=== PATIENT | female | born 1965 | race Caucasian/White ===

== ENCOUNTER 2020-03-06 14:29 | Emergency (ER) | payer MEDICAID, SELFPAY ==
[2020-03-06 15:48] VITALS: BP 155/65; PULSE 67; RESP 18; TEMP 37.9; O2SAT 100; BMI 37.7
--- NOTE | 2020-03-06 17:22 | ECG_ITS ---
Test Reason : ABDOMINAL PAIN Blood Pressure : / mmHG Vent. Rate : 068 BPM Atrial Rate : 068 BPM P-R Int : 206 ms QRS Dur : 092 ms QT Int : 418 ms P-R-T Axes : 005 079 045 degrees QTc Int : 444 ms Normal sinus rhythm Normal ECG When compared with ECG of 20-JUN-2019 11:30, No significant change was found Referred By: Syeda Cuenca Electronically Signed By:YOGI SU MD
--- NOTE | 2020-03-06 17:23 | XR_ITS ---
EXAMINATION: XR CHEST CLINICAL INFORMATION: Abdominal pain COMPARISON: CT chest 02/14/2020 TECHNIQUE: Frontal portable view of the chest was obtained. 5:24 PM FINDINGS: No significant abnormality is noted involving the heart, lungs, mediastinum, bony thorax or soft tissues. IMPRESSION: Unremarkable examination.
--- NOTE | 2020-03-06 17:53 | ED_ITS ---
HPI - Nausea/Vomiting/Diarrhea General Chief complaint: Abdominal Pain Stated complaint: ABD PAIN Time Seen by Provider: 03/06/20 17:22 Source: patient Mode of arrival: ambulatory Limitations: no limitations History of Present Illness HPI Narrative: 55-year-old female presents to the emergency department for nausea, vomiting, diarrhea and headache. She does have dialysis Thursday and Thursday and missed her last dialysis appointment because she did not feel well. She does not describe any fevers, chills, Chest pain and pressure, palpitations, abdominal distension, dysuria, hematuria, and edema. MD elicited complaint: nausea, vomiting and diarrhea Onset (ago): day(s) ( 1) Description of vomiting: watery and bilious Description of diarrhea: watery Associated nausea: Yes Associated abdominal pain: No Pain consistency: constant ( headache) Severity: moderate Pain scale (0-10): 8 Relieving factors: none Associated symptoms: denies other symptoms Related Data Previous Rx's Medication Instructions Recorded [id number]-[id number]-[id number] 1 cap PO Q8H PRN #7 cap 03/06/20 [Fioricet] Allergies Allergy/AdvReac Type Severity Reaction Status Date / Time No Known Allergies Allergy Verified 03/06/20 15:56 [No Known Allergies*] Review of Systems Review of Systems: Constitutional: positive headache, No Weight loss, No Fever, No Chills, No Night Sweats, No Fatigue, No Malaise ENT/Mouth: No Hearing loss, No Ear Pain, No Nasal Congestion, No Sinus Pain, No Hoarseness, No sore throat, No Rhinorrhea, No Swallowing Difficulty Eyes: No Eye Pain, No Swelling, No Redness, No Foreign Body, No Discharge, No Vision Changes Cardiovascular: No Chest Pain, No SOB, No Dyspnea on Exertion, No Orthopnea, No Edema, No Palpitations Respiratory: No Cough, No Sputum, No Wheezing, No Smoke Exposure, No Dyspnea Gastrointestinal: Positive Nausea, Positive Vomiting, positive Diarrhea, positive abdominal Pain, No Hematochezia, No Melena Genitourinary: no irregular bleeding, No Dysuria, No Urinary Frequency, No Hematuria, No Urinary Incontinence, No Urgency, No Flank Pain, No Urinary Flow Changes, No Hesitancy Musculoskeletal: No joint pain, No Myalgias, No Joint Swelling Skin: No Skin Lesions, No rash Neuro: No Weakness, No Numbness, No Paresthesias, No Loss of Consciousness, No Dizziness, No Headache Psych: No Anxiety/Panic, No Depression, No SI/HI/AH/VH, No Social Issues, Heme/Lymph: No Bruising, No Bleeding,No Lymphadenopathy Endocrine: No Polyuria, No Polydipsia, No Temperature Intolerance Gastrointestinal: Gastrointestinal: Reports nausea PMFSH Past Medical History Attestation statement: The following information was validated with the patient. Medical History Diabetes Dialysis patient HTN (hypertension) Renal failure (ARF), acute on chronic Social History Social History Alcohol intake: never Smoking Status: Never smoker Use of substances other than those prescribed or required for medical reasons: No Advance Directives: No Advance Directives Information Provided: No Physical Exam Vital Signs: Vital Signs: Vital Signs Temp Pulse Resp BP Pulse Ox 03/06/20 22:04 98.9 F 70 14 152/59 H 95 03/06/20 20:20 98.7 F 67 18 97/41 L 99 03/06/20 15:48 100.3 F 67 18 155/65 H 100 Body Mass Index 37.7 Appearance: Alert. Oriented X3. No acute distress. Eyes: Pupils equal, round and reactive to light. ENT: Pharynx normal. Neck: Normal inspection. Neck supple. CVS: Normal heart rate and rhythm. Pulses normal. Respiratory: No respiratory distress. Breath sounds normal. Abdomen: Soft and nontender. Skin: Skin warm and dry. Normal skin color. Normal skin turgor. Extremities: No lower extremity edema. No lower extremity edema. Neuro: Oriented X 3. No motor deficit. No sensory deficit. Course Course Course Narrative: patient did miss dialysis, is an insulin-dependent diabetic, will order Tylenol, Toradol, and Zofran. Fluids not ordered at this time because she is a dialysis patient. EKG is normal sinus, sodium 131, BUN 56, creatinine 5.5 lab values are similar to prior values. We will call out to nephrology for guidance. Discussion with Dr. Jain, review of lab values and patient presentation, plan is for patient to be discharged home and to follow-up with dialysis tomorrow. We will discharge home with Anjelica. Patient verbalized understanding of and agrees to plan of care discharge home. conference interpreter utilized for all correspondence, [employer] will translate utilized for discharge instructions. Consultations Consultation #1: Nephrology Cristobal Time: 21:27 MDM - Nausea/Vomiting/Diarrhea MDM Narrative Medical decision making narrative: Electrolyte imbalance, viral syndrome, ACS Differential Diagnosis Differential diagnosis: Likely gastroenteritis Medical Records Attestation: I reviewed the patient's medical records. Lab Data Attestation: I reviewed the patient's lab results. Result diagrams: 03/06/20 18:36 03/06/20 18:36 Labs: Lab Results 03/06/20 03/06/20 03/06/20 Range/Units 18:36 18:36 18:36 WBC 10.8 (4.8-10.8) X10*3/uL RBC 3.22 L (4.20-5.50) X10*6/uL Hgb 10.1 L (12.0-16.0) g/dl Hct 28.5 L (37-47) % MCV 88.5 (80-98) fL MCH 31.4 (27.0-33.0) pg MCHC 35.4 H (31.0-35.0) g/dl RDW 13.5 (11.0-16.0) % Plt Count 188 (160-400) X10*3/uL MPV 10.9 (9.4-12.3) fL Immature Gran % (Auto) 0.4 (0.0-0.4) % Neut % (Auto) 73.6 H (45-73) % Lymph % (Auto) 15.5 L (20-40) % Antelope % (Auto) 5.2 (2-11) % Eos % (Auto) 4.9 H (0-4) % Baso % (Auto) 0.4 (0-2) % Lymph # (Auto) 1.7 (1.2-4.9) X10*3/uL Antelope # (Auto) 0.6 (0.1-1.2) X10*3/uL Eos # (Auto) 0.5 H (0.0-0.4) X10*3/uL Baso # (Auto) 0.0 (0.0-0.2) X10*3/uL Abs Immat Gran (auto) 0.04 H (0.00-0.03) X10*3/uL Absolute Neuts (auto) 8.0 (2.0-8.3) X10*3/uL Absolute Nucleated RBC 0.000 (0.0-0.012) X10*3/uL Nucleated RBC % (auto) 0.0 (0.0-0.2) /100WBC PT 11.0 (10.8-13.0) SEC INR 0.9 (0.9-1.1) Sodium 131 L (135-145) mmol/L Potassium 4.3 (3.3-5.1) mmol/l Chloride 97 (96-108) mmol/L Carbon Dioxide 23 (22-29) mmol/L Anion Gap 15 (12-20) BUN 56 H (9-16) mg/dL Creatinine 5.55 H* (0.5-1.4) mg/dL Estim Creat Clear Calc 12.8 Estimated GFR 8 Random Glucose 292 H (60-115) mg/dL Lactic Acid (0.5-2.0) mmol/L Calcium 8.9 (8.4-10.2) mg/dL Total Bilirubin (0.0-1.0) mg/dL Direct Bilirubin (0.0-0.5) mg/dL AST (5-31) U/L ALT (0-31) U/L Alkaline Phosphatase (39-117) U/L Total Protein (6.5-8.0) g/dL Albumin (3.5-5.0) g/dL Lipase (8-78) U/L 03/06/20 03/06/20 Range/Units 18:36 18:36 WBC (4.8-10.8) X10*3/uL RBC (4.20-5.50) X10*6/uL Hgb (12.0-16.0) g/dl Hct (37-47) % MCV (80-98) fL MCH (27.0-33.0) pg MCHC (31.0-35.0) g/dl RDW (11.0-16.0) % Plt Count (160-400) X10*3/uL MPV (9.4-12.3) fL Immature Gran % (Auto) (0.0-0.4) % Neut % (Auto) (45-73) % Lymph % (Auto) (20-40) % Antelope % (Auto) (2-11) % Eos % (Auto) (0-4) % Baso % (Auto) (0-2) % Lymph # (Auto) (1.2-4.9) X10*3/uL Antelope # (Auto) (0.1-1.2) X10*3/uL Eos # (Auto) (0.0-0.4) X10*3/uL Baso # (Auto) (0.0-0.2) X10*3/uL Abs Immat Gran (auto) (0.00-0.03) X10*3/uL Absolute Neuts (auto) (2.0-8.3) X10*3/uL Absolute Nucleated RBC (0.0-0.012) X10*3/uL Nucleated RBC % (auto) (0.0-0.2) /100WBC PT (10.8-13.0) SEC INR (0.9-1.1) Sodium (135-145) mmol/L Potassium (3.3-5.1) mmol/l Chloride (96-108) mmol/L Carbon Dioxide (22-29) mmol/L Anion Gap (12-20) BUN (9-16) mg/dL Creatinine (0.5-1.4) mg/dL Estim Creat Clear Calc Estimated GFR Random Glucose (60-115) mg/dL Lactic Acid 1.0 (0.5-2.0) mmol/L Calcium (8.4-10.2) mg/dL Total Bilirubin 1.3 H (0.0-1.0) mg/dL Direct Bilirubin 0.5 (0.0-0.5) mg/dL AST 10 (5-31) U/L ALT 11 (0-31) U/L Alkaline Phosphatase 149 H (39-117) U/L Total Protein 7.5 (6.5-8.0) g/dL Albumin 4.0 (3.5-5.0) g/dL Lipase 29 (8-78) U/L Imaging Data Chest x-ray: Attestation: I personally reviewed and interpreted this imaging study as follows: Radiologist's impression: TECHNIQUE: Frontal portable view of the chest was obtained. 5:24 PM FINDINGS: No significant abnormality is noted involving the heart, lungs, mediastinum, bony thorax or soft tissues. IMPRESSION: Unremarkable examination. ECG Data Attestation: I personally reviewed and interpreted this ECG as follows: ECG interpretation date: 03/06/20 ECG interpretation time: 17:40 Interpretation: Vent. Rate : 068 BPM Atrial Rate : 068 BPM P-R Int : 206 ms QRS Dur : 092 ms QT Int : 418 ms P-R-T Axes : 005 079 045 degrees QTc Int : 444 ms Normal sinus rhythm Anterior infarct , age undetermined Abnormal ECG When compared with ECG of 20-JUN-2019 11:30, No significant change was found Discharge Plan Discharge Clinical Impression: Headache, End stage renal disease on dialysis Patient Disposition: Home, Self-Care Instructions: Acute Headache (ED), End Stage Kidney Disease (ED) Additional Instructions: please follow-up with dialysis tomorrow. For headache, use Fioricet as needed. If symptoms persist follow-up with primary care provider or return to the emergency department Thank you for choosing this emergency department for evaluation. Please follow-up with primary care physician as needed. Return to the emergency de partment for any new, concerning, or worsening symptoms. Prescriptions: New riggcinrcm-vugjnqsvgpqwh-mhar [Fioricet] 50-300-40 mg capsule 1 cap PO Q8H PRN (Reason: pain) Qty: 7 RF: 0 Interventions: ED Discharge Assessment Last Done: 03/06/20 22:10 Discharge Date/Time: 03/06/20 22:11
--- NOTE | 2020-03-06 18:33 | PC.NURSE ---
two attempts at iv access unsuccessful, has fistula in l arm. provider aware. pct in to draw labs.
[2020-03-06 18:46] LABS: Basophils Percent Auto 0.4 % (0-2); Eosinophils Absolute Auto 0.5 X10*3/uL (0.0-0.4); Eosinophils Percent Auto 4.9 % (0-4); Hematocrit 28.5 % (37-47); Hemoglobin 10.1 g/dl (12.0-16.0); Imm Gran Abs Auto 0.04 X10*3/uL (0.00-0.03); Imm Gran Pct Auto 0.4 % (0.0-0.4); Lymphocytes Absolute Auto 1.7 X10*3/uL (1.2-4.9); Lymphocytes Percent Auto 15.5 % (20-40); MANUAL DIFF FLAG NO; Mean Corpuscular HGB Conc 35.4 g/dl (31.0-35.0); Mean Corpuscular Hemoglobin 31.4 pg (27.0-33.0); Mean Corpuscular Volume 88.5 fL (80-98); Mean Platelet Volume 10.9 fL (9.4-12.3); Monocytes Absolute Auto 0.6 X10*3/uL (0.1-1.2); Monocytes Percent Auto 5.2 % (2-11); Neutrophils Percent Auto 73.6 % (45-73); Platelet Count 188 X10*3/uL (160-400); Red Blood Count 3.22 X10*6/uL (4.20-5.50); Red Cell Distribution Width 13.5 % (11.0-16.0); White Blood Count 10.8 X10*3/uL (4.8-10.8)
[2020-03-06 18:54] LABS: INTERNATIONAL NORM RATIO 0.9 (0.9-1.1)
[2020-03-06 19:11] LABS: Alanine Aminotransferase 11 U/L (0-31); Alkaline Phosphatase 149 U/L (39-117); Aspartate Amino Transferase 10 U/L (5-31); Bilirubin Direct 0.5 mg/dL (0.0-0.5); Bilirubin Total 1.3 mg/dL (0.0-1.0); Lipase 29 U/L (8-78); Total Protein 7.5 g/dL (6.5-8.0)
[2020-03-06 19:56] LABS: Anion Gap 15 (12-20); Blood Urea Nitrogen 56 mg/dL (9-16); Calcium 8.9 mg/dL (8.4-10.2); Carbon Dioxide 23 mmol/L (22-29); Chloride 97 mmol/L (96-108); Creatinine Clr Calc Pharmacy 12.8; Estimated Glomerular Filt Rate 8; Glucose Random 292 mg/dL (60-115); Potassium 4.3 mmol/l (3.3-5.1); Sodium 131 mmol/L (135-145)
[2020-03-06 20:20] VITALS: BP 97/41; PULSE 67; RESP 18; TEMP 37.1; O2SAT 99
[2020-03-06] MEDS: Ketorolac Tromethamine 30 MG/ML VIAL IV (20:24)
[2020-03-06] MEDS: Acetaminophen 325 MG TABLET 650 MG PO (20:24)
[2020-03-06] MEDS: ondansetron HCL 4 MG/2 ML VIAL IVPUSH (20:24)
[2020-03-06 22:04] VITALS: BP 152/59; PULSE 70; RESP 14; TEMP 37.2; O2SAT 95
== END 2020-03-06 22:11 | disposition home or self-care (01) ==
PROVIDERS: Nurse Practitioner Family; Emergency Provider Internal Medicine; PCP Internal Medicine
DX: R51.9 Headache, unspecified (principal); E11.22 Type 2 diabetes mellitus with diabetic chronic kidney disease; I12.0 Hypertensive chronic kidney disease with stage 5 chronic kidney disease or end stage renal disease; N18.6 End stage renal disease; Z99.2 Dependence on renal dialysis
CPT/HCPCS: 36415; 71045; 80048; 80076; 83605; 83690; 85025; 85610; 87040; 93005; 96361; 96374; 96375; 96376; 99284; J1885; J2405

== ENCOUNTER 2020-03-10 18:17 | Emergency (ER) | payer MEDICAID, SELFPAY ==
[2020-03-10 19:11] VITALS: BP 183/67; PULSE 77; RESP 18; TEMP 36.6; O2SAT 100; BMI 37.7
[2020-03-10 20:20] VITALS: BP 117/65; PULSE 81; RESP 18; TEMP 36.8; O2SAT 98
--- NOTE | 2020-03-10 20:31 | ECG_ITS ---
Test Reason : HEDACHE Blood Pressure : / mmHG Vent. Rate : 076 BPM Atrial Rate : 076 BPM P-R Int : 208 ms QRS Dur : 088 ms QT Int : 400 ms P-R-T Axes : 043 081 035 degrees QTc Int : 450 ms Normal sinus rhythm Possible Left atrial enlargement Borderline ECG When compared with ECG of 06-MAR-2020 17:40, No significant change was found Referred By: Tresa Ashraf Electronically Signed By:YOGI SU MD
--- NOTE | 2020-03-10 20:33 | CT_ITS ---
EXAMINATION: CT HEAD WITHOUT CONTRAST CLINICAL INFORMATION: Continued headache after trauma COMPARISON: 02/14/2020 TECHNIQUE: Contiguous axial imaging was performed from the skull base to vertex without intravenous administration of contrast. This CT examination was performed using dose optimization techniques as appropriate, variously including the following: *Automated exposure control *Adjustment of mA and/or kV according to patient size (this includes techniques or standardized protocols for targeted exams where dose is matched to indication/reason for exam; i.e. extremities or head) *Use of iterative reconstruction technique DLP: 879 mGy-cm FINDINGS: There is no evidence of acute intracranial hemorrhage or territorial infarction. No abnormal mass effect or midline shift is seen. [place] to white matter differentiation is well preserved. No extra-axial fluid collections are identified. The ventricles are normal in size. There is no abnormal attenuation within the brain parenchyma. The osseous structures and soft tissues are normal. The mastoid air cells and visualized portions of the paranasal sinuses are well aerated. IMPRESSION: No acute intracranial pathology.
[2020-03-10] MEDS: Acetaminophen 325 MG TABLET 650 MG PO (21:23)
[2020-03-10] MEDS: diphenhydrAMINE HCL 50 MG/ML VIAL 25 MG IVPUSH (21:25)
[2020-03-10] MEDS: 0.9 % Sodium Chloride 1,000 ML 999 ML IVCONT (21:26)
[2020-03-10 21:33] LABS: Basophils Percent Auto 0.4 % (0-2); Eosinophils Absolute Auto 0.6 X10*3/uL (0.0-0.4); Eosinophils Percent Auto 6.4 % (0-4); Hematocrit 27.4 % (37-47); Hemoglobin 9.1 g/dl (12.0-16.0); Imm Gran Abs Auto 0.06 X10*3/uL (0.00-0.03); Imm Gran Pct Auto 0.6 % (0.0-0.4); Lymphocytes Absolute Auto 1.9 X10*3/uL (1.2-4.9); Lymphocytes Percent Auto 20.6 % (20-40); Mean Corpuscular HGB Conc 33.2 g/dl (31.0-35.0); Mean Corpuscular Hemoglobin 31.1 pg (27.0-33.0); Mean Corpuscular Volume 93.5 fL (80-98); Mean Platelet Volume 10.4 fL (9.4-12.3); Monocytes Absolute Auto 0.6 X10*3/uL (0.1-1.2); Monocytes Percent Auto 6.3 % (2-11); Neutrophils Absolute Auto 6.1 X10*3/uL (2.0-8.3); Neutrophils Percent Auto 65.7 % (45-73); Platelet Count 217 X10*3/uL (160-400); Red Blood Count 2.93 X10*6/uL (4.20-5.50); Red Cell Distribution Width 13.7 % (11.0-16.0); White Blood Count 9.3 X10*3/uL (4.8-10.8)
[2020-03-10] MEDS: Metoclopramide HCl 10 MG/2 ML VIAL IVPUSH ×2 (21:33→22:34)
[2020-03-10 21:34] LABS: MANUAL DIFF FLAG NO
[2020-03-10 22:07] LABS: Alanine Aminotransferase 12 U/L (0-31); Albumin Level 3.7 g/dL (3.5-5.0); Alkaline Phosphatase 148 U/L (39-117); Anion Gap 13 (12-20); Aspartate Amino Transferase 17 U/L (5-31); Bilirubin Direct 0.2 mg/dL (0.0-0.5); Bilirubin Total 0.4 mg/dL (0.0-1.0); Blood Urea Nitrogen 37 mg/dL (9-16); Calcium 8.8 mg/dL (8.4-10.2); Carbon Dioxide 29 mmol/L (22-29); Chloride 101 mmol/L (96-108); Creatinine Clr Calc Pharmacy 17.1; Estimated Glomerular Filt Rate 11; Glucose Random 218 mg/dL (60-115); Magnesium 1.9 mg/dL (1.6-2.6); Potassium 4.8 mmol/l (3.3-5.1); Sodium 138 mmol/L (135-145); Total Protein 6.9 g/dL (6.5-8.0)
[2020-03-10 22:12] LABS: Troponin-I High Sensitivity 90.2 ng/L (<3.5-17.0)
[2020-03-10] MEDS: Lidocaine HCl 1 % 20 ML VIAL SUBCUT (22:23)
--- NOTE | 2020-03-10 22:36 | PC.NURSE ---
dr camacho at bedside placed 18g eg r side. pt tolerated well
[2020-03-10 22:47] VITALS: BP 192/68; PULSE 85; RESP 16; O2SAT 95
[2020-03-10 23:11] LABS: Glucose Urine UA 250 MG/DL (NEG); Leukocyte Esterase Urine NEG (NEG); Nitrite Urine NEG (NEG); PH 7.5 (5.0-8.0); Urine Blood TRACE (NEG); Urine Ketones NEG (NEG); Urine Protein 2+ MG/DL (NEG-TRACE)
[2020-03-10 23:14] LABS: Appearance Urine CLEAR; Color Urine YELLOW
[2020-03-10 23:27] LABS: Bacteria Urine 1+ /LPF; Mucus Urine 1+ /LPF; Squamous Epithelial Cell Urine 1+ /LPF
--- NOTE | 2020-03-10 23:33 | ED_ITS ---
HPI - Headache General Chief Complaint: Headache <ADRIAN Wiggins - Last Filed: 03/11/20 01:05> Stated Complaint: HEADACHE <ADRIAN Wiggins - Last Filed: 03/11/20 01:05> Time Seen by Provider: 03/10/20 19:52 <ADRIAN Wiggins - Last Filed: 03/11/20 01:05> Source: patient <ADRIAN Wiggins Last Filed: 03/11/20 01:05> Mode of arrival: ambulatory <ADRIAN Wiggins Last Filed: 03/11/20 01:05> History of Present Illness HPI Narrative: 55 year old female with a PMH diabetes, CKD on HD M/W/F, HTN, presenting to ED complaining of continued/ worsening headache x 1 week S/P fall with head trauma on 02/13. Patient reports she was seen and treated in the ED on 02/13 after mechanical fall, had negative head CT & CT chest, however reports continued pain with generalized fatigue and lightheadedness. Patient was also evaluated in the ED on 03/06 for similar complaints was discharged home with Fioricet which she has been taking without relief. Denies visual changes / loss, nausea /vomiting, CP/SOB, numbness/ tingling, paresthesias <ADRIAN Wiggins - Last Filed: 03/11/20 01:05> MD elicited complaint: headache <ADRIAN Wiggins - Last Filed: 03/11/20 01:05> Pertinent past history: recent trauma <ADRIAN Wiggins Last Filed: 03/11/20 01:05> Related Data Home Medications: Previous Rx's Medication Instructions Recorded [id number]-ymlgvvmvgfsyx-tnpn 1 cap PO Q8H PRN #7 cap 03/06/20 [Fioricet] meclizine 25 mg PO TID PRN #14 tab 03/11/20 <ADRIAN Wiggins - Last Filed: 03/11/20 01:05> Allergies/Adverse Reactions: Allergies Allergy/AdvReac Type Severity Reaction Status Date / Time No Known Allergies Allergy Verified 03/06/20 15:56 [No Known Allergies*] <ADRIAN Wiggins - Last Filed: 03/11/20 01:05> Review of Systems Review of Systems: Constitutional: No Weight loss, No Fever, No Chills, No Night Sweats, No Fatigue, No Malaise ENT/Mouth: No Hearing loss, No Ear Pain, No Nasal Congestion, No Sinus Pain, No sore throat Eyes: No Eye Pain, No Foreign Body, No Discharge, No Vision Changes Cardiovascular: No Chest Pain, No SOB, No Dyspnea on Exertion Respiratory: No Cough, No Sputum, No Wheezing Gastrointestinal: No Nausea, No Vomiting, No Diarrhea, No Abdominal pain Musculoskeletal: No joint pain, No Myalgias, No Joint Swelling Skin: No Skin Lesions, No rash Neuro: No Weakness, No Numbness, No Paresthesias, No Loss of Consciousness,+ lightheadedness, +Headache <ADRIAN Wiggins - Last Filed: 03/11/20 01:05> Yes all other systems are reviewed and are negative <ADRIAN Wiggins - Last Filed: 03/11/20 01:05> Neurologic: Denies Sensory deficit (Neuro) <ADRIAN Wiggins - Last Filed: 03/11/20 01:05> [facility] Past Medical History Attestation statement: The following information was validated with the patient. <ADRIAN Wiggins - Last Filed: 03/11/20 01:05> Source: old records reviewed, obtained from family and nursing notes reviewed <ADRIAN Wiggins - Last Filed: 03/11/20 01:05> Medical History: Medical History Diabetes Dialysis patient HTN (hypertension) Renal failure (ARF), acute on chronic <ADRIAN Wiggins - Last Filed: 03/11/20 01:05> Social History Social History: Social History Alcohol intake: never Smoking Status: Never smoker Use of substances other than those prescribed or required for medical reasons: No Advance Directives: No Advance Directives Information Provided: Yes <ADRIAN Wiggins - Last Filed: 03/11/20 01:05> Physical Exam Vital Signs: Vital Signs: Vital Signs Temp Pulse Resp BP Pulse Ox 03/11/20 00:12 182/77 H 95 03/10/20 22:47 85 16 192/68 H 95 03/10/20 20:20 98.2 F 81 18 117/65 98 03/10/20 19:11 97.8 F 77 18 183/67 H 100 Body Mass Index 37.7 <ADRIAN Wiggins - Last Filed: 03/11/20 01:05> Vital Signs: Vital Signs Temp Pulse Resp BP Pulse Ox 03/11/20 00:12 182/77 H 95 03/10/20 22:47 85 16 192/68 H 95 03/10/20 20:20 98.2 F 81 18 117/65 98 03/10/20 19:11 97.8 F 77 18 183/67 H 100 Body Mass Index 37.7 <Mary Tidwell MD - Last Filed: 03/11/20 03:17> Const: General: cooperative and healthy appearing <ADRIAN Wiggins - Last Filed: 03/11/20 01:05> Orientation/consciousness: patient oriented x3 <ADRIAN Wiggins - Last Filed: 03/11/20 01:05> Limitations: no limitations <ADRIAN Wiggins - Last Filed: 03/11/20 01:05> HENMT: Head: Yes normal to inspection and Yes No palpable skull fracture present <ADRIAN Wiggins - Last Filed: 03/11/20 01:05> Ears: hearing grossly normal bilaterally <ADRIAN Wiggins - Last Filed: 1 01:05> General nose exam: Normal external nose present <ADRIAN Wiggins - Last Filed: 03/11/20 01:05> Face and sinus: Yes normal facial exam <ADRIAN Wiggins - Last Filed: 03/11/20 01:05> Mouth: Normal oral and palatal mucosa present <ADRIAN Wiggins - Last Filed: 03/11/20 01:05> Throat: Yes posterior oropharynx normal <ADRIAN Wiggins - Last Filed: 03/11/20 01:05> Eyes: General: appearance normal, both eyes and all related structures <ADRIAN Wiggins - Last Filed: 03/11/20 01:05> Pupils: Equal, round and reactive pupils present <ADRIAN Wiggins - Last Filed: 03/11/20 01:05> EOM: EOMs intact bilaterally <Tresa Ashraf, [facility] Last Filed: 03/11/20 01:05> Neck: Neck: Yes normal visual inspection, Yes full ROM and Yes no meningeal signs <Tresadagoberto Ashraf [place] - Last Filed: 03/11/20 01:05> Resp: Effort & Inspection: normal respiratory effort <Tresa Pascale [facility] Last Filed: 03/11/20 01:05> Auscultation: clear to auscultation bilaterally, no crackles, no rales and no r honchi <Tresadagoberto Ashraf [place] - Last Filed: 03/11/20 01:05> Cardio: Rate: regular rate <Tresa Ashraf [facility] Last Filed: 03/11/20 01:05> Heart sounds: S1 normal heart sound present and S2 normal heart sound present <Tresadagoberto Ashraf GA - Last Filed: 03/11/20 01:05> GI: Inspection: Yes normal to inspection <Tresa Ashraf GA - Last Filed: 03/11/20 01:05> Palpation (GI): Soft to palpation, nontender, no guarding and not rigid <Tresa Ashraf GA - Last Filed: 03/11/20 01:05> Skin: Rashes: no rashes <Tresa Ashraf [facility] Last Filed: 03/11/20 01:05> Wounds: no wounds <Tresa Pascale GA - Last Filed: 03/11/20 01:05> Neuro: General: patient oriented x3, tone normal, moves all extremities, no meningeal signs, no focal motor deficits and CN's II-XI intact bilaterally <Tresa Ashraf GA - Last Filed: 03/11/20 01:05> Cranial nerves: Yes Equal, round and reactive pupils present <Tresa Ashraf [facility] Last Filed: 03/11/20 01:05> Motor exam (neuro): 5/5 motor strength present throughout <Tresa Ashraf GA - Last Filed: 03/11/20 01:05> Sensory Exam: No Sensory deficit (Neuro) <Tresa Ashraf [facility] Last Filed: 03/11/20 01:05> Extrem: General: Yes normal to inspection <Tresa Ashraf GA - Last Filed: 03/11/20 01:05> Course Course Course Narrative: 2341-- troponin 90.2, likely from ARF > will obtain 3 hour repeat. Labs otherwise the patient's baseline - UA negative. Head CT without acute intracranial pathology -0030-- on re-evaluation patient reports symptomatic improvement in the ED, is sleeping comfortably. Lab/imaging results discussed. -0104-- repeat troponin 79.1 > SD unlikely. Will DC patient home which patient verbalized understanding and feels safe for discharge <ADRIAN Wiggins - Last Filed: 03/11/20 01:05> MDM - Headache MDM Narrative Medical decision making narrative: 55 year old female with a PMH diabetes, CKD on HD M/W/F, HTN, presenting to ED complaining of continued/ worsening headache x 1 week S/P fall with head trauma on 02/13. On exam VSS, NAD/ nontoxic appearing, no focal neuro deficits. Likely post concussive syndrome vs migraine headache vs viral syndrome. Low concern for meningitis /encephalitis, SAH/ intracranial pathology. Rule out metabolic abnormalities. Plan: EKG, labs, symptomatic treatment, reassess. Patient requesting repeat head CT which we will obtain <ADRIAN Wiggins - Last Filed: 03/11/20 01:05> Lab Data Result diagrams: : 03/10/20 21:29 03/10/20 21:29 <ADRIAN Wiggins - Last Filed: 03/11/20 01:05> Labs: Lab Results 03/10/20 03/10/20 03/10/20 Range/Units 21:29 21:29 21:29 WBC 9.3 (4.8-10.8) X10*3/uL RBC 2.93 L (4.20-5.50) X10*6/uL Hgb 9.1 L (12.0-16.0) g/dl Hct 27.4 L (37-47) % MCV 93.5 D (80-98) fL MCH 31.1 (27.0-33.0) pg MCHC 33.2 (31.0-35.0) g/dl RDW 13.7 (11.0-16.0) % Plt Count 217 (160-400) X10*3/uL MPV 10.4 (9.4-12.3) fL Immature Gran % (Auto) 0.6 H (0.0-0.4) % Neut % (Auto) 65.7 (45-73) % Lymph % (Auto) 20.6 (20-40) % Ware % (Auto) 6.3 (2-11) % Eos % (Auto) 6.4 H (0-4) % Baso % (Auto) 0.4 (0-2) % Lymph # (Auto) 1.9 (1.2-4.9) X10*3/uL Ware # (Auto) 0.6 (0.1-1.2) X10*3/uL Eos # (Auto) 0.6 H (0.0-0.4) X10*3/uL Baso # (Auto) 0.0 (0.0-0.2) X10*3/uL Abs Immat Gran (auto) 0.06 H (0.00-0.03) X10*3/uL Absolute Neuts (auto) 6.1 (2.0-8.3) X10*3/uL Absolute Nucleated RBC 0.000 (0.0-0.012) X10*3/uL Nucleated RBC % (auto) 0.0 (0.0-0.2) /100WBC Hold Blue Top SEE NOTE Sodium 138 (135-145) mmol/L Potassium 4.8 (3.3-5.1) mmol/l Chloride 101 (96-108) mmol/L Carbon Dioxide 29 (22-29) mmol/L Anion Gap 13 (12-20) BUN 37 H (9-16) mg/dL Creatinine 4.16 H* (0.5-1.4) mg/dL Estim Creat Clear Calc 17.1 Estimated GFR 11 Random Glucose 218 H (60-115) mg/dL Calcium 8.8 (8.4-10.2) mg/dL Magnesium 1.9 (1.6-2.6) mg/dL Total Bilirubin 0.4 (0.0-1.0) mg/dL Direct Bilirubin 0.2 (0.0-0.5) mg/dL AST 17 D (5-31) U/L ALT 12 (0-31) U/L Alkaline Phosphatase 148 H (39-117) U/L Troponin I High Sens (<3.5-17.0) ng/L Total Protein 6.9 (6.5-8.0) g/dL Albumin 3.7 (3.5-5.0) g/dL Urine Color Urine Appearance Urine pH (5.0-8.0) Ur Specific [place] (1.005-1.025) Urine Protein (NEG-TRACE) MG/DL Urine Glucose (UA) (NEG) MG/DL Urine Ketones (NEG) MG/DL Urine Blood (NEG) Urine Nitrite (NEG) Ur Leukocyte Esterase (NEG) Urine RBC (0) /HPF Urine WBC (0-4) /HPF Ur Squamous Epith Cells /LPF Urine Bacteria /LPF Hyaline Casts /LPF Urine Mucus /LPF Urine Yeast /HPF 03/10/20 03/10/20 03/11/20 Range/Units 21:29 22:47 00:20 WBC (4.8-10.8) X10*3/uL RBC (4.20-5.50) X10*6/uL Hgb (12.0-16.0) g/dl Hct (37-47) % MCV (80-98) fL MCH (27.0-33.0) pg MCHC (31.0-35.0) g/dl RDW (11.0-16.0) % Plt Count (160-400) X10*3/uL MPV (9.4-12.3) fL Immature Gran % (Auto) (0.0-0.4) % Neut % (Auto) (45-73) % Lymph % (Auto) (20-40) % Ware % (Auto) (2-11) % Eos % (Auto) (0-4) % Baso % (Auto) (0-2) % Lymph # (Auto) (1.2-4.9) X10*3/uL Ware # (Auto) (0.1-1.2) X10*3/uL Eos # (Auto) (0.0-0.4) X10*3/uL Baso # (Auto) (0.0-0.2) X10*3/uL Abs Immat Gran (auto) (0.00-0.03) X10*3/uL Absolute Neuts (auto) (2.0-8.3) X10*3/uL Absolute Nucleated RBC (0.0-0.012) X10*3/uL Nucleated RBC % (auto) (0.0-0.2) /100WBC Hold Blue Top Sodium (135-145) mmol/L Potassium (3.3-5.1) mmol/l Chloride (96-108) mmol/L Carbon Dioxide (22-29) mmol/L Anion Gap (12-20) BUN (9-16) mg/dL Creatinine (0.5-1.4) mg/dL Estim Creat Clear Calc Estimated GFR Random Glucose (60-115) mg/dL Calcium (8.4-10.2) mg/dL Magnesium (1.6-2.6) mg/dL Total Bilirubin (0.0-1.0) mg/dL Direct Bilirubin (0.0-0.5) mg/dL AST (5-31) U/L ALT (0-31) U/L Alkaline Phosphatase (39-117) U/L Troponin I High Sens 90.2 H 79.1 H (<3.5-17.0) ng/L Total Protein (6.5-8.0) g/dL Albumin (3.5-5.0) g/dL Urine Color YELLOW Urine Appearance CLEAR Urine pH 7.5 (5.0-8.0) Ur Specific [place] 1.020 (1.005-1.025) Urine Protein 2+ H (NEG-TRACE) MG/DL Urine Glucose (UA) 250 H (NEG) MG/DL Urine Ketones NEG (NEG) MG/DL Urine Blood TRACE (NEG) Urine Nitrite NEG (NEG) Ur Leukocyte Esterase NEG (NEG) Urine RBC 10-14 H (0) /HPF Urine WBC 1-4 (0-4) /HPF Ur Squamous Epith Cells 1+ /LPF Urine Bacteria 1+ /LPF Hyaline Casts 1-4 /LPF Urine Mucus 1+ /LPF Urine Yeast 1+ /HPF <ADRIAN Wiggins - Last Filed: 03/11/20 01:05> Lab Results 03/10/20 03/10/20 03/10/20 Range/Units 21:29 21:29 21:29 WBC 9.3 (4.8-10.8) X10*3/uL RBC 2.93 L (4.20-5.50) X10*6/uL Hgb 9.1 L (12.0-16.0) g/dl Hct 27.4 L (37-47) % MCV 93.5 D (80-98) fL MCH 31.1 (27.0-33.0) pg MCHC 33.2 (31.0-35.0) g/dl RDW 13.7 (11.0-16.0) % Plt Count 217 (160-400) X10*3/uL MPV 10.4 (9.4-12.3) fL Immature Gran % (Auto) 0.6 H (0.0-0.4) % Neut % (Auto) 65.7 (45-73) % Lymph % (Auto) 20.6 (20-40) % Ware % (Auto) 6.3 (2-11) % Eos % (Auto) 6.4 H (0-4) % Baso % (Auto) 0.4 (0-2) % Lymph # (Auto) 1.9 (1.2-4.9) X10*3/uL Ware # (Auto) 0.6 (0.1-1.2) X10*3/uL Eos # (Auto) 0.6 H (0.0-0.4) X10*3/uL Baso # (Auto) 0.0 (0.0-0.2) X10*3/uL Abs Immat Gran (auto) 0.06 H (0.00-0.03) X10*3/uL Absolute Neuts (auto) 6.1 (2.0-8.3) X10*3/uL Absolute Nucleated RBC 0.000 (0.0-0.012) X10*3/uL Nucleated RBC % (auto) 0.0 (0.0-0.2) /100WBC Hold Blue Top SEE NOTE Sodium 138 (135-145) mmol/L Potassium 4.8 (3.3-5.1) mmol/l Chloride 101 (96-108) mmol/L Carbon Dioxide 29 (22-29) mmol/L Anion Gap 13 (12-20) BUN 37 H (9-16) mg/dL Creatinine 4.16 H* (0.5-1.4) mg/dL Estim Creat Clear Calc 17.1 Estimated GFR 11 Random Glucose 218 H (60-115) mg/dL Calcium 8.8 (8.4-10.2) mg/dL Magnesium 1.9 (1.6-2.6) mg/dL Total Bilirubin 0.4 (0.0-1.0) mg/dL Direct Bilirubin 0.2 (0.0-0.5) mg/dL AST 17 D (5-31) U/L ALT 12 (0-31) U/L Alkaline Phosphatase 148 H (39-117) U/L Troponin I High Sens (<3.5-17.0) ng/L Total Protein 6.9 (6.5-8.0) g/dL Albumin 3.7 (3.5-5.0) g/dL Urine Color Urine Appearance Urine pH (5.0-8.0) Ur Specific [place] (1.005-1.025) Urine Protein (NEG-TRACE) MG/DL Urine Glucose (UA) (NEG) MG/DL Urine Ketones (NEG) MG/DL Urine Blood (NEG) Urine Nitrite (NEG) Ur Leukocyte Esterase (NEG) Urine RBC (0) /HPF Urine WBC (0-4) /HPF Ur Squamous Epith Cells /LPF Urine Bacteria /LPF Hyaline Casts /LPF Urine Mucus /LPF Urine Yeast /HPF 03/10/20 03/10/20 03/11/20 Range/Units 21:29 22:47 00:20 WBC (4.8-10.8) X10*3/uL RBC (4.20-5.50) X10*6/uL Hgb (12.0-16.0) g/dl Hct (37-47) % MCV (80-98) fL MCH (27.0-33.0) pg MCHC (31.0-35.0) g/dl RDW (11.0-16.0) % Plt Count (160-400) X10*3/uL MPV (9.4-12.3) fL Immature Gran % (Auto) (0.0-0.4) % Neut % (Auto) (45-73) % Lymph % (Auto) (20-40) % Ware % (Auto) (2-11) % Eos % (Auto) (0-4) % Baso % (Auto) (0-2) % Lymph # (Auto) (1.2-4.9) X10*3/uL [place] # (Auto) (0.1-1.2) X10*3/uL Eos # (Auto) (0.0-0.4) X10*3/uL Baso # (Auto) (0.0-0.2) X10*3/uL Abs Immat Gran (auto) (0.00-0.03) X10*3/uL Absolute Neuts (auto) (2.0-8.3) X10*3/uL Absolute Nucleated RBC (0.0-0.012) X10*3/uL Nucleated RBC % (auto) (0.0-0.2) /100WBC Hold Blue Top Sodium (135-145) mmol/L Potassium (3.3-5.1) mmol/l Chloride (96-108) mmol/L Carbon Dioxide (22-29) mmol/L Anion Gap (12-20) BUN (9-16) mg/dL Creatinine (0.5-1.4) mg/dL Estim Creat Clear Calc Estimated GFR Random Glucose (60-115) mg/dL Calcium (8.4-10.2) mg/dL Magnesium (1.6-2.6) mg/dL Total Bilirubin (0.0-1.0) mg/dL Direct Bilirubin (0.0-0.5) mg/dL AST (5-31) U/L ALT (0-31) U/L Alkaline Phosphatase (39-117) U/L Troponin I High Sens 90.2 H 79.1 H (<3.5-17.0) ng/L Total Protein (6.5-8.0) g/dL Albumin (3.5-5.0) g/dL Urine Color YELLOW Urine Appearance CLEAR Urine pH 7.5 (5.0-8.0) Ur Specific [place] 1.020 (1.005-1.025) Urine Protein 2+ H (NEG-TRACE) MG/DL Urine Glucose (UA) 250 H (NEG) MG/DL Urine Ketones NEG (NEG) MG/DL Urine Blood TRACE (NEG) Urine Nitrite NEG (NEG) Ur Leukocyte Esterase NEG (NEG) Urine RBC 10-14 H (0) /HPF Urine WBC 1-4 (0-4) /HPF Ur Squamous Epith Cells 1+ /LPF Urine Bacteria 1+ /LPF Hyaline Casts 1-4 /LPF Urine Mucus 1+ /LPF Urine Yeast 1+ /HPF <Mary Tidwell MD - Last Filed: 03/11/20 03:17> Discharge Plan Discharge Clinical Impression: Headache, Postconcussion syndrome <ADRIAN Wiggins - Last Filed: 03/11/20 01:05> Patient Disposition: Home, Self-Care <ADRIAN Wiggins Last Filed: 03/11/20 01:05> Instructions: Acute Headache (ED), Post Concussion Syndrome (ED) <ADRIAN Wiggins - Last Filed: 03/11/20 01:05> Additional Instructions: your blood work and head CT were unremarkable today in the ED Continue taking previously prescribed medications Meclizine as an antinausea/dizziness medication, take as needed Follow-up with her doctor and for your scheduled dialysis Make sure your staying hydrated at home You likely have a post concussive syndrome practice brain rest, avoid excessive lights /TV screen/computer screen/phones if her symptoms persist or worsen, you have constant worsening headache, dizziness /lightheadedness, chest pain or shortness of breath return to the ED follow-up with her doctor <ADRIAN Wiggins - Last Filed: 03/11/20 01:05> Prescriptions: New meclizine 25 mg tablet 25 mg PO TID PRN (Reason: dizziness) Qty: 14 RF: 0 No Action [id number]-yxwkyjwritvjd-brhp [Fioricet] 50-300-40 mg capsule 1 cap PO Q8H PRN (Reason: pain) Qty: 7 RF: 0 <ADRIAN Wiggins - Last Filed: 03/11/20 01:05> Referrals: Faith Mason MD [Primary Care Provider] - 2 days <ADRIAN Wiggins Last Filed: 03/11/20 01:05> Interventions: ED Discharge Assessment Last Done: 03/11/20 01:15 <ADRIAN Wiggins - Last Filed: 03/11/20 01:05> Discharge Date/Time: 03/11/20 01:34 <ADRIAN Wiggins Last Filed: 03/11/20 01:05> Print Language: Montenegrin <ADRIAN iWggins Last Filed: 03/11/20 01:05>
[2020-03-11 00:12] VITALS: BP 182/77; O2SAT 95
[2020-03-11 01:02] LABS: Troponin-I High Sensitivity 79.1 ng/L (<3.5-17.0)
== END 2020-03-11 01:34 | disposition home or self-care (01) ==
PROVIDERS: Physician Assistant; Emergency Provider Emergency Medicine; PCP Internal Medicine
DX: R51.9 Headache, unspecified (principal); F07.81 Postconcussional syndrome; E11.22 Type 2 diabetes mellitus with diabetic chronic kidney disease; I12.0 Hypertensive chronic kidney disease with stage 5 chronic kidney disease or end stage renal disease; N18.6 End stage renal disease; Z99.2 Dependence on renal dialysis
CPT/HCPCS: 36415; 70450; 80048; 80076; 81001; 83735; 84484; 85025; 93005; 96361; 96374; 96375; 99284; J1200; J2765

== ENCOUNTER → 2020-04-25 10:44 | Outpatient (BNVA) | payer MEDICAID, SELFPAY | PROVIDERS: PCP Internal Medicine; Referring Provider Internal Medicine; Visit Provider Internal Medicine | DX: Z13.89 Encounter for screening for other disorder (principal) ==

== ENCOUNTER 2020-07-23 07:37 | Outpatient (REF) | payer MEDICAID, SELFPAY ==
[2020-07-23 10:37] LABS: Alanine Aminotransferase 18 U/L (0-31); Alkaline Phosphatase 138 U/L (39-117); Anion Gap 17 (12-20); Aspartate Amino Transferase 14 U/L (5-31); Bilirubin Total 0.6 mg/dL (0.0-1.0); Blood Urea Nitrogen 51 mg/dL (9-16); Carbon Dioxide 27 mmol/L (22-29); Chloride 99 mmol/L (96-108); Cholesterol 92 mg/dL; Estimated Glomerular Filt Rate 7; Glucose Random 130 mg/dL (60-115); HDL Cholesterol 33 mg/dL; LDL Cholesterol Calculated 30 mg/dl; Potassium 4.4 mmol/L (3.3-5.1); Sodium 139 mmol/L (135-145); Total Protein 7.3 g/dL (6.5-8.0); Triglycerides 149 mg/dL
[2020-07-23 11:13] LABS: Creatinine Urine 140.39 mg/dL
[2020-07-23 11:33] LABS: Microalbum/Creatinine Ratio Ur 419.5 ug/mg cr
[2020-07-24 21:12] LABS: LDL Cholesterol Direct 35 mg/dL (<100)
== END 2020-07-23 07:38 | disposition home or self-care (01) ==
LOC: HO.LAB 07:37
PROVIDERS: PCP Internal Medicine; Visit Provider Internal Medicine
DX: E11.65 Type 2 diabetes mellitus with hyperglycemia (principal); I12.0 Hypertensive chronic kidney disease with stage 5 chronic kidney disease or end stage renal disease; E11.22 Type 2 diabetes mellitus with diabetic chronic kidney disease; N18.6 End stage renal disease; E11.40 Type 2 diabetes mellitus with diabetic neuropathy, unspecified; E78.5 Hyperlipidemia, unspecified; Z79.4 Long term (current) use of insulin; Z99.2 Dependence on renal dialysis
CPT/HCPCS: 36415; 80053; 80061; 82043; 82947; 83721; 99212

== ENCOUNTER 2020-07-31 03:05 | Emergency (ER) | payer MEDICAID, SELFPAY ==
--- NOTE | ~2020-07-31 | XR_ITS ---
EXAMINATION: XR CHEST CLINICAL INFORMATION: Weakness COMPARISON: 03/06/2020 TECHNIQUE: Frontal view of the chest was obtained. FINDINGS: Lung volumes are symmetric. Linear left midlung opacity favors atelectasis or scarring. No new consolidation bilaterally. No evidence of pneumothorax, significant pleural effusion, or overt pulmonary edema. Cardiac silhouette remains enlarged. Chronic right clavicular fracture is noted. Left axillary stent is present. XR/XR chest 1V IMPRESSION: No acute consolidation. Enlarged cardiac silhouette.
[2020-07-31 03:38] VITALS: BP 124/46; PULSE 72; RESP 18; TEMP 36.3; O2SAT 98; BMI 38.4
--- NOTE | 2020-07-31 03:39 | ECG_ITS ---
Test Reason : HYPOGLYCIMIA Blood Pressure : / mmHG Vent. Rate : 072 BPM Atrial Rate : 072 BPM P-R Int : 240 ms QRS Dur : 088 ms QT Int : 418 ms P-R-T Axes : 008 051 054 degrees QTc Int : 457 ms Sinus rhythm with 1st degree A-V block Anterior infarct , age undetermined Abnormal ECG When compared with ECG of 10-MAR-2020 20:54, [place] interval has increased Referred By: Alecia Gaxiola Electronically Signed By:Elías Maddox
--- NOTE | 2020-07-31 03:40 | ED.GENADULT ---
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 Mode of arrival: ambulatory Limitations: no limitations History of Present Illness HPI narrative: 55 yo female with IDDM, ESRD on HD MWF, HTN, HLD here with reported low blood sugars tonight she states she has been on a diet her BS this evening read HI she took 18 U of lispro around 6pm then noted her blood sugar started to drop around 10pm/11pm - she felt shaky, dizzy and tingling in her hands - sugar at 49 at her most recent visit to Endocrinology they were concerned about her improving control and ESRD with possible hypoglycemia her most recent regimen: insulin glargine U-300 conc (Toujeo Max U-300 SoloStar) 25 units subcut DAILY 30 insulin lispro (Humalog KwikPen (U-100) Insulin) 20 units subcut TID Sitagliptin 25mg PO daily complaint: low blood sugar Onset (ago): hour(s) (10pm) Radiation: non-radiation Severity: moderate Pain Consistency: constant Relieving factors: eating Exacerbating factors: none Associated symptoms: confusion, malaise and weakness Treatments prior to arrival: other (tried to eat food) Related Data Home Medications Medication Instructions Recorded Confirmed amlodipine 10 mg tablet 10 mg PO DAILY 04/25/20 07/23/20 aspirin 81 mg tablet,delayed 81 mg PO DAILY 04/25/20 07/23/20 release blood-glucose meter #1 ea 04/25/20 07/23/20 carvedilol 12.5 mg tablet 12.5 mg PO BID 04/25/20 07/23/20 hydralazine 50 mg tablet 50 mg PO TID 04/25/20 07/23/20 levothyroxine 25 mcg tablet 25 mcg PO DAILY 04/25/20 07/23/20 omeprazole 20 mg capsule,delayed 20 mg PO DAILY 04/25/20 07/23/20 release pen needle, diabetic 32 gauge x #50 ea 04/25/20 07/23/2005/28 sitagliptin 25 mg tablet 25 mg PO DAILY 04/25/20 07/23/20 atorvastatin 40 mg tablet 40 mg PO BEDTIME 07/23/20 cholecalciferol (vitamin D3) 1,250 1,250 mcg PO QWEEK 07/23/20 07/23/20 mcg (50,000 unit) capsule gabapentin 100 mg capsule 100 mg PO BEDTIME 07/23/20 lisinopril 10 mg tablet 10 mg PO DAILY 07/23/20 sevelamer carbonate 800 mg tablet 800 mg PO TID 07/23/20 Previous Rx's Medication Instructions Recorded tzpwarrlpi-[id number]-wrss 1 cap PO Q8H PRN #7 cap 03/06/20 [Fioricet] meclizine 25 mg PO TID PRN #14 tab 03/11/20 insulin glargine U-300 conc 300 25 unit SUBCUT DAILY 30 Days 04/25/20 unit/mL (3 mL) subcutaneous pen #2.499 ml blood sugar diagnostic #100 ea 06/27/20 blood-glucose meter #1 ea 06/27/20 lancets 28 gauge #100 ea 06/27/20 insulin lispro 100 unit/mL 20 unit SUBCUT TID 30 Days #18 ml 07/25/20 subcutaneous pen Allergies Allergy/AdvReac Type Severity Reaction Status Date / Time No Known Allergies Allergy Verified 07/23/20 07:38 [No Known Allergies*] Review of Systems Review of Systems: Constitutional : No Weight loss, No Fever, No Chills, pos Fatigue, pos Malaise ENT/Mouth : No sore throat, No Rhinorrhea Eyes: No Eye Pain, No Swelling, No Redness Cardiovascular : No Chest Pain, No SOB, No Dyspnea on Exertion, No Orthopnea, No Edema, No Palpitations Respiratory : No Cough, No Sputum, No Wheezing Gastrointestinal : No Nausea, No Vomiting, No Diarrhea, No Constipation, No abdominal Pain, No Hematochezia, No Melena Genitourinary : No Dysuria, No Urinary Frequency, No Hematuria, Musculoskeletal : No joint pain, No Myalgias, No Joint Swelling Skin : No Skin Lesions, No rash Neuro : pos Weakness, No Numbness, No Dizziness, No Headache Psych : No Anxiety/Panic, No Depression Heme/Lymph: No Bruising, No Bleeding,No Lymphadenopathy Endocrine : No Polyuria, No Polydipsia All other systems reviewed and are negative PMFSH Past Medical History Attestation statement: The following information was validated with the patient. Medical History Diabetes Dialysis patient ESRD (end stage renal disease) HLD (hyperlipidemia) HTN (hypertension) Renal failure (ARF), acute on chronic T2DM (type 2 diabetes mellitus) Surgical History History of kidney surgery Hx of bone graft Hx of cholecystectomy Family History Family History Father CVD (cardiovascular disease) Diabetes Mother Diabetes Social History Social History Alcohol intake: never Smoking Status: Never smoker Advance Directives: No Physical Exam Vital Signs: Vital Signs: Last Vital Signs Pulse 72 07/31/20 03:38 Resp 18 07/31/20 03:38 BP 124/46 L 07/31/20 03:38 Pulse Ox 98 07/31/20 03:38 Body Mass Index 38.4 Appearance: Alert. Oriented X3. No acute distress. Anxious Eyes: Pupils equal, round and reactive to light. ENT: Pharynx normal. Neck: Normal inspection. Neck supple. CVS: Normal heart rate and rhythm. Pulses normal. Respiratory: No respiratory distress. Breath sounds normal. Abdomen: Soft and nontender. Skin: Skin warm and dry. Normal skin color. Normal skin turgor. Extremities: No lower extremity edema. No calf ttp Neuro: Oriented X 3. No motor deficit. No sensory deficit. Course Course Course Narrative: given Dextrose as BS only up to 87 with PBJ and apple/OJ after talking to the he believes that one of the glucometers is not working as one stated 150 and one was 49 so they were inconsistent and the is not sure what her blood sugar was prior to her taking the 18 units of insulin signed out pending observation of blood sugar Patient placed in physician observation at 517am. The indication for observation is that the patient needs more time to see if her hypoglycemia improves or if she will need to be admitted. At this time the patient is well developed well nourished, lungs clear, CV RRR, abd nontender, neuro is intact. Medical Decision Making MDM Narrative Medical decision making narrative: 55 yo female with ESRD on HD MWF, IDDM, HLD, HTN comes in with low blood sugars reportedly it was high she took 18 units of insulin then her blood sugar has been dropping, unsure what precipitated events she denies lantus use or accidental ingestion, will obtain EKG, labs, UA, CXR, observe patient Lab Data Result diagrams: 07/31/20 03:58 07/31/20 03:59 Labs: Lab Results 07/31/20 07/31/20 07/31/20 Range/Units 03:29 03:57 03:58 WBC 10.9 H (4.8-10.8) X10*3/uL RBC 3.14 L (4.20-5.50) X10*6/uL Hgb 9.6 L (12.0-16.0) g/dl Hct 28.8 L (37-47) % MCV 91.7 (80-98) fL MCH 30.6 (27.0-33.0) pg MCHC 33.3 (31.0-35.0) g/dl RDW 15.0 (11.0-16.0) % Plt Count 173 (160-400) X10*3/uL MPV 12.1 (9.4-12.3) fL Immature Gran % (Auto) 0.4 (0.0-0.4) % Neut % (Auto) 70.1 (45-73) % Lymph % (Auto) 18.5 L (20-40) % [place] % (Auto) 5.1 (2-11) % Eos % (Auto) 5.3 H (0-4) % Baso % (Auto) 0.6 (0-2) % Lymph # (Auto) 2.0 (1.2-4.9) X10*3/uL [place] # (Auto) 0.6 (0.1-1.2) X10*3/uL Eos # (Auto) 0.6 H (0.0-0.4) X10*3/uL Baso # (Auto) 0.1 (0.0-0.2) X10*3/uL Abs Immat Gran (auto) 0.04 H (0.00-0.03) X10*3/uL Absolute Neuts (auto) 7.7 (2.0-8.3) X10*3/uL Absolute Nucleated RBC 0.000 (0.0-0.012) X10*3/uL Nucleated RBC % (auto) 0.0 (0.0-0.2) /100WBC Hold Blue Top Sodium (135-145) mmol/L Potassium (3.3-5.1) mmol/L Chloride (96-108) mmol/L Carbon Dioxide (22-29) mmol/L Anion Gap (12-20) BUN (9-16) mg/dL Creatinine (0.5-1.4) mg/dL Estim Creat Clear Calc Estimated GFR POC Glucose 58 L* 87 (60-115) mg/dL Random Glucose (60-115) mg/dL Calcium (8.4-10.2) mg/dL Magnesium (1.6-2.6) mg/dL Total Bilirubin (0.0-1.0) mg/dL Direct Bilirubin (0.0-0.5) mg/dL AST (5-31) U/L ALT (0-31) U/L Alkaline Phosphatase (39-117) U/L Total Protein (6.5-8.0) g/dL Albumin (3.5-5.0) g/dL COVID-19 (AYESHA) (Negative) COVID-19 Clin Com 07/31/20 07/31/20 07/31/20 Range/Units 03:59 03:59 03:59 WBC (4.8-10.8) X10*3/uL RBC (4.20-5.50) X10*6/uL Hgb (12.0-16.0) g/dl Hct (37-47) % MCV (80-98) fL MCH (27.0-33.0) pg MCHC (31.0-35.0) g/dl RDW (11.0-16.0) % Plt Count (160-400) X10*3/uL MPV (9.4-12.3) fL Immature Gran % (Auto) (0.0-0.4) % Neut % (Auto) (45-73) % Lymph % (Auto) (20-40) % [place] % (Auto) (2-11) % Eos % (Auto) (0-4) % Baso % (Auto) (0-2) % Lymph # (Auto) (1.2-4.9) X10*3/uL [place] # (Auto) (0.1-1.2) X10*3/uL Eos # (Auto) (0.0-0.4) X10*3/uL Baso # (Auto) (0.0-0.2) X10*3/uL Abs Immat Gran (auto) (0.00-0.03) X10*3/uL Absolute Neuts (auto) (2.0-8.3) X10*3/uL Absolute Nucleated RBC (0.0-0.012) X10*3/uL Nucleated RBC % (auto) (0.0-0.2) /100WBC Hold Blue Top SEE NOTE Sodium 139 (135-145) mmol/L Potassium 4.3 (3.3-5.1) mmol/L Chloride 98 (96-108) mmol/L Carbon Dioxide 28 (22-29) mmol/L Anion Gap 17 (12-20) BUN 62 H (9-16) mg/dL Creatinine 6.77 H* (0.5-1.4) mg/dL Estim Creat Clear Calc 10.5 Estimated GFR 6 POC Glucose (60-115) mg/dL Random Glucose 79 D (60-115) mg/dL Calcium 9.2 (8.4-10.2) mg/dL Magnesium 2.0 (1.6-2.6) mg/dL Total Bilirubin 0.5 (0.0-1.0) mg/dL Direct Bilirubin 0.3 (0.0-0.5) mg/dL AST 12 (5-31) U/L ALT 16 (0-31) U/L Alkaline Phosphatase 131 H (39-117) U/L Total Protein 7.4 (6.5-8.0) g/dL Albumin 4.1 (3.5-5.0) g/dL COVID-19 (AYESHA) Negative (Negative) COVID-19 Clin Com See Note 07/31/20 Range/Units 05:00 WBC (4.8-10.8) X10*3/uL RBC (4.20-5.50) X10*6/uL Hgb (12.0-16.0) g/dl Hct (37-47) % MCV (80-98) fL MCH (27.0-33.0) pg MCHC (31.0-35.0) g/dl RDW (11.0-16.0) % Plt Count (160-400) X10*3/uL MPV (9.4-12.3) fL Immature Gran % (Auto) (0.0-0.4) % Neut % (Auto) (45-73) % Lymph % (Auto) (20-40) % [place] % (Auto) (2-11) % Eos % (Auto) (0-4) % Baso % (Auto) (0-2) % Lymph # (Auto) (1.2-4.9) X10*3/uL [place] # (Auto) (0.1-1.2) X10*3/uL Eos # (Auto) (0.0-0.4) X10*3/uL Baso # (Auto) (0.0-0.2) X10*3/uL Abs Immat Gran (auto) (0.00-0.03) X10*3/uL Absolute Neuts (auto) (2.0-8.3) X10*3/uL Absolute Nucleated RBC (0.0-0.012) X10*3/uL Nucleated RBC % (auto) (0.0-0.2) /100WBC Hold Blue Top Sodium (135-145) mmol/L Potassium (3.3-5.1) mmol/L Chloride (96-108) mmol/L Carbon Dioxide (22-29) mmol/L Anion Gap (12-20) BUN (9-16) mg/dL Creatinine (0.5-1.4) mg/dL Estim Creat Clear Calc Estimated GFR POC Glucose 194 H (60-115) mg/dL Random Glucose (60-115) mg/dL Calcium (8.4-10.2) mg/dL Magnesium (1.6-2.6) mg/dL Total Bilirubin (0.0-1.0) mg/dL Direct Bilirubin (0.0-0.5) mg/dL AST (5-31) U/L ALT (0-31) U/L Alkaline Phosphatase (39-117) U/L Total Protein (6.5-8.0) g/dL Albumin (3.5-5.0) g/dL COVID-19 (AYESHA) (Negative) COVID-19 Clin Com ECG Data Attestation: I personally reviewed and interpreted this ECG as follows: Interpretation: Rate: 72 Rhythm: NSR with 1st degree AVB [place]: normal Normal P waves. Normal DONY. Normal QRS complex. poor R wave progression ST T wave : normal, no YOLANDA qTC: normal prior studies: no acute ischemia The study has been interpreted contemporaneously by me. . Discharge Plan Discharge Clinical Impression: Hypoglycemia Prescriptions: No Action (DME) blood-glucose meter [FreeStyle Lite Meter] Kit See Rx Instructions .ROUTE .MEDSUPPLY Qty: 1 RF: 0 (DME) FreeStyle Lite Strips Strip See Rx Instructions .ROUTE .MEDSUPPLY Qty: 100 RF: 11 (DME) lancets [FreeStyle Lancets] 28 gauge misc See Rx Instructions .ROUTE .MEDSUPPLY Qty: 100 RF: 11 insulin lispro [Humalog KwikPen Insulin] 100 unit/mL insulin pen 20 unit subcut TID 30 Days Qty: 18 RF: 11 meclizine 25 mg tablet 25 mg PO TID PRN (Reason: dizziness) Qty: 14 RF: 0 [id number] [Fioricet] 50-300-40 mg capsule 1 cap PO Q8H PRN (Reason: pain) Qty: 7 RF: 0 aspirin 81 mg tablet,delayed release (DR/EC) 81 mg PO DAILY RF: 0 omeprazole 20 mg capsule,delayed release(DR/EC) 20 mg PO DAILY RF: 0 levothyroxine 25 mcg tablet 25 mcg PO DAILY RF: 0 amlodipine 10 mg tablet 10 mg PO DAILY RF: 0 Januvia 25 mg tablet 25 mg PO DAILY RF: 0 carvedilol 12.5 mg tablet 12.5 mg PO BID RF: 0 hydralazine 50 mg tablet 50 mg PO TID RF: 0 (DME) blood-glucose meter [FreeStyle Lite Meter] Kit See Rx Instructions .ROUTE .MEDSUPPLY Qty: 1 RF: 0 (DME) pen needle, diabetic [BD Ultra-Fine Micro Pen Needle] 32 gauge x 1/4 needle See Rx Instructions .ROUTE .MEDSUPPLY Qty: 50 RF: 0 Toujeo Max U-300 SoloStar 300 unit/mL (3 mL) insulin pen 25 unit subcut DAILY 30 Days Qty: 2.499 RF: 3 cholecalciferol (vitamin D3) 1,250 mcg (50,000 unit) capsule 1,250 mcg PO QWEEK RF: 0 atorvastatin 40 mg tablet 40 mg PO BEDTIME RF: 0 gabapentin 100 mg capsule 100 mg PO BEDTIME RF: 0 lisinopril 10 mg tablet 10 mg PO DAILY RF: 0 sevelamer carbonate 800 mg tablet 800 mg PO TID RF: 0
[2020-07-31 04:03] LABS: Glucose, Whole Blood 87 mg/dL (60-115)
[2020-07-31 04:03] LABS: Glucose, Whole Blood 58 mg/dL (60-115)
[2020-07-31 04:04] LABS: MANUAL DIFF FLAG NO
[2020-07-31 04:06] LABS: Basophils Absolute Auto 0.1 X10*3/uL (0.0-0.2); Basophils Percent Auto 0.6 % (0-2); Eosinophils Absolute Auto 0.6 X10*3/uL (0.0-0.4); Eosinophils Percent Auto 5.3 % (0-4); Hematocrit 28.8 % (37-47); Hemoglobin 9.6 g/dl (12.0-16.0); Imm Gran Abs Auto 0.04 X10*3/uL (0.00-0.03); Imm Gran Pct Auto 0.4 % (0.0-0.4); Lymphocytes Percent Auto 18.5 % (20-40); Mean Corpuscular HGB Conc 33.3 g/dl (31.0-35.0); Mean Corpuscular Hemoglobin 30.6 pg (27.0-33.0); Mean Corpuscular Volume 91.7 fL (80-98); Mean Platelet Volume 12.1 fL (9.4-12.3); Monocytes Absolute Auto 0.6 X10*3/uL (0.1-1.2); Monocytes Percent Auto 5.1 % (2-11); Neutrophils Absolute Auto 7.7 X10*3/uL (2.0-8.3); Neutrophils Percent Auto 70.1 % (45-73); Platelet Count 173 X10*3/uL (160-400); Red Blood Count 3.14 X10*6/uL (4.20-5.50); White Blood Count 10.9 X10*3/uL (4.8-10.8)
[2020-07-31 04:22] LABS: COVID-19 Test Negative (Negative); IDNOW Serial# 9DD0AD1C
[2020-07-31 04:27] LABS: Anion Gap 17 (12-20); Carbon Dioxide 28 mmol/L (22-29); Chloride 98 mmol/L (96-108); Potassium 4.3 mmol/L (3.3-5.1); Sodium 139 mmol/L (135-145)
[2020-07-31 04:31] LABS: Alanine Aminotransferase 16 U/L (0-31); Albumin Level 4.1 g/dL (3.5-5.0); Alkaline Phosphatase 131 U/L (39-117); Aspartate Amino Transferase 12 U/L (5-31); Bilirubin Direct 0.3 mg/dL (0.0-0.5); Bilirubin Total 0.5 mg/dL (0.0-1.0); Blood Urea Nitrogen 62 mg/dL (9-16); Calcium 9.2 mg/dL (8.4-10.2); Glucose Random 79 mg/dL (60-115); Total Protein 7.4 g/dL (6.5-8.0)
[2020-07-31 04:32] LABS: Creatinine Clr Calc Pharmacy 10.5; Estimated Glomerular Filt Rate 6
[2020-07-31 05:04] LABS: Glucose, Whole Blood 194 mg/dL (60-115)
--- NOTE | 2020-07-31 05:09 | PC.NURSE ---
Late Entry: Upon entering the ED, patient was pale, slow but answering questions appropriately and reporting dizziness, and bilateral numbness in hands. Pt reports I take Humalog and another type of insulin, but I don't know the name . Therapy Manager present during all interactions, also present. Transfered to bed from wheelchair successfully. IV access established in Right arm. Will continue to monitor.
[2020-07-31 06:20] LABS: Glucose, Whole Blood 193 mg/dL (60-115)
--- NOTE | 2020-07-31 07:09 | PC.NURSE ---
Late Entry: This RN & spoke with patient's (Prosper) regarding story/general complaints. Prosper reports that she has 2 glucometers at home, and one said that her blood sugar was 150, and the other one said it was 49 . Prosper is unsure how much insulin she took exactly, but confirms that the patient was seen by Endocrinology recently, and prescribed Lantus. Pt states that she is no longer taking Lantus, but notes from endocrinology contradict this statement. Pharmacy reports that pt is still on Lantus and Humalog. Pt reports I take Humalog and another insulin, but I don't remember the name ?Lantus. aware of all this. Pt remains stable at this time, will continue to monitor. Plan to discharge prior to scheduled 11am dialysis appointment, Prosper's contact information in the patient's electronic file, confirmed correct contact information. RN to RN report given to GAGE Lockett.
[2020-07-31 07:21] LABS: Glucose, Whole Blood 200 mg/dL (60-115)
[2020-07-31 07:38] VITALS: BP 138/44; PULSE 75; RESP 18; TEMP 36.4; O2SAT 96
[2020-07-31 08:33] LABS: Glucose, Whole Blood 284 mg/dL (60-115)
== END 2020-07-31 09:45 | disposition home or self-care (01) ==
PROVIDERS: Emergency Medicine; Emergency Provider Emergency Medicine Emergency Medical Services; PCP Internal Medicine
DX: E11.649 Type 2 diabetes mellitus with hypoglycemia without coma (principal); I12.0 Hypertensive chronic kidney disease with stage 5 chronic kidney disease or end stage renal disease; N18.6 End stage renal disease; R53.1 Weakness; Z20.822 Contact with and (suspected) exposure to COVID-19; Z79.4 Long term (current) use of insulin; Z79.899 Other long term (current) drug therapy
CPT/HCPCS: 36415; 71045; 80048; 80076; 82947; 83735; 85025; 87635; 93005; 96374; 99284

== ENCOUNTER → 2020-08-17 10:06 | Outpatient (BNVA) | payer MEDICAID, SELFPAY | PROVIDERS: PCP Internal Medicine; Visit Provider Dietitian, Registered ==

== ENCOUNTER → 2020-09-19 10:05 | Outpatient (BNVA) | payer MEDICAID, SELFPAY | PROVIDERS: PCP Internal Medicine; Visit Provider Physician Assistant | DX: Z12.11 Encounter for screening for malignant neoplasm of colon (principal); K21.9 Gastro-esophageal reflux disease without esophagitis | CPT/HCPCS: 99202 ==

== ENCOUNTER 2020-09-23 19:28 | Emergency (ER) | payer MEDICAID, SELFPAY ==
[2020-09-23 19:57] VITALS: BP 184/56; PULSE 80; RESP 16; TEMP 37.1; O2SAT 98; BMI 37.2
[2020-09-23 20:18] LABS: Glucose, Whole Blood 548 mg/dL (60-115)
--- NOTE | 2020-09-23 21:40 | ED.GENADULT ---
HPI - General Adult General Chief complaint: General Medical Stated complaint: hi blood sugar Time Seen by Provider: 09/23/20 21:26 Source: patient and spanish interpreter/translator Mode of arrival: ambulatory Limitations: no limitations History of Present Illness HPI narrative: 55 yo female with ESRD on HD, HTN, HPL, IDDM here with 2 days of elevated BS - no infections, no change in medications, she has done really well with her diet but after much discussion she is heavily eating grapes and strawberries, compliant with her medications, other than blood sugars being high denies any symptoms complaint: hyperglycemia Onset (ago): day(s) (3) Radiation: non-radiation Severity: moderate Pain Consistency: constant Relieving factors: none Exacerbating factors: eating Associated symptoms: denies other symptoms Treatments prior to arrival: none Related Data Home Medications Medication Instructions Recorded Confirmed amlodipine 10 mg tablet 10 mg PO DAILY 04/25/20 09/19/20 aspirin 81 mg tablet,delayed 81 mg PO DAILY 04/25/20 09/19/20 release blood-glucose meter #1 ea 04/25/20 09/19/20 carvedilol 12.5 mg tablet 12.5 mg PO BID 04/25/20 09/19/20 hydralazine 50 mg tablet 50 mg PO TID 04/25/20 09/19/20 levothyroxine 25 mcg tablet 25 mcg PO DAILY 04/25/20 09/19/20 omeprazole 20 mg capsule,delayed 20 mg PO DAILY 04/25/20 09/19/20 release pen needle, diabetic 32 gauge x #50 ea 04/25/20 09/19/2005/28 sitagliptin 25 mg tablet 25 mg PO DAILY 04/25/20 09/19/20 atorvastatin 40 mg tablet 40 mg PO BEDTIME 07/23/20 09/19/20 cholecalciferol (vitamin D3) 1,250 1,250 mcg PO QWEEK 07/23/20 09/19/20 mcg (50,000 unit) capsule gabapentin 100 mg capsule 100 mg PO BEDTIME 07/23/20 09/19/20 lisinopril 10 mg tablet 10 mg PO DAILY 07/23/20 09/19/20 sevelamer carbonate 800 mg tablet 800 mg PO TID 07/23/20 09/19/20 Previous Rx's Medication Instructions Recorded blqyrwzkvh-jypygucozzegq-blgt 1 cap PO Q8H PRN #7 cap 03/06/20 [Fioricet] meclizine 25 mg PO TID PRN #14 tab 03/11/20 insulin glargine U-300 conc 300 25 unit SUBCUT DAILY 30 Days 04/25/20 unit/mL (3 mL) subcutaneous pen #2.499 ml blood sugar diagnostic #100 ea 06/27/20 blood-glucose meter #1 ea 06/27/20 lancets 28 gauge #100 ea 06/27/20 insulin lispro 100 unit/mL 20 unit SUBCUT TID 30 Days #18 ml 07/25/20 subcutaneous pen bisacodyl 5 mg tablet,delayed 10 mg PO ONCE 1 Days #2 tab 09/19/20 release polyethylene glycol 3350 17 238 g PO ONCE 1 Days #238 g 09/19/20 gram/dose oral powder Allergies Allergy/AdvReac Type Severity Reaction Status Date / Time No Known Allergies Allergy Verified 07/23/20 07:38 [No Known Allergies*] Review of Systems Review of Systems: Constitutional : No Weight loss, No Fever, No Chills, No Fatigue, No Malaise ENT/Mouth : No sore throat, No Rhinorrhea Eyes: No Eye Pain, No Swelling, No Redness Cardiovascular : No Chest Pain, No SOB, No Dyspnea on Exertion, No Orthopnea, No Edema, No Palpitations Respiratory : No Cough, No Sputum, No Wheezing Gastrointestinal : No Nausea, No Vomiting, No Diarrhea, No Constipation, No abdominal Pain, No Hematochezia, No Melena Genitourinary : No Dysuria, No Urinary Frequency, No Hematuria, Musculoskeletal : No joint pain, No Myalgias, No Joint Swelling Skin : No Skin Lesions, No rash Neuro : No Weakness, No Numbness, No Dizziness, No Headache All other systems reviewed and are negative [facility] Past Medical History Attestation statement: The following information was validated with the patient. Medical History Diabetes Dialysis patient ESRD (end stage renal disease) HLD (hyperlipidemia) HTN (hypertension) Renal failure (ARF), acute on chronic T2DM (type 2 diabetes mellitus) Surgical History History of kidney surgery Hx of bone graft Hx of cholecystectomy Family History Family History (Updated 09/19/20 @ 10:37 by Cynthia Gnozalez PA-C) Father CVD (cardiovascular disease) Diabetes Mother Diabetes Sister Stomach cancer Social History Social History Household Members: Spouse Alcohol intake: never Smoking Status: Never smoker Use of substances other than those prescribed or required for medical reasons: No Advance Directives: No Advance Directives Information Provided: No Current occupational status: disabled Physical Exam Vital Signs: Vital Signs: Last Vital Signs Temp 97.9 F 09/23/20 22:13 Pulse 84 09/23/20 22:13 Resp 18 09/23/20 22:13 BP 165/70 H 09/23/20 22:13 Pulse Ox 98 09/23/20 22:13 Body Mass Index 37.2 Appearance: Alert. Oriented X3. No acute distress. Eyes: Pupils equal, round and reactive to light. ENT: Pharynx normal. Neck: Normal inspection. Neck supple. CVS: Normal heart rate and rhythm. Pulses normal. Respiratory: No respiratory distress. Breath sounds normal. Abdomen: Soft and nontender. Skin: Skin warm and dry. Normal skin color. Normal skin turgor. Extremities: No lower extremity edema. No calf ttp Neuro: Oriented X 3. No motor deficit. No sensory deficit. Course Course Course Narrative: BS improving stable for DC, can be DC Medical Decision Making MDM Narrative Medical decision making narrative: 55 yo female with ESRD< HTN, HPL, IDDM here with elevated blood sugars after much discussion given med compliance, overall eating well, denies infectious symptoms suspect her marked increase in eating fruits particularly grapes and strawberries over the past couple of days are contributing to her elevated blood sugar Lab Data Result diagrams: 09/23/20 21:35 09/23/20 21:34 Labs: Lab Results 09/23/20 09/23/20 09/23/20 Range/Units 19:56 21:34 21:34 WBC (4.8-10.8) X10*3/uL RBC (4.20-5.50) X10*6/uL Hgb (12.0-16.0) g/dl Hct (37-47) % MCV (80-98) fL MCH (27.0-33.0) pg MCHC (31.0-35.0) g/dl RDW (11.0-16.0) % Plt Count (160-400) X10*3/uL MPV (9.4-12.3) fL Immature Gran % (Auto) (0.0-0.4) % Neut % (Auto) (45-73) % Lymph % (Auto) (20-40) % Baxter % (Auto) (2-11) % Eos % (Auto) (0-4) % Baso % (Auto) (0-2) % Lymph # (Auto) (1.2-4.9) X10*3/uL Baxter # (Auto) (0.1-1.2) X10*3/uL Eos # (Auto) (0.0-0.4) X10*3/uL Baso # (Auto) (0.0-0.2) X10*3/uL Abs Immat Gran (auto) (0.00-0.03) X10*3/uL Absolute Neuts (auto) (2.0-8.3) X10*3/uL Absolute Nucleated RBC (0.0-0.012) X10*3/uL Nucleated RBC % (auto) (0.0-0.2) /100WBC Hold Purple Top Hold Blue Top SEE NOTE Sodium 132 L (135-145) mmol/L Potassium 4.9 (3.3-5.1) mmol/L Chloride 90 L (96-108) mmol/L Carbon Dioxide 28 (22-29) mmol/L Anion Gap 19 (12-20) BUN 55 H (9-16) mg/dL Creatinine 5.47 H* (0.5-1.4) mg/dL Estim Creat Clear Calc 12.8 Estimated GFR 8 POC Glucose 548 H* (60-115) mg/dL Random Glucose 625 H* (60-115) mg/dL Calcium 9.1 (8.4-10.2) mg/dL Total Bilirubin 0.6 (0.0-1.0) mg/dL AST 9 (5-31) U/L ALT 15 (0-31) U/L Alkaline Phosphatase 165 H D (39-117) U/L Total Protein 7.6 (6.5-8.0) g/dL Albumin 4.0 (3.5-5.0) g/dL Acetone, Qual Negative (Negative) 09/23/20 09/23/20 09/23/20 Range/Units 21:35 21:35 23:32 WBC 9.8 (4.8-10.8) X10*3/uL RBC 3.36 L (4.20-5.50) X10*6/uL Hgb 10.7 L (12.0-16.0) g/dl Hct 30.6 L (37-47) % MCV 91.1 (80-98) fL MCH 31.8 (27.0-33.0) pg MCHC 35.0 (31.0-35.0) g/dl RDW 12.4 (11.0-16.0) % Plt Count 216 (160-400) X10*3/uL MPV 11.4 (9.4-12.3) fL Immature Gran % (Auto) 0.8 H (0.0-0.4) % Neut % (Auto) 65.1 (45-73) % Lymph % (Auto) 21.6 (20-40) % Baxter % (Auto) 5.7 (2-11) % Eos % (Auto) 6.2 H (0-4) % Baso % (Auto) 0.6 (0-2) % Lymph # (Auto) 2.1 (1.2-4.9) X10*3/uL Baxter # (Auto) 0.6 (0.1-1.2) X10*3/uL Eos # (Auto) 0.6 H (0.0-0.4) X10*3/uL Baso # (Auto) 0.1 (0.0-0.2) X10*3/uL Abs Immat Gran (auto) 0.08 H (0.00-0.03) X10*3/uL Absolute Neuts (auto) 6.4 (2.0-8.3) X10*3/uL Absolute Nucleated RBC 0.000 (0.0-0.012) X10*3/uL Nucleated RBC % (auto) 0.0 (0.0-0.2) /100WBC Hold Purple Top SEE NOTE Hold Blue Top Sodium (135-145) mmol/L Potassium (3.3-5.1) mmol/L Chloride (96-108) mmol/L Carbon Dioxide (22-29) mmol/L Anion Gap (12-20) BUN (9-16) mg/dL Creatinine (0.5-1.4) mg/dL Estim Creat Clear Calc Estimated GFR POC Glucose 462 H* (60-115) mg/dL Random Glucose (60-115) mg/dL Calcium (8.4-10.2) mg/dL Total Bilirubin (0.0-1.0) mg/dL AST (5-31) U/L ALT (0-31) U/L Alkaline Phosphatase (39-117) U/L Total Protein (6.5-8.0) g/dL Albumin (3.5-5.0) g/dL Acetone, Qual (Negative) 09/24/20 Range/Units 00:55 WBC (4.8-10.8) X10*3/uL RBC (4.20-5.50) X10*6/uL Hgb (12.0-16.0) g/dl Hct (37-47) % MCV (80-98) fL MCH (27.0-33.0) pg MCHC (31.0-35.0) g/dl RDW (11.0-16.0) % Plt Count (160-400) X10*3/uL MPV (9.4-12.3) fL Immature Gran % (Auto) (0.0-0.4) % Neut % (Auto) (45-73) % Lymph % (Auto) (20-40) % Baxter % (Auto) (2-11) % Eos % (Auto) (0-4) % Baso % (Auto) (0-2) % Lymph # (Auto) (1.2-4.9) X10*3/uL Baxter # (Auto) (0.1-1.2) X10*3/uL Eos # (Auto) (0.0-0.4) X10*3/uL Baso # (Auto) (0.0-0.2) X10*3/uL Abs Immat Gran (auto) (0.00-0.03) X10*3/uL Absolute Neuts (auto) (2.0-8.3) X10*3/uL Absolute Nucleated RBC (0.0-0.012) X10*3/uL Nucleated RBC % (auto) (0.0-0.2) /100WBC Hold Purple Top Hold Blue Top Sodium (135-145) mmol/L Potassium (3.3-5.1) mmol/L Chloride (96-108) mmol/L Carbon Dioxide (22-29) mmol/L Anion Gap (12-20) BUN (9-16) mg/dL Creatinine (0.5-1.4) mg/dL Estim Creat Clear Calc Estimated GFR POC Glucose 394 H* (60-115) mg/dL Random Glucose (60-115) mg/dL Calcium (8.4-10.2) mg/dL Total Bilirubin (0.0-1.0) mg/dL AST (5-31) U/L ALT (0-31) U/L Alkaline Phosphatase (39-117) U/L Total Protein (6.5-8.0) g/dL Albumin (3.5-5.0) g/dL Acetone, Qual (Negative) Discharge Plan Discharge Clinical Impression: Acute hyperglycemia Patient Disposition: Home, Self-Care Instructions: Diabetic Hyperglycemia (ED) Additional Instructions: return to ED for any worsening symptoms or concerns apples pears blueberries strawberries Prescriptions: No Action (DME) blood-glucose meter [FreeStyle Lite Meter] Kit See Rx Instructions .ROUTE .MEDSUPPLY Qty: 1 RF: 0 (DME) FreeStyle Lite Strips Strip See Rx Instructions .ROUTE .MEDSUPPLY Qty: 100 RF: 11 (DME) lancets [FreeStyle Lancets] 28 gauge misc See Rx Instructions .ROUTE .MEDSUPPLY Qty: 100 RF: 11 insulin lispro [Humalog KwikPen Insulin] 100 unit/mL insulin pen 20 unit subcut TID 30 Days Qty: 18 RF: 11 meclizine 25 mg tablet 25 mg PO TID PRN (Reason: dizziness) Qty: 14 RF: 0 naefxwmglx-yjmvllxvcuuvn-zvtt [Fioricet] 50-300-40 mg capsule 1 cap PO Q8H PRN (Reason: pain) Qty: 7 RF: 0 aspirin 81 mg tablet,delayed release (DR/EC) 81 mg PO DAILY RF: 0 omeprazole 20 mg capsule,delayed release(DR/EC) 20 mg PO DAILY RF: 0 levothyroxine 25 mcg tablet 25 mcg PO DAILY RF: 0 amlodipine 10 mg tablet 10 mg PO DAILY RF: 0 Januvia 25 mg tablet 25 mg PO DAILY RF: 0 carvedilol 12.5 mg tablet 12.5 mg PO BID RF: 0 hydralazine 50 mg tablet 50 mg PO TID RF: 0 (DME) blood-glucose meter [FreeStyle Lite Meter] Kit See Rx Instructions .ROUTE .MEDSUPPLY Qty: 1 RF: 0 (DME) pen needle, diabetic [BD Ultra-Fine Micro Pen Needle] 32 gauge x 1/4 needle See Rx Instructions .ROUTE .MEDSUPPLY Qty: 50 RF: 0 Toujeo Max U-300 SoloStar 300 unit/mL (3 mL) insulin pen 25 unit subcut DAILY 30 Days Qty: 2.499 RF: 3 cholecalciferol (vitamin D3) 1,250 mcg (50,000 unit) capsule 1,250 mcg PO QWEEK RF: 0 atorvastatin 40 mg tablet 40 mg PO BEDTIME RF: 0 gabapentin 100 mg capsule 100 mg PO BEDTIME RF: 0 lisinopril 10 mg tablet 10 mg PO DAILY RF: 0 sevelamer carbonate 800 mg tablet 800 mg PO TID RF: 0 bisacodyl [Dulcolax (bisacodyl)] 5 mg tablet,delayed release (DR/EC) 10 mg PO ONCE 1 Days Qty: 2 RF: 0 polyethylene glycol 3350 [Miralax] 17 gram/dose powder 238 g PO ONCE 1 Days Qty: 238 RF: 0 Referrals: Faith Mason MD [Primary Care Provider] - 2 days Print Language: Greek
[2020-09-23 21:41] LABS: Basophils Absolute Auto 0.1 X10*3/uL (0.0-0.2); Basophils Percent Auto 0.6 % (0-2); Eosinophils Absolute Auto 0.6 X10*3/uL (0.0-0.4); Eosinophils Percent Auto 6.2 % (0-4); Hematocrit 30.6 % (37-47); Hemoglobin 10.7 g/dl (12.0-16.0); Imm Gran Abs Auto 0.08 X10*3/uL (0.00-0.03); Imm Gran Pct Auto 0.8 % (0.0-0.4); Lymphocytes Absolute Auto 2.1 X10*3/uL (1.2-4.9); Lymphocytes Percent Auto 21.6 % (20-40); MANUAL DIFF FLAG NO; Mean Corpuscular Hemoglobin 31.8 pg (27.0-33.0); Mean Corpuscular Volume 91.1 fL (80-98); Mean Platelet Volume 11.4 fL (9.4-12.3); Monocytes Absolute Auto 0.6 X10*3/uL (0.1-1.2); Monocytes Percent Auto 5.7 % (2-11); Neutrophils Absolute Auto 6.4 X10*3/uL (2.0-8.3); Neutrophils Percent Auto 65.1 % (45-73); Platelet Count 216 X10*3/uL (160-400); Red Blood Count 3.36 X10*6/uL (4.20-5.50); Red Cell Distribution Width 12.4 % (11.0-16.0); White Blood Count 9.8 X10*3/uL (4.8-10.8)
[2020-09-23 21:56] LABS: Acetone, serum QL Negative (Negative)
[2020-09-23 22:13] VITALS: BP 165/70; PULSE 84; RESP 18; TEMP 36.6; O2SAT 98
[2020-09-23 22:13] LABS: Alanine Aminotransferase 15 U/L (0-31); Alkaline Phosphatase 165 U/L (39-117); Anion Gap 19 (12-20); Aspartate Amino Transferase 9 U/L (5-31); Bilirubin Total 0.6 mg/dL (0.0-1.0); Blood Urea Nitrogen 55 mg/dL (9-16); Calcium 9.1 mg/dL (8.4-10.2); Carbon Dioxide 28 mmol/L (22-29); Chloride 90 mmol/L (96-108); Creatinine Clr Calc Pharmacy 12.8; Estimated Glomerular Filt Rate 8; Glucose Random 625 mg/dL (60-115); Potassium 4.9 mmol/L (3.3-5.1); Sodium 132 mmol/L (135-145); Total Protein 7.6 g/dL (6.5-8.0)
[2020-09-23] MEDS: Insulin Regular, Human 100 UNIT/ML 3 ML VIAL IVPUSH ×2 (22:20→23:48)
[2020-09-24] MEDS: ondansetron HCL 4 MG/2 ML VIAL IVPUSH (00:08)
[2020-09-24 00:16] LABS: Glucose, Whole Blood 462 mg/dL (60-115)
[2020-09-24 01:00] LABS: Glucose, Whole Blood 394 mg/dL (60-115)
== END 2020-09-24 01:45 | disposition home or self-care (01) ==
PROVIDERS: Emergency Provider Emergency Medicine; PCP Internal Medicine
DX: E11.65 Type 2 diabetes mellitus with hyperglycemia (principal); E11.22 Type 2 diabetes mellitus with diabetic chronic kidney disease; I12.0 Hypertensive chronic kidney disease with stage 5 chronic kidney disease or end stage renal disease; N18.6 End stage renal disease; Z99.2 Dependence on renal dialysis; E78.5 Hyperlipidemia, unspecified; Z79.4 Long term (current) use of insulin
CPT/HCPCS: 36415; 80053; 82009; 82947; 85025; 96374; 96375; 96376; 99284; J2405

== ENCOUNTER → 2020-10-03 10:33 | Outpatient (BNVA) | payer MEDICAID, SELFPAY | PROVIDERS: PCP Internal Medicine; Visit Provider Dietitian, Registered | DX: E11.65 Type 2 diabetes mellitus with hyperglycemia (principal); Z79.4 Long term (current) use of insulin | CPT/HCPCS: 97803 ==

== ENCOUNTER 2020-10-29 | Outpatient (REF) | payer MEDICAID, SELFPAY ==
[2020-10-24 10:13] VITALS: BMI 37.2
--- NOTE | 2020-10-24 12:32 | HO.ANESPROP2 ---
HPI - Anesthesia Eval Consult details Narrative: 55yo F for Upper Endoscopy and Colonoscopy *AV fistula LUE - No IV/BP LEFT* Pending Cardiac Clearance [facility] Active Problems Active Problems: All Active Problems (Updated 10/24/20 @ 10:13 by Alexa Castorena) Headache (Acute) End stage renal disease on dialysis (Acute) Encounter for screening colonoscopy (Acute) Acid reflux (Acute) HLD (hyperlipidemia) (Acute) HTN (hypertension) (Acute) ESRD (end stage renal disease) (Acute) T2DM (type 2 diabetes mellitus) (Acute) Past Medical History Medical History (Updated 10/24/20 @ 12:54 by Leslie Meadows) AV fistula CAD (coronary artery disease) Dialysis patient ESRD (end stage renal disease) GERD (gastroesophageal reflux disease) HLD (hyperlipidemia) HTN (hypertension) Renal failure (ARF), acute on chronic T2DM (type 2 diabetes mellitus) Thyroid disease Family History Family History (Updated 09/19/20 @ 10:37 by Cynthia Gonzalez PA-C) Father CVD (cardiovascular disease) Diabetes Mother Diabetes Sister Stomach cancer Surgical History Surgical History History of kidney surgery Hx of bone graft Hx of cholecystectomy Social History Social History Household Members: Spouse Alcohol intake: never Patient Tobacco Use Status: Never used Tobacco Current occupational status: disabled Meds Allergies Allergy/AdvReac Type Severity Reaction Status Date / Time No Known Allergies Allergy Verified 07/23/20 07:38 [No Known Allergies*] Home Medications Medication Instructions Recorded Confirmed Last Taken Type amlodipine 10 mg tablet 10 mg PO DAILY 04/25/20 10/24/20 Unknown History aspirin 81 mg tablet,delayed 81 mg PO DAILY 04/25/20 10/24/20 Unknown History release blood-glucose meter #1 ea 04/25/20 09/19/20 Unknown History carvedilol 12.5 mg tablet 12.5 mg PO BID 04/25/20 10/24/20 Unknown History hydralazine 50 mg tablet 50 mg PO TID 04/25/20 10/24/20 Unknown History levothyroxine 25 mcg tablet 25 mcg PO DAILY 04/25/20 10/24/20 Unknown History omeprazole 20 mg capsule,delayed 20 mg PO DAILY 04/25/20 10/24/20 Unknown History release pen needle, diabetic 32 gauge x #50 ea 04/25/20 09/19/20 Unknown History 1/4 sitagliptin 25 mg tablet 25 mg PO DAILY 04/25/20 10/24/20 Unknown History atorvastatin 40 mg tablet 40 mg PO BEDTIME 07/23/20 10/24/20 Unknown History cholecalciferol (vitamin D3) 1,250 1,250 mcg PO QWEEK 07/23/20 10/24/20 Unknown History mcg (50,000 unit) capsule gabapentin 100 mg capsule 100 mg PO BEDTIME 07/23/20 10/24/20 Unknown History lisinopril 10 mg tablet 10 mg PO DAILY 07/23/20 10/24/20 Unknown History sevelamer carbonate 800 mg tablet 800 mg PO TID 07/23/20 10/24/20 Unknown History Exam Exam Date and Time: October 24, 2020 1232 Height,Weight and Vital Signs: Height 5 ft 3 in Weight 95.254 kg Pertinent Lab Results Pertinent Lab Results: Laboratory Tests 09/23/20 21:35 WBC 9.8 Hgb 10.7 L Hct 30.6 L Plt Count 216 Narrative Narrative: EKG 07/2020 Vent. Rate : 072 BPM Atrial Rate : 072 BPM P-R Int : 240 ms QRS Dur : 088 ms QT Int : 418 ms P-R-T Axes : 008 051 054 degrees QTc Int : 457 ms Sinus rhythm with 1st degree A-V block Anterior infarct , age undetermined Abnormal ECG When compared with ECG of 10-MAR-2020 20:54, GA interval has increased
== END 2020-10-29 00:01 | disposition home or self-care (01) ==
LOC: CF
PROVIDERS: PCP Internal Medicine; Visit Provider Internal Medicine
DX: E11.65 Type 2 diabetes mellitus with hyperglycemia (principal); E11.22 Type 2 diabetes mellitus with diabetic chronic kidney disease; I12.0 Hypertensive chronic kidney disease with stage 5 chronic kidney disease or end stage renal disease; N18.6 End stage renal disease; E78.5 Hyperlipidemia, unspecified; Z79.4 Long term (current) use of insulin; Z99.2 Dependence on renal dialysis
CPT/HCPCS: 82947; 83036; 99212

== ENCOUNTER → 2020-11-05 10:29 | Outpatient (BNVA) | payer MEDICAID, SELFPAY | PROVIDERS: PCP Internal Medicine; Visit Provider Nurse Practitioner Gerontology | DX: E11.65 Type 2 diabetes mellitus with hyperglycemia (principal); E78.5 Hyperlipidemia, unspecified; I12.9 Hypertensive chronic kidney disease with stage 1 through stage 4 chronic kidney disease, or unspecified chronic kidney disease; N18.6 End stage renal disease; E66.01 Morbid (severe) obesity due to excess calories; Z68.37 Body mass index [BMI] 37.0-37.9, adult; Z79.4 Long term (current) use of insulin | CPT/HCPCS: 82947; 99212 ==

== ENCOUNTER 2020-11-06 20:55 | Emergency (ER) | payer MEDICAID, SELFPAY ==
[2020-11-06 21:04] VITALS: BP 150/64; PULSE 88; RESP 18; TEMP 37.2; O2SAT 97; BMI 35.6
== END 2020-11-07 01:20 | disposition left against medical advice (07) ==
PROVIDERS: Emergency Provider Emergency Medicine; PCP Internal Medicine
DX: R51.9 Headache, unspecified (principal)
CPT/HCPCS: 99281; 99282

== ENCOUNTER 2020-11-07 16:03 | Emergency (ER) | payer MEDICAID, SELFPAY ==
--- NOTE | ~2020-11-07 | CT_ITS ---
EXAMINATION: CT HEAD WITHOUT CONTRAST CT CERVICAL SPINE WITHOUT CONTRAST CLINICAL INFORMATION: Right-sided headache. Fall. Right-sided neck pain. COMPARISON: CT head and cervical spine 02/14/2020. CT head 03/10/2020 TECHNIQUE: Imaging was performed from the skull base to vertex without intravenous administration of contrast. In addition, helical noncontrast CT imaging was acquired through the cervical spine and source images were reviewed along with axial reconstructions and sagittal and coronal MPRs. [This CT examination was performed using dose optimization techniques as appropriate, variously including the following: *Automated exposure control *Adjustment of mA and/or kV according to patient size (this includes techniques or standardized protocols for targeted exams where dose is matched to indication/reason for exam; i.e. extremities or head) *Use of iterative reconstruction technique] DLP: 1534 mGy-cm FINDINGS: HEAD: No intracranial mass, hemorrhage, or midline shift is visualized. The ventricles and sulci are proportional. No extra-axial collections are identified. The paranasal sinuses and mastoid air cells are well aerated. CERVICAL SPINE: There is no evidence of acute cervical spine fracture. Vertebral bodies remain normal in height. Cervical vertebrae have normal alignment. There is multilevel degenerative spondylosis of the cervical spine with disc height narrowing and endplate spurs and facet joint arthrosis No pre- or paravertebral soft tissue abnormality is identified. Limited assessment of the lung apices is unremarkable. CT/CT cervical spine wo con IMPRESSION: 1. No acute intracranial pathology. 2. No CT evidence of acute cervical spine fracture or traumatic subluxation
--- NOTE | ~2020-11-07 | CT_ITS ---
EXAMINATION: CT HEAD WITHOUT CONTRAST CT CERVICAL SPINE WITHOUT CONTRAST CLINICAL INFORMATION: Right-sided headache. Fall. Right-sided neck pain. COMPARISON: CT head and cervical spine 02/14/2020. CT head 03/10/2020 TECHNIQUE: Imaging was performed from the skull base to vertex without intravenous administration of contrast. In addition, helical noncontrast CT imaging was acquired through the cervical spine and source images were reviewed along with axial reconstructions and sagittal and coronal MPRs. [This CT examination was performed using dose optimization techniques as appropriate, variously including the following: *Automated exposure control *Adjustment of mA and/or kV according to patient size (this includes techniques or standardized protocols for targeted exams where dose is matched to indication/reason for exam; i.e. extremities or head) *Use of iterative reconstruction technique] DLP: 1534 mGy-cm FINDINGS: HEAD: No intracranial mass, hemorrhage, or midline shift is visualized. The ventricles and sulci are proportional. No extra-axial collections are identified. The paranasal sinuses and mastoid air cells are well aerated. CERVICAL SPINE: There is no evidence of acute cervical spine fracture. Vertebral bodies remain normal in height. Cervical vertebrae have normal alignment. There is multilevel degenerative spondylosis of the cervical spine with disc height narrowing and endplate spurs and facet joint arthrosis No pre- or paravertebral soft tissue abnormality is identified. Limited assessment of the lung apices is unremarkable. CT/CT head/brain wo con IMPRESSION: 1. No acute intracranial pathology. 2. No CT evidence of acute cervical spine fracture or traumatic subluxation
[2020-11-07 16:23] VITALS: BP 146/68; PULSE 79; RESP 20; TEMP 36.6; O2SAT 98; BMI 36.6
[2020-11-07 17:24] VITALS: BP 170/63; PULSE 85; RESP 17; O2SAT 97
--- NOTE | 2020-11-07 17:42 | ED.GENADULT ---
HPI - General Adult General Chief complaint: Headache Stated complaint: headache Time Seen by Provider: 11/07/20 17:29 Source: patient Mode of arrival: ambulatory Limitations: no limitations History of Present Illness HPI narrative: 55-year-old female who presents emergency department for evaluation of right-sided headache and neck pain after a fall 5 days prior. Patient was cleaning a small children's pool when she slipped and fell landing on her left shoulder and head. The patient states that since the fall, she has been having pain on the right side of her head and right neck. The pain is worse with movement. The pain is constant, sharp and stabbing, the pain is greater than 10/10 at its worst. She has had associated nausea with no vomiting. Patient states that she followed up at [facility] 2 days prior and was given a prescription for cyclobenzaprine 10 mg 3 times a day with no relief for symptoms. She states that she has to sleep upright secondary to her pain. The pain persisted today therefore she came to the emergency department for evaluation. Her pain is currently greater than 10/10. Related Data Home Medications Medication Instructions Recorded Confirmed amlodipine 10 mg tablet 10 mg PO DAILY 04/25/20 10/29/20 aspirin 81 mg tablet,delayed 81 mg PO DAILY 04/25/20 10/29/20 release carvedilol 12.5 mg tablet 12.5 mg PO BID 04/25/20 10/29/20 hydralazine 50 mg tablet 50 mg PO TID 04/25/20 10/29/20 levothyroxine 25 mcg tablet 25 mcg PO DAILY 04/25/20 10/29/20 omeprazole 20 mg capsule,delayed 20 mg PO DAILY 04/25/20 10/29/20 release pen needle, diabetic 32 gauge x #50 ea 04/25/20 10/29/20 1/ sitagliptin 25 mg tablet 25 mg PO DAILY 04/25/20 10/29/20 atorvastatin 40 mg tablet 40 mg PO BEDTIME 07/23/20 10/29/20 cholecalciferol (vitamin D3) 1,250 1,250 mcg PO QWEEK 07/23/20 10/29/20 mcg (50,000 unit) capsule gabapentin 100 mg capsule 100 mg PO BEDTIME 07/23/20 10/29/20 lisinopril 10 mg tablet 10 mg PO DAILY 07/23/20 10/29/20 sevelamer carbonate 800 mg tablet 800 mg PO TID 07/23/20 10/29/20 Previous Rx's Medication Instructions Recorded bgcnvqvkiz-cmibnilwtbamz-ftum 1 cap PO Q8H PRN #7 cap 03/06/20 [Fioricet] meclizine 25 mg PO TID PRN #14 tab 03/11/20 blood sugar diagnostic #100 ea 06/27/20 blood-glucose meter #1 ea 06/27/20 lancets 28 gauge #100 ea 06/27/20 insulin lispro 100 unit/mL 20 unit SUBCUT TID 30 Days #18 ml 07/25/20 subcutaneous pen bisacodyl 5 mg tablet,delayed 10 mg PO ONCE 1 Days #2 tab 09/19/20 release polyethylene glycol 3350 17 238 g PO ONCE 1 Days #238 g 09/19/20 gram/dose oral powder insulin glargine U-300 conc 300 32 unit SUBCUT DAILY 30 Days #6 ml 11/05/20 unit/mL (3 mL) subcutaneous pen Allergies Allergy/AdvReac Type Severity Reaction Status Date / Time No Known Allergies Allergy Verified 11/07/20 16:26 [No Known Allergies*] Review of Systems Review of Systems: Yes all other systems are reviewed and are negative [facility] Past Medical History [facility] Narrative: Social history: Patient denies tobacco, alcohol and drug use. Medical History AV fistula CAD (coronary artery disease) Dialysis patient ESRD (end stage renal disease) GERD (gastroesophageal reflux disease) HLD (hyperlipidemia) HTN (hypertension) Obesity due to excess calories Renal failure (ARF), acute on chronic T2DM (type 2 diabetes mellitus) Thyroid disease Surgical History History of kidney surgery Hx of bone graft Hx of cholecystectomy Family History Family History Father CVD (cardiovascular disease) Diabetes Mother Diabetes Sister Stomach cancer Social History Social History Household Members: Spouse Alcohol intake: never Patient Tobacco Use Status: Never used Tobacco Use of substances other than those prescribed or required for medical reasons: No Advance Directives: No Advance Directives Information Provided: Yes Current occupational status: disabled Physical Exam Vital Signs: Vital Signs: Last Vital Signs Temp 98.5 F 11/07/20 19:20 Pulse 80 11/07/20 19:20 Resp 18 11/07/20 19:20 BP 144/62 H 11/07/20 19:20 Pulse Ox 95 11/07/20 19:20 Body Mass Index 36.6 Const: General: cooperative and healthy appearing Orientation/consciousness: oriented to person and oriented to place Limitations: no limitations HENMT: Head: Yes normal to inspection, Yes normocephalic and Yes other (Tender right side of head, no hematomas) Ears: external ears normal General nose exam: Normal external nose present Face and sinus: Yes normal facial exam Mouth: Normal oral and palatal mucosa present Throat: Yes posterior oropharynx normal Eyes: Periorbital: periorbital findings normal Eyelids: Yes eyelids normal Conjunctivae: conjunctivae normal Sclerae: sclerae normal Corneas: corneas normal Pupils: Equal, round and reactive pupils present Direct Ophthalmoscopy: normal light reflex Neck: Neck: Yes no lymphadenopathy, Yes no meningeal signs, Yes trachea midline and Yes tender (C-spine, right trapezius) Chest: Chest palpation & inspection: normal inspection of the chest and normal palpation of entire chest wall Resp: Effort & Inspection: normal respiratory effort and able to speak in complete sentences Auscultation: clear to auscultation bilaterally Cardio: Rate: regular rate Rhythm: regular rhythm Heart sounds: S1 normal heart sound present, S2 normal heart sound present and no murmurs GI: Inspection: Yes normal to inspection Palpation (GI): Soft to palpation, nontender, no guarding, not rigid and No hepatosplenomegaly present : General: Yes no CVA tenderness Back/Spine/Pelvis: Back: no CVA tenderness Cervical Spine: normal cervical lordosis Thoracic/Lumbar Spine: thoracic and lumbar spine normal to inspection Skin: Lesions: no lesions Rashes: no rashes Wounds: no wounds Neuro: General: oriented to person, oriented to place and no meningeal signs Cranial nerves: Yes CN's II-XII intact bilaterally and Yes Equal, round and reactive pupils present Cognition (Neuro): normal cognition Motor exam (neuro): 5/5 motor strength present throughout Extrem: General: Yes normal to inspection and Yes full ROM Psych: Appearance: well kempt Mental Status: mental status grossly normal Speech and movement: Normal speech and movement present Affect: normal affect Attitude: cooperative Thought process: Normal thought process present Thought content: Normal thought content present Course Course Course Narrative: 55-year-old female who presents emergency department for evaluation of right-sided headache and right neck pain after falling 5 days prior. Patient does have tenderness with palpation of right-sided her head and her cervical spine as well as a right trapezius muscle. Her neurologic exam was nonfocal. I did order a CT head and C-spine. Patient's pain was treated with Toradol 30 mg IV, Benadryl 50 mg IV and Reglan 10 mg IV. 2042: Patient is feeling better after seeing the above medications, her symptoms have resolved completely. CT scan of the head and cervical spine revealed no acute fracture or bleed. The patient will be discharged home. The patient will be treated with Reglan and 10 mg, ibuprofen 600 mg and Benadryl 50 mg every 6 hours as needed for headache and pain. The patient was given verbal and printed instructions prior to discharge. The patient was advised to follow-up with their PCP in 2 days and to return to the emergency department if there symptoms get worse or if they develop any new symptoms that are concerning to them Discharge Plan Discharge Prescriptions: No Action (DME) blood-glucose meter [FreeStyle Lite Meter] Kit See Rx Instructions .ROUTE .MEDSUPPLY Qty: 1 RF: 0 (DME) FreeStyle Lite Strips Strip See Rx Instructions .ROUTE .MEDSUPPLY Qty: 100 RF: 11 (DME) lancets [FreeStyle Lancets] 28 gauge misc See Rx Instructions .ROUTE .MEDSUPPLY Qty: 100 RF: 11 insulin lispro [Humalog KwikPen Insulin] 100 unit/mL insulin pen 20 unit subcut TID 30 Days Qty: 18 RF: 11 meclizine 25 mg tablet 25 mg PO TID PRN (Reason: dizziness) Qty: 14 RF: 0 pcexltuylp-pphnznfwswfjr-xrpc [Fioricet] 50-300-40 mg capsule 1 cap PO Q8H PRN (Reason: pain) Qty: 7 RF: 0 aspirin 81 mg tablet,delayed release (DR/EC) 81 mg PO DAILY RF: 0 omeprazole 20 mg capsule,delayed release(DR/EC) 20 mg PO DAILY RF: 0 levothyroxine 25 mcg tablet 25 mcg PO DAILY RF: 0 amlodipine 10 mg tablet 10 mg PO DAILY RF: 0 Januvia 25 mg tablet 25 mg PO DAILY RF: 0 carvedilol 12.5 mg tablet 12.5 mg PO BID RF: 0 hydralazine 50 mg tablet 50 mg PO TID RF: 0 (DME) pen needle, diabetic [BD Ultra-Fine Micro Pen Needle] 32 gauge x 1/4 needle See Rx Instructions .ROUTE .MEDSUPPLY Qty: 50 RF: 0 cholecalciferol (vitamin D3) 1,250 mcg (50,000 unit) capsule 1,250 mcg PO QWEEK RF: 0 atorvastatin 40 mg tablet 40 mg PO BEDTIME RF: 0 gabapentin 100 mg capsule 100 mg PO BEDTIME RF: 0 lisinopril 10 mg tablet 10 mg PO DAILY RF: 0 sevelamer carbonate 800 mg tablet 800 mg PO TID RF: 0 bisacodyl [Dulcolax (bisacodyl)] 5 mg tablet,delayed release (DR/EC) 10 mg PO ONCE 1 Days Qty: 2 RF: 0 polyethylene glycol 3350 [Miralax] 17 gram/dose powder 238 g PO ONCE 1 Days Qty: 238 RF: 0 Toujeo Max U-300 SoloStar 300 unit/mL (3 mL) insulin pen 32 unit subcut DAILY 30 Days Qty: 6 RF: 3
[2020-11-07] MEDS: diphenhydrAMINE HCL 50 MG/ML VIAL IVPUSH (18:22)
[2020-11-07] MEDS: Ketorolac Tromethamine 30 MG/ML VIAL IVPUSH (18:24)
[2020-11-07] MEDS: Metoclopramide HCl 10 MG/2 ML VIAL IVPUSH (18:27)
[2020-11-07 19:20] VITALS: BP 144/62; PULSE 80; RESP 18; TEMP 36.9; O2SAT 95
--- NOTE | 2020-11-07 19:36 | PC.NURSE ---
Report taken from Alondra, this RN resuming care. Pt found resting in bed, reports some relief of pain. Lights dim for comfort. VSS. Continue to monitor.
[2020-11-07 20:59] VITALS: BP 153/79; PULSE 74; RESP 16; O2SAT 98
== END 2020-11-07 21:01 | disposition home or self-care (01) ==
PROVIDERS: Emergency Provider Emergency Medicine Emergency Medical Services; PCP Internal Medicine
DX: S16.1XXA Strain of muscle, fascia and tendon at neck level, initial encounter (principal); R51.9 Headache, unspecified; I12.0 Hypertensive chronic kidney disease with stage 5 chronic kidney disease or end stage renal disease; E11.22 Type 2 diabetes mellitus with diabetic chronic kidney disease; N18.6 End stage renal disease; Z79.4 Long term (current) use of insulin; Z79.899 Other long term (current) drug therapy; Z99.2 Dependence on renal dialysis; W01.0XXA Fall on same level from slipping, tripping and stumbling without subsequent striking against object, initial encounter; Y93.H9 Activity, other involving exterior property and land maintenance, building and construction; Y92.9 Unspecified place or not applicable; Y99.9 Unspecified external cause status
CPT/HCPCS: 70450; 72125; 96374; 96375; 99284; 99285; J1200; J1885; J2765

== ENCOUNTER → 2020-11-19 13:35 | Outpatient (BNVA) | payer MEDICAID, SELFPAY | PROVIDERS: PCP Internal Medicine; Referring Provider Internal Medicine; Visit Provider Internal Medicine Cardiovascular Disease | DX: Z01.810 Encounter for preprocedural cardiovascular examination (principal); E11.22 Type 2 diabetes mellitus with diabetic chronic kidney disease; E11.65 Type 2 diabetes mellitus with hyperglycemia; I12.9 Hypertensive chronic kidney disease with stage 1 through stage 4 chronic kidney disease, or unspecified chronic kidney disease; N18.6 End stage renal disease; I25.10 Atherosclerotic heart disease of native coronary artery without angina pectoris; E66.01 Morbid (severe) obesity due to excess calories; Z99.2 Dependence on renal dialysis; Z79.4 Long term (current) use of insulin; Z79.82 Long term (current) use of aspirin; Z79.899 Other long term (current) drug therapy | CPT/HCPCS: 93005; 99212 ==

== ENCOUNTER → 2020-11-22 14:57 | Outpatient (BNVA) | payer MEDICAID, SELFPAY | PROVIDERS: PCP Internal Medicine; Visit Provider Dietitian, Registered | DX: E11.65 Type 2 diabetes mellitus with hyperglycemia (principal); Z79.4 Long term (current) use of insulin | CPT/HCPCS: 97803 ==

== ENCOUNTER 2020-12-12 21:24 | Emergency (ER) | payer MEDICAID, SELFPAY ==
[2020-12-12 21:28] VITALS: BP 183/55; PULSE 82; RESP 16; TEMP 36.9; O2SAT 98; BMI 36.8
--- NOTE | 2020-12-12 21:58 | ED_ITS ---
HPI - Headache General Chief Complaint: Headache Stated Complaint: fall/ head neck inj Time Seen by Provider: 12/12/20 21:55 Source: patient and family Mode of arrival: ambulatory Limitations: no limitations History of Present Illness HPI Narrative: Patient has chronic pain especially in upper back for years was seen last month after the fall head CT and C-spine CT was negative patient complaining of continued pain for many years taking tramadol without much relief patient fell yesterday when her legs gave out and hit her head against a desk without loss of consciousness. Patient taking tramadol 1 tablet a day as needed for this pain. Related Data Home Medications Medication Instructions Recorded Confirmed amlodipine 10 mg tablet 10 mg PO DAILY 04/25/20 10/29/20 aspirin 81 mg tablet,delayed 81 mg PO DAILY 04/25/20 10/29/20 release carvedilol 12.5 mg tablet 12.5 mg PO BID 04/25/20 10/29/20 hydralazine 50 mg tablet 50 mg PO TID 04/25/20 10/29/20 levothyroxine 25 mcg tablet 25 mcg PO DAILY 04/25/20 10/29/20 omeprazole 20 mg capsule,delayed 20 mg PO DAILY 04/25/20 10/29/20 release pen needle, diabetic 32 gauge x #50 ea 04/25/20 10/29/2005/28 sitagliptin 25 mg tablet 25 mg PO DAILY 04/25/20 10/29/20 atorvastatin 40 mg tablet 40 mg PO BEDTIME 07/23/20 10/29/20 cholecalciferol (vitamin D3) 1,250 1,250 mcg PO QWEEK 07/23/20 10/29/20 mcg (50,000 unit) capsule gabapentin 100 mg capsule 100 mg PO BEDTIME 07/23/20 10/29/20 lisinopril 10 mg tablet 10 mg PO DAILY 07/23/20 10/29/20 sevelamer carbonate 800 mg tablet 800 mg PO TID 07/23/20 10/29/20 Previous Rx's Medication Instructions Recorded mmubejcren-[id number]-[id number] 1 cap PO Q8H PRN #7 cap 03/06/20 [Fioricet] meclizine 25 mg PO TID PRN #14 tab 03/11/20 blood sugar diagnostic #100 ea 06/27/20 blood-glucose meter #1 ea 06/27/20 lancets 28 gauge #100 ea 06/27/20 insulin lispro 100 unit/mL 20 unit SUBCUT TID 30 Days #18 ml 07/25/20 subcutaneous pen bisacodyl 5 mg tablet,delayed 10 mg PO ONCE 1 Days #2 tab 09/19/20 release polyethylene glycol 3350 17 238 g PO ONCE 1 Days #238 g 09/19/20 gram/dose oral powder insulin glargine U-300 conc 300 32 unit SUBCUT DAILY 30 Days #6 ml 11/05/20 unit/mL (3 mL) subcutaneous pen metoclopramide HCl [Reglan] 10 mg PO Q6H PRN #14 tab 11/07/20 cyclobenzaprine 5 mg PO TID PRN #30 tab 12/12/20 oxycodone 5 mg PO Q6H PRN #20 tab 12/12/20 Allergies Allergy/AdvReac Type Severity Reaction Status Date / Time No Known Allergies Allergy Verified 12/12/20 21:38 [No Known Allergies*] Review of Systems Review of Systems: Constitutional : No Weight loss, No Fever, No Chills ENT/Mouth : No sore throat, No Rhinorrhea Eyes: No Eye Pain, No Swelling Cardiovascular : No Chest Pain, no palpitations Respiratory : No Cough, No Sputum, no shortness of breath Gastrointestinal : no Nausea, No Vomiting, No Diarrhea, No abdominal Pain, no black stools Genitourinary : No Dysuria, No Urinary Frequency Musculoskeletal : No joint pain, +Myalgias, No Joint Swelling Skin : No Skin Lesions, No rash Neuro : No Weakness, No Numbness, No Dizziness, No Headache Psych : No Anxiety/Panic, No Depression Heme/Lymph: No Bruising, No Lymphadenopathy Endocrine : No Polyuria, No Polydipsia All other systems reviewed and are negative [facility] Past Medical History Medical History AV fistula CAD (coronary artery disease) Dialysis patient ESRD (end stage renal disease) GERD (gastroesophageal reflux disease) HLD (hyperlipidemia) HTN (hypertension) Obesity due to excess calories Renal failure (ARF), acute on chronic T2DM (type 2 diabetes mellitus) Thyroid disease Surgical History History of kidney surgery Hx of bone graft Hx of cholecystectomy Family History Family History Father CVD (cardiovascular disease) Diabetes Mother Diabetes Sister Stomach cancer Social History Social History Household Members: Spouse Alcohol intake: never Patient Tobacco Use Status: Never used Tobacco Use of substances other than those prescribed or required for medical reasons: No Advance Directives: No Advance Directives Information Provided: No Current occupational status: disabled Physical Exam Vital Signs: Vital Signs: Last Vital Signs Temp 98.5 F 12/12/20 21:28 Pulse 83 12/12/20 22:40 Resp 20 12/12/20 22:40 BP 181/78 H 12/12/20 22:40 Pulse Ox 98 12/12/20 22:40 Body Mass Index 36.8 Const: General: comfortable and acute distress mild Orientation/consciousness: patient oriented x3 HENMT: Head: Yes normocephalic and Yes atraumatic Ears: hearing grossly normal bilaterally Face and sinus: Yes normal facial exam Mouth: Normal oral and palatal mucosa present Eyes: General: appearance normal, both eyes and all related structures Neck: Neck: Yes normal visual inspection, Yes full ROM, No midline deformity and No tender Neck images: 1. Soft tissue tenderness 2. Soft tissue tenderness Chest: Chest palpation & inspection: normal inspection of the chest and normal palpation of entire chest wall Resp: Effort & Inspection: normal respiratory effort Auscultation: clear to auscultation bilaterally Cardio: Palpation: normal PMI Rate: regular rate Rhythm: regular rhythm Heart sounds: S1 normal heart sound present and S2 normal heart sound present Peripheral pulses: Peripheral pulses 2+ throughout GI: Inspection: Yes normal to inspection Palpation (GI): Soft to palpation and nontender Auscultation: normal bowel sounds : General: Yes no CVA tenderness Back/Spine/Pelvis: Back: no CVA tenderness Skin: General skin exam: no rashes or lesions noted Neuro: General: patient oriented x3, gait normal, tone normal, moves all extremities, no focal motor deficits and CN's II-XI intact bilaterally Extrem: General: Yes normal to inspection and Yes full ROM MDM - Headache MDM Narrative Medical decision making narrative: Patient's symptoms are likely from fibromyalgia chronic muscular pain which she has for years advised to take oxycodone and Flexeril as needed advised to follow with PCP patient had previous CT scan of the head and C-spine were negative Lab Data Attestation: I reviewed the patient's lab results. Labs: Lab Results 12/12/20 Range/Units 22:45 POC Glucose 238 H (60-115) mg/dL Discharge Plan Discharge Clinical Impression: Chronic pain disorder, Fibromyalgia Patient Disposition: Home, Self-Care Instructions: Fibromyalgia (ED) Additional Instructions: Take pain medication as prescribed and follow up with PCP Prescriptions: New oxycodone 5 mg tablet 5 mg PO Q6H PRN (Reason: Moderate Pain (Scale Score 5-6)) Qty: 20 RF: 0 cyclobenzaprine 5 mg tablet 5 mg PO TID PRN (Reason: muscle spasm) Qty: 30 RF: 0 No Action (DME) blood-glucose meter [FreeStyle Lite Meter] Kit See Rx Instructions .ROUTE .MEDSUPPLY Qty: 1 RF: 0 (DME) FreeStyle Lite Strips Strip See Rx Instructions .ROUTE .MEDSUPPLY Qty: 100 RF: 11 (DME) lancets [FreeStyle Lancets] 28 gauge misc See Rx Instructions .ROUTE .MEDSUPPLY Qty: 100 RF: 11 insulin lispro [Humalog KwikPen Insulin] 100 unit/mL insulin pen 20 unit subcut TID 30 Days Qty: 18 RF: 11 meclizine 25 mg tablet 25 mg PO TID PRN (Reason: dizziness) Qty: 14 RF: 0 metoclopramide HCl [Reglan] 10 mg tablet 10 mg PO Q6H PRN (Reason: nausea and vomiting) Qty: 14 RF: 0 jnnwnzcwnr-xofoznlfcbrnm-zvcz [Fioricet] 50-300-40 mg capsule 1 cap PO Q8H PRN (Reason: pain) Qty: 7 RF: 0 aspirin 81 mg tablet,delayed release (DR/EC) 81 mg PO DAILY RF: 0 omeprazole 20 mg capsule,delayed release(DR/EC) 20 mg PO DAILY RF: 0 levothyroxine 25 mcg tablet 25 mcg PO DAILY RF: 0 amlodipine 10 mg tablet 10 mg PO DAILY RF: 0 Januvia 25 mg tablet 25 mg PO DAILY RF: 0 carvedilol 12.5 mg tablet 12.5 mg PO BID RF: 0 hydralazine 50 mg tablet 50 mg PO TID RF: 0 (DME) pen needle, diabetic [BD Ultra-Fine Micro Pen Needle] 32 gauge x 1/4 needle See Rx Instructions .ROUTE .MEDSUPPLY Qty: 50 RF: 0 cholecalciferol (vitamin D3) 1,250 mcg (50,000 unit) capsule 1,250 mcg PO QWEEK RF: 0 atorvastatin 40 mg tablet 40 mg PO BEDTIME RF: 0 gabapentin 100 mg capsule 100 mg PO BEDTIME RF: 0 lisinopril 10 mg tablet 10 mg PO DAILY RF: 0 sevelamer carbonate 800 mg tablet 800 mg PO TID RF: 0 bisacodyl [Dulcolax (bisacodyl)] 5 mg tablet,delayed release (DR/EC) 10 mg PO ONCE 1 Days Qty: 2 RF: 0 polyethylene glycol 3350 [Miralax] 17 gram/dose powder 238 g PO ONCE 1 Days Qty: 238 RF: 0 Toujeo Max U-300 SoloStar 300 unit/mL (3 mL) insulin pen 32 unit subcut DAILY 30 Days Qty: 6 RF: 3
[2020-12-12 22:40] VITALS: BP 181/78; PULSE 83; RESP 20; O2SAT 98
[2020-12-12] MEDS: LORazepam 1 MG TABLET PO (22:42)
[2020-12-12] MEDS: Cyclobenzaprine HCl 5 MG TABLET PO (22:42)
[2020-12-12] MEDS: oxyCODONE HCl Immed Release 5 MG TABLET PO (22:42)
[2020-12-12 22:49] LABS: Glucose, Whole Blood 238 mg/dL (60-115)
== END 2020-12-12 23:10 | disposition home or self-care (01) ==
PROVIDERS: Emergency Provider Internal Medicine; PCP Internal Medicine
DX: G89.29 Other chronic pain (principal); M79.7 Fibromyalgia; E11.22 Type 2 diabetes mellitus with diabetic chronic kidney disease; I12.0 Hypertensive chronic kidney disease with stage 5 chronic kidney disease or end stage renal disease; N18.6 End stage renal disease; Z79.4 Long term (current) use of insulin; Z79.82 Long term (current) use of aspirin; Z79.891 Long term (current) use of opiate analgesic; Z79.899 Other long term (current) drug therapy; Z99.2 Dependence on renal dialysis
CPT/HCPCS: 82947; 99283; 99284

== ENCOUNTER → 2020-12-21 08:32 | Outpatient (REF) | payer MEDICAID, SELFPAY ==
--- NOTE | 2020-12-21 08:36 | CA_ITS ---
Transthoracic Echocardiogram Patient (Last, First, Middle): Sarah Dixon, Gender: Female Date of : 1965 Age: 55 Procedure Date: 12/21/2020 Procedure Type: Transthoracic Echocardiogram Location: OP Height: 160.02 cm Weight: 93.9 kg BSA: 1.96 m2 Heart Rate: bpm BP: 128 / 70 mmHg [employer] Operator: Referring MD: Elías Maddox MD Symptoms: I25.10 - Atherosclerotic heart disease of [place] coronary... Study Quality: Fair ECG Rhythm: Sinus Conclusions: - The left ventricular systolic function is normal. The visually estimated ejection fraction is between 60-65%. - Evidence suggests grade II (moderate) diastolic dysfunction. - The basal inferior and basal inferoseptal segments are hypokinetic. - No obvious valvular pathology seen on this study. - There is a small loculated pericardial effusion overlying the left ventricle and right atrium. Findings Left Ventricle Normal left ventricular cavity size. There is mildly increased left ventricular wall thickness. The left ventricular systolic function is normal. The visually estimated ejection fraction is between 60-65%. E/E prime ratio is >15, consistent with elevated filling pressures. Evidence suggests grade II (moderate) diastolic dysfunction. Wall Motion Rest Echo Findings The basal inferior and basal inferoseptal segments are hypokinetic. Right Ventricle Normal right ventricular cavity size and systolic function. Atria The left atrium is mildly dilated. The right atrium is normal in size. Aortic Valve There is a normal trileaflet aortic valve. There is no aortic valve stenosis. There is no aortic valve regurgitation. Mitral Valve The mitral valve appears normal. There is trace mitral valve regurgitation. There is no mitral valve stenosis. Pulmonic Valve The pulmonic valve was not well visualized. Tricuspid Valve Normal tricuspid valve structure. There is trace tricuspid valve regurgitation. The pulmonary artery systolic pressure is normal. Great Vessels The aortic annulus, sinuses of valsalva, and asc aorta are normal in size. Venous The inferior vena cava is normal in size and collapses greater than 50% with inspiration. Pericardium/Pleural There is a small loculated pericardial effusion overlying the left ventricle and right atrium. There are no definitive echocardiographic findings of tamponade physiology. Prior Study Comparison Changes noted compared to prior study dated: 05/28/2019. See comments on wall motion, diastolic function, pericardial effusion. Recommendations, Care & Conclusions No obvious valvular pathology seen on this study. Measurements 2D Linear Measurements IVSd: 1.27 0.6-0.9/0.6-1.0 cm LVIDd: 4.63 3.9-5.3/4.2-5.9 cm LVIDd Index: 2.36 2.4-3.2/2.2-3.1 cm/m2 LVIDs: 3.01 2.0-3.6 cm LVPWd: 1.20 0.7-1.1 cm Ao Root: 2.80 2.1-3.5 cm LA Diam: 4.20 2.7-3.8/3.0-4.0 cm LAIDs Index: 2.14 1.5-2.3 cm/m2 LV Mass: 269.00 67-162/88-224 g LV Mass Index: 137.25 43-95/49-115 g/m2 LVOT Diam: 2.00 3.0+(-)1.3 cm 2D Systolic Function EF 4C: 55.20 >55% EF 2C: 54.60 >55% EF BiP: 55.70 >55% Mitral Valve MV Pk E: 0.98 MV PK A: 0.82 MV Decel Time: 123.00 E/A: 1.20 E'Lateral: 7.51 E'Medial: 3.70 E/E' Med: 26.40 E/E' Lat: 13.00 PHT: 36.00 MVA PHT: 6.11 Decel Wetzel: 7.93 Aortic Valve AoV Pk Ash: 1.35 AoV Mn Ash: 0.96 AoV VTI: 0.32 AoV Pk Grad: 7.00 Aov Mn Grad: 4.00 [facility] Cont.VTI: 2.15 LVOT LVOT Pk Ash: 0.83 LVOT Mn Ash: 0.56 LVOT VTI: 0.22 LVOT Pk Grad: 3.00 LVOT Mn Grad: 1.00 LVOT Diam: 2.00 LVOT Area: 3.14 Diastolic Function MV Pk E: 0.98 MV Pk A: 0.82 E/A: 1.20 E'Medial: 3.70 E/E' Med: 26.40 E' Laterial: 7.51 E/E' Lat: 13.00 Right Ventricle TAPSE (mm): 2.29 Tricuspid Valve TR Pk Ash: 2.20 TR Pk Grad: 19.00 RA Press: 3.00 RVSP: 22.00 Great Vessels Aorta Ao Root-2D: 2.80 2.0-3.7 cm Ao Asc: 3.10 2.1-3.4 cm Pulmonary Valve PV Pk Ash: 1.22 Peak PV Grad: 6.00 Updated in Other Vendor System with Status of Final Ren Eduardo MD electronically signed on 12/22/2020 1:36:47 PM with status of Final
== END ==
LOC: HO.CARD 08:32
PROVIDERS: Visit Provider Internal Medicine Cardiovascular Disease
DX: I25.10 Atherosclerotic heart disease of native coronary artery without angina pectoris (principal)
CPT/HCPCS: 93306

== ENCOUNTER → 2021-02-05 12:40 | Outpatient (BNVA) | payer MEDICAID, SELFPAY | PROVIDERS: PCP Internal Medicine; Visit Provider Nurse Practitioner Gerontology | DX: E11.65 Type 2 diabetes mellitus with hyperglycemia (principal); E78.5 Hyperlipidemia, unspecified; E11.22 Type 2 diabetes mellitus with diabetic chronic kidney disease; I12.9 Hypertensive chronic kidney disease with stage 1 through stage 4 chronic kidney disease, or unspecified chronic kidney disease; N18.6 End stage renal disease; Z79.4 Long term (current) use of insulin | CPT/HCPCS: 82947; 83036; 99212 ==

== ENCOUNTER 2021-02-12 00:27 | Inpatient (IN) | payer MEDICAID, SELFPAY ==
[2021-02-12] VITALS (12 sets, daily range): BP systolic 120–161; BP diastolic 50–89; PULSE 76–91; RESP 14–23; TEMP 36.2–38.1; O2SAT 88–98; BMI 36.6
--- NOTE | 2021-02-12 | ECG_ITS ---
Test Reason : SOB Blood Pressure : / mmHG Vent. Rate : 082 BPM Atrial Rate : 082 BPM P-R Int : 210 ms QRS Dur : 086 ms QT Int : 382 ms P-R-T Axes : 053 116 044 degrees QTc Int : 446 ms Sinus rhythm with 1st degree A-V block Right axis deviation Abnormal ECG When compared with ECG of 12-FEB-2021 00:47, Right axis deviation is now Present Referred By: Juanito Blake Electronically Signed By:SAMY SANTIAGO
--- NOTE | ~2021-02-12 | XR_ITS ---
EXAMINATION: XR CHEST CLINICAL INFORMATION: Cough and fever COMPARISON: 07/31/2020 TECHNIQUE: Frontal view of the chest was obtained. FINDINGS: The lungs are hypoinflated. There is prominence of the central vasculature, and patchy bilateral perihilar opacities are suspected. No evidence of pneumothorax. Trace pleural effusions cannot be excluded. Cardiac silhouette remains enlarged. Redemonstrated chronic right clavicular fracture. XR/XR chest 1V IMPRESSION: Low lung volumes limits evaluation. Prominent central vasculature and suggestion of perihilar airspace opacities bilaterally which could be secondary to developing pneumonia or edema. Short-term radiographic follow-up with improved inspiratory effort would be helpful.
--- NOTE | 2021-02-12 00:31 | ED_ITS ---
HPI - SOB/Dyspnea General Chief Complaint: General Medical <Juan Miguel Dorantes MD - Last Filed: 02/12/21 01:48> Stated Complaint: cough x3days <Juan Miguel Dorantes MD - Last Filed: 02/12/21 01:48> Time Seen by Provider: 02/12/21 00:31 <Juan Miguel Dorantes MD - Last Filed: 02/12/21 01:48> Source: patient <Juan Miguel Dorantes MD - Last Filed: 02/12/21 01:48> Mode of arrival: EMS <Juan Miguel Dorantes MD - Last Filed: 02/12/21 01:48> Limitations: no limitations <Juan Miguel Dorantes MD - Last Filed: 02/12/21 01:48> History of Present Illness HPI Narrative: Patient missed her dialysis today. She goes Thursday, Thursday and Thursday. Saturation 80% when EMS found her. Patient states that she was told to come to the ED from the dialysis. <Juan Miguel Dorantes MD - Last Filed: 02/12/21 01:48> MD elicited complaint: shortness of breath and cough <Juan Miguel Dorantes MD - Last Filed: 02/12/21 01:48> Pertinent past history: other (ESRD) <Juan Miguel Dorantes MD - Last Filed: 02/12/21 01:48> Onset (ago): hour(s) <Juan Miguel Dorantes MD - Last Filed: 02/12/21 01:48> Timing: constant <Juan Miguel Dorantes MD - Last Filed: 02/12/21 01:48> Severity: mild <Juan Miguel Dorantes MD - Last Filed: 02/12/21 01:48> Exacerbating factors: exertion <Juan Miguel Dorantes MD - Last Filed: 02/12/21 01:48> Associated symptoms: cough <Juan Miguel Dorantes MD - Last Filed: 02/12/21 01:48> Related Data Home Medications: Home Medications Medication Instructions Recorded Confirmed amlodipine 10 mg tablet 1 tab PO QAM 02/12/21 02/12/21 aspirin 81 mg tablet,delayed 1 tab PO DAILY 02/12/21 02/12/21 release atorvastatin 40 mg tablet 1 tab PO DAILY 02/12/21 02/12/21 ergocalciferol (vitamin D2) 1,250 1 cap PO QWEEK 02/12/21 02/12/21 mcg (50,000 unit) capsule gabapentin 100 mg capsule 200 mg PO BID 02/12/21 02/12/21 hydralazine 50 mg tablet 1 tab PO TID 02/12/21 02/12/21 insulin lispro 100 unit/mL 20 unit SUBCUT TID 02/12/21 02/12/21 subcutaneous pen (Humalog KwikPen (U-100) Insulin) levothyroxine 25 mcg tablet 1 tab PO QAM 02/12/21 02/12/21 lisinopril 10 mg tablet 1 tab PO BEDTIME 02/12/21 02/12/21 melatonin 5 mg tablet 1 tab PO BEDTIME 02/12/21 02/12/21 omeprazole 40 mg capsule,delayed 1 cap PO DAILY 02/12/21 02/12/21 release sevelamer carbonate 800 mg tablet 1 tab PO QID 02/12/21 02/12/21 sitagliptin 25 mg tablet (Januvia) 1 tab PO QAM 02/12/21 02/12/21 Previous Rx's Medication Instructions Recorded blood sugar diagnostic (FreeStyle #100 ea 06/27/20 Lite Strips) blood-glucose meter (FreeStyle #1 ea 06/27/20 Lite Meter) lancets 28 gauge (FreeStyle #100 ea 06/27/20 Lancets) pen needle, diabetic 32 gauge x #50 ea 01/14/21 1/ (BD Ultra-Fine Micro Pen Needle) <Juan Miguel Dorantes MD - Last Filed: 02/12/21 01:48> Allergies/Adverse Reactions: Allergies Allergy/AdvReac Type Severity Reaction Status Date / Time No Known Allergies Allergy Verified 02/12/21 01:37 [No Known Allergies*] <Juan Miguel Dorantes MD - Last Filed: 02/12/21 01:48> Review of Systems Constitutional: Constitutional: Reports no additional constitutional complaints <Juan Miguel Dorantes MD - Last Filed: 02/12/21 01:48> Eyes: Eyes: Reports no additional eye complaints <Juan Miguel Dorantes MD - Last Filed: 02/12/21 01:48> ENT: Denies dizziness <Juan Miguel Dorantes MD - Last Filed: 02/12/21 01:48> Cardiovascular: Cardiovascular: Reports no additional cardiovascular complaints <Juan Miguel Dorantes MD - Last Filed: 02/12/21 01:48> Respiratory: Respiratory: Reports as per HPI <Juan Miguel Dorantes MD - Last Filed: 02/12/21 01:48> Gastrointestinal: Gastrointestinal: Reports no additional gastrointestinal complaints <Juan Miguel Dorantes MD - Last Filed: 02/12/21 01:48> Genitourinary: Genitourinary: Reports no additional female genitourinary complaints <Juan Miguel Dorantes MD - Last Filed: 02/12/21 01:48> Musculoskeletal: Musculoskeletal: Reports no additional musculoskeletal complaints <Juan Miguel Dorantes MD - Last Filed: 02/12/21 01:48> Integumentary/Breasts: Skin/Breast: Denies rash <Juan Miguel Dorantes MD - Last Filed: 02/12/21 01:48> Neurologic: Reports system reviewed and no additional complaints, except as documented, Denies dizziness and Denies Sensory deficit (Neuro) <Juan Miguel Dorantes MD - Last Filed: 02/12/21 01:48> Psychiatric: Psychiatric: Denies anxiety <Juan Miguel Dorantes MD - Last Filed: 02/12/21 01:48> [facility] Past Medical History Medical History: Medical History AV fistula CAD (coronary artery disease) Dialysis patient ESRD (end stage renal disease) GERD (gastroesophageal reflux disease) HLD (hyperlipidemia) HTN (hypertension) Obesity due to excess calories Renal failure (ARF), acute on chronic T2DM (type 2 diabetes mellitus) Thyroid disease <Juan Miguel Dorantes MD - Last Filed: 02/12/21 01:48> Surgical History: Surgical History History of kidney surgery Hx of bone graft Hx of cholecystectomy <Juan Miguel Dorantes MD - Last Filed: 02/12/21 01:48> Family History Family History: Family History Father CVD (cardiovascular disease) Diabetes Mother Diabetes Sister Stomach cancer <Juan Miguel Dorantes MD - Last Filed: 02/12/21 01:48> Social History Social History: Social History Household Members: Spouse Alcohol intake: never Patient Tobacco Use Status: Never used Tobacco Advance Directives: No Advance Directives Information Provided: No Current occupational status: disabled <Juan Miguel Dorantes MD - Last Filed: 02/12/21 01:48> Physical Exam Vital Signs: Vital Signs: Last Vital Signs Temp 99.7 F 02/12/21 02:51 Pulse 82 02/12/21 04:50 Resp 16 02/12/21 04:50 BP 161/71 H 02/12/21 04:50 Pulse Ox 94 02/12/21 04:50 Oxygen Flow Rate 4 02/12/21 00:36 Body Mass Index 36.6 <Juan Miguel Doarntes MD - Last Filed: 02/12/21 01:48> Vital Signs: Last Vital Signs Temp 99.7 F 02/12/21 02:51 Pulse 82 02/12/21 04:50 Resp 16 02/12/21 04:50 BP 161/71 H 02/12/21 04:50 Pulse Ox 94 02/12/21 04:50 Oxygen Flow Rate 4 02/12/21 00:36 Body Mass Index 36.6 <Trent Gamez MD - Last Filed: 02/12/21 05:44> Const: Other: ill appearing, coughing <Juan Miguel Dorantes MD - Last Filed: 02/12/21 01:48> Nutritional Appearance: obese <Juan Miguel Dorantes MD - Last Filed: 02/12/21 01:48> Orientation/consciousness: oriented to person and patient oriented x3 <Juan Miguel Dorantes MD - Last Filed: 02/12/21 01:48> Limitations: no limitations <Juan Miguel Dorantes MD - Last Filed: 02/12/21 01:48> HENMT: Head: Yes normal to inspection <Juan Miguel Dorantes MD - Last Filed: 02/12/21 01:48> Ears: external ears normal <Juan Miguel Dorantes MD - Last Filed: 02/12/21 01:48> General nose exam: Normal external nose present <Juan Miguel Dorantes MD - Last Filed: 02/12/21 01:48> Mouth: Normal oral and palatal mucosa present and oropharynx normal <Juan Miguel Dorantes MD - Last Filed: 02/12/21 01:48> Throat: Yes posterior oropharynx normal <Juan Miguel Dorantes MD - Last Filed: 02/12/21 01:48> Eyes: General: appearance normal, both eyes and all related structures <Juan Miguel Dorantes MD - Last Filed: 02/12/21 01:48> Neck: Other: supple <Juan Miguel Dorantes MD - Last Filed: 02/12/21 01:48> Neck: Yes normal visual inspection <Juan Miguel Dorantes MD - Last Filed: 02/12/21 01:48> Chest: Chest palpation & inspection: normal inspection of the chest <Juan Miguel Dorantes MD - Last Filed: 02/12/21 01:48> Resp: Other: bilateral rales <Juan Miguel Dorantes MD - Last Filed: 02/12/21 01:48> Cardio: Jugular venous distension: no JVD <Juan Miguel Dorantes MD - Last Filed: 02/12/21 01:48> Rate: regular rate <Juan Miguel Dorantes MD - Last Filed: 02/12/21 01:48> Rhythm: regular rhythm <Juan Miguel Dorantes MD - Last Filed: 02/12/21 01:48> Heart sounds: S1 normal heart sound present and S2 normal heart sound present <Juan Miguel Dorantes MD - Last Filed: 02/12/21 01:48> GI: Inspection: Yes normal to inspection <Juan Miguel Dorantes MD - Last Filed: 02/12/21 01:48> Palpation (GI): Soft to palpation, nontender and No hepatosplenomegaly present <Juan Miguel Dorantes MD - Last Filed: 02/12/21 01:48> Auscultation: normal bowel sounds <Juan Miguel Dorantes MD - Last Filed: 02/12/21 01:48> : General: Yes no CVA tenderness <Juan Miguel Dorantes MD - Last Filed: 02/12/21 01:48> Back/Spine/Pelvis: Back: no CVA tenderness <Juan Migeul Dorantes MD - Last Filed: 02/12/21 01:48> Skin: General skin exam: no rashes or lesions noted <Juan Miguel Dorantes MD - Last Filed: 02/12/21 01:48> Neuro: General: oriented to person and patient oriented x3 <Juan Miguel Dorantes MD - Last Filed: 02/12/21 01:48> Cranial nerves: Yes CN's II-XII intact bilaterally <Juan Miguel Dorantes MD - Last Filed: 02/12/21 01:48> Motor exam (neuro): 5/5 motor strength present throughout <Juan Miguel Dorantes MD - Last Filed: 02/12/21 01:48> Sensory Exam: No Sensory deficit (Neuro) <Juan Miguel Dorantes MD - Last Filed: 02/12/21 01:48> Extrem: General: Yes normal to inspection <Juan Miguel Dorantes MD - Last Filed: 02/12/21 01:48> Psych: Appearance: grossly normal <Juan Miguel Dorantes MD - Last Filed: 02/12/21 01:48> Course Reevaluation(s) Reevaluation #1: Patient with shortness of breath and hypoxia, this can be secondary to fluid overload or infetion. Currently awaiting work up. signed out to Dr. Gamez. <Juan Miguel Dorantes MD - Last Filed: 02/12/21 01:48> Time: 01:48 <Juan Miguel Dorantes MD - Last Filed: 02/12/21 01:48> MDM - SOB/Dyspnea MDM Narrative Medical decision making narrative: 220 am:Patient with end-stage renal disease with fluid overload CHF also noticed to positive for RSV patient is very lethargic obtunded clinically possible sleep apnea will get ABG to see the CO2 level IV Lasix was given IV Rocephin started possible lung infiltrate will admit to medical floor <Trent Gamez MD - Last Filed: 02/12/21 05:44> Lab Data Attestation: I reviewed the patient's lab results. <Trent Gamez MD - Last Filed: 02/12/21 05:44> Result diagrams: : 02/12/21 01:08 02/12/21 01:38 <Juan Miguel Dorantes MD - Last Filed: 02/12/21 01:48> Labs: Lab Results 02/12/21 02/12/21 02/12/21 Range/Units 00:56 00:57 01:08 WBC 7.1 (4.8-10.8) X10*3/uL RBC 2.67 L D (4.20-5.50) X10*6/uL Hgb 8.0 L D (12.0-16.0) g/dl Hct 24.6 L (37-47) % MCV 92.1 (80-98) fL MCH 30.0 (27.0-33.0) pg MCHC 32.5 (31.0-35.0) g/dl RDW 14.6 (11.0-16.0) % Plt Count 187 (160-400) X10*3/uL MPV 12.2 (9.4-12.3) fL Immature Gran % (Auto) 0.7 H (0.0-0.4) % Neut % (Auto) 73.9 H (45-73) % Lymph % (Auto) 16.8 L (20-40) % [place] % (Auto) 6.3 (2-11) % Eos % (Auto) 1.7 (0-4) % Baso % (Auto) 0.6 (0-2) % Lymph # (Auto) 1.2 (1.2-4.9) X10*3/uL [place] # (Auto) 0.5 (0.1-1.2) X10*3/uL Eos # (Auto) 0.1 (0.0-0.4) X10*3/uL Baso # (Auto) 0.0 (0.0-0.2) X10*3/uL Abs Immat Gran (auto) 0.05 H (0.00-0.03) X10*3/uL Absolute Neuts (auto) 5.3 (2.0-8.3) X10*3/uL Absolute Nucleated RBC 0.000 (0.0-0.012) X10*3/uL Nucleated RBC % (auto) 0.0 (0.0-0.2) /100WBC O2 Saturation % ABG pH at Pt Temp (7.35-7.45) ABG pH (Temp Correct) (7.35-7.45) ABG pCO2 at Pt Temp (32-45) mmHg ABG pCO2 (Temp Corrct (32-45) mmHg ABG pO2 at Pt Temp (83-108) mmHg ABG pO2 (Temp Correct (83-108) ABG HCO3 (22-26) mmol/L ABG Base Excess (Actual) mmol/L Sodium (135-145) mmol/L Potassium (3.3-5.1) mmol/L Chloride (96-108) mmol/L Carbon Dioxide (22-29) mmol/L Anion Gap (12-20) BUN (9-16) mg/dL Creatinine (0.5-1.4) mg/dL Estim Creat Clear Calc Estimated GFR Random Glucose (60-115) mg/dL Lactic Acid (0.5-2.0) mmol/L Calcium (8.4-10.2) mg/dL Troponin I High Sens (<3.5-17.0) ng/L B-Natriuretic Peptide (<100) pg/mL Urine Color Urine Appearance Urine pH (5.0-8.0) Ur Specific [place] (1.005-1.025) Urine Protein (NEG-TRACE) MG/DL Urine Glucose (UA) (NEG) MG/DL Urine Ketones (NEG) MG/DL Urine Blood (NEG) Urine Nitrite (NEG) Ur Leukocyte Esterase (NEG) Urine RBC (0) /HPF Urine WBC (0-4) /HPF Ur Squamous Epith Cells /LPF Ur Renal Epithelial Cell /LPF Urine Bacteria /LPF Granular Casts /LPF Urine Mucus /LPF Urine Yeast /HPF Coronavirus (PCR) NEGATIVE Cancelled (Negative) Influenza Type A (PCR) NEGATIVE Cancelled (Negative) Influenza Type B (PCR) NEGATIVE Cancelled (Negative) RSV RNA Qual (PCR) POSITIVE A Cancelled (Negative) 02/12/21 02/12/21 02/12/21 Range/Units 01:08 01:10 01:38 WBC (4.8-10.8) X10*3/uL RBC (4.20-5.50) X10*6/uL Hgb (12.0-16.0) g/dl Hct (37-47) % MCV (80-98) fL MCH (27.0-33.0) pg MCHC (31.0-35.0) g/dl RDW (11.0-16.0) % Plt Count (160-400) X10*3/uL MPV (9.4-12.3) fL Immature Gran % (Auto) (0.0-0.4) % Neut % (Auto) (45-73) % Lymph % (Auto) (20-40) % [place] % (Auto) (2-11) % Eos % (Auto) (0-4) % Baso % (Auto) (0-2) % Lymph # (Auto) (1.2-4.9) X10*3/uL [place] # (Auto) (0.1-1.2) X10*3/uL Eos # (Auto) (0.0-0.4) X10*3/uL Baso # (Auto) (0.0-0.2) X10*3/uL Abs Immat Gran (auto) (0.00-0.03) X10*3/uL Absolute Neuts (auto) (2.0-8.3) X10*3/uL Absolute Nucleated RBC (0.0-0.012) X10*3/uL Nucleated RBC % (auto) (0.0-0.2) /100WBC O2 Saturation % ABG pH at Pt Temp (7.35-7.45) ABG pH (Temp Correct) (7.35-7.45) ABG pCO2 at Pt Temp (32-45) mmHg ABG pCO2 (Temp Corrct (32-45) mmHg ABG pO2 at Pt Temp (83-108) mmHg ABG pO2 (Temp Correct (83-108) ABG HCO3 (22-26) mmol/L ABG Base Excess (Actual) mmol/L Sodium 136 (135-145) mmol/L Potassium 5.4 H (3.3-5.1) mmol/L Chloride 98 (96-108) mmol/L Carbon Dioxide 22 (22-29) mmol/L Anion Gap 21 H (12-20) BUN 89 H* D (9-16) mg/dL Creatinine 8.68 H* (0.5-1.4) mg/dL Estim Creat Clear Calc 8.0 Estimated GFR 5 Random Glucose 301 H D (60-115) mg/dL Lactic Acid 1.8 (0.5-2.0) mmol/L Calcium 8.2 L D (8.4-10.2) mg/dL Troponin I High Sens 369.8 H* (<3.5-17.0) ng/L B-Natriuretic Peptide 1298 H (<100) pg/mL Urine Color Urine Appearance Urine pH (5.0-8.0) Ur Specific [place] (1.005-1.025) Urine Protein (NEG-TRACE) MG/DL Urine Glucose (UA) (NEG) MG/DL Urine Ketones (NEG) MG/DL Urine Blood (NEG) Urine Nitrite (NEG) Ur Leukocyte Esterase (NEG) Urine RBC (0) /HPF Urine WBC (0-4) /HPF Ur Squamous Epith Cells /LPF Ur Renal Epithelial Cell /LPF Urine Bacteria /LPF Granular Casts /LPF Urine Mucus /LPF Urine Yeast /HPF Coronavirus (PCR) (Negative) Influenza Type A (PCR) (Negative) Influenza Type B (PCR) (Negative) RSV RNA Qual (PCR) (Negative) 02/12/21 02/12/21 02/12/21 Range/Units 02:39 02:55 03:45 WBC (4.8-10.8) X10*3/uL RBC (4.20-5.50) X10*6/uL Hgb (12.0-16.0) g/dl Hct (37-47) % MCV (80-98) fL MCH (27.0-33.0) pg MCHC (31.0-35.0) g/dl RDW (11.0-16.0) % Plt Count (160-400) X10*3/uL MPV (9.4-12.3) fL Immature Gran % (Auto) (0.0-0.4) % Neut % (Auto) (45-73) % Lymph % (Auto) (20-40) % [place] % (Auto) (2-11) % Eos % (Auto) (0-4) % Baso % (Auto) (0-2) % Lymph # (Auto) (1.2-4.9) X10*3/uL [place] # (Auto) (0.1-1.2) X10*3/uL Eos # (Auto) (0.0-0.4) X10*3/uL Baso # (Auto) (0.0-0.2) X10*3/uL Abs Immat Gran (auto) (0.00-0.03) X10*3/uL Absolute Neuts (auto) (2.0-8.3) X10*3/uL Absolute Nucleated RBC (0.0-0.012) X10*3/uL Nucleated RBC % (auto) (0.0-0.2) /100WBC O2 Saturation 92.0 % ABG pH at Pt Temp 7.41 (7.35-7.45) ABG pH (Temp Correct) 7.40 (7.35-7.45) ABG pCO2 at Pt Temp 37 (32-45) mmHg ABG pCO2 (Temp Corrct 39 (32-45) mmHg ABG pO2 at Pt Temp 75 L (83-108) mmHg ABG pO2 (Temp Correct 80 L (83-108) ABG HCO3 24 (22-26) mmol/L ABG Base Excess (Actual) 0.3 mmol/L Sodium (135-145) mmol/L Potassium (3.3-5.1) mmol/L Chloride (96-108) mmol/L Carbon Dioxide (22-29) mmol/L Anion Gap (12-20) BUN (9-16) mg/dL Creatinine (0.5-1.4) mg/dL Estim Creat Clear Calc Estimated GFR Random Glucose (60-115) mg/dL Lactic Acid (0.5-2.0) mmol/L Calcium (8.4-10.2) mg/dL Troponin I High Sens 372.7 H* (<3.5-17.0) ng/L B-Natriuretic Peptide (<100) pg/mL Urine Color YELLOW Urine Appearance HAZY Urine pH 5.5 (5.0-8.0) Ur Specific [place] >= 1.030 H (1.005-1.025) Urine Protein 2+ H (NEG-TRACE) MG/DL Urine Glucose (UA) NEG (NEG) MG/DL Urine Ketones NEG (NEG) MG/DL Urine Blood NEG (NEG) Urine Nitrite NEG (NEG) Ur Leukocyte Esterase 1+ H (NEG) Urine RBC 1-4 (0) /HPF Urine WBC 15-29 H (0-4) /HPF Ur Squamous Epith Cells 1+ /LPF Ur Renal Epithelial Cell 1+ /LPF Urine Bacteria 1+ /LPF Granular Casts 1-4 /LPF Urine Mucus 1+ /LPF Urine Yeast 4+ /HPF Coronavirus (PCR) (Negative) Influenza Type A (PCR) (Negative) Influenza Type B (PCR) (Negative) RSV RNA Qual (PCR) (Negative) <Juan Miguel Dorantes MD - Last Filed: 02/12/21 01:48> Lab Results 02/12/21 02/12/21 02/12/21 Range/Units 00:56 00:57 01:08 WBC 7.1 (4.8-10.8) X10*3/uL RBC 2.67 L D (4.20-5.50) X10*6/uL Hgb 8.0 L D (12.0-16.0) g/dl Hct 24.6 L (37-47) % MCV 92.1 (80-98) fL MCH 30.0 (27.0-33.0) pg MCHC 32.5 (31.0-35.0) g/dl RDW 14.6 (11.0-16.0) % Plt Count 187 (160-400) X10*3/uL MPV 12.2 (9.4-12.3) fL Immature Gran % (Auto) 0.7 H (0.0-0.4) % Neut % (Auto) 73.9 H (45-73) % Lymph % (Auto) 16.8 L (20-40) % [place] % (Auto) 6.3 (2-11) % Eos % (Auto) 1.7 (0-4) % Baso % (Auto) 0.6 (0-2) % Lymph # (Auto) 1.2 (1.2-4.9) X10*3/uL [place] # (Auto) 0.5 (0.1-1.2) X10*3/uL Eos # (Auto) 0.1 (0.0-0.4) X10*3/uL Baso # (Auto) 0.0 (0.0-0.2) X10*3/uL Abs Immat Gran (auto) 0.05 H (0.00-0.03) X10*3/uL Absolute Neuts (auto) 5.3 (2.0-8.3) X10*3/uL Absolute Nucleated RBC 0.000 (0.0-0.012) X10*3/uL Nucleated RBC % (auto) 0.0 (0.0-0.2) /100WBC O2 Saturation % ABG pH at Pt Temp (7.35-7.45) ABG pH (Temp Correct) (7.35-7.45) ABG pCO2 at Pt Temp (32-45) mmHg ABG pCO2 (Temp Corrct (32-45) mmHg ABG pO2 at Pt Temp (83-108) mmHg ABG pO2 (Temp Correct (83-108) ABG HCO3 (22-26) mmol/L ABG Base Excess (Actual) mmol/L Sodium (135-145) mmol/L Potassium (3.3-5.1) mmol/L Chloride (96-108) mmol/L Carbon Dioxide (22-29) mmol/L Anion Gap (12-20) BUN (9-16) mg/dL Creatinine (0.5-1.4) mg/dL Estim Creat Clear Calc Estimated GFR Random Glucose (60-115) mg/dL Lactic Acid (0.5-2.0) mmol/L Calcium (8.4-10.2) mg/dL Troponin I High Sens (<3.5-17.0) ng/L B-Natriuretic Peptide (<100) pg/mL Urine Color Urine Appearance Urine pH (5.0-8.0) Ur Specific [place] (1.005-1.025) Urine Protein (NEG-TRACE) MG/DL Urine Glucose (UA) (NEG) MG/DL Urine Ketones (NEG) MG/DL Urine Blood (NEG) Urine Nitrite (NEG) Ur Leukocyte Esterase (NEG) Urine RBC (0) /HPF Urine WBC (0-4) /HPF Ur Squamous Epith Cells /LPF Ur Renal Epithelial Cell /LPF Urine Bacteria /LPF Granular Casts /LPF Urine Mucus /LPF Urine Yeast /HPF Coronavirus (PCR) NEGATIVE Cancelled (Negative) Influenza Type A (PCR) NEGATIVE Cancelled (Negative) Influenza Type B (PCR) NEGATIVE Cancelled (Negative) RSV RNA Qual (PCR) POSITIVE A Cancelled (Negative) 02/12/21 02/12/21 02/12/21 Range/Units 01:08 01:10 01:38 WBC (4.8-10.8) X10*3/uL RBC (4.20-5.50) X10*6/uL Hgb (12.0-16.0) g/dl Hct (37-47) % MCV (80-98) fL MCH (27.0-33.0) pg MCHC (31.0-35.0) g/dl RDW (11.0-16.0) % Plt Count (160-400) X10*3/uL MPV (9.4-12.3) fL Immature Gran % (Auto) (0.0-0.4) % Neut % (Auto) (45-73) % Lymph % (Auto) (20-40) % [place] % (Auto) (2-11) % Eos % (Auto) (0-4) % Baso % (Auto) (0-2) % Lymph # (Auto) (1.2-4.9) X10*3/uL [place] # (Auto) (0.1-1.2) X10*3/uL Eos # (Auto) (0.0-0.4) X10*3/uL Baso # (Auto) (0.0-0.2) X10*3/uL Abs Immat Gran (auto) (0.00-0.03) X10*3/uL Absolute Neuts (auto) (2.0-8.3) X10*3/uL Absolute Nucleated RBC (0.0-0.012) X10*3/uL Nucleated RBC % (auto) (0.0-0.2) /100WBC O2 Saturation % ABG pH at Pt Temp (7.35-7.45) ABG pH (Temp Correct) (7.35-7.45) ABG pCO2 at Pt Temp (32-45) mmHg ABG pCO2 (Temp Corrct (32-45) mmHg ABG pO2 at Pt Temp (83-108) mmHg ABG pO2 (Temp Correct (83-108) ABG HCO3 (22-26) mmol/L ABG Base Excess (Actual) mmol/L Sodium 136 (135-145) mmol/L Potassium 5.4 H (3.3-5.1) mmol/L Chloride 98 (96-108) mmol/L Carbon Dioxide 22 (22-29) mmol/L Anion Gap 21 H (12-20) BUN 89 H* D (9-16) mg/dL Creatinine 8.68 H* (0.5-1.4) mg/dL Estim Creat Clear Calc 8.0 Estimated GFR 5 Random Glucose 301 H D (60-115) mg/dL Lactic Acid 1.8 (0.5-2.0) mmol/L Calcium 8.2 L D (8.4-10.2) mg/dL Troponin I High Sens 369.8 H* (<3.5-17.0) ng/L B-Natriuretic Peptide 1298 H (<100) pg/mL Urine Color Urine Appearance Urine pH (5.0-8.0) Ur Specific [place] (1.005-1.025) Urine Protein (NEG-TRACE) MG/DL Urine Glucose (UA) (NEG) MG/DL Urine Ketones (NEG) MG/DL Urine Blood (NEG) Urine Nitrite (NEG) Ur Leukocyte Esterase (NEG) Urine RBC (0) /HPF Urine WBC (0-4) /HPF Ur Squamous Epith Cells /LPF Ur Renal Epithelial Cell /LPF Urine Bacteria /LPF Granular Casts /LPF Urine Mucus /LPF Urine Yeast /HPF Coronavirus (PCR) (Negative) Influenza Type A (PCR) (Negative) Influenza Type B (PCR) (Negative) RSV RNA Qual (PCR) (Negative) 02/12/21 02/12/21 02/12/21 Range/Units 02:39 02:55 03:45 WBC (4.8-10.8) X10*3/uL RBC (4.20-5.50) X10*6/uL Hgb (12.0-16.0) g/dl Hct (37-47) % MCV (80-98) fL MCH (27.0-33.0) pg MCHC (31.0-35.0) g/dl RDW (11.0-16.0) % Plt Count (160-400) X10*3/uL MPV (9.4-12.3) fL Immature Gran % (Auto) (0.0-0.4) % Neut % (Auto) (45-73) % Lymph % (Auto) (20-40) % [place] % (Auto) (2-11) % Eos % (Auto) (0-4) % Baso % (Auto) (0-2) % Lymph # (Auto) (1.2-4.9) X10*3/uL [place] # (Auto) (0.1-1.2) X10*3/uL Eos # (Auto) (0.0-0.4) X10*3/uL Baso # (Auto) (0.0-0.2) X10*3/uL Abs Immat Gran (auto) (0.00-0.03) X10*3/uL Absolute Neuts (auto) (2.0-8.3) X10*3/uL Absolute Nucleated RBC (0.0-0.012) X10*3/uL Nucleated RBC % (auto) (0.0-0.2) /100WBC O2 Saturation 92.0 % ABG pH at Pt Temp 7.41 (7.35-7.45) ABG pH (Temp Correct) 7.40 (7.35-7.45) ABG pCO2 at Pt Temp 37 (32-45) mmHg ABG pCO2 (Temp Corrct 39 (32-45) mmHg ABG pO2 at Pt Temp 75 L (83-108) mmHg ABG pO2 (Temp Correct 80 L (83-108) ABG HCO3 24 (22-26) mmol/L ABG Base Excess (Actual) 0.3 mmol/L Sodium (135-145) mmol/L Potassium (3.3-5.1) mmol/L Chloride (96-108) mmol/L Carbon Dioxide (22-29) mmol/L Anion Gap (12-20) BUN (9-16) mg/dL Creatinine (0.5-1.4) mg/dL Estim Creat Clear Calc Estimated GFR Random Glucose (60-115) mg/dL Lactic Acid (0.5-2.0) mmol/L Calcium (8.4-10.2) mg/dL Troponin I High Sens 372.7 H* (<3.5-17.0) ng/L B-Natriuretic Peptide (<100) pg/mL Urine Color YELLOW Urine Appearance HAZY Urine pH 5.5 (5.0-8.0) Ur Specific [place] >= 1.030 H (1.005-1.025) Urine Protein 2+ H (NEG-TRACE) MG/DL Urine Glucose (UA) NEG (NEG) MG/DL Urine Ketones NEG (NEG) MG/DL Urine Blood NEG (NEG) Urine Nitrite NEG (NEG) Ur Leukocyte Esterase 1+ H (NEG) Urine RBC 1-4 (0) /HPF Urine WBC 15-29 H (0-4) /HPF Ur Squamous Epith Cells 1+ /LPF Ur Renal Epithelial Cell 1+ /LPF Urine Bacteria 1+ /LPF Granular Casts 1-4 /LPF Urine Mucus 1+ /LPF Urine Yeast 4+ /HPF Coronavirus (PCR) (Negative) Influenza Type A (PCR) (Negative) Influenza Type B (PCR) (Negative) RSV RNA Qual (PCR) (Negative) <Trent Gamez MD - Last Filed: 02/12/21 05:44> ECG Data Attestation: I personally reviewed and interpreted this ECG as follows: <Juan Miguel Dorantes MD - Last Filed: 02/12/21 01:48> Interpretation: normal sinus rate 88, no st or twave changes, no evidence of hyperkalemia <Juan Miguel Dorantes MD - Last Filed: 02/12/21 01:48> Discharge Plan Discharge Clinical Impression: ESRD needing dialysis CHF (congestive heart failure) Qualifiers: Heart failure type: systolic Heart failure chronicity: acute on chronic Qualified Code(s): I50.23 - Acute on chronic systolic (congestive) heart failure <Juan Miguel Dorantes MD - Last Filed: 02/12/21 01:48> Patient Disposition: Admitted As Inpatient <Juan Miguel Dorantes MD - Last Filed: 02/12/21 01:48>
--- NOTE | 2021-02-12 00:33 | ECG_ITS ---
Test Reason : COUGH,WEAKNESS Blood Pressure : / mmHG Vent. Rate : 089 BPM Atrial Rate : 267 BPM P-R Int : 000 ms QRS Dur : 080 ms QT Int : 360 ms P-R-T Axes : 028 090 028 degrees QTc Int : 438 ms Normal sinus rhythm with 1st degree A-V block Rightward axis Anterior infarct (cited on or before 31-JUL-2020) Abnormal ECG When compared with ECG of 31-JUL-2020 04:29, QRS axis Shifted right Referred By: Juan Miguel Dorantes Electronically Signed By:SAMY SANTIAGO
[2021-02-12 01:20] LABS: Basophils Percent Auto 0.6 % (0-2); Eosinophils Absolute Auto 0.1 X10*3/uL (0.0-0.4); Eosinophils Percent Auto 1.7 % (0-4); Hematocrit 24.6 % (37-47); Imm Gran Abs Auto 0.05 X10*3/uL (0.00-0.03); Imm Gran Pct Auto 0.7 % (0.0-0.4); Lymphocytes Absolute Auto 1.2 X10*3/uL (1.2-4.9); Lymphocytes Percent Auto 16.8 % (20-40); MANUAL DIFF FLAG NO; Mean Corpuscular HGB Conc 32.5 g/dl (31.0-35.0); Mean Corpuscular Volume 92.1 fL (80-98); Mean Platelet Volume 12.2 fL (9.4-12.3); Monocytes Absolute Auto 0.5 X10*3/uL (0.1-1.2); Monocytes Percent Auto 6.3 % (2-11); Neutrophils Absolute Auto 5.3 X10*3/uL (2.0-8.3); Neutrophils Percent Auto 73.9 % (45-73); Platelet Count 187 X10*3/uL (160-400); Red Blood Count 2.67 X10*6/uL (4.20-5.50); Red Cell Distribution Width 14.6 % (11.0-16.0); White Blood Count 7.1 X10*3/uL (4.8-10.8)
[2021-02-12] MEDS: Insulin Glargine,Hum.rec.anlog 100 UNIT/ML 10 ML VIAL SUBCUT (01:29)
--- NOTE | 2021-02-12 01:31 | PC.NURSE ---
phleb contacted for redraw of pt's labs
[2021-02-12 01:33] LABS: Lactic Acid 1.8 mmol/L (0.5-2.0)
[2021-02-12 01:54] LABS: B Type Natriuretic Peptide 1298 pg/mL (<100); Troponin-I High Sensitivity 369.8 ng/L (<3.5-17.0)
[2021-02-12 01:59] LABS: Influenza A PCR NEGATIVE (Negative); Influenza B PCR NEGATIVE (Negative); Resp Syncy Virus RNA Qual PCR POSITIVE (Negative); SARS COV2 PCR INHOUSE NEGATIVE (Negative)
[2021-02-12] MEDS: cefTRIAXone sodium 1 GM in 0.9 % Sodium Chloride 50 ML IV (02:22)
[2021-02-12] MEDS: Furosemide 100 MG/10 ML VIAL 60 MG IVPUSH (02:23)
[2021-02-12 02:29] LABS: Anion Gap 21 (12-20); Blood Urea Nitrogen 89 mg/dL (9-16); Calcium 8.2 mg/dL (8.4-10.2); Carbon Dioxide 22 mmol/L (22-29); Chloride 98 mmol/L (96-108); Estimated Glomerular Filt Rate 5; Glucose Random 301 mg/dL (60-115); Potassium 5.4 mmol/L (3.3-5.1); Sodium 136 mmol/L (135-145)
[2021-02-12 02:47] LABS: ABG Base Excess 0.3 mmol/L; ABG HCO3 24 mmol/L (22-26); ABG pCO2 37 mmHg (32-45); ABG pCO2 TC 39 mmHg (32-45); ABG pH 7.41 (7.35-7.45); ABG pO2 75 mmHg (83-108); ABG pO2 TC 80 (83-108)
[2021-02-12 02:47] LABS: ABG Refer to POC result
--- NOTE | 2021-02-12 02:55 | PC.NURSE ---
RT at bedside, titrated pt to 2L NC down from 4L, pt's sat 94% at this time
[2021-02-12 03:27] LABS: Appearance Urine HAZY; Color Urine YELLOW; Glucose Urine UA NEG (NEG); Leukocyte Esterase Urine 1+ (NEG); Nitrite Urine NEG (NEG); PH 5.5 (5.0-8.0); Specific Gravity - Urine >= 1.030 (1.005-1.025); UACC Culture Trigger YES; Urine Blood NEG (NEG); Urine Ketones NEG (NEG); Urine Protein 2+ MG/DL (NEG-TRACE)
[2021-02-12 03:49] LABS: Bacteria Urine 1+ /LPF; Mucus Urine 1+ /LPF; Renal Epithelial Cells Urine 1+ /LPF; Squamous Epithelial Cell Urine 1+ /LPF
[2021-02-12 04:17] LABS: Troponin-I High Sensitivity 372.7 ng/L (<3.5-17.0)
--- NOTE | 2021-02-12 05:29 | P.HPHOSP_ITS ---
History of Present Illness Date of Service: 02/12/21 Chief Complaint: Shortness of breath This is a 55-year-old Afghan-speaking only female with past medical history of ESRD on dialysis, DM, HTN, hypothyroidism, HLD, CAD who presents to the hospital with complaints of shortness of breath and difficulty breathing. Patient reports that her symptoms started 3 days ago, she has a cough, productive, some subjective fevers, some chills, nausea with no vomiting, no abdominal pain, no diarrhea or constipation, no urinary symptoms. No lower extremity edema. Patient reports that because she was feeling so sick she did not go to her dialysis on Thursday. She usually goes to dialysis Thursday and Thursday. Her last dialysis session was Thursday. She denies having any chest pain, no palpitations. No dizziness, no headache, no weakness numbness or tingling. All other review of system negative except as mentioned On arrival to the ED patient found to have a temp of a 100.5?, respiratory rate of 23, heart rate of 91, blood pressure 120/57, setting 88% on room air Labs are significant for WBC count of 7.1, hemoglobin of 8 that dropped from 10.7 in February, pH of 7.41, BUN of 89, creatinine of 8.68, troponin of 369 with repeat of of 372 no delta, BNP of 12 98, UA positive for leukocyte Estrace and WBC, RSV positive, COVID-19 negative. Chest x-ray shows pulmonary congestion Patient will be admitted for further management Review of Systems Review of Systems: Yes all other systems are reviewed and are negative [facility] Medical History AV fistula CAD (coronary artery disease) Dialysis patient ESRD (end stage renal disease) GERD (gastroesophageal reflux disease) HLD (hyperlipidemia) HTN (hypertension) Obesity due to excess calories Renal failure (ARF), acute on chronic T2DM (type 2 diabetes mellitus) Thyroid disease Family History Father CVD (cardiovascular disease) Diabetes Mother Diabetes Sister Stomach cancer Pertinent family history: see above Surgical History History of kidney surgery Hx of bone graft Hx of cholecystectomy Social History Household Members: Spouse Alcohol intake: never Patient Tobacco Use Status: Never used Tobacco Advance Directives: No Advance Directives Information Provided: No Current occupational status: disabled Meds Allergies Allergy/AdvReac Type Severity Reaction Status Date / Time No Known Allergies Allergy Verified 02/12/21 01:37 [No Known Allergies*] Home Medications Medication Instructions Recorded Confirmed Last Taken Type amlodipine 10 mg tablet 1 tab PO QAM 02/12/21 02/12/21 Unknown History aspirin 81 mg tablet,delayed 1 tab PO DAILY 02/12/21 02/12/21 Unknown History release atorvastatin 40 mg tablet 1 tab PO DAILY 02/12/21 02/12/21 Unknown History ergocalciferol (vitamin D2) 1,250 1 cap PO QWEEK 02/12/21 02/12/21 Unknown History mcg (50,000 unit) capsule gabapentin 100 mg capsule 200 mg PO BID 02/12/21 02/12/21 Unknown History hydralazine 50 mg tablet 1 tab PO TID 02/12/21 02/12/21 Unknown History insulin lispro 100 unit/mL 20 unit SUBCUT TID 02/12/21 02/12/21 Unknown History subcutaneous pen (Humalog KwikPen (U-100) Insulin) levothyroxine 25 mcg tablet 1 tab PO QAM 02/12/21 02/12/21 Unknown History lisinopril 10 mg tablet 1 tab PO BEDTIME 02/12/21 02/12/21 Unknown History melatonin 5 mg tablet 1 tab PO BEDTIME 02/12/21 02/12/21 Unknown History omeprazole 40 mg capsule,delayed 1 cap PO DAILY 02/12/21 02/12/21 Unknown History release sevelamer carbonate 800 mg tablet 1 tab PO QID 02/12/21 02/12/21 Unknown History sitagliptin 25 mg tablet (Januvia) 1 tab PO QAM 02/12/21 02/12/21 Unknown History Physical Exam Vital Signs and Narrative: Vital Signs: Last Vital Signs Temp 99.7 F 02/12/21 02:51 Pulse 82 02/12/21 04:50 Resp 16 02/12/21 04:50 BP 161/71 H 02/12/21 04:50 Pulse Ox 94 02/12/21 04:50 Oxygen Flow Rate 4 02/12/21 00:36 Body Mass Index 36.6 Const: Other: Appears ill, coughing throughout the interview General: cooperative and no acute distress Orientation/consciousness: patient oriented x3 Eyes: General: appearance normal, both eyes and all related structures Pupils: Equal, round and reactive pupils present Resp: Effort & Inspection: normal respiratory effort and able to speak in complete sentences Auscultation: clear to auscultation bilaterally Cardio: Rate: regular rate Rhythm: regular rhythm GI: Palpation (GI): Soft to palpation Auscultation: normal bowel sounds Skin: General skin exam: no rashes or lesions noted Neuro: General: patient oriented x3 Cranial nerves: Yes Equal, round and reactive pupils present Cognition (Neuro): normal cognition Extrem: General: Yes normal to inspection and Yes no pedal edema Results Labs CBC and Chem 7: 02/12/21 01:08 02/12/21 01:38 Labs: Laboratory Results - last 24 hr 02/12/21 02/12/21 02/12/21 00:56 00:57 01:08 MCV 92.1 MCH 30.0 MCHC 32.5 RDW 14.6 Plt Count 187 MPV 12.2 Immature Gran % (Auto) 0.7 H Neut % (Auto) 73.9 H Lymph % (Auto) 16.8 L [place] % (Auto) 6.3 Eos % (Auto) 1.7 Baso % (Auto) 0.6 Lymph # (Auto) 1.2 [place] # (Auto) 0.5 Eos # (Auto) 0.1 Baso # (Auto) 0.0 Abs Immat Gran (auto) 0.05 H Absolute Neuts (auto) 5.3 Absolute Nucleated RBC 0.000 Nucleated RBC % (auto) 0.0 O2 Saturation ABG pH at Pt Temp ABG pH (Temp Correct) ABG pCO2 at Pt Temp ABG pCO2 (Temp Corrct ABG pO2 at Pt Temp ABG pO2 (Temp Correct ABG HCO3 ABG Base Excess (Actual) Anion Gap Estim Creat Clear Calc Estimated GFR Random Glucose Lactic Acid Calcium Troponin I High Sens B-Natriuretic Peptide Urine Color Urine Appearance Urine pH Ur Specific [place] Urine Protein Urine Glucose (UA) Urine Ketones Urine Blood Urine Nitrite Ur Leukocyte Esterase Urine RBC Urine WBC Ur Squamous Epith Cells Ur Renal Epithelial Cell Urine Bacteria Granular Casts Urine Mucus Urine Yeast Coronavirus (PCR) NEGATIVE Cancelled Influenza Type A (PCR) NEGATIVE Cancelled Influenza Type B (PCR) NEGATIVE Cancelled RSV RNA Qual (PCR) POSITIVE A Cancelled 02/12/21 02/12/21 02/12/21 01:08 01:10 01:38 MCV MCH MCHC RDW Plt Count MPV Immature Gran % (Auto) Neut % (Auto) Lymph % (Auto) [place] % (Auto) Eos % (Auto) Baso % (Auto) Lymph # (Auto) [place] # (Auto) Eos # (Auto) Baso # (Auto) Abs Immat Gran (auto) Absolute Neuts (auto) Absolute Nucleated RBC Nucleated RBC % (auto) O2 Saturation ABG pH at Pt Temp ABG pH (Temp Correct) ABG pCO2 at Pt Temp ABG pCO2 (Temp Corrct ABG pO2 at Pt Temp ABG pO2 (Temp Correct ABG HCO3 ABG Base Excess (Actual) Anion Gap 21 H Estim Creat Clear Calc 8.0 Estimated GFR 5 Random Glucose 301 H D Lactic Acid 1.8 Calcium 8.2 L D Troponin I High Sens 369.8 H* B-Natriuretic Peptide 1298 H Urine Color Urine Appearance Urine pH Ur Specific [place] Urine Protein Urine Glucose (UA) Urine Ketones Urine Blood Urine Nitrite Ur Leukocyte Esterase Urine RBC Urine WBC Ur Squamous Epith Cells Ur Renal Epithelial Cell Urine Bacteria Granular Casts Urine Mucus Urine Yeast Coronavirus (PCR) Influenza Type A (PCR) Influenza Type B (PCR) RSV RNA Qual (PCR) 02/12/21 02/12/21 02/12/21 02:39 02:55 03:45 MCV MCH MCHC RDW Plt Count MPV Immature Gran % (Auto) Neut % (Auto) Lymph % (Auto) [place] % (Auto) Eos % (Auto) Baso % (Auto) Lymph # (Auto) [place] # (Auto) Eos # (Auto) Baso # (Auto) Abs Immat Gran (auto) Absolute Neuts (auto) Absolute Nucleated RBC Nucleated RBC % (auto) O2 Saturation 92.0 ABG pH at Pt Temp 7.41 ABG pH (Temp Correct) 7.40 ABG pCO2 at Pt Temp 37 ABG pCO2 (Temp Corrct 39 ABG pO2 at Pt Temp 75 L ABG pO2 (Temp Correct 80 L ABG HCO3 24 ABG Base Excess (Actual) 0.3 Anion Gap Estim Creat Clear Calc Estimated GFR Random Glucose Lactic Acid Calcium Troponin I High Sens 372.7 H* B-Natriuretic Peptide Urine Color YELLOW Urine Appearance HAZY Urine pH 5.5 Ur Specific [place] >= 1.030 H Urine Protein 2+ H Urine Glucose (UA) NEG Urine Ketones NEG Urine Blood NEG Urine Nitrite NEG Ur Leukocyte Esterase 1+ H Urine RBC 1-4 Urine WBC 15-29 H Ur Squamous Epith Cells 1+ Ur Renal Epithelial Cell 1+ Urine Bacteria 1+ Granular Casts 1-4 Urine Mucus 1+ Urine Yeast 4+ Coronavirus (PCR) Influenza Type A (PCR) Influenza Type B (PCR) RSV RNA Qual (PCR) ECG Interpretation: A flutter with 3-1 AV conduction Imaging Radiologist's Impressions: Impressions Chest X-Ray 02/12/21 00:44 IMPRESSION: Low lung volumes limits evaluation. Prominent central vasculature and suggestion of perihilar airspace opacities bilaterally which could be secondary to developing pneumonia or edema. Short-term radiographic follow-up with improved inspiratory effort would be helpful. Assessment and Plan (1) Acute respiratory failure with hypoxia: Status: Acute (2) RSV (acute bronchiolitis due to respiratory syncytial virus): Status: Acute (3) Volume overload: Status: Acute (4) Missed dialysis: Status: Acute (5) New onset atrial flutter: Status: Acute (6) ESRD needing dialysis: Status: Acute (7) Elevated troponin: Status: Acute (8) UTI (urinary tract infection): Status: Acute (9) Normocytic anemia: Status: Acute 55-year-old female with past medical history of ESRD on dialysis HTN, diabetes presents to the hospital with complaints of shortness of breath and cough found to have RSV and as well as volume overload due to missed dialysis # acute hypoxic respiratory failure - most likely multifactorial including secondary to volume overload as well as RSV infection - patient high 80s on room air currently on 4 L maintaining an O2 of 92-93% - chest x-ray showing pulmonary congestion - patient missed dialysis due to respiratory RSV infection - at this time will continue O2 supple - supportive measures for the RSV - nephrology consult for dialysis in a.m. to treat the volume overload - I do not believe patient has pneumonia and this is most likely a viral bronchiolitis versus of bacterial in therefore will abstain from using antibiotics to treat her respiratory symptoms # RSV bronchiolitis - patient with cough, RSV positive on nasal swab - supportive measure - O2 as required - cough medication # volume overload - secondary to missed dialysis - patient does not have history of CHF - at this time will consult Nephrology for emergent dialysis session in a.m. - patient received 40 of Lasix in the ED, will continue that - will also obtain echocardiogram cardiology consult # new onset a flutter -as seen on on the EKG - patient has no history of a flutter - at this time patient's rate is controlled - will get echo cardio - consult cardiology - rpt EKG # elevated troponin - most likely secondary ESRD - denies any chest pain - no EKG changes suggestive of ACS - no delta # UTI - patient denies any symptoms - will treat with IV antibiotic - follow cultures # normocytic anemia - no evidence of acute blood loss - dropped from 10 in October 19 today - most likely has a component of chronic disease anemia - will obtain ferritin, B12 and folic acid - occult blood stool will be obtained - monitor CBC # hypothyroidism - continue levothyroxine # diabetes - continue home meds - will add low-dose sliding scale - diabetic diet # hypertension - continue home medication DVT prophylaxis: Heparin subQ Quality Stroke Does the patient have a stroke diagnosis?: No VTE Prior VTE?: No VTE Risk Level:: Medical - moderate - high VTE Device Contraindication: Treatment Not Indicated VTE Drug Contraindication: N/A - Med Ordered
[2021-02-12 06:12] LABS: MANUAL DIFF FLAG NO
[2021-02-12] MEDS: Levothyroxine Sodium 25 MCG TABLET PO (06:16)
[2021-02-12 06:19] LABS: Basophils Percent Auto 0.3 % (0-2); Eosinophils Absolute Auto 0.2 X10*3/uL (0.0-0.4); Eosinophils Percent Auto 2.7 % (0-4); Hematocrit 24.4 % (37-47); Hemoglobin 7.9 g/dl (12.0-16.0); Imm Gran Abs Auto 0.06 X10*3/uL (0.00-0.03); Imm Gran Pct Auto 0.8 % (0.0-0.4); Lymphocytes Absolute Auto 1.5 X10*3/uL (1.2-4.9); Lymphocytes Percent Auto 21.7 % (20-40); Mean Corpuscular HGB Conc 32.4 g/dl (31.0-35.0); Mean Corpuscular Hemoglobin 29.7 pg (27.0-33.0); Mean Corpuscular Volume 91.7 fL (80-98); Mean Platelet Volume 12.5 fL (9.4-12.3); Monocytes Absolute Auto 0.4 X10*3/uL (0.1-1.2); Monocytes Percent Auto 6.2 % (2-11); Neutrophils Absolute Auto 4.8 X10*3/uL (2.0-8.3); Neutrophils Percent Auto 68.3 % (45-73); Platelet Count 174 X10*3/uL (160-400); Red Blood Count 2.66 X10*6/uL (4.20-5.50); Red Cell Distribution Width 14.6 % (11.0-16.0); White Blood Count 7.1 X10*3/uL (4.8-10.8)
[2021-02-12 06:34] LABS: Anion Gap 21 (12-20); Blood Urea Nitrogen 93 mg/dL (9-16); Calcium 8.4 mg/dL (8.4-10.2); Carbon Dioxide 21 mmol/L (22-29); Chloride 100 mmol/L (96-108); Creatinine Clr Calc Pharmacy 7.8; Estimated Glomerular Filt Rate 5; Glucose Random 247 mg/dL (60-115); Potassium 5.3 mmol/L (3.3-5.1); Sodium 137 mmol/L (135-145)
[2021-02-12 07:05] LABS: Folate 9.7 ng/mL (> or = 4.0); Vitamin B12 401 pg/mL (200-900)
[2021-02-12] MEDS: Heparin Sodium,Porcine 5,000 UNIT/ML VIAL 5000 UNIT SUBCUT ×2 (07:07→16:51)
[2021-02-12] MEDS: Sevelamer Carbonate Tablet 800 MG TABLET PO ×2 (07:08→16:52)
--- NOTE | 2021-02-12 08:02 | PC.NURSE ---
sleeping and easily woken, denies pain and sob, report to rn/ 3rd floor, brought up by Dalton
[2021-02-12 08:14] LABS: Ferritin 13307 ng/mL (10-250)
[2021-02-12 08:15] LABS: Glucose, Whole Blood 206 mg/dL (60-115)
[2021-02-12 08:39] LABS: Glucose, Whole Blood 257 mg/dL (60-115)
--- NOTE | 2021-02-12 11:02 | PM.CNCAR ---
History of Present Illness History of Present Illness Date of Service: 02/12/21 Requesting physician: Juanito Blake Consult reason: congestive heart failure Chief complaint: RVS, Volume overload Narrative: I was request to see the patient in cardiology consultation today for volume overload and congestive heart failure with noted elevated BNP on admission. Patient 55-year-old woman with prior history of CAD by cardiac catheterization 2016, no clear myocardial infarction, hypertension, end-stage renal dialysis on hemodialysis Thursday, diabetes mellitus, hyperlipidemia, morbid obesity. Patient present in the hospital with progressive shortness of breath over the last 3 days along with cough and productive phlegm with fever and chills at home. She was supposed to have dialysis last evening but because of her symptoms was advised to have viral workup with COVID testing. However she got very short of breath and came to the emergency room. Her last dialysis session was Thursday. She is noticed to have volume overload and in heart failure and was therefore admitted for congestive heart failure. Her troponin was noted to be elevated in the mid 300 range. She denies any chest discomfort. She still does not feel well. Denies palpitations, recent exertional chest pain. In between her dialysis session she is able to do her work around the house and go grocery shopping. She does not get any diagnosis of sleep apnea. Review of Systems Constitutional: Constitutional: Reports chills, Reports fever(s), Reports lethargy and Reports malaise Eyes: Eyes: Reports no additional eye complaints ENT: Reports system reviewed and no additional complaints, except as documented Cardiovascular: Cardiovascular: Denies chest pain, Denies pedal edema, Denies lightheadedness, Denies Loss of Consciousness and Reports dyspnea Respiratory: Respiratory: Reports cough, Reports excessive phlegm production and Reports dyspnea Gastrointestinal: Gastrointestinal: Reports no additional gastrointestinal complaints Genitourinary: Genitourinary: Reports no additional female genitourinary complaints Musculoskeletal: Musculoskeletal: Reports no additional musculoskeletal complaints Neurologic: Reports system reviewed and no additional complaints, except as documented Psychiatric: Psychiatric: Reports no additional psychiatric complaints Endocrine: Endocrine: Reports no additional endocrine complaints Hematologic/Lymphatic: Hematologic/Lymphatic: Reports no additional hematologic/lymphatic complaints Allergic/Immunologic: Allergic/Immunologic: Reports no additional allergic/immunologic complaints PMFSH Past Medical History Medical History AV fistula CAD (coronary artery disease) Dialysis patient ESRD (end stage renal disease) GERD (gastroesophageal reflux disease) HLD (hyperlipidemia) HTN (hypertension) Obesity due to excess calories Renal failure (ARF), acute on chronic T2DM (type 2 diabetes mellitus) Thyroid disease Family History Family History Father CVD (cardiovascular disease) Diabetes Mother Diabetes Sister Stomach cancer Surgical History Surgical History History of kidney surgery Hx of bone graft Hx of cholecystectomy Social History Social History Household Members: Spouse Alcohol intake: never Patient Tobacco Use Status: Never used Tobacco Current occupational status: [employer] Allergies Allergy/AdvReac Type Severity Reaction Status Date / Time No Known Allergies Allergy Verified 02/12/21 01:37 [No Known Allergies*] Active Medications: Current Medications Acetaminophen (Acetaminophen 325 Mg Tablet) 650 mg PO Q6H PRN PRN Reason: Pain, Mild (Pain Scale 1-3) Amlodipine Besylate (Amlodipine Besylate 10 Mg Tablet) 10 mg PO DAILY YURI; Protocol Last Admin: 02/12/21 09:42 Dose: Not Given Documented by: Aspirin (Aspirin Enteric Coated 81 Mg Tablet.) 81 mg PO DAILY [facility] Last Admin: 02/12/21 09:43 Dose: Not Given Documented by: Atorvastatin Calcium (Atorvastatin Calcium 40 Mg Tablet) 40 mg PO DAILY YURI Last Admin: 02/12/21 09:43 Dose: Not Given Documented by: Dextrose (Dextrose 50 % 25 Gm/50 Ml Vial) 25 gm IVPUSH Q15M PRN; Protocol PRN Reason: per Hypoglycemia Standing Ord. Docusate Sodium (Docusate Sodium 100 Mg Capsule) 100 mg PO DAILY PRN PRN Reason: Constipation Ergocalciferol (Ergocalciferol (Vitamin D2) 1,250 Mcg Capsule) 1,250 mcg PO Q7D Y[facility] Furosemide (Furosemide 40 Mg/4 Ml Vial) 40 mg IVPUSH DAILY YURI; Protocol Last Admin: 02/12/21 09:44 Dose: Not Given Documented by: Gabapentin (Gabapentin 100 Mg Capsule) 200 mg PO BID YURI Last Admin: 02/12/21 09:44 Dose: Not Given Documented by: Glucose (Glucose Gel 15 Gm Gel..Gram.) 15 gm PO Q15M PRN; Protocol PRN Reason: per Hypoglycemia Standing Ord. Heparin Sodium (Porcine) (Heparin Sodium,Porcine 5,000 Unit/Ml Vial) 5,000 unit SUBCUT Q12H [facility] Last Admin: 02/12/21 07:07 Dose: 5,000 unit Documented by: Heparin Sodium (Porcine) (Heparin Sodium,Porcine 1,000 Unit/Ml Vial) 1,000 unit IV Q1H [facility] Stop: 02/12/21 11:16 Last Admin: 02/12/21 09:45 Dose: Not Given Documented by: Hydralazine HCl (Hydralazine Hcl 50 Mg Tablet) 50 mg PO TID [facility]; Protocol Last Admin: 02/12/21 09:44 Dose: Not Given Documented by: Ceftriaxone Sodium 1 gm/ (Sodium Chloride) 50 mls @ 100 mls/hr IV Q24H [facility] Insulin Human Lispro (Insulin Lispro 100 Unit/Ml 3 Ml Vial) 0 unit SUBCUT QIDACHS [facility]; Protocol Last Admin: 02/12/21 09:40 Dose: Not Given Documented by: Insulin Human Lispro (Insulin Lispro 100 Unit/Ml 3 Ml Vial) 20 unit SUBCUT TIDAC [facility] Last Admin: 02/12/21 09:40 Dose: Not Given Documented by: Levothyroxine Sodium (Levothyroxine Sodium 25 Mcg Tablet) 25 mcg PO DAILY@0600 [facility] Last Admin: 02/12/21 06:16 Dose: 25 mcg Documented by: Lisinopril (Lisinopril 10 Mg Tablet) 10 mg PO BEDTIME [facility]; Protocol Melatonin (Melatonin 3 Mg Tablet) 6 mg PO BEDTIME [facility] Omeprazole (Omeprazole 40 Mg Capsule.Dr) 40 mg PO DAILY@0630 [facility] Last Admin: 02/12/21 09:45 Dose: Not Given Documented by: Ondansetron HCl (Ondansetron Hcl 4 Mg/2 Ml Vial) 4 mg IVPUSH Q8H PRN PRN Reason: Nausea and Vomiting Sevelamer Carbonate (Sevelamer Carbonate Tablet 800 Mg Tablet) 800 mg PO TIDAC [facility] Last Admin: 02/12/21 07:08 Dose: 800 mg Documented by: Sodium Chloride (0.9 % Sodium Chloride Flush 3 Ml Syringe) 3 ml IVFLUSH QSHIFT [facility] Last Admin: 02/12/21 09:41 Dose: Not Given Documented by: Home Medications Medication Instructions Recorded Confirmed Last Taken Type amlodipine 10 mg tablet 1 tab PO QAM 02/12/21 02/12/21 Unknown History aspirin 81 mg tablet,delayed 1 tab PO DAILY@1200 02/12/21 02/12/21 Unknown History release atorvastatin 40 mg tablet 1 tab PO DAILY@1200 02/12/21 02/12/21 Unknown History ergocalciferol (vitamin D2) 1,250 1 cap PO MAR 02/12/21 02/12/21 Unknown History mcg (50,000 unit) capsule gabapentin 100 mg capsule 200 mg PO BID 02/12/21 02/12/21 Unknown History hydralazine 50 mg tablet 1 tab PO TID@0900,1200,1800 02/12/21 02/12/21 Unknown History insulin glargine U-300 conc 300 32 unit SUBCUT DAILY 02/12/21 02/12/21 Unknown History unit/mL (3 mL) subcutaneous pen (Toujeo Max U-300 SoloStar) insulin lispro 100 unit/mL 20 unit SUBCUT TIDAC 02/12/21 02/12/21 Unknown History subcutaneous pen (Humalog KwikPen (U-100) Insulin) levothyroxine 25 mcg tablet 1 tab PO QAM 02/12/21 02/12/21 Unknown History lisinopril 10 mg tablet 1 tab PO BEDTIME 02/12/21 02/12/21 Unknown History melatonin 5 mg tablet 1 tab PO BEDTIME 02/12/21 02/12/21 Unknown History omeprazole 40 mg capsule,delayed 1 cap PO DAILY 02/12/21 02/12/21 Unknown History release sevelamer carbonate 800 mg tablet 1 tab PO TIDAC 02/12/21 02/12/21 Unknown History sitagliptin 25 mg tablet (Januvia) 1 tab PO QAM 02/12/21 02/12/21 Unknown History Physical Exam Vital Signs: Vital Signs: Last Vital Signs Temp 97.2 F 02/12/21 08:00 Pulse 82 02/12/21 08:00 Resp 16 02/12/21 08:00 BP 145/89 H 02/12/21 08:00 Pulse Ox 90 L 02/12/21 08:00 Oxygen Flow Rate 4 02/12/21 00:36 Body Mass Index 36.6 Const: General: cooperative, comfortable, alert, awake, lethargic and tired appearing Nutritional Appearance: obese Orientation/consciousness: patient oriented x3 and lethargic HENMT: Head: Yes normocephalic and Yes atraumatic Neck: Neck: Yes trachea midline, Yes supple and Yes other (Difficult to evaluate JVD) Resp: Effort & Inspection: decreased respiratory effort Auscultation: no rales, wheezes and diminished lung sounds Cardio: Rate: regular rate Rhythm: regular rhythm Heart sounds: S1 normal heart sound present, S2 normal heart sound present, no click, no gallops and no murmurs GI: Inspection: Yes obesity Auscultation: normal bowel sounds Skin: General skin exam: no rashes or lesions noted Neuro: General: patient oriented x3 and no focal motor deficits Extrem: General: Yes no clubbing, cyanosis or edema Results Labs and Meds Result diagrams: 02/12/21 06:00 02/12/21 06:00 Lab results: Laboratory Results - last 24 hr 02/12/21 02/12/21 02/12/21 00:56 00:57 01:08 WBC 7.1 RBC 2.67 L D Hgb 8.0 L D Hct 24.6 L MCV 92.1 MCH 30.0 MCHC 32.5 RDW 14.6 Plt Count 187 MPV 12.2 Immature Gran % (Auto) 0.7 H Neut % (Auto) 73.9 H Lymph % (Auto) 16.8 L [place] % (Auto) 6.3 Eos % (Auto) 1.7 Baso % (Auto) 0.6 Lymph # (Auto) 1.2 [place] # (Auto) 0.5 Eos # (Auto) 0.1 Baso # (Auto) 0.0 Abs Immat Gran (auto) 0.05 H Absolute Neuts (auto) 5.3 Absolute Nucleated RBC 0.000 Nucleated RBC % (auto) 0.0 O2 Saturation ABG pH at Pt Temp ABG pH (Temp Correct) ABG pCO2 at Pt Temp ABG pCO2 (Temp Corrct ABG pO2 at Pt Temp ABG pO2 (Temp Correct ABG HCO3 ABG Base Excess (Actual) Sodium Potassium Chloride Carbon Dioxide Anion Gap BUN Creatinine Estim Creat Clear Calc Estimated GFR POC Glucose Random Glucose Lactic Acid Calcium Ferritin Troponin I High Sens B-Natriuretic Peptide Vitamin B12 Folate Urine Color Urine Appearance Urine pH Ur Specific [place] Urine Protein Urine Glucose (UA) Urine Ketones Urine Blood Urine Nitrite Ur Leukocyte Esterase Urine RBC Urine WBC Ur Squamous Epith Cells Ur Renal Epithelial Cell Urine Bacteria Granular Casts Urine Mucus Urine Yeast Coronavirus (PCR) NEGATIVE Cancelled Influenza Type A (PCR) NEGATIVE Cancelled Influenza Type B (PCR) NEGATIVE Cancelled RSV RNA Qual (PCR) POSITIVE A Cancelled 02/12/21 02/12/21 02/12/21 01:08 01:08 01:10 WBC RBC Hgb Hct MCV MCH MCHC RDW Plt Count MPV Immature Gran % (Auto) Neut % (Auto) Lymph % (Auto) [place] % (Auto) Eos % (Auto) Baso % (Auto) Lymph # (Auto) [place] # (Auto) Eos # (Auto) Baso # (Auto) Abs Immat Gran (auto) Absolute Neuts (auto) Absolute Nucleated RBC Nucleated RBC % (auto) O2 Saturation ABG pH at Pt Temp ABG pH (Temp Correct) ABG pCO2 at Pt Temp ABG pCO2 (Temp Corrct ABG pO2 at Pt Temp ABG pO2 (Temp Correct ABG HCO3 ABG Base Excess (Actual) Sodium Potassium Chloride Carbon Dioxide Anion Gap BUN Creatinine Estim Creat Clear Calc Estimated GFR POC Glucose Random Glucose Lactic Acid 1.8 Calcium Ferritin Troponin I High Sens 369.8 H* B-Natriuretic Peptide 1298 H Vitamin B12 401 Folate 9.7 Urine Color Urine Appearance Urine pH Ur Specific [place] Urine Protein Urine Glucose (UA) Urine Ketones Urine Blood Urine Nitrite Ur Leukocyte Esterase Urine RBC Urine WBC Ur Squamous Epith Cells Ur Renal Epithelial Cell Urine Bacteria Granular Casts Urine Mucus Urine Yeast Coronavirus (PCR) Influenza Type A (PCR) Influenza Type B (PCR) RSV RNA Qual (PCR) 02/12/21 02/12/21 02/12/21 01:23 01:38 02:39 WBC RBC Hgb Hct MCV MCH MCHC RDW Plt Count MPV Immature Gran % (Auto) Neut % (Auto) Lymph % (Auto) [place] % (Auto) Eos % (Auto) Baso % (Auto) Lymph # (Auto) [place] # (Auto) Eos # (Auto) Baso # (Auto) Abs Immat Gran (auto) Absolute Neuts (auto) Absolute Nucleated RBC Nucleated RBC % (auto) O2 Saturation 92.0 ABG pH at Pt Temp 7.41 ABG pH (Temp Correct) 7.40 ABG pCO2 at Pt Temp 37 ABG pCO2 (Temp Corrct 39 ABG pO2 at Pt Temp 75 L ABG pO2 (Temp Correct 80 L ABG HCO3 24 ABG Base Excess (Actual) 0.3 Sodium 136 Potassium 5.4 H Chloride 98 Carbon Dioxide 22 Anion Gap 21 H BUN 89 H* D Creatinine 8.68 H* Estim Creat Clear Calc 8.0 Estimated GFR 5 POC Glucose 257 H Random Glucose 301 H D Lactic Acid Calcium 8.2 L D Ferritin 02872 H Troponin I High Sens B-Natriuretic Peptide Vitamin B12 Folate Urine Color Urine Appearance Urine pH Ur Specific [place] Urine Protein Urine Glucose (UA) Urine Ketones Urine Blood Urine Nitrite Ur Leukocyte Esterase Urine RBC Urine WBC Ur Squamous Epith Cells Ur Renal Epithelial Cell Urine Bacteria Granular Casts Urine Mucus Urine Yeast Coronavirus (PCR) Influenza Type A (PCR) Influenza Type B (PCR) RSV RNA Qual (PCR) 02/12/21 02/12/21 02/12/21 02:55 03:45 05:59 WBC RBC Hgb Hct MCV MCH MCHC RDW Plt Count MPV Immature Gran % (Auto) Neut % (Auto) Lymph % (Auto) [place] % (Auto) Eos % (Auto) Baso % (Auto) Lymph # (Auto) [place] # (Auto) Eos # (Auto) Baso # (Auto) Abs Immat Gran (auto) Absolute Neuts (auto) Absolute Nucleated RBC Nucleated RBC % (auto) O2 Saturation ABG pH at Pt Temp ABG pH (Temp Correct) ABG pCO2 at Pt Temp ABG pCO2 (Temp Corrct ABG pO2 at Pt Temp ABG pO2 (Temp Correct ABG HCO3 ABG Base Excess (Actual) Sodium Potassium Chloride Carbon Dioxide Anion Gap BUN Creatinine Estim Creat Clear Calc Estimated GFR POC Glucose Random Glucose Lactic Acid Calcium Ferritin Cancelled Troponin I High Sens 372.7 H* B-Natriuretic Peptide Vitamin B12 Folate Urine Color YELLOW Urine Appearance HAZY Urine pH 5.5 Ur Specific [place] >= 1.030 H Urine Protein 2+ H Urine Glucose (UA) NEG Urine Ketones NEG Urine Blood NEG Urine Nitrite NEG Ur Leukocyte Esterase 1+ H Urine RBC 1-4 Urine WBC 15-29 H Ur Squamous Epith Cells 1+ Ur Renal Epithelial Cell 1+ Urine Bacteria 1+ Granular Casts 1-4 Urine Mucus 1+ Urine Yeast 4+ Coronavirus (PCR) Influenza Type A (PCR) Influenza Type B (PCR) RSV RNA Qual (PCR) 02/12/21 02/12/21 02/12/21 06:00 06:00 08:04 WBC 7.1 RBC 2.66 L Hgb 7.9 L Hct 24.4 L MCV 91.7 MCH 29.7 MCHC 32.4 RDW 14.6 Plt Count 174 MPV 12.5 H Immature Gran % (Auto) 0.8 H Neut % (Auto) 68.3 Lymph % (Auto) 21.7 [place] % (Auto) 6.2 Eos % (Auto) 2.7 Baso % (Auto) 0.3 Lymph # (Auto) 1.5 [place] # (Auto) 0.4 Eos # (Auto) 0.2 Baso # (Auto) 0.0 Abs Immat Gran (auto) 0.06 H Absolute Neuts (auto) 4.8 Absolute Nucleated RBC 0.000 Nucleated RBC % (auto) 0.0 O2 Saturation ABG pH at Pt Temp ABG pH (Temp Correct) ABG pCO2 at Pt Temp ABG pCO2 (Temp Corrct ABG pO2 at Pt Temp ABG pO2 (Temp Correct ABG HCO3 ABG Base Excess (Actual) Sodium 137 Potassium 5.3 H Chloride 100 Carbon Dioxide 21 L Anion Gap 21 H BUN 93 H* Creatinine 8.95 H* Estim Creat Clear Calc 7.8 Estimated GFR 5 POC Glucose 206 H Random Glucose 247 H Lactic Acid Calcium 8.4 Ferritin Troponin I High Sens B-Natriuretic Peptide Vitamin B12 Folate Urine Color Urine Appearance Urine pH Ur Specific [place] Urine Protein Urine Glucose (UA) Urine Ketones Urine Blood Urine Nitrite Ur Leukocyte Esterase Urine RBC Urine WBC Ur Squamous Epith Cells Ur Renal Epithelial Cell Urine Bacteria Granular Casts Urine Mucus Urine Yeast Coronavirus (PCR) Influenza Type A (PCR) Influenza Type B (PCR) RSV RNA Qual (PCR) EKG shows no atrial flutter, both EKG shows sinus rhythm with no acute ST T wave changes Imaging Radiologist's impression: Impressions Chest X-Ray 02/12/21 00:44 IMPRESSION: Low lung volumes limits evaluation. Prominent central vasculature and suggestion of perihilar airspace opacities bilaterally which could be secondary to developing pneumonia or edema. Short-term radiographic follow-up with improved inspiratory effort would be helpful. Assessment and Plan (1) Acute CHF: Status: Acute Acute congestive heart failure in this middle-aged woman with multiple comorbidities including morbid obesity, diabetes, and she renal disease, significant anemia, missing her dialysis session due to viral illness and viral bronchiolitis with RSV. Appears to be fluid overloaded, currently undergoing dialysis. Continue to dialyze. Her blood pressure is borderline optimized. Increase hydralazine to 100 mg b.i.d.. Target goal blood pressure less than 130/84. Her troponin leak is related to heart failure and volume overload and viral illness with underlying known coronary artery disease rather than acute coronary syndrome. No need for anticoagulation. Anemia needs to be worked up and treated, maintain hematocrit above 30. Overall prognosis is guarded. She does have underlying diastolic dysfunction by recent echocardiogram. Also has prior coronary artery disease and require ischemic workup as outpatient. Will also need sleep study. Continue supportive care for her pulmonary condition and consider pulmonary consultation. Will follow with the patient. Procedures Date of Service Date of Service: 02/12/21
[2021-02-12 13:58] LABS: Glucose, Whole Blood 155 mg/dL (60-115)
--- NOTE | 2021-02-12 15:30 | MHC.IC ---
Patient is positive for RSV. Staff caring for patient must dispose of the paper mask that they wear while caring for this patient and put on a new one for source control after caring for the patient. Contact precautions should be followed as well.
--- NOTE | 2021-02-12 15:37 | PC.NURSE ---
Patient with RSV,infection control dept notified ,patient placed on contact and droplet precautions,SUBSTANCE ABUSE RN notified
--- NOTE | 2021-02-12 15:55 | PC.NURSE ---
P oxygen sat 88% on RA I-patient repositioned,oxygen applied,DR. Holt notified E will monitor
[2021-02-12] MEDS: hydrALAZINE HCl 50 MG TABLET PO ×2 (16:05→21:42)
[2021-02-12] MEDS: 0.9 % Sodium Chloride Flush 3 ML SYRINGE IVFLUSH (16:05)
[2021-02-12 16:39] LABS: Glucose, Whole Blood 194 mg/dL (60-115)
[2021-02-12] MEDS: Insulin Lispro 100 UNIT/ML 3 ML VIAL SUBCUT ×2 (16:52→21:41)
[2021-02-12] MEDS: predniSONE 20 MG TABLET 60 MG PO (16:55)
--- NOTE | 2021-02-12 19:38 | P.CONNP_ITS ---
History of Present Illness Reason for Consult Consult date: 02/12/21 Chief Complaint Chief complaint: RVS, Volume overload PMFSH Past Medical History Medical History AV fistula CAD (coronary artery disease) Dialysis patient ESRD (end stage renal disease) GERD (gastroesophageal reflux disease) HLD (hyperlipidemia) HTN (hypertension) Obesity due to excess calories Renal failure (ARF), acute on chronic T2DM (type 2 diabetes mellitus) Thyroid disease Family History Family History Father CVD (cardiovascular disease) Diabetes Mother Diabetes Sister Stomach cancer Surgical History Surgical History History of kidney surgery Hx of bone graft Hx of cholecystectomy Social History Social History Household Members: Spouse Housing: House Do you presently have visiting nurse or other home services: No Alcohol intake: never Patient Tobacco Use Status: Never used Tobacco Current occupational status: [employer] Meds Allergies Allergy/AdvReac Type Severity Reaction Status Date / Time No Known Allergies Allergy Verified 02/12/21 01:37 [No Known Allergies*] Active Medications: Current Medications Acetaminophen (Acetaminophen 325 Mg Tablet) 650 mg PO Q6H PRN PRN Reason: Pain, Mild (Pain Scale 1-3) Albuterol Sulfate (Albuterol Sulfate (0.083%) 2.5 Mg/3 Ml Vial.Neb) 2.5 mg INHALE Q4H PRN PRN Reason: wheezing/sob Amlodipine Besylate (Amlodipine Besylate 10 Mg Tablet) 10 mg PO DAILY [facility]; Protocol Last Admin: 02/12/21 09:42 Dose: Not Given Documented by: Aspirin (Aspirin Enteric Coated 81 Mg Tablet.) 81 mg PO DAILY [facility] Last Admin: 02/12/21 09:43 Dose: Not Given Documented by: Atorvastatin Calcium (Atorvastatin Calcium 40 Mg Tablet) 40 mg PO DAILY [facility] Last Admin: 02/12/21 09:43 Dose: Not Given Documented by: Dextrose (Dextrose 50 % 25 Gm/50 Ml Vial) 25 gm IVPUSH Q15M PRN; Protocol PRN Reason: per Hypoglycemia Standing Ord. Docusate Sodium (Docusate Sodium 100 Mg Capsule) 100 mg PO DAILY PRN PRN Reason: Constipation Ergocalciferol (Ergocalciferol (Vitamin D2) 1,250 Mcg Capsule) 1,250 mcg PO Q7D [facility] Furosemide (Furosemide 40 Mg/4 Ml Vial) 40 mg IVPUSH DAILY [facility]; Protocol Last Admin: 02/12/21 09:44 Dose: Not Given Documented by: Gabapentin (Gabapentin 100 Mg Capsule) 200 mg PO BID [facility] Last Admin: 02/12/21 09:44 Dose: Not Given Documented by: Glucose (Glucose Gel 15 Gm Gel..Gram.) 15 gm PO Q15M PRN; Protocol PRN Reason: per Hypoglycemia Standing Ord. Heparin Sodium (Porcine) (Heparin Sodium,Porcine 5,000 Unit/Ml Vial) 5,000 unit SUBCUT Q12H [facility] Last Admin: 02/12/21 16:51 Dose: 5,000 unit Documented by: Hydralazine HCl (Hydralazine Hcl 50 Mg Tablet) 50 mg PO TID [facility]; Protocol Last Admin: 02/12/21 16:05 Dose: 50 mg Documented by: Ceftriaxone Sodium 1 gm/ (Sodium Chloride) 50 mls @ 100 mls/hr IV Q24H [facility] Insulin Human Lispro (Insulin Lispro 100 Unit/Ml 3 Ml Vial) 0 unit SUBCUT QIDACHS [facility]; Protocol Last Admin: 02/12/21 16:52 Dose: 2 unit Documented by: Insulin Human Lispro (Insulin Lispro 100 Unit/Ml 3 Ml Vial) 20 unit SUBCUT TIDAC [facility] Last Admin: 02/12/21 16:43 Dose: Not Given Documented by: Levothyroxine Sodium (Levothyroxine Sodium 25 Mcg Tablet) 25 mcg PO DAILY@0600 [facility] Last Admin: 02/12/21 06:16 Dose: 25 mcg Documented by: Lisinopril (Lisinopril 10 Mg Tablet) 10 mg PO BEDTIME [facility]; Protocol Melatonin (Melatonin 3 Mg Tablet) 6 mg PO BEDTIME [facility] Omeprazole (Omeprazole 40 Mg Capsule.Dr) 40 mg PO DAILY@0630 [facility] Last Admin: 02/12/21 09:45 Dose: Not Given Documented by: Ondansetron HCl (Ondansetron Hcl 4 Mg/2 Ml Vial) 4 mg IVPUSH Q8H PRN PRN Reason: Nausea and Vomiting Prednisone (Prednisone 20 Mg Tablet) 60 mg PO DAILY [facility] Last Admin: 02/12/21 16:55 Dose: 60 mg Documented by: Sevelamer Carbonate (Sevelamer Carbonate Tablet 800 Mg Tablet) 800 mg PO TIDAC [facility] Last Admin: 02/12/21 16:52 Dose: 800 mg Documented by: Sodium Chloride (0.9 % Sodium Chloride Flush 3 Ml Syringe) 3 ml IVFLUSH [facility] Last Admin: 02/12/21 16:05 Dose: 3 ml Documented by: Home Medications Medication Instructions Recorded Confirmed Last Taken Type amlodipine 10 mg tablet 1 tab PO QAM 02/12/21 02/12/21 Unknown History aspirin 81 mg tablet,delayed 1 tab PO DAILY@1200 02/12/21 02/12/21 Unknown History release atorvastatin 40 mg tablet 1 tab PO DAILY@1200 02/12/21 02/12/21 Unknown History ergocalciferol (vitamin D2) 1,250 1 cap PO MAR 02/12/21 02/12/21 Unknown History mcg (50,000 unit) capsule gabapentin 100 mg capsule 200 mg PO BID 02/12/21 02/12/21 Unknown History hydralazine 50 mg tablet 1 tab PO TID@0900,1200,1800 02/12/21 02/12/21 Unknown History insulin glargine U-300 conc 300 32 unit SUBCUT DAILY 02/12/21 02/12/21 Unknown History unit/mL (3 mL) subcutaneous pen (Toujeo Max U-300 SoloStar) insulin lispro 100 unit/mL 20 unit SUBCUT TIDAC 02/12/21 02/12/21 Unknown History subcutaneous pen (Humalog KwikPen (U-100) Insulin) levothyroxine 25 mcg tablet 1 tab PO QAM 02/12/21 02/12/21 Unknown History lisinopril 10 mg tablet 1 tab PO BEDTIME 02/12/21 02/12/21 Unknown History melatonin 5 mg tablet 1 tab PO BEDTIME 02/12/21 02/12/21 Unknown History omeprazole 40 mg capsule,delayed 1 cap PO DAILY 02/12/21 02/12/21 Unknown History release sevelamer carbonate 800 mg tablet 1 tab PO TIDAC 02/12/21 02/12/21 Unknown History sitagliptin 25 mg tablet (Januvia) 1 tab PO QAM 02/12/21 02/12/21 Unknown History Physical Exam Vital Signs: Last Vital Signs Temp 97.4 F 02/12/21 15:47 Pulse 84 02/12/21 16:05 Resp 16 02/12/21 15:47 BP 158/58 H 02/12/21 16:05 Pulse Ox 95 02/12/21 16:29 Oxygen Flow Rate 4 02/12/21 00:36 Body Mass Index 36.6 Const General: cooperative Orientation/consciousness: oriented to person Neck Neck: Yes supple and Yes no JVD Resp Effort & Inspection: able to speak in complete sentences Auscultation: rhonchi and diminished lung sounds Percussion: hyperresonance Cardio Jugular venous distension: no JVD Rate: regular rate Heart sounds: no gallops and no rubs GI Palpation (GI): Soft to palpation Auscultation: normal bowel sounds Neuro General: oriented to person Motor exam (neuro): no tremors and No Asterixis during motor activity present Vital Signs: Last Vital Signs Temp 97.4 F 02/12/21 15:47 Pulse 84 02/12/21 16:05 Resp 16 02/12/21 15:47 BP 158/58 H 02/12/21 16:05 Pulse Ox 95 02/12/21 16:29 Oxygen Flow Rate 4 02/12/21 00:36 Body Mass Index 36.6 Const General: cooperative Orientation/consciousness: oriented to person Neck Yes supple and Yes no JVD Resp Effort & Inspection: able to speak in complete sentences Auscultation: rhonchi and diminished lung sounds Percussion: hyperresonance Cardio Jugular venous distension: no JVD Rate: regular rate Heart sounds: no gallops and no rubs GI Palpation (GI): Soft to palpation Auscultation: normal bowel sounds Neuro General: oriented to person Motor exam (neuro): no tremors and No Asterixis during motor activity present Results Lab Results Result Diagrams: 02/12/21 06:00 02/12/21 06:00 Lab results: Chemistry 02/12/21 02/12/21 01:38 06:00 Sodium 136 137 Potassium 5.4 H 5.3 H Carbon Dioxide 22 21 L BUN 89 H* D 93 H* Creatinine 8.68 H* 8.95 H* Calcium 8.2 L D 8.4 Hematology 02/12/21 02/12/21 01:08 06:00 WBC 7.1 7.1 Hgb 8.0 L D 7.9 L Plt Count 187 174 Urinalysis 02/12/21 02:55 Urine Color YELLOW Urine Appearance HAZY Urine pH 5.5 Ur Specific [place] >= 1.030 H Urine Protein 2+ H Urine Glucose (UA) NEG Urine Ketones NEG Urine Blood NEG Urine Nitrite NEG Ur Leukocyte Esterase 1+ H Urine RBC 1-4 Urine WBC 15-29 H Ur Squamous Epith Cells 1+ Assessment and Plan (1) ESRD needing dialysis: Status: Acute HD today Will remove fluid as tolerated HD again tomorrow and back on MWF schedule Add Epogen for anemia Procedures Date of Service Date of Service: 02/12/21 CKD 55 yr old woman with ESRD on HD on MWF at [facility] Last HDon Thursday Comes in with dyspnea nad cough Tested positive for RSV COVID 19 negative Cinsult requested for dialysis Stage of renal disease: stage (ESRD)
[2021-02-12 21:02] LABS: Glucose, Whole Blood 339 mg/dL (60-115)
[2021-02-12] MEDS: Melatonin 3 MG TABLET 6 MG PO (21:41)
[2021-02-12] MEDS: Gabapentin 100 MG CAPSULE 200 MG PO (21:42)
[2021-02-12] MEDS: lisinopriL 10 MG TABLET PO (21:42)
[2021-02-13] VITALS (10 sets, daily range): BP systolic 111–136; BP diastolic 48–68; PULSE 63–86; RESP 18–19; TEMP 35.6–37.1; O2SAT 91–99
[2021-02-13] MEDS: 0.9 % Sodium Chloride Flush 3 ML SYRINGE IVFLUSH ×2 (00:23→16:39)
[2021-02-13] MEDS: Albuterol Sulfate (0.083%) 2.5 MG/3 ML VIAL.NEB INHALE (03:36)
[2021-02-13] MEDS: cefTRIAXone sodium 1 GM in 0.9 % Sodium Chloride 50 ML IV (05:11)
[2021-02-13] MEDS: Heparin Sodium,Porcine 5,000 UNIT/ML VIAL 5000 UNIT SUBCUT ×2 (05:14→16:35)
[2021-02-13] MEDS: Omeprazole 40 MG CAPSULE.DR PO (06:13)
[2021-02-13] MEDS: Levothyroxine Sodium 25 MCG TABLET PO (06:13)
--- NOTE | 2021-02-13 07:16 | MHC.PIE ---
Addendum entered by Emma Flood RN 02/13/21 07:21: DR. LOPEZ ADDED AN ADDITIONAL 5 UNITS OF INSULIN Original Note: P FBS 545 I TIGERTEXED , HAS ORDERED 20 UNITS SCHEDULED PLUS SLIDING SCALE WHICH IS 10 UNITS, WILL GET LAB DRAW E AWAITING RESPONSE FROM DR. LOPEZ, MONITOR PATIENT.
[2021-02-13] MEDS: Insulin Lispro 100 UNIT/ML 3 ML VIAL 20 UNIT SUBCUT ×2 (07:26→16:47)
[2021-02-13] MEDS: Insulin Lispro 100 UNIT/ML 3 ML VIAL SUBCUT ×3 (07:26→21:12)
[2021-02-13 07:40] LABS: Glucose, Whole Blood 545 mg/dL (60-115)
[2021-02-13 07:40] LABS: Glucose, Whole Blood 596 mg/dL (60-115)
[2021-02-13] MEDS: Insulin Lispro 100 UNIT/ML 3 ML VIAL 10 UNIT SUBCUT (07:45)
[2021-02-13] MEDS: Sevelamer Carbonate Tablet 800 MG TABLET PO ×2 (07:46→16:35)
--- NOTE | 2021-02-13 07:56 | PC.NURSE ---
DR. LOPEZ NOTIFIED VIA TIGER TEXT OF 1 OUT OF 2 BLOOD CULTURES POSITIVE FOR GRAM POSITIVE COCCI IN CLUSTERS.
--- NOTE | 2021-02-13 10:21 | P.PNIM_ITS ---
Subjective Subjective Date of Service: 02/13/21 Interval History: Patient states notable difference since 1st dose of prednisone. Breathing improved but still with an oxygen requirement. Notes improvement overall with dialysis. Appetite good Review of Systems Denies chest pain Denies shortness of breath Denies nausea vomiting Physical Exam Vital Signs: Vital Signs: Last Vital Signs Temp 98.5 F 02/13/21 07:06 Pulse 77 02/13/21 07:06 Resp 19 02/13/21 07:06 BP 119/48 L 02/13/21 07:06 Pulse Ox 98 02/13/21 07:06 Oxygen Flow Rate 4 02/12/21 00:36 Body Mass Index 36.6 Const: General: no acute distress HENMT: Other: Membranes moist Resp: Other: Good aeration all gee; expiratory wheezes lower gee improvement since yesterday. Coarse rhonchi that clear with cough Cardio: Rate: regular rate Rhythm: regular rhythm Heart sounds: S1 normal heart sound present, S2 normal heart sound present and Murmur heart sound present GI: Other: Soft nontender nondistended with normoactive bowel sounds. There are no peritoneal signs Neuro: Other: Age-appropriate nonfocal Extrem: General: Yes edema Objective Data Active Medications Acetaminophen (Acetaminophen 325 Mg Tablet) 650 mg PO Q6H PRN PRN Reason: Pain, Mild (Pain Scale 1-3) Albuterol Sulfate (Albuterol Sulfate (0.083%) 2.5 Mg/3 Ml Vial.Neb) 2.5 mg INHALE Q4H PRN PRN Reason: wheezing/sob Last Admin: 02/13/21 03:36 Dose: 2.5 mg Documented by: TAHIR Amlodipine Besylate (Amlodipine Besylate 10 Mg Tablet) 10 mg PO DAILY [facility]; Protocol Last Admin: 02/13/21 09:54 Dose: Not Given Documented by: SHEREEN Non-Admin Reason: Off unit: Dialysis Aspirin (Aspirin Enteric Coated 81 Mg Tablet.) 81 mg PO DAILY [facility] Last Admin: 02/13/21 09:54 Dose: Not Given Documented by: SHEREEN Non-Admin Reason: Off unit: Dialysis Atorvastatin Calcium (Atorvastatin Calcium 40 Mg Tablet) 40 mg PO DAILY [facility] Last Admin: 02/13/21 09:54 Dose: Not Given Documented by: SHEREEN Non-Admin Reason: Off unit: Dialysis Dextrose (Dextrose 50 % 25 Gm/50 Ml Vial) 25 gm IVPUSH Q15M PRN; Protocol PRN Reason: per Hypoglycemia Standing Ord. Docusate Sodium (Docusate Sodium 100 Mg Capsule) 100 mg PO DAILY PRN PRN Reason: Constipation Ergocalciferol (Ergocalciferol (Vitamin D2) 1,250 Mcg Capsule) 1,250 mcg PO Q7D [facility] Furosemide (Furosemide 40 Mg/4 Ml Vial) 40 mg IVPUSH DAILY [facility]; Protocol Last Admin: 02/13/21 09:55 Dose: Not Given Documented by: SHEREEN Non-Admin Reason: Off unit: Dialysis Gabapentin (Gabapentin 100 Mg Capsule) 200 mg PO BID [facility] Last Admin: 02/13/21 09:55 Dose: Not Given Documented by: SHEREEN Non-Admin Reason: Off unit: Dialysis Glucose (Glucose Gel 15 Gm Gel..Gram.) 15 gm PO Q15M PRN; Protocol PRN Reason: per Hypoglycemia Standing Ord. Heparin Sodium (Porcine) (Heparin Sodium,Porcine 5,000 Unit/Ml Vial) 5,000 unit SUBCUT Q12H [facility] Last Admin: 02/13/21 05:14 Dose: 5,000 unit Documented by: JAMILA Hydralazine HCl (Hydralazine Hcl 50 Mg Tablet) 50 mg PO TID [facility]; Protocol Last Admin: 02/13/21 09:55 Dose: Not Given Documented by: SHEREEN Non-[place] Reason: Off Unit: Surgery Ceftriaxone Sodium 1 gm/ (Sodium Chloride) 50 mls @ 100 mls/hr IV Q24H [facility] Last Infusion: 02/13/21 06:02 Dose: 0 mls/hr Documented by: JAMILA Insulin Human Lispro (Insulin Lispro 100 Unit/Ml 3 Ml Vial) 0 unit SUBCUT QIDACHS [facility]; Protocol Last Admin: 02/13/21 07:26 Dose: 15 unit Documented by: SHEREEN Insulin Human Lispro (Insulin Lispro 100 Unit/Ml 3 Ml Vial) 20 unit SUBCUT TID AC [facility] Last Admin: 02/13/21 07:26 Dose: 20 unit Documented by: SHEREEN Levothyroxine Sodium (Levothyroxine Sodium 25 Mcg Tablet) 25 mcg PO DAILY@0600 [facility] Last Admin: 02/13/21 06:13 Dose: 25 mcg Documented by: HO.KIRBYKA Lisinopril (Lisinopril 10 Mg Tablet) 10 mg PO BEDTIME [facility]; Protocol Last Admin: 02/12/21 21:42 Dose: 10 mg Documented by: NAHID Melatonin (Melatonin 3 Mg Tablet) 6 mg PO BEDTIME [facility] Last Admin: 02/12/21 21:41 Dose: 6 mg Documented by: NAHID Omeprazole (Omeprazole 40 Mg Capsule.Dr) 40 mg PO DAILY@0630 [facility] Last Admin: 02/13/21 06:13 Dose: 40 mg Documented by: JAMILA Ondansetron HCl (Ondansetron Hcl 4 Mg/2 Ml Vial) 4 mg IVPUSH Q8H PRN PRN Reason: Nausea and Vomiting Prednisone (Prednisone 20 Mg Tablet) 60 mg PO DAILY [facility] Last Admin: 02/13/21 09:55 Dose: Not Given Documented by: SHEREEN Non-Admin Reason: Off unit: Dialysis Sevelamer Carbonate (Sevelamer Carbonate Tablet 800 Mg Tablet) 800 mg PO TIDAC [facility] Last Admin: 02/13/21 07:46 Dose: 800 mg Documented by: SHEREEN Sodium Chloride (0.9 % Sodium Chloride Flush 3 Ml Syringe) 3 ml IVFLUSH QSHIFT [facility] Last Admin: 02/13/21 00:23 Dose: 3 ml Documented by: JAMILA Labs CBC & Chem 7: 02/12/21 06:00 02/12/21 06:00 Labs: Laboratory Results - last 24 hr 02/12/21 02/12/21 02/12/21 13:49 16:25 20:44 POC Glucose 155 H 194 H 339 H 02/13/21 02/13/21 07:07 07:13 POC Glucose 545 H* 596 H* Microbiology Microbiology Results: Microbiology 02/12/21 01:08 Blood Culture - Preliminary Blood - Venous Prelim: GPC Gram Stain only 02/12/21 01:08 Blood Culture - Preliminary Blood - Venous No growth after 24 hours. Assessment and Plan (1) Acute CHF: Status: Acute Assessment and Plan: Essentially resolved after dialysis. Continue telemetry. Dialysis is ordered (2) Normocytic anemia: Status: Acute Assessment and Plan: Stable without active bleeding. Continue to monitor (3) UTI (urinary tract infection): Status: Acute Assessment and Plan: Urine culture pending will continue ceftriaxone empirically adjustment based on forthcoming data (4) RSV (acute bronchiolitis due to respiratory syncytial virus): Status: Acute Assessment and Plan: Prednisone added with excellent results. Will continue current dosing and titrate oxygen as indicated (5) T2DM (type 2 diabetes mellitus): Status: Acute Assessment and Plan: Elevation sugars expected with prednisone. Will adjust sliding scale appropriately and transition S taper completes Assessment and Plan: Further plans based on clinical course and forthcoming data Quality Stroke Does the patient have a stroke diagnosis?: No VTE Prior VTE?: No VTE Risk Level:: Medical - moderate - high VTE Device Contraindication: Treatment Not Indicated VTE Drug Contraindication: N/A - Med Ordered
--- NOTE | 2021-02-13 11:00 | CA_ITS ---
Transthoracic Echocardiogram Patient (Last, First, Middle): Sarah Dixon, Gender: Female Date of : 1965 Age: 55 Procedure Date: 02/13/2021 Procedure Type: Transthoracic Echocardiogram Location: [facility] [place] Height: 160.02 cm Weight: 93.9 kg BSA: 1.96 m2 Heart Rate: bpm BP: 126 / 60 mmHg Dispute Coordinator: Referring MD: Juanito Blake MD Piece Work Checker: Sy Ashford MD Symptoms: ELEVATED TROPONIN, CHF Study Quality: Fair ECG Rhythm: Sinus Conclusions: - 1. Normal LV systolic function with mild LVH with grade 2 diastolic dysfunction 2. Moderate left atrial enlargement 3. Normal cardiac valvular Doppler 4. Normal RV systolic pressure 5. Small pericardial effusion Findings Left Ventricle Normal left ventricular size and systolic function. There is mildly increased left ventricular wall thickness. The visually estimated ejection fraction is between 55-60%. Spectral Doppler is indicative of a pseudonormal filling pattern. E/E prime ratio is >15, consistent with elevated filling pressures. Evidence suggests grade II (moderate) diastolic dysfunction. Wall Motion Rest Echo Findings The basal inferior and basal inferoseptal segments are akinetic. All other scored wall segments showed normal motion. Right Ventricle The right ventricle was not well visualized. Atria The left atrium is moderately dilated. Interatrial shunt cannot be excluded. The right atrium was not well visualized. Aortic Valve The aortic valve structure and function is likely normal. There is no aortic valve stenosis. There is no aortic valve regurgitation. Mitral Valve There is mild anterior and posterior mitral leaflet thickening. There is trace mitral valve regurgitation. There is no mitral valve stenosis. Pulmonic Valve The pulmonic valve was not well visualized. Tricuspid Valve Likely normal tricuspid valve structure and function. There is mild tricuspid valve regurgitation. The right ventricular systolic pressure is normal. The right ventricular systolic pressure is 27 mmHg. Normal right atrial pressure. There is no evidence of pulmonary hypertension. Great Vessels All visible segments of the aorta are normal in size. The pulmonary artery was not well visualized. Venous The inferior vena cava is normal in size and collapses greater than 50% with inspiration. Pericardium/Pleural There is a small circumferential pericardial effusion. Prior Study Comparison No significant change compared to prior study dated: 12/21/2020. Measurements 2D Linear Measurements IVSd: 1.24 0.6-0.9/0.6-1.0 cm LVIDd: 4.76 3.9-5.3/4.2-5.9 cm LVIDd Index: 2.43 2.4-3.2/2.2-3.1 cm/m2 LVIDs: 3.30 2.0-3.6 cm LVPWd: 1.25 0.7-1.1 cm Ao Root: 2.90 2.1-3.5 cm LA Diam: 4.30 2.7-3.8/3.0-4.0 cm LAIDs Index: 2.19 1.5-2.3 cm/m2 LV Mass: 284.16 67-162/88-224 g LV Mass Index: 144.98 43-95/49-115 g/m2 LVOT Diam: 2.00 3.0+(-)1.3 cm 2D Systolic Function EF 4C: 54.30 >55% EF 2C: 53.50 >55% EF BiP: 54.40 >55% Mitral Valve MV Pk E: 1.01 MV PK A: 0.57 MV Decel Time: 149.00 E/A: 1.80 E'Lateral: 7.51 E'Medial: 5.22 E/E' Med: 19.30 E/E' Lat: 13.40 PHT: 44.00 MVA PHT: 5.00 Decel [place]: 6.78 Aortic Valve AoV Pk Ash: 1.81 AoV Mn Ash: 0.92 AoV VTI: 0.33 AoV Pk Grad: 13.00 Aov Mn Grad: 4.00 [facility] Cont.VTI: 1.83 LVOT LVOT Pk Ash: 0.82 LVOT Mn Ash: 0.55 LVOT VTI: 0.19 LVOT Pk Grad: 3.00 LVOT Mn Grad: 1.00 LVOT Diam: 2.00 LVOT Area: 3.14 Diastolic Function MV Pk E: 1.01 MV Pk A: 0.57 E/A: 1.80 E'Medial: 5.22 E/E' Med: 19.30 E' Laterial: 7.51 E/E' Lat: 13.40 Tricuspid Valve TR Pk Ash: 2.44 TR Pk Grad: 24.00 RA Press: 3.00 RVSP: 27.00 Great Vessels Aorta Ao Root-2D: 2.90 2.0-3.7 cm Ao Asc: 3.00 2.1-3.4 cm Pulmonary Valve PV Pk Ash: 0.86 Peak PV Grad: 3.00 Updated in Other Vendor System with Status of Final Sy Ashford MD electronically signed on 02/13/2021 2:51:29 PM with status of Final
--- NOTE | 2021-02-13 11:18 | W.PM.DNNEP ---
Subjective Subjective This patient was seen during dialysis. Interval history: Events noted Feels better Physical Exam Vital Signs: Vital Signs: Last Vital Signs Temp 98.5 F 02/13/21 07:06 Pulse 77 02/13/21 07:06 Resp 19 02/13/21 07:06 BP 119/48 L 02/13/21 07:06 Pulse Ox 98 02/13/21 07:06 Oxygen Flow Rate 4 02/12/21 00:36 Body Mass Index 36.6 Const: General: cooperative Orientation/consciousness: oriented to person Neck: Neck: Yes supple and Yes no JVD Resp: Effort & Inspection: able to speak in complete sentences Auscultation: rhonchi and diminished lung sounds Percussion: hyperresonance Cardio: Jugular venous distension: no JVD Rate: regular rate Heart sounds: no gallops and no rubs GI: Palpation (GI): Soft to palpation Auscultation: normal bowel sounds Neuro: General: oriented to person Motor exam (neuro): no tremors and No Asterixis during motor activity present Assessment & Plan Assessment and plan (1) ESRD needing dialysis: Status: Acute Assessment and Plan: HD today Will remove fluid as tolerated HD -on MWF schedule Epogen for anemia Time Spent With Patient Time: Total time spent is greater than 50% in coordination of care (as documented) at patient's floor/unit and/or counseling patient: Time with patient: 15 - 24 minutes Procedures Date of Service Date of Service: 02/13/21
[2021-02-13] MEDS: Acetaminophen 325 MG TABLET 650 MG PO (11:39)
[2021-02-13 11:41] LABS: Alanine Aminotransferase 69 U/L (0-31); Albumin Level 3.7 g/dL (3.5-5.0); Alkaline Phosphatase 197 U/L (39-117); Anion Gap 18 (12-20); Aspartate Amino Transferase 37 U/L (5-31); Bilirubin Total 0.5 mg/dL (0.0-1.0); Blood Urea Nitrogen 43 mg/dL (9-16); Calcium 8.3 mg/dL (8.4-10.2); Carbon Dioxide 19 mmol/L (22-29); Chloride 100 mmol/L (96-108); Creatinine Clr Calc Pharmacy 15.7; Estimated Glomerular Filt Rate 10; Glucose Fasting 363 mg/dL (60-99); Potassium 4.1 mmol/L (3.3-5.1); Sodium 133 mmol/L (135-145); Total Protein 7.5 g/dL (6.5-8.0)
--- NOTE | 2021-02-13 11:44 | MHC.CLN ---
F/U PATIENT WITH ESRD AND RECEIVES HEMODIALYSIS . ADDED LOW PHOSPHOROUS AND LOW POTASSIUM TO DIET ORDER. DIET=DIABETIC 1800 KCAL, 2 GRAM SODIUM, LOW PHOSPHOROUS, LOW POTASSIUM.
--- NOTE | 2021-02-13 12:41 | P.CDIC_ITS ---
CDI Concurrent Query Documentation Clarification: PHYSICIAN'S DOCUMENTATION REQUEST Date of Query: 02/13/21 1241 Patient Name: Sarah Corado Admit Date: 02/12/21 Dear Doctor, A review of the medical record indicates additional documentation may be needed. Please review below and update the documentation accordingly. Clinical Indicators: Risk Factors/Clinical Indicators/Treatments T 100.5 P 91 WBC 7.1 LA 1.8 H&P: Acute Respiratory Failuire with Hypoxia, Acute Viral Bronchiolitis due to RSV, UTI ESRD on dialysis Please clarify which, if any, of the following is the most likely etiology of the above symptoms and treatment rendered: * Sepsis * Systemic manifestations of infection, with 2 or more SIRS criteria which include: - Fever > 100.4F or hypothermia < 96.8 F - Leukocytosis - WBC > 12,000 or leukopenia, WBC < 4,000 or > 10% bands - Tachycardia > 90 beats/minute - Tachypnea - RR > 20 breaths/minute or PaCO2 < 32mmHg (Source: Merck Manual 2013) * Indicate the known or suspected organism * Indicate the known or suspected underlying infection, such as UTI, pneumonia, or cellulitis * Indicate if a suspected bacterial infection of unknown source * Indicate if associated with an implanted device such as a F/C, PICC line, orthopedic hardware, etc. * Severe Sepsis * Sepsis with associated acute organ dysfunction, such as renal or respiratory failure * Documentation should indicate the association between the sepsis and the organ dysfunction * Other (please specify) * Unable to determine Use of terms such as suspected, likely, concern for, or probable (associated with a specific diagnosis that is being evaluated, monitored, or treated as if it exists) are acceptable and can be coded in the inpatient setting, when docume nted at the time of discharge. Thank you, Tati Valiente RN Extension: [phone] Please use your independent medical judgment in providing your response. THIS QUERY IS PART OF THE PERMANENT MEDICAL RECORD
--- NOTE | 2021-02-13 13:44 | PM.PNCARD ---
Subjective Subjective Date of Service: 02/13/21 Principal diagnosis: CHF Interval history: Patient undergoing dialysis, 2nd session today. Says her breathing is improved. However continues to have cough and congestion with productive phlegm. Started seeing prednisone for the same. Blood pressure is well controlled. Denies any chest pain Review of Systems Constitutional: Reports chills, Reports fever(s), Reports lethargy and Reports malaise Eyes: Reports no additional eye complaints Reports system reviewed and no additional complaints, except as documented Cardiovascular: Denies chest pain, Denies pedal edema, Denies lightheadedness, Denies Loss of Consciousness and Reports dyspnea Respiratory: Reports cough, Reports excessive phlegm production and Reports dyspnea Gastrointestinal: Reports no additional gastrointestinal complaints Genitourinary: Reports no additional female genitourinary complaints Musculoskeletal: Reports no additional musculoskeletal complaints Reports system reviewed and no additional complaints, except as documented Psychiatric: Reports no additional psychiatric complaints Endocrine: Reports no additional endocrine complaints Hematologic/Lymphatic: Reports no additional hematologic/lymphatic complaints Allergic/Immunologic: Reports no additional allergic/immunologic complaints Physical Exam Vital Signs: Last Vital Signs Temp 98.5 F 02/13/21 07:06 Pulse 77 02/13/21 07:06 Resp 19 02/13/21 07:06 BP 119/48 L 02/13/21 07:06 Pulse Ox 98 02/13/21 07:06 Oxygen Flow Rate 4 02/12/21 00:36 Body Mass Index 36.6 Const General: cooperative, comfortable and no acute distress Nutritional Appearance: obese Orientation/consciousness: patient oriented x3 Neck Neck: Yes trachea midline, Yes supple and Yes other (Difficult to evaluate JVD) Resp Effort & Inspection: normal respiratory effort Auscultation: no rales, no wheezes and diminished lung sounds Cardio Rate: regular rate Rhythm: regular rhythm Heart sounds: S1 normal heart sound present, S2 normal heart sound present, no click, no gallops and Murmur heart sound present systolic early Skin General skin exam: no rashes or lesions noted Neuro General: patient oriented x3 Extrem General: Yes no clubbing, cyanosis or edema Results Labs and Meds Result diagrams: 02/12/21 06:00 02/13/21 11:06 Lab results: Laboratory Results - last 24 hr 02/12/21 02/12/21 02/12/21 13:49 16:25 20:44 Sodium Potassium Chloride Carbon Dioxide Anion Gap BUN Creatinine Estim Creat Clear Calc Estimated GFR POC Glucose 155 H 194 H 339 H Fasting Glucose Calcium Total Bilirubin AST ALT Alkaline Phosphatase Total Protein Albumin 02/13/21 02/13/21 02/13/21 07:07 07:13 11:06 Sodium 133 L Potassium 4.1 D Chloride 100 Carbon Dioxide 19 L Anion Gap 18 BUN 43 H D Creatinine 4.45 H* Estim Creat Clear Calc 15.7 Estimated GFR 10 POC Glucose 545 H* 596 H* Fasting Glucose 363 H* Calcium 8.3 L Total Bilirubin 0.5 AST 37 H D ALT 69 H Alkaline Phosphatase 197 H Total Protein 7.5 Albumin 3.7 Progress Note: A&P Assessment and plan (1) Acute CHF: Status: Acute Assessment and Plan: Congestive heart failure is related to volume overload in patient with end-stage renal disease on dialysis. Clinically seems to be improving dialysis. Reset her dialysis dry weight and being followed by Nephrology for the same. Intermittently can use diuretics. CHF education to be provided. Daily weight monitoring and avoidance of salt loading as outpatient. Continue current antihypertensive regimen. Will require ischemic workup as an outpatient. Will also require sleep study as an outpatient. Can be discharged from cardiac perspective once ready. Will sign of the case. Will follow as outpatient. Fall Risk Details Current Medications: Current Medications Acetaminophen (Acetaminophen 325 Mg Tablet) 650 mg PO Q6H PRN PRN Reason: Pain, Mild (Pain Scale 1-3) Last Admin: 02/13/21 11:39 Dose: 650 mg Documented by: Albuterol Sulfate (Albuterol Sulfate (0.083%) 2.5 Mg/3 Ml Vial.Megan) 2.5 mg INHALE Q4H PRN PRN Reason: wheezing/sob Last Admin: 02/13/21 03:36 Dose: 2.5 mg Documented by: Amlodipine Besylate (Amlodipine Besylate 10 Mg Tablet) 10 mg PO DAILY [facility]; Protocol Last Admin: 02/13/21 09:54 Dose: Not Given Documented by: Aspirin (Aspirin Enteric Coated 81 Mg Tablet.) 81 mg PO DAILY [facility] Last Admin: 02/13/21 09:54 Dose: Not Given Documented by: Atorvastatin Calcium (Atorvastatin Calcium 40 Mg Tablet) 40 mg PO DAILY [facility] Last Admin: 02/13/21 09:54 Dose: Not Given Documented by: Dextrose (Dextrose 50 % 25 Gm/50 Ml Vial) 25 gm IVPUSH Q15M PRN; Protocol PRN Reason: per Hypoglycemia Standing Ord. Docusate Sodium (Docusate Sodium 100 Mg Capsule) 100 mg PO DAILY PRN PRN Reason: Constipation Ergocalciferol (Ergocalciferol (Vitamin D2) 1,250 Mcg Capsule) 1,250 mcg PO Q7D [facility] Furosemide (Furosemide 40 Mg/4 Ml Vial) 40 mg IVPUSH DAILY [facility]; Protocol Last Admin: 02/13/21 09:55 Dose: Not Given Documented by: Gabapentin (Gabapentin 100 Mg Capsule) 200 mg PO BID [facility] Last Admin: 02/13/21 09:55 Dose: Not Given Documented by: Glucose (Glucose Gel 15 Gm Gel..Gram.) 15 gm PO Q15M PRN; Protocol PRN Reason: per Hypoglycemia Standing Ord. Heparin Sodium (Porcine) (Heparin Sodium,Porcine 5,000 Unit/Ml Vial) 5,000 unit SUBCUT Q12H [facility] Last Admin: 02/13/21 05:14 Dose: 5,000 unit Documented by: Hydralazine HCl (Hydralazine Hcl 50 Mg Tablet) 50 mg PO TID [facility]; Protocol Last Admin: 02/13/21 09:55 Dose: Not Given Documented by: Ceftriaxone Sodium 1 gm/ (Sodium Chloride) 50 mls @ 100 mls/hr IV Q24H [facility] Last Infusion: 02/13/21 06:02 Dose: Infused Documented by: Insulin Human Lispro (Insulin Lispro 100 Unit/Ml 3 Ml Vial) 0 unit SUBCUT QIDACHS [facility]; Protocol Last Admin: 02/13/21 12:42 Dose: Not Given Documented by: Insulin Human Lispro (Insulin Lispro 100 Unit/Ml 3 Ml Vial) 20 unit SUBCUT TIDAC [facility] Last Admin: 02/13/21 12:42 Dose: Not Given Documented by: Levothyroxine Sodium (Levothyroxine Sodium 25 Mcg Tablet) 25 mcg PO DAILY@0600 [facility] Last Admin: 02/13/21 06:13 Dose: 25 mcg Documented by: Lisinopril (Lisinopril 10 Mg Tablet) 10 mg PO BEDTIME [facility]; Protocol Last Admin: 02/12/21 21:42 Dose: 10 mg Documented by: Melatonin (Melatonin 3 Mg Tablet) 6 mg PO BEDTIME [facility] Last Admin: 02/12/21 21:41 Dose: 6 mg Documented by: Omeprazole (Omeprazole 40 Mg Capsule.) 40 mg PO DAILY@0630 [facility] Last Admin: 02/13/21 06:13 Dose: 40 mg Documented by: Ondansetron HCl (Ondansetron Hcl 4 Mg/2 Ml Vial) 4 mg IVPUSH Q8H PRN PRN Reason: Nausea and Vomiting Prednisone (Prednisone 20 Mg Tablet) 60 mg PO DAILY [facility] Last Admin: 02/13/21 09:55 Dose: Not Given Documented by: Sevelamer Carbonate (Sevelamer Carbonate Tablet 800 Mg Tablet) 800 mg PO TIDAC [facility] Last Admin: 02/13/21 12:43 Dose: Not Given Documented by: Sodium Chloride (0.9 % Sodium Chloride Flush 3 Ml Syringe) 3 ml IVFLUSH QSHIFT [facility] Last Admin: 02/13/21 00:23 Dose: 3 ml Documented by: Time Spent With Patient Time: Total time spent is greater than 50% in coordination of care (as documented) at patient's floor/unit and/or counseling patient: Time with patient: 15 - 24 minutes Progress Note: Quality Stroke Does the patient have a stroke diagnosis?: No Procedures Date of Service Date of Service: 02/13/21
[2021-02-13 16:29] LABS: Glucose, Whole Blood 222 mg/dL (60-115)
[2021-02-13 16:33] LABS: Glucose, Whole Blood 243 mg/dL (60-115)
[2021-02-13] MEDS: diphenhydrAMINE HCL 25 MG TABLET PO (16:35)
[2021-02-13] MEDS: hydrALAZINE HCl 50 MG TABLET PO ×2 (16:35→21:12)
[2021-02-13 21:02] LABS: Glucose, Whole Blood 280 mg/dL (60-115)
[2021-02-13] MEDS: Gabapentin 100 MG CAPSULE 200 MG PO (21:12)
[2021-02-13] MEDS: Melatonin 3 MG TABLET 6 MG PO (21:12)
[2021-02-13] MEDS: lisinopriL 10 MG TABLET PO (21:15)
[2021-02-14] MEDS: 0.9 % Sodium Chloride Flush 3 ML SYRINGE IVFLUSH ×2 (00:17→07:59)
[2021-02-14 04:00] VITALS: BP 102/55; PULSE 63; RESP 16; TEMP 36.4; O2SAT 99
[2021-02-14 06:00] VITALS: BMI 35.9
[2021-02-14] MEDS: Heparin Sodium,Porcine 5,000 UNIT/ML VIAL 5000 UNIT SUBCUT (06:13)
[2021-02-14] MEDS: cefTRIAXone sodium 1 GM in 0.9 % Sodium Chloride 50 ML IV (06:14)
[2021-02-14] MEDS: Levothyroxine Sodium 25 MCG TABLET PO (06:15)
[2021-02-14] MEDS: Omeprazole 40 MG CAPSULE.DR PO (06:16)
[2021-02-14 06:39] LABS: MANUAL DIFF FLAG NO
[2021-02-14 06:51] LABS: Basophils Percent Auto 0.3 % (0-2); Eosinophils Absolute Auto 0.2 X10*3/uL (0.0-0.4); Eosinophils Percent Auto 2.2 % (0-4); Hematocrit 26.8 % (37-47); Hemoglobin 8.8 g/dl (12.0-16.0); Imm Gran Pct Auto 1.1 % (0.0-0.4); Lymphocytes Absolute Auto 2.7 X10*3/uL (1.2-4.9); Lymphocytes Percent Auto 29.1 % (20-40); Mean Corpuscular HGB Conc 32.8 g/dl (31.0-35.0); Mean Corpuscular Hemoglobin 29.9 pg (27.0-33.0); Mean Corpuscular Volume 91.2 fL (80-98); Monocytes Absolute Auto 0.5 X10*3/uL (0.1-1.2); Monocytes Percent Auto 5.7 % (2-11); NRBC Pct Auto 0.2 /100WBC (0.0-0.2); Neutrophils Absolute Auto 5.8 X10*3/uL (2.0-8.3); Neutrophils Percent Auto 61.6 % (45-73); Platelet Count 227 X10*3/uL (160-400); Red Blood Count 2.94 X10*6/uL (4.20-5.50); Red Cell Distribution Width 14.4 % (11.0-16.0); White Blood Count 9.4 X10*3/uL (4.8-10.8)
[2021-02-14 07:36] LABS: Glucose, Whole Blood 358 mg/dL (60-115)
[2021-02-14 07:54] VITALS: BP 120/62; PULSE 78; RESP 16; TEMP 37.1; O2SAT 97
[2021-02-14] MEDS: Insulin Lispro 100 UNIT/ML 3 ML VIAL 20 UNIT SUBCUT ×2 (07:58→11:49)
[2021-02-14] MEDS: Atorvastatin Calcium 40 MG TABLET PO (07:58)
[2021-02-14] MEDS: Insulin Lispro 100 UNIT/ML 3 ML VIAL SUBCUT ×2 (07:58→11:48)
[2021-02-14] MEDS: Gabapentin 100 MG CAPSULE 200 MG PO (07:58)
[2021-02-14 07:59] VITALS: BP 120/62; PULSE 78
[2021-02-14] MEDS: amLODIPine Besylate 10 MG TABLET PO (07:59)
[2021-02-14] MEDS: Sevelamer Carbonate Tablet 800 MG TABLET PO ×2 (07:59→11:48)
[2021-02-14] MEDS: Aspirin Enteric Coated 81 MG TABLET.DR PO (07:59)
[2021-02-14] MEDS: hydrALAZINE HCl 50 MG TABLET PO (07:59)
[2021-02-14] MEDS: Furosemide 40 MG/4 ML VIAL IVPUSH (07:59)
[2021-02-14] MEDS: predniSONE 20 MG TABLET 60 MG PO (07:59)
[2021-02-14 08:40] VITALS: O2SAT 95
[2021-02-14 11:07] LABS: Glucose, Whole Blood 212 mg/dL (60-115)
[2021-02-14 11:40] VITALS: BP 121/60; PULSE 72; RESP 18; TEMP 36.9; O2SAT 95
--- NOTE | 2021-02-14 12:02 | PM.DS ---
DS: Providers Provider Date of Service: 02/14/21 Date of admission: 02/12/21 05:29 Primary care physician: Faith No MD Consults: 02/12/21 05:44 Consult to Cardiology Routine Consulting Provider: Sy Ashford Reason for consultation: elevated trop, volume overload Has provider been notified: No Consult to Nephrology Routine Consulting Provider: [facility] Reason for consultation: dialysis pt. missed dialysis, volume overload Has provider been notified: No Attending physician on discharge: Raul Culver Discharging clinician: Gabby Louie DS: Diagnosis Discharge Diagnosis (1) Acute respiratory failure with hypoxia: Status: Acute (2) Acute CHF: Status: Acute (3) Normocytic anemia: Status: Acute (4) UTI (urinary tract infection): Status: Acute (5) Elevated troponin: Status: Acute (6) RSV (acute bronchiolitis due to respiratory syncytial virus): Status: Acute DS: Summary Hospital Course Hospital Course: From H&P on day of admission This is a 55-year-old Setswana-speaking only female with past medical history of ESRD on dialysis, DM, HTN, hypothyroidism, HLD, CAD who presents to the hospital with complaints of shortness of breath and difficulty breathing.? Patient reports that her symptoms started 3 days ago, she has a cough, productive, some subjective fevers, some chills, nausea with no vomiting, no abdominal pain, no diarrhea or constipation, no urinary symptoms.? No lower extremity edema.? Patient reports that because she was feeling so sick she did not go to her dialysis on Thursday.? She usually goes to dialysis Thursday and Thursday.? Her last dialysis session was Thursday.? She denies having any chest pain, no palpitations.? No dizziness, no headache, no weakness numbness or tingling. All other review of system negative except as mentioned On arrival to the ED patient found to have a temp of a 100.5?, respiratory rate of 23, heart rate of 91, blood pressure 120/57, setting 88% on room air Labs are significant for WBC count of 7.1, hemoglobin of 8 that dropped from 10.7 in February, pH of 7.41, BUN of 89, creatinine of 8.68, troponin of 369 with repeat of of 372 no delta, BNP of 12 98, UA positive for leukocyte Estrace and WBC, RSV positive, COVID-19 negative. Chest x-ray shows pulmonary congestion Acute respiratory failure with hypoxia. This likely secondary to combination of fluid overload as well as RSV. She was able to be weaned off oxygen after dialysis and currently saturating well on room air. UTI. Urine culture returned positive. Will continue renally dosed oral Ceftin on discharge. RSV. Responded well to oral steroids. Will be discharged home a short course of prednisone. Recommend outpatient follow-up with PCP ESRD. Patient admitted for fluid overload. She was evaluated by Nephrology. She underwent dialysis x2 and symptoms improved. Will resume outpatient dialysis. She should call to schedule follow up with Nephrology. CHF. Seen by Cardiology. Had echocardiogram which showed grade 2 diastolic dysfunction and inferior and basal inferoseptal akinesis. Has history of coronary artery disease. Elevated troponins but flat and No chest pain. Cardiology recommended outpatient ischemic workup. She should call to schedule follow-up appointment with the cardiology office. Recommend outpatient sleep study to evaluate for AMARJIT. Time Spent with Patient Time attestation: Total time spent providing and/or coordinating discharge services: Discharge coordination time: Greater than 30 minutes Quality: Stroke Does the patient have a stroke diagnosis?: No Physical Exam Vital Signs: Vital Signs: Last Vital Signs Temp 98.5 F 02/14/21 11:40 Pulse 72 02/14/21 11:40 Resp 18 02/14/21 11:40 BP 121/60 02/14/21 11:40 Pulse Ox 95 02/14/21 11:40 Oxygen Flow Rate 4 02/12/21 00:36 Body Mass Index 35.9 Const: General: healthy appearing and comfortable Nutritional Appearance: overweight Orientation/consciousness: patient oriented x3 HENMT: Head: Yes normocephalic and Yes atraumatic Eyes: Sclerae: sclerae normal Chest: Chest palpation & inspection: normal inspection of the chest Resp: Effort & Inspection: normal respiratory effort and no respiratory distress Cardio: Rate: regular rate Rhythm: regular rhythm GI: Palpation (GI): Soft to palpation and nontender Neuro: General: patient oriented x3 Cranial nerves: Yes CN's II-XII intact bilaterally and Yes Bilaterally intact EOM present DS: Data Data Completed and Pending Labs on day of discharge: Laboratory Results - last 24 hr 02/13/21 02/13/21 02/13/21 15:42 16:29 20:49 WBC RBC Hgb Hct MCV MCH MCHC RDW Plt Count MPV Immature Gran % (Auto) Neut % (Auto) Lymph % (Auto) [place] % (Auto) Eos % (Auto) Baso % (Auto) Lymph # (Auto) [place] # (Auto) Eos # (Auto) Baso # (Auto) Abs Immat Gran (auto) Absolute Neuts (auto) Absolute Nucleated RBC Nucleated RBC % (auto) POC Glucose 222 H 243 H 280 H 02/14/21 02/14/21 02/14/21 06:34 07:32 11:01 WBC 9.4 RBC 2.94 L Hgb 8.8 L Hct 26.8 L MCV 91.2 MCH 29.9 MCHC 32.8 RDW 14.4 Plt Count 227 D MPV 12.0 Immature Gran % (Auto) 1.1 H Neut % (Auto) 61.6 Lymph % (Auto) 29.1 [place] % (Auto) 5.7 Eos % (Auto) 2.2 Baso % (Auto) 0.3 Lymph # (Auto) 2.7 [place] # (Auto) 0.5 Eos # (Auto) 0.2 Baso # (Auto) 0.0 Abs Immat Gran (auto) 0.10 H Absolute Neuts (auto) 5.8 Absolute Nucleated RBC 0.020 H Nucleated RBC % (auto) 0.2 POC Glucose 358 H* 212 H Preliminary micro results at discharge 02/12/21 01:08 Blood Culture - Preliminary Blood - Venous No growth after 48 hours. Discharge Plan Discharge Patient Disposition: Home, Self-Care Discharge Diagnosis: Acute respiratory failure with hypoxia RSV CHF Anemia Referrals: Faith Mason MD [Primary Care Provider] - 1 Week Anton Sparks MD [Physician] - 1 Week Sy Ashford MD [Physician] - 1 Week Discharge Medications: New prednisone 20 mg tablet 40 mg PO DAILY 4 Days Qty: 8 RF: 0 cefuroxime axetil 250 mg tablet 250 mg PO DAILY 4 Days Qty: 4 RF: 0 benzonatate [Tessalon Perles] 100 mg capsule 100 mg PO TID PRN (Reason: cough) Qty: 20 RF: 0 Continued (DME) blood-glucose meter [FreeStyle Lite Meter] Kit See Rx Instructions .ROUTE .MEDSUPPLY Qty: 1 RF: 0 (DME) FreeStyle Lite Strips Strip See Rx Instructions .ROUTE .MEDSUPPLY Qty: 100 RF: 11 (DME) lancets [FreeStyle Lancets] 28 gauge misc See Rx Instructions .ROUTE .MEDSUPPLY Qty: 100 RF: 11 (DME) pen needle, diabetic [BD Ultra-Fine Micro Pen Needle] 32 gauge x 1/4 needle See Rx Instructions .ROUTE .MEDSUPPLY Qty: 50 RF: 3 atorvastatin 40 mg tablet 1 tab PO DAILY@1200 RF: 0 omeprazole 40 mg capsule,delayed release(DR/EC) 1 cap PO DAILY RF: 0 aspirin 81 mg tablet,delayed release (DR/EC) 1 tab PO DAILY@1200 RF: 0 levothyroxine 25 mcg tablet 1 tab PO QAM RF: 0 amlodipine 10 mg tablet 1 tab PO QAM RF: 0 lisinopril 10 mg tablet 1 tab PO BEDTIME RF: 0 hydralazine 50 mg tablet 1 tab PO TID@0900,1200,1800 RF: 0 gabapentin 100 mg capsule 200 mg PO BID RF: 0 ergocalciferol (vitamin D2) 1,250 mcg (50,000 unit) capsule 1 cap PO MAR RF: 0 insulin lispro [Humalog KwikPen Insulin] 100 unit/mL insulin pen 20 unit subcut TIDAC RF: 0 Januvia 25 mg tablet 1 tab PO QAM RF: 0 sevelamer carbonate 800 mg tablet 1 tab PO TIDAC RF: 0 melatonin 5 mg tablet 1 tab PO BEDTIME RF: 0 Toujeo Max U-300 SoloStar 300 unit/mL (3 mL) insulin pen 32 unit subcut DAILY RF: 0 Discharge Orders: Discharge Order (Routine); Ordered 02/14/21 Ordered By: Gabby Louie Diet: diabetic diet and low salt diet Activity on Discharge: As tolerated Stand Alone Forms: Patient Portal Discharge page Care Plan Goals: see below Health Concerns: Acute respiratory failure with hypoxia Fluid overload/CHF ESRD on HD RSV Anemia UTI Plan of Treatment: Complete entire course of prednisone Complete entire course of antibiotics for UTI Call to schedule follow-up appointment with Cardiology Call to schedule follow up appointment with PCP Recommend low-sodium diet, monitor weight daily Recommend sleep study to evaluate for AMARJIT Resume dialysis as outpatient, follow up with setter automatic spinning lathe as needed Assessment: See discharge summary Discharge Date/Time: 02/14/21 14:38
--- NOTE | 2021-02-14 12:38 | MHC.CM.PN ---
with beba met with pt who reports livivng with her and uncle she goes to dialysis mon thu and thu in she has her own transportation home
--- NOTE | 2021-02-14 13:37 | P.PNNP_ITS ---
Subjective Subjective Date of Service: 02/14/21 Principal diagnosis: CHF Interval history: Events noted Feels better Physical Exam Vital Signs: Vital Signs: Last Vital Signs Temp 98.5 F 02/14/21 11:40 Pulse 72 02/14/21 11:40 Resp 18 02/14/21 11:40 BP 121/60 02/14/21 11:40 Pulse Ox 95 02/14/21 11:40 Oxygen Flow Rate 4 02/12/21 00:36 Body Mass Index 35.9 Const: General: cooperative Orientation/consciousness: oriented to person Neck: Neck: Yes supple and Yes no JVD Resp: Effort & Inspection: able to speak in complete sentences Auscultatio n: rhonchi and diminished lung sounds Percussion: hyperresonance Cardio: Jugular venous distension: no JVD Rate: regular rate Heart sounds: no gallops and no rubs GI: Palpation (GI): Soft to palpation Auscultation: normal bowel sounds Neuro: General: oriented to person Motor exam (neuro): no tremors and No Asterixis during motor activity present Objective Data Labs CBC & Chem 7: 02/14/21 06:34 02/13/21 11:06 Labs: Laboratory Results - last 24 hr 02/13/21 02/13/21 02/13/21 15:42 16:29 20:49 WBC RBC Hgb Hct MCV MCH MCHC RDW Plt Count MPV Immature Gran % (Auto) Neut % (Auto) Lymph % (Auto) [place] % (Auto) Eos % (Auto) Baso % (Auto) Lymph # (Auto) [place] # (Auto) Eos # (Auto) Baso # (Auto) Abs Immat Gran (auto) Absolute Neuts (auto) Absolute Nucleated RBC Nucleated RBC % (auto) POC Glucose 222 H 243 H 280 H 02/14/21 02/14/21 02/14/21 06:34 07:32 11:01 WBC 9.4 RBC 2.94 L Hgb 8.8 L Hct 26.8 L MCV 91.2 MCH 29.9 MCHC 32.8 RDW 14.4 Plt Count 227 D MPV 12.0 Immature Gran % (Auto) 1.1 H Neut % (Auto) 61.6 Lymph % (Auto) 29.1 [place] % (Auto) 5.7 Eos % (Auto) 2.2 Baso % (Auto) 0.3 Lymph # (Auto) 2.7 [place] # (Auto) 0.5 Eos # (Auto) 0.2 Baso # (Auto) 0.0 Abs Immat Gran (auto) 0.10 H Absolute Neuts (auto) 5.8 Absolute Nucleated RBC 0.020 H Nucleated RBC % (auto) 0.2 POC Glucose 358 H* 212 H Microbiology Microbiology Results: Microbiology 02/12/21 01:08 Blood - Venous Blood Culture - Final Coag negative Staphylococcus 02/12/21 01:08 Blood - Venous Blood Culture - Preliminary No growth after 48 hours. 02/12/21 Unknown Urine Catheterized - Grady Catheter Urine Culture - Final Procedures Date of Service Date of Service: 02/14/21 Assessment & Plan Assessment and plan (1) ESRD needing dialysis: Status: Acute Assessment and Plan: Will remove fluid as tolerated HD -on MWF schedule Epogen for anemia DC planing Time Spent With Patient Time: Total time spent is greater than 50% in coordination of care (as documented) at patient's floor/unit and/or counseling patient: Time with patient: 15 - 24 minutes Progress Note: Quality Stroke Does the patient have a stroke diagnosis?: No
--- NOTE | 2021-02-14 14:25 | MHC.CM.PN ---
PT CLEARED TO DC HOME TODAY WITH RESUMPTION OF HD. PT TO ARRANGE TRANSPORT
== END 2021-02-14 14:38 | disposition home or self-care (01) | DRG 138 ==
LOC: HO.ED 03:32 → HO.EDOVER 05:34 → HO.S3 06:53 → HO.IMC 02-13 14:51
PROVIDERS: Hospitalist; Internal Medicine; Admitting Provider Internal Medicine; Emergency Provider Emergency Medicine; PCP Internal Medicine; Visit Provider Physician Assistant Medical
DX: J21.0 Acute bronchiolitis due to respiratory syncytial virus (principal); J96.01 Acute respiratory failure with hypoxia; I13.2 Hypertensive heart and chronic kidney disease with heart failure and with stage 5 chronic kidney disease, or end stage renal disease; E11.22 Type 2 diabetes mellitus with diabetic chronic kidney disease; N18.6 End stage renal disease; I48.92 Unspecified atrial flutter; I25.10 Atherosclerotic heart disease of native coronary artery without angina pectoris; E03.9 Hypothyroidism, unspecified; N39.0 Urinary tract infection, site not specified; D63.1 Anemia in chronic kidney disease; I50.23 Acute on chronic systolic (congestive) heart failure; Z99.2 Dependence on renal dialysis; Z91.15 Patient's noncompliance with renal dialysis; Z20.822 Contact with and (suspected) exposure to COVID-19; Z79.82 Long term (current) use of aspirin; Z79.890 Hormone replacement therapy; Z79.899 Other long term (current) drug therapy
CPT/HCPCS: 0241U; 36415; 71045; 80048; 80053; 81001; 82607; 82728; 82746; 82803; 82947; 83605; 83880; 84484; 85025; 87040; 87086; 87147; 87205; 90999; 93005; 93306; 94640; 99285; J0696; J1940; Q0163

== ENCOUNTER 2021-02-20 06:51 | Emergency (ER) | payer MEDICAID, SELFPAY ==
--- NOTE | ~2021-02-20 | XR_ITS ---
EXAMINATION: XR CHEST CLINICAL INFORMATION: Chest pain, shortness of breath. COMPARISON: None TECHNIQUE: 2 views of the chest were obtained. FINDINGS: There is mild cardiomegaly with normal pulmonary vascularity. Both lungs are expanded with platelike atelectasis left midlung. No gross bony abnormality seen. XR/XR chest 2V IMPRESSION: Platelike atelectasis left midlung. Rest of the lungs are clear.
[2021-02-20 06:58] VITALS: BP 148/53; PULSE 73; RESP 16; TEMP 36.8; O2SAT 98; BMI 40.0
--- NOTE | 2021-02-20 08:47 | ECG_ITS ---
Test Reason : COUGH Blood Pressure : / mmHG Vent. Rate : 070 BPM Atrial Rate : 070 BPM P-R Int : 180 ms QRS Dur : 084 ms QT Int : 404 ms P-R-T Axes : 006 048 048 degrees QTc Int : 436 ms Normal sinus rhythm Anterior infarct , age undetermined Abnormal ECG When compared with ECG of 12-FEB-2021 06:05, [place] interval has decreased QRS axis Shifted left Referred By: Jose Albrecht Electronically Signed By:SAMY SANTIAGO
[2021-02-20] MEDS: Ketorolac Tromethamine 15 MG/ML VIAL 30 MG IVPUSH (09:04)
[2021-02-20 09:06] LABS: MANUAL DIFF FLAG NO
[2021-02-20 09:07] LABS: Basophils Percent Auto 0.1 % (0-2); Eosinophils Absolute Auto 0.7 X10*3/uL (0.0-0.4); Eosinophils Percent Auto 4.5 % (0-4); Hematocrit 30.2 % (37-47); Hemoglobin 9.7 g/dl (12.0-16.0); Imm Gran Abs Auto 0.18 X10*3/uL (0.00-0.03); Imm Gran Pct Auto 1.2 % (0.0-0.4); Lymphocytes Absolute Auto 3.3 X10*3/uL (1.2-4.9); Lymphocytes Percent Auto 22.2 % (20-40); Mean Corpuscular HGB Conc 32.1 g/dl (31.0-35.0); Mean Corpuscular Hemoglobin 29.8 pg (27.0-33.0); Mean Corpuscular Volume 92.9 fL (80-98); Monocytes Absolute Auto 1.1 X10*3/uL (0.1-1.2); Monocytes Percent Auto 7.1 % (2-11); Neutrophils Absolute Auto 9.7 X10*3/uL (2.0-8.3); Neutrophils Percent Auto 64.9 % (45-73); Platelet Count 312 X10*3/uL (160-400); Red Blood Count 3.25 X10*6/uL (4.20-5.50); Red Cell Distribution Width 15.6 % (11.0-16.0); White Blood Count 14.9 X10*3/uL (4.8-10.8)
[2021-02-20 09:25] LABS: COVID-19 Test Negative (Negative); IDNOW Serial# 9DD0AD1C
[2021-02-20 09:32] LABS: Alanine Aminotransferase 21 U/L (0-31); Albumin Level 3.4 g/dL (3.5-5.0); Alkaline Phosphatase 109 U/L (39-117); Anion Gap 17 (12-20); Aspartate Amino Transferase 13 U/L (5-31); Bilirubin Total 0.3 mg/dL (0.0-1.0); Blood Urea Nitrogen 92 mg/dL (9-16); Calcium 7.9 mg/dL (8.4-10.2); Carbon Dioxide 27 mmol/L (22-29); Chloride 100 mmol/L (96-108); Creatinine Clr Calc Pharmacy 12.1; Estimated Glomerular Filt Rate 7; Glucose Random 104 mg/dL (60-115); Potassium 4.9 mmol/L (3.3-5.1); Sodium 139 mmol/L (135-145); Total Protein 6.4 g/dL (6.5-8.0)
[2021-02-20 09:36] LABS: Troponin-I High Sensitivity 180.9 ng/L (<3.5-17.0)
[2021-02-20 10:29] VITALS: BP 152/67; PULSE 72; RESP 16; O2SAT 95
--- NOTE | 2021-02-20 11:52 | ED_ITS ---
HPI - General Adult General Chief complaint: General Medical Stated complaint: chest pain and cough Time Seen by Provider: 02/20/21 07:58 Source: patient Mode of arrival: EMS Limitations: language barrier (Slovenian speaking, the patient does speak some [place], labor delivery specialist used) History of Present Illness HPI narrative: 55-year-old female who presents emergency department for evaluation of chest tightness and sensation is if her lungs are filled with fluid. The patient states that yesterday, she developed a cough which is productive of clear sputum . She states that she had a subjective fever but did not take her temperature. She states that her cough became worse. She also states that developed a squeezing sensation in the center of her chest. The sensation is intermittent and worse with breathing. She states that the pain is mild to moderate intensity. The patient is a dialysis patient and she gets dialyzed on Thursday, Thursday and Thursday at 4:00 p.m.. She states that she has been told in the past when she gets the symptoms she is be evaluated for fluid in her lungs. Related Data Home Medications Medication Instructions Recorded Confirmed amlodipine 10 mg tablet 1 tab PO QAM 02/12/21 02/12/21 aspirin 81 mg tablet,delayed 1 tab PO DAILY@1200 02/12/21 02/12/21 release atorvastatin 40 mg tablet 1 tab PO DAILY@1200 02/12/21 02/12/21 ergocalciferol (vitamin D2) 1,250 1 cap PO MAR 02/12/21 02/12/21 mcg (50,000 unit) capsule gabapentin 100 mg capsule 200 mg PO BID 02/12/21 02/12/21 hydralazine 50 mg tablet 1 tab PO TID@0900,1200,1800 02/12/21 02/12/21 insulin glargine U-300 conc 300 32 unit SUBCUT DAILY 02/12/21 02/12/21 unit/mL (3 mL) subcutaneous pen (Toujeo Max U-300 SoloStar) insulin lispro 100 unit/mL 20 unit SUBCUT TIDAC 02/12/21 02/12/21 subcutaneous pen (Humalog KwikPen (U-100) Insulin) levothyroxine 25 mcg tablet 1 tab PO QAM 02/12/21 02/12/21 lisinopril 10 mg tablet 1 tab PO BEDTIME 02/12/21 02/12/21 melatonin 5 mg tablet 1 tab PO BEDTIME 02/12/21 02/12/21 omeprazole 40 mg capsule,delayed 1 cap PO DAILY 02/12/21 02/12/21 release sevelamer carbonate 800 mg tablet 1 tab PO TIDAC 02/12/21 02/12/21 sitagliptin 25 mg tablet (Januvia) 1 tab PO QAM 02/12/21 02/12/21 Previous Rx's Medication Instructions Recorded blood sugar diagnostic (FreeStyle #100 ea 06/27/20 Lite Strips) blood-glucose meter (FreeStyle #1 ea 06/27/20 Lite Meter) lancets 28 gauge (FreeStyle #100 ea 06/27/20 Lancets) pen needle, diabetic 32 gauge x #50 ea 01/14/2105/28 (BD Ultra-Fine Micro Pen Needle) benzonatate 100 mg capsule 100 mg PO TID PRN #20 cap 02/14/21 (Tessalon Latisha) cefuroxime axetil 250 mg tablet 250 mg PO DAILY 4 Days #4 tab 02/14/21 prednisone 20 mg tablet 40 mg PO DAILY 4 Days #8 tab 02/14/21 doxycycline hyclate 100 mg tablet 100 mg PO Q12H 10 Days #20 tab 02/20/21 Allergies Allergy/AdvReac Type Severity Reaction Status Date / Time No Known Allergies Allergy Verified 02/12/21 01:37 [No Known Allergies*] Review of Systems Review of Systems: Yes all other systems are reviewed and are negative [facility] Past Medical History [facility] Narrative: Social history: The patient denies tobacco use, she denies alcohol use, she denies drug use. Medical History AV fistula CAD (coronary artery disease) Dialysis patient ESRD (end stage renal disease) GERD (gastroesophageal reflux disease) HLD (hyperlipidemia) HTN (hypertension) Obesity due to excess calories Renal failure (ARF), acute on chronic T2DM (type 2 diabetes mellitus) Thyroid disease Surgical History History of kidney surgery Hx of bone graft Hx of cholecystectomy Family History Family History Father CVD (cardiovascular disease) Diabetes Mother Diabetes Sister Stomach cancer Social History Social History Household Members: Spouse Housing: House Do you presently have visiting nurse or other home services: No Alcohol intake: never Patient Tobacco Use Status: Never used Tobacco Use of substances other than those prescribed or required for medical reasons: No Advance Directives: No Advance Directives Information Provided: No service: No Current occupational status: disabled Physical Exam Vital Signs: Vital Signs: Last Vital Signs Temp 98.2 F 02/20/21 06:58 Pulse 72 02/20/21 10:29 Resp 16 02/20/21 10:29 BP 152/67 H 02/20/21 10:29 Pulse Ox 95 02/20/21 10:29 Body Mass Index 40.0 Const: General: cooperative and no acute distress Orientation/consciousness: oriented to person and oriented to place Limitations: no limitations HENMT: Head: Yes normal to inspection, Yes normocephalic and Yes atraumatic Ears: external ears normal General nose exam: Normal external nose present Face and sinus: Yes normal facial exam Mouth: Normal oral and palatal mucosa present Throat: Yes posterior oropharynx normal Eyes: General: appearance normal, both eyes and all related structures Pupils: Equal, round and reactive pupils present Neck: Neck: Yes normal visual inspection, Yes no lymphadenopathy, Yes trachea midline and Yes supple Chest: Chest palpation & inspection: normal inspection of the chest and tenderness (Anterior chest) Resp: Effort & Inspection: normal respiratory effort and able to speak in complete sentences Auscultation: clear to auscultation bilaterally Cardio: Rate: regular rate Rhythm: regular rhythm Heart sounds: S1 normal heart sound present, S2 normal heart sound present and no murmurs GI: Inspection: Yes normal to inspection Palpation (GI): Soft to palpation, nontender and no guarding Auscultation: normal bowel sounds : General: Yes no CVA tenderness Back/Spine/Pelvis: Back: no CVA tenderness Skin: General skin exam: no rashes or lesions noted Neuro: General: oriented to person and oriented to place Cranial nerves: Yes CN's II-XII intact bilaterally and Yes Equal, round and reactive pupils present Cognition (Neuro): normal cognition Motor exam (neuro): 5/5 motor strength present throughout Extrem: General: Yes normal to inspection Psych: Appearance: grossly normal Speech and movement: Normal speech and movement present Affect: normal affect Attitude: cooperative Thought process: Normal thought process present Thought content: Normal thought content present Course Course Course Narrative: 55-year-old female who presents emergency department for evaluation of chest pain, cough and shortness of breath. Patient's vital signs revealed an elevated blood pressure of 148/53 otherwise unremarkable The patient's physical examination did reveal chest wall tenderness. Patient's laboratory evaluation is consistent with her end-stage renal disease with a BUN of 92 and creatinine of 6.0. Patient's potassium was normal at 4.9. [place] [id number] with chronic anemia with an H&H of 9.7 and 30.2. Patient's troponin is elevated at 180 however she has had elevated troponins in the past I do not think that this represents myocardial injury. The patient's chest x-ray revealed no evidence of congestive heart failure or pneumonia, there is some atelectasis. This time I suspect the patient has acute bronchitis, she was started on doxycycline 100 mg twice a day for 10 days. She was given her 1st dose here in the emergency department. The patient was discharged home and she was advised to keep her dialysis appointment today at 4:00 p.m.. Medical Decision Making Lab Data Result diagrams: 02/20/21 08:59 02/20/21 08:59 Labs: Lab Results 02/20/21 02/20/21 02/20/21 Range/Units 08:59 08:59 08:59 WBC 14.9 H (4.8-10.8) X10*3/uL RBC 3.25 L (4.20-5.50) X10*6/uL Hgb 9.7 L (12.0-16.0) g/dl Hct 30.2 L (37-47) % MCV 92.9 (80-98) fL MCH 29.8 (27.0-33.0) pg MCHC 32.1 (31.0-35.0) g/dl RDW 15.6 (11.0-16.0) % Plt Count 312 D (160-400) X10*3/uL MPV 11.0 (9.4-12.3) fL Immature Gran % (Auto) 1.2 H (0.0-0.4) % Neut % (Auto) 64.9 (45-73) % Lymph % (Auto) 22.2 (20-40) % [place] % (Auto) 7.1 (2-11) % Eos % (Auto) 4.5 H (0-4) % Baso % (Auto) 0.1 (0-2) % Lymph # (Auto) 3.3 (1.2-4.9) X10*3/uL [place] # (Auto) 1.1 (0.1-1.2) X10*3/uL Eos # (Auto) 0.7 H (0.0-0.4) X10*3/uL Baso # (Auto) 0.0 (0.0-0.2) X10*3/uL Abs Immat Gran (auto) 0.18 H (0.00-0.03) X10*3/uL Absolute Neuts (auto) 9.7 H (2.0-8.3) X10*3/uL Absolute Nucleated RBC 0.000 (0.0-0.012) X10*3/uL Nucleated RBC % (auto) 0.0 (0.0-0.2) /100WBC Sodium 139 (135-145) mmol/L Potassium 4.9 (3.3-5.1) mmol/L Chloride 100 (96-108) mmol/L Carbon Dioxide 27 (22-29) mmol/L Anion Gap 17 (12-20) BUN 92 H* D (9-16) mg/dL Creatinine 6.06 H* (0.5-1.4) mg/dL Estim Creat Clear Calc 12.1 Estimated GFR 7 Random Glucose 104 (60-115) mg/dL Calcium 7.9 L (8.4-10.2) mg/dL Total Bilirubin 0.3 (0.0-1.0) mg/dL AST 13 D (5-31) U/L ALT 21 (0-31) U/L Alkaline Phosphatase 109 D (39-117) U/L Troponin I High Sens 180.9 H* D (<3.5-17.0) ng/L Total Protein 6.4 L (6.5-8.0) g/dL Albumin 3.4 L (3.5-5.0) g/dL COVID-19 (AYESHA) (Negative) COVID-19 Clin Com 02/20/21 Range/Units 08:59 WBC (4.8-10.8) X10*3/uL RBC (4.20-5.50) X10*6/uL Hgb (12.0-16.0) g/dl Hct (37-47) % MCV (80-98) fL MCH (27.0-33.0) pg MCHC (31.0-35.0) g/dl RDW (11.0-16.0) % Plt Count (160-400) X10*3/uL MPV (9.4-12.3) fL Immature Gran % (Auto) (0.0-0.4) % Neut % (Auto) (45-73) % Lymph % (Auto) (20-40) % [place] % (Auto) (2-11) % Eos % (Auto) (0-4) % Baso % (Auto) (0-2) % Lymph # (Auto) (1.2-4.9) X10*3/uL [place] # (Auto) (0.1-1.2) X10*3/uL Eos # (Auto) (0.0-0.4) X10*3/uL Baso # (Auto) (0.0-0.2) X10*3/uL Abs Immat Gran (auto) (0.00-0.03) X10*3/uL Absolute Neuts (auto) (2.0-8.3) X10*3/uL Absolute Nucleated RBC (0.0-0.012) X10*3/uL Nucleated RBC % (auto) (0.0-0.2) /100WBC Sodium (135-145) mmol/L Potassium (3.3-5.1) mmol/L Chloride (96-108) mmol/L Carbon Dioxide (22-29) mmol/L Anion Gap (12-20) BUN (9-16) mg/dL Creatinine (0.5-1.4) mg/dL Estim Creat Clear Calc Estimated GFR Random Glucose (60-115) mg/dL Calcium (8.4-10.2) mg/dL Total Bilirubin (0.0-1.0) mg/dL AST (5-31) U/L ALT (0-31) U/L Alkaline Phosphatase (39-117) U/L Troponin I High Sens (<3.5-17.0) ng/L Total Protein (6.5-8.0) g/dL Albumin (3.5-5.0) g/dL COVID-19 (AYESHA) Negative (Negative) COVID-19 Clin Com See Note ECG Data Interpretation: 0854: Normal sinus rhythm with rate of 70, normal GA interval, QRS duration and QTC interval, no ST segment elevation, no ST segment depression, no significant T-wave abnormalities, no PACs, no PVCs, poor R-wave progression from V1 through V 3 suggesting old anterior wall TN Discharge Plan Discharge Clinical Impression: Bronchitis Chest pain Qualifiers: Chest pain type: unspecified Qualified Code(s): R07.9 - Chest pain, unspecified Patient Disposition: Home, Self-Care Instructions: Acute Bronchitis (ED) Additional Instructions: Your chest x-ray was unremarkable. There is no signs of pneumonia or fluid in your lungs. Your laboratory evaluation is consistent with your chronic kidney injury. At this time, I believe that she of bronchitis and this is causing her symptoms. Your treated with doxycycline 100 mg orally. Take doxycycline 100 mg twice a day for 10 days. Make sure you keep your dialysis appointment today, do not miss this sense is important to get fluid off your body through dialysis. Follow-up with your doctor in 2 days. Please return to the emergency department if your symptoms get worse or if you develop any symptoms that are concerning to you. Prescriptions: New doxycycline hyclate 100 mg tablet 100 mg PO Q12H 10 Days Qty: 20 RF: 0 No Action (DME) blood-glucose meter [FreeStyle Lite Meter] Kit See Rx Instructions .ROUTE .MEDSUPPLY Qty: 1 RF: 0 (DME) FreeStyle Lite Strips Strip See Rx Instructions .ROUTE .MEDSUPPLY Qty: 100 RF: 11 (DME) lancets [FreeStyle Lancets] 28 gauge misc See Rx Instructions .ROUTE .MEDSUPPLY Qty: 100 RF: 11 (DME) pen needle, diabetic [BD Ultra-Fine Micro Pen Needle] 32 gauge x 1/4 needle See Rx Instructions .ROUTE .MEDSUPPLY Qty: 50 RF: 3 atorvastatin 40 mg tablet 1 tab PO DAILY@1200 RF: 0 omeprazole 40 mg capsule,delayed release(DR/EC) 1 cap PO DAILY RF: 0 aspirin 81 mg tablet,delayed release (DR/EC) 1 tab PO DAILY@1200 RF: 0 levothyroxine 25 mcg tablet 1 tab PO QAM RF: 0 amlodipine 10 mg tablet 1 tab PO QAM RF: 0 lisinopril 10 mg tablet 1 tab PO BEDTIME RF: 0 hydralazine 50 mg tablet 1 tab PO TID@0900,1200,1800 RF: 0 gabapentin 100 mg capsule 200 mg PO BID RF: 0 ergocalciferol (vitamin D2) 1,250 mcg (50,000 unit) capsule 1 cap PO MAR RF: 0 insulin lispro [Humalog KwikPen Insulin] 100 unit/mL insulin pen 20 unit subcut TIDAC RF: 0 Januvia 25 mg tablet 1 tab PO QAM RF: 0 sevelamer carbonate 800 mg tablet 1 tab PO TIDAC RF: 0 melatonin 5 mg tablet 1 tab PO BEDTIME RF: 0 Toujeo Max U-300 SoloStar 300 unit/mL (3 mL) insulin pen 32 unit subcut DAILY RF: 0 prednisone 20 mg tablet 40 mg PO DAILY 4 Days Qty: 8 RF: 0 cefuroxime axetil 250 mg tablet 250 mg PO DAILY 4 Days Qty: 4 RF: 0 benzonatate [Tessalon Perles] 100 mg capsule 100 mg PO TID PRN (Reason: cough) Qty: 20 RF: 0 Print Language: Slovenian
== END 2021-02-20 12:45 | disposition home or self-care (01) ==
PROVIDERS: Emergency Provider Emergency Medicine Emergency Medical Services; PCP Internal Medicine
DX: J40 Bronchitis, not specified as acute or chronic (principal); R07.9 Chest pain, unspecified; I25.10 Atherosclerotic heart disease of native coronary artery without angina pectoris; Z20.822 Contact with and (suspected) exposure to COVID-19; Z79.899 Other long term (current) drug therapy
CPT/HCPCS: 36415; 71046; 80053; 84484; 85025; 87635; 93005; 96374; 99284; 99285; J1885

== ENCOUNTER → 2021-02-26 13:30 | Outpatient (BNVA) | payer MEDICAID, SELFPAY | PROVIDERS: PCP Internal Medicine; Referring Provider Internal Medicine; Visit Provider Nurse Practitioner Family | DX: I13.2 Hypertensive heart and chronic kidney disease with heart failure and with stage 5 chronic kidney disease, or end stage renal disease (principal); N18.6 End stage renal disease; I50.9 Heart failure, unspecified; I25.10 Atherosclerotic heart disease of native coronary artery without angina pectoris | CPT/HCPCS: 99212 ==

== ENCOUNTER → 2021-03-14 12:45 | Outpatient (REF) | payer MEDICAID, SELFPAY | LOC: HO.SL 12:45 | PROVIDERS: PCP Internal Medicine; Visit Provider Internal Medicine Cardiovascular Disease | DX: G47.10 Hypersomnia, unspecified (principal); R09.02 Hypoxemia | CPT/HCPCS: 95806 ==

== ENCOUNTER → 2021-04-04 15:25 | Outpatient (BNVA) | payer MEDICAID, SELFPAY | PROVIDERS: PCP Internal Medicine; Visit Provider Internal Medicine Pulmonary Disease | DX: G47.33 Obstructive sleep apnea (adult) (pediatric) (principal) | CPT/HCPCS: 99202 ==

== ENCOUNTER 2021-04-10 14:09 | Emergency (ER) | payer MEDICAID, SELFPAY ==
--- NOTE | ~2021-04-10 | XR_ITS ---
EXAMINATION: XR CHEST CLINICAL INFORMATION: Chest pain COMPARISON: Chest radiographs 02/20/2021, 02/12/2021, 07/31/2020. TECHNIQUE: Portable upright AP view of the chest was obtained. FINDINGS: There is enlarged cardiopericardial silhouette similar to prior studies. The vascularity is normal. Tapering at the right cardiophrenic angle is stable. There is a linear scar periphery left midlung zone similar to prior exams. There is no air bronchograms. No lobar or segmental airspace consolidation or effusion. No pneumothorax or pleural reaction. XR/XR chest 1V IMPRESSION: -Enlarged cardiopericardial silhouette similar to prior studies. -Linear scar left midlung zone. Old tapering right cardiophrenic angle. -No acute intrathoracic disease.
[2021-04-10 14:40] VITALS: BP 171/55; BP 176/70; PULSE 71; PULSE 78; RESP 17; TEMP 36.6; O2SAT 98; BMI 36.5
--- NOTE | 2021-04-10 14:59 | ECG_ITS ---
Test Reason : chest pain Blood Pressure : / mmHG Vent. Rate : 073 BPM Atrial Rate : 073 BPM P-R Int : 202 ms QRS Dur : 086 ms QT Int : 404 ms P-R-T Axes : 011 074 034 degrees QTc Int : 445 ms Normal sinus rhythm Intra-ventricular conduction delay Nonspecific T wave abnormality Inferior leads Abnormal ECG When compared with ECG of 20-FEB-2021 08:54, No significant change was found Referred By: Kwan Bowers Electronically Signed By:YOGI SU MD
--- NOTE | 2021-04-10 15:01 | ED.CHESTPAIN ---
HPI - Chest Pain General Chief Complaint: Chest Pain Stated Complaint: CHEST PAIN X'S 1 WEEK,FROM MD OFFICE Time Seen by Provider: 04/10/21 14:35 Source: patient Limitations: no limitations History of Present Illness HPI narrative: This is a 56-year-old female with history of hypertension and diabetes, who complains of sharp pain underneath her left breast for about a week. Patient states the pain is constant. She denies any shortness of breath. She denies swelling or pain in her legs or feet. She denies nausea. The pain is nonradiating. The pain is not worse with exertion.. Pain is sharp and localized, not worsened with taking a deep breath. The patient notes that she had a fall about a week ago and has had pain in her left upper chest and left upper back as well as in her leg for about a week. Related Data Home Medications Medication Instructions Recorded Confirmed aspirin 81 mg tablet,delayed 1 tab PO DAILY@1200 02/12/21 02/27/21 release ergocalciferol (vitamin D2) 1,250 1 cap PO MAR 02/12/21 02/27/21 mcg (50,000 unit) capsule gabapentin 100 mg capsule 200 mg PO BID 02/12/21 02/27/21 hydralazine 50 mg tablet 1 tab PO TID@0900,1200,1800 02/12/21 02/27/21 insulin lispro 100 unit/mL 20 unit SUBCUT TIDAC 02/12/21 02/27/21 subcutaneous pen (Humalog KwikPen (U-100) Insulin) levothyroxine 25 mcg tablet 1 tab PO QAM 02/12/21 02/27/21 melatonin 5 mg tablet 1 tab PO BEDTIME 02/12/21 02/27/21 sitagliptin 25 mg tablet (Januvia) 1 tab PO QAM 02/12/21 02/27/21 amlodipine 10 mg tablet 10 mg PO QAM 02/26/21 02/27/21 atorvastatin 40 mg tablet 40 mg PO DAILY@1200 02/26/21 02/27/21 cefuroxime axetil 250 mg tablet 250 mg PO DAILY tab 02/26/21 02/27/21 lisinopril 10 mg tablet 10 mg PO BEDTIME 02/26/21 02/27/21 omeprazole 40 mg capsule,delayed 40 mg PO DAILY 02/26/21 02/27/21 release sevelamer carbonate 800 mg tablet 800 mg PO TIDAC tab 02/26/21 02/27/21 Previous Rx's Medication Instructions Recorded blood sugar diagnostic (FreeStyle #100 ea 06/27/20 Lite Strips) blood-glucose meter (FreeStyle #1 ea 06/27/20 Lite Meter) lancets 28 gauge (FreeStyle #100 ea 06/27/20 Lancets) benzonatate 100 mg capsule 100 mg PO TID PRN #20 cap 02/14/21 (Tesyumi Good) peg 3350 240 gram-electrolytes 240 ml PO Q10M #4000 ml 02/21/21 22.72 gram-6.72 g-5.84 g powdr for soln insulin glargine U-300 conc 300 32 unit SUBCUT DAILY 90 Days #12 ml 03/08/21 unit/mL (3 mL) subcutaneous pen (Toujeo Max U-300 SoloStar) pen needle, diabetic 32 gauge x #100 ea 03/12/2105/28 (BD Ultra-Fine Micro Pen Needle) tramadol 50 mg tablet 50 - 100 mg PO BID PRN #14 tab 04/10/21 Allergies Allergy/AdvReac Type Severity Reaction Status Date / Time No Known Allergies Allergy Verified 04/04/21 15:29 [No Known Allergies*] Review of Systems Review of Systems: Yes all other systems are reviewed and are negative Constitutional: Constitutional: Reports as per HPI and Denies fever(s) Eyes: Eyes: Reports as per HPI and Reports no additional eye complaints ENT: Reports system reviewed and no additional complaints, except as documented, Reports as per HPI, Denies nasal congestion, Denies nasal discharge and Denies sore throat Cardiovascular: Cardiovascular: Reports as per HPI, Reports chest pain (Localized under left breast), Denies chest pain with activity, Denies leg edema and Denies dyspnea Respiratory: Respiratory: Reports as per HPI, Denies cough and Denies dyspnea Gastrointestinal: Gastrointestinal: Reports as per HPI, Denies abdominal pain, Denies diarrhea, Denies nausea and Denies vomiting Genitourinary: Genitourinary: Reports as per HPI, Denies hematuria, Denies urinary frequency and Denies dysuria Musculoskeletal: Musculoskeletal: Reports no additional musculoskeletal complaints and Denies numbness Integumentary/Breasts: Skin/Breast: Reports as per HPI and Denies rash Neurologic: Reports as per HPI, Denies focal weakness, Denies numbness and Denies Sensory deficit (Neuro) Psychiatric: Psychiatric: Reports no additional psychiatric complaints and Reports as per HPI Endocrine: Endocrine: Reports no additional endocrine complaints and Reports as per HPI Hematologic/Lymphatic: Hematologic/Lymphatic: Reports no additional hematologic/lymphatic complaints, Reports as per HPI and Reports other (No peripheral edema) [facility] Past Medical History Medical History AV fistula CAD (coronary artery disease) CHF (congestive heart failure) Dialysis patient ESRD (end stage renal disease) ESRD needing dialysis GERD (gastroesophageal reflux disease) HLD (hyperlipidemia) HTN (hypertension) Normocytic anemia Obesity due to excess calories Renal failure (ARF), acute on chronic T2DM (type 2 diabetes mellitus) Thyroid disease Surgical History History of kidney surgery Hx of bone graft Hx of cholecystectomy Family History Family History Father CVD (cardiovascular disease) Diabetes Mother Diabetes Sister Stomach cancer Social History Social History Household Members: Spouse Housing: House Do you presently have visiting nurse or other home services: No Alcohol intake: never Patient Tobacco Use Status: Never used Tobacco Advance Directives: Yes Advance Directives on File: Yes Advance Directives Date on File: 02/15/21 service: No Current occupational status: disabled Physical Exam Vital Signs: Vital Signs: Last Vital Signs Temp 97.8 F 04/10/21 14:40 Pulse 70 04/10/21 16:50 Resp 16 04/10/21 16:50 BP 145/57 H 04/10/21 16:50 Pulse Ox 98 04/10/21 16:50 Body Mass Index 36.5 Const: Other: Moderately obese General: cooperative, no acute distress and alert Orientation/consciousness: patient oriented x3 HENMT: Head: Yes normal to inspection Eyes: General: appearance normal, both eyes and all related structures Eyelids: Yes eyelids normal Conjunctivae: conjunctivae normal Pupils: Equal, round and reactive pupils present Neck: Neck: Yes normal visual inspection and Yes supple Chest: Other: Tender to palpation under left breast area, also left upper quarter Chest palpation & inspection: normal inspection of the chest Resp: Effort & Inspection: normal respiratory effort Auscultation: clear to auscultation bilaterally Cardio: Rate: regular rate Rhythm: regular rhythm Heart sounds: S1 normal heart sound present, S2 normal heart sound present, no gallops, no murmurs and no rubs GI: Palpation (GI): Soft to palpation, nontender and Other GI palpation findings present (Non-distended) Auscultation: normal bowel sounds Skin: General skin exam: no rashes or lesions noted Neuro: General: patient oriented x3, no focal motor deficits and CN's II-XI intact bilaterally Cranial nerves: Yes Equal, round and reactive pupils present Cognition (Neuro): normal cognition Motor exam (neuro): 5/5 motor strength present throughout Sensory Exam: No Sensory deficit (Neuro) Extrem: General: Yes normal to inspection and Yes no pedal edema Psych: Appearance: grossly normal Affect: normal affect MDM - Chest Pain MDM Narrative Medical decision making narrative: Patient with localized pain below her left breast as well as in the left upper back. Patient had a recent fall. Patient was sent in due to poor R-wave progression her EKG however this is not an acute finding. Patient has mildly elevated troponin however this is baseline for her, given her chronic kidney failure, for which she takes dialysis. Last dialysis was Thursday-she missed today due to having to come to the ED. Oxygen saturation is normal, chest x-ray unremarkable, potassium borderline elevated patient is safe for outpatient follow-up Lab Data Attestation: I reviewed the patient's lab results. Result diagrams: 04/10/21 16:56 04/10/21 16:56 Labs: Lab Results 04/10/21 04/10/21 04/10/21 Range/Units 16:56 16:56 16:56 WBC 9.8 (4.8-10.8) X10*3/uL RBC 3.90 L (4.20-5.50) X10*6/uL Hgb 11.5 L (12.0-16.0) g/dl Hct 35.3 L (37.0-47.0) % MCV 90.5 (80.0-98.0) fL MCH 29.5 (27.0-33.0) pg MCHC 32.6 (31.0-35.0) g/dl RDW 14.6 (11.0-16.0) % Plt Count 166 (160-400) X10*3/uL MPV 11.0 (9.4-12.3) fL Immature Gran % (Auto) 0.3 (0.0-0.4) % Neut % (Auto) 56.0 (45-73) % Lymph % (Auto) 19.6 L (20-40) % [place] % (Auto) 5.0 (2-11) % Eos % (Auto) 18.5 H (0-4) % Baso % (Auto) 0.6 (0-2) % Lymph # (Auto) 1.9 (1.2-4.9) X10*3/uL [place] # (Auto) 0.5 (0.1-1.2) X10*3/uL Eos # (Auto) 1.8 H (0.0-0.4) X10*3/uL Baso # (Auto) 0.1 (0.0-0.2) X10*3/uL Abs Immat Gran (auto) 0.03 (0.00-0.03) X10*3/uL Absolute Neuts (auto) 5.5 (2.0-8.3) x10*3/uL Absolute Nucleated RBC 0.000 (0.0-0.012) X10*3/uL Nucleated RBC % (auto) 0.0 (0.0-0.2) /100WBC Sodium 138 (135-145) mmol/L Potassium 5.3 H (3.3-5.1) mmol/L Chloride 104 (96-108) mmol/L Carbon Dioxide 25 (22-29) mmol/L Anion Gap 14 (12-20) BUN 42 H D (9-16) mg/dL Creatinine 5.48 H* (0.5-1.4) mg/dL Estim Creat Clear Calc 12.6 Estimated GFR 8 Random Glucose 179 H (60-115) mg/dL Calcium 9.1 D (8.4-10.2) mg/dL Troponin I High Sens 164.2 H* (<3.5-17.0) ng/L Imaging Data Chest x-ray: Radiologist's impression: IMPRESSION: -Enlarged cardiopericardial silhouette similar to prior studies. -Linear scar left midlung zone. Old tapering right cardiophrenic angle. -No acute intrathoracic disease. ECG Data ECG #1: Attestation: I personally reviewed and interpreted this ECG as follows: ECG interpretation date: 04/10/21 ECG interpretation time: 15:13 Interpretation: Sinus rhythm with a rate of 73. Delayed R-wave progression with Q-waves in leads V1 through V4 consistent with an old anterior infarct. Some baseline artifact in the limb leads, possible T-wave inversion in lead 3. No ST elevation or depression. EKG appears unchanged from 1 dated 02/20/2021 Discharge Plan Discharge Clinical Impression: Acute chest wall pain Patient Disposition: Home, Self-Care Instructions: Chest Wall Pain (ED) Additional Instructions: Use ibuprofen for pain. You can also use tramadol as prescribed. Follow-up with primary care physician and kidney doctor-call tomorrow to see if you can get and dialysis tomorrow, otherwise make sure you go on Thursday. Return for any new or worsened symptoms. Prescriptions: New tramadol 50 mg tablet 50 - 100 mg PO BID PRN (Reason: pain) Qty: 14 RF: 0 No Action (DME) blood-glucose meter [FreeStyle Lite Meter] Kit See Rx Instructions .ROUTE .MEDSUPPLY Qty: 1 RF: 0 (DME) FreeStyle Lite Strips Strip See Rx Instructions .ROUTE .MEDSUPPLY Qty: 100 RF: 11 (DME) lancets [FreeStyle Lancets] 28 gauge misc See Rx Instructions .ROUTE .MEDSUPPLY Qty: 100 RF: 11 peg 3350-electrolytes 240-22.72-6.72 -5.84 gram recon soln 240 ml PO Q10M Qty: 4000 RF: 0 Toujeo Max U-300 SoloStar 300 unit/mL (3 mL) insulin pen 32 unit subcut DAILY 90 Days Qty: 12 RF: 3 (DME) pen needle, diabetic [BD Ultra-Fine Micro Pen Needle] 32 gauge x 1/4 needle See Rx Instructions .ROUTE .MEDSUPPLY Qty: 100 RF: 3 aspirin 81 mg tablet,delayed release (DR/EC) 1 tab PO DAILY@1200 RF: 0 levothyroxine 25 mcg tablet 1 tab PO QAM RF: 0 hydralazine 50 mg tablet 1 tab PO TID@0900,1200,1800 RF: 0 gabapentin 100 mg capsule 200 mg PO BID RF: 0 ergocalciferol (vitamin D2) 1,250 mcg (50,000 unit) capsule 1 cap PO MAR RF: 0 insulin lispro [Humalog KwikPen Insulin] 100 unit/mL insulin pen 20 unit subcut TIDAC RF: 0 Januvia 25 mg tablet 1 tab PO QAM RF: 0 melatonin 5 mg tablet 1 tab PO BEDTIME RF: 0 benzonatate [Tessalon Perles] 100 mg capsule 100 mg PO TID PRN (Reason: cough) Qty: 20 RF: 0 amlodipine 10 mg tablet 10 mg PO QAM RF: 0 atorvastatin 40 mg tablet 40 mg PO DAILY@1200 RF: 0 lisinopril 10 mg tablet 10 mg PO BEDTIME RF: 0 omeprazole 40 mg capsule,delayed release(DR/EC) 40 mg PO DAILY RF: 0 sevelamer carbonate 800 mg tablet 800 mg PO TIDAC RF: 0 cefuroxime axetil 250 mg tablet 250 mg PO DAILY RF: 0
[2021-04-10] MEDS: Aspirin 81 MG TAB.CHEW 324 MG PO (15:30)
[2021-04-10 16:50] VITALS: BP 145/57; PULSE 70; RESP 16; O2SAT 98
[2021-04-10 17:02] LABS: Basophils Absolute Auto 0.1 X10*3/uL (0.0-0.2); Basophils Percent Auto 0.6 % (0-2); Eosinophils Absolute Auto 1.8 X10*3/uL (0.0-0.4); Eosinophils Percent Auto 18.5 % (0-4); Hematocrit 35.3 % (37.0-47.0); Hemoglobin 11.5 g/dl (12.0-16.0); Imm Gran Abs Auto 0.03 X10*3/uL (0.00-0.03); Imm Gran Pct Auto 0.3 % (0.0-0.4); Lymphocytes Absolute Auto 1.9 X10*3/uL (1.2-4.9); Lymphocytes Percent Auto 19.6 % (20-40); Mean Corpuscular HGB Conc 32.6 g/dl (31.0-35.0); Mean Corpuscular Hemoglobin 29.5 pg (27.0-33.0); Mean Corpuscular Volume 90.5 fL (80.0-98.0); Monocytes Absolute Auto 0.5 X10*3/uL (0.1-1.2); Neutrophils Absolute Auto 5.5 x10*3/uL (2.0-8.3); Platelet Count 166 X10*3/uL (160-400); Red Cell Distribution Width 14.6 % (11.0-16.0); White Blood Count 9.8 X10*3/uL (4.8-10.8)
[2021-04-10 17:27] LABS: Anion Gap 14 (12-20); Blood Urea Nitrogen 42 mg/dL (9-16); Calcium 9.1 mg/dL (8.4-10.2); Carbon Dioxide 25 mmol/L (22-29); Chloride 104 mmol/L (96-108); Creatinine Clr Calc Pharmacy 12.6; Estimated Glomerular Filt Rate 8; Glucose Random 179 mg/dL (60-115); Potassium 5.3 mmol/L (3.3-5.1); Sodium 138 mmol/L (135-145)
[2021-04-10 17:28] LABS: Troponin-I High Sensitivity 164.2 ng/L (<3.5-17.0)
[2021-04-10 18:20] LABS: MANUAL DIFF FLAG NO
== END 2021-04-10 18:38 | disposition home or self-care (01) ==
PROVIDERS: Emergency Provider Emergency Medicine; PCP Internal Medicine
DX: R07.89 Other chest pain (principal); I13.2 Hypertensive heart and chronic kidney disease with heart failure and with stage 5 chronic kidney disease, or end stage renal disease; I50.9 Heart failure, unspecified; N18.6 End stage renal disease; E11.22 Type 2 diabetes mellitus with diabetic chronic kidney disease; Z99.2 Dependence on renal dialysis
CPT/HCPCS: 36415; 71045; 80048; 84484; 85025; 93005; 99284

== ENCOUNTER → 2021-04-12 09:03 | Outpatient (REF) | payer MEDICAID, SELFPAY ==
--- NOTE | ~2021-04-12 | NM_ITS ---
Lexiscan Myocardial perfusion study Indication: Congestive heart failure, assess for coronary disease and ischemia Technique: The patient was brought in for a Lexiscan perfusion study on 04/12/2021 and was injected 0.4 mg of Lexiscan intravenously. Within a minute of this injection 30 mCi of sestamibi was given intravenously. Images were obtained using the SPECT gamma camera interlaced with the gating device. Images were obtained in supine position. Resting perfusion study was performed on 04/15/2021. Patient was administered 30 mCi of sestamibi intravenously at rest. Images were then obtained in supine position. Total DLP 202mGy-cm. Images were processed with the software and compared side to side in short axis, horizontal long axis and vertical long axis views. Findings: Raw acquisition was reviewed. Arms by the patient's side. The stress perfusion study showed markedly reduced tracer uptake in the basal to mid inferolateral wall and absent tracer uptake in the distal part of inferolateral wall. There is significant improvement with CT attenuation correction and hence could be all diaphragmatic attenuation artifact. The gated study shows normal LV systolic function with calculated LVEF of 59%. LV cavity is normal in size. The gated study shows diminished thickening and contractility in the distal part of inferolateral wall. Resting study shows diminished tracer uptake in the inferolateral wall in the mid to distal portions. In the CT attenuation corrected images, there is markedly reduced tracer uptake in the mid to distal lateral wall. Gating at rest reveals diminished thickening in the lateral wall with LVEF of 49%. The findings are consistent with fixed defect in the inferolateral wall; there is improvement during CT attenuation correction only in the stress acquisition. NM/NM peyton perf SPECT rest & str Impression: 1. Myocardial perfusion imaging study shows possible infarct versus diaphragmatic attenuation artifact. Study quality somewhat suboptimal. 2. Gated LVEF is 59% during stress and 49% during rest. 3. Transient ischemic dilatation not present. EKG component of the test reported separately.
--- NOTE | 2021-04-12 09:07 | CA_ITS ---
Acquisition Time: 2021-04-12 09:32:07 Total Exercise Time: 00:02:00 Test Indications: Ischemia Evaluation Medications: Protocol: LEXISCAN Max HR: 093 BPM 56% of Pred: 165 BPM Max BP: 130/070 mmHG Max Work Load: 1.0 METS Pharmacological stress test with Lexiscan injection, while sitting and kicking her legs, without anginal symptoms, without arrythmia, with normotensive response to injection, with nondiagnostic EKG for ischemia. Nuclear images pending. Test reviewed with Dr Maddox. Referred By: Sy Ashford Overread By: PADMINI MOSLEY
== END ==
LOC: HO.CARD 09:03
PROVIDERS: Visit Provider Internal Medicine Cardiovascular Disease
DX: I25.10 Atherosclerotic heart disease of native coronary artery without angina pectoris (principal); I50.23 Acute on chronic systolic (congestive) heart failure; I48.92 Unspecified atrial flutter; E87.70 Fluid overload, unspecified; J21.0 Acute bronchiolitis due to respiratory syncytial virus
CPT/HCPCS: 78452; 93017; A9500; J0280; J2785

== ENCOUNTER → 2021-06-13 13:11 | Outpatient (BNVA) | payer MEDICAID, SELFPAY | PROVIDERS: PCP Internal Medicine; Visit Provider Nurse Practitioner Gerontology | DX: E11.65 Type 2 diabetes mellitus with hyperglycemia (principal); E11.22 Type 2 diabetes mellitus with diabetic chronic kidney disease; I12.0 Hypertensive chronic kidney disease with stage 5 chronic kidney disease or end stage renal disease; N18.6 End stage renal disease; E78.5 Hyperlipidemia, unspecified; Z79.4 Long term (current) use of insulin | CPT/HCPCS: 82947; 83036; 99212 ==

== ENCOUNTER 2021-06-27 12:27 | Observation (INO) | payer MEDICAID, SELFPAY ==
--- NOTE | 2021-06-27 | ECG_ITS ---
Test Reason : Palpitations Blood Pressure : / mmHG Vent. Rate : 112 BPM Atrial Rate : 264 BPM P-R Int : 000 ms QRS Dur : 088 ms QT Int : 344 ms P-R-T Axes : 000 078 -03 degrees QTc Int : 469 ms Atrial flutter with variable A-V block Anterior infarct (cited on or before 27-JUN-2021) Abnormal ECG When compared with ECG of 10-APR-2021 15:10, Atrial flutter has replaced Sinus rhythm Vent. rate has increased BY 39 BPM Referred By: Generic ED Physician Electronically Signed By:CHI URIBE
--- NOTE | ~2021-06-27 | XR_ITS ---
EXAMINATION: XR CHEST CLINICAL INFORMATION: Chest pain and palpitations. Rule out pneumonia. COMPARISON: Chest x-ray 04/10/2021 TECHNIQUE: Frontal view of the chest was obtained. FINDINGS: Enlarged cardiac silhouette. Lung are mildly hypoinflated. There is no lobar consolidation present. Similar linear opacity at the left midlung likely product sales representative of scarring. There is no pleural effusion or pneumothorax. XR/XR chest 1V IMPRESSION: Similar cardiomegaly without acute pulmonary pathology.
[2021-06-27 12:39] VITALS: BP 145/82; BP 145/84; PULSE 109; PULSE 110; RESP 20; TEMP 36.9; O2SAT 98; BMI 36.3
[2021-06-27 12:50] LABS: Glucose, Whole Blood 406 mg/dL (60-115)
--- NOTE | 2021-06-27 13:20 | ED_ITS ---
HPI - General Adult General Chief complaint: General Medical Stated complaint: HIGH BLOOD SUGAR 500 PER EMS Time Seen by Provider: 06/27/21 12:54 Source: patient Mode of arrival: EMS Limitations: language barrier (Filipino speaking only, lang interpreter used) History of Present Illness HPI narrative: 56-year-old female who presents emergency department for evaluation of new onset atrial flutter. The patient went to a routine is visit for preop evaluation for eye surgery. The patient was found to be in atrial flutter which is a new diagnosis for her. She was also found to have an elevated glucose of 500. The patient told me that over the past 2 days she has been feeling ?tachycardia?. She states that she would get an occasional sharp pain and she points to the sternal area of her chest. She can not quantify how long this would last but she states that it was mild in intensity pain . She also had some right sided neck pain but no pain radiating to her jaw, back or arms. She states that she always feels short of breath but denied any increased from her baseline, she denied dyspnea on exertion. She denied fever, chills, nausea, vomiting, diarrhea. The patient does have end-stage renal disease and is dialyzed on Thursday, Thursday and Fridays . She states she was dialyzed on Thursday (1 day prior) and had a full dialysis without any difficulties. The patient states that the tachycardia that she was experiencing is been new however she believes that she had tachycardia when she was in [place] but has not experienced any symptoms in a long time. Related Data Home Medications Medication Instructions Recorded Confirmed aspirin 81 mg tablet,delayed 1 tab PO DAILY@1200 02/12/21 06/13/21 release ergocalciferol (vitamin D2) 1 cap PO MAR 02/12/21 02/27/21 1,250 mcg (50,000 unit) capsule gabapentin 100 mg capsule 200 mg PO BID 02/12/21 06/13/21 hydralazine 50 mg tablet 1 tab PO TID@0900,1200,1800 02/12/21 02/27/21 levothyroxine 25 mcg tablet 1 tab PO QAM 02/12/21 06/13/21 melatonin 5 mg tablet 1 tab PO BEDTIME 02/12/21 02/27/21 sitagliptin 25 mg tablet 1 tab PO QAM 02/12/21 06/13/21 (Januvia) amlodipine 10 mg tablet 10 mg PO QAM 02/26/21 06/13/21 atorvastatin 40 mg tablet 40 mg PO DAILY@1200 02/26/21 06/13/21 cefuroxime axetil 250 mg 250 mg PO DAILY tab 02/26/21 02/27/21 tablet lisinopril 10 mg tablet 10 mg PO BEDTIME 02/26/21 06/13/21 omeprazole 40 mg 40 mg PO DAILY 02/26/21 02/27/21 capsule,delayed release sevelamer carbonate 800 mg 800 mg PO TIDAC tab 02/26/21 02/27/21 tablet Previous Rx's Medication Instructions Recorded benzonatate 100 mg capsule 100 mg PO TID PRN #20 cap 02/14/21 (Anup Good) peg 3350 240 gram-electrolytes 240 ml PO Q10M #4000 ml 02/21/21 22.72 gram-6.72 g-5.84 g powdr for soln insulin glargine U-300 conc 300 32 unit (0.1067 mL) SUBCUT DAILY 03/08/21 unit/mL (3 mL) subcutaneous pen 90 Days #12 ml (Toujeo Max U-300 SoloStar) tramadol 50 mg tablet 50 - 100 mg PO BID PRN #14 tab 04/10/21 blood-glucose meter (FreeStyle #1 ea 04/24/21 Lite Meter) blood sugar diagnostic (FreeStyle #100 ea 05/29/21 Lite Strips) lancets 28 gauge (FreeStyle #100 ea 05/29/21 Lancets) insulin lispro 100 unit/mL 4 - 14 unit (0.04 - 0.14 mL) 06/13/21 subcutaneous pen (Humalog KwikPen SUBCUT TIDAC #30 ml (U-100) Insulin) pen needle, diabetic 32 gauge x #150 ea 06/13/2105/28 (BD Ultra-Fine Micro Pen Needle) Allergies Allergy/AdvReac Type Severity Reaction Status Date / Time No Known Allergies Allergy Verified 06/13/21 13:48 [No Known Allergies*] Review of Systems Verdana 4l Review of Systems: Yes all other systems are reviewed and Verdana 4d are negative [facility] Past Medical History [facility] Narrative: Social history: She denies tobacco, alcohol and drug use. Medical History Asthma AV fistula CAD (coronary artery disease) CHF (congestive heart failure) Chronic cough Chronic low back pain without sciatica Depression Dialysis patient Dysphonia Dyspnea on exertion ESRD (end stage renal disease) ESRD needing dialysis GERD (gastroesophageal reflux disease) HLD (hyperlipidemia) HTN (hypertension) Kidney stones Normocytic anemia Obesity due to excess calories Osteoarthritis of both knees Renal failure (ARF), acute on chronic T2DM (type 2 diabetes mellitus) Thyroid disease Unstable gait Urinary frequency Surgical History History of kidney surgery Hx of bone graft Hx of cholecystectomy Family History Family History Father CVD (cardiovascular disease) Diabetes Mother Diabetes Sister Stomach cancer Social History Social History Household Members: Spouse Housing: House Do you presently have visiting nurse or other home services: No Alcohol intake: never Patient Tobacco Use Status: Never used Tobacco Use of substances other than those prescribed or required for medical reasons: No Advance Directives: Yes Advance Directives on File: Yes Advance Directives Date on File: 02/15/21 Patient : No service: No Current occupational status: disabled Physical Exam Verdana 4l Vital Signs: Verdana 4d Verdana 4d Vital Signs: Verdana 4d Verdana 4Bd Last Vital Signs Verdana 4d [employer] Cutter New 4d [employer] Cutter New 4d Temp 98.4 F 06/27/21 14:06 [employer]rics And [employer] Cutter New 4d Pulse 110 H 06/27/21 14:06 [employer]rics And [employer] Cutter New 4d Resp 15 06/27/21 14:06 BP 156/76 H 06/27/21 14:06 Pulse Ox 98 06/27/21 14:06 BMI result Body Mass Index 36.3 Const: General: cooperative and no acute distress Orientation/consciousness: oriented to person and oriented to place Limitations: no limitations HENMT: Head: Yes normal to inspection, Yes normocephalic and Yes atraumatic Ears: external ears normal General nose exam: Normal external nose present Face and sinus: Yes normal facial exam Mouth: Normal oral and palatal mucosa present Throat: Yes posterior oropharynx normal Eyes: General: appearance normal, both eyes and all related structures Pupils: Equal, round and reactive pupils present Neck: Neck: Yes normal visual inspection, Yes no lymphadenopathy, Yes trachea midline and Yes supple Chest: Chest palpation & inspection: normal inspection of the chest and normal palpation of entire chest wall Resp: Effort & Inspection: normal respiratory effort and able to speak in complete sentences Auscultation: clear to auscultation bilaterally Cardio: Rate: tachycardic Rhythm: regular rhythm Heart sounds: S1 normal heart sound present, S2 normal heart sound present and no murmurs GI: Inspection: Yes normal to inspection Palpation (GI): Soft to palpation, nontender and no guarding Auscultation: normal bowel sounds : General: Yes no CVA tenderness Back/Spine/Pelvis: Back: no CVA tenderness Skin: General skin exam: no rashes or lesions noted Neuro: General: oriented to person and oriented to place Cranial nerves: Yes CN's II-XII intact bilaterally and Yes Equal, round and reactive pupils present Cognition (Neuro): normal cognition Motor exam (neuro): 5/5 motor strength present throughout Extrem: General: Yes normal to inspection Psych: Appearance: grossly normal Speech and movement: Normal speech and movement present Affect: normal affect Attitude: cooperative Thought process: Normal thought process present Thought content: Normal thought content present Course Course Course Narrative: 56-year-old female who was sent from her doctor's office for evaluation of new onset atrial flutter and an elevated glucose of 500. The patient has been experiencing some tachycardia over the past 2 days with intermittent sternal chest pain and intermittent right neck pain. Patient does have diabetes and she states that she took her normal dose of NovoLog this morning. Vital signs revealed a blood pressure of 145/82 with a heart rate of 110. O2 saturation was 98% on room air. Physical examination did reveal tachycardia otherwise was unremarkable. Twelve lead EKG then in the emergency department revealed atrial flutter with a rate 112, poor R-wave progression from V1 to V3. The atrial flutter is new and the poor R-wave for patient present on an EKG dated 04/10/2021. I order a laboratory evaluation to include CBC, CMP, troponin, PT/INR, PTT. Chest x-ray will also be obtained. Patient was ordered to get a bolus of normal saline 500 cc IV for her elevated glucose and 5 units of regular insulin IV push. We will repeat a point of care glucose 1 hour after the insulin and fluid bolus. 1527: Laboratory evaluation: CBC revealed anemia with an H&H of 9.8 and 30.1, this is chronic related to her end-stage renal disease. Potassium was normal at 4.3. Troponin was elevated at 213.2. She has had similar elevations in the past this will be repeated at 3:30 p.m.. Patient's TSH was normal. I will discuss admission for new onset atrial fibrillation/flutter with the covering hospitalist. Patient's point of care glucose did improve after a 500 cc bolus of normal saline and 5 units of regular insulin. Her point of care glucose was 291. 1546: I did discuss the patient's presentation with the covering hospitalist, Dr. Rehman and the patient will be admitted for further management Medical Decision Making Lab Data Result diagrams: 06/27/21 13:34 06/27/21 13:34 Labs: Lab Results 06/27/21 06/27/21 06/27/21 Range/Units 12:45 13:34 13:34 WBC 8.5 (4.8-10.8) X10*3/uL RBC 3.28 L (4.20-5.50) X10*6/uL Hgb 9.8 L (12.0-16.0) g/dl Hct 30.1 L (37.0-47.0) % MCV 91.8 (80.0-98.0) fL MCH 29.9 (27.0-33.0) pg MCHC 32.6 (31.0-35.0) g/dl RDW 14.8 (11.0-16.0) % Plt Count 218 D (160-400) X10*3/uL MPV 11.7 (9.4-12.3) fL Immature Gran % (Auto) 0.9 H (0.0-0.4) % Neut % (Auto) 67.6 (45-73) % Lymph % (Auto) 15.2 L (20-40) % [place] % (Auto) 7.8 (2-11) % Eos % (Auto) 7.9 H (0-4) % Baso % (Auto) 0.6 (0-2) % Lymph # (Auto) 1.3 (1.2-4.9) X10*3/uL [place] # (Auto) 0.7 (0.1-1.2) X10*3/uL Eos # (Auto) 0.7 H (0.0-0.4) X10*3/uL Baso # (Auto) 0.1 (0.0-0.2) X10*3/uL Abs Immat Gran (auto) 0.08 H (0.00-0.03) X10*3/uL Absolute Neuts (auto) 5.7 (2.0-8.3) x10*3/uL Absolute Nucleated RBC 0.000 (0.0-0.012) X10*3/uL Nucleated RBC % (auto) 0.0 (0.0-0.2) /100WBC PT 10.7 (9.9-13.0) SEC INR 0.9 (0.9-1.1) APTT 29.8 (24.1-38.0) SEC Sodium (135-145) mmol/L Potassium (3.3-5.1) mmol/L Chloride (96-108) mmol/L Carbon Dioxide (22-29) mmol/L Anion Gap (12-20) BUN (9-16) mg/dL Creatinine (0.5-1.4) mg/dL Estim Creat Clear Calc Estimated GFR POC Glucose 406 H* (60-115) mg/dL Random Glucose (60-115) mg/dL Calcium (8.4-10.2) mg/dL Total Bilirubin (0.0-1.0) mg/dL AST (5-31) U/L ALT (0-31) U/L Alkaline Phosphatase (39-117) U/L Troponin I High Sens (<3.5-17.0) ng/L Total Protein (6.5-8.0) g/dL Albumin (3.5-5.0) g/dL Lipase (8-78) U/L TSH (0.32-4.0) uIU/mL COVID-19 (AYESHA) (Negative) COVID-19 Clin Com 06/27/21 06/27/21 06/27/21 Range/Units 13:34 13:34 13:34 WBC (4.8-10.8) X10*3/uL RBC (4.20-5.50) X10*6/uL Hgb (12.0-16.0) g/dl Hct (37.0-47.0) % MCV (80.0-98.0) fL MCH (27.0-33.0) pg MCHC (31.0-35.0) g/dl RDW (11.0-16.0) % Plt Count (160-400) X10*3/uL MPV (9.4-12.3) fL Immature Gran % (Auto) (0.0-0.4) % Neut % (Auto) (45-73) % Lymph % (Auto) (20-40) % Vermilion % (Auto) (2-11) % Eos % (Auto) (0-4) % Baso % (Auto) (0-2) % Lymph # (Auto) (1.2-4.9) X10*3/uL [place] # (Auto) (0.1-1.2) X10*3/uL Eos # (Auto) (0.0-0.4) X10*3/uL Baso # (Auto) (0.0-0.2) X10*3/uL Abs Immat Gran (auto) (0.00-0.03) X10*3/uL Absolute Neuts (auto) (2.0-8.3) x10*3/uL Absolute Nucleated RBC (0.0-0.012) X10*3/uL Nucleated RBC % (auto) (0.0-0.2) /100WBC PT (9.9-13.0) SEC INR (0.9-1.1) APTT (24.1-38.0) SEC Sodium 138 (135-145) mmol/L Potassium 4.3 (3.3-5.1) mmol/L Chloride 99 (96-108) mmol/L Carbon Dioxide 29 (22-29) mmol/L Anion Gap 14 (12-20) BUN 46 H (9-16) mg/dL Creatinine 5.06 H* (0.5-1.4) mg/dL Estim Creat Clear Calc 13.6 Estimated GFR 9 POC Glucose (60-115) mg/dL Random Glucose 423 H* (60-115) mg/dL Calcium 9.6 (8.4-10.2) mg/dL Total Bilirubin 0.6 (0.0-1.0) mg/dL AST 9 (5-31) U/L ALT 10 (0-31) U/L Alkaline Phosphatase 128 H (39-117) U/L Troponin I High Sens 213.2 H* (<3.5-17.0) ng/L Total Protein 7.2 (6.5-8.0) g/dL Albumin 3.7 (3.5-5.0) g/dL Lipase 34 (8-78) U/L TSH 3.10 (0.32-4.0) uIU/mL COVID-19 (AYESHA) Negative (Negative) COVID-19 Clin Com See Note 06/27/21 Range/Units 15:03 WBC (4.8-10.8) X10*3/uL RBC (4.20-5.50) X10*6/uL Hgb (12.0-16.0) g/dl Hct (37.0-47.0) % MCV (80.0-98.0) fL MCH (27.0-33.0) pg MCHC (31.0-35.0) g/dl RDW (11.0-16.0) % Plt Count (160-400) X10*3/uL MPV (9.4-12.3) fL Immature Gran % (Auto) (0.0-0.4) % Neut % (Auto) (45-73) % Lymph % (Auto) (20-40) % Vermilion % (Auto) (2-11) % Eos % (Auto) (0-4) % Baso % (Auto) (0-2) % Lymph # (Auto) (1.2-4.9) X10*3/uL [place] # (Auto) (0.1-1.2) X10*3/uL Eos # (Auto) (0.0-0.4) X10*3/uL Baso # (Auto) (0.0-0.2) X10*3/uL Abs Immat Gran (auto) (0.00-0.03) X10*3/uL Absolute Neuts (auto) (2.0-8.3) x10*3/uL Absolute Nucleated RBC (0.0-0.012) X10*3/uL Nucleated RBC % (auto) (0.0-0.2) /100WBC PT (9.9-13.0) SEC INR (0.9-1.1) APTT (24.1-38.0) SEC Sodium (135-145) mmol/L Potassium (3.3-5.1) mmol/L Chloride (96-108) mmol/L Carbon Dioxide (22-29) mmol/L Anion Gap (12-20) BUN (9-16) mg/dL Creatinine (0.5-1.4) mg/dL Estim Creat Clear Calc Estimated GFR POC Glucose 291 H (60-115) mg/dL Random Glucose (60-115) mg/dL Calcium (8.4-10.2) mg/dL Total Bilirubin (0.0-1.0) mg/dL AST (5-31) U/L ALT (0-31) U/L Alkaline Phosphatase (39-117) U/L Troponin I High Sens (<3.5-17.0) ng/L Total Protein (6.5-8.0) g/dL Albumin (3.5-5.0) g/dL Lipase (8-78) U/L TSH (0.32-4.0) uIU/mL COVID-19 (AYESHA) (Negative) COVID-19 Clin Com ECG Data Attestation: I personally reviewed and interpreted this ECG as follows: Interpretation: 1253: Atrial flutter with a ventricular rate of 112, normal QRS and QTC duration, poor R-wave progression from V1 to V3, no ST segment elevation, no ST segment depression, no PVCs. Compared to EKG dated 04/10/2021 the atrial flutter is new. The poor R-wave progression is old. Discharge Plan Discharge Patient Disposition: Admitted As Inpatient Prescriptions: No Action peg 3350-electrolytes 240-22.72-6.72 -5.84 gram recon soln 240 ml PO Q10M Qty: 4000 0RF Rx Instructions: until fecal effluent is clear Toujeo Max U-300 SoloStar 300 unit/mL (3 mL) insulin pen 32 unit subcut DAILY 90 Days Qty: 12 3RF (DME) blood-glucose meter [FreeStyle Lite Meter] Kit See Rx Instructions .ROUTE .MEDSUPPLY Qty: 1 0RF Rx Instructions: As directed (DME) FreeStyle Lite Strips Strip See Rx Instructions .ROUTE .MEDSUPPLY Qty: 100 11RF Rx Instructions: As directed four times a day (DME) lancets [FreeStyle Lancets] 28 gauge misc See Rx Instructions .ROUTE .MEDSUPPLY Qty: 100 11RF Rx Instructions: As directed four times a day aspirin 81 mg tablet,delayed release (DR/EC) 1 tab PO DAILY@1200 0RF levothyroxine 25 mcg tablet 1 tab PO QAM 0RF hydralazine 50 mg tablet 1 tab PO TID@0900,1200,1800 0RF gabapentin 100 mg capsule 200 mg PO BID 0RF ergocalciferol (vitamin D2) 1,250 mcg (50,000 unit) capsule 1 cap PO MAR 0RF Januvia 25 mg tablet 1 tab PO QAM 0RF melatonin 5 mg tablet 1 tab PO BEDTIME 0RF benzonatate [Tessalon Perles] 100 mg capsule 100 mg PO TID PRN (Reason: cough) Qty: 20 0RF amlodipine 10 mg tablet 10 mg PO QAM 0RF atorvastatin 40 mg tablet 40 mg PO DAILY@1200 0RF lisinopril 10 mg tablet 10 mg PO BEDTIME 0RF omeprazole 40 mg capsule,delayed release(DR/EC) 40 mg PO DAILY 0RF sevelamer carbonate 800 mg tablet 800 mg PO TIDAC 0RF tramadol 50 mg tablet 50 - 100 mg PO BID PRN (Reason: pain) Qty: 14 0RF insulin lispro [Humalog KwikPen Insulin] 100 unit/mL insulin pen 4 - 14 unit subcut TIDAC Qty: 30 6RF (DME) pen needle, diabetic [BD Ultra-Fine Micro Pen Needle] 32 gauge x 1/4 needle See Rx Instructions .ROUTE .MEDSUPPLY Qty: 150 11RF Rx Instructions: As directed 4 times a day cefuroxime axetil 250 mg tablet 250 mg PO DAILY 0RF
[2021-06-27] MEDS: Insulin Regular, Human 100 UNIT/ML 3 ML VIAL IVPUSH (13:28)
--- NOTE | 2021-06-27 13:31 | PC.NURSE ---
medicated per provider order, IV placed, labs drawn, cardiac catheterization technician applied, will continue to monitor.
[2021-06-27] MEDS: 0.9 % Sodium Chloride 500 ML IV (13:35)
--- NOTE | 2021-06-27 13:38 | PC.NURSE ---
patient a&ox3, ekg performed, iv inserted-us guided, labs drawn, covid swab obtained, real estate investment analyst applied- afib/flutter noted, pt has no c/o pain or discomfort, will continue to monitor.
[2021-06-27 13:46] LABS: MANUAL DIFF FLAG NO
[2021-06-27 13:50] LABS: Basophils Absolute Auto 0.1 X10*3/uL (0.0-0.2); Basophils Percent Auto 0.6 % (0-2); Eosinophils Absolute Auto 0.7 X10*3/uL (0.0-0.4); Eosinophils Percent Auto 7.9 % (0-4); Hematocrit 30.1 % (37.0-47.0); Hemoglobin 9.8 g/dl (12.0-16.0); Imm Gran Abs Auto 0.08 X10*3/uL (0.00-0.03); Imm Gran Pct Auto 0.9 % (0.0-0.4); Lymphocytes Absolute Auto 1.3 X10*3/uL (1.2-4.9); Lymphocytes Percent Auto 15.2 % (20-40); Mean Corpuscular HGB Conc 32.6 g/dl (31.0-35.0); Mean Corpuscular Hemoglobin 29.9 pg (27.0-33.0); Mean Corpuscular Volume 91.8 fL (80.0-98.0); Mean Platelet Volume 11.7 fL (9.4-12.3); Monocytes Absolute Auto 0.7 X10*3/uL (0.1-1.2); Monocytes Percent Auto 7.8 % (2-11); Neutrophils Absolute Auto 5.7 x10*3/uL (2.0-8.3); Neutrophils Percent Auto 67.6 % (45-73); Platelet Count 218 X10*3/uL (160-400); Red Blood Count 3.28 X10*6/uL (4.20-5.50); Red Cell Distribution Width 14.8 % (11.0-16.0); White Blood Count 8.5 X10*3/uL (4.8-10.8)
[2021-06-27 13:56] LABS: INTERNATIONAL NORM RATIO 0.9 (0.9-1.1); Prothrombin Time 10.7 SEC (9.9-13.0)
[2021-06-27 13:59] LABS: Partial Thromboplastin Time 29.8 SEC (24.1-38.0)
[2021-06-27 14:06] VITALS: BP 156/76; PULSE 110; RESP 15; TEMP 36.9; O2SAT 98
[2021-06-27 14:07] LABS: COVID-19 Test Negative (Negative); IDNOW Serial# 9DD0AD1C
[2021-06-27 14:16] LABS: Alanine Aminotransferase 10 U/L (0-31); Albumin Level 3.7 g/dL (3.5-5.0); Alkaline Phosphatase 128 U/L (39-117); Anion Gap 14 (12-20); Aspartate Amino Transferase 9 U/L (5-31); Bilirubin Total 0.6 mg/dL (0.0-1.0); Blood Urea Nitrogen 46 mg/dL (9-16); Calcium 9.6 mg/dL (8.4-10.2); Carbon Dioxide 29 mmol/L (22-29); Chloride 99 mmol/L (96-108); Creatinine Clr Calc Pharmacy 13.6; Estimated Glomerular Filt Rate 9; Glucose Random 423 mg/dL (60-115); Lipase 34 U/L (8-78); Potassium 4.3 mmol/L (3.3-5.1); Sodium 138 mmol/L (135-145); Total Protein 7.2 g/dL (6.5-8.0)
[2021-06-27 14:19] LABS: Troponin-I High Sensitivity 213.2 ng/L (<3.5-17.0)
[2021-06-27 15:06] LABS: Glucose, Whole Blood 291 mg/dL (60-115)
--- NOTE | 2021-06-27 15:44 | PC.NURSE ---
patient a&ox3, family at bedside, pt currently eating a sandwich, urine obtained, pt will have repeat trop drawn shortly, vss will continue to monitor
[2021-06-27 16:04] VITALS: BP 151/69; PULSE 75; RESP 16; TEMP 36.9; O2SAT 99
[2021-06-27 16:07] LABS: Appearance Urine CLOUDY; Color Urine YELLOW; Glucose Urine UA >=1000 MG/DL (NEG); Leukocyte Esterase Urine 2+ (NEG); Nitrite Urine NEG (NEG); UACC Culture Trigger YES; Urine Blood TRACE (NEG); Urine Ketones NEG (NEG); Urine Protein 2+ MG/DL (NEG-TRACE)
--- NOTE | 2021-06-27 16:08 | P.HPHOSP_ITS ---
History of Present Illness Date of Service: 06/27/21 Chief Complaint: new afib 56F was sent in by pcp after EKG during preoperative exam (for eye surgery) showed afib with rvr. patient denies history of afib. she does have history of ESRD on HD, CAD, AMARJIT. initially denied any symptoms of sob or chest pain or palpitations, but eventually mentioned possible some sob and cehst discomfort that comes and goes, 07/04, midsternal, non radiating. Review of Systems Verdana 4l Review of Systems: Verdana 4d Verdana 4d Constitutional: Denies fever, denies Chills Eyes: denies blurry vision ENT: denies sore throat CVS: chest pain Respiratory:dyspnea GI: no abdominal pain : denies dysuria MSK: denies neck pain Skin: denies rash Neuro: denies specific motormotor weakness Psych: denies suicidal ideation Endocrine: denies heat/cold intolerance Hematologic: denies easy bleeding Allergy: denies hives [facility] Medical History Asthma AV fistula CAD (coronary artery disease) CHF (congestive heart failure) Chronic cough Chronic low back pain without sciatica Depression Dialysis patient Dysphonia Dyspnea on exertion ESRD (end stage renal disease) ESRD needing dialysis GERD (gastroesophageal reflux disease) HLD (hyperlipidemia) HTN (hypertension) Kidney stones Normocytic anemia Obesity due to excess calories Osteoarthritis of both knees Renal failure (ARF), acute on chronic T2DM (type 2 diabetes mellitus) Thyroid disease Unstable gait Urinary frequency Family History Father CVD (cardiovascular disease) Diabetes Mother Diabetes Sister Stomach cancer Surgical History History of kidney surgery Hx of bone graft Hx of cholecystectomy Social History Household Members: Spouse Housing: House Do you presently have visiting nurse or other home services: No Alcohol intake: never Patient Tobacco Use Status: Never used Tobacco Use of substances other than those prescribed or required for medical reasons: No Advance Directives: Yes Advance Directives on File: Yes Advance Directives Date on File: 02/15/21 Patient : No service: No Current occupational status: disabled Meds Allergies Allergy/AdvReac Type Severity Reaction Status Date / Time No Known Allergies Allergy Verified 06/13/21 13:48 [No Known Allergies*] Active Medications: Current Medications Apixaban (Apixaban 5 Mg Tablet) 5 mg PO BID [facility] Dextrose (Dextrose 50 % 25 Gm/50 Ml Syringe) 25 gm IVPUSH Q15M PRN; Protocol PRN Reason: per Hypoglycemia Standing Ord. Glucose (Glucose Gel 15 Gm Gel..Gram.) 15 gm PO Q15M PRN; Protocol PRN Reason: per Hypoglycemia Standing Ord. Insulin Human Lispro (Insulin Lispro 100 Unit/Ml 3 Ml Vial) 0 unit SUBCUT QIDACHS [facility]; Protocol Metoprolol Tartrate (Metoprolol Tartrate 25 Mg Tablet) 25 mg PO TID [facility]; Protocol Pharmacy Consult (Consult Rx Perform Med Rec) 1 each MISCELLANE ONCE PRN PRN Reason: Consult order Sodium Chloride (0.9 % Sodium Chloride Flush 3 Ml Syringe) [address] [facility] Home Medications Medication Instructions Recorded Confirmed Last Taken Type aspirin 81 mg 1 tab PO DAILY 02/12/21 06/27/21 06/27/21 History tablet,delayed release ergocalciferol 1 cap PO MAR 02/12/21 06/27/21 06/23/21 History (vitamin D2) 1,250 mcg (50,000 unit) capsule gabapentin 100 mg 200 mg PO BID 02/12/21 06/27/21 06/27/21 History capsule hydralazine 50 mg 1 tab PO 02/12/21 06/27/21 06/27/21 History tablet TID@0900,1200,18 00 levothyroxine 25 1 tab PO QAM 02/12/21 06/27/21 06/27/21 History mcg tablet melatonin 5 mg 1 tab PO BEDTIME 02/12/21 06/27/21 06/26/21 History tablet sitagliptin 25 mg 1 tab PO QAM 02/12/21 06/27/21 06/27/21 History tablet (Januvia) amlodipine 10 mg 10 mg PO QAM 02/26/21 06/27/21 06/27/21 History tablet atorvastatin 40 40 mg PO DAILY 02/26/21 06/27/21 06/27/21 History mg tablet lisinopril 10 mg 10 mg PO BEDTIME 02/26/21 06/27/21 06/26/21 History tablet omeprazole 40 mg 40 mg PO DAILY 02/26/21 06/27/21 06/27/21 History capsule,delayed release sevelamer 800 mg PO TIDAC 02/26/21 06/27/21 06/27/21 History carbonate 800 mg tab tablet insulin glargine 20 unit SUBCUT 06/27/21 06/27/21 Unknown History U-300 conc 300 DAILY unit/mL (3 mL) subcutaneous pen (Toujeo Max U-300 SoloStar) insulin lispro See Rx 06/27/21 06/27/21 Unknown History 100 unit/mL Instructions .ROUTE .COMPLEX subcutaneous pen (Humalog KwikPen (U-100) Insulin) Physical Exam 2 Verdana 4l Vital Signs and Narrative: Verdana 4d Verdana 4d Vital Signs: Verdana 4d Verdana 4Bd Last Vital Signs Verdana 4d Accounts Receivable Specialist New 4d Accounts Receivable Specialist New 4d Temp 98.4 F 06/27/21 14:06 Accounts Receivable Specialist New 4d Pulse 110 H 06/27/21 14:06 Accounts Receivable Specialist New 4d Resp 15 06/27/21 14:06 BP 156/76 H 06/27/21 14:06 Pulse Ox 98 06/27/21 14:06 BMI result Body Mass Index 36.3 General: no acute distress HEENT: atraumatic Neck: normal to visual inspection CVS: S1, S2, irregular Resp: CTA bilateral Chest: non tender GI: soft, non tender, non distended : no CVA tenderness Skin: no rashes Extremities: no edema Neuro: Oriented X3, grossly intact Psych: cooperative Results Labs CBC and Chem 7: 06/27/21 13:34 06/27/21 13:34 Labs: Laboratory Results - last 24 hr 06/27/21 06/27/21 06/27/21 12:45 13:34 13:34 MCV 91.8 MCH 29.9 MCHC 32.6 RDW 14.8 Plt Count 218 D MPV 11.7 Immature Gran % (Auto) 0.9 H Neut % (Auto) 67.6 Lymph % (Auto) 15.2 L [place] % (Auto) 7.8 Eos % (Auto) 7.9 H Baso % (Auto) 0.6 Lymph # (Auto) 1.3 [place] # (Auto) 0.7 Eos # (Auto) 0.7 H Baso # (Auto) 0.1 Abs Immat Gran (auto) 0.08 H Absolute Neuts (auto) 5.7 Absolute Nucleated RBC 0.000 Nucleated RBC % (auto) 0.0 PT 10.7 INR 0.9 APTT 29.8 Anion Gap Estim Creat Clear Calc Estimated GFR POC Glucose 406 H* Random Glucose Calcium Total Bilirubin AST ALT Alkaline Phosphatase Total Protein Albumin Lipase TSH Urine Color Urine Appearance Urine pH Ur Specific [place] Urine Protein Urine Glucose (UA) Urine Ketones Urine Blood Urine Nitrite Ur Leukocyte Esterase COVID-19 (AYESHA) COVID-19 Clin Com 06/27/21 06/27/21 06/27/21 13:34 13:34 15:03 MCV MCH MCHC RDW Plt Count MPV Immature Gran % (Auto) Neut % (Auto) Lymph % (Auto) [place] % (Auto) Eos % (Auto) Baso % (Auto) Lymph # (Auto) [place] # (Auto) Eos # (Auto) Baso # (Auto) Abs Immat Gran (auto) Absolute Neuts (auto) Absolute Nucleated RBC Nucleated RBC % (auto) PT INR APTT Anion Gap 14 Estim Creat Clear Calc 13.6 Estimated GFR 9 POC Glucose 291 H Random Glucose 423 H* Calcium 9.6 Total Bilirubin 0.6 AST 9 ALT 10 Alkaline Phosphatase 128 H Total Protein 7.2 Albumin 3.7 Lipase 34 TSH 3.10 Urine Color Urine Appearance Urine pH Ur Specific [place] Urine Protein Urine Glucose (UA) Urine Ketones Urine Blood Urine Nitrite Ur Leukocyte Esterase COVID-19 (AYESHA) Negative COVID-19 Clin Com See Note 06/27/21 15:42 MCV MCH MCHC RDW Plt Count MPV Immature Gran % (Auto) Neut % (Auto) Lymph % (Auto) [place] % (Auto) Eos % (Auto) Baso % (Auto) Lymph # (Auto) [place] # (Auto) Eos # (Auto) Baso # (Auto) Abs Immat Gran (auto) Absolute Neuts (auto) Absolute Nucleated RBC Nucleated RBC % (auto) PT INR APTT Anion Gap Estim Creat Clear Calc Estimated GFR POC Glucose Random Glucose Calcium Total Bilirubin AST ALT Alkaline Phosphatase Total Protein Albumin Lipase TSH Urine Color YELLOW Urine Appearance CLOUDY Urine pH 7.0 Ur Specific [place] 1.010 Urine Protein 2+ H Urine Glucose (UA) >=1000 H Urine Ketones NEG Urine Blood TRACE Urine Nitrite NEG Ur Leukocyte Esterase 2+ H COVID-19 (AYESHA) COVID-19 Clin Com Imaging Radiologist's Impressions: Impressions Chest X-Ray 06/27/21 14:04 IMPRESSION: Similar cardiomegaly without acute pulmonary pathology. Assessment and Plan (1) End stage renal disease on dialysis: Status: Acute Plan 56F presented with new onset afib with rvr new onset afib with rvr lopressor, tele, cardio eval, eliquis ESRD HD, nephro DM insulin hypothyroid synthroid HTN hydralazine, lisinopril Quality Stroke Does the patient have a stroke diagnosis?: No VTE Prior VTE?: No VTE Risk Level:: Medical - moderate - high VTE Device Contraindication: Treatment Not Indicated VTE Drug Contraindication: N/A - Med Ordered
[2021-06-27 16:14] LABS: Bacteria Urine 3+ /LPF; Squamous Epithelial Cell Urine 3+ /LPF
--- NOTE | 2021-06-27 16:45 | PC.NURSE ---
patient a&ox3, residential monitor afib 70s, pt c/o midsternal c/p- provider notified pt will be medicated with tylenol per new order, vss, poc obtained, repeat trop obtained, call mckinney within reach, will continue to monitor.
[2021-06-27] MEDS: Acetaminophen 325 MG TABLET 650 MG PO (16:50)
[2021-06-27 17:22] LABS: Troponin-I High Sensitivity 221.2 ng/L (<3.5-17.0)
--- NOTE | 2021-06-27 18:06 | PHA.MEDREC ---
Pharmacy Consult ? Medication Reconciliation Pharmacy has completed the medication reconciliation. Patient doesnt know insulin doses as she changes it based on how much she needed
[2021-06-27 19:25] LABS: Glucose, Whole Blood 255 mg/dL (60-115)
[2021-06-27 19:29] LABS: Glucose, Whole Blood 281 mg/dL (60-115)
[2021-06-27] MEDS: Insulin Lispro 100 UNIT/ML 3 ML VIAL SUBCUT ×2 (19:33→22:24)
--- NOTE | 2021-06-27 19:36 | PC.NURSE ---
report called to overflow, pt being transported to bed 3
[2021-06-27 20:00] VITALS: BP 157/62; PULSE 80; RESP 14; TEMP 36.6; O2SAT 98
[2021-06-27] MEDS: lisinopriL 10 MG TABLET PO (20:19)
[2021-06-27] MEDS: Apixaban 5 MG TABLET PO (20:19)
[2021-06-27] MEDS: Gabapentin 100 MG CAPSULE 200 MG PO (20:19)
[2021-06-27] MEDS: Metoprolol Tartrate 25 MG TABLET PO (20:19)
[2021-06-27 22:08] LABS: Glucose, Whole Blood 311 mg/dL (60-115)
[2021-06-27] MEDS: Insulin Glargine,Hum.rec.anlog 100 UNIT/ML 10 ML VIAL 20 UNIT SUBCUT (22:25)
[2021-06-27] MEDS: 0.9 % Sodium Chloride Flush 3 ML SYRINGE IVFLUSH (22:26)
--- NOTE | 2021-06-27 23:10 | PC.NURSE ---
Patient transported from main ed to overflow ed bed 3 at 2000, patient alert and oriented x3, denies any pain or discomfort at this time. Patient is a dialysis patient, reports (M,W,F) reports had dialysis yesterday. Fistula to left lower arm +bruit/thrill. vss, call mckinney within reach.
--- NOTE | 2021-06-27 23:28 | PC.NURSE ---
Report given to nurse on med surge
[2021-06-28 01:09] VITALS: BP 171/67; PULSE 79; RESP 18; TEMP 36.6; O2SAT 96
[2021-06-28] MEDS: Melatonin 3 MG TABLET 6 MG PO (01:25)
[2021-06-28 03:41] VITALS: BP 150/68; PULSE 68; RESP 16; TEMP 36.4; O2SAT 99
[2021-06-28] MEDS: Levothyroxine Sodium 25 MCG TABLET PO (05:35)
[2021-06-28 06:20] LABS: Hemoglobin 9.5 g/dl (12.0-16.0); Mean Corpuscular HGB Conc 32.8 g/dl (31.0-35.0); Mean Corpuscular Hemoglobin 30.5 pg (27.0-33.0); Mean Corpuscular Volume 93.2 fL (80.0-98.0); Mean Platelet Volume 11.8 fL (9.4-12.3); Platelet Count 217 X10*3/uL (160-400); Red Blood Count 3.11 X10*6/uL (4.20-5.50); Red Cell Distribution Width 14.8 % (11.0-16.0); White Blood Count 9.2 X10*3/uL (4.8-10.8)
[2021-06-28 06:50] LABS: Anion Gap 17 (12-20); Blood Urea Nitrogen 61 mg/dL (9-16); Calcium 9.3 mg/dL (8.4-10.2); Carbon Dioxide 26 mmol/L (22-29); Chloride 101 mmol/L (96-108); Creatinine Clr Calc Pharmacy 10.4; Estimated Glomerular Filt Rate 6; Glucose Fasting 267 mg/dL (60-99); Magnesium 2.4 mg/dL (1.6-2.6); Potassium 4.6 mmol/L (3.3-5.1); Sodium 139 mmol/L (135-145)
[2021-06-28] MEDS: 0.9 % Sodium Chloride Flush 3 ML SYRINGE IVFLUSH ×2 (07:56→16:42)
[2021-06-28 08:14] LABS: Glucose, Whole Blood 31 mg/dL (60-115)
[2021-06-28 08:28] VITALS: BP 166/74; PULSE 71; RESP 18; TEMP 36.3; O2SAT 98
[2021-06-28 08:39] LABS: Glucose, Whole Blood 325 mg/dL (60-115)
--- NOTE | 2021-06-28 09:59 | P.DS_ITS ---
DS: Providers Provider Date of Service: 06/28/21 Date of admission: 06/27/21 16:04 Primary care physician: Unknown Physician Consults: 06/27/21 16:00 Consult to Cardiology Routine Consulting Provider: Ren Eduardo Reason for consultation: new afib Consult to Nephrology Routine Consulting Provider: Ismael Tinoco Reason for consultation: esrd DS: Diagnosis Discharge Diagnosis (1) End stage renal disease on dialysis: Status: Acute DS: Summary Hospital Course Hospital Course: patient was observed for new onset afib with rvr. she was given metoprolol and converted to NSR. she will be discharged on metoprolol 25mg bid and eliquis. Time Spent with Patient Time attestation: Total time spent providing and/or coordinating discharge services: Discharge coordination time: Greater than 30 minutes Quality: Stroke Does the patient have a stroke diagnosis?: No Physical Exam Verdana 4l Vital Signs: Verdana 4d Verdana 4d Vital Signs: Verdana 4d Verdana 4Bd Last Vital Signs Verdana 4d Paving Rammer New 4d Paving Rammer New 4d Temp 97.4 F 06/28/21 08:28 Paving Rammer New 4d Pulse 71 06/28/21 08:28 Paving Rammer New 4d Resp 18 06/28/21 08:28 BP 166/74 H 06/28/21 08:28 Pulse Ox 98 06/28/21 08:28 BMI result Body Mass Index 36.3 General: AO X 3, no acute distress Resp: CTA bilateral, no accessory muscles used CVS: S1,S2,RRR GI: soft, non tender, non distended Neuro: motor grossly intact, alert Psych: appropriate affect, appropriate insight DS: Data Data Completed and Pending Completed studies during hospitalization [Text1]: Procedures Performance of Urinary Filtration, Intermittent, Less than 6 Hours Per Day ( 02/12/21) Labs on day of discharge: Laboratory Results - last 24 hr 06/27/21 06/27/21 06/27/21 12:45 13:34 13:34 WBC 8.5 RBC 3.28 L Hgb 9.8 L Hct 30.1 L MCV 91.8 MCH 29.9 MCHC 32.6 RDW 14.8 Plt Count 218 D MPV 11.7 Immature Gran % (Auto) 0.9 H Neut % (Auto) 67.6 Lymph % (Auto) 15.2 L [place] % (Auto) 7.8 Eos % (Auto) 7.9 H Baso % (Auto) 0.6 Lymph # (Auto) 1.3 [place] # (Auto) 0.7 Eos # (Auto) 0.7 H Baso # (Auto) 0.1 Abs Immat Gran (auto) 0.08 H Absolute Neuts (auto) 5.7 Absolute Nucleated RBC 0.000 Nucleated RBC % (auto) 0.0 PT 10.7 INR 0.9 APTT 29.8 Sodium Potassium Chloride Carbon Dioxide Anion Gap BUN Creatinine Estim Creat Clear Calc Estimated GFR POC Glucose 406 H* Random Glucose Fasting Glucose Calcium Magnesium Total Bilirubin AST ALT Alkaline Phosphatase Troponin I High Sens Total Protein Albumin Lipase TSH Urine Color Urine Appearance Urine pH Ur Specific [place] Urine Protein Urine Glucose (UA) Urine Ketones Urine Blood Urine Nitrite Ur Leukocyte Esterase Urine RBC Urine WBC Ur Squamous Epith Cells Urine Bacteria COVID-19 (AYESHA) COVID-[place] Com 06/27/21 06/27/21 06/27/21 13:34 13:34 13:34 WBC RBC Hgb Hct MCV MCH MCHC RDW Plt Count MPV Immature Gran % (Auto) Neut % (Auto) Lymph % (Auto) [place] % (Auto) Eos % (Auto) Baso % (Auto) Lymph # (Auto) [place] # (Auto) Eos # (Auto) Baso # (Auto) Abs Immat Gran (auto) Absolute Neuts (auto) Absolute Nucleated RBC Nucleated RBC % (auto) PT INR APTT Sodium 138 Potassium 4.3 Chloride 99 Carbon Dioxide 29 Anion Gap 14 BUN 46 H Creatinine 5.06 H* Estim Creat Clear Calc 13.6 Estimated GFR 9 POC Glucose Random Glucose 423 H* Fasting Glucose Calcium 9.6 Magnesium Total Bilirubin 0.6 AST 9 ALT 10 Alkaline Phosphatase 128 H Troponin I High Sens 213.2 H* Total Protein 7.2 Albumin 3.7 Lipase 34 TSH 3.10 Urine Color Urine Appearance Urine pH Ur Specific [place] Urine Protein Urine Glucose (UA) Urine Ketones Urine Blood Urine Nitrite Ur Leukocyte Esterase Urine RBC Urine WBC Ur Squamous Epith Cells Urine Bacteria COVID-19 (AYESHA) Negative COVID-19 Clin Com See Note 06/27/21 06/27/21 06/27/21 15:03 15:42 16:40 WBC RBC Hgb Hct MCV MCH MCHC RDW Plt Count MPV Immature Gran % (Auto) Neut % (Auto) Lymph % (Auto) [place] % (Auto) Eos % (Auto) Baso % (Auto) Lymph # (Auto) [place] # (Auto) Eos # (Auto) Baso # (Auto) Abs Immat Gran (auto) Absolute Neuts (auto) Absolute Nucleated RBC Nucleated RBC % (auto) PT INR APTT Sodium Potassium Chloride Carbon Dioxide Anion Gap BUN Creatinine Estim Creat Clear Calc Estimated GFR POC Glucose 291 H Random Glucose Fasting Glucose Calcium Magnesium Total Bilirubin AST ALT Alkaline Phosphatase Troponin I High Sens 221.2 H* Total Protein Albumin Lipase TSH Urine Color YELLOW Urine Appearance CLOUDY Urine pH 7.0 Ur Specific [place] 1.010 Urine Protein 2+ H Urine Glucose (UA) >=1000 H Urine Ketones NEG Urine Blood TRACE Urine Nitrite NEG Ur Leukocyte Esterase 2+ H Urine RBC 1-4 Urine WBC 15-29 H Ur Squamous Epith Cells 3+ Urine Bacteria 3+ COVID-19 (AYESHA) COVID-19 [place] 06/27/21 06/27/21 06/27/21 16:42 19:24 22:01 WBC RBC Hgb Hct MCV MCH MCHC RDW Plt Count MPV Immature Gran % (Auto) Neut % (Auto) Lymph % (Auto) [place] % (Auto) Eos % (Auto) Baso % (Auto) Lymph # (Auto) [place] # (Auto) Eos # (Auto) Baso # (Auto) Abs Immat Gran (auto) Absolute Neuts (auto) Absolute Nucleated RBC Nucleated RBC % (auto) PT INR APTT Sodium Potassium Chloride Carbon Dioxide Anion Gap BUN Creatinine Estim Creat Clear Calc Estimated GFR POC Glucose 255 H 281 H 311 H Random Glucose Fasting Glucose Calcium Magnesium Total Bilirubin AST ALT Alkaline Phosphatase Troponin I High Sens Total Protein Albumin Lipase TSH Urine Color Urine Appearance Urine pH Ur Specific [place] Urine Protein Urine Glucose (UA) Urine Ketones Urine Blood Urine Nitrite Ur Leukocyte Esterase Urine RBC Urine WBC Ur Squamous Epith Cells Urine Bacteria COVID-19 (AYESHA) COVID-19 [place] 06/28/21 06/28/21 06/28/21 06:01 06:01 08:08 WBC 9.2 RBC 3.11 L Hgb 9.5 L Hct 29.0 L MCV 93.2 MCH 30.5 MCHC 32.8 RDW 14.8 Plt Count 217 MPV 11.8 Immature Gran % (Auto) Neut % (Auto) Lymph % (Auto) [place] % (Auto) Eos % (Auto) Baso % (Auto) Lymph # (Auto) [place] # (Auto) Eos # (Auto) Baso # (Auto) Abs Immat Gran (auto) Absolute Neuts (auto) Absolute Nucleated RBC 0.000 Nucleated RBC % (auto) 0.0 PT INR APTT Sodium 139 Potassium 4.6 Chloride 101 Carbon Dioxide 26 Anion Gap 17 BUN 61 H Creatinine 6.63 H* Estim Creat Clear Calc 10.4 Estimated GFR 6 POC Glucose 31 L* Random Glucose Fasting Glucose 267 H Calcium 9.3 Magnesium 2.4 Total Bilirubin AST ALT Alkaline Phosphatase Troponin I High Sens Total Protein Albumin Lipase TSH Urine Color Urine Appearance Urine pH Ur Specific [place] Urine Protein Urine Glucose (UA) Urine Ketones Urine Blood Urine Nitrite Ur Leukocyte Esterase Urine RBC Urine WBC Ur Squamous Epith Cells Urine Bacteria COVID-19 (AYESHA) COVID-19 [place] 06/28/21 08:35 WBC RBC Hgb Hct MCV MCH MCHC RDW Plt Count MPV Immature Gran % (Auto) Neut % (Auto) Lymph % (Auto) [place] % (Auto) Eos % (Auto) Baso % (Auto) Lymph # (Auto) [place] # (Auto) Eos # (Auto) Baso # (Auto) Abs Immat Gran (auto) Absolute Neuts (auto) Absolute Nucleated RBC Nucleated RBC % (auto) PT INR APTT Sodium Potassium Chloride Carbon Dioxide Anion Gap BUN Creatinine Estim Creat Clear Calc Estimated GFR POC Glucose 325 H Random Glucose Fasting Glucose Calcium Magnesium Total Bilirubin AST ALT Alkaline Phosphatase Troponin I High Sens Total Protein Albumin Lipase TSH Urine Color Urine Appearance Urine pH Ur Specific [place] Urine Protein Urine Glucose (UA) Urine Ketones Urine Blood Urine Nitrite Ur Leukocyte Esterase Urine RBC Urine WBC Ur Squamous Epith Cells Urine Bacteria COVID-19 (AYESHA) COVID-19 Clin Com Discharge Plan Discharge Patient Disposition: Home, Self-Care Discharge Diagnosis: afib Referrals: Physician,Unknown J [Primary Care Provider] - 1 Week Discharge Medications: New Eliquis 5 mg Tablet 5 mg PO BID Qty: 60 0RF metoprolol tartrate 50 mg tablet 50 mg PO Q12H Qty: 60 0RF Continued (DME) blood-glucose meter [FreeStyle Lite Meter] Kit See Rx Instructions .ROUTE .MEDSUPPLY Qty: 1 0RF Rx Instructions: As directed (DME) FreeStyle Lite Strips Strip See Rx Instructions .ROUTE .MEDSUPPLY Qty: 100 11RF Rx Instructions: As directed four times a day (DME) lancets [FreeStyle Lancets] 28 gauge misc See Rx Instructions .ROUTE .MEDSUPPLY Qty: 100 11RF Rx Instructions: As directed four times a day levothyroxine 25 mcg tablet 1 tab PO QAM 0RF hydralazine 50 mg tablet 1 tab PO TID@0900,1200,1800 0RF gabapentin 100 mg capsule 200 mg PO BID 0RF ergocalciferol (vitamin D2) 1,250 mcg (50,000 unit) capsule 1 cap PO MAR 0RF Januvia 25 mg tablet 1 tab PO QAM 0RF melatonin 5 mg tablet 1 tab PO BEDTIME 0RF amlodipine 10 mg tablet 10 mg PO QAM 0RF atorvastatin 40 mg tablet 40 mg PO DAILY 0RF lisinopril 10 mg tablet 10 mg PO BEDTIME 0RF omeprazole 40 mg capsule,delayed release(DR/EC) 40 mg PO DAILY 0RF sevelamer carbonate 800 mg tablet 800 mg PO TIDAC 0RF insulin lispro [Humalog KwikPen Insulin] 100 unit/mL insulin pen See Rx Instructions .ROUTE .COMPLEX 0RF Rx Instructions: SLIDING SCALE Toujeo Max U-300 SoloStar 300 unit/mL (3 mL) insulin pen 20 unit subcut DAILY 0RF Rx Instructions: BASED ON GLUCOSE LEVEL (DME) pen needle, diabetic [BD Ultra-Fine Micro Pen Needle] 32 gauge x 1/4 needle See Rx Instructions .ROUTE .MEDSUPPLY Qty: 150 11RF Rx Instructions: As directed 4 times a day Discontinued aspirin 81 mg tablet,delayed release (DR/EC) 1 tab PO DAILY 0RF Discharge Orders: Discharge Order (Routine); Ordered 06/28/21 Ordered By: Myles Rehman Diet: advance to usual diet Activity on Discharge: As tolerated Stand Alone Forms: Patient Portal Discharge page Care Plan Goals: avoid afib, avoid strokes Health Concerns: new afib Plan of Treatment: start lopressor and eliquis, follow up with cardio Assessment: see above
--- NOTE | 2021-06-28 10:12 | P.CONCA_ITS ---
History of Present Illness History of Present Illness Date of Service: 06/28/21 Chief complaint: new afib Narrative: This is a cardiology consultation regarding atrial flutter/fibrillation. Patient was last seen by Yunier ABDI in our office few months back. Per last office note, multiple medical comorbidities listed include hypertension, hyperlipidemia, obesity, ESRD on hemodialysis, CAD, CHF. Current admission is because of atrial fibrillation rapid rate. It seems that she was sent in by PCP after EKG during preoperative eye exam showed atrial fibrillation rapid rate. Patient herself had some nonspecific chest pains at different times and even last night. She did not feel any palpitations. She states that she has fallen in the past but not clear if syncopal episodes or mechanical falls. Review of Systems Verdana 4l Review of Systems: Verdana 4d Yes all other systems are reviewed and are negative Verdana 4l Cardiovascular: Verdana 4d Verdana 4d Cardiovascular: Verdana 4d Reports as per HPI, Reports no additional cardiovascular complaints, Denies acrocyanosis, Denies cool extremities, Denies painful fingertips, Reports chest pain, Reports chest pain at rest, Denies diaphoresis, DeniesDenies syncope, Denies irregular heart rhythm, Denies claudication, Denies leg edema, Denies lightheadedness, Denies palpitations and Denies dyspnea Respiratory: Respiratory: Denies dyspnea Neurologic: Denies syncope Endocrine: Endocrine: Denies palpitations PMFSH Past Medical History Medical History Asthma AV fistula CAD (coronary artery disease) CHF (congestive heart failure) Chronic cough Chronic low back pain without sciatica Depression Dialysis patient Dysphonia Dyspnea on exertion ESRD (end stage renal disease) ESRD needing dialysis GERD (gastroesophageal reflux disease) HLD (hyperlipidemia) HTN (hypertension) Kidney stones Normocytic anemia Obesity due to excess calories Osteoarthritis of both knees Renal failure (ARF), acute on chronic T2DM (type 2 diabetes mellitus) Thyroid disease Unstable gait Urinary frequency Family History Family History Father CVD (cardiovascular disease) Diabetes Mother Diabetes Sister Stomach cancer Surgical History Surgical History History of kidney surgery Hx of bone graft Hx of cholecystectomy Social History Social History Household Members: Spouse Housing: House Do you presently have visiting nurse or other home services: No Alcohol intake: never Patient Tobacco Use Status: Never used Tobacco Advance Directives Date on File: 02/15/21 service: No Current occupational status: disabled Meds Allergies Allergy/AdvReac Type Severity Reaction Status Date / Time No Known Allergies Allergy Verified 06/13/21 13:48 [No Known Allergies*] Active Medications: Current Medications Amlodipine Besylate (Amlodipine Besylate 10 Mg Tablet) 10 mg PO DAILY [facility]; Protocol Apixaban (Apixaban 5 Mg Tablet) 5 mg PO BID [facility] Last Admin: 06/27/21 20:19 Dose: 5 mg Documented by: Atorvastatin Calcium (Atorvastatin Calcium 40 Mg Tablet) 40 mg PO DAILY [facility] Dextrose (Dextrose 50 % 25 Gm/50 Ml Syringe) 25 gm IVPUSH Q15M PRN; Protocol PRN Reason: per Hypoglycemia Standing Ord. Gabapentin (Gabapentin 100 Mg Capsule) 200 mg PO BID [facility] Last Admin: 06/27/21 20:19 Dose: 200 mg Documented by: Glucose (Glucose Gel 15 Gm Gel..Gram.) 15 gm PO Q15M PRN; Protocol PRN Reason: per Hypoglycemia Standing Ord. Hydralazine HCl (Hydralazine Hcl 50 Mg Tablet) 50 mg PO TID@0900,1200,1800 [facility]; Protocol Insulin Glargine (Insulin Glargine,Hum.Rec.Anlog 100 Unit/Ml 10 Ml Vial) 20 unit SUBCUT BEDTIME [facility] Last Admin: 06/27/21 22:25 Dose: 20 unit Documented by: Insulin Human Lispro (Insulin Lispro 100 Unit/Ml 3 Ml Vial) 0 unit SUBCUT QIDACHS [facility]; Protocol Last Admin: 06/28/21 08:37 Dose: Not Given Documented by: Levothyroxine Sodium (Levothyroxine Sodium 25 Mcg Tablet) 25 mcg PO DAILY@0630 [facility] Last Admin: 06/28/21 05:35 Dose: 25 mcg Documented by: Lisinopril (Lisinopril 10 Mg Tablet) 10 mg PO BEDTIME [facility]; Protocol Last Admin: 06/27/21 20:19 Dose: 10 mg Documented by: Metoprolol Tartrate (Metoprolol Tartrate 25 Mg Tablet) 25 mg PO TID [facility]; Protocol Last Admin: 06/27/21 20:19 Dose: 25 mg Documented by: Omeprazole (Omeprazole 40 Mg Yousif.) 40 mg PO DAILY [facility] Pharmacy Consult (Consult Rx Perform Med Rec) 1 each MISCELLANE ONCE PRN PRN Reason: Consult order Sevelamer Carbonate (Sevelamer Carbonate Tablet 800 Mg Tablet) 800 mg PO TIDAC [facility] Sitagliptin Phosphate (Sitagliptin Phosphate 25 Mg Tablet) 25 mg PO DAILY [facility] Sodium Chloride (0.9 % Sodium Chloride Flush 3 Ml Syringe) 3 ml IVFLUSH QSHIFT [facility] Last Admin: 06/28/21 07:56 Dose: 3 ml Documented by: Home Medications Medication Instructions Recorded Confirmed Last Taken Type ergocalciferol 1 cap PO MAR 02/12/21 06/27/21 06/23/21 History (vitamin D2) 1,250 mcg (50,000 unit) capsule gabapentin 100 mg 200 mg PO BID 02/12/21 06/27/21 06/27/21 History capsule hydralazine 50 mg 1 tab PO 02/12/21 06/27/21 06/27/21 History tablet TID@0900,1200,18 00 levothyroxine 25 1 tab PO QAM 02/12/21 06/27/21 06/27/21 History mcg tablet melatonin 5 mg 1 tab PO BEDTIME 02/12/21 06/27/21 06/26/21 History tablet sitagliptin 25 mg 1 tab PO QAM 02/12/21 06/27/21 06/27/21 History tablet (Januvia) amlodipine 10 mg 10 mg PO QAM 02/26/21 06/27/21 06/27/21 History tablet atorvastatin 40 40 mg PO DAILY 02/26/21 06/27/21 06/27/21 History mg tablet lisinopril 10 mg 10 mg PO BEDTIME 02/26/21 06/27/21 06/26/21 History tablet omeprazole 40 mg 40 mg PO DAILY 02/26/21 06/27/21 06/27/21 History capsule,delayed release sevelamer 800 mg PO TIDAC 02/26/21 06/27/21 06/27/21 History carbonate 800 mg tab tablet insulin glargine 20 unit SUBCUT 06/27/21 06/27/21 Unknown History U-300 conc 300 DAILY unit/mL (3 mL) subcutaneous pen (Toujeo Max U-300 SoloStar) insulin lispro See Rx 06/27/21 06/27/21 Unknown History 100 unit/mL Instructions .ROUTE .COMPLEX subcutaneous pen (Humalog KwikPen (U-100) Insulin) Physical Exam Verdana 4l Vital Signs: Verdana 4d Verdana 4d Vital Signs: Verdana 4d Verdana 4Bd Last Vital Signs Verdana 4d Cell Tester New 4d Cell Tester New 4d Temp 97.4 F 06/28/21 08:28 Cell Tester New 4d Pulse 71 06/28/21 08:28 Cell Tester New 4d Resp 18 06/28/21 08:28 BP 166/74 H 06/28/21 08:28 Pulse Ox 98 06/28/21 08:28 BMI result Body Mass Index 36.3 Const: General: no acute distress HENMT: Other: Unremarkable Neck: Neck: Yes normal visual inspection Chest: Chest palpation & inspection: normal inspection of the chest Resp: Auscultation: no crackles and no wheezes Cardio: Palpation: normal PMI Heart sounds: S1 normal heart sound present, S2 normal heart sound present, no gallops, no murmurs and no rubs GI: Palpation (GI): Soft to palpation Back/Spine/Pelvis: Other: unremarkable Skin: Lesions: other Neuro: Cranial nerves: Yes Other cranial nerve findings present Extrem: General: Yes other Psych: Mental Status: other Objective Labs and Meds Result diagrams: 06/28/21 06:01 06/28/21 06:01 Lab results: Laboratory Results - last 24 hr 06/27/21 06/27/21 06/27/21 12:45 13:34 13:34 WBC 8.5 RBC 3.28 L Hgb 9.8 L Hct 30.1 L MCV 91.8 MCH 29.9 MCHC 32.6 RDW 14.8 Plt Count 218 D MPV 11.7 Immature Gran % (Auto) 0.9 H Neut % (Auto) 67.6 Lymph % (Auto) 15.2 L [place] % (Auto) 7.8 Eos % (Auto) 7.9 H Baso % (Auto) 0.6 Lymph # (Auto) 1.3 [place] # (Auto) 0.7 Eos # (Auto) 0.7 H Baso # (Auto) 0.1 Abs Immat Gran (auto) 0.08 H Absolute Neuts (auto) 5.7 Absolute Nucleated RBC 0.000 Nucleated RBC % (auto) 0.0 PT 10.7 INR 0.9 APTT 29.8 Sodium Potassium Chloride Carbon Dioxide Anion Gap BUN Creatinine Estim Creat Clear Calc Estimated GFR POC Glucose 406 H* Random Glucose Fasting Glucose Calcium Magnesium Total Bilirubin AST ALT Alkaline Phosphatase Troponin I High Sens Total Protein Albumin Lipase TSH Urine Color Urine Appearance Urine pH Ur Specific [place] Urine Protein Urine Glucose (UA) Urine Ketones Urine Blood Urine Nitrite Ur Leukocyte Esterase Urine RBC Urine WBC Ur Squamous Epith Cells Urine Bacteria COVID-19 (AYESHA) COVID-19 Clin Com 06/27/21 06/27/21 06/27/21 13:34 13:34 13:34 WBC RBC Hgb Hct MCV MCH MCHC RDW Plt Count MPV Immature Gran % (Auto) Neut % (Auto) Lymph % (Auto) [place] % (Auto) Eos % (Auto) Baso % (Auto) Lymph # (Auto) [place] # (Auto) Eos # (Auto) Baso # (Auto) Abs Immat Gran (auto) Absolute Neuts (auto) Absolute Nucleated RBC Nucleated RBC % (auto) PT INR APTT Sodium 138 Potassium 4.3 Chloride 99 Carbon Dioxide 29 Anion Gap 14 BUN 46 H Creatinine 5.06 H* Estim Creat Clear Calc 13.6 Estimated GFR 9 POC Glucose Random Glucose 423 H* Fasting Glucose Calcium 9.6 Magnesium Total Bilirubin 0.6 AST 9 ALT 10 Alkaline Phosphatase 128 H Troponin I High Sens 213.2 H* Total Protein 7.2 Albumin 3.7 Lipase 34 TSH 3.10 Urine Color Urine Appearance Urine pH Ur Specific [place] Urine Protein Urine Glucose (UA) Urine Ketones Urine Blood Urine Nitrite Ur Leukocyte Esterase Urine RBC Urine WBC Ur Squamous Epith Cells Urine Bacteria COVID-19 (AYESHA) Negative COVID-19 Clin Com See Note 06/27/21 06/27/21 06/27/21 15:03 15:42 16:40 WBC RBC Hgb Hct MCV MCH MCHC RDW Plt Count MPV Immature Gran % (Auto) Neut % (Auto) Lymph % (Auto) [place] % (Auto) Eos % (Auto) Baso % (Auto) Lymph # (Auto) [place] # (Auto) Eos # (Auto) Baso # (Auto) Abs Immat Gran (auto) Absolute Neuts (auto) Absolute Nucleated RBC Nucleated RBC % (auto) PT INR APTT Sodium Potassium Chloride Carbon Dioxide Anion Gap BUN Creatinine Estim Creat Clear Calc Estimated GFR POC Glucose 291 H Random Glucose Fasting Glucose Calcium Magnesium Total Bilirubin AST ALT Alkaline Phosphatase Troponin I High Sens 221.2 H* Total Protein Albumin Lipase TSH Urine Color YELLOW Urine Appearance CLOUDY Urine pH 7.0 Ur Specific [place] 1.010 Urine Protein 2+ H Urine Glucose (UA) >=1000 H Urine Ketones NEG Urine Blood TRACE Urine Nitrite NEG Ur Leukocyte Esterase 2+ H Urine RBC 1-4 Urine WBC 15-29 H Ur Squamous Epith Cells 3+ Urine Bacteria 3+ COVID-19 (AYESHA) COVID-19 Clin Com 06/27/21 06/27/21 06/27/21 16:42 19:24 22:01 WBC RBC Hgb Hct MCV MCH MCHC RDW Plt Count MPV Immature Gran % (Auto) Neut % (Auto) Lymph % (Auto) [place] % (Auto) Eos % (Auto) Baso % (Auto) Lymph # (Auto) [place] # (Auto) Eos # (Auto) Baso # (Auto) Abs Immat Gran (auto) Absolute Neuts (auto) Absolute Nucleated RBC Nucleated RBC % (auto) PT INR APTT Sodium Potassium Chloride Carbon Dioxide Anion Gap BUN Creatinine Estim Creat Clear Calc Estimated GFR POC Glucose 255 H 281 H 311 H Random Glucose Fasting Glucose Calcium Magnesium Total Bilirubin AST ALT Alkaline Phosphatase Troponin I High Sens Total Protein Albumin Lipase TSH Urine Color Urine Appearance Urine pH Ur Specific [place] Urine Protein Urine Glucose (UA) Urine Ketones Urine Blood Urine Nitrite Ur Leukocyte Esterase Urine RBC Urine WBC Ur Squamous Epith Cells Urine Bacteria COVID-19 (AYESHA) COVID-19 Clin Com 06/28/21 06/28/21 06/28/21 06:01 06:01 08:08 WBC 9.2 RBC 3.11 L Hgb 9.5 L Hct 29.0 L MCV 93.2 MCH 30.5 MCHC 32.8 RDW 14.8 Plt Count 217 MPV 11.8 Immature Gran % (Auto) Neut % (Auto) Lymph % (Auto) [place] % (Auto) Eos % (Auto) Baso % (Auto) Lymph # (Auto) [place] # (Auto) Eos # (Auto) Baso # (Auto) Abs Immat Gran (auto) Absolute Neuts (auto) Absolute Nucleated RBC 0.000 Nucleated RBC % (auto) 0.0 PT INR APTT Sodium 139 Potassium 4.6 Chloride 101 Carbon Dioxide 26 Anion Gap 17 BUN 61 H Creatinine 6.63 H* Estim Creat Clear Calc 10.4 Estimated GFR 6 POC Glucose 31 L* Random Glucose Fasting Glucose 267 H Calcium 9.3 Magnesium 2.4 Total Bilirubin AST ALT Alkaline Phosphatase Troponin I High Sens Total Protein Albumin Lipase TSH Urine Color Urine Appearance Urine pH Ur Specific [place] Urine Protein Urine Glucose (UA) Urine Ketones Urine Blood Urine Nitrite Ur Leukocyte Esterase Urine RBC Urine WBC Ur Squamous Epith Cells Urine Bacteria COVID-19 (AYESHA) COVID-19 Clin Com 06/28/21 08:35 WBC RBC Hgb Hct MCV MCH MCHC RDW Plt Count MPV Immature Gran % (Auto) Neut % (Auto) Lymph % (Auto) [place] % (Auto) Eos % (Auto) Baso % (Auto) Lymph # (Auto) [place] # (Auto) Eos # (Auto) Baso # (Auto) Abs Immat Gran (auto) Absolute Neuts (auto) Absolute Nucleated RBC Nucleated RBC % (auto) PT INR APTT Sodium Potassium Chloride Carbon Dioxide Anion Gap BUN Creatinine Estim Creat Clear Calc Estimated GFR POC Glucose 325 H Random Glucose Fasting Glucose Calcium Magnesium Total Bilirubin AST ALT Alkaline Phosphatase Troponin I High Sens Total Protein Albumin Lipase TSH Urine Color Urine Appearance Urine pH Ur Specific [place] Urine Protein Urine Glucose (UA) Urine Ketones Urine Blood Urine Nitrite Ur Leukocyte Esterase Urine RBC Urine WBC Ur Squamous Epith Cells Urine Bacteria COVID-19 (AYESHA) COVID-19 Clin Com ECG Interpretation: Admission EKG with atrial flutter at 01:12/Min. Cannot exclude old anterior infarct. Previous EKG from March 2021 showed sinus rhythm. Imaging Radiologist's impression: Impressions Chest X-Ray 06/27/21 14:04 IMPRESSION: Similar cardiomegaly without acute pulmonary pathology. Assessment and Plan (1) Atrial flutter with rapid ventricular response: Status: Acute (2) End stage renal disease on dialysis: Status: Acute (3) Elevated troponin: Status: Acute Plan Admission EKG showed atrial flutter with rapid rate but currently she is in sinus rhythm. High sensitivity troponins-213, 221. In March, it was 164. At different times, they have been quite high as much as the 300s. Based on medication reconciliation, she is on metoprolol 25 mg b.i.d.. We can make this 50 mg b.i.d.. Otherwise, she has been initiated anticoagulation. She did mention about falling down but not clear if it is truly a recurrent issue or not. Will need to be followed. Otherwise myocardial perfusion imaging study from March showed possible inferolateral infarct versus diaphragmatic attenuation artifact. Last echocardiogram with LVEF 55-60% with grade 2 diastolic dysfunction and basal inferior/inferoseptal akinesis. Hence based on the above she might have right coronary artery disease. Will need to be followed up in the office to decide further workup, possibly diagnostic catheterization. Procedures Date of Service Date of Service: 06/28/21
[2021-06-28 10:57] LABS: Glucose, Whole Blood 474 mg/dL (60-115)
[2021-06-28] MEDS: Insulin Lispro 100 UNIT/ML 3 ML VIAL SUBCUT ×2 (11:07→16:46)
[2021-06-28] MEDS: diphenhydrAMINE HCL 50 MG/ML VIAL 25 MG IM (11:08)
--- NOTE | 2021-06-28 12:50 | P.PNNP_ITS ---
Subjective Subjective Date of Service: 06/28/21 Principal diagnosis: ESRD Interval history: Seen on HD Feels better No CP Physical Exam Verdana 4l Vital Signs: Verdana 4d Verdana 4d Vital Signs: Verdana 4d Verdana 4Bd Last Vital Signs Verdana 4d Planning Aide New 4d Planning Aide New 4d Temp 97.4 F 06/28/21 08:28 Planning Aide New 4d Pulse 71 06/28/21 08:28 Planning Aide New 4d Resp 18 06/28/21 08:28 BP 166/74 H 06/28/21 08:28 Pulse Ox 98 06/28/21 08:28 BMI result Body Mass Index 36.3 Const General:?no acute distress HENMD Other: Unremarkable Neck Neck:?Yes normal visual inspection Chest Chest palpation & inspection:?normal inspection of the chest Resp Auscultation:?no crackles and no wheezes Cardio Palpation:?normal PMI Heart sounds:?S1 normal heart sound present, S2 normal heart sound present, no gallops, no murmurs and no rubs GI Palpation (GI):?Soft to palpation Back/Spine/Pelvis Other: unremarkable Skin Lesions:?other Neuro Cranial nerves:?Yes Other cranial nerve findings present Extrem General:?Yes other Psych Mental Status:?other Objective Data Labs CBC & Chem 7: 06/28/21 06:01 06/28/21 06:01 Labs: Laboratory Results - last 24 hr 06/27/21 06/27/21 06/27/21 12:45 13:34 13:34 WBC 8.5 RBC 3.28 L Hgb 9.8 L Hct 30.1 L MCV 91.8 MCH 29.9 MCHC 32.6 RDW 14.8 Plt Count 218 D MPV 11.7 Immature Gran % (Auto) 0.9 H Neut % (Auto) 67.6 Lymph % (Auto) 15.2 L [place] % (Auto) 7.8 Eos % (Auto) 7.9 H Baso % (Auto) 0.6 Lymph # (Auto) 1.3 [place] # (Auto) 0.7 Eos # (Auto) 0.7 H Baso # (Auto) 0.1 Abs Immat Gran (auto) 0.08 H Absolute Neuts (auto) 5.7 Absolute Nucleated RBC 0.000 Nucleated RBC % (auto) 0.0 PT 10.7 INR 0.9 APTT 29.8 Sodium Potassium Chloride Carbon Dioxide Anion Gap BUN Creatinine Estim Creat Clear Calc Estimated GFR POC Glucose 406 H* Random Glucose Fasting Glucose Calcium Magnesium Total Bilirubin AST ALT Alkaline Phosphatase Troponin I High Sens Total Protein Albumin Lipase TSH Urine Color Urine Appearance Urine pH Ur Specific [place] Urine Protein Urine Glucose (UA) Urine Ketones Urine Blood Urine Nitrite Ur Leukocyte Esterase Urine RBC Urine WBC Ur Squamous Epith Cells Urine Bacteria COVID-19 (AYESHA) COVID-19 Clin Com 06/27/21 06/27/21 06/27/21 13:34 13:34 13:34 WBC RBC Hgb Hct MCV MCH MCHC RDW Plt Count MPV Immature Gran % (Auto) Neut % (Auto) Lymph % (Auto) [place] % (Auto) Eos % (Auto) Baso % (Auto) Lymph # (Auto) [place] # (Auto) Eos # (Auto) Baso # (Auto) Abs Immat Gran (auto) Absolute Neuts (auto) Absolute Nucleated RBC Nucleated RBC % (auto) PT INR APTT Sodium 138 Potassium 4.3 Chloride 99 Carbon Dioxide 29 Anion Gap 14 BUN 46 H Creatinine 5.06 H* Estim Creat Clear Calc 13.6 Estimated GFR 9 POC Glucose Random Glucose 423 H* Fasting Glucose Calcium 9.6 Magnesium Total Bilirubin 0.6 AST 9 ALT 10 Alkaline Phosphatase 128 H Troponin I High Sens 213.2 H* Total Protein 7.2 Albumin 3.7 Lipase 34 TSH 3.10 Urine Color Urine Appearance Urine pH Ur Specific [place] Urine Protein Urine Glucose (UA) Urine Ketones Urine Blood Urine Nitrite Ur Leukocyte Esterase Urine RBC Urine WBC Ur Squamous Epith Cells Urine Bacteria COVID-19 (AYESHA) Negative COVID-19 Clin Com See Note 06/27/21 06/27/21 06/27/21 15:03 15:42 16:40 WBC RBC Hgb Hct MCV MCH MCHC RDW Plt Count MPV Immature Gran % (Auto) Neut % (Auto) Lymph % (Auto) [place] % (Auto) Eos % (Auto) Baso % (Auto) Lymph # (Auto) [place] # (Auto) Eos # (Auto) Baso # (Auto) Abs Immat Gran (auto) Absolute Neuts (auto) Absolute Nucleated RBC Nucleated RBC % (auto) PT INR APTT Sodium Potassium Chloride Carbon Dioxide Anion Gap BUN Creatinine Estim Creat Clear Calc Estimated GFR POC Glucose 291 H Random Glucose Fasting Glucose Calcium Magnesium Total Bilirubin AST ALT Alkaline Phosphatase Troponin I High Sens 221.2 H* Total Protein Albumin Lipase TSH Urine Color YELLOW Urine Appearance CLOUDY Urine pH 7.0 Ur Specific [place] 1.010 Urine Protein 2+ H Urine Glucose (UA) >=1000 H Urine Ketones NEG Urine Blood TRACE Urine Nitrite NEG Ur Leukocyte Esterase 2+ H Urine RBC 1-4 Urine WBC 15-29 H Ur Squamous Epith Cells 3+ Urine Bacteria 3+ COVID-19 (AYESHA) COVID-19 Clin Com 06/27/21 06/27/21 06/27/21 16:42 19:24 22:01 WBC RBC Hgb Hct MCV MCH MCHC RDW Plt Count MPV Immature Gran % (Auto) Neut % (Auto) Lymph % (Auto) [place] % (Auto) Eos % (Auto) Baso % (Auto) Lymph # (Auto) [place] # (Auto) Eos # (Auto) Baso # (Auto) Abs Immat Gran (auto) Absolute Neuts (auto) Absolute Nucleated RBC Nucleated RBC % (auto) PT INR APTT Sodium Potassium Chloride Carbon Dioxide Anion Gap BUN Creatinine Estim Creat Clear Calc Estimated GFR POC Glucose 255 H 281 H 311 H Random Glucose Fasting Glucose Calcium Magnesium Total Bilirubin AST ALT Alkaline Phosphatase Troponin I High Sens Total Protein Albumin Lipase TSH Urine Color Urine Appearance Urine pH Ur Specific [place] Urine Protein Urine Glucose (UA) Urine Ketones Urine Blood Urine Nitrite Ur Leukocyte Esterase Urine RBC Urine WBC Ur Squamous Epith Cells Urine Bacteria COVID-19 (AYESHA) COVID-19 Clin Com 06/28/21 06/28/21 06/28/21 06:01 06:01 08:08 WBC 9.2 RBC 3.11 L Hgb 9.5 L Hct 29.0 L MCV 93.2 MCH 30.5 MCHC 32.8 RDW 14.8 Plt Count 217 MPV 11.8 Immature Gran % (Auto) Neut % (Auto) Lymph % (Auto) [place] % (Auto) Eos % (Auto) Baso % (Auto) Lymph # (Auto) [place] # (Auto) Eos # (Auto) Baso # (Auto) Abs Immat Gran (auto) Absolute Neuts (auto) Absolute Nucleated RBC 0.000 Nucleated RBC % (auto) 0.0 PT INR APTT Sodium 139 Potassium 4.6 Chloride 101 Carbon Dioxide 26 Anion Gap 17 BUN 61 H Creatinine 6.63 H* Estim Creat Clear Calc 10.4 Estimated GFR 6 POC Glucose 31 L* Random Glucose Fasting Glucose 267 H Calcium 9.3 Magnesium 2.4 Total Bilirubin AST ALT Alkaline Phosphatase Troponin I High Sens Total Protein Albumin Lipase TSH Urine Color Urine Appearance Urine pH Ur Specific [place] Urine Protein Urine Glucose (UA) Urine Ketones Urine Blood Urine Nitrite Ur Leukocyte Esterase Urine RBC Urine WBC Ur Squamous Epith Cells Urine Bacteria COVID-19 (AYESHA) COVID-19 Clin Com 06/28/21 06/28/21 08:35 10:51 WBC RBC Hgb Hct MCV MCH MCHC RDW Plt Count MPV Immature Gran % (Auto) Neut % (Auto) Lymph % (Auto) [place] % (Auto) Eos % (Auto) Baso % (Auto) Lymph # (Auto) [place] # (Auto) Eos # (Auto) Baso # (Auto) Abs Immat Gran (auto) Absolute Neuts (auto) Absolute Nucleated RBC Nucleated RBC % (auto) PT INR APTT Sodium Potassium Chloride Carbon Dioxide Anion Gap BUN Creatinine Estim Creat Clear Calc Estimated GFR POC Glucose 325 H 474 H* Random Glucose Fasting Glucose Calcium Magnesium Total Bilirubin AST ALT Alkaline Phosphatase Troponin I High Sens Total Protein Albumin Lipase TSH Urine Color Urine Appearance Urine pH Ur Specific [place] Urine Protein Urine Glucose (UA) Urine Ketones Urine Blood Urine Nitrite Ur Leukocyte Esterase Urine RBC Urine WBC Ur Squamous Epith Cells Urine Bacteria COVID-19 (AYESHA) COVID-19 Clin Com Procedures Date of Service Date of Service: 06/28/21 Assessment & Plan Assessment and plan (1) End stage renal disease on dialysis: Status: Acute (2) Atrial flutter with rapid ventricular response: Status: Acute Plan ESRD on HD New onset AFIB DM HTN Continue HD today Vol removal as tolerated K per protocol F/u blood sugars Eliquis as per medical team Thx Time Spent With Patient Time: Total time spent is greater than 50% in coordination of care (as documented) at patient's floor/unit and/or counseling patient: Progress Note: Quality Stroke Does the patient have a stroke diagnosis?: No
--- NOTE | 2021-06-28 13:00 | MHC.CM.PN ---
Addendum entered by Ana Cantu 06/28/21 13:58: called the [facility] in [place] and spoke with the pharmacist lauryn the cost for the eliquis after the free 30 day trial card in no cost to the patient . 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 PATIENT LIVES WITH HER SPOUSE IN [place], SHE RE[ORTED THAT SHE IS DISABLED AND [facility] SERVICES 13 HRS WEEKLY AND WOPRKING ON GETTING MORE HOURS , SHE HAS NO VNA CURRENTLY AND DOES NOT FEEL THAT SHE NEEDS ANY, SHE IS ACTIVE WITH THE [facility] AND CONFIRMED WITH PATIENT AND THE [facility], SEE BY DR DORAN TODAY WHILE AT [facility]. SHE REQUIRES ASSSITANCE FROM HER WITH DRESSING AND BATHING M SHE USES AN WALKER FOR AMBULATION SHE [facility] . SHE HAS BEEN VACINATED X3 FOR COVID 19 SHE HAS BEEN DIAGNOSED WITH NEW A-FIB AND WILL BE STARTED ON ELIQUIS I REWIEWD THIS WITH [facility] [place] [place] INTERPERTER AND PATIENT AND GIVEN THE ELIQUIS FREE 30 DAY CARD TO TAKE TO THE PHARMACY DISCHARGE PLAN 1. 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 RESUMPTION OF HER HEMODIALYSIS AT THE /[facility] [address] [facility] [place] [address] [facility] M-W-F AT 11 AM , PATIENT REPORTED HER PROVIDES TRANSPORTATION 6 SELF RESUMPTION OF HER MENTAL HEALTH COUNSELING AT THE [facility] 7. PCP DR MARCELLA PRIDE AT THE [facility] , PLEASE CALL FOR POST HOSPITAL DISCHARGE FOLLOW UP 6. INVERTER AND [address] DR ROBERTS FOR AT 3;15 [address] [facility] 1ST FLOOR [facility] [phone] [facility] PHARMACY CLOSED TODAY SECONDARY TO THE WEATHER , REVIEWED WITH PATIENT OPTIONS FOR OTHER PHARMACIES AND SHE CHOSE THE [facility] [address] [facility] [phone] TO COKE CRANE OPERATOR HER TWO NEW MEDICATIONS , ONE BEING ELIQUIS FOR HER NEW AFIB , EXPLAINED THE IMPORTANCE WITH CONTRACT PROGRAMMER FOR HER TO PICK THIS UP , ALSO EXPLAINED ABOUT THE FREE 30 DAY TRIAL CARD THAT SHE NEEDS TO PRESENT TO THE PHARMACIST OBSERVATION NOTICE EXPLAINED OVER THE PHONE AND GIVEN TO THE PATIENT
--- NOTE | 2021-06-28 14:26 | MHC.CLN ---
NUTRITION PATIENT WITH DIABETES AND ESRD. ON HEMODIALYSIS. THERAPEUTIC DIET MODIFIED FOR DIABETES AND ERSD WITH HEMODIALYSIS. DIET=DIABETIC 1800 KCAL, 2 GRAM SODIUM, LOW POTASSIUM, LOW PHOSPHORUS.
[2021-06-28 16:35] VITALS: BP 171/70; PULSE 68; RESP 18
[2021-06-28] MEDS: SITagliptin Phosphate 25 MG TABLET PO (16:39)
[2021-06-28] MEDS: Atorvastatin Calcium 40 MG TABLET PO (16:39)
[2021-06-28] MEDS: Sevelamer Carbonate Tablet 800 MG TABLET PO (16:39)
[2021-06-28] MEDS: Metoprolol Tartrate 25 MG TABLET PO (16:39)
[2021-06-28] MEDS: Omeprazole 40 MG CAPSULE.DR PO (16:40)
[2021-06-28] MEDS: amLODIPine Besylate 10 MG TABLET PO (16:40)
[2021-06-28 16:41] LABS: Glucose, Whole Blood 175 mg/dL (60-115)
--- NOTE | 2021-06-28 17:16 | PC.NURSE ---
Pt returned from Dialysis at 3:30pm, she was given the medications from this morning that were held due to dialysis earlier today. Blood sugar now 175. Discharge instructions given using an translator/interpreter. Pt verbalizes all instructions given.
--- NOTE | 2021-07-01 11:41 | CONS_ITS ---
DATE OF SERVICE: 06/28/2021 REASON FOR CONSULTATION: Consult requested by the medical team to evaluate and help in manage the patient with ESRD, on hemodialysis, admitted with new-onset atrial fibrillation. HISTORY OF PRESENT ILLNESS: The patient is a 56-year-old female who with past medical history of ESRD on hemodialysis, history of coronary artery disease, obstructive sleep apnea, who was seen by the primary care physician after EKG during preop exam for eye surgery. This showed atrial fibrillation with rapid ventricular rate and the patient was sent to the ER. The patient had no history of atrial fibrillation in the past. There was no chest pain or palpitation. There was some shortness of breath. She was admitted to the hospital and renal consult has been requested for help with management of her ESRD/dialysis. She denies any chest pain. REVIEW OF SYSTEMS: As noted above. Other system review negative. PAST MEDICAL HISTORY: Includes asthma; history of AV fistula placement in the past; coronary artery disease; CHF; chronic cough; chronic low back pain; depression; ESRD, on hemodialysis; hypertension; hyperlipidemia; kidney stones; normocytic anemia; obesity; obesity hypoventilation; osteoarthritis; type 2 diabetes mellitus; urinary frequency. PAST SURGICAL HISTORY: As above plus the patient also has history of bone graft and cholecystectomy and questionable kidney surgery. FAMILY HISTORY: Significant for a history of CVA and diabetes in the father. Mother had diabetes and . The sister has stomach cancer. PERSONAL AND SOCIAL HISTORY: Patient lives at home with her spouse. Does not smoke. Does not drink alcohol. Is disabled. Does not use drugs. PHYSICAL EXAMINATION: GENERAL: Patient is resting in the bed. Awake, alert, is obese, in no significant distress. VITAL SIGNS: Blood pressure was 166/74, pulse 71, afebrile. HEENT: Shows pupils equal bilaterally to light. No jugular venous distention is noted. NECK: Supple. No thyromegaly is noted. CARDIOVASCULAR: S1, S2 without rub. RESPIRATORY: Mildly decreased in the bases. ABDOMEN: Soft, obese, nontender. Bowel sounds normal. EXTREMITIES: Showed trace edema. LABORATORY DATA: Done recently, WBCs were 9.2, hemoglobin 9.5, hematocrit 29, platelets were 217. Sodium 139, potassium 4.6, chloride 101, CO2 26, BUN 61, creatinine 6.63, glucose was 474, calcium 9.3, magnesium 2.4. IMPRESSION: 1. A 56-year-old female with end-stage renal disease, on hemodialysis. 2. New-onset atrial fibrillation. 3. Hypertension. 4. Type 2 diabetes mellitus. 5. Obstructive sleep apnea. RECOMMENDATION: At this juncture, I have arranged hemodialysis for the patient at the inpatient dialysis unit. We will try to remove fluid as tolerated. The patient is being presently managed by the medical team for atrial fibrillation and this is being initiated on apixaban. Patient's hemoglobin level is acceptable. There is no immediate need for erythropoietin needs. Medical management for diabetes as per the medical team. Thank you for allowing me to participate in medical management. MD ROLANDO Conklin/LG / [phone]
== END 2021-06-28 17:45 | disposition home or self-care (01) ==
LOC: HO.ED 15:47 → HO.EDOVER 16:09 → HO.S3 22:58
PROVIDERS: Admitting Provider Internal Medicine; Emergency Provider Emergency Medicine Emergency Medical Services; PCP Internal Medicine; Visit Provider Internal Medicine
DX: N18.6 End stage renal disease (principal); N17.9 Acute kidney failure, unspecified; I48.92 Unspecified atrial flutter; I48.91 Unspecified atrial fibrillation; I44.39 Other atrioventricular block; R00.2 Palpitations; R77.8 Other specified abnormalities of plasma proteins; E11.65 Type 2 diabetes mellitus with hyperglycemia; I25.10 Atherosclerotic heart disease of native coronary artery without angina pectoris; I50.9 Heart failure, unspecified; I10 Essential (primary) hypertension; E78.5 Hyperlipidemia, unspecified; E66.9 Obesity, unspecified; G47.33 Obstructive sleep apnea (adult) (pediatric); Z68.36 Body mass index [BMI] 36.0-36.9, adult; Z20.822 Contact with and (suspected) exposure to COVID-19; Z79.4 Long term (current) use of insulin; Z99.2 Dependence on renal dialysis; Z79.899 Other long term (current) drug therapy
CPT/HCPCS: 36415; 71045; 80048; 80053; 81001; 81003; 82947; 83690; 83735; 84443; 84484; 85025; 85027; 85610; 85730; 87086; 87635; 90999; 93005; 96361; 96372; 96374; 96375; 99218; 99285; J1200

== ENCOUNTER → 2021-07-08 14:58 | Outpatient (BNVA) | payer MEDICAID, SELFPAY | PROVIDERS: PCP Internal Medicine; Referring Provider Internal Medicine; Visit Provider Internal Medicine Cardiovascular Disease | DX: I25.10 Atherosclerotic heart disease of native coronary artery without angina pectoris (principal); R07.9 Chest pain, unspecified | CPT/HCPCS: 93005; 99212 ==

== ENCOUNTER 2021-08-31 10:15 | Outpatient (REF) | payer MEDICAID, SELFPAY ==
[2021-08-31 13:11] LABS: Hematocrit 35.9 % (37.0-47.0); Hemoglobin 11.3 g/dl (12.0-16.0); Mean Corpuscular HGB Conc 31.5 g/dl (31.0-35.0); Mean Corpuscular Hemoglobin 29.6 pg (27.0-33.0); Mean Platelet Volume 13.8 fL (9.4-12.3); Platelet Count 123 X10*3/uL (160-400); Red Blood Count 3.82 X10*6/uL (4.20-5.50); Red Cell Distribution Width 14.3 % (11.0-16.0); White Blood Count 8.5 X10*3/uL (4.8-10.8)
[2021-08-31 13:12] LABS: PLT ABN DIST 1
[2021-08-31 13:26] LABS: Anion Gap 19 (12-20); Blood Urea Nitrogen 32 mg/dL (9-16); Calcium 9.5 mg/dL (8.4-10.2); Carbon Dioxide 23 mmol/L (22-29); Chloride 100 mmol/L (96-108); Estimated Glomerular Filt Rate 9; Glucose Random 305 mg/dL (60-115); Potassium 4.9 mmol/L (3.3-5.1); Sodium 137 mmol/L (135-145)
== END 2021-08-31 10:16 | disposition home or self-care (01) ==
LOC: HO.LAB 10:15
PROVIDERS: PCP Internal Medicine; Visit Provider Internal Medicine Cardiovascular Disease
DX: I25.10 Atherosclerotic heart disease of native coronary artery without angina pectoris (principal)
CPT/HCPCS: 36415; 80048; 85027; 85610

== ENCOUNTER 2021-09-08 12:49 | Emergency (ER) | payer MEDICAID, SELFPAY ==
[2021-09-08 13:08] VITALS: BP 152/59; PULSE 63; RESP 18; TEMP 36.2; O2SAT 98; BMI 36.6
[2021-09-08] MEDS: oxyCODONE HCl Immed Release 5 MG TABLET PO (15:11)
[2021-09-08] MEDS: Lidocaine HCl 1 % 20 ML VIAL 10 ML INFILTRATI (15:12)
--- NOTE | 2021-09-08 15:41 | ED_ITS ---
HPI - Skin/Abscess/Foreign Bdy General Chief complaint: Skin/Abscess/Foreign Body Stated complaint: ABSCESS Time Seen by Provider: 09/08/21 14:53 Source: patient Mode of arrival: ambulatory Limitations: no limitations and language barrier History of Present Illness HPI narrative: 56-year-old Greenlandic-speaking female with a past medical history of a flutter with RVR, end-stage renal disease on dialysis, coronary artery disease, heart failure, obstructive sleep apnea, diabetes, obesity, hypertension, hyperlipidemi a, presents for multiple abscesses in her vulvar area. She noticed them 3 days ago. She says it is very painful and hard to sit, the pain is throbbing. No fevers. Related Data Home Medications Medication Instructions Recorded Confirmed ergocalciferol (vitamin D2) 1,250 1 cap PO MAR 02/12/21 06/27/21 mcg (50,000 unit) capsule gabapentin 100 mg capsule 200 mg PO BID 02/12/21 06/27/21 hydralazine 50 mg tablet 1 tab PO TID@0900,1200,1800 02/12/21 06/27/21 levothyroxine 25 mcg tablet 1 tab PO QAM 02/12/21 06/27/21 melatonin 5 mg tablet 1 tab PO BEDTIME 02/12/21 06/27/21 sitagliptin 25 mg tablet (Januvia) 1 tab PO QAM 02/12/21 06/27/21 atorvastatin 40 mg tablet 40 mg PO DAILY 02/26/21 06/27/21 omeprazole 40 mg capsule,delayed 40 mg PO DAILY 02/26/21 06/27/21 release sevelamer carbonate 800 mg tablet 800 mg PO TIDAC tab 02/26/21 06/27/21 insulin glargine U-300 conc 300 20 unit SUBCUT DAILY 06/27/21 06/27/21 unit/mL (3 mL) subcutaneous pen (Toujeo Max U-300 SoloStar) insulin lispro 100 unit/mL See Rx Instructions .ROUTE .COMPLEX 06/27/21 06/27/21 subcutaneous pen (Humalog KwikPen (U-100) Insulin) Previous Rx's Medication Instructions Recorded blood-glucose meter (FreeStyle #1 ea 04/24/21 Lite Meter) blood sugar diagnostic (FreeStyle #100 ea 05/29/21 Lite Strips) lancets 28 gauge (FreeStyle #100 ea 05/29/21 Lancets) pen needle, diabetic 32 gauge x #150 ea 06/13/2105/28 (BD Ultra-Fine Micro Pen Needle) metoprolol tartrate 50 mg tablet 50 mg PO Q12H #60 tab 06/28/21 amlodipine 10 mg tablet 10 mg PO QAM 90 Days #90 tab 08/02/21 apixaban 5 mg tablet (Eliquis) 5 mg PO BID 90 Days #180 tab 08/02/21 lisinopril 10 mg tablet 10 mg PO BEDTIME 90 Days #90 tab 08/02/21 doxycycline hyclate 100 mg tablet 100 mg PO BID 10 Days #20 tab 09/08/21 oxycodone 5 mg capsule 5 mg PO Q8H PRN 3 Days #9 cap 09/08/21 Allergies Allergy/AdvReac Type Severity Reaction Status Date / Time No Known Allergies Allergy Verified 07/08/21 15:13 [No Known Allergies*] Review of Systems Constitutional: Constitutional: Denies body ache(s), Denies chills, Denies fatigue, Denies fever(s), Denies headache(s), Denies malaise and Denies weakness Eyes: Eyes: Denies diplopia ENT: Denies vertigo, Denies dizziness, Denies headache(s) and Denies throat swelling Cardiovascular: Cardiovascular: Denies chest pain, Denies syncope, Denies leg edema, Denies lightheadedness, Denies Loss of Consciousness, Denies palpitations and Denies dyspnea Respiratory: Respiratory: Denies chest congestion, Denies cough and Denies dyspnea Gastrointestinal: Gastrointestinal: Denies abdominal pain, Denies hematochezia, Denies constipation, Denies diarrhea and Denies vomiting Musculoskeletal: Musculoskeletal: Reports no additional musculoskeletal complaints Integumentary/Breasts: Skin/Breast: Reports furuncle, Reports erythema, Reports skin pain and Reports skin swelling Neurologic: Denies confusion, Denies vertigo, Denies dizziness, Denies syncope, Denies headache(s) and Denies weakness Psychiatric: Psychiatric: Denies anxiety, Denies confusion and Denies depression Endocrine: Endocrine: Denies fatigue and Denies palpitations Allergic/Immunologic: Allergic/Immunologic: Denies throat swelling PMFSH Past Medical History Medical History Asthma AV fistula CAD (coronary artery disease) CHF (congestive heart failure) Chronic cough Chronic low back pain without sciatica Depression Dialysis patient Dysphonia Dyspnea on exertion ESRD (end stage renal disease) ESRD needing dialysis GERD (gastroesophageal reflux disease) HLD (hyperlipidemia) HTN (hypertension) Kidney stones Normocytic anemia Obesity due to excess calories Osteoarthritis of both knees Renal failure (ARF), acute on chronic T2DM (type 2 diabetes mellitus) Thyroid disease Unstable gait Urinary frequency Surgical History History of kidney surgery Hx of bone graft Hx of cholecystectomy Family History Family History Father CVD (cardiovascular disease) Diabetes Mother Diabetes Sister Stomach cancer Social History Social History Household Members: Spouse Housing: House Do you presently have visiting nurse or other home services: No Alcohol intake: never Patient Tobacco Use Status: Never used Tobacco Advance Directives: Yes Advance Directives on File: Yes Advance Directives Date on File: 02/15/21 Patient : No service: No Current occupational status: disabled Physical Exam Vital Signs: Vital Signs: Last Vital Signs Temp 97.2 F 09/08/21 13:08 Pulse 63 09/08/21 13:08 Resp 18 09/08/21 13:08 BP 152/59 H 09/08/21 13:08 Pulse Ox 98 09/08/21 13:08 BMI result Body Mass Index 36.6 Const: General: alert and awake; No confusion Nutritional Appearance: obese morbidly obese Orientation/consciousness: patient oriented x3 and No confusion Limitations: language barrier Eyes: Conjunctivae: conjunctivae normal Pupils: Equal, round and reactive pupils present EOM: EOMs intact bilaterally Neck: Neck: Yes full ROM, Yes no lymphadenopathy and Yes supple Resp: Effort & Inspection: normal respiratory effort and able to speak in complete sentences Auscultation: clear to auscultation bilaterally, no crackles, no rales, no rhonchi and no wheezes Cardio: Rate: regular rate Rhythm: regular rhythm Heart sounds: S1 no rmal heart sound present and S2 normal heart sound present GI: Inspection: Yes normal to inspection Palpation (GI): Soft to palpation, nontender, no guarding and not rigid Percussion: Yes normal to percussion Auscultation: normal bowel sounds : Female genitals images: 1. Red indurated area 2. Red indurated swollen area 3. Red indurated swollen area 4. Developing abscess 5. Developing abscess Skin: Other: Multiple indurated red abscesses on patient's vulva Neuro: General: patient oriented x3 and No confusion Cranial nerves: Yes Equal, round and reactive pupils present Extrem: General: Yes normal to inspection and Yes full ROM Psych: Appearance: grossly normal Affect: normal affect Attitude: cooperative Thought process: Normal thought process present Course Course Course Narrative: 56-year-old female with multiple comorbidities presents for multiple abscesses o n vulvar area. I attempted incision and drainage, areas were indurated, no pus was able to be expressed. Place patient on doxycycline, gave pain medication, referred patient to surgeon. Counseled Sitz baths. Gave return precautions of fever, worsening pain, nausea vomiting, any other new or concerning symptoms Procedures Abscess I/D Site: other (Vulvar) Local Anesthetic: lidocaine 1% Amount of anesthesia used (mL): 10 Technique: incised with blade Amount of fluid expressed (mL): 0 Sent for culture/gram staining?: Yes Irrigation: No Packing used?: none Discharge Plan Discharge Clinical Impression: Abscess Patient Disposition: Home, Self-Care Additional Instructions: Please call the surgeon is the following number on Thursday for follow-up wm ointment: [phone] I have referred you to them, they should be calling you also. Please start your antibiotic today and take it as prescribed. Please set in warm clean bath water for 10 or 15 minutes 3 times a day. Take pain medicine as prescribed as needed. If you have fevers, worsening pain, or any other new or concerning symptoms please return to emergency room. Prescriptions: New doxycycline hyclate 100 mg tablet 100 mg PO BID 10 Days Qty: 20 0RF oxycodone 5 mg capsule 5 mg PO Q8H PRN (Reason: pain) 3 Days Qty: 9 0RF No Action (DME) blood-glucose meter [FreeStyle Lite Meter] Kit See Rx Instructions .ROUTE .MEDSUPPLY Qty: 1 0RF Rx Instructions: As directed (DME) FreeStyle Lite Strips Strip See Rx Instructions .ROUTE .MEDSUPPLY Qty: 100 11RF Rx Instructions: As directed four times a day (DME) lancets [FreeStyle Lancets] 28 gauge misc See Rx Instructions .ROUTE .MEDSUPPLY Qty: 100 11RF Rx Instructions: As directed four times a day amlodipine 10 mg tablet 10 mg PO QAM 90 Days Qty: 90 3RF Eliquis 5 mg tablet 5 mg PO BID 90 Days Qty: 180 3RF lisinopril 10 mg tablet 10 mg PO BEDTIME 90 Days Qty: 90 3RF levothyroxine 25 mcg tablet 1 tab PO QAM 0RF hydralazine 50 mg tablet 1 tab PO TID@0900,1200,1800 0RF gabapentin 100 mg capsule 200 mg PO BID 0RF ergocalciferol (vitamin D2) 1,250 mcg (50,000 unit) capsule 1 cap PO MAR 0RF Januvia 25 mg tablet 1 tab PO QAM 0RF melatonin 5 mg tablet 1 tab PO BEDTIME 0RF atorvastatin 40 mg tablet 40 mg PO DAILY 0RF omeprazole 40 mg capsule,delayed release(DR/EC) 40 mg PO DAILY 0RF sevelamer carbonate 800 mg tablet 800 mg PO TIDAC 0RF insulin lispro [Humalog KwikPen Insulin] 100 unit/mL insulin pen See Rx Instructions .ROUTE .COMPLEX 0RF Rx Instructions: SLIDING SCALE Toujeo Max U-300 SoloStar 300 unit/mL (3 mL) insulin pen 20 unit subcut DAILY 0RF Rx Instructions: BASED ON GLUCOSE LEVEL metoprolol tartrate 50 mg tablet 50 mg PO Q12H Qty: 60 0RF (DME) pen needle, diabetic [BD Ultra-Fine Micro Pen Needle] 32 gauge x 1/4 needle See Rx Instructions .ROUTE .MEDSUPPLY Qty: 150 11RF Rx Instructions: As directed 4 times a day Referrals: Fede Mackay MD [Physician] - Interventions: ED Discharge Assessment Last Done: 09/08/21 16:15 Discharge Date/Time: 09/08/21 16:17
--- NOTE | 2021-09-08 16:02 | PC.NURSE ---
Applied abdominal dressing bilateral to groin area after procedure by provider secured with hospital undergarments . patient tolerated well . She communicated feeling sick to her stomach after procedure , provider aware and medicated with ordered zofran.
[2021-09-08] MEDS: Ondansetron ODT 4 MG TAB.RAPDIS TRANSLINGU (16:12)
== END 2021-09-08 16:17 | disposition home or self-care (01) ==
PROVIDERS: Emergency Provider Emergency Medicine; PCP Internal Medicine
DX: N76.4 Abscess of vulva (principal); I13.2 Hypertensive heart and chronic kidney disease with heart failure and with stage 5 chronic kidney disease, or end stage renal disease; E11.22 Type 2 diabetes mellitus with diabetic chronic kidney disease; N18.6 End stage renal disease; I50.9 Heart failure, unspecified; I25.10 Atherosclerotic heart disease of native coronary artery without angina pectoris; Z99.2 Dependence on renal dialysis
CPT/HCPCS: 10061; 99283; 99284

== ENCOUNTER → 2021-09-12 10:09 | Outpatient (BNVA) | payer MEDICAID, SELFPAY | PROVIDERS: PCP Internal Medicine; Referring Provider Internal Medicine; Visit Provider Surgery | DX: E11.65 Type 2 diabetes mellitus with hyperglycemia (principal); E11.22 Type 2 diabetes mellitus with diabetic chronic kidney disease; I12.9 Hypertensive chronic kidney disease with stage 1 through stage 4 chronic kidney disease, or unspecified chronic kidney disease; N18.6 End stage renal disease; E78.5 Hyperlipidemia, unspecified; Z79.84 Long term (current) use of oral hypoglycemic drugs; Z79.4 Long term (current) use of insulin | CPT/HCPCS: 99202; 99212 ==

== ENCOUNTER 2021-10-12 14:47 | Inpatient (IN) | payer MEDICAID, SELFPAY ==
[2021-10-12 15:09] VITALS: BP 120/45; PULSE 63; RESP 16; TEMP 35.9; O2SAT 99; BMI 36.3
--- NOTE | 2021-10-12 15:16 | ED.SKABFB ---
HPI - Skin/Abscess/Foreign Bdy General Chief complaint: Skin/Abscess/Foreign Body Stated complaint: abscess near private area Time Seen by Provider: 10/12/21 15:14 Source: patient, family and staff interpreter Mode of arrival: ambulatory Limitations: no limitations History of Present Illness HPI narrative: 56-year-old female with history of ESRD on HD, CAD, CHF, AFib, diabetes, HTN, HLD who presents to the ER for re-evaluation of painful abscesses to her inguinal area. She was seen in the ER for the same on September 08, incision and drainage was attempted but no purulent material was able to be expressed. She was started on doxycycline and referred to general surgery for further evaluation. She saw Dr. Mackay in the office on September 12, chlorhexidine scrub was added with plan to follow up with him in the office in 1 week however she was never re-evaluated. She reports the antibiotics helped but as soon as she came off of them she noticed the abscesses started to return. She spoke with her doctor today who instructed her to come to the ER for further evaluation. She reports they are increasing lesions, approximately 6 now that her tender and painful. She reports adequate glucose at home, in the 130 range. She had dialysis today and completed the entire session. MD complaint: abscess/boil Onset (ago): month(s) (1) Location: genitals Severity: severe Severity scale (1-10): 10 Quality: stabbing and aching Pain Consistency: constant Relieving factors: immobilization and rest Exacerbating factors: palpation and movement Context: recent antibiotic Treatments prior to arrival: none Related Data Home Medications Medication Instructions Recorded Confirmed ergocalciferol (vitamin D2) 1,250 1 cap PO MAR 02/12/21 09/12/21 mcg (50,000 unit) capsule gabapentin 100 mg capsule 200 mg PO BID 02/12/21 09/12/21 hydralazine 50 mg tablet 1 tab PO TID@0900,1200,1800 02/12/21 09/12/21 levothyroxine 25 mcg tablet 1 tab PO QAM 02/12/21 09/12/21 melatonin 5 mg tablet 1 tab PO BEDTIME 02/12/21 09/12/21 atorvastatin 40 mg tablet 40 mg PO DAILY 02/26/21 09/12/21 omeprazole 40 mg capsule,delayed 40 mg PO DAILY 02/26/21 09/12/21 release sevelamer carbonate 800 mg tablet 800 mg PO TIDAC tab 02/26/21 09/12/21 insulin lispro 100 unit/mL See Rx Instructions .ROUTE .COMPLEX 06/27/21 09/12/21 subcutaneous pen (Humalog KwikPen (U-100) Insulin) clotrimazole 2 % vaginal cream 1 appful VAGINAL BEDTIME 09/12/21 09/12/21 (3-Day Vaginal) metronidazole 500 mg tablet 500 mg PO Q12H 09/12/21 09/12/21 Previous Rx's Medication Instructions Recorded blood-glucose meter (FreeStyle #1 ea 04/24/21 Lite Meter) blood sugar diagnostic (FreeStyle #100 ea 05/29/21 Lite Strips) lancets 28 gauge (FreeStyle #100 ea 05/29/21 Lancets) pen needle, diabetic 32 gauge x #150 ea 06/13/21/ (BD Ultra-Fine Micro Pen Needle) metoprolol tartrate 50 mg tablet 50 mg PO Q12H #60 tab 06/28/21 amlodipine 10 mg tablet 10 mg PO QAM 90 Days #90 tab 08/02/21 apixaban 5 mg tablet (Eliquis) 5 mg PO BID 90 Days #180 tab 08/02/21 lisinopril 10 mg tablet 10 mg PO BEDTIME 90 Days #90 tab 08/02/21 doxycycline hyclate 100 mg tablet 100 mg PO BID 10 Days #20 tab 09/08/21 oxycodone 5 mg capsule 5 mg PO Q8H PRN 3 Days #9 cap 09/08/21 chlorhexidine gluconate 4 % 1 appl TOPICAL .COMPLEX 30 Days 09/12/21 topical liquid (Hibiclens) #473 ml insulin glargine U-300 conc 300 28 unit (0.0933 mL) SUBCUT DAILY 09/12/21 unit/mL (3 mL) subcutaneous pen 30 Days #6 ml (Toujeo Max U-300 SoloStar) sitagliptin 25 mg tablet (Januvia) 25 mg PO QAM #30 tab 09/16/21 cephalexin 500 mg capsule 500 mg PO BID 10 Days #20 cap 10/12/21 doxycycline hyclate 100 mg tablet 100 mg PO BID #28 tab 10/12/21 oxycodone 5 mg tablet 5 mg PO TID PRN #10 tab 10/12/21 Allergies Allergy/AdvReac Type Severity Reaction Status Date / Time No Known Allergies Allergy Verified 09/12/21 14:01 [No Known Allergies*] Review of Systems Review of Systems: Constitutional: No Fever, No Chills ENT/Mouth: No sore throat, No Rhinorrhea, No Swallowing Difficulty Cardiovascular: No Chest Pain, No SOB, No Orthopnea, No Edema Respiratory: No Cough, No Sputum, No Wheezing, No dyspnea Gastrointestinal: No Nausea, No Vomiting, No Diarrhea, No abdominal Pain Musculoskeletal: No joint pain, No Myalgias Skin: + Skin Lesions, No rash Neuro: No Weakness, No Numbness, No Dizziness, No Headache Psych: +Anxiety/Panic, No Depression Heme/Lymph: No Bruising, No Lymphadenopathy PMFSH Past Medical History Medical History Asthma AV fistula CAD (coronary artery disease) CHF (congestive heart failure) Chronic cough Chronic low back pain without sciatica Depression Dialysis patient Dysphonia Dyspnea on exertion ESRD (end stage renal disease) ESRD needing dialysis GERD (gastroesophageal reflux disease) HLD (hyperlipidemia) HTN (hypertension) Kidney stones Normocytic anemia Obesity due to excess calories Osteoarthritis of both knees Renal failure (ARF), acute on chronic T2DM (type 2 diabetes mellitus) Thyroid disease Unstable gait Urinary frequency Surgical History History of kidney surgery Hx of bone graft Hx of cholecystectomy Family History Family History Father CVD (cardiovascular disease) Diabetes Mother Diabetes Sister Stomach cancer Social History Social History Household Members: Spouse Housing: House Do you presently have visiting nurse or other home services: No Alcohol intake: never Patient Tobacco Use Status: Never used Tobacco Advance Directives: Yes Advance Directives on File: Yes Advance Directives Date on File: 02/15/21 service: No Current occupational status: disabled Physical Exam Vital Signs: Vital Signs: Last Vital Signs Temp 96.6 F L 10/12/21 15:09 Pulse 63 10/12/21 15:09 Resp 16 10/12/21 15:09 BP 120/45 L 10/12/21 15:09 Pulse Ox 99 10/12/21 15:09 BMI result Body Mass Index 36.3 Appearance: Alert. Oriented X3. appears to be in pain HEENT: normal external inspection Neck: Normal inspection. CVS: Normal heart rate and rhythm. Pulses normal. Respiratory: No respiratory distress. Breath sounds normal. Abdomen: Obese, Soft and nontender. +BS x4 : external genitalia with several swollen tender, indurated and erythematous areas consistnet with carbuncles, 4 notible areas - 1 in left upper pubic area with yellowish discharge, moderate size, 1 small one on left lateral labia, 1 cluster on right upper labia and cluster on right inguinal area. extremely tender to touch. Skin: Skin warm and dry. Normal skin color. Normal skin turgor. No rashes. Extremities: No lower extremity edema. Neuro: Oriented X 3, grossly normal, nonfocal Course Course Course Narrative: 56-year-old female with history of diabetes, CAD, end-stage renal disease on dialysis, aflutter, CHF, coming in with recurrent abscesses to her inguinal and vulvar areas. She has had the lesion since August and they were starting to resolve with doxycycline for presumed MRSA infection. After she stops antibiotics she had recurrence of the lesions and has increasing pain in the area. She denies fever or chills. There is some central fluctuance on the larger abscess in her left upper pubic area will in temp to incise and drain. Topical LMX applied for comfort. Will start oral antibiotics for broad coverage, send culture and HSV culture as well given cluster like appearance in the right inguinal region. Reevaluation(s) Reevaluation #1: Patient did not tolerate incision and drainage, areas were mostly indurated and unable to express pus except for the lesion in the left upper pubic area. She reports ongoing severe pain. The patient's would like her to be admitted for pain control and IV antibiotics. She is afebrile. We discussed checking basic lab workup to assess if she has leukocytosis or significantly elevated inflammatory markers. Will check her glucose. If she has range labs she may benefit from admission. If her labs are stable she most likely will require oral antibiotic coverage, pain control home and close outpatient follow-up with her doctor and Dr. Mackay for wound monitoring. She is not septic at this time. Reevaluation #2: Patient is an extremely difficult stick. Delay and lab workup. Multiple staff members attempted with a 22 gauge peripheral IV placed in the upper arm but any able to draw blood off of. Phlebotomy paged. MDM - Skin/Abscess/Foreign Bdy Lab Data Labs: Lab Results 10/12/21 10/12/21 Range/Units 15:50 16:50 POC Glucose 371 H* (60-115) mg/dL COVID-19 ([facility]) Negative (Negative) COVID-19 Clin Com See Note Procedures Abscess I/D Site: other (external genitalia) Side (if applicable): left Sedation/analgesia: other Local Anesthetic: other anesthetic (LMX) Technique: incised with blade Amount of fluid expressed (mL): 5 Sent for culture/gram staining?: Yes Irrigation: Yes Packing used?: none Complications: pain Discharge Plan Discharge Clinical Impression: Abscess of multiple sites, Hyperglycemia Patient Disposition: Home, Self-Care Instructions: Abscess (ED) Additional Instructions: Take the prescribed antibiotics as directed. On dialysis days take them after dialysis Follow-up with Dr. Mackay the general surgeon for monitoring and further evaluation of your wounds. Also recommend following up at the [facility], naming number below. It is important that you have tight glucose control at home. Monitor blood sugar 4 times per day Follow-up with your doctor on Thursday Take the prescribed medication as needed for severe pain. Also recommend Tylenol 1000 mg every 6 hours around the clock. Use warm soaks to the area several times per day. Use anti microbial soap. Keep area dry and free of moisture. If you develop new or worsening symptoms call 911 or come back to the ER for further evaluation. Prescriptions: New doxycycline hyclate 100 mg tablet 100 mg PO BID Qty: 28 0RF cephalexin 500 mg capsule 500 mg PO BID 10 Days Qty: 20 0RF oxycodone 5 mg tablet 5 mg PO TID PRN (Reason: severe pain (scale score 7-10)) Qty: 10 0RF No Action (DME) blood-glucose meter [FreeStyle Lite Meter] Kit See Rx Instructions .ROUTE .MEDSUPPLY Qty: 1 0RF Rx Instructions: As directed (DME) FreeStyle Lite Strips Strip See Rx Instructions .ROUTE .MEDSUPPLY Qty: 100 11RF Rx Instructions: As directed four times a day (DME) lancets [FreeStyle Lancets] 28 gauge misc See Rx Instructions .ROUTE .MEDSUPPLY Qty: 100 11RF Rx Instructions: As directed four times a day amlodipine 10 mg tablet 10 mg PO QAM 90 Days Qty: 90 3RF Eliquis 5 mg tablet 5 mg PO BID 90 Days Qty: 180 3RF lisinopril 10 mg tablet 10 mg PO BEDTIME 90 Days Qty: 90 3RF Januvia 25 mg tablet 25 mg PO QAM Qty: 30 6RF levothyroxine 25 mcg tablet 1 tab PO QAM 0RF hydralazine 50 mg tablet 1 tab PO TID@0900,1200,1800 0RF gabapentin 100 mg capsule 200 mg PO BID 0RF ergocalciferol (vitamin D2) 1,250 mcg (50,000 unit) capsule 1 cap PO MAR 0RF melatonin 5 mg tablet 1 tab PO BEDTIME 0RF atorvastatin 40 mg tablet 40 mg PO DAILY 0RF omeprazole 40 mg capsule,delayed release(DR/EC) 40 mg PO DAILY 0RF sevelamer carbonate 800 mg tablet 800 mg PO TIDAC 0RF insulin lispro [Humalog KwikPen Insulin] 100 unit/mL insulin pen See Rx Instructions .ROUTE .COMPLEX 0RF Rx Instructions: SLIDING SCALE metoprolol tartrate 50 mg tablet 50 mg PO Q12H Qty: 60 0RF doxycycline hyclate 100 mg tablet 100 mg PO BID 10 Days Qty: 20 0RF oxycodone 5 mg capsule 5 mg PO Q8H PRN (Reason: pain) 3 Days Qty: 9 0RF (DME) pen needle, diabetic [BD Ultra-Fine Micro Pen Needle] 32 gauge x 1/4 needle See Rx Instructions .ROUTE .MEDSUPPLY Qty: 150 11RF Rx Instructions: As directed 4 times a day 3-Day Vaginal 2 % cream 1 appful vaginal BEDTIME 0RF metronidazole 500 mg tablet 500 mg PO Q12H 0RF Toujeo Max U-300 SoloStar 300 unit/mL (3 mL) insulin pen 28 unit subcut DAILY 30 Days Qty: 6 6RF chlorhexidine gluconate [Hibiclens] 4 % liquid 1 appl topical .COMPLEX 30 Days Qty: 473 2RF Rx Instructions: 1 appl topical qod; lather in shower, leave on one minute before rinsing off. Referrals: [facility] [Provider Group] (Inguinal and external genitalia abscesses) Fede Mackay MD [Physician] - (Multiple inguinal and genital abscesses)
[2021-10-12] MEDS: oxyCODONE HCl Immed Release 5 MG TABLET PO (15:37)
[2021-10-12] MEDS: Lidocaine 4 % Cream KIT 1 APPL TOPICAL (15:38)
[2021-10-12] MEDS: cephALEXin 500 MG CAPSULE PO (15:38)
[2021-10-12 15:55] LABS: Glucose, Whole Blood 371 mg/dL (60-115)
[2021-10-12 17:15] LABS: COVID-19 Test Negative (Negative)
[2021-10-12] MEDS: Insulin Lispro 100 UNIT/ML 3 ML VIAL 12 UNIT SUBCUT (18:18)
[2021-10-12 18:47] LABS: Basophils Percent Auto 0.3 % (0-2); PLT CLUMP 1; Red Blood Count 2.72 X10*6/uL (4.20-5.50); SCAN SMEAR FLAG 1
[2021-10-12 18:49] LABS: Eosinophils Absolute Auto 0.8 X10*3/uL (0.0-0.4); Hematocrit 24.7 % (37.0-47.0); Hemoglobin 8.3 g/dl (12.0-16.0); Imm Gran Abs Auto 0.06 X10*3/uL (0.00-0.03); Imm Gran Pct Auto 0.5 % (0.0-0.4); Lymphocytes Absolute Auto 1.4 X10*3/uL (1.2-4.9); Lymphocytes Percent Auto 11.6 % (20-40); MANUAL DIFF FLAG SCAN; Mean Corpuscular HGB Conc 33.6 g/dl (31.0-35.0); Mean Corpuscular Hemoglobin 30.5 pg (27.0-33.0); Mean Corpuscular Volume 90.8 fL (80.0-98.0); Monocytes Absolute Auto 0.8 X10*3/uL (0.1-1.2); Monocytes Percent Auto 6.7 % (2-11); Neutrophils Absolute Auto 9.3 x10*3/uL (2.0-8.3); Neutrophils Percent Auto 74.9 % (45-73); Red Cell Distribution Width 13.7 % (11.0-16.0)
[2021-10-12 18:58] LABS: Lactic Acid 1.8 mmol/L (0.5-2.0)
[2021-10-12 19:06] LABS: Anion Gap 17 (12-20); Blood Urea Nitrogen 32 mg/dL (9-16); C Reactive Protein 8.89 mg/dL (< or = 0.50); Calcium 8.9 mg/dL (8.4-10.2); Carbon Dioxide 27 mmol/L (22-29); Chloride 96 mmol/L (96-108); Creatinine Clr Calc Pharmacy 14.2; Estimated Glomerular Filt Rate 9; Glucose Random 275 mg/dL (60-115); Potassium 3.7 mmol/L (3.3-5.1); Sodium 136 mmol/L (135-145)
[2021-10-12 19:07] LABS: Platelet Count 135 X10*3/uL (160-400); White Blood Count 12.4 X10*3/uL (4.8-10.8)
[2021-10-12 19:08] LABS: SLIDE REVIEW VERIFIED
[2021-10-12 19:21] LABS: Erythrocyte Sedimentation Rate 115 MM/HR (0-20)
[2021-10-12] MEDS: diphenhydrAMINE HCL 50 MG/ML VIAL 25 MG IVPUSH (19:28)
--- NOTE | 2021-10-12 19:37 | PM.IMHP ---
History of Present Illness Date of Service: 10/12/21 Chief Complaint: wound 56-year-old female with a past medical history of hypertension, hyperlipidemia, diabetes, CAD, CHF, ESRD on hemodialysis, history of kidney stones, obesity, osteoarthritis, thyroid disease, anxiety, depression, asthma, av fistula presented to the hospital with a chief complaint of inguinal wounds. Patient reports that she had his infection in her inguinal wounds about a month ago; finished course of antibiotics; since last RTC noted to have increased pain and tenderness in her wounds in the inguinal and labial area. Complains of subjective fevers. Reports she had discharge when they wounds were pressed in the ER. Denies any numbness tingling or focal weakness. Denies any GI symptoms. Review of all other systems is negative except mentioned above ER course: Per ER team patient noted to have labile and inguinal wounds; given patient failed outpatient therapy concern for worsening infection and wanted to admit the patient for IV antibiotics. [facility] Medical History Asthma AV fistula CAD (coronary artery disease) CHF (congestive heart failure) Chronic cough Chronic low back pain without sciatica Depression Dialysis patient Dysphonia Dyspnea on exertion End stage renal disease on dialysis ESRD (end stage renal disease) ESRD needing dialysis GERD (gastroesophageal reflux disease) HLD (hyperlipidemia) HTN (hypertension) Kidney stones Normocytic anemia Obesity due to excess calories Osteoarthritis of both knees Renal failure (ARF), acute on chronic T2DM (type 2 diabetes mellitus) Thyroid disease Unstable gait Urinary frequency Family History Father CVD (cardiovascular disease) Diabetes Mother Diabetes Sister Stomach cancer Surgical History History of kidney surgery Hx of bone graft Hx of cholecystectomy Social History Household Members: Spouse and Family Housing: House Do you presently have visiting nurse or other home services: No Unable to assess alcohol history related to: Unknown Alcohol intake: never Patient Tobacco Use Status: Never used Tobacco Advance Directives Date on File: 02/15/21 service: No Current occupational status: disabled Meds Allergies Allergy/AdvReac Type Severity Reaction Status Date / Time No Known Allergies Allergy Verified 11/14/21 13:44 [No Known Allergies*] Active Medications: Current Medications Acetaminophen (Acetaminophen 325 Mg Tablet) 650 mg PO Q6H PRN PRN Reason: Pain, Mild (Pain Scale 1-3) Dextrose (Dextrose 50 % 25 Gm/50 Ml Syringe) 25 gm IVPUSH Q15M PRN; Protocol PRN Reason: per Hypoglycemia Standing Ord. Glucose (Glucose Gel 15 Gm Gel..Gram.) 15 gm PO Q15M PRN; Protocol PRN Reason: per Hypoglycemia Standing Ord. Vancomycin HCl 1,000 mg/ (Sodium Chloride) 270 mls @ 270 mls/hr IV Q12H [facility] Piperacillin Sod/Tazobactam (Sod 2.25 gm/ Sodium Chloride) 50 mls @ 100 mls/hr IV Q12H [facility] Insulin Glargine (Insulin Glargine,Hum.Rec.Anlog 100 Unit/Ml 10 Ml Vial) 10 unit SUBCUT BEDTIME [facility] Insulin Human Lispro (Insulin Lispro 100 Unit/Ml 3 Ml Vial) 0 unit SUBCUT QIDACHS [facility]; Protocol Melatonin (Melatonin 3 Mg Tablet) 6 mg PO BEDTIME PRN PRN Reason: Insomnia Pharmacy Consult (Consult Rx Vancomycin Dosing) 1 each MISCELLANE DAILY PRN PRN Reason: Consult order Pharmacy Consult (Consult Rx Perform Med Rec) 1 each MISCELLANE ONCE STA Stop: 10/12/21 19:36 Senna (Sennosides 8.6 Mg Tablet) 17.2 mg PO BEDTIME PRN PRN Reason: Constipation Sodium Chloride (0.9 % Sodium Chloride Flush 3 Ml Syringe) 3 ml IVFLUSH QSHIFT [facility] Home Medications Medication Instructions Recorded Confirmed Last Taken Type gabapentin 100 mg capsule 200 mg PO BID neuropathic pain 02/12/21 10/20/21 06/27/21 History hydralazine 50 mg tablet 1 tab PO TID@0900,1200,1800 blood 02/12/21 10/20/21 06/27/21 History pressure levothyroxine 25 mcg tablet 1 tab PO QAM 02/12/21 11/14/21 06/27/21 History melatonin 5 mg tablet 5 mg PO BEDTIME 02/12/21 10/20/21 06/26/21 History atorvastatin 40 mg tablet 40 mg PO DAILY cholesterol 02/26/21 11/14/21 06/27/21 History omeprazole 40 mg capsule,delayed 40 mg PO DAILY 02/26/21 10/20/21 06/27/21 History release sevelamer carbonate 800 mg tablet 800 mg PO TIDAC 02/26/21 10/20/21 06/27/21 History insulin lispro 100 unit/mL See Rx Instructions .Route .COMPLEX 06/27/21 10/20/21 Unknown History subcutaneous pen (Humalog KwikPen (U-100) Insulin) aspirin 81 mg tablet,delayed 1 tab PO DAILY 10/12/21 11/14/21 Unknown History release cholecalciferol (vitamin D3) 50 1 cap PO QAM 10/12/21 11/14/21 Unknown History mcg (2,000 unit) capsule Physical Exam Vital Signs and Narrative: Vital Signs: Last Vital Signs Temp 96.6 F L 10/12/21 15:09 Pulse 63 10/12/21 15:09 Resp 16 10/12/21 15:09 BP 120/45 L 10/12/21 15:09 Pulse Ox 99 10/12/21 15:09 BMI result Body Mass Index 36.3 Gen: Appears be in no acute distress HEENT: NCAT, Moist mucosa. Pulmonary: Vesicular breath sounds, fair air entry CVS: Normal S1-S2 Abdomen: BS+, Soft, Nontender Extremities: Warm well perfused Neuro: Alert and awake. genitourinary: Examined along with the RN. Patient noted to have 4 wounds, wound on the left when area has surrounding induration and tender. Patient has 1 wound on each labia and 1 on the right inguinal area. Results Labs CBC and Chem 7: 10/15/21 08:42 10/15/21 08:42 Labs: Laboratory Results - last 24 hr 10/12/21 10/12/21 10/12/21 15:50 16:50 18:33 MCV 90.8 MCH 30.5 MCHC 33.6 RDW 13.7 Plt Count 135 L MPV Not Reportable Immature Gran % (Auto) 0.5 H Neut % (Auto) 74.9 H Lymph % (Auto) 11.6 L [place] % (Auto) 6.7 Eos % (Auto) 6.0 H Baso % (Auto) 0.3 Lymph # (Auto) 1.4 [place] # (Auto) 0.8 Eos # (Auto) 0.8 H Baso # (Auto) 0.0 Abs Immat Gran (auto) 0.06 H Absolute Neuts (auto) 9.3 H Absolute Nucleated RBC 0.000 Nucleated RBC % (auto) 0.0 Smear Tech's Comments VERIFIED ESR Anion Gap Estim Creat Clear Calc Estimated GFR POC Glucose 371 H* Random Glucose Lactic Acid Calcium Magnesium C-Reactive Protein COVID-19 ([facility]) Negative COVID-19 Clin Com See Note 10/12/21 10/12/21 10/12/21 18:33 18:33 18:33 MCV MCH MCHC RDW Plt Count MPV Immature Gran % (Auto) Neut % (Auto) Lymph % (Auto) [place] % (Auto) Eos % (Auto) Baso % (Auto) Lymph # (Auto) [place] # (Auto) Eos # (Auto) Baso # (Auto) Abs Immat Gran (auto) Absolute Neuts (auto) Absolute Nucleated RBC Nucleated RBC % (auto) Smear Tech's Comments ESR 115 H Anion Gap 17 Estim Creat Clear Calc 14.2 Estimated GFR 9 POC Glucose Random Glucose 275 H Lactic Acid 1.8 Calcium 8.9 D Magnesium 2.0 C-Reactive Protein 8.89 H COVID-19 ([facility]) COVID-19 Clin Com Assessment and Plan (1) Abscess of multiple sites: Status: Acute (2) End stage renal disease on dialysis: (3) T2DM (type 2 diabetes mellitus): Qualifiers: Diabetes mellitus complication status: with hyperglycemia Diabetes mellitus penitentiary insulin use: with lobsterman use Qualified Code(s): E11.65 - Type 2 diabetes mellitus with hyperglycemia; Z79.4 - lobsterman (current) use of insulin Plan 56-year-old female with a past medical history of hypertension, hyperlipidemia, diabetes, ESRD on hemodialysis, AFib on Eliquis, CAD, CHF, history of inguinal /labial wounds/cellulitis failed outpatient antibiotic therapy; presented with worsening symptoms. Admitted for following Inguinal cellulitis/ labial cellulitis: Patient has open draining tracts; has been worsening since she stopped the antibiotics. Will give the patient on IV vancomycin and Zosyn Will consult General surgery and ID for further recommendations. Ultrasound pending. ESRD: Patient on hemodialysis. Nephrology consult. continue home sevelamer Diabetes: Will keep the patient on Lantus 10 units and insulin sliding scale. Monitor fingerstick glucose and adjust as needed. hold home oral hypoglycemic agents Hypertension/hyperlipidemia: Continue home amlodipine, hydralazine, Lisinopril, metoprololstatin History of AFib: Continue home Eliquis. Rate controlled. Hypothyroidism: Continue home levothyroxine DVT prophylaxis: Subcu heparin Code status: Full code Quality Stroke Does the patient have a stroke diagnosis?: No VTE Prior VTE?: No VTE Risk Level:: Medical - moderate - high VTE Device Contraindication: Treatment Not Indicated VTE Drug Contraindication: N/A - Med Ordered
[2021-10-12] MEDS: vancomycin HCL 1,000 MG in 0.9 % Sodium Chloride 250 ML 270 MG IV (19:56)
--- NOTE | 2021-10-12 20:14 | PHA.MEDREC ---
Pharmacy Consult ? Medication Reconciliation Pharmacy has completed the medication reconciliation.
[2021-10-12 20:54] VITALS: BP 132/78; PULSE 72; RESP 18; O2SAT 98
--- NOTE | 2021-10-12 21:07 | PC.NURSE ---
Addendum entered by Kim Nye LPN 10/12/21 21:08: Adendum:- pt transferred with all belongings, Vancomycin 1Gm infusing via 22G peripheral IV Original Note: pt transferred to overflow, report called to GAGE Hennessy last vitals: 97.6 72bpm 18resp SpO2 98% on RA, B/P 132/78.
[2021-10-12] MEDS: Piperacillin Sodium/Tazobactam 2.25 GM in 0.9 % Sodium Chloride 50 ML IV (21:25)
[2021-10-12 21:44] LABS: Glucose, Whole Blood 132 mg/dL (60-115)
[2021-10-12] MEDS: 0.9 % Sodium Chloride Flush 3 ML SYRINGE IVFLUSH (22:41)
[2021-10-13] VITALS (11 sets, daily range): BP systolic 125–163; BP diastolic 51–65; PULSE 60–73; RESP 16–20; TEMP 36.1–37.8; O2SAT 94–100
[2021-10-13] MEDS: Acetaminophen 325 MG TABLET 650 MG PO (00:13)
--- NOTE | 2021-10-13 02:33 | PC.NURSE ---
Report given to GAGE Saavedra at 0220, pt was transported via w/c to 361 at 0233 by staff.
[2021-10-13 06:46] LABS: MANUAL DIFF FLAG NO
[2021-10-13 07:12] LABS: Basophils Absolute Auto 0.1 X10*3/uL (0.0-0.2); Basophils Percent Auto 0.5 % (0-2); Eosinophils Absolute Auto 0.8 X10*3/uL (0.0-0.4); Eosinophils Percent Auto 7.7 % (0-4); Hematocrit 23.8 % (37.0-47.0); Hemoglobin 8.2 g/dl (12.0-16.0); Imm Gran Abs Auto 0.05 X10*3/uL (0.00-0.03); Imm Gran Pct Auto 0.5 % (0.0-0.4); Lymphocytes Absolute Auto 1.4 X10*3/uL (1.2-4.9); Lymphocytes Percent Auto 12.9 % (20-40); Mean Corpuscular HGB Conc 34.5 g/dl (31.0-35.0); Mean Corpuscular Hemoglobin 31.7 pg (27.0-33.0); Mean Corpuscular Volume 91.9 fL (80.0-98.0); Mean Platelet Volume 12.1 fL (9.4-12.3); Monocytes Absolute Auto 0.7 X10*3/uL (0.1-1.2); Monocytes Percent Auto 6.9 % (2-11); Neutrophils Absolute Auto 7.7 x10*3/uL (2.0-8.3); Neutrophils Percent Auto 71.5 % (45-73); Platelet Count 187 X10*3/uL (160-400); Red Blood Count 2.59 X10*6/uL (4.20-5.50); Red Cell Distribution Width 13.7 % (11.0-16.0); White Blood Count 10.8 X10*3/uL (4.8-10.8)
[2021-10-13 07:16] LABS: Magnesium 1.9 mg/dL (1.6-2.6)
[2021-10-13 07:25] LABS: Anion Gap 14 (12-20); Blood Urea Nitrogen 37 mg/dL (9-16); Calcium 8.7 mg/dL (8.4-10.2); Carbon Dioxide 28 mmol/L (22-29); Chloride 97 mmol/L (96-108); Creatinine Clr Calc Pharmacy 12.7; Estimated Glomerular Filt Rate 8; Glucose Random 243 mg/dL (60-115); Potassium 3.6 mmol/L (3.3-5.1); Sodium 135 mmol/L (135-145)
[2021-10-13 07:52] LABS: Glucose, Whole Blood 216 mg/dL (60-115)
[2021-10-13] MEDS: Gabapentin 100 MG CAPSULE 200 MG PO ×2 (08:09→20:55)
[2021-10-13] MEDS: Apixaban 5 MG TABLET PO (08:09)
[2021-10-13] MEDS: Aspirin Enteric Coated 81 MG TABLET.DR PO (08:09)
[2021-10-13] MEDS: Cholecalciferol (Vitamin D3) 25 MCG TABLET 50 MCG PO (08:09)
[2021-10-13] MEDS: Insulin Lispro 100 UNIT/ML 3 ML VIAL SUBCUT ×4 (08:10→20:55)
[2021-10-13] MEDS: Metoprolol Tartrate 50 MG TABLET PO ×2 (08:10→20:55)
[2021-10-13] MEDS: Levothyroxine Sodium 25 MCG TABLET PO (08:10)
[2021-10-13] MEDS: amLODIPine Besylate 10 MG TABLET PO (08:10)
[2021-10-13] MEDS: hydrALAZINE HCl 50 MG TABLET PO ×2 (08:10→18:00)
[2021-10-13] MEDS: Sevelamer Carbonate Tablet 800 MG TABLET PO ×2 (08:10→18:01)
[2021-10-13] MEDS: 0.9 % Sodium Chloride Flush 3 ML SYRINGE IVFLUSH ×3 (08:11→21:00)
[2021-10-13] MEDS: Piperacillin Sodium/Tazobactam 2.25 GM in 0.9 % Sodium Chloride 50 ML IV (08:11)
--- NOTE | 2021-10-13 09:06 | HE.PHANOTE ---
Patient had dialysis and radha yesterday, unsure when next dialysis may be, messaged nurse to find out
--- NOTE | 2021-10-13 11:03 | HO.PM.IMPN ---
Subjective Subjective Date of Service: 10/13/21 Interval History: seen and examined this morning. history obtained with the assistance of a code official follow up for labial/inguinal abscess/cellulitis reporting significant pain, subjective fever and chills no abdominal pain, nausea or vomiting Review of Systems Review of Systems: Yes all other systems are reviewed and are negative Constitutional Constitutional: Reports chills and Reports fever(s) Cardiovascular Cardiovascular: Denies chest pain, Denies palpitations and Denies dyspnea Respiratory Respiratory: Denies cough and Denies dyspnea Gastrointestinal Gastrointestinal: Denies abdominal pain, Denies nausea and Denies vomiting Endocrine Endocrine: Denies palpitations Physical Exam Vital Signs: Vital Signs: Last Vital Signs Temp 98.1 F 10/13/21 07:19 Pulse 64 10/13/21 07:19 Resp 20 10/13/21 07:19 BP 163/57 H 10/13/21 07:19 Pulse Ox 96 10/13/21 07:19 BMI result Body Mass Index 36.3 Const: General: cooperative, alert and awake Nutritional Appearance: obese Orientation/consciousness: patient oriented x3 Eyes: Pupils: Equal, round and reactive pupils present EOM: EOMs intact bilaterally Resp: Effort & Inspection: normal respiratory effort and able to speak in complete sentences Auscultation: clear to auscultation bilaterally Cardio: Rate: regular rate Heart sounds: S1 normal heart sound present and S2 normal heart sound present GI: Inspection: No distended and Yes obesity Palpation (GI): Soft to palpation and nontender : Other: b/l labial abscess; very tender, unable to express any pus; left side inguinal abscess with large area of induration, also very tender Neuro: General: patient oriented x3 Cranial nerves: Yes Equal, round and reactive pupils present Objective Data Active Medications Acetaminophen (Acetaminophen 325 Mg Tablet) 650 mg PO Q6H PRN PRN Reason: Pain, Mild (Pain Scale 1-3) Last Admin: 10/13/21 00:13 Dose: 650 mg Documented by: RAKESH Amlodipine Besylate (Amlodipine Besylate 10 Mg Tablet) 10 mg PO DAILY [facility]; Protocol Last Admin: 10/13/21 08:10 Dose: 10 mg Documented by: KUSUM Apixaban (Apixaban 5 Mg Tablet) 5 mg PO BID [facility] Last Admin: 10/13/21 08:09 Dose: 5 mg Documented by: KUSUM Aspirin (Aspirin Enteric Coated 81 Mg Tablet.) 81 mg PO DAILY [facility] Last Admin: 10/13/21 08:09 Dose: 81 mg Documented by: KUSUM Dextrose (Dextrose 50 % 25 Gm/50 Ml Syringe) 25 gm IVPUSH Q15M PRN; Protocol PRN Reason: per Hypoglycemia Standing Ord. Gabapentin (Gabapentin 100 Mg Capsule) 200 mg PO BID [facility] Last Admin: 10/13/21 08:09 Dose: 200 mg Documented by: KUSUM Glucose (Glucose Gel 15 Gm Gel..Gram.) 15 gm PO Q15M PRN; Protocol PRN Reason: per Hypoglycemia Standing Ord. Hydralazine HCl (Hydralazine Hcl 50 Mg Tablet) 50 mg PO TID@0900,1200,1800 [facility]; Protocol Last Admin: 10/13/21 08:10 Dose: 50 mg Documented by: KUSUM Piperacillin Sod/Tazobactam (Sod 2.25 gm/ Sodium Chloride) 50 mls @ 100 mls/hr IV Q12H [facility] Last Infusion: 10/13/21 09:15 Dose: 0 mls/hr Documented by: KUSUM Vancomycin HCl 1,000 mg/ (Sodium Chloride) 270 mls @ 270 mls/hr IV TuThSa@1800 [facility] Insulin Glargine (Insulin Glargine,Hum.Rec.Anlog 100 Unit/Ml 10 Ml Vial) 10 unit SUBCUT BEDTIME [facility] Last Admin: 10/12/21 21:56 Dose: Not Given Documented by: RAKESH Non-Admin Reason: Patient Refused Insulin Human Lispro (Insulin Lispro 100 Unit/Ml 3 Ml Vial) 0 unit SUBCUT QIDACHS [facility]; Protocol Last Admin: 10/13/21 08:10 Dose: 1 unit Documented by: KUSUM Levothyroxine Sodium (Levothyroxine Sodium 25 Mcg Tablet) 25 mcg PO DAILY@0600 [facility] Last Admin: 10/13/21 08:10 Dose: 25 mcg Documented by: KUSUM Lisinopril (Lisinopril 10 Mg Tablet) 10 mg PO BEDTIME [facility]; Protocol Melatonin (Melatonin 3 Mg Tablet) 6 mg PO BEDTIME PRN PRN Reason: Insomnia Metoprolol Tartrate (Metoprolol Tartrate 50 Mg Tablet) 50 mg PO BID [facility]; Protocol Last Admin: 10/13/21 08:10 Dose: 50 mg Documented by: KUSUM Pharmacy Consult (Consult Rx Vancomycin Dosing) 1 each MISCELLANE DAILY PRN PRN Reason: Consult order Senna (Sennosides 8.6 Mg Tablet) 17.2 mg PO BEDTIME PRN PRN Reason: Constipation Sevelamer Carbonate (Sevelamer Carbonate Tablet 800 Mg Tablet) 800 mg PO TIDAC [facility] Last Admin: 10/13/21 08:10 Dose: 800 mg Documented by: KUSUM Sodium Chloride (0.9 % Sodium Chloride Flush 3 Ml Syringe) 3 ml IVFLUSH QSHIFT [facility] Last Admin: 10/13/21 08:11 Dose: 3 ml Documented by: KUSUM Vitamin D (Cholecalciferol (Vitamin D3) 25 Mcg Tablet) 50 mcg PO DAILY [facility] Last Admin: 10/13/21 08:09 Dose: 50 mcg Documented by: KUSUM Labs CBC & Chem 7: 10/13/21 06:27 10/13/21 06:27 Labs: Laboratory Results - last 24 hr 10/12/21 10/12/21 10/12/21 15:50 16:50 18:33 MCV 90.8 MCH 30.5 MCHC 33.6 RDW 13.7 Plt Count 135 L MPV Not Reportable Immature Gran % (Auto) 0.5 H Neut % (Auto) 74.9 H Lymph % (Auto) 11.6 L [place] % (Auto) 6.7 Eos % (Auto) 6.0 H Baso % (Auto) 0.3 Lymph # (Auto) 1.4 [place] # (Auto) 0.8 Eos # (Auto) 0.8 H Baso # (Auto) 0.0 Abs Immat Gran (auto) 0.06 H Absolute Neuts (auto) 9.3 H Absolute Nucleated RBC 0.000 Nucleated RBC % (auto) 0.0 Smear Tech's Comments VERIFIED ESR Anion Gap Estim Creat Clear Calc Estimated GFR POC Glucose 371 H* Random Glucose Lactic Acid Calcium Magnesium C-Reactive Protein COVID-19 (AYESHA) Negative COVID-19 Clin Com See Note 10/12/21 10/12/21 10/12/21 18:33 18:33 18:33 MCV MCH MCHC RDW Plt Count MPV Immature Gran % (Auto) Neut % (Auto) Lymph % (Auto) [place] % (Auto) Eos % (Auto) Baso % (Auto) Lymph # (Auto) [place] # (Auto) Eos # (Auto) Baso # (Auto) Abs Immat Gran (auto) Absolute Neuts (auto) Absolute Nucleated RBC Nucleated RBC % (auto) Smear Tech's Comments ESR 115 H Anion Gap 17 Estim Creat Clear Calc 14.2 Estimated GFR 9 POC Glucose Random Glucose 275 H Lactic Acid 1.8 Calcium 8.9 D Magnesium 2.0 C-Reactive Protein 8.89 H COVID-19 (AYESHA) COVID-19 [place] 10/12/21 10/13/21 10/13/21 21:38 06:27 06:27 MCV 91.9 MCH 31.7 MCHC 34.5 RDW 13.7 Plt Count 187 D MPV 12.1 Immature Gran % (Auto) 0.5 H Neut % (Auto) 71.5 Lymph % (Auto) 12.9 L [place] % (Auto) 6.9 Eos % (Auto) 7.7 H Baso % (Auto) 0.5 Lymph # (Auto) 1.4 [place] # (Auto) 0.7 Eos # (Auto) 0.8 H Baso # (Auto) 0.1 Abs Immat Gran (auto) 0.05 H Absolute Neuts (auto) 7.7 Absolute Nucleated RBC 0.000 Nucleated RBC % (auto) 0.0 Smear Tech's Comments ESR Anion Gap 14 Estim Creat Clear Calc 12.7 Estimated GFR 8 POC Glucose 132 H Random Glucose 243 H Lactic Acid Calcium 8.7 Magnesium C-Reactive Protein COVID-19 (AYESHA) COVID-19 [place] 10/13/21 10/13/21 06:27 07:18 MCV MCH MCHC RDW Plt Count MPV Immature Gran % (Auto) Neut % (Auto) Lymph % (Auto) [place] % (Auto) Eos % (Auto) Baso % (Auto) Lymph # (Auto) [place] # (Auto) Eos # (Auto) Baso # (Auto) Abs Immat Gran (auto) Absolute Neuts (auto) Absolute Nucleated RBC Nucleated RBC % (auto) Smear Tech's Comments ESR Anion Gap Estim Creat Clear Calc Estimated GFR POC Glucose 216 H Random Glucose Lactic Acid Calcium Magnesium 1.9 C-Reactive Protein COVID-19 (AYESHA) COVID-19 Typeform Com Microbiology Microbiology Results: Microbiology 10/12/21 16:50 Gram Stain - Final Vaginal Routine Culture - Preliminary Staphylococcus aureus 10/12/21 18:33 Blood Culture - Final Blood - Venous 10/12/21 18:33 Blood Culture - Final Blood - Venous Assessment and Plan (1) Abscess of multiple sites: Status: Acute Plan 56-year-old female with a past medical history of hypertension, hyperlipidemia, diabetes, ESRD on hemodialysis, AFib on Eliquis, CAD, CHF, history of inguinal /labial wounds/cellulitis failed outpatient antibiotic therapy; presented with worsening symptoms. Inguinal/labial cellulitis with abscess r/t diabetes: multiple abscesses (3),unable to tolerate I&D in ED wound culture growing staph aureus, final sensitivities pending Blood cultures pending Continue IV vancomycin, will d/c zosyn General surgery consult pending ?further I&D needed ID consult pending Pain control ESRD on HD Nephrology consult continue home sevelamer Diabetes: hold januvia On Toujeo U-300 28 units at home, will convert to Lantus 22 units SSI, POCs, adjust as needed Hypertension: Continue home amlodipine, hydralazine, Lisinopril,metoprolol HLD statin History of AFib: continue metoprolol Hold Eliquis until surgical eval Hypothyroidism: Continue home levothyroxine gerd continue prilosec DVT prophylaxis: Eliquis Code status: Full code Attending: dr. marcos patient requires ongoing hospitalization for IV antibiotics and surgical consult with need for possible I&D Quality Stroke Does the patient have a stroke diagnosis?: No VTE Prior VTE?: No VTE Risk Level:: Medical - moderate - high VTE Device Contraindication: Treatment Not Indicated VTE Drug Contraindication: N/A - Med Ordered
[2021-10-13 11:38] LABS: Glucose, Whole Blood 297 mg/dL (60-115)
--- NOTE | 2021-10-13 12:26 | PM.EVENT ---
Event Note Date of Service: 10/13/21 Event Note: Pt see and examined D/w the medical team Full consult dictated ESRD on HD- Will arrange HD in AM Thx Dr. Garcia
--- NOTE | 2021-10-13 15:35 | HO.ANESPROP2 ---
[facility] Active Problems Active Problems: All Active Problems (Updated 10/12/21 @ 18:17 by ADRIAN Tovar) Abscess of multiple sites (Acute) Hyperglycemia (Acute) Cellulitis of left leg (Acute) Chest pain (Acute) Atrial flutter with rapid ventricular response (Acute) Headache (Acute) End stage renal disease on dialysis (Acute) Encounter for screening colonoscopy (Acute) Acid reflux (Acute) CAD (coronary artery disease) (Acute) RSV (acute bronchiolitis due to respiratory syncytial virus) (Acute) Elevated troponin (Acute) UTI (urinary tract infection) (Acute) Acute CHF (Acute) AMARJIT (obstructive sleep apnea) (Acute) New onset atrial flutter (Acute) Acute hyperglycemia (Acute) T2DM (type 2 diabetes mellitus) (Acute) Obesity due to excess calories (Acute) HLD (hyperlipidemia) (Acute) HTN (hypertension) (Acute) ESRD (end stage renal disease) (Acute) Past Medical History Medical History Asthma AV fistula CAD (coronary artery disease) CHF (congestive heart failure) Chronic cough Chronic low back pain without sciatica Depression Dialysis patient Dysphonia Dyspnea on exertion ESRD (end stage renal disease) ESRD needing dialysis GERD (gastroesophageal reflux disease) HLD (hyperlipidemia) HTN (hypertension) Kidney stones Normocytic anemia Obesity due to excess calories Osteoarthritis of both knees Renal failure (ARF), acute on chronic T2DM (type 2 diabetes mellitus) Thyroid disease Unstable gait Urinary frequency Family History Family History Father CVD (cardiovascular disease) Diabetes Mother Diabetes Sister Stomach cancer Family history of problems with anesthesia: No Surgical History Surgical History History of kidney surgery Hx of bone graft Hx of cholecystectomy History of Problems with Anesthesia: No Social History Social History Household Members: Spouse and Family Housing: House Do you presently have visiting nurse or other home services: No Unable to assess alcohol history related to: Unknown Alcohol intake: never Patient Tobacco Use Status: Never used Tobacco Use of substances other than those prescribed or required for medical reasons: No Have you been hit, kicked, punched, or otherwise hurt by someone within the past year? If so, by whom?: No Do you feel safe in your current relationship?: Yes Is there a partner from a previous relationship who is making you feel unsafe now?: No Are you made to feel afraid or neglected: No Advance Directives: Yes Advance Directives on File: Yes Advance Directives Date on File: 02/15/21 Do you have thoughts of harming others: None Do you have a plan to hurt others: No Plan Recently lost weight without trying: No Nutrition Risks: No Nutritional Risk Patient : No : No Poor oral hygiene: No service: No Current occupational status: disabled [employer] Allergies Allergy/AdvReac Type Severity Reaction Status Date / Time No Known Allergies Allergy Verified 09/12/21 14:01 [No Known Allergies*] Active Medications: Current Medications Acetaminophen (Acetaminophen 325 Mg Tablet) 650 mg PO Q6H PRN PRN Reason: Pain, Mild (Pain Scale 1-3) Last Admin: 10/13/21 00:13 Dose: 650 mg Documented by: Amlodipine Besylate (Amlodipine Besylate 10 Mg Tablet) 10 mg PO DAILY [facility]; Protocol Last Admin: 10/13/21 08:10 Dose: 10 mg Documented by: Apixaban (Apixaban 5 Mg Tablet) 5 mg PO BID [facility] Last Admin: 10/13/21 08:09 Dose: 5 mg Documented by: Aspirin (Aspirin Enteric Coated 81 Mg Tablet.Dr) 81 mg PO DAILY [facility] Last Admin: 10/13/21 08:09 Dose: 81 mg Documented by: Dextrose (Dextrose 50 % 25 Gm/50 Ml Syringe) 25 gm IVPUSH Q15M PRN; Protocol PRN Reason: per Hypoglycemia Standing Ord. Gabapentin (Gabapentin 100 Mg Capsule) 200 mg PO BID [facility] Last Admin: 10/13/21 08:09 Dose: 200 mg Documented by: Glucose (Glucose Gel 15 Gm Gel..Gram.) 15 gm PO Q15M PRN; Protocol PRN Reason: per Hypoglycemia Standing Ord. Hydralazine HCl (Hydralazine Hcl 50 Mg Tablet) 50 mg PO TID@0900,1200,1800 [facility]; Protocol Last Admin: 10/13/21 12:00 Dose: Not Given Documented by: Vancomycin HCl 1,000 mg/ (Sodium Chloride) 270 mls @ 270 mls/hr IV TuThSa@1800 [facility] Insulin Glargine (Insulin Glargine,Hum.Rec.Anlog 100 Unit/Ml 10 Ml Vial) 22 unit SUBCUT BEDTIME [facility] Insulin Human Lispro (Insulin Lispro 100 Unit/Ml 3 Ml Vial) 0 unit SUBCUT QIDACHS [facility]; Protocol Last Admin: 10/13/21 11:58 Dose: 1 unit Documented by: Levothyroxine Sodium (Levothyroxine Sodium 25 Mcg Tablet) 25 mcg PO DAILY@0600 [facility] Last Admin: 10/13/21 08:10 Dose: 25 mcg Documented by: Lisinopril (Lisinopril 10 Mg Tablet) 10 mg PO BEDTIME [facility]; Protocol Melatonin (Melatonin 3 Mg Tablet) 6 mg PO BEDTIME PRN PRN Reason: Insomnia Metoprolol Tartrate (Metoprolol Tartrate 50 Mg Tablet) 50 mg PO BID [facility]; Protocol Last Admin: 10/13/21 08:10 Dose: 50 mg Documented by: Morphine Sulfate (Morphine Sulfate 2 Mg/Ml Cartridge) 2 mg IVPUSH Q4H PRN; Protocol PRN Reason: Pain, Severe (Pain Scale 7-10) Omeprazole (Omeprazole 40 Mg Capsule.Dr) 40 mg PO DAILY [facility] Oxycodone HCl (Oxycodone Hcl Immed Release 5 Mg Tablet) 5 mg PO Q6H PRN PRN Reason: Pain, Moderate (Pain Scale 4-6 Pharmacy Consult (Consult Rx Vancomycin Dosing) 1 each MISCELLANE DAILY PRN PRN Reason: Consult order Senna (Sennosides 8.6 Mg Tablet) 17.2 mg PO BEDTIME PRN PRN Reason: Constipation Sevelamer Carbonate (Sevelamer Carbonate Tablet 800 Mg Tablet) 800 mg PO TIDAC [facility] Last Admin: 10/13/21 12:00 Dose: Not Given Documented by: Sodium Chloride (0.9 % Sodium Chloride Flush 3 Ml Syringe) 3 ml IVFLUSH QSHIFT [facility] Last Admin: 10/13/21 08:11 Dose: 3 ml Documented by: Vitamin D (Cholecalciferol (Vitamin D3) 25 Mcg Tablet) 50 mcg PO DAILY [facility] Last Admin: 10/13/21 08:09 Dose: 50 mcg Documented by: Home Medications Medication Instructions Recorded Confirmed Last Taken Type gabapentin 100 mg capsule 200 mg PO BID 02/12/21 10/12/21 06/27/21 History hydralazine 50 mg tablet 1 tab PO TID@00,1200,1800 02/12/21 10/12/21 06/27/21 History levothyroxine 25 mcg tablet 1 tab PO QAM 02/12/21 10/12/21 06/27/21 History melatonin 5 mg tablet 5 mg PO BEDTIME 02/12/21 10/12/21 06/26/21 History atorvastatin 40 mg tablet 40 mg PO DAILY 02/26/21 10/12/21 06/27/21 History omeprazole 40 mg capsule,delayed 40 mg PO DAILY 02/26/21 10/12/21 06/27/21 History release sevelamer carbonate 800 mg tablet 800 mg PO TIDAC tab 02/26/21 10/12/21 06/27/21 History insulin lispro 100 unit/mL See Rx Instructions .ROUTE .COMPLEX 06/27/21 10/12/21 Unknown History subcutaneous pen (Humalog KwikPen (U-100) Insulin) aspirin 81 mg tablet,delayed 1 tab PO DAILY 10/12/21 10/12/21 Unknown History release cholecalciferol (vitamin D3) 50 1 cap PO QAM 10/12/21 10/12/21 Unknown History mcg (2,000 unit) capsule Exam Exam Date and Time: October 13, 2021 1535 Height,Weight and Vital Signs: Height 5 ft 3 in Weight 92.986 kg Last Vital Signs Temp 97.8 F 10/13/21 15:15 Pulse 64 10/13/21 15:15 Resp 18 10/13/21 15:15 BP 138/62 10/13/21 15:15 Pulse Ox 94 10/13/21 15:15 Pertinent Lab Results Pertinent Lab Results: Laboratory Tests 10/12/21 10/12/21 10/12/21 15:50 16:50 18:33 WBC 12.4 H RBC 2.72 L D Hgb 8.3 L D Hct 24.7 L D MCV 90.8 MCH 30.5 MCHC 33.6 RDW 13.7 Plt Count 135 L MPV Not Reportable Immature Gran % (Auto) 0.5 H Neut % (Auto) 74.9 H Lymph % (Auto) 11.6 L [place] % (Auto) 6.7 Eos % (Auto) 6.0 H Baso % (Auto) 0.3 Lymph # (Auto) 1.4 [place] # (Auto) 0.8 Eos # (Auto) 0.8 H Baso # (Auto) 0.0 Abs Immat Gran (auto) 0.06 H Absolute Neuts (auto) 9.3 H Absolute Nucleated RBC 0.000 Nucleated RBC % (auto) 0.0 Smear Tech's Comments VERIFIED ESR Sodium Potassium Chloride Carbon Dioxide Anion Gap BUN Creatinine Estim Creat Clear Calc Estimated GFR POC Glucose 371 H* Random Glucose Lactic Acid Calcium Magnesium C-Reactive Protein COVID-19 (AYESHA) Negative COVID-19 Clin Com See Note 10/12/21 10/12/21 10/12/21 18:33 18:33 18:33 WBC RBC Hgb Hct MCV MCH MCHC RDW Plt Count MPV Immature Gran % (Auto) Neut % (Auto) Lymph % (Auto) [place] % (Auto) Eos % (Auto) Baso % (Auto) Lymph # (Auto) [place] # (Auto) Eos # (Auto) Baso # (Auto) Abs Immat Gran (auto) Absolute Neuts (auto) Absolute Nucleated RBC Nucleated RBC % (auto) Smear Tech's Comments ESR 115 H Sodium 136 Potassium 3.7 D Chloride 96 Carbon Dioxide 27 Anion Gap 17 BUN 32 H Creatinine 4.83 H* Estim Creat Clear Calc 14.2 Estimated GFR 9 POC Glucose Random Glucose 275 H Lactic Acid 1.8 Calcium 8.9 D Magnesium 2.0 C-Reactive Protein 8.89 H COVID-19 (AYESHA) COVID-19 Clin Com 10/12/21 10/13/21 10/13/21 21:38 06:27 06:27 WBC 10.8 RBC 2.59 L Hgb 8.2 L Hct 23.8 L MCV 91.9 MCH 31.7 MCHC 34.5 RDW 13.7 Plt Count 187 D MPV 12.1 Immature Gran % (Auto) 0.5 H Neut % (Auto) 71.5 Lymph % (Auto) 12.9 L [place] % (Auto) 6.9 Eos % (Auto) 7.7 H Baso % (Auto) 0.5 Lymph # (Auto) 1.4 [place] # (Auto) 0.7 Eos # (Auto) 0.8 H Baso # (Auto) 0.1 Abs Immat Gran (auto) 0.05 H Absolute Neuts (auto) 7.7 Absolute Nucleated RBC 0.000 Nucleated RBC % (auto) 0.0 Smear Tech's Comments ESR Sodium 135 Potassium 3.6 Chloride 97 Carbon Dioxide 28 Anion Gap 14 BUN 37 H Creatinine 5.43 H* Estim Creat Clear Calc 12.7 Estimated GFR 8 POC Glucose 132 H Random Glucose 243 H Lactic Acid Calcium 8.7 Magnesium C-Reactive Protein COVID-19 (AYESHA) COVID-19 Clin Com 10/13/21 10/13/21 10/13/21 06:27 07:18 11:34 WBC RBC Hgb Hct MCV MCH MCHC RDW Plt Count MPV Immature Gran % (Auto) Neut % (Auto) Lymph % (Auto) [place] % (Auto) Eos % (Auto) Baso % (Auto) Lymph # (Auto) [place] # (Auto) Eos # (Auto) Baso # (Auto) Abs Immat Gran (auto) Absolute Neuts (auto) Absolute Nucleated RBC Nucleated RBC % (auto) Smear Tech's Comments ESR Sodium Potassium Chloride Carbon Dioxide Anion Gap BUN Creatinine Estim Creat Clear Calc Estimated GFR POC Glucose 216 H 297 H Random Glucose Lactic Acid Calcium Magnesium 1.9 C-Reactive Protein COVID-19 (AYESHA) COVID-19 Clin Com Airway Mallampati Class: III TM Dist: >3cm Neck ROM: Full Assessment and Plan Assessment Anesthesia Assessment: Anesthesia Plan Discussed and Chart Reviewed Final Anesthetic Review Family History of Problems with Anesthesia: No History of Problems with Anesthesia: No NPO: Yes ASA Class: IV and Emergency Final Preanesthetic Review: No Changes in Pt Med Stat, Meds/Allgs Chart Reviewed, Consent Obtained/Reviewed and Anes Risks/Benef Reviewed Patient Risk: Intermediate Procedure Risk: Low Anesthetic Plan Anesthetic Plan: GA Disposition: Standard PACU
[2021-10-13 15:42] LABS: Glucose, Whole Blood 250 mg/dL (60-115)
--- NOTE | 2021-10-13 15:59 | MHC.CM.PN ---
PT LIVES WITH HER S/O AND IS INDEPENDENT WITH CARE PT ATTENDS OUTPATIENT HEMODIALYSIS AT [facility] JENIFFER M-W-F PT HAS A HCP ON FILE AND HER PCP IS MARCELLA MOSLEY CURRENT DC PLAN IS HOME WITH NO NEW SERVICES FAMILY TO TRANSPORT
--- NOTE | 2021-10-13 17:04 | P.CONGS_ITS ---
History of Present Illness Consult details Consult date: 10/13/21 Narrative: pt with multiple med issues with vulva abscess - had been treated medically but worsening and draining - tried I&D in ER but not successful so admitted for iv antibx and surgical consult for drainage. Review of Systems Review of Systems: No all other systems are reviewed and are negative [facility] Past Medical History Medical History Asthma AV fistula CAD (coronary artery disease) CHF (congestive heart failure) Chronic cough Chronic low back pain without sciatica Depression Dialysis patient Dysphonia Dyspnea on exertion ESRD (end stage renal disease) ESRD needing dialysis GERD (gastroesophageal reflux disease) HLD (hyperlipidemia) HTN (hypertension) Kidney stones Normocytic anemia Obesity due to excess calories Osteoarthritis of both knees Renal failure (ARF), acute on chronic T2DM (type 2 diabetes mellitus) Thyroid disease Unstable gait Urinary frequency Family History Family History Father CVD (cardiovascular disease) Diabetes Mother Diabetes Sister Stomach cancer Surgical History Surgical History History of kidney surgery Hx of bone graft Hx of cholecystectomy Social History Social History Household Members: Spouse and Family Housing: House Do you presently have visiting nurse or other home services: No Unable to assess alcohol history related to: Unknown Alcohol intake: never Patient Tobacco Use Status: Never used Tobacco Use of substances other than those prescribed or required for medical reasons: No Have you been hit, kicked, punched, or otherwise hurt by someone within the past year? If so, by whom?: No Do you feel safe in your current relationship?: Yes Is there a partner from a previous relationship who is making you feel unsafe now?: No Are you made to feel afraid or neglected: No Advance Directives: Yes Advance Directives on File: Yes Advance Directives Date on File: 02/15/21 Do you have thoughts of harming others: None Do you have a plan to hurt others: No Plan Recently lost weight without trying: No Nutrition Risks: No Nutritional Risk Patient : No : No Poor oral hygiene: No service: No Current occupational status: disabled Travel History Ebola Risk: Travel/Contact With Anyone From Affected Area/s: No Has Patient Experienced Ebola Symptoms: No Meds Allergies Allergy/AdvReac Type Severity Reaction Status Date / Time No Known Allergies Allergy Verified 09/12/21 14:01 [No Known Allergies*] Active Medications: Current Medications Acetaminophen (Acetaminophen 325 Mg Tablet) 650 mg PO Q6H PRN PRN Reason: Pain, Mild (Pain Scale 1-3) Last Admin: 10/13/21 00:13 Dose: 650 mg Documented by: Amlodipine Besylate (Amlodipine Besylate 10 Mg Tablet) 10 mg PO DAILY [facility]; Protocol Last Admin: 10/13/21 08:10 Dose: 10 mg Documented by: Apixaban (Apixaban 5 Mg Tablet) 5 mg PO BID [facility] Last Admin: 10/13/21 08:09 Dose: 5 mg Documented by: Aspirin (Aspirin Enteric Coated 81 Mg Tablet.) 81 mg PO DAILY [facility] Last Admin: 10/13/21 08:09 Dose: 81 mg Documented by: Dextrose (Dextrose 50 % 25 Gm/50 Ml Syringe) 25 gm IVPUSH Q15M PRN; Protocol PRN Reason: per Hypoglycemia Standing Ord. Gabapentin (Gabapentin 100 Mg Capsule) 200 mg PO BID [facility] Last Admin: 10/13/21 08:09 Dose: 200 mg Documented by: Glucose (Glucose Gel 15 Gm Gel..Gram.) 15 gm PO Q15M PRN; Protocol PRN Reason: per Hypoglycemia Standing Ord. Hydralazine HCl (Hydralazine Hcl 50 Mg Tablet) 50 mg PO TID@0900,1200,1800 [facility]; Protocol Last Admin: 10/13/21 12:00 Dose: Not Given Documented by: Vancomycin HCl 1,000 mg/ (Sodium Chloride) 270 mls @ 270 mls/hr IV TuThSa@1800 [facility] Insulin Glargine (Insulin Glargine,Hum.Rec.Anlog 100 Unit/Ml 10 Ml Vial) 22 unit SUBCUT BEDTIME [facility] Insulin Human Lispro (Insulin Lispro 100 Unit/Ml 3 Ml Vial) 0 unit SUBCUT QIDACHS [facility]; Protocol Last Admin: 10/13/21 11:58 Dose: 1 unit Documented by: Levothyroxine Sodium (Levothyroxine Sodium 25 Mcg Tablet) 25 mcg PO DAILY@0600 [facility] Last Admin: 10/13/21 08:10 Dose: 25 mcg Documented by: Lisinopril (Lisinopril 10 Mg Tablet) 10 mg PO BEDTIME [facility]; Protocol Melatonin (Melatonin 3 Mg Tablet) 6 mg PO BEDTIME PRN PRN Reason: Insomnia Metoprolol Tartrate (Metoprolol Tartrate 50 Mg Tablet) 50 mg PO BID [facility]; Protocol Last Admin: 10/13/21 08:10 Dose: 50 mg Documented by: Morphine Sulfate (Morphine Sulfate 2 Mg/Ml Cartridge) 2 mg IVPUSH Q4H PRN; Protocol PRN Reason: Pain, Severe (Pain Scale 7-10) Omeprazole (Omeprazole 40 Mg Capsule.Dr) 40 mg PO DAILY [facility] Oxycodone HCl (Oxycodone Hcl Immed Release 5 Mg Tablet) 5 mg PO Q6H PRN PRN Reason: Pain, Moderate (Pain Scale 4-6 Pharmacy Consult (Consult Rx Vancomycin Dosing) 1 each MISCELLANE DAILY PRN PRN Reason: Consult order Senna (Sennosides 8.6 Mg Tablet) 17.2 mg PO BEDTIME PRN PRN Reason: Constipation Sevelamer Carbonate (Sevelamer Carbonate Tablet 800 Mg Tablet) 800 mg PO TIDAC [facility] Last Admin: 10/13/21 12:00 Dose: Not Given Documented by: Sodium Chloride (0.9 % Sodium Chloride Flush 3 Ml Syringe) [facility] Admin: 10/13/21 08:11 Dose: 3 ml Documented by: Vitamin D (Cholecalciferol (Vitamin D3) 25 Mcg Tablet) 50 mcg PO DAILY [facility] Last Admin: 10/13/21 08:09 Dose: 50 mcg Documented by: Home Medications Medication Instructions Recorded Confirmed Last Taken Type gabapentin 100 mg capsule 200 mg PO BID 02/12/21 10/12/21 06/27/21 History hydralazine 50 mg tablet 1 tab PO TID@0900,1200,1800 02/12/21 10/12/21 06/27/21 History levothyroxine 25 mcg tablet 1 tab PO QAM 02/12/21 10/12/21 06/27/21 History melatonin 5 mg tablet 5 mg PO BEDTIME 02/12/21 10/12/21 06/26/21 History atorvastatin 40 mg tablet 40 mg PO DAILY 02/26/21 10/12/21 06/27/21 History omeprazole 40 mg capsule,delayed 40 mg PO DAILY 02/26/21 10/12/21 06/27/21 History release sevelamer carbonate 800 mg tablet 800 mg PO TIDAC tab 02/26/21 10/12/21 06/27/21 History insulin lispro 100 unit/mL See Rx Instructions .ROUTE .COMPLEX 06/27/21 10/12/21 Unknown History subcutaneous pen (Humalog KwikPen (U-100) Insulin) aspirin 81 mg tablet,delayed 1 tab PO DAILY 10/12/21 10/12/21 Unknown History release cholecalciferol (vitamin D3) 50 1 cap PO QAM 10/12/21 10/12/21 Unknown History mcg (2,000 unit) capsule Physical Exam Vital Signs: Vital Signs: Last Vital Signs Temp 97.8 F 10/13/21 15:15 Pulse 64 10/13/21 15:15 Resp 18 10/13/21 15:15 BP 138/62 10/13/21 15:15 Pulse Ox 94 10/13/21 15:15 BMI result Body Mass Index 36.3 Const: General: cooperative and acute distress moderate Skin: Other: left upper vulva/lower pelvic area with induration and firm mass draining pus also area to the right on the labia unable to see well as pt having pain Results Labs Result diagrams: 10/13/21 06:27 10/13/21 06:27 Labs: Abnormal lab results 10/12/21 10/12/21 10/12/21 Range/Units 18:33 18:33 18:33 WBC 12.4 H (4.8-10.8) X10*3/uL RBC 2.72 L D (4.20-5.50) X10*6/uL Hgb 8.3 L D (12.0-16.0) g/dl Hct 24.7 L D (37.0-47.0) % Plt Count 135 L (160-400) X10*3/uL Immature Gran % (Auto) 0.5 H (0.0-0.4) % Neut % (Auto) 74.9 H (45-73) % Lymph % (Auto) 11.6 L (20-40) % Eos % (Auto) 6.0 H (0-4) % Eos # (Auto) 0.8 H (0.0-0.4) X10*3/uL Abs Immat Gran (auto) 0.06 H (0.00-0.03) X10*3/uL Absolute Neuts (auto) 9.3 H (2.0-8.3) x10*3/uL ESR 115 H (0-20) MM/HR BUN 32 H (9-16) mg/dL Creatinine 4.83 H* (0.5-1.4) mg/dL POC Glucose (60-115) mg/dL Random Glucose 275 H (60-115) mg/dL C-Reactive Protein 8.89 H (< or = 0.50) mg/dL 10/12/21 10/13/21 10/13/21 Range/Units 21:38 06:27 06:27 WBC (4.8-10.8) X10*3/uL RBC 2.59 L (4.20-5.50) X10*6/uL Hgb 8.2 L (12.0-16.0) g/dl Hct 23.8 L (37.0-47.0) % Plt Count (160-400) X10*3/uL Immature Gran % (Auto) 0.5 H (0.0-0.4) % Neut % (Auto) (45-73) % Lymph % (Auto) 12.9 L (20-40) % Eos % (Auto) 7.7 H (0-4) % Eos # (Auto) 0.8 H (0.0-0.4) X10*3/uL Abs Immat Gran (auto) 0.05 H (0.00-0.03) X10*3/uL Absolute Neuts (auto) (2.0-8.3) x10*3/uL ESR (0-20) MM/HR BUN 37 H (9-16) mg/dL Creatinine 5.43 H* (0.5-1.4) mg/dL POC Glucose 132 H (60-115) mg/dL Random Glucose 243 H (60-115) mg/dL C-Reactive Protein (< or = 0.50) mg/dL 10/13/21 10/13/21 10/13/21 Range/Units 07:18 11:34 15:18 WBC (4.8-10.8) X10*3/uL RBC (4.20-5.50) X10*6/uL Hgb (12.0-16.0) g/dl Hct (37.0-47.0) % Plt Count (160-400) X10*3/uL Immature Gran % (Auto) (0.0-0.4) % Neut % (Auto) (45-73) % Lymph % (Auto) (20-40) % Eos % (Auto) (0-4) % Eos # (Auto) (0.0-0.4) X10*3/uL Abs Immat Gran (auto) (0.00-0.03) X10*3/uL Absolute Neuts (auto) (2.0-8.3) x10*3/uL ESR (0-20) MM/HR BUN (9-16) mg/dL Creatinine (0.5-1.4) mg/dL POC Glucose 216 H 297 H 250 H (60-115) mg/dL Random Glucose (60-115) mg/dL C-Reactive Protein (< or = 0.50) mg/dL Short CBC 10/12/21 10/13/21 Range/Units 18:33 06:27 WBC 12.4 H 10.8 (4.8-10.8) X10*3/uL Hgb 8.3 L D 8.2 L (12.0-16.0) g/dl Hct 24.7 L D 23.8 L (37.0-47.0) % Plt Count 135 L 187 D (160-400) X10*3/uL BMP 10/12/21 10/13/21 18:33 06:27 Sodium 136 135 Potassium 3.7 D 3.6 Chloride 96 97 Carbon Dioxide 27 28 BUN 32 H 37 H Creatinine 4.83 H* 5.43 H* Calcium 8.9 D 8.7 All other labs normal. Assessment and Plan (1) Vulvar abscess: Status: Acute Plan the patient is a 56-year-old female with multiple medical problems including coronary artery disease hypertension diabetes end-stage renal disease on dialysis anticoagulated on L look was coming in with elevated white count and multiple abscesses in the vulva area draining. Admitted by medical team and plan to take to the OR to undergo incision and drainage of these abscesses . Patient understands and agrees with above plan Procedures Date of Service Date of Service: 10/13/21
--- NOTE | 2021-10-13 17:16 | W.PM.OPN ---
Operative Note Operative Note Date of Service: 10/13/21 Narrative: patient underwent incision and drainage of multiple vulva abscesses. Left upper of all the area opened up and a significant amount of purulent drainage obtained. This area has a large cavity but was completely drained. Area was irrigated and packed with pen ani drained and secured. Left labia opened up in drained with moderate purulent material obtained. Packed with Iodoform gauze. Right labia opened up more injury to tissue not as much purulent drainage. Pack with Iodoform gauze Right full the area opened up deeper cavity packed with Iodoform gauze small amount of purulent drainage noted
[2021-10-13] MEDS: Morphine Sulfate 2 MG/ML CARTRIDGE IVPUSH (18:01)
[2021-10-13] MEDS: oxyCODONE HCl Immed Release 5 MG TABLET PO (19:43)
[2021-10-13 20:16] LABS: Glucose, Whole Blood 332 mg/dL (60-115)
[2021-10-13] MEDS: lisinopriL 10 MG TABLET PO (20:55)
[2021-10-13] MEDS: Insulin Glargine,Hum.rec.anlog 100 UNIT/ML 10 ML VIAL 22 UNIT SUBCUT (20:56)
[2021-10-14 03:35] VITALS: BP 140/64; PULSE 66; RESP 18; TEMP 36.8; O2SAT 96
[2021-10-14] MEDS: Levothyroxine Sodium 25 MCG TABLET PO (05:36)
[2021-10-14 07:09] LABS: Hematocrit 23.9 % (37.0-47.0); Hemoglobin 7.8 g/dl (12.0-16.0); Mean Corpuscular HGB Conc 32.6 g/dl (31.0-35.0); Mean Corpuscular Hemoglobin 30.5 pg (27.0-33.0); Mean Corpuscular Volume 93.4 fL (80.0-98.0); Mean Platelet Volume 12.1 fL (9.4-12.3); Platelet Count 175 X10*3/uL (160-400); Red Blood Count 2.56 X10*6/uL (4.20-5.50); Red Cell Distribution Width 13.7 % (11.0-16.0); White Blood Count 11.5 X10*3/uL (4.8-10.8)
[2021-10-14 07:16] VITALS: BP 116/52; PULSE 68; RESP 18; TEMP 36.7; O2SAT 96
[2021-10-14 07:36] LABS: Anion Gap 15 (12-20); Blood Urea Nitrogen 50 mg/dL (9-16); Calcium 8.3 mg/dL (8.4-10.2); Carbon Dioxide 26 mmol/L (22-29); Chloride 99 mmol/L (96-108); Creatinine Clr Calc Pharmacy 9.9; Estimated Glomerular Filt Rate 6; Glucose Random 277 mg/dL (60-115); Potassium 4.4 mmol/L (3.3-5.1); Sodium 136 mmol/L (135-145)
[2021-10-14 07:57] LABS: Glucose, Whole Blood 242 mg/dL (60-115)
[2021-10-14] MEDS: Insulin Lispro 100 UNIT/ML 3 ML VIAL SUBCUT ×3 (08:15→20:32)
--- NOTE | 2021-10-14 09:03 | P.PNIM_ITS ---
Subjective Subjective Date of Service: 10/14/21 Review of Systems follow up for labial/inguinal abscess/cellulitis reporting some pain no nausea or vomiting Physical Exam Vital Signs: Vital Signs: Last Vital Signs Temp 98.1 F 10/14/21 07:16 Pulse 68 10/14/21 07:16 Resp 18 10/14/21 07:16 BP 116/52 L 10/14/21 07:16 Pulse Ox 96 10/14/21 07:16 BMI result Body Mass Index 36.3 Appearing in no acute distress lung sounds are clear to auscultation heart regular rate rhythm, clear S1, S2 positive bowel sounds, abdomen is soft, nontender neuro patient is alert x3, no focal deficits Objective Data Active Medications Acetaminophen (Acetaminophen 325 Mg Tablet) 650 mg PO Q6H PRN PRN Reason: Pain, Mild (Pain Scale 1-3) Last Admin: 10/13/21 00:13 Dose: 650 mg Documented by: FILIPPOILGracie Amlodipine Besylate (Amlodipine Besylate 10 Mg Tablet) 10 mg PO DAILY [facility]; Protocol Last Admin: 10/13/21 08:10 Dose: 10 mg Documented by: KUSUM Apixaban (Apixaban 5 Mg Tablet) 5 mg PO BID [facility] Last Admin: 10/13/21 08:09 Dose: 5 mg Documented by: KUSUM Aspirin (Aspirin Enteric Coated 81 Mg Tablet.Dr) 81 mg PO DAILY [facility] Last Admin: 10/13/21 08:09 Dose: 81 mg Documented by: KUSUM Dextrose (Dextrose 50 % 25 Gm/50 Ml Syringe) 25 gm IVPUSH Q15M PRN; Protocol PRN Reason: per Hypoglycemia Standing Ord. Fentanyl (Fentanyl Citrate/Pf 100 Mcg/2 Ml Vial) 50 mcg IVPUSH Q5M PRN; Protoco l PRN Reason: Pain, Severe (Pain Scale 7-10) Gabapentin (Gabapentin 100 Mg Capsule) 200 mg PO BID [facility] Last Admin: 10/13/21 20:55 Dose: 200 mg Documented by: MERVIN Glucose (Glucose Gel 15 Gm Gel..Gram.) 15 gm PO Q15M PRN; Protocol PRN Reason: per Hypoglycemia Standing Ord. Hydralazine HCl (Hydralazine Hcl 50 Mg Tablet) 50 mg PO TID@0900,1200,1800 [facility]; Protocol Last Admin: 10/13/21 18:00 Dose: 50 mg Documented by: KUSUM Vancomycin HCl 1,000 mg/ (Sodium Chloride) 270 mls @ 270 mls/hr IV TuThSa@1800 [facility] Promethazine HCl 12.5 mg/ (Sodium Chloride) 50.5 mls @ 202 mls/hr IV ONCE PRN PRN Reason: Nausea and Vomiting Insulin Glargine (Insulin Glargine,Hum.Rec.Anlog 100 Unit/Ml 10 Ml Vial) 22 unit SUBCUT BEDTIME [facility] Last Admin: 10/13/21 20:56 Dose: 22 unit Documented by: MERVIN Insulin Human Lispro (Insulin Lispro 100 Unit/Ml 3 Ml Vial) 0 unit SUBCUT QIDACHS [facility]; Protocol Last Admin: 10/14/21 08:15 Dose: 4 unit Documented by: HEIDY Levothyroxine Sodium (Levothyroxine Sodium 25 Mcg Tablet) 25 mcg PO DAILY@0600 [facility] Last Admin: 10/14/21 05:36 Dose: 25 mcg Documented by: MERVIN Lisinopril (Lisinopril 10 Mg Tablet) 10 mg PO BEDTIME [facility]; Protocol Last Admin: 10/13/21 20:55 Dose: 10 mg Documented by: MERVIN Melatonin (Melatonin 3 Mg Tablet) 6 mg PO BEDTIME PRN PRN Reason: Insomnia Metoprolol Tartrate (Metoprolol Tartrate 50 Mg Tablet) 50 mg PO BID [facility]; Protocol Last Admin: 10/13/21 20:55 Dose: 50 mg Documented by: MERVIN Morphine Sulfate (Morphine Sulfate 2 Mg/Ml Cartridge) 2 mg IVPUSH Q4H PRN; Pro tocol PRN Reason: Pain, Severe (Pain Scale 7-10) Last Admin: 10/13/21 18:01 Dose: 2 mg Documented by: KUSUM Omeprazole (Omeprazole 40 Mg Capsule.Dr) 40 mg PO DAILY [facility] Oxycodone HCl (Oxycodone Hcl Immed Release 5 Mg Tablet) 5 mg PO Q6H PRN PRN Reason: Pain, Moderate (Pain Scale 4-6 Pharmacy Consult (Consult Rx Vancomycin Dosing) 1 each MISCELLANE DAILY PRN PRN Reason: Consult order Senna (Sennosides 8.6 Mg Tablet) 17.2 mg PO BEDTIME PRN PRN Reason: Constipation Sevelamer Carbonate (Sevelamer Carbonate Tablet 800 Mg Tablet) 800 mg PO TIDAC [facility] Last Admin: 10/14/21 08:58 Dose: Not Given Documented by: HEIDY Non-Admin Reason: dialysis Sodium Chloride (0.9 % Sodium Chloride Flush 3 Ml Syringe) 3 ml IVFLUSH QSHIFT [facility] Last Admin: 10/13/21 21:00 Dose: 3 ml Documented by: MERVIN Vitamin D (Cholecalciferol (Vitamin D3) 25 Mcg Tablet) 50 mcg PO DAILY [facility] Last Admin: 10/13/21 08:09 Dose: 50 mcg Documented by: KUSUM Labs CBC & Chem 7: 10/14/21 06:24 10/14/21 06:25 Labs: Laboratory Results - last 24 hr 10/13/21 10/13/21 10/13/21 11:34 15:18 20:12 MCV MCH MCHC RDW Plt Count MPV Absolute Nucleated RBC Nucleated RBC % (auto) Anion Gap Estim Creat Clear Calc Estimated GFR POC Glucose 297 H 250 H 332 H Random Glucose Calcium 10/14/21 10/14/21 10/14/21 06:24 06:25 07:15 MCV 93.4 MCH 30.5 MCHC 32.6 RDW 13.7 Plt Count 175 MPV 12.1 Absolute Nucleated RBC 0.000 Nucleated RBC % (auto) 0.0 Anion Gap 15 Estim Creat Clear Calc 9.9 Estimated GFR 6 POC Glucose 242 H Random Glucose 277 H Calcium 8.3 L Microbiology Microbiology Results: Microbiology 10/13/21 Unknown Gram Stain - Final Vulva Routine Culture - Preliminary Culture in progress. 10/12/21 16:50 Gram Stain - Final Vaginal Routine Culture - Final Staphylococcus aureus 10/12/21 18:33 Blood Culture - Preliminary Blood - Venous No growth after 24 hours. 10/12/21 18:33 Blood Culture - Preliminary Blood - Venous No growth after 24 hours. 10/12/21 18:33 Blood Culture - Final Blood - Venous 10/12/21 18:33 Blood Culture - Final Blood - Venous Assessment and Plan (1) Abscess of multiple sites: Status: Acute Plan 56-year-old female with a past medical history of hypertension, hyperlipidemia, diabetes, ESRD on hemodialysis, AFib on Eliquis, CAD, CHF, history of inguinal /labial wounds/cellulitis failed outpatient antibiotic therapy; presented with worsening symptoms. Inguinal/labial cellulitis with abscess r/t diabetes wound culture growing staph aureus, final sensitivities pending Continue IV vancomycin s/p I&D 10/13/21 with mod purulent drainage to left labia and some to right labia packed with iodoform ID consult pending ESRD on HD Nephrology consult continue home sevelamer Diabetes On Toujeo U-300 28 units at home, will convert to Lantus 22 units SSI, POCs, adjust as needed Hypertension Continue home amlodipine, hydralazine, Lisinopril,metoprolol HLD statin History of AFib continue metoprolol Ashly Hypothyroidism Continue home levothyroxine gerd continue prilosec DVT prophylaxis Eliquis Code status: Full code Attending Dr. Macedo patient requires ongoing hospitalization for IV antibiotics and surgical follow up s/p I&D Quality Stroke Does the patient have a stroke diagnosis?: No VTE Prior VTE?: No VTE Risk Level:: Medical - moderate - high VTE Device Contraindication: Treatment Not Indicated VTE Drug Contraindication: N/A - Med Ordered
--- NOTE | 2021-10-14 09:18 | MHC.CLN ---
NUTRITION DIET CHANGED TO DIABETIC 1800 [facility] TO INCREASE CALORIES PROVIDED.
[2021-10-14] MEDS: diphenhydrAMINE HCL 50 MG/ML VIAL 25 MG IVPUSH (10:20)
--- NOTE | 2021-10-14 10:34 | HO.POSTANES ---
Post Anesthesia Evaluation Post Anesthesia Evaluation Vital Signs: Vital Signs Temp Pulse Resp BP Pulse Ox 10/14/21 07:16 98.1 F 68 18 116/52 L 96 10/14/21 03:35 98.3 F 66 18 140/64 H 96 10/13/21 23:20 97.6 F 68 18 126/59 L 96 Anesthesia: General Mental Status: Awake Pain Control: Satisfactory Nausea/Vomiting: None Hydration: Adequate Anesthesia-Related Issues: No Anes. Related Issues
[2021-10-14 14:55] VITALS: BP 141/63; PULSE 68; RESP 18; TEMP 36.6; O2SAT 95
--- NOTE | 2021-10-14 15:15 | CONS_ITS ---
DATE OF SERVICE: 10/13/2021 REASON FOR CONSULTATION: Consult requested by the medical team to evaluate and help in management of patient with ESRD, on hemodialysis with complaints of inguinal wounds. HISTORY OF PRESENT ILLNESS: She has had inguinal wounds about for a month and finished a course of antibiotic. She had increased pain and tenderness in the area including the labial area. She has subjective fevers. She was apparently discharged when the wound was pressed in the ER. There is no dysuria, urgency of urination. In the ER, patient was evaluated and admitted for IV antibiotics. Renal consult has been requested to help with management of her ESRD. PAST MEDICAL HISTORY: History of asthma, history of coronary artery disease, CHF, chronic cough, chronic low back pain with sciatica, depression, ESRD, on hemodialysis on Thursday, Thursday, Thursday at [facility], GERD, hypertension, hyperlipidemia, history of renal stone, normocytic anemia, obesity due to excessive calories, osteoarthritis of knees, KATHI in the past, type 2 diabetes mellitus, thyroid disease, unstable gait, and urinary frequency. FAMILY HISTORY: Father had cerebrovascular disease and diabetes. Mother had diabetes, and sister had stomach cancer. PAST SURGICAL HISTORY: Patient has history of kidney surgery, bone graft, and cholecystectomy. PERSONAL AND SOCIAL HISTORY: Patient does not drink alcohol. Does not smoke. Does not use drugs. ALLERGIES: PATIENT HAS NO KNOWN DRUG ALLERGIES. MEDICATIONS: As an outpatient and inpatient reviewed. PHYSICAL EXAMINATION: GENERAL: Patient is resting in the bed. Awake, alert, oriented x3. VITAL SIGNS: Blood pressure is 133/53, pulse 60. Afebrile. HEENT: Shows pupils are equal bilaterally to light. No jugular venous distention is noted. NECK: Supple. No thyromegaly is noted. Mucosa moist. There is no scleral icterus or conjunctival congestion. CARDIOVASCULAR SYSTEM: S1, S2 without rub or murmur. RESPIRATORY SYSTEM: Air entry decreased in the bases. ABDOMEN: Soft, obese. Bowel sounds normal. EXTREMITIES: Showed no significant edema. Upper extremity AV fistula with good bruit and thrill noted. LABORATORY DATA: Done today; sodium 135, potassium 3.6, chloride 97, CO2 of 28, BUN 37, creatinine 5.43, glucose 243. Hemoglobin 8.2, hematocrit 23.8, WBC 10.8, platelets 187. Calcium 8.9, magnesium 2.0, lactic acid 1.8. IMPRESSION: 1. 56-year-old female with end-stage renal disease, on hemodialysis, admitted with inguinal/labial cellulitis/abscess. 2. Type 2 diabetes mellitus. 3. Hypertension. 4. Anemia of chronic disease. 5. Atrial fibrillation, on Eliquis. RECOMMENDATIONS: Patient usually gets dialyzed on Thursday, Thursday, Thursday, and arrange for hemodialysis for the patient at the inpatient dialysis unit in a.m. We will try to remove fluid as tolerated and use potassium per protocol. In regard to the inguinal abscess/cellulitis, the patient was not able tolerate I and D in the ER. Wound culture is growing Staph aureus. The patient has received IV vancomycin and I recommend dosing post dialysis on Thursday as well and adjusting dose based on the vancomycin level. Infectious Disease consultation has been requested and is pending. In regard to diabetes, continue with the present diabetic medication and the patient on multiple antihypertensive medications, which needs to be continued for her hypertension. In regard to secondary hyperparathyroidism, we will continue the present dose of phosphate binder, Renagel 800 mg three times a day with meals. Thank you for allowing me to participate in medical management of the patient. MD ROLANDO Conklin/LG / [phone]
--- NOTE | 2021-10-14 15:26 | PM.PNGS ---
Subjective Subjective Date of Service: 10/14/21 Interval history: she says she feels well denies significant pain no fever Physical Exam Vital Signs: Vital Signs: Last Vital Signs Temp 97.9 F 10/14/21 14:55 Pulse 68 10/14/21 14:55 Resp 18 10/14/21 14:55 BP 141/63 H 10/14/21 14:55 Pulse Ox 95 10/14/21 14:55 BMI result Body Mass Index 36.3 Const: General: comfortable and no acute distress Resp: Effort & Inspection: normal respiratory effort Cardio: Rate: regular rate GI: Other: on vulvar area is note of 3 I&D sites, with packings, iodoform no fluctuance I and D sites dry Objective Data Active Medications Acetaminophen (Acetaminophen 325 Mg Tablet) 650 mg PO Q6H PRN PRN Reason: Pain, Mild (Pain Scale 1-3) Last Admin: 10/13/21 00:13 Dose: 650 mg Documented by: RAKESH Amlodipine Besylate (Amlodipine Besylate 10 Mg Tablet) 10 mg PO DAILY COUNTS INCLUDE 234 BEDS AT THE [facility]; Protocol Last Admin: 10/13/21 08:10 Dose: 10 mg Documented by: KUSUM Apixaban (Apixaban 5 Mg Tablet) 5 mg PO BID COUNTS INCLUDE 234 BEDS AT THE [facility] Last Admin: 10/13/21 08:09 Dose: 5 mg Documented by: KUSUM Aspirin (Aspirin Enteric Coated 81 Mg Tablet.) 81 mg PO DAILY COUNTS INCLUDE 234 BEDS AT THE [facility] Last Admin: 10/13/21 08:09 Dose: 81 mg Documented by: KUSUM Dextrose (Dextrose 50 % 25 Gm/50 Ml Syringe) 25 gm IVPUSH Q15M PRN; Protocol PRN Reason: per Hypoglycemia Standing Ord. Fentanyl (Fentanyl Citrate/Pf 100 Mcg/2 Ml Vial) 50 mcg IVPUSH Q5M PRN; Protocol PRN Reason: Pain, Severe (Pain Scale 7-10) Gabapentin (Gabapentin 100 Mg Capsule) 200 mg PO BID COUNTS INCLUDE 234 BEDS AT THE [facility] Last Admin: 10/13/21 20:55 Dose: 200 mg Documented by: MERVIN Glucose (Glucose Gel 15 Gm Gel..Gram.) 15 gm PO Q15M PRN; Protocol PRN Reason: per Hypoglycemia Standing Ord. Hydralazine HCl (Hydralazine Hcl 50 Mg Tablet) 50 mg PO TID@0900,1200,1800 COUNTS INCLUDE 234 BEDS AT THE [facility]; Protocol Last Admin: 10/14/21 13:47 Dose: Not Given Documented by: HEIDY Non-Admin Reason: Off unit: Dialysis Vancomycin HCl 1,000 mg/ (Sodium Chloride) 270 mls @ 270 mls/hr IV TuThSa@1800 COUNTS INCLUDE 234 BEDS AT THE [facility] Promethazine HCl 12.5 mg/ (Sodium Chloride) 50.5 mls @ 202 mls/hr IV ONCE PRN PRN Reason: Nausea and Vomiting Insulin Glargine (Insulin Glargine,Hum.Rec.Anlog 100 Unit/Ml 10 Ml Vial) 22 unit SUBCUT BEDTIME COUNTS INCLUDE 234 BEDS AT THE [facility] Last Admin: 10/13/21 20:56 Dose: 22 unit Documented by: MERVIN Insulin Human Lispro (Insulin Lispro 100 Unit/Ml 3 Ml Vial) 0 unit SUBCUT QIDACHS COUNTS INCLUDE 234 BEDS AT THE [facility]; Protocol Last Admin: 10/14/21 08:15 Dose: 4 unit Documented by: HEIDY Levothyroxine Sodium (Levothyroxine Sodium 25 Mcg Tablet) 25 mcg PO DAILY@0600 COUNTS INCLUDE 234 BEDS AT THE [facility] Last Admin: 10/14/21 05:36 Dose: 25 mcg Documented by: MERVIN Lisinopril (Lisinopril 10 Mg Tablet) 10 mg PO BEDTIME COUNTS INCLUDE 234 BEDS AT THE [facility]; Protocol Last Admin: 10/13/21 20:55 Dose: 10 mg Documented by: MERVIN Melatonin (Melatonin 3 Mg Tablet) 6 mg PO BEDTIME PRN PRN Reason: Insomnia Metoprolol Tartrate (Metoprolol Tartrate 50 Mg Tablet) 50 mg PO BID COUNTS INCLUDE 234 BEDS AT THE [facility]; Protocol Last Admin: 10/13/21 20:55 Dose: 50 mg Documented by: MERVIN Morphine Sulfate (Morphine Sulfate 2 Mg/Ml Cartridge) 2 mg IVPUSH Q4H PRN; Protocol PRN Reason: Pain, Severe (Pain Scale 7-10) Last Admin: 10/13/21 18:01 Dose: 2 mg Documented by: KUSUM Omeprazole (Omeprazole 40 Mg Capsule.Dr) 40 mg PO DAILY COUNTS INCLUDE 234 BEDS AT THE [facility] Oxycodone HCl (Oxycodone Hcl Immed Release 5 Mg Tablet) 5 mg PO Q6H PRN PRN Reason: Pain, Moderate (Pain Scale 4-6 Pharmacy Consult (Consult Rx Vancomycin Dosing) 1 each MISCELLANE DAILY PRN PRN Reason: Consult order Senna (Sennosides 8.6 Mg Tablet) 17.2 mg PO BEDTIME PRN PRN Reason: Constipation Sevelamer Carbonate (Sevelamer Carbonate Tablet 800 Mg Tablet) 800 mg PO TIDAC COUNTS INCLUDE 234 BEDS AT THE [facility] Last Admin: 10/14/21 08:58 Dose: Not Given Documented by: HEIDY Non-Admin Reason: dialysis Sodium Chloride (0.9 % Sodium Chloride Flush 3 Ml Syringe) 3 ml IVFLUSH QSHIFT COUNTS INCLUDE 234 BEDS AT THE [facility] Last Admin: 10/14/21 13:46 Dose: Not Given Documented by: HEIDY Non-Admin Reason: Off unit: Dialysis Vitamin D (Cholecalciferol (Vitamin D3) 25 Mcg Tablet) 50 mcg PO DAILY COUNTS INCLUDE 234 BEDS AT THE [facility] Last Admin: 10/13/21 08:09 Dose: 50 mcg Documented by: KUSUM Labs CBC & Chem 7: 10/14/21 06:24 10/14/21 06:25 Labs: Laboratory Results - last 24 hr 10/13/21 10/13/21 10/14/21 15:18 20:12 06:24 MCV 93.4 MCH 30.5 MCHC 32.6 RDW 13.7 Plt Count 175 MPV 12.1 Absolute Nucleated RBC 0.000 Nucleated RBC % (auto) 0.0 Anion Gap Estim Creat Clear Calc Estimated GFR POC Glucose 250 H 332 H Random Glucose Calcium 10/14/21 10/14/21 06:25 07:15 MCV MCH MCHC RDW Plt Count MPV Absolute Nucleated RBC Nucleated RBC % (auto) Anion Gap 15 Estim Creat Clear Calc 9.9 Estimated GFR 6 POC Glucose 242 H Random Glucose 277 H Calcium 8.3 L Microbiology Microbiology Results: Microbiology 10/13/21 Unknown Gram Stain - Final Vulva Routine Culture - Preliminary Culture in progress. 10/12/21 16:50 Gram Stain - Final Vaginal Routine Culture - Final Staphylococcus aureus 10/12/21 18:33 Blood Culture - Preliminary Blood - Venous No growth after 24 hours. 10/12/21 18:33 Blood Culture - Preliminary Blood - Venous No growth after 24 hours. Procedures Date of Service Date of Service: 10/14/21 Progress Note: A&P Assessment and plan (1) Vulvar abscess: Status: Acute Assessment and Plan: status post I and D I pulled the packings a little bit plan to pull out all the packings tomorrow continue IV antibiotics seems to be doing well otherwise has ESRD - on hemodialysis Time Spent With Patient Time: Total time spent is greater than 50% in coordination of care (as documented) at patient's floor/unit and/or counseling patient: Quality Stroke Does the patient have a stroke diagnosis?: No VTE Prior VTE?: No VTE Risk Level:: Medical - moderate - high VTE Device Contraindication: Treatment Not Indicated VTE Drug Contraindication: N/A - Med Ordered
[2021-10-14 15:42] VITALS: BP 138/64; PULSE 70; RESP 18; TEMP 36.9; O2SAT 96
--- NOTE | 2021-10-14 15:54 | P.CNID_ITS ---
History of Present Illness Data of Consult Service Date: 10/14/21 Requesting physician: Gloria Jang Primary Care Provider: Faith No MD [facility] Reason for consult: inguinal abscesses She presents to hospital with redness and drainage in inguinal areas bilaterally. She has no fever or chills. She has had discomfort in groin area over last two months. She has seen Dr Chavez on 09/12 and was started on Doxycycline for two weeks. As soon as Doxycycline finished she has more pain and redness bilateral inguinal areas. Review of Systems Review of Systems: Yes all other systems are reviewed and are negative [facility] Past Medical History Medical History Asthma AV fistula CAD (coronary artery disease) CHF (congestive heart failure) Chronic cough Chronic low back pain without sciatica Depression Dialysis patient Dysphonia Dyspnea on exertion ESRD (end stage renal disease) ESRD needing dialysis GERD (gastroesophageal reflux disease) HLD (hyperlipidemia) HTN (hypertension) Kidney stones Normocytic anemia Obesity due to excess calories Osteoarthritis of both knees Renal failure (ARF), acute on chronic T2DM (type 2 diabetes mellitus) Thyroid disease Unstable gait Urinary frequency Family History Family History Father CVD (cardiovascular disease) Diabetes Mother Diabetes Sister Stomach cancer Family history: reviewed and not pertinent Surgical History Surgical History History of kidney surgery Hx of bone graft Hx of cholecystectomy Social History Social History Household Members: Spouse and Family Housing: House Do you presently have visiting nurse or other home services: No Unable to assess alcohol history related to: Unknown Alcohol intake: never Patient Tobacco Use Status: Never used Tobacco Use of substances other than those prescribed or required for medical reasons: No Currently Displaying Signs/Symptoms of Drug Intoxication Withdrawal: No Have you been hit, kicked, punched, or otherwise hurt by someone within the past year? If so, by whom?: No Do you feel safe in your current relationship?: Yes Is there a partner from a previous relationship who is making you feel unsafe now?: No Are you made to feel afraid or neglected: No Advance Directives: Yes Advance Directives on File: Yes Advance Directives Date on File: 02/15/21 Do you have thoughts of harming others: None Do you have a plan to hurt others: No Plan Recently lost weight without trying: No Nutrition Risks: No Nutritional Risk Patient : No : No Poor oral hygiene: No service: No Current occupational status: disabled Travel History Ebola Risk: Travel/Contact With Anyone From Affected Area/s: No Has Patient Experienced Ebola Symptoms: No Meds Allergies Allergy/AdvReac Type Severity Reaction Status Date / Time No Known Allergies Allergy Verified 09/12/21 14:01 [No Known Allergies*] Active Medications: Current Medications Acetaminophen (Acetaminophen 325 Mg Tablet) 650 mg PO Q6H PRN PRN Reason: Pain, Mild (Pain Scale 1-3) Last Admin: 10/13/21 00:13 Dose: 650 mg Documented by: Amlodipine Besylate (Amlodipine Besylate 10 Mg Tablet) 10 mg PO DAILY [facility]; Protocol Last Admin: 10/14/21 15:39 Dose: Not Given Documented by: Apixaban (Apixaban 5 Mg Tablet) 5 mg PO BID [facility] Last Admin: 10/14/21 15:32 Dose: Not Given Documented by: Aspirin (Aspirin Enteric Coated 81 Mg Tablet.Dr) 81 mg PO DAILY [facility] Last Admin: 10/14/21 15:39 Dose: Not Given Documented by: Dextrose (Dextrose 50 % 25 Gm/50 Ml Syringe) 25 gm IVPUSH Q15M PRN; Protocol PRN Reason: per Hypoglycemia Standing Ord. Fentanyl (Fentanyl Citrate/Pf 100 Mcg/2 Ml Vial) 50 mcg IVPUSH Q5M PRN; Protocol PRN Reason: Pain, Severe (Pain Scale 7-10) Gabapentin (Gabapentin 100 Mg Capsule) 200 mg PO BID [facility] Last Admin: 10/14/21 15:32 Dose: Not Given Documented by: Glucose (Glucose Gel 15 Gm Gel..Gram.) 15 gm PO Q15M PRN; Protocol PRN Reason: per Hypoglycemia Standing Ord. Hydralazine HCl (Hydralazine Hcl 50 Mg Tablet) 50 mg PO TID@0900,1200,1800 [facility]; Protocol Last Admin: 10/14/21 15:33 Dose: Not Given Documented by: Vancomycin HCl 1,000 mg/ (Sodium Chloride) 270 mls @ 270 mls/hr IV TuThSa@1800 [facility] Promethazine HCl 12.5 mg/ (Sodium Chloride) 50.5 mls @ 202 mls/hr IV ONCE PRN PRN Reason: Nausea and Vomiting Insulin Glargine (Insulin Glargine,Hum.Rec.Anlog 100 Unit/Ml 10 Ml Vial) 22 unit SUBCUT BEDTIME [facility] Last Admin: 10/13/21 20:56 Dose: 22 unit Documented by: Insulin Human Lispro (Insulin Lispro 100 Unit/Ml 3 Ml Vial) 0 unit SUBCUT QIDACHS [facility]; Protocol Last Admin: 10/14/21 15:33 Dose: Not Given Documented by: Levothyroxine Sodium (Levothyroxine Sodium 25 Mcg Tablet) 25 mcg PO DAILY@0600 [facility] Last Admin: 10/14/21 05:36 Dose: 25 mcg Documented by: Lisinopril (Lisinopril 10 Mg Tablet) 10 mg PO BEDTIME [facility]; Protocol Last Admin: 10/13/21 20:55 Dose: 10 mg Documented by: Melatonin (Melatonin 3 Mg Tablet) 6 mg PO BEDTIME PRN PRN Reason: Insomnia Metoprolol Tartrate (Metoprolol Tartrate 50 Mg Tablet) 50 mg PO BID [facility]; Protocol Last Admin: 10/14/21 15:32 Dose: Not Given Documented by: Morphine Sulfate (Morphine Sulfate 2 Mg/Ml Cartridge) 2 mg IVPUSH Q4H PRN; Protocol PRN Reason: Pain, Severe (Pain Scale 7-10) Last Admin: 10/13/21 18:01 Dose: 2 mg Documented by: Omeprazole (Omeprazole 40 Mg Capsule.Dr) 40 mg PO DAILY [facility] Last Admin: 10/14/21 15:41 Dose: Not Given Documented by: Oxycodone HCl (Oxycodone Hcl Immed Release 5 Mg Tablet) 5 mg PO Q6H PRN PRN Reason: Pain, Moderate (Pain Scale 4-6 Pharmacy Consult (Consult Rx Vancomycin Dosing) 1 each MISCELLANE DAILY PRN PRN Reason: Consult order Senna (Sennosides 8.6 Mg Tablet) 17.2 mg PO BEDTIME PRN PRN Reason: Constipation Sevelamer Carbonate (Sevelamer Carbonate Tablet 800 Mg Tablet) 800 mg PO TIDAC [facility] Last Admin: 10/14/21 15:33 Dose: Not Given Documented by: Sodium Chloride (0.9 % Sodium Chloride Flush 3 Ml Syringe) 3 ml IVFLUSH QSHIFT [facility] Last Admin: 10/14/21 13:46 Dose: Not Given Documented by: Vitamin D (Cholecalciferol (Vitamin D3) 25 Mcg Tablet) 50 mcg PO DAILY [facility] Last Admin: 10/14/21 15:41 Dose: Not Given Documented by: Home Medications Medication Instructions Recorded Confirmed Last Taken Type gabapentin 100 mg capsule 200 mg PO BID 02/12/21 10/12/21 06/27/21 History hydralazine 50 mg tablet 1 tab PO TID@0900,1200,1800 02/12/21 10/12/21 06/27/21 History levothyroxine 25 mcg tablet 1 tab PO QAM 02/12/21 10/12/21 06/27/21 History melatonin 5 mg tablet 5 mg PO BEDTIME 02/12/21 10/12/21 06/26/21 History atorvastatin 40 mg tablet 40 mg PO DAILY 02/26/21 10/12/21 06/27/21 History omeprazole 40 mg capsule,delayed 40 mg PO DAILY 02/26/21 10/12/21 06/27/21 History release sevelamer carbonate 800 mg tablet 800 mg PO TIDAC tab 02/26/21 10/12/21 06/27/21 History insulin lispro 100 unit/mL See Rx Instructions .ROUTE .COMPLEX 06/27/21 10/12/21 Unknown History subcutaneous pen (Humalog KwikPen (U-100) Insulin) aspirin 81 mg tablet,delayed 1 tab PO DAILY 10/12/21 10/12/21 Unknown History release cholecalciferol (vitamin D3) 50 1 cap PO QAM 10/12/21 10/12/21 Unknown History mcg (2,000 unit) capsule Physical Exam Vital Signs: Vital Signs: Last Vital Signs Temp 98.4 F 10/14/21 15:42 Pulse 70 10/14/21 15:42 Resp 18 10/14/21 15:42 BP 138/64 10/14/21 15:42 Pulse Ox 96 10/14/21 15:42 BMI result Body Mass Index 36.3 Const: General: cooperative HEENT: Head: Yes normal to inspection Mouth: Normal oral and palatal mucosa present Resp: Effort & Inspection: normal respiratory effort Cardio: Rate: regular rate Rhythm: regular rhythm GI: Palpation (GI): Soft to palpation and nontender : Other: inguinal area packing left side redness left more than right Results Labs CBC & Chem 7: 10/14/21 06:24 10/14/21 06:25 Labs: Short CBC 10/14/21 Range/Units 06:24 WBC 11.5 H (4.8-10.8) X10*3/uL Hgb 7.8 L (12.0-16.0) g/dl Hct 23.9 L (37.0-47.0) % Plt Count 175 (160-400) X10*3/uL BMP 10/14/21 06:25 Sodium 136 Potassium 4.4 D Chloride 99 Carbon Dioxide 26 BUN 50 H Creatinine 6.95 H* Calcium 8.3 L Microbiology Microbiology Results: Microbiology 10/13/21 Unknown Vulva Gram Stain - Final 10/13/21 Unknown Vulva Routine Culture - Preliminary Culture in progress. 10/12/21 16:50 Vaginal Gram Stain - Final 10/12/21 16:50 Vaginal Routine Culture - Final Staphylococcus aureus 10/12/21 18:33 Blood - Venous Blood Culture - Preliminary No growth after 24 hours. 10/12/21 18:33 Blood - Venous Blood Culture - Preliminary No growth after 24 hours. 10/12/21 18:33 Blood - Venous Blood Culture - Final 10/12/21 18:33 Blood - Venous Blood Culture - Final Assessment and Plan (1) Vulvar abscess: Status: Acute (2) Abscess of multiple sites: Status: Acute She has probable staph or MRSA. She is immunocompromised with renal failure on HD (seen in dialysis today). MRSA is consideration. Patient wishes to go home. Plan Continue Vancomycin for now especially as areas still have packing in them and cultures are still pending so should stay in house until cultures back and need no more surgical intervention. After this likely may need Vancomycin post HD for 1-2 weeks Po Doxycycline suppression may be used after this possible 100 mg po bid indefinitely. I can followup outpatient.
[2021-10-14 16:12] LABS: Glucose, Whole Blood 217 mg/dL (60-115)
--- NOTE | 2021-10-14 16:43 | PM.PNNEP ---
Subjective Subjective Date of Service: 10/14/21 Interval history: Chart Reviewed. Events noted. Physical Exam Vital Signs: Vital Signs: Last Vital Signs Temp 98.4 F 10/14/21 15:42 Pulse 70 10/14/21 15:42 Resp 18 10/14/21 15:42 BP 138/64 10/14/21 15:42 Pulse Ox 96 10/14/21 15:42 BMI result Body Mass Index 36.3 Const: General: no acute distress Orientation/consciousness: patient oriented x3 HEENT: Head: Yes normocephalic Neck: Neck: Yes no JVD Resp: Auscultation: clear to auscultation bilaterally Cardio: Jugular venous distension: no JVD Rate: regular rate Rhythm: regular rhythm Heart sounds: S1 normal heart sound present and S2 normal heart sound present GI: Auscultation: normal bowel sounds Neuro: General: patient oriented x3 and no focal motor deficits Extrem: General: Yes no clubbing, cyanosis or edema Objective Data Labs CBC & Chem 7: 10/14/21 06:24 10/14/21 06:25 Labs: Laboratory Results - last 24 hr 10/13/21 10/14/21 10/14/21 20:12 06:24 06:25 WBC 11.5 H RBC 2.56 L Hgb 7.8 L Hct 23.9 L MCV 93.4 MCH 30.5 MCHC 32.6 RDW 13.7 Plt Count 175 MPV 12.1 Absolute Nucleated RBC 0.000 Nucleated RBC % (auto) 0.0 Sodium 136 Potassium 4.4 D Chloride 99 Carbon Dioxide 26 Anion Gap 15 BUN 50 H Creatinine 6.95 H* Estim Creat Clear Calc 9.9 Estimated GFR 6 POC Glucose 332 H Random Glucose 277 H Calcium 8.3 L Random Vancomycin 10/14/21 10/14/21 10/14/21 07:15 15:47 16:08 WBC RBC Hgb Hct MCV MCH MCHC RDW Plt Count MPV Absolute Nucleated RBC Nucleated RBC % (auto) Sodium Potassium Chloride Carbon Dioxide Anion Gap BUN Creatinine Estim Creat Clear Calc Estimated GFR POC Glucose 242 H 217 H Random Glucose Calcium Random Vancomycin 8.0 L Microbiology Microbiology Results: Microbiology 10/13/21 Unknown Vulva Gram Stain - Final 10/13/21 Unknown Vulva Routine Culture - Preliminary Culture in progress. 10/12/21 16:50 Vaginal Gram Stain - Final 10/12/21 16:50 Vaginal Routine Culture - Final Staphylococcus aureus 10/12/21 18:33 Blood - Venous Blood Culture - Preliminary No growth after 24 hours. 10/12/21 18:33 Blood - Venous Blood Culture - Preliminary No growth after 24 hours. 10/12/21 18:33 Blood - Venous Blood Culture - Final 10/12/21 18:33 Blood - Venous Blood Culture - Final Procedures Date of Service Date of Service: 10/14/21 Assessment & Plan Assessment and plan (1) End stage renal disease on dialysis: Status: Acute (2) Cellulitis of left leg: Status: Acute Plan Plan ESRD on HD New onset AFIB DM HTN Continue HD today per MWF scehdule. Typically dialyzes 2nd shift at [facility] via left AVF. Vol removal as tolerated K per protocol F/u blood sugars Eliquis as per medical team Time Spent With Patient Time: Total time spent is greater than 50% in coordination of care (as documented) at patient's floor/unit and/or counseling patient: Progress Note: Quality Stroke Does the patient have a stroke diagnosis?: No
--- NOTE | 2021-10-14 16:44 | HE.PHANOTE ---
Post dialysis level is 8, give 500 mg now, changed order to 500 mg mowefr@1800 and next level 10/16@1600
[2021-10-14] MEDS: vancomycin HCL 500 MG in 0.9 % Sodium Chloride 100 ML 110 MG IV (17:12)
[2021-10-14] MEDS: Sevelamer Carbonate Tablet 800 MG TABLET PO (17:12)
[2021-10-14] MEDS: 0.9 % Sodium Chloride Flush 3 ML SYRINGE IVFLUSH ×2 (17:15→20:32)
[2021-10-14] MEDS: hydrALAZINE HCl 50 MG TABLET PO (18:14)
[2021-10-14 19:07] VITALS: BP 125/58; PULSE 67; RESP 18; TEMP 36.6; O2SAT 96
[2021-10-14 19:50] LABS: Glucose, Whole Blood 326 mg/dL (60-115)
[2021-10-14] MEDS: Gabapentin 100 MG CAPSULE 200 MG PO (20:31)
[2021-10-14] MEDS: Apixaban 5 MG TABLET PO (20:31)
[2021-10-14] MEDS: Metoprolol Tartrate 50 MG TABLET PO (20:31)
[2021-10-14] MEDS: Insulin Glargine,Hum.rec.anlog 100 UNIT/ML 10 ML VIAL 22 UNIT SUBCUT (20:32)
[2021-10-14] MEDS: lisinopriL 10 MG TABLET PO (20:32)
[2021-10-14 23:15] VITALS: BP 126/58; PULSE 70; RESP 16; TEMP 36.7; O2SAT 96
[2021-10-15 03:37] VITALS: BP 134/52; PULSE 74; RESP 16; TEMP 36.8; O2SAT 95
[2021-10-15] MEDS: Levothyroxine Sodium 25 MCG TABLET PO (05:38)
[2021-10-15 07:42] VITALS: BP 136/47; PULSE 66; RESP 18; TEMP 36.1; O2SAT 99
[2021-10-15 07:50] LABS: Glucose, Whole Blood 336 mg/dL (60-115)
[2021-10-15] MEDS: Omeprazole 40 MG CAPSULE.DR PO (07:55)
[2021-10-15] MEDS: Cholecalciferol (Vitamin D3) 25 MCG TABLET 50 MCG PO (07:55)
[2021-10-15] MEDS: Gabapentin 100 MG CAPSULE 200 MG PO (07:55)
[2021-10-15] MEDS: amLODIPine Besylate 10 MG TABLET PO (07:55)
[2021-10-15] MEDS: Apixaban 5 MG TABLET PO (07:55)
[2021-10-15] MEDS: Metoprolol Tartrate 50 MG TABLET PO (07:56)
[2021-10-15] MEDS: Insulin Lispro 100 UNIT/ML 3 ML VIAL SUBCUT ×2 (07:56→12:19)
[2021-10-15] MEDS: Aspirin Enteric Coated 81 MG TABLET.DR PO (07:56)
[2021-10-15] MEDS: 0.9 % Sodium Chloride Flush 3 ML SYRINGE IVFLUSH (07:56)
[2021-10-15] MEDS: hydrALAZINE HCl 50 MG TABLET PO ×2 (07:56→12:19)
[2021-10-15] MEDS: Sevelamer Carbonate Tablet 800 MG TABLET PO ×2 (07:56→12:19)
[2021-10-15] MEDS: oxyCODONE HCl Immed Release 5 MG TABLET PO (07:59)
--- NOTE | 2021-10-15 08:40 | HO.PM.IMPN ---
Subjective Subjective Date of Service: 10/15/21 Review of Systems follow up for labial/inguinal abscess/cellulitis reporting some pain no nausea or vomiting Physical Exam Vital Signs: Vital Signs: Last Vital Signs Temp 96.9 F 10/15/21 07:42 Pulse 66 10/15/21 07:42 Resp 18 10/15/21 07:42 BP 136/47 L 10/15/21 07:42 Pulse Ox 99 10/15/21 07:42 BMI result Body Mass Index 36.3 Appearing in no acute distress lung sounds are clear to auscultation heart regular rate rhythm, clear S1, S2 positive bowel sounds, abdomen is soft, nontender neuro patient is alert x3, no focal deficits Objective Data Active Medications Acetaminophen (Acetaminophen 325 Mg Tablet) 650 mg PO Q6H PRN PRN Reason: Pain, Mild (Pain Scale 1-3) Last Admin: 10/13/21 00:13 Dose: 650 mg Documented by: RAKESH Amlodipine Besylate (Amlodipine Besylate 10 Mg Tablet) 10 mg PO DAILY [facility]; Protocol Last Admin: 10/15/21 07:55 Dose: 10 mg Documented by: FARIBA Apixaban (Apixaban 5 Mg Tablet) 5 mg PO BID [facility] Last Admin: 10/15/21 07:55 Dose: 5 mg Documented by: FARIBA Aspirin (Aspirin Enteric Coated 81 Mg Tablet.Dr) 81 mg PO DAILY [facility] Last Admin: 10/15/21 07:56 Dose: 81 mg Documented by: FARIBA Dextrose (Dextrose 50 % 25 Gm/50 Ml Syringe) 25 gm IVPUSH Q15M PRN; Protocol PRN Reason: per Hypoglycemia Standing Ord. Fentanyl (Fentanyl Citrate/Pf 100 Mcg/2 Ml Vial) 50 mcg IVPUSH Q5M PRN; Protocol PRN Reason: Pain, Severe (Pain Scale 7-10) Gabapentin (Gabapentin 100 Mg Capsule) 200 mg PO BID [facility] Last Admin: 10/15/21 07:55 Dose: 200 mg Documented by: FARIBA Glucose (Glucose Gel 15 Gm Gel..Gram.) 15 gm PO Q15M PRN; Protocol PRN Reason: per Hypoglycemia Standing Ord. Hydralazine HCl (Hydralazine Hcl 50 Mg Tablet) 50 mg PO TID@0900,1200,1800 [facility]; Protocol Last Admin: 10/15/21 07:56 Dose: 50 mg Documented by: FARIBA Promethazine HCl 12.5 mg/ (Sodium Chloride) 50.5 mls @ 202 mls/hr IV ONCE PRN PRN Reason: Nausea and Vomiting Vancomycin HCl 500 mg/ Sodium (Chloride) 110 mls @ 110 mls/hr IV MOWEFR@1800 [facility] Last Infusion: 10/14/21 18:21 Dose: 0 mls/hr Documented by: HEIDY Insulin Glargine (Insulin Glargine,Hum.Rec.Anlog 100 Unit/Ml 10 Ml Vial) 22 unit SUBCUT BEDTIME [facility] Last Admin: 10/14/21 20:32 Dose: 22 unit Documented by: MERVIN Insulin Human Lispro (Insulin Lispro 100 Unit/Ml 3 Ml Vial) 0 unit SUBCUT QIDACHS [facility]; Protocol Last Admin: 10/15/21 07:56 Dose: 1 unit Documented by: FARIBA Levothyroxine Sodium (Levothyroxine Sodium 25 Mcg Tablet) 25 mcg PO DAILY@0600 [facility] Last Admin: 10/15/21 05:38 Dose: 25 mcg Documented by: MERVIN Lisinopril (Lisinopril 10 Mg Tablet) 10 mg PO BEDTIME [facility]; Protocol Last Admin: 10/14/21 20:32 Dose: 10 mg Documented by: MERVIN Melatonin (Melatonin 3 Mg Tablet) 6 mg PO BEDTIME PRN PRN Reason: Insomnia Metoprolol Tartrate (Metoprolol Tartrate 50 Mg Tablet) 50 mg PO BID [facility]; Protocol Last Admin: 10/15/21 07:56 Dose: 50 mg Documented by: FARIBA Morphine Sulfate (Morphine Sulfate 2 Mg/Ml Cartridge) 2 mg IVPUSH Q4H PRN; Protocol PRN Reason: Pain, Severe (Pain Scale 7-10) Last Admin: 10/13/21 18:01 Dose: 2 mg Documented by: KUSUM Omeprazole (Omeprazole 40 Mg Capsule.) 40 mg PO DAILY [facility] Last Admin: 10/15/21 07:55 Dose: 40 mg Documented by: FARIBA Oxycodone HCl (Oxycodone Hcl Immed Release 5 Mg Tablet) 5 mg PO Q6H PRN PRN Reason: Pain, Moderate (Pain Scale 4-6 Last Admin: 10/15/21 07:59 Dose: 5 mg Documented by: FARIBA Pharmacy Consult (Consult Rx Vancomycin Dosing) 1 each MISCELLANE DAILY PRN PRN Reason: Consult order Senna (Sennosides 8.6 Mg Tablet) 17.2 mg PO BEDTIME PRN PRN Reason: Constipation Sevelamer Carbonate (Sevelamer Carbonate Tablet 800 Mg Tablet) 800 mg PO TIDAC [facility] Last Admin: 10/15/21 07:56 Dose: 800 mg Documented by: FARIBA Sodium Chloride (0.9 % Sodium Chloride Flush 3 Ml Syringe) 3 ml IVFLUSH QSHIFT [facility] Last Admin: 10/15/21 07:56 Dose: 3 ml Documented by: FARIBA Vitamin D (Cholecalciferol (Vitamin D3) 25 Mcg Tablet) 50 mcg PO DAILY [facility] Last Admin: 10/15/21 07:55 Dose: 50 mcg Documented by: FARIBA Labs CBC & Chem 7: 10/15/21 08:42 10/15/21 08:42 Labs: Laboratory Results - last 24 hr 10/14/21 10/14/21 10/14/21 15:47 16:08 19:09 POC Glucose 217 H 326 H Random Vancomycin 8.0 L 10/15/21 07:41 POC Glucose 336 H Random Vancomycin Microbiology Microbiology Results: Microbiology 10/13/21 Unknown Gram Stain - Final Vulva Routine Culture - Preliminary Staphylococcus aureus 10/12/21 18:33 Blood Culture - Preliminary Blood - Venous No growth after 48 hours. 10/12/21 18:33 Blood Culture - Preliminary Blood - Venous No growth after 48 hours. 10/12/21 16:50 Gram Stain - Final Vaginal Routine Culture - Final Staphylococcus aureus Assessment and Plan (1) Abscess of multiple sites: Status: Acute Plan 56-year-old female with a past medical history of hypertension, hyperlipidemia, diabetes, ESRD on hemodialysis, AFib on Eliquis, CAD, CHF, history of inguinal /labial wounds/cellulitis failed outpatient antibiotic therapy; presented with worsening symptoms. Inguinal/labial cellulitis with abscess r/t diabetes wound culture growing staph aureus, final sensitivities pending Continue IV vancomycin for now s/p I&D 10/13/21 with mod purulent drainage to left labia and some to right labia packed with iodoform ID following ESRD on HD Nephrology consult continue home sevelamer Diabetes On Toujeo U-300 28 units at home, will convert to Lantus 22 units SSI, POCs, adjust as needed Hypertension Continue home amlodipine, hydralazine, Lisinopril,metoprolol HLD statin History of AFib continue metoprolol Ashly Hypothyroidism Continue home levothyroxine gerd continue prilosec DVT prophylaxis Eliquis Code status: Full code Attending Dr. Macedo patient requires ongoing hospitalization for IV antibiotics and surgical follow up s/p I&D Quality Stroke Does the patient have a stroke diagnosis?: No VTE Prior VTE?: No VTE Risk Level:: Medical - moderate - high VTE Device Contraindication: Treatment Not Indicated VTE Drug Contraindication: N/A - Med Ordered
[2021-10-15 08:53] LABS: Hematocrit 24.4 % (37.0-47.0); Mean Corpuscular HGB Conc 32.8 g/dl (31.0-35.0); Mean Corpuscular Hemoglobin 30.7 pg (27.0-33.0); Mean Corpuscular Volume 93.5 fL (80.0-98.0); Mean Platelet Volume 11.9 fL (9.4-12.3); Platelet Count 200 X10*3/uL (160-400); Red Blood Count 2.61 X10*6/uL (4.20-5.50); Red Cell Distribution Width 13.6 % (11.0-16.0); White Blood Count 10.7 X10*3/uL (4.8-10.8)
--- NOTE | 2021-10-15 09:10 | PM.PNGS ---
Subjective Subjective Date of Service: 10/15/21 <ADRIAN Vo - Last Filed: 10/15/21 09:19> 10/15/21 <Ron Morillo MD - Last Filed: 10/15/21 13:24> Interval history: Patient reports pain at the sites of incisions. Tolerating diet without difficulty. <ADRIAN Vo - Last Filed: 10/15/21 09:19> Physical Exam Vital Signs: Vital Signs: Last Vital Signs Temp 96.9 F 10/15/21 07:42 Pulse 66 10/15/21 07:42 Resp 18 10/15/21 07:42 BP 136/47 L 10/15/21 07:42 Pulse Ox 99 10/15/21 07:42 BMI result Body Mass Index 36.3 <ADRIAN Vo - Last Filed: 10/15/21 09:19> GI: Palpation (GI): Soft to palpation and nontender <ADRIAN Vo - Last Filed: 10/15/21 09:19> Skin: Other: three incisions of vulva with Iodoform packing, one incision (left lateral) with drain sutured in place. Serosanguinous drainage, no foul odor, no purulence noted. <ADRIAN Vo - Last Filed: 10/15/21 09:19> Objective Data Active Medications Acetaminophen (Acetaminophen 325 Mg Tablet) 650 mg PO Q6H PRN PRN Reason: Pain, Mild (Pain Scale 1-3) Last Admin: 10/13/21 00:13 Dose: 650 mg Documented by: RAKESH Amlodipine Besylate (Amlodipine Besylate 10 Mg Tablet) 10 mg PO DAILY [facility]; Protocol Last Admin: 10/15/21 07:55 Dose: 10 mg Documented by: FARIBA Apixaban (Apixaban 5 Mg Tablet) 5 mg PO BID [facility] Last Admin: 10/15/21 07:55 Dose: 5 mg Documented by: FARIBA Aspirin (Aspirin Enteric Coated 81 Mg Tablet.) 81 mg PO DAILY [facility] Last Admin: 10/15/21 07:56 Dose: 81 mg Documented by: FARIBA Dextrose (Dextrose 50 % 25 Gm/50 Ml Syringe) 25 gm IVPUSH Q15M PRN; Protocol PRN Reason: per Hypoglycemia Standing Ord. Fentanyl (Fentanyl Citrate/Pf 100 Mcg/2 Ml Vial) 50 mcg IVPUSH Q5M PRN; Protocol PRN Reason: Pain, Severe (Pain Scale 7-10) Gabapentin (Gabapentin 100 Mg Capsule) 200 mg PO BID [facility] Last Admin: 10/15/21 07:55 Dose: 200 mg Documented by: FARIBA Glucose (Glucose Gel 15 Gm Gel..Gram.) 15 gm PO Q15M PRN; Protocol PRN Reason: per Hypoglycemia Standing Ord. Hydralazine HCl (Hydralazine Hcl 50 Mg Tablet) 50 mg PO TID@0900,1200,1800 [facility]; Protocol Last Admin: 10/15/21 07:56 Dose: 50 mg Documented by: FARIBA Promethazine HCl 12.5 mg/ (Sodium Chloride) 50.5 mls @ 202 mls/hr IV ONCE PRN PRN Reason: Nausea and Vomiting Vancomycin HCl 500 mg/ Sodium (Chloride) 110 mls @ 110 mls/hr IV MOWEFR@1800 [facility] Last Infusion: 10/14/21 18:21 Dose: 0 mls/hr Documented by: HEIDY Insulin Glargine (Insulin Glargine,Hum.Rec.Anlog 100 Unit/Ml 10 Ml Vial) 22 unit SUBCUT BEDTIME [facility] Last Admin: 10/14/21 20:32 Dose: 22 unit Documented by: MERVIN Insulin Human Lispro (Insulin Lispro 100 Unit/Ml 3 Ml Vial) 0 unit SUBCUT QIDACHS [facility]; Protocol Last Admin: 10/15/21 07:56 Dose: 1 unit Documented by: FARIBA Levothyroxine Sodium (Levothyroxine Sodium 25 Mcg Tablet) 25 mcg PO DAILY@0600 [facility] Last Admin: 10/15/21 05:38 Dose: 25 mcg Documented by: MERVIN Lisinopril (Lisinopril 10 Mg Tablet) 10 mg PO BEDTIME [facility]; Protocol Last Admin: 10/14/21 20:32 Dose: 10 mg Documented by: MERVIN Melatonin (Melatonin 3 Mg Tablet) 6 mg PO BEDTIME PRN PRN Reason: Insomnia Metoprolol Tartrate (Metoprolol Tartrate 50 Mg Tablet) 50 mg PO BID [facility]; Protocol Last Admin: 10/15/21 07:56 Dose: 50 mg Documented by: FARIBA Morphine Sulfate (Morphine Sulfate 2 Mg/Ml Cartridge) 2 mg IVPUSH Q4H PRN; Protocol PRN Reason: Pain, Severe (Pain Scale 7-10) Last Admin: 10/13/21 18:01 Dose: 2 mg Documented by: KUSUM Omeprazole (Omeprazole 40 Mg Capsule.Dr) 40 mg PO DAILY [facility] Last Admin: 10/15/21 07:55 Dose: 40 mg Documented by: FARIBA Oxycodone HCl (Oxycodone Hcl Immed Release 5 Mg Tablet) 5 mg PO Q6H PRN PRN Reason: Pain, Moderate (Pain Scale 4-6 Last Admin: 10/15/21 07:59 Dose: 5 mg Documented by: FARIBA Pharmacy Consult (Consult Rx Vancomycin Dosing) 1 each MISCELLANE DAILY PRN PRN Reason: Consult order Senna (Sennosides 8.6 Mg Tablet) 17.2 mg PO BEDTIME PRN PRN Reason: Constipation Sevelamer Carbonate (Sevelamer Carbonate Tablet 800 Mg Tablet) 800 mg PO TIDAC [facility] Last Admin: 10/15/21 07:56 Dose: 800 mg Documented by: FARIBA Sodium Chloride (0.9 % Sodium Chloride Flush 3 Ml Syringe) 3 ml IVFLUSH QSHIFT [facility] Last Admin: 10/15/21 07:56 Dose: 3 ml Documented by: FARIBA Vitamin D (Cholecalciferol (Vitamin D3) 25 Mcg Tablet) 50 mcg PO DAILY [facility] Last Admin: 10/15/21 07:55 Dose: 50 mcg Documented by: FARIBA <ADRIAN Vo - Last Filed: 10/15/21 09:19> Labs CBC & Chem 7: : 10/15/21 08:42 10/15/21 08:42 <ADRIAN Vo - Last Filed: 10/15/21 09:19> Labs: Laboratory Results - last 24 hr 10/14/21 10/14/21 10/14/21 15:47 16:08 19:09 MCV MCH MCHC RDW Plt Count MPV Absolute Nucleated RBC Nucleated RBC % (auto) POC Glucose 217 H 326 H Random Vancomycin 8.0 L 10/15/21 10/15/21 07:41 08:42 MCV 93.5 MCH 30.7 MCHC 32.8 RDW 13.6 Plt Count 200 MPV 11.9 Absolute Nucleated RBC 0.000 Nucleated RBC % (auto) 0.0 POC Glucose 336 H Random Vancomycin <ADRIAN Vo - Last Filed: 10/15/21 09:19> Microbiology Microbiology Results: Microbiology 10/13/21 Unknown Gram Stain - Final Vulva Routine Culture - Preliminary Staphylococcus aureus 10/12/21 18:33 Blood Culture - Preliminary Blood - Venous No growth after 48 hours. 10/12/21 18:33 Blood Culture - Preliminary Blood - Venous No growth after 48 hours. 10/12/21 16:50 Gram Stain - Final Vaginal Routine Culture - Final Staphylococcus aureus <ADRIAN Vo - Last Filed: 10/15/21 09:19> Procedures Date of Service Date of Service: 10/15/21 <ADRIAN Vo - Last Filed: 10/15/21 09:19> Progress Note: A&P Assessment and plan (1) Vulvar abscess: Status: Acute <ADRIAN Vo - Last Filed: 10/15/21 09:19> Assessment and Plan: looks well and comfortable all packings and drain removed all I&D site seems to be healing no residual fluctuance or induration appropriate antibiotic coverage okay to DC home if with no other issues likely wound care with dry dressings, keep the areas clean she can follow-up in the office in 2 weeks seen and examined independently - agree with ADRIAN Plaza <Ron Morillo MD - Last Filed: 10/15/21 13:24> Plan 56 year old female with multiple vulvar abscesses s/p incision and drainage, POD2. PLAN: All packings and drain removed Incisions covered with DSD, ABD pad; change daily Continue antibiotics Cleared for discharge from surgical standpoint Discussed with Dr. Morillo <ADRIAN Vo - Last Filed: 10/15/21 09:19> Time Spent With Patient Time: Total time spent is greater than 50% in coordination of care (as documented) at patient's floor/unit and/or counseling patient: <ADRIAN Vo - Last Filed: 10/15/21 09:19> Quality Stroke Does the patient have a stroke diagnosis?: No <ADRIAN Vo - Last Filed: 10/15/21 09:19> VTE Prior VTE?: No <ADRIAN Vo - Last Filed: 10/15/21 09:19> VTE Risk Level:: Medical - moderate - high <ADRIAN Vo - Last Filed: 10/15/21 09:19> VTE Device Contraindication: Treatment Not Indicated <ADRIAN Vo - Last Filed: 10/15/21 09:19> VTE Drug Contraindication: N/A - Med Ordered <ADRIAN Vo - Last Filed: 10/15/21 09:19>
[2021-10-15 09:15] LABS: Creatinine Clr Calc Pharmacy 12.6; Estimated Glomerular Filt Rate 8
[2021-10-15 09:20] LABS: Anion Gap 15 (12-20); Blood Urea Nitrogen 38 mg/dL (9-16); Calcium 8.9 mg/dL (8.4-10.2); Carbon Dioxide 22 mmol/L (22-29); Chloride 101 mmol/L (96-108); Creatinine Clr Calc Pharmacy 12.6; Estimated Glomerular Filt Rate 8; Glucose Random 359 mg/dL (60-115); Potassium 4.2 mmol/L (3.3-5.1); Sodium 134 mmol/L (135-145)
[2021-10-15 11:42] VITALS: BP 138/54; PULSE 63; RESP 18; TEMP 36; O2SAT 100
[2021-10-15 11:48] LABS: Glucose, Whole Blood 307 mg/dL (60-115)
--- NOTE | 2021-10-15 14:07 | PM.IDPN ---
Subjective Subjective Date of Service: 10/15/21 Critical Care Time (minutes): 15 Comment: she feels better and less reddened area left groin Objective Data Labs CBC & Chem 7: 10/15/21 08:42 10/15/21 08:42 Labs: Laboratory Results - last 24 hr 10/14/21 10/14/21 10/14/21 15:47 16:08 19:09 WBC RBC Hgb Hct MCV MCH MCHC RDW Plt Count MPV Absolute Nucleated RBC Nucleated RBC % (auto) Sodium Potassium Chloride Carbon Dioxide Anion Gap BUN Creatinine Estim Creat Clear Calc Estimated GFR POC Glucose 217 H 326 H Random Glucose Calcium Random Vancomycin 8.0 L 10/15/21 10/15/21 10/15/21 07:41 08:42 08:42 WBC 10.7 RBC 2.61 L Hgb 8.0 L Hct 24.4 L MCV 93.5 MCH 30.7 MCHC 32.8 RDW 13.6 Plt Count 200 MPV 11.9 Absolute Nucleated RBC 0.000 Nucleated RBC % (auto) 0.0 Sodium Potassium Chloride Carbon Dioxide Anion Gap BUN Creatinine 5.47 H* Estim Creat Clear Calc 12.6 Estimated GFR 8 POC Glucose 336 H Random Glucose Calcium Random Vancomycin 10/15/21 10/15/21 08:42 11:39 WBC RBC Hgb Hct MCV MCH MCHC RDW Plt Count MPV Absolute Nucleated RBC Nucleated RBC % (auto) Sodium 134 L Potassium 4.2 Chloride 101 Carbon Dioxide 22 Anion Gap 15 BUN 38 H Creatinine 5.47 H* Estim Creat Clear Calc 12.6 Estimated GFR 8 POC Glucose 307 H Random Glucose 359 H* Calcium 8.9 D Random Vancomycin Microbiology Microbiology Results: Microbiology 10/13/21 Unknown Vulva Gram Stain - Final 10/13/21 Unknown Vulva Routine Culture - Preliminary Staphylococcus aureus 10/12/21 18:33 Blood - Venous Blood Culture - Preliminary No growth after 48 hours. 10/12/21 18:33 Blood - Venous Blood Culture - Preliminary No growth after 48 hours. 10/12/21 16:50 Vaginal Gram Stain - Final 10/12/21 16:50 Vaginal Routine Culture - Final Staphylococcus aureus 10/12/21 18:33 Blood - Venous Blood Culture - Final 10/12/21 18:33 Blood - Venous Blood Culture - Final Physical Exam Vital Signs: Vital Signs: Last Vital Signs Temp 96.8 F 10/15/21 11:42 Pulse 63 10/15/21 11:42 Resp 18 10/15/21 11:42 BP 138/54 L 10/15/21 11:42 Pulse Ox 100 10/15/21 11:42 BMI result Body Mass Index 36.3 Const: General: cooperative Resp: Effort & Inspection: normal respiratory effort Cardio: Rate: regular rate Rhythm: regular rhythm GI: Palpation (GI): Soft to palpation and nontender Extrem: Other: improved left inguinal area Assessment and Plan Assessment and plan (1) Vulvar abscess: Problem details: She has improving groin cellulitis. She has staph aureus,plus 4 culture pending Status: Acute (2) Abscess of multiple sites: Status: Acute Plan Continue Vancomycin for now Await cultures ?po Doxycycline outpatient. Time Spent With Patient Time: Total time spent is greater than 50% in coordination of care (as documented) at patient's floor/unit and/or counseling patient:
--- NOTE | 2021-10-15 14:31 | PM.DS ---
DS: Providers Provider Date of Service: 10/15/21 Date of admission: 10/12/21 19:31 Primary care physician: Faith No MD Consults: 10/12/21 19:31 Consult to General Surgery Routine Consulting Provider: Marixa Green Reason for consultation: inguinal cellulitis; Consult to Infectious Diseases Routine Consulting Provider: Isela Sunshine Reason for consultation: Inguinal cellulitis 10/12/21 19:35 Consult to Nephrology Routine Consulting Provider: Ismael Tinoco Reason for consultation: esrd DS: Diagnosis Discharge Diagnosis (1) Abscess of multiple sites: Status: Acute DS: Summary Hospital Course Hospital Course: HP as per admitting provider 56-year-old female with a past medical history of hypertension, hyperlipidemia, diabetes, CAD, CHF, ESRD on hemodialysis, history of kidney stones, obesity, osteoarthritis, thyroid disease, anxiety, depression, asthma, av fistula presented to the hospital with a chief complaint of inguinal wounds.?Patient reports that she had his infection in her inguinal wounds about a month ago; finished course of antibiotics; since last RTC noted to have increased pain and tenderness in her wounds in the inguinal and labial area.? Complains of subjective fevers.? Reports she had discharge when they wounds were pressed in the ER.?Denies any numbness tingling or focal weakness.? Denies any GI symptoms .? Inguinal/labial cellulitis with abscess r/t diabetes wound culture growing staph aureus treated with IV vancomycin initially s/p I&D 10/13/21 with mod purulent drainage to left labia and some to right labia packed with iodoform ID rec 2 weeks of doxycycline dry dressing f/u with general surgery in 1-2 weeks ESRD on HD? continue home sevelamer Diabetes continue home medications Hypertension Continue home amlodipine, hydralazine, Lisinopril,metoprolol HLD statin History of AFib continue metoprolol Hypothyroidism Continue home levothyroxine gerd continue prilosec Time Spent with Patient Time attestation: Total time spent providing and/or coordinating discharge services: Discharge coordination time: Greater than 30 minutes Quality: Safe Use of Opioids Does Pt have an Active Cancer Diagnosis on the Problem List?: No Quality: Stroke Does the patient have a stroke diagnosis?: No Physical Exam Vital Signs: Vital Signs: Last Vital Signs Temp 96.8 F 10/15/21 11:42 Pulse 63 10/15/21 11:42 Resp 18 10/15/21 11:42 BP 138/54 L 10/15/21 11:42 Pulse Ox 100 10/15/21 11:42 BMI result Body Mass Index 36.3 Appearing in no acute distress head is normocephalic atraumatic eyes pupils are PERRLA sclera is anicteric mouth throat mucous membranes are intact and moist neck is supple no lymphadenopathy, no JVD noted lung sounds are clear to auscultation heart regular rate rhythm, clear S1, S2 positive bowel sounds, abdomen is soft, nontender neuro patient is alert x3, no focal deficits DS: Data Data Completed and Pending Completed studies during hospitalization [Text1]: Procedures Performance of Urinary Filtration, Intermittent, Less than 6 Hours Per Day (02/12/21) Labs on day of discharge: Laboratory Results - last 24 hr 10/12/21 10/14/21 10/14/21 16:50 15:47 16:08 WBC RBC Hgb Hct MCV MCH MCHC RDW Plt Count MPV Absolute Nucleated RBC Nucleated RBC % (auto) Sodium Potassium Chloride Carbon Dioxide Anion Gap BUN Creatinine Estim Creat Clear Calc Estimated GFR POC Glucose 217 H Random Glucose Calcium Random Vancomycin 8.0 L Herpes Simplex Culture SEE NOTE 10/14/21 10/15/21 10/15/21 19:09 07:41 08:42 WBC RBC Hgb Hct MCV MCH MCHC RDW Plt Count MPV Absolute Nucleated RBC Nucleated RBC % (auto) Sodium Potassium Chloride Carbon Dioxide Anion Gap BUN Creatinine 5.47 H* Estim Creat Clear Calc 12.6 Estimated GFR 8 POC Glucose 326 H 336 H Random Glucose Calcium Random Vancomycin Herpes Simplex Culture 10/15/21 10/15/21 10/15/21 08:42 08:42 11:39 WBC 10.7 RBC 2.61 L Hgb 8.0 L Hct 24.4 L MCV 93.5 MCH 30.7 MCHC 32.8 RDW 13.6 Plt Count 200 MPV 11.9 Absolute Nucleated RBC 0.000 Nucleated RBC % (auto) 0.0 Sodium 134 L Potassium 4.2 Chloride 101 Carbon Dioxide 22 Anion Gap 15 BUN 38 H Creatinine 5.47 H* Estim Creat Clear Calc 12.6 Estimated GFR 8 POC Glucose 307 H Random Glucose 359 H* Calcium 8.9 D Random Vancomycin Herpes Simplex Culture Preliminary micro results at discharge 10/13/21 Unknown Routine Culture - Preliminary Vulva Staphylococcus aureus 10/12/21 18:33 Blood Culture - Preliminary Blood - Venous No growth after 48 hours. 10/12/21 18:33 Blood Culture - Preliminary Blood - Venous No growth after 48 hours. Discharge Plan Discharge Anticipated Discharge Date/Time: 10/15/21 14:21 Patient Disposition: Home, Self-Care Discharge Diagnosis: Inguinal/labial cellulitis with abscess Referrals: [facility] [Provider Group] (Inguinal and external genitalia abscesses) Faith Mason MD [Primary Care Provider] - 1 Week Fede Mackay MD [Physician] - (Multiple inguinal and genital abscesses) Discharge Medications: New oxycodone 5 mg tablet 5 mg PO TID PRN (Reason: severe pain (scale score 7-10)) Qty: 10 0RF doxycycline hyclate 100 mg tablet 100 mg PO BID Qty: 28 0RF Continued (DME) blood-glucose meter [FreeStyle Lite Meter] Kit See Rx Instructions .ROUTE .MEDSUPPLY Qty: 1 0RF Rx Instructions: As directed (DME) FreeStyle Lite Strips Strip See Rx Instructions .ROUTE .MEDSUPPLY Qty: 100 11RF Rx Instructions: As directed four times a day (DME) lancets [FreeStyle Lancets] 28 gauge misc See Rx Instructions .ROUTE .MEDSUPPLY Qty: 100 11RF Rx Instructions: As directed four times a day amlodipine 10 mg tablet 10 mg PO QAM 90 Days Qty: 90 3RF Eliquis 5 mg tablet 5 mg PO BID 90 Days Qty: 180 3RF lisinopril 10 mg tablet 10 mg PO BEDTIME 90 Days Qty: 90 3RF Januvia 25 mg tablet 25 mg PO QAM Qty: 30 6RF levothyroxine 25 mcg tablet 1 tab PO QAM 0RF hydralazine 50 mg tablet 1 tab PO TID@0900,1200,1800 0RF gabapentin 100 mg capsule 200 mg PO BID 0RF melatonin 5 mg tablet 5 mg PO BEDTIME 0RF atorvastatin 40 mg tablet 40 mg PO DAILY 0RF omeprazole 40 mg capsule,delayed release(DR/EC) 40 mg PO DAILY 0RF sevelamer carbonate 800 mg tablet 800 mg PO TIDAC 0RF aspirin 81 mg tablet,delayed release (DR/EC) 1 tab PO DAILY 0RF cholecalciferol (vitamin D3) 50 mcg (2,000 unit) capsule 1 cap PO QAM 0RF insulin lispro [Humalog KwikPen Insulin] 100 unit/mL insulin pen See Rx Instructions .ROUTE .COMPLEX 0RF Rx Instructions: SLIDING SCALE metoprolol tartrate 50 mg tablet 50 mg PO Q12H Qty: 60 0RF (DME) pen needle, diabetic [BD Ultra-Fine Micro Pen Needle] 32 gauge x 1/4 needle See Rx Instructions .ROUTE .MEDSUPPLY Qty: 150 11RF Rx Instructions: As directed 4 times a day Toujeo Max U-300 SoloStar 300 unit/mL (3 mL) insulin pen 28 unit subcut DAILY 30 Days Qty: 6 6RF Discharge Orders: Discharge Order (Routine); Ordered 10/15/21 Ordered By: Gloria Jang Diet: advance to usual diet Activity on Discharge: As tolerated Stand Alone Forms: Patient Portal Discharge page Activity Restrictions/Additional Instructions: Take the prescribed antibiotics as directed. On dialysis days take them after dialysis Follow-up with Dr. Mackay the general surgeon for monitoring and further evaluation of your wounds. Also recommend [facility] up at [facility], naming number below. It is important that you have tight glucose control at home. Monitor blood sugar 4 times per day Follow-up with your doctor on Thursday Take the prescribed medication as needed for severe pain. Also recommend Tylenol 1000 mg every 6 hours around the clock. Use warm soaks to the area several times per day. Use anti microbial soap. Keep area dry and free of moisture. If you develop new or worsening symptoms call 911 or come back to the ER for further evaluation. Care Plan Goals: Complete resolution of symptoms Health Concerns: Inguinal/labial cellulitis with abscess? Plan of Treatment: Follow up with your primary care provider as needed Follow up with the general surgeon as needed Take Doxycycline for 14 days Assessment: See discharge summary Patient Instructions: Abscess (ED)
--- NOTE | 2021-10-15 15:23 | MHC.CM.PN ---
NURSE HAND PAINTER NOTE ELECTRONIC MEDICAL RECORD [id number] ALOANG WITH CASE DISUCSSED WITH STAFF [facility] AND THE [facility] PER SURGICAL DOCUMENTATION THE WOUND PACKINGS AND DRAIN WERE REMOVED TODAY AND PATIENT JUST NEEDS DSD AND ABD COVERING. NO VNA SERVICES NEEDED SPOKE [facility] PATIENT WITH CLIENT LEADER - SHE IS AWARE THAT SHE WILLBE DISCHARGED HOME TODAY AND NOT NEED VNA SERVICES, SHE CAN PLACE A DS GAUZE AND ABD DRESSING ON HERSELF STAFF NURSES TO EXPLAINED THIS TO HER MORE . TRANSPORTATION FAMILY RESUMPTIONO F HER [facility]IALYSIS IN [facility] SHIFTY AT 11;15 AM SHE IS AWARE TO GO [facility]. FAXED [facility] CHARGE NURSE THE D/C PACKET. D/C SUMMARY AND LATEST HEMO DIALYSIS SHEET THEY WILL CALL RENAL PHUYSICIAN FOR ORDERS PATIENT WILL BE SENT HOME WITH SCRIPT FOR ORAL ABX .
--- NOTE | 2021-10-23 06:31 | OP_ITS ---
SURGEON: Marixa Green INDICATIONS: Patient is a 56-year-old diabetic female who has had drainage of these abscesses ongoing, now is here in the hospital with pelvic cellulitis with abscesses and surgical consultation is being had for drainage. PREOPERATIVE DIAGNOSIS: Vulvar abscesses. POSTOPERATIVE DIAGNOSIS: Vulvar abscesses. PROCEDURE PERFORMED: Incision and drainage of external vulvar abscesses. ESTIMATED BLOOD LOSS: COMPLICATIONS: ANESTHESIA: General. ASSISTANTS: SPECIMENS: DESCRIPTION OF PROCEDURE: Patient was brought into the operating room and placed in stirrups. She was intubated, please see anesthesia records for details. The vulva and pubic area were prepped and draped in standard surgical fashion. Attention was taken to the upper left pelvic area where there was breaking of the skin with purulent drainage occurring. The area here was probed with the snap and easily on the surface and tracked into deeper tunnel and cavity. This area was irrigated until the dissection opened it all up from complex abscess. The area again distally was opened up and the area was irrigated. Such that we can drain out the whole cavity. There were 2 other areas, 1 on the left labia and 1 on the right labia and right lateral aspect of the vulva, which also had drainage and was opened up in a similar fashion using some local numbing up the area and using the skin area that was already broken down and draining to probe and opened up with the snap. Hemostasis was achieved with packing with iodoform gauze dressings. The largest cavity was at the left suprapubic area than the left vulva area than the right vulva area. Culture was taken. At the end, sponges and mesh panties were in place. The patient was extubated, returned stable to the recovery room. Plan to follow up the culture results. Marixa Green SR/LG / [id number]
== END 2021-10-15 16:20 | disposition home or self-care (01) | DRG 531 ==
LOC: HO.ED 19:41 → HO.EDOVER 19:54 → HO.S3 10-13 02:08
PROVIDERS: Physician Assistant; Physician Assistant Medical; Surgery; Admitting Provider Hospitalist; Emergency Provider Emergency Medicine Emergency Medical Services; PCP Internal Medicine; Visit Provider Nurse Practitioner Acute Care
PROC: 0H9AXZZ Drainage of Inguinal Skin, External Approach (ICD-10-PCS; principal; 2021-10-13 15:30)
DX: N76.4 Abscess of vulva (principal); I13.2 Hypertensive heart and chronic kidney disease with heart failure and with stage 5 chronic kidney disease, or end stage renal disease; N18.6 End stage renal disease; E11.22 Type 2 diabetes mellitus with diabetic chronic kidney disease; L03.314 Cellulitis of groin; D63.1 Anemia in chronic kidney disease; E11.628 Type 2 diabetes mellitus with other skin complications; N76.2 Acute vulvitis; I25.10 Atherosclerotic heart disease of native coronary artery without angina pectoris; I48.91 Unspecified atrial fibrillation; E78.5 Hyperlipidemia, unspecified; E11.65 Type 2 diabetes mellitus with hyperglycemia; K21.9 Gastro-esophageal reflux disease without esophagitis; E03.9 Hypothyroidism, unspecified; J45.909 Unspecified asthma, uncomplicated; Z20.822 Contact with and (suspected) exposure to COVID-19; Z99.2 Dependence on renal dialysis; Z79.01 Long term (current) use of anticoagulants; Z79.2 Long term (current) use of antibiotics; Z79.4 Long term (current) use of insulin; Z79.890 Hormone replacement therapy; Z79.899 Other long term (current) drug therapy
CPT/HCPCS: 36415; 80048; 80202; 82565; 82947; 83605; 83735; 85025; 85027; 85652; 86140; 87040; 87071; 87077; 87186; 87205; 87255; 87635; 90999; 96365; 96375; 99232; 99284; 99285; J1100; J1200; J2250; J2270; J2405; J2543; J3010; J3370

== ENCOUNTER → 2021-10-17 14:20 | Outpatient (BNVA) | payer MEDICAID, SELFPAY | PROVIDERS: PCP Internal Medicine; Referring Provider Internal Medicine; Visit Provider Nurse Practitioner Family | DX: I25.10 Atherosclerotic heart disease of native coronary artery without angina pectoris (principal); I12.9 Hypertensive chronic kidney disease with stage 1 through stage 4 chronic kidney disease, or unspecified chronic kidney disease; N18.6 End stage renal disease; I48.92 Unspecified atrial flutter; R07.9 Chest pain, unspecified; Z98.890 Other specified postprocedural states | CPT/HCPCS: 99212 ==

== ENCOUNTER → 2021-11-14 13:33 | Outpatient (BNVA) | payer MEDICAID, SELFPAY | PROVIDERS: PCP Internal Medicine; Visit Provider Nurse Practitioner Gerontology | DX: E11.65 Type 2 diabetes mellitus with hyperglycemia (principal); E11.22 Type 2 diabetes mellitus with diabetic chronic kidney disease; I12.9 Hypertensive chronic kidney disease with stage 1 through stage 4 chronic kidney disease, or unspecified chronic kidney disease; N18.6 End stage renal disease; E78.5 Hyperlipidemia, unspecified; Z99.2 Dependence on renal dialysis | CPT/HCPCS: 82947; 83036; 96372; 99211; 99212; J1815 ==

== ENCOUNTER 2021-11-16 15:09 | Emergency (ER) | payer MEDICAID, SELFPAY ==
[2021-11-16 15:17] VITALS: BP 140/82; PULSE 68; O2SAT 99
--- NOTE | 2021-11-16 15:20 | ECG_ITS ---
Test Reason : NEAR-SYNCOPE Blood Pressure : / mmHG Vent. Rate : 067 BPM Atrial Rate : 067 BPM P-R Int : 236 ms QRS Dur : 084 ms QT Int : 412 ms P-R-T Axes : -10 014 078 degrees QTc Int : 435 ms Sinus rhythm with 1st degree A-V block Anterolateral infarct (cited on or before 27-JUN-2021) Abnormal ECG When compared with ECG of 27-JUN-2021 12:53, Sinus rhythm has replaced Atrial flutter Vent. rate has decreased BY 45 BPM Questionable change in QRS axis Nonspecific T wave abnormality no longer evident in Inferior leads T wave inversion more evident in Lateral leads Referred By: Generic ED Physician Electronically Signed By:GIANFRANCO OSORIO MD
[2021-11-16 15:22] VITALS: BP 125/52; PULSE 70; RESP 18; TEMP 37; O2SAT 100; BMI 36.3
== END 2021-11-16 18:49 | disposition left against medical advice (07) ==
PROVIDERS: Emergency Provider Emergency Medicine
DX: R55 Syncope and collapse (principal); R53.1 Weakness
CPT/HCPCS: 93005; 99282; 99283

== ENCOUNTER 2021-11-22 01:12 | Emergency (ER) | payer MEDICAID, SELFPAY ==
--- NOTE | 2021-11-22 | ECG_ITS ---
Test Reason : cp Blood Pressure : / mmHG Vent. Rate : 067 BPM Atrial Rate : 067 BPM P-R Int : 234 ms QRS Dur : 084 ms QT Int : 424 ms P-R-T Axes : -09 018 058 degrees QTc Int : 448 ms Sinus rhythm with 1st degree A-V block Anterior infarct (cited on or before 27-JUN-2021) Abnormal ECG When compared with ECG of 16-NOV-2021 15:35, No significant change was found Referred By: Generic ED Physician Electronically Signed By:CHI URIBE
[2021-11-22 01:31] VITALS: BP 156/56; PULSE 68; RESP 18; TEMP 37.1; O2SAT 100; BMI 37.8
[2021-11-22 01:34] LABS: Hematocrit 27.5 % (37.0-47.0); Hemoglobin 9.1 g/dl (12.0-16.0); Mean Corpuscular HGB Conc 33.1 g/dl (31.0-35.0); Mean Corpuscular Hemoglobin 31.5 pg (27.0-33.0); Mean Corpuscular Volume 95.2 fL (80.0-98.0); Mean Platelet Volume 11.2 fL (9.4-12.3); Platelet Count 230 X10*3/uL (160-400); Red Blood Count 2.89 X10*6/uL (4.20-5.50); Red Cell Distribution Width 14.1 % (11.0-16.0); White Blood Count 9.4 X10*3/uL (4.8-10.8)
[2021-11-22 01:48] LABS: COVID-19 Test Negative (Negative)
[2021-11-22 02:10] LABS: Alanine Aminotransferase 9 U/L (0-31); Albumin Level 3.7 g/dL (3.5-5.0); Alkaline Phosphatase 88 U/L (39-117); Anion Gap 16 (12-20); Aspartate Amino Transferase 9 U/L (5-31); Bilirubin Total 0.2 mg/dL (0.0-1.0); Blood Urea Nitrogen 52 mg/dL (9-16); Calcium 8.9 mg/dL (8.4-10.2); Carbon Dioxide 27 mmol/L (22-29); Chloride 98 mmol/L (96-108); Creatinine Clr Calc Pharmacy 12.5; Estimated Glomerular Filt Rate 8; Glucose Random 372 mg/dL (60-115); Potassium 4.7 mmol/L (3.3-5.1); Sodium 136 mmol/L (135-145); Total Protein 6.8 g/dL (6.5-8.0)
[2021-11-22 02:18] LABS: Troponin-I High Sensitivity 123.8 ng/L (<3.5-17.0)
--- NOTE | 2021-11-22 02:18 | ED_ITS ---
HPI - Chest Pain General Chief Complaint: Chest Pain Stated Complaint: high blood sugar, cp Time Seen by Provider: 11/22/21 02:18 Source: patient Mode of arrival: ambulatory Limitations: no limitations History of Present Illness HPI narrative: Patient 56 years old with history of hypertension hyperlipidemia and diabetes ESRD on dialysis paroxysmal atrial fibrillation on Eliquis had cardiac catheterization on 09/03/2021 with multivessel disease less than 30% blockage comes here as blood sugar was elevated today more than 300 . Patient took her Lantus insulin and and Humalog at 20:00 blood sugar on arrival was 325 patient also complaining of mid chest pain similar to that in the past no shortness of breath patient had dialysis today Related Data Home Medications Medication Instructions Recorded Confirmed gabapentin 100 mg capsule 200 mg PO BID neuropathic pain 02/12/21 10/20/21 hydralazine 50 mg tablet 1 tab PO TID@0900,1200,1800 blood 02/12/21 10/20/21 pressure levothyroxine 25 mcg tablet 1 tab PO QAM 02/12/21 11/14/21 melatonin 5 mg tablet 5 mg PO BEDTIME 02/12/21 10/20/21 atorvastatin 40 mg tablet 40 mg PO DAILY cholesterol 02/26/21 11/14/21 omeprazole 40 mg capsule,delayed 40 mg PO DAILY 02/26/21 10/20/21 release sevelamer carbonate 800 mg tablet 800 mg PO TIDAC 02/26/21 10/20/21 insulin lispro 100 unit/mL See Rx Instructions .Route .COMPLEX 06/27/21 10/20/21 subcutaneous pen (Humalog KwikPen (U-100) Insulin) aspirin 81 mg tablet,delayed 1 tab PO DAILY 10/12/21 11/14/21 release cholecalciferol (vitamin D3) 50 1 cap PO QAM 10/12/21 11/14/21 mcg (2,000 unit) capsule Previous Rx's Medication Instructions Recorded blood-glucose meter (FreeStyle #1 ea 04/24/21 Lite Meter) blood sugar diagnostic (FreeStyle #100 ea 05/29/21 Lite Strips) lancets 28 gauge (FreeStyle #100 ea 05/29/21 Lancets) pen needle, diabetic 32 gauge x #150 ea 06/13/2105/28 (BD Ultra-Fine Micro Pen Needle) metoprolol tartrate 50 mg tablet 50 mg PO Q12H #60 tabs 06/28/21 amlodipine 10 mg tablet 10 mg PO QAM blood pressure 90 08/02/21 days #90 tabs apixaban 5 mg tablet (Eliquis) 5 mg PO BID 90 days #180 tabs 08/02/21 lisinopril 10 mg tablet 10 mg PO BEDTIME blood pressure 90 08/02/21 days #90 tabs insulin glargine U-300 conc 300 28 unit (0.0933 mL) subcut DAILY 09/12/21 unit/mL (3 mL) subcutaneous pen 30 days #6 mL (Toujeo Max U-300 SoloStar) sitagliptin 25 mg tablet (Januvia) 25 mg PO QAM #30 tabs 09/16/21 doxycycline hyclate 100 mg tablet 100 mg PO BID #28 tabs 10/15/21 oxycodone 5 mg tablet 5 mg PO Q8H PRN pain #9 tabs 10/15/21 Allergies Allergy/AdvReac Type Severity Reaction Status Date / Time No Known Allergies Allergy Verified 11/14/21 13:44 [No Known Allergies*] Review of Systems Review of Systems: Yes all other systems are reviewed and are negative PMF Past Medical History Medical History Asthma AV fistula CAD (coronary artery disease) CHF (congestive heart failure) Chronic cough Chronic low back pain without sciatica Depression Dialysis patient Dysphonia Dyspnea on exertion End stage renal disease on dialysis ESRD (end stage renal disease) ESRD needing dialysis GERD (gastroesophageal reflux disease) HLD (hyperlipidemia) HTN (hypertension) Kidney stones Normocytic anemia Obesity due to excess calories Osteoarthritis of both knees Renal failure (ARF), acute on chronic T2DM (type 2 diabetes mellitus) Thyroid disease Unstable gait Urinary frequency Surgical History History of kidney surgery Hx of bone graft Hx of cholecystectomy Family History Family History Father CVD (cardiovascular disease) Diabetes Mother Diabetes Sister Stomach cancer Social History Social History Household Members: Spouse and Family Housing: House Do you presently have visiting nurse or other home services: No Unable to assess alcohol history related to: Unknown Alcohol intake: never Patient Tobacco Use Status: Never used Tobacco Advance Directives: Yes Advance Directives on File: Yes Advance Directives Date on File: 02/15/21 service: No Current occupational status: disabled Physical Exam Vital Signs: Vital Signs: Last Vital Signs Temp 98.8 F 11/22/21 01:31 Pulse 66 11/22/21 04:14 Resp 12 11/22/21 04:14 BP 150/50 H 11/22/21 04:14 Pulse Ox 99 11/22/21 04:14 O2 Del Method 11/22/21 04:14 BMI result Body Mass Index 37.8 Appearance: Alert. Oriented X3. No acute distress. Obese patient Eyes: PERRLA, No Nystagmus ENT: Pharynx normal. Oral Mucosa moist Neck: Normal inspection. Neck supple. CVS: Normal heart rate and rhythm. Pulses normal. Respiratory: No respiratory distress. Equal air entry bilateral, no wheezing/rales/rhonchi Abdomen: Soft and nontender. Bowel sounds are present, no mass palpable, no CVA tenderness Skin: Skin warm and dry. Normal skin color. Normal skin turgor. Extremities: No lower extremity edema. No calf tenderness AV fistula left arm Neuro: Oriented X 3. No motor deficit. No sensory deficit. MDM - Chest Pain MDM Narrative Medical decision making narrative: Patient is hyperglycemic post dialysis likely from fluid contraction and noncompliance initial improved after insulin will discharge patient home advised to have some extra fluid today Medical Records Data Attestation: I reviewed the patient's medical records. Lab Data Attestation: I reviewed the patient's lab results. Result diagrams: 11/22/21 01:18 11/22/21 01:18 Labs: Lab Results 11/22/21 11/22/21 11/22/21 Range/Units 01:18 01:18 01:18 WBC 9.4 (4.8-10.8) X10*3/uL RBC 2.89 L (4.20-5.50) X10*6/uL Hgb 9.1 L (12.0-16.0) g/dl Hct 27.5 L (37.0-47.0) % MCV 95.2 (80.0-98.0) fL MCH 31.5 (27.0-33.0) pg MCHC 33.1 (31.0-35.0) g/dl RDW 14.1 (11.0-16.0) % Plt Count 230 (160-400) X10*3/uL MPV 11.2 (9.4-12.3) fL Absolute Nucleated RBC 0.000 (0.0-0.012) X10*3/uL Nucleated RBC % (auto) 0.0 (0.0-0.2) /100WBC Sodium 136 (135-145) mmol/L Potassium 4.7 (3.3-5.1) mmol/L Chloride 98 (96-108) mmol/L Carbon Dioxide 27 (22-29) mmol/L Anion Gap 16 (12-20) BUN 52 H (9-16) mg/dL Creatinine 5.62 H* (0.5-1.4) mg/dL Estim Creat Clear Calc 12.5 Estimated GFR 8 POC Glucose (60-115) mg/dL Random Glucose 372 H* (60-115) mg/dL Calcium 8.9 (8.4-10.2) mg/dL Total Bilirubin 0.2 (0.0-1.0) mg/dL AST 9 (5-31) U/L ALT 9 (0-31) U/L Alkaline Phosphatase 88 D (39-117) U/L Troponin I High Sens 123.8 H* (<3.5-17.0) ng/L Total Protein 6.8 (6.5-8.0) g/dL Albumin 3.7 (3.5-5.0) g/dL Urine Color Urine Appearance Urine pH (5.0-8.0) Ur Specific [place] (1.005-1.025) Urine Protein (NEG-TRACE) MG/DL Urine Glucose (UA) (NEG) MG/DL Urine Ketones (NEG) MG/DL Urine Blood (NEG) Urine Nitrite (NEG) Ur Leukocyte Esterase (NEG) Urine RBC (0) /HPF Urine WBC (0-4) /HPF Urine WBC Clumps Ur Squamous Epith Cells /LPF Urine Bacteria /LPF COVID-19 ([facility]HA) (Negative) COVID-19 Clin Com 11/22/21 11/22/21 11/22/21 Range/Units 01:18 02:27 03:28 WBC (4.8-10.8) X10*3/uL RBC (4.20-5.50) X10*6/uL Hgb (12.0-16.0) g/dl Hct (37.0-47.0) % MCV (80.0-98.0) fL MCH (27.0-33.0) pg MCHC (31.0-35.0) g/dl RDW (11.0-16.0) % Plt Count (160-400) X10*3/uL MPV (9.4-12.3) fL Absolute Nucleated RBC (0.0-0.012) X10*3/uL Nucleated RBC % (auto) (0.0-0.2) /100WBC Sodium (135-145) mmol/L Potassium (3.3-5.1) mmol/L Chloride (96-108) mmol/L Carbon Dioxide (22-29) mmol/L Anion Gap (12-20) BUN (9-16) mg/dL Creatinine (0.5-1.4) mg/dL Estim Creat Clear Calc Estimated GFR POC Glucose 325 H 330 H (60-115) mg/dL Random Glucose (60-115) mg/dL Calcium (8.4-10.2) mg/dL Total Bilirubin (0.0-1.0) mg/dL AST (5-31) U/L ALT (0-31) U/L Alkaline Phosphatase (39-117) U/L Troponin I High Sens (<3.5-17.0) ng/L Total Protein (6.5-8.0) g/dL Albumin (3.5-5.0) g/dL Urine Color Urine Appearance Urine pH (5.0-8.0) Ur Specific [place] (1.005-1.025) Urine Protein (NEG-TRACE) MG/DL Urine Glucose (UA) (NEG) MG/DL Urine Ketones (NEG) MG/DL Urine Blood (NEG) Urine Nitrite (NEG) Ur Leukocyte Esterase (NEG) Urine RBC (0) /HPF Urine WBC (0-4) /HPF Urine WBC Clumps Ur Squamous Epith Cells /LPF Urine Bacteria /LPF COVID-19 (AYESHA) Negative (Negative) COVID-19 Clin Com See Note 11/22/21 Range/Units 03:39 WBC (4.8-10.8) X10*3/uL RBC (4.20-5.50) X10*6/uL Hgb (12.0-16.0) g/dl Hct (37.0-47.0) % MCV (80.0-98.0) fL MCH (27.0-33.0) pg MCHC (31.0-35.0) g/dl RDW (11.0-16.0) % Plt Count (160-400) X10*3/uL MPV (9.4-12.3) fL Absolute Nucleated RBC (0.0-0.012) X10*3/uL Nucleated RBC % (auto) (0.0-0.2) /100WBC Sodium (135-145) mmol/L Potassium (3.3-5.1) mmol/L Chloride (96-108) mmol/L Carbon Dioxide (22-29) mmol/L Anion Gap (12-20) BUN (9-16) mg/dL Creatinine (0.5-1.4) mg/dL Estim Creat Clear Calc Estimated GFR POC Glucose (60-115) mg/dL Random Glucose (60-115) mg/dL Calcium (8.4-10.2) mg/dL Total Bilirubin (0.0-1.0) mg/dL AST (5-31) U/L ALT (0-31) U/L Alkaline Phosphatase (39-117) U/L Troponin I High Sens (<3.5-17.0) ng/L Total Protein (6.5-8.0) g/dL Albumin (3.5-5.0) g/dL Urine Color YELLOW Urine Appearance HAZY Urine pH 8.0 (5.0-8.0) Ur Specific [place] 1.010 (1.005-1.025) Urine Protein 2+ H (NEG-TRACE) MG/DL Urine Glucose (UA) >=1000 H (NEG) MG/DL Urine Ketones NEG (NEG) MG/DL Urine Blood TRACE (NEG) Urine Nitrite NEG (NEG) Ur Leukocyte Esterase TRACE H (NEG) Urine RBC 0-2 (0) /HPF Urine WBC 10-14 H (0-4) /HPF Urine WBC Clumps NOTED Ur Squamous Epith Cells 3+ /LPF Urine Bacteria 1+ /LPF COVID-19 ([facility]) (Negative) COVID-19 Clin Com Discharge Plan Discharge Clinical Impression: Diabetes mellitus with hyperglycemia Patient Disposition: Home, Self-Care Instructions: Diabetic Hyperglycemia (ED) Additional Instructions: Continue take your insulin Drinking about 1 L of fluid daily Follow with PCP Prescriptions: No Action (DME) blood-glucose meter [FreeStyle Lite Meter] Kit See Rx Instructions .ROUTE .MEDSUPPLY Qty: 1 0RF Rx Instructions: As directed (DME) FreeStyle Lite Strips Strip See Rx Instructions .ROUTE .MEDSUPPLY Qty: 100 11RF Rx Instructions: As directed four times a day (DME) lancets [FreeStyle Lancets] 28 gauge misc See Rx Instructions .ROUTE .MEDSUPPLY Qty: 100 11RF Rx Instructions: As directed four times a day amlodipine 10 mg tablet 10 mg PO QAM 90 Days Qty: 90 3RF Eliquis 5 mg tablet 5 mg PO BID 90 Days Qty: 180 3RF lisinopril 10 mg tablet 10 mg PO BEDTIME 90 Days Qty: 90 3RF Januvia 25 mg tablet 25 mg PO QAM Qty: 30 6RF levothyroxine 25 mcg tablet 1 tab PO QAM hydralazine 50 mg tablet 1 tab PO TID@0900,1200,1800 gabapentin 100 mg capsule 200 mg PO BID melatonin 5 mg tablet 5 mg PO BEDTIME atorvastatin 40 mg tablet 40 mg PO DAILY omeprazole 40 mg capsule,delayed release(DR/EC) 40 mg PO DAILY sevelamer carbonate 800 mg tablet 800 mg PO TIDAC aspirin 81 mg tablet,delayed release (DR/EC) 1 tab PO DAILY cholecalciferol (vitamin D3) 50 mcg (2,000 unit) capsule 1 cap PO QAM doxycycline hyclate 100 mg tablet 100 mg PO BID Qty: 28 0RF oxycodone 5 mg tablet 5 mg PO Q8H PRN (Reason: pain) Qty: 9 0RF insulin lispro [Humalog KwikPen Insulin] 100 unit/mL insulin pen See Rx Instructions .ROUTE .COMPLEX Rx Instructions: SLIDING SCALE metoprolol tartrate 50 mg tablet 50 mg PO Q12H Qty: 60 0RF (DME) pen needle, diabetic [BD Ultra-Fine Micro Pen Needle] 32 gauge x 1/4 needle See Rx Instructions .ROUTE .MEDSUPPLY Qty: 150 11RF Rx Instructions: As directed 4 times a day Toujeo Max U-300 SoloStar 300 unit/mL (3 mL) insulin pen 28 unit subcut DAILY 30 Days Qty: 6 6RF
[2021-11-22 02:21] VITALS: BP 172/53; PULSE 65; RESP 18; O2SAT 97
[2021-11-22 02:31] LABS: Glucose, Whole Blood 325 mg/dL (60-115)
[2021-11-22 02:43] VITALS: BP 137/62; PULSE 67; RESP 12; O2SAT 100
[2021-11-22] MEDS: Insulin Lispro 100 UNIT/ML 3 ML VIAL 8 UNIT SUBCUT (02:44)
--- NOTE | 2021-11-22 03:31 | PC.NURSE ---
POC 330 at this time.
[2021-11-22 03:34] LABS: Glucose, Whole Blood 330 mg/dL (60-115)
[2021-11-22] MEDS: Insulin Lispro 100 UNIT/ML 3 ML VIAL 10 UNIT SUBCUT (03:40)
[2021-11-22 03:44] LABS: Appearance Urine HAZY; Color Urine YELLOW; Glucose Urine UA >=1000 MG/DL (NEG); Leukocyte Esterase Urine TRACE (NEG); Nitrite Urine NEG (NEG); UACC Culture Trigger NO; Urine Blood TRACE (NEG); Urine Ketones NEG (NEG); Urine Protein 2+ MG/DL (NEG-TRACE)
[2021-11-22 03:55] LABS: Bacteria Urine 1+ /LPF; RBC Urine 0-2 /HPF (0); Squamous Epithelial Cell Urine 3+ /LPF; UACC CULT YES; WBC Clumps Urine NOTED
[2021-11-22 04:14] VITALS: BP 150/50; PULSE 66; RESP 12; O2SAT 99
[2021-11-22 05:20] LABS: Glucose, Whole Blood 256 mg/dL (60-115)
[2021-11-22 05:24] VITALS: BP 137/45; PULSE 62; RESP 14; O2SAT 99
== END 2021-11-22 05:30 | disposition home or self-care (01) ==
PROVIDERS: Emergency Provider Internal Medicine; PCP Internal Medicine
DX: E11.65 Type 2 diabetes mellitus with hyperglycemia (principal); I48.91 Unspecified atrial fibrillation; R07.89 Other chest pain; I10 Essential (primary) hypertension; E78.5 Hyperlipidemia, unspecified; Z79.01 Long term (current) use of anticoagulants; Z79.899 Other long term (current) drug therapy; Z79.4 Long term (current) use of insulin
CPT/HCPCS: 36415; 80053; 81001; 82947; 84484; 85027; 87086; 87635; 93005; 99283; 99285

== ENCOUNTER → 2022-02-13 14:14 | Outpatient (BNVA) | payer MEDICAID, SELFPAY | PROVIDERS: PCP Internal Medicine; Visit Provider Internal Medicine Endocrinology, Diabetes & Metabolism | DX: E11.22 Type 2 diabetes mellitus with diabetic chronic kidney disease (principal); N18.6 End stage renal disease; E11.65 Type 2 diabetes mellitus with hyperglycemia | CPT/HCPCS: 82947; 83036; 99212 ==

== ENCOUNTER → 2022-03-25 13:22 | Outpatient (BNVA) | payer MEDICAID, SELFPAY | PROVIDERS: PCP Internal Medicine; Visit Provider Internal Medicine Pulmonary Disease | DX: G47.33 Obstructive sleep apnea (adult) (pediatric) (principal) | CPT/HCPCS: 99212 ==

== ENCOUNTER 2022-05-01 15:09 | Inpatient (IN) | payer MEDICAID, SELFPAY ==
--- NOTE | ~2022-05-01 | CT_ITS ---
EXAMINATION: CT CHEST WITHOUT CONTRAST CLINICAL INFORMATION: Question of aspiration to bilateral bases on abdominal CT scan COMPARISON: Multiple priors with the last chest x-ray of 06/27/[address] of 02/14/2020 TECHNIQUE: Multidetector volumetric CT imaging of the chest was done. Axial MIP volume rendering provided. Sagittal and coronal reformatted images were obtained. This CT examination was performed using dose optimization techniques as appropriate, variously including the following: *Automated exposure control *Adjustment of mA and/or kV according to patient size (this includes techniques or standardized protocols for targeted exams where dose is matched to indication/reason for exam; i.e. extremities or head) *Use of iterative reconstruction technique DLP: 366 mGy-cm FINDINGS: LUNGS: Mosaic appearance of the lung parenchyma is noted which can be seen in the setting of small airway disease are small vessel disease. Small focal area of ill-defined airspace opacity is noted in the right lower lobe posteriorly. Remainder of the lungs are otherwise unremarkable without evidence of focal airspace opacities, nodules or masses. MEDIASTINUM: Cardiomegaly. No significant pericardial effusion. No evidence of mediastinal or hilar adenopathy. CORONARY ARTERY CALCIFICATION: Moderate to extensive coronary calcifications. PLEURA: There is no pleural effusion. No pleural mass or thickening. AXILLA: No lymphadenopathy. UPPER ABDOMEN: Postsurgical changes of cholecystectomy are seen. Vascular calcifications. OSSEOUS STRUCTURES: Multilevel mild degenerative changes in the spine. No acute or suspicious osseous lesions. CT/CT chest wo IV con IMPRESSION: Small airspace opacity in the right lower lobe is nonspecific and new compared to previous CT, most likely infectious or inflammatory in etiology. Recommend follow-up chest CT in 1-2 months. Mosaic appearance of the lung parenchyma can be seen in the setting of small airway or small vessel disease. Coronary calcifications. Fleischner guidelines were followed.
--- NOTE | ~2022-05-01 | CT_ITS ---
EXAMINATION: CT ABDOMEN AND PELVIS WITHOUT CONTRAST CLINICAL INFORMATION: Diffuse abdominal pain. COMPARISON: 05/27/2019 TECHNIQUE: Multidetector volumetric imaging was performed from the superior aspect of the liver through the pubic symphysis. Sagittal and coronal reformatted images were obtained on the technologist's workstation. This CT examination was performed using dose optimization techniques as appropriate, variously including the following: *Automated exposure control *Adjustment of mA and/or kV according to patient size (this includes techniques or standardized protocols for targeted exams where dose is matched to indication/reason for exam; i.e. extremities or head) *Use of iterative reconstruction technique DLP: 876 mGy-cm FINDINGS: LUNG BASES: Right lung base centrilobular nodules may reflect aspiration, atelectasis, or infection. LIVER, GALLBLADDER, AND BILIARY TREE: The liver is normal in size, shape, and attenuation. No focal hepatic lesion or biliary ductal dilatation is present. Status post cholecystectomy. PANCREAS: Unremarkable. SPLEEN: Unremarkable. ADRENAL GLANDS: Unremarkable. KIDNEYS AND URETERS: The kidneys are normal in size, shape, and attenuation. No hydronephrosis, hydroureter, or calculi seen. No perinephric stranding. BLADDER: Unremarkable. GASTROINTESTINAL TRACT: Small and large bowel are unremarkable. Appendix is not visualized. No inflammatory changes are seen in the right lower quadrant. ABDOMINAL WALL: No significant hernia is appreciated. LYMPH NODES: Normal. VASCULAR: Advanced aortic and mesenteric vasculature atherosclerotic disease, greater than expected for patient age. PELVIC VISCERA: Unremarkable. OSSEOUS STRUCTURES: Unremarkable. CT/CT abdomen pelvis wo IV con IMPRESSION: 1. No acute intra-abdominal abnormality. 2. Right lung base centrilobular nodules may reflect aspiration, atelectasis, or infection. 3. Advanced aortic and mesenteric vasculature atherosclerotic disease, greater than expected for patient age. Fleischner guidelines were followed.
[2022-05-01 15:33] VITALS: BP 135/48; PULSE 71; RESP 20; TEMP 36.7; O2SAT 98; BMI 37.2
--- NOTE | 2022-05-01 15:33 | ED_ITS ---
HPI - Female Genitourinary General Chief complaint: Skin/Abscess/Foreign Body <Kailey Joe NP - Last Filed: 05/01/22 15:41> Stated complaint: Vaginal Pain/ Cyst <Kailey Joe NP - Last Filed: 05/01/22 15:41> Time Seen by Provider: 05/01/22 18:52 <Kailey Joe NP - Last Filed: 05/01/22 15:41> Source: patient <Syeda Murillo NP - Last Filed: 05/02/22 00:33> Mode of arrival: ambulatory <CORY Nguyen Last Filed: 05/02/22 00:33> Limitations: language barrier <Syeda Murillo NP - Last Filed: 05/02/22 00:33> History of Present Illness HPI Narrative: 57-year-old female presents for evaluation for assist to her left labia. Patient states that she has presented to this facility 4 times for this in the past and has had surgical resection of labial cysts. She said the pain has increased over the past 4 days, reports a fever from this morning. She does have a productive cough with yellow sputum. She did present to dialysis yesterday, is due for dialysis tomorrow. <Syeda Murillo NP - Last Filed: 05/02/22 00:33> MD elicited complaint: other (Labial cyst) <Syeda Murillo NP - Last Filed: 05/02/22 00:33> Onset (ago): day(s) (4) <Syeda Murillo NP - Last Filed: 05/02/22 00:33> Location of symptoms: external genitalia <Syeda Murillo NP - Last Filed: 05/02/22 00:33> Severity: moderate <Syeda Murillo NP - Last Filed: 05/02/22 00:33> Severity scale (1-10): 7 <Syeda Murillo NP - Last Filed: 05/02/22 00:33> Quality of pain: aching <Syeda Murillo NP - Last Filed: 05/02/22 00:33> Consistency: constant <Syeda Murillo NP - Last Filed: 05/02/22 00:33> Vaginal discharge: none <Syeda Murillo NP - Last Filed: 05/02/22 00:33> Vaginal bleeding: none <Syeda Murillo NP - Last Filed: 05/02/22 00:33> Exacerbating factors: movement and palpation <Syeda Murillo NP - Last Filed: 05/02/22 00:33> Associated symptoms: abdominal pain and fever <Syeda Murillo NP - Last Filed: 05/02/22 00:33> Patient : No <Syeda Murillo NP - Last Filed: 05/02/22 00:33> Related Data Home medications: Home Medications Medication Instructions Recorded Confirmed gabapentin 100 mg capsule 200 mg PO BID neuropathic pain 02/12/21 10/20/21 hydralazine 50 mg tablet 1 tab PO TID@0900,1200,1800 blood 02/12/21 10/20/21 pressure levothyroxine 25 mcg tablet 1 tab PO QAM 02/12/21 11/14/21 melatonin 5 mg tablet 5 mg PO BEDTIME 02/12/21 10/20/21 atorvastatin 40 mg tablet 40 mg PO DAILY cholesterol 02/26/21 11/14/21 omeprazole 40 mg capsule,delayed 40 mg PO DAILY 02/26/21 10/20/21 release sevelamer carbonate 800 mg tablet 800 mg PO TIDAC 02/26/21 10/20/21 insulin lispro 100 unit/mL See Rx Instructions .Route .COMPLEX 06/27/21 10/20/21 subcutaneous pen (Humalog KwikPen (U-100) Insulin) aspirin 81 mg tablet,delayed 1 tab PO DAILY 10/12/21 11/14/21 release cholecalciferol (vitamin D3) 50 1 cap PO QAM 10/12/21 11/14/21 mcg (2,000 unit) capsule blood-glucose meter,continuous 02/13/22 (Dexcom G6 Clerical Coordinator misc) blood-glucose sensor (Dexcom G6 02/13/22 Sensor device) blood-glucose transmitter (Dexcom 02/13/22 G6 Transmitter device) Previous Rx's Medication Instructions Recorded blood-glucose meter (FreeStyle #1 ea 04/24/21 Lite Meter kit) blood sugar diagnostic (FreeStyle #100 ea 05/29/21 Lite Strips) lancets 28 gauge (FreeStyle #100 ea 05/29/21 Lancets) pen needle, diabetic 32 gauge x #150 ea 06/13/2105/28 (BD Ultra-Fine Micro Pen Needle) metoprolol tartrate 50 mg tablet 50 mg PO Q12H #60 tabs 06/28/21 amlodipine 10 mg tablet 10 mg PO QAM blood pressure 90 08/02/21 days #90 tabs apixaban 5 mg tablet (Eliquis) 5 mg PO BID 90 days #180 tabs 08/02/21 lisinopril 10 mg tablet 10 mg PO BEDTIME blood pressure 90 08/02/21 days #90 tabs insulin glargine U-300 conc 300 28 unit (0.0933 mL) subcut DAILY 09/12/21 unit/mL (3 mL) subcutaneous pen 30 days #6 mL (Toujeo Max U-300 SoloStar) sitagliptin phosphate 25 mg tablet 25 mg PO QAM #30 tabs 09/16/21 (Januvia) doxycycline hyclate 100 mg tablet 100 mg PO BID #28 tabs 10/15/21 oxycodone 5 mg tablet 5 mg PO Q8H PRN pain #9 tabs 10/15/21 <Kailey Joe NP - Last Filed: 05/01/22 15:41> Allergies/Adverse reactions: Allergies Allergy/AdvReac Type Severity Reaction Status Date / Time No Known Allergies Allergy Verified 03/25/22 13:24 [No Known Allergies*] <Kailey Joe NP - Last Filed: 05/01/22 15:41> Review of Systems Review of Systems: Constitutional: No Fever, No Chills ENT/Mouth: No Ear Pain, No Hoarseness, No sore throat Eyes: No Eye Pain, No Swelling, No Redness, No Foreign Body Cardiovascular: No Chest Pain, No SOB Respiratory: Positive Cough, No Dyspnea Gastrointestinal: No Nausea, No Vomiting, No Diarrhea, positive abdominal Pain Genitourinary: Positive labia abscess, No Dysuria, No Hematuria Musculoskeletal: No joint pain, No Myalgias, No Joint Swelling Skin: No Skin lacerations, No rash Neuro: No Weakness, No Numbness, No Paresthesias, No Loss of Consciousness, No Dizziness, No Headache Psych: No Anxiety/Panic, No Depression Heme/Lymph: no easy bruising, no Lymphadenopathy Endocrine: No Polyuria, No Polydipsia <Syeda Murillo NP - Last Filed: 05/02/22 00:33> Yes all other systems are reviewed and are negative <Syeda Murillo NP - Last Filed: 05/02/22 00:33> [facility] Past Medical History Attestation statement: The following information was validated with the patient. <Syeda Murillo NP - Last Filed: 05/02/22 00:33> Source: old records reviewed <Syeda Murillo NP - Last Filed: 05/02/22 00:33> Medical History: Medical History Asthma AV fistula CAD (coronary artery disease) CHF (congestive heart failure) Chronic cough Chronic low back pain without sciatica Depression Dialysis patient Dysphonia Dyspnea on exertion End stage renal disease on dialysis ESRD (end stage renal disease) ESRD needing dialysis GERD (gastroesophageal reflux disease) HLD (hyperlipidemia) HTN (hypertension) Kidney stones Normocytic anemia Obesity due to excess calories Osteoarthritis of both knees Renal failure (ARF), acute on chronic T2DM (type 2 diabetes mellitus) Thyroid disease Unstable gait Urinary frequency <Kailey Joe NP - Last Filed: 05/01/22 15:41> Surgical History: Surgical History History of kidney surgery Hx of bone graft Hx of cholecystectomy <Kailey Joe NP - Last Filed: 05/01/22 15:41> Family History Family History: Family History Father CVD (cardiovascular disease) Diabetes Mother Diabetes Sister Stomach cancer <Kailey Joe NP - Last Filed: 05/01/22 15:41> Social History Social History: Social History Household Members: Spouse and Family Housing: House Do you presently have visiting nurse or other home services: No Unable to assess alcohol history related to: Unknown Alcohol intake: never Patient Tobacco Use Status: Never used Tobacco Advance Directives: Yes Advance Directives on File: Yes Advance Directives Date on File: 02/15/21 service: No Current occupational status: disabled <Kailey Joe NP - Last Filed: 05/01/22 15:41> Physical Exam Vital Signs: Vital Signs: Last Vital Signs Temp 98.0 F 05/01/22 15:33 Pulse 71 05/01/22 15:33 Resp 20 05/01/22 15:33 BP 135/48 L 05/01/22 15:33 Pulse Ox 98 05/01/22 15:33 O2 Del Method 05/01/22 15:33 BMI result Body Mass Index 37.2 <Kailey Joe NP - Last Filed: 05/01/22 15:41> Vital Signs: Last Vital Signs Temp 98.0 F 05/01/22 15:33 Pulse 71 05/01/22 15:33 Resp 20 05/01/22 15:33 BP 135/48 L 05/01/22 15:33 Pulse Ox 98 05/01/22 15:33 O2 Del Method 05/01/22 15:33 BMI result Body Mass Index 37.2 <Syeda Murillo NP - Last Filed: 05/02/22 00:33> Appearance: Alert. Oriented X3. Moderate distress. Eyes: Pupils equal, round and reactive to light. EOMI. ENT: Pharynx normal. Neck: Normal inspection. Neck supple. CVS: Normal heart rate and rhythm. Pulses normal. Respiratory: No respiratory distress. Breath sounds normal. Abdomen: Soft and obese, diffusely tender. Genitourinary: Multiple indurated areas with cellulitis without fluctuance the left labia. Skin: Skin warm and dry. Normal skin color. Normal skin turgor. Extremities: No lower extremity edema. Gait well-balanced well coordinated. Neuro: No motor deficit. No sensory deficit. Cranial nerves 2-12 intact. <Syeda Murillo NP - Last Filed: 05/02/22 00:33> Course Course Course Narrative: This is a rapid medical exam. Deferred additional HPI, review systems, PE primary provider. 57-year-old female with a history of end-stage renal disease on dialysis (last yesterday), diabetes, high blood pressure, high cholesterol, AFib on Eliquis, recurrent vaginal/labial abscess here with complaints of 1 week of labial swelling and pain with concern for abscess. Unable to visualize in triage. Will give Tylenol <Kailey Joe NP - Last Filed: 05/01/22 15:41> This is a rapid medical exam. Deferred additional HPI, review systems, PE primary provider. 57-year-old female with a history of end-stage renal disease on dialysis (last yesterday), diabetes, high blood pressure, high cholesterol, AFib on Eliquis, recurrent vaginal/labial abscess here with complaints of 1 week of labial swelling and pain with concern for abscess. Unable to visualize in triage. Will give Tylenol 57-year-old female with past medical history of insulin-dependent diabetes, end- stage renal disease on dialysis last dialysis was yesterday, AFib on Eliquis, multiple vulva lower and labial abscesses that required surgical resection, AMARJIT, hyperlipidemia, hypertension presents for recurrent abscesses to the left labia. Patient also reports fever this morning, with a productive cough. Labia has 3 indurated areas with cellulitis without areas of fluctuance. I did discuss privacy with the patient and the patient's . Patient's was upset with my questioning, stated that he does not abuse . I stated that this is a standard practice to ask the patient if they want family members in during a sensitive procedure. agreed to have the at bedside. Attempt to I&D left labia, no drainage obtained from the I&D site. Packed with iodoform. CT scan of abdomen pelvis is pending. Will hold off on fluids at this time as patient is a dialysis patient. 21:00 labs elevated consistent with patient being on dialysis. BUN 44, creatinine 6.0 which is consistent with her prior values. Glucose is 447. White count is 11.4, H&H 9.2/27.0 which is better than prior values. CT scan of abdomen and pelvis indicates normal abdomen and pelvis with suggestion of possible pneumonia or infiltrates to the lower lobes of the lung. Order for CT scan of the chest at this time. I do not feel that this patient meets sepsis criteria as her values are consistent with prior. 23:10 CT scan indicates small airspace opacity in the right lower lobe nonspecific new from prior CTs, most likely infectious or inflammatory. Plan of care is to admit this patient, will discuss with hospitalist, patient does have multiple cor morbidities including insulin-dependent diabetes, and is a dialysis patient. 23:27 discussion with hospitalist, plan of care is to admit for labial abscess, and pneumonia. Treatment with vancomycin Zosyn. Lactic and cultures are pending. Again, I do not feel that this patient is septic. <Syeda Murillo NP - Last Filed: 05/02/22 00:33> Medications Administered Discontinued Medications Generic Name Dose Route Start Last Admin Trade Name Freq PRN Reason Stop Dose Admin Acetaminophen 650 mg 05/01/22 15:38 05/01/22 15:42 Acetaminophen 325 Mg Tablet PO 05/01/22 15:39 650 mg ONCE ONE Administration Lidocaine HCl 4 ml 05/01/22 18:55 05/01/22 19:04 Lidocaine Hcl 2% 2 Ml Vial INFILTRATI 05/01/22 18:56 4 ml ONCE ONE Administration <Kailey Joe NP - Last Filed: 05/01/22 15:41> Medications Administered Discontinued Medications Generic Name Dose Route Start Last Admin Trade Name Freq PRN Reason Stop Dose Admin Acetaminophen 650 mg 05/01/22 15:38 05/01/22 15:42 Acetaminophen 325 Mg Tablet PO 05/01/22 15:39 650 mg ONCE ONE Administration Lidocaine HCl 4 ml 05/01/22 18:55 05/01/22 19:04 Lidocaine Hcl 2% 2 Ml Vial INFILTRATI 05/01/22 18:56 4 ml ONCE ONE Administration <Syeda Murillo NP - Last Filed: 05/02/22 00:33> Medical Decision Making Medical Decision Making Differential Diagnoses: Differential diagnosis Differential Diagnosis: Labial abscess, cellulitis, appendicitis, diverticulitis, pneumonia, COVID, influenza <Syeda Murillo NP - Last Filed: 05/02/22 00:33> Consideration of admission/observation: Consideration of Admission/Observation (Probable admission) <Syeda Murillo NP - Last Filed: 05/02/22 00:33> Discussion of management with other physician/healthcare provider/other source (e.g., hospitalist, incident response consultant, behavioral health): Discussion w/other physician/healthcare provider (ED attending) Management of the patient was discussed with: Hospitalist <Syeda Murillo NP - Last Filed: 05/02/22 00:33> Lab Attestation: I reviewed the patient's lab results. <Syeda Murillo NP - Last Filed: 05/02/22 00:33> Discussion of test interpretation with radiology: Discussion of test interpretation with radiology (CT abdomen pelvis) EXAMINATION: CT ABDOMEN AND PELVIS WITHOUT CONTRAST? CLINICAL INFORMATION: Diffuse abdominal pain. ? COMPARISON: 05/27/2019? TECHNIQUE: Multidetector volumetric imaging was performed from the superior aspect of the liver through the pubic symphysis. Sagittal and coronal reformatted images were obtained on the technologist's workstation.? This CT examination was performed using dose optimization techniques as appropriate, variously including the following: *Automated exposure control *Adjustment of mA and/or kV according to patient size (this includes techniques or standardized protocols for targeted exams where dose is matched to indication/reason for exam; i.e. extremities or head) *Use of iterative reconstruction technique DLP: 876 mGy-cm FINDINGS: LUNG BASES: Right lung base centrilobular nodules may reflect aspiration, atelectasis, or infection.? LIVER, GALLBLADDER, AND BILIARY TREE: The liver is normal in size, shape, and attenuation. No focal hepatic lesion or biliary ductal dilatation is present. Status post cholecystectomy.? PANCREAS: Unremarkable.? SPLEEN: Unremarkable.? ADRENAL GLANDS: Unremarkable.? KIDNEYS AND URETERS: The kidneys are normal in size, shape, and attenuation. No hydronephrosis, hydroureter, or calculi seen. No perinephric stranding. ? BLADDER: Unremarkable.? GASTROINTESTINAL TRACT: Small and large bowel are unremarkable. Appendix is not visualized. No inflammatory changes are seen in the right lower quadrant. ABDOMINAL WALL: No significant hernia is appreciated.? LYMPH NODES: Normal. VASCULAR: Advanced aortic and mesenteric vasculature atherosclerotic disease, greater than expected for patient age. PELVIC VISCERA: Unremarkable.? OSSEOUS STRUCTURES: Unremarkable.? CT/CT abdomen pelvis wo IV con IMPRESSION: 1.? No acute intra-abdominal abnormality. 2.? Right lung base centrilobular nodules may reflect aspiration, atelectasis, or infection. 3.? Advanced aortic and mesenteric vasculature atherosclerotic disease, greater than expected for patient age. ? Fleischner guidelines were followed. <Syeda Murillo NP - Last Filed: 05/02/22 00:33> Chronic conditions affecting care (e.g., diabetes, HTN): Chronic conditions affecting care (e.g., diabetes, HTN) (End-stage renal disease, dialysis, obesity) Patient?s care impacted by: Diabetes and Hyperten jen <Syeda Murillo NP - Last Filed: 05/02/22 00:33> Discharge Plan Discharge Clinical Impression: Pneumonia, Cellulitis <Kailey Joe NP - Last Filed: 05/01/22 15:41> Patient Disposition: Admitted As Inpatient <Kailey Joe NP - Last Filed: 05/01/22 15:41>
[2022-05-01] MEDS: Acetaminophen 325 MG TABLET 650 MG PO (15:42)
[2022-05-01 20:47] LABS: MANUAL DIFF FLAG NO
[2022-05-01 20:49] LABS: Basophils Absolute Auto 0.1 X10*3/uL (0.0-0.2); Basophils Percent Auto 0.5 % (0-2); Eosinophils Absolute Auto 0.9 X10*3/uL (0.0-0.4); Eosinophils Percent Auto 7.8 % (0-4); Hemoglobin 9.2 g/dl (12.0-16.0); Imm Gran Abs Auto 0.13 X10*3/uL (0.00-0.03); Imm Gran Pct Auto 1.1 % (0.0-0.4); Lymphocytes Absolute Auto 1.9 X10*3/uL (1.2-4.9); Lymphocytes Percent Auto 16.6 % (20-40); Mean Corpuscular HGB Conc 34.1 g/dl (31.0-35.0); Mean Corpuscular Hemoglobin 31.1 pg (27.0-33.0); Mean Corpuscular Volume 91.2 fL (80.0-98.0); Mean Platelet Volume 11.5 fL (9.4-12.3); Monocytes Absolute Auto 0.8 X10*3/uL (0.1-1.2); Monocytes Percent Auto 7.3 % (2-11); Neutrophils Absolute Auto 7.6 x10*3/uL (2.0-8.3); Neutrophils Percent Auto 66.7 % (45-73); Platelet Count 219 X10*3/uL (160-400); Red Blood Count 2.96 X10*6/uL (4.20-5.50); Red Cell Distribution Width 13.5 % (11.0-16.0); White Blood Count 11.4 X10*3/uL (4.8-10.8)
[2022-05-01 21:22] LABS: Anion Gap 18 (12-20); Blood Urea Nitrogen 44 mg/dL (9-16); Calcium 9.4 mg/dL (8.4-10.2); Carbon Dioxide 26 mmol/L (22-29); Chloride 96 mmol/L (96-108); Creatinine Clr Calc Pharmacy 11.5; Estimated Glomerular Filt Rate 7; Glucose Random 447 mg/dL (60-115); Potassium 4.2 mmol/L (3.3-5.1); Sodium 136 mmol/L (135-145)
--- NOTE | 2022-05-02 00:53 | PC.NURSE ---
Pt. in room resting in bed. Multiple IV attempts have been made. Attempting an ultrasound IV. Pt. reported excess bleeding upon using the toilet. Moderage amount of bleeding noted in toilet.
--- NOTE | 2022-05-02 01:01 | PC.NURSE ---
This RN attempted to obtain IV access with US guidance, but was unsuccessful with two attempts. Primary RN and weigh and charge worker have already made multiple attempts with no success. Provider made aware. Provider will now attempt to gain IV access.
--- NOTE | 2022-05-02 01:09 | PM.IMHP ---
History of Present Illness Date of Service: 05/02/22 Chief Complaint: Labial swelling This is a 57-year-old female with pertinent history of atrial fibrillation on Eliquis, insulin-dependent diabetes mellitus, gastroesophageal reflux disease, essential hypertension, hypothyroidism, mixed hyperlipidemia presents to the emergency department for evaluation of labial swelling. Patient states she noticed swelling 3 days prior to presentation. It has been progressive and associated with pain. No purulent discharge. Patient has had about 5 I&D of labial cysts/abscesses in the past. Patient denies fever, chills, nausea, vomiting, chest discomfort, palpitations, shortness of breath, abdominal pain, changes in urinary bowel habits. Patient states she was diagnosed with pneumonia about 4-6 weeks ago and completed antibiotic course. Her symptoms of pneumonia have now resolved. Patient undergoes dialysis Thursday/Thursday/Thursday and her last dialysis session was 04/30. Review of Systems Constitutional: Constitutional: Reports no additional constitutional complaints Cardiovascular: Cardiovascular: Reports no additional cardiovascular complaints Respiratory: Respiratory: Reports no additional respiratory complaints Gastrointestinal: Gastrointestinal: Reports no additional gastrointestinal complaints Genitourinary: Genitourinary: Reports no additional female genitourinary complaints [facility] Medical History Asthma AV fistula CAD (coronary artery disease) CHF (congestive heart failure) Chronic cough Chronic low back pain without sciatica Depression Dialysis patient Dysphonia Dyspnea on exertion End stage renal disease on dialysis ESRD (end stage renal disease) ESRD needing dialysis GERD (gastroesophageal reflux disease) HLD (hyperlipidemia) HTN (hypertension) Kidney stones Normocytic anemia Obesity due to excess calories Osteoarthritis of both knees Renal failure (ARF), acute on chronic T2DM (type 2 diabetes mellitus) Thyroid disease Unstable gait Urinary frequency Family History Father CVD (cardiovascular disease) Diabetes Mother Diabetes Sister Stomach cancer Surgical History History of kidney surgery Hx of bone graft Hx of cholecystectomy Social History Household Members: Spouse and Family Housing: House Do you presently have visiting nurse or other home services: No Unable to assess alcohol history related to: Unknown Alcohol intake: never Patient Tobacco Use Status: Never used Tobacco Advance Directives: Yes Advance Directives on File: Yes Advance Directives Date on File: 02/15/21 Patient : No service: No Current occupational status: disabled Meds Allergies Allergy/AdvReac Type Severity Reaction Status Date / Time No Known Allergies Allergy Verified 03/25/22 13:24 [No Known Allergies*] Active Medications: Current Medications Acetaminophen (Acetaminophen 325 Mg Tablet) 650 mg PO Q6H PRN PRN Reason: Pain, Mild (Pain Scale 1-3) Vancomycin HCl (Vancomycin/Ns) 2,000 mg in 520 mls @ 260 mls/hr IV ONCE ONE Stop: 05/02/22 01:44 Piperacillin Sod/Tazobactam (Sod 4.5 gm/ Sodium Chloride) 100 mls @ 200 mls/hr IV Q12H [facility] Insulin Human Regular (Insulin Regular, Human 100 Unit/Ml 3 Ml Vial) 5 unit IVPUSH ONCE ONE Stop: 05/02/22 01:06 Melatonin (Melatonin 3 Mg Tablet) 6 mg PO BEDTIME PRN PRN Reason: Insomnia Ondansetron HCl (Ondansetron Hcl 4 Mg/2 Ml Vial) 4 mg IVPUSH Q8H PRN PRN Reason: Nausea and Vomiting Pharmacy Consult (Consult Rx Vancomycin Dosing) 1 each MISCELLANE DAILY PRN PRN Reason: Consult order Pharmacy Consult (Consult Rx Perform Med Rec) 1 each MISCELLANE ONCE STA Stop: 05/01/22 23:26 Pharmacy Consult (Consult Rx Perform Med Rec) 1 each MISCELLANE ONCE PRN PRN Reason: Consult order Pharmacy Consult (Consult Rx Vancomycin Dosing) 1 each MISCELLANE DAILY PRN PRN Reason: Consult order Sodium Chloride (0.9 % Sodium Chloride Flush 3 Ml Syringe) 3 ml IVFLUSH QSHIFT [facility] Home Medications Medication Instructions Recorded Confirmed Last Taken Type gabapentin 100 mg capsule 200 mg PO BID neuropathic pain 02/12/21 10/20/21 06/27/21 History hydralazine 50 mg tablet 1 tab PO TID@0900,1200,1800 blood 02/12/21 10/20/21 06/27/21 History pressure levothyroxine 25 mcg tablet 1 tab PO QAM 02/12/21 11/14/21 06/27/21 History melatonin 5 mg tablet 5 mg PO BEDTIME 02/12/21 10/20/21 06/26/21 History atorvastatin 40 mg tablet 40 mg PO DAILY cholesterol 02/26/21 11/14/21 06/27/21 History omeprazole 40 mg capsule,delayed 40 mg PO DAILY 02/26/21 10/20/21 06/27/21 History release sevelamer carbonate 800 mg tablet 800 mg PO TIDAC 02/26/21 10/20/21 06/27/21 History insulin lispro 100 unit/mL See Rx Instructions .Route .COMPLEX 06/27/21 10/20/21 Unknown History subcutaneous pen (Humalog KwikPen (U-100) Insulin) aspirin 81 mg tablet,delayed 1 tab PO DAILY 10/12/21 11/14/21 Unknown History release cholecalciferol (vitamin D3) 50 1 cap PO QAM 10/12/21 11/14/21 Unknown History mcg (2,000 unit) capsule blood-glucose meter,continuous 02/13/22 Unknown History (Dexcom G6 Cloth Pattern Maker misc) blood-glucose sensor (Dexcom G6 02/13/22 Unknown History Sensor device) blood-glucose transmitter (Dexcom 02/13/22 Unknown History G6 Transmitter device) Physical Exam Vital Signs and Narrative: Vital Signs: Last Vital Signs Temp 98.0 F 05/01/22 15:33 Pulse 71 05/01/22 15:33 Resp 20 05/01/22 15:33 BP 135/48 L 05/01/22 15:33 Pulse Ox 98 05/01/22 15:33 O2 Del Method 05/01/22 15:33 BMI result Body Mass Index 37.2 Middle-aged female lying in bed in no distress Neck supple, no JVD Regular rate and rhythm, S1-S2 heard Regular breath sounds bilaterally, no wheezing or crackles appreciated Abdomen soft nontender, no guarding, no rigidity Patient is awake, alert and oriented to self, place, time and person ; no focal motor deficit 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 Questionable fluctuance Psych: Normal mood No pedal edema Results Labs CBC and Chem 7: 05/01/22 20:42 05/01/22 20:42 Labs: Laboratory Results - last 24 hr 05/01/22 05/01/22 20:42 20:42 MCV 91.2 MCH 31.1 MCHC 34.1 RDW 13.5 Plt Count 219 MPV 11.5 Immature Gran % (Auto) 1.1 H Neut % (Auto) 66.7 Lymph % (Auto) 16.6 L Hardy % (Auto) 7.3 Eos % (Auto) 7.8 H Baso % (Auto) 0.5 Lymph # (Auto) 1.9 Hardy # (Auto) 0.8 Eos # (Auto) 0.9 H Baso # (Auto) 0.1 Abs Immat Gran (auto) 0.13 H Absolute Neuts (auto) 7.6 Absolute Nucleated RBC 0.000 Nucleated RBC % (auto) 0.0 Anion Gap 18 Estim Creat Clear Calc 11.5 Estimated GFR 7 Random Glucose 447 H* Calcium 9.4 Imaging Radiologist's Impressions: Impressions Abdomen/Pelvis CT 05/01/22 19:42 IMPRESSION: 1. No acute intra-abdominal abnormality. 2. Right lung base centrilobular nodules may reflect aspiration, atelectasis, or infection. 3. Advanced aortic and mesenteric vasculature atherosclerotic disease, greater than expected for patient age. Fleischner guidelines were followed. Chest CT 05/01/22 21:39 IMPRESSION: Small airspace opacity in the right lower lobe is nonspecific and new compared to previous CT, most likely infectious or inflammatory in etiology. Recommend follow-up chest CT in 1-2 months. Mosaic appearance of the lung parenchyma can be seen in the setting of small airway or small vessel disease. Coronary calcifications. Fleischner guidelines were followed. Assessment and Plan (1) Cellulitis: Status: Acute (2) Type 2 diabetes mellitus with hyperglycemia: Status: Acute (3) Paroxysmal atrial flutter: Status: Acute (4) ESRD (end stage renal disease): Status: Acute (5) HTN (hypertension): Qualifiers: Hypertension type: unspecified Qualified Code(s): I10 - Essential (primary) hypertension Status: Acute (6) HLD (hyperlipidemia): Qualifiers: Hyperlipidemia type: unspecified Qualified Code(s): E78.5 - Hyperlipidemia, unspecified Status: Acute Plan This is a 57-year-old female with pertinent history of atrial fibrillation on Eliquis, insulin-dependent diabetes mellitus, gastroesophageal reflux disease, essential hypertension, hypothyroidism, mixed hyperlipidemia presents to the emergency department for evaluation of labial swelling. #. Vulvar cellulitis with concern for abscess: Will admit patient and initiate empiric broad-spectrum IV antibiotics. Consulting general surgery for possible I and D. Blood cultures obtained in the ER #. Insulin-dependent diabetes mellitus with hyperglycemia: Initiate Accu-Cheks with sliding scale insulin. Administered basal insulin. #. ESRD on dialysis: Is due for dialysis on 05/02, consulted Nephrology #. Paroxysmal atrial fibrillation on Eliquis: Rate controlled in the ER, hold Eliquis until surgical evaluation #. Essential hypertension/mixed hyperlipidemia: Continue p.o. medications #. Gastroesophageal reflux disease: On Protonix #. Hypothyroidism: On Synthroid #. Chronic normocytic anemia: Hemoglobin above transfusion threshold Med rec pending DVT prophylaxis: Hold Eliquis until surgical evaluation Diabetic diet Full code Admit as inpatient and will require two night minimum hospital stay for IV antibiotics. Surgical evaluation pending Quality Stroke Does the patient have a stroke diagnosis?: No VTE Prior VTE?: No VTE Risk Level:: Medical - low VTE Device Contraindication: Treatment Not Indicated VTE Drug Contraindication: Treatment Not Indicated
[2022-05-02 01:17] LABS: Lactic Acid 1.1 mmol/L (0.5-2.0)
[2022-05-02] MEDS: Piperacillin Sodium/Tazobactam 3.375 GM in 0.9 % Sodium Chloride 50 ML IV (01:45)
[2022-05-02] MEDS: Morphine Sulfate 2 MG/ML CARTRIDGE IVPUSH (01:46)
[2022-05-02] MEDS: Insulin Glargine,Hum.rec.anlog 100 UNIT/ML 10 ML VIAL 20 UNIT SUBCUT (02:06)
[2022-05-02 02:13] LABS: Glucose, Whole Blood 399 mg/dL (60-115)
[2022-05-02] MEDS: Insulin Regular, Human 100 UNIT/ML 3 ML VIAL IVPUSH (02:16)
[2022-05-02 04:00] LABS: Glucose, Whole Blood 347 mg/dL (60-115)
[2022-05-02 04:08] VITALS: BP 169/71; PULSE 71; RESP 18; TEMP 36.7; O2SAT 98
[2022-05-02 06:35] LABS: Appearance Urine Cloudy; Color Urine Yellow; Glucose Urine UA >=1000 mg/dL (Negative); Leukocyte Esterase Urine Trace (Negative); Nitrite Urine Negative (Negative); PH 8.5 (5.0-9.0); Specific Gravity - Urine 1.015 (1.005-1.025); UMIC TRIGGER UACC YES; Urine Blood Trace (Negative); Urine Ketones Negative (Negative); Urine Protein 300 (3+) mg/dL (Neg-Trace)
[2022-05-02 06:48] LABS: Bacteria Urine 2+ (None Seen); Hyaline Casts Urine 0-2 /LPF (0-2); UACC Culture Trigger YES
[2022-05-02 06:59] LABS: MANUAL DIFF FLAG NO
[2022-05-02 07:03] LABS: Basophils Absolute Auto 0.1 X10*3/uL (0.0-0.2); Basophils Percent Auto 0.5 % (0-2); Eosinophils Absolute Auto 0.8 X10*3/uL (0.0-0.4); Eosinophils Percent Auto 7.7 % (0-4); Hematocrit 25.9 % (37.0-47.0); Hemoglobin 8.6 g/dl (12.0-16.0); Imm Gran Abs Auto 0.11 X10*3/uL (0.00-0.03); Imm Gran Pct Auto 1.1 % (0.0-0.4); Lymphocytes Absolute Auto 1.8 X10*3/uL (1.2-4.9); Lymphocytes Percent Auto 17.4 % (20-40); Mean Corpuscular HGB Conc 33.2 g/dl (31.0-35.0); Mean Corpuscular Hemoglobin 30.7 pg (27.0-33.0); Mean Corpuscular Volume 92.5 fL (80.0-98.0); Mean Platelet Volume 11.8 fL (9.4-12.3); Monocytes Absolute Auto 0.6 X10*3/uL (0.1-1.2); Neutrophils Absolute Auto 6.8 x10*3/uL (2.0-8.3); Neutrophils Percent Auto 67.3 % (45-73); Platelet Count 209 X10*3/uL (160-400); Red Cell Distribution Width 13.4 % (11.0-16.0)
[2022-05-02 07:25] LABS: Glucose, Whole Blood 299 mg/dL (60-115)
--- NOTE | 2022-05-02 07:42 | PHA.PROG ---
Admission Date/Time: May 02, 2022 00:39 Indication: SKIN AND SKIN STRUCTURE Weight in k.254 kg Adjusted body weight in Kg: [place] body weight in Kg: Obesity Dosing Indication % IBW: Serum Creatinine - Last 168 Hours 05/01/22 20:42 Creatinine 6.00 H* Estimated CrCl and GFR - Last 168 Hours 05/01/22 20:42 Estim Creat Clear Calc 11.5 Estimated GFR 7 Vancomycin Loading Dose: 2000 MG Current Vancomycin Dosing Regimen: DOSING BASED ON LEVEL Vancomycin Monitoring using AUC goal of 400 - 600 range with trough as surrogate marker: Date and Time for next Vancomycin Level to be drawn: PRIOR TO NEXT DIALYSIS DAY Pharmacist Comments on Vancomycin Plan: DIALYSIS IS MWF BUT PER GAGE JOAQUIN, NOT ON SCHEDULE TODAY Vancomycin dosing will take advantage of [employer] as a clinical decision support tool that uses Bayesian modeling to calculate individual patient's pharmacokinetic parameters and forecast the patient's drug concentration time course with the target goal AUC 24 range of 400 - 600 mg/L/hr.
[2022-05-02] MEDS: Insulin Lispro 100 UNIT/ML 3 ML VIAL SUBCUT ×2 (07:43→19:53)
--- NOTE | 2022-05-02 08:32 | P.CONGS_ITS ---
History of Present Illness Consult details Consult date: 05/02/22 <YAJAIRA Luna Last Filed: 05/02/22 08:56> Reason for consult: other (?labial abscess) <YAJAIRA Luna Last Filed: 05/02/22 08:56> Narrative: Ms. Chano Corado is a 57-year-old female with extensive PMH including atrial fibrillation on Eliquis, IDDM, hypertension, hypothyroidism, ESRD on dialysis who presents to the emergency department with complaints of labial swel ling and pain. Patient states she began to notice the swelling almost a week ago and pain began after. It has been progressive and due to worsening she sought evaluation. She reports she has had around 5 I&Ds of labial abcesses and groin in the past. Last was in September 2021 and multiple areas of the labia were drained in the operating room at that time. Patient denies fever, chills, discharge from the area. CT scan abd/pelvis was obtained which did not demonstrate any acute pathology or any labial fluid collection. An I&D was performed of the area in the ED without any drainage, packing was placed. She was admitted to the medical service for further treatment of the cellulitis, possible PNA. She was started on IV vanco and zosyn. Surgery was consulted for further management of the labial cellulitis. She feels a little better since admission but continues with pain. She reports occasional stabbing pains at the labial area at home in between these episodes but denies feeling mass or lump. <YAJAIRA Luna Last Filed: 05/02/22 08:56> Review of Systems Constitutional: Constitutional: Denies chills and Denies fever(s) <YAJAIRA Luna Last Filed: 05/02/22 08:56> ENT: Denies dizziness <YAJAIRA Luna Last Filed: 05/02/22 08:56> Cardiovascular: Cardiovascular: Denies chest pain and Denies dyspnea <YAJAIRA Luna Last Filed: 05/02/22 08:56> Respiratory: Respiratory: Denies dyspnea <YAJAIRA Luna Last Filed: 05/02/22 08:56> Gastrointestinal: Gastrointestinal: Denies abdominal pain, Denies nausea and Denies vomiting <Laurel Palomo PA-C Last Filed: 05/02/22 08:56> Genitourinary: Genitourinary: Reports as per HPI <Laurel Palomo PA-C Last Filed: 05/02/22 08:56> Integumentary/Breasts: Skin/Breast: Denies rash <Laurel Palomo PA-C Last Filed: 05/02/22 08:56> Neurologic: Denies dizziness <Laurel Palomo PA-C Last Filed: 05/02/22 08:56> [facility] Past Medical History Medical History: Medical History Asthma AV fistula CAD (coronary artery disease) CHF (congestive heart failure) Chronic cough Chronic low back pain without sciatica Depression Dialysis patient Dysphonia Dyspnea on exertion End stage renal disease on dialysis ESRD (end stage renal disease) ESRD needing dialysis GERD (gastroesophageal reflux disease) HLD (hyperlipidemia) HTN (hypertension) Kidney stones Normocytic anemia Obesity due to excess calories Osteoarthritis of both knees Renal failure (ARF), acute on chronic T2DM (type 2 diabetes mellitus) Thyroid disease Unstable gait Urinary frequency <Laurel Palomo PA-C Last Filed: 05/02/22 08:56> Family History Family History: Family History Father CVD (cardiovascular disease) Diabetes Mother Diabetes Sister Stomach cancer <Laurel Palomo PA-C Last Filed: 05/02/22 08:56> Surgical History Surgical History: Surgical History History of kidney surgery Hx of bone graft Hx of cholecystectomy <YAJAIRA Luna Last Filed: 05/02/22 08:56> Social History Social History: Social History Household Members: Spouse and Family Housing: House Do you presently have visiting nurse or other home services: No Unable to assess alcohol history related to: Unknown Alcohol intake: never Patient Tobacco Use Status: Never used Tobacco Advance Directives: Yes Advance Directives on File: Yes Advance Directives Date on File: 02/15/21 Patient : No service: No Current occupational status: disabled <Laurel Palomo PA-C - Last Filed: 05/02/22 08:56> Meds Allergies/Adverse reactions: Allergies Allergy/AdvReac Type Severity Reaction Status Date / Time No Known Allergies Allergy Verified 03/25/22 13:24 [No Known Allergies*] <Laurel Palomo PA-C - Last Filed: 05/02/22 08:56> Active Medications: Current Medications Acetaminophen (Acetaminophen 325 Mg Tablet) 650 mg PO Q6H PRN PRN Reason: Pain, Mild (Pain Scale 1-3) Dextrose (Dextrose 50 % 25 Gm/50 Ml Syringe) 25 gm IVPUSH Q15M PRN; Protocol PRN Reason: per Hypoglycemia Standing Ord. Glucose (Glucose Gel 15 Gm Gel..Gram.) 15 gm PO Q15M PRN; Protocol PRN Reason: per Hypoglycemia Standing Ord. Piperacillin Sod/Tazobactam (Sod 4.5 gm/ Sodium Chloride) 100 mls @ 200 mls/hr IV Q12H [facility] Vancomycin HCl 750 mg/ Sodium (Chloride) 265 mls @ 265 mls/hr IV MoWeFr@2000 [facility] Insulin Human Lispro (Insulin Lispro 100 Unit/Ml 3 Ml Vial) 0 unit [facility]BC[facility]I [facility]; Protocol Last Admin: 05/02/22 07:43 Dose: 6 unit Melatonin (Melatonin 3 Mg Tablet) 6 mg PO BEDTIME PRN PRN Reason: Insomnia Ondansetron HCl (Ondansetron Hcl 4 Mg/2 Ml Vial) 4 mg IVPUSH Q8H PRN PRN Reason: Nausea and Vomiting Pharmacy Consult (Consult Rx Vancomycin Dosing) 1 each MISCELLANE DAILY PRN PRN Reason: Consult order Pharmacy Consult (Consult Rx Perform Med Rec) 1 each MISCELLANE ONCE PRN PRN Reason: Consult order Pharmacy Consult (Consult Rx Perform Med Rec) 1 each MISCELLANE STAT STA Stop: 05/02/22 08:17 Sodium Chloride (0.9 % Sodium Chloride Flush 3 Ml Syringe) 3 ml IVFLUSH [facility] Last Admin: 05/02/22 07:52 Dose: Not Given <Laurel Palomo PA-C - Last Filed: 05/02/22 08:56> Home medications: Home Medications Medication Instructions Recorded Confirmed Last Taken Type gabapentin 100 mg capsule 200 mg PO BID neuropathic pain 02/12/21 05/02/22 06/27/21 History hydralazine 50 mg tablet 1 tab PO TID@0900,1200,1800 blood 02/12/21 05/02/22 06/27/21 History pressure levothyroxine 25 mcg tablet 1 tab PO QAM 02/12/21 05/02/22 06/27/21 History melatonin 5 mg tablet 5 mg PO BEDTIME 02/12/21 05/02/22 06/26/21 History atorvastatin 40 mg tablet 40 mg PO DAILY cholesterol 02/26/21 05/02/22 06/27/21 History sevelamer carbonate 800 mg tablet 800 mg PO TIDAC 02/26/21 05/02/22 06/27/21 History insulin lispro 100 unit/mL See Rx Instructions .Route .COMPLEX 06/27/21 05/02/22 Unknown History subcutaneous pen (Humalog KwikPen (U-100) Insulin) aspirin 81 mg tablet,delayed 1 tab PO DAILY 10/12/21 05/02/22 Unknown History release cholecalciferol (vitamin D3) 50 1 cap PO QAM 10/12/21 05/02/22 Unknown History mcg (2,000 unit) capsule blood-glucose meter,continuous 02/13/22 Unknown History (Dexcom G6 Bridge Repair Crew Person misc) blood-glucose sensor (Dexcom G6 02/13/22 Unknown History Sensor device) blood-glucose transmitter (Dexcom 02/13/22 Unknown History G6 Transmitter device) <Laurel Palomo PA-C - Last Filed: 05/02/22 08:56> Physical Exam Vital Signs: Vital Signs: Last Vital Signs Temp 98.1 F 05/02/22 04:08 Pulse 71 05/02/22 04:08 Resp 18 05/02/22 04:08 BP 169/71 H 05/02/22 04:08 Pulse Ox 98 05/02/22 04:08 O2 Del Method 05/02/22 04:08 BMI result Body Mass Index 37.2 <YAJAIRA Luna Last Filed: 05/02/22 08:56> Const: General: comfortable, no acute distress and alert <YAJAIRA Luna Last Filed: 05/02/22 08:56> Orientation/consciousness: patient oriented x3 <YAJAIRA Luna Last Filed: 05/02/22 08:56> Resp: Effort & Inspection: normal respiratory effort <YAJAIRA Luna Last Filed: 05/02/22 08:56> : Other: left labia majora with significant induration extending superiorly and inferiorly beyond site of I&D with packing in place, no palpable fluid collection or erythema noted, area very tender <YAJAIRA Luna Last Filed: 05/02/22 08:56> Neuro: General: patient oriented x3 <YAJAIRA Luna Last Filed: 05/02/22 08:56> Extrem: Other: AV fistula left upper arm <YAJAIRA Luna Last Filed: 05/02/22 08:56> Results Labs Result diagrams: : 05/02/22 06:11 05/02/22 06:11 <YAJAIRA Luna Last Filed: 05/02/22 08:56> Labs: Abnormal lab results 05/01/22 05/01/22 05/02/22 Range/Units 20:42 20:42 01:59 WBC 11.4 H (4.8-10.8) X10*3/uL RBC 2.96 L (4.20-5.50) X10*6/uL Hgb 9.2 L (12.0-16.0) g/dl Hct 27.0 L (37.0-47.0) % Immature Gran % (Auto) 1.1 H (0.0-0.4) % Lymph % (Auto) 16.6 L (20-40) % Eos % (Auto) 7.8 H (0-4) % Eos # (Auto) 0.9 H (0.0-0.4) X10*3/uL Abs Immat Gran (auto) 0.13 H (0.00-0.03) X10*3/uL BUN 44 H (9-16) mg/dL Creatinine 6.00 H* (0.5-1.4) mg/dL POC Glucose 399 H* (60-115) mg/dL Random Glucose 447 H* (60-115) mg/dL Urine Protein (Neg-Trace) mg/dL Urine Glucose (UA) (Negative) mg/dL Urine Blood (Negative) Ur Leukocyte Esterase (Negative) Urine RBC (0-2) /HPF Urine WBC (0-5) /HPF 05/02/22 05/02/22 05/02/22 Range/Units 03:55 06:11 06:24 WBC (4.8-10.8) X10*3/uL RBC 2.80 L (4.20-5.50) X10*6/uL Hgb 8.6 L (12.0-16.0) g/dl Hct 25.9 L (37.0-47.0) % Immature Gran % (Auto) 1.1 H (0.0-0.4) % Lymph % (Auto) 17.4 L (20-40) % Eos % (Auto) 7.7 H (0-4) % Eos # (Auto) 0.8 H (0.0-0.4) X10*3/uL Abs Immat Gran (auto) 0.11 H (0.00-0.03) X10*3/uL BUN (9-16) mg/dL Creatinine (0.5-1.4) mg/dL POC Glucose 347 H (60-115) mg/dL Random Glucose (60-115) mg/dL Urine Protein 300 (3+) H (Neg-Trace) mg/dL Urine Glucose (UA) >=1000 H (Negative) mg/dL Urine Blood Trace H (Negative) Ur Leukocyte Esterase Trace H (Negative) Urine RBC 6-10 H (0-2) /HPF Urine WBC 11-20 H (0-5) /HPF 05/02/22 Range/Units 07:22 WBC (4.8-10.8) X10*3/uL RBC (4.20-5.50) X10*6/uL Hgb (12.0-16.0) g/dl Hct (37.0-47.0) % Immature Gran % (Auto) (0.0-0.4) % Lymph % (Auto) (20-40) % Eos % (Auto) (0-4) % Eos # (Auto) (0.0-0.4) X10*3/uL Abs Immat Gran (auto) (0.00-0.03) X10*3/uL BUN (9-16) mg/dL Creatinine (0.5-1.4) mg/dL POC Glucose 299 H (60-115) mg/dL Random Glucose (60-115) mg/dL Urine Protein (Neg-Trace) mg/dL Urine Glucose (UA) (Negative) mg/dL Urine Blood (Negative) Ur Leukocyte Esterase (Negative) Urine RBC (0-2) /HPF Urine WBC (0-5) /HPF Short CBC 05/01/22 05/02/22 Range/Units 20:42 06:11 WBC 11.4 H 10.0 (4.8-10.8) X10*3/uL Hgb 9.2 L 8.6 L (12.0-16.0) g/dl Hct 27.0 L 25.9 L (37.0-47.0) % Plt Count 219 209 (160-400) X10*3/uL BMP 05/01/22 20:42 Sodium 136 Potassium 4.2 Chloride 96 Carbon Dioxide 26 BUN 44 H Creatinine 6.00 H* Calcium 9.4 Urine 05/02/22 Range/Units 06:24 Urine Color Yellow Urine Appearance Cloudy Urine pH 8.5 (5.0-9.0) Ur Specific [place] 1.015 (1.005-1.025) Urine Protein 300 (3+) H (Neg-Trace) mg/dL Urine Glucose (UA) >=1000 H (Negative) mg/dL All other labs normal. <Laurel Palomo PA-C - Last Filed: 05/02/22 08:56> Imaging Abdomen CT scan report/results: report reviewed and image reviewed <Laurel Palomo PA-C - Last Filed: 05/02/22 08:56> Assessment and Plan (1) Cellulitis: Status: Acute <YAJAIRA Luna Last Filed: 05/02/22 08:56> Ms. Chano Corado is a 57-year-old female with extensive PMH including atrial fibrillation on Eliquis, IDDM, hypertension, hypothyroidism, ESRD on dialysis who presented to the emergency department with complaints of labial swelling and pain. She underwent I&D of the left labial area in the ED without drainage of any fluid. She does have significant induration without a palpable fluid collection of the left labia which is more consistent with phlegmon. Recommend continuing abx for treatment of the cellulitis. No current indication for further drainage, will continue to follow. Will likely remove packing tomorrow. Can apply warm compresses to area to help with induration. <Laurel Palomo PA-C - Last Filed: 05/02/22 08:56> Ms. Chano Corado is a 57-year-old female with extensive PMH including atrial fibrillation on Eliquis, IDDM, hypertension, hypothyroidism, ESRD on dialysis who presented to the emergency department with complaints of labial swelling and pain. She underwent I&D of the left labial area in the ED without drainage of any fluid. She does have significant induration without a palpable fluid collection of the left labia which is more consistent with phlegmon. Recommend continuing abx for treatment of the cellulitis. No current indication for further drainage, will continue to follow. Will likely remove packing abdullahi rrow. Can apply warm compresses to area to help with induration. Patient independently evaluated and wounds examined. Area of marked inflammation noted in the labia especially on the left side but no definite fluctuance at this time. Incision and drainage site is open and draining bloody fluid with packing intact. No further surgical intervention is required at this time. Agree with the above assessment and plan including continue antibiotics. Once the inflammation subsides she may require an excision if they persistent cyst is palpable. Patient expressed understanding and agrees with the plan. <Fede Mackay MD - Last Filed: 05/02/22 14:04> Procedures Date of Service Date of Service: 05/02/22 <Laurel Palomo PA-C - Last Filed: 05/02/22 08:56>
--- NOTE | 2022-05-02 08:52 | PHA.MEDREC ---
Pharmacy Consult ? Medication Reconciliation Pharmacy has completed the medication reconciliation. Patient is med box patient at [facility]
[2022-05-02 09:02] LABS: Anion Gap 17 (12-20); Blood Urea Nitrogen 48 mg/dL (9-16); Calcium 9.1 mg/dL (8.4-10.2); Carbon Dioxide 26 mmol/L (22-29); Chloride 98 mmol/L (96-108); Creatinine Clr Calc Pharmacy 10.9; Estimated Glomerular Filt Rate 7; Glucose Random 341 mg/dL (60-115); Potassium 4.1 mmol/L (3.3-5.1); Sodium 137 mmol/L (135-145)
[2022-05-02 09:11] VITALS: BP 139/58; PULSE 69; RESP 18; TEMP 36.6; O2SAT 97
--- NOTE | 2022-05-02 10:25 | MHC.CM.PN ---
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
--- NOTE | 2022-05-02 15:41 | HO.PM.IMPN ---
Subjective Subjective Date of Service: 05/02/22 Interval History: swelling L labia, no drainage no fever/chills Review of Systems Review of Systems: Yes all other systems are reviewed and are negative Physical Exam Vital Signs: Vital Signs: Last Vital Signs Temp 97.9 F 05/02/22 09:11 Pulse 69 05/02/22 09:11 Resp 18 05/02/22 09:11 BP 139/58 L 05/02/22 09:11 Pulse Ox 97 05/02/22 09:11 O2 Del Method 05/02/22 09:11 BMI result Body Mass Index 37.2 Gen: in no acute distress HEENT: sclera anicteric, moist mucus membranes Neck: supple Lungs: clear to auscultation bilaterally Heart: regular rate and rhythm, no murmurs Abd: soft, non-tender, non-distended Ext: no edema Skin: warm/well-perfused; per surgery, left labia majora with induration around site of I+D with packing in place, no fluid collection or erythema Neuro: alert and oriented x3, no focal findings Psych: appropriate affect Objective Data Active Medications Acetaminophen (Acetaminophen 325 Mg Tablet) 650 mg PO Q6H PRN PRN Reason: Pain, Mild (Pain Scale 1-3) Amlodipine Besylate (Amlodipine Besylate 10 Mg Tablet) 10 mg PO QAM [facility]; Protocol Atorvastatin Calcium (Atorvastatin Calcium 40 Mg Tablet) 40 mg PO DAILY [facility] Dextrose (Dextrose 50 % 25 Gm/50 Ml Syringe) 25 gm IVPUSH Q15M PRN; Protocol PRN Reason: per Hypoglycemia Standing Ord. Gabapentin (Gabapentin 100 Mg Capsule) 200 mg PO BID [facility] Glucose (Glucose Gel 15 Gm Gel..Gram.) 15 gm PO Q15M PRN; Protocol PRN Reason: per Hypoglycemia Standing Ord. Hydralazine HCl (Hydralazine Hcl 50 Mg Tablet) 50 mg PO TID@0900,1200,1800 [facility]; Protocol Piperacillin Sod/Tazobactam (Sod 4.5 gm/ Sodium Chloride) 100 mls @ 200 mls/hr IV Q12H [facility] Last Admin: 05/02/22 13:21 Dose: Not Given Documented By: SHANA Non-Admin Reason: Off unit: Dialysis Vancomycin HCl 750 mg/ Sodium (Chloride) 265 mls @ 265 mls/hr IV [id number] [facility] Insulin Human Lispro (Insulin Lispro 100 Unit/Ml 3 Ml Vial) 0 unit SUBCUT QIDACHS [facility]; Protocol Last Admin: 05/02/22 13:22 Dose: Not Given Documented By: SHANA Non-Admin Reason: Off unit: Dialysis Levothyroxine Sodium (Levothyroxine Sodium 25 Mcg Tablet) 25 mcg PO QAM [facility] Lisinopril (Lisinopril 10 Mg Tablet) 10 mg PO BEDTIME [facility]; Protocol Melatonin (Melatonin 3 Mg Tablet) 6 mg PO BEDTIME PRN PRN Reason: Insomnia Metoprolol Tartrate (Metoprolol Tartrate 50 Mg Tablet) 50 mg PO Q12H [facility]; Protocol Non-Formulary Medication (Insulin Glargine U-300 Conc [Toujeo Max U-300 Solostar]) 28 unit SUBCUT DAILY [facility] Non-Formulary Medication (Melatonin) 5 mg PO BEDTIME [facility] Ondansetron HCl (Ondansetron Hcl 4 Mg/2 Ml Vial) 4 mg IVPUSH Q8H PRN PRN Reason: Nausea and Vomiting Pharmacy Consult (Consult Rx Vancomycin Dosing) 1 each MISCELLANE DAILY PRN PRN Reason: Consult order Pharmacy Consult (Consult Rx Perform Med Rec) 1 each MISCELLANE ONCE PRN PRN Reason: Consult order Sevelamer Carbonate (Sevelamer Carbonate Tablet 800 Mg Tablet) 800 mg PO TIDAC [facility] Sodium Chloride (0.9 % Sodium Chloride Flush 3 Ml Syringe) 3 ml IVFLUSH QSHIFT [facility] Last Admin: 05/02/22 07:52 Dose: Not Given Documented By: SHANA Non-Admin Reason: No Access Vitamin D (Cholecalciferol (Vitamin D3) 25 Mcg Tablet) 50 mcg PO QAM [facility] Labs CBC & Chem 7: 05/02/22 06:11 05/02/22 06:11 Labs: Laboratory Results - last 24 hr 05/01/22 05/01/22 05/02/22 20:42 20:42 00:58 MCV 91.2 MCH 31.1 MCHC 34.1 RDW 13.5 Plt Count 219 MPV 11.5 Immature Gran % (Auto) 1.1 H Neut % (Auto) 66.7 Lymph % (Auto) 16.6 L Walker % (Auto) 7.3 Eos % (Auto) 7.8 H Baso % (Auto) 0.5 Lymph # (Auto) 1.9 Walker # (Auto) 0.8 Eos # (Auto) 0.9 H Baso # (Auto) 0.1 Abs Immat Gran (auto) 0.13 H Absolute Neuts (auto) 7.6 Absolute Nucleated RBC 0.000 Nucleated RBC % (auto) 0.0 Anion Gap 18 Estim Creat Clear Calc 11.5 Estimated GFR 7 POC Glucose Random Glucose 447 H* Lactic Acid 1.1 Calcium 9.4 Urine Color Urine Appearance Urine pH Ur Specific [place] Urine Protein Urine Glucose (UA) Urine Ketones Urine Blood Urine Nitrite Ur Leukocyte Esterase Urine RBC Urine WBC Ur Squamous Epith Cells Urine Bacteria Hyaline Casts Urine Yeast 05/02/22 05/02/22 05/02/22 01:59 03:55 06:11 MCV 92.5 MCH 30.7 MCHC 33.2 RDW 13.4 Plt Count 209 MPV 11.8 Immature Gran % (Auto) 1.1 H Neut % (Auto) 67.3 Lymph % (Auto) 17.4 L Walker % (Auto) 6.0 Eos % (Auto) 7.7 H Baso % (Auto) 0.5 Lymph # (Auto) 1.8 Walker # (Auto) 0.6 Eos # (Auto) 0.8 H Baso # (Auto) 0.1 Abs Immat Gran (auto) 0.11 H Absolute Neuts (auto) 6.8 Absolute Nucleated RBC 0.000 Nucleated RBC % (auto) 0.0 Anion Gap Estim Creat Clear Calc Estimated GFR POC Glucose 399 H* 347 H Random Glucose Lactic Acid Calcium Urine Color Urine Appearance Urine pH Ur Specific [place] Urine Protein Urine Glucose (UA) Urine Ketones Urine Blood Urine Nitrite Ur Leukocyte Esterase Urine RBC Urine WBC Ur Squamous Epith Cells Urine Bacteria Hyaline Casts Urine Yeast 05/02/22 05/02/22 05/02/22 06:11 06:24 07:22 MCV MCH MCHC RDW Plt Count MPV Immature Gran % (Auto) Neut % (Auto) Lymph % (Auto) Walker % (Auto) Eos % (Auto) Baso % (Auto) Lymph # (Auto) Walker # (Auto) Eos # (Auto) Baso # (Auto) Abs Immat Gran (auto) Absolute Neuts (auto) Absolute Nucleated RBC Nucleated RBC % (auto) Anion Gap 17 Estim Creat Clear Calc 10.9 Estimated GFR 7 POC Glucose 299 H Random Glucose 341 H Lactic Acid Calcium 9.1 Urine Color Yellow Urine Appearance Cloudy Urine pH 8.5 Ur Specific [place] 1.015 Urine Protein 300 (3+) H Urine Glucose (UA) >=1000 H Urine Ketones Negative Urine Blood Trace H Urine Nitrite Negative Ur Leukocyte Esterase Trace H Urine RBC 6-10 H Urine WBC 11-20 H Ur Squamous Epith Cells 11-20 Urine Bacteria 2+ Hyaline Casts 0-2 Urine Yeast Present Assessment and Plan (1) Cellulitis: Status: Acute Plan d#2 57yo with AF on apixaban, DM2, GERD, HTN, hypothyroidism, HLD, ERSD on HD, recent PNA admitted for 3d of labial swelling; has hx of recurrent labial cysts/abscess underwent I+D in ER with no drainage; wound packed # vulvar cellulitis with phlegmon [no abscess] - Surgery consulted. continue vanc + pip/abigail d#2 # DM2 with hyperglycemia - basal/bolus insulin # ESRD on HD - Nephrology consult for HD MWF - sevelamer # CAD - resume aspirin - metoprolol # paroxysmal AF - resume apixaban - continue metoprolol # HTN - amlodipine, lisinopril, metoprolol, hydralazine # GERD - PPI # hypothyroidism - LT4 # VTE ppx: apixaban In my clinical judgment, the patient requires continued inpatient hospitalization for the following reasons: IV ABX Time Spent With Patient Time: Total time managing care of this patient today ____ minutes. Quality Stroke Does the patient have a stroke diagnosis?: No VTE Prior VTE?: No VTE Risk Level:: Medical - low VTE Device Contraindication: Treatment Not Indicated VTE Drug Contraindication: Treatment Not Indicated
--- NOTE | 2022-05-02 17:26 | PM.CNNEP ---
History of Present Illness Reason for Consult Consult date: 05/02/22 Reason for consult: Management of ESRD, dialysis care Chief Complaint Chief complaint: Labial swelling History of Present Illness Narrative: Sarah is well known to out practice. She has obesity and type II DM and ESRD maintained on HD at [facility]. She presented with vulvar pain and swelling, labial swelling and may have cellulitis in the area. She is being treated with antibiotics and hopefully, INSURANCE ASSISTANT will be able to further evaluate her. I am seeing her on dialysis now. She is lying flat comfortably but does have pain in the vulvar region. She denies fever or chills Review of Systems Review of Systems Constitutional: No Fever, No Chills ENT/Mouth: No Ear Pain, No Hoarseness, No sore throat Eyes: No Eye Pain, No Swelling, No Redness, No Foreign Body Cardiovascular: No Chest Pain, No SOB Respiratory: Positive Cough, No Dyspnea Gastrointestinal: No Nausea, No Vomiting, No Diarrhea, positive abdominal Pain Genitourinary: Positive labia abscess, No Dysuria, No Hematuria Musculoskeletal: No joint pain, No Myalgias, No Joint Swelling Skin: No Skin lacerations, No rash Neuro: No Weakness, No Numbness, No Paresthesias, No Loss of Consciousness, No Dizziness, No Headache Psych: No Anxiety/Panic, No Depression Heme/Lymph: no easy bruising, no Lymphadenopathy Endocrine: No Polyuria, No Polydipsia Yes all other systems are reviewed and are negative Constitutional: Reports no additional constitutional complaints, Denies chills and Denies fever(s) Denies dizziness Cardiovascular: Reports no additional cardiovascular complaints, Denies chest pain and Denies dyspnea Respiratory: Reports no additional respiratory complaints and Denies dyspnea Gastrointestinal: Reports no additional gastrointestinal complaints, Denies abdominal pain, Denies nausea and Denies vomiting Skin/Breast: Denies rash Denies dizziness [facility] Past Medical History Medical History Asthma AV fistula CAD (coronary artery disease) CHF (congestive heart failure) Chronic cough Chronic low back pain without sciatica Depression Dialysis patient Dysphonia Dyspnea on exertion End stage renal disease on dialysis ESRD (end stage renal disease) ESRD needing dialysis GERD (gastroesophageal reflux disease) HLD (hyperlipidemia) HTN (hypertension) Kidney stones Normocytic anemia Obesity due to excess calories Osteoarthritis of both knees Renal failure (ARF), acute on chronic T2DM (type 2 diabetes mellitus) Thyroid disease Unstable gait Urinary frequency Family History Family History Father CVD (cardiovascular disease) Diabetes Mother Diabetes Sister Stomach cancer Surgical History Surgical History History of kidney surgery Hx of bone graft Hx of cholecystectomy Social History Social History Household Members: Spouse and Family Housing: House Do you presently have visiting nurse or other home services: No Unable to assess alcohol history related to: Unknown Alcohol intake: never Patient Tobacco Use Status: Never used Tobacco Advance Directives: Yes Advance Directives on File: Yes Advance Directives Date on File: 02/15/21 Patient : No service: No Current occupational status: disabled Meds Allergies Allergy/AdvReac Type Severity Reaction Status Date / Time No Known Allergies Allergy Verified 03/25/22 13:24 [No Known Allergies*] Active Medications: Current Medications Acetaminophen (Acetaminophen 325 Mg Tablet) 650 mg PO Q6H PRN PRN Reason: Pain, Mild (Pain Scale 1-3) Amlodipine Besylate (Amlodipine Besylate 10 Mg Tablet) 10 mg PO DAILY [facility]; Protocol Apixaban (Apixaban 5 Mg Tablet) 5 mg PO BID [facility] Aspirin (Aspirin Enteric Coated 81 Mg Tablet.Dr) 81 mg PO DAILY [facility] Atorvastatin Calcium (Atorvastatin Calcium 40 Mg Tablet) 40 mg PO DAILY [facility] Dextrose (Dextrose 50 % 25 Gm/50 Ml Syringe) 25 gm IVPUSH Q15M PRN; Protocol PRN Reason: per Hypoglycemia Standing Ord. Gabapentin (Gabapentin 100 Mg Capsule) 200 mg PO BID [facility] Glucose (Glucose Gel 15 Gm Gel..Gram.) 15 gm PO Q15M PRN; Protocol PRN Reason: per Hypoglycemia Standing Ord. Hydralazine HCl (Hydralazine Hcl 50 Mg Tablet) 50 mg PO TID@0900,1200,1800 [facility]; Protocol Piperacillin Sod/Tazobactam (Sod 4.5 gm/ Sodium Chloride) 100 mls @ 200 mls/hr IV Q12H [facility] Last Admin: 05/02/22 13:21 Dose: Not Given Vancomycin HCl 750 mg/ Sodium (Chloride) 265 mls @ 265 mls/hr IV [id number]@2000 [facility] Insulin Glargine (Insulin Glargine,Hum.Rec.Anlog 100 Unit/Ml 10 Ml Vial) 23 unit SUBCUT DAILY [facility] Insulin Human Lispro (Insulin Lispro 100 Unit/Ml 3 Ml Vial) 0 unit SUBCUT QIDACHS [facility]; Protocol Last Admin: 05/02/22 13:22 Dose: Not Given Levothyroxine Sodium (Levothyroxine Sodium 25 Mcg Tablet) 25 mcg PO DAILY@0600 [facility] Lisinopril (Lisinopril 10 Mg Tablet) 10 mg PO BEDTIME [facility]; Protocol Melatonin (Melatonin 3 Mg Tablet) 6 mg PO BEDTIME PRN PRN Reason: Insomnia Metoprolol Tartrate (Metoprolol Tartrate 50 Mg Tablet) 50 mg PO BID [facility]; Protocol Ondansetron HCl (Ondansetron Hcl 4 Mg/2 Ml Vial) 4 mg IVPUSH Q8H PRN PRN Reason: Nausea and Vomiting Pharmacy Consult (Consult Rx Vancomycin Dosing) 1 each MISCELLANE DAILY PRN PRN Reason: Consult order Pharmacy Consult (Consult Rx Perform Med Rec) 1 each MISCELLANE ONCE PRN PRN Reason: Consult order Sevelamer Carbonate (Sevelamer Carbonate Tablet 800 Mg Tablet) 800 mg PO TIDAC [facility] Sodium Chloride (0.9 % Sodium Chloride Flush 3 Ml Syringe) 3 ml IVFLUSH QSHIFT [facility] Last Admin: 05/02/22 07:52 Dose: Not Given Vitamin D (Cholecalciferol (Vitamin D3) 25 Mcg Tablet) 50 mcg PO DAILY [facility] Home Medications Medication Instructions Recorded Confirmed Last Taken Type gabapentin 100 mg capsule 200 mg PO BID neuropathic pain 02/12/21 05/02/22 06/27/21 History hydralazine 50 mg tablet 1 tab PO TID@0900,1200,1800 blood 02/12/21 05/02/22 06/27/21 History pressure levothyroxine 25 mcg tablet 1 tab PO QAM 02/12/21 05/02/22 06/27/21 History melatonin 5 mg tablet 5 mg PO BEDTIME 02/12/21 05/02/22 06/26/21 History atorvastatin 40 mg tablet 40 mg PO DAILY cholesterol 02/26/21 05/02/22 06/27/21 History sevelamer carbonate 800 mg tablet 800 mg PO TIDAC 10/05/21 12/09/22 02/03/22 History insulin lispro 100 unit/mL See Rx Instructions .Route .COMPLEX 06/27/21 05/02/22 Unknown History subcutaneous pen (Humalog KwikPen (U-100) Insulin) aspirin 81 mg tablet,delayed 1 tab PO DAILY 10/12/21 05/02/22 Unknown History release cholecalciferol (vitamin D3) 50 1 cap PO QAM 10/12/21 05/02/22 Unknown History mcg (2,000 unit) capsule blood-glucose meter,continuous 02/13/22 Unknown History (Dexcom G6 Board Member misc) blood-glucose sensor (Dexcom G6 02/13/22 Unknown History Sensor device) blood-glucose transmitter (Dexcom 02/13/22 Unknown History G6 Transmitter device) Physical Exam Vital Signs: Last Vital Signs Temp 97.9 F 05/02/22 09:11 Pulse 69 05/02/22 09:11 Resp 18 05/02/22 09:11 BP 139/58 L 05/02/22 09:11 Pulse Ox 97 05/02/22 09:11 O2 Del Method 05/02/22 09:11 BMI result Body Mass Index 37.2 Const General: comfortable, no acute distress and alert Orientation/consciousness: patient oriented x3 Resp Effort & Inspection: normal respiratory effort Other: left labia majora with significant induration extending superiorly and inferiorly beyond site of I&D with packing in place, no palpable fluid collection or erythema noted, area very tender Neuro General: patient oriented x3 Extrem Other: AV fistula left upper arm Results Lab Results Result Diagrams: 05/02/22 06:11 05/02/22 06:11 Lab results: Chemistry 05/01/22 05/02/22 20:42 06:11 Sodium 136 137 Potassium 4.2 4.1 Carbon Dioxide 26 26 BUN 44 H 48 H Creatinine 6.00 H* 6.29 H* Calcium 9.4 9.1 Hematology 05/01/22 05/02/22 20:42 06:11 WBC 11.4 H 10.0 Hgb 9.2 L 8.6 L Plt Count 219 209 Urinalysis 05/02/22 06:24 Urine Color Yellow Urine Appearance Cloudy Urine pH 8.5 Ur Specific [place] 1.015 Urine Protein 300 (3+) H Urine Glucose (UA) >=1000 H Urine Ketones Negative Urine Blood Trace H Urine Nitrite Negative Ur Leukocyte Esterase Trace H Urine RBC 6-10 H Urine WBC 11-20 H Ur Squamous Epith Cells 11-20 Hyaline Casts 0-2 Assessment and Plan (1) 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: Status: Acute (2) AMARJIT (obstructive sleep apnea): Status: Acute (3) ESRD (end stage renal disease): Status: Acute (4) Vulvar abscess: Status: Acute Plan Pt has ESRD and is undertaking HD today Will keep her on her MWF schedule as long as she is admitted On vancomycin BP is controlled INSURANCE ASSISTANT eval as this may be difficult to get done in a timely manner as an outpt Time Spent With Patient Time: Total time managing care of this patient today ____ minutes. Procedures Date of Service Date of Service: 05/02/22
--- NOTE | 2022-05-02 17:28 | PC.NURSE ---
pt returned from dialysis, reported to have had 2.8L removed and be stable
[2022-05-02 17:45] VITALS: BP 122/56; PULSE 70; TEMP 36.7; O2SAT 95
[2022-05-02 17:45] LABS: Glucose, Whole Blood 223 mg/dL (60-115)
[2022-05-02 19:41] LABS: COVID-19 Test Negative (Negative); IDNOW Serial# BCCEAD1C
[2022-05-02 19:49] VITALS: BP 139/64; PULSE 78; RESP 19; TEMP 37.5; O2SAT 95
[2022-05-02 19:49] LABS: Vancomycin Random 18.2 mcg/mL (15-20)
[2022-05-02] MEDS: Acetaminophen 325 MG TABLET 650 MG PO (19:53)
--- NOTE | 2022-05-02 19:53 | HE.PHANOTE ---
VANCO DOSING ADJSUTMENT BASED OF TROUGH POST DIALYSIS OF 18.2. DOSE HELD UNTIL NEXT DIALYSIS SESSION. WILL FOLLOW UP IN AM OF 12 TO CHECK IF RECEIVING DIALYSIS OVER WEEKEND
[2022-05-02] MEDS: Apixaban 5 MG TABLET PO (19:54)
[2022-05-02] MEDS: Gabapentin 100 MG CAPSULE 200 MG PO (19:54)
[2022-05-02] MEDS: Melatonin 3 MG TABLET 6 MG PO (19:54)
[2022-05-02] MEDS: Metoprolol Tartrate 50 MG TABLET PO (19:54)
[2022-05-02] MEDS: Sevelamer Carbonate Tablet 800 MG TABLET PO (19:55)
[2022-05-02] MEDS: hydrALAZINE HCl 50 MG TABLET PO (19:55)
[2022-05-02] MEDS: lisinopriL 10 MG TABLET PO (19:55)
[2022-05-02] MEDS: 0.9 % Sodium Chloride Flush 3 ML SYRINGE IVFLUSH ×2 (19:58→23:32)
--- NOTE | 2022-05-02 20:21 | PC.NURSE ---
Care of patient assumed at 1900. She is alert, oriented x3, and overall well-appearing. She endorses 8/10 labial pain and is provided with prn tylenol- she also requests to have her evening meds at 7:55PM. She takes all PO medications without difficulty. Vitals obtained and stable. She is provided also with prn melatonin per request. Fistula to LUE is well-appearing. 22G PIV to right shoulder flushed and patent. Patient assisted with repositioning and is no resting comfortably in stretcher. Call mckinney is within reach.
[2022-05-02 21:31] VITALS: RESP 18
[2022-05-02] MEDS: Piperacillin Sodium/Tazobactam 4.5 GM in 0.9 % Sodium Chloride 100 ML IV (21:31)
[2022-05-03] MEDS: Levothyroxine Sodium 25 MCG TABLET PO (06:00)
[2022-05-03 07:11] LABS: Glucose, Whole Blood 378 mg/dL (60-115)
[2022-05-03 07:14] VITALS: BP 138/66; PULSE 81; RESP 16; O2SAT 95
--- NOTE | 2022-05-03 07:26 | HE.PHANOTE ---
Vancomycin Dosing Dialysis patient - MoWeFr. Dose based off post diaylsis. Random level scheduled for Saturday 05/05 post dialysis. No vancomycin today. Vanco still pending due to high level of 18 on 05/02. Amanda Guajardo, PharmD
[2022-05-03 07:58] LABS: Anion Gap 16 (12-20); Blood Urea Nitrogen 35 mg/dL (9-16); Calcium 8.9 mg/dL (8.4-10.2); Carbon Dioxide 25 mmol/L (22-29); Chloride 96 mmol/L (96-108); Creatinine Clr Calc Pharmacy 14.1; Estimated Glomerular Filt Rate 9; Glucose Random 431 mg/dL (60-115); Potassium 4.3 mmol/L (3.3-5.1); Sodium 133 mmol/L (135-145)
[2022-05-03 09:03] LABS: C Reactive Protein 3.17 mg/dL (< or = 0.50)
[2022-05-03] MEDS: Insulin Glargine,Hum.rec.anlog 100 UNIT/ML 10 ML VIAL 28 UNIT SUBCUT (09:09)
[2022-05-03] MEDS: Insulin Lispro 100 UNIT/ML 3 ML VIAL SUBCUT ×4 (09:10→21:53)
[2022-05-03] MEDS: hydrALAZINE HCl 50 MG TABLET PO ×3 (09:11→18:24)
[2022-05-03] MEDS: Atorvastatin Calcium 40 MG TABLET PO (09:11)
[2022-05-03] MEDS: Gabapentin 100 MG CAPSULE 200 MG PO ×2 (09:11→20:45)
[2022-05-03] MEDS: Metoprolol Tartrate 50 MG TABLET PO ×2 (09:11→20:45)
[2022-05-03] MEDS: Cholecalciferol (Vitamin D3) 25 MCG TABLET 50 MCG PO (09:11)
[2022-05-03] MEDS: Apixaban 5 MG TABLET PO ×2 (09:11→20:45)
[2022-05-03] MEDS: Sevelamer Carbonate Tablet 800 MG TABLET PO ×3 (09:11→18:25)
[2022-05-03] MEDS: Aspirin Enteric Coated 81 MG TABLET.DR PO (09:11)
[2022-05-03] MEDS: 0.9 % Sodium Chloride Flush 3 ML SYRINGE IVFLUSH ×2 (09:12→18:25)
[2022-05-03] MEDS: amLODIPine Besylate 10 MG TABLET PO (09:12)
--- NOTE | 2022-05-03 09:13 | PM.PNGS ---
Subjective Subjective Date of Service: 05/03/22 Interval history: Still sore but somewhat improved today Physical Exam Vital Signs: Vital Signs: Last Vital Signs Temp 99.5 F 05/02/22 19:49 Pulse 81 05/03/22 07:14 Resp 16 05/03/22 07:14 BP 138/66 05/03/22 07:14 Pulse Ox 95 05/03/22 07:14 O2 Del Method 05/03/22 07:14 BMI result Body Mass Index 37.2 Const: General: comfortable and no acute distress Resp: Effort & Inspection: normal respiratory effort Skin: Other: Warm and dry, labial swelling remains. Extrem: Other: No edema Objective Data Active Medications Acetaminophen (Acetaminophen 325 Mg Tablet) 650 mg PO Q6H PRN PRN Reason: Pain, Mild (Pain Scale 1-3) Last Admin: 05/02/22 19:53 Dose: 650 mg Documented By: CHER Amlodipine Besylate (Amlodipine Besylate 10 Mg Tablet) 10 mg PO DAILY [facility]; Protocol Last Admin: 05/03/22 09:12 Dose: 10 mg Documented By: SHANA Apixaban (Apixaban 5 Mg Tablet) 5 mg PO BID [facility] Last Admin: 05/03/22 09:11 Dose: 5 mg Documented By: SHANA Aspirin (Aspirin Enteric Coated 81 Mg Tablet.) 81 mg PO DAILY [facility] Last Admin: 05/03/22 09:11 Dose: 81 mg Documented By: SHANA Atorvastatin Calcium (Atorvastatin Calcium 40 Mg Tablet) 40 mg PO DAILY [facility] Last Admin: 05/03/22 09:11 Dose: 40 mg Documented By: SHANA Dextrose (Dextrose 50 % 25 Gm/50 Ml Syringe) 25 gm IVPUSH Q15M PRN; Protocol PRN Reason: per Hypoglycemia Standing Ord. Gabapentin (Gabapentin 100 Mg Capsule) 200 mg PO BID [facility] Last Admin: 05/03/22 09:11 Dose: 200 mg Documented By: SHANA Glucose (Glucose Gel 15 Gm Gel..Gram.) 15 gm PO Q15M PRN; Protocol PRN Reason: per Hypoglycemia Standing Ord. Hydralazine HCl (Hydralazine Hcl 50 Mg Tablet) 50 mg PO TID@0900,1200,1800 [facility]; Protocol Last Admin: 05/03/22 09:11 Dose: 50 mg Documented By: SHANA Piperacillin Sod/Tazobactam (Sod 4.5 gm/ Sodium Chloride) 100 mls @ 200 mls/hr IV Q12H [facility] Last Infusion: 05/02/22 22:02 Dose: 0 mls/hr Documented By: CHER Vancomycin HCl 750 mg/ Sodium (Chloride) 265 mls @ 265 mls/hr IV [id number]@2000 [facility] Insulin Glargine (Insulin Glargine,Hum.Rec.Anlog 100 Unit/Ml 10 Ml Vial) 28 unit SUBCUT DAILY [facility] Last Admin: 05/03/22 09:09 Dose: 28 unit Documented By: SHANA Insulin Human Lispro (Insulin Lispro 100 Unit/Ml 3 Ml Vial) 0 unit SUBCUT QIDACHS [facility]; Protocol Last Admin: 05/03/22 09:10 Dose: 20 unit Documented By: SHANA Levothyroxine Sodium (Levothyroxine Sodium 25 Mcg Tablet) 25 mcg PO DAILY@0600 [facility] Last Admin: 05/03/22 06:00 Dose: 25 mcg Documented By: CHER Lisinopril (Lisinopril 10 Mg Tablet) 10 mg PO BEDTIME [facility]; Protocol Last Admin: 05/02/22 19:55 Dose: 10 mg Documented By: CHER Melatonin (Melatonin 3 Mg Tablet) 6 mg PO BEDTIME PRN PRN Reason: Insomnia Last Admin: 05/02/22 19:54 Dose: 6 mg Documented By: CHER Metoprolol Tartrate (Metoprolol Tartrate 50 Mg Tablet) 50 mg PO BID [facility]; Protocol Last Admin: 05/03/22 09:11 Dose: 50 mg Documented By: SHANA Ondansetron HCl (Ondansetron Hcl 4 Mg/2 Ml Vial) 4 mg IVPUSH Q8H PRN PRN Reason: Nausea and Vomiting Pharmacy Consult (Consult Rx Vancomycin Dosing) 1 each MISCELLANE DAILY PRN PRN Reason: Consult order Pharmacy Consult (Consult Rx Perform Med Rec) 1 each MISCELLANE ONCE PRN PRN Reason: Consult order Sevelamer Carbonate (Sevelamer Carbonate Tablet 800 Mg Tablet) 800 mg PO TIDAC [facility] Last Admin: 05/03/22 09:11 Dose: 800 mg Documented By: SHANA Sodium Chloride (0.9 % Sodium Chloride Flush 3 Ml Syringe) 3 ml IVFLUSH QSHIFT [facility] Last Admin: 05/03/22 09:12 Dose: 3 ml Documented By: SHANA Vitamin D (Cholecalciferol (Vitamin D3) 25 Mcg Tablet) 50 mcg PO DAILY [facility] Last Admin: 05/03/22 09:11 Dose: 50 mcg Documented By: SHANA Labs CBC & Chem 7: 05/02/22 06:11 05/03/22 06:19 Labs: Laboratory Results - last 24 hr 05/02/22 05/02/22 05/02/22 17:36 19:03 19:13 Anion Gap Estim Creat Clear Calc Estimated GFR POC Glucose 223 H Random Glucose Calcium C-Reactive Protein Random Vancomycin 18.2 COVID-19 (AYESHA) Negative COVID-19 Clin Com See Note 05/03/22 05/03/22 06:19 07:07 Anion Gap 16 Estim Creat Clear Calc 14.1 Estimated GFR 9 POC Glucose 378 H* Random Glucose 431 H* Calcium 8.9 C-Reactive Protein 3.17 H Random Vancomycin COVID-19 (AYESHA) COVID-19 Clin Com Microbiology Microbiology Results: Microbiology 05/02/22 01:15 Blood Culture - Preliminary Blood - Venous No growth after 24 hours. 05/02/22 01:15 Blood Culture - Preliminary Blood - Venous No growth after 24 hours. Procedures Date of Service Date of Service: 05/03/22 Progress Note: A&P Assessment and plan (1) Vulvar abscess: Status: Acute Plan S/p incision and drainage labial abscess. Continue local wound care and antibiotics. Time Spent With Patient Time: Total time managing care of this patient today ____ minutes. Quality Stroke Does the patient have a stroke diagnosis?: No VTE Prior VTE?: No VTE Risk Level:: Medical - low VTE Device Contraindication: Treatment Not Indicated VTE Drug Contraindication: Treatment Not Indicated
[2022-05-03] MEDS: Acetaminophen 325 MG TABLET 650 MG PO ×2 (09:22→20:45)
[2022-05-03] MEDS: Piperacillin Sodium/Tazobactam 4.5 GM in 0.9 % Sodium Chloride 100 ML IV ×2 (09:25→21:53)
[2022-05-03 12:47] LABS: Glucose, Whole Blood 339 mg/dL (60-115)
--- NOTE | 2022-05-03 13:00 | HO.PM.IMPN ---
Subjective Subjective Date of Service: 05/03/22 Interval History: c/o labial pain, no drainage no fever Review of Systems Review of Systems: Yes all other systems are reviewed and are negative Physical Exam Vital Signs: Vital Signs: Last Vital Signs Temp 99.5 F 05/02/22 19:49 Pulse 81 05/03/22 07:14 Resp 16 05/03/22 07:14 BP 138/66 05/03/22 07:14 Pulse Ox 95 05/03/22 07:14 O2 Del Method 05/03/22 07:14 BMI result Body Mass Index 37.2 Gen: in no acute distress HEENT: sclera anicteric, moist mucus membranes Neck: supple Lungs: clear to auscultation bilaterally Heart: regular rate and rhythm, no murmurs Abd: soft, non-tender, non-distended Ext: no edema Skin: warm/well-perfused; per surgery, left labia majora with induration around site of I+D with packing in place, no fluid collection or erythema Neuro: alert and oriented x3, no focal findings Psych: appropriate affect Objective Data Active Medications Acetaminophen (Acetaminophen 325 Mg Tablet) 650 mg PO Q6H PRN PRN Reason: Pain, Mild (Pain Scale 1-3) Last Admin: 05/03/22 09:22 Dose: 650 mg Documented By: SHANA Amlodipine Besylate (Amlodipine Besylate 10 Mg Tablet) 10 mg PO DAILY [facility]; Protocol Last Admin: 05/03/22 09:12 Dose: 10 mg Documented By: SHANA Apixaban (Apixaban 5 Mg Tablet) 5 mg PO BID [facility] Last Admin: 05/03/22 09:11 Dose: 5 mg Documented By: SHANA Aspirin (Aspirin Enteric Coated 81 Mg Tablet.) 81 mg PO DAILY [facility] Last Admin: 05/03/22 09:11 Dose: 81 mg Documented By: SHANA Atorvastatin Calcium (Atorvastatin Calcium 40 Mg Tablet) 40 mg PO DAILY [facility] Last Admin: 05/03/22 09:11 Dose: 40 mg Documented By: SHANA Dextrose (Dextrose 50 % 25 Gm/50 Ml Syringe) 25 gm IVPUSH Q15M PRN; Protocol PRN Reason: per Hypoglycemia Standing Ord. Gabapentin (Gabapentin 100 Mg Capsule) 200 mg PO BID [facility] Last Admin: 05/03/22 09:11 Dose: 200 mg Documented By: SHANA Glucose (Glucose Gel 15 Gm Gel..Gram.) 15 gm PO Q15M PRN; Protocol PRN Reason: per Hypoglycemia Standing Ord. Hydralazine HCl (Hydralazine Hcl 50 Mg Tablet) 50 mg PO TID@0900,1200,1800 [facility]; Protocol Last Admin: 05/03/22 09:11 Dose: 50 mg Documented By: SHANA Piperacillin Sod/Tazobactam (Sod 4.5 gm/ Sodium Chloride) 100 mls @ 200 mls/hr IV Q12H [facility] Last Infusion: 05/03/22 10:31 Dose: 0 mls/hr Documented By: SHANA Vancomycin HCl 750 mg/ Sodium (Chloride) 265 mls @ 265 mls/hr IV MoWeFr@2000 [facility] Insulin Glargine (Insulin Glargine,Hum.Rec.Anlog 100 Unit/Ml 10 Ml Vial) 28 unit SUBCUT DAILY [facility] Last Admin: 05/03/22 09:09 Dose: 28 unit Documented By: SHANA Insulin Human Lispro (Insulin Lispro 100 Unit/Ml 3 Ml Vial) 0 unit SUBCUT QIDACHS [facility]; Protocol Last Admin: 05/03/22 09:10 Dose: 20 unit Documented By: SHANA Levothyroxine Sodium (Levothyroxine Sodium 25 Mcg Tablet) 25 mcg PO DAILY@0600 [facility] Last Admin: 05/03/22 06:00 Dose: 25 mcg Documented By: CHER Lisinopril (Lisinopril 10 Mg Tablet) 10 mg PO BEDTIME [facility]; Protocol Last Admin: 05/02/22 19:55 Dose: 10 mg Documented By: CHER Melatonin (Melatonin 3 Mg Tablet) 6 mg PO BEDTIME PRN PRN Reason: Insomnia Last Admin: 05/02/22 19:54 Dose: 6 mg Documented By: CHER Metoprolol Tartrate (Metoprolol Tartrate 50 Mg Tablet) 50 mg PO BID [facility]; Protocol Last Admin: 05/03/22 09:11 Dose: 50 mg Documented By: SHANA Ondansetron HCl (Ondansetron Hcl 4 Mg/2 Ml Vial) 4 mg IVPUSH Q8H PRN PRN Reason: Nausea and Vomiting Pharmacy Consult (Consult Rx Vancomycin Dosing) 1 each MISCELLANE DAILY PRN PRN Reason: Consult order Pharmacy Consult (Consult Rx Perform Med Rec) 1 each MISCELLANE ONCE PRN PRN Reason: Consult order Sevelamer Carbonate (Sevelamer Carbonate Tablet 800 Mg Tablet) 800 mg PO TIDAC [facility] Last Admin: 05/03/22 09:11 Dose: 800 mg Documented By: SHANA Sodium Chloride (0.9 % Sodium Chloride Flush 3 Ml Syringe) 3 ml IVFLUSH QSHIFT [facility] Last Admin: 05/03/22 09:12 Dose: 3 ml Documented By: SHANA Vitamin D (Cholecalciferol (Vitamin D3) 25 Mcg Tablet) 50 mcg PO DAILY [facility] Last Admin: 05/03/22 09:11 Dose: 50 mcg Documented By: SHANA Labs CBC & Chem 7: 05/02/22 06:11 05/03/22 06:19 Labs: Laboratory Results - last 24 hr 05/02/22 05/02/22 05/02/22 17:36 19:03 19:13 Anion Gap Estim Creat Clear Calc Estimated GFR POC Glucose 223 H Random Glucose Calcium C-Reactive Protein Random Vancomycin 18.2 COVID-19 (AYESHA) Negative COVID-19 Clin Com See Note 05/03/22 05/03/22 05/03/22 06:19 07:07 12:43 Anion Gap 16 Estim Creat Clear Calc 14.1 Estimated GFR 9 POC Glucose 378 H* 339 H Random Glucose 431 H* Calcium 8.9 C-Reactive Protein 3.17 H Random Vancomycin COVID-19 (AYESHA) COVID-19 Clin Com Microbiology Microbiology Results: Microbiology 05/02/22 Unknown Urine Culture - Preliminary Urine clean catch - Urine mcnair top Culture in progress. 05/02/22 01:15 Blood Culture - Preliminary Blood - Venous No growth after 24 hours. 05/02/22 01:15 Blood Culture - Preliminary Blood - Venous No growth after 24 hours. Assessment and Plan (1) Cellulitis: Status: Acute Plan d#3 57yo with AF on apixaban, DM2, GERD, HTN, hypothyroidism, HLD, ERSD on HD, recent PNA admitted for 3d of labial swelling; has hx of recurrent labial cysts/abscess underwent I+D in ER with no drainage; wound packed # vulvar cellulitis with phlegmon [no abscess] - Surgery consulted. continue vanc + pip/abigail d#3; consult ID # [id number] with hyperglycemia - basal/bolus insulin- increase doses # ESRD on HD - Nephrology consult for HD MWF - sevelamer # CAD - aspirin - metoprolol # paroxysmal AF - apixaban - continue metoprolol # HTN - amlodipine, lisinopril, metoprolol, hydralazine # GERD - PPI # hypothyroidism - LT4 # VTE ppx: apixaban In my clinical judgment, the patient requires continued inpatient hospitalization for the following reasons: IV ABX Time Spent With Patient Time: Total time managing care of this patient today ____ minutes. Quality Stroke Does the patient have a stroke diagnosis?: No VTE Prior VTE?: No VTE Risk Level:: Medical - low VTE Device Contraindication: Treatment Not Indicated VTE Drug Contraindication: Treatment Not Indicated
[2022-05-03 15:48] VITALS: BP 142/58; PULSE 65; RESP 16; TEMP 36.5; O2SAT 96
[2022-05-03 18:13] LABS: Glucose, Whole Blood 347 mg/dL (60-115)
[2022-05-03] MEDS: lisinopriL 10 MG TABLET PO (20:45)
[2022-05-03] MEDS: Melatonin 3 MG TABLET 6 MG PO (20:45)
[2022-05-03 21:06] LABS: Glucose, Whole Blood 343 mg/dL (60-115)
[2022-05-04 00:27] VITALS: BP 131/60; PULSE 62; RESP 18; TEMP 36.6; O2SAT 97
--- NOTE | 2022-05-04 03:22 | PC.NURSE ---
Pt sleeping at this time, respirations regular.
[2022-05-04 05:49] VITALS: BP 143/57; PULSE 58; RESP 18; TEMP 36.4; O2SAT 99
[2022-05-04] MEDS: Levothyroxine Sodium 25 MCG TABLET PO (05:54)
--- NOTE | 2022-05-04 06:05 | PC.NURSE ---
Pt assisted to restroom.
[2022-05-04 07:30] LABS: Blood Urea Nitrogen 62 mg/dL (9-16); Creatinine Clr Calc Pharmacy 9.9; Estimated Glomerular Filt Rate 6; Glucose Random 316 mg/dL (60-115)
[2022-05-04 07:40] LABS: Glucose, Whole Blood 291 mg/dL (60-115)
[2022-05-04 07:44] LABS: Anion Gap 21 (12-20); Carbon Dioxide 22 mmol/L (22-29); Chloride 96 mmol/L (96-108); Potassium 4.7 mmol/L (3.3-5.1); Sodium 134 mmol/L (135-145)
[2022-05-04] MEDS: Insulin Glargine,Hum.rec.anlog 100 UNIT/ML 10 ML VIAL 28 UNIT SUBCUT (09:22)
[2022-05-04] MEDS: Insulin Lispro 100 UNIT/ML 3 ML VIAL SUBCUT ×3 (09:22→20:02)
[2022-05-04] MEDS: Cholecalciferol (Vitamin D3) 25 MCG TABLET 50 MCG PO (09:23)
[2022-05-04] MEDS: Aspirin Enteric Coated 81 MG TABLET.DR PO (09:23)
[2022-05-04] MEDS: Metoprolol Tartrate 50 MG TABLET PO ×2 (09:23→20:02)
[2022-05-04] MEDS: Gabapentin 100 MG CAPSULE 200 MG PO ×2 (09:23→20:02)
[2022-05-04] MEDS: Atorvastatin Calcium 40 MG TABLET PO (09:24)
[2022-05-04] MEDS: Apixaban 5 MG TABLET PO ×2 (09:24→20:03)
[2022-05-04] MEDS: Sevelamer Carbonate Tablet 800 MG TABLET PO ×3 (09:24→18:12)
[2022-05-04] MEDS: amLODIPine Besylate 10 MG TABLET PO (09:24)
[2022-05-04] MEDS: hydrALAZINE HCl 50 MG TABLET PO ×3 (09:24→18:12)
--- NOTE | 2022-05-04 10:25 | P.PNIM_ITS ---
Subjective Subjective Date of Service: 05/04/22 Interval History: Complaining of labial pain back better, denies fever chills, tolerating diet no nausea, no vomiting, no abdominal pain, no other acute issues overnight receiving IV antibiotics. Review of Systems Review of Systems: Yes all other systems are reviewed and are negative Physical Exam Vital Signs: Vital Signs: Last Vital Signs Temp 97.6 F 05/04/22 05:49 Pulse 58 05/04/22 05:49 Resp 18 05/04/22 05:49 BP 143/57 H 05/04/22 05:49 Pulse Ox 99 05/04/22 05:49 O2 Del Method 05/04/22 05:49 BMI result Body Mass Index 37.2 Const: Other: Gen: Awake alert x3, in no acute distress HEENT: sclera anicteric, moist mucus membranes Neck: supple Lungs: clear to auscultation bilaterally Heart: regular rate and rhythm, no murmurs Abd: soft, non-tender, non-distended Ext: no edema Skin: warm/well-perfused; left labia majora with induration around site of I+D no drainage,no fluid collection Neuro: alert and oriented x3, no focal findings Psych: appropriate affect Objective Data Active Medications Acetaminophen (Acetaminophen 325 Mg Tablet) 650 mg PO Q6H PRN PRN Reason: Pain, Mild (Pain Scale 1-3) Last Admin: 05/03/22 20:45 Dose: 650 mg Documented By: SYEDA Amlodipine Besylate (Amlodipine Besylate 10 Mg Tablet) 10 mg PO DAILY [facility]; Protocol Last Admin: 05/04/22 09:24 Dose: 10 mg Documented By: WILBER Apixaban (Apixaban 5 Mg Tablet) 5 mg PO BID [facility] Last Admin: 05/04/22 09:24 Dose: 5 mg Documented By: WILBER Aspirin (Aspirin Enteric Coated 81 Mg Tablet.) 81 mg PO DAILY [facility] Last Admin: 05/04/22 09:23 Dose: 81 mg Documented By: WILBER Atorvastatin Calcium (Atorvastatin Calcium 40 Mg Tablet) 40 mg PO DAILY [facility] Last Admin: 05/04/22 09:24 Dose: 40 mg Documented By: WILBER Dextrose (Dextrose 50 % 25 Gm/50 Ml Syringe) 25 gm IVPUSH Q15M PRN; Protocol PRN Reason: per Hypoglycemia Standing Ord. Gabapentin (Gabapentin 100 Mg Capsule) 200 mg PO BID [facility] Last Admin: 05/04/22 09:23 Dose: 200 mg Documented By: WILBER Glucose (Glucose Gel 15 Gm Gel..Gram.) 15 gm PO Q15M PRN; Protocol PRN Reason: per Hypoglycemia Standing Ord. Hydralazine HCl (Hydralazine Hcl 50 Mg Tablet) 50 mg PO TID@0900,1200,1800 [facility]; Protocol Last Admin: 05/04/22 09:24 Dose: 50 mg Documented By: WILBER Piperacillin Sod/Tazobactam (Sod 4.5 gm/ Sodium Chloride) 100 mls @ 200 mls/hr IV Q12H [facility] Last Infusion: 05/03/22 23:08 Dose: 0 mls/hr Documented By: SYEDA Vancomycin HCl 750 mg/ Sodium (Chloride) 265 mls @ 265 mls/hr IV MoWeFr@2000 [facility] Insulin Glargine (Insulin Glargine,Hum.Rec.Anlog 100 Unit/Ml 10 Ml Vial) 28 unit SUBCUT DAILY [facility] Last Admin: 05/04/22 09:22 Dose: 28 unit Documented By: WILBER Insulin Human Lispro (Insulin Lispro 100 Unit/Ml 3 Ml Vial) 0 unit SUBCUT QIDACHS [facility]; Protocol Last Admin: 05/04/22 09:22 Dose: 12 unit Documented By: WILBER Levothyroxine Sodium (Levothyroxine Sodium 25 Mcg Tablet) 25 mcg PO DAILY@0600 [facility] Last Admin: 05/04/22 05:54 Dose: 25 mcg Documented By: ARISTEO-LITDESIRE Lisinopril (Lisinopril 10 Mg Tablet) 10 mg PO BEDTIME [facility]; Protocol Last Admin: 05/03/22 20:45 Dose: 10 mg Documented By: SYEDA Melatonin (Melatonin 3 Mg Tablet) 6 mg PO BEDTIME PRN PRN Reason: Insomnia Last Admin: 05/03/22 20:45 Dose: 6 mg Documented By: SYEDA Metoprolol Tartrate (Metoprolol Tartrate 50 Mg Tablet) 50 mg PO BID [facility]; Protocol Last Admin: 05/04/22 09:23 Dose: 50 mg Documented By: WILBER Ondansetron HCl (Ondansetron Hcl 4 Mg/2 Ml Vial) 4 mg IVPUSH Q8H PRN PRN Reason: Nausea and Vomiting Pharmacy Consult (Consult Rx Vancomycin Dosing) 1 each MISCELLANE DAILY PRN PRN Reason: Consult order Pharmacy Consult (Consult Rx Perform Med Rec) 1 each MISCELLANE ONCE PRN PRN Reason: Consult order Sevelamer Carbonate (Sevelamer Carbonate Tablet 800 Mg Tablet) 800 mg PO TIDAC [facility] Last Admin: 05/04/22 09:24 Dose: 800 mg Documented By: WILBER Sodium Chloride (0.9 % Sodium Chloride Flush 3 Ml Syringe) 3 ml IVFLUSH QSHIFT [facility] Last Admin: 05/04/22 07:00 Dose: Not Given Documented By: WILBER Non-Admin Reason: Med Not Available Vitamin D (Cholecalciferol (Vitamin D3) 25 Mcg Tablet) 50 mcg PO DAILY [facility] Last Admin: 05/04/22 09:23 Dose: 50 mcg Documented By: WILBER Labs CBC & Chem 7: 05/02/22 06:11 05/04/22 06:56 Labs: Laboratory Results - last 24 hr 05/03/22 05/03/22 05/03/22 12:43 18:09 20:59 Anion Gap Estim Creat Clear Calc Estimated GFR POC Glucose 339 H 347 H 343 H Random Glucose Calcium 05/04/22 05/04/22 06:56 07:18 Anion Gap 21 H Estim Creat Clear Calc 9.9 Estimated GFR 6 POC Glucose 291 H Random Glucose 316 H Calcium 9.0 Microbiology Microbiology Results: Microbiology 05/02/22 01:15 Blood Culture - Preliminary Blood - Venous No growth after 48 hours. 05/02/22 01:15 Blood Culture - Preliminary Blood - Venous No growth after 48 hours. 05/02/22 Unknown Urine Culture - Preliminary Urine clean catch - Urine mcnair top Culture in progress. Assessment and Plan (1) Cellulitis: Status: Acute (2) Type 2 diabetes mellitus with hyperglycemia: Status: Acute Plan 57yo? with AF on apixaban, DM2, GERD, HTN, hypothyroidism, HLD, ERSD on HD, recent PNA admitted for 3d of labial swelling; has hx of recurrent labial cysts/abscess underwent I+D in ER with no drainage; wound packed # vulvar cellulitis with phlegmon [no abscess] - continue vanc + pip/abigail d#4; blood cultures x2 negative patient afebrile, normal WBC Question transition to by mouth antibiotic, further treatment plan as per General surgery # DM2 with hyperglycemia blood sugars greater than 200 will resume home dose of Januvia, strongly recommended to follow diabetic diet - continue basal/bolus insulin # ESRD on HD - Nephrology consult for HD MWF - sevelamer # CAD - aspirin - metoprolol and statins, no complain of chest pain # paroxysmal AF - apixaban - continue metoprolol # HTN - stable blood pressure continue amlodipine, lisinopril, metoprolol, hydralazine # GERD - PPI # hypothyroidism - LT4 # VTE ppx: apixaban Time Spent With Patient Time: Total time managing care of this patient today ____ minutes. Quality Stroke Does the patient have a stroke diagnosis?: No VTE Prior VTE?: No VTE Risk Level:: Medical - low VTE Device Contraindication: Treatment Not Indicated VTE Drug Contraindication: Treatment Not Indicated
[2022-05-04] MEDS: Piperacillin Sodium/Tazobactam 4.5 GM in 0.9 % Sodium Chloride 100 ML IV ×2 (10:55→22:07)
[2022-05-04] MEDS: SITagliptin Phosphate 25 MG TABLET PO (10:55)
[2022-05-04 13:37] LABS: Glucose, Whole Blood 397 mg/dL (60-115)
[2022-05-04 17:21] VITALS: BP 119/58; PULSE 61; RESP 14; TEMP 36.6; O2SAT 98
[2022-05-04 18:25] LABS: Glucose, Whole Blood 346 mg/dL (60-115)
[2022-05-04 19:36] VITALS: BP 183/75; PULSE 72; RESP 14; TEMP 36.6; O2SAT 98
[2022-05-04] MEDS: lisinopriL 10 MG TABLET PO (20:03)
[2022-05-04] MEDS: Acetaminophen 325 MG TABLET 650 MG PO (20:12)
[2022-05-04] MEDS: Melatonin 3 MG TABLET 6 MG PO (20:12)
--- NOTE | 2022-05-04 20:13 | PC.NURSE ---
Addendum entered by Kassidy Levin RN 05/05/22 06:53: report given to GAGE Cantrelle Addendum entered by Kassidy Levin RN 05/05/22 06:10: pt at dialysis Addendum entered by Kassidy Levin RN 05/04/22 20:28: Dr. Oviedo made aware pt BS [id number] Addendum entered by Kassidy Levin RN 05/04/22 20:23: DR. Oviedo amde aware that pt did not received her 1430 insulin, BS was at 346, this RN administered 16 units to cover her afternoon meal at [address]. per Dr. Oviedo to hold her 2100 insulin since she received her afternoon insulin late. Original Note: pt is alert and oriented resting in bed no signs of acute distress notice breathing equally unlabored
[2022-05-04 20:34] LABS: Glucose, Whole Blood 388 mg/dL (60-115)
[2022-05-04] MEDS: Insulin Regular, Human 100 UNIT/ML 3 ML VIAL IVPUSH (22:40)
[2022-05-05 08:40] LABS: Blood Urea Nitrogen 21 mg/dL (9-16); Calcium 8.6 mg/dL (8.4-10.2); Creatinine Clr Calc Pharmacy 28.5; Estimated Glomerular Filt Rate 21; Glucose Random 193 mg/dL (60-115)
[2022-05-05 09:04] LABS: Anion Gap 15 (12-20); Carbon Dioxide 25 mmol/L (22-29); Chloride 95 mmol/L (96-108); Potassium 2.9 mmol/L (3.3-5.1); Sodium 132 mmol/L (135-145)
[2022-05-05 09:46] VITALS: BP 131/59; PULSE 60; RESP 16; TEMP 36.6; O2SAT 99
[2022-05-05 09:53] LABS: Glucose, Whole Blood 224 mg/dL (60-115)
--- NOTE | 2022-05-05 10:49 | P.PNNP_ITS ---
Subjective Subjective Date of Service: 05/05/22 Interval history: Seen and examined, events noted Physical Exam Vital Signs: Vital Signs: Last Vital Signs Temp 97.3 F 05/06/22 07:10 Pulse 73 05/06/22 07:10 Resp 18 05/06/22 07:10 BP 152/66 H 05/06/22 07:10 Pulse Ox 95 05/06/22 07:10 O2 Del Method 05/06/22 07:10 BMI result Body Mass Index 37.2 Const: General: comfortable, no acute distress and alert Orientation/co nsciousness: patient oriented x3 Resp: Effort & Inspection: normal respiratory effort : Other: left labia majora with significant induration extending superiorly and inferiorly beyond site of I&D with packing in place, no palpable fluid collection or erythema noted, area very tender Neuro: General: patient oriented x3 Extrem: Other: AV fistula left upper arm Objective Data Labs CBC & Chem 7: 05/02/22 06:11 05/06/22 05:37 Labs: Laboratory Results - last 24 hr 05/05/22 05/05/22 05/05/22 10:14 11:07 16:02 Sodium Potassium Chloride Carbon Dioxide Anion Gap BUN Creatinine Estim Creat Clear Calc Estimated GFR POC Glucose 275 H 350 H* Random Glucose Calcium Random Vancomycin 13.3 L 05/05/22 05/06/22 05/06/22 19:42 05:37 07:13 Sodium 132 L Potassium 6.2 H* D Chloride 99 Carbon Dioxide 19 L Anion Gap 20 BUN 62 H Creatinine 6.24 H* Estim Creat Clear Calc 11.1 Estimated GFR 7 POC Glucose 332 H 380 H* Random Glucose 385 H* Calcium 8.8 Random Vancomycin Microbiology Microbiology Results: Microbiology 05/02/22 Unknown Urine clean catch - Urine mcnair top Urine Culture - Final 05/02/22 01:15 Blood - Venous Blood Culture - Preliminary No growth after 48 hours. 05/02/22 01:15 Blood - Venous Blood Culture - Preliminary No growth after 48 hours. Procedures Date of Service Date of Service: 05/05/22 Assessment & Plan Assessment and plan (1) 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: Status: Acute (2) AMARJIT (obstructive sleep apnea): Status: Acute (3) ESRD (end stage renal disease): Status: Acute (4) Vulvar abscess: Status: Acute Plan Pt has ESRD and is undertaking HD today Will keep her on her MWF schedule as long as she is admitted On vancomycin BP is controlled Rec REHABILITATION PSYCHOLOGIST eval as this may be difficult to get done in a timely manner as an outpt and this infection has been a recurrent problem Time Spent With Patient Time: Total time managing care of this patient today ____ minutes. Progress Note: Quality Stroke Does the patient have a stroke diagnosis?: No
[2022-05-05] MEDS: Piperacillin Sodium/Tazobactam 4.5 GM in 0.9 % Sodium Chloride 100 ML IV (11:05)
[2022-05-05] MEDS: hydrALAZINE HCl 50 MG TABLET PO ×2 (11:05→16:43)
[2022-05-05] MEDS: Sevelamer Carbonate Tablet 800 MG TABLET PO ×2 (11:05→16:43)
[2022-05-05 11:07] LABS: Vancomycin Random 13.3 mcg/mL (15-20)
[2022-05-05 11:11] LABS: Glucose, Whole Blood 275 mg/dL (60-115)
[2022-05-05] MEDS: Insulin Lispro 100 UNIT/ML 3 ML VIAL SUBCUT ×3 (11:15→21:15)
--- NOTE | 2022-05-05 15:00 | HO.PM.IMPN ---
Subjective Subjective Date of Service: 05/05/22 Interval History: Patient feels lightheaded this morning after coming from hemodialysis still complaining of labial pain, denies fever chills, complain of generalized weakness. Review of Systems Review of Systems: Yes all other systems are reviewed and are negative Physical Exam Vital Signs: Vital Signs: Last Vital Signs Temp 98 F 05/05/22 09:46 Pulse 60 05/05/22 09:46 Resp 16 05/05/22 09:46 BP 131/59 L 05/05/22 09:46 Pulse Ox 99 05/05/22 09:46 O2 Del Method 05/05/22 09:46 BMI result Body Mass Index 37.2 Const: Other: Gen:? Awake alert x3, in no acute distress HEENT: sclera anicteric, moist mucus membranes Neck: supple Lungs: clear to auscultation bilaterally Heart: regular rate and rhythm, no murmurs Abd: soft, non-tender, non-distended Ext: no edema Skin: warm/well-perfused; left labia majora with induration around site of I+D no drainage, tenderness to palpation, with no fluid collection Neuro: alert and oriented x3, no focal findings Psych: appropriate affect Objective Data Active Medications Acetaminophen (Acetaminophen 325 Mg Tablet) 650 mg PO Q6H PRN PRN Reason: Pain, Mild (Pain Scale 1-3) Last Admin: 05/04/22 20:12 Dose: 650 mg Documented By: JESSICA Amlodipine Besylate (Amlodipine Besylate 10 Mg Tablet) 10 mg PO DAILY [facility]; Protocol Last Admin: 05/05/22 09:46 Dose: Not Given Documented By: IDA Non-Admin Reason: Off unit: Dialysis Apixaban (Apixaban 5 Mg Tablet) 5 mg PO BID [facility] Last Admin: 05/05/22 09:45 Dose: Not Given Documented By: IDA Non-Admin Reason: Off unit: Dialysis Aspirin (Aspirin Enteric Coated 81 Mg Tablet.) 81 mg PO DAILY [facility] Last Admin: 05/05/22 09:46 Dose: Not Given Documented By: IDA Non-Admin Reason: Off unit: Dialysis Atorvastatin Calcium (Atorvastatin Calcium 40 Mg Tablet) 40 mg PO DAILY [facility] Last Admin: 05/05/22 09:46 Dose: Not Given Documented By: IDA Non-Admin Reason: Off unit: Dialysis Dextrose (Dextrose 50 % 25 Gm/50 Ml Syringe) 25 gm IVPUSH Q15M PRN; Protocol PRN Reason: per Hypoglycemia Standing Ord. Gabapentin (Gabapentin 100 Mg Capsule) 200 mg PO BID [facility] Last Admin: 05/05/22 09:45 Dose: Not Given Documented By: IDA Non-Admin Reason: Off unit: Dialysis Glucose (Glucose Gel 15 Gm Gel..Gram.) 15 gm PO Q15M PRN; Protocol PRN Reason: per Hypoglycemia Standing Ord. Hydralazine HCl (Hydralazine Hcl 50 Mg Tablet) 50 mg PO TID@0900,1200,1800 [facility]; Protocol Last Admin: 05/05/22 11:05 Dose: 50 mg Documented By: HECTOR Piperacillin Sod/Tazobactam (Sod 4.5 gm/ Sodium Chloride) 100 mls @ 200 mls/hr IV Q12H [facility] Last Infusion: 05/05/22 11:47 Dose: 0 mls/hr Documented By: HECTOR Vancomycin HCl 750 mg/ Sodium (Chloride) 265 mls @ 265 mls/hr IV MoWeFr@2000 [facility] Vancomycin HCl 500 mg/ Sodium (Chloride) 110 mls @ 110 mls/hr IV ONCE ONE Stop: 05/05/22 20:59 Insulin Glargine (Insulin Glargine,Hum.Rec.Anlog 100 Unit/Ml 10 Ml Vial) 28 unit SUBCUT DAILY [facility] Last Admin: 05/05/22 09:46 Dose: Not Given Documented By: IDA Non-Admin Reason: Off unit: Dialysis Insulin Human Lispro (Insulin Lispro 100 Unit/Ml 3 Ml Vial) 0 unit SUBCUT QIDACHS [facility]; Protocol Last Admin: 05/05/22 11:15 Dose: 12 unit Documented By: HECTOR Levothyroxine Sodium (Levothyroxine Sodium 25 Mcg Tablet) 25 mcg PO DAILY@0600 [facility] Last Admin: 05/05/22 09:46 Dose: Not Given Documented By: IDA Non-Admin Reason: Off unit: Dialysis Lisinopril (Lisinopril 10 Mg Tablet) 10 mg PO BEDTIME [facility]; Protocol Last Admin: 05/04/22 20:03 Dose: 10 mg Documented By: ARISTEO-ABRANICL Melatonin (Melatonin 3 Mg Tablet) 6 mg PO BEDTIME PRN PRN Reason: Insomnia Last Admin: 05/04/22 20:12 Dose: 6 mg Documented By: N-ANICL Metoprolol Tartrate (Metoprolol Tartrate 50 Mg Tablet) 50 mg PO BID [facility]; Protocol Last Admin: 05/05/22 09:46 Dose: Not Given Documented By: IDA Non-Admin Reason: Off unit: Dialysis Ondansetron HCl (Ondansetron Hcl 4 Mg/2 Ml Vial) 4 mg IVPUSH Q8H PRN PRN Reason: Nausea and Vomiting Pharmacy Consult (Consult Rx Vancomycin Dosing) 1 each MISCELLANE DAILY PRN PRN Reason: Consult order Pharmacy Consult (Consult Rx Perform Med Rec) 1 each MISCELLANE ONCE PRN PRN Reason: Consult order Sevelamer Carbonate (Sevelamer Carbonate Tablet 800 Mg Tablet) 800 mg PO TIDAC [facility] Last Admin: 05/05/22 11:05 Dose: 800 mg Documented By: HECTOR Sitagliptin Phosphate (Sitagliptin Phosphate 25 Mg Tablet) 25 mg PO DAILY [facility] Last Admin: 05/05/22 09:47 Dose: Not Given Documented By: IDA Non-Admin Reason: Off unit: Dialysis Sodium Chloride (0.9 % Sodium Chloride Flush 3 Ml Syringe) 3 ml IVFLUSH QSHIFT [facility] Last Admin: 05/05/22 09:44 Dose: Not Given Documented By: IDA Non-Admin Reason: Off unit: Dialysis Vitamin D (Cholecalciferol (Vitamin D3) 25 Mcg Tablet) 50 mcg PO DAILY [facility] Last Admin: 05/05/22 09:46 Dose: Not Given Documented By: IDA Non-Admin Reason: Off unit: Dialysis Labs CBC & Chem 7: 05/02/22 06:11 05/05/22 08:14 Labs: Laboratory Results - last 24 hr 05/04/22 05/04/22 05/05/22 18:17 20:26 08:14 Anion Gap 15 Estim Creat Clear Calc 28.5 Estimated GFR 21 POC Glucose 346 H 388 H* Random Glucose 193 H Calcium 8.6 Random Vancomycin 05/05/22 05/05/22 05/05/22 09:44 10:14 11:07 Anion Gap Estim Creat Clear Calc Estimated GFR POC Glucose 224 H 275 H Random Glucose Calcium Random Vancomycin 13.3 L Microbiology Microbiology Results: Microbiology 05/02/22 Unknown Urine Culture - Final Urine clean catch - Urine mcnair top Assessment and Plan (1) Cellulitis: Status: Acute (2) Type 2 diabetes mellitus with hyperglycemia: Status: Acute Plan 57yo? with AF on apixaban, DM2, GERD, HTN, hypothyroidism, HLD, ERSD on HD, recent PNA admitted for 3d of labial swelling; has hx of recurrent labial cysts/abscess underwent I+D in ER with no drainage; wound packed # vulvar cellulitis with phlegmon [no abscess] - on iv vanc + pip/abigail d#5; blood cultures x2 negative patient afebrile, normal WBC will transition to by mouth antibiotic, outpatient follow-up with General surgery in 2 weeks Generalized weakness likely due to hemodialysis will monitor # hypokalemia will replete and follow # DM2 with hyperglycemia blood sugars greater than 200 will resume home dose of Januvia, strongly recommended to follow diabetic diet - continue basal/bolus insulin # ESRD on HD - underwent hemodialysis early this morning feel lightheaded postprocedure continue HD MWF - continue sevelamer # chronic normocytic anemia related to kidney disease # CAD - aspirin - metoprolol and statins, no complain of chest pain # paroxysmal AF - apixaban - continue metoprolol # HTN - stable blood pressure continue amlodipine, lisinopril, metoprolol, hydralazine # GERD - PPI # hypothyroidism - LT4 # VTE ppx: apixaban Time Spent With Patient Time: Total time managing care of this patient today ____ minutes. Quality Stroke Does the patient have a stroke diagnosis?: No VTE Prior VTE?: No VTE Risk Level:: Medical - low VTE Device Contraindication: Treatment Not Indicated VTE Drug Contraindication: Treatment Not Indicated
--- NOTE | 2022-05-05 15:39 | P.CNID_ITS ---
History of Present Illness Data of Consult Service Date: 05/05/22 Requesting physician: Ramu Morales Primary Care Provider: Faith No MD [facility] Reason for consult: left labia discomfort She has left labia pain and redness for a week. SHe has been to ER and done soaks She has swelling in area. Review of Systems Review of Systems: Yes all other systems are reviewed and are negative [facility] Past Medical History Medical History Asthma AV fistula CAD (coronary artery disease) CHF (congestive heart failure) Chronic cough Chronic low back pain without sciatica Depression Dialysis patient Dysphonia Dyspnea on exertion End stage renal disease on dialysis ESRD (end stage renal disease) ESRD needing dialysis GERD (gastroesophageal reflux disease) HLD (hyperlipidemia) HTN (hypertension) Kidney stones Normocytic anemia Obesity due to excess calories Osteoarthritis of both knees Renal failure (ARF), acute on chronic T2DM (type 2 diabetes mellitus) Thyroid disease Unstable gait Urinary frequency Family History Family History Father CVD (cardiovascular disease) Diabetes Mother Diabetes Sister Stomach cancer Family history: reviewed and not pertinent Surgical History Surgical History History of kidney surgery Hx of bone graft Hx of cholecystectomy Social History Social History Household Members: Family Housing: House Do you presently have visiting nurse or other home services: No Unable to assess alcohol history related to: Unknown Alcohol intake: never Patient Tobacco Use Status: Never used Tobacco Advance Directives Date on File: 02/15/21 service: No Current occupational status: disabled Meds Allergies Allergy/AdvReac Type Severity Reaction Status Date / Time No Known Allergies Allergy Verified 03/25/22 13:24 [No Known Allergies*] Active Medications: Current Medications Acetaminophen (Acetaminophen 325 Mg Tablet) 650 mg PO Q6H PRN PRN Reason: Pain, Mild (Pain Scale 1-3) Last Admin: 05/04/22 20:12 Dose: 650 mg Amlodipine Besylate (Amlodipine Besylate 10 Mg Tablet) 10 mg PO DAILY YURI; Protocol Last Admin: 05/05/22 09:46 Dose: Not Given Amoxicillin/Clavulanate Potassium (Amoxicillin/Potassium Clav 500 Mg Tablet) 500 mg PO BID [facility] Apixaban (Apixaban 5 Mg Tablet) 5 mg PO BID [facility] Last Admin: 05/05/22 09:45 Dose: Not Given Aspirin (Aspirin Enteric Coated 81 Mg Tablet.Dr) 81 mg PO DAILY [facility] Last Admin: 05/05/22 09:46 Dose: Not Given Atorvastatin Calcium (Atorvastatin Calcium 40 Mg Tablet) 40 mg PO DAILY [facility] Last Admin: 05/05/22 09:46 Dose: Not Given Dextrose (Dextrose 50 % 25 Gm/50 Ml Syringe) 25 gm IVPUSH Q15M PRN; Protocol PRN Reason: per Hypoglycemia Standing Ord. Gabapentin (Gabapentin 100 Mg Capsule) 200 mg PO BID [facility] Last Admin: 05/05/22 09:45 Dose: Not Given Glucose (Glucose Gel 15 Gm Gel..Gram.) 15 gm PO Q15M PRN; Protocol PRN Reason: per Hypoglycemia Standing Ord. Hydralazine HCl (Hydralazine Hcl 50 Mg Tablet) 50 mg PO TID@0900,1200,1800 [facility]; Protocol Last Admin: 05/05/22 11:05 Dose: 50 mg Insulin Glargine (Insulin Glargine,Hum.Rec.Anlog 100 Unit/Ml 10 Ml Vial) 28 unit SUBCUT DAILY [facility] Last Admin: 05/05/22 09:46 Dose: Not Given Insulin Human Lispro (Insulin Lispro 100 Unit/Ml 3 Ml Vial) 0 unit SUBCUT QIDACHS [facility]; Protocol Last Admin: 05/05/22 11:15 Dose: 12 unit Levothyroxine Sodium (Levothyroxine Sodium 25 Mcg Tablet) 25 mcg PO DAILY@0600 [facility] Last Admin: 05/05/22 09:46 Dose: Not Given Lisinopril (Lisinopril 10 Mg Tablet) 10 mg PO BEDTIME [facility]; Protocol Last Admin: 05/04/22 20:03 Dose: 10 mg Melatonin (Melatonin 3 Mg Tablet) 6 mg PO BEDTIME PRN PRN Reason: Insomnia Last Admin: 05/04/22 20:12 Dose: 6 mg Metoprolol Tartrate (Metoprolol Tartrate 50 Mg Tablet) 50 mg PO BID [facility]; Protocol Last Admin: 05/05/22 09:46 Dose: Not Given Ondansetron HCl (Ondansetron Hcl 4 Mg/2 Ml Vial) 4 mg IVPUSH Q8H PRN PRN Reason: Nausea and Vomiting Pharmacy Consult (Consult Rx Perform Med Rec) 1 each MISCELLANE ONCE PRN PRN Reason: Consult order Sevelamer Carbonate (Sevelamer Carbonate Tablet 800 Mg Tablet) 800 mg PO TIDAC [facility] Last Admin: 05/05/22 11:05 Dose: 800 mg Sitagliptin Phosphate (Sitagliptin Phosphate 25 Mg Tablet) 25 mg PO DAILY [facility] Last Admin: 05/05/22 09:47 Dose: Not Given Sodium Chloride (0.9 % Sodium Chloride Flush 3 Ml Syringe) 3 ml IVFLUSH QSHIFT [facility] Last Admin: 05/05/22 09:44 Dose: Not Given Vitamin D (Cholecalciferol (Vitamin D3) 25 Mcg Tablet) 50 mcg PO DAILY [facility] Last Admin: 05/05/22 09:46 Dose: Not Given Home Medications Medication Instructions Recorded Confirmed Last Taken Type gabapentin 100 mg capsule 200 mg PO BID neuropathic pain 02/12/21 05/02/22 06/27/21 History hydralazine 50 mg tablet 1 tab PO TID@0900,1200,1800 blood 02/12/21 05/02/22 06/27/21 History pressure levothyroxine 25 mcg tablet 1 tab PO QAM 02/12/21 05/02/22 06/27/21 History melatonin 5 mg tablet 5 mg PO BEDTIME 02/12/21 05/02/22 06/26/21 History atorvastatin 40 mg tablet 40 mg PO DAILY cholesterol 02/26/21 05/02/22 06/27/21 History sevelamer carbonate 800 mg tablet 800 mg PO TIDAC 02/26/21 05/02/22 06/27/21 History insulin lispro 100 unit/mL See Rx Instructions .Route .COMPLEX 06/27/21 05/02/22 Unknown History subcutaneous pen (Humalog KwikPen (U-100) Insulin) aspirin 81 mg tablet,delayed 1 tab PO DAILY 10/12/21 05/02/22 Unknown History release cholecalciferol (vitamin D3) 50 1 cap PO QAM 10/12/21 05/02/22 Unknown History mcg (2,000 unit) capsule blood-glucose meter,continuous 02/13/22 Unknown History (Dexcom G6 Call Center Dispatcher misc) blood-glucose sensor (Dexcom G6 02/13/22 Unknown History Sensor device) blood-glucose transmitter (Dexcom 02/13/22 Unknown History G6 Transmitter device) Physical Exam Vital Signs: Vital Signs: Last Vital Signs Temp 98 F 05/05/22 09:46 Pulse 60 05/05/22 09:46 Resp 16 05/05/22 09:46 BP 131/59 L 05/05/22 09:46 Pulse Ox 99 05/05/22 09:46 O2 Del Method 05/05/22 09:46 BMI result Body Mass Index 37.2 Const: General: cooperative HEENT: Head: Yes normal to inspection Face and sinus: Yes normal facial exam Mouth: Normal oral and palatal mucosa present Teeth and gingiva: dentition normal Eyes: General: appearance normal, both eyes and all related structures Pupils: Equal, round and reactive pupils present Resp: Effort & Inspection: normal respiratory effort Cardio: Rate: regular rate Rhythm: regular rhythm GI: Palpation (GI): Soft to palpation and nontender : Other: left labial swelling mild fungal intertriginous areas General: Yes no CVA tenderness Back/Spine/Pelvis: Back: no CVA tenderness Skin: General skin exam: no rashes or lesions noted Neuro: General: moves all extremities Cranial nerves: Yes Equal, round and reactive pupils present Extrem: General: Yes normal to inspection Psych: Appearance: grossly normal Results Labs CBC & Chem 7: 05/02/22 06:11 05/05/22 08:14 Labs: BMP 05/05/22 08:14 Sodium 132 L Potassium 2.9 L D Chloride 95 L Carbon Dioxide 25 BUN 21 H Creatinine 2.42 H Calcium 8.6 Microbiology Microbiology Results: Microbiology 05/02/22 Unknown Urine clean catch - Urine mcnair top Urine Culture - Final 05/02/22 01:15 Blood - Venous Blood Culture - Preliminary No growth after 48 hours. 05/02/22 01:15 Blood - Venous Blood Culture - Preliminary No growth after 48 hours. Assessment and Plan (1) Vulvar abscess: Status: Acute She has induration now resolving. There is some fungal irritation groin. I cannot appreciate pneumonia clinically. Plan Would continue po Augmentin for a week. Topical antifungals. Time Spent With Patient Time: Total time managing care of this patient today ____ minutes.
[2022-05-05 15:50] VITALS: BP 129/68; PULSE 64; RESP 19; TEMP 36.6; O2SAT 98
[2022-05-05 16:31] LABS: Glucose, Whole Blood 350 mg/dL (60-115)
[2022-05-05] MEDS: Potassium Chloride ER 20 MEQ TAB.ER.PRT 40 MEQ PO (16:43)
[2022-05-05] MEDS: 0.9 % Sodium Chloride Flush 3 ML SYRINGE IVFLUSH ×2 (16:44→21:16)
[2022-05-05] MEDS: Amoxicillin/Potassium Clav 500 MG TABLET PO ×2 (16:44→21:16)
[2022-05-05 19:49] LABS: Glucose, Whole Blood 332 mg/dL (60-115)
[2022-05-05 19:55] VITALS: BP 163/70; PULSE 70; RESP 19; TEMP 36.7; O2SAT 95
[2022-05-05] MEDS: lisinopriL 10 MG TABLET PO (21:15)
[2022-05-05] MEDS: Apixaban 5 MG TABLET PO (21:15)
[2022-05-05] MEDS: Metoprolol Tartrate 50 MG TABLET PO (21:16)
[2022-05-05] MEDS: Acetaminophen 325 MG TABLET 650 MG PO (21:23)
[2022-05-06 04:00] VITALS: BP 132/59; PULSE 74; RESP 17; TEMP 36.4; O2SAT 96
[2022-05-06] MEDS: Levothyroxine Sodium 25 MCG TABLET PO (05:50)
[2022-05-06 06:38] LABS: Anion Gap 20 (12-20); Blood Urea Nitrogen 62 mg/dL (9-16); Calcium 8.8 mg/dL (8.4-10.2); Carbon Dioxide 19 mmol/L (22-29); Chloride 99 mmol/L (96-108); Creatinine Clr Calc Pharmacy 11.1; Estimated Glomerular Filt Rate 7; Glucose Random 385 mg/dL (60-115); Potassium 6.2 mmol/L (3.3-5.1); Sodium 132 mmol/L (135-145)
[2022-05-06 07:10] VITALS: BP 152/66; PULSE 73; RESP 18; TEMP 36.3; O2SAT 95
[2022-05-06 07:20] LABS: Glucose, Whole Blood 380 mg/dL (60-115)
[2022-05-06] MEDS: Metoprolol Tartrate 50 MG TABLET PO (08:19)
[2022-05-06] MEDS: Sevelamer Carbonate Tablet 800 MG TABLET PO ×3 (08:19→16:42)
[2022-05-06] MEDS: Acetaminophen 325 MG TABLET 650 MG PO (08:19)
[2022-05-06] MEDS: amLODIPine Besylate 10 MG TABLET PO (08:19)
[2022-05-06] MEDS: hydrALAZINE HCl 50 MG TABLET PO ×3 (08:19→16:42)
[2022-05-06] MEDS: Atorvastatin Calcium 40 MG TABLET PO (08:19)
[2022-05-06] MEDS: 0.9 % Sodium Chloride Flush 3 ML SYRINGE IVFLUSH (08:20)
[2022-05-06] MEDS: Cholecalciferol (Vitamin D3) 25 MCG TABLET 50 MCG PO (08:20)
[2022-05-06] MEDS: Aspirin Enteric Coated 81 MG TABLET.DR PO (08:20)
[2022-05-06] MEDS: Amoxicillin/Potassium Clav 500 MG TABLET PO (08:20)
[2022-05-06] MEDS: Insulin Lispro 100 UNIT/ML 3 ML VIAL SUBCUT ×3 (08:20→16:42)
[2022-05-06] MEDS: SITagliptin Phosphate 25 MG TABLET PO (08:20)
[2022-05-06] MEDS: Apixaban 5 MG TABLET PO (08:20)
[2022-05-06] MEDS: Insulin Glargine,Hum.rec.anlog 100 UNIT/ML 10 ML VIAL 28 UNIT SUBCUT (08:20)
[2022-05-06] MEDS: Sodium Zirconium Cyclosilicate 10 GM POWD.PACK PO (09:01)
--- NOTE | 2022-05-06 10:51 | PM.PNNEP ---
Subjective Subjective Date of Service: 05/06/22 Interval history: Seen and examined, events noted Physical Exam Vital Signs: Vital Signs: Last Vital Signs Temp 97.3 F 05/06/22 07:10 Pulse 73 05/06/22 07:10 Resp 18 05/06/22 07:10 BP 152/66 H 05/06/22 07:10 Pulse Ox 95 05/06/22 07:10 O2 Del Method 05/06/22 07:10 BMI result Body Mass Index 37.2 Const: General: comfortable, no acute distress and alert Orientation/consciousness: patient oriented x3 Resp: Effort & Inspection: normal respiratory effort : Other: left labia majora with significant induration extending superiorly and inferiorly beyond site of I&D with packing in place, no palpable fluid collection or erythema noted, area very tender Neuro: General: patient oriented x3 Extrem: Other: AV fistula left upper arm Objective Data Labs CBC & Chem 7: 05/02/22 06:11 05/06/22 05:37 Labs: Laboratory Results - last 24 hr 05/05/22 05/05/22 05/05/22 10:14 11:07 16:02 Sodium Potassium Chloride Carbon Dioxide Anion Gap BUN Creatinine Estim Creat Clear Calc Estimated GFR POC Glucose 275 H 350 H* Random Glucose Calcium Random Vancomycin 13.3 L 05/05/22 05/06/22 05/06/22 19:42 05:37 07:13 Sodium 132 L Potassium 6.2 H* D Chloride 99 Carbon Dioxide 19 L Anion Gap 20 BUN 62 H Creatinine 6.24 H* Estim Creat Clear Calc 11.1 Estimated GFR 7 POC Glucose 332 H 380 H* Random Glucose 385 H* Calcium 8.8 Random Vancomycin Microbiology Microbiology Results: Microbiology 05/02/22 Unknown Urine clean catch - Urine mcnair top Urine Culture - Final 05/02/22 01:15 Blood - Venous Blood Culture - Preliminary No growth after 48 hours. 05/02/22 01:15 Blood - Venous Blood Culture - Preliminary No growth after 48 hours. 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 Progress Note: Quality Stroke Does the patient have a stroke diagnosis?: No
[2022-05-06 11:11] LABS: Glucose, Whole Blood 385 mg/dL (60-115)
[2022-05-06 11:34] LABS: Anion Gap 21 (12-20); Carbon Dioxide 19 mmol/L (22-29); Chloride 98 mmol/L (96-108); Potassium 5.4 mmol/L (3.3-5.1); Sodium 133 mmol/L (135-145)
--- NOTE | 2022-05-06 12:52 | PC.NURSE ---
Patient reported vaginal itching and this RN noted a fungal rash to the groin. Dr. Morales made aware. Onetime diflucan ordered and nystatin powder ordered. awaiting pharmacy to bring up medications.
[2022-05-06 13:51] LABS: Anion Gap 21 (12-20); Blood Urea Nitrogen 68 mg/dL (9-16); Carbon Dioxide 19 mmol/L (22-29); Chloride 98 mmol/L (96-108); Creatinine Clr Calc Pharmacy 10.5; Estimated Glomerular Filt Rate 7; Glucose Random 287 mg/dL (60-115); Potassium 5.4 mmol/L (3.3-5.1); Sodium 133 mmol/L (135-145)
[2022-05-06] MEDS: Nystatin Powder 15 GM BOTTLE 1 APPL TOPICAL (14:16)
[2022-05-06] MEDS: Fluconazole 150 MG TABLET PO (14:17)
[2022-05-06 15:06] VITALS: BP 144/62; PULSE 78; RESP 18; TEMP 37.1; O2SAT 98
--- NOTE | 2022-05-06 15:27 | PM.DS ---
DS: Providers Provider Date of Service: 05/06/22 Date of admission: 05/02/22 00:39 Primary care physician: Faith No MD Consults: 05/02/22 01:06 Consult to General Surgery Routine Consulting Provider: Fede Mackay Reason for consultation: labial abscess Consult to Nephrology Routine Consulting Provider: Carlos Garcia Reason for consultation: ESRD on dialysis 05/03/22 08:36 Consult to Infectious Diseases Routine Consulting Provider: Isela Sunshine Reason for consultation: vulvar cellultiis DS: Diagnosis Discharge Diagnosis (1) 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: Status: Acute (2) AMARJIT (obstructive sleep apnea): Status: Acute (3) ESRD (end stage renal disease): Status: Acute (4) Vulvar abscess: Status: Acute DS: Summary Hospital Course Hospital Course: History of presenting illness Date of Service: 05/02/22 Chief Complaint: Labial swelling This is a 57-year-old female with pertinent history of atrial fibrillation on Eliquis, insulin-dependent diabetes mellitus, gastroesophageal reflux disease, essential hypertension, hypothyroidism, mixed hyperlipidemia presents to the emergency department for evaluation of labial swelling.? Patient states she noticed swelling 3 days prior to presentation.? It has been progressive and associated with pain.? No purulent discharge.? Patient has had about 5 I&D of labial cysts/abscesses in the past.? Patient denies fever, chills, nausea, vomiting, chest discomfort, palpitations, shortness of breath, abdominal pain, changes in urinary bowel habits.? Patient states she was diagnosed with pneumonia about 4-6 weeks ago and completed antibiotic course.? Her symptoms of pneumonia have now resolved.? Patient undergoes dialysis Thursday/Thursday/Thursday and her last dialysis session was 04/30. Hospital course 57yo? with AF on apixaban, DM2, GERD, HTN, hypothyroidism, HLD, ERSD on HD, recent PNA, admitted for 3d of labial swelling; has hx of recurrent labial cysts/abscess, underwent I+D in ER with no drainage; wound packed # vulvar cellulitis with phlegmon [no abscess] admitted to medical floor, treated with IV vancomycin in's Zosyn blood cultures came back negative patient remained afebrile with normal WBC count patient was followed closely by General surgery they recommend outpatient follow-up in 2 weeks time patient is now being discharged home on by mouth doxycycline for total 5 days # DM2 with hyperglycemia recommend to continue home medication and diabetic diet # ESRD on HD with hyperkalemia patient has been recommended to follow hemodialysis Thursday and Thursday and follow low-potassium diet continue sevelamer # chronic normocytic anemia related to kidney disease # CAD continue- aspirin, metoprolol and statins, no complain of chest pain # paroxysmal AF continue apixaban and metoprolol # HTN stable blood pressure continue amlodipine, lisinopril, metoprolol, hydralazine # hypothyroidism continue Synthroid Time Spent with Patient Time attestation: Total time managing care of this patient today ____ minutes. Discharge coordination time: Greater than 30 minutes Quality: Safe Use of Opioids Does Pt have an Active Cancer Diagnosis on the Problem List?: No Quality: Stroke Does the patient have a stroke diagnosis?: No Physical Exam Vital Signs: Vital Signs: Last Vital Signs Temp 98.7 F 05/06/22 15:06 Pulse 78 05/06/22 15:06 Resp 18 05/06/22 15:06 BP 144/62 H 05/06/22 15:06 Pulse Ox 98 05/06/22 15:06 O2 Del Method 05/06/22 15:06 BMI result Body Mass Index 37.2 Const: Other: Gen:? Awake alert x3, in no acute distress HEENT: sclera anicteric, moist mucus membranes Neck: supple Lungs: clear to auscultation bilaterally Heart: regular rate and rhythm, no murmurs Abd: soft, non-tender, non-distended Ext: no edema Skin: warm/well-perfused; left labia majora with induration around site of I+D no drainage,no tenderness to palpation, no fluid collection Neuro: alert and oriented x3, no focal findings Psych: appropriate affect DS: Data Data Completed and Pending Completed studies during hospitalization [Text1]: Procedures Drainage of Inguinal Skin, External Approach (10/12/21) Performance of Urinary Filtration, Intermittent, Less than 6 Hours Per Day (10/12/21) Labs on day of discharge: Laboratory Results - last 24 hr 05/05/22 05/05/22 05/06/22 16:02 19:42 05:37 Sodium 132 L Potassium 6.2 H* D Chloride 99 Carbon Dioxide 19 L Anion Gap 20 BUN 62 H Creatinine 6.24 H* Estim Creat Clear Calc 11.1 Estimated GFR 7 POC Glucose 350 H* 332 H Random Glucose 385 H* Calcium 8.8 05/06/22 05/06/22 05/06/22 07:13 11:06 11:09 Sodium 133 L Potassium 5.4 H Chloride 98 Carbon Dioxide 19 L Anion Gap 21 H BUN Creatinine Estim Creat Clear Calc Estimated GFR POC Glucose 380 H* 385 H* Random Glucose Calcium 05/06/22 12:55 Sodium 133 L Potassium 5.4 H Chloride 98 Carbon Dioxide 19 L Anion Gap 21 H BUN 68 H Creatinine 6.54 H* Estim Creat Clear Calc 10.5 Estimated GFR 7 POC Glucose Random Glucose 287 H Calcium 9.0 Preliminary micro results at discharge 05/02/22 01:15 Blood Culture - Preliminary Blood - Venous No growth after 48 hours. 05/02/22 01:15 Blood Culture - Preliminary Blood - Venous No growth after 48 hours. Discharge Plan Discharge Anticipated Discharge Date/Time: 05/06/22 15:12 Patient Disposition: Home, Self-Care Discharge Diagnosis: Vulvar cellulitis with phlegmon hyperkalemia Referrals: Faith Mason MD [Primary Care Provider] - 1 Week Discharge Medications: New doxycycline hyclate 100 mg capsule 100 mg PO BID Qty: 10 0RF Continued (DME) blood-glucose meter [FreeStyle Lite Meter] Kit See Rx Instructions .ROUTE .MEDSUPPLY Qty: 1 0RF Rx Instructions: As directed (DME) FreeStyle Lite Strips Strip See Rx Instructions .ROUTE .MEDSUPPLY Qty: 100 11RF Rx Instructions: As directed four times a day (DME) lancets [FreeStyle Lancets] 28 gauge misc See Rx Instructions .ROUTE .MEDSUPPLY Qty: 100 11RF Rx Instructions: As directed four times a day amlodipine 10 mg tablet 10 mg PO QAM 90 Days Qty: 90 3RF Eliquis 5 mg tablet 5 mg PO BID 90 Days Qty: 180 3RF lisinopril 10 mg tablet 10 mg PO BEDTIME 90 Days Qty: 90 3RF Januvia 25 mg tablet 25 mg PO QAM Qty: 30 6RF levothyroxine 25 mcg tablet 1 tab PO QAM hydralazine 50 mg tablet 1 tab PO TID@0900,1200,1800 gabapentin 100 mg capsule 200 mg PO BID melatonin 5 mg tablet 5 mg PO BEDTIME atorvastatin 40 mg tablet 40 mg PO DAILY sevelamer carbonate 800 mg tablet 800 mg PO TIDAC aspirin 81 mg tablet,delayed release (DR/EC) 1 tab PO DAILY cholecalciferol (vitamin D3) 50 mcg (2,000 unit) capsule 1 cap PO QAM insulin lispro [Humalog KwikPen Insulin] 100 unit/mL insulin pen See Rx Instructions .ROUTE .COMPLEX Rx Instructions: SLIDING SCALE metoprolol tartrate 50 mg tablet 50 mg PO Q12H Qty: 60 0RF (DME) pen needle, diabetic [BD Ultra-Fine Micro Pen Needle] 32 gauge x 1/4 needle See Rx Instructions .ROUTE .MEDSUPPLY Qty: 150 11RF Rx Instructions: As directed 4 times a day (DME) Dexcom G6 Yard Brakeman Misc See Rx Instructions .ROUTE Rx Instructions: As directed (DME) Dexcom G6 Sensor Device See Rx Instructions .ROUTE Rx Instructions: As directed (DME) Dexcom G6 Transmitter Device See Rx Instructions .ROUTE Rx Instructions: As directed Toujeo Max U-300 SoloStar 300 unit/mL (3 mL) insulin pen 28 unit subcut DAILY 30 Days Qty: 6 6RF Discharge Orders: Discharge Order (Routine); Ordered 05/06/22 Ordered By: Ramu Morales Diet: low potassium diet Activity on Discharge: As tolerated Stand Alone Forms: Patient Portal Discharge page Care Plan Goals: Continue hemodialysis Thursday follow a low-potassium diet Take doxycycline 100 mg 1 tablet twice daily for total 5 days Take all home medications as before Health Concerns: Take all home medications Plan of Treatment: Outpatient follow-up with Dr. Mackay call for an appointment in 2 weeks Follow-up with primary care physician Assessment: As above Discharge Date/Time: 05/06/22 17:51
[2022-05-06 15:35] LABS: Glucose, Whole Blood 214 mg/dL (60-115)
--- NOTE | 2022-05-06 16:06 | MHC.CM.PN ---
HOME - SELF CARE
[2022-05-06] MEDS: Sodium Zirconium Cyclosilicate 5 GM POWD.PACK PO (16:42)
== END 2022-05-06 17:51 | disposition home or self-care (01) | DRG 518 ==
LOC: HO.ED 05-02 01:09 → HO.EDOVER 05-02 01:15 → HO.S3 05-05 09:13
PROVIDERS: Family Medicine; Internal Medicine Nephrology; Nurse Practitioner Family; Admitting Provider Student in an Organized Health Care Education/Training Program; Emergency Provider Internal Medicine; PCP Internal Medicine; Visit Provider Hospitalist
DX: N76.2 Acute vulvitis (principal); I12.0 Hypertensive chronic kidney disease with stage 5 chronic kidney disease or end stage renal disease; E11.22 Type 2 diabetes mellitus with diabetic chronic kidney disease; D64.9 Anemia, unspecified; E03.9 Hypothyroidism, unspecified; E11.65 Type 2 diabetes mellitus with hyperglycemia; N18.6 End stage renal disease; Z99.2 Dependence on renal dialysis; I25.10 Atherosclerotic heart disease of native coronary artery without angina pectoris; G89.29 Other chronic pain; G47.33 Obstructive sleep apnea (adult) (pediatric); E78.2 Mixed hyperlipidemia; M54.50 Low back pain, unspecified; I48.0 Paroxysmal atrial fibrillation; K21.9 Gastro-esophageal reflux disease without esophagitis; E66.9 Obesity, unspecified; Z68.37 Body mass index [BMI] 37.0-37.9, adult; Z20.822 Contact with and (suspected) exposure to COVID-19; Z79.4 Long term (current) use of insulin; Z79.01 Long term (current) use of anticoagulants; Z79.82 Long term (current) use of aspirin; Z79.890 Hormone replacement therapy; Z79.899 Other long term (current) drug therapy
CPT/HCPCS: 36415; 71250; 74176; 80048; 80051; 80202; 81001; 82947; 83605; 85025; 86140; 87040; 87086; 87635; 90935; 90999; 99285; J2270; J2543; J3370

== ENCOUNTER → 2022-07-08 14:40 | Outpatient (BNVA) | payer MEDICAID, SELFPAY | PROVIDERS: PCP Internal Medicine; Visit Provider Surgery | DX: L73.9 Follicular disorder, unspecified (principal) | CPT/HCPCS: 99202 ==

== ENCOUNTER 2022-07-29 13:54 | Emergency (ER) | payer MEDICAID, SELFPAY ==
--- NOTE | ~2022-07-29 | XR_ITS ---
EXAMINATION: CR X-RAY SHOULDER AND HUMERUS LEFT CLINICAL INFORMATION: Left shoulder pain status post fall. COMPARISON: None TECHNIQUE: 4 views of the left shoulder and 2 views of the left humerus were obtained. FINDINGS: The joint spaces are unremarkable. There is no acute fracture or dislocation. The patient is status post humeral ORIF showing good anatomic alignment and no evidence for hardware malfunction. A vascular stent overlies the mid upper arm without abnormality. Surgical clips overlie the anterior soft tissues. XR/XR humerus LT IMPRESSION: 1. No acute left shoulder or left humerus abnormality. 2. No hardware abnormality.
--- NOTE | ~2022-07-29 | XR_ITS ---
EXAMINATION: CR X-RAY SHOULDER AND HUMERUS LEFT CLINICAL INFORMATION: Left shoulder pain status post fall. COMPARISON: None TECHNIQUE: 4 views of the left shoulder and 2 views of the left humerus were obtained. FINDINGS: The joint spaces are unremarkable. There is no acute fracture or dislocation. The patient is status post humeral ORIF showing good anatomic alignment and no evidence for hardware malfunction. A vascular stent overlies the mid upper arm without abnormality. Surgical clips overlie the anterior soft tissues. XR/XR shoulder LT min 2V IMPRESSION: 1. No acute left shoulder or left humerus abnormality. 2. No hardware abnormality.
--- NOTE | 2022-07-29 14:01 | ED.SKABFB ---
HPI - Skin/Abscess/Foreign Bdy General Chief complaint: General Medical <Erica Miller CNP - Last Filed: 07/29/22 14:09> Stated complaint: Abscess on breast <Erica Miller CNP - Last Filed: 07/29/22 14:09> Time Seen by Provider: 07/29/22 18:01 <Erica Miller CNP - Last Filed: 07/29/22 14:09> Source: patient <Elsy Ghosh MD - Last Filed: 07/29/22 23:43> Mode of arrival: ambulatory <Elsy Ghosh MD - Last Filed: 07/29/22 23:43> Limitations: no limitations <Elsy Ghosh MD - Last Filed: 07/29/22 23:43> History of Present Illness HPI narrative: Patient comes emergency room complaining of an abscess on the lateral aspect of the left breast. Also complaining of left shoulder pain. Patient states that she recently returned from [place], patient had a fall a few days ago, patient complaining of shoulder pain. Also, patient complaining of an abscess on the left breast. Patient states this is the 7th time that she has an abscess. In triage, it was noticed that the patient's glucose is elevated. Patient is known to be diabetic, states she is compliant with her diabetic medications. Patient denies fever chills, no chest pain or shortness of breath <Elsy Ghosh MD - Last Filed: 07/29/22 23:43> Related Data Home medications: Home Medications Medication Instructions Recorded Confirmed gabapentin 100 mg capsule 200 mg PO BID neuropathic pain 02/12/21 05/02/22 hydralazine 50 mg tablet 1 tab PO TID@0900,1200,1800 blood 02/12/21 05/02/22 pressure levothyroxine 25 mcg tablet 1 tab PO QAM 02/12/21 05/02/22 melatonin 5 mg tablet 5 mg PO BEDTIME 02/12/21 05/02/22 atorvastatin 40 mg tablet 40 mg PO DAILY cholesterol 02/26/21 05/02/22 sevelamer carbonate 800 mg tablet 800 mg PO TIDAC 02/26/21 05/02/22 aspirin 81 mg tablet,delayed 1 tab PO DAILY 10/12/21 05/02/22 release cholecalciferol (vitamin D3) 50 1 cap PO QAM 10/12/21 05/02/22 mcg (2,000 unit) capsule blood-glucose meter,continuous 02/13/22 (Dexcom G6 Creative 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) blood-glucose sensor (Dexcom G6 02/13/22 Sensor device) blood-glucose transmitter (Dexcom 02/13/22 G6 Transmitter device) Previous Rx's Medication Instructions Recorded blood-glucose meter (FreeStyle #1 ea 04/24/21 Lite Meter kit) metoprolol tartrate 50 mg tablet 50 mg PO Q12H #60 tabs 06/28/21 amlodipine 10 mg tablet 10 mg PO QAM blood pressure 90 08/02/21 days #90 tabs apixaban 5 mg tablet (Eliquis) 5 mg PO BID 90 days #180 tabs 08/02/21 lisinopril 10 mg tablet 10 mg PO BEDTIME blood pressure 90 08/02/21 days #90 tabs insulin glargine U-300 conc 300 28 unit (0.0933 mL) subcut DAILY 09/12/21 unit/mL (3 mL) subcutaneous pen 30 days #6 mL (Toujeo Max U-300 SoloStar) doxycycline hyclate 100 mg capsule 100 mg PO BID #10 caps 05/06/22 sitagliptin phosphate 25 mg tablet 25 mg PO QAM #30 tabs 05/29/22 (Januvia) blood sugar diagnostic (FreeStyle #100 ea 06/04/22 Lite Strips) lancets 33 gauge (TRUEplus Lancets) ##100 06/05/22 insulin lispro 100 unit/mL See Rx Instructions .Route TID #15 07/02/22 subcutaneous pen (Humalog KwikPen mL (U-100) Insulin) pen needle, diabetic 32 gauge x #150 ea 07/02/2205/28 (BD Ultra-Fine Micro Pen Needle) chlorhexidine gluconate 4 % 1 appl topical .COMPLEX 2 doses 07/08/22 topical liquid (Hibiclens) #473 mL cephalexin 500 mg capsule 500 mg PO BID #20 caps 07/29/22 doxycycline hyclate 100 mg capsule 100 mg PO BID #20 caps 07/29/22 tramadol 50 mg tablet 50 mg PO BID PRN pain #7 tabs 07/29/22 <Erica Miller, DIRECTOR OF CRITICAL CARE - Last Filed: 07/29/22 14:09> Allergies/Adverse reactions: Allergies Allergy/AdvReac Type Severity Reaction Status Date / Time No Known Allergies Allergy Verified 07/08/22 14:57 [No Known Allergies*] <Erica Miller CNP - Last Filed: 07/29/22 14:09> Review of Systems Review of Systems: Constitutional : No Weight loss, No Fever, No Chills, No Night Sweats, No Fatigue, No Malaise ENT/Mouth : No Hearing loss, No Ear Pain, No Nasal Congestion, No Sinus Pain, No Hoarseness, No sore throat, No Rhinorrhea, No Swallowing Difficulty Eyes: No Eye Pain, No Swelling, No Redness, No Foreign Body, No Discharge, No Vision Changes Cardiovascular : No Chest Pain, No SOB, No Dyspnea on Exertion, No Orthopnea, No Edema, No Palpitations Respiratory : No Cough, No Sputum, No Wheezing, No Smoke Exposure, No Dyspnea Gastrointestinal : No Nausea, No Vomiting, No Diarrhea, No Constipation, No abdominal Pain, No Hematochezia, No Melena Genitourinary : no irregular bleeding, No Dysuria, No Urinary Frequency, No Hematuria, No Urinary Incontinence, No Urgency, No Flank Pain, No Urinary Flow Changes, No Hesitancy Musculoskeletal : Complaining of left shoulder pain No Myalgias, No Joint Swelling Skin : Complaining of an abscess on the left breast Neuro : No Weakness, No Numbness, No Paresthesias, No Loss of Consciousness, No Dizziness, No Headache Psych : No Anxiety/Panic, No Depression, No SI/HI/AH/VH, No Social Issues, Heme/Lymph: No Bruising, No Bleeding,No Lymphadenopathy Endocrine : No Polyuria, No Polydipsia, No Temperature Intolerance <Elsy Ghosh MD - Last Filed: 07/29/22 23:43> [facility] Past Medical History Medical History: Medical History Asthma AV fistula CAD (coronary artery disease) CHF (congestive heart failure) Chronic cough Chronic low back pain without sciatica Depression Dialysis patient Dysphonia Dyspnea on exertion End stage renal disease on dialysis ESRD (end stage renal disease) ESRD needing dialysis GERD (gastroesophageal reflux disease) HLD (hyperlipidemia) HTN (hypertension) Kidney stones Normocytic anemia Obesity due to excess calories AMARJIT (obstructive sleep apnea) Osteoarthritis of both knees Paroxysmal atrial flutter Pneumonia Renal failure (ARF), acute on chronic T2DM (type 2 diabetes mellitus) Thyroid disease 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 Type 2 diabetes mellitus with hyperglycemia Unstable gait Urinary frequency <Erica Miller CNP - Last Filed: 07/29/22 14:09> Surgical History: Surgical History History of kidney surgery Hx of bone graft Hx of cholecystectomy <Erica Miller CNP - Last Filed: 07/29/22 14:09> Family History Family History: Family History Father CVD (cardiovascular disease) Diabetes Mother Diabetes Sister Stomach cancer <Erica Miller CNP - Last Filed: 07/29/22 14:09> Social History Social History: Social History Household Members: Family Housing: House Do you presently have visiting nurse or other home services: No Unable to assess alcohol history related to: Unknown Alcohol intake: never Patient Tobacco Use Status: Never used Tobacco Advance Directives: Yes Advance Directives on File: Yes Advance Directives Date on File: 02/15/21 service: No Current occupational status: disabled <Erica Miller CNP - Last Filed: 07/29/22 14:09> Physical Exam Vital Signs: Vital Signs: Last Vital Signs Temp 97.9 F 07/29/22 21:48 Pulse 61 07/29/22 21:48 Resp 16 07/29/22 21:48 BP 164/63 H 07/29/22 21:48 Pulse Ox 98 07/29/22 21:48 O2 Del Method 07/29/22 21:48 BMI result Body Mass Index 37.2 <Erica Miller CNP - Last Filed: 07/29/22 14:09> Vital Signs: Last Vital Signs Temp 97.9 F 07/29/22 21:48 Pulse 61 07/29/22 21:48 Resp 16 07/29/22 21:48 BP 164/63 H 07/29/22 21:48 Pulse Ox 98 07/29/22 21:48 O2 Del Method 07/29/22 21:48 BMI result Body Mass Index 37.2 <Elsy Ghosh MD - Last Filed: 07/29/22 23:43> Const: Other: Appearance: Alert. Oriented X3. No acute distress. Eyes: Pupils equal, round and reactive to light. ENT: Pharynx normal. Neck: Normal inspection. Neck supple. No lymph nodes noted. No crepitus CVS: Normal heart rate and rhythm. Pulses normal. Normal S1 and S2 Respiratory: No respiratory distress. Breath sounds normal. No Wheezing. No rales Abdomen: Soft and nontender. No rigidity. No distention. Skin: Skin warm and dry. There is a 3 cm x 3 cm erythematous bulging abscess from the lateral aspect of the left breast. Extremities: No lower extremity edema. No Lacerations. No Rash. Patient has full range of motion in the shoulders. Neuro: Oriented X 3. No motor deficit. No sensory deficit. Moving all extremities. No slurred speech. CN 2 through 12 grossly intact Psych: calm, cooperative, normal affect <Elsy Ghosh MD - Last Filed: 07/29/22 23:43> Course Course Course Narrative: This is an RME: Additional HPI, ROS, PE not included below will be deferred to primary provider. Patient is a 57-year-old female who presents emergency department for evaluation of a breast abscess. Reports a fall this past week landing on the left side/ shoulder. Reports pain radiating down to the left hand. She has also developed a cyst to the left lateral breast. Reports tactile fevers, chills. She has been here in the past for abscesses similar, usually requiring I&D. Also family member reports that patient's blood glucose readings have been high on monitor since yesterday, patient reports compliance with insulin. Plan: XR shoulder/ humerus, labs <Erica Miller CNP - Last Filed: 07/29/22 14:09> This is an RME: Additional HPI, ROS, PE not included below will be deferred to primary provider. Patient is a 57-year-old female who presents emergency department for evaluation of a breast abscess. Reports a fall this past week landing on the left side/ shoulder. Reports pain radiating down to the left hand. She has also developed a cyst to the left lateral breast. Reports tactile fevers, chills. She has been here in the past for abscesses similar, usually requiring I&D. Also family member reports that patient's blood glucose readings have been high on monitor since yesterday, patient reports compliance with insulin. Plan: XR shoulder/ humerus, labs <Elsy Ghosh MD - Last Filed: 07/29/22 23:43> Medications Administered Discontinued Medications Generic Name Dose Route Start Last Admin Trade Name Freq PRN Reason Stop Dose Admin Acetaminophen 975 mg 07/29/22 16:42 07/29/22 16:47 Acetaminophen 325 Mg Tablet PO 07/29/22 16:43 975 mg ONCE ONE Administration Cephalexin HCl 500 mg 07/29/22 19:49 07/29/22 20:02 Cephalexin 500 Mg Capsule PO 07/29/22 19:50 500 mg ONCE ONE Administration Doxycycline Monohydrate 100 mg 07/29/22 19:49 07/29/22 20:02 Doxycycline Monohydrate 100 Mg Capsule PO 07/29/22 19:50 100 mg ONCE ONE Administration Insulin Human Lispro 10 unit 07/29/22 20:40 07/29/22 21:06 Insulin Lispro 100 Unit/Ml 3 Ml Vial SUBCUT 07/29/22 20:41 10 unit ONCE ONE Administration Insulin Human Lispro 10 unit 07/29/22 22:29 07/29/22 22:49 Insulin Lispro 100 Unit/Ml 3 Ml Vial SUBCUT 07/29/22 22:30 10 unit ONCE ONE Administration Insulin Human Regular 10 unit 07/29/22 18:55 07/29/22 22:52 Insulin Regular, Human 100 Unit/Ml 3 Ml Vial IVPUSH 07/29/22 18:56 Not Given ONCE ONE Oxycodone HCl 5 mg 07/29/22 22:29 07/29/22 22:43 Oxycodone Hcl Immed Release 5 Mg Tablet PO 07/29/22 22:30 5 mg ONCE ONE Administration Tramadol HCl 50 mg 07/29/22 19:49 07/29/22 20:02 Tramadol Hcl 50 Mg Tablet PO 07/29/22 19:50 50 mg ONCE ONE Administration <Erica Miller CNP - Last Filed: 07/29/22 14:09> Medications Administered Discontinued Medications Generic Name Dose Route Start Last Admin Trade Name Freq PRN Reason Stop Dose Admin Acetaminophen 975 mg 07/29/22 16:42 07/29/22 16:47 Acetaminophen 325 Mg Tablet PO 07/29/22 16:43 975 mg ONCE ONE Administration Cephalexin HCl 500 mg 07/29/22 19:49 07/29/22 20:02 Cephalexin 500 Mg Capsule PO 07/29/22 19:50 500 mg ONCE ONE Administration Doxycycline Monohydrate 100 mg 07/29/22 19:49 07/29/22 20:02 Doxycycline Monohydrate 100 Mg Capsule PO 07/29/22 19:50 100 mg ONCE ONE Administration Insulin Human Lispro 10 unit 07/29/22 20:40 07/29/22 21:06 Insulin Lispro 100 Unit/Ml 3 Ml Vial SUBCUT 07/29/22 20:41 10 unit ONCE ONE Administration Insulin Human Lispro 10 unit 07/29/22 22:29 07/29/22 22:49 Insulin Lispro 100 Unit/Ml 3 Ml Vial SUBCUT 07/29/22 22:30 10 unit ONCE ONE Administration Insulin Human Regular 10 unit 07/29/22 18:55 07/29/22 22:52 Insulin Regular, Human 100 Unit/Ml 3 Ml Vial IVPUSH 07/29/22 18:56 Not Given ONCE ONE Oxycodone HCl 5 mg 07/29/22 22:29 07/29/22 22:43 Oxycodone Hcl Immed Release 5 Mg Tablet PO 07/29/22 22:30 5 mg ONCE ONE Administration Tramadol HCl 50 mg 07/29/22 19:49 07/29/22 20:02 Tramadol Hcl 50 Mg Tablet PO 07/29/22 19:50 50 mg ONCE ONE Administration <Elsy Ghosh MD - Last Filed: 07/29/22 23:43> Medical Decision Making Medical Decision Making MDM Narrative: -patient's left shoulder x-ray and humerus x-ray are negative, no fracture. Patient likely has a contusion -abscess was drained successfully. Packing in place. Patient instructed to follow-up in 24-48 hours either in the emergency room or primary care physician for packing and wound check. -patient received 10 units of subcutaneous insulin. -patient's creatinine at baseline. Patient has dialysis tomorrow. -patient refused IV fluids, patient states she is a hard stick but accepted to get subcutaneous insulin. Patient had a total of 30 units of subQ insulin. By discharge, patient's glucose was 277. <Elsy Ghosh MD - Last Filed: 07/29/22 23:43> Lab Data MDM Lab Attestation statement: I reviewed the patient's lab results. <Elsy Ghosh MD - Last Filed: 07/29/22 23:43> Result Diagrams: 07/29/22 15:03 07/29/22 15:03 <Erica Miller CNP - Last Filed: 07/29/22 14:09> Labs: Lab Results 07/29/22 07/29/22 07/29/22 Range/Units 14:29 15:03 15:03 WBC (4.8-10.8) X10*3/uL RBC (4.20-5.50) X10*6/uL Hgb (12.0-16.0) g/dl Hct (37.0-47.0) % MCV (80.0-98.0) fL MCH (27.0-33.0) pg MCHC (31.0-35.0) g/dl RDW (11.0-16.0) % Plt Count (160-400) X10*3/uL MPV (9.4-12.3) fL Immature Gran % (Auto) (0.0-0.4) % Neut % (Auto) (45-73) % Lymph % (Auto) (20-40) % Sterling % (Auto) (2-11) % Eos % (Auto) (0-4) % Baso % (Auto) (0-2) % Lymph # (Auto) (1.2-4.9) X10*3/uL Sterling # (Auto) (0.1-1.2) X10*3/uL Eos # (Auto) (0.0-0.4) X10*3/uL Baso # (Auto) (0.0-0.2) X10*3/uL Abs Immat Gran (auto) (0.00-0.03) X10*3/uL Absolute Neuts (auto) (2.0-8.3) x10*3/uL Absolute Nucleated RBC (0.0-0.012) X10*3/uL Nucleated RBC % (auto) (0.0-0.2) /100WBC Sodium 135 (135-145) mmol/L Potassium 4.7 (3.3-5.1) mmol/L Chloride 96 (96-108) mmol/L Carbon Dioxide 26 (22-29) mmol/L Anion Gap 18 (12-20) BUN 49 H (9-16) mg/dL Creatinine 6.29 H* (0.5-1.4) mg/dL Estim Creat Clear Calc 10.9 Estimated GFR 7 POC Glucose 369 H* (60-115) mg/dL Random Glucose 389 H* (60-115) mg/dL Lactic Acid 1.4 (0.5-2.0) mmol/L Calcium 8.9 (8.4-10.2) mg/dL Total Bilirubin 0.7 (0.0-1.0) mg/dL AST 16 (5-31) U/L ALT 31 (0-31) U/L Alkaline Phosphatase 158 H (39-117) U/L Total Protein 7.2 (6.5-8.0) g/dL Albumin 3.8 (3.5-5.0) g/dL Lipase 7 L (8-78) U/L Acetone, Qual Negative (Negative) 07/29/22 07/29/22 07/29/22 Range/Units 15:03 20:16 21:45 WBC 7.3 (4.8-10.8) X10*3/uL RBC 3.53 L D (4.20-5.50) X10*6/uL Hgb 10.7 L D (12.0-16.0) g/dl Hct 32.8 L D (37.0-47.0) % MCV 92.9 (80.0-98.0) fL MCH 30.3 (27.0-33.0) pg MCHC 32.6 (31.0-35.0) g/dl RDW 14.8 (11.0-16.0) % Plt Count 236 (160-400) X10*3/uL MPV 11.6 (9.4-12.3) fL Immature Gran % (Auto) 1.0 H (0.0-0.4) % Neut % (Auto) 68.5 (45-73) % Lymph % (Auto) 17.1 L (20-40) % Sterling % (Auto) 7.0 (2-11) % Eos % (Auto) 5.9 H (0-4) % Baso % (Auto) 0.5 (0-2) % Lymph # (Auto) 1.3 (1.2-4.9) X10*3/uL Sterling # (Auto) 0.5 (0.1-1.2) X10*3/uL Eos # (Auto) 0.4 (0.0-0.4) X10*3/uL Baso # (Auto) 0.0 (0.0-0.2) X10*3/uL Abs Immat Gran (auto) 0.07 H (0.00-0.03) X10*3/uL Absolute Neuts (auto) 5.0 (2.0-8.3) x10*3/uL Absolute Nucleated RBC 0.000 (0.0-0.012) X10*3/uL Nucleated RBC % (auto) 0.0 (0.0-0.2) /100WBC Sodium (135-145) mmol/L Potassium (3.3-5.1) mmol/L Chloride (96-108) mmol/L Carbon Dioxide (22-29) mmol/L Anion Gap (12-20) BUN (9-16) mg/dL Creatinine (0.5-1.4) mg/dL Estim Creat Clear Calc Estimated GFR POC Glucose 429 H* 358 H* (60-115) mg/dL Random Glucose (60-115) mg/dL Lactic Acid (0.5-2.0) mmol/L Calcium (8.4-10.2) mg/dL Total Bilirubin (0.0-1.0) mg/dL AST (5-31) U/L ALT (0-31) U/L Alkaline Phosphatase (39-117) U/L Total Protein (6.5-8.0) g/dL Albumin (3.5-5.0) g/dL Lipase (8-78) U/L Acetone, Qual (Negative) 07/29/22 Range/Units 23:17 WBC (4.8-10.8) X10*3/uL RBC (4.20-5.50) X10*6/uL Hgb (12.0-16.0) g/dl Hct (37.0-47.0) % MCV (80.0-98.0) fL MCH (27.0-33.0) pg MCHC (31.0-35.0) g/dl RDW (11.0-16.0) % Plt Count (160-400) X10*3/uL MPV (9.4-12.3) fL Immature Gran % (Auto) (0.0-0.4) % Neut % (Auto) (45-73) % Lymph % (Auto) (20-40) % Sterling % (Auto) (2-11) % Eos % (Auto) (0-4) % Baso % (Auto) (0-2) % Lymph # (Auto) (1.2-4.9) X10*3/uL Sterling # (Auto) (0.1-1.2) X10*3/uL Eos # (Auto) (0.0-0.4) X10*3/uL Baso # (Auto) (0.0-0.2) X10*3/uL Abs Immat Gran (auto) (0.00-0.03) X10*3/uL Absolute Neuts (auto) (2.0-8.3) x10*3/uL Absolute Nucleated RBC (0.0-0.012) X10*3/uL Nucleated RBC % (auto) (0.0-0.2) /100WBC Sodium (135-145) mmol/L Potassium (3.3-5.1) mmol/L Chloride (96-108) mmol/L Carbon Dioxide (22-29) mmol/L Anion Gap (12-20) BUN (9-16) mg/dL Creatinine (0.5-1.4) mg/dL Estim Creat Clear Calc Estimated GFR POC Glucose 277 H (60-115) mg/dL Random Glucose (60-115) mg/dL Lactic Acid (0.5-2.0) mmol/L Calcium (8.4-10.2) mg/dL Total Bilirubin (0.0-1.0) mg/dL AST (5-31) U/L ALT (0-31) U/L Alkaline Phosphatase (39-117) U/L Total Protein (6.5-8.0) g/dL Albumin (3.5-5.0) g/dL Lipase (8-78) U/L Acetone, Qual (Negative) <Erica Soler Angela, DIRECTOR OF CRITICAL CARE - Last Filed: 07/29/22 14:09> Lab Results 07/29/22 07/29/22 07/29/22 Range/Units 14:29 15:03 15:03 WBC (4.8-10.8) X10*3/uL RBC (4.20-5.50) X10*6/uL Hgb (12.0-16.0) g/dl Hct (37.0-47.0) % MCV (80.0-98.0) fL MCH (27.0-33.0) pg MCHC (31.0-35.0) g/dl RDW (11.0-16.0) % Plt Count (160-400) X10*3/uL MPV (9.4-12.3) fL Immature Gran % (Auto) (0.0-0.4) % Neut % (Auto) (45-73) % Lymph % (Auto) (20-40) % Sterling % (Auto) (2-11) % Eos % (Auto) (0-4) % Baso % (Auto) (0-2) % Lymph # (Auto) (1.2-4.9) X10*3/uL Sterling # (Auto) (0.1-1.2) X10*3/uL Eos # (Auto) (0.0-0.4) X10*3/uL Baso # (Auto) (0.0-0.2) X10*3/uL Abs Immat Gran (auto) (0.00-0.03) X10*3/uL Absolute Neuts (auto) (2.0-8.3) x10*3/uL Absolute Nucleated RBC (0.0-0.012) X10*3/uL Nucleated RBC % (auto) (0.0-0.2) /100WBC Sodium 135 (135-145) mmol/L Potassium 4.7 (3.3-5.1) mmol/L Chloride 96 (96-108) mmol/L Carbon Dioxide 26 (22-29) mmol/L Anion Gap 18 (12-20) BUN 49 H (9-16) mg/dL Creatinine 6.29 H* (0.5-1.4) mg/dL Estim Creat Clear Calc 10.9 Estimated GFR 7 POC Glucose 369 H* (60-115) mg/dL Random Glucose 389 H* (60-115) mg/dL Lactic Acid 1.4 (0.5-2.0) mmol/L Calcium 8.9 (8.4-10.2) mg/dL Total Bilirubin 0.7 (0.0-1.0) mg/dL AST 16 (5-31) U/L ALT 31 (0-31) U/L Alkaline Phosphatase 158 H (39-117) U/L Total Protein 7.2 (6.5-8.0) g/dL Albumin 3.8 (3.5-5.0) g/dL Lipase 7 L (8-78) U/L Acetone, Qual Negative (Negative) 07/29/22 07/29/22 07/29/22 Range/Units 15:03 20:16 21:45 WBC 7.3 (4.8-10.8) X10*3/uL RBC 3.53 L D (4.20-5.50) X10*6/uL Hgb 10.7 L D (12.0-16.0) g/dl Hct 32.8 L D (37.0-47.0) % MCV 92.9 (80.0-98.0) fL MCH 30.3 (27.0-33.0) pg MCHC 32.6 (31.0-35.0) g/dl RDW 14.8 (11.0-16.0) % Plt Count 236 (160-400) X10*3/uL MPV 11.6 (9.4-12.3) fL Immature Gran % (Auto) 1.0 H (0.0-0.4) % Neut % (Auto) 68.5 (45-73) % Lymph % (Auto) 17.1 L (20-40) % Sterling % (Auto) 7.0 (2-11) % Eos % (Auto) 5.9 H (0-4) % Baso % (Auto) 0.5 (0-2) % Lymph # (Auto) 1.3 (1.2-4.9) X10*3/uL Sterling # (Auto) 0.5 (0.1-1.2) X10*3/uL Eos # (Auto) 0.4 (0.0-0.4) X10*3/uL Baso # (Auto) 0.0 (0.0-0.2) X10*3/uL Abs Immat Gran (auto) 0.07 H (0.00-0.03) X10*3/uL Absolute Neuts (auto) 5.0 (2.0-8.3) x10*3/uL Absolute Nucleated RBC 0.000 (0.0-0.012) X10*3/uL Nucleated RBC % (auto) 0.0 (0.0-0.2) /100WBC Sodium (135-145) mmol/L Potassium (3.3-5.1) mmol/L Chloride (96-108) mmol/L Carbon Dioxide (22-29) mmol/L Anion Gap (12-20) BUN (9-16) mg/dL Creatinine (0.5-1.4) mg/dL Estim Creat Clear Calc Estimated GFR POC Glucose 429 H* 358 H* (60-115) mg/dL Random Glucose (60-115) mg/dL Lactic Acid (0.5-2.0) mmol/L Calcium (8.4-10.2) mg/dL Total Bilirubin (0.0-1.0) mg/dL AST (5-31) U/L ALT (0-31) U/L Alkaline Phosphatase (39-117) U/L Total Protein (6.5-8.0) g/dL Albumin (3.5-5.0) g/dL Lipase (8-78) U/L Acetone, Qual (Negative) 07/29/22 Range/Units 23:17 WBC (4.8-10.8) X10*3/uL RBC (4.20-5.50) X10*6/uL Hgb (12.0-16.0) g/dl Hct (37.0-47.0) % MCV (80.0-98.0) fL MCH (27.0-33.0) pg MCHC (31.0-35.0) g/dl RDW (11.0-16.0) % Plt Count (160-400) X10*3/uL MPV (9.4-12.3) fL Immature Gran % (Auto) (0.0-0.4) % Neut % (Auto) (45-73) % Lymph % (Auto) (20-40) % Sterling % (Auto) (2-11) % Eos % (Auto) (0-4) % Baso % (Auto) (0-2) % Lymph # (Auto) (1.2-4.9) X10*3/uL Sterling # (Auto) (0.1-1.2) X10*3/uL Eos # (Auto) (0.0-0.4) X10*3/uL Baso # (Auto) (0.0-0.2) X10*3/uL Abs Immat Gran (auto) (0.00-0.03) X10*3/uL Absolute Neuts (auto) (2.0-8.3) x10*3/uL Absolute Nucleated RBC (0.0-0.012) X10*3/uL Nucleated RBC % (auto) (0.0-0.2) /100WBC Sodium (135-145) mmol/L Potassium (3.3-5.1) mmol/L Chloride (96-108) mmol/L Carbon Dioxide (22-29) mmol/L Anion Gap (12-20) BUN (9-16) mg/dL Creatinine (0.5-1.4) mg/dL Estim Creat Clear Calc Estimated GFR POC Glucose 277 H (60-115) mg/dL Random Glucose (60-115) mg/dL Lactic Acid (0.5-2.0) mmol/L Calcium (8.4-10.2) mg/dL Total Bilirubin (0.0-1.0) mg/dL AST (5-31) U/L ALT (0-31) U/L Alkaline Phosphatase (39-117) U/L Total Protein (6.5-8.0) g/dL Albumin (3.5-5.0) g/dL Lipase (8-78) U/L Acetone, Qual (Negative) <Elsy Ghosh MD - Last Filed: 07/29/22 23:43> Procedures Abscess I/D Site: other (Left breast) <Elsy Ghosh MD - Last Filed: 07/29/22 23:43> Side (if applicable): left <Elsy Ghosh MD - Last Filed: 07/29/22 23:43> Sedation/analgesia: none <Elsy Ghosh MD - Last Filed: 07/29/22 23:43> Local Anesthetic: lidocaine 2% and with epi <Elsy Ghosh MD - Last Filed: 07/29/22 23:43> Amount of anesthesia used (mL): 10 <Elsy Ghosh MD - Last Filed: 07/29/22 23:43> Technique: incised with blade <Elsy Ghosh MD - Last Filed: 07/29/22 23:43> Amount of fluid expressed (mL): 20 <Elsy Ghosh MD - Last Filed: 07/29/22 23:43> Packing used?: iodoform <Elsy Ghosh MD - Last Filed: 07/29/22 23:43> Discharge Plan Discharge Clinical Impression: Abscess of breast, Acute hyperglycemia, Contusion of left shoulder <Erica Miller CNP - Last Filed: 07/29/22 14:09> Patient Disposition: Home, Self-Care <Erica Miller CNP - Last Filed: 07/29/22 14:09> Instructions: Abscess Incision and Drainage (DC) <Erica Miller CNP - Last Filed: 07/29/22 14:09> Additional Instructions: Your packing needs to be removed in 24-48 hours. Please follow-up with your primary care physician tomorrow. If you have any worsening or new symptoms, please return to the emergency room or call 911 <Erica Miller CNP - Last Filed: 07/29/22 14:09> Prescriptions: New cephalexin 500 mg capsule 500 mg PO BID Qty: 20 0RF doxycycline hyclate 100 mg capsule 100 mg PO BID Qty: 20 0RF tramadol 50 mg tablet 50 mg PO BID PRN (Reason: pain) Qty: 7 0RF No Action (DME) blood-glucose meter [FreeStyle Lite Meter] Kit See Rx Instructions .ROUTE .MEDSUPPLY Qty: 1 0RF Rx Instructions: As directed amlodipine 10 mg tablet 10 mg PO QAM 90 Days Qty: 90 3RF Eliquis 5 mg tablet 5 mg PO BID 90 Days Qty: 180 3RF lisinopril 10 mg tablet 10 mg PO BEDTIME 90 Days Qty: 90 3RF Januvia 25 mg tablet 25 mg PO QAM Qty: 30 6RF (DME) FreeStyle Lite Strips Strip See Rx Instructions .ROUTE .MEDSUPPLY Qty: 100 11RF Rx Instructions: As directed four times a day (DME) lancets [TRUEplus Lancets] 33 gauge misc See Rx Instructions .ROUTE .COMPLEX Qty: 100 11RF Dose Instruction: TEST BLOOD SUGAR FOUR TIMES DAILY Rx Instructions: TEST BLOOD SUGAR FOUR TIMES DAILY (DME) pen needle, diabetic [BD Ultra-Fine Micro Pen Needle] 32 gauge x 1/4 needle See Rx Instructions .ROUTE .MEDSUPPLY Qty: 150 11RF Rx Instructions: As directed 4 times a day insulin lispro [Humalog KwikPen Insulin] 100 unit/mL insulin pen See Rx Instructions .ROUTE TID Qty: 15 5RF Rx Instructions: SLIDING SCALE 3 times a day; 8-14 units before, breakfast, lunch and dinner levothyroxine 25 mcg tablet 1 tab PO QAM hydralazine 50 mg tablet 1 tab PO TID@0900,1200,1800 gabapentin 100 mg capsule 200 mg PO BID melatonin 5 mg tablet 5 mg PO BEDTIME atorvastatin 40 mg tablet 40 mg PO DAILY sevelamer carbonate 800 mg tablet 800 mg PO TIDAC aspirin 81 mg tablet,delayed release (DR/EC) 1 tab PO DAILY cholecalciferol (vitamin D3) 50 mcg (2,000 unit) capsule 1 cap PO QAM doxycycline hyclate 100 mg capsule 100 mg PO BID Qty: 10 0RF metoprolol tartrate 50 mg tablet 50 mg PO Q12H Qty: 60 0RF (DME) Dexcom G6 Creative 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 Misc See Rx Instructions .ROUTE Rx Instructions: As directed (DME) Dexcom G6 Sensor Device See Rx Instructions .ROUTE Rx Instructions: As directed (DME) Dexcom G6 Transmitter Device See Rx Instructions .ROUTE Rx Instructions: As directed Toujeo Max U-300 SoloStar 300 unit/mL (3 mL) insulin pen 28 unit subcut DAILY 30 Days Qty: 6 6RF chlorhexidine gluconate [Hibiclens] 4 % liquid 1 appl topical .COMPLEX Qty: 473 3RF Rx Instructions: 1 appl topically lather in shower every 3-4 days, leave on skin for 1 monute before rinsing; <Erica Miller CNP - Last Filed: 07/29/22 14:09> Interventions: ED Discharge Assessment Last Done: 07/29/22 23:20 <Erica Miller CNP - Last Filed: 07/29/22 14:09>
[2022-07-29 14:03] VITALS: BP 138/62; PULSE 84; RESP 18; TEMP 36.6; O2SAT 98; BMI 37.2
[2022-07-29 14:34] LABS: Glucose, Whole Blood 369 mg/dL (60-115)
[2022-07-29 15:08] LABS: MANUAL DIFF FLAG NO
[2022-07-29 15:20] LABS: Basophils Percent Auto 0.5 % (0-2); Eosinophils Absolute Auto 0.4 X10*3/uL (0.0-0.4); Eosinophils Percent Auto 5.9 % (0-4); Hematocrit 32.8 % (37.0-47.0); Hemoglobin 10.7 g/dl (12.0-16.0); Imm Gran Abs Auto 0.07 X10*3/uL (0.00-0.03); Lymphocytes Absolute Auto 1.3 X10*3/uL (1.2-4.9); Lymphocytes Percent Auto 17.1 % (20-40); Mean Corpuscular HGB Conc 32.6 g/dl (31.0-35.0); Mean Corpuscular Hemoglobin 30.3 pg (27.0-33.0); Mean Corpuscular Volume 92.9 fL (80.0-98.0); Mean Platelet Volume 11.6 fL (9.4-12.3); Monocytes Absolute Auto 0.5 X10*3/uL (0.1-1.2); Neutrophils Percent Auto 68.5 % (45-73); Platelet Count 236 X10*3/uL (160-400); Red Blood Count 3.53 X10*6/uL (4.20-5.50); Red Cell Distribution Width 14.8 % (11.0-16.0); White Blood Count 7.3 X10*3/uL (4.8-10.8)
[2022-07-29 15:24] LABS: Lactic Acid 1.4 mmol/L (0.5-2.0)
[2022-07-29] MEDS: Acetaminophen 325 MG TABLET 975 MG PO (16:47)
[2022-07-29 18:00] VITALS: BP 154/69; PULSE 61; RESP 16; TEMP 36.7; O2SAT 98
[2022-07-29 18:05] LABS: Acetone, serum QL Negative (Negative)
[2022-07-29 18:16] LABS: Alanine Aminotransferase 31 U/L (0-31); Albumin Level 3.8 g/dL (3.5-5.0); Alkaline Phosphatase 158 U/L (39-117); Anion Gap 18 (12-20); Aspartate Amino Transferase 16 U/L (5-31); Bilirubin Total 0.7 mg/dL (0.0-1.0); Blood Urea Nitrogen 49 mg/dL (9-16); Calcium 8.9 mg/dL (8.4-10.2); Carbon Dioxide 26 mmol/L (22-29); Chloride 96 mmol/L (96-108); Creatinine Clr Calc Pharmacy 10.9; Estimated Glomerular Filt Rate 7; Glucose Random 389 mg/dL (60-115); Lipase 7 U/L (8-78); Potassium 4.7 mmol/L (3.3-5.1); Sodium 135 mmol/L (135-145); Total Protein 7.2 g/dL (6.5-8.0)
--- NOTE | 2022-07-29 18:19 | MHC.EDTECH ---
pt 1800 rounding done ,vitals sign taken pt eating , at bedside .
--- NOTE | 2022-07-29 19:35 | PC.NURSE ---
assumed care of pt aox4 resting quietly, while at bedside
--- NOTE | 2022-07-29 19:36 | PC.NURSE ---
this nurse present and assisted with handing supplies to Dr Ghosh in order to drain and pack abscess on L breast of pt
--- NOTE | 2022-07-29 19:42 | PC.NURSE ---
order for humulin 10 units changed from IV push to subQ per Dr Ghosh waiting for change to be made to MAR
[2022-07-29 19:53] VITALS: BP 141/49; PULSE 61; RESP 16; TEMP 36.6; O2SAT 98
--- NOTE | 2022-07-29 19:54 | MHC.EDTECH ---
2000 rounding done ,vitals sign taken pt waiting for discharged paper work .
[2022-07-29] MEDS: Doxycycline Monohydrate 100 MG CAPSULE PO (20:02)
[2022-07-29] MEDS: traMADoL HCL 50 MG TABLET PO (20:02)
[2022-07-29] MEDS: cephALEXin 500 MG CAPSULE PO (20:02)
[2022-07-29 20:31] LABS: Glucose, Whole Blood 429 mg/dL (60-115)
[2022-07-29] MEDS: Insulin Lispro 100 UNIT/ML 3 ML VIAL 10 UNIT SUBCUT ×2 (21:06→22:49)
[2022-07-29 21:48] VITALS: BP 164/63; PULSE 61; RESP 16; TEMP 36.6; O2SAT 98
--- NOTE | 2022-07-29 21:54 | MHC.EDTECH ---
PT 2200 ROUNDING DONE ,VITALS SIGN TAKEN ,BLOOD SUGAR RE CHECK PT AT BED SIDE .
[2022-07-29 21:55] LABS: Glucose, Whole Blood 358 mg/dL (60-115)
[2022-07-29] MEDS: oxyCODONE HCl Immed Release 5 MG TABLET PO (22:43)
--- NOTE | 2022-07-29 23:19 | PC.NURSE ---
discharge instructions given/explained, ambulates safely/independently, no apparent distress, all of pt's questions answered
[2022-07-29 23:21] LABS: Glucose, Whole Blood 277 mg/dL (60-115)
== END 2022-07-30 00:28 | disposition home or self-care (01) ==
PROVIDERS: Nurse Practitioner Family; Emergency Provider Emergency Medicine; PCP Internal Medicine
DX: S40.012A Contusion of left shoulder, initial encounter (principal); N61.1 Abscess of the breast and nipple; E11.65 Type 2 diabetes mellitus with hyperglycemia; W01.0XXA Fall on same level from slipping, tripping and stumbling without subsequent striking against object, initial encounter; Y93.9 Activity, unspecified; Y92.9 Unspecified place or not applicable; Y99.9 Unspecified external cause status; Z79.4 Long term (current) use of insulin; Z79.899 Other long term (current) drug therapy
CPT/HCPCS: 10060; 36415; 73030; 73060; 80053; 82009; 82947; 83605; 83690; 85025; 99284

== ENCOUNTER → 2022-08-26 13:28 | Outpatient (BNVA) | payer MEDICAID, SELFPAY | PROVIDERS: PCP Internal Medicine; Visit Provider Internal Medicine | DX: L73.2 Hidradenitis suppurativa (principal) | CPT/HCPCS: 99202 ==

== ENCOUNTER 2022-09-09 12:25 | Outpatient (REF) | payer MEDICAID, SELFPAY ==
[2022-09-09 14:28] LABS: Cholesterol 101 mg/dL; HDL Cholesterol 37 mg/dL; LDL Cholesterol Calculated 41 mg/dl; Triglycerides 118 mg/dL
== END 2022-09-09 12:26 | disposition home or self-care (01) ==
LOC: HO.LAB 12:25
PROVIDERS: Visit Provider Internal Medicine Endocrinology, Diabetes & Metabolism
DX: E11.22 Type 2 diabetes mellitus with diabetic chronic kidney disease (principal); N18.6 End stage renal disease
CPT/HCPCS: 36415; 80061

== ENCOUNTER → 2022-09-11 13:39 | Outpatient (BNVA) | payer MEDICAID, SELFPAY | PROVIDERS: PCP Internal Medicine; Visit Provider Internal Medicine Endocrinology, Diabetes & Metabolism | DX: E11.65 Type 2 diabetes mellitus with hyperglycemia (principal); E11.22 Type 2 diabetes mellitus with diabetic chronic kidney disease; N18.6 End stage renal disease; Z79.4 Long term (current) use of insulin | CPT/HCPCS: 82947; 83036; 99212 ==

== ENCOUNTER 2022-12-02 13:21 | Outpatient (REF) | payer MEDICAID, SELFPAY ==
--- NOTE | ~2022-12-02 | XR_ITS ---
EXAMINATION: XR HIP, RIGHT CLINICAL INFORMATION: Pain x2 weeks, no injury. COMPARISON: None available. TECHNIQUE: AP view of the pelvis and 2 views of the right hip FINDINGS: No displaced pelvic fracture, pubic symphysis and sacroiliac joints are intact. There is mild joint space narrowing in the right hip with some spurring in the superior acetabulum. Vascular calcifications. XR/XR hip RT w PEL1V IMPRESSION: Mild degenerative change in the right hip. No displaced fracture.
--- NOTE | ~2022-12-02 | XR_ITS ---
EXAMINATION: XR LUMBOSACRAL SPINE CLINICAL INFORMATION: Pain x2 weeks, no injury. COMPARISON: CT abdomen 05/01/2022 TECHNIQUE: Three views of the lumbosacral spine. FINDINGS: Vertebral body heights and intervertebral disc spaces are fairly well-preserved. Normal alignment. Mild facet arthropathy in the lower lumbar spine. Extensive vascular calcifications. Sacroiliac joints are intact. Surgical clips in the right upper quadrant. XR/XR lumbar spine 2-3V IMPRESSION: Mild degenerative change in the lumbar spine. No acute process.
== END 2022-12-02 13:22 | disposition home or self-care (01) ==
LOC: HO.HHCX 13:21
PROVIDERS: Visit Provider Internal Medicine
DX: M25.551 Pain in right hip (principal); M54.50 Low back pain, unspecified
CPT/HCPCS: 72100; 73502

== ENCOUNTER 2022-12-10 15:47 | Outpatient (AMB) | payer MEDICAID, SELFPAY ==
--- NOTE | 2022-12-10 15:48 | A.OFFVIS_ITS ---
Intake Vital Signs 12/10/22 15:53 BP 138/78 Pulse 60 Pulse Oximetry (%) 99 Intake Visit Reasons: 3 mth f/u,hydradenitis Allergies No Known Allergies [No Known Allergies*] Allergy (Verified 12/11/22 14:37) HPI 3 mth f/u,hydradenitis HPI Details She took Doxycycline and hidradenitis went away she says. She has no complaints. [facility] Medical History Asthma AV fistula CAD (coronary artery disease) CHF (congestive heart failure) Chronic cough Chronic low back pain without sciatica Depression Dialysis patient Dysphonia Dyspnea on exertion End stage renal disease on dialysis ESRD (end stage renal disease) ESRD needing dialysis GERD (gastroesophageal reflux disease) Hidradenitis suppurativa HLD (hyperlipidemia) HTN (hypertension) Kidney stones Normocytic anemia Obesity due to excess calories AMARJIT (obstructive sleep apnea) Osteoarthritis of both knees Paroxysmal atrial flutter Pneumonia Renal failure (ARF), acute on chronic T2DM (type 2 diabetes mellitus) Thyroid disease 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 Type 2 diabetes mellitus with hyperglycemia Uncontrolled type 2 diabetes mellitus with hyperglycemia, with long-term current use of insulin Unstable gait Urinary frequency Surgical History History of kidney surgery Hx of bone graft Hx of cholecystectomy Family History Father CVD (cardiovascular disease) Diabetes Mother Diabetes Sister Stomach cancer Social History Household Members: Family Housing: House Do you presently have visiting nurse or other home services: No Unable to assess alcohol history related to: Unknown Alcohol intake: never Patient Tobacco Use Status: Never used Tobacco Advance Directives Date on File: 02/15/21 service: No Current occupational status: disabled Current occupation: right hand dominant Review of Systems Const All systems reviewed & are unremarkable except as noted in HPI and below Physical Exam Vital Signs: Last Vital Signs Pulse 60 12/10/22 15:53 BP 138/78 12/10/22 15:53 Pulse Ox 99 12/10/22 15:53 Const General: cooperative HEENT Head: Yes normal to inspection Face and sinus: Yes normal facial exam Mouth: Normal oral and palatal mucosa present Teeth and gingiva: dentition normal Eyes General: appearance normal, both eyes and all related structures Pupils: Equal, round and reactive pupils present Resp Effort & Inspection: normal respiratory effort Cardio Rate: regular rate Rhythm: regular rhythm GI Palpation (GI): Soft to palpation and nontender General: Yes no CVA tenderness Back/Spine/Pelvis Back: no CVA tenderness Skin General skin exam: no rashes or lesions noted Neuro General: moves all extremities Cranial nerves: Yes Equal, round and reactive pupils present Extrem General: Yes normal to inspection Psych Appearance: grossly normal Assessment & Plan Assessment & Plan (1) Hidradenitis suppurativa: Comment: She has no complaints and hidradenitis resolved. Code(s): L73.2 - Hidradenitis suppurativa Plan: No further antibiotics at this time. Coding Level of Care Code Est Pt Level 3 (02263) Diagnoses Hidradenitis suppurativa L73.2
[2022-12-10 15:53] VITALS: BP 138/78; PULSE 60; O2SAT 99
== END 2022-12-10 16:05 | disposition home or self-care (01) ==
LOC: HO.HID 15:48
PROVIDERS: PCP Internal Medicine; Visit Provider Internal Medicine
DX: L73.2 Hidradenitis suppurativa (principal)
CPT/HCPCS: 99213

== ENCOUNTER → 2022-12-10 15:47 | Outpatient (BNVA) | payer MEDICAID, SELFPAY | PROVIDERS: PCP Internal Medicine; Visit Provider Internal Medicine | DX: L73.2 Hidradenitis suppurativa (principal) | CPT/HCPCS: 99212 ==

== ENCOUNTER 2022-12-11 14:08 | Outpatient (AMB) | payer MEDICAID, SELFPAY ==
--- NOTE | 2022-12-11 14:35 | A.OFFVIS_ITS ---
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 Patient reports pain in all fingers but mostly her middle finger. Her pain radiates down her fingers to elbow and will have numbness/tingling with holding items. Difficulty with closing fist, gripping objects and will frequently drops items. No previous tx. 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 She states she has pain in all her fingers which is worse in the middle finger. Her pain radiates from her finger up to the elbow and she also c/o numbness and tingling with holding items. She finds difficulty with closing a fist, gripping objects and frequently drops items. She takes Tylenol for her pain which did not provide her any relief. She has tried bracing her hand without benefits. She has a history of diabetes. She is unsure of her sugar levels today. Her HbA1c is 9.2. She has a history of neuropathy and hip arthritis. [facility] Medical History Asthma AV fistula CAD (coronary artery disease) CHF (congestive heart failure) Chronic cough Chronic low back pain without sciatica Depression Dialysis patient Dysphonia Dyspnea on exertion End stage renal disease on dialysis ESRD (end stage renal disease) ESRD needing dialysis GERD (gastroesophageal reflux disease) Hidradenitis suppurativa HLD (hyperlipidemia) HTN (hypertension) Kidney stones Normocytic anemia Obesity due to excess calories AMARJIT (obstructive sleep apnea) Osteoarthritis of both knees Paroxysmal atrial flutter Pneumonia Renal failure (ARF), acute on chronic T2DM (type 2 diabetes mellitus) Thyroid disease 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 Type 2 diabetes mellitus with hyperglycemia Uncontrolled type 2 diabetes mellitus with hyperglycemia, with long-term current use of insulin Unstable gait Urinary frequency Surgical History History of kidney surgery Hx of bone graft Hx of cholecystectomy Family History Father CVD (cardiovascular disease) Diabetes Mother Diabetes Sister Stomach cancer Social History (Updated 12/11/22 @ 14:39 by Raiba Lovett [facility]) Household Members: Family Housing: House Do you presently have visiting nurse or other home services: No Unable to assess alcohol history related to: Unknown Alcohol intake: never Patient Tobacco Use Status: Never used Tobacco Advance Directives Date on File: 02/15/21 service: No Current occupational status: disabled Current occupation: right hand dominant Review of Systems Const All systems reviewed & are unremarkable except as noted in HPI and below Physical Exam Vital Signs: BMI result Body Mass Index 37.4 Const General: cooperative, healthy appearing, comfortable, no acute distress, well developed and alert Orientation/consciousness: patient oriented x3 HEENT Head: Yes normal to inspection, Yes normocephalic and Yes atraumatic Eyes General: appearance normal, both eyes and all related structures Resp Effort & Inspection: normal respiratory effort and able to speak in complete sentences Cardio Rate: regular rate Peripheral pulses: Peripheral pulses 2+ throughout GI Palpation (GI): Soft to palpation Skin Lesions: no lesions Rashes: no rashes Neuro General: patient oriented x3 Extrem Other: Bilateral wrist: Normal to inspection. Tenderness over the carpal canal. Numbness and tingling over the median nerve distribution of the right hand. Able to make a full fist and fully extend all fingers. Positive Tinel's. Assessment & Plan Assessment & Plan (1) Carpal tunnel syndrome on both sides: Code(s): G56.03 - Carpal tunnel syndrome, bilateral upper limbs Plan An EMG of bilateral upper extremity was ordered in the office today. She was al so sent to occupational therapy and she was given an off the shelf comfort wrist splint to wear at night. She will see us back when the study is complete. Orders: Orders NE electromyogram (EMG) 12/11/22 R20.0 - Anesthesia of skin, R20.2 - Paresthesia of skin NE nerve conduction velocity 12/11/22 R20.0 - Anesthesia of skin, R20.2 - Paresthesia of skin OT Evaluation and Treatment 12/11/22 G56.03 - Carpal tunnel syndrome, bilateral upper limbs Patient Instructions: Scribed for Ta-ADRIAN Ward-C, by Socrates Mascorro, medical office technologist, on 12/11/2022 at 2:15 PM EST. I, Niraj Mcmahan PA-C, have personally reviewed and agree with the information entered by the scribe. Coding Level of Care Code New Pt Level 3 (75895) Diagnoses Carpal tunnel syndrome on both sides G56.03
[2022-12-11 15:03] VITALS: BMI 37.4
== END 2022-12-11 15:32 | disposition home or self-care (01) ==
PROVIDERS: PCP Internal Medicine; Visit Provider Physician Assistant
DX: G56.03 Carpal tunnel syndrome, bilateral upper limbs (principal)
CPT/HCPCS: 99203

== ENCOUNTER → 2022-12-11 14:08 | Outpatient (BNVA) | payer MEDICAID, SELFPAY | PROVIDERS: PCP Internal Medicine; Visit Provider Physician Assistant | DX: G56.03 Carpal tunnel syndrome, bilateral upper limbs (principal) | CPT/HCPCS: 99203 ==

== ENCOUNTER 2023-03-05 13:13 | Outpatient (REF) | payer MEDICAID, SELFPAY ==
--- NOTE | 2023-03-05 13:16 | EMG_ITS ---
Chief complaint: Bilateral hand numbness. History of ESRD on dialysis. History of diabetic neuropathy. Reason for referral: Evaluate for Carpal Tunnel Syndrome Referred by: Niraj CAMPBELL Procedure done: Bilateral upper extremities NCS, right upper extremity EMG Precautions and/or limitations: AV fistula on left arm, and needle EMG deferred on left. There is no contraindication to doing NCS despite AV fistula on left. Patient wanted us to do the NCS part on the left. On Eliquis. The limb temperature was monitored continuously and remained between 32-36 degrees C during the performance of the NCS. Nerve Conduction Studies Anti Sensory Summary Table ?Stim Site NR Onset (ms) Norm Onset (ms) Peak (ms) Norm Peak (ms) O-P Amp (?V) Norm O-P Amp Site1 Site2 Delta-0 (ms) Dist (cm) Ash (m/s) Norm Ash (m/s) Left Median Anti Sensory (2nd Digit) Wrist NR <3.6 >10 Wrist 2nd Digit 14.0 Right Median Anti Sensory (2nd Digit) Wrist NR <3.6 >10 Wrist 2nd Digit 14.0 Right Radial Anti Sensory (Thumb) Forearm NR <3.1 Forearm Thumb 0.0 Left Ulnar Anti Sensory (5th Digit) Wrist NR <3.7 >15.0 Wrist 5th Digit 14.0 Right Ulnar Anti Sensory (5th Digit) Wrist NR <3.7 >15.0 Wrist 5th Digit 14.0 Motor Summary Table ?Stim Site NR Onset (ms) Norm Onset (ms) O-P Amp (mV) Norm O-P Amp iAmp (mV) Amp (1st) (%) Site1 Site2 Delta-0 (ms) Dist (cm) Ash (m/s) Norm Ash (m/s) Left Median Motor (Abd Poll Brev) Wrist ? 7.9 <3.9 5.5 >4.5 6.6 100.0 Elbow Wrist 5.1 20.0 39 >45 Elbow ? 13.0 2.6 3.1 47.3 Right Median Motor (Abd Poll Brev) Wrist ? 15.1 <3.9 1.3 >4.5 1.4 100.0 Elbow Wrist 5.5 21.0 38 >45 Elbow ? 20.6 1.0 1.2 76.9 Left Ulnar Motor (Abd Dig Minimi) Wrist ? 3.6 <3.0 2.2 >5 2.5 100.0 B Elbow Wrist 3.8 17.0 45 >45 B Elbow ? 7.4 2.0 2.3 90.9 A Elbow B Elbow 2.1 10.0 48 >45 A Elbow ? 9.5 1.4 1.7 63.6 Right Ulnar Motor (Abd Dig Minimi) Wrist ? 3.8 <3.0 1.6 >5 1.8 100.0 B Elbow Wrist 3.9 17.0 44 >45 B Elbow ? 7.7 1.6 1.8 100.0 A Elbow B Elbow 10.0 >45 A Elbow NR EMG ?Side Muscle Nerve Root Ins Act Fibs Psw Amp Dur Poly Recrt Int Pat Comment Right 1stDorInt Ulnar C8-T1 Incr 1+ 1+ Nml Nml 0 Nml Complete Right FlexCarRad Median C6-7 Nml Nml Nml Nml Nml 0 Nml Complete Right Biceps Musculocut C5-6 Nml Nml Nml Nml Nml 0 Nml Complete Right Triceps Radial C6-7-8 Nml Nml Nml Nml Nml 0 Nml Complete Right Deltoid Axillary C5-6 Nml Nml Nml Nml Nml 0 Nml Complete FINDINGS: Right median motor nerve showed prolonged distal latency, small amplitude and slow conduction velocity. Right ulnar motor nerve showed prolonged distal latency, small amplitude and absent response above elbow and slow conduction velocity. Left median motor nerve showed prolonged distal latency, normal amplitude and slow conduction velocity. Left ulnar motor nerve showed prolonged distal latency, small amplitude and normal conduction velocity. Bilateral median sensory, bilateral ulnar sensory, right radial sensory all showed no responses. Concentric needle EMG was performed in selected muscles of the right upper extremity. Study revealed Signs of electric abnormalities as shown in the table below. Right FDI showed increased insertional activity, PSWs and fibrillations. IMPRESSION: 1. This is an abnormal study. 2. There is electrodiagnostic evidence for bilateral median neuropathy at the wrists, bilateral ulnar neuropathy at the elbow, in the setting of peripheral neuropathy.. 3. There is no electrodiagnostic for cervical radiculopathy. Thank you for your kind referral. Iraida Aguirre MD, SENTHIL Board Certified, [place] Board of Physical Medicine and Rehabilitation (ABPMR) Board Certified, [place] Board of Electrodiagnostic Medicine (ABEM) [place] [id number] [facility]
== END 2023-03-05 13:14 | disposition home or self-care (01) ==
LOC: HO.NEURO 13:13
PROVIDERS: PCP Internal Medicine; Visit Provider Physician Assistant
DX: R20.0 Anesthesia of skin (principal); R20.2 Paresthesia of skin
CPT/HCPCS: 95886; 95911

== ENCOUNTER → 2023-03-05 13:16 | Outpatient (BNV) | payer MEDICAID, SELFPAY | PROVIDERS: PCP Internal Medicine; Visit Provider Physical Medicine & Rehabilitation | DX: G56.13 Other lesions of median nerve, bilateral upper limbs (principal); G56.23 Lesion of ulnar nerve, bilateral upper limbs | CPT/HCPCS: 95886; 95911 ==

== ENCOUNTER 2023-03-06 15:49 | Emergency (ER) | payer MEDICAID, SELFPAY ==
--- NOTE | ~2023-03-06 | XR_ITS ---
EXAMINATION: XR HIP, LEFT CLINICAL INFORMATION: Chronic hip pain COMPARISON: 12/02/2022 TECHNIQUE: Two views of the left hip. Frontal view of the pelvis. FINDINGS: No fracture or dislocation. The hips are well aligned. Mild degenerative changes present of both hips with subchondral sclerosis and small osteophytes. The pelvic rim is intact. Normal bowel gas pattern. XR/XR hip LT w PEL1V IMPRESSION: Mild degenerative changes of both hips.
--- NOTE | 2023-03-06 16:01 | ED_ITS ---
HPI - General Adult General Chief complaint: General Medical Stated complaint: unable to ambulate, sharp pain in hip and hand. Time Seen by Provider: 03/06/23 16:00 Source: patient, EMS, RN notes reviewed and old records reviewed Mode of arrival: EMS History of Present Illness HPI narrative: 58-year-old female past medical history of asthma, CHF, CAD, depression, ESRD on HD (M/W/F), HTN, HLD, AMARJIT, diabetes, presenting to the ED via EMS complaining of acute on chronic bilateral wrist/hand pain and tingling > RUE. Admits was evaluated yesterday at [facility] and diagnosed with diabetic neuropathy/carpal tunnel syndrome, presenting today due to continued pain. Also reports acute on chronic left hip pain with difficulty ambulating x months. Admits to intermittent room spinning dizziness, nausea, emesis x1. Denies headache, vision loss, CP/SOB, abdominal pain, focal weakness, trauma/fall Onset (ago): month(s) Related Data Home Medications Medication Instructions Recorded Confirmed gabapentin 100 mg capsule 200 mg PO BID neuropathic pain 02/12/21 09/11/22 hydralazine 50 mg tablet 1 tab PO TID@0900,1200,1800 blood 02/12/21 09/11/22 pressure levothyroxine 25 mcg tablet 1 tab PO QAM 02/12/21 09/11/22 melatonin 5 mg tablet 5 mg PO BEDTIME 02/12/21 09/11/22 atorvastatin 40 mg tablet 40 mg PO DAILY cholesterol 02/26/21 09/11/22 sevelamer carbonate 800 mg tablet 800 mg PO TIDAC 02/26/21 09/11/22 aspirin 81 mg tablet,delayed 1 tab PO DAILY 10/12/21 09/11/22 release cholecalciferol (vitamin D3) 50 1 cap PO QAM 10/12/21 09/11/22 mcg (2,000 unit) capsule Previous Rx's Medication Instructions Recorded blood-glucose meter (FreeStyle #1 ea 04/24/21 Lite Meter kit) metoprolol tartrate 50 mg tablet 50 mg PO Q12H #60 tabs 06/28/21 amlodipine 10 mg tablet 10 mg PO QAM blood pressure 90 08/02/21 days #90 tabs apixaban 5 mg tablet (Eliquis) 5 mg PO BID 90 days #180 tabs 08/02/21 lisinopril 10 mg tablet 10 mg PO BEDTIME blood pressure 90 08/02/21 days #90 tabs blood sugar diagnostic (FreeStyle #100 ea 06/04/22 Lite Strips) lancets 33 gauge (TRUEplus Lancets) ##100 06/05/22 pen needle, diabetic 32 gauge x #150 ea 07/02/2205/28 (BD Ultra-Fine Micro Pen Needle) chlorhexidine gluconate 4 % 1 appl topical .COMPLEX 2 doses 07/08/22 topical liquid (Hibiclens) #473 mL cephalexin 500 mg capsule 500 mg PO BID #20 caps 07/29/22 tramadol 50 mg tablet 50 mg PO BID PRN pain #7 tabs 07/29/22 doxycycline hyclate 100 mg tablet 100 mg PO BID 30 days #60 tabs 08/26/22 blood-glucose meter,continuous #1 ea 09/11/22 (Dexcom G6 Manager Of Purchasing) blood-glucose sensor (Dexcom G6 #3 ea 09/11/22 Sensor device) blood-glucose transmitter (Dexcom #1 ea 09/11/22 G6 Transmitter device) insulin glargine U-300 conc 300 28 unit (0.0933 mL) subcut DAILY 09/30/22 unit/mL (3 mL) subcutaneous pen 30 days #6 mL (Toujeo Max U-300 SoloStar) sitagliptin phosphate 25 mg tablet 25 mg PO QAM #30 tabs 12/31/22 (Januvia) insulin lispro 100 unit/mL See Rx Instructions subcut 01/02/23 subcutaneous pen .COMPLEX #15 mL tramadol 50 mg tablet 50 mg PO Q8H PRN pain, severe #5 03/06/23 tabs Allergies Allergy/AdvReac Type Severity Reaction Status Date / Time No Known Allergies Allergy Verified 03/06/23 16:02 [No Known Allergies*] Review of Systems 2 Review of Systems: Constitutional: No Fever, No Chills, No Fatigue, No Malaise ENT/Mouth: No Ear Pain, No Nasal Congestion, No sore throat, No Rhinorrhea, No Swallowing Difficulty Eyes: No Eye Pain, No Swelling, No Redness, No Vision Changes Cardiovascular: No Chest Pain, No SOB, No Edema, No Palpitations Respiratory: No Cough, No Sputum, , No Dyspnea Gastrointestinal: +Nausea, + Vomiting, No Diarrhea, No Constipation, No Abdominal pain Genitourinary: No irregular bleeding, No Dysuria, No Urinary Frequency, No Hematuria, No Urinary Incontinence/retention Musculoskeletal: +joint pain, + Myalgias, No Joint Swelling Skin: No Skin Lesions, No rash Neuro: No Weakness, No Numbness, + Paresthesias, No Loss of Consciousness, +Dizziness, No Headache Yes all other systems are reviewed and are negative Constitutional: Constitutional: Reports as per HPI Neurologic: Denies Abnormal speech present [facility] Past Medical History Attestation statement: The following information was validated with the patient. Source: old records reviewed Medical History Uncontrolled type 2 diabetes mellitus with hyperglycemia, with long-term current use of insulin Hidradenitis suppurativa Pneumonia Type 2 diabetes mellitus with hyperglycemia 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 Paroxysmal atrial flutter Dysphonia Chronic cough Urinary frequency Dyspnea on exertion Unstable gait Asthma Chronic low back pain without sciatica Osteoarthritis of both knees Kidney stones Depression AMARJIT (obstructive sleep apnea) Normocytic anemia ESRD needing dialysis CHF (congestive heart failure) Obesity due to excess calories CAD (coronary artery disease) GERD (gastroesophageal reflux disease) Thyroid disease AV fistula HLD (hyperlipidemia) ESRD (end stage renal disease) T2DM (type 2 diabetes mellitus) End stage renal disease on dialysis Dialysis patient Renal failure (ARF), acute on chronic HTN (hypertension) Surgical History History of kidney surgery Hx of cholecystectomy Hx of bone graft Family History Family History Father CVD (cardiovascular disease) Diabetes Mother Diabetes Sister Stomach cancer Social History Social History Household Members: Family Housing: House Do you presently have visiting nurse or other home services: No Unable to assess alcohol history related to: Unknown Alcohol intake: never Patient Tobacco Use Status: Never used Tobacco Smoked in Last 30 Days: No Use of substances other than those prescribed or required for medical reasons: No Advance Directives: Yes Advance Directives on File: Yes Advance Directives Date on File: 02/15/21 service: No Current occupational status: disabled Current occupation: right hand dominant Physical Exam ED Vital Signs: Vital Signs - 24 hr 03/06/23 17:04 03/06/23 17:41 Pulse Rate 58 57 Respiratory Rate 15 12 Blood Pressure 117/46 L 133/55 L Pulse Oximetry 98 98 Oxygen Delivery Method Room Air Room Air BMI result Body Mass Index 37.2 Const General: cooperative, healthy appearing and no acute distress Orientation/consciousness: patient oriented x3 Limitations: no limitations HENMT Head: Yes normal to inspection, Yes atraumatic, No Lora's sign and No raccoon eyes Ears: hearing grossly normal bilaterally General nose exam: Normal external nose present Face and sinus: Yes normal facial exam Throat: Yes posterior oropharynx normal and Yes uvula midline Eyes General: appearance normal, both eyes and all related structures Pupils: Equal, round and reactive pupils present EOM: EOMs intact bilaterally Neck Neck: Yes normal visual inspection and Yes no meningeal signs Resp Effort & Inspection: normal respiratory effort and no respiratory distress Auscultation: clear to auscultation bilaterally Cardio Rate: regular rate Heart sounds: S1 normal heart sound present and S2 normal heart sound present GI Inspection: Yes normal to inspection Palpation (GI): Soft to palpation, nontender, no guarding and not rigid Skin Rashes: no rashes Wounds: no wounds Neuro General: patient oriented x3, tone normal, moves all extremities, no meningeal signs, no focal motor deficits and CN's II-XI intact bilaterally Cranial nerves: Yes CN's II-XII intact bilaterally and Yes Equal, round and reactive pupils present Cognition (Neuro): normal cognition Speech: No Abnormal speech present Motor exam (neuro): 5/5 motor strength present throughout and no tremor noted Extrem Other: Left hip without noted deformity. Mildly tender to palpation. Active and passive ROM intact with discomfort. Left knee nontender. No deformity. Neurovascularly intact distally Bilateral wrists with positive Tinel's and Phalen sign > right. Neurovascularly intact. General: Yes normal to inspection Course Course Course Narrative: -183--no leukocytosis. H&H at patient's baseline. Chronic CKD, better than baseline as patient was dialyzed today. -troponin 41.7, elevated in the past, likely from CKD > discussed with patient PT/case management however she is not agreeable XR hip LT w PEL1V IMPRESSION: Mild degenerative changes of both hips. >> volar Velcro splints applied bilaterally for suspected carpal tunnel syndrome. Recommended close orthopedic and PCP follow-up. On re-evaluation patient reports symptomatic improvement, was sleeping comfortably, would like to be discharged home Results discussed with patient including worrisome signs and symptoms and strict return precautions, and when to return to the emergency department. They verbalized understanding and feel safe for discharge at this time. Medications Administered Discontinued Medications Generic Name Dose Route Start Last Admin Trade Name Freq PRN Reason Stop Dose Admin Meclizine HCl 25 mg 03/06/23 16:53 03/06/23 17:36 Meclizine Hcl 25 Mg Tablet PO 03/06/23 16:54 25 mg ONCE ONE Administration Ondansetron HCl 4 mg 03/06/23 16:17 03/06/23 16:42 Ondansetron Odt 4 Mg Tab.Rapdis TRANSLINGU 03/06/23 16:18 4 mg ONCE ONE Administration Oxycodone HCl 5 mg 03/06/23 16:17 03/06/23 16:42 Oxycodone Hcl Immed Release 5 Mg Tablet PO 03/06/23 16:18 5 mg ONCE ONE Administration Medical Decision Making Medical Decision Making MDM Narrative: 58-year-old female past medical history of asthma, CHF, CAD, depression, ESRD on HD (M/W/F), HTN, HLD, AMARJIT, diabetes, presenting to the ED via EMS complaining of acute on chronic bilateral wrist/hand pain and tingling > RUE. Also reports acute on chronic left hip pain with difficulty ambulating x months, intermittent room spinning dizziness, nausea, emesis x1. On exam vital signs stable woman NAD, nontoxic appearing, no focal neuro deficits, lungs CTA, abdomen soft/nontender, physical exam as above, left hip with mild tenderness and pain with ROM. No deformity. Bilateral positive Tinel's and Phalen sign. Concern for diabetic neuropathy and carpal tunnel syndrome vs arthritis your low suspicion for fracture, septic joint/arthritis. Dizziness suspected to be secondary to post dialysis. Rule out atypical ACS. Lower suspicion for CVA/TIA, or ICH. Plan: EKG, labs, UA, hip x-ray, meclizine, p.o. oxycodone, Zofran, re-evaluate Please refer to course for remaining clinical decision making, interpretation of labs/imaging results, and discussions with consultants and/or family members. Differential Diagnosis Differential Diagnoses: The differential diagnosis associated with the presentation includes As above Admission/Observation Consideration of admission/observation: Escalation of care including admission/observation considered Lab Data MDM Lab Attestation statement: I reviewed the patient's lab results. 03/06/23 17:20 03/06/23 17:20 Labs: Lab Results 03/06/23 Range/Units 17:20 WBC 6.3 (4.8-10.8) X10*3/uL RBC 3.71 L (4.20-5.50) X10*6/uL Hgb 11.6 L (12.0-16.0) g/dl Hct 35.1 L (37.0-47.0) % MCV 94.6 (80.0-98.0) fL MCH 31.3 (27.0-33.0) pg MCHC 33.0 (31.0-35.0) g/dl RDW 14.8 (11.0-16.0) % Plt Count 187 (160-400) X10*3/uL MPV 12.1 (9.4-12.3) fL Immature Gran % (Auto) 0.5 H (0.0-0.4) % Neut % (Auto) 67.5 (45-73) % Lymph % (Auto) 18.7 L (20-40) % Carroll % (Auto) 5.4 (2-11) % Eos % (Auto) 7.1 H (0-4) % Baso % (Auto) 0.8 (0-2) % Lymph # (Auto) 1.2 (1.2-4.9) X10*3/uL Carroll # (Auto) 0.3 (0.1-1.2) X10*3/uL Eos # (Auto) 0.5 H (0.0-0.4) X10*3/uL Baso # (Auto) 0.1 (0.0-0.2) X10*3/uL Abs Immat Gran (auto) 0.03 (0.00-0.03) X10*3/uL Absolute Neuts (auto) 4.3 (2.0-8.3) x10*3/uL Absolute Nucleated RBC 0.000 (0.0-0.012) X10*3/uL Nucleated RBC % (auto) 0.0 (0.0-0.2) /100WBC Smear Tech's Comments VERIFIED Sodium 139 (135-145) mmol/L Potassium 3.8 (3.3-5.1) mmol/L Chloride 95 L (96-108) mmol/L Carbon Dioxide 29 (22-29) mmol/L Anion Gap 19 (12-20) BUN 26 H (9-16) mg/dL Creatinine 3.93 H (0.5-1.4) mg/dL Estim Creat Clear Calc 17.3 Estimated GFR 12 Random Glucose 235 H (60-115) mg/dL Calcium 9.6 D (8.4-10.2) mg/dL Magnesium 2.2 (1.6-2.6) mg/dL Total Bilirubin 0.5 (0.0-1.0) mg/dL Direct Bilirubin 0.2 (0.0-0.5) mg/dL AST 19 (5-31) U/L ALT 17 (0-31) U/L Alkaline Phosphatase 130 H (39-117) U/L Troponin I High Sens 41.7 H (<3.5-17.0) ng/L Total Protein 8.1 H (6.5-8.0) g/dL Albumin 3.9 (3.5-5.0) g/dL Lipase 13 (8-78) U/L Independent Interpretation I performed an independent interpretation of an: EKG and Plain X-Ray Radiology Impression Discussion of test interpretation with radiology: I have reviewed the radiologist's reading. Independent Historian Clinical information obtained from an independent historian. History obtained from or confirmed by: EMS External Record Review External record reviewed: Inpatient record, Office record, Outpatient record, Prior outpatient labs, Prior outpatient radiology, Primary care record and Outside ED record Tests considered The following testing was considered but not selected: As above Prescription Management I considered prescription management with: Pain Medication Chronic Conditions Patient?s care impacted by: Diabetes Discharge Plan Discharge Clinical Impression: Carpal tunnel syndrome, Chronic left hip pain Patient Disposition: Home, Self-Care Instructions: Arthralgia (ED), Carpal Tunnel Surgery (DC) Additional Instructions: Your blood work was reassuring. Your hip x-ray shows arthritic changes You need to wear wrist splints for carpal tunnel syndrome, especially at night Please follow-up with orthopedics and your primary care doctor If symptoms persist or worsen return to the ED Tramadol as an opiate pain medication, take only when pain is severe for the next 3 days Prescriptions: New tramadol 50 mg tablet 50 mg PO Q8H PRN (Reason: pain, severe) Qty: 5 0RF No Action (DME) blood-glucose meter [FreeStyle Lite Meter] Kit See Rx Instructions .ROUTE .MEDSUPPLY Qty: 1 0RF Rx Instructions: As directed amlodipine 10 mg tablet 10 mg PO QAM 90 Days Qty: 90 3RF Eliquis 5 mg tablet 5 mg PO BID 90 Days Qty: 180 3RF lisinopril 10 mg tablet 10 mg PO BEDTIME 90 Days Qty: 90 3RF (DME) FreeStyle Lite Strips Strip See Rx Instructions .ROUTE .MEDSUPPLY Qty: 100 11RF Rx Instructions: As directed four times a day (DME) lancets [TRUEplus Lancets] 33 gauge misc See Rx Instructions .ROUTE .COMPLEX Qty: 100 11RF Dose Instruction: TEST BLOOD SUGAR FOUR TIMES DAILY Rx Instructions: TEST BLOOD SUGAR FOUR TIMES DAILY (DME) pen needle, diabetic [BD Ultra-Fine Micro Pen Needle] 32 gauge x 1/4 needle See Rx Instructions .ROUTE .MEDSUPPLY Qty: 150 11RF Rx Instructions: As directed 4 times a day Toujeo Max U-300 SoloStar 300 unit/mL (3 mL) insulin pen 28 unit subcut DAILY 30 Days Qty: 6 6RF Januvia 25 mg tablet 25 mg PO QAM Qty: 30 6RF insulin lispro 100 unit/mL insulin pen See Rx Instructions subcut .COMPLEX Qty: 15 5RF Rx Instructions: Inject 8-14 units prior to meals subcutaneously; levothyroxine 25 mcg tablet 1 tab PO QAM hydralazine 50 mg tablet 1 tab PO TID@0900,1200,1800 gabapentin 100 mg capsule 200 mg PO BID melatonin 5 mg tablet 5 mg PO BEDTIME atorvastatin 40 mg tablet 40 mg PO DAILY sevelamer carbonate 800 mg tablet 800 mg PO TIDAC aspirin 81 mg tablet,delayed release (DR/EC) 1 tab PO DAILY cholecalciferol (vitamin D3) 50 mcg (2,000 unit) capsule 1 cap PO QAM metoprolol tartrate 50 mg tablet 50 mg PO Q12H Qty: 60 0RF cephalexin 500 mg capsule 500 mg PO BID Qty: 20 0RF tramadol 50 mg tablet 50 mg PO BID PRN (Reason: pain) Qty: 7 0RF (DME) Dexcom G6 Manager Of Purchasing Misc See Rx Instructions .Route Qty: 1 0RF Rx Instructions: As directed (DME) Dexcom G6 Sensor Device See Rx Instructions .Route Qty: 3 5RF Rx Instructions: As directed change every 10 days (DME) Dexcom G6 Transmitter Device See Rx Instructions .Route Qty: 1 0RF Rx Instructions: As directed chlorhexidine gluconate [Hibiclens] 4 % liquid 1 appl topical .COMPLEX Qty: 473 3RF Rx Instructions: 1 appl topically lather in shower every 3-4 days, leave on skin for 1 monute before rinsing; doxycycline hyclate 100 mg tablet 100 mg PO BID 30 Days Qty: 60 3RF Referrals: [facility] [place] [facility] [Provider Group] - 5 days [facility] [Primary Care Provider] - Interventions: ED Discharge Assessment Last Done: 03/06/23 19:42 Discharge Date/Time: 03/06/23 19:42
[2023-03-06 16:02] VITALS: BP 120/84; PULSE 59; O2SAT 97; BMI 37.2
--- NOTE | 2023-03-06 16:17 | ECG_ITS ---
Test Reason : weakness Blood Pressure : / mmHG Vent. Rate : 058 BPM Atrial Rate : 058 BPM P-R Int : 246 ms QRS Dur : 090 ms QT Int : 476 ms P-R-T Axes : 029 006 076 degrees QTc Int : 467 ms Sinus bradycardia with 1st degree A-V block Anterolateral infarct (cited on or before 27-JUN-2021) Nonspecific ST abnormality Lateral leads Abnormal ECG When compared with ECG of 22-NOV-2021 01:21, ST more depressed Lateral leads Referred By: Tresa Morse Electronically Signed By:YOGI SU MD
[2023-03-06] MEDS: Ondansetron ODT 4 MG TAB.RAPDIS TRANSLINGU (16:42)
[2023-03-06] MEDS: oxyCODONE HCl Immed Release 5 MG TABLET PO (16:42)
[2023-03-06 17:04] VITALS: BP 117/46; PULSE 58; RESP 15; O2SAT 98
[2023-03-06 17:34] LABS: Basophils Absolute Auto 0.1 X10*3/uL (0.0-0.2); Basophils Percent Auto 0.8 % (0-2); Eosinophils Absolute Auto 0.5 X10*3/uL (0.0-0.4); Eosinophils Percent Auto 7.1 % (0-4); Hematocrit 35.1 % (37.0-47.0); Hemoglobin 11.6 g/dl (12.0-16.0); Imm Gran Abs Auto 0.03 X10*3/uL (0.00-0.03); Imm Gran Pct Auto 0.5 % (0.0-0.4); Lymphocytes Absolute Auto 1.2 X10*3/uL (1.2-4.9); Lymphocytes Percent Auto 18.7 % (20-40); MANUAL DIFF FLAG SCAN; Mean Corpuscular Hemoglobin 31.3 pg (27.0-33.0); Mean Corpuscular Volume 94.6 fL (80.0-98.0); Mean Platelet Volume 12.1 fL (9.4-12.3); Monocytes Absolute Auto 0.3 X10*3/uL (0.1-1.2); Monocytes Percent Auto 5.4 % (2-11); Neutrophils Absolute Auto 4.3 x10*3/uL (2.0-8.3); Neutrophils Percent Auto 67.5 % (45-73); PLT CLUMP 1; Red Blood Count 3.71 X10*6/uL (4.20-5.50); Red Cell Distribution Width 14.8 % (11.0-16.0); SCAN SMEAR FLAG 1
[2023-03-06 17:36] LABS: White Blood Count 6.3 X10*3/uL (4.8-10.8)
[2023-03-06] MEDS: Meclizine HCl 25 MG TABLET PO (17:36)
--- NOTE | 2023-03-06 17:37 | PC.NURSE ---
pt aox3, reporting bilat wrist pain and tingling d/t carple tunnel and neuropathy. medicated for pain for mar, and with meclazine for dizziness. pt rated pain 1t / before pain med and now 12/01. pt was a dialysis today - fistula on left upper arm.
[2023-03-06 17:41] VITALS: BP 133/55; PULSE 57; RESP 12; O2SAT 98
[2023-03-06 17:51] LABS: Alanine Aminotransferase 17 U/L (0-31); Albumin Level 3.9 g/dL (3.5-5.0); Alkaline Phosphatase 130 U/L (39-117); Anion Gap 19 (12-20); Aspartate Amino Transferase 19 U/L (5-31); Bilirubin Direct 0.2 mg/dL (0.0-0.5); Bilirubin Total 0.5 mg/dL (0.0-1.0); Blood Urea Nitrogen 26 mg/dL (9-16); Calcium 9.6 mg/dL (8.4-10.2); Carbon Dioxide 29 mmol/L (22-29); Chloride 95 mmol/L (96-108); Creatinine Clr Calc Pharmacy 17.3; Estimated Glomerular Filt Rate 12; Glucose Random 235 mg/dL (60-115); Lipase 13 U/L (8-78); Magnesium 2.2 mg/dL (1.6-2.6); Platelet Count 187 X10*3/uL (160-400); Potassium 3.8 mmol/L (3.3-5.1); Sodium 139 mmol/L (135-145); Total Protein 8.1 g/dL (6.5-8.0)
[2023-03-06 17:52] LABS: SLIDE REVIEW VERIFIED
[2023-03-06 17:57] LABS: Troponin-I High Sensitivity 41.7 ng/L (<3.5-17.0)
== END 2023-03-06 19:42 | disposition home or self-care (01) ==
PROVIDERS: Physician Assistant; Emergency Provider Emergency Medicine
DX: G56.03 Carpal tunnel syndrome, bilateral upper limbs (principal); G89.29 Other chronic pain; M25.552 Pain in left hip; E11.22 Type 2 diabetes mellitus with diabetic chronic kidney disease; I13.2 Hypertensive heart and chronic kidney disease with heart failure and with stage 5 chronic kidney disease, or end stage renal disease; I50.9 Heart failure, unspecified; N18.6 End stage renal disease; Z99.2 Dependence on renal dialysis; I48.92 Unspecified atrial flutter; E78.5 Hyperlipidemia, unspecified; Z79.4 Long term (current) use of insulin; Z79.82 Long term (current) use of aspirin; Z79.899 Other long term (current) drug therapy
CPT/HCPCS: 36415; 73502; 80048; 80076; 83690; 83735; 84484; 85025; 93005; 99284; 99285

== ENCOUNTER 2023-03-17 15:14 | Outpatient (AMB) | payer MEDICAID, SELFPAY ==
[2023-03-17 15:16] VITALS: BP 142/66; PULSE 70; O2SAT 97; BMI 38.7
--- NOTE | 2023-03-17 15:16 | A.OFFVIS_ITS ---
Intake Vital Signs 03/17/23 15:16 Height 5 ft 3 in Weight 218 lb 7.396 oz BMI 38.7 BP 142/66 H Blood Pressure Location Rt brachial Position Sitting Pulse 70 Pulse Source Doppler Pulse Oximetry (%) 97 Oxygen Delivery Method Room Air Intake Visit Reasons: recert.[employer] Allergies No Known Allergies [No Known Allergies*] Allergy (Verified 03/17/23 15:21) HPI recert.[employer] HPI Details 58-year-old lady with underlying severe obstructive sleep apnea with respiratory event index of 55. Now with significantly improved symptoms while on CPAP therapy. She denies any sleep related concerns or complaints. 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 Paroxysmal atrial flutter Dysphonia Chronic cough Urinary frequency Dyspnea on exertion Unstable gait Asthma Chronic low back pain without sciatica Osteoarthritis of both knees Kidney stones Depression AMARJIT (obstructive sleep apnea) Normocytic anemia ESRD needing dialysis CHF (congestive heart failure) Obesity due to excess calories CAD (coronary artery disease) GERD (gastroesophageal reflux disease) Thyroid disease AV fistula HLD (hyperlipidemia) ESRD (end stage renal disease) T2DM (type 2 diabetes mellitus) End stage renal disease on dialysis Dialysis patient Renal failure (ARF), acute on chronic HTN (hypertension) Surgical History History of kidney surgery Hx of cholecystectomy Hx of bone graft Family History Father CVD (cardiovascular disease) Diabetes Mother Diabetes Sister Stomach cancer Social History Household Members: Family Housing: House Do you presently have visiting nurse or other home services: No Unable to assess alcohol history related to: Unknown Alcohol intake: never Patient Tobacco Use Status: Never used Tobacco Advance Directives Date on File: 02/15/21 service: No Current occupational status: disabled Current occupation: right hand dominant Review of Systems Const Denies daytime sleepiness, Denies excessive sweating, Denies fatigue, Denies fever(s), Denies lethargy, Denies malaise, Denies night sweats, Denies snoring and Denies weight loss Eyes Denies blurry vision and Denies itchy eyes ENT Denies nasal congestion, Denies post nasal drip, Denies sinus pain, Denies sinus pressure and Denies other ( Thrush) Card Denies chest pain, Denies pedal edema, Denies dyspnea, Denies orthopnea and Denies paroxysmal nocturnal dyspnea Resp Denies cough, Denies hemoptysis, Denies excessive phlegm production, Denies dyspnea, Denies snoring and Denies wheezing GI Denies abdominal pain and Denies heartburn Musc Denies myalgias, Denies arthralgias and Denies joint swelling Skin/Breast Denies rash Neuro Denies memory loss and Denies seizure-like activity Psych Denies abnormal sleep pattern, Denies anxiety and Denies memory loss Endo Denies excessive sweating, Denies fatigue and Denies heat intolerance Billy/Lymph Denies easy bruising Aller/Immun Denies itchy eyes, Denies seasonal rhinorrhea and Denies wheezing Physical Exam Vital Signs: Last Vital Signs Pulse 70 03/17/23 15:16 BP 142/66 H 03/17/23 15:16 Pulse Ox 97 03/17/23 15:16 Oxygen Delivery Method Room Air 03/17/23 15:16 BMI result Body Mass Index 38.7 Const General: no acute distress and alert Nutritional Appearance: obese Orientation/consciousness: Other orientation findings ( oriented) HEENT Head: Yes atraumatic Eyes General: appearance normal, both eyes and all related structures Sclerae: sclerae normal EOM: EOMs intact bilaterally Neck Neck: Yes supple Lymphatic: no lymphadenopathy noted Resp Effort & Inspection: normal respiratory effort and no use of accessory muscles Auscultation: clear to auscultation bilaterally Cardio Rate: regular rate Rhythm: regular rhythm Heart sounds: no gallops, no murmurs and no rubs Skin General skin exam: other ( warm) Extrem General: No clubbing, No cyanosis and No edema Assessment & Plan Assessment & Plan (1) AMARJIT on CPAP: Code(s): G47.33 - Obstructive sleep apnea (adult) (pediatric) Plan: Therapy and compliance report reviewed - patient is benefitting from, though is suboptimally compliant with her current CPAP therapy. Patient has been encouraged to be more compliant with her CPAP therapy. Coding Level of Care Code Est Pt Level 3 (11615) Diagnoses AMARJIT on CPAP G47.33
== END 2023-03-17 15:34 | disposition home or self-care (01) ==
PROVIDERS: PCP Internal Medicine; Visit Provider Internal Medicine Pulmonary Disease
DX: G47.33 Obstructive sleep apnea (adult) (pediatric) (principal)
CPT/HCPCS: 99213

== ENCOUNTER → 2023-03-17 15:14 | Outpatient (BNVA) | payer MEDICAID, SELFPAY | PROVIDERS: PCP Internal Medicine; Visit Provider Internal Medicine Pulmonary Disease | DX: G47.33 Obstructive sleep apnea (adult) (pediatric) (principal) | CPT/HCPCS: 99212 ==

== ENCOUNTER 2023-04-02 09:13 | Outpatient (REF) | payer MEDICAID, SELFPAY ==
--- NOTE | ~2023-04-02 | XR_ITS ---
EXAMINATION: XR FOOT, LEFT CLINICAL INFORMATION: Pain in left foot COMPARISON: None available. TECHNIQUE: AP, lateral, and oblique views of the left foot. FINDINGS: The bones are intact. No fracture. Alignment is anatomic. Joint spaces are maintained. There is flattening of the heads of the first, second and third metatarsals. There is a small bony spur extending off the lateral base of the proximal phalanx of the great toe. Arterial calcifications are seen. There is small posterior plantar calcaneal spurs and a large Achilles enthesophyte. XR/XR foot LT 2V IMPRESSION: 1. No acute bony abnormality. 2. Flattening of the heads of the first, second and third metatarsals. 3. Calcaneal spurs.
--- NOTE | ~2023-04-02 | XR_ITS ---
EXAMINATION: XR FOOT, RIGHT CLINICAL INFORMATION: Pain in right foot COMPARISON: None available. TECHNIQUE: AP, lateral, and oblique views of the right foot. FINDINGS: The bones are intact. Small accessory ossicle is seen adjacent to the tip of the lateral malleolus. No fracture. Alignment is anatomic. Joint spaces are maintained. Arterial calcifications are seen. There are small posterior plantar calcaneal spurs and a large Achilles enthesophyte. XR/XR foot RT 2V IMPRESSION: 1. No acute bony abnormality. 2. Calcaneal spurs.
== END 2023-04-02 09:14 | disposition home or self-care (01) ==
LOC: HO.HOSX 09:13
PROVIDERS: Visit Provider Physical Medicine & Rehabilitation
DX: M16.0 Bilateral primary osteoarthritis of hip (principal); M54.59 Other low back pain; M79.671 Pain in right foot; M79.672 Pain in left foot
CPT/HCPCS: 73620; 99212

== ENCOUNTER 2023-04-02 09:13 | Outpatient (AMB) | payer MEDICAID, SELFPAY ==
[2023-04-02 09:23] VITALS: BMI 38.6
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
== END 2023-04-02 10:05 | disposition home or self-care (01) ==
PROVIDERS: Visit Provider Physical Medicine & Rehabilitation
DX: M16.0 Bilateral primary osteoarthritis of hip (principal); M54.59 Other low back pain
CPT/HCPCS: 99214

== ENCOUNTER 2023-04-07 18:56 | Outpatient (REF) | payer MEDICAID, SELFPAY | END 2023-04-07 18:57 | disposition home or self-care (01) | LOC: HO.HHCLNP 18:56 | PROVIDERS: Visit Provider Internal Medicine | DX: N89.8 Other specified noninflammatory disorders of vagina (principal) | CPT/HCPCS: 36415; 81513 ==

== ENCOUNTER 2023-05-03 14:54 | Emergency (ER) | payer MEDICAID, SELFPAY ==
--- NOTE | ~2023-05-03 | XR_ITS ---
Examination: Cervical spine and chest. CLINICAL INDICATION: Neck pain. COMPARISON: CT chest 05/01/2022. TECHNIQUE: Chest 2 views and cervical spine 5 views. FINDINGS: CHEST: The lungs are well-expanded and clear acute pneumonic process. The heart size is enlarged. Pulmonary vascularity is normal. No gross bony abnormality seen. CERVICAL SPINE: There is mild straightening of cervical lordosis. The vertebral heights and alignment is normal. There is mild loss of C4-C5, C5-C6, C6-C7 and C7-T1 disc levels with moderate ventral bridging osteophytes from C2-C3 through C6 vertebra. No aggressive lytic or sclerotic process seen. XR/XR cervical spine 2V IMPRESSION: 1. Mild cardiomegaly. 2. No acute cardiopulmonary process seen. 3. Degenerative disc changes with moderate ventral bridging osteophytes from C2-C3 through and C5-C6 disc level.
--- NOTE | ~2023-05-03 | XR_ITS ---
Examination: Cervical spine and chest. CLINICAL INDICATION: Neck pain. COMPARISON: CT chest 05/01/2022. TECHNIQUE: Chest 2 views and cervical spine 5 views. FINDINGS: CHEST: The lungs are well-expanded and clear acute pneumonic process. The heart size is enlarged. Pulmonary vascularity is normal. No gross bony abnormality seen. CERVICAL SPINE: There is mild straightening of cervical lordosis. The vertebral heights and alignment is normal. There is mild loss of C4-C5, C5-C6, C6-C7 and C7-T1 disc levels with moderate ventral bridging osteophytes from C2-C3 through C6 vertebra. No aggressive lytic or sclerotic process seen. XR/XR chest 2V IMPRESSION: 1. Mild cardiomegaly. 2. No acute cardiopulmonary process seen. 3. Degenerative disc changes with moderate ventral bridging osteophytes from C2-C3 through and C5-C6 disc level.
[2023-05-03 15:00] VITALS: BP 160/76; PULSE 70; O2SAT 97
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
[2023-05-03 15:43] VITALS: BP 175/56; PULSE 67; RESP 16; TEMP 36.3; O2SAT 96; BMI 37.2
--- NOTE | 2023-05-03 15:44 | ECG_ITS ---
Test Reason : NECK PAIN Blood Pressure : / mmHG Vent. Rate : 068 BPM Atrial Rate : 068 BPM P-R Int : 242 ms QRS Dur : 088 ms QT Int : 418 ms P-R-T Axes : 019 019 046 degrees QTc Int : 444 ms Sinus rhythm with 1st degree A-V block Anterolateral infarct (cited on or before 27-JUN-2021) Abnormal ECG When compared with ECG of 06-MAR-2023 16:56, No significant change was found Referred By: Kailey Celeste Electronically Signed By:Elías Maddox
[2023-05-03 16:36] LABS: MANUAL DIFF FLAG NO
[2023-05-03 16:37] LABS: Basophils Percent Auto 0.5 % (0-2); Eosinophils Absolute Auto 0.4 X10*3/uL (0.0-0.4); Eosinophils Percent Auto 5.4 % (0-4); Hemoglobin 9.7 g/dl (12.0-16.0); Imm Gran Abs Auto 0.04 X10*3/uL (0.00-0.03); Imm Gran Pct Auto 0.5 % (0.0-0.4); Lymphocytes Absolute Auto 1.5 X10*3/uL (1.2-4.9); Mean Corpuscular HGB Conc 33.4 g/dl (31.0-35.0); Mean Corpuscular Hemoglobin 31.8 pg (27.0-33.0); Mean Corpuscular Volume 95.1 fL (80.0-98.0); Mean Platelet Volume 12.2 fL (9.4-12.3); Monocytes Absolute Auto 0.4 X10*3/uL (0.1-1.2); Monocytes Percent Auto 5.1 % (2-11); Neutrophils Absolute Auto 5.1 x10*3/uL (2.0-8.3); Neutrophils Percent Auto 68.5 % (45-73); Platelet Count 169 X10*3/uL (160-400); Red Blood Count 3.05 X10*6/uL (4.20-5.50); Red Cell Distribution Width 14.9 % (11.0-16.0); White Blood Count 7.4 X10*3/uL (4.8-10.8)
[2023-05-03 17:23] LABS: Alanine Aminotransferase 10 U/L (0-31); Albumin Level 3.9 g/dL (3.5-5.0); Alkaline Phosphatase 128 U/L (39-117); Anion Gap 18 (12-20); Aspartate Amino Transferase 10 U/L (5-31); Bilirubin Direct 0.3 mg/dL (0.0-0.5); Bilirubin Total 0.7 mg/dL (0.0-1.0); Blood Urea Nitrogen 50 mg/dL (9-16); Carbon Dioxide 27 mmol/L (22-29); Chloride 94 mmol/L (96-108); Estimated Glomerular Filt Rate 6; Glucose Random 489 mg/dL (60-115); Potassium 4.6 mmol/L (3.3-5.1); Sodium 134 mmol/L (135-145); Total Protein 7.9 g/dL (6.5-8.0)
[2023-05-03 17:24] LABS: Troponin-I High Sensitivity 61.9 ng/L (<3.5-17.0)
[2023-05-03 19:57] VITALS: BP 175/58; PULSE 70; RESP 16; TEMP 36.9; O2SAT 98
[2023-05-03] MEDS: oxyCODONE HCl Immed Release 5 MG TABLET PO (19:58)
[2023-05-03] MEDS: Insulin Lispro 100 UNIT/ML 3 ML VIAL SUBCUT (19:58)
[2023-05-03 20:09] LABS: Glucose, Whole Blood 364 mg/dL (60-115)
[2023-05-03 20:12] LABS: Appearance Urine Cloudy; Color Urine Yellow; Glucose Urine UA >=1000 mg/dL (Negative); Leukocyte Esterase Urine Moderate (2+) (Negative); Nitrite Urine Negative (Negative); PH 8.5 (5.0-9.0); Specific Gravity - Urine 1.015 (1.005-1.025); UMIC TRIGGER UACC YES; Urine Blood Negative (Negative); Urine Ketones Negative (Negative); Urine Protein 100 (2+) mg/dL (Neg-Trace)
[2023-05-03 20:20] LABS: Bacteria Urine 4+ (None Seen); Hyaline Casts Urine 0-2 /LPF (0-2); UACC Culture Trigger YES; WBC Urine >50 /HPF (0-5)
[2023-05-03 20:31] LABS: Troponin-I High Sensitivity 67.2 ng/L (<3.5-17.0)
[2023-05-03] MEDS: cefuroxime axetiL 250 MG TABLET PO (20:49)
== END 2023-05-03 21:14 | disposition home or self-care (01) ==
PROVIDERS: Nurse Practitioner Family; Emergency Provider Emergency Medicine; PCP Internal Medicine
DX: M54.2 Cervicalgia (principal); N39.0 Urinary tract infection, site not specified; B96.20 Unspecified Escherichia coli [E. coli] as the cause of diseases classified elsewhere; R60.0 Localized edema; E11.22 Type 2 diabetes mellitus with diabetic chronic kidney disease; I13.2 Hypertensive heart and chronic kidney disease with heart failure and with stage 5 chronic kidney disease, or end stage renal disease; I50.9 Heart failure, unspecified; N18.6 End stage renal disease; Z99.2 Dependence on renal dialysis; I48.0 Paroxysmal atrial fibrillation; Z79.01 Long term (current) use of anticoagulants; Z79.899 Other long term (current) drug therapy; Z79.4 Long term (current) use of insulin
CPT/HCPCS: 36415; 71046; 72040; 80048; 80076; 81001; 82947; 84484; 85025; 87086; 87088; 87186; 93005; 99283; 99285

== ENCOUNTER → 2023-05-03 15:44 | Outpatient (BNV) | payer MEDICAID, SELFPAY | PROVIDERS: Emergency Provider Emergency Medicine; PCP Internal Medicine; Visit Provider Internal Medicine Cardiovascular Disease | DX: I44.0 Atrioventricular block, first degree (principal); R94.31 Abnormal electrocardiogram [ECG] [EKG] | CPT/HCPCS: 93010 ==

== ENCOUNTER 2023-05-14 14:55 | Outpatient (RCR) | payer MEDICAID, SELFPAY ==
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
--- NOTE | 2023-05-29 10:39 | MHC.PT.DC ---
[facility] [place] Office [place] Office [place] Office [address] Lydia Baltazar [address] [facility] [phone] F: [phone] F: [phone] F: [phone] F: [phone] Physical Therapy Discharge Report Diagnosis: LBP, OA of HIP, Pain in R foot Date of Surgery: Date of Evaluation: 05/14/23 Date of Discharge: 05/29/23 Treatments to Date: 1 Cancellations to Date: 1 No Shows to Date: 2 Discharge Status: Visit Non-compliance Discharge Summary: D/c d/t noncompliance with scheduling policy Electronically signed by: Janie Malcolm PT Please sign and return to therapist. Thank you for your referral.
== END 2023-05-29 10:39 | disposition home or self-care (01) ==
LOC: HO.PT 14:55
PROVIDERS: PCP Internal Medicine; Visit Provider Physical Medicine & Rehabilitation
DX: M54.59 Other low back pain (principal); M16.0 Bilateral primary osteoarthritis of hip; M79.671 Pain in right foot
CPT/HCPCS: 97162

== ENCOUNTER 2023-06-02 12:22 | Outpatient (AMB) | payer MEDICAID, SELFPAY ==
[2023-06-02 12:27] VITALS: BMI 37.2
--- NOTE | 2023-06-02 12:27 | MHC.OFFVIS ---
Intake Vital Signs 06/02/23 12:27 Height 5 ft 3 in Weight 210 lb BMI 37.2 Intake Visit Reasons: OV- Discuss surgery CTS Intake Note: Sarah 58 yr old female presents today for her follow up visit to discuss carpal tunnel release surgery. Reports her pain radiates down her fingers to elbow and will have numbness/tingling with holding items. Difficulty with closing fist, gripping objects and will frequently drops items. No previous tx EMG done with Dr. Sosa. Allergies No Known Allergies [No Known Allergies*] Allergy (Verified 06/02/23 12:27) HPI OV- Discuss surgery CTS HPI Details Sarah is a 58 year old Kyrgyz speaking woman who presents for an NCS review of her bilateral hand numbness. She complains of numbness in her thumb, index, and middle fingers bilaterally, R>L. She says she has constant numbness in her right index finger, and her symptoms are worse at night. She says she has difficulty grasping and holding objects, she says this worsens her numbness and she often drops what she is holding. She also complains of pain in her right middle finger, and says this locks occasionally. She is on Eliquis and Oxycodone. She is a Diabetic and does not have a recent HgA1c. 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 Paroxysmal atrial flutter Dysphonia Chronic cough Urinary frequency Dyspnea on exertion Unstable gait Asthma Chronic low back pain without sciatica Osteoarthritis of both knees Kidney stones Depression AMARJIT (obstructive sleep apnea) Normocytic anemia ESRD needing dialysis CHF (congestive heart failure) Obesity due to excess calories CAD (coronary artery disease) GERD (gastroesophageal reflux disease) Thyroid disease AV fistula HLD (hyperlipidemia) ESRD (end stage renal disease) T2DM (type 2 diabetes mellitus) End stage renal disease on dialysis Dialysis patient Renal failure (ARF), acute on chronic HTN (hypertension) Surgical History History of kidney surgery Hx of cholecystectomy Hx of bone graft Family History Father CVD (cardiovascular disease) Diabetes Mother Diabetes Sister Stomach cancer Social History Household Members: Family Housing: House Do you presently have visiting nurse or other home services: No Unable to assess alcohol history related to: Unknown Alcohol intake: never Patient Tobacco Use Status: Never used Tobacco Advance Directives Date on File: 02/15/21 service: No Current occupational status: disabled Current occupation: right hand dominant Review of Systems Const All systems reviewed & are unremarkable except as noted in HPI and below Physical Exam Vital Signs: BMI result Body Mass Index 37.2 Const General: cooperative, healthy appearing and no acute distress Orientation/consciousness: patient oriented x3 HEENT Head: Yes normocephalic and Yes atraumatic Eyes EOM: EOMs intact bilaterally Resp Effort & Inspection: normal respiratory effort and able to speak in complete sentences Cardio Jugular venous distension: no JVD Skin General skin exam: turgor normal Rashes: no rashes Neuro General: patient oriented x3 Extrem Other: Evaluation of Bilateral Upper Extremity: The patient is alert, oriented, and in no acute distress Neuro: Dense numbness in the right index finger, normal sensation to the other digits. Decreased subjective sensation in the median nerve distribution of the left hand. Normal sensation in the ulnar nerve distribution bilaterally No thenar or intrinsic wasting Week APB muscle belly firing and good finger cross Vascular: Cap refill brisk ROM: Initially she could bring her right fingers ~4-5cm from her palm After working on exercises, before leaving clinic, she could bring her fingers almost to her palm and flat on the table She is tender over the right middle finger a1 ronny Better ROM of her left hand Skin: No lacerations or abrasions. General: No Ecchymosis. No Erythema or evidence of infection. Nerve Conduction Study: IMPRESSION: 1. This is an abnormal study. 2. There is electrodiagnostic evidence for bilateral median neuropathy at the wrists, bilateral ulnar neuropathy at the elbow, in the setting of peripheral neuropathy.. 3. There is no electrodiagnostic for cervical radiculopathy. 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 Right Carpal tunnel syndrome A positive on nerve conduction study Symptoms intermittent but daily, worse at night Dense numbness in the index finger I educated her about this condition I discussed operative and non-operative treatment options I think she would benefit from a carpal tunnel release, but her Diabetes is not well-controlled at this time Her most recent HgA1c was 9.2% on 09/11/22. We will need an updated HGA1c <8.0% in order to proceed with surgery She is on Eliquis for CAD and takes Oxycodone & Tramadol. She is on Dialysis due to renal failure She can wear her velcro wrist splint at night She can follow up to discuss treatment options when her Diabetes is better controlled 2. Right Cubital tunnel syndrome Seen on NCS Patient reports asymptomatic She will be vigilant for any numbness in her small finger 3. Right middle finger trigger finger May have led to related right hand stiffness Tender over A1 ronny 4. Uncontrolled Diabetes Her most recent HgA1c was 9.2% on 09/11/22. 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 Left Carpal tunnel syndrome Symptoms intermittent and occasional Some decreased sensation in the median nerve distribution today in clinic. 6. Left Cubital tunnel syndrome Seen on NCS Patient reports asymptomatic She will be vigilant for any numbness in her small finger Please note that greater than 40 minutes was spent with this patient going over the history, evaluating the patient and radiographs, formulating possible treatment options, discussing them with the patient, and documenting the visit. Scribed for Jeni Santillan MD by Moises Card, expert medical writer, on 06/02/23 at 1:40 PM, EST. 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
== END 2023-06-02 13:50 | disposition home or self-care (01) ==
PROVIDERS: PCP Internal Medicine; Referring Provider Internal Medicine; Visit Provider Orthopaedic Surgery
DX: G56.03 Carpal tunnel syndrome, bilateral upper limbs (principal); M65.331 Trigger finger, right middle finger; G56.23 Lesion of ulnar nerve, bilateral upper limbs; M25.641 Stiffness of right hand, not elsewhere classified; E11.22 Type 2 diabetes mellitus with diabetic chronic kidney disease
CPT/HCPCS: 99204

== ENCOUNTER → 2023-06-02 12:22 | Outpatient (BNVA) | payer MEDICAID, SELFPAY | PROVIDERS: Visit Provider Orthopaedic Surgery | DX: G56.03 Carpal tunnel syndrome, bilateral upper limbs (principal); G56.23 Lesion of ulnar nerve, bilateral upper limbs; E11.22 Type 2 diabetes mellitus with diabetic chronic kidney disease; N18.6 End stage renal disease; I25.10 Atherosclerotic heart disease of native coronary artery without angina pectoris; M25.641 Stiffness of right hand, not elsewhere classified; M65.331 Trigger finger, right middle finger | CPT/HCPCS: 99202 ==

== ENCOUNTER 2023-07-16 10:50 | Outpatient (REF) | payer MEDICAID, SELFPAY | END 2023-07-16 10:51 | disposition home or self-care (01) | LOC: HO.MAMMO 10:50 | PROVIDERS: PCP Internal Medicine; Visit Provider Internal Medicine | DX: Z12.31 Encounter for screening mammogram for malignant neoplasm of breast (principal) | CPT/HCPCS: 77063; 77067 ==

== ENCOUNTER → 2023-07-16 11:00 | Outpatient (BNV) | payer MEDICAID, SELFPAY | PROVIDERS: PCP Internal Medicine; Visit Provider Radiology Diagnostic Radiology | DX: Z12.31 Encounter for screening mammogram for malignant neoplasm of breast (principal) | CPT/HCPCS: 77063; 77067 ==

== ENCOUNTER 2023-08-02 18:12 | Emergency (ER) | payer MEDICAID, SELFPAY ==
--- NOTE | ~2023-08-02 | CT_ITS ---
EXAMINATION: CT HEAD WITHOUT CONTRAST CT CERVICAL SPINE WITHOUT CONTRAST CLINICAL INFORMATION: Fall. Patient on Eliquis. Pain. COMPARISON: CT head and cervical spine from 11/07/2020. TECHNIQUE: Contiguous axial imaging was performed from the skull base to vertex without intravenous administration of contrast. Contiguous axial imaging was performed from the upper chest through the skull base without intravenous administration of contrast. Coronal and sagittal reformats were obtained at the acquisition workstation. This CT examination was performed using dose optimization techniques as appropriate, variously including the following: *Automated exposure control. *Adjustment of mA and/or kV according to patient size (this includes techniques or standardized protocols for targeted exams where dose is matched to indication/reason for exam; i.e. extremities or head). *Use of iterative reconstruction technique. DLP: 1395 mGy-cm FINDINGS: Head: There is no evidence of acute intracranial hemorrhage or edematous territorial infarction. Perea-white matter differentiation is preserved. A few foci of hypoattenuation in the periventricular and deep white matter are consistent with mild microangiopathy. Proportional prominence of the ventricles and sulcal spaces without evidence of obstructive hydrocephalus. No abnormal mass effect or midline shift. No extra-axial fluid collections. No acute soft tissue or osseous abnormalities. Mild mucosal thickening of the paranasal sinuses. The mastoid air cells and middle ear cavities are clear. Cervical Spine: The atlantooccipital and atlantoaxial articulations remain well aligned. Straightening of the normal cervical lordosis. Otherwise, there is anatomic alignment of the vertebral bodies and posterior elements. No evidence of acute fracture or subluxation. The vertebral body heights are maintained. Advanced degenerative disc disease at T1-T2. Moderate degenerative disc disease from C3-C7 with prominent disc-osteophyte complex formation. There appear to be moderate disc herniations at C3-C4 and C4-C5 leading to at least moderate spinal canal stenoses at these levels. Facet and uncovertebral joint arthropathy leads to osseous encroachment on the neural foramina from C4-C6. Moderately prominent bridging anterior osteophytosis from C3-C6. Partially mineralized material inferior to the atlantodental articulation as may be seen with calcific tendinosis. There is no prevertebral soft tissue swelling. There is a 1.5 cm hypoattenuating nodule in the left thyroid lobe. The remaining cervical soft tissues are within normal limits. The lung apices demonstrate no abnormalities. CT/CT cervical spine wo IV con IMPRESSION: 1. No evidence of acute intracranial hemorrhage or edematous territorial infarction. Mild underlying microangiopathy and generalized cerebral volume loss. 2. No evidence of acute fracture or traumatic subluxation of the cervical spine. 3. Moderate multilevel degenerative spondyloarthropathy of the cervical spine. Most notably on this limited exam without intrathecal contrast, there appear to be moderate spinal canal stenoses at C3-C4 and C4-C5. 4. There is a 1.5 cm nodule in the left thyroid lobe. Recommend further characterization with thyroid ultrasound.
--- NOTE | ~2023-08-02 | XR_ITS ---
EXAMINATION: XR HIP, RIGHT CLINICAL INFORMATION: Fall. Pain. COMPARISON: Right hip December 02, 2022 TECHNIQUE: Frontal view of pelvis Two views of the right hip. FINDINGS: No fracture. Alignment is anatomic. Mild degenerative joint disease of the hips bilateral.. Vascular calcifications in the pelvis and upper thigh. XR/XR hip RT min 2V IMPRESSION: No acute fracture or malalignment.
[2023-08-02 18:23] VITALS: BP 130/45; PULSE 63
[2023-08-02 18:31] VITALS: BP 130/45; PULSE 61; RESP 18; TEMP 36.6; O2SAT 97; BMI 37.2
--- NOTE | 2023-08-02 18:44 | PC.NURSE ---
pt arrives c-collared from home s/p fall from chair. pt sts she did hit her head, and is on eliquis. pt endorsing left sided CARTWRIGHT, MD Ghosh notified, CT of head ordered
--- NOTE | 2023-08-02 19:37 | ED_ITS ---
HPI - General Adult General Chief complaint: Fall Stated complaint: fall w head strike, no loc, + thinners, pain Time Seen by Provider: 08/02/23 18:34 Source: patient and EMS Mode of arrival: EMS Limitations: no limitations History of Present Illness HPI narrative: Patient comes to the emergency room complaining of a mechanical fall. Patient states that she was trying to sit down on a chair, the chair moved backwards and the patient on the floor, hit the back of her head. Patient denies loss of consciousness. Patient complaining of mild right-sided hip pain. Patient known to take Eliquis. Patient denies headache or neck pain. Patient denies chest pain or shortness of breath. Related Data Home Medications Medication Instructions Recorded Confirmed gabapentin 100 mg capsule 200 mg PO BID neuropathic pain 02/12/21 04/02/23 hydralazine 50 mg tablet 1 tab PO TID@0900,1200,1800 blood 02/12/21 04/02/23 pressure levothyroxine 25 mcg tablet 1 tab PO QAM 02/12/21 04/02/23 melatonin 5 mg tablet 5 mg PO BEDTIME 02/12/21 04/02/23 atorvastatin 40 mg tablet 40 mg PO DAILY cholesterol 02/26/21 04/02/23 sevelamer carbonate 800 mg tablet 800 mg PO TIDAC 02/26/21 04/02/23 aspirin 81 mg tablet,delayed 1 tab PO DAILY 10/12/21 04/02/23 release cholecalciferol (vitamin D3) 50 1 cap PO QAM 10/12/21 04/02/23 mcg (2,000 unit) capsule Previous Rx's Medication Instructions Recorded blood-glucose meter (FreeStyle #1 ea 04/24/21 Lite Meter kit) metoprolol tartrate 50 mg tablet 50 mg PO Q12H #60 tabs 06/28/21 amlodipine 10 mg tablet 10 mg PO QAM blood pressure 90 08/02/21 days #90 tabs apixaban 5 mg tablet (Eliquis) 5 mg PO BID 90 days #180 tabs 08/02/21 lisinopril 10 mg tablet 10 mg PO BEDTIME blood pressure 90 08/02/21 days #90 tabs lancets 33 gauge (TRUEplus Lancets) ##100 06/05/22 pen needle, diabetic 32 gauge x #150 ea 07/02/2205/28 (BD Ultra-Fine Micro Pen Needle) chlorhexidine gluconate 4 % 1 appl topical .COMPLEX 2 doses 07/08/22 topical liquid (Hibiclens) #473 mL cephalexin 500 mg capsule 500 mg PO BID #20 caps 07/29/22 tramadol 50 mg tablet 50 mg PO BID PRN pain #7 tabs 07/29/22 doxycycline hyclate 100 mg tablet 100 mg PO BID 30 days #60 tabs 08/26/22 blood-glucose meter,continuous #1 ea 09/11/22 (Dexcom G6 [employer] Worker) blood-glucose sensor (Dexcom G6 #3 ea 09/11/22 Sensor device) blood-glucose transmitter (Dexcom #1 ea 09/11/22 G6 Transmitter device) insulin glargine U-300 conc 300 28 unit (0.0933 mL) subcut DAILY 09/30/22 unit/mL (3 mL) subcutaneous pen 30 days #6 mL (Toujeo Max U-300 SoloStar) insulin lispro 100 unit/mL See Rx Instructions subcut 01/02/23 subcutaneous pen .COMPLEX #15 mL tramadol 50 mg tablet 50 mg PO Q8H PRN pain, severe #5 03/06/23 tabs cefuroxime axetil 250 mg tablet 250 mg PO DAILY 6 days #6 tabs 05/03/23 lidocaine 5 % topical patch 1 patch topical DAILY #30 ea 05/03/23 oxycodone 5 mg tablet 5 mg PO BID PRN pain #10 tabs 05/03/23 blood sugar diagnostic (FreeStyle #100 strips 05/18/23 Lite Strips) sitagliptin phosphate 25 mg tablet 25 mg PO QAM #30 tabs 07/24/23 (Januvia) Allergies Allergy/AdvReac Type Severity Reaction Status Date / Time No Known Allergies Allergy Verified 08/02/23 19:43 [No Known Allergies*] Review of Systems Review of Systems: Constitutional : No Weight loss, No Fever, No Chills, No Night Sweats, No Fatigue, No Malaise ENT/Mouth : No Hearing loss, No Ear Pain, No Nasal Congestion, No Sinus Pain, No Hoarseness, No sore throat, No Rhinorrhea, No Swallowing Difficulty Eyes: No Eye Pain, No Swelling, No Redness, No Foreign Body, No Discharge, No Vision Changes Cardiovascular : No Chest Pain, No SOB, No Dyspnea on Exertion, No Orthopnea, No Edema, No Palpitations Respiratory : No Cough, No Sputum, No Wheezing, No Smoke Exposure, No Dyspnea Gastrointestinal : No Nausea, No Vomiting, No Diarrhea, No Constipation, No abdominal Pain, No Hematochezia, No Melena Genitourinary : no irregular bleeding, No Dysuria, No Urinary Frequency, No Hematuria, No Urinary Incontinence, No Urgency, No Flank Pain, No Urinary Flow Changes, No Hesitancy Musculoskeletal : Complaining of right-sided hip pain, No Myalgias, No Joint Swelling Skin : No Skin Lesions, No rash Neuro : No Weakness, No Numbness, No Paresthesias, No Loss of Consciousness, No Dizziness, No Headache Psych : No Anxiety/Panic, No Depression, No SI/HI/AH/VH, No Social Issues, Heme/Lymph: No Bruising, No Bleeding,No Lymphadenopathy Endocrine : No Polyuria, No Polydipsia, No Temperature Intolerance PMFSH Past Medical History 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 Uncontrolled type 2 diabetes mellitus with hyperglycemia, with long-term current use of insulin Hidradenitis suppurativa Pneumonia Type 2 diabetes mellitus with hyperglycemia Paroxysmal atrial flutter Dysphonia Chronic cough Urinary frequency Dyspnea on exertion Unstable gait Asthma Chronic low back pain without sciatica Osteoarthritis of both knees Kidney stones Depression AMARJIT (obstructive sleep apnea) Normocytic anemia ESRD needing dialysis CHF (congestive heart failure) Obesity due to excess calories CAD (coronary artery disease) GERD (gastroesophageal reflux disease) Thyroid disease AV fistula HLD (hyperlipidemia) ESRD (end stage renal disease) T2DM (type 2 diabetes mellitus) End stage renal disease on dialysis Dialysis patient Renal failure (ARF), acute on chronic HTN (hypertension) Surgical History History of kidney surgery Hx of cholecystectomy Hx of bone graft Family History Family History Father CVD (cardiovascular disease) Diabetes Mother Diabetes Sister Stomach cancer Social History Social History Household Members: Family Housing: House Do you presently have visiting nurse or other home services: No Unable to assess alcohol history related to: Unknown Alcohol intake: never Patient Tobacco Use Status: Never used Tobacco Smoked in Last 30 Days: No Use of substances other than those prescribed or required for medical reasons: No Advance Directives: Yes Advance Directives on File: Yes Advance Directives Date on File: 02/15/21 Patient : No service: No Current occupational status: disabled Current occupation: right hand dominant Physical Exam ED Vital Signs: Vital Signs - 24 hr 08/02/23 18:31 08/02/23 21:56 Temperature 97.9 F 97.7 F Pulse Rate 61 88 Respiratory Rate 18 16 Blood Pressure 130/45 L 125/39 L Pulse Oximetry 97 95 Oxygen Delivery Method Room Air Room Air BMI result Body Mass Index 37.2 Const Other: Appearance: Alert. Oriented X3. No acute distress. Eyes: Pupils equal, round and reactive to light. ENT: Pharynx normal. Neck: Normal inspection. On C-spine precautions, no cervical spine tenderness, mild pain to palpation bilateral aspect of the neck. CVS: Normal heart rate and rhythm. Pulses normal. Normal S1 and S2 Respiratory: No respiratory distress. Breath sounds normal. No Wheezing. No rales Abdomen: Soft and nontender. No rigidity. No distention. Skin: Skin warm and dry. Normal skin color. Normal skin turgor. Extremities: No lower extremity edema. No Lacerations. No Rash Neuro: Oriented X 3. No motor deficit. No sensory deficit. Moving all extremities. No slurred speech. CN 2 through 12 grossly intact Psych: calm, cooperative, normal affect Course Course Course Narrative: Head CT of the head and cervical spine pending, x-ray of the right hip pending. Medical Decision Making Medical Decision Making MDM Narrative: -my interpretation of head CT and neck CT, no intracranial bleed, no obvious subluxation or cervical spine fracture. -I discussed the report with the patient and her family. There is an incidental finding, thyroid nodule. Patient is to follow-up with her primary care physician, will likely need further workup -my interpretation of x-ray of the hip, mild osteoarthritis. No fracture, normal alignment. Differential Diagnosis Differential Diagnoses: The differential diagnosis associated with the presentation includes (Contusion, intracranial bleed, cervical spine injury, hip dislocation, contusion versus fracture) Admission/Observation Consideration of admission/observation: Escalation of care including admission/observation considered (Given patient's initial complaints and presentation, admission was considered) Independent Interpretation I performed an independent interpretation of an: Plain X-Ray and CT Scan Radiology Impression Discussion of test interpretation with radiology: I have reviewed the radiologist's reading. Radiologist Impression: No fracture. Alignment is anatomic. Mild degenerative joint disease of the hips bilateral.. Vascular calcifications in the pelvis and upper thigh. XR/XR hip RT min 2V IMPRESSION: No acute fracture or malalignment. Head: There is no evidence of acute intracranial hemorrhage or edematous territorial infarction. [place]-white matter differentiation is preserved. A few foci of hypoattenuation in the periventricular and deep white matter are consistent with mild microangiopathy. Proportional prominence of the ventricles and sulcal spaces without evidence of obstructive hydrocephalus. No abnormal mass effect or midline shift. No extra-axial fluid collections. No acute soft tissue or osseous abnormalities. Mild mucosal thickening of the paranasal sinuses. The mastoid air cells and middle ear cavities are clear. Cervical Spine: The atlantooccipital and atlantoaxial articulations remain well aligned. Straightening of the normal cervical lordosis. Otherwise, there is anatomic alignment of the vertebral bodies and posterior elements. No evidence of acute fracture or subluxation. The vertebral body heights are maintained. Advanced degenerative disc disease at T1-T2. Moderate degenerative disc disease from C3-C7 with prominent disc-osteophyte complex formation. There appear to be moderate disc herniations at C3-C4 and C4-C5 leading to at least moderate spinal canal stenoses at these levels. Facet and uncovertebral joint arthropathy leads to osseous encroachment on the neural foramina from C4-C6. Moderately prominent bridging anterior osteophytosis from C3-C6. Partially mineralized material inferior to the atlantodental articulation as may be seen with calcific tendinosis. There is no prevertebral soft tissue swelling. There is a 1.5 cm hypoattenuating nodule in the left thyroid lobe. The remaining cervical soft tissues are within normal limits. The lung apices demonstrate no abnormalities. CT/CT head/brain wo IV con IMPRESSION: 1. No evidence of acute intracranial hemorrhage or edematous territorial infarction. Mild underlying microangiopathy and generalized cerebral volume loss. 2. No evidence of acute fracture or traumatic subluxation of the cervical spine. 3. Moderate multilevel degenerative spondyloarthropathy of the cervical spine. Most notably on this limited exam without intrathecal contrast, there appear to be moderate spinal canal stenoses at C3-C4 and C4-C5. 4. There is a 1.5 cm nodule in the left thyroid lobe. Recommend further characterization with thyroid ultrasound. Critical Care Time Critical Care Time Critical Care Time: Yes Total Critical Care Time: 30 Attestation: I have personally provided critical care time. Time includes review of lab data, radiology results, discussion with consultants, and monitoring for potential decompensation. Intervention performed as documented. Discharge Plan Discharge Clinical Impression: Fall, Contusion Patient Disposition: Home, Self-Care Instructions: Contusion in Adults (ED) Additional Instructions: Your head CT and neck CT do not show any obvious abnormality. However, the CT scan of the neck shows a nodule in the neck which needs further workup through your primary care physician. Prescriptions: No Action (DME) blood-glucose meter [FreeStyle Lite Meter] Kit See Rx Instructions .ROUTE .MEDSUPPLY Qty: 1 0RF Rx Instructions: As directed amlodipine 10 mg tablet 10 mg PO QAM 90 Days Qty: 90 3RF Eliquis 5 mg tablet 5 mg PO BID 90 Days Qty: 180 3RF lisinopril 10 mg tablet 10 mg PO BEDTIME 90 Days Qty: 90 3RF (DME) lancets [TRUEplus Lancets] 33 gauge misc See Rx Instructions .ROUTE .COMPLEX Qty: 100 11RF Dose Instruction: TEST BLOOD SUGAR FOUR TIMES DAILY Rx Instructions: TEST BLOOD SUGAR FOUR TIMES DAILY (DME) pen needle, diabetic [BD Ultra-Fine Micro Pen Needle] 32 gauge x 1/4 needle See Rx Instructions .ROUTE .MEDSUPPLY Qty: 150 11RF Rx Instructions: As directed 4 times a day Toujeo Max U-300 SoloStar 300 unit/mL (3 mL) insulin pen 28 unit subcut DAILY 30 Days Qty: 6 6RF insulin lispro 100 unit/mL insulin pen See Rx Instructions subcut .COMPLEX Qty: 15 5RF Rx Instructions: Inject 8-14 units prior to meals subcutaneously; (DME) FreeStyle Lite Strips Strip See Rx Instructions .ROUTE .COMPLEX Qty: 100 11RF Dose Instruction: TEST BLOOD SUGAR FOUR TIMES DAILY Rx Instructions: TEST BLOOD SUGAR FOUR TIMES DAILY Januvia 25 mg tablet 25 mg PO QAM Qty: 30 6RF levothyroxine 25 mcg tablet 1 tab PO QAM hydralazine 50 mg tablet 1 tab PO TID@0900,1200,1800 gabapentin 100 mg capsule 200 mg PO BID melatonin 5 mg tablet 5 mg PO BEDTIME atorvastatin 40 mg tablet 40 mg PO DAILY sevelamer carbonate 800 mg tablet 800 mg PO TIDAC aspirin 81 mg tablet,delayed release (DR/EC) 1 tab PO DAILY cholecalciferol (vitamin D3) 50 mcg (2,000 unit) capsule 1 cap PO QAM metoprolol tartrate 50 mg tablet 50 mg PO Q12H Qty: 60 0RF cephalexin 500 mg capsule 500 mg PO BID Qty: 20 0RF tramadol 50 mg tablet 50 mg PO BID PRN (Reason: pain) Qty: 7 0RF tramadol 50 mg tablet 50 mg PO Q8H PRN (Reason: pain, severe) Qty: 5 0RF cefuroxime axetil 250 mg tablet 250 mg PO DAILY 6 Days Qty: 6 0RF oxycodone 5 mg tablet 5 mg PO BID PRN (Reason: pain) Qty: 10 0RF Rx Instructions: Partial Fill upon patient request. lidocaine 5 % adhesive patch,medicated 1 patch topical DAILY Qty: 30 0RF Rx Instructions: leave on most painful area for up to 12 hrs (DME) Dexcom G6 [employer] Work[employer] Misc See Rx Instructions .Route Qty: 1 0RF Rx Instructions: As directed (DME) Dexcom G6 Sensor Device See Rx Instructions .Route Qty: 3 5RF Rx Instructions: As directed change every 10 days (DME) Dexcom G6 Transmitter Device See Rx Instructions .Route Qty: 1 0RF Rx Instructions: As directed chlorhexidine gluconate [Hibiclens] 4 % liquid 1 appl topical .COMPLEX Qty: 473 3RF Rx Instructions: 1 appl topically lather in shower every 3-4 days, leave on skin for 1 monute before rinsing; doxycycline hyclate 100 mg tablet 100 mg PO BID 30 Days Qty: 60 3RF
--- NOTE | 2023-08-02 20:06 | PC.NURSE ---
PT returned from CT scan, laying in bed, in no apparent distress. Awaiting CT and XRAY results at this time. C Collar in place. Call mckinney placed with in reach.
[2023-08-02 21:56] VITALS: BP 125/39; PULSE 88; RESP 16; TEMP 36.5; O2SAT 95
[2023-08-02 23:01] VITALS: BP 124/42; PULSE 61; RESP 16; TEMP 36.1; O2SAT 99
[2023-08-02] MEDS: traMADoL HCL 50 MG TABLET PO (23:02)
== END 2023-08-02 23:09 | disposition home or self-care (01) ==
PROVIDERS: Emergency Provider Emergency Medicine; PCP Internal Medicine
DX: S00.03XA Contusion of scalp, initial encounter (principal); S00.93XA Contusion of unspecified part of head, initial encounter; M25.551 Pain in right hip; R51.9 Headache, unspecified; M54.2 Cervicalgia; W07.XXXA Fall from chair, initial encounter; Y92.9 Unspecified place or not applicable; Y99.8 Other external cause status; Z79.01 Long term (current) use of anticoagulants; Z79.899 Other long term (current) drug therapy
CPT/HCPCS: 70450; 72125; 73502; 99284

== ENCOUNTER 2023-08-07 16:09 | Emergency (ER) | payer MEDICAID, SELFPAY ==
--- NOTE | ~2023-08-07 | XR_ITS ---
EXAMINATION: XR ANKLE, RIGHT CLINICAL INFORMATION: Pain, fall. COMPARISON: None available. TECHNIQUE: AP, lateral, and mortise views of the right ankle. FINDINGS: No fracture or subluxation. Moderate multifocal degenerative arthroses. Calcaneal spurs. Diffuse soft tissue swelling. Severe vascular calcifications. XR/XR ankle RT min 3V IMPRESSION: 1. No fracture or malalignment. 2. Moderate multifocal degenerative arthroses. 3. Severe vascular calcifications.
--- NOTE | ~2023-08-07 | XR_ITS ---
EXAMINATION: XR KNEE, RIGHT CLINICAL INFORMATION: Fall COMPARISON: None available. TECHNIQUE: Four views of the right knee. FINDINGS: Bone alignment is normal. No fracture or dislocation. Degenerative meniscal joint spaces are otherwise normal. Moderate joint effusion. Small 5 quadriceps tendon insertion and patellar tendon origin. Atherosclerotic disease. XR/XR knee RT 4V IMPRESSION: Mild degenerative changes. Moderate joint effusion. No fracture or dislocation.
[2023-08-07 16:17] VITALS: BP 119/59; PULSE 64; O2SAT 97
--- NOTE | 2023-08-07 16:17 | ED.GENADULT ---
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 Patient reports she was riding around on a scooter in [employer] when she stood up and lost her balance hitting her right knee on the ground. She did not hit her head or lose consciousness. She is on Eliquis. She reports pain with weight-bearing since the fall. She denies any associated weakness, numbness or tingling of the extremity Related Data Home Medications Medication Instructions Recorded Confirmed gabapentin 100 mg capsule 200 mg PO BID neuropathic pain 02/12/21 04/02/23 hydralazine 50 mg tablet 1 tab PO TID@0900,1200,1800 blood 02/12/21 04/02/23 pressure levothyroxine 25 mcg tablet 1 tab PO QAM 02/12/21 04/02/23 melatonin 5 mg tablet 5 mg PO BEDTIME 02/12/21 04/02/23 atorvastatin 40 mg tablet 40 mg PO DAILY cholesterol 02/26/21 04/02/23 sevelamer carbonate 800 mg tablet 800 mg PO TIDAC 02/26/21 04/02/23 aspirin 81 mg tablet,delayed 1 tab PO DAILY 10/12/21 04/02/23 release cholecalciferol (vitamin D3) 50 1 cap PO QAM 10/12/21 04/02/23 mcg (2,000 unit) capsule Previous Rx's Medication Instructions Recorded blood-glucose meter (FreeStyle #1 ea 04/24/21 Lite Meter kit) metoprolol tartrate 50 mg tablet 50 mg PO Q12H #60 tabs 06/28/21 amlodipine 10 mg tablet 10 mg PO QAM blood pressure 90 08/02/21 days #90 tabs apixaban 5 mg tablet (Eliquis) 5 mg PO BID 90 days #180 tabs 08/02/21 lisinopril 10 mg tablet 10 mg PO BEDTIME blood pressure 90 08/02/21 days #90 tabs lancets 33 gauge (TRUEplus Lancets) ##100 06/05/22 pen needle, diabetic 32 gauge x #150 ea 07/02/2205/28 (BD Ultra-Fine Micro Pen Needle) chlorhexidine gluconate 4 % 1 appl topical .COMPLEX 2 doses 07/08/22 topical liquid (Hibiclens) #473 mL cephalexin 500 mg capsule 500 mg PO BID #20 caps 07/29/22 tramadol 50 mg tablet 50 mg PO BID PRN pain #7 tabs 07/29/22 doxycycline hyclate 100 mg tablet 100 mg PO BID 30 days #60 tabs 08/26/22 blood-glucose meter,continuous #1 ea 09/11/22 (Dexcom G6 Roadability Machine Operator) blood-glucose sensor (Dexcom G6 #3 ea 09/11/22 Sensor device) blood-glucose transmitter (Dexcom #1 ea 09/11/22 G6 Transmitter device) insulin glargine U-300 conc 300 28 unit (0.0933 mL) subcut DAILY 09/30/22 unit/mL (3 mL) subcutaneous pen 30 days #6 mL (Toujeo Max U-300 SoloStar) insulin lispro 100 unit/mL See Rx Instructions subcut 01/02/23 subcutaneous pen .COMPLEX #15 mL tramadol 50 mg tablet 50 mg PO Q8H PRN pain, severe #5 03/06/23 tabs cefuroxime axetil 250 mg tablet 250 mg PO DAILY 6 days #6 tabs 05/03/23 lidocaine 5 % topical patch 1 patch topical DAILY #30 ea 05/03/23 oxycodone 5 mg tablet 5 mg PO BID PRN pain #10 tabs 05/03/23 blood sugar diagnostic (FreeStyle #100 strips 05/18/23 Lite Strips) sitagliptin phosphate 25 mg tablet 25 mg PO QAM #30 tabs 07/24/23 (Januvia) Allergies Allergy/AdvReac Type Severity Reaction Status Date / Time No Known Allergies Allergy Verified 08/07/23 16:25 [No Known Allergies*] Review of Systems Review of Systems: Yes all other systems are reviewed and are negative Constitutional: Constitutional: Reports no additional constitutional complaints, Denies body ache(s), Denies chills, Denies fever(s), Denies headache(s) and Denies weakness Eyes: Eyes: Reports no additional eye complaints and Denies change in vision ENT: Reports system reviewed and no additional complaints, except as documented, Denies dizziness, Denies headache(s), Denies nasal congestion, Denies nasal discharge and Denies neck pain Cardiovascular: Cardiovascular: Reports no additional cardiovascular complaints, Denies chest pain, Denies leg edema and Denies dyspnea Respiratory: Respiratory: Reports no additional respiratory complaints, Denies cough and Denies dyspnea Gastrointestinal: Gastrointestinal: Reports no additional gastrointestinal complaints, Denies abdominal pain, Denies diarrhea, Denies nausea and Denies vomiting Genitourinary: Genitourinary: Reports no additional female genitourinary complaints and Denies urinary incontinence Musculoskeletal: Musculoskeletal: Reports no additional musculoskeletal complaints, Denies back pain, Reports arthralgias, Reports joint swelling, Reports limited range of motion, Denies neck pain, Denies numbness and Denies tingling Integumentary/Breasts: Skin/Breast: Reports system reviewed and no additional complaints, except as docu and Denies rash Neurologic: Reports system reviewed and no additional complaints, except as documented, Denies Abnormal speech present, Denies dizziness, Denies headache(s), Denies numbness, Denies tingling and Denies weakness [facility] Past Medical History Attestation statement: The following information was validated with the patient. 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 Uncontrolled type 2 diabetes mellitus with hyperglycemia, with long-term current use of insulin Hidradenitis suppurativa Pneumonia Type 2 diabetes mellitus with hyperglycemia Paroxysmal atrial flutter Dysphonia Chronic cough Urinary frequency Dyspnea on exertion Unstable gait Asthma Chronic low back pain without sciatica Osteoarthritis of both knees Kidney stones Depression AMARJIT (obstructive sleep apnea) Normocytic anemia ESRD needing dialysis CHF (congestive heart failure) Obesity due to excess calories CAD (coronary artery disease) GERD (gastroesophageal reflux disease) Thyroid disease AV fistula HLD (hyperlipidemia) ESRD (end stage renal disease) T2DM (type 2 diabetes mellitus) End stage renal disease on dialysis Dialysis patient Renal failure (ARF), acute on chronic HTN (hypertension) Surgical History History of kidney surgery Hx of cholecystectomy Hx of bone graft Family History Family History Father CVD (cardiovascular disease) Diabetes Mother Diabetes Sister Stomach cancer Social History Social History Household Members: Family Housing: House Do you presently have visiting nurse or other home services: No Unable to assess alcohol history related to: Unknown Alcohol intake: never Patient Tobacco Use Status: Never used Tobacco Advance Directives: Yes Advance Directives on File: Yes Advance Directives Date on File: 02/15/21 service: No Current occupational status: disabled Current occupation: right hand dominant Physical Exam ED Vital Signs: Vital Signs - 24 hr 08/07/23 16:19 Temperature 96.6 F L Pulse Rate 60 Respiratory Rate 20 Blood Pressure 131/43 L Pulse Oximetry 97 Oxygen Delivery Method Room Air BMI result Body Mass Index 39.3 Const General: cooperative, healthy appearing, comfortable and no acute distress Orientation/consciousness: patient oriented x3 Limitations: no limitations HENMT Head: Yes normal to inspection Ears: hearing grossly normal bilaterally General nose exam: Normal external nose present Face and sinus: Yes normal facial exam Mouth: Normal oral and palatal mucosa present Throat: Yes posterior oropharynx normal Eyes General: appearance normal, both eyes and all related structures Pupils: Equal, round and reactive pupils present Neck Neck: Yes normal visual inspection Chest Chest palpation & inspection: normal inspection of the chest Resp Effort & Inspection: normal respiratory effort Auscultation: clear to auscultation bilaterally Cardio Rate: regular rate Rhythm: regular rhythm Peripheral pulses: Peripheral pulses 2+ throughout GI Inspection: Yes normal to inspection Palpation (GI): Soft to palpation and nontender Auscultation: normal bowel sounds Back/Spine/Pelvis Thoracic/Lumbar Spine: thoracic and lumbar spine normal to inspection Skin General skin exam: no rashes or lesions noted Neuro General: patient oriented x3, no focal motor deficits and normal sensation to monofilament Cranial nerves: Yes Equal, round and reactive pupils present Cognition (Neuro): normal cognition Speech: No Abnormal speech present Gait exam (Neuro): Normal gait present Motor exam (neuro): 5/5 motor strength present throughout Extrem Other: Patient has tenderness the right anterior knee with swelling. She has partial flexion but has pain with flexion. She is able to extend the knee with no difficulty. She is 2+ DP and PT pulses. Normal sensation distally. No calf pain or tenderness on exam General: Yes normal to inspection Course Course Course Narrative: This is an RME: Additional HPI, ROS, PE not included below will be deferred to primary provider. Patient is a 58-year-old female who presents to emergency department via EMS. She is coming from dialysis today, completed her treatment, four falls over the past few days while at home, she is anticoagulated on Eliquis. last fall was 3 days ago while at [facility], she went to stand up after sitting down and could not feel her legs and subsequently fell. Reporting pain to the right knee and right foot progressing, worse while ambulating. Denies any head strike or loss of consciousness with this fall. States the high school social studies tutor at dialysis advised her to come in today. Plan: XR Reevaluation(s) Reevaluation #1: X-ray shows no acute fracture. Likely contusion. Patient placed in yash wrap. Patient and her met with CM. Plan for outpatient physical therapy. They declined wanting STR. Reviewed worrisome signs and symptoms of when to return to the emergency room. Comfortable plan for discharge home. Medical Decision Making Medical Decision Making [facility] Narrative: 58 yo with female with history of ESRD on HD, diabetes, diabetic neuropathy presents to the ER with complaints of right knee pain after a fall on Thursday. Patient reports she was riding around on a scooter in [facility] when she stood up and lost her balance hitting her right knee on the ground. She did not hit her head or lose consciousness. She is on Eliquis. She reports pain with weight-bearing since the fall. She denies any associated weakness, numbness or tingling of the extremity Patient has tenderness the right anterior knee with swelling. She has partial flexion but has pain with flexion. She is able to extend the knee with no difficulty. She is 2+ DP and PT pulses. Normal sensation distally. No calf pain or tenderness on exam Additionally patient has had some difficulty with weight-bearing since the fall. She is here with her . I did offer them physical therapy evaluation and case management services with possible placement of short-term rehab facility but they declined this. They would be interested in home physical therapy and so I placed a case management consultation Will check x-rays Differential Diagnosis Differential Diagnoses: The differential diagnosis associated with the presentation includes Contusion, fracture, sprain, strain, Low concern for dislocation or vascular injury Admission/Observation Consideration of admission/observation: Escalation of care including admission/observation considered Low concern for vascular injury, dislocation or complex fracture requiring advanced imaging or urgent orthopedic consultation Independent Interpretation I performed an independent interpretation of an: Plain X-Ray Interpretation: I independently viewed the x-ray and agree with the radiology report Radiology Impression Discussion of test interpretation with radiology: I have reviewed the radiologist's reading. Radiologist Impression: [place] [id number] XRay Report Signed Patient: Sarah Dixon MR#: [id number] : 1965 Acct:[id number] Age/Sex: 58 / F ADM Date: 08/07/23 Loc: .ED Attending Dr: Ordering Physician: Erica Miller CNP Date of Service: 08/07/23 Procedure(s): XR knee RT 4V Accession Number(s): [id number] cc: Erica Miller CNP; Physician,Unknown ~ EXAMINATION: XR KNEE, RIGHT CLINICAL INFORMATION: Fall COMPARISON: None available. TECHNIQUE: Four views of the right knee. FINDINGS: Bone alignment is normal. No fracture or dislocation. Degenerative meniscal joint spaces are otherwise normal. Moderate joint effusion. Small 5 quadriceps tendon insertion and patellar tendon origin. Atherosclerotic disease. XR/XR knee RT 4V IMPRESSION: Mild degenerative changes. Moderate joint effusion. No fracture or dislocation. [address] [address] XRay Report Signed Patient: Sarah Dixon MR#: [id number] : 1965 Acct:[id number] Age/Sex: 58 / F ADM Date: 08/07/23 Loc: .ED Attending Dr: Ordering Physician: Erica Miller CNP Date of Service: 08/07/23 Procedure(s): XR ankle RT min 3V Accession Number(s): [id number] cc: Erica Miller CNP; Physician,Unknown ~ EXAMINATION: XR ANKLE, RIGHT CLINICAL INFORMATION: Pain, fall. COMPARISON: None available. TECHNIQUE: AP, lateral, and mortise views of the right ankle. FINDINGS: No fracture or subluxation. Moderate multifocal degenerative arthroses. Calcaneal spurs. Diffuse soft tissue swelling. Severe vascular calcifications. XR/XR ankle RT min 3V IMPRESSION: 1. No fracture or malalignment. 2. Moderate multifocal degenerative arthroses. 3. Severe vascular calcifications. Independent Historian Clinical information obtained from an independent historian. History obtained from or confirmed by: Spouse and EMS Tests considered The following testing was considered but not selected: Low concern for vascular injury, complex fracture or dislocation requiring advanced imaging Prescription Management I considered prescription management with: Pain Medication Chronic Conditions Patient?s care impacted by: Diabetes Discharge Plan Discharge Clinical Impression: Contusion of knee, right Patient Disposition: Home, Self-Care Instructions: Contusion in Adults (ED) Prescriptions: No Action (DME) blood-glucose meter [FreeStyle Lite Meter] Kit See Rx Instructions .ROUTE .MEDSUPPLY Qty: 1 0RF Rx Instructions: As directed amlodipine 10 mg tablet 10 mg PO QAM 90 Days Qty: 90 3RF Eliquis 5 mg tablet 5 mg PO BID 90 Days Qty: 180 3RF lisinopril 10 mg tablet 10 mg PO BEDTIME 90 Days Qty: 90 3RF (DME) lancets [TRUEplus Lancets] 33 gauge misc See Rx Instructions .ROUTE .COMPLEX Qty: 100 11RF Dose Instruction: TEST BLOOD SUGAR FOUR TIMES DAILY Rx Instructions: TEST BLOOD SUGAR FOUR TIMES DAILY (DME) pen needle, diabetic [BD Ultra-Fine Micro Pen Needle] 32 gauge x 1/4 needle See Rx Instructions .ROUTE .MEDSUPPLY Qty: 150 11RF Rx Instructions: As directed 4 times a day Toujeo Max U-300 SoloStar 300 unit/mL (3 mL) insulin pen 28 unit subcut DAILY 30 Days Qty: 6 6RF insulin lispro 100 unit/mL insulin pen See Rx Instructions subcut .COMPLEX Qty: 15 5RF Rx Instructions: Inject 8-14 units prior to meals subcutaneously; (DME) FreeStyle Lite Strips Strip See Rx Instructions .ROUTE .COMPLEX Qty: 100 11RF Dose Instruction: TEST BLOOD SUGAR FOUR TIMES DAILY Rx Instructions: TEST BLOOD SUGAR FOUR TIMES DAILY Januvia 25 mg tablet 25 mg PO QAM Qty: 30 6RF levothyroxine 25 mcg tablet 1 tab PO QAM hydralazine 50 mg tablet 1 tab PO TID@0900,1200,1800 gabapentin 100 mg capsule 200 mg PO BID melatonin 5 mg tablet 5 mg PO BEDTIME atorvastatin 40 mg tablet 40 mg PO DAILY sevelamer carbonate 800 mg tablet 800 mg PO TIDAC aspirin 81 mg tablet,delayed release (DR/EC) 1 tab PO DAILY cholecalciferol (vitamin D3) 50 mcg (2,000 unit) capsule 1 cap PO QAM metoprolol tartrate 50 mg tablet 50 mg PO Q12H Qty: 60 0RF cephalexin 500 mg capsule 500 mg PO BID Qty: 20 0RF tramadol 50 mg tablet 50 mg PO BID PRN (Reason: pain) Qty: 7 0RF tramadol 50 mg tablet 50 mg PO Q8H PRN (Reason: pain, severe) Qty: 5 0RF cefuroxime axetil 250 mg tablet 250 mg PO DAILY 6 Days Qty: 6 0RF oxycodone 5 mg tablet 5 mg PO BID PRN (Reason: pain) Qty: 10 0RF Rx Instructions: Partial Fill upon patient request. lidocaine 5 % adhesive patch,medicated 1 patch topical DAILY Qty: 30 0RF Rx Instructions: leave on most painful area for up to 12 hrs (DME) Dexcom G6 Roadability Machine Operator Misc See Rx Instructions .Route Qty: 1 0RF Rx Instructions: As directed (DME) Dexcom G6 Sensor Device See Rx Instructions .Route Qty: 3 5RF Rx Instructions: As directed change every 10 days (DME) Dexcom G6 Transmitter Device See Rx Instructions .Route Qty: 1 0RF Rx Instructions: As directed chlorhexidine gluconate [Hibiclens] 4 % liquid 1 appl topical .COMPLEX Qty: 473 3RF Rx Instructions: 1 appl topically lather in shower every 3-4 days, leave on skin for 1 monute before rinsing; doxycycline hyclate 100 mg tablet 100 mg PO BID 30 Days Qty: 60 3RF Referrals: Physician,Unknown J [Primary Care Provider] - 1 week Print Language: Bahraini
[2023-08-07 16:19] VITALS: BP 131/43; PULSE 60; RESP 20; TEMP 35.9; O2SAT 97; BMI 39.3
--- NOTE | 2023-08-07 21:23 | MHC.CM.ED ---
CM met with patient with medical superintendent, as she is Maori speaking, at the request of Kailey CAMPBELL. Pt lives with her and a uncle. Her cousin is her SHAMPOO TECHNICIAN. She has 15 hours/wk via [employer]. She uses a walker and a cane. Pt receives dialysis at [facility]. She has been receiving dialysis for about 5 years She has had several falls over the past few days and is requesting home PT. She has had home PT in the past, but cannot remember what company. She has no requests for agencies. Pt desires discharge home and does not want to board overnight for a PT assessment in the morning and declines STR. Pt states her HCP is her , Prosper Quinn ([phone]). PCP is Faith Rosales in [place]. Referrals will be made locally. Pt is aware that CM will call in the morning with agency. Provider is aware. Will discharge patient home.
--- NOTE | 2023-08-08 09:53 | MHC.CM.ED ---
[facility] patient.
== END 2023-08-07 23:04 | disposition home or self-care (01) ==
PROVIDERS: Emergency Provider Internal Medicine
DX: S80.01XA Contusion of right knee, initial encounter (principal); E11.22 Type 2 diabetes mellitus with diabetic chronic kidney disease; N18.6 End stage renal disease; E11.40 Type 2 diabetes mellitus with diabetic neuropathy, unspecified; I48.92 Unspecified atrial flutter; Z99.2 Dependence on renal dialysis; Z79.01 Long term (current) use of anticoagulants; Z91.81 History of falling; W18.30XA Fall on same level, unspecified, initial encounter; Y93.9 Activity, unspecified; Y92.513 Shop (commercial) as the place of occurrence of the external cause; Y99.9 Unspecified external cause status
CPT/HCPCS: 73564; 73610; 99281; 99283

== ENCOUNTER 2023-08-11 19:16 | Emergency (ER) | payer MEDICAID, SELFPAY ==
--- NOTE | 2023-08-11 | ECG_ITS ---
Test Reason : CHEST PAIN Blood Pressure : / mmHG Vent. Rate : 059 BPM Atrial Rate : 059 BPM P-R Int : 252 ms QRS Dur : 090 ms QT Int : 450 ms P-R-T Axes : 036 070 067 degrees QTc Int : 445 ms Sinus bradycardia with 1st degree A-V block Anterolateral infarct (cited on or before 27-JUN-2021) Abnormal ECG When compared with ECG of 03-MAY-2023 16:21, No significant change was found Referred By: Earnest Roberto Electronically Signed By:CHI URIBE
[2023-08-11 19:31] VITALS: BP 102/60; BP 172/41; PULSE 60; RESP 18; TEMP 36.5; O2SAT 100; BMI 39.6
[2023-08-11 19:35] LABS: Glucose, Whole Blood 459 mg/dL (60-115)
--- NOTE | 2023-08-11 20:13 | ED.GENADULT ---
HPI - General Adult General Chief complaint: Recheck/Abnormal Lab/Rx Stated complaint: hyperglycemia, hx of dialysis, BGL 502 Time Seen by Provider: 08/11/23 19:21 Source: patient, RN notes reviewed and old records reviewed Mode of arrival: EMS Limitations: no limitations History of Present Illness HPI narrative: 58-year-old female with past medical history significant for end-stage renal disease on dialysis, diabetes, coronary artery disease, a flutter on Eliquis presents for evaluation of weakness. Patient had a visiting nurse that checked her blood sugar and was found to be ?high. ? Patient reports that she had an issue feeling her insulin at the pharmacy and therefore she took metformin 500 mg that is prescribed to her Patient does denies any shortness of breath or chest pain currently She went to her dialysis yesterday and completed her treatment Denies any fevers, chills, cough, leg swelling No other complaints or concerns at this time Related Data Home Medications Medication Instructions Recorded Confirmed gabapentin 100 mg capsule 200 mg PO BID neuropathic pain 02/12/21 04/02/23 hydralazine 50 mg tablet 1 tab PO TID@0900,1200,1800 blood 02/12/21 04/02/23 pressure levothyroxine 25 mcg tablet 1 tab PO QAM 02/12/21 04/02/23 melatonin 5 mg tablet 5 mg PO BEDTIME 02/12/21 04/02/23 atorvastatin 40 mg tablet 40 mg PO DAILY cholesterol 02/26/21 04/02/23 sevelamer carbonate 800 mg tablet 800 mg PO TIDAC 02/26/21 04/02/23 aspirin 81 mg tablet,delayed 1 tab PO DAILY 10/12/21 04/02/23 release cholecalciferol (vitamin D3) 50 1 cap PO QAM 10/12/21 04/02/23 mcg (2,000 unit) capsule Previous Rx's Medication Instructions Recorded blood-glucose meter (FreeStyle #1 ea 04/24/21 Lite Meter kit) metoprolol tartrate 50 mg tablet 50 mg PO Q12H #60 tabs 06/28/21 amlodipine 10 mg tablet 10 mg PO QAM blood pressure 90 08/02/21 days #90 tabs apixaban 5 mg tablet (Eliquis) 5 mg PO BID 90 days #180 tabs 08/02/21 lisinopril 10 mg tablet 10 mg PO BEDTIME blood pressure 90 08/02/21 days #90 tabs lancets 33 gauge (TRUEplus Lancets) ##100 06/05/22 pen needle, diabetic 32 gauge x #150 ea 07/02/2205/28 (BD Ultra-Fine Micro Pen Needle) chlorhexidine gluconate 4 % 1 appl topical .COMPLEX 2 doses 07/08/22 topical liquid (Hibiclens) #473 mL cephalexin 500 mg capsule 500 mg PO BID #20 caps 07/29/22 tramadol 50 mg tablet 50 mg PO BID PRN pain #7 tabs 07/29/22 doxycycline hyclate 100 mg tablet 100 mg PO BID 30 days #60 tabs 08/26/22 blood-glucose meter,continuous #1 ea 09/11/22 (Dexcom G6 Paint Striping Machine Operator) blood-glucose sensor (Dexcom G6 #3 ea 09/11/22 Sensor device) blood-glucose transmitter (Dexcom #1 ea 09/11/22 G6 Transmitter device) insulin glargine U-300 conc 300 28 unit (0.0933 mL) subcut DAILY 09/30/22 unit/mL (3 mL) subcutaneous pen 30 days #6 mL (Toujeo Max U-300 SoloStar) tramadol 50 mg tablet 50 mg PO Q8H PRN pain, severe #5 03/06/23 tabs cefuroxime axetil 250 mg tablet 250 mg PO DAILY 6 days #6 tabs 05/03/23 lidocaine 5 % topical patch 1 patch topical DAILY #30 ea 05/03/23 oxycodone 5 mg tablet 5 mg PO BID PRN pain #10 tabs 05/03/23 blood sugar diagnostic (FreeStyle #100 strips 05/18/23 Lite Strips) sitagliptin phosphate 25 mg tablet 25 mg PO QAM #30 tabs 07/24/23 (Januvia) cefuroxime axetil 250 mg tablet 250 mg PO DAILY #5 tabs 08/11/23 insulin lispro 100 unit/mL 8 - 14 unit (0.08 - 0.14 mL) 08/11/23 subcutaneous pen subcut USEASDIRECTD #15 mL insulin lispro 100 unit/mL 8 unit (0.08 mL) subcut TID #15 mL 08/11/23 subcutaneous pen Allergies Allergy/AdvReac Type Severity Reaction Status Date / Time No Known Allergies Allergy Verified 03/19/24 19:27 [No Known Allergies*] Review of Systems Constitutional: Constitutional: Denies anorexia, Denies body ache(s), Denies fever(s), Reports malaise and Reports weakness Eyes: Eyes: Denies blurry vision ENT: Denies sore throat Cardiovascular: Cardiovascular: Denies chest pain and Denies dyspnea Respiratory: Respiratory: Denies cough and Denies dyspnea Gastrointestinal: Gastrointestinal: Denies abdominal pain, Denies nausea and Denies vomiting Musculoskeletal: Musculoskeletal: Denies back pain Integumentary/Breasts: Skin/Breast: Denies rash Neurologic: Reports weakness PMFSH Past Medical History 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 Uncontrolled type 2 diabetes mellitus with hyperglycemia, with long-term current use of insulin Hidradenitis suppurativa Pneumonia Type 2 diabetes mellitus with hyperglycemia Paroxysmal atrial flutter Dysphonia Chronic cough Urinary frequency Dyspnea on exertion Unstable gait Asthma Chronic low back pain without sciatica Osteoarthritis of both knees Kidney stones Depression AMARJIT (obstructive sleep apnea) Normocytic anemia ESRD needing dialysis CHF (congestive heart failure) Obesity due to excess calories CAD (coronary artery disease) GERD (gastroesophageal reflux disease) Thyroid disease AV fistula HLD (hyperlipidemia) ESRD (end stage renal disease) T2DM (type 2 diabetes mellitus) End stage renal disease on dialysis Dialysis patient Renal failure (ARF), acute on chronic HTN (hypertension) Surgical History History of kidney surgery Hx of cholecystectomy Hx of bone graft Family History Family History Father CVD (cardiovascular disease) Diabetes Mother Diabetes Sister Stomach cancer Social History Social History Household Members: Family Housing: House Do you presently have visiting nurse or other home services: No Unable to assess alcohol history related to: Unknown Alcohol intake: never Patient Tobacco Use Status: Never used Tobacco Advance Directives: No Advance Directives Information Provided: No Advance Directives Date on File: 02/15/21 service: No Current occupational status: disabled Current occupation: right hand dominant Physical Exam ED Vital Signs: Vital Signs - 24 hr 08/11/23 19:31 08/11/23 22:09 Temperature 97.7 F Pulse Rate 60 60 Respiratory Rate 18 10 L Blood Pressure 172/41 H 160/62 H Pulse Oximetry 100 98 Oxygen Delivery Method Room Air Room Air BMI result Body Mass Index 39.6 Const General: healthy appearing, comfortable, no acute distress, alert and awake Nutritional Appearance: well nourished Orientation/consciousness: patient oriented x3 HENMT Head: Yes normocephalic and Yes atraumatic Eyes Eyelids: Yes eyelids normal Conjunctivae: conjunctivae normal Sclerae: sclerae normal Corneas: corneas normal Pupils: Equal, round and reactive pupils present EOM: EOMs intact bilaterally Neck Neck: Yes full ROM Resp Effort & Inspection: normal respiratory effort, able to speak in complete sentences, no audible wheezes and not labored Auscultation: clear to auscultation bilaterally Cardio Rate: regular rate Rhythm: regular rhythm GI Inspection: No distended Palpation (GI): Soft to palpation, not firm, nontender, no guarding and not rigid Skin Other: Left upper arm fistula General skin exam: elasticity normal Neuro General: patient oriented x3 Cranial nerves: Yes Equal, round and reactive pupils present and Yes Bilaterally intact EOM present Cognition (Neuro): normal cognition Extrem Other: Moving all extremities well without any obvious deformities Course Reevaluation(s) Reevaluation #1: Patient's glucose decreased to 91 after IV insulin. She reports that she has her Toujeo insulin prescribed to her however her sliding scale Humalog was discontinued by her pharmacy. Plan to treat UTI with Ceftin and will prescribe her sliding scale insulin. The patient is stable for discharge and has dialysis tomorrow morning. Patient's initial troponin was elevated to 126 which is consistent with previous labs. A repeat was ordered which was slightly elevated to 39.6. Patient's EKG remains unchanged from April of last year continues to deny chest pain. She ruled out for ACS. The troponemia is likely related to her end-stage renal disease Time: 23:31 Medications Administered Discontinued Medications Generic Name Dose Route Start Last Admin Trade Name Freq PRN Reason Stop Dose Admin Insulin Human Regular 10 unit 08/11/23 20:19 08/11/23 21:55 Insulin Regular, Human 100 Unit/Ml 3 Ml Vial IVPUSH 08/11/23 20:20 10 unit ONCE ONE Administration Medical Decision Making Medical Decision Making [facility] Narrative: 58-year-old female presents for evaluation of high blood sugar. She complains of general weakness, denies any specific symptoms. Denies any respiratory symptoms of cough, shortness of breath, leg swelling. Denies any chest pain, abdominal pain, nausea vomiting. Will check basic labs and beta hydroxybutyrate to evaluate for DKA. It appears the patient picked up a 60 day prescription of her insulin on July 23, less than 2 weeks ago. Given her history of renal disease on dialysis we will hold on aggressive IV fluid resuscitation. Differential Diagnosis Differential Diagnoses: The differential diagnosis associated with the presentation includes Hyperglycemia DKA Chest pain ACS Hypovolemia UTI Admission/Observation Consideration of admission/observation: Escalation of care including admission/observation considered Consider admission similar hyperglycemia hyperkalemia Lab Data [facility] Lab Attestation statement: I reviewed the patient's lab results. No leukocytosis. The patient has a mild anemia consistent with her baseline. Patient's labs are significant for a sodium of 132. This is a pseudo hyponatremia, once corrected for the glucose of just under 500 the sodium is within normal limits. Patient's potassium is slightly elevated to 5.2, however she is due for dialysis in a few hours. Her anion gap is 20, within normal limits. BUN and creatinine are significantly elevated but consistent with her known history of end-stage renal disease. Patient's initial troponin was 126.1., therefore a repeat was ordered 2 hours later which is 139.6. The patient continues to deny chest pain. Patient's beta hydroxybutyrate is within normal limits of 0.16. 08/11/23 20:32 08/11/23 20:32 Labs: Lab Results 08/11/23 08/11/23 08/11/23 Range/Units 19:29 20:32 22:25 WBC 7.1 (4.8-10.8) X10*3/uL RBC 3.36 L (4.20-5.50) X10*6/uL Hgb 10.7 L (12.0-16.0) g/dl Hct 30.1 L (37.0-47.0) % MCV 89.6 (80.0-98.0) fL MCH 31.8 (27.0-33.0) pg MCHC 35.5 H (31.0-35.0) g/dl RDW 13.4 (11.0-16.0) % Plt Count 151 L (160-400) X10*3/uL MPV 12.6 H (9.4-12.3) fL Absolute Nucleated RBC 0.000 (0.0-0.012) X10*3/uL Nucleated RBC % (auto) 0.0 (0.0-0.2) /100WBC Sodium 132 L (135-145) mmol/L Potassium 5.2 H (3.3-5.1) mmol/L Chloride 89 L (96-108) mmol/L Carbon Dioxide 28 (22-29) mmol/L Anion Gap 20 (12-20) BUN 51 H (9-16) mg/dL Creatinine 7.44 H* (0.5-1.4) mg/dL Estim Creat Clear Calc 9.4 Estimated GFR 6 POC Glucose 459 H* (60-115) mg/dL Random Glucose 497 H* (60-115) mg/dL Calcium 9.7 (8.4-10.2) mg/dL Troponin I High Sens 126.1 H* D (<3.5-17.0) ng/L Beta-Hydroxybutyrate 0.16 (0.02-0.27) mmol/L Urine Color Yellow Urine Appearance Clear Urine pH >= 9.0 (5.0-9.0) Ur Specific [place] 1.015 (1.005-1.025) Urine Protein 100 (2+) H (Neg-Trace) mg/dL Urine Glucose (UA) >=1000 H (Negative) mg/dL Urine Ketones Negative (Negative) mg/dL Urine Blood Negative (Negative) Urine Nitrite Negative (Negative) Ur Leukocyte Esterase Trace H (Negative) Urine RBC 0-2 (0-2) /HPF Urine WBC 11-20 (0-5) /HPF Ur Squamous Epith Cells 6-10 (0-2) /HPF Urine Bacteria 1+ (None Seen) Hyaline Casts 0-2 (0-2) /LPF Urine Yeast Present 08/11/23 08/11/23 Range/Units 22:43 22:53 WBC (4.8-10.8) X10*3/uL RBC (4.20-5.50) X10*6/uL Hgb (12.0-16.0) g/dl Hct (37.0-47.0) % MCV (80.0-98.0) fL MCH (27.0-33.0) pg MCHC (31.0-35.0) g/dl RDW (11.0-16.0) % Plt Count (160-400) X10*3/uL MPV (9.4-12.3) fL Absolute Nucleated RBC (0.0-0.012) X10*3/uL Nucleated RBC % (auto) (0.0-0.2) /100WBC Sodium (135-145) mmol/L Potassium (3.3-5.1) mmol/L Chloride (96-108) mmol/L Carbon Dioxide (22-29) mmol/L Anion Gap (12-20) BUN (9-16) mg/dL Creatinine (0.5-1.4) mg/dL Estim Creat Clear Calc Estimated GFR POC Glucose 291 H (60-115) mg/dL Random Glucose (60-115) mg/dL Calcium (8.4-10.2) mg/dL Troponin I High Sens 139.6 H* (<3.5-17.0) ng/L Beta-Hydroxybutyrate (0.02-0.27) mmol/L Urine Color Urine Appearance Urine pH (5.0-9.0) Ur Specific [place] (1.005-1.025) Urine Protein (Neg-Trace) mg/dL Urine Glucose (UA) (Negative) mg/dL Urine Ketones (Negative) mg/dL Urine Blood (Negative) Urine Nitrite (Negative) Ur Leukocyte Esterase (Negative) Urine RBC (0-2) /HPF Urine WBC (0-5) /HPF Ur Squamous Epith Cells (0-2) /HPF Urine Bacteria (None Seen) Hyaline Casts (0-2) /LPF Urine Yeast Independent Interpretation I performed an independent interpretation of an: EKG (Sinus bradycardia with first-degree AV block. No significant change when compared to April 2023) Discharge Plan Discharge Clinical Impression: Acute hyperglycemia, UTI (urinary tract infection) Patient Disposition: Home, Self-Care Instructions: Urinary Tract Infection in Women (ED), Diabetic Hyperglycemia (ED) Additional Instructions: Your workup was significant for UTI as well as an elevated blood sugar. Take your insulin as prescribed and follow-up with your primary doctor Take Ceftin daily for the next 5 days Take the medication after dialysis on days that you have dialysis Continue your dialysis as planned Prescriptions: New cefuroxime axetil 250 mg tablet 250 mg PO DAILY Qty: 5 0RF insulin lispro 100 unit/mL insulin pen 8 unit subcut TID Qty: 15 0RF Rx Instructions: Administer 8-14 units as directed with meals No Action (DME) blood-glucose meter [FreeStyle Lite Meter] Kit See Rx Instructions .ROUTE .MEDSUPPLY Qty: 1 0RF Rx Instructions: As directed amlodipine 10 mg tablet 10 mg PO QAM 90 Days Qty: 90 3RF Eliquis 5 mg tablet 5 mg PO BID 90 Days Qty: 180 3RF lisinopril 10 mg tablet 10 mg PO BEDTIME 90 Days Qty: 90 3RF (DME) lancets [TRUEplus Lancets] 33 gauge misc See Rx Instructions .ROUTE .COMPLEX Qty: 100 11RF Dose Instruction: TEST BLOOD SUGAR FOUR TIMES DAILY Rx Instructions: TEST BLOOD SUGAR FOUR TIMES DAILY (DME) pen needle, diabetic [BD Ultra-Fine Micro Pen Needle] 32 gauge x 1/4 needle See Rx Instructions .ROUTE .MEDSUPPLY Qty: 150 11RF Rx Instructions: As directed 4 times a day Toujeo Max U-300 SoloStar 300 unit/mL (3 mL) insulin pen 28 unit subcut DAILY 30 Days Qty: 6 6RF (DME) FreeStyle Lite Strips Strip See Rx Instructions .ROUTE .COMPLEX Qty: 100 11RF Dose Instruction: TEST BLOOD SUGAR FOUR TIMES DAILY Rx Instructions: TEST BLOOD SUGAR FOUR TIMES DAILY Januvia 25 mg tablet 25 mg PO QAM Qty: 30 6RF insulin lispro 100 unit/mL insulin pen 8 - 14 unit subcut USEASDIRECTD Qty: 15 5RF levothyroxine 25 mcg tablet 1 tab PO QAM hydralazine 50 mg tablet 1 tab PO TID@0900,1200,1800 gabapentin 100 mg capsule 200 mg PO BID melatonin 5 mg tablet 5 mg PO BEDTIME atorvastatin 40 mg tablet 40 mg PO DAILY sevelamer carbonate 800 mg tablet 800 mg PO TIDAC aspirin 81 mg tablet,delayed release (DR/EC) 1 tab PO DAILY cholecalciferol (vitamin D3) 50 mcg (2,000 unit) capsule 1 cap PO QAM metoprolol tartrate 50 mg tablet 50 mg PO Q12H Qty: 60 0RF cephalexin 500 mg capsule 500 mg PO BID Qty: 20 0RF tramadol 50 mg tablet 50 mg PO BID PRN (Reason: pain) Qty: 7 0RF tramadol 50 mg tablet 50 mg PO Q8H PRN (Reason: pain, severe) Qty: 5 0RF cefuroxime axetil 250 mg tablet 250 mg PO DAILY 6 Days Qty: 6 0RF oxycodone 5 mg tablet 5 mg PO BID PRN (Reason: pain) Qty: 10 0RF Rx Instructions: Partial Fill upon patient request. lidocaine 5 % adhesive patch,medicated 1 patch topical DAILY Qty: 30 0RF Rx Instructions: leave on most painful area for up to 12 hrs (DME) Dexcom G6 Paint Striping Machine Operator Misc See Rx Instructions .Route Qty: 1 0RF Rx Instructions: As directed (DME) Dexcom G6 Sensor Device See Rx Instructions .Route Qty: 3 5RF Rx Instructions: As directed change every 10 days (DME) Dexcom G6 Transmitter Device See Rx Instructions .Route Qty: 1 0RF Rx Instructions: As directed chlorhexidine gluconate [Hibiclens] 4 % liquid 1 appl topical .COMPLEX Qty: 473 3RF Rx Instructions: 1 appl topically lather in shower every 3-4 days, leave on skin for 1 monute before rinsing; doxycycline hyclate 100 mg tablet 100 mg PO BID 30 Days Qty: 60 3RF
[2023-08-11 20:41] LABS: Hematocrit 30.1 % (37.0-47.0); Hemoglobin 10.7 g/dl (12.0-16.0); Mean Corpuscular HGB Conc 35.5 g/dl (31.0-35.0); Mean Corpuscular Hemoglobin 31.8 pg (27.0-33.0); Mean Corpuscular Volume 89.6 fL (80.0-98.0); Mean Platelet Volume 12.6 fL (9.4-12.3); Platelet Count 151 X10*3/uL (160-400); Red Blood Count 3.36 X10*6/uL (4.20-5.50); Red Cell Distribution Width 13.4 % (11.0-16.0); White Blood Count 7.1 X10*3/uL (4.8-10.8)
[2023-08-11 20:54] LABS: Beta-Hydroxybutyrate 0.16 mmol/L (0.02-0.27)
[2023-08-11 20:56] LABS: Anion Gap 20 (12-20); Blood Urea Nitrogen 51 mg/dL (9-16); Calcium 9.7 mg/dL (8.4-10.2); Carbon Dioxide 28 mmol/L (22-29); Chloride 89 mmol/L (96-108); Creatinine Clr Calc Pharmacy 9.4; Estimated Glomerular Filt Rate 6; Glucose Random 497 mg/dL (60-115); Potassium 5.2 mmol/L (3.3-5.1); Sodium 132 mmol/L (135-145)
--- NOTE | 2023-08-11 21:06 | PC.NURSE ---
rec critical trop via phone from lab 126.1 ADRIAN baker notified via [employer]
[2023-08-11] MEDS: Insulin Regular, Human 100 UNIT/ML 3 ML VIAL 10 UNIT IVPUSH (21:55)
--- NOTE | 2023-08-11 21:58 | PC.NURSE ---
IV insulin administered late due to safety concern with stoney pal
[2023-08-11 22:09] VITALS: BP 160/62; PULSE 60; RESP 10; O2SAT 98
[2023-08-11 22:34] LABS: Appearance Urine Clear; Color Urine Yellow; Glucose Urine UA >=1000 mg/dL (Negative); Leukocyte Esterase Urine Trace (Negative); Nitrite Urine Negative (Negative); PH >= 9.0 (5.0-9.0); Specific Gravity - Urine 1.015 (1.005-1.025); UMIC TRIGGER UACC YES; Urine Blood Negative (Negative); Urine Ketones Negative (Negative); Urine Protein 100 (2+) mg/dL (Neg-Trace)
[2023-08-11 22:48] LABS: Bacteria Urine 1+ (None Seen); Hyaline Casts Urine 0-2 /LPF (0-2); RBC Urine 0-2 /HPF (0-2); UACC Culture Trigger YES
[2023-08-11 22:59] LABS: Glucose, Whole Blood 291 mg/dL (60-115)
[2023-08-11 23:10] LABS: Troponin-I High Sensitivity 139.6 ng/L (<3.5-17.0)
[2023-08-11] MEDS: cefuroxime axetiL 250 MG TABLET PO (23:59)
[2023-08-12 00:14] VITALS: BP 114/50; PULSE 60; RESP 12; TEMP 36.7; O2SAT 100
[2023-08-12 00:15] VITALS: BP 114/50; PULSE 60; RESP 12; TEMP 36.7; O2SAT 100
[2023-08-17 07:17] LABS: Troponin-I High Sensitivity 126.1 ng/L (<3.5-17.0)
== END 2023-08-12 00:17 | disposition home or self-care (01) ==
PROVIDERS: Physician Assistant; Emergency Provider Internal Medicine
DX: E11.65 Type 2 diabetes mellitus with hyperglycemia (principal); N39.0 Urinary tract infection, site not specified; R53.1 Weakness; R00.1 Bradycardia, unspecified; I48.92 Unspecified atrial flutter; R07.89 Other chest pain; Z79.899 Other long term (current) drug therapy; Z79.01 Long term (current) use of anticoagulants; Z79.4 Long term (current) use of insulin
CPT/HCPCS: 36415; 80048; 81001; 82010; 82947; 84484; 85027; 87086; 93005; 96374; 99284

== ENCOUNTER → 2023-08-11 20:02 | Outpatient (BNV) | payer MEDICAID, SELFPAY | PROVIDERS: Emergency Provider Internal Medicine; Visit Provider Internal Medicine | DX: R00.1 Bradycardia, unspecified (principal); I44.0 Atrioventricular block, first degree | CPT/HCPCS: 93010 ==

== ENCOUNTER 2023-08-14 16:26 | Emergency (ER) | payer MEDICAID, SELFPAY ==
--- NOTE | 2023-08-14 16:45 | ED.GENADULT ---
HPI - General Adult General Chief complaint: Weakness Stated complaint: WEAKNESS SINCE THIS AM, COMING FROM DIALYSIS Time Seen by Provider: 08/14/23 16:44 Source: patient Mode of arrival: EMS Limitations: no limitations History of Present Illness HPI narrative: Patient is 58 years old with history which fibrillation on Eliquis, diabetes, GERD, hypertension hypothyroidism end-stage renal disease on dialysis been feeling weak and confused since a.m. today came from dialysis no fever had chills no cough /shortness of breath no nausea no vomiting no diarrhea no other family member sick Related Data Home Medications Medication Instructions Recorded Confirmed gabapentin 100 mg capsule 200 mg PO BID neuropathic pain 02/12/21 04/02/23 hydralazine 50 mg tablet 1 tab PO TID@0900,1200,1800 blood 02/12/21 04/02/23 pressure levothyroxine 25 mcg tablet 1 tab PO QAM 02/12/21 04/02/23 melatonin 5 mg tablet 5 mg PO BEDTIME 02/12/21 04/02/23 atorvastatin 40 mg tablet 40 mg PO DAILY cholesterol 02/26/21 04/02/23 sevelamer carbonate 800 mg tablet 800 mg PO TIDAC 02/26/21 04/02/23 aspirin 81 mg tablet,delayed 1 tab PO DAILY 10/12/21 04/02/23 release cholecalciferol (vitamin D3) 50 1 cap PO QAM 10/12/21 04/02/23 mcg (2,000 unit) capsule Previous Rx's Medication Instructions Recorded blood-glucose meter (FreeStyle #1 ea 04/24/21 Lite Meter kit) metoprolol tartrate 50 mg tablet 50 mg PO Q12H #60 tabs 06/28/21 amlodipine 10 mg tablet 10 mg PO QAM blood pressure 90 08/02/21 days #90 tabs apixaban 5 mg tablet (Eliquis) 5 mg PO BID 90 days #180 tabs 08/02/21 lisinopril 10 mg tablet 10 mg PO BEDTIME blood pressure 90 08/02/21 days #90 tabs lancets 33 gauge (TRUEplus Lancets) ##100 06/05/22 pen needle, diabetic 32 gauge x #150 ea 07/02/2205/28 (BD Ultra-Fine Micro Pen Needle) chlorhexidine gluconate 4 % 1 appl topical .COMPLEX 2 doses 02/14/23 topical liquid (Hibiclens) #473 mL cephalexin 500 mg capsule 500 mg PO BID #20 caps 07/29/22 tramadol 50 mg tablet 50 mg PO BID PRN pain #7 tabs 07/29/22 doxycycline hyclate 100 mg tablet 100 mg PO BID 30 days #60 tabs 08/26/22 blood-glucose meter,continuous #1 ea 09/11/22 (Dexcom G6 Roll Coating Machine Operator) blood-glucose sensor (Dexcom G6 #3 ea 09/11/22 Sensor device) blood-glucose transmitter (Dexcom #1 ea 09/11/22 G6 Transmitter device) insulin glargine U-300 conc 300 28 unit (0.0933 mL) subcut DAILY 09/30/22 unit/mL (3 mL) subcutaneous pen 30 days #6 mL (Toujeo Max U-300 SoloStar) tramadol 50 mg tablet 50 mg PO Q8H PRN pain, severe #5 03/06/23 tabs cefuroxime axetil 250 mg tablet 250 mg PO DAILY 6 days #6 tabs 05/03/23 lidocaine 5 % topical patch 1 patch topical DAILY #30 ea 05/03/23 oxycodone 5 mg tablet 5 mg PO BID PRN pain #10 tabs 05/03/23 blood sugar diagnostic (FreeStyle #100 strips 05/18/23 Lite Strips) sitagliptin phosphate 25 mg tablet 25 mg PO QAM #30 tabs 07/24/23 (Januvia) cefuroxime axetil 250 mg tablet 250 mg PO DAILY #5 tabs 08/11/23 insulin lispro 100 unit/mL 8 - 14 unit (0.08 - 0.14 mL) 08/11/23 subcutaneous pen subcut USEASDIRECTD #15 mL insulin lispro 100 unit/mL 8 unit (0.08 mL) subcut TID #15 mL 08/11/23 subcutaneous pen Allergies Allergy/AdvReac Type Severity Reaction Status Date / Time No Known Allergies Allergy Verified 08/11/23 19:27 [No Known Allergies*] Review of Systems Review of Systems: Yes all other systems are reviewed and are negative PMFSH Past Medical History 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 Uncontrolled type 2 diabetes mellitus with hyperglycemia, with long-term current use of insulin Hidradenitis suppurativa Pneumonia Type 2 diabetes mellitus with hyperglycemia Paroxysmal atrial flutter Dysphonia Chronic cough Urinary frequency Dyspnea on exertion Unstable gait Asthma Chronic low back pain without sciatica Osteoarthritis of both knees Kidney stones Depression AMARJIT (obstructive sleep apnea) Normocytic anemia ESRD needing dialysis CHF (congestive heart failure) Obesity due to excess calories CAD (coronary artery disease) GERD (gastroesophageal reflux disease) Thyroid disease AV fistula HLD (hyperlipidemia) ESRD (end stage renal disease) T2DM (type 2 diabetes mellitus) End stage renal disease on dialysis Dialysis patient Renal failure (ARF), acute on chronic HTN (hypertension) Surgical History History of kidney surgery Hx of cholecystectomy Hx of bone graft Family History Family History Father CVD (cardiovascular disease) Diabetes Mother Diabetes Sister Stomach cancer Social History Social History Household Members: Family Housing: House Do you presently have visiting nurse or other home services: No Unable to assess alcohol history related to: Unknown Alcohol intake: never Patient Tobacco Use Status: Never used Tobacco Advance Directives: Yes Advance Directives on File: Yes Advance Directives Date on File: 02/15/21 service: No Current occupational status: disabled Current occupation: right hand dominant Physical Exam ED Vital Signs: Vital Signs - 24 hr 08/14/23 17:23 08/14/23 21:19 Temperature 98.3 F 98.0 F Pulse Rate 65 69 Respiratory Rate 20 17 Blood Pressure 126/44 L 143/40 H Pulse Oximetry 97 94 Oxygen Delivery Method Room Air Room Air BMI result Body Mass Index 86.3 Appearance: Alert. Oriented X3. No acute distress. Eyes: Pallor ENT: Pharynx normal. Oral Mucosa moist Neck: Normal inspection. Neck supple. CVS: Normal heart rate and rhythm. Pulses normal. Respiratory: No respiratory distress. Equal air entry bilateral, no wheezing/rales/rhonchi Abdomen: Soft and nontender. Bowel sounds are present, no mass palpable, no CVA tenderness Skin: Skin warm and dry. Normal skin color. Normal skin turgor. Extremities: No lower extremity edema. No calf tenderness AV fistula left arm with bruit+ Neuro: Oriented X 3. No motor deficit. Medical Decision Making Medical Decision Making MDM Narrative: Patient obese with history of sleep apnea not using CPAP on dialysis has physical therapy at home and PC coming to her home 3 times a week to help her out in ambulation and ADLs patient feels very weak unable to ambulate without assistance refusing go to rehab will get case management involved for increasing help at home patient's workup is essentially negative no signs of infection patient was seen here on 08/10 Differential Diagnosis Differential Diagnoses: The differential diagnosis associated with the presentation includes Metabolic encephalopathy/UTI/morbid obesity Admission/Observation Consideration of admission/observation: Escalation of care including admission/observation considered Lab Data MDM Lab Attestation statement: I reviewed the patient's lab results. 08/14/23 18:15 08/14/23 18:16 Labs: Lab Results 08/14/23 08/14/23 08/14/23 Range/Units 18:15 18:16 18:20 WBC 9.1 (4.8-10.8) X10*3/uL RBC 3.07 L (4.20-5.50) X10*6/uL Hgb 9.7 L (12.0-16.0) g/dl Hct 28.3 L (37.0-47.0) % MCV 92.2 (80.0-98.0) fL MCH 31.6 (27.0-33.0) pg MCHC 34.3 (31.0-35.0) g/dl RDW 13.8 (11.0-16.0) % Plt Count 182 (160-400) X10*3/uL MPV 11.9 (9.4-12.3) fL Immature Gran % (Auto) 0.9 H (0.0-0.4) % Neut % (Auto) 76.0 H (45-73) % Lymph % (Auto) 11.8 L (20-40) % [place] % (Auto) 8.8 (2-11) % Eos % (Auto) 2.2 (0-4) % Baso % (Auto) 0.3 (0-2) % Lymph # (Auto) 1.1 L (1.2-4.9) X10*3/uL [place] # (Auto) 0.8 (0.1-1.2) X10*3/uL Eos # (Auto) 0.2 (0.0-0.4) X10*3/uL Baso # (Auto) 0.0 (0.0-0.2) X10*3/uL Abs Immat Gran (auto) 0.08 H (0.00-0.03) X10*3/uL Absolute Neuts (auto) 6.9 (2.0-8.3) x10*3/uL Absolute Nucleated RBC 0.000 (0.0-0.012) X10*3/uL Nucleated RBC % (auto) 0.0 (0.0-0.2) /100WBC VBG pH 7.58 H (7.32-7.43) VBG pCO2 41 mmHg VBG pO2 54 mmHg VBG HCO3 39 H (22-26) mmol/L VBG O2 Saturation 88.0 % VBG Base Excess 16.1 mmol/L Sodium 133 L (135-145) mmol/L Potassium 4.1 D (3.3-5.1) mmol/L Chloride 90 L (96-108) mmol/L Carbon Dioxide 30 H (22-29) mmol/L Anion Gap 17 (12-20) BUN 36 H (9-16) mg/dL Creatinine 5.41 H* (0.5-1.4) mg/dL Estim Creat Clear Calc 21.7 Estimated GFR 8 Random Glucose 192 H (60-115) mg/dL Lactic Acid 1.2 (0.5-2.0) mmol/L Calcium 9.5 (8.4-10.2) mg/dL Total Bilirubin 0.8 (0.0-1.0) mg/dL AST 9 (5-31) U/L ALT 9 (0-31) U/L Alkaline Phosphatase 104 (39-117) U/L Total Protein 7.9 (6.5-8.0) g/dL Albumin 3.6 (3.5-5.0) g/dL Urine Color Urine Appearance Urine pH (5.0-9.0) Ur Specific [place] (1.005-1.025) Urine Protein (Neg-Trace) mg/dL Urine Glucose (UA) (Negative) mg/dL Urine Ketones (Negative) mg/dL Urine Blood (Negative) Urine Nitrite (Negative) Ur Leukocyte Esterase (Negative) Urine RBC (0-2) /HPF Urine WBC (0-5) /HPF Ur Squamous Epith Cells (0-2) /HPF Urine Bacteria (None Seen) Hyaline Casts (0-2) /LPF Influenza Type A (PCR) NEGATIVE (Negative) Influenza Type B (PCR) NEGATIVE (Negative) RSV RNA Qual (PCR) NEGATIVE (Negative) SARS-CoV-2 RNA (RT-PCR) NEGATIVE (Negative) 08/14/23 Range/Units 19:37 WBC (4.8-10.8) X10*3/uL RBC (4.20-5.50) X10*6/uL Hgb (12.0-16.0) g/dl Hct (37.0-47.0) % MCV (80.0-98.0) fL MCH (27.0-33.0) pg MCHC (31.0-35.0) g/dl RDW (11.0-16.0) % Plt Count (160-400) X10*3/uL MPV (9.4-12.3) fL Immature Gran % (Auto) (0.0-0.4) % Neut % (Auto) (45-73) % Lymph % (Auto) (20-40) % [place] % (Auto) (2-11) % Eos % (Auto) (0-4) % Baso % (Auto) (0-2) % Lymph # (Auto) (1.2-4.9) X10*3/uL [place] # (Auto) (0.1-1.2) X10*3/uL Eos # (Auto) (0.0-0.4) X10*3/uL Baso # (Auto) (0.0-0.2) X10*3/uL Abs Immat Gran (auto) (0.00-0.03) X10*3/uL Absolute Neuts (auto) (2.0-8.3) x10*3/uL Absolute Nucleated RBC (0.0-0.012) X10*3/uL Nucleated RBC % (auto) (0.0-0.2) /100WBC VBG pH (7.32-7.43) VBG pCO2 mmHg VBG pO2 mmHg VBG HCO3 (22-26) mmol/L VBG O2 Saturation % VBG Base Excess mmol/L Sodium (135-145) mmol/L Potassium (3.3-5.1) mmol/L Chloride (96-108) mmol/L Carbon Dioxide (22-29) mmol/L Anion Gap (12-20) BUN (9-16) mg/dL Creatinine (0.5-1.4) mg/dL Estim Creat Clear Calc Estimated GFR Random Glucose (60-115) mg/dL Lactic Acid (0.5-2.0) mmol/L Calcium (8.4-10.2) mg/dL Total Bilirubin (0.0-1.0) mg/dL AST (5-31) U/L ALT (0-31) U/L Alkaline Phosphatase (39-117) U/L Total Protein (6.5-8.0) g/dL Albumin (3.5-5.0) g/dL Urine Color Yellow Urine Appearance Clear Urine pH >= 9.0 (5.0-9.0) Ur Specific [place] 1.015 (1.005-1.025) Urine Protein 100 (2+) H (Neg-Trace) mg/dL Urine Glucose (UA) 500 H (Negative) mg/dL Urine Ketones Negative (Negative) mg/dL Urine Blood Negative (Negative) Urine Nitrite Negative (Negative) Ur Leukocyte Esterase Negative (Negative) Urine RBC 0-2 (0-2) /HPF Urine WBC 0-5 (0-5) /HPF Ur Squamous Epith Cells 0-2 (0-2) /HPF Urine Bacteria None Seen (None Seen) Hyaline Casts 0-2 (0-2) /LPF Influenza Type A (PCR) (Negative) Influenza Type B (PCR) (Negative) RSV RNA Qual (PCR) (Negative) SARS-CoV-2 RNA (RT-PCR) (Negative) Discharge Plan Discharge Clinical Impression: Weakness Patient Disposition: Home, Self-Care Instructions: Weakness (ED) Additional Instructions: Continue take your medications as prescribed and follow-up with your PCP Continue your physical therapy Prescriptions: No Action (DME) blood-glucose meter [FreeStyle Lite Meter] Kit See Rx Instructions .ROUTE .MEDSUPPLY Qty: 1 0RF Rx Instructions: As directed amlodipine 10 mg tablet 10 mg PO QAM 90 Days Qty: 90 3RF Eliquis 5 mg tablet 5 mg PO BID 90 Days Qty: 180 3RF lisinopril 10 mg tablet 10 mg PO BEDTIME 90 Days Qty: 90 3RF (DME) lancets [TRUEplus Lancets] 33 gauge misc See Rx Instructions .ROUTE .COMPLEX Qty: 100 11RF Dose Instruction: TEST BLOOD SUGAR FOUR TIMES DAILY Rx Instructions: TEST BLOOD SUGAR FOUR TIMES DAILY (DME) pen needle, diabetic [BD Ultra-Fine Micro Pen Needle] 32 gauge x 1/4 needle See Rx Instructions .ROUTE .MEDSUPPLY Qty: 150 11RF Rx Instructions: As directed 4 times a day Toujeo Max U-300 SoloStar 300 unit/mL (3 mL) insulin pen 28 unit subcut DAILY 30 Days Qty: 6 6RF (DME) FreeStyle Lite Strips Strip See Rx Instructions .ROUTE .COMPLEX Qty: 100 11RF Dose Instruction: TEST BLOOD SUGAR FOUR TIMES DAILY Rx Instructions: TEST BLOOD SUGAR FOUR TIMES DAILY Januvia 25 mg tablet 25 mg PO QAM Qty: 30 6RF insulin lispro 100 unit/mL insulin pen 8 - 14 unit subcut USEASDIRECTD Qty: 15 5RF levothyroxine 25 mcg tablet 1 tab PO QAM hydralazine 50 mg tablet 1 tab PO TID@0900,1200,1800 gabapentin 100 mg capsule 200 mg PO BID melatonin 5 mg tablet 5 mg PO BEDTIME atorvastatin 40 mg tablet 40 mg PO DAILY sevelamer carbonate 800 mg tablet 800 mg PO TIDAC aspirin 81 mg tablet,delayed release (DR/EC) 1 tab PO DAILY cholecalciferol (vitamin D3) 50 mcg (2,000 unit) capsule 1 cap PO QAM metoprolol tartrate 50 mg tablet 50 mg PO Q12H Qty: 60 0RF cephalexin 500 mg capsule 500 mg PO BID Qty: 20 0RF tramadol 50 mg tablet 50 mg PO BID PRN (Reason: pain) Qty: 7 0RF cefuroxime axetil 250 mg tablet 250 mg PO DAILY Qty: 5 0RF insulin lispro 100 unit/mL insulin pen 8 unit subcut TID Qty: 15 0RF Rx Instructions: Administer 8-14 units as directed with meals tramadol 50 mg tablet 50 mg PO Q8H PRN (Reason: pain, severe) Qty: 5 0RF cefuroxime axetil 250 mg tablet 250 mg PO DAILY 6 Days Qty: 6 0RF oxycodone 5 mg tablet 5 mg PO BID PRN (Reason: pain) Qty: 10 0RF Rx Instructions: Partial Fill upon patient request. lidocaine 5 % adhesive patch,medicated 1 patch topical DAILY Qty: 30 0RF Rx Instructions: leave on most painful area for up to 12 hrs (DME) Dexcom G6 Roll Coating Machine Operator Misc See Rx Instructions .Route Qty: 1 0RF Rx Instructions: As directed (DME) Dexcom G6 Sensor Device See Rx Instructions .Route Qty: 3 5RF Rx Instructions: As directed change every 10 days (DME) Dexcom G6 Transmitter Device See Rx Instructions .Route Qty: 1 0RF Rx Instructions: As directed chlorhexidine gluconate [Hibiclens] 4 % liquid 1 appl topical .COMPLEX Qty: 473 3RF Rx Instructions: 1 appl topically lather in shower every 3-4 days, leave on skin for 1 monute before rinsing; doxycycline hyclate 100 mg tablet 100 mg PO BID 30 Days Qty: 60 3RF
[2023-08-14 17:23] VITALS: BP 126/44; PULSE 65; RESP 20; TEMP 36.8; O2SAT 97; BMI 86.3
[2023-08-14 18:24] LABS: MANUAL DIFF FLAG NO
[2023-08-14 18:25] LABS: Basophils Percent Auto 0.3 % (0-2); Eosinophils Absolute Auto 0.2 X10*3/uL (0.0-0.4); Eosinophils Percent Auto 2.2 % (0-4); Hematocrit 28.3 % (37.0-47.0); Hemoglobin 9.7 g/dl (12.0-16.0); Imm Gran Abs Auto 0.08 X10*3/uL (0.00-0.03); Imm Gran Pct Auto 0.9 % (0.0-0.4); Lymphocytes Absolute Auto 1.1 X10*3/uL (1.2-4.9); Lymphocytes Percent Auto 11.8 % (20-40); Mean Corpuscular HGB Conc 34.3 g/dl (31.0-35.0); Mean Corpuscular Hemoglobin 31.6 pg (27.0-33.0); Mean Corpuscular Volume 92.2 fL (80.0-98.0); Mean Platelet Volume 11.9 fL (9.4-12.3); Monocytes Absolute Auto 0.8 X10*3/uL (0.1-1.2); Monocytes Percent Auto 8.8 % (2-11); Neutrophils Absolute Auto 6.9 x10*3/uL (2.0-8.3); Platelet Count 182 X10*3/uL (160-400); Red Blood Count 3.07 X10*6/uL (4.20-5.50); Red Cell Distribution Width 13.8 % (11.0-16.0); White Blood Count 9.1 X10*3/uL (4.8-10.8)
[2023-08-14 18:28] LABS: VBG Base Excess 16.1 mmol/L; VBG HCO3 39 mmol/L (22-26); VBG pCO2 41 mmHg; VBG pH 7.58 (7.32-7.43); VBG pO2 54 mmHg
[2023-08-14 18:30] LABS: Venous Blood Gas Refer to POC result
[2023-08-14 18:35] LABS: Lactic Acid 1.2 mmol/L (0.5-2.0)
[2023-08-14 18:55] LABS: Alanine Aminotransferase 9 U/L (0-31); Albumin Level 3.6 g/dL (3.5-5.0); Alkaline Phosphatase 104 U/L (39-117); Anion Gap 17 (12-20); Aspartate Amino Transferase 9 U/L (5-31); Bilirubin Total 0.8 mg/dL (0.0-1.0); Blood Urea Nitrogen 36 mg/dL (9-16); Calcium 9.5 mg/dL (8.4-10.2); Carbon Dioxide 30 mmol/L (22-29); Chloride 90 mmol/L (96-108); Creatinine Clr Calc Pharmacy 21.7; Estimated Glomerular Filt Rate 8; Glucose Random 192 mg/dL (60-115); Potassium 4.1 mmol/L (3.3-5.1); Sodium 133 mmol/L (135-145); Total Protein 7.9 g/dL (6.5-8.0)
[2023-08-14 19:01] LABS: Influenza A PCR NEGATIVE (Negative); Influenza B PCR NEGATIVE (Negative); Resp Syncy Virus RNA Qual PCR NEGATIVE (Negative); SARS COV2 PCR INHOUSE NEGATIVE (Negative)
[2023-08-14 19:48] LABS: Appearance Urine Clear; Color Urine Yellow; Glucose Urine UA 500 mg/dL (Negative); Leukocyte Esterase Urine Negative (Negative); Nitrite Urine Negative (Negative); PH >= 9.0 (5.0-9.0); Specific Gravity - Urine 1.015 (1.005-1.025); UMIC TRIGGER UACC YES; Urine Blood Negative (Negative); Urine Ketones Negative (Negative); Urine Protein 100 (2+) mg/dL (Neg-Trace)
[2023-08-14 19:53] LABS: Bacteria Urine None Seen (None Seen); Hyaline Casts Urine 0-2 /LPF (0-2); RBC Urine 0-2 /HPF (0-2); Squamous Epithelial Cell Urine 0-2 /HPF (0-2); WBC Urine 0-5 /HPF (0-5)
--- NOTE | 2023-08-14 21:16 | MHC.CM.ED ---
Dr. Gamez requested CM speak with patient and her regarding home services. Pt has been seen in [facility] ED 08/06- and 08/10-08/11. [facility] has been arranged and they had their first visit yesterday. She will have SN and PT services. They will begin next week. Pt has ESRD on dialysis and receives dialysis on at [facility] in [place]. Pt has had dialysis for 5 years. Pt has a AMERICAN INDIAN STUDIES PROFESSOR, a cousin, who is paid by [employer]. She only works 10 hours/wk. Pt has been approved for 20 hours/wk. They have a friend who is willing to help her fill in additional hours. CM explained that they need to speak with their personal care service provider, or with [employer] so the friend can get paid. Also explained that if they need more hours, they have to speak with their personal care service provider also. Pt has been discharged. Provider aware. alumni secretary will book BLS transport home. Patient and have no further questions.
[2023-08-14 21:19] VITALS: BP 143/40; PULSE 69; RESP 17; TEMP 36.7; O2SAT 94
--- NOTE | 2023-08-14 21:24 | PC.NURSE ---
this rn assumed care of pt @ 1900 straight cath placed to obtain urine sample. pt tolerated well. 150ml immediate urine output, clear pale yellow urine
[2023-08-14 22:03] LABS: Thyroid Stimulating Hormone 3.36 uIU/mL (0.32-4.0)
[2023-08-14 22:22] VITALS: BP 143/40; PULSE 69; RESP 17; TEMP 36.7; O2SAT 94
== END 2023-08-14 22:29 | disposition home or self-care (01) ==
PROVIDERS: Emergency Provider Internal Medicine
DX: R53.1 Weakness (principal); I12.0 Hypertensive chronic kidney disease with stage 5 chronic kidney disease or end stage renal disease; E11.22 Type 2 diabetes mellitus with diabetic chronic kidney disease; N18.6 End stage renal disease; G47.30 Sleep apnea, unspecified; E66.9 Obesity, unspecified; Z99.2 Dependence on renal dialysis; Z11.52 Encounter for screening for COVID-19; Z20.828 Contact with and (suspected) exposure to other viral communicable diseases
CPT/HCPCS: 0241U; 36415; 51701; 80053; 81001; 82803; 83605; 84443; 85025; 87040; 99283; 99284

== ENCOUNTER 2023-10-13 16:37 | Outpatient (REF) | payer MEDICAID, SELFPAY ==
[2023-10-14 09:14] LABS: Bacterial Vaginosis PCR NEGATIVE (Negative); Candida Group PCR DETECTED (Not Detect); Candida glab krusei PCR DETECTED (Not Detect); Trichomonas vaginalis PCR NOT DETECTED (Not Detect)
[2023-10-21 22:47] LABS: HPV mRNA E6/E7 rflx Not Detected (Not Detected)
== END 2023-10-13 16:38 | disposition home or self-care (01) ==
LOC: HO.HHCLNP 16:37
PROVIDERS: Visit Provider Advanced Practice Midwife
DX: Z01.419 Encounter for gynecological examination (general) (routine) without abnormal findings (principal); N89.8 Other specified noninflammatory disorders of vagina
CPT/HCPCS: 0352U; 87624; 88142

== ENCOUNTER 2023-11-12 13:20 | Outpatient (REF) | payer MEDICAID, SELFPAY ==
--- NOTE | ~2023-11-12 | US_ITS ---
EXAMINATION: US PELVIS CLINICAL INFORMATION: Pelvic pain. COMPARISON: CT abdomen and pelvis 05/01/2022. TECHNIQUE: Ultrasound of the pelvis is performed using both transabdominal and transvaginal transducers along with Doppler. Transvaginal imaging is performed due to inadequate visualization transabdominally. FINDINGS: Uterus: The uterus is anteverted and measures 7.9 x 4.0 x 4.1 cm. The double wall endometrial thickness is 3 mm. The uterus is smooth in contour and has normal myometrial echogenicity with the exception of a left-sided subserosal fibroid measuring 6.0 x 5.2 x 6.4 cm. At the time of the prior CT scan, this is difficult to see but probably measured about the same size at 5.6 x 6.2 cm in the transverse plane. Nabothian cysts are present in the cervix. Adnexa: Neither ovary could be seen. No free fluid in the cul-de-sac. US/US pelvic and transvaginal IMPRESSION: Large left-sided subserosal fibroid. Neither ovary could be seen.
== END 2023-11-12 13:21 | disposition home or self-care (01) ==
LOC: HO.US 13:20
PROVIDERS: PCP Internal Medicine; Visit Provider Advanced Practice Midwife
DX: R10.2 Pelvic and perineal pain (principal)
CPT/HCPCS: 76830; 76856

== ENCOUNTER 2023-12-01 12:56 | Outpatient (REF) | payer MEDICAID, SELFPAY ==
[2023-12-01 13:13] LABS: MANUAL DIFF FLAG NO
[2023-12-01 13:59] LABS: Basophils Percent Auto 0.6 % (0-2); Eosinophils Absolute Auto 0.4 X10*3/uL (0.0-0.4); Eosinophils Percent Auto 5.5 % (0-4); Hematocrit 34.4 % (37.0-47.0); Hemoglobin 11.2 g/dl (12.0-16.0); Imm Gran Abs Auto 0.03 X10*3/uL (0.00-0.03); Imm Gran Pct Auto 0.5 % (0.0-0.4); Lymphocytes Absolute Auto 1.4 X10*3/uL (1.2-4.9); Lymphocytes Percent Auto 20.5 % (20-40); Mean Corpuscular HGB Conc 32.6 g/dl (31.0-35.0); Mean Corpuscular Hemoglobin 30.4 pg (27.0-33.0); Mean Corpuscular Volume 93.5 fL (80.0-98.0); Mean Platelet Volume 12.4 fL (9.4-12.3); Monocytes Absolute Auto 0.3 X10*3/uL (0.1-1.2); Monocytes Percent Auto 4.7 % (2-11); Neutrophils Absolute Auto 4.5 x10*3/uL (2.0-8.3); Neutrophils Percent Auto 68.2 % (45-73); Platelet Count 173 X10*3/uL (160-400); Red Blood Count 3.68 X10*6/uL (4.20-5.50); Red Cell Distribution Width 14.7 % (11.0-16.0); White Blood Count 6.6 X10*3/uL (4.8-10.8)
[2023-12-01 14:26] LABS: Cholesterol 77 mg/dL (<200); HDL Cholesterol 31 mg/dL (>40); LDL Cholesterol Calculated 30 mg/dL (<100); Triglycerides 81 mg/dL (<150)
[2023-12-01 16:11] LABS: Reflex LDLD? No
== END 2023-12-01 12:57 | disposition home or self-care (01) ==
LOC: HO.LAB 12:56
PROVIDERS: PCP Internal Medicine; Visit Provider Internal Medicine
DX: I10 Essential (primary) hypertension (principal); R39.9 Unspecified symptoms and signs involving the genitourinary system
CPT/HCPCS: 36415; 80061; 85025

== ENCOUNTER 2023-12-03 14:24 | Outpatient (AMB) | payer MEDICAID, SELFPAY ==
--- NOTE | 2023-12-03 14:26 | A.OFFVIS_ITS ---
Vital Signs 12/03/23 14:29 Height 5 ft 3 in Weight 221 lb 12.56 oz BMI 39.3 BP 126/90 H Blood Pressure Location Rt brachial Position Sitting Pulse 61 Pulse Source Pulse Oximeter Intake Visit Reasons: DM2/LVM Intake Note: New Patient presents today to established treatment for Diabetes Type 2: Most recent Eye Exam: 12/02/23 Most recent Podiatry Exam: Does not see a Digital Marketing Officer Most recent: 9.1% HbA1c Random Glucose: 386 mg/dL Government Property Inspector Required: Yes Government Property Inspector Language: Nurse Paralegal Services: Government Property Inspector Offered & Declined Accompanied by: SHAREPOINT CONSULTANT Allergies No Known Allergies [No Known Allergies*] Allergy (Verified 12/03/23 14:33) HPI Comments Details: Patient is a? 58-year-old female with DM type 2 diagnose who presents for continued management of her diabetes. Patient was last seen on 09/[address] Miller. Past medical history includes :? diabetes type 2, end-stage renal disease,dialysis MWF Micro and macrovascular complications: end-stage renal disease, retinopathy with current anti VEGF therapy Diabetes medications: ? Januvia 25 mg PO daily Toujeo? 28 units Humalog sliding scale to? 80-100: 8 units; 101-200: 10 units; 201-300: 12 units; >301 14 units.? Hyperglycemia: + polyuria Hypoglycemia rare 3 nights ago had a low in the 60's she treated with orange juice 1/2 glass Exercise: limited Loading Machine Operator - CDE education: sees legal document assistant at dialysis Digital Marketing Officer: denies Ophthalmology evaluation: last eye appointment 12/02/23 Has had retinal injections. 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 Uncontrolled type 2 diabetes mellitus with hyperglycemia, with long-term current use of insulin Hidradenitis suppurativa Pneumonia Type 2 diabetes mellitus with hyperglycemia Paroxysmal atrial flutter Dysphonia Chronic cough Urinary frequency Dyspnea on exertion Unstable gait Asthma Chronic low back pain without sciatica Osteoarthritis of both knees Kidney stones Depression AMARJIT (obstructive sleep apnea) Normocytic anemia ESRD needing dialysis CHF (congestive heart failure) Obesity due to excess calories CAD (coronary artery disease) GERD (gastroesophageal reflux disease) Thyroid disease AV fistula HLD (hyperlipidemia) ESRD (end stage renal disease) T2DM (type 2 diabetes mellitus) End stage renal disease on dialysis Dialysis patient Renal failure (ARF), acute on chronic HTN (hypertension) Surgical History History of kidney surgery Hx of cholecystectomy Hx of bone graft Family History Father CVD (cardiovascular disease) Diabetes Mother Diabetes Sister Stomach cancer Social History Household Members: Family Housing: House Do you presently have visiting nurse or other home services: No Unable to assess alcohol history related to: Unknown Alcohol intake: never Patient Tobacco Use Status: Never used Tobacco Advance Directives Date on File: 02/15/21 service: No Current occupational status: disabled Current occupation: right hand dominant Physical Exam Vital Signs: Last Vital Signs Pulse 61 12/03/23 14:29 BP 126/90 H 12/03/23 14:29 BMI result Body Mass Index 39.3 Neck Neck: Yes normal visual inspection Thyroid: Thyroid normal Lymphatic: no lymphadenopathy noted Resp Effort & Inspection: normal respiratory effort Cardio Jugular venous distension: no JVD Extrem Other: Visual exam of foot performed. No ulcerations or open lesions. No onchomycosis, no callouses. Sensation intact to monofilament exam. with exception of left great toe. Vibratory sensation is normal with 128 Hz tuning fork. Results AMB Hemoglobin A1c AMB Hemoglobin A1c 9.1 % Last Edit by JOY Archer on 12/03/23 14:45 Results Reviewed Results Reviewed: Laboratory Last Values Glucose (Clinic) 386 mg/dL (60-115) H* 12/03/23 14:35 Laboratory Tests 08/14/23 12/01/23 18:16 13:06 Hgb 11.2 L Hct 34.4 L D Potassium 4.1 D Creatinine 5.41 H* Lactic Acid 1.2 Calcium 9.5 AST 9 ALT 9 Alkaline Phosphatase 104 Triglycerides 81 Cholesterol 77 LDL Cholesterol, Calc 30 HDL Cholesterol 31 L TSH 3.36 Assessment & Plan Assessment & Plan (1) 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: Code(s): E11.22 - Type 2 diabetes mellitus with diabetic chronic kidney disease; N18.6 - End stage renal disease Category: Medical Plan: poor glycemic control in a patient with end-stage renal disease and retinopathy. We will stop Toujeo and changed to degludec as this will provide a more consistent basal coverage. She was see the Ashlyn Rojas CDE today for training on freestyle 3 and I will see her back in 2 weeks to review results .Diabetes medications: ? Januvia 25 mg PO daily Degludec u200 32 units Humalog sliding scale to? 80-100: 8 units; 101-200: 12 units; 201-300: 14units; >301 16 units.? Refer to podiatry Teaching: The patient was counseled to always carry a source of sugar and on the rule of 15's: Take 3 glucose tablets and repeat again in 15 minutes if blood sugar is not in normal range. Continue to repeat every 15 minutes until blood sugar is normal. The patient was counseled to achieve a target A1C of 7% (154 avg) the fasting blood sugars should be 90-130 in the morning and less than 180 two hours after meals. Risks of uncontrolled diabetes discussed with the patient. Orders: Orders AMB Hemoglobin A1c Today E11.22 - Type 2 diabetes mellitus with diabetic chronic kidney disease, N18.6 - End stage renal disease, Z13.9 - Encounter for screening, unspecified Referrals Podiatry Referral E11.22 - Type 2 diabetes mellitus with diabetic chronic kidney disease, N18.6 - End stage renal disease Medications: New insulin degludec 32 units (0.16 mL) subcut DAILY 30 days 4.8 mL 11RF E11.22 - Type 2 diabetes mellitus with diabetic chronic kidney disease, N18.6 - End stage renal disease Discontinued 2 insulin glargine U-300 conc (Toujeo Max U-300 SoloStar) Discontinued Reason: Doctor's Order 28 units (0.0933 mL) subcut DAILY 30 days 6 mL 6RF Coding Level of Care Code Est Pt Level 4 (66893) Complex EM visit Add On G2211 Diagnoses 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
[2023-12-03 14:29] VITALS: BP 126/90; PULSE 61; BMI 39.3
[2023-12-03 14:41] LABS: Glucose, Whole Blood 386 mg/dL (60-115)
== END 2023-12-03 15:18 | disposition home or self-care (01) ==
PROVIDERS: PCP Internal Medicine; Visit Provider Nurse Practitioner Adult Health
DX: Z13.9 Encounter for screening, unspecified (principal); E11.22 Type 2 diabetes mellitus with diabetic chronic kidney disease; N18.6 End stage renal disease
CPT/HCPCS: 99214

== ENCOUNTER → 2023-12-03 14:24 | Outpatient (BNVA) | payer MEDICAID, SELFPAY | PROVIDERS: PCP Internal Medicine; Visit Provider Nurse Practitioner Adult Health | DX: E11.22 Type 2 diabetes mellitus with diabetic chronic kidney disease (principal); N18.6 End stage renal disease | CPT/HCPCS: 82947; 83036; 99211; 99212 ==

== ENCOUNTER 2023-12-03 15:05 | Outpatient (AMB) | payer MEDICAID, SELFPAY ==
--- NOTE | 2023-12-03 15:16 | A.OFFVIS_ITS ---
Intake Intake Visit Reasons: DM Allergies No Known Allergies [No Known Allergies*] Allergy (Verified 12/03/23 14:33) [facility] Comprehensive Diabetes Asmnt Most Recent Diabetes Results: Cholesterol 77 mg/dL (<200) 12/01/23 HDL Cholesterol 31 mg/dL (>40) L 12/01/23 Triglycerides 81 mg/dL (<150) 12/01/23 Creatinine 5.41 mg/dL (0.5-1.4) H* 08/14/23 Blood Urea Nitrogen 36 mg/dL (9-16) H 08/14/23 Sodium 133 mmol/L (135-145) L 08/14/23 Potassium 4.1 mmol/L (3.3-5.1) 08/14/23 Chloride 90 mmol/L (96-108) L 08/14/23 Carbon Dioxide 30 mmol/L (22-29) H 08/14/23 Calcium 9.5 mg/dL (8.4-10.2) 08/14/23 AST 9 U/L (5-31) 08/14/23 ALT 9 U/L (0-31) 08/14/23 Total Protein 7.9 g/dL (6.5-8.0) 08/14/23 Albumin 3.6 g/dL (3.5-5.0) 08/14/23 [facility] 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 Uncontrolled type 2 diabetes mellitus with hyperglycemia, with long-term current use of insulin Hidradenitis suppurativa Pneumonia Type 2 diabetes mellitus with hyperglycemia Paroxysmal atrial flutter Dysphonia Chronic cough Urinary frequency Dyspnea on exertion Unstable gait Asthma Chronic low back pain without sciatica Osteoarthritis of both knees Kidney stones Depression AMARJIT (obstructive sleep apnea) Normocytic anemia ESRD needing dialysis CHF (congestive heart failure) Obesity due to excess calories CAD (coronary artery disease) GERD (gastroesophageal reflux disease) Thyroid disease AV fistula HLD (hyperlipidemia) ESRD (end stage renal disease) T2DM (type 2 diabetes mellitus) End stage renal disease on dialysis Dialysis patient Renal failure (ARF), acute on chronic HTN (hypertension) Surgical History History of kidney surgery Hx of cholecystectomy Hx of bone graft Family History Father CVD (cardiovascular disease) Diabetes Mother Diabetes Sister Stomach cancer Social History Household Members: Family Housing: House Do you presently have visiting nurse or other home services: No Unable to assess alcohol history related to: Unknown Alcohol intake: never Patient Tobacco Use Status: Never used Tobacco Advance Directives Date on File: 02/15/21 service: No Current occupational status: disabled Current occupation: right hand dominant Assessment & Plan Assessment & Plan (1) 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: Code(s): E11.22 - Type 2 diabetes mellitus with diabetic chronic kidney disease; N18.6 - End stage renal disease Plan: CGM Info Instructed Pt on what CGM can and can't do CGM Can: Give Pt minute by minute reading of glucose levels Displays glucose trend arrows that represents the direction glucose levels are fluctuating Give insight on decisions about how to dose insulin CGM cannot: Improve glucose control on its own Completely eliminate the need for all finger sticks Make dosing decision for you CGM is the reading of glucose in the interstitial fluid not actual blood glucose, finger sticks are still necessary when Pt's symptom?s do not match sensor reading and if sensors prompts Pt to do a fingerstick Patient? is interested in the Tika 3, patient's cellphone is not compatible with Tika 3 wm. message sent to STUDY MANAGER to send prescription for Tika reader Once patient picks up freeChipSensorsyle Tika reader 3 we will set up CGM Reviewed delay of CGM from fingersticks Reminded pt that if symptoms do not match sensor still needs to check fingersticks. Portions of this note were created using voice recognition software, please excuse any words or phrases that may have been misinterpreted. 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
== END 2023-12-03 15:18 | disposition home or self-care (01) ==
PROVIDERS: PCP Internal Medicine; Visit Provider Registered Nurse Diabetes Educator
DX: E11.22 Type 2 diabetes mellitus with diabetic chronic kidney disease (principal); N18.6 End stage renal disease

== ENCOUNTER 2023-12-03 15:17 | Outpatient (REF) | payer MEDICAID, SELFPAY ==
[2023-12-03 15:50] LABS: Appearance Urine Clear; Color Urine Yellow; Glucose Urine UA >=1000 mg/dL (Negative); Leukocyte Esterase Urine Trace (Negative); Nitrite Urine Negative (Negative); PH >= 9.0 (5.0-9.0); Specific Gravity - Urine 1.015 (1.005-1.025); UMIC TRIGGER UACC YES; Urine Blood Trace (Negative); Urine Ketones Negative (Negative); Urine Protein 100 (2+) mg/dL (Neg-Trace)
[2023-12-03 16:09] LABS: Bacteria Urine Trace (None Seen); Hyaline Casts Urine 0-2 /LPF (0-2); RBC Urine 0-2 /HPF (0-2); UACC Culture Trigger YES
== END 2023-12-03 15:18 | disposition home or self-care (01) ==
LOC: HO.HHCLNP 15:17
PROVIDERS: Visit Provider Internal Medicine
DX: R39.9 Unspecified symptoms and signs involving the genitourinary system (principal)
CPT/HCPCS: 81001; 87086

== ENCOUNTER 2023-12-15 17:32 | Outpatient (REF) | payer MEDICAID, SELFPAY | END 2023-12-15 17:33 | disposition home or self-care (01) | LOC: HO.HHCLNP 17:32 | PROVIDERS: Visit Provider Nurse Practitioner Family | DX: R39.9 Unspecified symptoms and signs involving the genitourinary system (principal) | CPT/HCPCS: 87086 ==

== ENCOUNTER 2023-12-24 13:35 | Outpatient (AMB) | payer MEDICAID, SELFPAY ==
--- NOTE | 2023-12-24 13:41 | A.OFFVIS_ITS ---
Vital Signs 12/24/23 13:57 Height 5 ft 3 in BMI Reason not done Patient refused/unable BP 108/62 Blood Pressure Location Rt brachial Position Sitting Pulse 60 Pulse Source Pulse Oximeter Intake Visit Reasons: DM2/LVM Intake Note: Patient presents today for a follow-up on Type 2 Diabetes Mellitus: Last Diabetic Eye exam: 12/02/23 Last Podiatry Exam: Does not see a Medical Office Rep Most recent HbA1c: 9.1%, 12/03/2023 Random Glucose- 247 mg/dL, Today Enterprise Application Administrator Required: Yes Enterprise Application Administrator Language: Filipino Accompanied by: Other Relationship Allergies tresiba Adverse Reaction (Mild, Uncoded 12/24/23 14:26) Diarrhea HPI Comments Details: Patient is a? 58-year-old female with DM type 2 diagnose who presents for continued management of her diabetes. Patient was last seen several weeks ago at which time her insulin was changed from Toujeo to degludec. She started on the Degludec a week ago and has diarrhea immediately after taking it Past medical history includes :? diabetes type 2, end-stage renal disease,dialysis MWF Micro and macrovascular complications: end-stage renal disease, retinopathy with current anti VEGF therapy Diabetes medications: ? Januvia 25 mg PO daily Degludec 16 units Humalog sliding scale to? 80-100: 8 units; 101-200: 10 units; 201-300: 12 units; >301 14 units.? 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 Uncontrolled type 2 diabetes mellitus with hyperglycemia, with long-term current use of insulin Hidradenitis suppurativa Pneumonia Type 2 diabetes mellitus with hyperglycemia Paroxysmal atrial flutter Dysphonia Chronic cough Urinary frequency Dyspnea on exertion Unstable gait Asthma Chronic low back pain without sciatica Osteoarthritis of both knees Kidney stones Depression AMARJIT (obstructive sleep apnea) Normocytic anemia ESRD needing dialysis CHF (congestive heart failure) Obesity due to excess calories CAD (coronary artery disease) GERD (gastroesophageal reflux disease) Thyroid disease AV fistula HLD (hyperlipidemia) ESRD (end stage renal disease) T2DM (type 2 diabetes mellitus) End stage renal disease on dialysis Dialysis patient Renal failure (ARF), acute on chronic HTN (hypertension) Surgical History History of kidney surgery Hx of cholecystectomy Hx of bone graft Family History Father CVD (cardiovascular disease) Diabetes Mother Diabetes Sister Stomach cancer Social History Household Members: Family Housing: House Do you presently have visiting nurse or other home services: No Unable to assess alcohol history related to: Unknown Alcohol intake: never Patient Tobacco Use Status: Never used Tobacco Advance Directives Date on File: 02/15/21 service: No Current occupational status: disabled Current occupation: right hand dominant Physical Exam Vital Signs: Last Vital Signs Pulse 60 12/24/23 13:57 BP 108/62 12/24/23 13:57 Const General: cooperative, healthy appearing and no acute distress Nutritional Appearance: overweight Orientation/consciousness: oriented to person Limitations: wheelchair Neck Neck: Yes normal visual inspection Resp Effort & Inspection: normal respiratory effort Neuro General: oriented to person Extrem Other: no edema Results Reviewed Results Reviewed: Laboratory Last Values Glucose (Clinic) 247 mg/dL (60-115) H 12/24/23 14:00 Assessment & Plan Assessment & Plan (1) 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 She unfortunately developed diarrhea to Tresiba. Will change her back to Toujeo 28 units which is what she was taking in the past and continue current Humalog sliding scale. She has been approved for a freestyle 3 sensor using a reader and she will return for training and follow-up with me in about 4-6 weeks. 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
[2023-12-24 13:57] VITALS: BP 108/62; PULSE 60
[2023-12-24 14:06] LABS: Glucose, Whole Blood 247 mg/dL (60-115)
== END 2023-12-24 14:30 | disposition home or self-care (01) ==
PROVIDERS: PCP Internal Medicine; Visit Provider Nurse Practitioner Adult Health
DX: E11.22 Type 2 diabetes mellitus with diabetic chronic kidney disease (principal); N18.6 End stage renal disease; Z99.2 Dependence on renal dialysis
CPT/HCPCS: 99214

== ENCOUNTER → 2023-12-24 13:35 | Outpatient (BNVA) | payer MEDICAID, SELFPAY | PROVIDERS: PCP Internal Medicine; Visit Provider Nurse Practitioner Adult Health | DX: E11.22 Type 2 diabetes mellitus with diabetic chronic kidney disease (principal); N18.6 End stage renal disease; Z79.4 Long term (current) use of insulin | CPT/HCPCS: 82947; 99212 ==

== ENCOUNTER 2024-01-26 13:52 | Outpatient (REF) | payer MEDICAID, SELFPAY ==
[2024-01-26 16:13] LABS: MANUAL DIFF FLAG NO
[2024-01-26 16:19] LABS: Basophils Absolute Auto 0.1 X10*3/uL (0.0-0.2); Basophils Percent Auto 0.9 % (0-2); Eosinophils Absolute Auto 0.5 X10*3/uL (0.0-0.4); Eosinophils Percent Auto 7.4 % (0-4); Hematocrit 31.8 % (37.0-47.0); Hemoglobin 10.5 g/dl (12.0-16.0); Imm Gran Abs Auto 0.03 X10*3/uL (0.00-0.03); Imm Gran Pct Auto 0.4 % (0.0-0.4); Lymphocytes Absolute Auto 1.7 X10*3/uL (1.2-4.9); Lymphocytes Percent Auto 24.2 % (20-40); Mean Corpuscular Hemoglobin 31.4 pg (27.0-33.0); Mean Corpuscular Volume 95.2 fL (80.0-98.0); Monocytes Absolute Auto 0.5 X10*3/uL (0.1-1.2); Monocytes Percent Auto 7.1 % (2-11); Neutrophils Absolute Auto 4.2 x10*3/uL (2.0-8.3); Platelet Count 187 X10*3/uL (160-400); Red Blood Count 3.34 X10*6/uL (4.20-5.50); Red Cell Distribution Width 16.5 % (11.0-16.0); White Blood Count 6.9 X10*3/uL (4.8-10.8)
[2024-01-26 16:53] LABS: Alanine Aminotransferase 11 U/L (0-31); Albumin Level 3.9 g/dL (3.5-5.0); Alkaline Phosphatase 92 U/L (39-117); Anion Gap 17 (12-20); Aspartate Amino Transferase 13 U/L (5-31); Bilirubin Total 0.6 mg/dL (0.0-1.0); Blood Urea Nitrogen 48 mg/dL (9-16); Carbon Dioxide 28 mmol/L (22-29); Chloride 99 mmol/L (96-108); Glucose Random 186 mg/dL (60-115); Potassium 4.6 mmol/L (3.3-5.1); Sodium 139 mmol/L (135-145); Total Protein 7.6 g/dL (6.5-8.0)
[2024-01-26 16:58] LABS: Estimated Glomerular Filt Rate 6
[2024-01-26 17:10] LABS: Free T4 (Free Thyroxine) 1.01 ng/dL (0.71-1.85); Thyroid Stimulating Hormone 2.25 uIU/mL (0.32-4.0)
[2024-01-27 09:53] LABS: Thyroglobulin 18.3 ng/mL; Thyroid Peroxidase Antibodies 1 IU/mL (<9)
[2024-01-28 15:09] LABS: RPR Rapid Plasma Reagin NON-REACTIVE
[2024-01-28 15:11] LABS: ~Hepatitis C Antibody NON-REACTIVE (Nonreactive)
[2024-01-28 15:12] LABS: Hepatitis B Core Antibody NON-REACTIVE (Nonreactive)
[2024-01-28 15:13] LABS: Hepatitis B Surface Antigen NON-REACTIVE (Negative)
[2024-02-01 08:20] LABS: HIV AB/AG NON-REACTIVE (Nonreactive)
[2024-02-08 12:34] LABS: Immunoglobulin E 32
== END 2024-01-26 13:53 | disposition home or self-care (01) ==
LOC: HO.HHCL 13:52
PROVIDERS: Referring Provider Internal Medicine; Visit Provider Physician Assistant
DX: Z11.3 Encounter for screening for infections with a predominantly sexual mode of transmission (principal); Z13.89 Encounter for screening for other disorder
CPT/HCPCS: 36415; 80053; 82306; 82785; 84432; 84439; 84443; 85025; 86003; 86376; 86592; 86704; 86706; 86709; 86803; 87340; 87389

== ENCOUNTER 2024-01-26 14:39 | Emergency (ER) | payer MEDICAID, SELFPAY ==
--- NOTE | ~2024-01-26 | CT_ITS ---
EXAMINATION: CT HEAD WITHOUT CONTRAST CLINICAL INFORMATION: Left-sided headache COMPARISON: CT head August 02, 2023 TECHNIQUE: Contiguous axial imaging was performed from the skull base to vertex without intravenous administration of contrast. Coronal and sagittal reformatted images are performed at the CT scanner. This CT examination was performed using dose optimization techniques as appropriate, variously including the following: *Automated exposure control *Adjustment of mA and/or kV according to patient size (this includes techniques or standardized protocols for targeted exams where dose is matched to indication/reason for exam; i.e. extremities or head) *Use of iterative reconstruction technique DLP: 805 mGy-cm. FINDINGS: There is no evidence of acute intracranial hemorrhage or territorial infarction. No abnormal mass-effect or midline shift is seen. [place] to white matter differentiation is well preserved. No extra-axial fluid collections are identified. There is generalized global volume loss. There is mild prominence of the ventricles and the sulci . There is mild hypodensity of the periventricular white matter due to chronic small vessel ischemic disease. There are vascular calcifications of the internal carotid arteries bilaterally. There is no osseous abnormality. Lobular mucosal thickening in the inferior right maxillary sinus. Mastoid air cells and middle ear cavities are normally aerated. CT/CT head/brain wo IV con IMPRESSION: No acute intracranial pathology. Electronically signed by: Alejo Ordonez MD 01/26/2024 03:33 PM EDT
--- NOTE | 2024-01-26 14:42 | ED_ITS ---
HPI - General Adult General Chief complaint: Headache Stated complaint: Headache 9 days Time Seen by Provider: 01/26/24 16:20 Source: patient Limitations: language barrier History of Present Illness ED Provider: Alexa Valentine PA-C HPI narrative: 58-year-old female past medical history significant for diabetes, coronary artery disease, atrial fibrillation, end-stage renal disease on dialysis Thursday, Thursday, Thursday presents with headache for years . Patient states she has been having ongoing headaches for years, they are intermittent. Over the past 9 days, she has had a constant headache. Pain is left-sided, retro-orbital, extends over the parietal region. Unable to describe the nature of her pain. Associated photophobia, nausea at times. Denies phonophobia, active vomiting or dizziness. No focal eye pain, eye redness or visual changes. Related Data Home Medications ?Medication ?Instructions ?Recorded ?Confirmed gabapentin 100 mg capsule 200 mg PO BID neuropathic pain 02/12/21 04/02/23 hydralazine 50 mg tablet 1 tab PO TID@0900,1200,1800 blood 02/12/21 04/02/23 pressure levothyroxine 25 mcg tablet 1 tab PO QAM 02/12/21 04/02/23 melatonin 5 mg tablet 5 mg PO BEDTIME 02/12/21 04/02/23 atorvastatin 40 mg tablet 40 mg PO DAILY cholesterol 02/26/21 04/02/23 sevelamer carbonate 800 mg tablet 800 mg PO TIDAC 02/26/21 04/02/23 aspirin 81 mg tablet,delayed 1 tab PO DAILY 10/12/21 04/02/23 release cholecalciferol (vitamin D3) 50 1 cap PO QAM 10/12/21 04/02/23 mcg (2,000 unit) capsule amoxicillin 250 mg-potassium 1 tab PO BID 12/24/23 clavulanate 125 mg tablet Previous Rx's ?Medication ?Instructions ?Recorded blood-glucose meter (FreeStyle #1 ea 04/24/21 Lite Meter kit) metoprolol tartrate 50 mg tablet 50 mg PO Q12H #60 tabs 06/28/21 amlodipine 10 mg tablet 10 mg PO QAM blood pressure 90 08/02/21 days #90 tabs apixaban 5 mg tablet (Eliquis) 5 mg PO BID 90 days #180 tabs 08/02/21 lisinopril 10 mg tablet 10 mg PO BEDTIME blood pressure 90 08/02/21 days #90 tabs lancets 33 gauge (TRUEplus Lancets) ##100 06/05/22 pen needle, diabetic 32 gauge x #150 ea 07/02/2205/28 (BD Ultra-Fine Micro Pen Needle) chlorhexidine gluconate 4 % 1 appl topical .COMPLEX 2 doses 07/08/22 topical liquid (Hibiclens) #473 mL tramadol 50 mg tablet 50 mg PO BID PRN pain #7 tabs 07/29/22 doxycycline hyclate 100 mg tablet 100 mg PO BID 30 days #60 tabs 08/26/22 tramadol 50 mg tablet 50 mg PO Q8H PRN pain, severe #5 03/06/23 tabs lidocaine 5 % topical patch 1 patch topical DAILY #30 ea 05/03/23 oxycodone 5 mg tablet 5 mg PO BID PRN pain #10 tabs 05/03/23 blood sugar diagnostic (FreeStyle #100 strips 05/18/23 Lite Strips) sitagliptin phosphate 25 mg tablet 25 mg PO QAM #30 tabs 07/24/23 (Januvia) insulin lispro 100 unit/mL 8 - 14 unit (0.08 - 0.14 mL) 08/11/23 subcutaneous pen subcut USEASDIRECTD #15 mL blood-glucose meter,continuous #1 ea 12/03/23 (FreeStyle Tika 3 [place]) blood-glucose sensor (FreeStyle #2 ea 12/03/23 Tika 3 Sensor device) blood-glucose meter,continuous #1 ea 12/24/23 (FreeStyle Tika 3 [place]) blood-glucose sensor (FreeStyle #2 ea 12/24/23 Tika 3 Sensor device) insulin glargine U-300 conc 300 28 unit (0.0933 mL) subcut BEDTIME 12/24/23 unit/mL (1.5 mL) subcutaneous pen 30 days #4.5 mL (Toujeo SoloStar U-300 Insulin) Allergies Allergy/AdvReac Type Severity Reaction Status Date / Time tresiba AdvReac Mild Diarrhea Uncoded 01/26/24 14:44 Review of Systems 2 Review of Systems: Yes all other systems are reviewed and are negative Constitutional: Constitutional: Denies fever(s) and Reports headache(s) Eyes: Eyes: Denies change in vision, Denies irritation and Denies eye pain ENT: Reports headache(s) Cardiovascular: Cardiovascular: Denies chest pain and Denies dyspnea Respiratory: Respiratory: Denies dyspnea Gastrointestinal: Gastrointestinal: Denies abdominal pain, Reports nausea and Denies vomiting Neurologic: Reports headache(s) [facility] Past Medical History Attestation statement: The following information was validated with the patient. 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 Uncontrolled type 2 diabetes mellitus with hyperglycemia, with long-term current use of insulin Hidradenitis suppurativa Pneumonia Type 2 diabetes mellitus with hyperglycemia Paroxysmal atrial flutter Dysphonia Chronic cough Urinary frequency Dyspnea on exertion Unstable gait Asthma Chronic low back pain without sciatica Osteoarthritis of both knees Kidney stones Depression AMARJIT (obstructive sleep apnea) Normocytic anemia ESRD needing dialysis CHF (congestive heart failure) Obesity due to excess calories CAD (coronary artery disease) GERD (gastroesophageal reflux disease) Thyroid disease AV fistula HLD (hyperlipidemia) ESRD (end stage renal disease) T2DM (type 2 diabetes mellitus) End stage renal disease on dialysis Dialysis patient Renal failure (ARF), acute on chronic HTN (hypertension) Surgical History History of kidney surgery Hx of cholecystectomy Hx of bone graft Family History Family History Father CVD (cardiovascular disease) Diabetes Mother Diabetes Sister Stomach cancer Social History Social History Household Members: Family Housing: House Do you presently have visiting nurse or other home services: No Unable to assess alcohol history related to: Unknown Alcohol intake: never Patient Tobacco Use Status: Never used Tobacco Advance Directives: Yes Advance Directives on File: Yes Advance Directives Date on File: 02/15/21 Do you have a plan to hurt others: No Plan service: No Current occupational status: disabled Current occupation: right hand dominant Physical Exam ED Vital Signs: Vital Signs - 24 hr 01/26/24 14:43 01/26/24 16:14 01/26/24 18:09 Temperature 98 F 98.1 F 97.6 F Pulse Rate 63 61 60 Respiratory Rate 19 20 20 Blood Pressure 141/53 H 150/62 H 151/52 H Pulse Oximetry 99 97 98 Oxygen Delivery Method Room Air Room Air Room Air 01/26/24 21:24 01/26/24 22:31 Temperature 98.4 F 98.4 F Pulse Rate 63 63 Respiratory Rate 20 20 Blood Pressure 159/55 H 159/55 H Pulse Oximetry 98 98 Oxygen Delivery Method Room Air Room Air BMI result Body Mass Index 37.0 Const Other: Alert, appears older than stated age, she is sitting up in bed talking on her phone Orientation/consciousness: patient oriented x3 HENMT Other: No Eyes Other: The sclera is not injected Pupils: Equal, round and reactive pupils present EOM: EOMs intact bilaterally Resp Other: Nonlabored respiration Cardio Other: Normal peripheral perfusion Skin Other: Warm dry no rash Neuro Other: Ambulates with normal steady gait General: patient oriented x3, no focal motor deficits and CN's II-XI intact bilaterally Cranial nerves: Yes Equal, round and reactive pupils present Extrem Other: Strength 5/5 bilateral upper and lower extremities Psych Other: Cooperative Course Course Course Narrative: RME, this is a rapid medical exam performed by Kody Roberto please refer to primary provider for complete H&P- 58-year-old female past medical history significant for diabetes, coronary artery disease, atrial fibrillation, end- stage renal disease on dialysis Thursday, Thursday, Thursday presents for evaluation of a left-sided headache for the last 9 days. She is neurologically intact, denies trauma plan for labs including ESR, CT brain Reevaluation(s) Reevaluation #1: Patient states there has been little change with a migraine cocktail she received, we will try Fioricet Reevaluation #2: 1 back into the room after the patient had Fioricet, she is sitting up eating, she states there is no change in her pain Medications Administered Discontinued Medications Generic Name Dose Route Start Last Admin Trade Name Lea PRN Reason Stop Dose Admin Acetaminophen 975 mg 01/26/24 16:55 01/26/24 17:35 Acetaminophen 325 Mg Tablet PO 01/26/24 16:56 975 mg ONCE ONE Administration Acetaminophen/Butalbital/Caffeine 1 tab 01/26/24 19:25 01/26/24 19:52 Butalb/Acetamin/Caff 50/325/40 Tablet PO 01/26/24 19:26 1 tab ONCE ONE Administration Diphenhydramine HCl 25 mg 01/26/24 16:55 01/26/24 17:35 Diphenhydramine Hcl 25 Mg Capsule PO 01/26/24 16:56 25 mg ONCE ONE Administration Prochlorperazine Maleate 10 mg 01/26/24 16:55 01/26/24 17:35 Prochlorperazine Maleate 5 Mg Tablet PO 01/26/24 16:56 10 mg ONCE ONE Administration Medical Decision Making Medical Decision Making [facility] Narrative: 58-year-old female past medical history significant for diabetes, coronary artery disease, atrial fibrillation, end-stage renal disease on dialysis Thursday, Thursday, Thursday presents with headache for years . Patient states she has been having ongoing headaches for years, they are intermittent. Over the past 9 days, she has had a constant headache. Pain is left-sided, retro-orbital, extends over the parietal region. Unable to describe the nature of her pain. Associated photophobia, nausea at times. Denies phonophobia, active vomiting or dizziness. No focal eye pain, eye redness or visual changes. Problem: Diabetes, age, end-stage renal disease History: Per patient I have considered the following differential diagnoses: Intracranial hemorrhage, acute angle closure glaucoma, temporal arteritis, migraine Plan: The patient is assessment began out in [facility].. Screening labs including a CT of the brain were obtained. Patient is here with a headache that she is literally had for years. She has some features that are consistent with a migraine. We will give a migraine cocktail. Thought about intracranial hemorrhage, however again her symptoms are chronic, she has not had recent trauma, she is neurologically intact. Thought about temporal arteritis, however there are no visual changes, the eye itself is not painful, again she has had symptoms for years, she also does not have associated symptoms of PMR. Thought about glaucoma, however the eye is not red, the pain is not focal to the eye, again no visual changes. I have independently reviewed the following tests: Labs: No leukocytosis, stable anemia, no electrolyte abnormality, urine not infected CT brain:CT head August 02, 2023 TECHNIQUE: Contiguous axial imaging was performed from the skull base to vertex without intravenous administration of contrast. Coronal and sagittal reformatted images are performed at the CT scanner. This CT examination was performed using dose optimization techniques as appropriate, variously including the following: *Automated exposure control *Adjustment of mA and/or kV according to patient size (this includes techniques or standardized protocols for targeted exams where dose is matched to indication/reason for exam; i.e. extremities or head) *Use of iterative reconstruction technique DLP: 805 mGy-cm. FINDINGS: There is no evidence of acute intracranial hemorrhage or territorial infarction. No abnormal mass-effect or midline shift is seen. [place] to white matter differentiation is well preserved. No extra-axial fluid collections are identified. There is generalized global volume loss. There is mild prominence of the ventricles and the sulci . There is mild hypodensity of the periventricular white matter due to chronic small vessel ischemic disease. There are vascular calcifications of the internal carotid arteries bilaterally. There is no osseous abnormality. Lobular mucosal thickening in the inferior right maxillary sinus. Mastoid air cells and middle ear cavities are normally aerated. CT/CT head/brain wo IV con IMPRESSION: No acute intracranial pathology. Lab Data 01/26/24 14:53 01/26/24 14:53 Labs: Lab Results 01/26/24 01/26/24 Range/Units 14:53 18:09 WBC 7.7 (4.8-10.8) X10*3/uL RBC 3.47 L (4.20-5.50) X10*6/uL Hgb 10.9 L (12.0-16.0) g/dl Hct 32.9 L (37.0-47.0) % MCV 94.8 (80.0-98.0) fL MCH 31.4 (27.0-33.0) pg MCHC 33.1 (31.0-35.0) g/dl RDW 16.5 H (11.0-16.0) % Plt Count 202 (160-400) X10*3/uL MPV 12.2 (9.4-12.3) fL Immature Gran % (Auto) 0.5 H (0.0-0.4) % Neut % (Auto) 58.4 (45-73) % Lymph % (Auto) 25.3 (20-40) % [place] % (Auto) 7.0 (2-11) % Eos % (Auto) 7.8 H (0-4) % Baso % (Auto) 1.0 (0-2) % Lymph # (Auto) 2.0 (1.2-4.9) X10*3/uL [place] # (Auto) 0.5 (0.1-1.2) X10*3/uL Eos # (Auto) 0.6 H (0.0-0.4) X10*3/uL Baso # (Auto) 0.1 (0.0-0.2) X10*3/uL Abs Immat Gran (auto) 0.04 H (0.00-0.03) X10*3/uL Absolute Neuts (auto) 4.5 (2.0-8.3) x10*3/uL Absolute Nucleated RBC 0.000 (0.0-0.012) X10*3/uL Nucleated RBC % (auto) 0.0 (0.0-0.2) /100WBC ESR 44 H (0-20) MM/HR PT 16.6 H (11.1-13.3) SEC INR 1.4 H (0.9-1.1) Sodium 139 (135-145) mmol/L Potassium 5.0 (3.3-5.1) mmol/L Chloride 99 (96-108) mmol/L Carbon Dioxide 27 (22-29) mmol/L Anion Gap 18 (12-20) BUN 49 H (9-16) mg/dL Creatinine 7.25 H* (0.5-1.4) mg/dL Estim Creat Clear Calc 9.4 Estimated GFR 6 Random Glucose 177 H (60-115) mg/dL Calcium 10.3 H (8.4-10.2) mg/dL Total Bilirubin 0.7 (0.0-1.0) mg/dL AST 16 (5-31) U/L ALT 13 (0-31) U/L Alkaline Phosphatase 97 (39-117) U/L Total Protein 8.2 H (6.5-8.0) g/dL Albumin 4.1 (3.5-5.0) g/dL Lipase 9 (8-78) U/L Urine Color Yellow Urine Appearance Cloudy Urine pH 8.5 (5.0-9.0) Ur Specific Telephone 1.015 (1.005-1.025) Urine Protein 100 (2+) H (Neg-Trace) mg/dL Urine Glucose (UA) 250 H (Negative) mg/dL Urine Ketones Negative (Negative) mg/dL Urine Blood Negative (Negative) Urine Nitrite Negative (Negative) Ur Leukocyte Esterase Small (1+) H (Negative) Urine RBC 0-2 (0-2) /HPF Urine WBC 11-20 H (0-5) /HPF Ur Squamous Epith Cells 6-10 (0-2) /HPF Urine Bacteria 3+ (None Seen) Hyaline Casts 3-5 (0-2) /LPF Urine Yeast Present Influenza Type A (PCR) NEGATIVE (Negative) Influenza Type B (PCR) NEGATIVE (Negative) RSV RNA Qual (PCR) NEGATIVE (Negative) SARS-CoV-2 RNA (RT-PCR) NEGATIVE (Negative) Discharge Plan Discharge Clinical Impression: Headache Patient Disposition: Home, Self-Care Instructions: Chronic Post Traumatic Headache (ED) Additional Instructions: All of her screening labs were normal, the CT scan of your brain was normal as well. You need to follow up with your primary care provider, the next step would be to have a neurology consult for your chronic ongoing headache. Call tomorrow to make an appointment. Prescriptions: No Action (DME) blood-glucose meter [FreeStyle Lite Meter] Kit See Rx Instructions .ROUTE .MEDSUPPLY Qty: 1 0RF Rx Instructions: As directed amlodipine 10 mg tablet 10 mg PO QAM 90 Days Qty: 90 3RF Eliquis 5 mg tablet 5 mg PO BID 90 Days Qty: 180 3RF lisinopril 10 mg tablet 10 mg PO BEDTIME 90 Days Qty: 90 3RF (DME) lancets [TRUEplus Lancets] 33 gauge misc See Rx Instructions .ROUTE .COMPLEX Qty: 100 11RF Dose Instruction: TEST BLOOD SUGAR FOUR TIMES DAILY Rx Instructions: TEST BLOOD SUGAR FOUR TIMES DAILY (DME) pen needle, diabetic [BD Ultra-Fine Micro Pen Needle] 32 gauge x 1/4 needle See Rx Instructions .ROUTE .MEDSUPPLY Qty: 150 11RF Rx Instructions: As directed 4 times a day (DME) FreeStyle Lite Strips Strip See Rx Instructions .ROUTE .COMPLEX Qty: 100 11RF Dose Instruction: TEST BLOOD SUGAR FOUR TIMES DAILY Rx Instructions: TEST BLOOD SUGAR FOUR TIMES DAILY Januvia 25 mg tablet 25 mg PO QAM Qty: 30 6RF insulin lispro 100 unit/mL insulin pen 8 - 14 unit subcut USEASDIRECTD Qty: 15 5RF levothyroxine 25 mcg tablet 1 tab PO QAM hydralazine 50 mg tablet 1 tab PO TID@0900,1200,1800 gabapentin 100 mg capsule 200 mg PO BID melatonin 5 mg tablet 5 mg PO BEDTIME atorvastatin 40 mg tablet 40 mg PO DAILY sevelamer carbonate 800 mg tablet 800 mg PO TIDAC aspirin 81 mg tablet,delayed release (DR/EC) 1 tab PO DAILY cholecalciferol (vitamin D3) 50 mcg (2,000 unit) capsule 1 cap PO QAM metoprolol tartrate 50 mg tablet 50 mg PO Q12H Qty: 60 0RF tramadol 50 mg tablet 50 mg PO BID PRN (Reason: pain) Qty: 7 0RF tramadol 50 mg tablet 50 mg PO Q8H PRN (Reason: pain, severe) Qty: 5 0RF oxycodone 5 mg tablet 5 mg PO BID PRN (Reason: pain) Qty: 10 0RF Rx Instructions: Partial Fill upon patient request. lidocaine 5 % adhesive patch,medicated 1 patch topical DAILY Qty: 30 0RF Rx Instructions: leave on most painful area for up to 12 hrs chlorhexidine gluconate [Hibiclens] 4 % liquid 1 appl topical .COMPLEX Qty: 473 3RF Rx Instructions: 1 appl topically lather in shower every 3-4 days, leave on skin for 1 monute before rinsing; doxycycline hyclate 100 mg tablet 100 mg PO BID 30 Days Qty: 60 3RF (DME) FreeStyle Tika 3 [place] Misc See Rx Instructions .Route Qty: 1 0RF Rx Instructions: As directed (DME) FreeStyle Tika 3 Sensor Device See Rx Instructions .Route Qty: 2 11RF Rx Instructions: As directed amoxicillin-pot clavulanate 250-125 mg tablet 1 tab PO BID (DME) FreeStyle Tika 3 [place] Misc See Rx Instructions .ROUTE .MEDSUPPLY Qty: 1 0RF Rx Instructions: As directed (DME) FreeStyle Tika 3 Sensor Device See Rx Instructions .ROUTE .MEDSUPPLY Qty: 2 11RF Rx Instructions: As directed insulin glargine U-300 conc [Toujeo SoloStar U-300 Insulin] 300 unit/mL (1.5 mL) insulin pen 28 unit subcut BEDTIME 30 Days Qty: 4.5 3RF Interventions: ED Discharge Assessment Last Done: 01/26/24 22:31 Discharge Date/Time: 01/26/24 22:32 Print Language: Yoruba
[2024-01-26 14:43] VITALS: BP 141/53; PULSE 63; RESP 19; TEMP 36.6; O2SAT 99; BMI 37.0
[2024-01-26 14:57] LABS: MANUAL DIFF FLAG NO
[2024-01-26 14:59] LABS: Basophils Absolute Auto 0.1 X10*3/uL (0.0-0.2); Eosinophils Absolute Auto 0.6 X10*3/uL (0.0-0.4); Eosinophils Percent Auto 7.8 % (0-4); Hematocrit 32.9 % (37.0-47.0); Hemoglobin 10.9 g/dl (12.0-16.0); Imm Gran Abs Auto 0.04 X10*3/uL (0.00-0.03); Imm Gran Pct Auto 0.5 % (0.0-0.4); Lymphocytes Percent Auto 25.3 % (20-40); Mean Corpuscular HGB Conc 33.1 g/dl (31.0-35.0); Mean Corpuscular Hemoglobin 31.4 pg (27.0-33.0); Mean Corpuscular Volume 94.8 fL (80.0-98.0); Mean Platelet Volume 12.2 fL (9.4-12.3); Monocytes Absolute Auto 0.5 X10*3/uL (0.1-1.2); Neutrophils Absolute Auto 4.5 x10*3/uL (2.0-8.3); Neutrophils Percent Auto 58.4 % (45-73); Platelet Count 202 X10*3/uL (160-400); Red Blood Count 3.47 X10*6/uL (4.20-5.50); Red Cell Distribution Width 16.5 % (11.0-16.0); White Blood Count 7.7 X10*3/uL (4.8-10.8)
[2024-01-26 15:04] LABS: INTERNATIONAL NORM RATIO 1.4 (0.9-1.1); Prothrombin Time 16.6 SEC (11.1-13.3)
[2024-01-26 15:16] LABS: Alanine Aminotransferase 13 U/L (0-31); Albumin Level 4.1 g/dL (3.5-5.0); Alkaline Phosphatase 97 U/L (39-117); Anion Gap 18 (12-20); Aspartate Amino Transferase 16 U/L (5-31); Bilirubin Total 0.7 mg/dL (0.0-1.0); Blood Urea Nitrogen 49 mg/dL (9-16); Calcium 10.3 mg/dL (8.4-10.2); Carbon Dioxide 27 mmol/L (22-29); Chloride 99 mmol/L (96-108); Creatinine Clr Calc Pharmacy 9.4; Estimated Glomerular Filt Rate 6; Glucose Random 177 mg/dL (60-115); Lipase 9 U/L (8-78); Sodium 139 mmol/L (135-145); Total Protein 8.2 g/dL (6.5-8.0)
[2024-01-26 15:37] LABS: Influenza A PCR NEGATIVE (Negative); Influenza B PCR NEGATIVE (Negative); Resp Syncy Virus RNA Qual PCR NEGATIVE (Negative); SARS COV2 PCR INHOUSE NEGATIVE (Negative)
[2024-01-26 15:38] LABS: Erythrocyte Sedimentation Rate 44 MM/HR (0-20)
--- OUTSIDE RECORDS SUMMARY | 2024-01-26 16:02 | XMS_ITS | Continuity of Care Document ---
Author Organization [facility] Address [address] [place] [address]- Care Team Providers Care Metal Technician Name Role Phone Cheyenne No MD, Marcella Schroeder Primary Care Physici [phone] Date(s): 09/01/23 - 10/01/23 [facility] [address] [place] [address]- [place] Allergies, Adverse Reactions, Alerts No Known Allergies Medications Amlodipine = 10 mg, By Mouth, Daily, 0 Refills, Maintenance, 03/01/19 6:43:08 EDT Start Date: 03/01/19 Status: Ordered apixaban 5 mg oral tablet 1 tablet = 5 mg, By Mouth, 2 times a day, # 60 tablet, 0 Refills, Maintenance, 09/03/21 7:06:00 EDT, Tablet, Partial fill upon patient request if the prescription is for a schedule II opioid drug. Start Date: 09/03/21 Status: Ordered aspirin 81 mg oral delayed release tablet 81 mg, 1, tablet, By Mouth, Daily, # 30 tablet, Refills 0, Maintenance, 03/01/19 6:43:55 EDT Start Date: 03/01/19 Status: Ordered atorvastatin 40 mg oral tablet 1 tablet = 40 mg, By Mouth, Daily, # 30 tablet, 0 Refills, Maintenance, 03/01/19 6:44:09 EDT, Tablet Start Date: 03/01/19 Status: Ordered FLUoxetine 10 mg oral capsule 10 mg, 1, capsule, By Mouth, Daily, # 60 capsule, Refills 0, Maintenance, 03/01/19 6:45:41 EDT Start Date: 03/01/19 Status: Ordered gabapentin 100 mg oral capsule 200 mg, 2, capsule, By Mouth, 2 times a day, # 240 capsule, Refills 0, Maintenance, 03/01/19 6:46:23 EDT Start Date: 03/01/19 Status: Ordered Humalog 100 u/ml subcutaneous injection Subcutaneous Infusion, 0 Refills, Maintenance, 02/04/19 15:44:51 EDT Start Date: 02/04/19 Status: Ordered hydrALAZINE 50 mg oral tablet 1 tablet = 50 mg, By Mouth, 3 times a day, # 90 tablet, 0 Refills, Maintenance, 03/01/19 6:47:00 EDT, Tablet Start Date: 03/01/19 Status: Ordered Januvia 25 mg oral tablet 1 tablet = 25 mg, By Mouth, Daily, # 30 tablet, 0 Refills, Maintenance, 03/01/19 6:47:16 EDT, Tablet Start Date: 03/01/19 Status: Ordered Lantus 100 u/ml subcutaneous solution See Instructions, Subcutaneous Injection, Use as directed for Diabetes mellitus type 1. (Max Dose =15 units/day), 10 mL vials, # 2 vials, 5 Refills, Maintenance, 03/01/19 6:47:38 EDT Start Date: 03/01/19 Stop Date: 03/31/19 Status: Ordered levothyroxine 0.025 mg oral tablet 1 tablet = 25 mcg, By Mouth, Daily, 0 Refills, Maintenance, 02/04/19 15:44:43 EDT Start Date: 02/04/19 Status: Ordered lisinopril 10 mg oral tablet 10 mg, 1, tablet, By Mouth, Daily at bedtime, # 90 tablet, Refills 0, Maintenance, 09/03/21 7:06:00EDT, Partial fill upon patient request if the prescription is for a schedule II opioid drug. Start Date: 09/03/21 Status: Ordered Metoprolol Tartrate 50 mg oral tablet 1 tablet = 50 mg, By Mouth, 2 times a day, # 180 tablet, 0 Refills, Maintenance, 09/03/21 7:03:00 EDT, Tablet, Partial fill upon patient request if the prescription is for a schedule II opioid drug. Start Date: 09/03/21 Status: Ordered sevelamer carbonate 800 mg oral tablet 1 tablet = 800 mg, By Mouth, 3 times a day, # 90 tablet, 0 Refills, Maintenance, 11/14/19 10:56:00 EDT, Tablet Start Date: 11/14/19 Status: Ordered Toujeo SoloStar 300 units/mL subcutaneous solution Subcutaneous Infusion, 2 times a day with meals, 0 Refills, Maintenance, 09/03/21 6:57:00 EDT, Partial fill upon patient request if the prescription is for a schedule II opioid drug. Start Date: 09/03/21 Status: Ordered Vitamin D 37405 iu oral capsule 50,000 International_Units, 1, capsule, By Mouth, Every week, # 4 capsule, Refills 0, Maintenance, 05/10/19 15:25:22 EST Start Date: 05/10/19 Status: Ordered Problem List Condition Confirmation Course Effective Dates Status H ealth Status Informant Anemia of chronic kidney failure Confirmed Active Angina pectoris Confirmed Active AF (atrial fibrillation) Confirmed Active Severe Atrial enlargement, bilateral Confirmed 06/04/17 Active Single chamber [employer] [place] Pacemaker Confirmed 04/11/16 Active Chronic diastolic CHF (congestive heart failure) Confirmed Active Coronary artery disease Confirmed Active Diabetes Type I, insulin Confirmed Active Dialysis patient Confirmed Active End stage renal disease, dialysis M-W- 1 Confirmed Active Alcohol use, 2 glasses of wine daily Confirmed Active GERD (gastroesophageal reflux disease) Confirmed Active HLD (hyperlipidemia) Confirmed Active Mild Hyponatremia Confirmed Active Hypothyroidism Confirmed Active Kidney stones Confirmed Active Moderate Mitral regurgitation Confirmed 06/04/17 Active Osteoarthritis of bilateral knees Confirmed Active Palpitations Confirmed Active PVD (peripheral vascular disease) w/claudication Confirmed Active Unstable angina Confirmed Active Pulmonary HTN Confirmed Active Severe obesity (BMI 35.0-39.9) with comorbidity Confirmed Active [facility] Social History Social History Type Response Smoking Status Never (less than 100 in lifetime) entered on: 02/04/19 Sex Patient Care team information Care Team Personnel Name: Marcella Mason MD Position: [facility] Outreach Member Role: PCP Address: Address: [address] [place] [address]- Name: Nicky Santamaria Position: [facility] Outreach Member Role: Lifetime Consulting Physician Name: Surya Jain MD Position: [facility] Renal MD Member Role: Lifetime Consulting Physician Address: Address: [address] [place] [address] [address] [facility] [place], [place] [address]- Name: Windy Elizalde RN Position: S Outreach Member Role: Lifetime Consulting Physician Name: Jeffy Tineo MD Position: [facility] Renal MD Member Role: Lifetime Consulting Physician Address: Address: [address] [place] [address] [facility] [place] [place] [address]- Care Team Related Persons Name: MARCELLA WALKER Name: JUSTYNA SIMON Address: home [address] [place] [id number]
--- OUTSIDE RECORDS SUMMARY | 2024-01-26 16:02 | XMS_ITS | Continuity of Care Document ---
Author Organization [facility] Address [address], [address] [address]- Care Team Providers Care Styrene Dehydration Reactor Operator Name Role Phone Cheyenne No MD, Marcella Schrodeer Primary Care Physici an Encounter [facility] [place] Date(s): 12/08/23 - 01/07/24 [facility] [address] [place], [place] [address] Allergies, Adverse Reactions, Alerts No Known Allergies [...] Start Date: 09/03/21 Status: Ordered Vitamin D 95591 iu oral capsule 50,000 International_Units, 1, capsule, By Mouth, Every week, # 4 capsule, Refills 0, Maintenance, 05/10/19 15:25:22 EST Start Date: 05/10/19 Status: Ordered Problem List Condition Confirmation Course Effective Dates Status H ealth Status Informant Anemia of chronic kidney failure Confirmed Active Angina pectoris Confirmed Active AF (atrial fibrillation) Confirmed Active Severe Atrial enlargement, bilateral Confirmed 06/04/17 Active Single chamber [place] scientific Pacemaker Confirmed 04/11/16 Active Chronic diastolic [...] with comorbidity Confirmed Active [facility] Social History Social History Type Response Smoking Status Never (less than 100 in lifetime) entered on: 02/04/19 Sex Patient Care team information Care Team Personnel Name: Cheyenne No MD, Marcella Schroeder Position: [facility] Outreach Member Role: PCP Address: Address: [address] [place] [address]- Name: Nicky Santamaria Position: [facility] Outreach Member Role: Lifetime Consulting Physician Name: Surya Jain MD Position: [facility] Renal MD Member Role: Lifetime Consulting Physician Address: Address: [address] [place] [address] [address] [facility] [place] [address]- Name: Windy Elizalde RN Position: [facility] Outreach Member Role: Lifetime Consulting Physician Name: Jeffy Tineo MD Position: [facility] Renal MD Member Role: Lifetime Consulting Physician Address: Address: [address] [place] [address] [facility] [place] [address]- Care Team Related Persons Name: MARCELLA WALKER Name: JUSTYNA SIMON Address: home [address] [place] [id number]
--- OUTSIDE RECORDS SUMMARY | 2024-01-26 16:02 | XMS_ITS | Continuity of Care Document ---
Author Organization [facility] Address [address] [facility] [address] [place] [address]- Care Team Providers Care Consolidation Accountant Name Role Phone Cheyenne No MD, Marcella Schroeder Primary Care Physici an Encounter [facility] [place] Date(s): 10/13/23 - 11/12/23 [facility] [address] [facility] [address] [place] [address]- [place] Allergies, Adverse Reactions, Alerts No Known [...] Start Date: 09/03/21 Status: Ordered Vitamin D 60899 iu oral capsule 50,000 International_Units, 1, capsule, By Mouth, Every week, # 4 capsule, Refills 0, Maintenance, 05/10/19 15:25:22 EST Start Date: 05/10/19 Status: Ordered Problem List Condition Confirmation Course Effective Dates Status H ealth Status Informant Anemia of chronic kidney failure Confirmed Active Angina pectoris Confirmed Active AF (atrial fibrillation) Confirmed Active Severe Atrial enlargement, bilateral Confirmed 06/04/17 Active Single chamber [place] scientific Pacemaker Confirmed 04/11/16 Active Chronic diastolic CHF (congestive heart failure) Confirmed Active Coronary artery disease Confirmed Active Diabetes Type I, insulin Confirmed Active Dialysis patient Confirmed Active End stage renal disease, dialysis M-W-F 1 Confirmed Active Alcohol use, 2 glasses [...] with comorbidity Confirmed Active [facility] Social History Social History Type Response Smoking Status Never (less than 100 in lifetime) entered on: 02/04/19 Sex Patient Care team information Care Team Personnel Name: Marcella Mason MD Position: [facility] Outreach Member Role: PCP Address: Address: [address] [place] [address]- Name: Nicky Santamaria Position: [facility] Outreach Member Role: Lifetime Consulting Physician Name: Surya Jain MD Position: [facility] Renal MD Member Role: Lifetime Consulting Physician Address: Address: [address] [place] [address] [address] [facility], [place] [address]- Name: Windy Elizalde RN Position: S Outreach Member Role: Lifetime Consulting Physician Name: Jeffy Tineo MD Position: [facility] Renal MD Member Role: Lifetime Consulting Physician Address: Address: [address] [facility] [place] [address]- Care Team Related Persons Name: MARCELLA WALKER Name: JUSTYNA SIMON Address: home [address] [place] [address]
--- OUTSIDE RECORDS SUMMARY | 2024-01-26 16:02 | XMS_ITS | Continuity of Care Document ---
Author Organization [facility] Address [address] [place] [address]- Care Team Providers Care Software Engineering Specialist Name Role Phone Cheyenne No MD, Marcella Schroeder Primary Care Physici an [facility] Date(s): 12/01/23 - 12/31/23 [facility] [address] [place] [address] Allergies, Adverse Reactions, Alerts No Known Allergies [...] Start Date: 09/03/21 Status: Ordered Vitamin D 86662 iu oral capsule 50,000 International_Units, 1, capsule, By Mouth, Every week, # 4 capsule, Refills 0, Maintenance, 05/10/19 15:25:22 EST Start Date: 05/10/19 Status: Ordered Problem List Condition Confirmation Course Effective Dates Status H ealth Status Informant Anemia of chronic kidney failure Confirmed Active Angina pectoris Confirmed Active AF (atrial fibrillation) Confirmed Active Severe Atrial enlargement, bilateral Confirmed 06/04/17 Active Single chamber [place] scientific Pacemaker Confirmed 04/11/16 Active Chronic diastolic [...] with comorbidity Confirmed Active [facility] Social History Social History Type Response Smoking Status Never (less than 100 in lifetime) entered on: 02/04/19 Sex Patient Care team information Care Team Personnel Name: Marcella Mason MD Position: [facility] Outreach Member Role: PCP Address: Address: [address] [facility] [address] [facility] [address] [place] [address]- Name: Nicky Santamaria Position: [facility] Outreach Member Role: Lifetime Consulting Physician Name: Surya Jain MD Position: [facility] Renal MD Member Role: Lifetime Consulting Physician Address: Address: [address] [place] [address] [address] [facility], [place] [address]- Name: Windy Elizalde RN Position: [facility] Outreach Member Role: Lifetime Consulting Physician Name: Jeffy Tineo MD Position: [facility] Renal MD Member Role: Lifetime Consulting Physician Address: Address: [address] [place] [address] [facility] [place] [address]- Care Team Related Persons Name: MARCELLA WALKER Name: JUSTYNA SIMON Address: home [address] [place] [id number]
[2024-01-26 16:14] VITALS: BP 150/62; PULSE 61; RESP 20; TEMP 36.7; O2SAT 97
[2024-01-26] MEDS: Prochlorperazine Maleate 5 MG TABLET 10 MG PO (17:35)
[2024-01-26] MEDS: Acetaminophen 325 MG TABLET 975 MG PO (17:35)
[2024-01-26] MEDS: diphenhydrAMINE HCL 25 MG CAPSULE PO (17:35)
[2024-01-26 18:09] VITALS: BP 151/52; PULSE 60; RESP 20; TEMP 36.4; O2SAT 98
[2024-01-26 18:18] LABS: Appearance Urine Cloudy; Color Urine Yellow; Glucose Urine UA 250 mg/dL (Negative); Leukocyte Esterase Urine Small (1+) (Negative); Nitrite Urine Negative (Negative); PH 8.5 (5.0-9.0); Specific Gravity - Urine 1.015 (1.005-1.025); UMIC TRIGGER UACC YES; Urine Blood Negative (Negative); Urine Ketones Negative (Negative); Urine Protein 100 (2+) mg/dL (Neg-Trace)
[2024-01-26 18:33] LABS: Bacteria Urine 3+ (None Seen); RBC Urine 0-2 /HPF (0-2); UACC Culture Trigger YES
--- NOTE | 2024-01-26 18:50 | PC.NURSE ---
patient stated she had lump on head, patient head assessed. patient has no bump noted.
[2024-01-26] MEDS: Butalb/Acetamin/Caff 50/325/40 TABLET 1 TAB PO (19:52)
--- NOTE | 2024-01-26 20:38 | PC.NURSE ---
Report taken from Elizabet ALMONTE, assumed care of pt at 1900. Pt A&Ox3 skin pwd respirations even unlabored. Endorsing continued headache despite previously administered meds. Fiorcet PO admin per JUL, awaiting improvement in symptoms and MD reeval. Aware of plan of care. Additional warm blankets, socks, and gingerale provided to pt. Will continue to monitor for effectiveness of medication.
[2024-01-26 21:24] VITALS: BP 159/55; PULSE 63; RESP 20; TEMP 36.9; O2SAT 98
[2024-01-26 22:31] VITALS: BP 159/55; PULSE 63; RESP 20; TEMP 36.9; O2SAT 98
== END 2024-01-26 22:32 | disposition home or self-care (01) ==
PROVIDERS: Physician Assistant; Emergency Provider Emergency Medicine; PCP Internal Medicine
DX: R51.9 Headache, unspecified (principal); I25.10 Atherosclerotic heart disease of native coronary artery without angina pectoris; Z79.899 Other long term (current) drug therapy; Z03.818 Encounter for observation for suspected exposure to other biological agents ruled out
CPT/HCPCS: 0241U; 36415; 70450; 80053; 81001; 83690; 85025; 85610; 85652; 87086; 99284

== ENCOUNTER 2024-01-28 12:35 | Outpatient (AMB) | payer MEDICAID, SELFPAY ==
--- NOTE | 2024-01-28 12:37 | A.OFFVIS_ITS ---
Vital Signs 01/28/24 12:43 Height 5 ft 3 in Weight 211 lb 10.3 oz BMI 37.5 BP 150/50 H Blood Pressure Location Rt brachial Position Sitting Pulse 74 Pulse Source Pulse Oximeter Intake Visit Reasons: DM2/CONFIRMED Intake Note: Patient presents today for a follow-up on Type 2 Diabetes Mellitus: Last Diabetic Eye exam: 12/02/23 Last Podiatry Exam: Does not see a Industrial Controls Technician Most recent HbA1c: 9.1%, 12/03/2023 Random Glucose- 288 mg/dL, Today Director Digital Required: Yes Director Digital Language: Ip/Mosaic Technician Services: Director Digital Present Director Digital Name: JOY Camargo/CARLEEN Corral Accompanied by: Cousin Allergies tresiba Adverse Reaction (Mild, Uncoded 01/28/24 12:51) Diarrhea HPI Comments Details: 0 Patient is a? 58-year-old female with DM type 2 diagnose who presents for continued management of her diabetes. Patient was last seen 12/24/23. I attempted to change her insulin from Toujeo to degludec which triggered diarrhea. Past medical history includes :? diabetes type 2, end-stage renal disease,dialysis MWF Micro and macrovascular complications: end-stage renal disease, retinopathy with current anti VEGF therapy Diabetes medications: ? Toujeo 28 Januvia 25 mg PO daily Humalog sliding scale to? 80-100: 8 units; 101-200: 10 units; 201-300: 12 units; >301 14 units.? Hyperglycemia: + polyuria Last LDL 12/15 Hypoglycemia rare Exercise: limited Ship Scraper - CDE education: sees pea viner mechanic at dialysis Industrial Controls Technician: self care Denies numbness, tingling, cramping Ophthalmology evaluation: last eye appointment 12/02/23 Has had retinal injections. 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 Uncontrolled type 2 diabetes mellitus with hyperglycemia, with long-term current use of insulin Hidradenitis suppurativa Pneumonia Type 2 diabetes mellitus with hyperglycemia Paroxysmal atrial flutter Dysphonia Chronic cough Urinary frequency Dyspnea on exertion Unstable gait Asthma Chronic low back pain without sciatica Osteoarthritis of both knees Kidney stones Depression AMARJIT (obstructive sleep apnea) Normocytic anemia ESRD needing dialysis CHF (congestive heart failure) Obesity due to excess calories CAD (coronary artery disease) GERD (gastroesophageal reflux disease) Thyroid disease AV fistula HLD (hyperlipidemia) ESRD (end stage renal disease) T2DM (type 2 diabetes mellitus) End stage renal disease on dialysis Dialysis patient Renal failure (ARF), acute on chronic HTN (hypertension) Surgical History History of kidney surgery Hx of cholecystectomy Hx of bone graft Family History Father CVD (cardiovascular disease) Diabetes Mother Diabetes Sister Stomach cancer Social History Household Members: Family Housing: House Do you presently have visiting nurse or other home services: No Unable to assess alcohol history related to: Unknown Alcohol intake: never Patient Tobacco Use Status: Never used Tobacco Advance Directives Date on File: 02/15/21 service: No Current occupational status: disabled Current occupation: right hand dominant Physical Exam Vital Signs: Last Vital Signs Pulse 74 01/28/24 12:43 BP 150/50 H 01/28/24 12:43 BMI result Body Mass Index 37.5 Const Other: Absence of Cushingoid features. Absence of acromegalic features. Neck exam reveals nl size thyroid about 15 gms. No thyroid nodules palpable. Heart S1 S2, Reg R/R. No M/R G. Skin exam reveals absence of vitiligo or acanthosis nigricans. Extrem Other: Visual exam of foot performed. No ulcerations or open lesions. No onchomycosis, no callouses. No interdigit fissuring or maceration. Sensation intact to monofilament exam. Vibratory sensation is normal with 128 Hz tuning fork. Results Reviewed Results Reviewed: Laboratory Last Values Glucose (Clinic) 288 mg/dL (60-115) H 01/28/24 12:48 Assessment & Plan Assessment & Plan (1) 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: Code(s): E11.22 - Type 2 diabetes mellitus with diabetic chronic kidney disease; N18.6 - End stage renal disease Category: Medical Plan: Type 2 diabetic with end-stage renal disease on HD. 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
[2024-01-28 12:43] VITALS: BP 150/50; PULSE 74; BMI 37.5
[2024-01-28 12:57] LABS: Glucose, Whole Blood 288 mg/dL (60-115)
== END 2024-01-28 13:11 | disposition home or self-care (01) ==
PROVIDERS: PCP Internal Medicine; Visit Provider Nurse Practitioner Adult Health
DX: E11.22 Type 2 diabetes mellitus with diabetic chronic kidney disease (principal); N18.6 End stage renal disease
CPT/HCPCS: 99214

== ENCOUNTER → 2024-01-28 12:35 | Outpatient (BNVA) | payer MEDICAID, SELFPAY | PROVIDERS: PCP Internal Medicine; Visit Provider Nurse Practitioner Adult Health | DX: E11.22 Type 2 diabetes mellitus with diabetic chronic kidney disease (principal); E11.319 Type 2 diabetes mellitus with unspecified diabetic retinopathy without macular edema; N18.6 End stage renal disease; Z99.2 Dependence on renal dialysis | CPT/HCPCS: 82947; 99212 ==

== ENCOUNTER 2024-02-02 14:43 | Outpatient (REF) | payer MEDICAID, SELFPAY ==
[2024-02-02 16:59] LABS: Alanine Aminotransferase 13 U/L (0-31); Alkaline Phosphatase 103 U/L (39-117); Aspartate Amino Transferase 11 U/L (5-31); Bilirubin Direct 0.2 mg/dL (0.0-0.5); Bilirubin Total 0.6 mg/dL (0.0-1.0); Total Protein 7.6 g/dL (6.5-8.0)
[2024-02-03 04:43] LABS: Hepatitis A Antibody IgM 0.14 Index (0-0.79); ~Hepatitis A Antibody IgM Nonreactive (Nonreactive)
== END 2024-02-02 14:44 | disposition home or self-care (01) ==
LOC: HO.HHCL 14:43
PROVIDERS: Visit Provider Internal Medicine
DX: B15.9 Hepatitis A without hepatic coma (principal)
CPT/HCPCS: 36415; 80076; 86709

== ENCOUNTER 2024-02-11 13:08 | Outpatient (AMB) | payer MEDICAID, SELFPAY ==
--- NOTE | 2024-02-11 13:25 | A.OFFVIS_ITS ---
Intake Intake Visit Reasons: DM Belt Sander Stone Required: Yes Belt Sander Stone Language: Limb Driver Name: Pt's PROFESSOR OF SPORT MANAGEMENT Accompanied by: Other Relationship Allergies tresiba Adverse Reaction (Mild, Uncoded 01/28/24 12:51) Diarrhea HPI Comprehensive Diabetes Asmnt Most Recent Diabetes Results: Creatinine 7.25 mg/dL (0.5-1.4) H* 01/26/24 Blood Urea Nitrogen 49 mg/dL (9-16) H 01/26/24 Sodium 139 mmol/L (135-145) 01/26/24 Potassium 5.0 mmol/L (3.3-5.1) 01/26/24 Chloride 99 mmol/L (96-108) 01/26/24 Carbon Dioxide 27 mmol/L (22-29) 01/26/24 Calcium 10.3 mg/dL (8.4-10.2) H 01/26/24 AST 11 U/L (5-31) 02/02/24 ALT 13 U/L (0-31) 02/02/24 Total Protein 7.6 g/dL (6.5-8.0) 02/02/24 Albumin 4.0 g/dL (3.5-5.0) 02/02/24 [facility] 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 Uncontrolled type 2 diabetes mellitus with hyperglycemia, with long-term current use of insulin Hidradenitis suppurativa Pneumonia Type 2 diabetes mellitus with hyperglycemia Paroxysmal atrial flutter Dysphonia Chronic cough Urinary frequency Dyspnea on exertion Unstable gait Asthma Chronic low back pain without sciatica Osteoarthritis of both knees Kidney stones Depression AMARJIT (obstructive sleep apnea) Normocytic anemia ESRD needing dialysis CHF (congestive heart failure) Obesity due to excess calories CAD (coronary artery disease) GERD (gastroesophageal reflux disease) Thyroid disease AV fistula HLD (hyperlipidemia) ESRD (end stage renal disease) T2DM (type 2 diabetes mellitus) End stage renal disease on dialysis Dialysis patient Renal failure (ARF), acute on chronic HTN (hypertension) Surgical History History of kidney surgery Hx of cholecystectomy Hx of bone graft Family History Father CVD (cardiovascular disease) Diabetes Mother Diabetes Sister Stomach cancer Social History Household Members: Family Housing: House Do you presently have visiting nurse or other home services: No Unable to assess alcohol history related to: Unknown Alcohol intake: never Patient Tobacco Use Status: Never used Tobacco Advance Directives Date on File: 02/15/21 service: No Current occupational status: disabled Current occupation: right hand dominant Assessment & Plan Assessment & Plan (1) 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: Code(s): E11.22 - Type 2 diabetes mellitus with diabetic chronic kidney disease; N18.6 - End stage renal disease Plan: Patient at visit to set up an insert Tika 3 Instructed patient sensors water proof you can shower, or swim do not submerge sensor in water for over 30 minutes Is sensor falls off cannot put back in you need to replace sensor, customer service number given to patient for sensor replacement Sensor placed on the back of Right Arm Patient left visit with sensor in warmup Reviewed how to interpret trend arrows Reminded patient that to check finger sticks if symptoms do not match sensor reading. Discussed lag time between finger stick and sensor data.? Instructed patient she should always keep blood glucometer for backup testing if needed Reviewed delay of CGM from fingersticks Reminded pt that if symptoms do not match sensor still needs to check fingersticks. Portions of this note were created using voice recognition software, please excuse any words or phrases that may have been misinterpreted. Patient Instructions: Patient instruction: CGM provides information on blood glucose control throughout the day, including hyperglycemia and hypoglycemia. ? Continue to monitor blood glucose as instructed. Follow nutrition guidelines provided. Report any discomfort promptly to health care provider. ?Stay well-hydrated. You can bathe ,shower, swim and exercise while wearing the glucose sensor. Do not submerge glucose sensor in water for more than 30 minutes. Instrucciones para el paciente: CGM proporciona informaci?n sobre el control de la glucosa en rick a lo chioma del d?a, incluidas la hiperglucemia y la hipogl ucemia. Contin?e controlando la glucosa en rick seg?n las instrucciones. Siga las pautas de nutrici?n proporcionadas. Informe cualquier molestia de inmediato al proveedor de atenci?n m?dica. Mantente anatoliy hidratado. Puede ba?arse, ducharse, nadar y hacer ejercicio mientras usa el sensor de glucosa. No sumerja el sensor de glucosa en agua shailesh m?s de 30 minutos. Retire el sensor para sal resonancia magn?robert o sal tomograf?a computarizada. 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
== END 2024-02-11 13:30 | disposition home or self-care (01) ==
PROVIDERS: PCP Internal Medicine; Visit Provider Registered Nurse Diabetes Educator
DX: E11.22 Type 2 diabetes mellitus with diabetic chronic kidney disease (principal); N18.6 End stage renal disease

== ENCOUNTER → 2024-02-11 13:08 | Outpatient (BNVA) | payer MEDICAID, SELFPAY | PROVIDERS: PCP Internal Medicine; Visit Provider Registered Nurse Diabetes Educator | DX: E11.22 Type 2 diabetes mellitus with diabetic chronic kidney disease (principal); N18.6 End stage renal disease | CPT/HCPCS: 99211 ==

== ENCOUNTER 2024-02-25 12:24 | Outpatient (AMB) | payer MEDICAID, SELFPAY ==
--- NOTE | 2024-02-25 08:51 | A.OFFVIS_ITS ---
Vital Signs 02/25/24 12:32 Height 5 ft 3 in Weight 213 lb 13.574 oz BMI 37.9 BP 148/60 H Blood Pressure Location Rt brachial Position Sitting Pulse 96 Pulse Source Pulse Oximeter Intake Visit Reasons: DM/CONFIRMED Intake Note: Patient presents today for a follow-up on Type 2 Diabetes Mellitus: Last Diabetic Eye exam: 12/02/23 Last Podiatry Exam: Does not see a Iron Guardrail Installer Most recent HbA1c: 9.1%, 12/03/2023 Random Glucose- 269mg/dL, Today First Assist Required: Yes First Assist Language: Tank Riveter Services: First Assist Offered & Declined Accompanied by: Self / Same As Patient Allergies tresiba Adverse Reaction (Mild, Uncoded 02/25/24 12:31) Diarrhea HPI Comments Details: Patient is a?58-year-old female with DM type 2 who presents for continued management of her diabetes. She was recently seen by Ashlyn COTA for sensor initiation and last seen by myself 1 month ago. I attempted to change her insulin from Toujeo to degludec several months ago which triggered diarrhea. She is now on a freestyle Tika 2 and has been doing much better on this. She had 1 low in dialysis of 28 but when it was rechecked by fingerstick it was in normal range. Past medical history includes :? diabetes type 2, end-stage renal disease,dialysis MWF Micro and macrovascular complications: end-stage renal disease, retinopathy with current anti VEGF therapy Diabetes medications: ? Toujeo 14 units (missed last 3 days due to fear of low) Januvia 25 mg PO daily Humalog sliding scale to? 80-100: 8 units; 101-200: 10 units; 201-300: 12 units; >301 14 units.? Freestyle tika sensor 3 average glucose: 164 14 day continuous glucose sensor report reviewed Glucose Management indicator 7.2 % Time CGM active 97 % TIme in ranges: 2 % very high (above 250) 35 % high (181-250) 63 % in range (70-180] 0 % low (69-55) 0 % very low (below 54) 25 Glucose variability [ ] (target <36%) Interpretation of CGMS [ the patient has not taken Toujeo over the last 3 days because she had a low in dialysis since that time her glucose numbers have increased] Hyperglycemia: + polyuria Last LDL 30 12/15 Exercise: limited Brush Hand - CDE education: sees restaurant host at dialysis Iron Guardrail Installer: self care Denies numbness, tingling, cramping Ophthalmology evaluation: last eye appointment 12/02/23 Has had retinal injections. I confirmed her dosing of levothyroxine 25 mcg with the pharmacist 02/25/24.. Most recent TSH 02/15 2.25 . PFSH 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 Uncontrolled type 2 diabetes mellitus with hyperglycemia, with long-term current use of insulin Hidradenitis suppurativa Pneumonia Type 2 diabetes mellitus with hyperglycemia Paroxysmal atrial flutter Dysphonia Chronic cough Urinary frequency Dyspnea on exertion Unstable gait Asthma Chronic low back pain without sciatica Osteoarthritis of both knees Kidney stones Depression AMARJIT (obstructive sleep apnea) Normocytic anemia ESRD needing dialysis CHF (congestive heart failure) Obesity due to excess calories CAD (coronary artery disease) GERD (gastroesophageal reflux disease) Thyroid disease AV fistula HLD (hyperlipidemia) ESRD (end stage renal disease) T2DM (type 2 diabetes mellitus) End stage renal disease on dialysis Dialysis patient Renal failure (ARF), acute on chronic HTN (hypertension) Surgical History History of kidney surgery Hx of cholecystectomy Hx of bone graft Family History Father CVD (cardiovascular disease) Diabetes Mother Diabetes Sister Stomach cancer Social History Household Members: Family Housing: House Do you presently have visiting nurse or other home services: No Unable to assess alcohol history related to: Unknown Alcohol intake: never Patient Tobacco Use Status: Never used Tobacco Advance Directives Date on File: 02/15/21 service: No Current occupational status: disabled Current occupation: right hand dominant Physical Exam Vital Signs: Last Vital Signs Pulse 96 02/25/24 12:32 BP 148/60 H 02/25/24 12:32 BMI result Body Mass Index 37.9 Const Other: Absence of Cushingoid features. Absence of acromegalic features. Neck exam reveals slight goiter. No thyroid nodules palpable. Heart S1 S2, Reg R/R. No M/R G. Skin exam reveals absence of vitiligo or acanthosis nigricans. No edema Visual exam of foot performed. No ulcerations or open lesions. No inter digit maceration or fissuring. No onychomycosis, no callouses. Sensation intact to monofilament exam. Vibratory sensation is normal with 128 Hz tuning fork. Results Reviewed Results Reviewed: Laboratory Last Values Glucose (Clinic) 269 mg/dL (60-115) H 02/25/24 12:37 Laboratory Tests 08/11/23 08/14/23 12/01/23 22:53 18:16 13:06 Plt Count 173 Potassium 4.1 D Creatinine 5.41 H* Estim Creat Clear Calc 21.7 Estimated GFR 8 Glucose (Clinic) POC Glucose 291 H Random Glucose Hgb A1c (Clinic) Calcium 9.5 AST 9 ALT 9 Triglycerides 81 Cholesterol 77 LDL Cholesterol, Calc 30 HDL Cholesterol 31 L 25-OH Vitamin D Total TSH 3.36 Thyroglobulin Urine Protein 12/03/23 12/03/23 01/26/24 14:35 14:39 14:16 Plt Count Potassium Creatinine Estim Creat Clear Calc Estimated GFR Glucose (Clinic) 386 H* POC Glucose Random Glucose Hgb A1c (Clinic) 9.1 H Calcium 10.0 AST ALT Triglycerides Cholesterol LDL Cholesterol, Calc HDL Cholesterol 25-OH Vitamin D Total 43.0 TSH 2.25 Thyroglobulin 18.3 Urine Protein 01/26/24 01/26/24 14:53 18:09 Plt Count 202 Potassium 5.0 Creatinine 7.25 H* Estim Creat Clear Calc Estimated GFR Glucose (Clinic) POC Glucose Random Glucose 177 H Hgb A1c (Clinic) Calcium 10.3 H AST ALT Triglycerides Cholesterol LDL Cholesterol, Calc HDL Cholesterol 25-OH Vitamin D Total TSH Thyroglobulin Urine Protein 100 (2+) H Assessment & Plan Assessment & Plan (1) 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: Code(s): E11.22 - Type 2 diabetes mellitus with diabetic chronic kidney disease; N18.6 - End stage renal disease Category: Medical Plan: 58-year-old type 2 diabetic with end-stage renal disease on HD, neuropathy and retinopathy requiring injections with an A1c of 9.1% on 12/03/23 with improving glycemic control now on a glucose sensor. She had a low in dialysis but by fingerstick was running higher. She was fearful of taking the Toujeo so stopped for 3 days and her numbers have started to rise. New dosing: Toujeo 14 units (if SAMPLER FIRST notices averages are running over 160 with no lows can increase to 18) Humalog before meals 80-150 8 units 151-200 10 units 201 to 300 12 units Over 300 14 units A prescription for backup glucometer, test strips, lancets and glucose tablets was sent to the pharmacy Medications: New levothyroxine 25 mcg PO DAILY 90 days 90 tabs 3RF glucose (Dex4 Glucose) every 15 minutes until symptoms of low blood sugar are controlled 16 grams (4 x 4 gram) PO Q15M 30 days PRN 30 tabs 3RF hypoglycemia MDD 16 tablets Changed From blood sugar diagnostic (FreeStyle Lite Strips) TEST BLOOD SUGAR FOUR TIMES DAILY 100 strips 11RF To FreeStyle Lite Strips (blood sugar diagnostic) TEST BLOOD SUGAR FOUR TIMES DAILY prn sensor failure or to confirm sensor readings 50 ea 11RF NS From lancets (TRUEplus Lancets) TEST BLOOD SUGAR FOUR TIMES DAILY #100 11RF To lancets (TRUEplus Lancets) TEST BLOOD SUGAR FOUR TIMES DAILY prn to confirm sensor reading or sensor failure 50 ea 11RF Refilled blood-glucose meter (FreeStyle Lite Meter kit) As directed 1 ea 0RF Patient Instructions: The patient was counseled to achieve a target A1C of 7% (154 avg). Fasting blood sugars should be 90-130 in the morning and less than 180 two hours after meals. Reviewed the relationship between poor diabetic control and the development of complications. The patient was counseled to wear closed toe shoes, never walk barefooted and to inspect the feet daily. For any signs of infection or open wound patient should notify PCP or go to urgent care. Coding Level of Care Code Est Pt Level 4 (20448) Complex EM visit Add On G2211 Diagnoses 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 E11.22; N18.6 Time Spent (min) 30 Comment Time spent reviewing labs/provider notes, face to face, chart doc
[2024-02-25 12:32] VITALS: BP 148/60; PULSE 96; BMI 37.9
[2024-02-25 12:41] LABS: Glucose, Whole Blood 269 mg/dL (60-115)
== END 2024-02-25 13:15 | disposition home or self-care (01) ==
PROVIDERS: PCP Internal Medicine; Visit Provider Nurse Practitioner Adult Health
DX: E11.22 Type 2 diabetes mellitus with diabetic chronic kidney disease (principal); N18.6 End stage renal disease
CPT/HCPCS: 99214

== ENCOUNTER → 2024-02-25 12:24 | Outpatient (BNVA) | payer MEDICAID, SELFPAY | PROVIDERS: PCP Internal Medicine; Visit Provider Nurse Practitioner Adult Health | DX: E11.22 Type 2 diabetes mellitus with diabetic chronic kidney disease (principal); N18.6 End stage renal disease | CPT/HCPCS: 82947; 99212 ==

== ENCOUNTER 2024-03-08 15:39 | Outpatient (REF) | payer MEDICAID, SELFPAY | END 2024-03-08 15:40 | disposition home or self-care (01) | LOC: HO.US 15:39 | PROVIDERS: PCP Internal Medicine; Visit Provider Internal Medicine | DX: E04.1 Nontoxic single thyroid nodule (principal) | CPT/HCPCS: 76536 ==

== ENCOUNTER 2024-03-10 13:08 | Outpatient (AMB) | payer MEDICAID, SELFPAY ==
[2024-03-10 13:12] VITALS: BP 134/62; PULSE 54; BMI 37.6
--- NOTE | 2024-03-10 13:12 | A.OFFVIS_ITS ---
Vital Signs 03/10/24 13:12 Height 5 ft 3 in Weight 212 lb 1.355 oz BMI 37.6 BP 134/62 Blood Pressure Location Rt brachial Position Sitting Pulse 54 Pulse Source Monitor Intake Visit Reasons: kidney transplant-km pt Coat Operator Insulator Required: No Sap Basis Architect: Sap Basis Architect Present Allergies tresiba Adverse Reaction (Mild, Uncoded 03/10/24 13:15) Diarrhea Medication List - Last Reconciled 03/10/24 by CELESTINA Romero amlodipine 10 mg PO QAM 90 days apixaban (Eliquis) 5 mg PO BID 90 days atorvastatin 40 mg PO DAILY blood-glucose meter (FreeStyle Lite Meter kit) As directed blood-glucose meter,continuous (FreeStyle Tika 3 Tyler) As directed blood-glucose meter,continuous (FreeStyle Tika 3 Tyler) As directed blood-glucose sensor (FreeStyle Tika 3 Sensor device) As directed blood-glucose sensor (FreeStyle Tika 3 Sensor device) As directed cefuroxime axetil 250 mg PO BID 7 days chlorhexidine gluconate 4% (Hibiclens) 1 appl topically lather in shower every 3-4 days, leave on skin for 1 monute before rinsing; 2 doses cholecalciferol (vitamin D3) 1 cap PO QAM doxycycline hyclate 100 mg PO BID 30 days FreeStyle Lite Strips (blood sugar diagnostic) TEST BLOOD SUGAR FOUR TIMES DAILY prn sensor failure or to confirm sensor readings NS gabapentin 200 mg PO BID glucose (Dex4 Glucose) 16 grams (4 x 4 gram) PO Q15M PRN 30 days MDD 16 tablets hydralazine 1 tab PO TID@0900,1200,1800 insulin glargine U-300 conc (Toujeo SoloStar U-300 Insulin) 28 units (0.0933 mL) subcut BEDTIME 30 days insulin lispro 8 - 14 units (0.08 - 0.14 mL) subcut DIRECTED lancets (TRUEplus Lancets) TEST BLOOD SUGAR FOUR TIMES DAILY prn to confirm sensor reading or sensor failure levothyroxine 25 mcg PO DAILY 90 days lidocaine 5% 1 patch topical DAILY lisinopril 10 mg PO BEDTIME 90 days melatonin 5 mg PO BEDTIME metoprolol tartrate 50 mg PO Q12H oxycodone 5 mg PO BID PRN pen needle, diabetic (BD Ultra-Fine Micro Pen Needle) As directed 4 times a day sevelamer carbonate 800 mg PO TIDAC sitagliptin phosphate (Januvia) 25 mg PO QAM tramadol 50 mg PO BID PRN tramadol 50 mg PO Q8H PRN HPI HPI kidney transplant- pt: Details: Sarah is a 59 yo female with PMH of HTN, HLD, DM, ESRD on dialysis, obstructive sleep apnea with CPAP use, nonobstructive CAD, PAF, on Eliquis who presents for follow up and preop cardiovascular clearance for renal transplant. Today she reports that she has been feeling well since her last visit here 10/17/2021. She denies any recent heart problems. She has no chest discomfort at rest or with activity. She denies shortness of breath, PND, orthopnea or edema. No lightheadedness, presyncope, syncope, falls. She has been ambulating more than she used to. She no longer needs a walker. She is able to do light activities around her home such as cooking and light housework. She can walk around [facility] with a carriage and tolerates it well. Has been attending dialysis sessions without missed appointments. Daughter is present and assisting with Haitian translation at their request. 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 Uncontrolled type 2 diabetes mellitus with hyperglycemia, with long-term current use of insulin Hidradenitis suppurativa Pneumonia Type 2 diabetes mellitus with hyperglycemia Paroxysmal atrial flutter Dysphonia Chronic cough Urinary frequency Dyspnea on exertion Unstable gait Asthma Chronic low back pain without sciatica Osteoarthritis of both knees Kidney stones Depression AMARJIT (obstructive sleep apnea) Normocytic anemia ESRD needing dialysis CHF (congestive heart failure) Obesity due to excess calories CAD (coronary artery disease) GERD (gastroesophageal reflux disease) Thyroid disease AV fistula HLD (hyperlipidemia) ESRD (end stage renal disease) T2DM (type 2 diabetes mellitus) End stage renal disease on dialysis Dialysis patient Renal failure (ARF), acute on chronic HTN (hypertension) Surgical History History of kidney surgery Hx of cholecystectomy Hx of bone graft Family History Father CVD (cardiovascular disease) Diabetes Mother Diabetes Sister Stomach cancer Social History Household Members: Family Housing: House Do you presently have visiting nurse or other home services: No Unable to assess alcohol history related to: Unknown Alcohol intake: never Patient Tobacco Use Status: Never used Tobacco Advance Directives Date on File: 02/15/21 service: No Current occupational status: disabled Current occupation: right hand dominant Review of Systems Const All systems reviewed & are unremarkable except as noted in HPI and below ENT Denies dizziness Card Denies chest pain, Denies chest pain at rest, Denies chest pain with activity, Denies rapid heart rate, Denies pedal edema, Denies edema, Denies leg edema, Denies lightheadedness, Denies palpitations, Denies dyspnea, Denies dyspnea on exertion and Denies orthopnea Resp Denies cough, Denies dyspnea and Denies dyspnea on exertion GI Denies hematochezia and Denies change in stool character Musc Denies abnormal gait, Denies limited range of motion, Denies muscle cramps, Denies muscle weakness, Denies numbness, Denies radiating pain into limb, Denies stiffness and Denies tingling Neuro Denies abnormal gait, Denies dizziness, Denies numbness and Denies tingling Endo Denies palpitations Physical Exam Vital Signs: BMI result Body Mass Index 37.6 Const General: cooperative, no acute distress, alert and awake Orientation/consciousness: patient oriented x3 Neck Neck: Yes normal visual inspection Resp Effort & Inspection: normal respiratory effort, able to speak in complete sentences and not labored Auscultation: clear to auscultation bilaterally, no crackles, no rales, no rhonchi and no wheezes Cardio Rate: regular rate Rhythm: regular rhythm Heart sounds: S1 normal heart sound present and S2 normal heart sound present Peripheral pulses: Peripheral pulses 2+ throughout GI Inspection: Yes normal to inspection Neuro General: patient oriented x3 Extrem General: Yes normal to inspection and No edema Office Procedures EKG Details: Today, read by me, sinus bradycardia with first-degree AV block, rate 54, QTC 432 milliseconds, can not exclude prior anterior infarct, no significant change from prior EKG. [id number], Complete Assessment & Plan Assessment & Plan (1) CAD (coronary artery disease): Code(s): I25.10 - Atherosclerotic heart disease of [place] coronary artery without angina pectoris Category: Medical Plan: History of nonobstructive CAD. Last echocardiogram done on 02/13/2021 shows EF 55-60%, grade 2 diastolic dysfunction, mild LVH, moderate left atrial enlargement, small pericardial effusion.? There is basal inferior and basal inferior septal akinesis which is new from echo 05/2019.?A Nuclear stress test was done 04/12/21 showing possible infarct vs diaphragm attenuation artifact. Cardiac catheterization was delayed due to other medical issues. She did undergo cardiac catheterization on 09/03/21 showing mild LAD and LCx stenosis and 30-40% distal RCA stenosis. This does not explain her episodes of chest discomfort or WMA on echo. On follow-up she had no anginal sounding symptoms and was continued on med management. Today she reports that she has been doing well since her last visit 10/17/2021. She denies any chest discomfort at rest or with activity. She has been increasing her walking and says she tolerates it well. She does not climb stairs and only does light activities in her home. EKG done today showing sinus bradycardia with first-degree AV block, can not exclude prior anterior infarct, unchanged from prior EKG, rate 54. She needs ongoing risk factor modification including good blood pressure, blood sugar and cholesterol control. She is not on aspirin as she is on Eliquis. She is on atorvastatin with ideal LDL goal less than 70. Labs done 12/01/2023 showed LDL 30. She is on lisinopril, amlodipine, metoprolol and hydralazine for good blood pressure control. Blood pressure today 134/62. No med changes made at this time. She is preop for renal transplant. Will order echocardiogram. s/s angina reviewed with her. All the above discussed with her. Cardiology follow up in 6 mo, sooner if needed (2) S/P cardiac cath: Comment: 09/03/21 LM normal, LAD mild luminal irregularities < 30% stenosis, LCx mild luminal irregularities < 30%, Distal RCA 30-40% stenosis Code(s): Z98.890 - Other specified postprocedural states Category: Surgical (3) Paroxysmal atrial flutter: Code(s): I48.92 - Unspecified atrial flutter Category: Medical Plan: History of paroxysmal atrial flutter. No recent palpitations. EKG done today showing sinus bradycardia, first-degree AV block. On metoprolol for rate control.- no recent change to her EKGs. Will continue current dose. On eliquis for anticoagulation. Labs done 01/26/2024 showed hematocrit 32.9, creatinine 7.25, she is on dialysis. No bleeding issues reported. Continue current tx. (4) HTN (hypertension): Code(s): I10 - Essential (primary) hypertension Category: Medical Qualifiers: Hypertension type: unspecified Qualified Code(s): I10 - Essential (primary) hypertension Plan: Controlled at present time. No med changes made. (5) ESRD (end stage renal disease): Code(s): N18.6 - End stage renal disease Category: Medical Plan: Attends dialysis 3 times weekly. Follows closely with nephrology (6) Preop cardiovascular exam: Code(s): Z01.810 - Encounter for preprocedural cardiovascular examination Category: Medical Plan: Preop for renal transplant. Cardiac catheterization as above. No reports of anginal sounding symptoms. Will be checking echocardiogram. If abnormal findings then may need nuclear stress test for further evaluation. Plan to update this note once test results are known. Plan Time spent on chart review, documentation, interview and assessment Orders: Orders CA echo transthoracic complete Today G47.33 - Obstructive sleep apnea (adult) (pediatric), I25.10 - Atherosclerotic heart disease of [place] coronary artery without angina pectoris Coding Level of Care Code Est Pt Level 4 (75702) Complex EM visit Add On G2211 Diagnoses CAD (coronary artery disease) I25.10 S/P cardiac cath Z98.890 Paroxysmal atrial flutter I48.92 Hypertension, unspecified type I10 Hypertension type: unspecified ESRD (end stage renal disease) N18.6 Preop cardiovascular exam Z01.810 CPT Codes EKG - CPT: [id number], Complete ([id number]) Time Spent (min) 36
== END 2024-03-10 13:40 | disposition home or self-care (01) ==
PROVIDERS: PCP Internal Medicine; Visit Provider Nurse Practitioner Family
DX: I25.10 Atherosclerotic heart disease of native coronary artery without angina pectoris (principal); Z98.890 Other specified postprocedural states; I48.92 Unspecified atrial flutter; I12.0 Hypertensive chronic kidney disease with stage 5 chronic kidney disease or end stage renal disease; N18.6 End stage renal disease; Z01.810 Encounter for preprocedural cardiovascular examination
CPT/HCPCS: 93010; 99214; G2211

== ENCOUNTER → 2024-03-10 13:08 | Outpatient (BNVA) | payer MEDICAID, SELFPAY | PROVIDERS: PCP Internal Medicine; Visit Provider Nurse Practitioner Family | DX: Z01.810 Encounter for preprocedural cardiovascular examination (principal); I25.10 Atherosclerotic heart disease of native coronary artery without angina pectoris; I48.92 Unspecified atrial flutter; I12.0 Hypertensive chronic kidney disease with stage 5 chronic kidney disease or end stage renal disease; N18.6 End stage renal disease; Z79.01 Long term (current) use of anticoagulants; Z79.899 Other long term (current) drug therapy | CPT/HCPCS: 93005 ==

== ENCOUNTER 2024-03-24 12:44 | Outpatient (AMB) | payer MEDICAID, SELFPAY ==
--- NOTE | 2024-03-24 13:19 | MHC.AMDMED ---
Intake Intake Visit Reasons: 60 Min-no vm Large Sheetfed Press Operator Required: Yes Large Sheetfed Press Operator Language: Lab Analyst Name: Pt's Amie Information Interpreted: non-clinical & clinical Accompanied by: Other Relationship Allergies tresiba Adverse Reaction (Mild, Uncoded 03/10/24 13:15) Diarrhea HPI Comprehensive Diabetes Asmnt Most Recent Diabetes Results: Hemoglobin A1c 9.3 % 03/26/18 Microalb/Creat Ratio 419.5 ug/mg cr 07/23/20 Cholesterol 77 mg/dL (<200) 12/01/23 HDL Cholesterol 31 mg/dL (>40) L 12/01/23 Triglycerides 81 mg/dL (<150) 12/01/23 Creatinine 7.25 mg/dL (0.5-1.4) H* 01/26/24 Blood Urea Nitrogen 49 mg/dL (9-16) H 01/26/24 Sodium 139 mmol/L (135-145) 01/26/24 Potassium 5.0 mmol/L (3.3-5.1) 01/26/24 Chloride 99 mmol/L (96-108) 01/26/24 Carbon Dioxide 27 mmol/L (22-29) 01/26/24 Calcium 10.3 mg/dL (8.4-10.2) H 01/26/24 AST 11 U/L (5-31) 02/02/24 ALT 13 U/L (0-31) 02/02/24 Total Protein 7.6 g/dL (6.5-8.0) 02/02/24 Albumin 4.0 g/dL (3.5-5.0) 02/02/24 [facility] 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 Uncontrolled type 2 diabetes mellitus with hyperglycemia, with long-term current use of insulin Hidradenitis suppurativa Pneumonia Type 2 diabetes mellitus with hyperglycemia Paroxysmal atrial flutter Dysphonia Chronic cough Urinary frequency Dyspnea on exertion Unstable gait Asthma Chronic low back pain without sciatica Osteoarthritis of both knees Kidney stones Depression AMARJTI (obstructive sleep apnea) Normocytic anemia ESRD needing dialysis CHF (congestive heart failure) Obesity due to excess calories CAD (coronary artery disease) GERD (gastroesophageal reflux disease) Thyroid disease AV fistula HLD (hyperlipidemia) ESRD (end stage renal disease) T2DM (type 2 diabetes mellitus) End stage renal disease on dialysis Dialysis patient Renal failure (ARF), acute on chronic HTN (hypertension) Surgical History History of kidney surgery Hx of cholecystectomy Hx of bone graft Family History Father CVD (cardiovascular disease) Diabetes Mother Diabetes Sister Stomach cancer Social History Household Members: Family Housing: House Do you presently have visiting nurse or other home services: No Unable to assess alcohol history related to: Unknown Alcohol intake: never Patient Tobacco Use Status: Never used Tobacco Advance Directives Date on File: 02/15/21 service: No Current occupational status: disabled Current occupation: right hand dominant Assessment & Plan Assessment & Plan (1) 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: Code(s): E11.22 - Type 2 diabetes mellitus with diabetic chronic kidney disease; N18.6 - End stage renal disease Plan: Personal Continuous Glucose Monitor: Patients CGM information reviewed, Pt uses FreeStyle tika 3 Sensor data: Hypoglycemia: 0%? Hyperglycemia:?71% Time in Range:? 29% Average glucose for the last 2 weeks? 216 mg/dL Reports she was recently seen by her PCP and was told her A1c was 7.8% Patient is currently on dialysis, explained to patient the due to kidney disease the A1c may not be accurate. Recommended to patient she monitor average on her freestyle Tika 3, with the goal of having her average glucose proximally 150 mg/dL Patient did not increase Toujeo to 18 units as instructed by BOTTLE PACKING MACHINE CLEANER at last visit if fasting glucose ranges over 160 mg/dL Instructed patient to try Toujeo 18 units, if she has an increase pattern of hypoglycemia she can reduce back to Toujeo 14 units Reviewed with patient how to treat hypoglycemia with rule of 15s, Divehi handout given Reviewed with patient foods that contain carbohydrates, patient given list of common [facility] foods that contain carbohydrates Called [facility] pharmacy, patient reports she has not received freestyle Lite glucose meter, pharmacy reports it will be ready for black pickler on 03/25/2024 Patient has follow-up visit with provider on 04/28/2024 Patient able to insert sensor independently at home without issue.? Portions of this note were created using voice recognition software, please excuse any words or phrases that may have been misinterpreted. Patient Instructions: Toujeo 18 units daily Humalog before meals 80-150 8 units 151-200 10 units 201 to 300 12 units Over 300 14 units Contact certified adapted physical educator with questions or concerns Follow-up with certified adapted physical educator in 3 months Coding Level of Care Code Est Pt Level 1 (52165) Diagnoses 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 E11.22; N18.6
== END 2024-03-24 13:30 | disposition home or self-care (01) ==
LOC: HO.ENCR 12:45
PROVIDERS: PCP Internal Medicine; Visit Provider Registered Nurse Diabetes Educator
DX: E11.22 Type 2 diabetes mellitus with diabetic chronic kidney disease (principal); N18.6 End stage renal disease

== ENCOUNTER → 2024-03-24 12:44 | Outpatient (BNVA) | payer MEDICAID, SELFPAY | PROVIDERS: PCP Internal Medicine; Visit Provider Registered Nurse Diabetes Educator | DX: E11.22 Type 2 diabetes mellitus with diabetic chronic kidney disease (principal); E11.65 Type 2 diabetes mellitus with hyperglycemia; N18.6 End stage renal disease | CPT/HCPCS: 99211 ==

== ENCOUNTER 2024-04-25 10:23 | Inpatient (IN) | payer MEDICAID, SELFPAY ==
--- NOTE | ~2024-04-25 | CT_ITS ---
EXAMINATION: CT PELVIS WITHOUT CONTRAST CLINICAL INFORMATION: Injury. COMPARISON: CT dated May 01, 2022. TECHNIQUE: Helical scanning was performed with submillimeter collimation through the pelvis. Sagittal and coronal multiplanar 2-D reconstructions were obtained. This CT examination was performed using dose optimization techniques as appropriate, variously including the following: *Automated exposure control *Adjustment of mA and/or kV according to patient size (this includes techniques or standardized protocols for targeted exams where dose is matched to indication/reason for exam; i.e. extremities or head) *Use of iterative reconstruction technique DLP: 395 mGy-cm FINDINGS: Limited evaluation of the solid organs and vascular structures due to lack of IV contrast. Sacrococcygeus is intact. Bony pelvis is intact. Coxofemoral joints are intact. Normal alignment. Subchondral cyst formation and asymmetric joint space narrowing, coxofemoral joints. Sclerosis in the symphysis pubis. Sclerosis and vacuum phenomenon at the sacroiliac joints. Facet joint hypertrophy L4-5 and L5-S1. Vascular complications. Abundant stool, large intestine. No hemoperitoneum, lower pelvic peritoneal cavity. No retroperitoneal hematoma, lower pelvis. Edema pattern in the deep fat planes of the abdominal wall and gluteal regions. Heterogeneous enlarged uterus. CT/CT pelvis wo IV con IMPRESSION: No acute fracture, bony pelvis. Atherosclerosis disease. Spondylosis, L4-5 and L5-S1. Electronically signed by: Mariano Delgado MD 04/25/2024 02:44 PM EST
--- NOTE | ~2024-04-25 | CT_ITS ---
EXAMINATION: CT ANGIOGRAM CHEST CLINICAL INFORMATION: Hypoxemia. Near syncope. COMPARISON: CT chest dated May 01, 2022. TECHNIQUE: Multiple axial images were obtained through the chest after the administration of 65 mL of Omnipaque 350 intravenous contrast. Extensive vascular post-processing including two-dimensional and three-dimensional reformatted images were created and reviewed on an independent workstation. This CT examination was performed using dose optimization techniques as appropriate, variously including the following: *Automated exposure control *Adjustment of mA and/or kV according to patient size (this includes techniques or standardized protocols for targeted exams where dose is matched to indication/reason for exam; i.e. extremities or head) *Use of iterative reconstruction technique DLP: 588 mGy-cm FINDINGS: Limited by patient's motion artifact. No intraluminal filling defects within the main pulmonary artery or its main branches. No aneurysm or dissection, thoracic aorta. Calcified plaques in the thoracic aortic arch the origin of the main branches and the coronary arteries. Bilateral pulmonary mosaic pattern. Multifocal patchy pulmonary groundglass in the periphery of the lower lung lobes, right middle lobe and lingula. Bilateral small volume pleural effusions. No pneumothorax. Prominent lymph nodes in the mediastinum and perihilar likely reactive. No gross pericardial effusion. The heart is enlarged, all 4 chambers. Status post cholecystectomy likely laparoscopic. Calcified plaques throughout the mesenteric arteries and the splenic artery. Small appearance of the left kidney without gross hydronephrosis. Multilevel cervical thoracic and upper lumbar spondylosis without acute fracture or listhesis. No lytic or blastic lesions. CT/CT angio chest PE protocol IMPRESSION: No acute pulmonary artery emboli. No aneurysm or dissection, thoracic aorta. Consider pulmonary edema versus multifocal pneumonia. Bilateral small volume pleural effusions. Cardiomegaly. Fleischner guidelines were followed. Electronically signed by: Mariano Delgado MD 04/28/2024 09:12 AM EST
--- NOTE | ~2024-04-25 | XR_ITS ---
EXAMINATION: XR CHEST CLINICAL INFORMATION: cough COMPARISON: CXR on 04/25/24 TECHNIQUE: Frontal view of the chest was obtained. FINDINGS: The cardiac silhouette is normal. There is mild diffuse bronchial wall thickening. There are no areas of consolidation. There are no pleural effusions or pneumothoraces. The bones and soft tissues are unremarkable for the patient's age. XR/XR chest 1V IMPRESSION: Bronchial wall thickening may be infectious and/or inflammatory in etiology. Electronically signed by: Gloria Robbins MD 04/25/2024 04:42 PM [facility]
--- NOTE | ~2024-04-25 | CT_ITS ---
EXAMINATION: CT HEAD WITHOUT CONTRAST CT CERVICAL SPINE WITHOUT CONTRAST CLINICAL INFORMATION: Trauma. COMPARISON: CT head from 01/26/2024. TECHNIQUE: Contiguous axial imaging was performed from the skull base to vertex without intravenous administration of contrast. Contiguous axial imaging was performed from the upper chest through the skull base without intravenous administration of contrast. Coronal and sagittal reformats were obtained at the acquisition workstation. This CT examination was performed using dose optimization techniques as appropriate, variously including the following: *Automated exposure control. *Adjustment of mA and/or kV according to patient size (this includes techniques or standardized protocols for targeted exams where dose is matched to indication/reason for exam; i.e. extremities or head). *Use of iterative reconstruction technique. DLP: 1801 mGy-cm FINDINGS: Head: There is no evidence of acute intracranial hemorrhage or edematous territorial infarction. Perea-white matter differentiation is preserved. Scattered and partially confluent hypoattenuation in the periventricular and deep white matter are consistent with moderate microangiopathy. Proportional prominence of the ventricles and sulcal spaces without evidence of obstructive hydrocephalus. No abnormal mass effect or midline shift. No extra-axial fluid collections. No acute soft tissue or osseous abnormalities. Mild mucosal thickening of the paranasal sinuses. The mastoid air cells and middle ear cavities are clear. Cervical Spine: The atlantooccipital and atlantoaxial articulations remain well aligned. Straightening of the normal cervical lordosis. Otherwise, there is anatomic alignment of the vertebral bodies and posterior elements. No evidence of acute fracture or subluxation. The vertebral body heights are maintained. Advanced degenerative disc disease at T1-T2. Moderate degenerative disc disease from C3-C7 with disc-osteophyte complex formation. There appears to be at least mild spinal canal stenoses from C3-C6. Facet and uncovertebral joint arthropathy leads to osseous encroachment on the neural foramina from C3-T2. There is no prevertebral soft tissue swelling. The thyroid gland and remaining cervical soft tissues are within normal limits. The lung apices demonstrate no abnormalities. CT/CT cervical spine wo IV con IMPRESSION: 1. No evidence of acute intracranial hemorrhage or edematous territorial infarction. 2. No evidence of acute fracture or traumatic subluxation of the cervical spine. 3. Moderate underlying microangiopathy and generalized cerebral volume loss. 4. Moderate multilevel degenerative spondyloarthropathy of the cervical spine. Most notably on this limited exam without intrathecal contrast, there appears to be at least mild spinal canal stenoses from C3-C6. Electronically signed by: Tomi Lerma DO 04/25/2024 02:00 PM [facility]NEL[facility] FRANCO
[2024-04-25 10:32] VITALS: BP 158/111; PULSE 106; O2SAT 96
--- NOTE | 2024-04-25 10:40 | PC.NURSE ---
Staff cook vacuum kettle to bedside to complete triage assessment Per pt.- nothing to her left arm because she has a fistula to the LUE. Appropriate sign hung in pt.'s room
[2024-04-25 10:57] VITALS: BP 150/46; PULSE 64; RESP 18; TEMP 36.8; O2SAT 95; BMI 37.1
[2024-04-25 11:02] VITALS: BP 150/46; PULSE 64; RESP 18; TEMP 36.8; O2SAT 95
--- NOTE | 2024-04-25 11:05 | ECG_ITS ---
Test Reason : FALL Blood Pressure : / mmHG Vent. Rate : 064 BPM Atrial Rate : 064 BPM P-R Int : 240 ms QRS Dur : 088 ms QT Int : 422 ms P-R-T Axes : 017 035 073 degrees QTc Int : 435 ms Sinus rhythm with 1st degree A-V block Otherwise normal ECG When compared with ECG of 11-AUG-2023 20:02, No significant change was found Referred By: Tarun Johnson Electronically Signed By:Elías Maddox
--- NOTE | 2024-04-25 11:06 | ED.FALL ---
HPI - Fall General Chief Complaint: Fall Stated Complaint: DIZZY W/FALL,HIT HEAD,NAUSEA,+ELIQUIS PER EMS Time Seen by Provider: 04/25/24 10:55 Source: patient and EMS Mode of arrival: EMS History of Present Illness HPI Narrative: This is 59 years old patient with chronic renal failure on hemodialysis Thursday presented to the emergency department after a fall home she stated that she was brushing of the teeth fell backward. She does take Eliquis. complaint: fall Onset (ago): day(s) (1) Fall from: standing Fall witnessed: yes, by family Place fall occurred: home Loss of consciousness: none Related Data Home Medications ?Medication ?Instructions ?Recorded ?Confirmed gabapentin 100 mg capsule 200 mg PO BID neuropathic pain 02/12/21 03/10/24 hydralazine 50 mg tablet 1 tab PO TID@0900,1200,1800 blood 02/12/21 03/10/24 pressure melatonin 5 mg tablet 5 mg PO BEDTIME 02/12/21 03/10/24 atorvastatin 40 mg tablet 40 mg PO DAILY cholesterol 02/26/21 03/10/24 sevelamer carbonate 800 mg tablet 800 mg PO TIDAC 02/26/21 03/10/24 cholecalciferol (vitamin D3) 50 1 cap PO QAM 10/12/21 03/10/24 mcg (2,000 unit) capsule Previous Rx's ?Medication ?Instructions ?Recorded metoprolol tartrate 50 mg tablet 50 mg PO Q12H #60 tabs 06/28/21 amlodipine 10 mg tablet 10 mg PO QAM blood pressure 90 08/02/21 days #90 tabs apixaban 5 mg tablet (Eliquis) 5 mg PO BID 90 days #180 tabs 08/02/21 lisinopril 10 mg tablet 10 mg PO BEDTIME blood pressure 90 08/02/21 days #90 tabs pen needle, diabetic 32 gauge x #150 ea 07/02/2205/28 (BD Ultra-Fine Micro Pen Needle) chlorhexidine gluconate 4 % 1 appl topical .COMPLEX 2 doses 07/08/22 topical liquid (Hibiclens) #473 mL tramadol 50 mg tablet 50 mg PO BID PRN pain #7 tabs 07/29/22 doxycycline hyclate 100 mg tablet 100 mg PO BID 30 days #60 tabs 08/26/22 tramadol 50 mg tablet 50 mg PO Q8H PRN pain, severe #5 03/06/23 tabs lidocaine 5 % topical patch 1 patch topical DAILY #30 ea 05/03/23 oxycodone 5 mg tablet 5 mg PO BID PRN pain #10 tabs 05/03/23 sitagliptin phosphate 25 mg tablet 25 mg PO QAM #30 tabs 07/24/23 (Januvia) blood-glucose meter,continuous #1 ea 12/03/23 (FreeStyle Tika 3 [place]) blood-glucose sensor (FreeStyle #2 ea 12/03/23 Tika 3 Sensor device) blood-glucose meter,continuous #1 ea 12/24/23 (FreeStyle Tika 3 [place]) blood-glucose sensor (FreeStyle #2 ea 12/24/23 Tika 3 Sensor device) insulin glargine U-300 conc 300 28 unit (0.0933 mL) subcut BEDTIME 12/24/23 unit/mL (1.5 mL) subcutaneous pen 30 days #4.5 mL (Toujeo SoloStar U-300 Insulin) cefuroxime axetil 250 mg tablet 250 mg PO BID 7 days #14 tabs 02/02/24 FreeStyle Lite Strips (blood sugar #50 ea 02/25/24 diagnostic) blood-glucose meter (FreeStyle #1 ea 02/25/24 Lite Meter kit) glucose 4 gram chewable tablet 16 g (4 x 4 gram) PO Q15M PRN 02/25/24 (Dex4 Glucose) hypoglycemia 30 days #30 tabs lancets 33 gauge (TRUEplus Lancets) #50 ea 02/25/24 levothyroxine 25 mcg tablet 25 mcg PO DAILY 90 days #90 tabs 02/25/24 insulin lispro 100 unit/mL 8 - 14 unit (0.08 - 0.14 mL) 03/04/24 subcutaneous pen subcut DIRECTED #15 mL Allergies Allergy/AdvReac Type Severity Reaction Status Date / Time No Known Allergies Allergy Verified 04/25/24 10:59 Review of Systems Constitutional: Constitutional: Reports no additional constitutional complaints Eyes: Eyes: Reports no additional eye complaints Respiratory: Respiratory: Reports no additional respiratory complaints PMFSH Past Medical History Attestation statement: The following information was validated with the patient. 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 Uncontrolled type 2 diabetes mellitus with hyperglycemia, with long-term current use of insulin Hidradenitis suppurativa Pneumonia Type 2 diabetes mellitus with hyperglycemia Paroxysmal atrial flutter Dysphonia Chronic cough Urinary frequency Dyspnea on exertion Unstable gait Asthma Chronic low back pain without sciatica Osteoarthritis of both knees Kidney stones Depression AMARJIT (obstructive sleep apnea) Normocytic anemia ESRD needing dialysis CHF (congestive heart failure) Obesity due to excess calories CAD (coronary artery disease) GERD (gastroesophageal reflux disease) Thyroid disease AV fistula HLD (hyperlipidemia) ESRD (end stage renal disease) T2DM (type 2 diabetes mellitus) End stage renal disease on dialysis Dialysis patient Renal failure (ARF), acute on chronic HTN (hypertension) Surgical History History of kidney surgery Hx of cholecystectomy Hx of bone graft Family History Family History Father CVD (cardiovascular disease) Diabetes Mother Diabetes Sister Stomach cancer Social History Social History Household Members: Family Housing: House Do you presently have visiting nurse or other home services: No Unable to assess alcohol history related to: Unknown Alcohol intake: never Patient Tobacco Use Status: Never used Tobacco Smoked in Last 30 Days: No Use of substances other than those prescribed or required for medical reasons: No Advance Directives: Yes Advance Directives on File: Yes Advance Directives Date on File: 02/15/21 Do you have a plan to hurt others: No Plan service: No Current occupational status: disabled Current occupation: right hand dominant Physical Exam Vital Signs: Vital Signs: Last Vital Signs Temp 98.3 F 04/25/24 11:02 Pulse 66 04/25/24 12:31 Resp 19 04/25/24 12:31 BP 150/46 H 04/25/24 11:02 Pulse Ox 95 04/25/24 11:02 O2 Del Method Room Air 04/25/24 11:02 BMI result Body Mass Index 37.1 Patient is not toxic-appearing Const: General: cooperative Nutritional Appearance: well nourished Orientation/consciousness: patient oriented x3 HEENT: Head: Yes normal to inspection Throat: Yes posterior oropharynx normal Neck: Neck: Yes normal visual inspection, Yes full ROM, Yes no lymphadenopathy and Yes no meningeal signs Chest: Chest palpation & inspection: normal inspection of the chest Resp: Effort & Inspection: normal respiratory effort Auscultation: clear to auscultation bilaterally Cardio: Jugular venous distension: no JVD Rate: regular rate Rhythm: regular rhythm GI: Inspection: Yes normal to inspection Skin: General skin exam: no rashes or lesions noted and elasticity normal Lesions: no lesions Rashes: no rashes Wounds: no wounds Neuro: General: patient oriented x3 and no meningeal signs Medications Administered Discontinued Medications Generic Name Dose Route Start Last Admin Trade Name Freq PRN Reason Stop Dose Admin Albuterol Sulfate 7.5 mg/ 10 mg 04/25/24 12:20 04/25/24 12:31 Albuterol Sulfate 2.5 mg INHALE 04/25/24 12:21 10 mg ONCE ONE Administration Procedures EJ/Peripheral Line Arm R: Time Out Performed: Yes Skin Cleansed in Sterile Fashion: Yes Size (gauge): 20 IV Secured and Dressing Applied: Yes Patient Tolerated Procedure: well Additional Comments: Very difficult IV access multiple RN unable to get access, under ultrasound-guided cannulated the right brachial vein with a 20 gauge X 1/3/4 Inch Introcan safety catheter good blood return good flash Medical Decision Making Medical Decision Making [facility] Narrative: Patient presented to the emergency department after a fall she is on the Eliquis we will get a CT labs EKG Differential Diagnosis Differential Diagnoses: The differential diagnosis associated with the presentation includes Vasovagal episode/syncope/mechanical fall Admission/Observation Consideration of admission/observation: Escalation of care including admission/observation considered Consult Healthcare Provider Management of the patient was discussed with: Hospitalist and Director Surgical Lab Data [facility] Lab Attestation statement: I reviewed the patient's lab results. 04/25/24 11:35 04/25/24 11:35 Labs: Lab Results 04/25/24 Range/Units 11:35 WBC 9.5 (4.8-10.8) X10*3/uL RBC 2.83 L (4.20-5.50) X10*6/uL Hgb 9.4 L (12.0-16.0) g/dl Hct 27.5 L (37.0-47.0) % MCV 97.2 (80.0-98.0) fL MCH 33.2 H (27.0-33.0) pg MCHC 34.2 (31.0-35.0) g/dl RDW 15.2 (11.0-16.0) % Plt Count 143 L D (160-400) X10*3/uL MPV 12.7 H (9.4-12.3) fL Immature Gran % (Auto) 0.9 H (0.0-0.4) % Neut % (Auto) 81.2 H (45-73) % Lymph % (Auto) 8.4 L (20-40) % [place] % (Auto) 5.2 (2-11) % Eos % (Auto) 3.9 (0-4) % Baso % (Auto) 0.4 (0-2) % Lymph # (Auto) 0.8 L (1.2-4.9) X10*3/uL [place] # (Auto) 0.5 (0.1-1.2) X10*3/uL Eos # (Auto) 0.4 (0.0-0.4) X10*3/uL Baso # (Auto) 0.0 (0.0-0.2) X10*3/uL Abs Immat Gran (auto) 0.09 H (0.00-0.03) X10*3/uL Absolute Neuts (auto) 7.7 (2.0-8.3) x10*3/uL Absolute Nucleated RBC 0.000 (0.0-0.012) X10*3/uL Nucleated RBC % (auto) 0.0 (0.0-0.2) /100WBC Sodium 135 (135-145) mmol/L Potassium 6.6 H* D (3.3-5.1) mmol/L Chloride 101 (96-108) mmol/L Carbon Dioxide 21 L (22-29) mmol/L Anion Gap 20 (12-20) BUN 81 H (9-16) mg/dL Creatinine 10.31 H* (0.5-1.4) mg/dL Estim Creat Clear Calc 6.5 Estimated GFR 4 Random Glucose 202 H (60-115) mg/dL Calcium 10.0 (8.4-10.2) mg/dL Total Bilirubin 1.0 (0.0-1.0) mg/dL AST 30 (5-31) U/L ALT 25 (0-31) U/L Alkaline Phosphatase 99 (39-117) U/L Troponin I High Sens 163.0 H* (<3.5-17.0) ng/L Total Protein 7.2 (6.5-8.0) g/dL Albumin 3.8 (3.5-5.0) g/dL Independent Interpretation I performed an independent interpretation of an: EKG (EKG reviewed interpreted by me as sinus rhythm 64 essentially unchanged from prior no acute ischemia) Radiology Impression Discussion of test interpretation with radiology: I have reviewed the radiologist's reading. Independent Historian Clinical information obtained from an independent historian. History obtained from or confirmed by: Spouse and EMS External Record Review External record reviewed: Inpatient record Chronic Conditions Patient?s care impacted by: Diabetes CRF on dyalisis Critical Care Time Critical Care Time Critical Care Time: Yes Total Critical Care Time: 60 Attestation: Hyperkalemia,IV calcium,Albuterol talking to renal/hospitalist family EMS Discharge Plan Discharge Clinical Impression: Acute hyperkalemia, Chronic kidney disease with end stage renal failure on dialysis Syncope Qualifiers: Syncope type: unspecified Qualified Code(s): R55 - Syncope and collapse Patient Disposition: Admitted As Inpatient Print Language: Georgian
--- OUTSIDE RECORDS SUMMARY | 2024-04-25 11:11 | XMS_ITS | Continuity of Care Document ---
Author Organization [facility] ter Address [address] [place] [id number]- Care Team Providers Care Tire Adjuster Name Role Phone Cheyenne No MD, Marcella Schroeder Primary Care Physici an Encounter [facility] Date(s): 02/09/24 - 02/10/[address] [address]- Discharge Disposition: A-D/C Home Attending Physician: Malia Chawla DO Admitting Physician: Malia Chawla DO Referring Physician: Not on Staff, Referring MD Allergies, Adverse Reactions, Alerts No Known Allergies [...] EDT, Tablet Start Date: 03/01/19 Status: Ordered gabapentin 100 [...] EDT, Tablet Start Date: 03/01/19 Status: Ordered levothyroxine 0.025 mg oral tablet 1 tablet = 25 mcg, By Mouth, Daily, 0 Refills, Maintenance, 02/04/19 15:44:43 EDT Start Date: 02/04/19 Status: Ordered lisinopril 10 mg oral tablet 30 mg, 3, tablet, By Mouth, Daily at bedtime, # [...] Ordered Toujeo SoloStar 300 units/mL subcutaneous solution = 28 units, Subcutaneous Infusion, Daily at bedtime, 0 Refills, Maintenance, 09/03/21 6:57:00 EDT, Partial fill upon patient request if the prescription is for a schedule II opioid drug. Start Date: 09/03/21 Status: Ordered Vitamin D2 2000 intl units oral capsule 1 capsule = 50 mcg, By Mouth, Daily, with food, # 60 capsule, 0 Refills, Maintenance, 01/14/24 14:57:00 EDT, Capsule, Partial fill upon patient request if the prescription is for a schedule II opioiddrug. Start Date: 01/14/24 Status: Ordered Problem List Condition Confirmation Course Effective Dates Status H ealth Status Informant Anemia of chronic kidney failure Confirmed Active Angina pectoris Confirmed Active AF (atrial fibrillation) Confirmed Active Severe Atrial enlargement, bilateral Confirmed 06/04/17 Active Single chamber [place] scientific Pacemaker Confirmed 04/11/16 Active Chronic diastolic [...] with comorbidity Confirmed Active [facility] Results Radiology Reports * Exam Date Time Procedure Performing Provider Status 02/09/24 10:[address] Angio Neck Stupak , Mike; Auth (Ve rified) Notes: (CT Angio Neck) Reason For Exam: Aneurysm, neck vessel(s);Other: RESULT: CT Angio Neck CT Angio Head, CT Angio Neck Hx of Present Illness: sent from [employer], here for the worst CARTWRIGHT of her life with some visual changes, has been going on for the last 22 days, had dialysis yesterday; Reason: Headache(s); Clinical Question(s): Other:; Hematoma Aneurysm; Order Comment: / Other: TECHNIQUE: CT angiogram of the head and neck was performed after bolus administration of intravenous contrast. 100 mL of Omnipaque 300 was administered intravenously. Coronal and sagittal MIP reformatted images were obtained. Additional 3-D images were created on a separate workstation under concurrent supervision by the attending radiologist. All stenoses are measured using NASCET criteria. Weight-based protocol using automatic tube modulation was used to optimize exposure parameters. RADIATION DOSE PARAMETERS: CTDIvol Body: 11.78 mGy, DLP Body: 801 mGy*cm. CTDIvol Head: 47.70 mGy, DLP Head: 773 mGy*cm. COMPARISON: Noncontrast CT head performed concurrently. FINDINGS: There is a 3 vessel arch which contains scattered mural calcifications. The supraaortic proximal great neck vessels appear normal in caliber and appearance. No hemodynamically significant stenosis. The right common carotid artery is normal in caliber. The right carotid bulb is patent. Mild mural calcifications are seen at the right proximal internal carotid artery. The right proximal ICA shows 0% stenosis by NASCET criteria. The left common carotid artery multiple mural calcifications without stenosis. The left carotid bulb has mild mural calcified and noncalcified atherosclerotic extending to the left proximal internal carotid artery. The left proximal ICA shows 0% stenosis by NASCET criteria. Right vertebral artery: Patent without stenosis. Left vertebral artery: Mural calcifications are seen origin causing a moderate stenosis. The rest is patent without stenosis. Cervical spine: Multilevel spondylosis. Prominent anterior osteophytes, more significant at C5-C6 level. Soft tissues and lung apices: The visualized upper lungs show multiple ill- defined groundglass densities, more on the left. The findings may represent acute infiltrate. Please correlate x-ray. Enlarged left thyroid lobe contains a 1.8 cm lobulated low-attenuation with heterogeneous enhancement. There is no definite abnormality throughout the soft tissue neck. [place]: Concurrent CT of head showed no acute pathology. Generalized volume loss and bilateral periventricular hypodensities are noted. Mucosal thickening in the right maxillary sinus. Bilateral internal carotid arteries at the skull base have multiple mural calcifications. No definite stenosis is seen. Bilateral posterior communicating arteries are visualized. No posterior communicating artery aneurysm is seen. Bilateral ACAs, MCAs and their branches are patent. No stenosis or vessel cut off is seen. No definite aneurysm is noted. Bilateral intracranial vertebral arteries show no definite stenosis. The vertebrobasilar junction is normal. The basilar artery is slightly tortuous. No stenosis or dissection is seen. There is no basilar tip aneurysm. Bilateral room service bellhop and their branches are patent. The superior sagittal sinuses, the straight sinus, bilateral transverse and sigmoid sinuses: Patentwithout dural sinus thrombosis. IMPRESSION: No cutoff or high-grade stenosis of the major branches of the intracranial arteries. No aneurysm, stenosis, or vascular malformations present. The right proximal internal carotid artery show no significant stenosis by NASCET criteria. The left proximal internal carotid artery show no significant stenosis by NASCET criteria. The right cervical vertebral artery shows no significant stenosis. The left vertebral artery has a focal moderate stenosis. The rest shows no significant stenosis. The visualized upper lungs show multiple ill-defined groundglass densities, more on the left. The findings may represent acute infiltrate. Please correlate x-ray. Enlarged left thyroid lobe contains a 1.8 cm lobulated low-attenuation with heterogeneous enhancement. Please correlate with thyroid ultrasound. REFERENCE: NASCET Criteria: The degree of internal carotid stenosis is based on NASCET Criteria: Normal: No stenosis Mild: Less than 50% stenosis Moderate: 50-69% stenosis Severe: 70-99% stenosis Total occlusion: No detectable patent lumen. The preliminary reports were given by the [facility]. WSN: [id number] Ordering Physician: Mary Randall Dictated By: Maverick Whittington MD Dictated Date/Time: 02/10/24 2:20 pm Reviewed By: Maverick Whittington MD Signed By: Maverick Whittington MD Signed Date/Time: 02/10/24 2:20 pm Transcribed By: LENKA Transcribed Date/Time: 02/10/24 11:07 am * Exam Date Time Procedure Performing Provider Status 02/09/24 10:[address] Angio Head Stupak , Mike; Auth (Ve rified) Notes: (CT Angio Head) Reason For Exam: Headache(s) RESULT: CT Angio Head CT Angio Head, CT Angio Neck Hx of Present Illness: sent from [employer], here for the worst CARTWRIGHT of her life with some visual changes, has been going on for the last 22 days, had dialysis yesterday; Reason: Headache(s); Clinical Question(s): Other:; Hematoma Aneurysm; Order Comment: / Other: TECHNIQUE: CT angiogram of the head and neck was performed after bolus administration of intravenous contrast. 100 mL of Omnipaque 300 was administered intravenously. Coronal and sagittal MIP reformatted images were obtained. Additional 3-D images were created on a separate workstation under concurrent supervision by the attending radiologist. All stenoses are measured using NASCET criteria. Weight-based protocol using automatic tube modulation was used to optimize exposure parameters. RADIATION DOSE PARAMETERS: CTDIvol Body: 11.78 mGy, DLP Body: 801 mGy*cm. CTDIvol Head: 47.70 mGy, DLP Head: 773 mGy*cm. COMPARISON: Noncontrast CT head performed concurrently. FINDINGS: There is a 3 vessel arch which contains scattered mural calcifications. The supraaortic proximal great neck vessels appear normal in caliber and appearance. No hemodynamically significant stenosis. The right common carotid artery is normal in caliber. The right carotid bulb is patent. Mild mural calcifications are seen at the right proximal internal carotid artery. The right proximal ICA shows 0% stenosis by NASCET criteria. The left common carotid artery multiple mural calcifications without stenosis. The left carotid bulb has mild mural calcified and noncalcified atherosclerotic extending to the left proximal internal carotid artery. The left proximal ICA shows 0% stenosis by NASCET criteria. Right vertebral artery: Patent without stenosis. Left vertebral artery: Mural calcifications are seen origin causing a moderate stenosis. The rest is patent without stenosis. Cervical spine: Multilevel spondylosis. Prominent anterior osteophytes, more significant at C5-C6 level. Soft tissues and lung apices: The visualized upper lungs show multiple ill- defined groundglass densities, more on the left. The findings may represent acute infiltrate. Please correlate x-ray. Enlarged left thyroid lobe contains a 1.8 cm lobulated low-attenuation with heterogeneous enhancement. There is no definite abnormality throughout the soft tissue neck. [place]: Concurrent CT of head showed no acute pathology. Generalized volume loss and bilateral periventricular hypodensities are noted. Mucosal thickening in the right maxillary sinus. Bilateral internal carotid arteries at the skull base have multiple mural calcifications. No definite stenosis is seen. Bilateral posterior communicating arteries are visualized. No posterior communicating artery aneurysm is seen. Bilateral ACAs, MCAs and their branches are patent. No stenosis or vessel cut off is seen. No definite aneurysm is noted. Bilateral intracranial vertebral arteries show no definite stenosis. The vertebrobasilar junction is normal. The basilar artery is slightly tortuous. No stenosis or dissection is seen. There is no basilar tip aneurysm. Bilateral room service bellhop and their branches are patent. The superior sagittal sinuses, the straight sinus, bilateral transverse and sigmoid sinuses: Patentwithout dural sinus thrombosis. IMPRESSION: No cutoff or high-grade stenosis of the major branches of the intracranial arteries. No aneurysm, stenosis, or vascular malformations present. The right proximal internal carotid artery show no significant stenosis by NASCET criteria. The left proximal internal carotid artery show no significant stenosis by NASCET criteria. The right cervical vertebral artery shows no significant stenosis. The left vertebral artery has a focal moderate stenosis. The rest shows no significant stenosis. The visualized upper lungs show multiple ill-defined groundglass densities, more on the left. The findings may represent acute infiltrate. Please correlate x-ray. Enlarged left thyroid lobe contains a 1.8 cm lobulated low-attenuation with heterogeneous enhancement. Please correlate with thyroid ultrasound. REFERENCE: NASCET Criteria: The degree of internal carotid stenosis is based on NASCET Criteria: Normal: No stenosis Mild: Less than 50% stenosis Moderate: 50-69% stenosis Severe: 70-99% stenosis Total occlusion: No detectable patent lumen. The preliminary reports were given by the [facility]. WSN: [id number] Ordering Physician: Mary Randall Dictated By: Maverick Whittington MD Dictated Date/Time: 02/10/24 2:20 pm Reviewed By: Maverick Whittington MD Signed By: Maverick Whittington MD Signed Date/Time: 02/10/24 2:20 pm Transcribed By: LENKA Transcribed Date/Time: 02/10/24 11:07 am * Exam Date Time Procedure Performing Provider Status 02/09/24 10:[address] Head/Brain W/O Contrast Stupak , O leg; Auth (Verified) Notes: (CT Head/Brain W/O Contrast) Reason For Exam: Neuro deficit, acute, stroke suspected;Other: RESULT: CT Head/Brain W/O Contrast CT Head/Brain W/O Contrast INDICATION: Hx of Present Illness: sent from [employer], here for the worst CARTWRIGHT of her life with some visual changes, has been going on for the last 22 days, had dialysis yesterday; Reason: Other:; Neuro deficit, acute, stroke suspected; Clinical Question(s): Other:; Hematoma Infarction TECHNIQUE: Noncontrast head CT using axial technique and reconstructed in axial and coronal planes.Iterative reconstruction techniques are used to optimize dose and image quality. COMPARISON: None. FINDINGS: Janitorial Tech view findings, lines and tubes: None. BRAIN AND EXTRA-AXIAL SPACES: No parenchymal hemorrhage, midline shift, or mass effect. [place]-white matter differentiation is wellpreserved. No acute infarct. Negative insular ribbon and hyperdense vessel signs. Ventricles, sulci, and basilar cisterns are normal. Mild low-density white matter changes. No subarachnoid hemorrhage. No subdural or epidural collection. CALVARIUM, SKULL BASE, AND SOFT TISSUES: No fractures or suspicious bony lesions. The paranasal sinuses and mastoid air cells are clear. Visualized orbits and globes are intact. The extracranial soft tissues are unremarkable. IMPRESSION: No acute intracranial pathology. WSN: [id number] Ordering Physician: Mary Randall Dictated By: Levon Lyon MD Dictated Date/Time: 02/09/24 10:54 p Reviewed By: Levon Lyon MD Signed By: Levon Lyon MD Signed Date/Time: 02/09/24 10:54 pm Transcribed By: LENKA Transcribed Date/Time: 02/09/24 10:52 pm Vital Signs Most recent to oldest [Reference Range]: 1 2 3 Height 160 cm (02/09/24 4:50 PM) 160 cm (02/09/24 4:46 PM) Weight 97.7 kg (02/09/24 4:50 PM) 97.7 kg (02/09/24 4:46 PM) Oxygen Saturation [94-100 %] 97 % (02/10/24 1:07 AM) 98 % (02/09/24 4:46 PM) 99 % (02/09/24 4:41 PM) Pulse Rate [55-90 bpm] 61 bpm (02/10/24 1:07 AM) 54 bpm *L* (02/09/24 4:46 PM) 57 bpm (02/09/24 4:41 PM) Body Mass Index [18.5-24.99 kg/m2] 38.16 kg/m2 *>HHI* (02/09/24 4:46 PM) Blood Pressure [90-138/55-84 mm Hg] 156/51mm Hg *H* (02/10/24 1:07 AM) 156/42mm Hg *H* (02/09/24 4:46 PM) Respiratory Rate [16-30 br/min] 20 br/min (02/10/24 1:07 AM) 18 br/min (02/09/24 4:46 PM) 18 br/min (02/09/24 4:41 PM) Temperature [96.8-100.4 DegF] 97.4 DegF (02/10/24 1:07 AM) 98.3 DegF (02/09/24 4:46 PM) Mode of Delivery (Oxygen) Room air (02/10/24 1:07 AM) Room air (02/09/24 4:46 PM) Room air (02/09/24 4:41 PM) Blood pressure sites Arm, right (02/09/24 4:46 PM) Temperature Route Oral (02/10/24 1:07 AM) Oral (02/09/24 4:46 PM) Dry Weight 97.7 kg (02/09/24 4:50 PM) 97.7 kg (02/09/24 4:46 PM) Weight Obtained Via Patient/family state d (02/09/24 4:46 PM) Dry Weight Obtained Via Patient/family s tated (02/09/24 4:46 PM) Social History Social History Type Response Smoking Status Never (less than 100 in lifetime) entered on: 02/04/19 Sex Patient Care team information Care Team Personnel Name: Cheyenne No MD, Marcella Schroeder Position: [facility] Outreach Member Role: PCP Address: Address: [address] [place] [address] [address] [place] [id number]- Name: Nicky Santamaria Position: [facility] Outreach Member Role: Lifetime Consulting Physician Name: Surya Jain MD Position: [facility] Renal MD Member Role: Lifetime Consulting Physician Address: Address: [address] [place] [address] [address] [facility] [place] [address]- Name: Windy Elizalde RN Position: [facility] Outreach Member Role: Lifetime Consulting Physician Name: Jeffy Tineo MD Position: [facility] Renal MD Member Role: Lifetime Consulting Physician Address: Address: [address] [place] [address] [facility] [place] [address]- Care Team Related Persons Name: MARCELLA WALKER Name: JUSTYNA SIMON Address: home [address] [place] [id number]
--- OUTSIDE RECORDS SUMMARY | 2024-04-25 11:12 | XMS_ITS | Continuity of Care Document ---
Author Organization [facility] Address [address] [place] [id number]- Care Team Providers Care Human Resource Officer Name Role Phone Cheyenne No MD, Marcella Schroeder Primary Care Physici an [id number] Date(s): 02/23/24 - 04/02/[address] [address]- Attending Physician: Gavino Gibbons Admitting Physician: Gavino Gibbons Referring Physician: Gavino Gibbons Allergies, Adverse Reactions, Alerts No Known Allergies [...] enlargement, bilateral Confirmed 06/04/17 Active Single chamber [place] scientific Pacemaker Confirmed 04/11/16 Active Chronic diastolic [...] with comorbidity Confirmed Active [facility] Social History Social History Type Response Smoking Status Never (less than 100 in lifetime) entered on: 02/04/19 Sex Patient Care team information Care Team Personnel Name: Marcella Mason MD Position: [facility] Outreach Member Role: PCP Address: Address: [address] [place] [address] [address] [place] [id number] Name: Hina Nicky Position: [facility] Outreach Member Role: Lifetime Consulting Physician Name: Surya Jain MD Position: [facility] Renal MD Member Role: Lifetime Consulting Physician Address: Address: [address] [place] [address] [address] [facility] [place] [address]- Name: Windy Elizalde RN Position: [facility] Outreach Member Role: Lifetime Consulting Physician Name: Jeffy Tineo MD Position: [facility] Renal Member Role: Lifetime Consulting Physician Address: Address: [address] [place] [address] [address] [facility] [place], [place] [address] Care Team Related Persons Name: RAIZA CHAUDHRY Address: home [address] [place] [id number] Name: MARCELLA WALKER Name: JUSTYNA SIMON Address: home [address] [place] [id number]
--- NOTE | 2024-04-25 11:36 | PC.NURSE ---
Labs drawn and sent as ordered.
[2024-04-25 11:42] LABS: MANUAL DIFF FLAG NO
[2024-04-25 11:50] LABS: Basophils Percent Auto 0.4 % (0-2); Eosinophils Absolute Auto 0.4 X10*3/uL (0.0-0.4); Eosinophils Percent Auto 3.9 % (0-4); Hematocrit 27.5 % (37.0-47.0); Hemoglobin 9.4 g/dl (12.0-16.0); Imm Gran Abs Auto 0.09 X10*3/uL (0.00-0.03); Imm Gran Pct Auto 0.9 % (0.0-0.4); Lymphocytes Absolute Auto 0.8 X10*3/uL (1.2-4.9); Lymphocytes Percent Auto 8.4 % (20-40); Mean Corpuscular HGB Conc 34.2 g/dl (31.0-35.0); Mean Corpuscular Hemoglobin 33.2 pg (27.0-33.0); Mean Corpuscular Volume 97.2 fL (80.0-98.0); Mean Platelet Volume 12.7 fL (9.4-12.3); Monocytes Absolute Auto 0.5 X10*3/uL (0.1-1.2); Monocytes Percent Auto 5.2 % (2-11); Neutrophils Absolute Auto 7.7 x10*3/uL (2.0-8.3); Neutrophils Percent Auto 81.2 % (45-73); Platelet Count 143 X10*3/uL (160-400); Red Blood Count 2.83 X10*6/uL (4.20-5.50); Red Cell Distribution Width 15.2 % (11.0-16.0); White Blood Count 9.5 X10*3/uL (4.8-10.8)
[2024-04-25 12:02] LABS: Alanine Aminotransferase 25 U/L (0-31); Albumin Level 3.8 g/dL (3.5-5.0); Alkaline Phosphatase 99 U/L (39-117); Aspartate Amino Transferase 30 U/L (5-31); Blood Urea Nitrogen 81 mg/dL (9-16); Glucose Random 202 mg/dL (60-115); Total Protein 7.2 g/dL (6.5-8.0)
[2024-04-25 12:10] LABS: Anion Gap 20 (12-20)
[2024-04-25 12:18] LABS: Carbon Dioxide 21 mmol/L (22-29); Chloride 101 mmol/L (96-108); Creatinine Clr Calc Pharmacy 6.5; Estimated Glomerular Filt Rate 4; Potassium 6.6 mmol/L (3.3-5.1); Sodium 135 mmol/L (135-145)
[2024-04-25 12:31] VITALS: PULSE 66; RESP 19
[2024-04-25] MEDS: Albuterol Sulfate 7.5 MG, Albuterol Sulfate (0.083%) 2.5 MG 10 MG INHALE (12:31)
--- NOTE | 2024-04-25 12:50 | PC.NURSE ---
Pt.'s to bedside. He arrives in an N95 mask and is reporting to staff that he is currently flu positive. Dipika Johnson MD notified and MD verbally states that he will be ordering COVID/flu/RSV swab to test the pt.
[2024-04-25] MEDS: Calcium Gluconate/NaCl,Iso-Osm 1 GM/50 ML PLAST..BAG IV (12:54)
--- NOTE | 2024-04-25 13:00 | PC.NURSE ---
COVID/flu/RSV swab completed as ordered
--- NOTE | 2024-04-25 13:15 | PC.NURSE ---
Pt. reporting to that she has pain to LUE and fingers of left hand. Pt.'s is requesting an x-ray at this time. Dipika Johnson MD aware. states that he will order x-rays of the LUE and L hand.
[2024-04-25 13:40] LABS: Influenza A PCR NEGATIVE (Negative); Influenza B PCR NEGATIVE (Negative); Resp Syncy Virus RNA Qual PCR NEGATIVE (Negative); SARS COV2 PCR INHOUSE POSITIVE (Negative)
--- NOTE | 2024-04-25 13:50 | PC.NURSE ---
Addendum entered by Arabella Villeda 04/25/24 14:10: Addendum - note entered at wrong time. Note for 12:50 Original Note: Dipika Johnson MD to bedside to place an ultrasound-guided 20G peripheral IV to the pt.'s right forearm.
--- NOTE | 2024-04-25 14:00 | PC.NURSE ---
Pt. called for dialysis treatment. Pt. transport sent to [facility] for telemetry pack for continuous cardiac monitoring while pt. is receiving dialysis treatment.
[2024-04-25] MEDS: ondansetron HCL 4 MG/2 ML VIAL IVPUSH (14:18)
--- NOTE | 2024-04-25 16:35 | PHA.MEDREC ---
Addendum entered by Yokasta Poe RPh 04/25/24 16:46: Reviewed by [facility] Original Note: Pharmacy Consult ? Medication Reconciliation Pharmacy has completed the medication reconciliation. Spoke to patents HCP Prosper to confirm med list. Prosper was able to name off patients home meds and he states she get a bed box from [facility] pharmacy. HCP was able to confirm Toujeo SoloStar U-300 28 units and Insulin Lispro 100 units/ml 8-14 units TID. Utilized med box list to confirm med list. HCP stated patient last took her medications 04/24/24.
[2024-04-25 17:08] VITALS: BP 139/79; PULSE 71; RESP 17; TEMP 37.7; O2SAT 95
--- NOTE | 2024-04-25 17:38 | PC.NURSE ---
Spoke with pt.'s . States to this RN that he is upset that he went up to the nurses' station to ask for a cup of ice chips for his , and that three staff members were doing nothing . Apologized to and gave ice
--- NOTE | 2024-04-25 17:49 | PC.NURSE ---
Hospitalist Myesha Gomez MD to bedside at this time.
--- NOTE | 2024-04-25 18:01 | P.HPHOSP_ITS ---
History of Present Illness Date of Service: 04/25/24 Chief Complaint: Hyperkalemia, need of dialysis , fall A 59 years old lady with PMH of ESRD on HD DM2, AMARJIT on CPAP, A.flutter on eliquis, CAD, CHF among others who presents to the hospital after having a fall at home and found to have hyperkalemia. The patient fell while brushing her teeth at home, no syncope or loss of consciousness. denies any headache or neck pain. No chest pain, palpitations, SOB, nausea, vomiting, diarrhea or urinary symptoms. She has been feeling weak for the last few days as both her and her were diagnosed with Covid. In ED found to have hyperkalemia. will be admitted for urgeny dialysis. 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 Uncontrolled type 2 diabetes mellitus with hyperglycemia, with long-term current use of insulin Hidradenitis suppurativa Pneumonia Type 2 diabetes mellitus with hyperglycemia Paroxysmal atrial flutter Dysphonia Chronic cough Urinary frequency Dyspnea on exertion Unstable gait Asthma Chronic low back pain without sciatica Osteoarthritis of both knees Kidney stones Depression AMARJIT (obstructive sleep apnea) Normocytic anemia ESRD needing dialysis CHF (congestive heart failure) Obesity due to excess calories CAD (coronary artery disease) GERD (gastroesophageal reflux disease) Thyroid disease AV fistula HLD (hyperlipidemia) ESRD (end stage renal disease) T2DM (type 2 diabetes mellitus) End stage renal disease on dialysis Dialysis patient Renal failure (ARF), acute on chronic HTN (hypertension) Family History Father CVD (cardiovascular disease) Diabetes Mother Diabetes Sister Stomach cancer Surgical History History of kidney surgery Hx of cholecystectomy Hx of bone graft Social History Household Members: Family Housing: House Do you presently have visiting nurse or other home services: No Unable to assess alcohol history related to: Unknown Alcohol intake: never Patient Tobacco Use Status: Never used Tobacco Smoked in Last 30 Days: No Use of substances other than those prescribed or required for medical reasons: No Advance Directives: Yes Advance Directives on File: Yes Advance Directives Date on File: 02/15/21 Do you have a plan to hurt others: No Plan service: No Current occupational status: disabled Current occupation: right hand dominant Meds Allergies Allergy/AdvReac Type Severity Reaction Status Date / Time No Known Allergies Allergy Verified 04/25/24 10:59 Home Medications ?Medication ?Instructions ?Recorded ?Confirmed ?Last Taken ?Type gabapentin 100 mg capsule 100 mg PO BID neuropathic pain 02/12/21 04/25/24 04/24/24 History hydralazine 50 mg tablet 1 tab PO TID@0900,1200,1800 blood 02/12/21 04/25/24 04/24/24 History pressure melatonin 5 mg tablet 5 mg PO BEDTIME PRN Sleep 02/12/21 04/25/24 06/26/21 History atorvastatin 40 mg tablet 40 mg PO DAILY@1200 cholesterol 02/26/21 04/25/24 04/24/24 History sevelamer carbonate 800 mg tablet 800 mg PO TIDAC 02/26/21 04/25/24 04/24/24 History amlodipine 10 mg tablet 10 mg PO DAILY blood pressure 04/25/24 04/25/24 04/24/24 History aspirin 81 mg tablet,delayed 81 mg PO DAILY 04/25/24 04/25/24 04/24/24 History release brimonidine 0.2 % eye drops 1 drp ophthalmic-Left TID 04/25/24 04/25/24 04/24/24 History calcium polycarbophil 625 mg 625 mg PO DAILY 04/25/24 04/25/24 04/24/24 History tablet (Fiber-Lax) cholecalciferol (vitamin D3) 50 50 mcg PO DAILY 04/25/24 04/25/24 04/24/24 History mcg (2,000 unit) capsule (Vitamin D3) insulin glargine U-300 conc 300 28 unit subcut BEDTIME 04/25/24 04/25/24 04/24/24 History unit/mL (1.5 mL) subcutaneous pen ([employer] SoloStar U-300 Insulin) ketorolac 0.5 % eye drops 1 drp ophthalmic (eye) TID 04/25/24 04/25/24 04/24/24 History levocetirizine 5 mg tablet 5 mg PO BEDTIME 04/25/24 04/25/24 04/24/24 History levothyroxine 25 mcg tablet 25 mcg PO DAILY@0600 04/25/24 04/25/24 04/24/24 History lisinopril 30 mg tablet 30 mg PO SUTUTHSA@2100 04/25/24 04/25/24 04/24/24 History loratadine 10 mg tablet 10 mg PO DAILY 04/25/24 04/25/24 04/24/24 History metoprolol tartrate 50 mg tablet 50 mg PO BID 04/25/24 04/25/24 04/24/24 History omeprazole 20 mg capsule,delayed 20 mg PO DAILY@0630 04/25/24 04/25/24 04/24/24 History release Physical Exam 2 Vital Signs and Narrative: Vital Signs: Last Vital Signs Temp 99.9 F 04/25/24 17:08 Pulse 71 04/25/24 17:08 Resp 17 04/25/24 17:08 BP 139/79 04/25/24 17:08 Pulse Ox 95 04/25/24 17:08 O2 Del Method Room Air 04/25/24 17:08 BMI result Body Mass Index 37.1 Const: Other: Constitutional : Awake, interactive, not in distress Neck : Normal inspection, Supple Cardiovascular : RRR, no JVP, no lower extremity edema Respiratory : good bilateral air entry, no crackles, wheezes or rhonchi Gastrointestinal: soft, lax, Normal bowel sounds, Non tender Skin : Warm, Dry Neurological : Alert & oriented x3, No focal deficit Results Labs 04/25/24 11:35 04/25/24 11:35 Labs: Laboratory Results - last 24 hr 04/25/24 04/25/24 11:35 13:00 MCV 97.2 MCH 33.2 H MCHC 34.2 RDW 15.2 Plt Count 143 L D MPV 12.7 H Immature Gran % (Auto) 0.9 H Neut % (Auto) 81.2 H Lymph % (Auto) 8.4 L Cotton % (Auto) 5.2 Eos % (Auto) 3.9 Baso % (Auto) 0.4 Lymph # (Auto) 0.8 L Cotton # (Auto) 0.5 Eos # (Auto) 0.4 Baso # (Auto) 0.0 Abs Immat Gran (auto) 0.09 H Absolute Neuts (auto) 7.7 Absolute Nucleated RBC 0.000 Nucleated RBC % (auto) 0.0 Anion Gap 20 Estim Creat Clear Calc 6.5 Estimated GFR 4 Random Glucose 202 H Calcium 10.0 Total Bilirubin 1.0 AST 30 ALT 25 Alkaline Phosphatase 99 Troponin I High Sens 163.0 H* Total Protein 7.2 Albumin 3.8 Influenza Type A (PCR) NEGATIVE Influenza Type B (PCR) NEGATIVE RSV RNA Qual (PCR) NEGATIVE SARS-CoV-2 RNA (RT-PCR) POSITIVE A Imaging Radiologist's Impressions: Impressions Cervical Spine CT 04/25/24 11:04 IMPRESSION: 1. No evidence of acute intracranial hemorrhage or edematous territorial infarction. 2. No evidence of acute fracture or traumatic subluxation of the cervical spine. 3. Moderate underlying microangiopathy and generalized cerebral volume loss. 4. Moderate multilevel degenerative spondyloarthropathy of the cervical spine. Most notably on this limited exam without intrathecal contrast, there appears to be at least mild spinal canal stenoses from C3-C6. Electronically signed by: Tomi Lerma DO 04/25/2024 02:00 PM EST RP Head CT 04/25/24 11:56 IMPRESSION: 1. No evidence of acute intracranial hemorrhage or edematous territorial infarction. 2. No evidence of acute fracture or traumatic subluxation of the cervical spine. 3. Moderate underlying microangiopathy and generalized cerebral volume loss. 4. Moderate multilevel degenerative spondyloarthropathy of the cervical spine. Most notably on this limited exam without intrathecal contrast, there appears to be at least mild spinal canal stenoses from C3-C6. Electronically signed by: Tomi Lerma DO 04/25/2024 02:00 PM EST RP Pelvis CT 04/25/24 11:56 IMPRESSION: No acute fracture, bony pelvis. Atherosclerosis disease. Spondylosis, L4-5 and L5-S1. Electronically signed by: Mariano Delgado MD 04/25/2024 02:44 PM EST RP Chest X-Ray 04/25/24 15:20 IMPRESSION: Bronchial wall thickening may be infectious and/or inflammatory in etiology. Electronically signed by: Gloria Robbins MD 04/25/2024 04:42 PM [facility] Assessment and Plan (1) COVID-19: Status: Acute (2) Chronic kidney disease with end stage renal failure on dialysis: Status: Acute (3) Acute hyperkalemia: Status: Acute Plan A 59 years old lady with PMH of ESRD on HD DM2, AMARJIT on CPAP, A.flutter on eliquis, CAD, CHF among others who presents to the hospital after having a fall at home and found to have hyperkalemia. Acute hyperkalemia in ESRD on HD K of 6.6 recieved calcium gluconate and albuterol in ED [place] and low potassium diet Nephrology consult Urgent dialysis ordered to follow BMP Covid19 infection No hypoxia, supportive management Elevated Trop I no chest pain, no EKG changes to suggest ACS , chronically elevated follow EKG and Trop Keep on Tele Fall CT hip, neck and head negative for acute findings PT evaluation DMII, Lantus, SSI, diabetic diet A.Flutter, Eliquis and Metoprolol CAD, ASA, Statin HTN, Hydralazine, Amlodipine for now GERD, PPI DVT PPx Eliquis The patient will likely need 2 overnight hospital stay for urgent dialysis and close monitoring of potassium pending PT evaluaiton. Quality Stroke Does the patient have a stroke diagnosis?: No VTE Prior VTE?: No VTE Risk Level:: Medical - moderate - high VTE Device Contraindication: Treatment Not Indicated VTE Drug Contraindication: N/A - Med Ordered
[2024-04-25] MEDS: hydrALAZINE HCl 50 MG TABLET PO (18:51)
[2024-04-25] MEDS: Sodium Zirconium Cyclosilicate 10 GM POWD.PACK PO (18:52)
--- NOTE | 2024-04-25 21:16 | PM.CNNEP ---
History of Present Illness Reason for Consult Consult date: 04/25/24 Chief Complaint Chief complaint: need dialysis, hyperkalemia, fall History of Present Illness Narrative: ESRD mwf adm after falling epsiode and noted HyperK Gen eay fatigue. This epsoidioe of falling occured whil brushing teeth. 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 Uncontrolled type 2 diabetes mellitus with hyperglycemia, with long-term current use of insulin Hidradenitis suppurativa Pneumonia Type 2 diabetes mellitus with hyperglycemia Paroxysmal atrial flutter Dysphonia Chronic cough Urinary frequency Dyspnea on exertion Unstable gait Asthma Chronic low back pain without sciatica Osteoarthritis of both knees Kidney stones Depression AMARJIT (obstructive sleep apnea) Normocytic anemia ESRD needing dialysis CHF (congestive heart failure) Obesity due to excess calories CAD (coronary artery disease) GERD (gastroesophageal reflux disease) Thyroid disease AV fistula HLD (hyperlipidemia) ESRD (end stage renal disease) T2DM (type 2 diabetes mellitus) End stage renal disease on dialysis Dialysis patient Renal failure (ARF), acute on chronic HTN (hypertension) Family History Family History Father CVD (cardiovascular disease) Diabetes Mother Diabetes Sister Stomach cancer Surgical History Surgical History History of kidney surgery Hx of cholecystectomy Hx of bone graft Social History Social History Household Members: Family Housing: House Do you presently have visiting nurse or other home services: No Unable to assess alcohol history related to: Unknown Alcohol intake: never Patient Tobacco Use Status: Never used Tobacco Smoked in Last 30 Days: No Use of substances other than those prescribed or required for medical reasons: No Advance Directives: Yes Advance Directives on File: Yes Advance Directives Date on File: 02/15/21 Do you have a plan to hurt others: No Plan service: No Current occupational status: disabled Current occupation: right hand dominant Meds Allergies Allergy/AdvReac Type Severity Reaction Status Date / Time No Known Allergies Allergy Verified 04/25/24 10:59 Active Medications: Current Medications Acetaminophen (Acetaminophen 325 Mg Tablet) 650 mg PO Q6H PRN PRN Reason: Pain, Mild (Pain Scale 1-3), fever or headache Amlodipine Besylate (Amlodipine Besylate 10 Mg Tablet) 10 mg PO DAILY [facility]; Protocol Apixaban (Apixaban 5 Mg Tablet) 5 mg PO BID [facility] Aspirin (Aspirin Enteric Coated 81 Mg Tablet.) 81 mg PO DAILY [facility] Atorvastatin Calcium (Atorvastatin Calcium 40 Mg Tablet) 40 mg PO DAILY@1200 [facility] Brimonidine Tartrate (Brimonidine Tartrate 0.2% Oph 5 Ml Bottle) 1 drop EYE-LEFT TID [facility] Calcium Carbonate (Calcium Carbonate 750 Mg Tab.Chew) 750 mg PO Q4H PRN PRN Reason: Heartburn Gabapentin (Gabapentin 100 Mg Capsule) 100 mg PO BID [facility] Hydralazine HCl (Hydralazine Hcl 50 Mg Tablet) 50 mg PO TID@0900,1200,1800 [facility]; Protocol Last Admin: 04/25/24 18:51 Dose: 50 mg Insulin Glargine (Insulin Glargine,Hum.Rec.Anlog 100 Unit/Ml 10 Ml Vial) 20 unit SUBCUT BEDTIME [facility] Insulin Human Lispro (Insulin Lispro 100 Unit/Ml 3 Ml Vial) 0 unit SUBCUT QIDACHS [facility]; Protocol Ketorolac Tromethamine (Ketorolac Tromethamine 0.5% Op 5 Ml Drops) 1 drop EYE-BOTH TID [facility] Levothyroxine Sodium (Levothyroxine Sodium 25 Mcg Tablet) 25 mcg PO DAILY@0600 [facility] Magnesium Hydroxide (Milk Of Magnesia 30 Ml Oral.Susp) 30 ml PO DAILY PRN PRN Reason: Constipation Melatonin (Melatonin 3 Mg Tablet) 6 mg PO BEDTIME PRN PRN Reason: Insomnia Metoprolol Tartrate (Metoprolol Tartrate 50 Mg Tablet) 50 mg PO BID [facility]; Protocol Omeprazole (Omeprazole 20 Mg Capsule.) 20 mg PO DAILY@0630 [facility] Ondansetron HCl (Ondansetron Hcl 4 Mg/2 Ml Vial) 4 mg IVPUSH Q8H PRN PRN Reason: Nausea and Vomiting Sevelamer Carbonate (Sevelamer Carbonate Tablet 800 Mg Tablet) 800 mg PO TIDAC [facility] Sodium Chloride (0.9 % Sodium Chloride Flush 3 Ml Syringe) 3 ml IVFLUSH QSHIFT [facility] Vitamin D (Cholecalciferol (Vitamin D3) 25 Mcg Tablet) 50 mcg PO DAILY [facility] Home Medications ?Medication ?Instructions ?Recorded ?Confirmed ?Last Taken ?Type gabapentin 100 mg capsule 100 mg PO BID neuropathic pain 02/12/21 04/25/24 04/24/24 History hydralazine 50 mg tablet 1 tab PO TID@0900,1200,1800 blood 02/12/21 04/25/24 04/24/24 History pressure melatonin 5 mg tablet 5 mg PO BEDTIME PRN Sleep 02/12/21 04/25/24 06/26/21 History atorvastatin 40 mg tablet 40 mg PO DAILY@1200 cholesterol 02/26/21 04/25/24 04/24/24 History sevelamer carbonate 800 mg tablet 800 mg PO TIDAC 02/26/21 04/25/24 04/24/24 History amlodipine 10 mg tablet 10 mg PO DAILY blood pressure 04/25/24 04/25/24 04/24/24 History aspirin 81 mg tablet,delayed 81 mg PO DAILY 04/25/24 04/25/24 04/24/24 History release brimonidine 0.2 % eye drops 1 drp ophthalmic-Left TID 04/25/24 04/25/24 04/24/24 History calcium polycarbophil 625 mg 625 mg PO DAILY 04/25/24 04/25/24 04/24/24 History tablet (Fiber-Lax) cholecalciferol (vitamin D3) 50 50 mcg PO DAILY 04/25/24 04/25/24 04/24/24 History mcg (2,000 unit) capsule (Vitamin D3) insulin glargine U-300 conc 300 28 unit subcut BEDTIME 04/25/24 04/25/24 04/24/24 History unit/mL (1.5 mL) subcutaneous pen ([employer] SoloStar U-300 Insulin) ketorolac 0.5 % eye drops 1 drp ophthalmic (eye) TID 04/25/24 04/25/24 04/24/24 History levocetirizine 5 mg tablet 5 mg PO BEDTIME 04/25/24 04/25/24 04/24/24 History levothyroxine 25 mcg tablet 25 mcg PO DAILY@0600 04/25/24 04/25/24 04/24/24 History lisinopril 30 mg tablet 30 mg PO SUTUTHSA@2100 04/25/24 04/25/24 04/24/24 History loratadine 10 mg tablet 10 mg PO DAILY 04/25/24 04/25/24 04/24/24 History metoprolol tartrate 50 mg tablet 50 mg PO BID 04/25/24 04/25/24 04/24/24 History omeprazole 20 mg capsule,delayed 20 mg PO DAILY@0630 04/25/24 04/25/24 04/24/24 History release Physical Exam Vital Signs: Last Vital Signs Temp 99.9 F 04/25/24 17:08 Pulse 71 04/25/24 17:08 Resp 17 04/25/24 17:08 BP 139/79 04/25/24 17:08 Pulse Ox 95 04/25/24 17:08 O2 Del Method Room Air 04/25/24 17:08 BMI result Body Mass Index 37.1 Const Other: Constitutional : Awake, interactive, not in distress Neck : Normal inspection, Supple Cardiovascular : RRR, no JVP, no lower extremity edema Respiratory : good bilateral air entry, no crackles, wheezes or rhonchi Gastrointestinal: soft, lax, Normal bowel sounds, Non tender Skin : Warm, Dry Neurological : Alert & oriented x3, No focal deficit General: cooperative Nutritional Appearance: well nourished Orientation/consciousness: patient oriented x3 HEENT Head: Yes normal to inspection Throat: Yes posterior oropharynx normal Neck Neck: Yes normal visual inspection, Yes full ROM, Yes no lymphadenopathy and Yes no meningeal signs Chest Chest palpation & inspection: normal inspection of the chest Resp Effort & Inspection: normal respiratory effort Auscultation: clear to auscultation bilaterally Cardio Jugular venous distension: no JVD Rate: regular rate Rhythm: regular rhythm GI Inspection: Yes normal to inspection Skin General skin exam: no rashes or lesions noted and elasticity normal Lesions: no lesions Rashes: no rashes Wounds: no wounds Neuro General: patient oriented x3 and no meningeal signs Results Lab Results 04/25/24 11:35 04/25/24 11:35 Lab results: Chemistry 04/25/24 11:35 Sodium 135 Potassium 6.6 H* D Carbon Dioxide 21 L BUN 81 H Creatinine 10.31 H* Calcium 10.0 Hematology 04/25/24 11:35 WBC 9.5 Hgb 9.4 L Plt Count 143 L D Assessment and Plan (1) COVID-19: Status: Acute (2) Chronic kidney disease with end stage renal failure on dialysis: Status: Acute (3) Acute hyperkalemia: Status: Acute Plan A 59 years old lady with PMH of ESRD on HD DM2, AMARJIT on CPAP, A.flutter on eliquis, CAD, CHF among others who presents to the hospital after having a fall at home and found to have hyperkalemia. 1. ESRD: usu sHD mwf 2. HyoerK: HD on 1 k bath and watch for rebound hyperK 3. Falling epsidoe: w/u in prpgress I REC: HD this pM on 1 K bath and post HD K level and watch for rebound; lowK diet Procedures Date of Service Date of Service: 04/25/24
--- NOTE | 2024-04-25 22:29 | PC.NURSE ---
pt still in dialysis at this time.
[2024-04-25 23:40] LABS: Glucose, Whole Blood 160 mg/dL (60-115)
[2024-04-25 23:48] VITALS: BP 148/47; PULSE 72; RESP 15; TEMP 37.2; O2SAT 86
[2024-04-26] VITALS (16 sets, daily range): BP systolic 124–168; BP diastolic 42–68; PULSE 58–98; RESP 16–20; TEMP 36.2–38.1; O2SAT 80–100
--- NOTE | 2024-04-26 | ECG_ITS ---
Test Reason : HIGH TROP Blood Pressure : / mmHG Vent. Rate : 073 BPM Atrial Rate : 073 BPM P-R Int : 228 ms QRS Dur : 088 ms QT Int : 394 ms P-R-T Axes : 053 064 085 degrees QTc Int : 434 ms Sinus rhythm with 1st degree A-V block Nonspecific ST abnormality Abnormal ECG When compared with ECG of 25-APR-2024 11:10, No significant change was found Referred By: Maged Meek Electronically Signed By:Elías Maddox
[2024-04-26] MEDS: Insulin Glargine,Hum.rec.anlog 100 UNIT/ML 10 ML VIAL 20 UNIT SUBCUT ×2 (00:01→21:35)
[2024-04-26 01:57] LABS: Anion Gap 17 (12-20); Carbon Dioxide 27 mmol/L (22-29); Chloride 98 mmol/L (96-108); Potassium 4.2 mmol/L (3.3-5.1); Sodium 138 mmol/L (135-145)
[2024-04-26 02:24] LABS: Troponin-I High Sensitivity 696.1 ng/L (<3.5-17.0)
[2024-04-26 05:29] LABS: Anion Gap 16 (12-20); Blood Urea Nitrogen 35 mg/dL (9-16); Calcium 9.4 mg/dL (8.4-10.2); Carbon Dioxide 27 mmol/L (22-29); Chloride 99 mmol/L (96-108); Creatinine Clr Calc Pharmacy 11.4; Estimated Glomerular Filt Rate 7; Glucose Random 176 mg/dL (60-115); Potassium 4.5 mmol/L (3.3-5.1); Sodium 137 mmol/L (135-145)
[2024-04-26 07:32] LABS: Glucose, Whole Blood 159 mg/dL (60-115)
--- NOTE | 2024-04-26 07:33 | PC.NURSE ---
Pt was sleeping at RN arrival. Did wake and could answer questions in [place]. Was slow to respond. Able to take sips of water. Warm to touch. unlabored resp. LS CTA. a fib on monitor.
[2024-04-26] MEDS: Insulin Lispro 100 UNIT/ML 3 ML VIAL SUBCUT ×5 (07:44→21:35)
[2024-04-26] MEDS: Levothyroxine Sodium 25 MCG TABLET PO (07:44)
[2024-04-26] MEDS: Sevelamer Carbonate Tablet 800 MG TABLET PO ×3 (07:44→17:34)
[2024-04-26] MEDS: Omeprazole 20 MG CAPSULE.DR PO (07:44)
--- NOTE | 2024-04-26 07:47 | PC.NURSE ---
sitting up eating. needs physical reminder to not take too much in a bite. no diff with meds.
[2024-04-26] MEDS: Acetaminophen 325 MG TABLET 650 MG PO ×2 (08:47→21:34)
[2024-04-26] MEDS: Metoprolol Tartrate 50 MG TABLET PO ×2 (08:48→21:33)
[2024-04-26] MEDS: Gabapentin 100 MG CAPSULE PO ×2 (08:48→21:33)
[2024-04-26] MEDS: Cholecalciferol (Vitamin D3) 25 MCG TABLET 50 MCG PO (08:49)
[2024-04-26] MEDS: Apixaban 5 MG TABLET PO ×2 (08:50→21:33)
[2024-04-26] MEDS: hydrALAZINE HCl 50 MG TABLET PO ×3 (08:50→17:34)
[2024-04-26] MEDS: amLODIPine Besylate 10 MG TABLET PO (08:50)
[2024-04-26] MEDS: Aspirin Enteric Coated 81 MG TABLET.DR PO (08:51)
[2024-04-26] MEDS: Ketorolac Tromethamine 0.5% Op 5 ML DROPS 1 DROP EYE-BOTH ×3 (09:26→21:35)
[2024-04-26] MEDS: Brimonidine Tartrate 0.2% Oph 5 ML BOTTLE 1 DROP EYE-LEFT ×3 (09:26→21:35)
--- NOTE | 2024-04-26 10:29 | PC.NURSE ---
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 pt currently denying pain/discomfort, call mckinney within reach, will continue plan of care
[2024-04-26] MEDS: Atorvastatin Calcium 40 MG TABLET PO (11:55)
--- NOTE | 2024-04-26 11:58 | PC.NURSE ---
pt medicated per order, poc obtained will medicated with insulin when lunch trays arrive.
[2024-04-26 12:00] LABS: Glucose, Whole Blood 185 mg/dL (60-115)
--- NOTE | 2024-04-26 15:51 | HO.PM.IMPN ---
Subjective Subjective Date of Service: 04/26/24 Interval History: seen and evaluated denies chest pain or SOB sleepy, goes back to sleep upon talking but woke up for breakfast completely refusing CPAP no other events Review of Systems No fever, chills but has generalized weakness No chest pain, palpitation No shortness of breath or coughing No abdominal pain, nausea or vomiting No urinary symptoms No any rash or wounds Physical Exam Vital Signs: Vital Signs: Last Vital Signs Temp 99.0 F 04/26/24 11:53 Pulse 58 04/26/24 11:53 Resp 18 04/26/24 11:53 BP 124/46 L 04/26/24 11:55 Pulse Ox 100 04/26/24 11:53 O2 Del Method Nasal Cannula 04/26/24 11:53 O2 Flow Rate 2 04/26/24 09:23 BMI result Body Mass Index 37.1 Const: Other: Constitutional : Awake, interactive, not in distress Neck : Normal inspection, Supple Cardiovascular : RRR, no JVP, no lower extremity edema Respiratory : good bilateral air entry, no crackles, wheezes or rhonchi Gastrointestinal: soft, lax, Normal bowel sounds, Non tender Skin : Warm, Dry Neurological : Alert & oriented x3, No focal deficit Objective Data Active Medications Acetaminophen (Acetaminophen 325 Mg Tablet) 650 mg PO Q6H PRN PRN Reason: Pain, Mild (Pain Scale 1-3), fever or headache Last Admin: 04/26/24 08:47 Dose: 650 mg Documented By: JOE Amlodipine Besylate (Amlodipine Besylate 10 Mg Tablet) 10 mg PO DAILY [facility]; Protocol Last Admin: 04/26/24 08:50 Dose: 10 mg Documented By: JOE Apixaban (Apixaban 5 Mg Tablet) 5 mg PO BID [facility] Last Admin: 04/26/24 08:50 Dose: 5 mg Documented By: JOE Aspirin (Aspirin Enteric Coated 81 Mg Tablet.) 81 mg PO DAILY [facility] Last Admin: 04/26/24 08:51 Dose: 81 mg Documented By: JOE Atorvastatin Calcium (Atorvastatin Calcium 40 Mg Tablet) 40 mg PO DAILY@1200 [facility] Last Admin: 04/26/24 11:55 Dose: 40 mg Documented By: PEÑA Brimonidine Tartrate (Brimonidine Tartrate 0.2% Oph 5 Ml Bottle) 1 drop EYE-LEFT TID [facility] Last Admin: 04/26/24 09:26 Dose: 1 drop Documented By: JOE Calcium Carbonate (Calcium Carbonate 750 Mg Tab.Chew) 750 mg PO Q4H PRN PRN Reason: Heartburn Gabapentin (Gabapentin 100 Mg Capsule) 100 mg PO BID [facility] Last Admin: 04/26/24 08:48 Dose: 100 mg Documented By: JOE Hydralazine HCl (Hydralazine Hcl 50 Mg Tablet) 50 mg PO TID@0900,1200,1800 [facility]; Protocol Last Admin: 04/26/24 11:55 Dose: 50 mg Documented By: PEÑA Insulin Glargine (Insulin Glargine,Hum.Rec.Anlog 100 Unit/Ml 10 Ml Vial) 20 unit SUBCUT BEDTIME [facility] Last Admin: 04/26/24 00:01 Dose: 20 unit Documented By: NEELAM Insulin Human Lispro (Insulin Lispro 100 Unit/Ml 3 Ml Vial) 0 unit SUBCUT QIDACHS [facility]; Protocol Last Admin: 04/26/24 13:39 Dose: 2 unit Documented By: PEÑA Ketorolac Tromethamine (Ketorolac Tromethamine 0.5% Op 5 Ml Drops) 1 drop EYE-BOTH TID [facility] Last Admin: 04/26/24 09:26 Dose: 1 drop Documented By: JOE Levothyroxine Sodium (Levothyroxine Sodium 25 Mcg Tablet) 25 mcg PO DAILY@0600 [facility] Last Admin: 04/26/24 07:44 Dose: 25 mcg Documented By: JOE Magnesium Hydroxide (Milk Of Magnesia 30 Ml Oral.Susp) 30 ml PO DAILY PRN PRN Reason: Constipation Melatonin (Melatonin 3 Mg Tablet) 6 mg PO BEDTIME PRN PRN Reason: Insomnia Metoprolol Tartrate (Metoprolol Tartrate 50 Mg Tablet) 50 mg PO BID [facility]; Protocol Last Admin: 04/26/24 08:48 Dose: 50 mg Documented By: JOE Omeprazole (Omeprazole 20 Mg Capsule.Dr) 20 mg PO DAILY@0630 [facility] Last Admin: 04/26/24 07:44 Dose: 20 mg Documented By: JOE Ondansetron HCl (Ondansetron Hcl 4 Mg/2 Ml Vial) 4 mg IVPUSH Q8H PRN PRN Reason: Nausea and Vomiting Sevelamer Carbonate (Sevelamer Carbonate Tablet 800 Mg Tablet) 800 mg PO TIDAC [facility] Last Admin: 04/26/24 11:54 Dose: 800 mg Documented By: PEÑA Sodium Chloride (0.9 % Sodium Chloride Flush 3 Ml Syringe) 3 ml IVFLUSH QSHIFT [facility] Last Admin: 04/26/24 08:52 Dose: Not Given Documented By: JOE Non-Admin Reason: Patient Condition Contraindication Vitamin D (Cholecalciferol (Vitamin D3) 25 Mcg Tablet) 50 mcg PO DAILY [facility] Last Admin: 04/26/24 08:49 Dose: 50 mcg Documented By: JOE Labs 04/25/24 11:35 04/26/24 04:54 Labs: Laboratory Results - last 24 hr 04/25/24 04/26/24 04/26/24 23:33 01:37 04:54 Anion Gap 17 16 Estim Creat Clear Calc 11.4 Estimated GFR 7 POC Glucose 160 H Random Glucose 176 H Calcium 9.4 Troponin I High Sens 696.1 H* D 04/26/24 04/26/24 07:26 11:51 Anion Gap Estim Creat Clear Calc Estimated GFR POC Glucose 159 H 185 H Random Glucose Calcium Troponin I High Sens Assessment and Plan (1) COVID-19: Status: Acute (2) Chronic kidney disease with end stage renal failure on dialysis: Status: Acute (3) Acute hyperkalemia: Status: Acute Plan A 59 years old lady with PMH of ESRD on HD DM2, AMARJIT on CPAP, A.flutter on eliquis, CAD, CHF among others who presents to the hospital after having a fall at home and found to have hyperkalemia. Acute hyperkalemia in ESRD on HD K improved Lokelma and low potassium diet Nephrology consult, to do dialysis session to follow BMP Covid19 infection No hypoxia, supportive management Elevated Trop I no chest pain, no EKG changes to suggest ACS , chronically elevated Trop increased on late follow up to 600s, likely from the fall not due to NSTEMI Keep on Tele and repeat EKG as needed Fall CT hip, neck and head negative for acute findings PT evaluation rec SNF placement DMII, Lantus, SSI, diabetic diet A.Flutter, Eliquis and Metoprolol CAD, ASA, Statin HTN, Hydralazine, Amlodipine for now GERD, PPI DVT PPx Eliquis The patient will likely need 2 overnight hospital stay for urgent dialysis and close monitoring of potassium pending PT evaluaiton. Quality Stroke Does the patient have a stroke diagnosis?: No VTE Prior VTE?: No VTE Risk Level:: Medical - moderate - high VTE Device Contraindication: Treatment Not Indicated VTE Drug Contraindication: N/A - Med Ordered
[2024-04-26] MEDS: 0.9 % Sodium Chloride Flush 3 ML SYRINGE IVFLUSH ×2 (16:14→21:36)
--- NOTE | 2024-04-26 16:16 | PC.NURSE ---
pt a&ox3, properties supervisor intact, pt denies pain at this time, pt medicated per order, awaiting transport to floor
[2024-04-26 17:29] LABS: Glucose, Whole Blood 181 mg/dL (60-115)
[2024-04-26 20:42] LABS: Glucose, Whole Blood 197 mg/dL (60-115)
--- NOTE | 2024-04-26 21:54 | P.PNNP_ITS ---
Subjective Subjective Date of Service: 04/26/24 Interval history: Seen and examined, evnets noted Physical Exam 2 Vital Signs: Vital Signs: Last Vital Signs Temp 97.1 F 04/26/24 19:49 Pulse 98 04/26/24 21:33 Resp 19 04/26/24 19:49 BP 124/53 L 04/26/24 19:49 Pulse Ox 96 04/26/24 19:49 O2 Del Method Nasal Cannula 04/26/24 19:49 O2 Flow Rate 2 04/26/24 19:49 BMI result Body Mass Index 37.1 Const: Other: Constitutional : Awake, interactive, not in distress Neck : Normal inspection, Supple Cardiovascular : RRR, no JVP, no lower extremity edema Respiratory : good bilateral air entry, no crackles, wheezes or rhonchi Gastrointestinal: soft, lax, Normal bowel sounds, Non tender Skin : Warm, Dry Neurological : Alert & oriented x3, No focal deficit General: cooperative Nutritional Appearance: well nourished O rientation/consciousness: patient oriented x3 HEENT: Head: Yes normal to inspection Throat: Yes posterior oropharynx normal Neck: Neck: Yes normal visual inspection, Yes full ROM, Yes no lymphadenopathy and Yes no meningeal signs Chest: Chest palpation & inspection: normal inspection of the chest Resp: Effort & Inspection: normal respiratory effort Auscultation: clear to auscultation bilaterally Cardio: Jugular venous distension: no JVD Rate: regular rate Rhythm: r egular rhythm GI: Inspection: Yes normal to inspection Skin: General skin exam: no rashes or lesions noted and elasticity normal L esions: no lesions Rashes: no rashes Wounds: no wounds Neuro: General: patient oriented x3 and no meningeal signs Objective Data Labs 04/25/24 11:35 04/26/24 04:54 Labs: Laboratory Results - last 24 hr 04/25/24 04/26/24 04/26/24 23:33 01:37 04:54 Sodium 138 137 Potassium 4.2 D 4.5 Chloride 98 99 Carbon Dioxide 27 27 Anion Gap 17 16 BUN 35 H Creatinine 5.88 H* Estim Creat Clear Calc 11.4 Estimated GFR 7 POC Glucose 160 H Random Glucose 176 H Calcium 9.4 Troponin I High Sens 696.1 H* D 04/26/24 04/26/24 04/26/24 07:26 11:51 17:24 Sodium Potassium Chloride Carbon Dioxide Anion Gap BUN Creatinine Estim Creat Clear Calc Estimated GFR POC Glucose 159 H 185 H 181 H Random Glucose Calcium Troponin I High Sens 04/26/24 20:32 Sodium Potassium Chloride Carbon Dioxide Anion Gap BUN Creatinine Estim Creat Clear Calc Estimated GFR POC Glucose 197 H Random Glucose Calcium Troponin I High Sens Procedures Date of Service Date of Service: 04/26/24 Assessment & Plan Assessment and plan (1) COVID-19: Status: Acute (2) Chronic kidney disease with end stage renal failure on dialysis: Status: Acute (3) Acute hyperkalemia: Status: Acute Plan A 59 years old lady with PMH of ESRD on HD DM2, AMARJIT on CPAP, A.flutter on eliquis, CAD, CHF among others who presents to the hospital after having a fall at home and found to have hyperkalemia. 1. ESRD: usu sHD mwf 2. HyperK: responded otr HD 1 K bath 3. Falling epsidoe: w/u in prpgress REC: cont HD mwf; low K diet; d/c planning Time Spent With Patient Time: Total time managing care of this patient today ____ minutes. Progress Note: Quality Stroke Does the patient have a stroke diagnosis?: No
[2024-04-27] VITALS (12 sets, daily range): BP systolic 119–150; BP diastolic 47–67; PULSE 55–77; RESP 16–20; TEMP 36.4–37.1; O2SAT 94–100; BMI 38.7
[2024-04-27] MEDS: Omeprazole 20 MG CAPSULE.DR PO (06:23)
[2024-04-27] MEDS: Levothyroxine Sodium 25 MCG TABLET PO (06:23)
[2024-04-27 08:09] LABS: Glucose, Whole Blood 120 mg/dL (60-115)
[2024-04-27] MEDS: hydrALAZINE HCl 50 MG TABLET PO ×3 (09:40→16:57)
[2024-04-27] MEDS: Gabapentin 100 MG CAPSULE PO (09:40)
[2024-04-27] MEDS: 0.9 % Sodium Chloride Flush 3 ML SYRINGE IVFLUSH ×3 (09:40→21:02)
[2024-04-27] MEDS: Metoprolol Tartrate 50 MG TABLET PO ×2 (09:40→21:01)
[2024-04-27] MEDS: Cholecalciferol (Vitamin D3) 25 MCG TABLET 50 MCG PO (09:40)
[2024-04-27] MEDS: Apixaban 5 MG TABLET PO (09:40)
[2024-04-27] MEDS: amLODIPine Besylate 10 MG TABLET PO (09:40)
[2024-04-27] MEDS: Aspirin Enteric Coated 81 MG TABLET.DR PO (09:40)
[2024-04-27] MEDS: Sevelamer Carbonate Tablet 800 MG TABLET PO ×3 (09:41→16:57)
[2024-04-27] MEDS: Ketorolac Tromethamine 0.5% Op 5 ML DROPS 1 DROP EYE-BOTH ×3 (09:51→21:02)
[2024-04-27] MEDS: Brimonidine Tartrate 0.2% Oph 5 ML BOTTLE 1 DROP EYE-LEFT ×3 (09:51→21:02)
--- NOTE | 2024-04-27 11:25 | MHC.CM.PN ---
CM met with pt along with central office frame wirer. Pt. had difficulty staying awake. She said she lives with her , has SECURITY MONITOR services. She was able to confirm that her PCP is: Faith No, and that her Prosper is her HCP, this is on file. Pt. goes to [facility]. PT is rec STR, referrals out. CM to follow and assist with DC plan.
[2024-04-27 11:42] LABS: Glucose, Whole Blood 136 mg/dL (60-115)
[2024-04-27 12:02] LABS: Hematocrit 24.7 % (37.0-47.0); Hemoglobin 8.1 g/dl (12.0-16.0); Mean Corpuscular HGB Conc 32.8 g/dl (31.0-35.0); Mean Corpuscular Hemoglobin 32.5 pg (27.0-33.0); Mean Corpuscular Volume 99.2 fL (80.0-98.0); Mean Platelet Volume 12.8 fL (9.4-12.3); Platelet Count 115 X10*3/uL (160-400); Red Blood Count 2.49 X10*6/uL (4.20-5.50); Red Cell Distribution Width 14.9 % (11.0-16.0); White Blood Count 5.9 X10*3/uL (4.8-10.8)
--- NOTE | 2024-04-27 12:07 | P.PNIM_ITS ---
Subjective Subjective Date of Service: 04/27/24 Interval History: seen and evaluated denies chest pain or SOB sleepy, goes back to sleep upon talking Used CPAP overnight no other events Review of Systems Review of Systems: Yes all other systems are reviewed and are negative Physical Exam 2 Vital Signs: Vital Signs: Last Vital Signs Temp 98.7 F 04/27/24 11:52 Pulse 62 04/27/24 11:52 Resp 18 04/27/24 11:52 BP 141/60 H 04/27/24 11:52 Pulse Ox 94 04/27/24 11:52 O2 Del Method Nasal Cannula 04/27/24 11:52 O2 Flow Rate 1 04/27/24 11:52 BMI result Body Mass Index 37.1 Const: Other: Constitutional : Awake, interactive, not in distress Neck : Normal inspection, Supple Cardiovascular : RRR, no JVP, no lower extremity edema Respiratory : good bilateral air entry, no crackles, wheezes or rhonchi Gastrointestinal: soft, lax, Normal bowel sounds, Non tender Skin : Warm, Dry Neurological : Alert & oriented to self and place, No focal deficit Objective Data Active Medications Acetaminophen (Acetaminophen 325 Mg Tablet) 650 mg PO Q6H PRN PRN Reason: Pain, Mild (Pain Scale 1-3), fever or headache Last Admin: 04/26/24 21:34 Dose: 650 mg Documented By: SB Amlodipine Besylate (Amlodipine Besylate 10 Mg Tablet) 10 mg PO DAILY [facility]; Protocol Last Admin: 04/27/24 09:40 Dose: 10 mg Documented By: GILMA Apixaban (Apixaban 5 Mg Tablet) 5 mg PO BID [facility] Last Admin: 04/27/24 09:40 Dose: 5 mg Documented By: GILMA Aspirin (Aspirin Enteric Coated 81 Mg Tablet.) 81 mg PO DAILY [facility] Last Admin: 04/27/24 09:40 Dose: 81 mg Documented By: GILMA Atorvastatin Calcium (Atorvastatin Calcium 40 Mg Tablet) 40 mg PO DAILY@1200 [facility] Last Admin: 04/26/24 11:55 Dose: 40 mg Documented By: PEÑA Brimonidine Tartrate (Brimonidine Tartrate 0.2% Oph 5 Ml Bottle) 1 drop EYE- LEFT TID [facility] Last Admin: 04/27/24 09:51 Dose: 1 drop Documented By: GILMA Calcium Carbonate (Calcium Carbonate 750 Mg Tab.Chew) 750 mg PO Q4H PRN PRN Reason: Heartburn Gabapentin (Gabapentin 100 Mg Capsule) 100 mg PO BID [facility] Last Admin: 04/27/24 09:40 Dose: 100 mg Documented By: GILMA Hydralazine HCl (Hydralazine Hcl 50 Mg Tablet) 50 mg PO TID@0900,1200,1800 [facility]; Protocol Last Admin: 04/27/24 09:40 Dose: 50 mg Documented By: GILMA Insulin Glargine (Insulin Glargine,Hum.Rec.Anlog 100 Unit/Ml 10 Ml Vial) 20 unit SUBCUT BEDTIME [facility] Last Admin: 04/26/24 21:35 Dose: 20 unit Documented By: SB Insulin Human Lispro (Insulin Lispro 100 Unit/Ml 3 Ml Vial) 0 unit SUBCUT QIDACHS [facility]; Protocol Last Admin: 04/27/24 11:47 Dose: Not Given Documented By: GILMA Non-Admin Reason: No Insulin Coverage Ketorolac Tromethamine (Ketorolac Tromethamine 0.5% Op 5 Ml Drops) 1 drop EYE- BOTH TID [facility] Last Admin: 04/27/24 09:51 Dose: 1 drop Documented By: GILMA Levothyroxine Sodium (Levothyroxine Sodium 25 Mcg Tablet) 25 mcg PO DAILY@0600 [facility] Last Admin: 04/27/24 06:23 Dose: 25 mcg Documented By: SB Magnesium Hydroxide (Milk Of Magnesia 30 Ml Oral.Susp) 30 ml PO DAILY PRN PRN Reason: Constipation Melatonin (Melatonin 3 Mg Tablet) 6 mg PO BEDTIME PRN PRN Reason: Insomnia Metoprolol Tartrate (Metoprolol Tartrate 50 Mg Tablet) 50 mg PO BID [facility]; Protocol Last Admin: 04/27/24 09:40 Dose: 50 mg Documented By: GILMA Omeprazole (Omeprazole 20 Mg Capsule.) 20 mg PO DAILY@0630 [facility] Last Admin: 04/27/24 06:23 Dose: 20 mg Documented By: SB Ondansetron HCl (Ondansetron Hcl 4 Mg/2 Ml Vial) 4 mg IVPUSH Q8H PRN PRN Reason: Nausea and Vomiting Sevelamer Carbonate (Sevelamer Carbonate Tablet 800 Mg Tablet) 800 mg PO TIDAC [facility] Last Admin: 04/27/24 09:41 Dose: 800 mg Documented By: GILMA Sodium Chloride (0.9 % Sodium Chloride Flush 3 Ml Syringe) 3 ml IVFLUSH QSHIFT [facility] Last Admin: 04/27/24 09:40 Dose: 3 ml Documented By: GILMA Vitamin D (Cholecalciferol (Vitamin D3) 25 Mcg Tablet) 50 mcg PO DAILY [facility] Last Admin: 04/27/24 09:40 Dose: 50 mcg Documented By: GILMA Labs 04/27/24 11:46 04/26/24 04:54 Labs: Laboratory Results - last 24 hr 04/26/24 04/26/24 04/27/24 17:24 20:32 07:11 MCV MCH MCHC RDW Plt Count MPV Absolute Nucleated RBC Nucleated RBC % (auto) POC Glucose 181 H 197 H 120 H 04/27/24 04/27/24 11:20 11:46 MCV 99.2 H MCH 32.5 MCHC 32.8 RDW 14.9 Plt Count 115 L MPV 12.8 H Absolute Nucleated RBC 0.000 Nucleated RBC % (auto) 0.0 POC Glucose 136 H Assessment and Plan (1) Chronic kidney disease with end stage renal failure on dialysis: Status: Acute (2) Acute hyperkalemia: Status: Acute (3) Toxic metabolic encephalopathy: Status: Acute Plan A 59 years old lady with PMH of ESRD on HD DM2, AMARJIT on CPAP, A.flutter on eliquis, CAD, CHF among others who presents to the hospital after having a fall at home and found to have hyperkalemia. Acute hyperkalemia in ESRD on HD K improved after HD session Lokelma and low potassium diet Nephrology following, to do dialysis today to follow BMP Toxic metabolic encephalopathy, acute CT Head showing Moderate underlying microangiopathy and generalized cerebral volume loss. She wakes up upon vocal and physical stimuli but get back to sleep and difficult to arouse. check ABG Hold Gabapentin recurrent reorientation and increase physical activity as tolerated Covid19 infection No hypoxia, supportive management Elevated Trop I no chest pain, no EKG changes to suggest ACS , chronically elevated Trop increased on late follow up to 600s, likely from the fall not due to NSTEMI Keep on Tele and repeat EKG as needed Fall CT hip, neck and head negative for acute findings PT evaluation rec SNF placement DMII, Lantus, SSI, diabetic diet A.Flutter, Eliquis and Metoprolol CAD, ASA, Statin HTN, Hydralazine, Amlodipine for now GERD, PPI DVT PPx Eliquis The patient will likely need 2 overnight hospital stay for urgent dialysis and close monitoring of potassium pending PT evaluaiton. Quality Stroke Does the patient have a stroke diagnosis?: No VTE Prior VTE?: No VTE Risk Level:: Medical - moderate - high VTE Device Contraindication: Treatment Not Indicated VTE Drug Contraindication: N/A - Med Ordered
[2024-04-27 12:21] LABS: Anion Gap 19 (12-20); Blood Urea Nitrogen 72 mg/dL (9-16); Calcium 9.4 mg/dL (8.4-10.2); Carbon Dioxide 25 mmol/L (22-29); Chloride 100 mmol/L (96-108); Creatinine Clr Calc Pharmacy 7.8; Estimated Glomerular Filt Rate 5; Glucose Random 145 mg/dL (60-115); Potassium 5.5 mmol/L (3.3-5.1); Sodium 138 mmol/L (135-145)
[2024-04-27 12:28] LABS: ABG HCO3 29 mmol/L (22-26); ABG pCO2 43 mmHg (32-45); ABG pH 7.44 (7.35-7.45); ABG pO2 73 mmHg (83-108)
[2024-04-27 13:02] LABS: Troponin-I High Sensitivity 8935.2 ng/L (<3.5-17.0)
[2024-04-27] MEDS: Atorvastatin Calcium 40 MG TABLET PO (13:18)
--- NOTE | 2024-04-27 15:00 | CA_ITS ---
Transthoracic Echocardiogram Patient (Last, First, Middle): Sarah Dixon, Gender: Female Date of : 1965 Age: 59 Procedure Date: 04/27/2024 Procedure Type: Transthoracic Echocardiogram Location: [facility] [place] Height: 160.02 cm Weight: 94.8 kg BSA: 1.97 m2 Heart Rate: bpm BP: 141 / 60 mmHg Summer Clerk: SUMMER Referring MD: Delvis Gomez MD Symptoms: Elevated Trop I Study Quality: Technically Difficult, contrast ECG Rhythm: Sinus Conclusions: - Normal left ventricular size and systolic function. There is mildly increased left ventricular wall thickness. The visually estimated ejection fraction is between 55-60%. - E/E prime ratio is >15, consistent with elevated filling pressures. - Normal right ventricular cavity size. There is low normal right ventricular systolic function. Findings Procedure Information Contrast agent, definity, is being given per protocol without apparent complications. Left Ventricle Normal left ventricular size and systolic function. There is mildly increased left ventricular wall thickness. The visually estimated ejection fraction is between 55-60%. There is no evidence of regional wall motion abnormalities. Abnormal diastolic function is noted. Spectral Doppler is indicative of a pseudonormal filling pattern. E/E prime ratio is >15, consistent with elevated filling pressures. Right Ventricle Normal right ventricular cavity size. There is low normal right ventricular systolic function. Atria The left atrium is moderately dilated. The right atrium is likely dilated. Aortic Valve There is a normal trileaflet aortic valve. There is mild calcification of the aortic valve. There is no aortic valve stenosis. There is no aortic valve regurgitation. Mitral Valve The mitral valve appears normal. There is no mitral valve regurgitation. There is no mitral valve stenosis. Pulmonic Valve The pulmonic valve is likely normal. Tricuspid Valve Normal tricuspid valve structure. There is no tricuspid valve regurgitation. The right ventricular systolic pressure is 33 mmHg. Moderately elevated right atrial pressure. There is no evidence of pulmonary hypertension. Great Vessels All visible segments of the aorta are normal in size. Venous The inferior vena cava is dilated and collapses less than 50% with inspiration. Pericardium/Pleural There is no evidence of pericardial effusion. Prior Study Comparison Changes noted compared to prior study dated: 02/13/2021. Low normal RV function. No pericardial effusion. Measurements 2D Linear Measurements IVSd: 1.19 0.6-0.9/0.6-1.0 cm LVIDd: 4.64 3.9-5.3/4.2-5.9 cm LVIDd Index: 2.36 2.4-3.2/2.2-3.1 cm/m2 LVIDs: 3.18 2.0-3.6 cm LVPWd: 1.18 0.7-1.1 cm LA Diam: 4.30 2.7-3.8/3.0-4.0 cm LAIDs Index: 2.18 1.5-2.3 cm/m2 LV Mass: 254.36 67-162/88-224 g LV Mass Index: 129.12 43-95/49-115 g/m2 LVOT Diam: 2.00 3.0+(-)1.3 cm Mitral Valve MV Pk E: 1.03 MV PK A: 0.34 MV Decel Time: 151.00 E/A: 3.00 E'Lateral: 7.51 E'Medial: 4.90 E/E' Med: 21.00 E/E' Lat: 13.70 PHT: 44.00 MVA PHT: 5.00 Decel Douglas: 6.85 Aortic Valve AoV Pk Ash: 1.32 AoV Mn Ash: 1.00 AoV VTI: 0.34 AoV Pk Grad: 7.00 Aov Mn Grad: 4.00 [facility] Cont.VTI: 2.10 LVOT LVOT Pk Ash: 0.94 LVOT Mn Ash: 0.69 LVOT VTI: 0.23 LVOT Pk Grad: 4.00 LVOT Mn Grad: 2.00 LVOT Diam: 2.00 LVOT Area: 3.14 Diastolic Function MV Pk E: 1.03 MV Pk A: 0.34 E/A: 3.00 E'Medial: 4.90 E/E' Med: 21.00 E' Laterial: 7.51 E/E' Lat: 13.70 Right Ventricle TAPSE (mm): 23.30 TVS' Ash: 10.90 Tricuspid Valve TR Pk Ash: 2.11 TR Pk Grad: 18.00 RA Press: 15.00 RVSP: 33.00 Great Vessels Aorta Sinus of Valsalva: 2.70 2.0-3.[address] [place]: 1.97 1.7-3.4 cm Ao Asc: 3.00 2.1-3.4 cm Updated in Other Vendor System with Status of Final Elías Maddox MD electronically signed on 04/27/2024 7:04:39 PM with status of Final
[2024-04-27 16:47] LABS: Glucose, Whole Blood 198 mg/dL (60-115)
[2024-04-27] MEDS: Insulin Lispro 100 UNIT/ML 3 ML VIAL SUBCUT ×2 (16:56→21:01)
[2024-04-27 17:42] LABS: Troponin-I High Sensitivity 8393.2 ng/L (<3.5-17.0)
[2024-04-27 17:54] LABS: PTT Heparin Drip 32.3 SEC (53-77.9)
--- NOTE | 2024-04-27 17:56 | P.PNNP_ITS ---
Subjective Subjective Date of Service: 04/27/24 Interval history: seen and examined, evnts noted Physical Exam 2 Vital Signs: Vital Signs: Last Vital Signs Temp 98.2 F 04/27/24 16:00 Pulse 58 04/27/24 16:00 Resp 18 04/27/24 16:00 BP 130/60 04/27/24 16:57 Pulse Ox 100 04/27/24 16:13 O2 Del Method Nasal Cannula 04/27/24 16:13 O2 Flow Rate 1 04/27/24 16:13 BMI result Body Mass Index 38.7 Const: Other: Constitutional : Awake, interactive, not in distress Neck : Normal inspection, Supple Cardiovascular : RRR, no JVP, no lower extremity edema Respiratory : good bilateral air entry, no crackles, wheezes or rhonchi Gastrointestinal: soft, lax, Normal bowel sounds, Non tender Skin : Warm, Dry Neurological : Alert & oriented x3, No focal deficit General: cooperative Nutritional Appearance: well nourished O rientation/consciousness: patient oriented x3 HEENT: Head: Yes normal to inspection Throat: Yes posterior oropharynx normal Neck: Neck: Yes normal visual inspection, Yes full ROM, Yes no lymphadenopathy and Yes no meningeal signs Chest: Chest palpation & inspection: normal inspection of the chest Resp: Effort & Inspection: normal respiratory effort Auscultation: clear to auscultation bilaterally Cardio: Jugular venous distension: no JVD Rate: regular rate Rhythm: r egular rhythm GI: Inspection: Yes normal to inspection Skin: General skin exam: no rashes or lesions noted and elasticity normal L esions: no lesions Rashes: no rashes Wounds: no wounds Neuro: General: patient oriented x3 and no meningeal signs Objective Data Labs 04/27/24 11:46 04/27/24 11:46 Labs: Laboratory Results - last 24 hr 04/26/24 04/27/24 04/27/24 20:32 07:11 11:20 WBC RBC Hgb Hct MCV MCH MCHC RDW Plt Count MPV Absolute Nucleated RBC Nucleated RBC % (auto) Hold Purple Top aPTT Heparin Protocol O2 Saturation ABG pH at Pt Temp ABG pCO2 at Pt Temp ABG pO2 at Pt Temp ABG HCO3 ABG Base Excess (Actual) Sodium Potassium Chloride Carbon Dioxide Anion Gap BUN Creatinine Estim Creat Clear Calc Estimated GFR POC Glucose 197 H 120 H 136 H Random Glucose Calcium Troponin I High Sens Hold Red Top Hold Yellow Top 04/27/24 04/27/24 04/27/24 11:46 12:17 15:37 WBC 5.9 RBC 2.49 L Hgb 8.1 L Hct 24.7 L MCV 99.2 H MCH 32.5 MCHC 32.8 RDW 14.9 Plt Count 115 L MPV 12.8 H Absolute Nucleated RBC 0.000 Nucleated RBC % (auto) 0.0 Hold Purple Top SEE NOTE aPTT Heparin Protocol O2 Saturation 94.0 ABG pH at Pt Temp 7.44 ABG pCO2 at Pt Temp 43 ABG pO2 at Pt Temp 73 L ABG HCO3 29 H ABG Base Excess (Actual) 5.0 Sodium 138 Potassium 5.5 H D Chloride 100 Carbon Dioxide 25 Anion Gap 19 BUN 72 H Creatinine 8.55 H* Estim Creat Clear Calc 7.8 Estimated GFR 5 POC Glucose Random Glucose 145 H Calcium 9.4 Troponin I High Sens 8935.2 H* D 8393.2 H* Hold Red Top See Note Hold Yellow Top See Note 04/27/24 04/27/24 16:42 17:26 WBC RBC Hgb Hct MCV MCH MCHC RDW Plt Count MPV Absolute Nucleated RBC Nucleated RBC % (auto) Hold Purple Top aPTT Heparin Protocol 32.3 L O2 Saturation ABG pH at Pt Temp ABG pCO2 at Pt Temp ABG pO2 at Pt Temp ABG HCO3 ABG Base Excess (Actual) Sodium Potassium Chloride Carbon Dioxide Anion Gap BUN Creatinine Estim Creat Clear Calc Estimated GFR POC Glucose 198 H Random Glucose Calcium Troponin I High Sens Hold Red Top Hold Yellow Top Procedures Date of Service Date of Service: 04/27/24 Assessment & Plan Assessment and plan (1) COVID-19: Status: Acute (2) Chronic kidney disease with end stage renal failure on dialysis: Status: Acute (3) Acute hyperkalemia: Status: Acute Plan A 59 years old lady with PMH of ESRD on HD DM2, AMARJIT on CPAP, A.flutter on eliquis, CAD, CHF among others who presents to the hospital after having a fall at home and found to have hyperkalemia. 1. ESRD: usu HD mwf; scheduled for later today 2. HyperK: responded to HD; K 5.5 and HD today will control this 3. Falling epsidoe: w/u in progress 4. AMS with lethargy: med team eval for CO2 retention REC: cont HD mwf; low K diet; johana of lethargy by med team Time Spent With Patient Time: Total time managing care of this patient today ____ minutes. Progress Note: Quality Stroke Does the patient have a stroke diagnosis?: No
[2024-04-27] MEDS: Sodium Zirconium Cyclosilicate 10 GM POWD.PACK PO (18:15)
[2024-04-27 18:27] LABS: Troponin-I High Sensitivity 9157.6 ng/L (<3.5-17.0)
[2024-04-27 20:13] LABS: INTERNATIONAL NORM RATIO 1.5 (0.9-1.1); Prothrombin Time 17.1 SEC (10.9-12.4)
[2024-04-27] MEDS: Insulin Glargine,Hum.rec.anlog 100 UNIT/ML 10 ML VIAL 20 UNIT SUBCUT (21:02)
[2024-04-27 21:13] LABS: Glucose, Whole Blood 179 mg/dL (60-115)
[2024-04-28] VITALS (11 sets, daily range): BP systolic 116–143; BP diastolic 51–63; PULSE 53–79; RESP 15–20; TEMP 36–36.4; O2SAT 9–100; BMI 39.6
[2024-04-28] MEDS: iohexoL 350 MG/ML 100 ML INFUS..BTL 75 ML IV (00:43)
[2024-04-28 01:02] LABS: ABG Refer to POC result
[2024-04-28] MEDS: Heparin Sodium,Porcine/1/2NS 25,000 UNIT/250 ML IV.SOLN 14.2 UNIT IVCONT (01:06)
[2024-04-28] MEDS: Omeprazole 20 MG CAPSULE.DR PO (05:22)
[2024-04-28] MEDS: Levothyroxine Sodium 25 MCG TABLET PO (05:22)
[2024-04-28 07:40] LABS: MANUAL DIFF FLAG NO
[2024-04-28 07:56] LABS: INTERNATIONAL NORM RATIO 1.3 (0.9-1.1)
[2024-04-28 08:14] LABS: Basophils Percent Auto 0.6 % (0-2); Eosinophils Absolute Auto 0.4 X10*3/uL (0.0-0.4); Eosinophils Percent Auto 5.8 % (0-4); Hematocrit 24.2 % (37.0-47.0); Hemoglobin 7.8 g/dl (12.0-16.0); Imm Gran Abs Auto 0.05 X10*3/uL (0.00-0.03); Imm Gran Pct Auto 0.7 % (0.0-0.4); Lymphocytes Absolute Auto 1.5 X10*3/uL (1.2-4.9); Lymphocytes Percent Auto 22.2 % (20-40); Mean Corpuscular HGB Conc 32.2 g/dl (31.0-35.0); Mean Corpuscular Hemoglobin 32.5 pg (27.0-33.0); Mean Corpuscular Volume 100.8 fL (80.0-98.0); Monocytes Absolute Auto 0.5 X10*3/uL (0.1-1.2); Monocytes Percent Auto 7.6 % (2-11); Neutrophils Absolute Auto 4.2 x10*3/uL (2.0-8.3); Neutrophils Percent Auto 63.1 % (45-73); Platelet Count 129 X10*3/uL (160-400); White Blood Count 6.7 X10*3/uL (4.8-10.8)
[2024-04-28 08:19] LABS: Anion Gap 22 (12-20); Blood Urea Nitrogen 89 mg/dL (9-16); Calcium 9.1 mg/dL (8.4-10.2); Carbon Dioxide 23 mmol/L (22-29); Chloride 96 mmol/L (96-108); Creatinine Clr Calc Pharmacy 6.6; Estimated Glomerular Filt Rate 4; Glucose Random 157 mg/dL (60-115); Potassium 5.8 mmol/L (3.3-5.1); Sodium 135 mmol/L (135-145)
[2024-04-28 08:35] LABS: Glucose, Whole Blood 165 mg/dL (60-115)
[2024-04-28] MEDS: Sevelamer Carbonate Tablet 800 MG TABLET PO ×2 (09:26→12:53)
[2024-04-28] MEDS: Insulin Lispro 100 UNIT/ML 3 ML VIAL SUBCUT ×3 (09:26→22:29)
[2024-04-28] MEDS: Heparin Sodium,Porcine 5,000 UNIT/ML VIAL 4000 UNIT IVPUSH (09:27)
[2024-04-28] MEDS: Ketorolac Tromethamine 0.5% Op 5 ML DROPS 1 DROP EYE-BOTH ×2 (09:36→20:34)
[2024-04-28] MEDS: Cholecalciferol (Vitamin D3) 25 MCG TABLET 50 MCG PO (09:36)
[2024-04-28] MEDS: hydrALAZINE HCl 50 MG TABLET PO ×3 (09:36→20:33)
[2024-04-28] MEDS: Brimonidine Tartrate 0.2% Oph 5 ML BOTTLE 1 DROP EYE-LEFT ×2 (09:36→20:34)
[2024-04-28] MEDS: Aspirin Enteric Coated 81 MG TABLET.DR PO (09:37)
[2024-04-28] MEDS: Metoprolol Tartrate 50 MG TABLET PO (09:37)
[2024-04-28] MEDS: 0.9 % Sodium Chloride Flush 3 ML SYRINGE IVFLUSH ×2 (09:40→20:33)
[2024-04-28] MEDS: amLODIPine Besylate 10 MG TABLET PO (09:40)
--- NOTE | 2024-04-28 10:31 | P.CONCA_ITS ---
History of Present Illness History of Present Illness Date of Service: 04/28/24 Requesting physician: Delvis Gomez Chief complaint: Fall, NSTEMI Narrative: 59-year-old female with known history of end-stage renal disease on hemodialysis, type 2 diabetes, atrial flutter in the past on chronic anticoagulation and history of congestive heart failure presenting with fall. She said she was brushing her teeth yesterday and passed out. No prodrome or any symptoms before and she woke up later in the ambulance. Denying chest pain or shortness of breath. No preceding chest discomfort shortness of breath. She was found to have COVID-19 infection. She said her was sick and all the family caught it from him. Her initial troponin was 163 but repeat troponin was 696, 8935, 8393 and 9157. She has no symptoms. She was also hyperkalemic on admission and received hemodialysis. She had ECHO performed yesterday which showed normal LVEF of 55-60% visually out any wall motion abnormalities. Normal right ventricular cavity size with low normal right ventricular systolic function. She had CTA which did not show any pulmonary embolism. [facility] Past Medical History 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 Uncontrolled type 2 diabetes mellitus with hyperglycemia, with long-term current use of insulin Hidradenitis suppurativa Pneumonia Type 2 diabetes mellitus with hyperglycemia Paroxysmal atrial flutter Dysphonia Chronic cough Urinary frequency Dyspnea on exertion Unstable gait Asthma Chronic low back pain without sciatica Osteoarthritis of both knees Kidney stones Depression AMARJIT (obstructive sleep apnea) Normocytic anemia ESRD needing dialysis CHF (congestive heart failure) Obesity due to excess calories CAD (coronary artery disease) GERD (gastroesophageal reflux disease) Thyroid disease AV fistula HLD (hyperlipidemia) ESRD (end stage renal disease) T2DM (type 2 diabetes mellitus) End stage renal disease on dialysis Dialysis patient Renal failure (ARF), acute on chronic HTN (hypertension) Family History Family History Father CVD (cardiovascular disease) Diabetes Mother Diabetes Sister Stomach cancer Surgical History Surgical History History of kidney surgery Hx of cholecystectomy Hx of bone graft Social History Social History Household Members: Spouse Household Members Other:: , brother, uncles Housing: House Do you presently have visiting nurse or other home services: Yes Unable to assess alcohol history related to: Unknown Alcohol intake: never Patient Tobacco Use Status: Never used Tobacco Advance Directives Date on File: 02/15/21 service: No Current occupational status: disabled Current occupation: right hand dominant Meds Allergies Allergy/AdvReac Type Severity Reaction Status Date / Time No Known Allergies Allergy Verified 04/25/24 10:59 Active Medications: Current Medications Acetaminophen (Acetaminophen 325 Mg Tablet) 650 mg PO Q6H PRN PRN Reason: Pain, Mild (Pain Scale 1-3), fever or headache Last Admin: 04/26/24 21:34 Dose: 650 mg Amlodipine Besylate (Amlodipine Besylate 10 Mg Tablet) 10 mg PO DAILY [facility]; Protocol Last Admin: 04/28/24 09:40 Dose: 10 mg Aspirin (Aspirin Enteric Coated 81 Mg Tablet.) 81 mg PO DAILY [facility] Last Admin: 04/28/24 09:37 Dose: 81 mg Atorvastatin Calcium (Atorvastatin Calcium 40 Mg Tablet) 40 mg PO DAILY@1200 [facility] Last Admin: 04/27/24 13:18 Dose: 40 mg Brimonidine Tartrate (Brimonidine Tartrate 0.2% Oph 5 Ml Bottle) 1 drop EYE- LEFT TID [facility] Last Admin: 04/28/24 09:36 Dose: 1 drop Calcium Carbonate (Calcium Carbonate 750 Mg Tab.Chew) 750 mg PO Q4H PRN PRN Reason: Heartburn Gabapentin (Gabapentin 100 Mg Capsule) 100 mg PO BID [facility] Last Admin: 04/27/24 09:40 Dose: 100 mg Heparin Sodium (Porcine) (Heparin Sodium,Porcine 5,000 Unit/Ml Vial) 4,000 unit 40 unit/kg (4000 unit) IVPUSH PROTOCOL BOLUS PRN; Protocol PRN Reason: 40 unit/kg - Heparin Protocol Last Admin: 04/28/24 09:27 Dose: 4,000 unit Heparin Sodium (Porcine) (Heparin Sodium,Porcine 5,000 Unit/Ml Vial) 7,900 unit 80 unit/kg (7900 unit) IVPUSH PROTOCOL BOLUS PRN; Protocol PRN Reason: 80 unit/kg - Heparin Protocol Hydralazine HCl (Hydralazine Hcl 50 Mg Tablet) 50 mg PO TID@0900,1200,1800 [facility]; Protocol Last Admin: 04/28/24 09:36 Dose: 50 mg Heparin Sodium/Sodium Chloride (Heparin Sodium,Porcine/1/2ns) 25,000 unit in 250 mls @ 0 mls/hr IVCONT .Q0M [facility]; Protocol Last Titration: 04/28/24 09:31 Dose: 16 units/kg/hr, 16.22 mls/hr Insulin Glargine (Insulin Glargine,Hum.Rec.Anlog 100 Unit/Ml 10 Ml Vial) 20 unit SUBCUT BEDTIME [facility] Last Admin: 04/27/24 21:02 Dose: 20 unit Insulin Human Lispro (Insulin Lispro 100 Unit/Ml 3 Ml Vial) 0 unit SUBCUT QIDACHS [facility]; Protocol Last Admin: 04/28/24 09:26 Dose: 2 unit Ketorolac Tromethamine (Ketorolac Tromethamine 0.5% Op 5 Ml Drops) 1 drop EYE- BOTH TID [facility] Last Admin: 04/28/24 09:36 Dose: 1 drop Levothyroxine Sodium (Levothyroxine Sodium 25 Mcg Tablet) 25 mcg PO DAILY@0600 [facility] Last Admin: 04/28/24 05:22 Dose: 25 mcg Magnesium Hydroxide (Milk Of Magnesia 30 Ml Oral.Susp) 30 ml PO DAILY PRN PRN Reason: Constipation Melatonin (Melatonin 3 Mg Tablet) 6 mg PO BEDTIME PRN PRN Reason: Insomnia Metoprolol Tartrate (Metoprolol Tartrate 50 Mg Tablet) 50 mg PO BID [facility]; Protocol Last Admin: 04/28/24 09:37 Dose: 50 mg Omeprazole (Omeprazole 20 Mg Capsule.Dr) 20 mg PO DAILY@0630 [facility] Last Admin: 04/28/24 05:22 Dose: 20 mg Ondansetron HCl (Ondansetron Hcl 4 Mg/2 Ml Vial) 4 mg IVPUSH Q8H PRN PRN Reason: Nausea and Vomiting Sevelamer Carbonate (Sevelamer Carbonate Tablet 800 Mg Tablet) 800 mg PO TIDAC [facility] Last Admin: 04/28/24 09:26 Dose: 800 mg Sodium Chloride (0.9 % Sodium Chloride Flush 3 Ml Syringe) [facility] Last Admin: 04/28/24 09:40 Dose: 3 ml Vitamin D (Cholecalciferol (Vitamin D3) 25 Mcg Tablet) 50 mcg PO DAILY [facility] Last Admin: 04/28/24 09:36 Dose: 50 mcg Home Medications ?Medication ?Instructions ?Recorded ?Confirmed ?Last Taken ?Type gabapentin 100 mg capsule 100 mg PO BID neuropathic pain 02/12/21 04/25/24 04/24/24 History hydralazine 50 mg tablet 1 tab PO TID@0900,1200,1800 blood 02/12/21 04/25/24 04/24/24 History pressure melatonin 5 mg tablet 5 mg PO BEDTIME PRN Sleep 02/12/21 04/25/24 06/26/21 History atorvastatin 40 mg tablet 40 mg PO DAILY@1200 cholesterol 02/26/21 04/25/24 04/24/24 History sevelamer carbonate 800 mg tablet 800 mg PO TIDAC 02/26/21 04/25/24 04/24/24 History amlodipine 10 mg tablet 10 mg PO DAILY blood pressure 04/25/24 04/25/24 04/24/24 History aspirin 81 mg tablet,delayed 81 mg PO DAILY 04/25/24 04/25/24 04/24/24 History release brimonidine 0.2 % eye drops 1 drp ophthalmic-Left TID 04/25/24 04/25/24 04/24/24 History calcium polycarbophil 625 mg 625 mg PO DAILY 04/25/24 04/25/24 04/24/24 History tablet (Fiber-Lax) cholecalciferol (vitamin D3) 50 50 mcg PO DAILY 04/25/24 04/25/24 04/24/24 History mcg (2,000 unit) capsule (Vitamin D3) insulin glargine U-300 conc 300 28 unit subcut BEDTIME 04/25/24 04/25/24 04/24/24 History unit/mL (1.5 mL) subcutaneous pen (Toujeo SoloStar U-300 Insulin) ketorolac 0.5 % eye drops 1 drp ophthalmic (eye) TID 04/25/24 04/25/24 04/24/24 History levocetirizine 5 mg tablet 5 mg PO BEDTIME 04/25/24 04/25/24 04/24/24 History levothyroxine 25 mcg tablet 25 mcg PO DAILY@0600 12/07/1804/25/24 04/24/24 History lisinopril 30 mg tablet 30 mg PO SUTUTHSA@2100 04/25/24 04/25/24 04/24/24 History loratadine 10 mg tablet 10 mg PO DAILY 04/25/24 04/25/24 04/24/24 History metoprolol tartrate 50 mg tablet 50 mg PO BID 04/25/24 04/25/24 04/24/24 History omeprazole 20 mg capsule,delayed 20 mg PO DAILY@0630 04/25/24 04/25/24 04/24/24 History release Physical Exam 2 Vital Signs: Vital Signs: Last Vital Signs Temp 97.5 F 04/28/24 08:00 Pulse 70 04/28/24 09:37 Resp 17 04/28/24 08:00 BP 132/60 04/28/24 09:37 Pulse Ox 94 04/28/24 08:00 O2 Del Method CPAP 04/28/24 08:00 O2 Flow Rate 2 04/28/24 08:00 BMI result Body Mass Index 39.6 GENERAL APPEARANCE: in no acute distress, pleasant. NECK: no carotid bruit, no jugular venous distention. SKIN: no suspicious lesions, warm and dry. HEART: no murmurs, regular rate and rhythm. LUNGS: clear to auscultation bilaterally. ABDOMEN: soft, nontender. EXTREMITIES: no edema. PERIPHERAL PULSES: equal. NEUROLOGIC: No gross deficits, AAO X 3 Objective Labs and Meds 04/28/24 07:26 04/28/24 07:26 Lab results: Laboratory Results - last 24 hr 04/27/24 04/27/24 04/27/24 11:20 11:46 12:17 WBC 5.9 RBC 2.49 L Hgb 8.1 L Hct 24.7 L MCV 99.2 H MCH 32.5 MCHC 32.8 RDW 14.9 Plt Count 115 L MPV 12.8 H Immature Gran % (Auto) Neut % (Auto) Lymph % (Auto) [place] % (Auto) Eos % (Auto) Baso % (Auto) Lymph # (Auto) [place] # (Auto) Eos # (Auto) Baso # (Auto) Abs Immat Gran (auto) Absolute Neuts (auto) Absolute Nucleated RBC 0.000 Nucleated RBC % (auto) 0.0 Hold Purple Top PT INR aPTT Heparin Protocol O2 Saturation 94.0 ABG pH at Pt Temp 7.44 ABG pCO2 at Pt Temp 43 ABG pO2 at Pt Temp 73 L ABG HCO3 29 H ABG Base Excess (Actual) 5.0 Sodium 138 Potassium 5.5 H D Chloride 100 Carbon Dioxide 25 Anion Gap 19 BUN 72 H Creatinine 8.55 H* Estim Creat Clear Calc 7.8 Estimated GFR 5 POC Glucose 136 H Random Glucose 145 H Calcium 9.4 Troponin I High Sens 8935.2 H* D Hold Red Top Hold Yellow Top 04/27/24 04/27/24 04/27/24 15:37 16:42 17:26 WBC RBC Hgb Hct MCV MCH MCHC RDW Plt Count MPV Immature Gran % (Auto) Neut % (Auto) Lymph % (Auto) [place] % (Auto) Eos % (Auto) Baso % (Auto) Lymph # (Auto) [place] # (Auto) Eos # (Auto) Baso # (Auto) Abs Immat Gran (auto) Absolute Neuts (auto) Absolute Nucleated RBC Nucleated RBC % (auto) Hold Purple Top SEE NOTE PT INR aPTT Heparin Protocol 32.3 L O2 Saturation ABG pH at Pt Temp ABG pCO2 at Pt Temp ABG pO2 at Pt Temp ABG HCO3 ABG Base Excess (Actual) Sodium Potassium Chloride Carbon Dioxide Anion Gap BUN Creatinine Estim Creat Clear Calc Estimated GFR POC Glucose 198 H Random Glucose Calcium Troponin I High Sens 8393.2 H* 9157.6 H* Hold Red Top See Note Hold Yellow Top See Note 04/27/24 04/27/24 04/28/24 20:00 20:58 07:26 WBC 6.7 RBC 2.40 L Hgb 7.8 L Hct 24.2 L MCV 100.8 H MCH 32.5 MCHC 32.2 RDW 15.0 Plt Count 129 L MPV 13.0 H Immature Gran % (Auto) 0.7 H Neut % (Auto) 63.1 Lymph % (Auto) 22.2 [place] % (Auto) 7.6 Eos % (Auto) 5.8 H Baso % (Auto) 0.6 Lymph # (Auto) 1.5 [place] # (Auto) 0.5 Eos # (Auto) 0.4 Baso # (Auto) 0.0 Abs Immat Gran (auto) 0.05 H Absolute Neuts (auto) 4.2 Absolute Nucleated RBC 0.000 Nucleated RBC % (auto) 0.0 Hold Purple Top PT 17.1 H Cancelled INR 1.5 H aPTT Heparin Protocol O2 Saturation ABG pH at Pt Temp ABG pCO2 at Pt Temp ABG pO2 at Pt Temp ABG HCO3 ABG Base Excess (Actual) Sodium Potassium Chloride Carbon Dioxide Anion Gap BUN Creatinine Estim Creat Clear Calc Estimated GFR POC Glucose 179 H Random Glucose Calcium Troponin I High Sens Hold Red Top Hold Yellow Top 04/28/24 04/28/24 04/28/24 07:26 07:26 08:26 WBC RBC Hgb Hct MCV MCH MCHC RDW Plt Count MPV Immature Gran % (Auto) Neut % (Auto) Lymph % (Auto) [place] % (Auto) Eos % (Auto) Baso % (Auto) Lymph # (Auto) [place] # (Auto) Eos # (Auto) Baso # (Auto) Abs Immat Gran (auto) Absolute Neuts (auto) Absolute Nucleated RBC Nucleated RBC % (auto) Hold Purple Top PT 15.0 H INR Cancelled 1.3 H aPTT Heparin Protocol 52.0 L D O2 Saturation ABG pH at Pt Temp ABG pCO2 at Pt Temp ABG pO2 at Pt Temp ABG HCO3 ABG Base Excess (Actual) Sodium 135 Potassium 5.8 H Chloride 96 Carbon Dioxide 23 Anion Gap 22 H BUN 89 H Creatinine 10.44 H* Estim Creat Clear Calc 6.6 Estimated GFR 4 POC Glucose 165 H Random Glucose 157 H Calcium 9.1 Troponin I High Sens Hold Red Top Hold Yellow Top Imaging Radiologist's impression: Impressions Chest CTA 04/28/24 00:32 IMPRESSION: No acute pulmonary artery emboli. No aneurysm or dissection, thoracic aorta. Consider pulmonary edema versus multifocal pneumonia. Bilateral small volume pleural effusions. Cardiomegaly. Fleischner guidelines were followed. Electronically signed by: Mariano Delgado MD 04/28/2024 09:12 AM [facility] [place], [place] Assessment and Plan (1) NSTEMI (non-ST elevated myocardial infarction): Status: Acute (2) COVID-19: Status: Acute (3) Syncope: Qualifiers: Syncope type: unspecified Qualified Code(s): R55 - Syncope and collapse Status: Acute Plan 59-year-old female presenting with syncope and elevated troponin levels. No pulmonary embolism is noted on the CT scan but there is question about multifocal pneumonia versus pulmonary edema. Clinically she is not acting like heart failure currently and is COVID-19 positive and is coughing. It is possible that she has multifocal infiltrates due to COVID-19. In the same setting her troponin levels are elevated. ECG does not have any dynamic changes. She does not have any wall motion abnormalities on echocardiogram. Blood pressure heart rates are also stable currently. Etiology of her syncope is unclear but could be related COVID-19 and infection. Obviously arrhythmia can not be ruled out and we will monitor on telemetry and potentially we will arrange a cardiac event monitor for her as outpatient 2. Plan will be to treat her conservatively for 48 hours with heparin and then transition back to Eliquis. She is anemic and may need to monitor her hemoglobin closely. Blood pressure is currently well controlled. We will plan a diagnostic angiogram for her as outpatient as she recovers from COVID-19. Thank you for allowing me to participate in the care of your patient. Please feel free to contact me if you have any questions. Procedures Date of Service Date of Service: 04/28/24
[2024-04-28 11:44] LABS: Glucose, Whole Blood 222 mg/dL (60-115)
--- NOTE | 2024-04-28 11:46 | P.PNIM_ITS ---
Subjective Subjective Date of Service: 04/28/24 Interval History: seen and evaluated More alert and interactive today Episode of Hypoxia while off CPAP no other events Review of Systems Review of Systems: Yes all other systems are reviewed and are negative Physical Exam 2 Vital Signs: Vital Signs: Last Vital Signs Temp 97.5 F 04/28/24 08:00 Pulse 70 04/28/24 09:37 Resp 17 04/28/24 08:00 BP 132/60 04/28/24 09:37 Pulse Ox 94 04/28/24 08:00 O2 Del Method CPAP 04/28/24 08:00 O2 Flow Rate 2 04/28/24 08:00 BMI result Body Mass Index 39.6 Const: Other: Constitutional : Awake, interactive, not in distress Neck : Normal inspection, Supple Cardiovascular : RRR, no JVP, no lower extremity edema Respiratory : good bilateral air entry, no crackles, wheezes or rhonchi Gastrointestinal: soft, lax, Normal bowel sounds, Non tender Skin : Warm, Dry Neurological : Alert & oriented to self and place, No focal deficit Objective Data Active Medications Acetaminophen (Acetaminophen 325 Mg Tablet) 650 mg PO Q6H PRN PRN Reason: Pain, Mild (Pain Scale 1-3), fever or headache Last Admin: 04/26/24 21:34 Dose: 650 mg Documented By: SB Amlodipine Besylate (Amlodipine Besylate 10 Mg Tablet) 10 mg PO DAILY [facility]; Protocol Last Admin: 04/28/24 09:40 Dose: 10 mg Documented By: MARYAM Aspirin (Aspirin Enteric Coated 81 Mg Tablet.) 81 mg PO DAILY [facility] Last Admin: 04/28/24 09:37 Dose: 81 mg Documented By: MARYAM Atorvastatin Calcium (Atorvastatin Calcium 40 Mg Tablet) 40 mg PO DAILY@1200 [facility] Last Admin: 04/27/24 13:18 Dose: 40 mg Documented By: GILMA Brimonidine Tartrate (Brimonidine Tartrate 0.2% Oph 5 Ml Bottle) 1 drop EYE- LEFT TID [facility] Last Admin: 04/28/24 09:36 Dose: 1 drop Documented By: MARYAM Calcium Carbonate (Calcium Carbonate 750 Mg Tab.Chew) 750 mg PO Q4H PRN PRN Reason: Heartburn Gabapentin (Gabapentin 100 Mg Capsule) 100 mg PO BID [facility] Last Admin: 04/27/24 09:40 Dose: 100 mg Documented By: GILMA Heparin Sodium (Porcine) (Heparin Sodium,Porcine 5,000 Unit/Ml Vial) 4,000 unit 40 unit/kg (4000 unit) IVPUSH PROTOCOL BOLUS PRN; Protocol PRN Reason: 40 unit/kg - Heparin Protocol Last Admin: 04/28/24 09:27 Dose: 4,000 unit Documented By: MARYAM Heparin Sodium (Porcine) (Heparin Sodium,Porcine 5,000 Unit/Ml Vial) 7,900 unit 80 unit/kg (7900 unit) IVPUSH PROTOCOL BOLUS PRN; Protocol PRN Reason: 80 unit/kg - Heparin Protocol Hydralazine HCl (Hydralazine Hcl 50 Mg Tablet) 50 mg PO TID@0900,1200,1800 [facility]; Protocol Last Admin: 04/28/24 09:36 Dose: 50 mg Documented By: MARYAM Heparin Sodium/Sodium Chloride (Heparin Sodium,Porcine/1/2ns) 25,000 unit in 250 mls @ 0 mls/hr IVCONT .Q0M [facility]; Protocol Last Titration: 04/28/24 09:31 Dose: 16 units/kg/hr, 16.22 mls/hr Documented By: MARYAM Co-signed By: GALO Insulin Glargine (Insulin Glargine,Hum.Rec.Anlog 100 Unit/Ml 10 Ml Vial) 20 unit SUBCUT BEDTIME [facility] Last Admin: 04/27/24 21:02 Dose: 20 unit Documented By: BREANN Insulin Human Lispro (Insulin Lispro 100 Unit/Ml 3 Ml Vial) 0 unit SUBCUT QIDACHS [facility]; Protocol Last Admin: 04/28/24 09:26 Dose: 2 unit Documented By: MARYAM Ketorolac Tromethamine (Ketorolac Tromethamine 0.5% Op 5 Ml Drops) 1 drop EYE- BOTH TID [facility] Last Admin: 04/28/24 09:36 Dose: 1 drop Documented By: MARYAM Levothyroxine Sodium (Levothyroxine Sodium 25 Mcg Tablet) 25 mcg PO DAILY@0600 [facility] Last Admin: 04/28/24 05:22 Dose: 25 mcg Documented By: BREANN Magnesium Hydroxide (Milk Of Magnesia 30 Ml Oral.Susp) 30 ml PO DAILY PRN PRN Reason: Constipation Melatonin (Melatonin 3 Mg Tablet) 6 mg PO BEDTIME PRN PRN Reason: Insomnia Metoprolol Tartrate (Metoprolol Tartrate 50 Mg Tablet) 50 mg PO BID [facility]; Protocol Last Admin: 04/28/24 09:37 Dose: 50 mg Documented By: MARYAM Omeprazole (Omeprazole 20 Mg Capsule.Dr) 20 mg PO DAILY@0630 [facility] Last Admin: 04/28/24 05:22 Dose: 20 mg Documented By: BREANN Ondansetron HCl (Ondansetron Hcl 4 Mg/2 Ml Vial) 4 mg IVPUSH Q8H PRN PRN Reason: Nausea and Vomiting Sevelamer Carbonate (Sevelamer Carbonate Tablet 800 Mg Tablet) 800 mg PO TIDAC [facility] Last Admin: 04/28/24 09:26 Dose: 800 mg Documented By: MARYAM Sodium Chloride (0.9 % Sodium Chloride Flush 3 Ml Syringe) 3 ml IVFLUSH QSHIFT [facility] Last Admin: 04/28/24 09:40 Dose: 3 ml Documented By: MARYAM Vitamin D (Cholecalciferol (Vitamin D3) 25 Mcg Tablet) 50 mcg PO DAILY [facility] Last Admin: 04/28/24 09:36 Dose: 50 mcg Documented By: MARYAM Labs 04/28/24 07:26 04/28/24 07:26 Labs: Laboratory Results - last 24 hr 04/27/24 04/27/24 04/27/24 11:46 12:17 15:37 MCV 99.2 H MCH 32.5 MCHC 32.8 RDW 14.9 Plt Count 115 L MPV 12.8 H Immature Gran % (Auto) Neut % (Auto) Lymph % (Auto) [place] % (Auto) Eos % (Auto) Baso % (Auto) Lymph # (Auto) [place] # (Auto) Eos # (Auto) Baso # (Auto) Abs Immat Gran (auto) Absolute Neuts (auto) Absolute Nucleated RBC 0.000 Nucleated RBC % (auto) 0.0 Hold Purple Top SEE NOTE PT INR aPTT Heparin Protocol O2 Saturation 94.0 ABG pH at Pt Temp 7.44 ABG pCO2 at Pt Temp 43 ABG pO2 at Pt Temp 73 L ABG HCO3 29 H ABG Base Excess (Actual) 5.0 Anion Gap 19 Estim Creat Clear Calc 7.8 Estimated GFR 5 POC Glucose Random Glucose 145 H Calcium 9.4 Troponin I High Sens 8935.2 H* D 8393.2 H* Hold Red Top See Note Hold Yellow Top See Note 04/27/24 04/27/24 04/27/24 16:42 17:26 20:00 MCV MCH MCHC RDW Plt Count MPV Immature Gran % (Auto) Neut % (Auto) Lymph % (Auto) [place] % (Auto) Eos % (Auto) Baso % (Auto) Lymph # (Auto) [place] # (Auto) Eos # (Auto) Baso # (Auto) Abs Immat Gran (auto) Absolute Neuts (auto) Absolute Nucleated RBC Nucleated RBC % (auto) Hold Purple Top PT 17.1 H INR 1.5 H aPTT Heparin Protocol 32.3 L O2 Saturation ABG pH at Pt Temp ABG pCO2 at Pt Temp ABG pO2 at Pt Temp ABG HCO3 ABG Base Excess (Actual) Anion Gap Estim Creat Clear Calc Estimated GFR POC Glucose 198 H Random Glucose Calcium Troponin I High Sens 9157.6 H* Hold Red Top Hold Yellow Top 04/27/24 04/28/24 04/28/24 20:58 07:26 07:26 MCV 100.8 H MCH 32.5 MCHC 32.2 RDW 15.0 Plt Count 129 L MPV 13.0 H Immature Gran % (Auto) 0.7 H Neut % (Auto) 63.1 Lymph % (Auto) 22.2 [place] % (Auto) 7.6 Eos % (Auto) 5.8 H Baso % (Auto) 0.6 Lymph # (Auto) 1.5 [place] # (Auto) 0.5 Eos # (Auto) 0.4 Baso # (Auto) 0.0 Abs Immat Gran (auto) 0.05 H Absolute Neuts (auto) 4.2 Absolute Nucleated RBC 0.000 Nucleated RBC % (auto) 0.0 Hold Purple Top PT Cancelled 15.0 H INR Cancelled aPTT Heparin Protocol O2 Saturation ABG pH at Pt Temp ABG pCO2 at Pt Temp ABG pO2 at Pt Temp ABG HCO3 ABG Base Excess (Actual) Anion Gap Estim Creat Clear Calc Estimated GFR POC Glucose 179 H Random Glucose Calcium Troponin I High Sens Hold Red Top Hold Yellow Top 04/28/24 04/28/24 04/28/24 07:26 08:26 10:56 MCV MCH MCHC RDW Plt Count MPV Immature Gran % (Auto) Neut % (Auto) Lymph % (Auto) [place] % (Auto) Eos % (Auto) Baso % (Auto) Lymph # (Auto) [place] # (Auto) Eos # (Auto) Baso # (Auto) Abs Immat Gran (auto) Absolute Neuts (auto) Absolute Nucleated RBC Nucleated RBC % (auto) Hold Purple Top PT INR 1.3 H aPTT Heparin Protocol 52.0 L D O2 Saturation ABG pH at Pt Temp ABG pCO2 at Pt Temp ABG pO2 at Pt Temp ABG HCO3 ABG Base Excess (Actual) Anion Gap 22 H Estim Creat Clear Calc 6.6 Estimated GFR 4 POC Glucose 165 H 222 H Random Glucose 157 H Calcium 9.1 Troponin I High Sens Hold Red Top Hold Yellow Top Assessment and Plan (1) NSTEMI (non-ST elevated myocardial infarction): Status: Acute (2) Toxic metabolic encephalopathy: Status: Acute (3) COVID-19: Status: Acute (4) Chronic kidney disease with end stage renal failure on dialysis: Status: Acute (5) Acute hyperkalemia: Status: Acute (6) Syncope: Status: Acute Plan A 59 years old lady with PMH of ESRD on HD DM2, AMARJIT on CPAP, A.flutter on eliquis, CAD, CHF among others who presents to the hospital after having a fall at home and found to have hyperkalemia. NSTEMI CTA negative for PE no chest pain, no EKG changes to suggest ACS , chronically elevated ECHO with no WMA , normal EF Trop of 9000 but stable in that range Cardiologyi nput appreciated, finish 48 hours of IV heparin then medical management, Outpatient angiogram unless acute change while inpatient Continue ASA , Statin Acute hyperkalemia in ESRD on HD K improved after HD session Lokelma and low potassium diet Nephrology following to follow BMP Toxic metabolic encephalopathy, acute More alert this morning CT Head showing Moderate underlying microangiopathy and generalized cerebral volume loss. no CO2 retention on ABG Hold Gabapentin recurrent reorientation and increase physical activity as tolerated Covid19 infection No hypoxia, supportive management Hypoxia multifactroial; poor compliance, fluid overload CTa showing changes likely representing fluid overload, no clear bacterial infection Hold on Abx as no clear signs of infection wean O2 down as tolerated Fall CT hip, neck and head negative for acute findings PT evaluation rec SNF placement DMII, Lantus, SSI, diabetic diet A.Flutter, Eliquis and Metoprolol CAD, ASA, Statin HTN, Hydralazine, Amlodipine for now GERD, PPI DVT PPx Heparin drip The patient will likely need overnight hospital stay for urgent dialysis and Heparin drip for NSTEMI with close monitoring of telemetry, fluid status and electrolytes Quality Stroke Does the patient have a stroke diagnosis?: No VTE Prior VTE?: No VTE Risk Level:: Medical - moderate - high VTE Device Contraindication: Treatment Not Indicated VTE Drug Contraindication: N/A - Med Ordered
[2024-04-28] MEDS: Atorvastatin Calcium 40 MG TABLET PO (12:53)
[2024-04-28] MEDS: Heparin Sodium,Porcine/1/2NS 25,000 UNIT/250 ML IV.SOLN 16.22 UNIT IVCONT (15:33)
[2024-04-28 16:19] LABS: PTT Heparin Drip 106.5 SEC (53-77.9)
[2024-04-28 21:44] LABS: Glucose, Whole Blood 222 mg/dL (60-115)
[2024-04-28] MEDS: Insulin Glargine,Hum.rec.anlog 100 UNIT/ML 10 ML VIAL 20 UNIT SUBCUT (22:29)
[2024-04-29] VITALS (7 sets, daily range): BP systolic 98–145; BP diastolic 44–59; PULSE 51–60; RESP 16–20; TEMP 36.1–36.9; O2SAT 100
--- NOTE | 2024-04-29 | ECG_ITS ---
Test Reason : routine nstemi Blood Pressure : / mmHG Vent. Rate : 059 BPM Atrial Rate : 059 BPM P-R Int : 254 ms QRS Dur : 098 ms QT Int : 460 ms P-R-T Axes : 008 055 069 degrees QTc Int : 455 ms Sinus bradycardia with 1st degree A-V block Subtle ST depressions I and aVL Poor R wave progression Abnormal ECG When compared with ECG of 26-APR-2024 02:29, No significant change was found Referred By: Elías Maddox Electronically Signed By:Elías Maddox
[2024-04-29 01:10] LABS: PTT Heparin Drip 50.9 SEC (53-77.9)
[2024-04-29] MEDS: Heparin Sodium,Porcine 5,000 UNIT/ML VIAL 4100 UNIT IVPUSH ×2 (01:47→23:04)
[2024-04-29] MEDS: Heparin Sodium,Porcine/1/2NS 25,000 UNIT/250 ML IV.SOLN 15.21 UNIT IVCONT (01:56)
[2024-04-29] MEDS: Omeprazole 20 MG CAPSULE.DR PO (05:19)
[2024-04-29] MEDS: Levothyroxine Sodium 25 MCG TABLET PO (05:19)
[2024-04-29 07:53] LABS: Glucose, Whole Blood 159 mg/dL (60-115)
[2024-04-29 08:00] LABS: MANUAL DIFF FLAG NO
[2024-04-29 08:04] LABS: Basophils Percent Auto 0.6 % (0-2); Eosinophils Absolute Auto 0.4 X10*3/uL (0.0-0.4); Eosinophils Percent Auto 7.8 % (0-4); Hematocrit 22.8 % (37.0-47.0); Imm Gran Abs Auto 0.03 X10*3/uL (0.00-0.03); Imm Gran Pct Auto 0.6 % (0.0-0.4); Lymphocytes Absolute Auto 1.2 X10*3/uL (1.2-4.9); Lymphocytes Percent Auto 23.9 % (20-40); Mean Corpuscular HGB Conc 35.1 g/dl (31.0-35.0); Mean Corpuscular Hemoglobin 33.2 pg (27.0-33.0); Mean Corpuscular Volume 94.6 fL (80.0-98.0); Mean Platelet Volume 12.9 fL (9.4-12.3); Monocytes Absolute Auto 0.2 X10*3/uL (0.1-1.2); Monocytes Percent Auto 4.5 % (2-11); Neutrophils Absolute Auto 3.1 x10*3/uL (2.0-8.3); Neutrophils Percent Auto 62.6 % (45-73); Platelet Count 118 X10*3/uL (160-400); Red Blood Count 2.41 X10*6/uL (4.20-5.50); Red Cell Distribution Width 14.5 % (11.0-16.0); White Blood Count 4.9 X10*3/uL (4.8-10.8)
[2024-04-29 08:08] LABS: PTT Heparin Drip 81.6 SEC (53-77.9)
[2024-04-29 08:14] LABS: Blood Urea Nitrogen 39 mg/dL (9-16); Calcium 8.8 mg/dL (8.4-10.2); Creatinine Clr Calc Pharmacy 13.1; Estimated Glomerular Filt Rate 8; Glucose Random 146 mg/dL (60-115)
[2024-04-29] MEDS: Insulin Lispro 100 UNIT/ML 3 ML VIAL SUBCUT ×4 (08:23→21:16)
[2024-04-29 08:30] LABS: Anion Gap 16 (12-20); Carbon Dioxide 22 mmol/L (22-29); Chloride 98 mmol/L (96-108); Potassium 3.7 mmol/L (3.3-5.1); Sodium 132 mmol/L (135-145)
[2024-04-29] MEDS: Heparin Sodium,Porcine/1/2NS 25,000 UNIT/250 ML IV.SOLN 13.18 UNIT IVCONT (09:02)
[2024-04-29 09:23] LABS: C Reactive Protein 6.44 mg/dL (< or = 0.50)
[2024-04-29 09:43] LABS: Procalcitonin 0.61 ng/mL
[2024-04-29] MEDS: Aspirin Enteric Coated 81 MG TABLET.DR PO (12:25)
[2024-04-29] MEDS: hydrALAZINE HCl 50 MG TABLET PO (12:25)
[2024-04-29] MEDS: Atorvastatin Calcium 40 MG TABLET PO (12:25)
[2024-04-29] MEDS: amLODIPine Besylate 10 MG TABLET PO (12:25)
[2024-04-29] MEDS: Cholecalciferol (Vitamin D3) 25 MCG TABLET 50 MCG PO (12:25)
[2024-04-29] MEDS: Sevelamer Carbonate Tablet 800 MG TABLET PO ×2 (12:25→17:35)
[2024-04-29] MEDS: Metoprolol Tartrate 50 MG TABLET PO (12:25)
[2024-04-29] MEDS: Brimonidine Tartrate 0.2% Oph 5 ML BOTTLE 1 DROP EYE-LEFT ×3 (12:29→23:13)
[2024-04-29] MEDS: Ketorolac Tromethamine 0.5% Op 5 ML DROPS 1 DROP EYE-BOTH ×3 (12:29→23:13)
--- NOTE | 2024-04-29 12:39 | MHC.CM.PN ---
CM met with pt. to ask her preferences for [facility], she said she will not go to STR, and that she goes not outpt. rehab at [facility]. CM to follow for DC needs.
[2024-04-29 12:53] LABS: Glucose, Whole Blood 173 mg/dL (60-115)
--- NOTE | 2024-04-29 14:22 | P.PNIM_ITS ---
Subjective Subjective Date of Service: 04/29/24 Interval History: This history was taken in [place] from the patient. Seen in HD. Denies chest pain Coughing but dyspnea improved Review of Systems Review of Systems: Yes all other systems are reviewed and are negative Physical Exam 2 Vital Signs: Vital Signs: Last Vital Signs Temp 98.5 F 04/29/24 12:00 Pulse 60 04/29/24 12:00 Resp 18 04/29/24 12:00 BP 112/44 L 04/29/24 12:00 Pulse Ox 100 04/29/24 12:00 O2 Del Method Nasal Cannula 04/29/24 12:00 O2 Flow Rate 1 04/29/24 12:00 BMI result Body Mass Index 39.6 Gen: in no acute distress HEENT: sclera anicteric, moist mucus membranes Neck: supple Lungs: diminished throughout Heart: regular rate and rhythm, no murmurs Abd: soft, non-tender, non-distended Ext: no edema Skin: warm/well-perfused Neuro: alert and oriented x3, no focal findings Psych: appropriate affect Objective Data Active Medications Acetaminophen (Acetaminophen 325 Mg Tablet) 650 mg PO Q6H PRN PRN Reason: Pain, Mild (Pain Scale 1-3), fever or headache Last Admin: 04/26/24 21:34 Dose: 650 mg Documented By: SB Amlodipine Besylate (Amlodipine Besylate 10 Mg Tablet) 10 mg PO DAILY [facility]; Protocol Last Admin: 04/29/24 12:25 Dose: 10 mg Documented By: GRETCHEN Aspirin (Aspirin Enteric Coated 81 Mg Tablet.Dr) 81 mg PO DAILY [facility] Last Admin: 04/29/24 12:25 Dose: 81 mg Documented By: GRETCHEN Atorvastatin Calcium (Atorvastatin Calcium 40 Mg Tablet) 40 mg PO DAILY@1200 [facility] Last Admin: 04/29/24 12:25 Dose: 40 mg Documented By: GRETCHEN Brimonidine Tartrate (Brimonidine Tartrate 0.2% Oph 5 Ml Bottle) 1 drop EYE- LEFT TID [facility] Last Admin: 04/29/24 12:29 Dose: 1 drop Documented By: GRETCHEN Calcium Carbonate (Calcium Carbonate 750 Mg Tab.Chew) 750 mg PO Q4H PRN PRN Reason: Heartburn Gabapentin (Gabapentin 100 Mg Capsule) 100 mg PO BID [facility] Last Admin: 04/27/24 09:40 Dose: 100 mg Documented By: GILMA Heparin Sodium (Porcine) (Heparin Sodium,Porcine 5,000 Unit/Ml Vial) 4,100 unit 40 unit/kg (4100 unit) IVPUSH PROTOCOL BOLUS PRN; Protocol PRN Reason: 40 unit/kg - Heparin Protocol Last Admin: 04/29/24 01:47 Dose: 4,100 unit Documented By: BREANN Heparin Sodium (Porcine) (Heparin Sodium,Porcine 5,000 Unit/Ml Vial) 8,100 unit 80 unit/kg (8100 unit) IVPUSH PROTOCOL BOLUS PRN; Protocol PRN Reason: 80 unit/kg - Heparin Protocol Hydralazine HCl (Hydralazine Hcl 50 Mg Tablet) 50 mg PO TID@0900,1200,1800 [facility]; Protocol Last Admin: 04/29/24 12:38 Dose: Not Given Documented By: GRETCHEN Non-Admin Reason: Previously Administered Heparin Sodium/Sodium Chloride (Heparin Sodium,Porcine/1/2ns) 25,000 unit in 250 mls @ 0 mls/hr IVCONT .Q0M [facility]; Protocol Last Admin: 04/29/24 09:02 Dose: 13 units/kg/hr, 13.18 mls/hr Documented By: GRETCHEN Co-signed By: ARCELIA Insulin Glargine (Insulin Glargine,Hum.Rec.Anlog 100 Unit/Ml 10 Ml Vial) 20 unit SUBCUT BEDTIME [facility] Last Admin: 04/28/24 22:29 Dose: 20 unit Documented By: BREANN Insulin Human Lispro (Insulin Lispro 100 Unit/Ml 3 Ml Vial) 0 unit SUBCUT QIDACHS [facility]; Protocol Last Admin: 04/29/24 13:03 Dose: 2 unit Documented By: GRETCHEN Ketorolac Tromethamine (Ketorolac Tromethamine 0.5% Op 5 Ml Drops) 1 drop EYE- BOTH TID [facility] Last Admin: 04/29/24 12:29 Dose: 1 drop Documented By: GRETCHEN Levothyroxine Sodium (Levothyroxine Sodium 25 Mcg Tablet) 25 mcg PO DAILY@0600 [facility] Last Admin: 04/29/24 05:19 Dose: 25 mcg Documented By: BREANN Magnesium Hydroxide (Milk Of Magnesia 30 Ml Oral.Susp) 30 ml PO DAILY PRN PRN Reason: Constipation Melatonin (Melatonin 3 Mg Tablet) 6 mg PO BEDTIME PRN PRN Reason: Insomnia Metoprolol Tartrate (Metoprolol Tartrate 50 Mg Tablet) 50 mg PO BID [facility]; Protocol Last Admin: 04/29/24 12:25 Dose: 50 mg Documented By: GRETCHEN Omeprazole (Omeprazole 20 Mg Capsule.Dr) 20 mg PO DAILY@0630 [facility] Last Admin: 04/29/24 05:19 Dose: 20 mg Documented By: BREANN Ondansetron HCl (Ondansetron Hcl 4 Mg/2 Ml Vial) 4 mg IVPUSH Q8H PRN PRN Reason: Nausea and Vomiting Sevelamer Carbonate (Sevelamer Carbonate Tablet 800 Mg Tablet) 800 mg PO TIDAC [facility] Last Admin: 04/29/24 12:25 Dose: 800 mg Documented By: GRETCHEN Sodium Chloride (0.9 % Sodium Chloride Flush 3 Ml Syringe) 3 ml IVFLUSH QSHIFT [facility] Last Admin: 04/29/24 12:31 Dose: Not Given Documented By: GRETCHEN Non-Admin Reason: IV Running Vitamin D (Cholecalciferol (Vitamin D3) 25 Mcg Tablet) 50 mcg PO DAILY [facility] Last Admin: 04/29/24 12:25 Dose: 50 mcg Documented By: GRETCHEN Labs 04/29/24 07:52 04/29/24 07:52 Labs: Laboratory Results - last 24 hr 04/28/24 04/28/24 04/29/24 15:52 21:34 00:54 MCV MCH MCHC RDW Plt Count MPV Immature Gran % (Auto) Neut % (Auto) Lymph % (Auto) [place] % (Auto) Eos % (Auto) Baso % (Auto) Lymph # (Auto) [place] # (Auto) Eos # (Auto) Baso # (Auto) Abs Immat Gran (auto) Absolute Neuts (auto) Absolute Nucleated RBC Nucleated RBC % (auto) aPTT Heparin Protocol 106.5 H D 50.9 L D Anion Gap Estim Creat Clear Calc Estimated GFR POC Glucose 222 H Random Glucose Calcium C-Reactive Protein Procalcitonin 04/29/24 04/29/24 04/29/24 07:15 07:52 12:34 MCV 94.6 D MCH 33.2 H MCHC 35.1 H RDW 14.5 Plt Count 118 L MPV 12.9 H Immature Gran % (Auto) 0.6 H Neut % (Auto) 62.6 Lymph % (Auto) 23.9 [place] % (Auto) 4.5 Eos % (Auto) 7.8 H Baso % (Auto) 0.6 Lymph # (Auto) 1.2 [place] # (Auto) 0.2 Eos # (Auto) 0.4 Baso # (Auto) 0.0 Abs Immat Gran (auto) 0.03 Absolute Neuts (auto) 3.1 Absolute Nucleated RBC 0.000 Nucleated RBC % (auto) 0.0 aPTT Heparin Protocol 81.6 H D Anion Gap 16 Estim Creat Clear Calc 13.1 Estimated GFR 8 POC Glucose 159 H 173 H Random Glucose 146 H Calcium 8.8 C-Reactive Protein 6.44 H Procalcitonin 0.61 Assessment and Plan (1) NSTEMI (non-ST elevated myocardial infarction): Status: Acute (2) Toxic metabolic encephalopathy: Status: Acute (3) COVID-19: Status: Acute (4) Chronic kidney disease with end stage renal failure on dialysis: Status: Acute (5) Acute hyperkalemia: Status: Acute (6) Syncope: Status: Acute Plan d5 59yo F with ESRD on HD, DM2, AMARJIT on CPAP, atrial flutter on apixaban, CAD, CHF presenting after syncope and fall; found to have hyperK developed NSTEMI though without any symptoms acute hyperK - resolved after Lokelma + HD NSTEMI - no EKG change;s TTE with normal EF and no WMAs; Cardiology consulted, continue 48h of IV heparin, outpatient Cardiology f/u and cardiac cath; continue ASA + atorvastatin syncope - possibly due to Covid-19; outpt [facility] acute toxic metabolic encephalopathy - resolved; held gabapentin Covid-19 infection - not initially hypoxic; continue supportive care acute hypoxic respiratory failure - attributed to fluid overload rather than Covid-19 but if unable to wean O2, consider dexamethasone treatment ESRD - continue HD MWF, sevelamer atrial flutter - conitnue apixaban, metoprolol tartrate CAD - continue ASA, atorvastatin HTN - continue hydralazine, amlodipine GERD - continue PPI DM2 - basal-bolus insulin hypothyroidism - continue LT4 dispo - recommend STR In my clinical judgment, the patient requires continued inpatient hospitalization for the following reasons: heparin drip Total time managing care of this patient today: 45 minutes. Quality Stroke Does the patient have a stroke diagnosis?: No VTE Prior VTE?: No VTE Risk Level:: Medical - moderate - high VTE Device Contraindication: Treatment Not Indicated VTE Drug Contraindication: N/A - Med Ordered
[2024-04-29 15:16] LABS: PTT Heparin Drip 61.4 SEC (53-77.9)
[2024-04-29 16:27] LABS: Glucose, Whole Blood 187 mg/dL (60-115)
[2024-04-29 19:53] LABS: Glucose, Whole Blood 233 mg/dL (60-115)
[2024-04-29] MEDS: Insulin Glargine,Hum.rec.anlog 100 UNIT/ML 10 ML VIAL 20 UNIT SUBCUT (21:17)
[2024-04-29 22:17] LABS: PTT Heparin Drip 44.1 SEC (53-77.9)
--- NOTE | 2024-04-29 22:30 | PC.NURSE ---
MD notified of pt's loss of IV access prior to lab draw and inability to restart IV for short period of time. Pt off heparin drip approximately 30-45 mins resulting in lower PTT, rate and bolus adjusted accordingly. US guided IV placed to R AC.
[2024-04-29] MEDS: Acetaminophen 325 MG TABLET 650 MG PO (23:07)
[2024-04-29] MEDS: Melatonin 3 MG TABLET 6 MG PO (23:08)
[2024-04-30] VITALS (8 sets, daily range): BP systolic 105–135; BP diastolic 38–95; PULSE 51–62; RESP 12–20; TEMP 36.2–36.8; O2SAT 97–100
[2024-04-30] MEDS: Heparin Sodium,Porcine/1/2NS 25,000 UNIT/250 ML IV.SOLN 15.21 UNIT IVCONT (04:09)
[2024-04-30] MEDS: Omeprazole 20 MG CAPSULE.DR PO (05:23)
[2024-04-30] MEDS: Levothyroxine Sodium 25 MCG TABLET PO (05:23)
[2024-04-30] MEDS: Acetaminophen 325 MG TABLET 650 MG PO ×2 (05:23→22:17)
[2024-04-30 06:48] LABS: PTT Heparin Drip 57.6 SEC (53-77.9)
[2024-04-30 07:41] LABS: Glucose, Whole Blood 254 mg/dL (60-115)
[2024-04-30] MEDS: Insulin Lispro 100 UNIT/ML 3 ML VIAL SUBCUT ×4 (08:31→22:19)
[2024-04-30] MEDS: 0.9 % Sodium Chloride Flush 3 ML SYRINGE IVFLUSH ×3 (08:32→22:19)
[2024-04-30] MEDS: Sevelamer Carbonate Tablet 800 MG TABLET PO ×3 (08:32→17:00)
[2024-04-30] MEDS: Aspirin Enteric Coated 81 MG TABLET.DR PO (08:36)
[2024-04-30] MEDS: amLODIPine Besylate 10 MG TABLET PO (08:36)
[2024-04-30] MEDS: hydrALAZINE HCl 50 MG TABLET PO ×3 (08:37→17:00)
[2024-04-30] MEDS: Cholecalciferol (Vitamin D3) 25 MCG TABLET 50 MCG PO (08:37)
[2024-04-30] MEDS: Ketorolac Tromethamine 0.5% Op 5 ML DROPS 1 DROP EYE-BOTH ×3 (08:40→22:21)
[2024-04-30] MEDS: Brimonidine Tartrate 0.2% Oph 5 ML BOTTLE 1 DROP EYE-LEFT ×3 (08:40→22:21)
--- NOTE | 2024-04-30 09:11 | MHC.CM.PN ---
PER HOSPITALIST, PT WILL LIKELY BE READY TO DC TO [facility] TOMORROW HOWEVER THERE ARE NO BED OFFERS AT THIS TIME REFERRAL UPDATED
--- NOTE | 2024-04-30 10:00 | PM.PNCARD ---
Subjective Subjective Date of Service: 04/30/24 Interval history: Seen and examined at bedside. She has no symptoms. Physical Exam Vital Signs: Last Vital Signs Temp 97.7 F 04/30/24 08:00 Pulse 51 04/30/24 08:19 Resp 12 04/30/24 08:00 BP 134/63 04/30/24 08:00 Pulse Ox 98 04/30/24 08:00 O2 Del Method Nasal Cannula 04/30/24 08:00 O2 Flow Rate 2 04/30/24 08:00 BMI result Body Mass Index 39.6 GENERAL APPEARANCE: in no acute distress, pleasant. NECK: no carotid bruit, no jugular venous distention. SKIN: no suspicious lesions, warm and dry. HEART: no murmurs, regular rate and rhythm. LUNGS: clear to auscultation bilaterally. ABDOMEN: soft, nontender. EXTREMITIES: no edema. PERIPHERAL PULSES: equal. NEUROLOGIC: No gross deficits, AAO X 3 Objective Labs and Meds 04/29/24 07:52 04/29/24 07:52 Lab results: Laboratory Results - last 24 hr 04/29/24 04/29/24 04/29/24 12:34 14:42 16:20 aPTT Heparin Protocol 61.4 D POC Glucose 173 H 187 H 04/29/24 04/29/24 04/30/24 19:45 22:06 06:33 aPTT Heparin Protocol 44.1 L D 57.6 D POC Glucose 233 H 04/30/24 07:28 aPTT Heparin Protocol POC Glucose 254 H Progress Note: A&P Assessment and plan (1) NSTEMI (non-ST elevated myocardial infarction): Status: Acute (2) COVID-19: Status: Acute (3) Syncope: Status: Acute Plan Pleasant 59-year-old female who presented with syncope and NSTEMI. She has no symptoms and is denying chest discomfort and shortness of breath. She is COVID positive and has bilateral infiltrates on the CT scan. No pulmonary embolism was noted. Echocardiography has shown normal LV function without any wall motion abnormalities. ECG has some subtle lateral depressions in 1 aVL but these have been persistent and there is no dynamic changes. She has been treated for 48 hours with heparin. She can be transitioned to Eliquis. Continue baby aspirin as before. She is anemic due to underlying anemia of chronic disease due to ESRD. Plan is to arrange a diagnostic catheterization for as outpatient as she recovers from COVID-19. Thank you for allowing me to participate in the care of your patient. Please feel free to contact me if you have any questions. Time Spent With Patient Time: Total time managing care of this patient today ____ minutes. Progress Note: Quality Stroke Does the patient have a stroke diagnosis?: No Procedures Date of Service Date of Service: 04/30/24
[2024-04-30 12:10] LABS: Glucose, Whole Blood 161 mg/dL (60-115)
--- NOTE | 2024-04-30 12:32 | P.PNIM_ITS ---
Subjective Subjective Date of Service: 04/30/24 Interval History: This history was taken in [place] from the patient. No chest pain Off O2 now, dyspnea improved. Review of Systems Review of Systems: Yes all other systems are reviewed and are negative Physical Exam 2 Vital Signs: Vital Signs: Last Vital Signs Temp 97.7 F 04/30/24 08:00 Pulse 51 04/30/24 08:19 Resp 12 04/30/24 08:00 BP 134/63 04/30/24 08:00 Pulse Ox 98 04/30/24 08:00 O2 Del Method Nasal Cannula 04/30/24 08:00 O2 Flow Rate 2 04/30/24 08:00 BMI result Body Mass Index 39.6 Gen: in no acute distress HEENT: sclera anicteric, moist mucus membranes Neck: supple Lungs: diminished throughout Heart: regular rate and rhythm, no murmurs Abd: soft, non-tender, non-distended Ext: no edema Skin: warm/well-perfused Neuro: alert and oriented x3, no focal findings Psych: appropriate affect Objective Data Active Medications Acetaminophen (Acetaminophen 325 Mg Tablet) 650 mg PO Q6H PRN PRN Reason: Pain, Mild (Pain Scale 1-3), fever or headache Last Admin: 04/30/24 05:23 Dose: 650 mg Documented By: FOZIA Amlodipine Besylate (Amlodipine Besylate 10 Mg Tablet) 10 mg PO DAILY [facility]; Protocol Last Admin: 04/30/24 08:36 Dose: 10 mg Documented By: SARBJITMORP Aspirin (Aspirin Enteric Coated 81 Mg Tablet.) 81 mg PO DAILY [facility] Last Admin: 04/30/24 08:36 Dose: 81 mg Documented By: SARBJITMORP Atorvastatin Calcium (Atorvastatin Calcium 40 Mg Tablet) 40 mg PO DAILY@1200 [facility] Last Admin: 04/29/24 12:25 Dose: 40 mg Documented By: PHANLYAEL Brimonidine Tartrate (Brimonidine Tartrate 0.2% Oph 5 Ml Bottle) 1 drop EYE- LEFT TID [facility] Last Admin: 04/30/24 08:40 Dose: 1 drop Documented By: SARBJITMORP Calcium Carbonate (Calcium Carbonate 750 Mg Tab.Chew) 750 mg PO Q4H PRN PRN Reason: Heartburn Gabapentin (Gabapentin 100 Mg Capsule) 100 mg PO BID [facility] Last Admin: 04/27/24 09:40 Dose: 100 mg Documented By: GILMA Hydralazine HCl (Hydralazine Hcl 50 Mg Tablet) 50 mg PO TID@0900,1200,1800 [facility]; Protocol Last Admin: 04/30/24 08:37 Dose: 50 mg Documented By: KELLY Insulin Glargine (Insulin Glargine,Hum.Rec.Anlog 100 Unit/Ml 10 Ml Vial) 20 unit SUBCUT BEDTIME [facility] Last Admin: 04/29/24 21:17 Dose: 20 unit Documented By: FOZIA Insulin Human Lispro (Insulin Lispro 100 Unit/Ml 3 Ml Vial) 0 unit SUBCUT QIDACHS [facility]; Protocol Last Admin: 04/30/24 12:26 Dose: 2 unit Documented By: JAKE Ketorolac Tromethamine (Ketorolac Tromethamine 0.5% Op 5 Ml Drops) 1 drop EYE- BOTH TID [facility] Last Admin: 04/30/24 08:40 Dose: 1 drop Documented By: KELLY Levothyroxine Sodium (Levothyroxine Sodium 25 Mcg Tablet) 25 mcg PO DAILY@0600 [facility] Last Admin: 04/30/24 05:23 Dose: 25 mcg Documented By: FOZIA Magnesium Hydroxide (Milk Of Magnesia 30 Ml Oral.Susp) 30 ml PO DAILY PRN PRN Reason: Constipation Melatonin (Melatonin 3 Mg Tablet) 6 mg PO BEDTIME PRN PRN Reason: Insomnia Last Admin: 04/29/24 23:08 Dose: 6 mg Documented By: FOZIA Metoprolol Tartrate (Metoprolol Tartrate 50 Mg Tablet) 50 mg PO BID [facility]; Protocol Last Admin: 04/30/24 08:19 Dose: Not Given Documented By: KELLY Non-Admin Reason: Decreased Heart Rate Omeprazole (Omeprazole 20 Mg Capsule.Dr) 20 mg PO DAILY@0630 [facility] Last Admin: 04/30/24 05:23 Dose: 20 mg Documented By: FOZIA Ondansetron HCl (Ondansetron Hcl 4 Mg/2 Ml Vial) 4 mg IVPUSH Q8H PRN PRN Reason: Nausea and Vomiting Sevelamer Carbonate (Sevelamer Carbonate Tablet 800 Mg Tablet) 800 mg PO TIDAC [facility] Last Admin: 04/30/24 08:32 Dose: 800 mg Documented By: HO.PODMORP Sodium Chloride (0.9 % Sodium Chloride Flush 3 Ml Syringe) 3 ml IVFLUSH QSHIFT [facility] Last Admin: 04/30/24 08:32 Dose: 3 ml Documented By: PODMORP Vitamin D (Cholecalciferol (Vitamin D3) 25 Mcg Tablet) 50 mcg PO DAILY [facility] Last Admin: 04/30/24 08:37 Dose: 50 mcg Documented By: PODMORP Labs 04/29/24 07:52 04/29/24 07:52 Labs: Laboratory Results - last 24 hr 04/29/24 04/29/24 04/29/24 12:34 14:42 16:20 aPTT Heparin Protocol 61.4 D POC Glucose 173 H 187 H 04/29/24 04/29/24 04/30/24 19:45 22:06 06:33 aPTT Heparin Protocol 44.1 L D 57.6 D POC Glucose 233 H 04/30/24 04/30/24 07:28 11:21 aPTT Heparin Protocol POC Glucose 254 H 161 H Assessment and Plan (1) NSTEMI (non-ST elevated myocardial infarction): Status: Acute (2) Toxic metabolic encephalopathy: Status: Acute (3) COVID-19: Status: Acute (4) Chronic kidney disease with end stage renal failure on dialysis: Status: Acute (5) Acute hyperkalemia: Status: Acute (6) Syncope: Status: Acute Plan d6 59yo F with ESRD on HD, DM2, AMARJIT on CPAP, atrial flutter on apixaban, CAD, CHF presenting after syncope and fall; found to have hyperK developed NSTEMI though without any symptoms acute hyperK - resolved after Lokelma + HD; low-K diet NSTEMI - no EKG change;s TTE with normal EF and no WMAs; Cardiology consulted, to complete 48h of IV heparin later today, outpatient Cardiology f/u and cardiac cath; continue ASA + atorvastatin syncope - possibly due to Covid-19; outpt LEON acute toxic metabolic encephalopathy - resolved; held gabapentin Covid-19 infection - not initially hypoxic; continue supportive care acute hypoxic respiratory failure - attributed to fluid overload rather than Covid-19; now weaned off O2 ESRD - continue HD MWF, sevelamer atrial flutter - conitnue apixaban, metoprolol tartrate CAD - continue ASA, atorvastatin HTN - continue hydralazine, amlodipine GERD - continue PPI DM2 - basal-bolus insulin hypothyroidism - continue LT4 dispo - recommend STR In my clinical judgment, the patient requires continued inpatient hospitalization for the following reasons: heparin drip Total time managing care of this patient today: 45 minutes. Quality Stroke Does the patient have a stroke diagnosis?: No VTE Prior VTE?: No VTE Risk Level:: Medical - moderate - high VTE Device Contraindication: Treatment Not Indicated VTE Drug Contraindication: N/A - Med Ordered
[2024-04-30] MEDS: Atorvastatin Calcium 40 MG TABLET PO (12:49)
[2024-04-30] MEDS: Apixaban 5 MG TABLET PO ×2 (13:45→22:17)
[2024-04-30 17:12] LABS: Glucose, Whole Blood 217 mg/dL (60-115)
[2024-04-30 22:04] LABS: Glucose, Whole Blood 269 mg/dL (60-115)
[2024-04-30] MEDS: Melatonin 3 MG TABLET 6 MG PO (22:17)
[2024-04-30] MEDS: Insulin Glargine,Hum.rec.anlog 100 UNIT/ML 10 ML VIAL 20 UNIT SUBCUT (22:18)
[2024-04-30] MEDS: Metoprolol Tartrate 50 MG TABLET PO (22:19)
[2024-05-01 04:00] VITALS: BP 140/63; PULSE 62; RESP 20; TEMP 36.9; O2SAT 100
[2024-05-01 07:13] LABS: Hematocrit 24.3 % (37.0-47.0); Hemoglobin 8.3 g/dl (12.0-16.0); Mean Corpuscular HGB Conc 34.2 g/dl (31.0-35.0); Mean Corpuscular Hemoglobin 32.2 pg (27.0-33.0); Mean Corpuscular Volume 94.2 fL (80.0-98.0); Mean Platelet Volume 12.7 fL (9.4-12.3); Platelet Count 137 X10*3/uL (160-400); Red Blood Count 2.58 X10*6/uL (4.20-5.50); Red Cell Distribution Width 14.6 % (11.0-16.0); White Blood Count 7.1 X10*3/uL (4.8-10.8)
[2024-05-01 07:24] LABS: Anion Gap 20 (12-20); Blood Urea Nitrogen 63 mg/dL (9-16); Calcium 9.1 mg/dL (8.4-10.2); Carbon Dioxide 19 mmol/L (22-29); Chloride 98 mmol/L (96-108); Creatinine Clr Calc Pharmacy 9.2; Estimated Glomerular Filt Rate 6; Glucose Random 204 mg/dL (60-115); Potassium 4.6 mmol/L (3.3-5.1); Sodium 132 mmol/L (135-145)
[2024-05-01 07:30] LABS: Procalcitonin 0.45 ng/mL
[2024-05-01] MEDS: Levothyroxine Sodium 25 MCG TABLET PO (07:38)
[2024-05-01] MEDS: Sennosides/Docusate Sodium TABLET 2 TAB PO (07:38)
[2024-05-01] MEDS: Omeprazole 20 MG CAPSULE.DR PO (07:38)
[2024-05-01 07:48] LABS: Glucose, Whole Blood 226 mg/dL (60-115)
[2024-05-01] MEDS: hydrALAZINE HCl 50 MG TABLET PO ×2 (07:54→12:11)
[2024-05-01] MEDS: Apixaban 5 MG TABLET PO (07:54)
[2024-05-01] MEDS: Cholecalciferol (Vitamin D3) 25 MCG TABLET 50 MCG PO (07:55)
[2024-05-01] MEDS: Sevelamer Carbonate Tablet 800 MG TABLET PO ×2 (07:55→12:11)
[2024-05-01] MEDS: Aspirin Enteric Coated 81 MG TABLET.DR PO (07:55)
[2024-05-01] MEDS: amLODIPine Besylate 10 MG TABLET PO (07:55)
[2024-05-01 08:00] VITALS: BP 137/63; PULSE 55; RESP 16; TEMP 36; O2SAT 100
[2024-05-01] MEDS: Insulin Lispro 100 UNIT/ML 3 ML VIAL SUBCUT ×2 (08:05→12:10)
[2024-05-01] MEDS: 0.9 % Sodium Chloride Flush 3 ML SYRINGE IVFLUSH (08:05)
[2024-05-01 08:06] VITALS: PULSE 54
[2024-05-01] MEDS: Brimonidine Tartrate 0.2% Oph 5 ML BOTTLE 1 DROP EYE-LEFT (09:25)
[2024-05-01] MEDS: Ketorolac Tromethamine 0.5% Op 5 ML DROPS 1 DROP EYE-BOTH (09:25)
[2024-05-01 10:31] VITALS: PULSE 67; PULSE 71; O2SAT 95; O2SAT 97
--- NOTE | 2024-05-01 11:16 | MHC.CM.PN ---
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
[2024-05-01 11:45] LABS: Glucose, Whole Blood 255 mg/dL (60-115)
[2024-05-01] MEDS: Atorvastatin Calcium 40 MG TABLET PO (12:11)
--- NOTE | 2024-05-01 12:13 | PM.DS ---
DS: Providers Provider Date of Service: 05/01/24 Date of admission: 04/25/24 17:56 Date of discharge: 05/01/24 Primary care physician: Faith No MD Consults: 04/25/24 12:43 Consult to Nephrology Stat Consulting Provider: Jeffy Tineo Reason for consultation: HyperK on dyalisis Has provider been notified: Yes 04/25/24 17:56 Consult to Nephrology Routine Consulting Provider: [facility] Reason for consultation: need of dialysis 04/27/24 12:52 Consult to Cardiology Routine Consulting Provider: [facility] Reason for consultation: Elevated Trop I, near syncope DS: Diagnosis Discharge Diagnosis (1) NSTEMI (non-ST elevated myocardial infarction): Status: Acute (2) Toxic metabolic encephalopathy: Status: Acute (3) COVID-19: Status: Acute (4) Chronic kidney disease with end stage renal failure on dialysis: Status: Acute (5) Acute hyperkalemia: Status: Acute (6) Syncope: Status: Acute DS: Summary Hospital Course Hospital Course: From the history and physical by the admitting hospitalist, Delvis Gomez MD, 04/25/24: A 59 years old lady with PMH of ESRD on HD DM2, AMARJIT on CPAP, A.flutter on eliquis, CAD, CHF among others who presents to the hospital after having a fall at home and found to have hyperkalemia. The patient fell while brushing her teeth at home, no syncope or loss of consciousness. denies any headache or neck pain. No chest pain, palpitations, SOB, nausea, vomiting, diarrhea or urinary symptoms. She has been feeling weak for the last few days as both her and her were diagnosed with Covid. In ED found to have hyperkalemia. will be admitted for urgeny dialysis. 59yo F with ESRD on HD, DM2, AMARJIT on CPAP, atrial flutter on apixaban, CAD, CHF presenting after syncope and fall; found to have hyperK. Hospital course by problem: acute hyperK - Resolved after Lokelma + urgent HD. Low-potassium diet counseled. Lisinopril discontinued. NSTEMI - Diagnosed by troponin leak. No dynamic EKG changes. No anginal symptoms. TTE with normal EF and no WMAs; Cardiology consulted. Completed 48h of IV heparin. To have outpatient Cardiology follow-up for cardiac catheterization. In the meanwhile, to continue ASA + atorvastatin. syncope - Possibly due to Covid-19, but cardiology will arrange outpatient cardiac event monitor. acute toxic metabolic encephalopathy - Resolved; was probably due to excess gabapentin, which was discontinued. Covid-19 infection - Not initially hypoxic; no dexamethasone indicated. Mild symptoms. Brief subsequent hypoxia was due to fluid overload, not Covid-19. ESRD - continue HD MWF, sevelamer She was seen by PT. STR at a SNF was recommended. The patient declined. She was sent home with VNA services and home PT. Time Attestation Discharge Coordination Time (in mins): 40 Quality: Safe Use of Opioids Does Pt have an Active Cancer Diagnosis on the Problem List?: No Quality: Stroke Does the patient have a stroke diagnosis?: No Physical Exam Vital Signs: Vital Signs: Last Vital Signs Temp 96.8 F 05/01/24 08:00 Pulse 54 05/01/24 08:06 Resp 16 05/01/24 08:00 BP 137/63 05/01/24 08:00 Pulse Ox 100 05/01/24 08:00 O2 Del Method Humidified O2 05/01/24 08:00 O2 Flow Rate 2 05/01/24 08:00 BMI result Body Mass Index 39.6 Gen: in no acute distress HEENT: sclera anicteric, moist mucus membranes Neck: supple Lungs: diminished throughout Heart: regular rate and rhythm, no murmurs Abd: soft, non-tender, non-distended Ext: no edema Skin: warm/well-perfused Neuro: alert and oriented x3, no focal findings Psych: appropriate affect DS: Data Data Completed and Pending Completed studies during hospitalization [Text1]: Laboratory Results WBC 7.1 X10*3/uL (4.8-10.8) 05/01/24 06:34 RBC 2.58 X10*6/uL (4.20-5.50) L 05/01/24 06:34 Hgb 8.3 g/dl (12.0-16.0) L 05/01/24 06:34 Hct 24.3 % (37.0-47.0) L 05/01/24 06:34 MCV 94.2 fL (80.0-98.0) 05/01/24 06:34 MCH 32.2 pg (27.0-33.0) 05/01/24 06:34 MCHC 34.2 g/dl (31.0-35.0) 05/01/24 06:34 RDW 14.6 % (11.0-16.0) 05/01/24 06:34 Plt Count 137 X10*3/uL (160-400) L 05/01/24 06:34 MPV 12.7 fL (9.4-12.3) H 05/01/24 06:34 Immature Gran % (Auto) 0.6 % (0.0-0.4) H 04/29/24 07:52 Neut % (Auto) 62.6 % (45-73) 04/29/24 07:52 Lymph % (Auto) 23.9 % (20-40) 04/29/24 07:52 [place] % (Auto) 4.5 % (2-11) 04/29/24 07:52 Eos % (Auto) 7.8 % (0-4) H 04/29/24 07:52 Baso % (Auto) 0.6 % (0-2) 04/29/24 07:52 Lymph # (Auto) 1.2 X10*3/uL (1.2-4.9) 04/29/24 07:52 [place] # (Auto) 0.2 X10*3/uL (0.1-1.2) 04/29/24 07:52 Eos # (Auto) 0.4 X10*3/uL (0.0-0.4) 04/29/24 07:52 Baso # (Auto) 0.0 X10*3/uL (0.0-0.2) 04/29/24 07:52 Abs Immat Gran (auto) 0.03 X10*3/uL (0.00-0.03) 04/29/24 07:52 Absolute Neuts (auto) 3.1 x10*3/uL (2.0-8.3) 04/29/24 07:52 Absolute Nucleated RBC 0.000 X10*3/uL (0.0-0.012) 05/01/24 06:34 Nucleated RBC % (auto) 0.0 /100WBC (0.0-0.2) 05/01/24 06:34 Hold Purple Top SEE NOTE 04/27/24 15:37 PT 15.0 SEC (10.9-12.4) H 04/28/24 07:26 PT Cancelled 04/28/24 07:26 INR 1.3 (0.9-1.1) H 04/28/24 07:26 INR Cancelled 04/28/24 07:26 aPTT Heparin Protocol 57.6 SEC (53-77.9) D 04/30/24 06:33 O2 Saturation 94.0 % 04/27/24 12:17 ABG pH at Pt Temp 7.44 (7.35-7.45) 04/27/24 12:17 ABG pCO2 at Pt Temp 43 mmHg (32-45) 04/27/24 12:17 ABG pO2 at Pt Temp 73 mmHg (83-108) L 04/27/24 12:17 ABG HCO3 29 mmol/L (22-26) H 04/27/24 12:17 ABG Base Excess (Actual) 5.0 mmol/L 04/27/24 12:17 Sodium 132 mmol/L (135-145) L 05/01/24 06:34 Potassium 4.6 mmol/L (3.3-5.1) D 05/01/24 06:34 Chloride 98 mmol/L (96-108) 05/01/24 06:34 Carbon Dioxide 19 mmol/L (22-29) L 05/01/24 06:34 Anion Gap 20 (12-20) 05/01/24 06:34 BUN 63 mg/dL (9-16) H 05/01/24 06:34 Creatinine 7.53 mg/dL (0.5-1.4) H* 05/01/24 06:34 Estim Creat Clear Calc 9.2 05/01/24 06:34 Estimated GFR 6 05/01/24 06:34 POC Glucose 255 mg/dL (60-115) H 05/01/24 11:38 Random Glucose 204 mg/dL (60-115) H 05/01/24 06:34 Calcium 9.1 mg/dL (8.4-10.2) 05/01/24 06:34 Total Bilirubin 1.0 mg/dL (0.0-1.0) 04/25/24 11:35 AST 30 U/L (5-31) 04/25/24 11:35 ALT 25 U/L (0-31) 04/25/24 11:35 Alkaline Phosphatase 99 U/L (39-117) 04/25/24 11:35 Troponin I High Sens 9157.6 ng/L (<3.5-17.0) H* 04/27/24 17:26 C-Reactive Protein 2.70 mg/dL (< or = 0.50) H 05/01/24 06:34 Total Protein 7.2 g/dL (6.5-8.0) 04/25/24 11:35 Albumin 3.8 g/dL (3.5-5.0) 04/25/24 11:35 Procalcitonin 0.45 ng/mL 05/01/24 06:34 Hold Red Top See Note 04/27/24 15:37 Hold Yellow Top See Note 04/27/24 15:37 Influenza Type A (PCR) NEGATIVE (Negative) 04/25/24 13:00 Influenza Type B (PCR) NEGATIVE (Negative) 04/25/24 13:00 RSV RNA Qual (PCR) NEGATIVE (Negative) 04/25/24 13:00 SARS-CoV-2 RNA (RT-PCR) POSITIVE (Negative) A 04/25/24 13:[address] 04/25/24 11:04 IMPRESSION: 1. No evidence of acute intracranial hemorrhage or edematous territorial infarction. 2. No evidence of acute fracture or traumatic subluxation of the cervical spine. 3. Moderate underlying microangiopathy and generalized cerebral volume loss. 4. Moderate multilevel degenerative spondyloarthropathy of the cervical spine. Most notably on this limited exam without intrathecal contrast, there appears to be at least mild spinal canal stenoses from C3-C6. Electronically signed by: Tomi Lerma DO 04/25/2024 02:00 PM [facility] Head CT 04/25/24 11:56 IMPRESSION: 1. No evidence of acute intracranial hemorrhage or edematous territorial infarction. 2. No evidence of acute fracture or traumatic subluxation of the cervical spine. 3. Moderate underlying microangiopathy and generalized cerebral volume loss. 4. Moderate multilevel degenerative spondyloarthropathy of the cervical spine. Most notably on this limited exam without intrathecal contrast, there appears to be at least mild spinal canal stenoses from C3-C6. Electronically signed by: Tomi Lerma DO 04/25/2024 02:00 PM EST RP Pelvis CT 04/25/24 11:56 IMPRESSION: No acute fracture, bony pelvis. Atherosclerosis disease. Spondylosis, L4-5 and L5-S1. Electronically signed by: Mariano Delgado MD 04/25/2024 02:44 PM EST RP Chest X-Ray 04/25/24 15:20 IMPRESSION: Bronchial wall thickening may be infectious and/or inflammatory in etiology. Electronically signed by: Gloria Robbins MD 04/25/2024 04:42 PM EST RP Chest CTA 04/28/24 00:32 IMPRESSION: No acute pulmonary artery emboli. No aneurysm or dissection, thoracic aorta. Consider pulmonary edema versus multifocal pneumonia. Bilateral small volume pleural effusions. Cardiomegaly. Fleischner guidelines were followed. Electronically signed by: Mariano Delgado MD 04/28/2024 09:12 AM EST RP TTE 04/27/24 - Normal left ventricular size and systolic function. There is mildly increased left ventricular wall thickness. The visually estimated ejection fraction is between 55-60%. - E/E prime ratio is >15, consistent with elevated filling pressures. - Normal right ventricular cavity size. There is low normal right ventricular systolic function. Discharge Plan Discharge Anticipated Discharge Date/Time: 05/01/24 12:02 Patient Disposition: Home Health Service Discharge Diagnosis: syncope NSTEMI Covid-19 infection hyperkalemia encephalopathy Referrals: Faith Mason MD [Primary Care Provider] - 1 Week Elías Maddox MD [Physician] - 2 Weeks Discharge Medications: Continued Eliquis 5 mg tablet 5 mg PO BID 90 Days Qty: 180 3RF (DME) pen needle, diabetic [BD Ultra-Fine Micro Pen Needle] 32 gauge x 1/4 needle See Rx Instructions .ROUTE .MEDSUPPLY Qty: 150 11RF Rx Instructions: As directed 4 times a day insulin lispro 100 unit/mL insulin pen 8 - 14 unit subcut DIRECTED Qty: 15 5RF hydralazine 50 mg tablet 1 tab PO TID@0900,1200,1800 melatonin 5 mg tablet 5 mg PO BEDTIME PRN (Reason: Sleep) atorvastatin 40 mg tablet 40 mg PO DAILY@1200 sevelamer carbonate 800 mg tablet 800 mg PO TIDAC aspirin 81 mg tablet,delayed release (DR/EC) 81 mg PO DAILY brimonidine 0.2 % drops 1 drp ophthalmic-Left TID calcium polycarbophil [Fiber-Lax] 625 mg tablet 625 mg PO DAILY omeprazole 20 mg capsule,delayed release(DR/EC) 20 mg PO DAILY@0630 loratadine 10 mg tablet 10 mg PO DAILY levocetirizine 5 mg tablet 5 mg PO BEDTIME cholecalciferol (vitamin D3) [Vitamin D3] 50 mcg (2,000 unit) capsule 50 mcg PO DAILY insulin glargine U-300 conc [Toujeo SoloStar U-300 Insulin] 300 unit/mL (1.5 mL) insulin pen 28 unit subcut BEDTIME metoprolol tartrate 50 mg tablet 50 mg PO BID ketorolac 0.5 % drops 1 drp ophthalmic (eye) TID amlodipine 10 mg tablet 10 mg PO DAILY levothyroxine 25 mcg tablet 25 mcg PO DAILY@0600 (DME) FreeStyle Tika 3 [place] Misc See Rx Instructions .Route Qty: 1 0RF Rx Instructions: As directed (DME) FreeStyle Tika 3 Sensor Device See Rx Instructions .Route Qty: 2 11RF Rx Instructions: As directed (DME) FreeStyle Tika 3 [place] Misc See Rx Instructions .ROUTE .MEDSUPPLY Qty: 1 0RF Rx Instructions: As directed (DME) FreeStyle Tika 3 Sensor Device See Rx Instructions .ROUTE .MEDSUPPLY Qty: 2 11RF Rx Instructions: As directed (DME) blood-glucose meter [FreeStyle Lite Meter] Kit See Rx Instructions .ROUTE .MEDSUPPLY Qty: 1 0RF Rx Instructions: As directed (DME) FreeStyle Lite Strips Strip See Rx Instructions .ROUTE .COMPLEX Qty: 50 11RF Dose Instruction: TEST BLOOD SUGAR FOUR TIMES DAILY Rx Instructions: TEST BLOOD SUGAR FOUR TIMES DAILY prn sensor failure or to confirm sensor readings (DME) lancets [TRUEplus Lancets] 33 gauge misc See Rx Instructions .ROUTE .COMPLEX Qty: 50 11RF Dose Instruction: TEST BLOOD SUGAR FOUR TIMES DAILY Rx Instructions: TEST BLOOD SUGAR FOUR TIMES DAILY prn to confirm sensor reading or sensor failure glucose [Dex4 Glucose] 4 gram tablet,chewable 16 g PO Q15M MDD 16 tablets PRN (Reason: hypoglycemia) 30 Days Qty: 30 3RF Rx Instructions: every 15 minutes until symptoms of low blood sugar are controlled Discontinued gabapentin 100 mg capsule 100 mg PO BID lisinopril 30 mg tablet 30 mg PO SUTUTHSA@2100 Discharge Orders: Discharge Order (Routine); Ordered 05/01/24 Ordered By: Mely Saeed Diet: low-potassium Activity on Discharge: As tolerated Stand Alone Forms: Patient Portal Discharge page Print Language: Uzbek Care Plan Goals: recovery from Covid-19 cardiac health normal potassium normal mental status Health Concerns: syncope NSTEMI Covid-19 infection hyperkalemia encephalopathy Plan of Treatment: follow up with [facility] Cardiology in 2 weeks for cardiac event monitor and cardiac catheterization hypoxia resolved STOP lisinopril due to hyperkalemia [high potassium] continue dialysis MWF STOP gabapentin due to encephalopathy [altered mental status] Please follow up with your primary care doctor within 1 week. Return to the hospital if you experience recurrent or worsening symptoms. Assessment: See Discharge Summary.
--- NOTE | 2024-05-01 13:20 | P.F2F_ITS ---
Service Date Service Date: 05/01/24 Encounter Date of encounter: 05/01/24 Reasons for Services Signs and symptoms assessed: BP control unsteadiness/gait imbalance Reason for group home: medication management, medication treatment and teach disease management Reason for physical therapy: home safety and mobility, therapeutic exercises, gait/transfer training, assess need for DME, ADL training and energy conservation MD Overseeing Care: Faith No Homebound: Leaving the home is medically contraindicated at this time without the asist of a device and/or another person due th the listed conditions above and below. Reason homebound: unsteady gait / fall risk and weakness related to hospital stay Certification: Based on the above findings, I certify that this patient is confined to the home and needs intermittent group home care, physical therapy and/or speech therapy, or continues to need occupational therapy. The patient is under my care, and I have initiated the establishment of the plan of care. The patient will be followed by a physician who will periodically review the plan of care. Time Spent With Patient Time: Total time managing care of this patient today ____ minutes.
== END 2024-05-01 14:04 | disposition home health service (06) | DRG 425 ==
LOC: HO.ED 12:42 → HO.EDOVER 18:44 → HO.IMC 04-26 15:32
PROVIDERS: Internal Medicine; Internal Medicine Nephrology; Admitting Provider Student in an Organized Health Care Education/Training Program; Emergency Provider Emergency Medicine; PCP Internal Medicine; Visit Provider Family Medicine
DX: E87.5 Hyperkalemia (principal); J96.01 Acute respiratory failure with hypoxia; I21.4 Non-ST elevation (NSTEMI) myocardial infarction; U07.1 COVID-19; G92.8 Other toxic encephalopathy; I31.1 Chronic constrictive pericarditis; N18.6 End stage renal disease; I48.92 Unspecified atrial flutter; K21.9 Gastro-esophageal reflux disease without esophagitis; E11.22 Type 2 diabetes mellitus with diabetic chronic kidney disease; E03.9 Hypothyroidism, unspecified; G47.33 Obstructive sleep apnea (adult) (pediatric); D63.1 Anemia in chronic kidney disease; I25.10 Atherosclerotic heart disease of native coronary artery without angina pectoris; Z99.2 Dependence on renal dialysis; Z79.4 Long term (current) use of insulin; Z79.01 Long term (current) use of anticoagulants; Z79.82 Long term (current) use of aspirin; Z79.890 Hormone replacement therapy; Z79.899 Other long term (current) drug therapy
CPT/HCPCS: 0241U; 36415; 36600; 70450; 71045; 71275; 72125; 72192; 80048; 80051; 80053; 82803; 82947; 84145; 84484; 85025; 85027; 85610; 85730; 86140; 90999; 93005; 93306; 94640; 94660; 97162; 99285; J0613; J1644; J2405; Q9957; Q9967

== ENCOUNTER → 2024-04-25 11:02 | Outpatient (BNV) | payer MEDICAID, SELFPAY | PROVIDERS: Emergency Provider Emergency Medicine; PCP Internal Medicine; Visit Provider Student in an Organized Health Care Education/Training Program | DX: I21.4 Non-ST elevation (NSTEMI) myocardial infarction (principal); G92.8 Other toxic encephalopathy; U07.1 COVID-19; N18.6 End stage renal disease; Z99.2 Dependence on renal dialysis; E87.5 Hyperkalemia; R55 Syncope and collapse | CPT/HCPCS: 99223; 99232; 99233; 99239; G0180 ==

== ENCOUNTER → 2024-04-25 11:04 | Outpatient (BNV) | payer MEDICAID, SELFPAY | PROVIDERS: Emergency Provider Emergency Medicine; PCP Internal Medicine; Visit Provider Radiology Diagnostic Radiology | DX: M47.897 Other spondylosis, lumbosacral region (principal) | CPT/HCPCS: 72192 ==

== ENCOUNTER → 2024-04-25 11:05 | Outpatient (BNV) | payer MEDICAID, SELFPAY | PROVIDERS: Admitting Provider Student in an Organized Health Care Education/Training Program; Emergency Provider Emergency Medicine; PCP Internal Medicine; Visit Provider Internal Medicine Cardiovascular Disease | DX: I44.0 Atrioventricular block, first degree (principal) | CPT/HCPCS: 93010 ==

== ENCOUNTER 2024-04-25 17:56 | Outpatient (BNV) | payer MEDICAID, SELFPAY | END 2024-04-27 15:00 | PROVIDERS: Admitting Provider Student in an Organized Health Care Education/Training Program; Emergency Provider Emergency Medicine; PCP Internal Medicine; Visit Provider Internal Medicine Cardiovascular Disease | DX: I35.8 Other nonrheumatic aortic valve disorders (principal); I51.89 Other ill-defined heart diseases | CPT/HCPCS: 93306 ==

== ENCOUNTER 2024-04-25 17:56 | Outpatient (BNV) | payer MEDICAID, SELFPAY | END 2024-04-28 00:01 | PROVIDERS: Admitting Provider Student in an Organized Health Care Education/Training Program; Emergency Provider Emergency Medicine; PCP Internal Medicine; Visit Provider Radiology Diagnostic Radiology | DX: J96.01 Acute respiratory failure with hypoxia (principal); U07.1 COVID-19 | CPT/HCPCS: 71275 ==

== ENCOUNTER 2024-04-25 17:56 | Outpatient (BNV) | payer MEDICAID, SELFPAY | END 2024-04-29 10:19 | PROVIDERS: Admitting Provider Student in an Organized Health Care Education/Training Program; Emergency Provider Emergency Medicine; PCP Internal Medicine; Visit Provider Internal Medicine Cardiovascular Disease | DX: R94.31 Abnormal electrocardiogram [ECG] [EKG] (principal) | CPT/HCPCS: 93010 ==

== ENCOUNTER 2024-04-25 17:56 | Outpatient (BNV) | payer MEDICAID, SELFPAY | END 2024-04-26 02:29 | PROVIDERS: Admitting Provider Student in an Organized Health Care Education/Training Program; Emergency Provider Emergency Medicine; PCP Internal Medicine; Visit Provider Internal Medicine Cardiovascular Disease | DX: R94.31 Abnormal electrocardiogram [ECG] [EKG] (principal) | CPT/HCPCS: 93010 ==

== ENCOUNTER → 2024-04-25 17:56 | Outpatient (BNV) | payer MEDICAID, SELFPAY | PROVIDERS: Admitting Provider Student in an Organized Health Care Education/Training Program; Emergency Provider Emergency Medicine; PCP Internal Medicine; Visit Provider Internal Medicine Cardiovascular Disease | DX: I21.4 Non-ST elevation (NSTEMI) myocardial infarction (principal); U07.1 COVID-19; R55 Syncope and collapse | CPT/HCPCS: 99223 ==

== ENCOUNTER → 2024-06-14 23:59 | Outpatient (BNV) | payer MEDICAID, SELFPAY | PROVIDERS: PCP Internal Medicine; Visit Provider Internal Medicine Cardiovascular Disease | DX: I21.4 Non-ST elevation (NSTEMI) myocardial infarction (principal) | CPT/HCPCS: 92928; 93458; 99152 ==

== ENCOUNTER 2024-06-16 12:42 | Outpatient (AMB) | payer MEDICAID, SELFPAY ==
--- NOTE | 2024-06-16 12:56 | A.OFFVIS_ITS ---
Vital Signs 06/16/24 12:59 Height 5 ft 3 in Weight 219 lb 5.759 oz BMI 38.9 BP 130/72 Blood Pressure Location Rt brachial Position Sitting Pulse 68 Pulse Source Pulse Oximeter Intake Visit Reasons: Thyroid nodule Intake Note: New patient present today for Thyroid nodule office visit. Termite Exterminator Required: Yes Termite Exterminator Language: Documentation Consultant Services: Termite Exterminator Present Information Interpreted: non-clinical & clinical Accompanied by: Self / Same As Patient Allergies No Known Allergies Allergy (Verified 06/16/24 13:02) Medication List - Last Reconciled 06/16/24 by Therese Bateman MD amlodipine 10 mg PO DAILY apixaban (Eliquis) 5 mg PO BID 90 days atorvastatin 40 mg PO DAILY@1200 blood-glucose meter (FreeStyle Lite Meter kit) As directed blood-glucose meter,continuous (FreeStyle Tika 3 [place]) As directed blood-glucose meter,continuous (FreeStyle Tika 3 [place]) As directed blood-glucose sensor (FreeStyle Tika 3 Sensor device) As directed blood-glucose sensor (FreeStyle Tika 3 Sensor device) As directed brimonidine 0.2% 1 drp ophthalmic-Left TID calcium polycarbophil (Fiber-Lax) 625 mg PO DAILY cholecalciferol (vitamin D3) (Vitamin D3) 50 mcg PO DAILY clopidogrel (Plavix) 75 mg PO DAILY FreeStyle Lite Strips (blood sugar diagnostic) TEST BLOOD SUGAR FOUR TIMES DAILY prn sensor failure or to confirm sensor readings NS glucose (Dex4 Glucose) 16 grams (4 x 4 gram) PO Q15M PRN 30 days MDD 16 tablets hydralazine 1 tab PO TID@0900,1200,1800 insulin glargine U-300 conc (Toujeo SoloStar U-300 Insulin) 16 units (0.0533 mL) subcut BEDTIME insulin lispro 8 - 14 units (0.08 - 0.14 mL) subcut DIRECTED ketorolac 0.5% 1 drp ophthalmic (eye) TID lancets (TRUEplus Lancets) TEST BLOOD SUGAR FOUR TIMES DAILY prn to confirm sensor reading or sensor failure levocetirizine 5 mg PO BEDTIME levothyroxine 25 mcg PO DAILY@0600 loratadine 10 mg PO DAILY melatonin 5 mg PO BEDTIME PRN metoprolol tartrate 12.5 mg (1/2 x 25 mg) PO BID omeprazole 20 mg PO DAILY@0630 pen needle, diabetic (BD Ultra-Fine Micro Pen Needle) As directed 4 times a day sevelamer carbonate 800 mg PO TIDAC HPI Comments Details: 59-year-old female coming in today for initial evaluation of nontoxic multinodular goiter. She also has past medical history significant for type 2 diabetes mellitus, hypertension, hyperlipidemia, hypothyroidism, ESRD. She follows with Jenn Smith APRN in our department for type 2 DM , last visit February 2024. This was not addressed today. Patient had a CT cervical spine 08/02/2023 which identified a 1.5 cm nodule in the left thyroid lobe. Subsequently thyroid ultrasound done 03/08/2024 showed a left midpole nodule 2.1 cm in the maximum dimension solid, hypoechoic TR 4 category. I reviewed the images myself. Another subcentimeter left upper pole cyst noted. Patient has a history of hypothyroidism on levothyroxine 25 mcg daily, last TSH from January 2024 was normal. Patient currently denies heat or cold intolerance, diarrhea or constipation, hair loss, palpitation, anxiety, weight changes, mood changes, , changes in appearance of eyes or vision changes, tremors, increased diaphoresis or dry skin. ? Complains of intermittent dysphagia. Patient denies pain on swallowing or difficulty breathing. Reports some voice hoarsness. Patient denies any history of childhood neck radiation. Denies having ever used lithium, amiodarone or biotin supplements. Patient denies any family history of thyroid cancer or thyroid disease. Never smoker Physical exam General: sitting comfortably in no acute distress HEENT: normocephalic/atraumatic, moist oral mucosa Neck: supple, symmetrical, no thyromegaly Cardiac: normal heart sounds Pulm: normal breath sounds B/L, no added breath sounds Abd: not distended, no tenderness Extremities: no edema, no signs of myxedema Neuro: AAO x3, Speech: normal, no facial droop, moving all 4 extremities Laboratory Tests 01/26/24 14:16 TSH 2.25 US THYROID 03/08/24 CLINICAL INFORMATION: Nodules on CT. COMPARISON: CT cervical spine 08/02/2023. TECHNIQUE: Linear transducer grayscale and color Doppler examination with attention to the region of the thyroid. FINDINGS: SIZE: Measurements of the thyroid lobes and nodules are given in sagittal, anteroposterior and transverse dimensions respectively. Right Thyroid Lobe: 5.6 x 1.6 x 1.6 cm, volume 7.6 mL. Parenchyma: The gland echotexture is homogeneous. Thyroid vascularity is normal. Left Thyroid Lobe: 4.6 x 1.7 x 2.2 cm, volume 8.7 mL. Parenchyma: The gland echotexture is homogeneous. Thyroid vascularity is normal. Isthmus: 0.2 cm in maximum AP dimension. Estimated total number of nodules greater than or equal to 1 cm: 1. Data Entry Operator nodules are described as follows: 1. Location: Left mid pole. Size: 2.1 x 1.3 x 1.4 cm, volume 1.91 mL. Nodule characteristics: Composition: Solid (2). Echogenicity: Hypoechoic (2). Shape: Not taller than wide (0). Margins: Smooth (0). Echogenic Foci: None (0). ACR TI-RADS total points: 4 ACR TI-RADS category: 4 2. Location: Left upper pole. Size: 0.3 x 0.3 x 0.4 cm, volume 0.02 mL. Nodule characteristics: Composition: Cystic(0). ACR TI-RADS total points: 0 ACR TI-RADS category: 1 NODES: No lymphadenopathy is seen in the tissue surrounding the thyroid gland. US/US thyroid IMPRESSION: 2.1 cm left mid pole nodule meets criteria for biopsy. CT HEAD WITHOUT CONTRAST 08/02/23 CT CERVICAL SPINE WITHOUT CONTRAST CLINICAL INFORMATION: Fall. Patient on Eliquis. Pain. COMPARISON: CT head and cervical spine from 11/07/2020. TECHNIQUE: Contiguous axial imaging was performed from the skull base to vertex without intravenous administration of contrast. Contiguous axial imaging was performed from the upper chest through the skull base without intravenous administration of contrast. Coronal and sagittal reformats were obtained at the acquisition workstation. This CT examination was performed using dose optimization techniques as appropriate, variously including the following: *Automated exposure control. *Adjustment of mA and/or kV according to patient size (this includes techniques or standardized protocols for targeted exams where dose is matched to indication/reason for exam; i.e. extremities or head). *Use of iterative reconstruction technique. DLP: 1395 mGy-cm FINDINGS: Head: There is no evidence of acute intracranial hemorrhage or edematous territorial infarction. [place]-white matter differentiation is preserved. A few foci of hypoattenuation in the periventricular and deep white matter are consistent with mild microangiopathy. Proportional prominence of the ventricles and sulcal spaces without evidence of obstructive hydrocephalus. No abnormal mass effect or midline shift. No extra-axial fluid collections. No acute soft tissue or osseous abnormalities. Mild mucosal thickening of the paranasal sinuses. The mastoid air cells and middle ear cavities are clear. Cervical Spine: The atlantooccipital and atlantoaxial articulations remain well aligned. Straightening of the normal cervical lordosis. Otherwise, there is anatomic alignment of the vertebral bodies and posterior elements. No evidence of acute fracture or subluxation. The vertebral body heights are maintained. Advanced degenerative disc disease at T1-T2. Moderate degenerative disc disease from C3-C7 with prominent disc-osteophyte complex formation. There appear to be moderate disc herniations at C3-C4 and C4-C5 leading to at least moderate spinal canal stenoses at these levels. Facet and uncovertebral joint arthropathy leads to osseous encroachment on the neural foramina from C4-C6. Moderately prominent bridging anterior osteophytosis from C3-C6. Partially mineralized material inferior to the atlantodental articulation as may be seen with calcific tendinosis. There is no prevertebral soft tissue swelling. There is a 1.5 cm hypoattenuating nodule in the left thyroid lobe. The remaining cervical soft tissues are within normal limits. The lung apices demonstrate no abnormalities. CT/CT head/brain wo IV con IMPRESSION: 1. No evidence of acute intracranial hemorrhage or edematous territorial infarction. Mild underlying microangiopathy and generalized cerebral volume loss. 2. No evidence of acute fracture or traumatic subluxation of the cervical spine. 3. Moderate multilevel degenerative spondyloarthropathy of the cervical spine. Most notably on this limited exam without intrathecal contrast, there appear to be moderate spinal canal stenoses at C3-C4 and C4-C5. 4. There is a 1.5 cm nodule in the left thyroid lobe. Recommend further characterization with thyroid ultrasound. [facility] 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 Uncontrolled type 2 diabetes mellitus with hyperglycemia, with long-term current use of insulin Hidradenitis suppurativa Pneumonia Type 2 diabetes mellitus with hyperglycemia Paroxysmal atrial flutter Dysphonia Chronic cough Urinary frequency Dyspnea on exertion Unstable gait Asthma Chronic low back pain without sciatica Osteoarthritis of both knees Kidney stones Depression AMARJIT (obstructive sleep apnea) Normocytic anemia ESRD needing dialysis CHF (congestive heart failure) Obesity due to excess calories CAD (coronary artery disease) GERD (gastroesophageal reflux disease) Thyroid disease AV fistula HLD (hyperlipidemia) ESRD (end stage renal disease) T2DM (type 2 diabetes mellitus) End stage renal disease on dialysis Dialysis patient Renal failure (ARF), acute on chronic HTN (hypertension) Surgical History History of kidney surgery Hx of cholecystectomy Hx of bone graft Family History Father CVD (cardiovascular disease) Diabetes Mother Diabetes Sister Stomach cancer Social History Household Members: Spouse Household Members Other:: , brother, uncles Housing: House Do you presently have visiting nurse or other home services: Yes Unable to assess alcohol history related to: Unknown Alcohol intake: never Patient Tobacco Use Status: Never used Tobacco Advance Directives Date on File: 02/15/21 service: No Current occupational status: disabled Current occupation: right hand dominant Assessment & Plan Assessment & Plan (1) Non-toxic multinodular goiter: Code(s): E04.2 - Nontoxic multinodular goiter Category: Medical Plan: 59-year-old female with no family history of thyroid cancer with no personal history of head or neck radiation who is coming in today to establish care with me for nontoxic multinodular goiter. She has also seen for type 2 diabetes mellitus in our department, this was not addressed today. Patient had a CT cervical spine 08/02/2023 which identified a 1.5 cm nodule in the left thyroid lobe. Subsequently thyroid ultrasound done 03/08/2024 showed a left midpole nodule 2.1 cm in the maximum dimension solid, hypoechoic TR 4 category. I reviewed the images myself in this nodule meets criteria for FNA.. Another subcentimeter left upper pole cyst noted. I explained that it is common to have thyroid nodules. About 95% of the time these nodules are benign. However if the nodule is > 1 cm in size or suspicious on ultrasound then a fine need aspiration biopsy is recommended. We discussed that a FNAB involves 4-5 passes with a small gauge needle and material obtained is sent off for cytology.If the cytopathology is benign then the nodule will be followed annually with repeat ultrasounds. However if it is suspicious or malignant, we will need to discuss further management. Indeterminate cytology can be further investigated with repeat FNA, genetic testing or empiric lobectomy. Malignant cytology is managed with either lobectomy or total thyroidectomy. We discussed briefly that thyroid cancer is, in most patients, an indolent disease that does not affect mortality. We will arrange for FNA of the left midpole 2.1 cm nodule at next available opening and patient will follow up with me in clinic thereafter for results and further decision making. Plan: -scheduled for FNA of the left midpole 2.1 cm nodule and follow up 2 weeks after discuss results Plan I spent 45 minutes in reviewing the record, seeing the patient and documenting in the medical record. Orders: Orders US biopsy thyroid Today E04.2 - Nontoxic multinodular goiter, R77.8 - Other specified abnormalities of plasma proteins Coding Level of Care Code Est Pt Level 4 (86493) Diagnoses Non-toxic multinodular goiter E04.2 Time Spent (min) 45
[2024-06-16 12:59] VITALS: BP 130/72; PULSE 68; BMI 38.9
== END 2024-06-16 13:36 | disposition home or self-care (01) ==
PROVIDERS: PCP Internal Medicine; Visit Provider Student in an Organized Health Care Education/Training Program
DX: E04.2 Nontoxic multinodular goiter (principal)
CPT/HCPCS: 99214

== ENCOUNTER → 2024-06-16 12:42 | Outpatient (BNVA) | payer MEDICAID, SELFPAY | PROVIDERS: PCP Internal Medicine; Visit Provider Student in an Organized Health Care Education/Training Program | DX: E04.2 Nontoxic multinodular goiter (principal) | CPT/HCPCS: 99212 ==

== ENCOUNTER 2024-06-23 12:57 | Outpatient (AMB) | payer MEDICAID, SELFPAY ==
--- NOTE | 2024-06-23 13:15 | MHC.AMDMED ---
Intake Intake Visit Reasons: 30 min Gang Knife Fish Chopper Required: Yes Gang Knife Fish Chopper Language: Last Greaser Name: Pt's NETWORK DESKTOP SUPPORT SPECIALIST Accompanied by: Other Relationship Allergies No Known Allergies Allergy (Verified 06/16/24 13:02) HPI Comprehensive Diabetes Asmnt Most Recent Diabetes Results: Hemoglobin A1c 9.3 % 03/26/18 Microalb/Creat Ratio 419.5 ug/mg cr 07/23/20 Cholesterol 77 mg/dL (<200) 12/01/23 HDL Cholesterol 31 mg/dL (>40) L 12/01/23 Triglycerides 81 mg/dL (<150) 12/01/23 Creatinine 7.53 mg/dL (0.5-1.4) H* 05/01/24 Blood Urea Nitrogen 63 mg/dL (9-16) H 05/01/24 Sodium 132 mmol/L (135-145) L 05/01/24 Potassium 4.6 mmol/L (3.3-5.1) 05/01/24 Chloride 98 mmol/L (96-108) 05/01/24 Carbon Dioxide 19 mmol/L (22-29) L 05/01/24 Calcium 9.1 mg/dL (8.4-10.2) 05/01/24 AST 30 U/L (5-31) 04/25/24 ALT 25 U/L (0-31) 04/25/24 Total Protein 7.2 g/dL (6.5-8.0) 04/25/24 Albumin 3.8 g/dL (3.5-5.0) 04/25/24 [facility] Medical History (Updated 06/16/24 @ 13:32 by Therese Bateman MD) Non-toxic multinodular goiter Chronic kidney disease with end stage renal failure on dialysis 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 Uncontrolled type 2 diabetes mellitus with hyperglycemia, with long-term current use of insulin Hidradenitis suppurativa Pneumonia Type 2 diabetes mellitus with hyperglycemia Paroxysmal atrial flutter Dysphonia Chronic cough Urinary frequency Dyspnea on exertion Unstable gait Asthma Chronic low back pain without sciatica Osteoarthritis of both knees Kidney stones Depression AMARJIT (obstructive sleep apnea) Normocytic anemia ESRD needing dialysis CHF (congestive heart failure) Obesity due to excess calories CAD (coronary artery disease) GERD (gastroesophageal reflux disease) Thyroid disease AV fistula HLD (hyperlipidemia) ESRD (end stage renal disease) T2DM (type 2 diabetes mellitus) End stage renal disease on dialysis Dialysis patient Renal failure (ARF), acute on chronic HTN (hypertension) Surgical History History of kidney surgery Hx of cholecystectomy Hx of bone graft Family History Father CVD (cardiovascular disease) Diabetes Mother Diabetes Sister Stomach cancer Social History Household Members: Spouse Household Members Other:: , brother, uncles Housing: House Do you presently have visiting nurse or other home services: Yes Unable to assess alcohol history related to: Unknown Alcohol intake: never Patient Tobacco Use Status: Never used Tobacco Advance Directives Date on File: 02/15/21 service: No Current occupational status: disabled Current occupation: right hand dominant Assessment & Plan Assessment & Plan (1) 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: Code(s): E11.22 - Type 2 diabetes mellitus with diabetic chronic kidney disease; N18.6 - End stage renal disease Plan: Patient at visit for follow-up blood glucose check, and diabetes education Pt reports she has not received sensors in 2-3 months Called Pt's pharmacy, was unable to speak with anyone, left a msg with contact info. Patient reports blood sugars below: Date Breakfast/Fasting Pre-Lunch Pre-Supper Bedtime Notes 06/23 315 06/22 305 333 06/21 360 06/20 207 06/19 232 225 06/18 281 429 258 06/17 185 242 Patient is overdue for A1c instructed to instructed to make follow-up with [facility]URCH SECRETARY. Patient stated that her insulin are on a sliding scale. Clarified with patient how to take Toujeo once a day script is written for 16 units And Humalog prior to meals based on sliding scale Reviewed with patient action of Toujeo and Humalog Plan/Goal: Patient will take insulin as directed, follow-up with certified coder 1 month after visit with [facility] SECRETARY If she needs assistance setting up CGM set up appointment sooner Portions of this note were created using voice recognition software, please excuse any words or phrases that may have been misinterpreted. Patient Instructions: Toujeo 16 unidades diarias Humalog antes de las comidas 80-150 8 unidades 151-200 10 unidades 201 a 300 12 unidades M?s de 300 14 unidades Por favor rehana sal virgen con Jenn para el seguimiento de la diabetes. Coding Level of Care Code Est Pt Level 1 (41089) Diagnoses 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 E11.22; N18.6
--- OUTSIDE RECORDS SUMMARY | 2024-06-23 16:44 | XMS_ITS | Encounter Summary ---
Author Organization [employer] Address [address] [place] [address] Care Team Providers Care Color Maker Formulator Name Role Phone Faith Mason MD Primary Care Provide r Encounter Details Date Type Department Care Team (Late st Contact Info) Description 06/17/2024 Refill [facility] [address], [place] [phone] Faith Mason MD [address] [place] [address] Social History Tobacco Use Types Packs/Day Years Used Date Smoking Tobacco: Never Passive Smoke Exposure: Never Smokeless Tobacco: Never Alcohol Use Standard Drinks/Week Comments Never 0 (1 standard drink = 0.6 oz pur e alcohol) Alcohol Answer Date Recorded Frequency of Alcohol Consumption Not on file 12/24/2023 Average Number of Drinks Not on file 024 Frequency of Binge Drinking Not on file 05/2023 Score 0 12/24/2023 Depression Answer Date Recorded Patient Health Questionnaire-9 Score 6 11/24/2023 Patient Health Questionnaire-9 Score 6 11/24/2023 Last PHQ-9: Questionnaire Data Not on file 0 11/24/2023 Housing Stability Answer Date Recorded What is your housing situation today? I have alli marquez 12/24/[address] you li ve. Do you have problems with any of the following? None of the above 12/24/2023 Food Insecurity Answer Date Recorded Within the past 12 months, y ou worried that your food would run out before you got money to buy more: Never True 12/24/2023 Within the past 12 months,th e food you bought just didn't last and you didn't have enough money to get more: Never True 05/2023 Transportation Answer Date Recorded In the past 12 months, has l ack of transportation kept you from medical appts, meetings, work or from getting things needed for daily living? No 12/24/2023 Utilities Answer Date Recorded In the past 12 months, has t he electric, gas, oil or water company threatened to shut off services in your home? No 12/24/2023 Depression Answer Date Recorded Patient Health Questionnaire-2 Score 3 11/24/2023 Internet Access Answer Date Recorded Internet Access Q1 No 01/25/2024 Internet Access Q2 I do not want or need it 06/2023 Comments No Sex and Gender Information Value Date Recorded Sex Assigned at Female 03/24/2022 10:18 AM EDT Legal Sex Female 10:18 AM EDT Gender Identity Female 03/24/2022 10:18 AM EDT Sexual Orientation Choose not to disclose 2021 10:18 AM EDT documented as of this encounter Plan of Treatment Upcoming Encounters Date Type Department Care Team (Late st Contact Info) Description 07/29/2024 2:15 PM EST Office Visit [facility] [address] [place] [phone] Kay Mackay MD [address] [place] [phone] 09/20/2024 3:00 PM EDT Office Visit [facility] [address] [place] [phone] Jacob Shannonaris [address] [place] [address] documented as of this encounter Visit Diagnoses Not on filedocumented in this encounter Additional Health Concerns Assessment Noted Time PHQ-9 Depression Total Score: 6 11/24/19 24 2:35 PM EDT documented as of this encounter Care Teams Color Maker Formulator Relationship Specialty Start Date End Date Faith Mason MD [address] [place] [id number] PCP - General Family Medicine 04/12/19 Linda Peralta Tailor FitterElectrical Power Engineer 06/08/24 documented as of this encounter
--- OUTSIDE RECORDS SUMMARY | 2024-06-23 16:44 | XMS_ITS | Clinical Summary ---
Author Organization [employer] Address [address] [place] [address] [address] [place] [address] Care Team Providers Care Digital Account Coordinator Name Role Phone Faith Mason MD Primary Care Provide r Allergies No known active allergies Medications * This document contains information received from the source organization and may not represent a complete record from that organization. FREESTYLE LITE test strip TEST BLOOD SUGAR FOUR TIMES DAILY DIRECTED Active Novofine Pen Needle 32G X 6 MM misc USE FOUR TIMES DAILY DIRECTED Active nitroglycerin (Nitrostat) 0.[address] 1 tablet by sublingual route at the first sign of an attack; no more than 3 tabs are recommended within a 15 minute period. Active sevelamer carbonate (Renvela) 800 MG tablet TAKE 1 TABLET BY MOUTH THREE TIMES DAILY IN THE MORNING, AT NOON, AND IN THE EVENING WITH FOOD (PARA FOSFATO ALTO) Active Blood Pressure Monitoring (Blood Pressure Cuff) misc Use to take Blood Pressure daily Active nystatin (Mycostatin) creamIndications :Vulvar abscess Apply twice daily as needed between skin folds for fungal infection 30 g 1 Active HumaLOG KWIKPEN 100 UNIT/ML injection INJECT 8-14 UNITS SUBCUTANEOUSLY THREE TIMES DAILY BEFORE MEALS PER SLIDING SCALE (BS 80-100: 8 units; 101-200: 10 units; 201-300: 12 units; >301 14 units) 15 mL 11 Active polycarbophil (FiberCon) 625 MG tabletIndication s:Constipation, unspecified constipation type Take 1 tablet (625 mg) by mouth in the morning. 30 tablet 2 024 2024 Active Blood Glucose Monitoring Suppl (FreeStyle [place] Lite) w/Device kitIndications:T ype 2 diabetes mellitus with hyperglycemia, with long-term current use of insulin ([facility]) Use to test blood sugar 3 times daily 1 kit 024 Active TRUEplus Lancets 33G miscIndications: Type 2 diabetes mellitus with hyperglycemia, with long-term current use of insulin ([facility]) TEST BLOOD SUGAR THREE TIMES DAILY 100 each 11 024 Active levothyroxine (Synthroid, Levoxyl) 25 MCG tablet TAKE 1 TABLET BY MOUTH EVERY MORNING 90 tablet 3 024 Active omeprazole (PriLOSEC) [address] capsuleIndicatio ns:Gastroesophag eal reflux disease, unspecified whether esophagitis present Take 1 capsule (20 mg) by mouth before breakfast. Do not crush or chew. 30 capsule 024 2024 Active Alcohol Swabs (Alcohol Prep) 70 % padsIndications: Type 2 diabetes mellitus with hyperglycemia, with long-term current use of insulin ([facility]) USE DIRECTED THREE TIMES DAILY 100 each 11 024 Active insulin glargine (Toujeo Max SoloStar) 300 UNIT/ML injectionIndicat ions:Type 2 diabetes mellitus with hyperglycemia, with long-term current use of insulin ([facility]) INJECT 28 UNITS SUBCUTANEOUSLY EVERY DAY 6 mL 1 024 Active D3 Super Strength 50 MCG (1999 UT) capsule TAKE 1 CAPSULE BY MOUTH EVERY MORNING 90 capsule 1 Active atorvastatin (Lipitor) 40 MG tablet TAKE 1 TABLET BY MOUTH EVERYDAY AT NOON 90 tablet 1 024 Active sodium chloride (Maxatawny) 0.65 % nasal spray Administer 1 spray into each nostril if needed for congestion. 30 mL 024 2024 Active melatonin 5 MG tabletIndication s:Primary insomnia TAKE 1 TABLET BY MOUTH AT BEDTIME for SLEEP 90 tablet 1 024 Active amLODIPine (Norvasc) 10 MG tabletIndication s:Essential hypertension Take 1 tablet (10 mg) by mouth Once per day. 90 tablet 1 Active Aspirin Low Dose 81 MG EC tabletIndication s:Coronary artery disease involving [place] coronary artery of [place] heart with unstable angina pectoris (CMS/HCC) TAKE 1 TABLET BY MOUTH EVERYDAY AT NOON 90 tablet 3 Active guaiFENesin 200 MG/10ML liquidIndication s:Acute cough Take 10 mL by mouth every 6 (six) hours if needed (take for cough if needed). 236 mL Active brimonidine (AlphaGAN) 0.2 % ophthalmic solution Administer 1 drop into the left eye 3 times daily. Active Continuous Glucose Disease Case Manager Rn (FreeStyle Tika 3 Gilbert) device Use as directed Active Continuous Glucose Sensor (FreeStyle Tika 3 Sensor) misc USE DIRECTED TO TEST BLOOD SUGAR CHANGE EVERY 14 DAYS Active ketorolac (Acular) 0.5 % ophthalmic solution INSTILL 1 DROP AFFECTED EYE(S) THREE TIMES DAILY STARTING 2 DAYS BEFORE SURGERY Active levocetirizine (Xyzal) 5 MG tablet Take 1 tablet by mouth at bedtime. Active loratadine (Claritin) 10 MG tablet Take 1 tablet by mouth in the morning. Active prednisoLONE acetate (Pred-Forte) 1 % ophthalmic suspension Administer 1 drop into the left eye 3 times daily. Active docusate sodium (Colace) 100 MG capsuleIndicatio ns:Other constipation Take 1 capsule (100 mg) by mouth 2 times daily. 60 capsule 1 025 2024 Active gabapentin (Neurontin) 100 MG capsuleIndicatio ns:Diabetic polyneuropathy associated with type 2 diabetes mellitus (CMS/HCC) TAKE 1 CAPSULE BY MOUTH TWICE DAILY IN THE MORNING AND IN THE EVENING 60 capsule 025 Active Acetaminophen Extra Strength 500 MG tabletIndication s:Polyarthralgia TAKE 2 TABLETS BY MOUTH EVERY 8 HOURS NEEDED FOR MILD PAIN 30 tablet 2 025 Active hydrALAZINE (Apresoline) 50 MG tablet Take 1 tablet (50 mg) by mouth 3 times daily. 270 tablet 1 025 Active metoprolol tartrate (Lopressor) 25 MG tablet Take 0.5 tablets (12.5 mg) by mouth 2 times daily. 30 tablet 3 025 Active apixaban (Eliquis) 5 MG tabletIndication s:Atrial flutter, unspecified type (CMS/HCC) TAKE 1 TABLET BY MOUTH TWICE DAILY IN THE MORNING AND IN THE EVENING 60 tablet Active hydrALAZINE (Apresoline) 50 MG tablet TAKE 1 TABLET BY MOUTH THREE TIMES DAILY IN THE MORNING, AT NOON, AND IN THE EVENING (for high blood pressure) 022 2024 Discontinued(R eorder (will not trigger notification to Pharmacy)) acetaminophen (Tylenol Extra Strength) 500 MG tabletIndication s:Polyarthralgia Take 2 tablets (1,000 mg) by mouth every 8 (eight) hours if needed for mild pain for up to 15 days. 30 tablet 2 024 2024 Discontinued apixaban (Eliquis) 5 MG tabletIndication s:Atrial flutter, unspecified type (CMS/HCC) TAKE 1 TABLET BY MOUTH TWICE DAILY IN THE MORNING AND IN THE EVENING 60 tablet 024 2024 Discontinued metoprolol tartrate (Lopressor) 25 MG tablet Take 0.5 tablets by mouth 2 times daily. 024 2024 Discontinued(R eorder (will not trigger notification to Pharmacy)) apixaban (Eliquis) 5 MG tabletIndication s:Atrial flutter, unspecified type (CMS/HCC) TAKE 1 TABLET BY MOUTH TWICE DAILY IN THE MORNING AND IN THE EVENING 60 tablet 025 2024 Discontinued(R eorder (will not trigger notification to Pharmacy)) Active Problems Patient Care Coordination No te Formatting of this note migh t be different from the original. C3/CM Blossom Martino RN, Chart Review Problem Noted Date Diagnosed Date Chronic nonintractable headache 05/26/2024 Assessment & Plan (05/26/2024 10:29 AM EST): Patient will be follow by neurology , she lost her appointment because she was hospitalized, she will reschedule her appointment, information was given to patient Acute maxillary sinusitis 05/11/2024 Cough 05/11/2024 Preop examination 03/17/2024 Assessment & Plan (03/17/2024 4:39 PM EDT): RCRI score is 3 which means 15% risk Surgery should proceed as schedule It was advise NPO after midnight before the procedure It was advise half of the dose of long acting insulin and skip short acting insulin the day of the procedure Blood pressure medications should be taken with small sip of water Apixaban can be hold 48hrs before the procedure and reinitiate after procedure Chronic frontal sinusitis 03/17/2024 Depression with anxiety 03/17/2024 Acute intractable headache 02/09/2024 Assessment & Plan (02/09/2024 4:24 PM EDT): Pt reports ani headache of her life day 22. Has seen Er, been treated for sinusitis with antibiotics 7 days ago now with reprot of worsening left sided headache with left eye vision changes. Pt appears comfortable on exam. Vitals stable. Non focal neruo exam. Given reported severity and intractable, pt advised to go to the ER for further evaluation. She agrees with the plan. Acute bacterial sinusitis 02/02/2024 Assessment & Plan (02/02/2024 3:23 PM EDT): Likely sinusitis. No neurological concerns. Head CT last week in ED normal. WBC normal. -Supportive care advised. -Prescribed Amoxicillin empirically. -ER precautions discussed. -Seek medical attention for worsening symptoms. Screening examination for STI 12/24/2023 Other constipation 12/24/2023 Assessment & Plan (05/26/2024 10:30 AM EST): I advise more fiber on her diet and try to walk more I prescribed colace Left hip pain 12/24/2023 Chronic bilateral low back pain 12/24/2023 Assessment & Plan (12/24/2023 12:27 PM EDT): Acetaminophen PRN PT referral done Polyarthralgia 11/24/2023 GERD (gastroesophageal reflux disease) Assessment & Plan (11/25/2023 5:17 PM EDT): I advise patient to avoid NSAIDs, spicy and acid food, I advise to eat at the same time every day, I advise to elevate the head of the bed and take medications as prescribe Thyroid nodule 11/24/2023 Fibroma 11/24/2023 Dermatitis of face 11/24/2023 Diabetic polyneuropathy asso ciated with type 2 diabetes mellitus 08/24/2023 Assessment & Plan (08/24/2023 3:03 PM EDT): I will decrease gabapentin to 100mg BID Encephalopathy 08/24/2023 Assessment & Plan (05/26/2024 10:30 AM EST): Resolved Assessment & Plan (08/24/2023 3:09 PM EDT): Uremic encephalopathy? Hypo/hyperglicemia? Metabolic encephalopathy? Medication related? I will decrease gabapentin dose and monitor I extensibly discuss with patient about the necessity to be follow by endocrinology Patient will continue with VNA services Weakness 08/24/2023 Assessment & Plan (08/24/2023 3:08 PM EDT): Continue with home PT twice a week UTI symptoms 04/07/2023 Assessment & Plan (11/25/2023 5:18 PM EDT): UA and culture ordered Patient will be treated empirically with bactrim Assessment & Plan (04/07/2023 2:22 PM EST): Do not hold urine unfortunately patient could not produce enough urine for culture I will treat empirically with macrobid UA consistent with UTI If symptoms persist or worse contact me back Vaginal discharge 04/07/2023 Encounter for screening mamm ogram for malignant neoplasm of breast 04/07/2023 Colon cancer screening 04/07/2023 Dental caries 02/20/2023 Right hip pain 11/28/2022 Assessment & Plan (11/28/2022 4:39 PM EDT): Apply heat on affected area XRAY ordered after results decision for referral to PT or orthopedics Allergies 10/07/2022 Chronic pain of left ankle 10/07/2022 Left foot pain 10/07/2022 Type 2 diabetes mellitus wit h hyperglycemia, with long-term current use of insulin 05/21/2022 Assessment & Plan (05/26/2024 10:32 AM EST): Diabetes is: not controlled but improved, A1c could not be follow appropriately patient has ESRD, patient reports this AM glucose 178 - Lab Results Component Value Date HGBA1C 7.8 (A) 03/17/2024 HGBA1C 8.9 (A) 11/24/2023 HGBA1C 10.6 (A) 08/04/2023 - Lab Results Component Value Date CREATININE 5.41 (HH) 08/14/2023 -Changes: none - Diabetic eye exam:up to date - Diabetic foot exam:pending - Continue lifestyle modifications - Continue current medications - Follow up: with endocrinology as scheduled Assessment & Plan (12/24/2023 12:26 PM EDT): Its advise - Aerobic exercise to reduce BP. Initial goal of 30 min walk 3-5x/week. Increase as tolerated. - low-sodium diet (goal: <2g/day) and heart healthy diet such as DASH to reduce BP and prevent ASCVD. - Home BP monitoring 1-2 x day with goal of <140/90. - Seek immediate medical attention for chest pain, palpitations, SOB, syncope, or sudden changes in mental status. - Do not change or discontinue current prescriptions without first consulting health care provider Assessment & Plan (11/25/2023 5:21 PM EDT): Continue to follow with endocrinology Assessment & Plan (08/24/2023 3:06 PM EDT): Diabetes is: not controlled - Lab Results Component Value Date HGBA1C 10.6 (A) 08/04/2023 HGBA1C 9.8 (A) 10/07/2022 HGBA1C 10.5 (A) 05/20/2022 - Lab Results Component Value Date CREATININE 5.41 (HH) 08/14/2023 -Changes: I prescribed her supplies today and advise about diet and f/u with endocrinology - Diabetic eye exam:pending - Diabetic foot exam:pending - Continue lifestyle modifications - Continue current medications - Follow up: with endocrinology as scheduled Assessment & Plan (04/07/2023 2:05 PM EST): Continue to follow with endocrinology Assessment & Plan (11/28/2022 4:36 PM EDT): Continue to follow with endocrinology Assessment & Plan (10/07/2022 4:13 PM EDT): Continue to follow with endocrinology Assessment & Plan (05/21/2022 9:19 AM EST): -Currently followed by [facility] - last available consult note Jan 2022 w/ Dr. Miller -Continues with current med regimen: -Januvia 25mg PO daily -Tuojeo insulin 28 units subcutaneous daily -Lispro AC per SS -Dexcom ordered and managed through [facility] -Strongly encourage pt to schedule follow up appt with specialists. ED precautions reviewed. -Follow up in 1 month, sooner as needed. Abnormal gait 05/15/2022 End stage renal failure on dialysis 05/15/2022 Assessment & Plan (11/25/2023 5:22 PM EDT): Patient tells me it is plan for her to go for renal transplant she does not know the date yet Assessment & Plan (05/21/2022 9:12 AM EST): -Continues with HD on M/W/F -Low potassium diet, continues sevelamer with meals Asthma 05/15/2022 Atrial flutter 05/15/2022 Bronchitis 05/15/2022 Chronic cough 05/15/2022 Chronic low back pain 05/15/2022 Dysphonia 05/15/2022 Dyspnea on exertion 05/15/2022 Essential hypertension 05/15/2022 Assessment & Plan (05/26/2024 10:32 AM EST): I advised low Na diet and take medications as prescribed Assessment & Plan (11/25/2023 5:17 PM EDT): C/w current medications It was advise low Na diet Assessment & Plan (08/24/2023 3:07 PM EDT): I advise: - low-sodium diet (goal: <2g/day) and heart healthy diet such as DASH to reduce BP and prevent ASCVD. - Home BP monitoring 1-2 x day with goal of <140/90. - Seek immediate medical attention for chest pain, palpitations, SOB, syncope, or sudden changes in mental status. - Do not change or discontinue current prescriptions without first consulting health care provider Assessment & Plan (04/07/2023 2:00 PM EST): -Today BP elevated, patient's BP fluctuated and is low the days of HD and higher the other days - Aerobic exercise to reduce BP. Initial goal of 30 min walk 3-5x/week. Increase as tolerated. - low-sodium diet (goal: <2g/day) and heart healthy diet such as DASH to reduce BP and prevent ASCVD. - Home BP monitoring 1-2 x day with goal of <140/90. - Seek immediate medical attention for chest pain, palpitations, SOB, syncope, or sudden changes in mental status. - Do not change or discontinue current prescriptions without first consulting health care provider Assessment & Plan (10/07/2022 4:12 PM EDT): I will order today isinopril 30mg to be taken only the days she does not have dyalisis Increased frequency of urination 05/15/2022 Postmenopausal bleeding 05/15/2022 Urinary tract infectious disease 05/15/2022 Chronic diastolic heart failure 09/02/2018 Primary osteoarthritis of both knees 09/02/2018 Rash 09/02/2018 Recurrent major depression in partial remission 09/02/2018 Coronary artery disease invo lving [place] coronary artery of [place] heart with unstable angina pectoris 06/03/2018 Calculus of kidney 06/03/2018 Atypical chest pain 06/03/2018 Chronic endometritis 11/04/2016 Resolved Problems Problem Noted Date Diagnosed Date Resolved Date Type 2 diabetes mellitus without complication 09/03/19 19 05/21/2022 Encounters Date Type Department Care Team Description 06/17/[address] [facility] [address] [facility] [place] [address] Faith Mason MD 06/17/[address] [facility] [address] [place], [place] [address] Faith Mason MD Atrial flutter, unspecified type (CMS/HCC) 06/16/[address] [facility] [address] [place], [place] [address] Faith Mason MD 06/08/[address] [facility] [address] [facility] [place] [address] Faith Mason MD Care Coordination (ICP Care Plan) 06/07/2024 10:00 AM EST Office Visit [facility] [address] [place], [place] [address] Jacob Shannonaris 06/03/2024 Orders Only [facility] [address] [facility] [place] [place] [address] Faith Mason MD Post-menopausal bleeding (Primary Dx) 05/31/[address] [facility] [address] [place], [place] [address] Faith Mason MD Atrial flutter, unspecified type (CMS/HCC); Diabetic polyneuropathy associated with type 2 diabetes mellitus (CMS/HCC); Polyarthralgia 05/26/2024 9:30 AM EST Office Visit [facility] [address] [place], [place] [address] Faith Mason MD Other constipation (Primary Dx); Essential hypertension; Type 2 diabetes mellitus with hyperglycemia, with long-term current use of insulin (CMS/HCC); Metabolic encephalopathy; Chronic nonintractable headache, unspecified headache type 05/26/2024 Travel 05/19/[address] [facility] [address] [place], [place] [address] Bernice Fitzpatrick, RN Results 05/19/2024 Orders Only [facility] [address] [place], [place] [address] Faith Mason MD Thyroid nodule (Primary Dx) 05/11/2024 3:15 PM EST Office Visit [facility] [address] [place] [address] Faith Mason MD Acute maxillary sinusitis, recurrence not specified (Primary Dx); Type 2 diabetes mellitus with hyperglycemia, with long-term current use of insulin (CMS/HCC); Acute cough 05/11/2024 Travel 05/10/[address] [facility] [address] [place] [address] Faith Mason MD Hospital Follow-up 05/03/[address] [facility] [address] [place] [address] Faith Mason MD Atrial flutter, unspecified type (CMS/HCC); Diabetic polyneuropathy associated with type 2 diabetes mellitus (CMS/HCC); Coronary artery disease involving [place] coronary artery of [place] heart with unstable angina pectoris (CMS/HCC) 05/02/2024 [facility] [address] [place] [address] Faith Mason MD Transition Of Care (Tcm) (HDF unscheduled, SDOH unable to reach LVM) 04/26/2024 [facility] [address] [place], [place] [phone] Faith Mason MD Error (VOID this visit) 04/25/2024 Orders Only GENERIC EXTERNAL DATA DEPARTMENT Provider, Generic External Data 04/05/[address] [facility] [address] [place] [address] Faith Mason MD Atrial flutter, unspecified type (CMS/HCC); Diabetic polyneuropathy associated with type 2 diabetes mellitus (CMS/HCC); Essential hypertension 04/05/2024 [facility] [address] [place], [place] [phone] Faith Mason MD Atrial flutter, unspecified type (CMS/HCC); Diabetic polyneuropathy associated with type 2 diabetes mellitus (CMS/HCC) 04/04/2024 [facility]ill [facility] [address] [place] [address] Faith Mason MD Essential hypertension from Last 3 Months Immunizations Name Administration Dates Next Due Hep B, adult 11/12/2018 Influenza injectable quadriv alent IIV4 with preservative 02/27/2023 Influenza injectable quadrivalent preservative f ree 06/03/2018,03/26/2018 Influenza, IIV3, injectable 03/14/2024 Influenza, Unspecified 02/11/2019 Pneumococcal Polysaccharide PPSV23 04/05/2019 Varicella 03/17/2024 Social History Tobacco Use Types Packs/Day Years Used Date Smoking Tobacco: Never Passive Smoke Exposure: Never Smokeless Tobacco: Never Tobacco Cessation:Counseling Given: Not Answered Alcohol Use Standard Drinks/Week Comments Never 0 [...] not to disclose 2021 10:18 AM EDT Last Filed Vital Signs Vital Sign Reading Time Taken Comments Blood Pressure 159/68 05/26/2024 9:41 AM EST Pulse 69 05/26/2024 9:41 AM EST Temperature 36.6 ??C (97.8 ??F) 05/26/2024 9:41 AM ES T Respiratory Rate 17 05/26/2024 9:41 AM EST Oxygen Saturation 96% 05/26/2024 9:41 AM EST Inhaled Oxygen Concentration - - Weight 101 kg (223 lb) 05/26/2024 9:41 AM EST Height 160 cm (5' 3 ) 05/26/2024 9:41 AM EST Body Mass Index 39.5 05/26/2024 9:41 AM EST Plan of Treatment Upcoming Encounters Date Type Department Care Team (Late st Contact Info) Description 07/29/2024 2:15 PM EST Office Visit [facility] [address] [place] [phone] Kay Mackay MD [address] [place] [address] 09/20/2024 3:00 PM EDT Office Visit [facility] [address] [place] [address] Shiva, Karen [address] [place] [address] Health Maintenance Due Date Last Done Comments CT Colonography 1966 Colonoscopy 1966 Dental Prophylaxis 1966 Dental X-Ray: Full Mouth 1966 FIT 1966 FOBT 1966 Sigmoidoscopy 1966 Diabetes: Foot Exam 1976 Eye Exam 1976 DTaP/Tdap/Td Vaccines (1 - Tdap) 1985 Dental Oral Exam 12/28/2008 06/29/2008 Hepatitis B Vaccines (2 of 3 - 19+ 3-dose series) 12/10/2018 11/12/2018 Pneumococcal Vaccine: 50+ Years (2 of 2 - PCV) 04/05/2020 04/05/2019 Diabetes: Urine Protein Screening 07/23/2021 07/23/2020, 07/23/2020 COVID-19 Vaccine (4 - 2023- season) 2024 05/13/2023, 05/07/2021, 07/05/2020 Dental X-Ray: Bitewings 01/24/2024 01/23/20 23, 06/24/2019, 06/29/2008 Zoster Vaccines (1 of 2) 05/12/2024 Diabetes: Hemoglobin A1C 06/17/2024 024, 11/24/2023, 08/04/2023, Additional history exists Mammogram 07/16/2024 07/16/2023, 02/01/2020 Cervical Cancer Screening 10/12/2024 Pap Smear 10/12/2024 10/13/2023, 07/25/2020 Depression Screening 11/23/2024 11/24/2023, 11/24/19 24 Lipid Panel 11/30/2024 12/01/2023, 09/09/2022 Alcohol/Substance Use Screening 12/23/2024 12/24/2023 SDOH Screening 12/23/2024 12/24/2023 Tobacco Screening 05/26/2025 05/26/2024 Colorectal Cancer Screening 09/16/2026 FIT DNA/Cologuard 09/16/2026 09/17/2023 HPV/Cotest 10/12/2028 10/13/2023, 07/25/2020 RSV Patients and Patients Aged 60 years or older (1 - 1-dose 75+ series) 2041 HIV Screening Completed 01/26/2024 Hepatitis C Screening Completed 01/26/2024 Influenza Vaccine Completed 03/14/2024, , 02/11/2019, Additional history exists HIB Vaccines Aged Out No longer eligi ble based on patient's age to complete this topic HPV Vaccines Aged Out No longer eligi ble based on patient's age to complete this topic Hepatitis A Vaccines Aged Out No long er eligible based on patient's age to complete this topic IPV Vaccines Aged Out No longer eligi ble based on patient's age to complete this topic Meningococcal Vaccine Aged Out No jordan [place] eligible based on patient's age to complete this topic RSV under 20 months Aged Out No longe r eligible based on patient's age to complete this topic Rotavirus Vaccines Aged Out No longer eligible based on patient's age to complete this topic Procedures Procedure Name Priority Date/Time Associated Diagnosis Comments NO CHARGE VISIT Routine 06/07/2024 10:00 AM EST POCT GLUCOSE Routine 05/11/2024 3:36 PM EST Type 2 diabetes mellitus with hyperglycemia, with long-term current use of insulin (CMS/HCC) CTA CHEST PE PROTOCAL Routine 04/28/2024 12:32 AM EST XR CHEST 1 VIEW Routine 04/25/2024 3:20 PM EST SARS COV2/INFLUENZA A/B AND RSV RNA QL NAAT Routine 04/25/2024 1:[address] PELVIS WO CONTRAST Routine 04/25/2024 11:[address] HEAD WO CONTRAST Routine 04/25/2024 1 1:[address] CERVICAL SPINE WO CONTRAST Routine 04/25/2024 11:04 AM EST POCT GLYCATED HEMOGLOBIN, TOTAL Routine 03/17/2024 3:42 PM EDT Type 2 diabetes mellitus with hyperglycemia, with long-term current use of insulin (CMS/HCC) HEPATITIS PANEL, GENERAL Routine 01/26/2024 2:16 PM EDT Screening examination for STI HIV 1/2 ANTIGEN/ANTIBODY, FOURTH GENERATION W/RFL Routine 01/26/2024 2:16 PM EDT Screening examination for STI LIPID PANEL WITH REFLEX TO DIRECT LDL Routine 12/01/2023 1:06 PM EDT Essential hypertension HPV MRNA E6/E7 REFLEX TO HPV 16, 18/45 Routine 10/13/2023 10:05 AM EDT PAP SMEAR Routine 10/13/2023 10:05 AM EDT Cervical cancer screening LAB COLOGUARD?? COLON CANCER SCREEN Routine 09/17/2023 12:00 PM EDT Colon cancer screening BI MAMMOGRAM SCREENING TOMOSYNTHESIS BILATERAL Routine 07/16/2023 11:25 AM EST BITEWING - SINGLE RADIOGRAPHIC IMAGE Routine 01/22/2023 1:00 PM EDT Dental caries ZZZ HISTORICAL MICROALBUMIN, RANDOM Routine 07/23/2020 9:00 AM EST PERIODIC ORAL EVALUATION - ESTABLISHED PATIENT Routine 06/29/2008 12:00 AM EST from Last 3 Months or Most Recently Relevant to Health Maintenance Results * (ABNORMAL) POCT Glucose (05/11/2024 3:36 PM EST) Glucose Blood, POC 279(A) 60 - 200 mg/dL QC Media Lot # [id number] Lot# Expiration Date Blood Capillary blood specimen / Unknown 05/11/2024 3:36 PM EST Faith No MD POINT OF CARE TEST EN TER/EDIT ORDERABLES Final Result * CTA Chest PE Protocal (04/28/2024 12:32 AM EST) Anatomical Region Laterality Modality Body, Chest Computed Tomogra phy 04/28/2024 12:3 2 AM EST Narrative 04/28/2024 9:15 AM EST ? [facility] ?[address] ?[place] [address] ? CT Scan Report ? Signed ? Patient: Madden Colon,Sarah ?MR#: [id number] ?? [id number] ? : 1965 ?Acct:[id number] ? Age/Sex: 59 / F ?ADM Date: 12/02/24 ? Loc: HO.[facility] ?474-1 ? Attending Dr: Delvis Gomez MD ? Ordering Physician: Delvis Gomez MD ?? Date of Service: 04/28/24 ?? Procedure(s): CT angio chest PE protocol ?? Accession Number(s): [id number] ? cc: Delvis Gomez MD; Faith Mason MD ? EXAMINATION: ?? CT ANGIOGRAM CHEST ? CLINICAL INFORMATION: ?? Hypoxemia. Near syncope. ? COMPARISON: ?? CT chest dated May 01, 2022. ? TECHNIQUE: ?? Multiple axial images were obtained through the chest after the ?? administration of 65 mL of Omnipaque 350 intravenous contrast. ?? Extensive vascular post-processing including two-dimensional and ?? three-dimensional reformatted images were created and reviewed on an ?? independent workstation. ? This CT examination was performed using dose optimization techniques as ?? appropriate, variously including the following: ?? *Automated exposure control ?? *Adjustment of mA and/or kV according to patient size (this includes ?? techniques or standardized protocols for targeted exams where dose is ?? matched to indication/reason for exam; i.e. extremities or head) ?? *Use of iterative reconstruction technique ? DLP: ?? 588 mGy-cm ? FINDINGS: ?? Limited by patient's motion artifact. ? No intraluminal filling defects within the main pulmonary artery or its ?? main branches. ?? No aneurysm or dissection, thoracic aorta. ?? Calcified plaques in the thoracic aortic arch the origin of the main ?? branches and the coronary arteries. ?? Bilateral pulmonary mosaic pattern. ?? Multifocal patchy pulmonary groundglass in the periphery of the lower ?? lung lobes, right middle lobe and lingula. ?? Bilateral small volume pleural effusions. ?? No pneumothorax. ?? Prominent lymph nodes in the mediastinum and perihilar likely reactive. ?? No gross pericardial effusion. ?? The heart is enlarged, all 4 chambers. ?? Status post cholecystectomy likely laparoscopic. ?? Calcified plaques throughout the mesenteric arteries and the splenic ?? artery. ?? Small appearance of the left kidney without gross hydronephrosis. ?? Multilevel cervical thoracic and upper lumbar spondylosis without acute ?? fracture or listhesis. No lytic or blastic lesions. ? CT/CT angio chest PE protocol ?? IMPRESSION: ?? No acute pulmonary artery emboli. ?? No aneurysm or dissection, thoracic aorta. ?? Consider pulmonary edema versus multifocal pneumonia. ?? Bilateral small volume pleural effusions. ?? Cardiomegaly. ? Fleischner guidelines were followed. ? Electronically signed by: ??Mariano Delgado MD ??04/28/2024 09:12 AM ?? EST RP ? Dictated By: ?Mariano Stinson MD ? Signed By: ?<Electronically signed by Mariano Lockett MD in OV> ? 04/28/24 0912 ? DD/ 0032 ? TD/TT: 04/28/24 0054 ? Agricultural Equipment Operator: ? Procedure Note Donotuseinterpreter, Image - 04/28/[address] [place] [address] [address] Scan Report Signed Patient: Vidal Dixon#: [id number] : 1965Acct:[id number] Age/Sex: 59 / FADM Date: 04/25/24 Loc: [facility] 474-[address]: Delvis Goemz MD Ordering Physician: Delvis Gomez MD Date of Service: 04/28/24 Procedure(s): CT angio chest PE protocol Accession Number(s): [id number] cc: Delvis Gomez MD; Faith Mason MD EXAMINATION: CT ANGIOGRAM CHEST CLINICAL INFORMATION: Hypoxemia. Near syncope. COMPARISON: CT chest dated May 01, 2022. TECHNIQUE: Multiple axial images were obtained through the chest after the administration of 65 mL of Omnipaque 350 intravenous contrast. Extensive vascular post-processing including two-dimensional and three-dimensional reformatted images were created and reviewed on an independent workstation. This CT examination was performed using dose optimization techniques as appropriate, variously including the following: *Automated exposure control *Adjustment of mA and/or kV according to patient size (this includes techniques or standardized protocols for targeted exams where dose is matched to indication/reason for exam; i.e. extremities or head) *Use of iterative reconstruction technique DLP: 588 mGy-cm FINDINGS: Limited by patient's motion artifact. No intraluminal filling defects within the main pulmonary artery or its main branches. No aneurysm or dissection, thoracic aorta. Calcified plaques in the thoracic aortic arch the origin of the main branches and the coronary arteries. Bilateral pulmonary mosaic pattern. Multifocal patchy pulmonary groundglass in the periphery of the lower lung lobes, right middle lobe and lingula. Bilateral small volume pleural effusions. No pneumothorax. Prominent lymph nodes in the mediastinum and perihilar likely reactive. No gross pericardial effusion. The heart is enlarged, all 4 chambers. Status post cholecystectomy likely laparoscopic. Calcified plaques throughout the mesenteric arteries and the splenic artery. Small appearance of the left kidney without gross hydronephrosis. Multilevel cervical thoracic and upper lumbar spondylosis without acute fracture or listhesis. No lytic or blastic lesions. CT/CT angio chest PE protocol IMPRESSION: No acute pulmonary artery emboli. No aneurysm or dissection, thoracic aorta. Consider pulmonary edema versus multifocal pneumonia. Bilateral small volume pleural effusions. Cardiomegaly. Fleischner guidelines were followed. Electronically signed by: Mariano Delgado MD 04/28/2024 09:12 AM EST RP Dictated By: Mariano Stinson MD Signed By: <Electronically signed by Mariano Lockett MDin OV> 04/28/24 0912 DD/ 0032 TD/TT: 04/28/24 0054 Agricultural Equipment Operator: [facility] External Provider IMG CT PROCEDURES Edited Result - Final * XR Chest 1 View (04/25/2024 3:20 PM EST) Anatomical Region Laterality Modality Chest Radiographic Samira ging 04/25/2024 3:20 PM EST Narrative 04/25/2024 4:45 PM EST ? [facility] ?[address] ?[place] [address] ?XRay Report ? Signed ? Patient: Madden Colon,Sarah ?MR#: [id number] ?? [id number] ? : 1965 ?Acct:[id number] ? Age/Sex: 59 / F ?ADM Date: 12/02/24 ? Loc: HO.ED ? Attending Dr: ? Ordering Physician: Tarun Johnson MD ?? Date of Service: 04/25/24 ?? Procedure(s): XR chest 1V ?? Accession Number(s): [id number] ? cc: Faith Mason MD; Tarun Johnson MD ? EXAMINATION: ?? XR CHEST ? CLINICAL INFORMATION: ?? cough ? COMPARISON: ?? CXR on 04/25/24 ? TECHNIQUE: ?? Frontal view of the chest was obtained. ? FINDINGS: ?? The cardiac silhouette is normal. There is mild diffuse bronchial wall ?? thickening. There are no areas of consolidation. There are no pleural ?? effusions or pneumothoraces. The bones and soft tissues are ?? unremarkable for the patient's age. ? XR/XR chest 1V ?? IMPRESSION: ?? Bronchial wall thickening may be infectious and/or inflammatory in ?? etiology. ? Electronically signed by: ??Gloria Robbins MD ??04/25/2024 04:42 PM EST ? Dictated By: ?Gloria Robbins MD ? Signed By: ?<Electronically signed by Gloria Robbins MD in OV> ? 04/25/24 1642 ? DD/ 1520 ? TD/TT: 04/25/24 1530 ? Agricultural Equipment Operator: PN ? Procedure Note Donleniinterpreter, Image - 04/25/[address] [address] XRay Report Signed Patient: Sarah Dixon#: [id number] : 1965Acct:[id number] Age/Sex: 59 / FADM Date: 04/25/24 Loc: HO.ED Attending Dr: Ordering Physician: Tarun Johnson MD Date of Service: 04/25/24 Procedure(s): XR chest 1V Accession Number(s): [id number] cc: Faith Mason MD; Tarun Johnson MD EXAMINATION: XR CHEST CLINICAL INFORMATION: cough COMPARISON: CXR on 04/25/24 TECHNIQUE: Frontal view of the chest was obtained. FINDINGS: The cardiac silhouette is normal. There is mild diffuse bronchial wall thickening. There are no areas of consolidation. There are no pleural effusions or pneumothoraces. The bones and soft tissues are unremarkable for the patient's age. XR/XR chest 1V IMPRESSION: Bronchial wall thickening may be infectious and/or inflammatory in etiology. Electronically signed by: Gloria Robbins MD 04/25/2024 04:42 PM EST Dictated By: Golria Robbins MD Signed By: <Electronically signed by Gloria Robbins MD in OV> 04/25/24 1642 DD/ 1520 TD/TT: 04/25/24 1530 Agricultural Equipment Operator: KRISTINA [facility] External Provider IMG XR PROCEDURES Final Result * (ABNORMAL) SARS-CoV-2 RNA, Influenza A/B, and RSV RNA, Ql NAAT (04/25/2024 1:00 PM EST) Influenza A PCR NEGATIVE Negative [facility] Influenza B PCR NEGATIVE Negative [facility] Resp Syncy Virus RNA Qual PCR NEGATIVE Negative [facility] SARS COV2 PCR POSITIVE(A) Negative [facility] Comment:All test results mus t be correlated with clinical findings.Negative results do not preclude SARS-CoV2, influenza Avirus, influenza B virus and/or RSV infectionand should not be used as the sole basis for treatment orother patient management decisions. Negative results must becombined with clinical observations, patient history, andepidemiological information.This test has not been evaluated for monitoring treatment ofinfection.This test has been authorized by the FDA under an EmergencyUse Authorization (EUA) for use by authorized laboratories.Testing performed on the [employer] GeneXpert utilizingreal-time RT-PCR.All SARS CoV2 and positive influenza A/B results arereported to [facility]. 04/25/2024 1:00 PM EST 04/25/2024 1:02 PM EST Generic External Data Provider LAB MICROBIOLOGY - GENERAL ORDERABLES Final Result [facility] [address] [place] [address] [phone] * CT Pelvis w/o Contrast (04/25/2024 11:56 AM EST) Anatomical Region Laterality Modality Body, Pelvis Computed Tomogra phy 04/25/2024 11:5 6 AM EST Narrative 04/25/2024 2:49 PM EST ? [facility] ?[address] ?[place] [address] ? CT Scan Report ? Signed ? Patient: Madden Colon,Sarah ?MR#: [id number] ?? [id number] ? : 1965 ?Acct:[id number] ? Age/Sex: 59 / F ?ADM Date: 04/25/24 ? Loc: HO.ED ? Attending Dr: ? Ordering Physician: Tarun Johnson MD ?? Date of Service: 04/25/24 ?? Procedure(s): CT pelvis wo IV con ?? Accession Number(s): [id number] ? cc: Faith Mason MD; Tarun Johnson MD ? EXAMINATION: ?? CT PELVIS WITHOUT CONTRAST ? CLINICAL INFORMATION: ?? Injury. ? COMPARISON: ?? CT dated May 01, 2022. ? TECHNIQUE: ?? Helical scanning was performed with submillimeter collimation through ?? the pelvis. Sagittal and coronal multiplanar 2-D reconstructions were ?? obtained. ? This CT examination was performed using dose optimization techniques as ?? appropriate, variously including the following: ?? *Automated exposure control ?? *Adjustment of mA and/or kV according to patient size (this includes ?? techniques or standardized protocols for targeted exams where dose is ?? matched to indication/reason for exam; i.e. extremities or head) ?? *Use of iterative reconstruction technique ? DLP: ?? 395 mGy-cm ? FINDINGS: ? Limited evaluation of the solid organs and vascular structures due to ?? lack of IV contrast. ? Sacrococcygeus is intact. ?? Bony pelvis is intact. ?? Coxofemoral joints are intact. Normal alignment. ?? Subchondral cyst formation and asymmetric joint space narrowing, ?? coxofemoral joints. ?? Sclerosis in the symphysis pubis. ?? Sclerosis and vacuum phenomenon at the sacroiliac joints. ?? Facet joint hypertrophy L4-5 and L5-S1. ? Vascular complications. ?? Abundant stool, large intestine. ?? No hemoperitoneum, lower pelvic peritoneal cavity. ?? No retroperitoneal hematoma, lower pelvis. ?? Edema pattern in the deep fat planes of the abdominal wall and gluteal ?? regions. ?? Heterogeneous enlarged uterus. ? CT/CT pelvis wo IV con ?? IMPRESSION: ?? No acute fracture, bony pelvis. ?? Atherosclerosis disease. ?? Spondylosis, L4-5 and L5-S1. ? Electronically signed by: ??Mariano Delgado MD ??04/25/2024 02:44 PM ?? EST ? Dictated By: ?Mariano Stinson MD ? Signed By: ?<Electronically signed by Mariano Lockett MD in OV> ? 04/25/24 1444 ? DD/ 1156 ? TD/TT: 04/25/24 1156 ? Agricultural Equipment Operator: ? Procedure Note Donkathi, Image - 04/25/[address] [place] [address] [address] Scan Report Signed Patient: Vidal Dixon#: [id number] : 1965Acct:[id number] Age/Sex: 59 / FADM Date: 04/25/24 Loc: HO.ED Attending Dr: Ordering Physician: Tarun Johnson MD Date of Service: 04/25/24 Procedure(s): CT pelvis wo IV con Accession Number(s): [id number] cc: Faith Mason MD; Tarun Johnson MD EXAMINATION: CT PELVIS WITHOUT CONTRAST CLINICAL INFORMATION: Injury. COMPARISON: CT dated May 01, 2022. TECHNIQUE: Helical scanning was performed with submillimeter collimation through the pelvis. Sagittal and coronal multiplanar 2-D reconstructions were obtained. This CT examination was performed using dose optimization techniques as appropriate, variously including the following: *Automated exposure control *Adjustment of mA and/or kV according to patient size (this includes techniques or standardized protocols for targeted exams where dose is matched to indication/reason for exam; i.e. extremities or head) *Use of iterative reconstruction technique DLP: 395 mGy-cm FINDINGS: Limited evaluation of the solid organs and vascular structures due to lack of IV contrast. Sacrococcygeus is intact. Bony pelvis is intact. Coxofemoral joints are intact. Normal alignment. Subchondral cyst formation and asymmetric joint space narrowing, coxofemoral joints. Sclerosis in the symphysis pubis. Sclerosis and vacuum phenomenon at the sacroiliac joints. Facet joint hypertrophy L4-5 and L5-S1. Vascular complications. Abundant stool, large intestine. No hemoperitoneum, lower pelvic peritoneal cavity. No retroperitoneal hematoma, lower pelvis. Edema pattern in the deep fat planes of the abdominal wall and gluteal regions. Heterogeneous enlarged uterus. CT/CT pelvis wo IV con IMPRESSION: No acute fracture, bony pelvis. Atherosclerosis disease. Spondylosis, L4-5 and L5-S1. Electronically signed by: Mariano Delgado MD 04/25/2024 02:44 PM EST Dictated By: aMriano Stinson MD Signed By: <Electronically signed by Mariano Lockett MDin OV> 04/25/24 1444 DD/ 1156 TD/TT: 04/25/24 1156 Agricultural Equipment Operator: [facility] External Provider IMG CT PROCEDURES Final Result * CT Head w/o Contrast (04/25/2024 11:56 AM EST) Anatomical Region Laterality Modality Head, Neck Computed Tomogra phy 04/25/2024 11:5 6 AM EST Narrative 04/25/2024 2:03 PM EST ? [facility] ?[address] ?[place] [address] ? CT Scan Report ? Signed ? Patient: Madden Colon,Sarah ?MR#: [id number] ?? [id number] ? : 1965 ?Acct:[id number] ? Age/Sex: 59 / F ?ADM Date: 12/02/24 ? Loc: HO.ED ? Attending Dr: ? Ordering Physician: Tarun Johnson MD ?? Date of Service: 04/25/24 ?? Procedure(s): CT head/brain wo IV con ?? Accession Number(s): [id number] ? cc: Faith Mason MD; Tarun Johnson MD ? EXAMINATION: ?? CT HEAD WITHOUT CONTRAST ?? CT CERVICAL SPINE WITHOUT CONTRAST ? CLINICAL INFORMATION: ?? Trauma. ? COMPARISON: ?? CT head from 01/26/2024. ? TECHNIQUE: ?? Contiguous axial imaging was performed from the skull base to vertex ?? without intravenous administration of contrast. Contiguous axial ?? imaging was performed from the upper chest through the skull base ?? without intravenous administration of contrast. Coronal and sagittal ?? reformats were obtained at the acquisition workstation. ? This CT examination was performed using dose optimization techniques as ?? appropriate, variously including the following: ?? *Automated exposure control. ?? *Adjustment of mA and/or kV according to patient size (this includes ?? techniques or standardized protocols for targeted exams where dose is ?? matched to indication/reason for exam; i.e. extremities or head). ?? *Use of iterative reconstruction technique. ? DLP: ?? 1801 mGy-cm ? FINDINGS: ?? Head: ?? There is no evidence of acute intracranial hemorrhage or edematous ?? territorial infarction. [place]-white matter differentiation is preserved. ?? Scattered and partially confluent hypoattenuation in the ?? periventricular and deep white matter are consistent with moderate ?? microangiopathy. Proportional prominence of the ventricles and sulcal ?? spaces without evidence of obstructive hydrocephalus. No abnormal mass ?? effect or midline shift. No extra-axial fluid collections. ? No acute soft tissue or osseous abnormalities. Mild mucosal thickening ?? of the paranasal sinuses. The mastoid air cells and middle ear cavities ?? are clear. ? Cervical Spine: ?? The atlantooccipital and atlantoaxial articulations remain well ?? aligned. Straightening of the normal cervical lordosis. Otherwise, ?? there is anatomic alignment of the vertebral bodies and posterior ?? elements. No evidence of acute fracture or subluxation. The vertebral ?? body heights are maintained. Advanced degenerative disc disease at ?? T1-T2. Moderate degenerative disc disease from C3-C7 with ?? disc-osteophyte complex formation. There appears to be at least mild ?? spinal canal stenoses from C3-C6. Facet and uncovertebral joint ?? arthropathy leads to osseous encroachment on the neural foramina from ?? C3-T2. There is no prevertebral soft tissue swelling. ? The thyroid gland and remaining cervical soft tissues are within normal ?? limits. The lung apices demonstrate no abnormalities. ? CT/CT head/brain wo IV con ?? IMPRESSION: ?? 1. ??No evidence of acute intracranial hemorrhage or edematous ?? territorial infarction. ?? 2. ??No evidence of acute fracture or traumatic subluxation of the ?? cervical spine. ?? 3. ??Moderate underlying microangiopathy and generalized cerebral volume ?? loss. ?? 4. ??Moderate multilevel degenerative spondyloarthropathy of the ?? cervical spine. Most notably on this limited exam without intrathecal ?? contrast, there appears to be at least mild spinal canal stenoses from ?? C3-C6. ? Electronically signed by: ??Tomi Lerma DO ??04/25/2024 02:00 PM EST RP ? Dictated By: ?Tomás Lerma DO ? Signed By: ?<Electronically signed by Tomás Lerma, DO in OV> ? 04/25/24 1400 ? DD/ 1156 ? TD/TT: 04/25/24 1156 ? Agricultural Equipment Operator: JL ? Procedure Note Roseanna, Image - 04/25/[address] [place] [address] [address] Scan Report Signed Patient: Vidal Dixon#: [id number] : 1965Acct:[id number] Age/Sex: 59 / FADM Date: 04/25/24 Loc: HO.ED Attending Dr: Ordering Physician: Tarun Johnson MD Date of Service: 04/25/24 Procedure(s): CT head/brain wo IV con Accession Number(s): [id number] cc: Faith Mason MD; Tarun Johnson MD EXAMINATION: CT HEAD WITHOUT CONTRAST CT CERVICAL SPINE WITHOUT CONTRAST CLINICAL INFORMATION: Trauma. COMPARISON: CT head from 01/26/2024. TECHNIQUE: Contiguous axial imaging was performed from the skull base to vertex without intravenous administration of contrast. Contiguous axial imaging was performed from the upper chest through the skull base without intravenous administration of contrast. Coronal and sagittal reformats were obtained at the acquisition workstation. This CT examination was performed using dose optimization techniques as appropriate, variously including the following: *Automated exposure control. *Adjustment of mA and/or kV according to patient size (this includes techniques or standardized protocols for targeted exams where dose is matched to indication/reason for exam; i.e. extremities or head). *Use of iterative reconstruction technique. DLP: 1801 mGy-cm FINDINGS: Head: There is no evidence of acute intracranial hemorrhage or edematous territorial infarction. [place]-white matter differentiation is preserved. Scattered and partially confluent hypoattenuation in the periventricular and deep white matter are consistent with moderate microangiopathy. Proportional prominence of the ventricles and sulcal spaces without evidence of obstructive hydrocephalus. No abnormal mass effect or midline shift. No extra-axial fluid collections. No acute soft tissue or osseous abnormalities. Mild mucosal thickening of the paranasal sinuses. The mastoid air cells and middle ear cavities are clear. Cervical Spine: The atlantooccipital and atlantoaxial articulations remain well aligned. Straightening of the normal cervical lordosis. Otherwise, there is anatomic alignment of the vertebral bodies and posterior elements. No evidence of acute fracture or subluxation. The vertebral body heights are maintained. Advanced degenerative disc disease at T1-T2. Moderate degenerative disc disease from C3-C7 with disc-osteophyte complex formation. There appears to be at least mild spinal canal stenoses from C3-C6. Facet and uncovertebral joint arthropathy leads to osseous encroachment on the neural foramina from C3-T2. There is no prevertebral soft tissue swelling. The thyroid gland and remaining cervical soft tissues are within normal limits. The lung apices demonstrate no abnormalities. CT/CT head/brain wo IV con IMPRESSION: 1. No evidence of acute intracranial hemorrhage or edematous territorial infarction. 2. No evidence of acute fracture or traumatic subluxation of the cervical spine. 3. Moderate underlying microangiopathy and generalized cerebral volume loss. 4. Moderate multilevel degenerative spondyloarthropathy of the cervical spine. Most notably on this limited exam without intrathecal contrast, there appears to be at least mild spinal canal stenoses from C3-C6. Electronically signed by: Tomi Lerma DO 04/25/2024 02:00 PM EST Dictated By: Tomás Lerma DO Signed By: <Electronically signed by Tomás Lerma DO in OV> 04/25/24 1400 DD/ 1156 TD/TT: 04/25/24 1156 Agricultural Equipment Operator: ALEX [facility] External Provider IMG CT PROCEDURES Final Result * CT Cervical Spine w/o Contrast (04/25/2024 11:04 AM EST) Anatomical Region Laterality Modality Spine, C-spine Computed Tomogra phy 04/25/2024 11:0 4 AM EST Narrative 04/25/2024 2:03 PM EST ? [facility] ?[address] ?[place] [address] ? CT Scan Report ? Signed ? Patient: Chano Colon,Sarah ?MR#: [id number] ?? [id number] ? : 1965 ?Acct:[id number] ? Age/Sex: 59 / F ?ADM Date: 04/25/24 ? Loc: HO.ED ? Attending Dr: ? Ordering Physician: Tarun Johnson MD ?? Date of Service: 04/25/24 ?? Procedure(s): CT cervical spine wo IV con ?? Accession Number(s): [id number] ? cc: Faith Mason MD; Tarun Johnson MD ? EXAMINATION: ?? CT HEAD WITHOUT CONTRAST ?? CT CERVICAL SPINE WITHOUT CONTRAST ? CLINICAL INFORMATION: ?? Trauma. ? COMPARISON: ?? CT head from 01/26/2024. ? TECHNIQUE: ?? Contiguous axial imaging was performed from the skull base to vertex ?? without intravenous administration of contrast. Contiguous axial ?? imaging was performed from the upper chest through the skull base ?? without intravenous administration of contrast. Coronal and sagittal ?? reformats were obtained at the acquisition workstation. ? This CT examination was performed using dose optimization techniques as ?? appropriate, variously including the following: ?? *Automated exposure control. ?? *Adjustment of mA and/or kV according to patient size (this includes ?? techniques or standardized protocols for targeted exams where dose is ?? matched to indication/reason for exam; i.e. extremities or head). ?? *Use of iterative reconstruction technique. ? DLP: ?? 1801 mGy-cm ? FINDINGS: ?? Head: ?? There is no evidence of acute intracranial hemorrhage or edematous ?? territorial infarction. Perea-white matter differentiation is preserved. ?? Scattered and partially confluent hypoattenuation in the ?? periventricular and deep white matter are consistent with moderate ?? microangiopathy. Proportional prominence of the ventricles and sulcal ?? spaces without evidence of obstructive hydrocephalus. No abnormal mass ?? effect or midline shift. No extra-axial fluid collections. ? No acute soft tissue or osseous abnormalities. Mild mucosal thickening ?? of the paranasal sinuses. The mastoid air cells and middle ear cavities ?? are clear. ? Cervical Spine: ?? The atlantooccipital and atlantoaxial articulations remain well ?? aligned. Straightening of the normal cervical lordosis. Otherwise, ?? there is anatomic alignment of the vertebral bodies and posterior ?? elements. No evidence of acute fracture or subluxation. The vertebral ?? body heights are maintained. Advanced degenerative disc disease at ?? T1-T2. Moderate degenerative disc disease from C3-C7 with ?? disc-osteophyte complex formation. There appears to be at least mild ?? spinal canal stenoses from C3-C6. Facet and uncovertebral joint ?? arthropathy leads to osseous encroachment on the neural foramina from ?? C3-T2. There is no prevertebral soft tissue swelling. ? The thyroid gland and remaining cervical soft tissues are within normal ?? limits. The lung apices demonstrate no abnormalities. ? CT/CT cervical spine wo IV con ?? IMPRESSION: ?? 1. ??No evidence of acute intracranial hemorrhage or edematous ?? territorial infarction. ?? 2. ??No evidence of acute fracture or traumatic subluxation of the ?? cervical spine. ?? 3. ??Moderate underlying microangiopathy and generalized cerebral volume ?? loss. ?? 4. ??Moderate multilevel degenerative spondyloarthropathy of the ?? cervical spine. Most notably on this limited exam without intrathecal ?? contrast, there appears to be at least mild spinal canal stenoses from ?? C3-C6. ? Electronically signed by: ??Tomi Lerma DO ??04/25/2024 02:00 PM EST RP ? Dictated By: ?Tomás Lerma DO ? Signed By: ?<Electronically signed by Tomás Lerma DO in OV> ? 04/25/24 1400 ? DD/ 1104 ? TD/TT: 04/25/24 1156 ? Agricultural Equipment Operator: ALEX ? Procedure Note Donotuseinterpreter, Image - 04/25/[address] [address] [address] Scan Report Signed Patient: Vidal Dixon#: [id number] : 1965Acct:[id number] Age/Sex: 59 / FADM Date: 04/25/24 Loc: HO.ED Attending Dr: Ordering Physician: Tarun Johnson MD Date of Service: 04/25/24 Procedure(s): CT cervical spine wo IV con Accession Number(s): [id number] cc: Faith Mason MD; Tarun Johnson MD EXAMINATION: CT HEAD WITHOUT CONTRAST CT CERVICAL SPINE WITHOUT CONTRAST CLINICAL INFORMATION: Trauma. COMPARISON: CT head from 01/26/2024. TECHNIQUE: Contiguous axial imaging was performed from the skull base to vertex without intravenous administration of contrast. Contiguous axial imaging was performed from the upper chest through the skull base without intravenous administration of contrast. Coronal and sagittal reformats were obtained at the acquisition workstation. This CT examination was performed using dose optimization techniques as appropriate, variously including the following: *Automated exposure control. *Adjustment of mA and/or kV according to patient size (this includes techniques or standardized protocols for targeted exams where dose is matched to indication/reason for exam; i.e. extremities or head). *Use of iterative reconstruction technique. DLP: 1801 mGy-cm FINDINGS: Head: There is no evidence of acute intracranial hemorrhage or edematous territorial infarction. Perea-white matter differentiation is preserved. Scattered and partially confluent hypoattenuation in the periventricular and deep white matter are consistent with moderate microangiopathy. Proportional prominence of the ventricles and sulcal spaces without evidence of obstructive hydrocephalus. No abnormal mass effect or midline shift. No extra-axial fluid collections. No acute soft tissue or osseous abnormalities. Mild mucosal thickening of the paranasal sinuses. The mastoid air cells and middle ear cavities are clear. Cervical Spine: The atlantooccipital and atlantoaxial articulations remain well aligned. Straightening of the normal cervical lordosis. Otherwise, there is anatomic alignment of the vertebral bodies and posterior elements. No evidence of acute fracture or subluxation. The vertebral body heights are maintained. Advanced degenerative disc disease at T1-T2. Moderate degenerative disc disease from C3-C7 with disc-osteophyte complex formation. There appears to be at least mild spinal canal stenoses from C3-C6. Facet and uncovertebral joint arthropathy leads to osseous encroachment on the neural foramina from C3-T2. There is no prevertebral soft tissue swelling. The thyroid gland and remaining cervical soft tissues are within normal limits. The lung apices demonstrate no abnormalities. CT/CT cervical spine wo IV con IMPRESSION: 1. No evidence of acute intracranial hemorrhage or edematous territorial infarction. 2. No evidence of acute fracture or traumatic subluxation of the cervical spine. 3. Moderate underlying microangiopathy and generalized cerebral volume loss. 4. Moderate multilevel degenerative spondyloarthropathy of the cervical spine. Most notably on this limited exam without intrathecal contrast, there appears to be at least mild spinal canal stenoses from C3-C6. Electronically signed by: Tomi Lerma DO 04/25/2024 02:00 PM [facility] Dictated By: Tomás Lerma DO Signed By: <Electronically signed by Tomás Lerma DO in OV> 04/25/24 1400 DD/ 1104 TD/TT: 04/25/24 1156 Agricultural Equipment Operator: ALEX [facility] External Provider IMG CT PROCEDURES Final Result * (ABNORMAL) POCT HGB A1C (03/17/2024 3:42 PM EDT) Hemoglobin A1C 7.8(A) 4.0 - 6.0 % QC Media Lot # [id number] Lot# Expiration Date Blood 03/17/2024 3:42 PM EDT Mariam Cheyenne No MD POINT OF CARE TEST EN TER/EDIT ORDERABLES Final Result * Hepatitis Panel, General (01/26/2024 2:16 PM EDT) Hepatitis A IgM REACTIVE (Abnormal) Nonreactive [facility] Comment:For additional infor page, please refer tohttp://CampuScene.SquareTrade/faq/CDC687(This link is being provided for informational/educational purposes only.)THIS TEST PERFORMED AT:[facility] [address] [phone] DIRECTOR: EVITA ALICEA MD ~Hepatitis B Surface Antibody REACTIVE (Abnormal) Nonreactive [facility] Comment:THIS TEST PERFORMED AT:[facility] [address] [phone] DIRECTOR: EVITA ALICEA MD Hepatitis B Core Antibody NON-REACTI VE Nonreactive [facility] Comment:For additional infor page, please refer tohttp://CampuScene.SquareTrade/faq/HCY037(This link is being provided for informational/educational purposes only.)THIS TEST PERFORMED AT:[facility] [address] [phone] DIRECTOR: EVITA ALICEA MD Hepatitis C Antibody NON-REACTI VE Nonreactive [facility] Comment:HCV antibody was non -reactive. There is no laboratoryevidence of HCV infection.In most cases, no further action is required. However,if recent HCV exposure is suspected, a test for HCV RNA(test code 01652) is suggested.For additional information please refer tohttp://CampuScene.SquareTrade/faq/FAO02r3(This link is being provided for informational/educational purposes only.)THIS TEST PERFORMED AT:[facility] [address] [phone] DIRECTOR: EVITA ALICEA MD Hepatitis B Surface Ag NON-REACTI VE Negative [facility] Comment:For additional infor mation, please refer tohttp://CampuScene.SquareTrade/faq/BAT477(This link is being provided for informational/educational purposes only.)THIS TEST PERFORMED AT:[facility] [address] [phone] DIRECTOR: EVITA ALICEA MD Blood 01/26/2024 2:16 PM EDT 01/26/2024 4:08 PM EDT Faith No MD LAB BLOOD ORDERABLES Final Result [facility] [address] [place] [phone] * HIV-1/2 Antigen and Antibodies, Fourth Generation, with Reflexes (01/26/2024 2:16 PM EDT) HIV AB/AG NON-REAC TIVE Nonreactive [facility] Comment:HIV-1 antigen and HI V-1/HIV-2 antibodies were notdetected. There is no laboratory evidence of HIVinfection.PLEASE NOTE: This information has been disclosed toyou from records whose confidentiality may beprotected by state law. If your state requires suchprotection, then the state law prohibits you frommaking any further disclosure of the informationwithout the specific written consent of the personto whom it pertains, or as otherwise permitted by law.A general authorization for the release of medical orother information is NOT sufficient for this purpose.For additional information please refer tohttp://CampuScene.SquareTrade/faq/VJD472(This link is being provided for informational/educational purposes only.)The performance of this assay has not been clinicallyvalidated in patients less than 2 years old.THIS TEST PERFORMED AT:[facility] [address] [phone] DIRECTOR: EVITA ALICEA MD Blood Venous blood specimen / Unknown 01/26/2024 2:16 PM EDT 01/26/2024 4:08 PM EDT us Faith No MD LAB BLOOD ORDERABLES Final Result Performing Organization Address [facility] Co de Phone Number [facility] [address] [place] [phone] * (ABNORMAL) Lipid Panel with Reflex to Direct LDL (12/01/2023 1:06 PM EDT) Triglycerides 81 <150 mg/dL [facility] Comment:Desirable Triglyceri de: less than 150 mg/dLBorderline High Triglyceride 150-199 mg/dLHigh Triglyceride: 200-499 mg/dLVery High Triglyceride: greater than or equal to 5OO mg/dL Cholesterol 77 <200 mg/dL [facility] Comment:Desirable Cholestero l: less than 200 mg/dLBorderline High Cholesterol: 200-239 mg/dLHigh Cholesterol: greater than 239 mg/dL LDL Cholesterol Calculated 30 <100 mg/dL [facility] Comment:Desirable LDL: less than 100 mg/dLNear Optimal/Above Optimal LDL: 110- 129 mg/dLBorderline High LDL: 130-159 mg/dLHigh LDL: 160-189 mg/dLVery High LDL: greater than or equal to 190 mg/dL HDL Cholesterol 31(L) >40 mg/dL [facility] Comment:Desirable HDL: great er than 40 mg/dL Note: This HDL assay may give artificially low results in patients with liver disease. Blood 12/01/2023 1:06 PM EDT 12/01/2023 1:11 PM EDT us Faith No MD LAB BLOOD ORDERABLES Final Result Performing Organization Address [facility]/ZIP Co de Phone Number [facility] [address] [place] [phone] * HPV mRNA E6/E7 w/Reflex to HPV Genotypes 16, 18/45 (10/13/2023 10:05 AM EDT) HPV nRNA E6/E7 Not Detected Not Detected [facility] Comment:Methodology: Transcr iption-Mediated AmplificationThis assay detects E6/E7 viral messenger RNA (mRNA) from 14high-risk HPV types (16,18,31,33,35,39,45,51,52,56,58,59,66,68).Cervical sources are required for HPV testing.If a vaginal source from a patient who has had atotal hysterectomy with removal of cervix wassubmitted, please contact the testing laboratoryfor alternative testing options.For additional information, please refer tohttp://education.SquareTrade/faq/FJT440f2(This link if provided for information/educational purposes only.)THIS TEST WAS PERFORMED AT:[facility] [place] [phone] ALICEA MD HPV mRNA E6/E7 [facility] HPV 16 RNA [facility] HPV 18/45 RNA [facility] 10/13/2023 10:0 5 AM EDT 10/14/2023 11:40 AM EDT us Ofelia Haskins [facility] CYTOLOGY ORDERABLES F inal Result [facility] [address] [place] [phone] * Pap Smear (10/13/2023 10:05 AM EDT) Swab Cervix uteri structure / Unknown 10/13/2023 10:05 AM EDT 10/14/2023 11:40 AM EDT Narrative [facility] - 11/02/2023 10:48 AM EDT ----- ------- Name: Sarah Dixon ? Age/Sex: 58/F ? : 1965 Unit#: [id number] ?? Attend Dr: OFELIA HASKINS CNM ?Re10/13/23 ?Status: DEP REF ? [facility] ? Disch: ? ----- ------- SPEC : [id number] ? RECD: 10/14/23 ? STATUS: ??SOUT ? REQ NUM: [id number] ? NADJA: 10/13/23-5 ? SUBM DR: OFELIA HASKINS CNM ? ENTERED: ??10/14/23-6841 ?SP TYPE: Pap Smr ?OTHR : ? ORDERED: ??Pap Smear ? Interpretation ?? Satisfactory for evaluation. ?? No endocervical cells seen. ?? Negative for intraepithelial lesion or malignancy. ? HPV mRNA E6/E7: ?NOT DETECTED ? This assay detects E6/E7 viral messenger RNA (mRNA) from 14 high-risk HPV types (16, 18, ?? 31, 33, 35, 39, 45, 51, 52, 56, 58, 59, 66, 68) ? HPV testing performed by [employer], [place], [place]. ??See reference laboratory ?? portion of the EMR for entire report. ?Clinical Information LMP:Post menopausal Previous PAP test:Unk ? Material Received ?? ThinPrep-Cervical ----- ------- Signed (signature on file) Debo Schroeder Robbie 11/02/23 1048 ? ----- ------- ? END OF REPORT ? Ofelia Haskins [facility] CYTOLOGY ORDERABLES F inal Result [facility] [address] [place] [phone] * Cologuard?? colon cancer screening (09/17/2023 12:00 PM EDT) Cologuard Result Negative Negative 09/25/19 10:09 AM EDT [facility] (CLIA #:[id number]) Comment: NEGATIVE TEST RESULT. A negative Cologuard result indicates a low likelihood that a colorectal cancer (CRC) or advanced adenoma (adenomatous polyps with more advanced pre-malignant features) ??is present. The chance that a person with a negative Cologuard test has a colorectal cancer is less than 1 in 1500 (negative predictive value >99.9%) or has an ??advanced adenoma is less than ??5.3% (negative predictive value 94.7%). These data are based on a prospective cross-sectional study of 10,000 individuals at average risk for colorectal cancer who were screened with both Cologuard and colonoscopy. (Kacey T. et al, N Engl J Med 2014;370(14):1286- 1297) The normal value (reference range) for this assay is negative. COLOGUARD RE-SCREENING RECOMMENDATION: Periodic colorectal cancer screening is an important part of preventive healthcare for asymptomatic individuals at average risk for colorectal cancer. ??Following a negative Cologuard result, the [place] Cancer Society and U.S. Multi-Society Task Force screening guidelines recommend a Cologuard re-screening interval of 3 years. References: [place] Cancer Society Guideline for Colorectal Cancer Screening: https://www.cancer.org/cancer/cfzuo-xyhenj-ypiiad/gcwlrgfwe-crkfitnqw-pexaosa/ac s-rec ommendations.html.; Maxi MACIAS, Robinson REESE, Barry TateK, Colorectal Cancer Screening: Recommendations for Physicians and Patients from the U.S. Multi-Society Task Force on Colorectal Cancer Screening , Am J Gastroenterology 2017; 112:0595-4474. TEST DESCRIPTION: Composite algorithmic analysis of stool DNA-biomarkers with hemoglobin immunoassay. ?? Quantitative values of individual biomarkers are not reportable and are not associated with individual biomarker result reference ranges. Cologuard is intended for colorectal cancer screening of adults of either sex, 45 years or older, who are at average-risk for colorectal cancer (CRC). Cologuard has been approved for use by the U.S. FDA. The performance of Cologuard was established in a cross sectional study of average-risk adults aged 50-84. Cologuard performance in patients ages 45 to 49 years was estimated by sub-group analysis of near-age groups. Colonoscopies performed for a positive result may find as the most clinically significant lesion: colorectal cancer [4.0%], advanced adenoma (including sessile serrated polyps greater than or equal to 1cm diameter) [20%] or non- advanced adenoma [31%]; or no colorectal neoplasia [45%]. These estimates are derived from a prospective cross-sectional screening study of 10,000 individuals at average risk for colorectal cancer who were screened with both Cologuard and colonoscopy. (Kacey Horne. et al, N Engl J Med 2014;370(14):8619-4711.) Cologuard may produce a false negative or false positive result (no colorectal cancer or precancerous polyp present at colonoscopy follow up). A negative Cologuard test result does not guarantee the absence of CRC or advanced adenoma (pre-cancer). The current Cologuard screening interval is every 3 years. ([place] Cancer Society and U.S. Multi-Society Task Force). Cologuard performance data in a 10,000 patient pivotal study using colonoscopy as the reference method can be accessed at the following location: www.Fishidy.CoContest/results. Additional description of the Cologuard test process, warnings and precautions can be found at www.[employer] Connect[employer] Grouprd.com. Stool specimen (specimen) 09/17/2023 12:00 PM EDT 09/18/2023 10:51 AM EDT Faith No MD LAB MOLECULAR DIAGNOS TICS ORDERABLES Final Result [facility] (CLIA #:[id number]) [place] [address], * BI Mammogram Screening Tomosynthesis Bilateral (07/16/2023 11:25 AM EST) Anatomical Region Laterality Modality Breast Bilateral Mammography 07/16/2023 11:2 5 AM EST Narrative 08/08/2023 10:45 PM EDT ? [facility] ? [address] ?[place] [address] ? Mammography Report ? Signed ? Patient: Madden Colon,Sarah ?MR#: [id number] ?? [id number] ? : 1965 ?Acct:[id number] ? Age/Sex: 58 / F ?ADM Date: 07/16/23 ? Loc: HO.MAMMO ? Attending Dr: Faith No MD ? Ordering Physician: Faith Mason MD ?Results: ?? 1Negative ? Date of Service: 07/16/23 ?Follow Up: 1 Year From Orig ?? inal Mammogram ? Procedure(s): MM tomosynthesis screening BI ?? Accession Number(s): [id number] ? cc: Faith Mason MD ? EXAMINATION: ?? MM SCREENING DIGITAL BREAST TOMOSYNTHESIS, BILATERAL ? CLINICAL INFORMATION: ? Screening. Asymptomatic. ? COMPARISON: ?? Mammography: This study is compared with prior exams dating back to ?? 2019. ? TECHNIQUE: ?? Digital breast tomosynthesis is performed in both the craniocaudal and ?? mediolateral oblique views along with computer-aided detection (CAD). ?? Synthesized 2D images are generated from the tomosynthesis. ? FINDINGS: ?? There are scattered areas of fibroglandular density (ACR BI-RADS breast ?? composition Category b). ? There are no significant masses, abnormal calcifications, or other ?? abnormalities. ? MM/MM tomosynthesis screening BI ?? IMPRESSION: ?? No mammographic evidence of malignancy. ? ASSESSMENT: ? BI-RADS BI-RADS 1 - Negative ? RECOMMENDATION: ?? Routine annual mammography screening. ? 1 year F/U ? This examination should not preclude the clinical evaluation of a ?? suspicious palpable abnormality. ? This patient's information was entered into a reminder system with a ?? target due date for their next mammogram. ? Dictated By: ?Marry Oquendo MD ? Signed By: ?<Electronically signed by Marry Oquendo MD in OV> ? 08/08/232241 ? DD/ 1125 ? TD/TT: ? Agricultural Equipment Operator: ? Procedure Note Roseanna, Image - 08/08/2023 [facility] [address] [place] [address] Mammography Report Signed Patient: Sarah Dixon#: [id number] : 1965Acct:[id number] Age/Sex: 58 / FADM Date: 07/16/23 Loc: HO.MAMMO Attending Dr: Faith No MD Ordering Physician: Faith Mason MDResults: 1Negative Date of Service: 07/16/23Follow Up: 1 Year From Orig inal Mammogram Procedure(s): MM tomosynthesis screening BI Accession Number(s): [id number] cc: Faith Mason MD EXAMINATION: MM SCREENING DIGITAL BREAST TOMOSYNTHESIS, BILATERAL CLINICAL INFORMATION: Screening. Asymptomatic. COMPARISON: Mammography: This study is compared with prior exams dating back to 2019. TECHNIQUE: Digital breast tomosynthesis is performed in both the craniocaudal and mediolateral oblique views along with computer-aided detection (CAD). Synthesized 2D images are generated from the tomosynthesis. FINDINGS: There are scattered areas of fibroglandular density (ACR BI-RADS breast composition Category b). There are no significant masses, abnormal calcifications, or other abnormalities. MM/MM tomosynthesis screening BI IMPRESSION: No mammographic evidence of malignancy. ASSESSMENT: BI-RADS BI-RADS 1 - Negative RECOMMENDATION: Routine annual mammography screening. 1 year F/U This examination should not preclude the clinical evaluation of a suspicious palpable abnormality. This patient's information was entered into a reminder system with a target due date for their next mammogram. Dictated By: Marry Oquendo MD Signed By: <Electronically signed by Marry Oquendo MD in OV> 08/08/23 2242 DD/ 1125 TD/TT: Agricultural Equipment Operator: Faith No MD IMG BI PROCEDURES Fin al Result * MICROALBUMIN, RANDOM (07/23/2020 9:00 AM EST) Creatinine Urine 140.39 mg/dL [facility] Microalbum/Creati nine Ratio Ur 419.5 ug/mg cr [facility] Comment: ?Albumin/Creatinine Ratio Reference Ranges: ? Normal: < 30 ug/mg creatinine ? Microalbuminuria: ??30 - 300 ug/mg creatinine Clinical Albuminuria: ??> 300 ug/mg creatinine Microalbumin Urine 589.0 mg/L [facility] 07/23/2020 9:00 AM EST Historical Provider HISTORICAL/NON ORDERABLE LABS Final Result [facility] [address] [place] [address], from Last 3 Months or Most Recently Relevant to Health Maintenance Insurance [place] [facility] STAND ADULT Care Teams Digital Account Coordinator Relationship Specialty Start Date End Date Faith Mason MD [address] [place] [phone] PCP - General Family Medicine 04/12/19 Linda Peralta Bookstore ClerkLive Truck Technician 06/08/24
--- OUTSIDE RECORDS SUMMARY | 2024-06-23 16:44 | XMS_ITS | Encounter Summary ---
Author Organization [employer] Address [address] [facility] [address] [place] [address] Care Team Providers Care Communications Tower Climber Name Role Phone Faith Mason MD Primary Care Provide r Encounter Details Date Type Department Care Team ([facility] st Contact Info) Description 07/17/2023 Telephone [facility] [address], [place] [phone] Faith Mason MD [address] [place], [place] [phone] Social History Tobacco Use Types Packs/Day Years Used Date Smoking Tobacco: Never Smokeless Tobacco: Never Alcohol Use Standard Drinks/Week Comments Never 0 (1 standard drink = 0.6 oz pur e alcohol) Depression Answer Date Recorded Patient Health Questionnaire-9 Score 14 10/07/2022 Housing Stability Answer Date Recorded What is your housing situation today? I have housing today, but I am worried about losing housing in the future 03/09/[address] you li ve. Do you have problems with any of the following? I am not sure 03/09/2023 Food Insecurity Answer Date Recorded Within the past 12 months, y ou worried that your food would run out before you got money to buy more: Often true 03/09/2023 Within the past 12 months,th e food you bought just didn't last and you didn't have enough money to get more: Often true Transportation Answer Date Recorded In the past 12 months, has l ack of transportation kept you from medical appts, meetings, work or from getting things needed for daily living? No 03/09/2023 Utilities Answer Date Recorded In the past 12 months, has t he electric, gas, oil or water company threatened to shut off services in your home? Already shut Off 03/01/2023 Depression Answer Date Recorded Patient Health Questionnaire-2 Score 6 10/07/2022 Comments Unknown Sex and Gender Information Value Date Recorded [...] Description 07/29/2024 2:15 PM EST Office Visit [facility] [address] [place] [address] Kay Mackay MD [address] [place] [address] 09/20/2024 3:00 PM EDT Office Visit [facility] ADULT DENTAL [address] [place] [address] Shiva, Karen [address] [place] [address] documented as of this encounter Visit Diagnoses Not on filedocumented in this encounter Additional Health Concerns Assessment Noted Time PHQ-9 Depression Total Score: 14 023 2:21 PM EDT documented as of this encounter Care Teams Communications Tower Climber Relationship Specialty Start Date End Date Faith Mason MD [address] [place] [id number] PCP - General Family Medicine 04/12/19 Linda Peralta HypnotherapistMatzo Forming Machine Operator 06/08/24 documented as of this encounter
--- OUTSIDE RECORDS SUMMARY | 2024-06-23 16:44 | XMS_ITS | Data Portability ---
Author Organization [place] - [facility], [facility] Address [address] [place] [address] [id number] [place] [address] Assessment No assessment recorded. Plan of Treatment Reminders Order Date Submit Date Provider Last Modified By Organization Details Last Modified Time Details Appointments None recorded. Lab pap, IG + HPV 2016 017 [facility], [address] [place], [address] 7 07:56:44 Referral None recorded. Procedures None recorded. Surgeries None recorded. Imaging MAMMO, diagnostic, digital, unilateral 2016 017 [email or web address] Not available 7 08:23:09 Medication Orders None recorded. Patient TargetsNo targets recorded. Patient Instructions Encounter Date Encounter Id Patient Instructions Last Modified By Organization Details Last Modified Time 11/04/2016 [id number] Discussed new pap smear guidelines, pt agreeable to screening every 3 years. Encouraged monthly self breast exam, regular exercise, and healthy diet. Check pelvic U/S 2/2 pelvic pain. RTO prn or for annual. Diagnostic mammogram of left breast ordered and screening Mammogram ordered,? ? ?referral sent for? ? ?colonoscopy. [email or web address] Not available 11/04/2016 17:22:45 Reason for Referral None Reported. Results Created Date Observation Date Name Description Value Unit Range Abnormal Flag Note LastModifiedBy Organization Detail LastModifiedTime 11/05/19 17 11/05/2016 pap, IG + HPV HPV result Negati ve negati ve APTIM A HPV assay detec ts 14 high risk HPV types (HPV 16,18 ,31,3 3,35, 39,45 , 51,52 ,56,5 8,59, 66,68 ). The assay is FDA appro guevara for testi ng ThinP rep liqui d Pap vials but not FDA appro guevara for detec ting HPV in SureP ath liqui d Pap speci mens. In-ho use valid ation has shown the assay can detec t all HPV types from this sourc e. Not Available [facility] [address], [place], 11/06/2016 07:56:44 11/05/19 17 11/06/2016 pap, IG + HPV report GYNEC OLOGI BIJU CYTOL OGY REPOR T A. THINP REP PAP (IMAG ER) WITH HPV SCREE N AND REFLE X TO HPV 16,18 /45: SPECI MEN ADEQU ACY: SATIS FACTO RY FOR EVALU ATION . INTER PRETA TION: NEGAT CONSUELO FOR INTRA EPITH ELIAL RJ Tolentino OR CHAZ BISHOP . Elect toshia allcarter Kristine d Out By: DARIO Lock CT( CP) CLINI BIJU INFOR MATIO N: LMP: NI Z01.4 11 Numbe r of vials /slid es submi tted: 1 Speci men sourc e: CERVI X/END OCERV IX Abnor mal Pap Date: NI Autom ated presc reeni ng of all liqui d based speci mens is perfo rmed by the ThinP rep Imagi ng nila Alexis other [place] d. The Pap test is a scree key test with an inher ent false negat consuelo rate. [facility] , [address] [place], [place] CLIA [id number] CL-PO [id number]. Not Available [facility] [address] [place], [place], 11/06/2016 07:56:44 Result Notes None recorded. Problems Name Problem SNOMED Code Status Onset Date Resolution Date Notes Provider Name and Address Organization Details Recorded Time Diabetes mellitus 47880110 Active 2016 Juliana arizmendi, [place] - [facility] 7 15:55:41 Chronic endometritis 16912592 Active 2016 Juliana arizmendi, [place] - [facility] 15:55:49 Problem Notes None recorded. Procedures Surgical History Date Name Laterality Status Provider Name and Address Organization Details Recorded Time 11/04/2016 [id number] completed PAVAN BERNABE, [address] [facility], [address] [facility], [place], [address], [facility] 11/04/2016 17:17:09 11/04/2016 [id number] completed PAVAN KIDD DO [address] [facility], [address] [facility], [place], [address], [facility] 11/04/2016 17:17:05 05/25/1996 Other completed Juliana Gonzales [facility] 11/04/2016 16:01:20 05/25/1996 Other completed Juliana Gonzales [facility] 11/04/2016 16:03:12 Imaging Results None recorded. Procedure Notes None recorded. Medical Equipment None Reported. Allergies No known drug allergies Medications Name Sig Start Date Stop Date Status Note LastModified by Organization Details LastModified Time Lantus Solostar U-100 Insulin active Not Available Not Available Not Available Humalog KwikPen Insulin active Not Available Not Available Not Available Vitals Date Recorded Body height Provider Name an d Address Organization Details Last Updated DateTime 11/04/2016 160.02 cm Juliana Gonzales [facility] 11/04/2016 15:50:44 Date Recorded Body mass index (BMI) Body weight Provider Name and Address Organization Details Last Updated DateTime 11/04/2016 40.4 kg/m2 303667.06 g Juliana Gonzales [facility] 11/04/2016 15:51:33 Date Recorded Systolic blood pressure Diastolic blood pressure Provider Name and Address Organization Details Last Updated DateTime 11/04/2016 132 mm[Hg] 60 mm[Hg] Juliana Gonzales [facility] 11/04/2016 15:53:30 Social History Question Answer Notes LastModified by Organizat ion Details LastModified Time Tobacco Smoking Status [facility]2016 15:58:24 What Is Your Level Of Alcohol Consumption? None Information not available 11/04/2016 Is Blood Transfusion Acceptable In An Emergency? Yes Information not available 11/04/2016 Have You Recently (within The Last 12 Weeks, Or During A Current ) Traveled To Or Lived In A Zika-affected Area? No Information not available 11/04/2016 Sex: Unknown Functional Status None recorded. Mental Status None recorded. Family History Relationship Description Onset Age of this Age Resolved Age Notes LastModified by Organization Details LastModified Time Mother Malignant tumor of breast 72 Not available 2016 15:57:24 Medical History Condition Response Blood clots N Depression Y Defects or Inherited Disease N Anxiety Disorder Y HSV N Endometriosis Y Autoimmune disorder N Thyroid Problems N Kidney or Bladder Problems Y Anemia N Blood Transfusions N Hyperlipidemia N Asthma N Hypertension N Gynecological History Statement/Question Response Current Control Method None Date of LMP 07/12/2016 Obstetrics History GPAL:G 3 P 0 0 3 0 Type Value Spontaneous 3 Living 0 Total 3 Past Encounters Encounter ID Performer Location Encounter Start Date Encounter Closed Date Diagnosis/Indication Diagnosis SNOMED-CT Code Diagnosis ICD10 Code Diagnosis Note [id number] PAVAN KIDD, SHO1 4 [facility] [address] [place] [address] 11/04/2016 15:42:27 11/04/2016 17:00:22 Gynecologic examination 97022909 Z01.411 51 yo annual exam Mass of left breast 1224 111550 9159853 N63 Health Concerns Section Related Observation LastModified by Organization Detai ls LastModified Time None Recorded Concern Status LastModified by Organization Details LastModified Time None Recorded Advance Directives Directive None Recorded Payers Encounter Date Sequence Insurance Name Policy Number Policy [place] Covered Member ID [place] Member ID Guarantor Name 11/04/2016 1 [place] Sarah Madden [id number] Sarah Madden Notes Date Note Type Note Provider Name and Address Organization Details Recorded Time 11/04/2016 text/html [facility] Annual GYNReported bypatient.Menstrua l cycle:Perimenopaus al(LMP 06/2015) Vagina:Normal vaginal discharge Breast:No nipple discharge;Breast Pain Bilateral;Breast lump(left inner breast-getting larger) Current Contraception:Williams gamous relationship Sexual complaints:No pain during intercourse Preventive measures:Encourage self breast examination; Encourage regular exerciseNotes:51 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 Pt is Indonesian speaking only-wants to interpret, declined professional inclusion intern. last Public Health Training Assistant exam was about 5 yrs ago in [place]. c/o B/L breast tenderness for past 5 yrs with more recent? ? ? increase in left breast balls. PAVAN KIDD, DO [address] [facility], [place], [address], [place] [facility] 11/04/2016 17:24:08 OBGyn Episode No OBEpisode recorded.
--- OUTSIDE RECORDS SUMMARY | 2024-06-23 16:44 | XMS_ITS | Encounter Summary ---
Author Organization [employer] Address [address] [facility] [address] [place] [address] Care Team Providers Care Teleservices Representative Name Role Phone Faith Mason MD Primary Care Provide r Reason for Visit * Reason Comments Med Refill Encounter Details Date Type Department Care Team (Late st Contact Info) Description 04/05/2024 Refill [facility] [address] [place], [place] [phone] Faith Mason MD [address] [place] [address] Atrial flutter, unspecified type (CMS/HCC); Diabetic polyneuropathy associated with type 2 diabetes mellitus (CMS/HCC) Social History Tobacco Use Types Packs/Day Years [...] 2:15 PM EST Office Visit [facility] [address] [place] [address] Kay Mackay MD [address] [place] [address] 09/20/2024 3:00 PM EDT Office Visit [facility] ADULT DENTAL [address] [place] [address] Karen Shannon [address] [place] [address] documented as of this encounter Visit Diagnoses Diagnosis Atrial flutter, unspecified type (CMS/HCC) Diabetic polyneuropathy associated with type 2 diabetes mellitus (CMS/HCC) documented in this encounter Additional Health Concerns Assessment Noted Time PHQ-9 Depression Total Score: 6 11/24/19 24 2:35 PM EDT documented as of this encounter Care Teams Teleservices Representative Relationship Specialty Start Date End Date Faith Mason MD [address] [place] [address] PCP - General Family Medicine 04/12/19 Linda Peralta Finishing TechnicianGlass Washer 06/08/24 documented as of this encounter
--- OUTSIDE RECORDS SUMMARY | 2024-06-23 16:44 | XMS_ITS | Encounter Summary ---
Author Organization [employer] Address [address] [place] [address] 7[address] [place] [address] Care Team Providers Care Arresting Gear Operator Name Role Phone Faith Mason MD Primary Care Provide r Reason for Visit * Reason Comments Hospital Follow-up Encounter Details Date Type Department Care Team (Latest Contact Info) Description 05/26/2024 9:30 AM EST Office Visit [facility] [address] [place], [place] [phone] Faith Mason MD [address] [place] [address] Other constipation (Primary Dx); Essential hypertension; Type 2 diabetes mellitus with hyperglycemia, with long-term current use of insulin ([facility]); Metabolic encephalopathy; Chronic nonintractable headache, unspecified headache type Social History Tobacco Use Types Packs/Day Years [...] AM EDT documented as of this encounter Last Filed Vital Signs Vital Sign Reading [...] Mass Index 39.5 05/26/2024 9:41 AM EST documented in this encounter Progress Notes * Faith No MD - 05/26/2024 9:30 AM EST SUBJECTIVE: Sarah Corado is a 59 y.o. year old female who presents for HDF . [facility] [place] Patient presented with complaints of throbbing left-sided ocular/temporal headache, onset [address] showed no acute intracranial pathology. Symptoms resolved after receiving metoclopramide. Instructed to follow with neurologist, and PCP for incidental finding of a thyroid nodule. Discharged home. No medication changes [facility] [place] Patient with ESRD on HD presented after a fall at home, with no syncope or loss of consciousness. Reported feeling weak for several days since a recent COVID diagnosis. Incidental findings of hyperkalemia, admitted for urgent dialysis. Received Lokelma; lisinopril discontinued with resolution. Troponin leak (9157.6 ng/L) diagnosed with NSTEMI. Cardiology consulted, and patient received 48 hours of IV heparin. Gabapentin was discontinued due to encephalopathy. Instructed to follow with cardiology outpatient for cardiac catheterization. Physical therapy recommended STR and SNF, however the patient declined. Discharged home with VNA services and home PT. Medication changes that occurred during hospitalization include: Added: none Changed Metoprolol tartrate 50 mg twice daily decreased to 12.5 mg twice daily Discontinued: gabapentin, lisinopril Acute Concerns: FS in AM 178, patient is being follow closely by endocrinology Patient report constipation states colace does help her a lot Patient has not being follow yet by neurology for headaches, she reports she has an appointment with endocrinology for thyroid nodules and reports she has not being call yet from ENT or dermatology (all referral information will be print for patient) Patient reports she feels back to her baseline, she also tells me she has upcoming appointment for cardiac cath Social History Social History Narrative Not on file Patient Active Problem List Diagnosis Abnormal gait End stage renal failure on dialysis (CMS/HCC) Coronary artery disease involving [place] coronary artery of [place] heart with unstable angina pectoris (CMS/HCC) Asthma Atrial flutter (CMS/HCC) Bronchitis Calculus of kidney Chronic cough Chronic diastolic heart failure (CMS/HCC) Chronic low back pain Dysphonia Dyspnea on exertion Essential hypertension Increased frequency of urination Postmenopausal bleeding Primary osteoarthritis of both knees Rash Recurrent major depression in partial remission (CMS/HCC) Atypical chest pain Urinary tract infectious disease Type 2 diabetes mellitus with hyperglycemia, with long-term current use of insulin (CMS/HCC) Allergies Chronic pain of left ankle Left foot pain Right hip pain Dental caries UTI symptoms Vaginal discharge Encounter for screening mammogram for malignant neoplasm of breast Colon cancer screening Chronic endometritis Diabetic polyneuropathy associated with type 2 diabetes mellitus (CMS/HCC) Encephalopathy Weakness Polyarthralgia GERD (gastroesophageal reflux disease) Thyroid nodule Fibroma Dermatitis of face Screening examination for STI Other constipation Left hip pain Chronic bilateral low back pain Acute bacterial sinusitis Acute intractable headache Preop examination Chronic frontal sinusitis Depression with anxiety Acute maxillary sinusitis Cough Chronic nonintractable headache No family history on file. Review of Systems Constitutional: Negative. HENT: Negative. Respiratory: Negative. Cardiovascular: Negative. Gastrointestinal: Positive for constipation. Negative for abdominal distention, abdominal pain, anal bleeding, blood in stool, diarrhea, nausea, rectal pain and vomiting. OBJECTIVE: Vitals: 05/26/24 0941 BP: (!) 159/68 BP Location: Right arm Patient Position: Sitting BP Cuff Size: Adult Pulse: 69 Resp: 17 Temp: 97.8 ??F (36.6 ??C) TempSrc: Temporal SpO2: 96% Weight: 223 lb (101 kg) Height: 5' 3 (1.6 m) Physical Exam Constitutional: Appearance: Normal appearance. Cardiovascular: Rate and Rhythm: Normal rate and regular rhythm. Pulmonary: Effort: Pulmonary effort is normal. Breath sounds: Normal breath sounds. Abdominal: General: Abdomen is flat. Palpations: Abdomen is soft. Musculoskeletal: Right lower leg: No edema. Left lower leg: No edema. Neurological: General: No focal deficit present. Mental Status: She is alert. Mental status is at baseline. Follow Up: No follow-ups on file. Current Outpatient Medications on File Prior to Visit Medication Sig Dispense Refill [] acetaminophen (Tylenol 8 Hour) 650 MG ER tablet Take 2 tablets (1,300 mg) by mouth every 8 (eight) hours if needed for mild pain for up to 10 days. Do not crush, chew, or split. 30 tablet 0 Alcohol Swabs (Alcohol Prep) 70 % pads USE DIRECTED THREE TIMES DAILY 100 each 11 amLODIPine (Norvasc) 10 MG tablet Take 1 tablet (10 mg) by mouth Once per day. 90 tablet 1 apixaban (Eliquis) 5 MG tablet TAKE 1 TABLET BY MOUTH TWICE DAILY IN THE MORNING AND IN THE JHVEYOF18 tablet 0 Aspirin Low Dose 81 MG EC tablet TAKE 1 TABLET BY MOUTH EVERYDAY AT NOON 90 tablet 3 atorvastatin (Lipitor) 40 MG tablet TAKE 1 TABLET BY MOUTH EVERYDAY AT NOON 90 tablet 1 Blood Glucose Monitoring Suppl (ArcarisStyle Bath Lite) w/Device kit Use to test blood sugar 3 times daily 1 kit 0 Blood Pressure Monitoring (Blood Pressure Cuff) misc Use to take Blood Pressure daily brimonidine (AlphaGAN) 0.2 % ophthalmic solution Administer 1 drop into the left eye 3 times daily. Continuous Glucose Saddle Stitch Operator (ArcarisStyle Tika 3 Blair) device Use as directed Continuous Glucose Sensor (FreeStyle Tika 3 Sensor) misc USE DIRECTED TO TEST BLOOD SUGAR CHANGE EVERY 14 DAYS D3 Super Strength 50 MCG (2000 UT) capsule TAKE 1 CAPSULE BY MOUTH EVERY MORNING 90 capsule 1 FREESTYLE LITE test strip TEST BLOOD SUGAR FOUR TIMES DAILY DIRECTED guaiFENesin 200 MG/10ML liquid Take 10 mL by mouth every 6 (six) hours if needed (take for cough ifneeded). 236 mL 0 HumaLOG KWIKPEN 100 UNIT/ML injection INJECT 8-14 UNITS SUBCUTANEOUSLY THREE TIMES DAILY BEFORE MEALS PER SLIDING SCALE (BS 80-100: 8 units; 101-200: 10 units; 201-300: 12 units; >301 14 units) 15mL 11 hydrALAZINE (Apresoline) 50 MG tablet TAKE 1 TABLET BY MOUTH THREE TIMES DAILY IN THE MORNING, AT NOON, AND IN THE EVENING (for high blood pressure) insulin glargine (Toujeo Max SoloStar) 300 UNIT/ML injection INJECT 28 UNITS SUBCUTANEOUSLY EVERY DAY 6 mL 1 ketorolac (Acular) 0.5 % ophthalmic solution INSTILL 1 DROP AFFECTED EYE(S) THREE TIMES DAILY STARTING 2 DAYS BEFORE SURGERY levocetirizine (Xyzal) 5 MG tablet Take 1 tablet by mouth at bedtime. levothyroxine (Synthroid, Levoxyl) 25 MCG tablet TAKE 1 TABLET BY MOUTH EVERY MORNING 90 tablet 3 loratadine (Claritin) 10 MG tablet Take 1 tablet by mouth in the morning. melatonin 5 MG tablet TAKE 1 TABLET BY MOUTH AT BEDTIME for SLEEP 90 tablet 1 metoprolol tartrate (Lopressor) 25 MG tablet Take 0.5 tablets by mouth 2 times daily. nitroglycerin (Nitrostat) 0.[address] 1 tablet by sublingual route at the first sign of an attack; no more than 3 tabs are recommended within a 15 minute period. Novofine Pen Needle 32G X 6 MM misc USE FOUR TIMES DAILY DIRECTED nystatin (Mycostatin) cream Apply twice daily as needed between skin folds for fungal infection 30 g 1 omeprazole (PriLOSEC) [address] capsule Take 1 capsule (20 mg) by mouth before breakfast. Do not crush or chew. 30 capsule 11 polycarbophil (FiberCon) 625 MG tablet Take 1 tablet (625 mg) by mouth in the morning. 30 tablet 11 prednisoLONE acetate (Pred-Forte) 1 % ophthalmic suspension Administer 1 drop into the left eye 3 times daily. sevelamer carbonate (Renvela) 800 MG tablet TAKE 1 TABLET BY MOUTH THREE TIMES DAILY IN THE MORNING, AT NOON, AND IN THE EVENING WITH FOOD (PARA FOSFATO ALTO) sodium chloride (Gray) 0.65 % nasal spray Administer 1 spray into each nostril if needed for congestion. 30 mL 12 TRUEplus Lancets 33G misc TEST BLOOD SUGAR THREE TIMES DAILY 100 each 11 [DISCONTINUED] amoxicillin (Amoxil) 500 MG capsule Take 1 tab po bid for 10 days 20 capsule 0 [DISCONTINUED] amoxicillin-clavulanate (Augmentin) 500-125 MG tablet Take 1 tablet (500 mg) by mouth 3 times daily for 7 days. 21 tablet 0 [DISCONTINUED] Blood Glucose Monitoring Suppl (FreeStyle Lite) device Inject 1 each under the skin 3 times daily. 1 each 0 [DISCONTINUED] Blood Glucose Monitoring Suppl (FreeStyle Lite) device Inject under the skin 3 timesdaily. Use to test blood sugar three times daily 1 each 0 [DISCONTINUED] FREESTYLE LITE test strip Use to test blood sugar 4 times daily 100 each 12 [DISCONTINUED] gabapentin (Neurontin) 100 MG capsule TAKE 1 CAPSULE BY MOUTH TWICE DAILY IN THE MORNING AND IN THE EVENING 60 capsule 0 [DISCONTINUED] Januvia 25 MG tablet TAKE 1 TABLET BY MOUTH EVERY MORNING [DISCONTINUED] lisinopril 30 MG tablet TAKE 1 TABLET BY MOUTH AT BEDTIME ON THURSDAY, THURSDAY, THURSDAY, AND THURSDAY 68 tablet 3 [DISCONTINUED] metoprolol tartrate (Lopressor) 50 MG tablet Take 1 tablet by mouth twice daily in the morning and in the evening 180 tablet 1 [DISCONTINUED] miconazole (Micatin) 2 % cream Apply topically 2 times daily. Use for 14 days. 42.5 g 1 [DISCONTINUED] sulfamethoxazole-trimethoprim (Bactrim) 400-80 MG tablet Take 1 tablet by mouth every 12 (twelve) hours. 6 tablet 0 [DISCONTINUED] TRUEplus Lancets 33G misc TEST BLOOD SUGAR FOUR TIMES DAILY No current facility-administered medications on file prior to visit. Problem List Items Addressed This Visit Other constipation - Primary I advise more fiber on her diet and try to walk more I prescribed colace Relevant Medications docusate sodium (Colace) 100 MG capsule Essential hypertension I advised low Na diet and take medications as prescribed Type 2 diabetes mellitus with hyperglycemia, with long-term current use of insulin ([facility]) Diabetes is: not controlled but improved, A1c [...] - Follow up: with endocrinology as scheduled Encephalopathy Resolved Chronic nonintractable headache Patient will be follow by neurology , she lost her appointment because she was hospitalized, she will reschedule her appointment, information was given to patient documented in this encounter Miscellaneous Notes * Assessment & Plan Note - Faith No MD - 05/26/2024 10:32 AM EST Associated Problem(s): Essential hypertension I advised low Na diet and take medications as prescribed * Assessment & Plan Note - Faith No MD - 05/26/2024 10:32 AM EST Associated Problem(s): Type 2 diabetes mellitus with hyperglycemia, with long- term current use of insulin ([facility]) Diabetes is: not controlled but improved, A1c [...] - Follow up: with endocrinology as scheduled * Assessment & Plan Note - Faith No MD - 05/26/2024 10:30 AM EST Associated Problem(s): Other constipation I advise more fiber on her diet and try to walk more I prescribed colace * Assessment & Plan Note - Faith No MD - 05/26/2024 10:30 AM EST Associated Problem(s): Encephalopathy Resolved * Assessment & Plan Note - Faith No MD - 05/26/2024 10:29 AM EST Associated Problem(s): Chronic nonintractable headache Patient will be follow by neurology , she lost her appointment because she was hospitalized, she will reschedule her appointment, information was given to patient documented in this encounter Plan of Treatment Upcoming Encounters Date Type Department Care Team ([facility] st Contact Info) Description 07/29/2024 2:15 PM EST Office Visit [facility] [address] [place] [address] Kay Mackay MD [address] [place], [place] [phone] 09/20/2024 3:00 PM EDT Office Visit [facility] ADULT DENTAL [address] [place], [place] [phone] Jacob Shannonaris [address] [place], [place] [phone] documented as of this encounter Visit Diagnoses Diagnosis Other constipation- Primary Essential hypertension Unspecified essential hypertension Type 2 diabetes mellitus with hyperglycemia, with long-term current use of insulin ([facility]) Metabolic encephalopathy Chronic nonintractable headache, unspecified headache type documented in this encounter Additional Health Concerns Assessment Noted Time PHQ-9 Depression Total Score: 6 11/24/19 24 2:35 PM EDT documented as of this encounter Care Teams Arresting Gear Operator Relationship Specialty Start Date End Date Faith Mason MD [address] [place], [place] [phone] PCP - General Family Medicine 04/12/19 documented as of this encounter
--- OUTSIDE RECORDS SUMMARY | 2024-06-23 16:44 | XMS_ITS | Encounter Summary ---
Author Organization [employer] Address [address] [facility] 7[address] [place] [address] Care Team Providers Care Information Security Specialist Name Role Phone Faith Mason MD Primary Care Provide r Reason for Visit * Reason Comments Med Refill Encounter Details Date Type Department Care Team (Late st Contact Info) Description 08/11/2023 Refill [facility] MEDICINE [address] [place], [place] [phone] Faith Mason MD [address] [place], [place] [phone] Social History Tobacco Use Types Packs/Day Years [...] Description 07/29/2024 2:15 PM EST Office Visit [facility] MEDICINE [address] [place] [address] Kay Mackay MD [address] [place] [address] 09/20/2024 3:00 PM EDT Office Visit [facility] ADULT DENTAL [address] [place] [address] Shiva, Karen [address] [place] [address] documented as of this encounter Visit Diagnoses Not on filedocumented in this encounter Additional Health Concerns Assessment Noted Time PHQ-9 Depression Total Score: 14 023 2:21 PM EDT documented as of this encounter Care Teams Information Security Specialist Relationship Specialty Start Date End Date Faith Mason MD [address] [place] [address] PCP - General Family Medicine 04/12/19 Linda Peralta In Processing InstructorHelp Desk Representative 06/08/24 documented as of this encounter
--- OUTSIDE RECORDS SUMMARY | 2024-06-23 16:44 | XMS_ITS | Encounter Summary ---
Author Organization [employer] Address [address] [place] [address] 7t [place] [address] Care Team Providers Care Seasonal Clerk Name Role Phone Faith Mason MD Primary Care Provide r Reason for Visit * Reason Comments Med Change Request Encounter Details Date Type Department Care Team (Late Contact Info) Description 11/28/2022 Refill [facility] MEDICINE [address] [place], [place] [phone] Faith Mason MD [address] [place] [address] Type 2 diabetes mellitus with hyperglycemia, with long-term current use of insulin ([facility]) Social History Tobacco Use Types Packs/Day Years Used Date Smoking Tobacco: Never Smokeless Tobacco: Never Alcohol Use Standard Drinks/Week Comments Never 0 (1 standard drink = 0.6 oz pur e alcohol) Depression Answer Date Recorded Patient Health Questionnaire-9 Score 14 10/07/2022 Depression Answer Date Recorded Patient Health Questionnaire-2 Score 6 10/07/2022 Comments Unknown Sex and Gender Information Value Date Recorded Sex Assigned at Female 03/24/2022 10:18 AM EDT Legal Sex Female 10:18 AM EDT Gender Identity Female 03/24/2022 10:18 AM EDT Sexual Orientation Choose not to disclose 2021 10:18 AM EDT COVID-19 Exposure Response Date Recorded In the last 10 days, have yo u been in contact with someone who was confirmed or suspected to have Coronavirus/COVID-19? No / Unsure 11/28/2022 3:23 PM EDT documented as of this encounter Plan of Treatment Upcoming Encounters Date Type Department Care Team (Late Contact Info) Description 07/29/2024 2:15 PM EST Office Visit [facility] MEDICINE [address] [place] [address] Kay Mackay MD [address] [place] [address] 09/20/2024 3:00 PM EDT Office Visit [facility] ADULT DENTAL [address] [place] [address] Shiva, Karen [address] [place] [address] documented as of this encounter Visit Diagnoses Diagnosis Type 2 diabetes mellitus with hyperglycemia, with long-term current use of insulin ([facility]) documented in this encounter Additional Health Concerns Assessment Noted Time PHQ-9 Depression Total Score: 14 023 2:21 PM EDT documented as of this encounter Care Teams Seasonal Clerk Relationship Specialty Start Date End Date Faith Mason MD [address] [place] [phone] PCP - General Family Medicine 04/12/19 Linda Peralta Gyroscopic Engineering TechnicianHigh School Assistant Football Coach 06/08/24 documented as of this encounter
--- OUTSIDE RECORDS SUMMARY | 2024-06-23 16:44 | XMS_ITS | Encounter Summary ---
Author Organization [facility] Address [address] [place] [phone] Phone Care Team Providers Care Gleason Operator Name Role Phone Ines Zamora MD Primary Care Provider Encounter Details Date Type Department Care Team (Late st Contact Info) Description 05/27/2024 Treatment [facility] [address] [phone] [facility] [phone] Social History Tobacco Use Types Packs/Day Years Used Date Smoking Tobacco: Never Alcohol Use Standard Drinks/Week Comments No 0 (1 standard drink = 0.6 oz pur e alcohol) Comments Unknown Sex and Gender Information Value Date Recorded Sex Assigned at Not on file Legal Sex Female 4:53 PM EST Gender Identity Not on file Sexual Orientation Not on file documented as of this encounter Miscellaneous Notes * Dialysis Note - Sweetie Pandey MD - 05/27/2024 12:00 AM EST Patient: Sarah Corado : 1965 Note Type: Dialysis Rounds-Comp Service Date: 05/27/2024 This patient was personally seen for a complete visit as part of routine monthly dialysis care for end stage renal disease. Attending Architectural Inspector: SWEETIE PANDEY MD Dialysis Location: [facility] Schedule: Shift: 2 OVERVIEW Patient is stable. ADEQUACY ASSESSMENT Kt/V, Natural Log 1.49 (05/04/24) 1.28 (03/30/24) UREA REDUCTION RATIO (%) 74 (05/04/24) 67 (03/30/24) BUN 110 (05/04/24) 49 (03/30/24) BUN Post Dialysis 29 (05/04/24) 16 (03/30/24) Creatinine 11.12 (05/04/24) 6.78 (03/30/24) Bicarbonate (CO2) 15 (05/04/24) 27 (04/26/24) 26 (03/30/24) Sodium 134 (05/04/24) 138 (04/26/24) 135 (03/30/24) ANEMIA ASSESSMENT Hgb 9.5 (05/22/24) 8.6 (05/11/24) 8.4 (05/04/24) Iron Saturation (TSat) 95 (05/04/24) 33 (03/30/24) Ferritin 1,593 (03/30/24) Iron 215 (05/04/24) 79 (03/30/24) TIBC 225 (05/04/24) 238 (03/30/24) MCV 98.4 (05/04/24) 98.7 (03/30/24) Platelets 188 (05/04/24) 195 (03/30/24) BMM ASSESSMENT Calcium, Adjusted Total 9.5 05/04/24 9.9 03/30/24 Calcium 9.5 05/04/24 9.9 03/30/24 Phosphorus, Serum 5.8 05/13/24 7.3 05/04/24 4.3 04/11/24 Ca*PO4 69.4 05/04/24 33.7 03/30/24 Magnesium 2.6 05/04/24 2.2 03/30/24 Alkaline Phosphatase 112 05/04/24 100 03/30/24 NUTRITION ASSESSMENT Albumin 4.0 05/04/24 4.0 03/30/24 Potassium 4.6 05/13/24 6.3 05/04/24 4.2 04/26/24 ADDITIONAL LABS White Blood Cells 10.2 (05/04/24) 6.6 (03/30/24) Hep B Surface Antibody 25 (05/04/24) ADDITIONAL COMMENT COMMENTS: 05/24/24 stable 05/27/24 doing ok 01/27/24 stable 02/01/24 c/o eye pain after catract surg and has appt 02/0202/08/24 doing better 02/15/24 has appt w optho re L eye 02/29/24 cont eye pain, f/u with optho 03/16/24 eye pain resolved 03/28/24 stable 04/04/24. Has optho surg next week 04/11/24 stable 04/19/24 doing ok Signed by: SWEETIE PANDEY MD on 05/28/2024 at 03:20:58 AM Transcribed by: SWEETIE PANDEY MD on 05/28/2024 at 03:20:58 AM documented in this encounter Plan of Treatment Not on file documented as of this encounter Visit Diagnoses Not on filedocumented in this encounter Care Teams Gleason Operator Relationship Specialty Start Date End Date Ines Zamora MD [address] [place] [id number] PCP - General 06/04/20 documented as of this encounter
--- OUTSIDE RECORDS SUMMARY | 2024-06-23 16:44 | XMS_ITS | Encounter Summary ---
Author Organization [employer] Address [address] [facility] 7t [place] [address] Care Team Providers Care Business Continuity Planner Name Role Phone Faith Mason MD Primary Care Provide r Reason for Visit * Reason Onset Date Comments FYI 08/13/2023 Encounter Details Date Type Department Care Team ([facility] st Contact Info) Description 08/13/2023 Telephone [facility] [address] [place], [place] [phone] Faith Mason MD [address] [place] [address] FYI Social History Tobacco Use Types Packs/Day Years [...] AM EDT documented as of this encounter Miscellaneous Notes * Telephone Encounter - Brenna Mehta - 08/13/2023 3:23 PM EDT Tc from [facility] with [facility] calling to inform PCP pt was admitted today 08/12 for PT and is going to be seen twice a week as of today. Any questions contact Tameka at [phone] documented in this encounter Plan of Treatment Upcoming Encounters Date Type Department Care Team (Late st Contact Info) Description 07/29/2024 2:15 PM EST Office Visit [facility] MEDICINE [address] [place] [phone] Kay Mackay MD [address] [place] [address] 09/20/2024 3:00 PM EDT Office Visit [facility] ADULT DENTAL [address] [place] [address] Karen Shannon [address] [place] [address] documented as of this encounter Visit Diagnoses Not on filedocumented in this encounter Additional Health Concerns Assessment Noted Time PHQ-9 Depression Total Score: 14 023 2:21 PM EDT documented as of this encounter Care Teams Business Continuity Planner Relationship Specialty Start Date End Date Faith Mason MD [address] [place] [phone] PCP - General Family Medicine 04/12/19 Linda Peralta Supervisor Coke HandlingAuto Locator 06/08/24 documented as of this encounter
--- OUTSIDE RECORDS SUMMARY | 2024-06-23 16:44 | XMS_ITS | Encounter Summary ---
Author Organization [employer] Address [address] [place] [address] 7t [place] [address] Care Team Providers Care Pump Servicer Supervisor Name Role Phone Faith Mason MD Primary Care Provide r Reason for Visit * Reason Comments Med Refill Encounter Details Date Type Department Care Team (Late st Contact Info) Description 05/31/2024 Refill [facility] MEDICINE [address] [place], [place] [phone] Faith Mason MD [address] [place] [address] Atrial flutter, unspecified type (CMS/HCC); Diabetic polyneuropathy associated with type 2 diabetes mellitus (CMS/HCC); Polyarthralgia Social History Tobacco Use Types Packs/Day Years [...] 2:15 PM EST Office Visit [facility] MEDICINE [address] [place] [address] Kay Mackay MD [address] [place] [address] 09/20/2024 3:00 PM EDT Office Visit [facility] ADULT DENTAL [address] [place] [address] Karen Shannon [address] [place] [address] documented as of this encounter Visit Diagnoses Diagnosis Atrial flutter, unspecified type (CMS/HCC) Diabetic polyneuropathy associated with type 2 diabetes mellitus (CMS/HCC) Polyarthralgia Pain in joint, multiple sites documented in this encounter Additional Health Concerns Assessment Noted Time PHQ-9 Depression Total Score: 6 11/24/19 24 2:35 PM EDT documented as of this encounter Care Teams Pump Servicer Supervisor Relationship Specialty Start Date End Date Faith Mason MD [address] [place] [phone] PCP - General Family Medicine 04/12/19 documented as of this encounter
--- OUTSIDE RECORDS SUMMARY | 2024-06-23 16:44 | XMS_ITS | Encounter Summary ---
Author Organization [employer] Address [address] [place] [address] 7t [place] [address] Care Team Providers Care Hydroelectric Station Chief Name Role Phone Faith Mason MD Primary Care Provide r Reason for Referral * Consultation (Urgent) - Authorized Specialty Diagnoses / Procedures Referred By Contanup t Referred To Contact Obstetrics and Gynecology Diagnoses Post-menopausal bleeding Faith Mason MD [address] [place] [address] Phone: tel: fax: [facility] Women? s Services [address] 5[address] Floor [address] (Main Hospital Entrance) [place], [place] Phone: tel: fax: Referral ID Status Reason Start Date Expiration Date Visits Requested Visits Authorized [id number] Authorized Specialty Services Required 06/03/2024 06/03/2025 9 9 Encounter Details Date Type Department Care Team (Late st Contact Info) Description 06/03/2024 Orders Only [facility] MEDICINE [address] [place] [phone] Faith Mason MD [address] [place] [address] Post-menopausal bleeding (Primary Dx) Social History Tobacco Use Types Packs/Day Years [...] Description 07/29/2024 2:15 PM EST Office Visit [facility] MEDICINE [address] [place] [address] Kay Mackay MD [address] [place] [address] 09/20/2024 3:00 PM EDT Office Visit [facility] ADULT DENTAL [address] [place], [place] [phone] Karen Shannon [address] [place] [address] Scheduled Referrals Name Type Priority Associated Diagnoses Order Schedule Referral to Obstetrics / Gynecology Outpatient Referral Urgent Post-menopausal bleeding Expected: 06/03/2024 (Approximate), Expires: 06/03/2025 documented as of this encounter Visit Diagnoses Diagnosis Post-menopausal bleeding- Primary Postmenopausal bleeding documented in this encounter Additional Health Concerns Assessment Noted Time PHQ-9 Depression Total Score: 6 11/24/19 24 2:35 PM EDT documented as of this encounter Care Teams Hydroelectric Station Chief Relationship Specialty Start Date End Date Faith Mason MD [address] [place], [place] [phone] PCP - General Family Medicine 04/12/19 documented as of this encounter
--- OUTSIDE RECORDS SUMMARY | 2024-06-23 16:44 | XMS_ITS | Encounter Summary ---
Author Organization [employer] Address [address] [facility] 7t [place] [address] Care Team Providers Care Rehab Director Occupational Therapist Name Role Phone Faith Mason MD Primary Care Provide r Reason for Visit * Reason Comments Med Refill Encounter Details Date Type Department Care Team (Late st Contact Info) Description 04/04/2024 Refill [facility] MED & PEDS [address] [place], [place] [phone] Faith Mason MD [address] [place] [address] Essential hypertension Social History Tobacco Use Types Packs/Day Years [...] Description 07/29/2024 2:15 PM EST Office Visit [facility] MEDICINE [address] [place] [address] Kay Mackay MD [address] [place] [address] 09/20/2024 3:00 PM EDT Office Visit [facility] ADULT DENTAL [address] [place] [address] Karen Shannon [address] [place] [address] documented as of this encounter Visit Diagnoses Diagnosis Essential hypertension Unspecified essential hypertension documented in this encounter Additional Health Concerns Assessment Noted Time PHQ-9 Depression Total Score: 6 11/24/19 24 2:35 PM EDT documented as of this encounter Care Teams Rehab Director Occupational Therapist Relationship Specialty Start Date End Date Faith Mason MD [address] [place] [address] PCP - General Family Medicine 04/12/19 Linda Peralta Precision Optics TechnicianField Artillery Targeting Technician 06/08/24 documented as of this encounter
--- OUTSIDE RECORDS SUMMARY | 2024-06-23 16:44 | XMS_ITS | Encounter Summary ---
Author Organization [facility] Address [address] [place] [phone] Phone Care Team Providers Care Prevention Coordinator Name Role Phone Ines Zamora MD Primary Care Provider Encounter Details Date Type Department Care Team (Late st Contact Info) Description 05/24/2024 Treatment [facility] [address] [phone] Sweetie Pandey MD [facility] [phone] Social History Tobacco Use Types [...] Dialysis Note - Sweetie Pandey MD - 05/24/2024 12:00 AM EST Patient: Sarah Corado : 1965 Note Type: Dialysis Rounds-Basic Telehealth Service Date: 05/24/2024 Telehealth encounter using audiovisual technology, performed according to state requirements. Appropriate patient consent obtained. This patient was personally seen for a basic visit as part of routine monthly dialysis care for end stage renal disease. Attending Supercharger Mechanic: SWEETIE PANDEY MD Dialysis Location: [facility] DIALYS[facility] Schedule: Shift: 2 ADEQUACY ASSESSMENT Kt/V, Natural Log 1.49 (05/04/24) 1.28 (03/30/24) UREA REDUCTION RATIO (%) 74 (05/04/24) 67 (03/30/24) BUN 110 (05/04/24) 49 (03/30/24) BUN Post Dialysis 29 (05/04/24) 16 (03/30/24) Creatinine 11.12 (05/04/24) 6.78 (03/30/24) Bicarbonate (CO2) 15 (05/04/24) 27 (04/26/24) 26 (03/30/24) Sodium 134 (05/04/24) 138 (04/26/24) 135 (03/30/24) ANEMIA ASSESSMENT Hgb 8.6 (05/11/24) 8.4 (05/04/24) 9.9 (04/17/24) Iron Saturation (TSat) 95 (05/04/24) 33 (03/30/24) [...] 25 (05/04/24) ADDITIONAL COMMENT COMMENTS: 05/24/24 stable 01/27/24 stable 02/01/24 c/o eye pain after catract surg and has appt 02/0202/08/24 doing better 02/15/24 has appt w optho re L eye 02/29/24 cont eye pain, f/u with optho 03/16/24 eye pain resolved 03/28/24 stable 04/04/24. Has optho surg next week 04/11/24 stable 04/19/24 doing ok Signed by: SWEETIE PANDEY MD on 05/24/2024 at 02:00:31 PM Transcribed by: SWEETIE PANDEY MD on 05/24/2024 at 02:00:31 PM documented in this encounter Plan of Treatment Not on file documented as of this encounter Visit Diagnoses Not on filedocumented in this encounter Care Teams Prevention Coordinator Relationship Specialty Start Date End Date Ines Zamora MD [address] [place] [phone] PCP - General 06/04/20 documented as of this encounter
--- OUTSIDE RECORDS SUMMARY | 2024-06-23 16:44 | XMS_ITS | Encounter Summary ---
Author Organization [employer] Address [address] [facility] 7t [place] [address] Care Team Providers Care Superintendent Mechanical Name Role Phone Faith Mason MD Primary Care Provide r Encounter Details Date Type Department Care Team ([facility] st Contact Info) Description 03/08/2024 Orders Only [facility] MEDICINE [address] [place], [place] [phone] Faith Mason MD [address] [place] [address] Social History Tobacco Use Types Packs/Day Years [...] Description 07/29/2024 2:15 PM EST Office Visit [facility] MEDICINE [address] [place] [phone] Kay Mackay MD [address] [place] [address] 09/20/2024 3:00 PM EDT Office Visit [facility] ADULT DENTAL [address] [place] [phone] Jacob Shannonaris [address] [place] [address] documented as of this encounter Visit Diagnoses Not on filedocumented in this encounter Additional Health Concerns Assessment Noted Time PHQ-9 Depression Total Score: 6 11/24/19 24 2:35 PM EDT documented as of this encounter Care Teams Superintendent Mechanical Relationship Specialty Start Date End Date Faith Mason MD [address] [place] [address] PCP - General Family Medicine 04/12/19 Linda Peralta Metal Tank ErectorNetwork Project Manager 06/08/24 documented as of this encounter
--- OUTSIDE RECORDS SUMMARY | 2024-06-23 16:44 | XMS_ITS | Encounter Summary ---
Author Organization [employer] Address [address] [facility] 7t [place] [address] Care Team Providers Care Furrier Designer Name Role Phone Faith Mason MD Primary Care Provide r Encounter Details Date Type Department Care Team (Late st Contact Info) Description 06/07/2024 10:00 AM EST Office Visit [facility] ADULT DENTAL [address] [place], [place] [phone] Shiva Karen [address] [place] [address] Social History Tobacco Use Types Packs/Day Years [...] AM EDT documented as of this encounter Progress Notes * Karen Shannon - 06/07/2024 10:00 AM EST Patient came to the appoint to let me know that she feels nauseous and has stomach pain. She will like to R/S this appoint . NIMISHA Oviedo documented in this encounter Plan of Treatment Upcoming Encounters Date Type Department Care Team (Late st Contact Info) Description 07/29/2024 2:15 PM EST Office Visit [facility] MEDICINE [address] [place] [phone] Kay Mackay MD [address] [place] [address] 09/20/2024 3:00 PM EDT Office Visit [facility] ADULT DENTAL [address] [place], [place] [phone] Karen Shannon [address] [place] [address] Scheduled Orders Name Type Priority Associated Diagnoses Orde r Schedule PROPHYLAXIS - ADULT Dental Routine 1 Occ urrences starting 06/07/2024 INTRAORAL - COMPLETE SERIES OF RADIOGRAPHIC IMAGES Dental Routine [address] arting 06/07/2024 ORAL HYGIENE INSTRUCTIONS Dental Routine 1 Occurrences starting 06/07/2024 documented as of this encounter Procedures Procedure Name Priority Date/Time Associated Diagnosis Comments NO CHARGE VISIT Routine 06/07/2024 10:00 AM EST documented in this encounter Visit Diagnoses Not on filedocumented in this encounter Additional Health Concerns Assessment Noted Time PHQ-9 Depression Total Score: 6 11/24/19 24 2:35 PM EDT documented as of this encounter Care Teams Furrier Designer Relationship Specialty Start Date End Date Faith Mason MD [address] [place] [address] PCP - General Family Medicine 04/12/19 documented as of this encounter
--- OUTSIDE RECORDS SUMMARY | 2024-06-23 16:44 | XMS_ITS | Clinical Summary ---
Author Organization [facility] Address [address] [phone] Phone Care Team Providers Care Etymology Professor Name Role Phone Ines Zamora MD Primary Care Provider [phone] Medications lisinopril 10 MG tabletIndicatio ns:Stage 3 chronic kidney disease, not otherwise specified (HCC),Type 2 diabetes mellitus with diabetic chronic kidney disease (HCC),Iron deficiency anemia, not otherwise specified,Hyper tension TAKE 1 TABLET BY MOUTH AT BEDTIME (for high blood pressure) 30 tablet 11 12/11/2021 Active gabapentin (NEURONTIN) 100 MG capsule TAKE 2 CAPSULES BY MOUTH TWICE DAILY IN THE MORNING AND AT BEDTIME (for nerve pain) 120 capsule 11 02/02/2023 Active hydrALAZINE 50 MG tablet TAKE 1 TABLET BY MOUTH THREE TIMES DAILY IN THE MORNING, AT NOON, AND IN THE EVENING (for high blood pressure) 90 tablet 11 05/05/2023 Active sevelamer carbonate (RENVELA) 800 MG tablet TAKE 1 TABLET BY MOUTH THREE TIMES DAILY IN THE MORNING, AT NOON, AND IN THE EVENING WITH FOOD 270 tablet 01/13/2024 Active Encounters Date Type Department Care Team Description 05/27/2024 Treatment [facility] [address] [id number] Jeffy Tineo MD 05/24/2024 Treatment [facility] [address] [phone] Jeffy Tineo MD 05/09/2024 Treatment [facility] [address] [phone] Jeffy Tineo MD 04/19/2024 Treatment [facility] [address] [phone] Jeffy Tineo MD 04/13/2024 Orders Only [facility] [address] [phone] Jeffy Tineo MD 04/11/2024 Treatment [facility] [address] [phone] Jeffy Tineo MD 04/09/2024 Treatment [facility] [address] [phone] Alber Rothman MD 04/04/2024 Treatment [facility] [address] [phone] Jeffy Tineo MD 03/28/2024 Treatment [facility] [address] [phone] Jeffy Tineo MD from Last 3 Months Family History Medical History Relation Comments Diabetes Father Cancer Mother Diabetes Mother Heart disease Mother Hypertension Mother Kidney disease Mother GF Relation Status Comments Father Unknown Mother Unknown Social History Tobacco Use Types Packs/Day Years Used Date Smoking Tobacco: Never Alcohol Use Standard Drinks/Week Comments No 0 (1 standard drink = 0.6 oz pur e alcohol) Comments Unknown Sex and Gender Information Value Date Recorded Sex Assigned at Not on file Legal Sex Female 4:53 PM EST Gender Identity Not on file Sexual Orientation Not on file Last Filed Vital Signs Vital Sign Reading Time Taken Comments Blood Pressure 156/62 10/25/2018 12:00 PM EDT Pulse 75 10/25/2018 12:00 PM EDT Temperature - - Respiratory Rate - - Oxygen Saturation 99% 10/25/2018 12:00 PM EDT Inhaled Oxygen Concentration - - Weight 106 kg (234 lb) 10/25/2018 12:00 PM EDT Height 160 cm (5' 3 ) 10/25/2018 12:00 PM EDT Body Mass Index 41.45 10/25/2018 12:00 PM EDT Plan of Treatment Health Maintenance Due Date Last Done Comments Breast Cancer Screening 1966 Pneumococcal Vaccine: Pediat rics (0 to 5 Years) and At-Risk Patients (6 to 64 Years) (1 of 2 - PCV) 1972 Hepatitis B Vaccine (1 of 5 - Risk Dialysis 4-dose series) 1986 Colorectal Cancer Screening: Annual FOBT 2015 Colorectal Cancer Screening: Colonoscopy 2015 Colorectal Cancer Screening: Sigmoidoscopy 2015 Diabetes: Ophthalmology Exam 11/14/2020 Diabetes: Pedal Pulse Checked 11/14/2020 Diabetes: Sensory Foot Exam 11/14/2020 Diabetes: Visual Foot Exam 11/14/2020 Influenza Vaccine (#1) 2024 Diabetes: Hemoglobin A1C 08/30/2024 025, 07/05/2020, 01/04/2020, Additional history exists Procedures Procedure Name Priority Date/Time Associated Diagnosis Comments HEMOGLOBIN AND HEMATOCRIT, BLOOD Routine 06/22/2024 3:00 AM EST LIH (HC) Routine 06/17/2024 3:00 AM EST CALCIUM, ADJUSTED W ALBUMIN Routine 06/17/2024 3:00 AM EST HEMOGLOBIN AND HEMATOCRIT, BLOOD Routine 06/17/2024 3:00 AM EST HEMOGLOBIN AND HEMATOCRIT, BLOOD Routine 06/08/2024 3:00 AM EST ALUMINUM LEVEL Routine 06/01/2024 3:00 AM EST CONFIRMATION TEST HCV Routine 06/01/2024 3:00 AM EST HEPATITIS C ABS W/REFLEX RNA DETECTR Routine 06/01/2024 3:00 AM EST URIC ACID Routine 06/01/2024 3:00 AM EST TRANSFERRIN SATURATION Routine 3:00 AM EST PROTEIN, TOTAL, SERUM Routine 06/01/2024 3:00 AM EST MAGNESIUM Routine 06/01/2024 3:00 AM EST ELECTROLYTE PANEL Routine 06/01/2024 3:0 0 AM EST LIPID PANEL Routine 06/01/2024 3:00 AM EST LIH (HC) Routine 06/01/2024 3:00 AM EST LACTATE DEHYDROGENASE Routine 06/01/2024 3:00 AM EST CREATININE, SERUM Routine 06/01/2024 3:0 0 AM EST GLUCOSE, RANDOM Routine 06/01/2024 3:00 AM EST BILIRUBIN, TOTAL Routine 06/01/2024 3:00 AM EST AST Routine 06/01/2024 3:00 AM EST ALT Routine 06/01/2024 3:00 AM EST CALCIUM PHOSPHORUS PRODUCT, ADJUSTED (HC) Routine 06/01/2024 3:00 AM EST ALKALINE PHOSPHATASE Routine 06/01/2024 3:00 AM EST VITAMIN D 25 HYDROXY Routine 06/01/2024 3:00 AM EST PTH, INTACT Routine 06/01/2024 3:00 AM EST FERRITIN Routine 06/01/2024 3:00 AM EST HEPATITIS B SURFACE ANTIBODY QUANT Routine 06/01/2024 3:00 AM EST HEMOGLOBIN A1C Routine 06/01/2024 3:00 AM EST CBC AND DIFFERENTIAL Routine 06/01/2024 3:00 AM EST KT/V NATURAL LOG, URR () Routine 06/01/2024 3:00 AM EST HEMOGLOBIN AND HEMATOCRIT, BLOOD Routine 05/22/2024 3:00 AM EST PHOSPHATE ( PHOSPHORUS) Routine 05/13/2024 3:00 AM EST LIH () Routine 05/13/2024 3:00 AM EST POTASSIUM Routine 05/13/2024 3:00 AM EST HEMOGLOBIN AND HEMATOCRIT, BLOOD Routine 05/11/2024 3:00 AM EST TRANSFERRIN SATURATION Routine 3:00 AM EST PROTEIN, TOTAL, SERUM Routine 05/04/2024 3:00 AM EST MAGNESIUM Routine 05/04/2024 3:00 AM EST ELECTROLYTE PANEL Routine 05/04/2024 3:0 0 AM EST LACTATE DEHYDROGENASE Routine 05/04/2024 3:00 AM EST LIH () Routine 05/04/2024 3:00 AM EST CREATININE, SERUM Routine 05/04/2024 3:0 0 AM EST GLUCOSE, RANDOM Routine 05/04/2024 3:00 AM EST AST Routine 05/04/2024 3:00 AM EST BILIRUBIN, TOTAL Routine 05/04/2024 3:00 AM EST ALT Routine 05/04/2024 3:00 AM EST CALCIUM PHOSPHORUS PRODUCT, ADJUSTED (HC) Routine 05/04/2024 3:00 AM EST ALKALINE PHOSPHATASE Routine 05/04/2024 3:00 AM EST HEPATITIS B SURFACE ANTIBODY QUANT Routine 05/04/2024 3:00 AM EST KT/V NATURAL LOG, URR (HC) Routine 05/04/2024 3:00 AM EST CBC AND DIFFERENTIAL Routine 05/04/2024 3:00 AM EST ELECTROLYTE PANEL Routine 04/26/2024 1:4 0 AM EST HEMOGLOBIN AND HEMATOCRIT, BLOOD Routine 04/17/2024 3:00 AM EST HEMOGLOBIN AND HEMATOCRIT, BLOOD Routine 04/13/2024 3:00 AM EST PHOSPHATE ( PHOSPHORUS) Routine 04/11/2024 3:00 AM EST LIH (HC) Routine 04/11/2024 3:00 AM EST HEMOGLOBIN AND HEMATOCRIT, BLOOD Routine 04/06/2024 3:00 AM EST PHOSPHATE ( PHOSPHORUS) Routine 04/04/2024 3:00 AM EST LIH (HC) Routine 04/04/2024 3:00 AM EST TRANSFERRIN SATURATION Routine 3:00 AM EST PROTEIN, TOTAL, SERUM Routine 03/30/2024 3:00 AM EST MAGNESIUM Routine 03/30/2024 3:00 AM EST ELECTROLYTE PANEL Routine 03/30/2024 3:0 0 AM EST LIH (HC) Routine 03/30/2024 3:00 AM EST LACTATE DEHYDROGENASE Routine 03/30/2024 3:00 AM EST GLUCOSE, RANDOM Routine 03/30/2024 3:00 AM EST CREATININE, SERUM Routine 03/30/2024 3: 00 AM EST BILIRUBIN, TOTAL Routine 03/30/2024 3:00 AM EST AST Routine 03/30/2024 3:00 AM EST ALT Routine 03/30/2024 3:00 AM EST ALKALINE PHOSPHATASE Routine 03/30/2024 3:00 AM EST CALCIUM PHOSPHORUS PRODUCT, ADJUSTED (HC) Routine 03/30/2024 3:00 AM EST FERRITIN Routine 03/30/2024 3:00 AM EST CBC AND DIFFERENTIAL Routine 03/30/2024 3:00 AM EST KT/V NATURAL LOG, URR (HC) Routine 03/30/2024 3:00 AM EST HEMOGLOBIN AND HEMATOCRIT, BLOOD Routine 03/23/2024 3:00 AM EDT from Last 3 Months Results * (ABNORMAL) Hemoglobin and hematocrit (06/22/2024 3:00 AM EST) Only the most recent of9 resultswithin the time period is included. Hgb 9.8(L) 11.2 - 15.7 g/dL [facility] Hematocrit 30.3(L) 34.1 - 44.9 % [facility] Hemoglobin x 3 29.4(L) 33.6 - 47.1 g/dL [facility] 06/22/2024 3:00 AM EST 06/23/2024 12:39 PM EST Jeffy Tineo MD LAB BLOOD ORDERABLES Final Re sult Performing Organization Address [facility] de Phone Number [facility] [address] [place] [address] * LIH (06/17/2024 3:00 AM EST) Only the most recent of7 resultswithin the time period is included. Lipemia Normal Normal [facility] Icterus Normal Normal [facility] Hemolysis Normal Normal [facility] 06/17/2024 3:00 AM EST 06/18/2024 2:10 PM EST Jeffy Tineo MD LAB [id number] SOLICITED RESULTS Final Result Performing Organization Address [facility] de Phone Number [facility] [address] [place] [address] * Calcium, Adjusted w Albumin (06/17/2024 3:00 AM EST) Calcium 10.0 8.6 - 10.3 mg/dL [facility] Albumin 4.2 3.6 - 5.4 g/dL [facility] Calcium, Adjusted Total 10.0 8.6 - 10.3 mg/dL [facility] 06/17/2024 3:00 AM EST 06/18/2024 2:10 PM EST Jeffy Tineo MD LAB BLOOD ORDERABLES Final Re sult Performing Organization Address [facility] de Phone Number [facility] [address] [place] [address] * Confirmation Test HCV (06/01/2024 3:00 AM EST) Hep C Ab Confirmation Not needed [facility] 06/01/2024 3:00 AM EST 06/02/2024 1:33 PM EST Jeffy Tineo MD LAB BLOOD ORDERABLES Final Re sult Performing Organization Address [facility] de Phone Number [facility] [address] [place] [address] * (ABNORMAL) Kt/V Natural Log, URR (06/01/2024 3:00 AM EST) Only the most recent of3 resultswithin the time period is included. Treatment Time 220 min [facility] Pre-Weight, lb 101.0 kg [facility] Post-Weight, lb 96.9 kg [facility] Ultrafiltration Rate 12 <=13 mL/kg/hr [facility] Comment: Recommend achieving Ultrafiltration Rate (UFR) <=10 mL/kg/hr References: Charley TODD et al. Kidney Int. 2010; 79(2):250-257 BUN Post Dialysis 19 7 - 25 mg/dL [facility] BUN 66(H) 7 - 25 mg/dL [facility] UREA REDUCTION RATIO (%) 71 >=65 % [facility] Kt/V Natural Log 1.48 >=1.2 [facility] 06/01/2024 3:00 AM EST 06/02/2024 1:10 PM EST us Jeffy Tineo MD LAB [id number] SOLICITED RESULTS Final Result [facility] [address] [place] [address] * (ABNORMAL) Calcium Phosphorus Product, Adjusted (06/01/2024 3:00 AM EST) Only the most recent of3 resultswithin the time period is included. Albumin 4.2 3.6 - 5.4 g/dL [facility] Calcium 9.8 8.6 - 10.3 mg/dL [facility] Phosphorus, Serum 5.3(H) 2.5 - 5.0 mg/dL [facility] Ca*PO4 51.9 <55.0 mg2/dL2 [facility] Calcium, Adjusted Total 9.8 8.6 - 10.3 mg/dL [facility] CA*PO4 CORRCTD 51.9 <55.0 mg2/dL2 [facility] 06/01/2024 3:00 AM EST 06/02/2024 2:21 PM EST us Jeffy Tineo MD LAB [id number] SOLICITED RESULTS Final Result Performing Organization Address [facility] de Phone Number [facility] [address] [place] [address] * HEPATITIS C ABS W/REFLEX RNA DETECTR (06/01/2024 3:00 AM EST) Hep C Virus Ab Non-Reacti ve Non-Reacti ve [facility] 06/01/2024 3:00 AM EST 06/02/2024 2:21 PM EST Jeffy Tineo MD LAB [id number] SOLICITED RESULTS Final Result Performing Organization Address [facility] de Phone Number [facility] [address] [place] [address] * (ABNORMAL) TSAT (06/01/2024 3:00 AM EST) Only the most recent of3 resultswithin the time period is included. Iron 108 50 - 170 ug/dL [facility] Transferrin 184(L) 250 - 380 mg/dL [facility] TIBC 258 211 - 406 ug/dL [facility] Iron Saturation (TSat) 42 22 - 52 % [facility] 06/01/2024 3:00 AM EST 06/02/2024 2:21 PM EST Jeffy Tineo MD LAB BLOOD ORDERABLES Final Re sult Performing Organization Address [facility] de Phone Number [facility] [address] [place] [address] * Aluminum level (06/01/2024 3:00 AM EST) Aluminum 4 1 - 20 ug/L [facility] 06/01/2024 3:00 AM EST 06/02/2024 2:46 PM EST Jeffy Tineo MD LAB BLOOD ORDERABLES Final Re sult Performing Organization Address [facility] de Phone Number [facility] [address] [place] [address] * Vitamin D 25 Hydroxy (06/01/2024 3:00 AM EST) [facility] Vitamin D, 25-Hydroxy 48 30 - 100 ng/mL [facility] Comment: Status ? Adult ?? Pediatric Deficient: ? <20 ? <15 Insufficient: ??20-29 ?? 15-19 Sufficient: ?30-100 ??20-100 06/01/2024 3:00 AM EST 06/02/2024 2:21 PM EST Jeffy Tineo MD LAB BLOOD ORDERABLES Final Re sult Performing Organization Address [facility] de Phone Number [facility] [address] [place] [address] * Hepatitis B Surface Antibody (06/01/2024 3:00 AM EST) Only the most recent of2 resultswithin the time period is included. [facility] Hep B Surface Antibody 19 mIU/mL [facility] Comment: Interpretation: <10: No Immunity >=10: Probable Immunity 06/01/2024 3:00 AM EST 06/02/2024 2:21 PM EST Jeffy Tineo MD LAB BLOOD ORDERABLES Final Re sult Performing Organization Address [facility] de Phone Number [facility] [address] [place] [address] * (ABNORMAL) CBC and Differential (06/01/2024 3:00 AM EST) Only the most recent of3 resultswithin the time period is included. [facility] DIFFERENTIAL MANUAL, 2 Not Indicated [facility] White Blood Cells 6.6 4.0 - 10.0 K/uL [facility] RBC 2.86(L) 3.93 - 5.22 M/uL [facility] Hgb 9.4(L) 11.2 - 15.7 g/dL [facility] Hemoglobin x 3 28.2(L) 33.6 - 47.1 g/dL [facility] Hematocrit 28.2(L) 34.1 - 44.9 % [facility] MCV 98.6(H) 79.4 - 94.8 fL [facility] MCH 32.9(H) 25.6 - 32.2 pg [facility] MCHC 33.3 32.2 - 35.5 g/dL [facility] Platelets 179(L) 182 - 369 K/uL [facility] RDW 14.1 11.7 - 14.4 % [facility] Neutrophils Relative 68.4 34.0 - 71.1 % [facility] Lymphocytes Relative 19.5 19.3 - 51.7 % [facility] Monocytes 4.9 4.7 - 12.5 % [facility] Eosinophils Relative 5.6 0.7 - 5.8 % [facility] Basophils Relative 0.8 0.1 - 1.2 % [facility] Immature Granulocytes 0.8 0.0 - 1.0 % [facility] 06/01/2024 3:00 AM EST 06/02/2024 1:33 PM EST Jeffy Tineo MD LAB BLOOD ORDERABLES Final Re sult Performing Organization Address [facility] Co de Phone Number [facility] [address] [place] [address] * Uric Acid (06/01/2024 3:00 AM EST) Uric Acid 6.0 2.3 - 6.6 mg/dL [facility] 06/01/2024 3:00 AM EST 06/02/2024 2:21 PM EST Jeffy Tineo MD LAB BLOOD ORDERABLES Final Re sult Performing Organization Address [facility] Co de Phone Number [facility] [address] [place] [address] * ALT (06/01/2024 3:00 AM EST) Only the most recent of3 resultswithin the time period is included. ALT (SGPT) 19 10 - 49 U/L [facility] 06/01/2024 3:00 AM EST 06/02/2024 2:21 PM EST Jeffy Tineo MD LAB BLOOD ORDERABLES Final Re sult Performing Organization Address [facility] de Phone Number [facility] [address] [place] [address] * AST (06/01/2024 3:00 AM EST) Only the most recent of3 resultswithin the time period is included. AST (SGOT) 17 <34 U/L [facility] 06/01/2024 3:00 AM EST 06/02/2024 2:21 PM EST Jeffy Tineo MD LAB BLOOD ORDERABLES Final Re sult Performing Organization Address [facility] de Phone Number [facility] [address] [place] [address] * Protein, total (06/01/2024 3:00 AM EST) Only the most recent of3 resultswithin the time period is included. Total Protein 7.2 6.4 - 8.9 g/dL [facility] 06/01/2024 3:00 AM EST 06/02/2024 2:21 PM EST Jeffy Tineo MD LAB BLOOD ORDERABLES Final Re sult Performing Organization Address [facility] de Phone Number [facility] [address] [place] [address] * (ABNORMAL) Alkaline phosphatase (06/01/2024 3:00 AM EST) Only the most recent of3 resultswithin the time period is included. Alkaline Phosphatase 118(H) 46 - 116 U/L [facility] 06/01/2024 3:00 AM EST 06/02/2024 2:21 PM EST Jeffy Tineo MD LAB BLOOD ORDERABLES Final Re sult Performing Organization Address [facility] de Phone Number [facility] [address] [place] [address] * PTH, Intact (06/01/2024 3:00 AM EST) PTH, Intact 622 160 - 721 pg/mL [facility] Comment: Suggested (KDIGO) ESRD maintenance range is two to nine times the upper normal limit (80.1 pg/mL) for the laboratory. 06/01/2024 3:00 AM EST 06/02/2024 2:21 PM EST Jeffy Tineo MD LAB BLOOD ORDERABLES Final Re sult Performing Organization Address [facility] Co de Phone Number [facility] [address] [place] [address] * Magnesium (06/01/2024 3:00 AM EST) Only the most recent of3 resultswithin the time period is included. Magnesium 2.2 1.9 - 2.7 mg/dL [facility] 06/01/2024 3:00 AM EST 06/02/2024 2:21 PM EST Jeffy Tineo MD LAB BLOOD ORDERABLES Final Re sult Performing Organization Address [facility] de Phone Number [facility] [address] [place] [address] * (ABNORMAL) Lactate dehydrogenase (06/01/2024 3:00 AM EST) Only the most recent of3 resultswithin the time period is included. LDH 286(H) 120 - 246 U/L [facility] 06/01/2024 3:00 AM EST 06/02/2024 2:21 PM EST Jeffy Tineo MD LAB BLOOD ORDERABLES Final Re sult Performing Organization Address [facility] de Phone Number [facility] [address] [place] [address] * (ABNORMAL) Hemoglobin A1c (06/01/2024 3:00 AM EST) Hemoglobin A1C 7.8(H) <5.7 % [facility] Comment: Methodology: Enzymatic HbA1c (NGSP %) ?Suggested Diagnosis >6.4% ? Diabetic 5.7-6.4% ?Pre-Diabetic <5.7% ? Non-Diabetic Diabetic Glucose Control Evaluation: Therapeutic action suggested at >8.0% ADA recommends a glycemic goal of <7.0% 06/01/2024 3:00 AM EST 06/02/2024 1:33 PM EST Jeffy Tineo MD LAB BLOOD ORDERABLES Final Re sult Performing Organization Address [facility] de Phone Number [facility] [address] [place] [address] * (ABNORMAL) Glucose, random (06/01/2024 3:00 AM EST) Only the most recent of3 resultswithin the time period is included. Glucose 414(H) 74 - 109 mg/dL [facility] 06/01/2024 3:00 AM EST 06/02/2024 2:21 PM EST Result [facility] Jeffy Tineo MD LAB BLOOD ORDERABLES Final Re sult Performing Organization Address [facility] de Phone Number [facility] [address] [place] [address] * (ABNORMAL) Ferritin (06/01/2024 3:00 AM EST) Only the most recent of2 resultswithin the time period is included. Ferritin 1,036(H) 10 - 291 ng/mL [facility] 06/01/2024 3:00 AM EST 06/02/2024 2:21 PM EST Jeffy Tineo MD LAB BLOOD ORDERABLES Final Re sult Performing Organization Address [facility] de Phone Number [facility] [address] [place] [address] * (ABNORMAL) Creatinine, serum (06/01/2024 3:00 AM EST) Only the most recent of3 resultswithin the time period is included. Creatinine 7.09(H) 0.55 - 1.02 mg/dL [facility] 06/01/2024 3:00 AM EST 06/02/2024 2:21 PM EST Jeffy Tineo MD LAB BLOOD ORDERABLES Final Re sult Performing Organization Address [facility] de Phone Number [facility] [address] [place] [address] * Bilirubin, total (06/01/2024 3:00 AM EST) Only the most recent of3 resultswithin the time period is included. Total Bilirubin 0.7 0.3 - 1.2 mg/dL [facility] 06/01/2024 3:00 AM EST 06/02/2024 2:21 PM EST Jeffy Tineo MD LAB BLOOD ORDERABLES Final Re sult Performing Organization Address [facility] de Phone Number [facility] [address] [place] [address] * (ABNORMAL) Lipid panel (06/01/2024 3:00 AM EST) Cholesterol 83 <200 mg/dL [facility] Comment: Optimal: ?<200 Borderline: ? 200-239 Higher Risk: ?>239 Triglycerides 119 <150 mg/dL [facility] Comment: Optimal: ?<150 Borderline High: ??150-199 High: ? 200-499 Very High: ?>499 HDL 31(A) >59 mg/dL [facility] Comment: Desirable: ?>59 Higher Risk: ?<40 LDL-Calc 28 <100 mg/dL [facility] Comment: Optimal: ?<100 Above Optimal: ?100-129 Borderline High: ??130-159 High: ? 160-189 Very High: ?>189 VLDL Cholesterol Isma 24 <30 mg/dL [facility] Comment: Optimal: ?<30 Borderline High: ??30-39 High: ? 40-99 Very High: ?>99 Chol/HDL Ratio 2.7 <3.3 [facility] Comment: Optimal: ?<3.3 Higher Risk: ?>6.2 06/01/2024 3:00 AM EST 06/02/2024 2:21 PM EST Jeffy Tineo MD LAB BLOOD ORDERABLES Final Re sult Performing Organization Address [facility] [address] [place] [address] * (ABNORMAL) Electrolyte panel (06/01/2024 3:00 AM EST) Only the most recent of4 resultswithin the time period is included. Sodium 134(L) 136 - 145 mEq/L [facility] Potassium 5.2(H) 3.4 - 5.0 mEq/L [facility] Chloride 96(L) 98 - 107 mEq/L [facility] Bicarbonate (CO2) 27 21 - 31 mEq/L [facility] Anion Gap 11 3 - 14 mEq/L [facility] 06/01/2024 3:00 AM EST 06/02/2024 2:21 PM EST Jeffy Tineo MD LAB BLOOD ORDERABLES Final Re sult Performing Organization Address [facility] de Phone Number [facility] [address] [place] [address] * Potassium (05/13/2024 3:00 AM EST) Potassium 4.6 3.4 - 5.0 mEq/L [facility] 05/13/2024 3:00 AM EST 05/14/2024 2:41 PM EST Jeffy Tineo MD LAB BLOOD ORDERABLES Final Re sult Performing Organization Address City/[facility]/ZIP Co de Phone Number [facility] [address] [place] [address] * (ABNORMAL) Phosphorus (05/13/2024 3:00 AM EST) Only the most recent of3 resultswithin the time period is included. Phosphorus, Serum 5.8(H) 2.5 - 5.0 mg/dL [facility] 05/13/2024 3:00 AM EST 05/14/2024 2:41 PM EST us Jeffy Tineo MD LAB BLOOD ORDERABLES Final Re sult Performing Organization Address [facility] de Phone Number [facility] [address] [place] [address] from Last 3 Months Insurance [place]ICAID [place] Care Teams Etymology Professor Relationship Specialty Start Date End Date Ines Zamora MD [address] [place] [address] [id number] PCP - General 06/04/20
--- OUTSIDE RECORDS SUMMARY | 2024-06-23 16:44 | XMS_ITS | Encounter Summary ---
Author Organization [employer] Address [address] [place] [address] 7 [place] [address] Care Team Providers Care Deck Specialist Name Role Phone Faith Mason MD Primary Care Provide r Reason for Visit * Reason Onset Date Comments Care Coordination 06/08/2024 ICP Care Plan Encounter Details Date Type Department Care Team ([facility] st Contact Info) Description 06/08/2024 Telephone [facility] [address] [place], [place] [phone] Faith Mason MD [address] [place] [address] Care Coordination (ICP Care Plan) Social History Tobacco Use Types Packs/Day Years [...] encounter Miscellaneous Notes * Telephone Encounter - Blayne Leos - 06/08/2024 11:52 AM EST PCP Designee has received and reviewed Care Plan from [facility]: Price Changer: Linda Peralta Contact Information: [phone] Care Plan scanned into patient's EHR and notification sent to PCP. documented in this encounter Plan of Treatment Upcoming Encounters Date Type Department Care Team (Late st Contact Info) Description 07/29/2024 2:15 PM EST Office Visit [facility] [address] [place] [address] Kay Mackay MD [address] [place] [address] 09/20/2024 3:00 PM EDT Office Visit [facility] AD[facility] DENTAL [address] [place] [address] Karen Shannon [address] [place] [address] documented as of this encounter Visit Diagnoses Not on filedocumented in this encounter Additional Health Concerns Assessment Noted Time PHQ-9 Depression Total Score: 6 11/24/19 24 2:35 PM EDT documented as of this encounter Care Teams Deck Specialist Relationship Specialty Start Date End Date Faith Mason MD [address] [place] [address] PCP - General Family Medicine 04/12/19 Linda Peralta Dog Daycare ProviderDirector Of Culture 06/08/24 documented as of this encounter
--- OUTSIDE RECORDS SUMMARY | 2024-06-23 16:44 | XMS_ITS | Encounter Summary ---
Author Organization [employer] Address [address] [place] [address] 7t [place] [address] Care Team Providers Care Circuit Rider Name Role Phone Faith Mason MD Primary Care Provide r Reason for Visit * Reason Comments Med Refill Encounter Details Date Type Department Care Team (Late st Contact Info) Description 06/24/2023 Refill [facility] [address] [place], [place] [phone] Faith Mason MD [address] [place], [place] [phone] Social History Tobacco Use Types Packs/Day Years [...] 2:15 PM EST Office Visit [facility] [address] [place] [address] Kay Mackay MD [address] [place] [address] 09/20/2024 3:00 PM EDT Office Visit [facility] AD[facility] [address] [place] [address] Shiva, Karen [address] [place] [address] documented as of this encounter Visit Diagnoses Not on filedocumented in this encounter Additional Health Concerns Assessment Noted Time PHQ-9 Depression Total Score: 14 023 2:21 PM EDT documented as of this encounter Care Teams Circuit Rider Relationship Specialty Start Date End Date Faith Mason MD [address] [place] [address] PCP - General Family Medicine 04/12/19 Linda Peralta WirerPromotions Specialist 06/08/24 documented as of this encounter
--- OUTSIDE RECORDS SUMMARY | 2024-06-23 16:44 | XMS_ITS | Encounter Summary ---
Author Organization [facility] Address [address] [place] [phone] Phone Care Team Providers Care Guest Advisor Name Role Phone Ines Zamora MD Primary Care Provider Encounter Details Date Type Department Care Team (Late st Contact Info) Description 05/09/2024 Treatment [facility] [address] [phone] Sweetie Pandey MD [facility] [address] [phone] Social History Tobacco Use Types [...] Dialysis Note - Sweetie Pandey MD - 05/09/2024 12:00 AM EST Patient: Sarah Corado : 1965 Note Type: Dialysis Rounds-Comp Service Date: 05/09/2024 This patient was personally seen for a complete visit as part of routine monthly dialysis care for end stage renal disease. Attending Molder Machine Tender: SWEETIE PANDEY MD Dialysis Location: DIALYSIS Schedule: Shift: 2 ADEQUACY ASSESSMENT Kt/V, [...] Surface Antibody 25 (05/04/24) ADDITIONAL COMMENT COMMENTS: 05/09/24 overall doing better 05/24/24 stable 05/27/24 doing ok 01/27/24 stable 02/01/24 c/o eye pain after catract surg and has appt 02/0202/08/24 doing better 02/15/24 has appt w optho re L eye 02/29/24 cont eye pain, f/u with optho 03/16/24 eye pain resolved 03/28/24 stable 04/04/24. Has optho surg next week 04/11/24 stable 04/19/24 doing ok Signed by: SWEETIE PANDEY MD on 05/31/2024 at 09:40:44 PM Transcribed by: SWEETIE PANDEY MD on 05/31/2024 at 09:40:44 PM documented in this encounter Plan of Treatment Not on file documented as of this encounter Visit Diagnoses Not on filedocumented in this encounter Care Teams Guest Advisor Relationship Specialty Start Date End Date Ines Zamora MD [address] [place] [address] PCP - General 06/04/20 documented as of this encounter
--- OUTSIDE RECORDS SUMMARY | 2024-06-23 16:44 | XMS_ITS | Encounter Summary ---
Author Organization [employer] Address [address] [place] [address] 7t [place] [address] Care Team Providers Care Instructor Bus Trolley And Taxi Name Role Phone Faith Mason MD Primary Care Provide r Encounter Details Date Type Department Care Team (Latest Contact Info) Description 05/26/2024 Travel Social History Tobacco Use Types Packs/Day Years [...] Office Visit [facility] [address] [place] [address] Kay Mackay MD [address] [place] [address] 09/20/2024 3:00 PM EDT Office Visit [facility] [address] [place] [address] Shiva, Karen [address] [place] [address] documented as of this encounter Visit Diagnoses Not on filedocumented in this encounter Additional Health Concerns Assessment Noted Time PHQ-9 Depression Total Score: 6 11/24/19 24 2:35 PM EDT documented as of this encounter Care Teams Instructor Bus Trolley And Taxi Relationship Specialty Start Date End Date Faith Mason MD [address] [place] [id number] PCP - General Family Medicine 04/12/19 documented as of this encounter
--- OUTSIDE RECORDS SUMMARY | 2024-06-23 16:44 | XMS_ITS | Encounter Summary ---
Author Organization [employer] Address [address] [facility] 7t [place] [address] Care Team Providers Care Bottom Painter Name Role Phone Faith Mason MD Primary Care Provide r Encounter Details Date Type Department Care Team ([facility] st Contact Info) Description 06/16/2024 Telephone [facility] [address] [place], [place] [phone] Faith Mason MD [address] [place], [place] [phone] Social History Tobacco Use Types Packs/Day Years [...] encounter Miscellaneous Notes * Telephone Encounter - Marie Nevarez RN - 06/16/2024 10:19 AM EST Noted. * Telephone Encounter - Romeo Nuñez - 06/16/2024 10:07 AM EST Tc from t calling to notify PCP she had catheterization procedure 3 days ago and will be bringing updated med list to medical records. Any question please contact pt [phone] documented in this encounter Plan of Treatment Upcoming Encounters Date Type Department Care Team (Late st Contact Info) Description 07/29/2024 2:15 PM EST Office Visit [facility] [address] [place] [address] Kay Mackay MD [address] [place] [address] 09/20/2024 3:00 PM EDT Office Visit [facility] ADULT DENTAL [address] [place] [address] Karen Shannon [address] [place], [place] [phone] documented as of this encounter Visit Diagnoses Not on filedocumented in this encounter Additional Health Concerns Assessment Noted Time PHQ-9 Depression Total Score: 6 11/24/19 24 2:35 PM EDT documented as of this encounter Care Teams Bottom Painter Relationship Specialty Start Date End Date Faith Mason MD [address] [place] [address] PCP - General Family Medicine 04/12/19 Linda Peralta Furnace PuncherSmall Battery Plate Assembler 06/08/24 documented as of this encounter
--- OUTSIDE RECORDS SUMMARY | 2024-06-23 16:44 | XMS_ITS | Encounter Summary ---
Author Organization [employer] Address [address] [place] [address] 7t [place] [address] Care Team Providers Care Manager Power Name Role Phone Faith Mason MD Primary Care Provide r Encounter Details Date Type Department Care Team ([facility] st Contact Info) Description 06/17/2024 Refill [facility] [address] [place], [place] [phone] Faith Mason MD [address] [place], [place] [phone] Atrial flutter, unspecified type (CMS/HCC) Social History Tobacco Use Types Packs/Day [...] EST Office Visit [facility] [address] [place] [address] Kay Mackay MD [address] [place] [address] 09/20/2024 3:00 PM EDT Office Visit [facility] [address] [place] [address] Karen Shannon [address] [place] [address] documented as of this encounter Visit Diagnoses Diagnosis Atrial flutter, unspecified type (CMS/HCC) documented in this encounter Additional Health Concerns Assessment Noted Time PHQ-9 Depression Total Score: 6 11/24/19 24 2:35 PM EDT documented as of this encounter Care Teams Manager Power Relationship Specialty Start Date End Date Faith Mason MD [address] [place] [address] PCP - General Family Medicine 04/12/19 Linda Peralta Mother HelperHeadlight Adjuster 06/08/24 documented as of this encounter
--- OUTSIDE RECORDS SUMMARY | 2024-06-23 16:45 | XMS_ITS | Encounter Summary ---
Author Organization [employer] Address [address] [facility] 7t [place] [address] Care Team Providers Care Flour Blender Name Role Phone Faith Mason MD Primary Care Provide r Reason for Visit * Reason Onset Date Comments Durable Medical Equipment 11/05/2023 Encounter Details Date Type Department Care Team ([facility] st Contact Info) Description 11/05/2023 Telephone [facility] [address] [place], [place] [phone] Faith Mason MD [address] [place] [address] Durable Medical Equipment Social History Tobacco Use Types Packs/Day Years [...] Patient Health Questionnaire-2 Score 6 10/07/2022 Comments No Sex and Gender Information Value Date Recorded Sex Assigned at Female 03/24/2022 10:18 AM EDT Legal Sex Female 10:18 AM EDT Gender Identity Female 03/24/2022 10:18 AM EDT Sexual Orientation Choose not to disclose 2021 10:18 AM EDT documented as of this encounter Miscellaneous Notes * Telephone Encounter - Collin Chris - 11/05/2023 12:47 PM EDT Silver Mckeon at [facility] calling to request the following DME. Shower Chair Shower grab bars Wheel chair Rolator walker with seat documented in this encounter Plan of Treatment Upcoming Encounters Date Type Department Care Team (Late st Contact Info) Description 07/29/2024 2:15 PM EST Office Visit [facility] MEDICINE [address] [place] [address] Kay Mackay MD [address] [place] [address] 09/20/2024 3:00 PM EDT Office Visit [facility] ADULT DENTAL [address] [place] [address] Jacob Shannonaris [address] [place] [address] documented as of this encounter Visit Diagnoses Not on filedocumented in this encounter Additional Health Concerns Assessment Noted Time PHQ-9 Depression Total Score: 14 023 2:21 PM EDT documented as of this encounter Care Teams Flour Blender Relationship Specialty Start Date End Date Faith Mason MD [address] [place] [address] PCP - General Family Medicine 04/12/19 Linda Peralta Cost Control SupervisorProduction Clerks Supervisor 06/08/24 documented as of this encounter
--- OUTSIDE RECORDS SUMMARY | 2024-06-23 16:45 | XMS_ITS | Encounter Summary ---
Author Organization [employer] Address [address] [place] [address] 7t [place] [address] Care Team Providers Care Clipper Automatic Name Role Phone Faith Mason MD Primary Care Provide r Reason for Visit * Reason Onset Date Comments Durable Medical Equipment 10/30/2022 Encounter Details Date Type Department Care Team (Late st Contact Info) Description 10/30/[address] [facility] [address] [place], [place] [phone] Fiath Mason MD [address] [place] [address] Durable Medical Equipment Social History Tobacco Use [...] not want or need it 06/2023 Comments Unknown Sex and Gender Information Value [...] PM EDT documented as of this encounter Miscellaneous Notes * Telephone Encounter - Ellen Corado - 10/31/2022 10:07 AM EDT Script for DM shoes generated for signature * Telephone Encounter - Blayne Leos - 10/30/2022 12:52 PM EDT Tc from caregiver requesting a script for diabetic shoes ( size 8 ) , would like script sent to [facility]. Please contact at [phone] documented in this encounter Plan of Treatment Upcoming Encounters Date Type Department Care Team ([facility] st Contact Info) Description 07/29/2024 2:15 PM EST Office Visit [facility] [address] [place] [address] Kay Mackay MD [address] [place], [place] [phone] 09/20/2024 3:00 PM EDT Office Visit [facility] ADULT DENTAL [address] [place], [place] [phone] Jacob Shannonaris [address] [place], [place] [phone] documented as of this encounter Visit Diagnoses Not on filedocumented in this encounter Additional Health Concerns Assessment Noted Time PHQ-9 Depression Total Score: 14 023 2:21 PM EDT documented as of this encounter Care Teams Clipper Automatic Relationship Specialty Start Date End Date Faith Mason MD [address] [place], [place] [phone] PCP - General Family Medicine 04/12/19 Linda Peralta Forge Utility WorkerGlue Mounter Operator 06/08/24 documented as of this encounter
== END 2024-06-23 13:25 | disposition home or self-care (01) ==
PROVIDERS: PCP Internal Medicine; Visit Provider Registered Nurse Diabetes Educator
DX: E11.22 Type 2 diabetes mellitus with diabetic chronic kidney disease (principal); N18.6 End stage renal disease

== ENCOUNTER → 2024-06-23 12:57 | Outpatient (BNVA) | payer MEDICAID, SELFPAY | PROVIDERS: PCP Internal Medicine; Visit Provider Registered Nurse Diabetes Educator | DX: E11.22 Type 2 diabetes mellitus with diabetic chronic kidney disease (principal); N18.6 End stage renal disease; Z79.4 Long term (current) use of insulin | CPT/HCPCS: 99211 ==

== ENCOUNTER 2024-06-28 10:07 | Outpatient (AMB) | payer MEDICAID, SELFPAY ==
[2024-06-28 10:10] VITALS: BP 128/62; PULSE 61; BMI 38.3
--- NOTE | 2024-06-28 10:10 | A.OFFVIS_ITS ---
Vital Signs 06/28/24 10:10 Height 5 ft 3 in Weight 216 lb 0.848 oz BMI 38.3 BP 128/62 Blood Pressure Location Rt brachial Position Sitting Pulse 61 Pulse Source Pulse Oximeter Intake Visit Reasons: 2 wk s/p cath Entry Level Electrician Required: No Pathology Secretary/Transcriptionist: Pathology Secretary/Transcriptionist Present Allergies No Known Allergies Allergy (Verified 06/28/24 10:12) Medication List - Last Reconciled 06/28/24 by CELESTINA Romero amlodipine 10 mg PO DAILY apixaban (Eliquis) 5 mg PO BID 90 days atorvastatin 40 mg PO DAILY@1200 blood-glucose meter (FreeStyle Lite Meter kit) As directed blood-glucose meter,continuous (FreeStyle Tika 3 [place]) As directed blood-glucose meter,continuous (FreeStyle Tika 3 [place]) As directed blood-glucose sensor (FreeStyle Tika 3 Sensor device) As directed blood-glucose sensor (FreeStyle Tika 3 Sensor device) As directed brimonidine 0.2% 1 drp ophthalmic-Left TID calcium polycarbophil (Fiber-Lax) 625 mg PO DAILY cholecalciferol (vitamin D3) (Vitamin D3) 50 mcg PO DAILY clopidogrel (Plavix) 75 mg PO DAILY FreeStyle Lite Strips (blood sugar diagnostic) TEST BLOOD SUGAR FOUR TIMES DAILY prn sensor failure or to confirm sensor readings NS glucose (Dex4 Glucose) 16 grams (4 x 4 gram) PO Q15M PRN 30 days MDD 16 tablets hydralazine 1 tab PO TID@0900,1200,1800 insulin glargine U-300 conc (Toujeo SoloStar U-300 Insulin) 16 units (0.0533 mL) subcut BEDTIME insulin lispro 8 - 14 units (0.08 - 0.14 mL) subcut DIRECTED ketorolac 0.5% 1 drp ophthalmic (eye) TID lancets (TRUEplus Lancets) TEST BLOOD SUGAR FOUR TIMES DAILY prn to confirm sensor reading or sensor failure levocetirizine 5 mg PO BEDTIME levothyroxine 25 mcg PO DAILY@0600 loratadine 10 mg PO DAILY melatonin 5 mg PO BEDTIME PRN metoprolol tartrate 12.5 mg (1/2 x 25 mg) PO BID omeprazole 20 mg PO DAILY@0630 pen needle, diabetic (BD Ultra-Fine Micro Pen Needle) As directed 4 times a day sevelamer carbonate 800 mg PO TIDAC HPI HPI 2 wk s/p cath: Details: Sarah is a 59 yo female with PMH of HTN, HLD, DM, ESRD on dialysis, obstructive sleep apnea with CPAP use, nonobstructive CAD, PAF, on Eliquis, recent NSTEMI who underwent outpatient cardiac catheterization and now presents for follow-up. Today she reports that she has been feeling well since her recent catheterization procedure. She has not been having any chest discomfort at rest or with activity. She denies shortness of breath, PND, orthopnea or edema. No lightheadedness, presyncope, syncope, falls. She has been ambulating and doing light activities around her home such as cooking and light housework. Has been attending dialysis sessions without missed appointments. WINDOW FRAMER is present and assisting with Polish translation at their request. 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 Uncontrolled type 2 diabetes mellitus with hyperglycemia, with long-term current use of insulin Hidradenitis suppurativa Pneumonia Type 2 diabetes mellitus with hyperglycemia Paroxysmal atrial flutter Dysphonia Chronic cough Urinary frequency Dyspnea on exertion Unstable gait Asthma Chronic low back pain without sciatica Osteoarthritis of both knees Kidney stones Depression AMARJIT (obstructive sleep apnea) Normocytic anemia ESRD needing dialysis CHF (congestive heart failure) Obesity due to excess calories CAD (coronary artery disease) GERD (gastroesophageal reflux disease) Thyroid disease AV fistula HLD (hyperlipidemia) ESRD (end stage renal disease) T2DM (type 2 diabetes mellitus) End stage renal disease on dialysis Dialysis patient Renal failure (ARF), acute on chronic HTN (hypertension) Surgical History (Updated 06/28/24 @ 12:20 by Isaura Brown, TRAY SERVICE WORKER-C) History of cardiac cath History of kidney surgery Hx of cholecystectomy Hx of bone graft Family History Father CVD (cardiovascular disease) Diabetes Mother Diabetes Sister Stomach cancer Social History Household Members: Spouse Household Members Other:: , brother, uncles Housing: House Do you presently have visiting nurse or other home services: Yes Unable to assess alcohol history related to: Unknown Alcohol intake: never Patient Tobacco Use Status: Never used Tobacco Advance Directives Date on File: 02/15/21 service: No Current occupational status: disabled Current occupation: right hand dominant Review of Systems Const All systems reviewed & are unremarkable except as noted in HPI and below Reports fatigue Card Denies chest pain, Denies chest pain at rest, Denies chest pain with activity, Denies rapid heart rate, Denies irregular heart rhythm, Denies lightheadedness, Denies dyspnea on exertion and Denies orthopnea Resp Denies dyspnea on exertion GI Denies no additional complaints Details: attends dialysis 3 times weekly Musc Details: right radial cath site feeling well Neuro Denies no additional complaints Endo Reports fatigue Physical Exam Vital Signs: Last Vital Signs Pulse 61 06/28/24 10:10 BP 128/62 06/28/24 10:10 BMI result Body Mass Index 38.3 Const General: cooperative, healthy appearing, comfortable and no acute distress Orientation/consciousness: patient oriented x3 Neck Neck: Yes normal visual inspection Resp Effort & Inspection: normal respiratory effort Auscultation: clear to auscultation bilaterally, no crackles, no rales, no rhonchi and no wheezes Cardio Jugular venous distension: no JVD Rate: regular rate Rhythm: regular rhythm Heart sounds: S1 normal heart sound present, S2 normal heart sound present, no murmurs and no rubs Neuro General: patient oriented x3 Extrem Other: right radial cath site with easily palpable radial pulse, right hand assessment normal General: Yes normal to inspection, No no pedal edema and No calf tenderness Psych Appearance: grossly normal Mental Status: mental status grossly normal Speech and movement: Normal speech and movement present Assessment & Plan Assessment & Plan (1) CAD (coronary artery disease): Code(s): I25.10 - Atherosclerotic heart disease of [place] coronary artery without angina pectoris Category: Medical Plan: History of nonobstructive CAD. She did undergo cardiac catheterization on 09/03/21 showing mild LAD and LCx stenosis and 30-40% distal RCA stenosis. She has been on appropriate medical management. She recently admitted to [facility] after fall at home. She was found to have an NSTEMI that was initially managed medically. She was set up for outpatient catheterization and no showed for her 1st appointment. Her catheterization was rescheduled and done on 06/14/2024 and showed significant 1st OM and proximal circumflex stenosis. She had PCI to OM1. Today she reports feeling well with no chest discomfort or shortness of breath. She does only light activities. She has been compliant with her dialysis 3 times weekly. She is taking all meds as directed. Will continue her on Plavix as well as Eliquis. Continue atorvastatin with ideal LDL goal less than 70. Continue amlodipine and metoprolol. She has an upcoming appointment at [facility] for cardiac rehab. Spent time reviewing cardiac catheterization results, coronary stent placement and risk factor modification with her and WINDOW FRAMER. Cardiology follow-up 3 months, sooner if needed. (2) S/P cardiac cath: Comment: 09/03/21 LM normal, LAD mild luminal irregularities < 30% stenosis, LCx mild luminal irregularities < 30%, Distal RCA 30-40% stenosis 06/14/2024, left main normal, lad normal, left circumflex 1st OM 99% stenosis, proximal circumflex 95% stenosis, distal RCA 40% stenosis, PCI to OM1 Code(s): Z98.890 - Other specified postprocedural states Category: Surgical Plan: Right radial catheterization site well healed (3) Paroxysmal atrial flutter: Code(s): I48.92 - Unspecified atrial flutter Category: Medical Plan: History of paroxysmal atrial flutter. No recent palpitations. Pulse is regular on examination, clinically in sinus rhythm. On metoprolol for rate control. On eliquis for anticoagulation. Labs done 05/01/2024 showed hematocrit 24.3, creatinine 7.53, she is on dialysis. No bleeding issues reported. Continue cur rent tx. (4) HTN (hypertension): Code(s): I10 - Essential (primary) hypertension Category: Medical Qualifiers: Hypertension type: unspecified Qualified Code(s): I10 - Essential (primary) hypertension Plan: Controlled at present time. No med changes made. (5) ESRD (end stage renal disease): Code(s): N18.6 - End stage renal disease Category: Medical Plan: Attends dialysis 3 times weekly. Follows closely with nephrology (6) Preop cardiovascular exam: Code(s): Z01.810 - Encounter for preprocedural cardiovascular examination Category: Medical Plan: Preop for renal transplant. Most recent Cardiac catheterization as above. She has a new coronary stent. She will need to be on Plavix uninterrupted for at least 1 year post stent placement. She can not be cleared for renal transplant at this time. (7) NSTEMI (non-ST elevated myocardial infarction): Code(s): I21.4 - Non-ST elevation (NSTEMI) myocardial infarction Category: Medical Plan: As above Plan Time spent on chart review, documentation, interview and assessment Coding Level of Care Code Est Pt Level 4 (02454) Complex EM visit Add On G2211 Diagnoses CAD (coronary artery disease) I25.10 S/P cardiac cath Z98.890 Paroxysmal atrial flutter I48.92 Hypertension, unspecified type I10 Hypertension type: unspecified ESRD (end stage renal disease) N18.6 Preop cardiovascular exam Z01.810 NSTEMI (non-ST elevated myocardial infarction) I21.4 Time Spent (min) 36
--- OUTSIDE RECORDS SUMMARY | 2024-06-28 10:51 | XMS_ITS | Encounter Summary ---
Author Organization [facility] Address [address] [place] [phone] Phone Care Team Providers Care International Accountant Name Role Phone Ines Zamora MD Primary Care Provider Encounter Details Date Type Department Care Team (Late st Contact Info) Description 06/24/2024 Treatment [facility] [address] [address] Sweetie Pandey MD [facility] [address] Social History Tobacco Use Types [...] Dialysis Note - Sweetie Pandey MD - 06/24/2024 12:00 AM EST Patient: Sarah Corado : 1965 Note Type: Dialysis Rounds-Basic Telehealth Service Date: 06/24/2024 Telehealth encounter using audiovisual technology, performed according to state requirements. Appropriate patient consent obtained. This patient was personally seen for a basic visit as part of routine monthly dialysis care for end stage renal disease. Attending Foreign Exchange Clerk: SWEETIE PANDEY Dialysis Location: [facility] Schedule: Shift: 2 ADEQUACY ASSESSMENT Kt/V, Natural Log 1.48 (06/01/24) 1.49 (05/04/24) 1.28 (03/30/24) UREA REDUCTION RATIO (%) 71 (06/01/24) 74 (05/04/24) 67 (03/30/24) BUN 66 (06/01/24) 110 (05/04/24) 49 (03/30/24) BUN Post Dialysis 19 (06/01/24) 29 (05/04/24) 16 (03/30/24) Creatinine 7.09 (06/01/24) 11.12 (05/04/24) 6.78 (03/30/24) Bicarbonate (CO2) 27 (06/01/24) 15 (05/04/24) 27 (04/26/24) Sodium 134 (06/01/24) 134 (05/04/24) 138 (04/26/24) ANEMIA ASSESSMENT Hgb 9.8 (06/22/24) 9.0 (06/17/24) 9.1 (06/08/24) Iron Saturation (TSat) 42 (06/01/24) 95 (05/04/24) 33 (03/30/24) Ferritin 1,036 (06/01/24) 1,593 (03/30/24) Iron 108 (06/01/24) 215 (05/04/24) 79 (03/30/24) TIBC 258 (06/01/24) 225 (05/04/24) 238 (03/30/24) MCV 98.6 (06/01/24) 98.4 (05/04/24) 98.7 (03/30/24) Platelets 179 (06/01/24) 188 (05/04/24) 195 (03/30/24) BMM ASSESSMENT Calcium, Adjusted Total 10.0 06/17/24 9.8 06/01/24 9.5 05/04/24 Calcium 10.0 06/17/24 9.8 06/01/24 9.5 05/04/24 Phosphorus, Serum 5.3 06/01/24 5.8 05/13/24 7.3 05/04/24 Ca*PO4 51.9 06/01/24 69.4 05/04/24 33.7 03/30/24 PTH, Intact 622 06/01/24 Vitamin D, 25-Hydroxy 48 06/01/24 Magnesium 2.2 06/01/24 2.6 05/04/24 2.2 03/30/24 Alkaline Phosphatase 118 06/01/24 112 05/04/24 100 03/30/24 Aluminum 4 06/01/24 NUTRITION ASSESSMENT Albumin 4.2 06/17/24 4.2 06/01/24 4.0 05/04/24 Potassium 5.2 06/01/24 4.6 05/13/24 6.3 05/04/24 Hemoglobin A1C 7.8 06/01/24 ADDITIONAL LABS White Blood Cells 6.6 (06/01/24) 10.2 (05/04/24) 6.6 (03/30/24) Cholesterol 83 (06/01/24) HDL 31 (06/01/24) LDL-Calc 28 (06/01/24) Triglycerides 119 (06/01/24) Hep B Surface Antibody 19 (06/01/24) 25 (05/04/24) Uric Acid 6.0 (06/01/24) ADDITIONAL COMMENT COMMENTS: 05/24/24 stable 05/27/24 doing ok 06/24/24 stBLE 01/27/24 stable 02/01/24 c/o eye pain after catract surg and has appt 02/0202/08/24 doing better 02/15/24 has appt w optho re L eye 02/29/24 cont eye pain, f/u with optho 03/16/24 eye pain resolved 03/28/24 stable 04/04/24. Has optho surg next week 04/11/24 stable 04/19/24 doing ok Signed by: SWEETIE PANDEY MD on 06/24/2024 at 08:04:00 PM Transcribed by: SWEETIE PANDEY MD on 06/24/2024 at 08:04:00 PM documented in this encounter Plan of Treatment Not on file documented as of this encounter Visit Diagnoses Not on filedocumented in this encounter Care Teams International Accountant Relationship Specialty Start Date End Date Ines Zamora MD [address] [place] [address] PCP - General 06/04/20 documented as of this encounter
--- OUTSIDE RECORDS SUMMARY | 2024-06-28 10:51 | XMS_ITS | Encounter Summary ---
Author Organization [facility] Address [address] [place] [phone] Phone Care Team Providers Care Novelty Printing Machine Operator Name Role Phone Ines Zamora MD Primary Care Provider [phone] Encounter Details Date Type Department Care Team (Late st Contact Info) Description 06/22/2024 Treatment [facility] [address] [address] Sweetie Pandey MD [facility] [address] Social History Tobacco Use Types [...] Dialysis Note - Sweetie Pandey MD - 06/22/2024 12:00 AM EST Patient: Sarah Corado : 1965 Note Type: Dialysis Rounds-Basic Telehealth Service Date: 06/22/2024 Telehealth encounter using audiovisual technology, performed according to state requirements. Appropriate patient consent obtained. This patient was personally seen for a basic visit as part of routine monthly dialysis care for end stage renal disease. Attending Ambulatory Care: SWEETIE PANDEY Dialysis Location: DIALYSIS Schedule: Shift: 2 ADEQUACY [...] COMMENT COMMENTS: 05/24/24 stable 05/27/24 doing ok 06/22/24 SATBLE 06/24/24 stBLE 01/27/24 stable 02/01/24 c/o eye pain after catract surg and has appt 02/0202/08/24 doing better 02/15/24 has appt w optho re L eye 02/29/24 cont eye pain, f/u with optho 03/16/24 eye pain resolved 03/28/24 stable 04/04/24. Has optho surg next week 04/11/24 stable 04/19/24 doing ok Signed by: SWEETIE PANDEY MD on 06/24/2024 at 08:05:19 PM Transcribed by: SWEETIE PANDEY MD on 06/24/2024 at 08:05:19 PM documented in this encounter Plan of Treatment Not on file documented as of this encounter Visit Diagnoses Not on filedocumented in this encounter Care Teams Novelty Printing Machine Operator Relationship Specialty Start Date End Date Ines Zamora MD [address] [place] [address] PCP - General 06/04/20 documented as of this encounter
--- OUTSIDE RECORDS SUMMARY | 2024-06-28 10:51 | XMS_ITS | Data Portability ---
Author Organization [place] [facility] Address [address] [place] [address] [id number] [place] [address] Assessment No assessment recorded. Plan of Treatment Reminders Order Date Submit Date Provider Last Modified By Organization Details Last Modified Time Details Appointments None recorded. Lab pap, IG + HPV 2016 017 Formerly [facility], [address] [place], [address] 7 07:56:44 Referral None recorded. Procedures None recorded. Surgeries None recorded. Imaging MAMMO, diagnostic, digital, unilateral 2016 017 hbender Not available 7 08:23:09 Medication Orders None recorded. Patient TargetsNo targets recorded. Patient Instructions Encounter Date Encounter Id Patient Instructions Last Modified By Organization Details Last Modified Time 11/04/2016 [id number] Discussed new pap smear guidelines, pt agreeable [...] types from this sourc e. Not Available [facility] [address], [place], 11/06/2016 07:56:44 11/05/19 17 11/06/2016 pap, [...] ThinP rep Imagi ng nila Alexis other [facility]. The Pap test is a scree key test with an inher ent false negat consuelo rate. [facility] , [address] [place], [place] CLIA [id number] CL-PO [id number] 7. Not Available [facility] [address], [place], 11/06/2016 07:56:44 Result Notes None recorded. Problems Name Problem SNOMED Code Status Onset Date Resolution Date Notes Provider Name and Address Organization Details Recorded Time Diabetes mellitus 32641292 Active 2016 Juliana arizmendi, [place] - [facility] 7 15:55:41 Chronic endometritis 81564402 Active 2016 Juliana [place]riz[place] - [facility] 15:55:49 Problem Notes None recorded. Procedures Surgical History Date Name Laterality Status Provider Name and Address Organization Details Recorded Time 11/04/2016 [id number] completed PAVAN BERNABE, [address] [facility], [address] [facility], [place], [address], [facility] 11/04/2016 17:17:09 11/04/2016 [id number] completed PAVAN KIDD DO [address] [facility], [address] [facility], [place], [address], [facility] 11/04/2016 17:17:05 05/25/1996 Other completed Juliana Gonzales [facility] 11/04/2016 16:01:20 05/25/1996 Other completed Juliana Gonzales [facility] 11/04/2016 16:03:12 Imaging Results None recorded. Procedure Notes None recorded. Medical Equipment None Reported. Allergies No known drug allergies Medications Name Sig Start Date Stop Date Status Note LastModified by Organization Details LastModified Time Lantus Solostar U-100 Insulin active Not Available Not Available Not Available Humalog KwikPen Insulin active Not Available Not Available Not Available Vitals Date Recorded Body height Body mass index (BMI) Body weight Systolic blood pressure Diastolic blood pressure Provider Name and Address Organization Details Last Updated DateTime 11/04/2016 160.02 cm 40.4 kg/m2 025259.0 6 g 132 mm[Hg] 60 mm[Hg] Juliana Gonzales [facility] 7 15:53:30 Social History Question Answer Notes LastModified by Organizat ion Details LastModified Time Tobacco Smoking Status Never Smoker Julianamaribel Gonzales null, [facility] 11/04/2016 15:58:24 What Is Your Level Of [...] available 2016 15:57:24 Medical History Condition Response Anxiety Disorder Y Blood Transfusions N HSV N Blood clots N Hyperlipidemia N Autoimmune disorder N Kidney or Bladder Problems Y Thyroid Problems N Depression Y Asthma N Defects or Inherited Disease N Endometriosis Y Anemia N Hypertension N Gynecological History Statement/Question Response Current Control Method None Date of LMP 07/12/2016 Obstetrics History GPAL:G 3 P 0 0 3 0 Type Value Spontaneous 3 Living 0 Total 3 Past Encounters Encounter ID Performer Location Encounter Start Date Encounter Closed Date Diagnosis/Indication Diagnosis SNOMED-CT Code Diagnosis ICD10 Code Diagnosis Note [id number] PAVAN KIDD DO SHO1 4 [facility] [address] [place] [address] 11/04/2016 15:42:27 11/04/2016 17:00:22 Gynecologic examination 63994011 Z01.411 51 yo annual exam Mass of left breast 1224 395388 7844778 N63 Health Concerns Section Related Observation LastModified by Organization Detai ls LastModified Time None Recorded Concern Status LastModified by Organization Details LastModified Time None Recorded Advance Directives Directive None Recorded Payers Encounter Date Sequence Insurance Name Policy Number Policy Dup[place] Covered Member ID Dup[place] Member ID Guarantor Name 11/04/2016 1 [place] Sarah Madden [id number] Sarah Madden Notes Date Note Type Note Provider Name and Address Organization Details Recorded Time 11/04/2016 text/html [facility] Annual GYNReported bypatient.Menstrua l cycle:Perimenopaus al(LMP 06/2015) Vagina:Normal vaginal discharge Breast:No nipple discharge;Breast Pain Bilateral;Breast lump(left inner breast-getting larger) Current Contraception:[place] gamous relationship Sexual complaints:No pain during intercourse Preventive measures:Encourage self breast examination; Encourage regular exerciseNotes:51 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 Pt is Lithuanian speaking only-wants to interpret, declined professional aerial photograph interpreter. last Fishing Vessel Deckhand exam was about 5 yrs ago in [place]. c/o B/L breast tenderness for past 5 yrs with more recent? ? ? increase in left breast balls. PAVAN KIDD DO [address] Floor, [place], [address], [place] - [facility] 11/04/2016 17:24:08 OBGyn Episode No OBEpisode recorded.
--- OUTSIDE RECORDS SUMMARY | 2024-06-28 10:51 | XMS_ITS | Encounter Summary ---
Author Organization [facility] Address [address] [place] [phone] Phone Care Team Providers Care Impregnation Operator Name Role Phone Ines Zamora MD Primary Care Provider Encounter Details Date Type Department Care Team (Late st Contact Info) Description 06/17/2024 Treatment [facility] [address] [phone] Sweetie Pandey MD [facility] [address] Social History Tobacco Use Types [...] Dialysis Note - Sweetie Pandey MD - 06/17/2024 12:00 AM EST Patient: Sarah Corado : 1965 Note Type: Dialysis Rounds-Basic Telehealth Service Date: 06/17/2024 Telehealth encounter using audiovisual technology, performed according to state requirements. Appropriate patient consent obtained. This patient was personally seen for a basic visit as part of routine monthly dialysis care for end stage renal disease. Attending Fiscal Assistant: SWEETIE PANDEY Dialysis Location: [facility] Schedule: Shift: 2 ADEQUACY ASSESSMENT Kt/V, [...] COMMENT COMMENTS: 05/24/24 stable 05/27/24 doing ok 06/17/24 stable 06/22/24 Stable 06/24/24 stBLE 01/27/24 stable 02/01/24 c/o eye pain after catract surg and has appt 02/0202/08/24 doing better 02/15/24 has appt w optho re L eye 02/29/24 cont eye pain, f/u with optho 03/16/24 eye pain resolved 03/28/24 stable 04/04/24. Has optho surg next week 04/11/24 stable 04/19/24 doing ok Signed by: SWEETIE PANDEY MD on 06/24/2024 at 08:06:06 PM Transcribed by: SWEETIE PANDEY MD on 06/24/2024 at 08:06:06 PM documented in this encounter Plan of Treatment Not on file documented as of this encounter Visit Diagnoses Not on filedocumented in this encounter Care Teams Impregnation Operator Relationship Specialty Start Date End Date Ines Zamora MD [address] [place] [address] PCP - General 06/04/20 documented as of this encounter
--- OUTSIDE RECORDS SUMMARY | 2024-06-28 10:51 | XMS_ITS | Encounter Summary ---
Author Organization [employer] Address [address] [facility] 7t [place] [address] Care Team Providers Care Customer Experience Leader Name Role Phone Faith Maosn MD Primary Care Provide r Encounter Details Date Type Department Care Team ([facility] st Contact Info) Description 03/08/2024 Orders Only [facility] [address] [place], [place] [phone] Faith Mason MD [address] [place] [address] Social History Tobacco Use Types Packs/Day Years [...] Description 07/29/2024 2:15 PM EST Office Visit [facility] [address] [place] [address] Kay Mackay MD [address] [place] [address] 09/20/2024 3:00 PM EDT Office Visit [facility] ADULT DENTAL [address] [place] [address] Jacob Shannonaris [address] [place] [address] documented as of this encounter Visit Diagnoses Not on filedocumented in this encounter Additional Health Concerns Assessment Noted Time PHQ-9 Depression Total Score: 6 11/24/19 24 2:35 PM EDT documented as of this encounter Care Teams Customer Experience Leader Relationship Specialty Start Date End Date Faith Mason MD [address] [place] [address] PCP - General Family Medicine 04/12/19 Linda Peralta Filter AssemblerClerk Manager 06/08/24 documented as of this encounter
--- OUTSIDE RECORDS SUMMARY | 2024-06-28 10:52 | XMS_ITS | Encounter Summary ---
Author Organization [facility] Address [address] [place] [phone] Phone Care Team Providers Care Baby Sitter Name Role Phone Ines Zamora MD Primary Care Provider [phone] Encounter Details Date Type Department Care Team (Late st Contact Info) Description 05/09/2024 Treatment [facility] [address] [address] Sweetie Pandey MD [facility] [address] Social History Tobacco Use Types [...] care for end stage renal disease. Attending Short Order Fry Cook: SWEETIE PANDEY MD [facility] [...] on filedocumented in this encounter Care Teams Baby Sitter Relationship Specialty Start Date End Date Ines Zamora MD [address] [place] [address] PCP - General 06/04/20 documented as of this encounter
--- OUTSIDE RECORDS SUMMARY | 2024-06-28 10:52 | XMS_ITS | Encounter Summary ---
Author Organization [employer] Address [address] [place] [address] 7t [place] [address] Care Team Providers Care Real Estate Representative Name Role Phone Faith Mason MD Primary Care Provide r Reason for Referral * Consultation (Urgent) - Authorized Specialty Diagnoses / Procedures Referred By Contanup t Referred To Contact Obstetrics and Gynecology Diagnoses Post-menopausal bleeding Faith Mason MD [address] [place] [address] Phone: tel: fax: [facility] Women? s Services [address] 5[address] (Main Hospital Entrance) [place], [place] Phone: tel: fax: Referral ID Status Reason Start Date Expiration Date Visits Requested Visits Authorized [id number] Authorized Specialty Services Required 06/03/2024 06/03/2025 9 9 Encounter Details Date Type Department Care Team (Late st Contact Info) Description 06/03/2024 Orders Only [facility] [address] [place] [address] Faith Mason MD [address] [place] [address] Post-menopausal bleeding (Primary Dx) Social [...] Description 07/29/2024 2:15 PM EST Office Visit [facility] [address] [place] [address] Kay Mackay MD [address] [place] [address] 09/20/2024 3:00 PM EDT Office Visit [facility] ADULT DENTAL [address] [place], [place] [phone] Karen Shannon [address] [place] [address] Scheduled Referrals Name Type Priority Associated Diagnoses [...] documented as of this encounter Care Teams Real Estate Representative Relationship Specialty Start Date End Date Faith Mason MD [address] [place], [place] [phone] PCP - General Family Medicine 04/12/19 documented as of this encounter
--- OUTSIDE RECORDS SUMMARY | 2024-06-28 10:52 | XMS_ITS | Encounter Summary ---
Author Organization [employer] Address [address] [facility] 7t [place] [address] Care Team Providers Care Porcelain Technician Name Role Phone Faith Mason MD Primary Care Provide r Encounter Details Date Type Department Care Team (Late st Contact Info) Description 06/07/2024 10:00 AM EST Office Visit [facility] ADULT DENTAL [address] [place], [place] [phone] Shiva Karen [address] [place] [address] Social History Tobacco Use Types Packs/Day Years [...] [facility] [address] [place] [address] Kay Mackay MD [address] [place] [address] 09/20/2024 3:00 PM EDT Office Visit [facility] ADULT DENTAL [address] [place], [place] [phone] Karen Shannon [address] [place] [address] Scheduled Orders Name Type Priority Associated Diagnoses [...] documented as of this encounter Care Teams Porcelain Technician Relationship Specialty Start Date End Date Faith Mason MD [address] [place] [address] PCP - General Family Medicine 04/12/19 documented as of this encounter
--- OUTSIDE RECORDS SUMMARY | 2024-06-28 10:52 | XMS_ITS | Encounter Summary ---
Author Organization [facility] Address [address] [place] [phone] Phone Care Team Providers Care Fur Remodeler Name Role Phone Ines Zamora MD Primary Care Provider Encounter Details Date Type Department Care Team (Late st Contact Info) Description 05/27/2024 Treatment [facility] [address] [phone] Sweetie Pandey MD [facility] [address] Social History Tobacco Use Types [...] care for end stage renal disease. Attending Machine Greaser: SWEETIE PANDEY MD Dialysis Location: [facility] Schedule: Shift: 2 OVERVIEW Patient [...] on filedocumented in this encounter Care Teams Fur Remodeler Relationship Specialty Start Date End Date Ines Zamora MD [address] [place] [address] PCP - General 06/04/20 documented as of this encounter
--- OUTSIDE RECORDS SUMMARY | 2024-06-28 10:52 | XMS_ITS | Encounter Summary ---
Author Organization [employer] Address [address] [facility] 7t [place] [address] Care Team Providers Care Parachute Cushion Installer Name Role Phone Faith Mason MD Primary Care Provide r Encounter Details Date Type Department Care Team ([facility] st Contact Info) Description 07/17/2023 Telephone [facility] [address] [place], [place] [phone] Faith Mason MD [address] [place] [address] Social History Tobacco Use Types Packs/Day Years [...] Description 07/29/2024 2:15 PM EST Office Visit [facility] [address] [place] [address] Kay Mackay MD [address] [place] [address] 09/20/2024 3:00 PM EDT Office Visit [facility] ADULT DENTAL [address] [place] [address] Shiva, Karen [address] [place] [address] documented as of this encounter Visit Diagnoses Not on filedocumented in this encounter Additional Health Concerns Assessment Noted Time PHQ-9 Depression Total Score: 14 023 2:21 PM EDT documented as of this encounter Care Teams Parachute Cushion Installer Relationship Specialty Start Date End Date Faith Mason MD [address] [place] [address] PCP - General Family Medicine 04/12/19 Linda Peralta Lens SilvererCriminal Justice Instructor 06/08/24 documented as of this encounter
--- OUTSIDE RECORDS SUMMARY | 2024-06-28 10:52 | XMS_ITS | Encounter Summary ---
Author Organization [employer] Address [address] [facility] 7t [place] [address] Care Team Providers Care Call Center Supervisor Name Role Phone Faith Mason MD Primary Care Provide r Reason for Visit * Reason Onset Date Comments Durable Medical Equipment 11/05/2023 Encounter Details Date Type Department Care Team ([facility] st Contact Info) Description 11/05/2023 Telephone [facility] [address] [place], [place] [phone] Faith Mason MD [address] [place] [address] Durable Medical Equipment Social History Tobacco Use [...] 11/05/2023 12:47 PM EDT Silver Mckeon at [facility] calling to request the following DME. Shower Chair Shower grab bars Wheel chair Rolator walker with seat documented in this encounter Plan of Treatment Upcoming Encounters Date Type Department Care Team (Late st Contact Info) Description 07/29/2024 2:15 PM EST Office Visit [facility] MED[facility]INE [address] [place] [address] Kay Mackay MD [address] [place] [address] 09/20/2024 3:00 PM EDT Office Visit [facility] ADULT DENTAL [address] [place] [address] Jacob Shannonaris [address] [place] [address] documented as of this encounter Visit Diagnoses Not on filedocumented in this encounter Additional Health Concerns Assessment Noted Time PHQ-9 Depression Total Score: 14 023 2:21 PM EDT documented as of this encounter Care Teams Call Center Supervisor Relationship Specialty Start Date End Date Faith Mason MD [address] [place] [address] PCP - General Family Medicine 04/12/19 Linda Peralta Lining SewerLine Dancer 06/08/24 documented as of this encounter
--- OUTSIDE RECORDS SUMMARY | 2024-06-28 10:52 | XMS_ITS | Encounter Summary ---
Author Organization [employer] Address [address] [place] [address] 7t [place] [address] Care Team Providers Care Branch Maker Name Role Phone Faith Mason MD Primary Care Provide r Reason for Visit * Reason Comments Med Change Request Encounter Details Date Type Department Care Team (Late Contact Info) Description 11/28/2022 Refill [facility] MEDICINE [address] [place], [place] [phone] Faith Mason MD [address] [place] [address] Type 2 diabetes mellitus with hyperglycemia, with long-term current use of insulin ([facility]) Social History Tobacco Use Types [...] Description 07/29/2024 2:15 PM EST Office Visit [facility] MEDICINE [address] [place] [address] Kay Mackay MD [address] [place] [address] 09/20/2024 3:00 PM EDT Office Visit [facility] ADULT DENTAL [address] [place] [address] Shiva, Karen [address] [place] [address] documented as of this encounter Visit Diagnoses Diagnosis Type 2 diabetes mellitus with hyperglycemia, with long-term current use of insulin ([facility]) documented in this encounter Additional Health Concerns Assessment Noted Time PHQ-9 Depression Total Score: 14 023 2:21 PM EDT documented as of this encounter Care Teams Branch Maker Relationship Specialty Start Date End Date Faith Mason MD [address] [place] [phone] PCP - General Family Medicine 04/12/19 Linda Peralta Bowstring MakerMonitor Worker 06/08/24 documented as of this encounter
--- OUTSIDE RECORDS SUMMARY | 2024-06-28 10:52 | XMS_ITS | Encounter Summary ---
Author Organization [employer] Address [address] [facility] 7t [place] [address] Care Team Providers Care Air Traffic Control Specialist Center Name Role Phone Faith Mason MD Primary Care Provide r Reason for Visit * Reason Comments Med Refill Encounter Details Date Type Department Care Team (Late st Contact Info) Description 04/05/2024 Refill [facility] MED & PEDS [address] [place], [place] [phone] Faith Mason MD [address] [place] [address] Atrial flutter, unspecified type (CMS/HCC); Diabetic polyneuropathy [...] Description 07/29/2024 2:15 PM EST Office Visit [facility] MEDICINE [address] [place] [address] Kay Mackay MD [address] [place] [address] 09/20/2024 3:00 PM EDT Office Visit [facility] ADULT DENTAL [address] [place] [address] Karen Shannon [address] [place] [address] documented as of this encounter Visit Diagnoses Diagnosis Atrial flutter, unspecified type (CMS/HCC) Diabetic polyneuropathy associated with type 2 diabetes mellitus (CMS/HCC) documented in this encounter Additional Health Concerns Assessment Noted Time PHQ-9 Depression Total Score: 6 11/24/19 24 2:35 PM EDT documented as of this encounter Care Teams Air Traffic Control Specialist Center Relationship Specialty Start Date End Date Faith Mason MD [address] [place] [address] PCP - General Family Medicine 04/12/19 Linda Peralta Wallpaper HangerGlass Mechanic 06/08/24 documented as of this encounter
--- OUTSIDE RECORDS SUMMARY | 2024-06-28 10:52 | XMS_ITS | Encounter Summary ---
Author Organization [employer] Address [address] [facility] 7t [place] [address] Care Team Providers Care Nutrition Manager Name Role Phone Faith Mason MD Primary Care Provide r Encounter Details Date Type Department Care Team (Late st Contact Info) Description 06/17/2024 Refill [facility] MEDICINE [address] [place], [place] [phone] Faith Mason MD [address] [place] [address] Social History Tobacco Use Types Packs/Day Years [...] Description 07/29/2024 2:15 PM EST Office Visit [facility] MEDICINE [address] [place] [phone] Kay Mackay MD [address] [place] [address] 09/20/2024 3:00 PM EDT Office Visit [facility] ADULT DENTAL [address] [place] [phone] Jacob Shannonaris [address] [place] [address] documented as of this encounter Visit Diagnoses Not on filedocumented in this encounter Additional Health Concerns Assessment Noted Time PHQ-9 Depression Total Score: 6 11/24/19 24 2:35 PM EDT documented as of this encounter Care Teams Nutrition Manager Relationship Specialty Start Date End Date Faith Mason MD [address] [place] [phone] PCP - General Family Medicine 04/12/19 Linda Peralta Environmental Field Team MemberField Crop Farmer 06/08/24 documented as of this encounter
--- OUTSIDE RECORDS SUMMARY | 2024-06-28 10:52 | XMS_ITS | Encounter Summary ---
Author Organization [employer] Address [address] [place] [address] 7t [place] [address] Care Team Providers Care Mds Manager Name Role Phone Faith Mason MD Primary Care Provide r Encounter Details Date Type Department Care Team ([facility] st Contact Info) Description 06/17/2024 Refill [facility] MEDICINE [address] [place], [place] [phone] Faith Mason MD [address] [place], [place] [phone] Atrial flutter, unspecified type (CMS/HCC) Social History [...] EST Office Visit [facility] MEDICINE [address] [place] [address] Kay Mackay MD [address] [place] [address] 09/20/2024 3:00 PM EDT Office Visit [facility] ADULT DENTAL [address] [place] [address] Karen Shannon [address] [place] [address] documented as of this encounter Visit Diagnoses Diagnosis Atrial flutter, unspecified type (CMS/HCC) documented in this encounter Additional Health Concerns Assessment Noted Time PHQ-9 Depression Total Score: 6 11/24/19 24 2:35 PM EDT documented as of this encounter Care Teams Mds Manager Relationship Specialty Start Date End Date Faith Mason MD [address] [place] [phone] PCP - General Family Medicine 04/12/19 Lidna Peralta Regional Sales TrainerDirector Of First Impressions 06/08/24 documented as of this encounter
--- OUTSIDE RECORDS SUMMARY | 2024-06-28 10:52 | XMS_ITS | Encounter Summary ---
Author Organization [employer] Address [address] [place] [address] 7t [place] [address] Care Team Providers Care Lens Cementer Name Role Phone Faith Mason MD Primary Care Provide r Reason for Visit * Reason Comments Med Refill Encounter Details Date Type Department Care Team (Late st Contact Info) Description 06/24/2023 Refill [facility] MEDICINE [address] [place], [place] [phone] Faith Mason MD [address] [place], [place] [phone] Social History Tobacco Use Types Packs/Day Years [...] Description 07/29/2024 2:15 PM EST Office Visit [facility] MEDICINE [address] [place] [address] Kay Mackay MD [address] [place] [address] 09/20/2024 3:00 PM EDT Office Visit [facility] ADULT DENTAL [address] [place] [address] Shiva, Karen [address] [place] [address] documented as of this encounter Visit Diagnoses Not on filedocumented in this encounter Additional Health Concerns Assessment Noted Time PHQ-9 Depression Total Score: 14 023 2:21 PM EDT documented as of this encounter Care Teams Lens Cementer Relationship Specialty Start Date End Date Faith Mason MD [address] [place] [address] PCP - General Family Medicine 04/12/19 Linda Peralta Impregnator OperatorSummer Associate 06/08/24 documented as of this encounter
--- OUTSIDE RECORDS SUMMARY | 2024-06-28 10:52 | XMS_ITS | Encounter Summary ---
Author Organization [employer] Address [address] [place] [address] [address] [place] [address] Care Team Providers Care Automotive Assembler Name Role Phone Faith Mason MD Primary Care Provide r Reason for Visit * Reason Onset Date Comments Care Coordination 06/08/2024 ICP Care Plan Encounter Details Date Type Department Care Team ([facility] st Contact Info) Description 06/08/2024 Telephone [facility] MEDICINE [address] [place], [place] [phone] Faith Mason MD [address] [place] [address] Care Coordination (ICP Care Plan) Social History [...] has received and reviewed Care Plan from [facility]: Funeral Driver: Linda Peralta Contact Information: [phone] Care Plan scanned into patient's EHR and notification sent to PCP. documented in this encounter Plan of Treatment Upcoming Encounters Date Type Department Care Team (Late st Contact Info) Description 07/29/2024 2:15 PM EST Office Visit [facility] MEDICINE [address] [place] [address] Kay Mackay MD [address] [place] [address] 09/20/2024 3:00 PM EDT Office Visit [facility] ADULT DENTAL [address] [place] [address] Karen Shannon [address] [place] [address] documented as of this encounter Visit Diagnoses Not on filedocumented in this encounter Additional Health Concerns Assessment Noted Time PHQ-9 Depression Total Score: 6 11/24/19 24 2:35 PM EDT documented as of this encounter Care Teams Automotive Assembler Relationship Specialty Start Date End Date Faith Mason MD [address] [place] [address] PCP - General Family Medicine 04/12/19 Linda Peralta Electronics Mechanic ApprenticeExit Booth Agent 06/08/24 documented as of this encounter
--- OUTSIDE RECORDS SUMMARY | 2024-06-28 10:52 | XMS_ITS | Encounter Summary ---
Author Organization [employer] Address [address] [facility] 7t [place] [address] Care Team Providers Care Associate Product Integrity Engineer Name Role Phone Faith Mason MD Primary Care Provide r Reason for Visit * Reason Comments Med Refill Encounter Details Date Type Department Care Team (Late st Contact Info) Description 08/11/2023 Refill [facility] MEDICINE [address] [place], [place] [phone] Faith Mason MD [address] [place], [place] [phone] Social History Tobacco Use Types Packs/Day Years [...] 2:15 PM EST Office Visit [facility] MEDICINE [address] [place] [address] Kay Mackay MD [address] [place] [address] 09/20/2024 3:00 PM EDT Office Visit [facility] ADULT DENTAL [address] [place] [address] Shiva, Karen [address] [place] [address] documented as of this encounter Visit Diagnoses Not on filedocumented in this encounter Additional Health Concerns Assessment Noted Time PHQ-9 Depression Total Score: 14 023 2:21 PM EDT documented as of this encounter Care Teams Associate Product Integrity Engineer Relationship Specialty Start Date End Date Faith Mason MD [address] [place] [address] PCP - General Family Medicine 04/12/19 Linda Peralta Lightning Protection InstallerMaintenance Shop Manager 06/08/24 documented as of this encounter
--- OUTSIDE RECORDS SUMMARY | 2024-06-28 10:52 | XMS_ITS | Clinical Summary ---
Author Organization [employer] Address [address] [place] [address] 7[address] [place] [address] Care Team Providers Care Director Of Plant Operations Name Role Phone Faith Mason MD Primary [...] 2024 Active Blood Glucose Monitoring Suppl (FreeStyle Mccloud Lite) w/Device kitIndications:T ype 2 diabetes mellitus with hyperglycemia, with long-term current use of insulin ([facility]) Use to test blood sugar 3 times daily 1 kit 024 Active TRUEplus Lancets 33G miscIndications: Type 2 diabetes mellitus with hyperglycemia, with long-term current use of insulin ([facility]) TEST BLOOD SUGAR THREE TIMES DAILY 100 [...] hyperglycemia, with long-term current use of insulin ([facility]) USE DIRECTED THREE TIMES DAILY 100 each 11 024 Active insulin glargine (Toujeo Max SoloStar) 300 UNIT/ML injectionIndicat ions:Type 2 diabetes mellitus with hyperglycemia, with long-term current use of insulin ([facility]) INJECT 28 UNITS SUBCUTANEOUSLY EVERY DAY 6 mL 1 024 Active D3 Super Strength 50 MCG (1999 UT) capsule TAKE 1 CAPSULE BY MOUTH EVERY MORNING 90 capsule 1 Active atorvastatin (Lipitor) 40 MG tablet TAKE 1 TABLET BY MOUTH EVERYDAY AT NOON 90 tablet 1 024 Active sodium chloride ([place]) 0.65 % nasal spray Administer 1 spray [...] MG EC tabletIndication s:Coronary artery disease involving yavapai-apache coronary 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 236 mL Active brimonidine (AlphaGAN) 0.2 % ophthalmic solution Administer 1 drop into the left eye 3 times daily. Active Continuous Glucose Clinical Office Technician (FreeStyle Tika 3 [place]) device Use as directed Active Continuous Glucose [...] (05/21/2022 9:19 AM EST): -Currently followed by [facility] - last available consult note Jan 2022 w/ Dr. Miller -Continues with current med regimen: -Januvia 25mg PO daily -Tuojeo insulin 28 units subcutaneous daily -Lispro AC per SS -Dexcom ordered and managed through [facility] -Strongly encourage pt to schedule follow [...] remission 09/02/2018 Coronary artery disease invo lving yavapai-apache coronary 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 06/03/2018 Calculus of kidney 06/03/2018 Atypical chest pain 06/03/2018 Chronic endometritis 11/04/2016 Resolved Problems Problem Noted Date Diagnosed Date Resolved Date Type 2 diabetes mellitus without complication 09/03/19 19 05/21/2022 Encounters Date Type Department Care Team Description 06/17/2024 Refill [facility] [address] [facility] [place] [address] Faith Mason MD 06/17/2024 Refill [facility] [address] [place], [place] [address] Faith Mason MD Atrial flutter, unspecified type (CMS/HCC) 06/16/2024 Telephone [facility] [address] [place], [place] [address] Faith Mason MD 06/08/2024 Telephone [facility] [address] [facility] [place] [address] Faith Mason MD Care Coordination (ICP Care Plan) 06/07/2024 10:00 AM EST Office Visit [facility] [address] [place], [place] [address] Jacob Shannonaris 06/03/2024 Orders Only [facility] [address] [facility] [place] [address] Faith Mason MD Post-menopausal bleeding (Primary Dx) 05/31/2024 Refill [facility] [address] [place], [place] [address] Faith Mason MD Atrial flutter, unspecified type (CMS/HCC); Diabetic polyneuropathy associated with type 2 diabetes mellitus (CMS/HCC); Polyarthralgia 05/26/2024 9:30 AM EST Office Visit [facility] [address] [place], [place] [address] Faith Mason MD Other constipation (Primary Dx); Essential hypertension; Type 2 diabetes mellitus with hyperglycemia, with long-term current use of insulin (CMS/HCC); Metabolic encephalopathy; Chronic nonintractable headache, unspecified headache type 05/26/2024 Travel 05/19/2024 Telephone [facility] [address] [place], [place] [address] Bernice Fitzpatrick, RN Results 05/19/2024 Orders Only [facility] [address] [place], [place] [address] Faith Mason MD Thyroid nodule (Primary Dx) 05/11/2024 3:15 PM EST Office Visit [facility] [address] [place] [address] Faith Mason MD Acute maxillary sinusitis, recurrence not specified (Primary Dx); Type 2 diabetes mellitus with hyperglycemia, with long-term current use of insulin (CMS/HCC); Acute cough 05/11/2024 Travel 05/10/2024 Telephone [facility] [address] [place] [address] Fiath Mason MD Hospital Follow-up 05/03/2024 Refill [facility] [address] [place] [address] Faith Mason MD Atrial flutter, unspecified type (CMS/HCC); Diabetic polyneuropathy associated with type 2 diabetes mellitus (CMS/HCC); Coronary artery disease involving yavapai-apache coronary 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 (CMS/HCC) 05/02/2024 Patient Outreach [facility] [address] [place] [address] Faith Mason MD Transition Of Care (Tcm) (HDF unscheduled, SDOH unable to reach LVM) 04/26/2024 Patient Outreach [facility] [address] [place], [place] [phone] Faith Mason MD Error (VOID this visit) 04/25/2024 Orders Only GENERIC EXTERNAL DATA DEPARTMENT Provider, Generic External Data 04/05/2024 Refill [facility] [address] [place] [address] Faith Mason MD Atrial flutter, unspecified type (CMS/HCC); Diabetic polyneuropathy associated with type 2 diabetes mellitus (CMS/HCC); Essential hypertension 04/05/2024 Refill [facility] [address] [place], [place] [phone] Faith Mason MD Atrial flutter, unspecified type (CMS/HCC); Diabetic polyneuropathy associated with type 2 diabetes mellitus (CMS/HCC) 04/04/2024 Refill [facility] [address] [place] [address] Faith Mason MD Essential hypertension from Last [...] Description 07/29/2024 2:15 PM EST Office Visit [facility] [address] [place] [phone] Kay Mackay MD [address] [place] [address] 09/20/2024 3:00 PM EDT Office Visit [facility] [address] [place] [address] Shiva, Karen [address] [place] [address] Health Maintenance Due Date Last Done Comments [...] EST Narrative 04/28/2024 9:15 AM EST ? [facility] ?[address] ?[place] [address] ? CT Scan Report ? Signed ? Patient: Madden Colon,Sarah ?MR#: [id number] ?? [id number] ? : 1965 ?Acct:[id number] ? Age/Sex: 59 / F ?ADM Date: 12/02/24 ? Loc: HO.IMC ?474-1 ? Attending Dr: Delvis Gomez MD ? Ordering Physician: Delvis Gomez MD ?? Date of Service: 04/28/24 ?? Procedure(s): CT angio chest PE protocol ?? Accession Number(s): [id number] ? cc: Delvis Gomez MD; Faith Mason [...] DD/ 0032 ? TD/TT: 04/28/24 0054 ? Taxation Inspector: ? Procedure Note Donotuseinterpreter, Image - 04/28/[address] [place] [address] [address] Scan Report Signed Patient: Vidal Dixon#: [id number] : 1965Acct:[id number] Age/Sex: 59 / FADM Date: 04/25/24 Loc: [facility] 474-[address]: Delvis Gomez MD Ordering Physician: Delvis Gomez MD Date of Service: 04/28/24 Procedure(s): CT angio chest PE protocol Accession Number(s): [id number] cc: Delvis Gomez MD; Faith Mason MD [...] 04/28/24 0912 DD/ 0032 TD/TT: 04/28/24 0054 Taxation Inspector: [facility] External Provider IMG CT PROCEDURES Edited Result - Final * XR Chest 1 View (04/25/2024 3:20 PM EST) Anatomical Region Laterality Modality Chest Radiographic Samira ging 04/25/2024 3:20 PM EST Narrative 04/25/2024 4:45 PM EST ? [facility] ?[address] ?[place] [address] ?XRay Report ? Signed ? Patient: Madden Colon,Sarah ?MR#: [id number] ?? [id number] ? : 1965 ?Acct:[id number] ? Age/Sex: 59 / F ?ADM Date: 12/02/24 ? Loc: HO.ED ? Attending Dr: ? Ordering Physician: Tarun Johnson MD ?? Date of Service: 04/25/24 ?? Procedure(s): XR chest 1V ?? Accession Number(s): [id number] ? cc: Faith Mason MD; Tarun Johnson [...] DD/ 1520 ? TD/TT: 04/25/24 1530 ? Taxation Inspector: PN ? Procedure Note Donleniinterpreter, Image - 04/25/[address] [address] XRay Report Signed Patient: Sarah Dixon#: [id number] : 1965Acct:[id number] Age/Sex: 59 / FADM Date: 04/25/24 Loc: HO.ED Attending Dr: Ordering Physician: Tarun Johnson MD Date of Service: 04/25/24 Procedure(s): XR chest 1V Accession Number(s): [id number] cc: Faith Mason MD; Tarun Johnson MD [...] MD 04/25/2024 04:42 PM EST Dictated By: Gloria Robbins MD Signed By: <Electronically signed by Gloria Robbins MD in OV> 04/25/24 1642 DD/ 1520 TD/TT: 04/25/24 1530 Taxation Inspector: KRISTINA [facility] External Provider IMG XR PROCEDURES Final Result * (ABNORMAL) SARS-CoV-2 RNA, Influenza A/B, and RSV RNA, Ql NAAT (04/25/2024 1:00 PM EST) Influenza A PCR NEGATIVE Negative [facility] Influenza B PCR NEGATIVE Negative [facility] Resp Syncy Virus RNA Qual PCR NEGATIVE Negative [facility] SARS COV2 PCR POSITIVE(A) Negative [facility] Comment:All test results mus t be [...] use by authorized laboratories.Testing performed on the [employer] GeneXpert utilizingreal-time RT-PCR.All SARS CoV2 and positive influenza A/B results arereported to [facility]. 04/25/2024 1:00 PM EST 04/25/2024 1:02 PM EST Generic External Data Provider LAB MICROBIOLOGY - GENERAL ORDERABLES Final Result [facility] [address] [place] [address] [phone] * CT Pelvis w/o Contrast (04/25/2024 11:56 AM EST) Anatomical Region Laterality Modality Body, Pelvis Computed Tomogra phy 04/25/2024 11:5 6 AM EST Narrative 04/25/2024 2:49 PM EST ? [facility] ?[address] ?[place] [address] ? CT Scan Report ? Signed ? Patient: Madden Colon,Sarah ?MR#: [id number] ?? [id number] ? : 1965 ?Acct:[id number] ? Age/Sex: 59 / F ?ADM Date: 04/25/24 ? Loc: HO.ED ? Attending Dr: ? Ordering Physician: Tarun Johnson MD ?? Date of Service: 04/25/24 ?? Procedure(s): CT pelvis wo IV con ?? Accession Number(s): [id number] ? cc: Faith Mason MD; Tarun Johnson [...] 02:44 PM ?? EST ? Dictated By: ?Mairano Stinson MD ? Signed By: ?<Electronically signed by Mariano Lockett MD in OV> ? 04/25/24 1444 ? DD/ 1156 ? TD/TT: 04/25/24 1156 ? Taxation Inspector: ? Procedure Note Donkathi, Image - 04/25/[address] [place] [address] [address] Scan Report Signed Patient: Vidal Dixon#: [id number] : 1965Acct:[id number] Age/Sex: 59 / FADM Date: 04/25/24 Loc: HO.ED Attending Dr: Ordering Physician: Tarun Johnson MD Date of Service: 04/25/24 Procedure(s): CT pelvis wo IV con Accession Number(s): [id number] cc: Faith Mason MD; Tarun Johnson MD [...] MD 04/25/2024 02:44 PM EST Dictated By: Mariano Stinson MD Signed By: <Electronically signed by Mariano Lockett MDin OV> 04/25/24 1444 DD/ 1156 TD/TT: 04/25/24 1156 Taxation Inspector: [facility] External Provider IMG CT PROCEDURES Final Result * CT Head w/o Contrast (04/25/2024 11:56 AM EST) Anatomical Region Laterality Modality Head, Neck Computed Tomogra phy 04/25/2024 11:5 6 AM EST Narrative 04/25/2024 2:03 PM EST ? [facility] ?[address] ?[place] [address] ? CT Scan Report ? Signed ? Patient: Madden Colon,Sarah ?MR#: [id number] ?? [id number] ? : 1965 ?Acct:[id number] ? Age/Sex: 59 / F ?ADM Date: 12/02/24 ? Loc: HO.ED ? Attending Dr: ? Ordering Physician: Tarun Johnson MD ?? Date of Service: 04/25/24 ?? Procedure(s): CT head/brain wo IV con ?? Accession Number(s): [id number] ? cc: Faith Mason MD; Tarun Johnson [...] DD/ 1156 ? TD/TT: 04/25/24 1156 ? Taxation Inspector: JL ? Procedure Note Roseanna, Image - 04/25/[address] [place] [address] [address] Scan Report Signed Patient: Vidal Dixon#: [id number] : 1965Acct:[id number] Age/Sex: 59 / FADM Date: 04/25/24 Loc: HO.ED Attending Dr: Ordering Physician: Tarun Johnson MD Date of Service: 04/25/24 Procedure(s): CT head/brain wo IV con Accession Number(s): [id number] cc: Faith Mason MD; Tarun Johnson MD [...] 04/25/24 1400 DD/ 1156 TD/TT: 04/25/24 1156 Taxation Inspector: ALEX [facility] External Provider IMG CT PROCEDURES Final Result * CT Cervical Spine w/o Contrast (04/25/2024 11:04 AM EST) Anatomical Region Laterality Modality Spine, C-spine Computed Tomogra phy 04/25/2024 11:0 4 AM EST Narrative 04/25/2024 2:03 PM EST ? [facility] ?[address] ?[place] [address] ? CT Scan Report ? Signed ? Patient: Chano Colon,Sarah ?MR#: [id number] ?? [id number] ? : 1965 ?Acct:[id number] ? Age/Sex: 59 / F ?ADM Date: 04/25/24 ? Loc: HO.ED ? Attending Dr: ? Ordering Physician: Tarun Johnson MD ?? Date of Service: 04/25/24 ?? Procedure(s): CT cervical spine wo IV con ?? Accession Number(s): [id number] ? cc: Faith Mason MD; Tarun Johnson [...] DD/ 1104 ? TD/TT: 04/25/24 1156 ? Taxation Inspector: LAEX ? Procedure Note Donotuseinterpreter, Image - 04/25/[address] [address] CT Scan Report Signed Patient: Vidal Dixon#: [id number] : 1965Acct:[id number] Age/Sex: 59 / FADM Date: 04/25/24 Loc: HO.ED Attending Dr: Ordering Physician: Tarun Johnson MD Date of Service: 04/25/24 Procedure(s): CT cervical spine wo IV con Accession Number(s): [id number] cc: Faith Mason MD; Tarun Johnson MD [...] by: Tomi Lerma DO 04/25/2024 02:00 PM [facility] Dictated By: Tomás Lerma DO Signed By: <Electronically signed by Tomás Lerma DO in OV> 04/25/24 1400 DD/ 1104 TD/TT: 04/25/24 1156 Taxation Inspector: ALEX [facility] External Provider IMG CT PROCEDURES Final [...] EDT) Hepatitis A IgM REACTIVE (Abnormal) Nonreactive [facility] Comment:For additional infor page, please refer tohttp://Recycling Angel.Actacell/faq/YBM728(This link is being provided for informational/educational purposes only.)THIS TEST PERFORMED AT:[facility] [address] [phone] DIRECTOR: EVITA ALICEA MD ~Hepatitis B Surface Antibody REACTIVE (Abnormal) Nonreactive [facility] Comment:THIS TEST PERFORMED AT:[facility] [address] [phone] DIRECTOR: EVITA ALICEA MD Hepatitis B Core Antibody NON-REACTI VE Nonreactive [facility] Comment:For additional infor page, please refer tohttp://[employer].Actacell/faq/RYC765(This link is being provided for informational/educational purposes only.)THIS TEST PERFORMED AT:[facility] [address] [phone] DIRECTOR: EVITA ALICEA MD Hepatitis C Antibody NON-REACTI VE Nonreactive [facility] Comment:HCV antibody was non -reactive. There is no laboratoryevidence of HCV infection.In most cases, no further action is required. However,if recent HCV exposure is suspected, a test for HCV RNA(test code 88615) is suggested.For additional information please refer tohttp://[employer].Actacell/faq/SUM26u3(This link is being provided for informational/educational purposes only.)THIS TEST PERFORMED AT:[facility] [address] [phone] DIRECTOR: EVITA ALICEA MD Hepatitis B Surface Ag NON-REACTI VE Negative [facility] Comment:For additional infor mation, please refer tohttp://[employer].Actacell/faq/XER512(This link is being provided for informational/educational purposes only.)THIS TEST PERFORMED AT:[facility] [address] [phone] DIRECTOR: EVITA ALICEA MD Blood 01/26/2024 2:16 PM EDT 01/26/2024 4:08 PM EDT Faith No MD LAB BLOOD ORDERABLES Final Result [facility] [address] [place] [phone] * HIV-1/2 Antigen and Antibodies, Fourth Generation, with Reflexes (01/26/2024 2:16 PM EDT) HIV AB/AG NON-REAC TIVE Nonreactive [facility] Comment:HIV-1 antigen and HI V-1/HIV-2 [...] for this purpose.For additional information please refer tohttp://[employer].Actacell/faq/HQZ787(This link is being provided for informational/educational purposes only.)The performance of this assay has not been clinicallyvalidated in patients less than 2 years old.THIS TEST PERFORMED AT:[facility] [address] [phone] DIRECTOR: EVITA ALICEA MD Blood Venous blood specimen / Unknown 01/26/2024 2:16 PM EDT 01/26/2024 4:08 PM EDT us Faith No MD LAB BLOOD ORDERABLES Final Result Performing Organization Address [facility] Co de Phone Number [facility] [address] [place] [phone] * (ABNORMAL) Lipid Panel with Reflex to Direct LDL (12/01/2023 1:06 PM EDT) Triglycerides 81 <150 mg/dL [facility] Comment:Desirable Triglyceri de: less than 150 mg/dLBorderline High Triglyceride 150-199 mg/dLHigh Triglyceride: 200-499 mg/dLVery High Triglyceride: greater than or equal to 5OO mg/dL Cholesterol 77 <200 mg/dL [facility] Comment:Desirable Cholestero l: less than 200 mg/dLBorderline High Cholesterol: 200-239 mg/dLHigh Cholesterol: greater than 239 mg/dL LDL Cholesterol Calculated 30 <100 mg/dL [facility] Comment:Desirable LDL: less than 100 mg/dLNear Optimal/Above Optimal LDL: 110- 129 mg/dLBorderline High LDL: 130-159 mg/dLHigh LDL: 160-189 mg/dLVery High LDL: greater than or equal to 190 mg/dL HDL Cholesterol 31(L) >40 mg/dL [facility] Comment:Desirable HDL: great er than 40 mg/dL Note: This HDL assay may give artificially low results in patients with liver disease. Blood 12/01/2023 1:06 PM EDT 12/01/2023 1:11 PM EDT us Faith No MD LAB BLOOD ORDERABLES Final Result Performing Organization Address [facility]/ZIP Co de Phone Number [facility] [address] [place] [phone] * HPV mRNA E6/E7 w/Reflex to HPV Genotypes 16, 18/45 (10/13/2023 10:05 AM EDT) HPV nRNA E6/E7 Not Detected Not Detected [facility] Comment:Methodology: Transcr iption-Mediated AmplificationThis assay detects E6/E7 viral messenger RNA (mRNA) from 14high-risk HPV types (16,18,31,33,35,39,45,51,52,56,58,59,66,68).Cervical sources are required for HPV testing.If a vaginal source from a patient who has had atotal hysterectomy with removal of cervix wassubmitted, please contact the testing laboratoryfor alternative testing options.For additional information, please refer tohttp://education.Actacell/faq/XZN857e2(This link if provided for information/educational purposes only.)THIS TEST WAS PERFORMED AT:[facility] [place] [phone] ALICEA MD HPV mRNA E6/E7 [facility] HPV 16 RNA [facility] HPV 18/45 RNA [facility] 10/13/2023 10:0 5 AM EDT 10/14/2023 11:40 AM EDT us Ofelia Haskins [facility] CYTOLOGY ORDERABLES F inal Result [facility] [address] [place] [phone] [phone] * Pap Smear (10/13/2023 10:05 AM EDT) Swab Cervix uteri structure / Unknown 10/13/2023 10:05 AM EDT 10/14/2023 11:40 AM EDT Narrative [facility] - 11/02/2023 10:48 AM EDT ----- ------- Name: Sarah Dixon ? Age/Sex: 58/F ? : 1965 Unit#: [id number] ?? Attend Dr: OFELIA HASKINS CNM ?Re10/13/23 ?Status: DEP REF ? [facility] ? Disch: ? ----- ------- SPEC : [id number] ? RECD: 10/14/23 ? STATUS: ??SOUT ? REQ NUM: [id number] ? NADJA: 10/13/23-5 ? SUBM DR: OFELIA HASKINS CNM ? ENTERED: ??10/14/23-9498 ?SP TYPE: Pap Smr ?OTHR : ? [...] 66, 68) ? HPV testing performed by [employer], [place], [place]. ??See reference laboratory ?? portion of the EMR for entire report. ?Clinical Information LMP:Post menopausal Previous PAP test:Unk ? Material Received ?? ThinPrep-Cervical ----- ------- Signed (signature on file) Debo Schroeder Robbie 11/02/23 1048 ? ----- ------- ? END OF REPORT ? Ofelia Haskins [facility] CYTOLOGY ORDERABLES F inal Result [facility] [address] [place] [phone] [phone] * Cologuard?? colon cancer screening (09/17/2023 12:00 PM EDT) Cologuard Result Negative Negative 09/25/19 10:09 AM EDT [facility] (CLIA #:[id number]) Comment: NEGATIVE TEST RESULT. A negative Cologuard [...] cancer. ??Following a negative Cologuard result, the English Cancer Society and U.S. Multi-Society Task Force screening guidelines recommend a Cologuard re-screening interval of 3 years. References: English Cancer Society Guideline for Colorectal Cancer Screening: https://www.cancer.org/cancer/wcich-namtzl-fyvzlb/qakctaykq-gftjlejqj-zjmbzep/ac s-rec ommendations.html.; Maxi MACIAS, Robinson REESE, Barry TateK, Colorectal Cancer Screening: Recommendations for Physicians and Patients from the U.S. Multi-Society Task Force on Colorectal Cancer Screening , Am J Gastroenterology 2017; 112:8646-3687. TEST DESCRIPTION: Composite algorithmic analysis of stool [...] Horne. et al, N Engl J Med 2014;370(14):6096-6609.) Cologuard may produce a false negative or false positive result (no colorectal cancer or precancerous polyp present at colonoscopy follow up). A negative Cologuard test result does not guarantee the absence of CRC or advanced adenoma (pre-cancer). The current Cologuard screening interval is every 3 years. (English Cancer Society and U.S. Multi-Society Task Force). Cologuard performance data in a 10,000 patient pivotal study using colonoscopy as the reference method can be accessed at the following location: www.ContentWatch.Trig Medical/results. Additional description of the Cologuard test process, warnings and precautions can be found at www.Sheer Driverd.com. Stool specimen (specimen) 09/17/2023 12:00 PM EDT 09/18/2023 10:51 AM EDT Faith No MD LAB MOLECULAR DIAGNOS TICS ORDERABLES Final Result [facility] (CLIA #:[id number]) [place] [address], * BI Mammogram Screening Tomosynthesis Bilateral (07/16/2023 11:25 AM EST) Anatomical Region Laterality Modality Breast Bilateral Mammography 07/16/2023 11:2 5 AM EST Narrative 08/08/2023 10:45 PM EDT ? [facility] ? [address] ?[place] [address] ? Mammography Report ? Signed ? Patient: Madden Colon,Sarah ?MR#: [id number] ?? [id number] ? : 1965 ?Acct:[id number] ? Age/Sex: 58 / F ?ADM Date: 07/16/23 ? Loc: HO.MAMMO ? Attending Dr: Faith No MD ? Ordering Physician: Faith Mason MD ?Results: ?? 1Negative ? Date of Service: 07/16/23 ?Follow Up: 1 Year From Orig ?? inal Mammogram ? Procedure(s): MM tomosynthesis screening BI ?? Accession Number(s): [id number] ? cc: Faith Mason MD ? EXAMINATION: [...] 08/08/232241 ? DD/ 1125 ? TD/TT: ? Taxation Inspector: ? Procedure Note Roseanna, Image - 08/08/2023 [facility] [address] [place] [address] Mammography Report Signed Patient: Sarah Dixon#: [id number] : 1965Acct:[id number] Age/Sex: 58 / FADM Date: 07/16/23 Loc: HO.MAMMO Attending Dr: Faith No MD Ordering Physician: Faith Mason MDResults: 1Negative Date of Service: 07/16/23Follow Up: 1 Year From Orig inal Mammogram Procedure(s): MM tomosynthesis screening BI Accession Number(s): [id number] cc: Faith Mason MD EXAMINATION: MM SCREENING [...] in OV> 08/08/23 2242 DD/ 1125 TD/TT: Taxation Inspector: Faith No MD IMG BI PROCEDURES Fin al Result * MICROALBUMIN, RANDOM (07/23/2020 9:00 AM EST) Creatinine Urine 140.39 mg/dL [facility] Microalbum/Creati nine Ratio Ur 419.5 ug/mg cr [facility] Comment: ?Albumin/Creatinine Ratio Reference Ranges: ? Normal: < 30 ug/mg creatinine ? Microalbuminuria: ??30 - 300 ug/mg creatinine Clinical Albuminuria: ??> 300 ug/mg creatinine Microalbumin Urine 589.0 mg/L [facility] 07/23/2020 9:00 AM EST Historical Provider HISTORICAL/NON ORDERABLE LABS Final Result [facility] [address] [place] [address], from Last 3 Months or Most Recently Relevant to Health Maintenance Insurance [place] [facility] [place] STAND ADULT Care Teams Director Of Plant Operations Relationship Specialty Start Date End Date Faith Mason MD [address] [place] [phone] PCP - General Family Medicine 04/12/19 Linda Peralta Soap MixerRooming House Inspector 06/08/24
--- OUTSIDE RECORDS SUMMARY | 2024-06-28 10:52 | XMS_ITS | Encounter Summary ---
Author Organization [employer] Address [address] [facility] 7t [place] [address] Care Team Providers Care Training Project Manager Name Role Phone Faith Mason MD Primary Care Provide r Reason for Visit * Reason Onset Date Comments FYI 08/13/2023 Encounter Details Date Type Department Care Team ([facility] st Contact Info) Description 08/13/2023 Telephone [facility] MEDICINE [address] [place], [place] [phone] Faith Mason MD [address] [place] [address] FYI Social History Tobacco Use Types Packs/Day [...] of today. Any questions contact Tameka at [phone] documented in this encounter Plan of Treatment Upcoming Encounters Date Type Department Care Team (Late st Contact Info) Description 07/29/2024 2:15 PM EST Office Visit [facility] MEDICINE [address] [place] [phone] Kay Mackay MD [address] [place] [address] 09/20/2024 3:00 PM EDT Office Visit [facility] ADULT DENTAL [address] [place] [address] Karen Shannon [address] [place] [address] documented as of this encounter Visit Diagnoses Not on filedocumented in this encounter Additional Health Concerns Assessment Noted Time PHQ-9 Depression Total Score: 14 023 2:21 PM EDT documented as of this encounter Care Teams Training Project Manager Relationship Specialty Start Date End Date Faith Mason MD [address] [place] [address] PCP - General Family Medicine 04/12/19 Linda Peralta Manager Human ResourcesRemnants Cutter 06/08/24 documented as of this encounter
--- OUTSIDE RECORDS SUMMARY | 2024-06-28 10:52 | XMS_ITS | Encounter Summary ---
Author Organization [employer] Address [address] [place] [address] 7t [place] [address] Care Team Providers Care Php Website Developer Name Role Phone Faith Mason MD Primary Care Provide r Reason for Visit * Reason Comments Med Refill Encounter Details Date Type Department Care Team (Late st Contact Info) Description 05/31/2024 Refill [facility] MEDICINE [address] [place], [place] [phone] Faith Mason MD [address] [place] [address] Atrial flutter, unspecified type (CMS/HCC); Diabetic polyneuropathy [...] Description 07/29/2024 2:15 PM EST Office Visit [facility] MEDICINE [address] [place] [address] Kay Mackay MD [address] [place] [address] 09/20/2024 3:00 PM EDT Office Visit [facility] ADULT DENTAL [address] [place] [address] Karen Shannon [address] [place] [address] documented as of this encounter Visit Diagnoses Diagnosis Atrial flutter, unspecified type (CMS/HCC) Diabetic polyneuropathy associated with type 2 diabetes mellitus (CMS/HCC) Polyarthralgia Pain in joint, multiple sites documented in this encounter Additional Health Concerns Assessment Noted Time PHQ-9 Depression Total Score: 6 11/24/19 24 2:35 PM EDT documented as of this encounter Care Teams Php Website Developer Relationship Specialty Start Date End Date Faith Mason MD [address] [place] [phone] PCP - General Family Medicine 04/12/19 documented as of this encounter
--- OUTSIDE RECORDS SUMMARY | 2024-06-28 10:52 | XMS_ITS | Encounter Summary ---
Author Organization [employer] Address [address] [facility] 7t [place] [address] Care Team Providers Care Machine Setter And Repairer Name Role Phone Faith Mason MD Primary Care Provide r Encounter Details Date Type Department Care Team ([facility] st Contact Info) Description 06/16/2024 Telephone [facility] MEDICINE [address] [place], [place] [phone] Faith Mason MD [address] [place], [place] [phone] Social History Tobacco Use Types Packs/Day Years [...] medical records. Any question please contact pt [phone] documented in this encounter Plan of Treatment Upcoming Encounters Date Type Department Care Team (Late st Contact Info) Description 07/29/2024 2:15 PM EST Office Visit [facility] MEDICINE [address] [place] [address] Kay Mackay MD [address] [place] [address] 09/20/2024 3:00 PM EDT Office Visit [facility] ADULT DENTAL [address] [place] [address] Karen Shannon [address] [place], [place] [phone] documented as of this encounter Visit Diagnoses Not on filedocumented in this encounter Additional Health Concerns Assessment Noted Time PHQ-9 Depression Total Score: 6 11/24/19 24 2:35 PM EDT documented as of this encounter Care Teams Machine Setter And Repairer Relationship Specialty Start Date End Date Faith Mason MD [address] [place] [address] PCP - General Family Medicine 04/12/19 Linda Peralta Silver DesignerBond Clerk 06/08/24 documented as of this encounter
--- OUTSIDE RECORDS SUMMARY | 2024-06-28 10:52 | XMS_ITS | Clinical Summary ---
Author Organization [facility] Address [address] [address] Phone Care Team Providers Care Spinner Hand Name Role Phone Ines Zamora MD Primary Care Provider [phone] Medications lisinopril 10 MG tabletIndicatio ns:Stage 3 [...] Encounters Date Type Department Care Team Description 06/24/2024 Treatment [facility] [address] [address] Jeffy Tineo MD 06/22/2024 Treatment [facility] [address] [address] Jeffy Tineo MD 06/17/2024 Treatment [facility] [address] [address] Jeffy Tineo MD 05/27/2024 Treatment [facility] [address] [address] Jeffy Tineo MD 05/24/2024 Treatment [facility] [address] [address] Jeffy Tineo MD 05/09/2024 Treatment [facility] [address] [address] Jeffy Tineo MD 04/19/2024 Treatment [facility] [address] [address] Jeffy Tineo MD 04/13/2024 Orders Only [facility] [address] [address] Jeffy Tineo MD 04/11/2024 Treatment [facility] [address] [address] Jeffy Tineo MD 04/09/2024 Treatment [facility] [address] [address] Alber Rothman MD 04/04/2024 Treatment [facility] [address] [address] Jeffy Tineo MD 03/28/2024 Treatment [facility] [address] [address] Jeffy Tineo MD from Last 3 Months [...] Name Priority Date/Time Associated Diagnosis Comments HEMOGLOBIN Routine 06/24/2024 3:00 AM EST COLLECTION DATE (HC) Routine 06/24/2024 3:00 AM EST HEMOGLOBIN AND HEMATOCRIT, BLOOD Routine 06/22/2024 3:00 [...] EST KT/V NATURAL LOG, URR (HC) Routine 06/01/2024 3:00 AM EST HEMOGLOBIN AND HEMATOCRIT, BLOOD Routine 05/22/2024 3:00 AM EST PHOSPHATE ( PHOSPHORUS) Routine 05/13/2024 3:00 AM EST LIH (HC) Routine 05/13/2024 3:00 AM EST POTASSIUM Routine 05/13/2024 3:00 AM EST HEMOGLOBIN AND HEMATOCRIT, BLOOD Routine 05/11/2024 3:00 AM EST TRANSFERRIN SATURATION Routine 3:00 AM EST PROTEIN, TOTAL, SERUM Routine 05/04/2024 3:00 AM EST MAGNESIUM Routine 05/04/2024 3:00 AM EST ELECTROLYTE PANEL Routine 05/04/2024 3:0 0 AM EST LACTATE DEHYDROGENASE Routine 05/04/2024 3:00 AM EST LIH (HC) Routine 05/04/2024 3:00 AM EST CREATININE, SERUM [...] 3:00 AM EST CREATININE, SERUM Routine 03/30/2024 3:0 0 AM EST BILIRUBIN, TOTAL Routine 03/30/2024 3:00 AM EST AST Routine 03/30/2024 3:00 AM EST ALT Routine 03/30/2024 3:00 AM EST ALKALINE PHOSPHATASE Routine 03/30/2024 3:00 AM EST CALCIUM PHOSPHORUS PRODUCT, ADJUSTED (HC) Routine 03/30/2024 3:00 AM EST FERRITIN Routine 03/30/2024 3:00 AM EST CBC AND DIFFERENTIAL Routine 03/30/2024 3:00 AM EST KT/V NATURAL LOG, URR (HC) Routine 03/30/2024 3:00 AM EST from Last 3 Months Results * Collection Date (06/24/2024 3:00 AM EST) Collection Date See Comment [facility] Comment: Patient sample received may exceed specimen stability, based on the collection date electronically provided. ??When reviewing patient results, verify collection information and consider specimen stability before acting on any critical or panic results. 06/24/2024 3:00 AM EST us Jeffy Tineo MD LAB [id number] SOLICITED RESULTS Final Result Performing Organization Address City/[facility]/ZIP Co de Phone Number [facility] [address] [place] [address] * (ABNORMAL) Hemoglobin (06/24/2024 3:00 AM EST) Hgb 9.9(L) 11.2 - 15.7 g/dL [facility] Hemoglobin x 3 29.7(L) 33.6 - 47.1 g/dL [facility] 06/24/2024 3:00 AM EST 06/27/2024 1:01 PM EST us Jeffy Tineo MD LAB BLOOD ORDERABLES Final Re sult Performing Organization Address [facility] Co de Phone Number [facility] [address] [place] [address] * (ABNORMAL) Hemoglobin and hematocrit (06/22/2024 3:00 AM EST) Only the most recent of8 resultswithin the time period is included. Hgb 9.8(L) 11.2 - 15.7 g/dL [facility] Hematocrit 30.3(L) 34.1 - 44.9 % [facility] Hemoglobin x 3 29.4(L) 33.6 - 47.1 g/dL [facility] 06/22/2024 3:00 AM EST 06/23/2024 12:39 PM EST us Jeffy Tineo MD LAB BLOOD ORDERABLES Final Re sult Performing Organization Address [facility] de Phone Number [facility] [address] [place] [address] * LIH (06/17/2024 3:00 AM EST) Only the most recent of7 resultswithin the time period is included. Lipemia Normal Normal [facility] Icterus Normal Normal [facility] Hemolysis Normal Normal [facility] 06/17/2024 3:00 AM EST 06/18/2024 2:10 PM EST Jeffy Tineo MD LAB [id number] SOLICITED RESULTS Final Result Performing Organization Address [facility] de Phone Number [facility] [address] [place] [address] * Calcium, Adjusted w Albumin (06/17/2024 3:00 AM EST) Calcium 10.0 8.6 - 10.3 mg/dL [facility] Albumin 4.2 3.6 - 5.4 g/dL [facility] Calcium, Adjusted Total 10.0 8.6 - 10.3 mg/dL [facility] 06/17/2024 3:00 AM EST 06/18/2024 2:10 PM EST Jeffy Tineo MD LAB BLOOD ORDERABLES Final Re sult Performing Organization Address [facility] de Phone Number [facility] [address] [place] [address] * Confirmation Test HCV (06/01/2024 3:00 AM EST) Hep C Ab Confirmation Not needed [facility] 06/01/2024 3:00 AM EST 06/02/2024 1:33 PM EST Jeffy Tineo MD LAB BLOOD ORDERABLES Final Re sult Performing Organization Address [facility] de Phone Number [facility] [address] [place] [address] * (ABNORMAL) Kt/V Natural Log, URR (06/01/2024 [...] PM EST us Jeffy Tineo MD LAB [id number] SOLICITED RESULTS Final Result [facility] [address] [place] [address] * (ABNORMAL) Calcium Phosphorus Product, Adjusted (06/01/2024 [...] PM EST us Jeffy Tineo MD LAB [id number] SOLICITED RESULTS Final Result Performing Organization Address City/[facility] Co de Phone Number [facility] [address] [place] [address] * HEPATITIS C ABS W/REFLEX RNA DETECTR (06/01/2024 3:00 AM EST) Hep C Virus Ab Non-Reacti ve Non-Reacti ve [facility] 06/01/2024 3:00 AM EST 06/02/2024 2:21 PM EST Jeffy Tineo MD LAB [id number] SOLICITED RESULTS Final Result Performing Organization Address [facility] de Phone Number [facility] [address] [place] [address] * (ABNORMAL) TSAT (06/01/2024 3:00 AM EST) [...] ORDERABLES Final Re sult Performing Organization Address [facility] de Phone Number [facility] [address] [place] [address] * Aluminum level (06/01/2024 3:00 AM EST) Aluminum 4 1 - 20 ug/L [facility] 06/01/2024 3:00 AM EST 06/02/2024 2:46 PM EST Jeffy Tineo MD LAB BLOOD ORDERABLES Final Re sult Performing Organization Address [facility] de Phone Number [facility] [address] [place] [address] * Vitamin D 25 Hydroxy (06/01/2024 3:00 AM EST) [facility] Vitamin D, 25-Hydroxy 48 30 - 100 ng/mL [facility] Comment: Status ? Adult ?? Pediatric Deficient: ? <20 ? <15 Insufficient: ??20-29 ?? 15-19 Sufficient: ?30-100 ??20-100 06/01/2024 3:00 AM EST 06/02/2024 2:21 PM EST Jeffy Tineo MD LAB BLOOD ORDERABLES Final Re sult Performing Organization Address [facility] de Phone Number [facility] [address] [place] [address] * Hepatitis B Surface Antibody (06/01/2024 3:00 AM EST) Only the most recent of2 resultswithin the time period is included. [facility] Hep B Surface Antibody 19 mIU/mL [facility] Comment: Interpretation: <10: No Immunity >=10: Probable Immunity 06/01/2024 3:00 AM EST 06/02/2024 2:21 PM EST Jeffy Tineo MD LAB BLOOD ORDERABLES Final Re sult Performing Organization Address [facility] de Phone Number [facility] [address] [place] [address] * (ABNORMAL) CBC and Differential (06/01/2024 3:00 AM EST) Only the most recent of3 resultswithin the time period is included. [facility] DIFFERENTIAL MANUAL, 2 Not Indicated [facility] White [...] ORDERABLES Final Re sult Performing Organization Address [facility] de Phone Number [facility] [address] [place] [address] * Uric Acid (06/01/2024 3:00 AM EST) Uric Acid 6.0 2.3 - 6.6 mg/dL [facility] 06/01/2024 3:00 AM EST 06/02/2024 2:21 PM EST Jeffy Tineo MD LAB BLOOD ORDERABLES Final Re sult Performing Organization Address [facility] de Phone Number [facility] [address] [place] [address] * ALT (06/01/2024 3:00 AM EST) Only the most recent of3 resultswithin the time period is included. ALT (SGPT) 19 10 - 49 U/L [facility] 06/01/2024 3:00 AM EST 06/02/2024 2:21 PM EST us Jeffy Tineo MD LAB BLOOD ORDERABLES Final Re sult Performing Organization Address [facility] de Phone Number [facility] [address] [place] [address] * AST (06/01/2024 3:00 AM EST) Only the most recent of3 resultswithin the time period is included. AST (SGOT) 17 <34 U/L [facility] 06/01/2024 3:00 AM EST 06/02/2024 2:21 PM EST Jeffy Tineo MD LAB BLOOD ORDERABLES Final Re sult Performing Organization Address [facility] de Phone Number [facility] [address] [place] [address] * Protein, total (06/01/2024 3:00 AM EST) Only the most recent of3 resultswithin the time period is included. Total Protein 7.2 6.4 - 8.9 g/dL [facility] 06/01/2024 3:00 AM EST 06/02/2024 2:21 PM EST Jeffy Tineo MD LAB BLOOD ORDERABLES Final Re sult Performing Organization Address [facility] de Phone Number [facility] [address] [place] [address] * (ABNORMAL) Alkaline phosphatase (06/01/2024 3:00 AM EST) Only the most recent of3 resultswithin the time period is included. Alkaline Phosphatase 118(H) 46 - 116 U/L [facility] 06/01/2024 3:00 AM EST 06/02/2024 2:21 PM EST us Jeffy Tineo MD LAB BLOOD ORDERABLES Final Re sult Performing Organization Address [facility] de Phone Number [facility] [address] [place] [address] * PTH, Intact (06/01/2024 3:00 AM EST) PTH, Intact 622 160 - 721 pg/mL [facility] Comment: Suggested (KDIGO) ESRD maintenance range is two to nine times the upper normal limit (80.1 pg/mL) for the laboratory. 06/01/2024 3:00 AM EST 06/02/2024 2:21 PM EST Jeffy Tineo MD LAB BLOOD ORDERABLES Final Re sult Performing Organization Address [facility] de Phone Number [facility] [address] [place] [address] * Magnesium (06/01/2024 3:00 AM EST) Only the most recent of3 resultswithin the time period is included. Pathologist [facility] Magnesium 2.2 1.9 - 2.7 mg/dL [facility] 06/01/2024 3:00 AM EST 06/02/2024 2:21 PM EST Jeffy Tineo MD LAB BLOOD ORDERABLES Final Re sult Performing Organization Address [facility] de Phone Number [facility] [address] [place] [address] * (ABNORMAL) Lactate dehydrogenase (06/01/2024 3:00 AM EST) Only the most recent of3 resultswithin the time period is included. Pathologist [facility] LDH 286(H) 120 - 246 U/L [facility] 06/01/2024 3:00 AM EST 06/02/2024 2:21 PM EST Jeffy Tineo MD LAB BLOOD ORDERABLES Final Re sult Performing Organization Address [facility] de Phone Number [facility] [address] [place] [address] * (ABNORMAL) Hemoglobin A1c (06/01/2024 3:00 AM [...] ORDERABLES Final Re sult Performing Organization Address [facility] de Phone Number [facility] [address] [place] [address] * (ABNORMAL) Glucose, random (06/01/2024 3:00 AM EST) Only the most recent of3 resultswithin the time period is included. Glucose 414(H) 74 - 109 mg/dL [facility] 06/01/2024 3:00 AM EST 06/02/2024 2:21 PM EST Jeffy Tineo MD LAB BLOOD ORDERABLES Final Re sult Performing Organization Address [facility] de Phone Number [facility] [address] [place] [address] * (ABNORMAL) Ferritin (06/01/2024 3:00 AM EST) Only the most recent of2 resultswithin the time period is included. Ferritin 1,036(H) 10 - 291 ng/mL [facility] 06/01/2024 3:00 AM EST 06/02/2024 2:21 PM EST Jeffy Tineo MD LAB BLOOD ORDERABLES Final Re sult Performing Organization Address [facility] de Phone Number [facility] [address] [place] [address] * (ABNORMAL) Creatinine, serum (06/01/2024 3:00 AM EST) Only the most recent of3 resultswithin the time period is included. Creatinine 7.09(H) 0.55 - 1.02 mg/dL [facility] 06/01/2024 3:00 AM EST 06/02/2024 2:21 PM EST Jeffy Tineo MD LAB BLOOD ORDERABLES Final Re sult Performing Organization Address [facility] de Phone Number [facility] [address] [place] [address] * Bilirubin, total (06/01/2024 3:00 AM EST) Only the most recent of3 resultswithin the time period is included. Total Bilirubin 0.7 0.3 - 1.2 mg/dL [facility] 06/01/2024 3:00 AM EST 06/02/2024 2:21 PM EST Jeffy Tineo MD LAB BLOOD ORDERABLES Final Re sult Performing Organization Address [facility] de Phone Number [facility] [address] [place] [address] * (ABNORMAL) Lipid panel (06/01/2024 3:00 AM [...] ORDERABLES Final Re sult Performing Organization Address [facility] de Phone Number [facility] [address] [place] [address] * (ABNORMAL) Electrolyte panel (06/01/2024 3:00 AM [...] ORDERABLES Final Re sult Performing Organization Address [facility] de Phone Number [facility] [address] [place] [address] * Potassium (05/13/2024 3:00 AM EST) Potassium 4.6 3.4 - 5.0 mEq/L [facility] 05/13/2024 3:00 AM EST 05/14/2024 2:41 PM EST Jeffy Tineo MD LAB BLOOD ORDERABLES Final Re sult Performing Organization Address City/[facility] Co de Phone Number [facility] [address] [place] [address] * (ABNORMAL) Phosphorus (05/13/2024 3:00 AM EST) Only the most recent of3 resultswithin the time period is included. Phosphorus, Serum 5.8(H) 2.5 - 5.0 mg/dL [facility] 05/13/2024 3:00 AM EST 05/14/2024 2:41 PM EST Jeffy Tineo MD LAB BLOOD ORDERABLES Final Re sult Performing Organization Address [facility] de Phone Number [facility] [address] [place] [address] from Last 3 Months Insurance [place]ID [place] Care Teams Spinner Hand Relationship Specialty Start Date End Date Ines Zamora MD [address] [place] [phone] PCP - General 06/04/20
--- OUTSIDE RECORDS SUMMARY | 2024-06-28 10:52 | XMS_ITS | Encounter Summary ---
Author Organization [employer] Address [address] [facility] 7t [place] [address] Care Team Providers Care Training And Development Project Leader Name Role Phone Faith Mason MD Primary Care Provide r Reason for Visit * Reason Comments Med Refill Encounter Details Date Type Department Care Team (Late st Contact Info) Description 04/04/2024 Refill [facility] PEDS [address] [place], [place] [phone] Faith Mason MD [address] [place] [address] Essential hypertension Social History Tobacco Use Types [...] Office Visit [facility] MEDICINE [address] [place] [address] Kay Mackay MD [address] [place] [address] 09/20/2024 3:00 PM EDT Office Visit [facility] ADULT DENTAL [address] [place] [address] Karen Shannon [address] [place] [address] documented as of this encounter Visit Diagnoses Diagnosis Essential hypertension Unspecified essential hypertension documented in this encounter Additional Health Concerns Assessment Noted Time PHQ-9 Depression Total Score: 6 11/24/19 24 2:35 PM EDT documented as of this encounter Care Teams Training And Development Project Leader Relationship Specialty Start Date End Date Faith Mason MD [address] [place] [address] PCP - General Family Medicine 04/12/19 Linda Peralta Design Verification EngineerVeneer Patcher 06/08/24 documented as of this encounter
--- OUTSIDE RECORDS SUMMARY | 2024-06-28 10:52 | XMS_ITS | Encounter Summary ---
Author Organization [employer] Address [address] [place] [address] 7t [place] [address] Care Team Providers Care Patient Transportation Driver Name Role Phone Faith Mason MD Primary Care Provide r Reason for Visit * Reason Onset Date Comments Durable Medical Equipment 10/30/2022 Encounter Details Date Type Department Care Team (Late st Contact Info) Description 10/30/2022 Telephone [facility] MEDICINE [address] [place], [place] [phone] Faith Mason MD [address] [place] [address] Durable Medical Equipment Social History Tobacco Use [...] encounter Miscellaneous Notes * Telephone Encounter - lElen Corado - 10/31/2022 10:07 AM EDT Script for DM shoes generated for signature * Telephone Encounter - Blayne Leos - 10/30/2022 12:52 PM EDT Tc from caregiver requesting a script for diabetic shoes ( size 8 ) , would like script sent to [facility]. Please contact at [phone] documented in this encounter Plan of Treatment Upcoming Encounters Date Type Department Care Team ([facility] st Contact Info) Description 07/29/2024 2:15 PM EST Office Visit [facility] MED[facility] [address] [place] [address] Kay Mackay MD [address] [place], [place] [phone] 09/20/2024 3:00 PM EDT Office Visit [facility] ADULT DENTAL [address] [place], [place] [phone] Jacob Shannonaris [address] [place], [place] [phone] documented as of this encounter Visit Diagnoses Not on filedocumented in this encounter Additional Health Concerns Assessment Noted Time PHQ-9 Depression Total Score: 14 023 2:21 PM EDT documented as of this encounter Care Teams Patient Transportation Driver Relationship Specialty Start Date End Date Faith Mason MD [address] [place], [place] [phone] PCP - General Family Medicine 04/12/19 Linda Peralta Rail Car MechanicDirector Of Operations Support 06/08/24 documented as of this encounter
== END 2024-06-28 10:57 | disposition home or self-care (01) ==
PROVIDERS: PCP Internal Medicine; Visit Provider Nurse Practitioner Family
DX: I25.10 Atherosclerotic heart disease of native coronary artery without angina pectoris (principal); Z98.890 Other specified postprocedural states; I48.92 Unspecified atrial flutter; I12.0 Hypertensive chronic kidney disease with stage 5 chronic kidney disease or end stage renal disease; N18.6 End stage renal disease; Z01.810 Encounter for preprocedural cardiovascular examination; I21.4 Non-ST elevation (NSTEMI) myocardial infarction
CPT/HCPCS: 99214

== ENCOUNTER → 2024-06-28 10:07 | Outpatient (BNVA) | payer MEDICAID, SELFPAY | PROVIDERS: PCP Internal Medicine; Visit Provider Nurse Practitioner Family | DX: Z01.810 Encounter for preprocedural cardiovascular examination (principal); I25.10 Atherosclerotic heart disease of native coronary artery without angina pectoris; I48.92 Unspecified atrial flutter; I12.9 Hypertensive chronic kidney disease with stage 1 through stage 4 chronic kidney disease, or unspecified chronic kidney disease; N18.6 End stage renal disease; I21.4 Non-ST elevation (NSTEMI) myocardial infarction; Z98.890 Other specified postprocedural states | CPT/HCPCS: 99212 ==

== ENCOUNTER 2024-07-05 14:28 | Outpatient (AMB) | payer MEDICAID, SELFPAY ==
--- NOTE | 2024-07-05 13:31 | MHC.OFFVIS ---
Vital Signs 07/05/24 14:35 Height 5 ft 3 in Weight 218 lb 4.122 oz BMI 38.7 BP 122/76 Blood Pressure Location Rt brachial Position Sitting Pulse 67 Pulse Source Pulse Oximeter Intake Visit Reasons: DM Intake Note: Patient presents today for a follow-up on Type 2 Diabetes Mellitus: Last Diabetic Eye exam: 12/02/23 Last Podiatry Exam: Does not see a Cardiology Consultant Most recent HbA1c: 8.0%, 07/05/2024 Random Glucose- 361 mg/dL, Today Deportation Officer Required: Yes Deportation Officer Language: Parts Room Assistant Services: Deportation Officer Offered & Declined Accompanied by: Self / Same As Patient Allergies No Known Allergies Allergy (Verified 06/28/24 10:12) HPI Comments Details: Patient is a?59-year-old female with DM type 2 who presents for continued management of her diabetes. She was last seen in February. , hemoglobin A1c 07/05/2024 % 12/03/23 9.1%. Past medical history includes :? diabetes type 2, end-stage renal disease,dialysis MWF Micro and macrovascular complications: end-stage renal disease, retinopathy with current anti VEGF therapy Previous medication: Degludec diarrhea Diabetes medications: ? Toujeo 14 units Humalog before meals 80-150 8 units 151-200 10 units 201 to 300 12 units Over 300 14 units Januvia 25 mg PO daily Meter readings: tests twice daily avg 292 am running high 200's pm running up to 440 Hyperglycemia: + polyuria Last LDL 30 12/15 Exercise: limited Risk Management Specialist - CDE education: sees de[facility] women at dialysis Cardiology Consultant: self care Denies numbness, tingling, cramping Ophthalmology evaluation: last eye appointment 12/02/23 Has had retinal injections. I confirmed her dosing of levothyroxine 25 mcg with the pharmacist 02/25/24.. Most recent TSH 02/15 2.25 . 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 Uncontrolled type 2 diabetes mellitus with hyperglycemia, with long-term current use of insulin Hidradenitis suppurativa Pneumonia Type 2 diabetes mellitus with hyperglycemia Paroxysmal atrial flutter Dysphonia Chronic cough Urinary frequency Dyspnea on exertion Unstable gait Asthma Chronic low back pain without sciatica Osteoarthritis of both knees Kidney stones Depression AMARJIT (obstructive sleep apnea) Normocytic anemia ESRD needing dialysis CHF (congestive heart failure) Obesity due to excess calories CAD (coronary artery disease) GERD (gastroesophageal reflux disease) Thyroid disease AV fistula HLD (hyperlipidemia) ESRD (end stage renal disease) T2DM (type 2 diabetes mellitus) End stage renal disease on dialysis Dialysis patient Renal failure (ARF), acute on chronic HTN (hypertension) Surgical History History of cardiac cath History of kidney surgery Hx of cholecystectomy Hx of bone graft Family History Father CVD (cardiovascular disease) Diabetes Mother Diabetes Sister Stomach cancer Social History Household Members: Spouse Household Members Other:: , brother, uncles Housing: House Do you presently have visiting nurse or other home services: Yes Unable to assess alcohol history related to: Unknown Alcohol intake: never Patient Tobacco Use Status: Never used Tobacco Advance Directives Date on File: 02/15/21 service: No Current occupational status: disabled Current occupation: right hand dominant Physical Exam Vital Signs: Last Vital Signs Pulse 67 07/05/24 14:35 BP 122/76 07/05/24 14:35 BMI result Body Mass Index 38.7 Results AMB Hemoglobin A1c AMB Hemoglobin A1c 8.0 % Last Edit by JOY Camargo on 07/05/24 14:55 Results Reviewed Results Reviewed: Laboratory Last Values Glucose (Clinic) 361 mg/dL (60-115) H* 07/05/24 14:43 Assessment & Plan Assessment & Plan (1) 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 The patient expressed understanding and agreement with the above treatment plan. The patient is aware they should contact our office by phone for worsening glucose readings or for any low blood sugars which may warrant a change in diabetes medication. Compliance is encouraged with medications and any followup testing/consults which may have been ordered. Orders: Orders AMB Hemoglobin A1c Today E11.22 - Type 2 diabetes mellitus with diabetic chronic kidney disease, N18.6 - End stage renal disease Medications: New blood-glucose meter,continuous (FreeStyle Tika 3 [place]) for use with sensor 1 ea 0RF blood-glucose sensor (FreeStyle Tika 3 Plus Sensor device) As directed every 15 days 2 ea 11RF blood-glucose sensor (FreeStyle Tika 3 Plus Sensor device) As directed every 15 days 2 ea 11RF E11.22 - Type 2 diabetes mellitus with diabetic chronic kidney disease, N18.6 - End stage renal disease blood-glucose meter,continuous (FreeStyle Tika 3 [place]) for use with freestyle tika sensors 1 ea 0RF Changed From insulin glargine U-300 conc (Toujeo SoloStar U-300 Insulin) 16 units (0.0533 mL) subcut BEDTIME 4.5 mL 5RF To insulin glargine U-300 conc (Toujeo SoloStar U-300 Insulin) 18 units (0.06 mL) subcut BEDTIME 30 days 3 mL 5RF From insulin lispro 8 - 14 units (0.08 - 0.14 mL) subcut DIRECTED 15 mL 5RF To insulin lispro 10 - 16 units (0.1 - 0.16 mL) subcut DIRECTED 30 days 15 mL 5RF Discontinued blood-glucose sensor (FreeStyle Tika 3 Sensor device) Discontinued Reason: Doctor's Order As directed 2 ea 11RF blood-glucose meter,continuous (FreeStyle Tika 3 [place]) Discontinued Reason: Doctor's Order As directed 1 ea 0RF E11.22 - Type 2 diabetes mellitus with diabetic chronic kidney disease, N18.6 - End stage renal disease blood-glucose sensor (FreeStyle Itka 3 Sensor device) Discontinued Reason: Doctor's Order As directed 2 ea 11RF E11.22 - Type 2 diabetes mellitus with diabetic chronic kidney disease, N18.6 - End stage renal disease blood-glucose meter,continuous (FreeStyle Tika 3 [place]) Discontinued Reason: Doctor's Order As directed 1 ea 0RF E11.65 - Type 2 diabetes mellitus with hyperglycemia, Z79.4 - retirement (current) use of insulin Patient Instructions: Take 15 carb carbohydrate grams to treat a low sugar (3-4 glucose tablets, half a glass of juice or 15 carbohydrate grams of soft candy such as gummie snacks). Recheck your sugar in 15 minutes and re-treat again with 15 carbohydrate grams if low or still with symptoms. Do not drive a car or operate machinery if you do not know what your blood sugar is, if it is low or in excess of 300. The patient was counseled to achieve a target A1C of 7% (154 avg). Fasting blood sugars should be 90-130 in the morning and less than 180 two hours after meals. Reviewed the relationship between poor diabetic control and the development of complications. Check your feet daily looking for any signs of infection, drainage, redness, ulceration and seek medical attention if this occurs. Break in shoes gradually and do not wear open-toed shoes or walk stocking footed or barefooted. 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
[2024-07-05 14:35] VITALS: BP 122/76; PULSE 67; BMI 38.7
[2024-07-05 14:49] LABS: Glucose, Whole Blood 361 mg/dL (60-115)
== END 2024-07-05 15:00 | disposition home or self-care (01) ==
PROVIDERS: PCP Internal Medicine; Visit Provider Nurse Practitioner Adult Health
DX: E11.22 Type 2 diabetes mellitus with diabetic chronic kidney disease (principal); N18.6 End stage renal disease
CPT/HCPCS: 99214

== ENCOUNTER → 2024-07-05 14:28 | Outpatient (BNVA) | payer MEDICAID, SELFPAY | PROVIDERS: PCP Internal Medicine; Visit Provider Nurse Practitioner Adult Health | DX: E11.22 Type 2 diabetes mellitus with diabetic chronic kidney disease (principal); N18.6 End stage renal disease | CPT/HCPCS: 82947; 83036; 99212 ==

== ENCOUNTER 2024-07-18 11:02 | Outpatient (REF) | payer MEDICAID, SELFPAY ==
--- OUTSIDE RECORDS SUMMARY | 2024-07-18 12:41 | XMS_ITS | Data Portability ---
Author Organization [place] - [facility] Address [address] [place] [address] [id number] [place] [address] Assessment No assessment recorded. Plan of Treatment Reminders Order Date Submit Date Provider Last Modified By Organization Details Last Modified Time Details Appointments None recorded. Lab pap, IG + HPV 2016 017 [facility], [address] [place], [address] 7 07:56:44 Referral None recorded. Procedures None recorded. Surgeries None recorded. Imaging MAMMO, diagnostic, digital, unilateral 2016 017 [email or web address] Not available 7 08:23:09 Medication Orders None recorded. Patient TargetsNo targets recorded. Patient Instructions Encounter Date Encounter Id Patient Instructions Last Modified By Organization Details Last Modified Time 11/04/2016 [id number] Discussed new pap smear guidelines, pt agreeable [...] types from this sourc e. Not Available [facility] [address] [place], [place], 11/06/2016 07:56:44 11/05/19 17 11/06/2016 pap, [...] ThinP rep Imagi ng nila Alexis other [facility]. The Pap test is a scree key test with an inher ent false negat consuelo rate. [facility] , [address] [place], [place] CLIA [id number] CL-PO [id number] [facility] [address] [place], [place], 11/06/2016 07:56:44 Result Notes None recorded. Problems Name Problem SNOMED Code Status Onset Date Resolution Date Notes Provider Name and Address Organization Details Recorded Time Diabetes mellitus 87634230 Active 2016 Juliana arizmendi, [place] - [facility] 7 15:55:41 Chronic endometritis 71429383 Active 2016 Juliana arizmendi, [place] - [facility] 15:55:49 Problem Notes None recorded. Procedures Surgical History Date Name Laterality Status Provider Name and Address Organization Details Recorded Time 11/04/2016 [id number] completed PAVAN BERNABE, [address] [facility], [address] [facility], [place], [address], [facility] 11/04/2016 17:17:09 11/04/2016 [id number] completed PAVAN KIDD DO [address] [facility], [address] [facility], [place], [address], [facility] 11/04/2016 17:17:05 05/25/1996 Other completed Juliana Gonzales [facility] 11/04/2016 16:01:20 05/25/1996 Other completed Juliana Gonzales [facility] 11/04/2016 16:03:12 Imaging Results None recorded. Procedure [...] Updated DateTime 11/04/2016 160.02 cm 40.4 kg/m2 298013.0 6 g 132 mm[Hg] 60 mm[Hg] Juliana Gonzales [facility] 7 15:53:30 Social History Question Answer Notes LastModified by Organizat ion Details LastModified Time Tobacco Smoking Status Never Smoker Julianamaribel Gonzales null, [facility] 11/04/2016 15:58:24 What Is Your Level Of [...] SNOMED-CT Code Diagnosis ICD10 Code Diagnosis Note [id number] PAVAN KIDD DO SHO1 [address]OR[address],[facility] [address] [place] [address] 11/04/2016 15:42:27 11/04/2016 17:00:22 Gynecologic examination 55245640 Z01.411 51 yo annual exam Mass of left breast 1224 098162 3475203 N63 Health Concerns Section Related Observation LastModified by Organization Detai ls LastModified Time None Recorded Concern Status LastModified by Organization Details LastModified Time None Recorded Advance Directives Directive None Recorded Payers Encounter Date Sequence Insurance Name Policy Number Policy [place] Covered Member ID [place] Member ID Guarantor Name 11/04/2016 1 [place] Sarah Madden [id number] Sarah Madden Notes Date Note Type Note Provider Name and Address Organization Details Recorded Time 11/04/2016 text/html [facility] Annual GYNReported bypatient.Menstrua l cycle:Perimenopaus al(LMP 06/2015) Vagina:Normal vaginal discharge Breast:No nipple discharge;Breast Pain Bilateral;Breast lump(left inner breast-getting larger) Current Contraception:[place] gamous relationship Sexual complaints:No pain during intercourse Preventive measures:Encourage self breast examination; Encourage regular exerciseNotes:51 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 Pt is Maltese speaking only-wants to interpret, declined professional staining machine operator. last Commercial Or Institutional Cleaner exam was about 5 yrs ago in [place]. c/o B/L breast tenderness for past 5 yrs with more recent? ? ? increase in left breast balls. PAVAN KIDD DO [address], [place], [address], [place] - [facility] 11/04/2016 17:24:08 OBGyn Episode No OBEpisode recorded.
--- OUTSIDE RECORDS SUMMARY | 2024-07-18 12:41 | XMS_ITS | Encounter Summary ---
Author Organization [facility] Address [address] [place] [phone] Phone Care Team Providers Care Aeronautical Project Engineer Name Role Phone Ines Zamora MD Primary Care Provider Encounter Details Date Type Department Care Team (Late st Contact Info) Description 07/06/2024 Treatment [facility] [address] [address] Sweetie Pandey MD [facility] [address] Social History Tobacco Use Types [...] Dialysis Note - Sweetie Pandey MD - 07/06/2024 12:00 AM EST Patient: Sarah Corado : 1965 Note Type: Dialysis Rounds-Comp Service Date: 07/06/2024 This patient was personally seen for a complete visit as part of routine monthly dialysis care for end stage renal disease. Attending Civil Transportation Engineer: SWEETIE PANDEY MD Dialysis Location: [facility] Schedule: Shift: 2 ADEQUACY ASSESSMENT Kt/V, Natural Log 1.41 (06/29/24) 1.48 (06/01/24) 1.49 (05/04/24) UREA REDUCTION RATIO (%) 71 (06/29/24) 71 (06/01/24) 74 (05/04/24) BUN 55 (06/29/24) 66 (06/01/24) 110 (05/04/24) BUN Post Dialysis 16 (06/29/24) 19 (06/01/24) 29 (05/04/24) Creatinine 7.22 (06/29/24) 7.09 (06/01/24) 11.12 (05/04/24) Bicarbonate (CO2) 27 (06/29/24) 27 (06/01/24) 15 (05/04/24) Sodium 136 (06/29/24) 134 (06/01/24) 134 (05/04/24) ANEMIA ASSESSMENT Hgb 9.8 (06/29/24) 9.9 (06/24/24) 9.8 (06/22/24) Iron Saturation (TSat) 27 (06/29/24) 42 (06/01/24) 95 (05/04/24) Ferritin 1,647 (06/29/24) 1,036 (06/01/24) 1,593 (03/30/24) Iron 70 (06/29/24) 108 (06/01/24) 215 (05/04/24) TIBC 258 (06/29/24) 258 (06/01/24) 225 (05/04/24) MCV 97.7 (06/29/24) 98.6 (06/01/24) 98.4 (05/04/24) Platelets 176 (06/29/24) 179 (06/01/24) 188 (05/04/24) BMM ASSESSMENT Calcium, Adjusted Total 9.8 06/29/24 10.0 06/17/24 9.8 06/01/24 Calcium 9.8 06/29/24 10.0 06/17/24 9.8 06/01/24 Phosphorus, Serum 5.2 06/29/24 5.3 06/01/24 5.8 05/13/24 Ca*PO4 51.0 06/29/24 51.9 06/01/24 69.4 05/04/24 PTH, Intact 495 06/29/24 622 06/01/24 Vitamin D, 25-Hydroxy 48 06/01/24 Magnesium 2.2 06/29/24 2.2 06/01/24 2.6 05/04/24 Alkaline Phosphatase 98 06/29/24 118 06/01/24 112 05/04/24 Aluminum 4 06/01/24 NUTRITION ASSESSMENT Albumin 4.1 06/29/24 4.2 06/17/24 4.2 06/01/24 Potassium 4.7 06/29/24 5.2 06/01/24 4.6 05/13/24 Hemoglobin A1C 7.8 06/01/24 ADDITIONAL LABS White Blood Cells 7.7 (06/29/24) 6.6 (06/01/24) 10.2 (05/04/24) Cholesterol 83 (06/01/24) HDL 31 (06/01/24) LDL-Calc 28 (06/01/24) Triglycerides 119 (06/01/24) Hep B Surface Antibody 19 (06/01/24) 25 (05/04/24) Uric Acid 6.0 (06/01/24) ADDITIONAL COMMENT COMMENTS: 07/04/24 stable 07/06/24 no new issues 05/24/24 stable 05/27/24 doing ok 06/24/24 stBLE 01/27/24 stable 02/01/24 c/o eye pain after catract surg and has appt 02/0202/08/24 doing better 02/15/24 has appt w optho re L eye 02/29/24 cont eye pain, f/u with optho 03/16/24 eye pain resolved 03/28/24 stable 04/04/24. Has optho surg next week 04/11/24 stable 04/19/24 doing ok Signed by: SWEETIE PANDEY MD on 07/07/2024 at 06:15:12 AM documented in this encounter Plan of Treatment Not on file documented as of this encounter Visit Diagnoses Not on filedocumented in this encounter Care Teams Aeronautical Project Engineer Relationship Specialty Start Date End Date Ines Zamora MD [address] [place] [id number] PCP - General 06/04/20 documented as of this encounter
--- OUTSIDE RECORDS SUMMARY | 2024-07-18 12:41 | XMS_ITS | Encounter Summary ---
Author Organization [facility] Address [address] [place] [phone] Phone Care Team Providers Care Senior Process Engineer Name Role Phone Ines Zamora MD Primary Care Provider [phone] Encounter Details Date Type Department Care Team (Late st Contact Info) Description 06/22/2024 Treatment [facility] [address] [phone] Sweetie Pandey MD [facility] [phone] Social History Tobacco Use Types [...] care for end stage renal disease. Attending Harvest Field Ticketer: SWEETIE PANDEY Dialysis Location: [facility] Schedule: Shift: 2 ADEQUACY [...] on filedocumented in this encounter Care Teams Senior Process Engineer Relationship Specialty Start Date End Date Ines Zamora MD [address] [place] [phone] PCP - General 06/04/20 documented as of this encounter
--- OUTSIDE RECORDS SUMMARY | 2024-07-18 12:41 | XMS_ITS | Encounter Summary ---
Author Organization [facility] Address [address] [place] [phone] Phone Care Team Providers Care Laundry Route Driver Name Role Phone Ines Zamora MD Primary Care Provider [phone] Encounter Details Date Type Department Care Team (Late st Contact Info) Description 06/17/2024 Treatment [facility] [address] [phone] Sweetie Pandey MD [facility] [address] Social History Tobacco Use Types [...] care for end stage renal disease. Attending Collet Maker: SWEETIE PANDEY Dialysis Location: [facility] Schedule: Shift: 2 ADEQUACY ASSESSMENT Kt/V, [...] on filedocumented in this encounter Care Teams Laundry Route Driver Relationship Specialty Start Date End Date Ines Zamora MD [address] [place] [address] PCP - General 06/04/20 documented as of this encounter
--- OUTSIDE RECORDS SUMMARY | 2024-07-18 12:41 | XMS_ITS | Encounter Summary ---
Author Organization [facility] Address [address] [phone] Phone Care Team Providers Care Oven Equipment Repairer Name Role Phone Ines Zamora MD Primary Care Provider [phone] Encounter Details Date Type Department Care Team (Late st Contact Info) Description 07/13/2024 Orders Only [facility]. [address] [phone] Jeffy Tineo MD [address] [address] Social History Tobacco Use Types [...] on file documented as of this encounter Plan of Treatment Not on file documented as of this encounter Procedures Procedure Name Priority Date/Time Associated Diagnosis Comments HEMOGLOBIN AND HEMATOCRIT, BLOOD Routine 07/13/2024 3:00 AM EST documented in this encounter Results * (ABNORMAL) Hemoglobin and hematocrit (07/13/2024 3:00 AM EST) Hgb 9.6(L) 11.2 - 15.7 g/dL [facility] Hematocrit 29.8(L) 34.1 - 44.9 % [facility] Hemoglobin x 3 28.8(L) 33.6 - 47.1 g/dL [facility] 07/13/2024 3:00 AM EST 07/15/2024 12:51 PM EST us Jeffy Tineo MD LAB BLOOD ORDERABLES Final Re sult [facility] [address] [place] [address] documented in this encounter Visit Diagnoses Not on filedocumented in this encounter Care Teams Oven Equipment Repairer Relationship Specialty Start Date End Date Ines Zamora MD [address] [place] [address] PCP - General 06/04/20 documented as of this encounter
--- OUTSIDE RECORDS SUMMARY | 2024-07-18 12:41 | XMS_ITS | Encounter Summary ---
Author Organization [employer] Address [address] [facility] [address] [place] [address] Care Team Providers Care Substance Abuse Specialist Name Role Phone Faith Mason MD Primary Care Provide r Encounter Details Date Type Department Care Team ([facility] st Contact Info) Description 03/08/2024 Orders Only [facility] [address] [place], [place] [phone] Faith Mason MD [address] [place] [address] Social History Tobacco Use Types Packs/Day Years [...] 07/29/2024 2:15 PM EST Office Visit [facility] [address] [place] [phone] Kay Mackay MD [address] [place] [phone] 08/23/2024 2:00 PM EDT Office Visit [facility] [address] [place] [phone] Faith Mason MD [address] [place] [phone] 09/20/2024 3:00 PM EDT Office Visit [facility] ADULT DENTAL [address] [place] [address] [phone] Karen Shannon [address] [place] [address] documented as of this encounter Visit Diagnoses Not on filedocumented in this encounter Additional Health Concerns Assessment Noted Time PHQ-9 Depression Total Score: 6 11/24/19 24 2:35 PM EDT documented as of this encounter Care Teams Substance Abuse Specialist Relationship Specialty Start Date End Date Faith Mason MD [address] [place] [address] PCP - General Family Medicine 04/12/19 Linda Peralta Travel AdministratorBlade Balancer 06/08/24 documented as of this encounter
--- OUTSIDE RECORDS SUMMARY | 2024-07-18 12:41 | XMS_ITS | Encounter Summary ---
Author Organization [facility] Address [address] [place] [phone] Phone Care Team Providers Care Special Investigation Unit Investigator Name Role Phone Ines Zamora MD Primary Care Provider [phone] Encounter Details Date Type Department Care Team (Late st Contact Info) Description 07/04/2024 Treatment [facility] [address] [address] Sweetie Pandey MD [facility] [address] [address] Social History Tobacco Use Types [...] Dialysis Note - Sweetie Pandey MD - 07/04/2024 12:00 AM EST Patient: Sarah Corado : 1965 Note Type: Dialysis Rounds-Basic Service Date: 07/04/2024 This patient was personally seen for a basic visit as part of routine monthly dialysis care for end stage renal disease. Attending Drywall Sander: SWEETIE PANDEY MD Dialysis Location: [facility] Schedule: Shift: 2 ADEQUACY ASSESSMENT Kt/V, [...] by: SWEETIE PANDEY MD on 07/07/2024 at 06:15:36 AM documented in this encounter Plan of Treatment Not on file documented as of this encounter Visit Diagnoses Not on filedocumented in this encounter Care Teams Special Investigation Unit Investigator Relationship Specialty Start Date End Date Ines Zamora MD [address] [place] [phone] PCP - General 06/04/20 documented as of this encounter
--- OUTSIDE RECORDS SUMMARY | 2024-07-18 12:41 | XMS_ITS | Encounter Summary ---
Author Organization [employer] Address [address] [place] [address] 7t [place] [address] Care Team Providers Care Fare Register Repairer Name Role Phone Faith Mason MD Primary Care Provide r Reason for Visit * Reason Comments Med Refill Encounter Details Date Type Department Care Team (Late st Contact Info) Description 07/18/2024 Refill [facility] [address] [place], [place] [phone] Faith Mason MD [address] [place], [place] [phone] Other constipation Social History Tobacco Use Types Packs/Day Years [...] 07/29/2024 2:15 PM EST Office Visit [facility] [address] [place] [phone] Kay Mackay MD [address] [place] [phone] 08/23/2024 2:00 PM EDT Office Visit [facility] [address] [place] [phone] Faith Mason MD [address] [place] [address] 09/20/2024 3:00 PM EDT Office Visit [facility] [address] [place] [phone] Karen Shannon [address] [place] [address] documented as of this encounter Visit Diagnoses Diagnosis Other constipation documented in this encounter Additional Health Concerns Assessment Noted Time PHQ-9 Depression Total Score: 6 11/24/19 24 2:35 PM EDT documented as of this encounter Care Teams Fare Register Repairer Relationship Specialty Start Date End Date Faith Mason MD [address] [place] [address] PCP - General Family Medicine 04/12/19 Linda Peralta Credit And Collections AnalystLeaf Fat Scraper 06/08/24 documented as of this encounter
--- OUTSIDE RECORDS SUMMARY | 2024-07-18 12:41 | XMS_ITS | Encounter Summary ---
Author Organization [facility] Address [address] [place] [phone] Phone Care Team Providers Care Stacker Name Role Phone Ines Zamora MD Primary Care Provider Encounter Details Date Type Department Care Team (Late st Contact Info) Description 06/24/2024 Treatment [facility] [address] [phone] Sweetie Pandey MD [facility] [address] [phone] Social History Tobacco Use Types [...] care for end stage renal disease. Attending Copy Chief: SWEETIE PANDEY Dialysis Location: [facility] [...] on filedocumented in this encounter Care Teams Stacker Relationship Specialty Start Date End Date Ines Zamora MD [address] [place] [phone] PCP - General 06/04/20 documented as of this encounter
--- OUTSIDE RECORDS SUMMARY | 2024-07-18 12:42 | XMS_ITS | Encounter Summary ---
Author Organization [employer] Address [address] [place] [address] 7t [place] [address] Care Team Providers Care Supervisor Litharge Name Role Phone Faith Mason MD Primary Care Provide r Encounter Details Date Type Department Care Team (Late st Contact Info) Description 07/05/2024 Orders Only GENERIC EXTERNAL DATA DEPARTMENT Provider, Generic External Data Social History Tobacco Use Types Packs/Day Years [...] EST Office Visit [facility] [address] [place] [address] Kay Mackay MD [address] [place] [address] 08/23/2024 2:00 PM EDT Office Visit [facility] [address] [place] [address] Faith Mason MD [address] [place] [address] 09/20/2024 3:00 PM EDT Office Visit [facility] [address] [place] [address] Karen Shannon [address] [place] [address] documented as of this encounter Procedures Procedure Name Priority Date/Time Associated Diagnosis Comments GLUCOSE, WHOLE BLOOD Routine 07/05/2024 2:43 PM EST documented in this encounter Results * (ABNORMAL) Glucose, Whole Blood (07/05/2024 2:43 PM EST) Glucose, Whole Blood 361(HH) 60 - 115 mg/dL [facility] Comment:METER #: [id number] Testing performed in the Endocrinology Department [address] , [address], [place]. 07/05/2024 2:43 PM EST 07/05/2024 2:49 PM EST us Generic External Data Provider LAB BLOOD ORDERAB LES Final Result Performing Organization Address City/State/[facility] Co de Phone Number [facility] [address] [place] [address] [phone] documented in this encounter Visit Diagnoses Not on filedocumented in this encounter Additional Health Concerns Assessment Noted Time PHQ-9 Depression Total Score: 6 11/24/19 24 2:35 PM EDT documented as of this encounter Care Teams Supervisor Litharge Relationship Specialty Start Date End Date Faith Mason MD [address] [place] [address] PCP - General Family Medicine 04/12/19 Linda Peralta Resource Room TeacherSeismograph Shooter 06/08/24 documented as of this encounter
--- OUTSIDE RECORDS SUMMARY | 2024-07-18 12:42 | XMS_ITS | Encounter Summary ---
Author Organization [employer] Address [address] [place] [address] 7t [place] [address] Care Team Providers Care Forming Roll Operator Heavy Duty Name Role Phone Faith Mason MD Primary Care Provide r Reason for Visit * Reason Comments Med Change Request Encounter Details Date Type Department Care Team (Late Contact Info) Description 11/28/2022 Refill [facility] [address] [place], [place] [phone] Faith Mason MD [address] [place] [address] Type 2 diabetes mellitus with hyperglycemia, with long-term current use of insulin ([facility]) Social History Tobacco Use Types Packs/Day Years [...] Description 07/29/2024 2:15 PM EST Office Visit [facility] [address] [place] [address] Kay Mackay MD [address] [place] [address] 08/23/2024 2:00 PM EDT Office Visit [facility] [address] [place] [address] Faith Mason MD [address] [place], [place] [phone] 09/20/2024 3:00 PM EDT Office Visit [facility] [address] [place], [place] [phone] Jacob Shannonaris [address] [place], [place] [phone] documented as of this encounter Visit Diagnoses Diagnosis Type 2 diabetes mellitus with hyperglycemia, with long-term current use of insulin ([facility]) documented in this encounter Additional Health Concerns Assessment Noted Time PHQ-9 Depression Total Score: 14 023 2:21 PM EDT documented as of this encounter Care Teams Forming Roll Operator Heavy Duty Relationship Specialty Start Date End Date Faith Mason MD [address] [place] [address] [phone] PCP - General Family Medicine 04/12/19 Linda Peralta Table Games Dual Rate SupervisorTankroom Tender 06/08/24 documented as of this encounter
--- OUTSIDE RECORDS SUMMARY | 2024-07-18 12:42 | XMS_ITS | Encounter Summary ---
Author Organization [employer] Address [address] [facility] [address] [place] [address] Care Team Providers Care Wire Welder Name Role Phone Faith Mason MD Primary Care Provide r Reason for Visit * Reason Onset Date Comments FYI 08/13/2023 Encounter Details Date Type Department Care Team ([facility] st Contact Info) Description 08/13/2023 Telephone [facility] [address] [place], [place] [phone] Faith Mason MD [address] [place] [address] FYI Social History Tobacco Use Types Packs/Day [...] of today. Any questions contact Tameka at [phone] documented in this encounter Plan of Treatment Upcoming Encounters Date Type Department Care Team (Late st Contact Info) Description 07/29/2024 2:15 PM EST Office Visit [facility] [address] [place] [phone] Kay Mackay MD [address] [place] [phone] 08/23/2024 2:00 PM EDT Office Visit [facility] [address] [place] [phone] Faith Mason MD [address] [place] [phone] 09/20/2024 3:00 PM EDT Office Visit [facility] [address] [place] [phone] Karen Shannon [address] [place] [address] documented as of this encounter Visit Diagnoses Not on filedocumented in this encounter Additional Health Concerns Assessment Noted Time PHQ-9 Depression Total Score: 14 10/07/ 023 2:21 PM EDT documented as of this encounter Care Teams Wire Welder Relationship Specialty Start Date End Date Faith Mason MD [address] [place] [address] PCP - General Family Medicine 04/12/19 Linda Peralta Associate Professor Of PathologyVeneer Supervisor 06/08/24 documented as of this encounter
--- OUTSIDE RECORDS SUMMARY | 2024-07-18 12:42 | XMS_ITS | Clinical Summary ---
Author Organization [employer] Address [address] [place] [address] [address] [place] [address] Care Team Providers Care Six Sigma Project Manager Name Role Phone Faith Mason MD Primary Care Provide r Allergies No known active allergies Medications * This document contains information received from the source organization and may not represent a complete record from that organization. FREESTYLE LITE test strip TEST BLOOD SUGAR FOUR TIMES DAILY DIRECTED 03/24/20 22 Active Novofine Pen Needle 32G X 6 MM misc USE FOUR TIMES DAILY DIRECTED 03/24/20 22 Active nitroglycerin (Nitrostat) 0.[address] 1 tablet by sublingual route at the first sign of an attack; no more than 3 tabs are recommended within a 15 minute period. 10/07/19 19 Active sevelamer carbonate (Renvela) 800 MG tablet TAKE 1 TABLET BY MOUTH THREE TIMES DAILY IN THE MORNING, AT NOON, AND IN THE EVENING WITH FOOD (PARA FOSFATO ALTO) 03/24/20 22 Active Blood Pressure Monitoring (Blood Pressure Cuff) misc Use to take Blood Pressure daily Active nystatin (Mycostatin) creamIndications:V ulvar abscess Apply twice daily as needed between skin folds for fungal infection 30 g 1 05/20/20 22 Active HumaLOG KWIKPEN 100 UNIT/ML injection INJECT 8-14 UNITS SUBCUTANEOUSLY THREE TIMES DAILY BEFORE MEALS PER SLIDING SCALE (BS 80-100: 8 units; 101-200: 10 units; 201-300: 12 units; >301 14 units) 15 mL 11 08/11/19 24 Active polycarbophil (FiberCon) 625 MG tabletIndications: Constipation, unspecified constipation type Take 1 tablet (625 mg) by mouth in the morning. 30 tablet 11 08/11/19 24 025 Active Blood Glucose Monitoring Suppl (FreeStyle [place] Lite) w/Device kitIndications:Typ e 2 diabetes mellitus with hyperglycemia, with long-term current use of insulin ([facility]) Use to test blood sugar 3 times daily 1 kit 08/24/19 24 Active TRUEplus Lancets 33G miscIndications:Ty pe 2 diabetes mellitus with hyperglycemia, with long-term current use of insulin ([facility]) TEST BLOOD SUGAR THREE TIMES DAILY 100 each 11 09/21/19 24 Active levothyroxine (Synthroid, Levoxyl) 25 MCG tablet TAKE 1 TABLET BY MOUTH EVERY MORNING 90 tablet 3 10/15/19 24 Active omeprazole (PriLOSEC) [address] capsuleIndications :Gastroesophageal reflux disease, unspecified whether esophagitis present Take 1 capsule (20 mg) by mouth before breakfast. Do not crush or chew. 30 capsule 11 11/24/19 24 025 Active Alcohol Swabs (Alcohol Prep) 70 % padsIndications:Ty pe 2 diabetes mellitus with hyperglycemia, with long-term current use of insulin ([facility]) USE DIRECTED THREE TIMES DAILY 100 each 12/14/19 24 Active insulin glargine (Toujeo Max SoloStar) 300 UNIT/ML injectionIndicatio ns:Type 2 diabetes mellitus with hyperglycemia, with long-term current use of insulin ([facility]) INJECT 28 UNITS SUBCUTANEOUSLY EVERY DAY 6 mL 1 01/08/20 24 Active D3 Super Strength 50 MCG (1999 UT) capsule TAKE 1 CAPSULE BY MOUTH EVERY MORNING 90 capsule 02/09/20 24 Active atorvastatin (Lipitor) 40 MG tablet TAKE 1 TABLET BY MOUTH EVERYDAY AT NOON 90 tablet 1 02/09/20 24 Active sodium chloride (Zumbrota) 0.65 % nasal spray Administer 1 spray into each nostril if needed for congestion. 30 mL 02/10/20 24 025 Active melatonin 5 MG tabletIndications: Primary insomnia TAKE 1 TABLET BY MOUTH AT BEDTIME for SLEEP 90 tablet 1 03/08/20 24 Active amLODIPine (Norvasc) 10 MG tabletIndications: Essential hypertension Take 1 tablet (10 mg) by mouth Once per day. 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 236 mL 05/11/20 24 Active brimonidine (AlphaGAN) 0.2 % ophthalmic solution Administer 1 drop into the left eye 3 times daily. 04/12/20 24 Active Continuous Glucose Licensed Home Inspector (FreeStyle Tika 3 [place]) device Use as directed 12/24/19 24 Active Continuous Glucose Sensor (FreeStyle Tika 3 Sensor) mis USE DIRECTED TO TEST BLOOD SUGAR CHANGE EVERY 14 DAYS 03/08/20 24 Active ketorolac (Acular) 0.5 % ophthalmic solution INSTILL 1 DROP AFFECTED EYE(S) THREE TIMES DAILY STARTING 2 DAYS BEFORE SURGERY 03/15/20 24 Active levocetirizine (Xyzal) 5 MG tablet Take 1 tablet by mouth at bedtime. 12/31/19 24 Active loratadine (Claritin) 10 MG tablet Take 1 tablet by mouth in the morning. 12/31/19 24 Active prednisoLONE acetate (Pred-Forte) 1 % ophthalmic suspension Administer 1 drop into the left eye 3 times daily. 09/09/19 24 Active docusate sodium (Colace) 100 MG capsuleIndications :Other constipation Take 1 capsule (100 mg) by mouth 2 times daily. 60 capsule 1 05/26/19 25 025 Active gabapentin (Neurontin) 100 MG capsuleIndications :Diabetic polyneuropathy associated with type 2 diabetes mellitus (CMS/HCC) TAKE 1 CAPSULE BY MOUTH TWICE DAILY IN THE MORNING AND IN THE EVENING 60 capsule 05/31/19 25 Active Acetaminophen Extra Strength 500 MG tabletIndications: Polyarthralgia TAKE 2 TABLETS BY MOUTH EVERY 8 HOURS NEEDED FOR MILD PAIN 30 tablet 2 05/31/19 25 Active hydrALAZINE (Apresoline) 50 MG tablet Take 1 tablet (50 mg) by mouth 3 times daily. 270 tablet 1 06/17/19 25 Active metoprolol tartrate (Lopressor) 25 MG tablet Take 0.5 tablets (12.5 mg) by mouth 2 times daily. 30 tablet 3 06/17/19 25 Active apixaban (Eliquis) 5 MG tabletIndications: Atrial flutter, unspecified type (CMS/HCC) TAKE 1 TABLET BY MOUTH TWICE DAILY IN THE MORNING AND IN THE EVENING 60 tablet 06/17/19 25 Active Active Problems Patient Care Coordination No te [...] (05/21/2022 9:19 AM EST): -Currently followed by [facility] - last available consult note Jan 2022 w/ Dr. Miller -Continues with current med regimen: -Januvia 25mg PO daily -Tuojeo insulin 28 units subcutaneous daily -Lispro AC per SS -Dexcom ordered and managed through [facility] Endo -Strongly encourage pt to schedule follow [...] remission 09/02/2018 Coronary artery disease invo lving paimiut coronary artery of paimiut heart with unstable angina pectoris 06/03/2018 Calculus of kidney 06/03/2018 Atypical chest pain 06/03/2018 Chronic endometritis 11/04/2016 Resolved Problems Problem Noted Date Diagnosed Date Resolved Date Type 2 diabetes mellitus without complication 09/03/19 19 05/21/2022 Encounters Date Type Department Care Team Description 07/18/2024 Refill [facility] [address] [place] [address] Faith Mason MD Other constipation 07/05/2024 Orders Only GENERIC EXTERNAL DATA DEPARTMENT Provider, Generic External Data 06/17/2024 Refill [facility] [address] [place] [address] Faith Mason MD 06/17/2024 Refill [facility] [address] [place] [address] Faith Mason MD Atrial flutter, unspecified type (CMS/HCC) 06/16/2024 Telephone [facility] [address] [place] [address] Faith Mason MD 06/08/2024 Telephone [facility] [address] [place] [phone] Faith Mason MD Care Coordination (ICP Care Plan) 06/07/2024 10:00 AM EST Office Visit [facility] ADULT DENTAL [address] [place] [address] Karen Shannon 06/03/2024 Orders Only [facility] [address] [place] [address] Faith Mason MD Post-menopausal bleeding (Primary Dx) 05/31/2024 Refill [facility] [address] [place] [address] Faith Mason MD Atrial flutter, unspecified type (CMS/HCC); Diabetic polyneuropathy associated with type 2 diabetes mellitus (CMS/HCC); Polyarthralgia 05/26/2024 9:30 AM EST Office Visit [facility] [address] [place] [address] Faith Mason MD Other constipation (Primary Dx); Essential hypertension; Type 2 diabetes mellitus with hyperglycemia, with long-term current use of insulin (CMS/HCC); Metabolic encephalopathy; Chronic nonintractable headache, unspecified headache type 05/26/2024 Travel 05/19/2024 Telephone [facility] [address] [place] [address] Bernice Fitzpatrick, RN Results 05/19/2024 Orders Only [address] [address] Faith Mason MD Thyroid nodule (Primary Dx) 05/11/2024 3:15 PM EST Office Visit [facility] [address] [place] [address] Faith Mason MD Acute maxillary sinusitis, recurrence not specified (Primary Dx); Type 2 diabetes mellitus with hyperglycemia, with long-term current use of insulin (CMS/HCC); Acute cough 05/11/2024 Travel 05/10/[address] [address] Faith Mason MD Hospital Follow-up 05/03/2024 Refill [facility] [address] [place] [address] Faith Mason MD Atrial flutter, unspecified type (CMS/HCC); Diabetic polyneuropathy associated with type 2 diabetes mellitus (CMS/HCC); Coronary artery disease involving paimiut coronary artery of paimiut heart with unstable angina pectoris (CMS/HCC) 05/02/2024 Patient Outreach [facility] [address] [place], [place] [phone] Faith Mason MD Transition Of Care (Tcm) (HDF unscheduled, SDOH unable to reach LVM) 04/26/2024 Patient Outreach [facility] [address] [place] [address] Faith Mason MD Error (VOID this visit) 04/25/2024 Orders Only GENERIC EXTERNAL DATA DEPARTMENT Provider, Generic External Data from Last 3 Months Immunizations Name Administration [...] 07/29/2024 2:15 PM EST Office Visit [facility] [address] [place] [phone] Kay Mackay MD [address] [place] [phone] 08/23/2024 2:00 PM EDT Office Visit [facility] [address] [place] [phone] Faith Mason MD [address] [place] [phone] 09/20/2024 3:00 PM EDT Office Visit [facility] ADULT DENTAL [address] [place] [address] Jacob Shannonaris [address] [place] [address] Health Maintenance Due Date Last Done Comments [...] Protein Screening 07/23/2021 07/23/2020, 07/23/2020 COVID-19 Vaccine ( - season) 2024 05/13/2023, 05/07/2021, 07/05/2020 Dental X-Ray: [...] WHOLE BLOOD Routine 07/05/2024 2:43 PM EST NO CHARGE VISIT Routine 06/07/2024 10:00 AM EST POCT GLUCOSE Routine 05/11/2024 3:36 PM EST Type 2 diabetes mellitus with hyperglycemia, with long-term current use of insulin ([facility]) CTA CHEST PE PROTOCAL Routine 04/28/2024 12:32 [...] Relevant to Health Maintenance Results * (ABNORMAL) Glucose, Whole Blood (07/05/2024 2:43 PM EST) Glucose, Whole Blood 361(HH) 60 - 115 mg/dL [facility] Comment:METER #: [id number] Testing performed in the Endocrinology Department [address] , [address], [place]. 07/05/2024 2:43 PM EST 07/05/2024 2:49 PM EST us Generic External Data Provider LAB BLOOD ORDERAB LES Final Result [facility] [address] [facility] [place] [address] [phone] * (ABNORMAL) POCT Glucose (05/11/2024 3:36 PM EST) Glucose Blood, POC 279(A) 60 - 200 mg/dL QC Media Lot # [id number] Lot# Expiration Date ,025 Blood Capillary blood specimen / Unknown 05/11/2024 3:36 PM EST us Faith No MD POINT OF CARE TEST EN TER/EDIT ORDERABLES Final Result * CTA Chest PE Protocal (04/28/2024 12:32 AM EST) Anatomical Region Laterality Modality Body, Chest Computed Tomogra phy 04/28/2024 12:3 2 AM EST Narrative 04/28/2024 9:15 AM EST ? [facility] ?[address] ?[place] [address] ? CT Scan Report ? Signed ? Patient: Madden Colon,Sarah ?MR#: [id number] ?? [id number] ? : 1965 ?Acct:[id number] ? Age/Sex: 59 / F ?ADM Date: 04/25/24 ? Loc: HO.IMC ?474-1 ? Attending Dr: Delvis Gomez MD ? Ordering Physician: Delvis Gomez MD ?? Date of Service: 04/28/24 ?? Procedure(s): CT angio chest PE protocol ?? Accession Number(s): [id number] ? cc: Delvis Gomez MD; Faith Mason [...] by Mariano Lockett MD in OV> ? 04/28/24911 ? DD/ ? TD/TT: 04/28/24 0054 ? Lagging Machine Operator: ? Procedure Note Donotuseinterpreter, Image - 04/28/[address] [address] [address] Scan Report Signed Patient: Vidal Dixon#: [id number] : 1965Acct:[id number] Age/Sex: 59 / FADM Date: 04/25/24 Loc: [facility] 474-[address]: Delvis Gomez MD Ordering Physician: Delvis Gomez MD Date of Service: 04/28/24 Procedure(s): CT angio chest PE protocol Accession Number(s): [id number] cc: Delvis Gomez MD; Faith Mason MD [...] Mariano Lockett MDin OV> 04/28/24 0912 DD/ TD/TT: 04/28/24 0054 Lagging Machine Operator: [facility] External Provider IMG CT PROCEDURES Edited Result - Final * XR Chest 1 View (04/25/2024 3:20 PM EST) Anatomical Region Laterality Modality Chest Radiographic Samira ging 04/25/2024 3:20 PM EST Narrative 04/25/2024 4:45 PM EST ? [facility] ?[address] ?[place] [address] ?XRay Report ? Signed ? Patient: Madden Colon,Sarah ?MR#: [id number] ?? [id number] ? : 1965 ?Acct:[id number] ? Age/Sex: 59 / F ?ADM Date: 04/25/24 ? Loc: HO.ED ? Attending Dr: ? Ordering Physician: Tarun Johnson MD ?? Date of Service: 04/25/24 ?? Procedure(s): XR chest 1V ?? Accession Number(s): [id number] ? cc: Faith Mason MD; Tarun Johnson [...] ??Gloria Robbins MD ??04/25/2024 04:42 PM EST ?? RP ? Dictated By: ?Gloira Robbins MD ? Signed By: ?<Electronically signed by Gloria Robbins MD in OV> ? 04/25/24 1642 ? DD/ 1520 ? TD/TT: 04/25/24 1530 ? Lagging Machine Operator: PN ? Procedure Note Donotuseinterpreter, Image - 04/25/[address] [address] XRay Report Signed Patient: Vidal Dixon#: [id number] : 1965Acct:[id number] Age/Sex: 59 / FADM Date: 04/25/24 Loc: HO.ED Attending Dr: Ordering Physician: Tarun Johnson MD Date of Service: 04/25/24 Procedure(s): XR chest 1V Accession Number(s): [id number] cc: Faith Mason MD; Tarun Johnson MD [...] 04/25/24 1642 DD/ 1520 TD/TT: 04/25/24 1530 Lagging Machine Operator: KRISTINA [facility] External Provider IMG XR PROCEDURES Final Result * (ABNORMAL) SARS-CoV-2 RNA, Influenza A/B, and RSV RNA, Ql NAAT (04/25/2024 1:00 PM EST) Influenza A PCR NEGATIVE Negative [facility] Influenza B PCR NEGATIVE Negative [facility] Resp Syncy Virus RNA Qual PCR NEGATIVE Negative [facility] SARS COV2 PCR POSITIVE(A) Negative [facility] Comment:All test results mus [...] use by authorized laboratories.Testing performed on the Section 101 GeneXpert utilizingreal-time RT-PCR.All SARS CoV2 and positive influenza A/B results arereported to [facility]. 04/25/2024 1:00 PM EST 04/25/2024 1:02 PM EST Generic External Data Provider LAB MICROBIOLOGY - GENERAL ORDERABLES Final Result Performing Organization Address City/State/[facility] Co de Phone Number [facility] [address] [place] [phone] * CT Pelvis w/o Contrast (04/25/2024 11:56 AM EST) Anatomical Region Laterality Modality Body, Pelvis Computed Tomogra phy 04/25/2024 11:5 6 AM EST Narrative 04/25/2024 2:49 PM EST ? [facility] [place] [facility] ?[address] ?[place] [address] ? CT Scan Report ? Signed ? Patient: Madden Colon,Sarah ?MR#: [id number] ?? [id number] ? : 1965 ?Acct:[id number] ? Age/Sex: 59 / F ?ADM Date: 04/25/24 ? Loc: HO.ED ? Attending Dr: ? Ordering Physician: Tarun Johnson MD ?? Date of Service: 04/25/24 ?? Procedure(s): CT pelvis wo IV con ?? Accession Number(s): [id number] ? cc: Faith Mason MD; Tarun Johnson [...] Delgado MD ??04/25/2024 02:44 PM ?? EST RP ? Dictated By: ?Mariano Stinson MD ? Signed By: ?<Electronically signed by Mariano Lockett MD in OV> ? 04/25/24 1444 ? DD/ 1156 ? TD/TT: 04/25/24 1156 ? Lagging Machine Operator: ? Procedure Note Donotuseinterpreter, Image - 04/25/[address] [address] [address] Scan Report Signed Patient: Vidal Dixon#: [id number] : 1965Acct:[id number] Age/Sex: 59 / FADM Date: 04/25/24 Loc: HO.ED Attending Dr: Ordering Physician: Tarun Johnson MD Date of Service: 04/25/24 Procedure(s): CT pelvis wo IV con Accession Number(s): [id number] cc: Faith Mason MD; Tarun Johnson MD [...] Mariano Delgado MD 04/25/2024 02:44 PM EST RP Dictated By: Mariano Stinson MD Signed By: <Electronically signed by Mariano Lockett MDin OV> 04/25/24 1444 DD/ 1156 TD/TT: 04/25/24 1156 Lagging Machine Operator: [facility] External Provider IMG CT PROCEDURES Final Result * CT Head w/o Contrast (04/25/2024 11:56 AM EST) Anatomical Region Laterality Modality Head, Neck Computed Tomogra phy 04/25/2024 11:5 6 AM EST Narrative 04/25/2024 2:03 PM EST ? [facility] ?[address] ?[place] [address] ? CT Scan Report ? Signed ? Patient: Chano Colon,Sarah ?MR#: [id number] ?? [id number] ? : 1965 ?Acct:[id number] ? Age/Sex: 59 / F ?ADM Date: 04/25/24 ? Loc: HO.ED ? Attending Dr: ? Ordering Physician: Tarun Johnson MD ?? Date of Service: 04/25/24 ?? Procedure(s): CT head/brain wo IV con ?? Accession Number(s): [id number] ? cc: Faith Mason MD; Tarun Johnson [...] DD/ 1156 ? TD/TT: 04/25/24 1156 ? Lagging Machine Operator: JL ? Procedure Note Doncleoter, Image - 04/25/[address] [address] [address] Scan Report Signed Patient: Sarah Dixon#: [id number] : 1965Acct:[id number] Age/Sex: 59 / FADM Date: 04/25/24 Loc: HO.ED Attending Dr: Ordering Physician: Tarun Johnson MD Date of Service: 04/25/24 Procedure(s): CT head/brain wo IV con Accession Number(s): [id number] cc: Faith Mason MD; Tarun Johnson MD [...] 04/25/24 1400 DD/ 1156 TD/TT: 04/25/24 1156 Lagging Machine Operator: ALEX [facility] External Provider IMG CT PROCEDURES Final Result * CT Cervical Spine w/o Contrast (04/25/2024 11:04 AM EST) Anatomical Region Laterality Modality Spine, C-spine Computed Tomogra phy 04/25/2024 11:0 4 AM EST Narrative 04/25/2024 2:03 PM EST ? [facility] ?[address] ?[place] [address] ? CT Scan Report ? Signed ? Patient: Madden Colon,Sarah ?MR#: [id number] ?? [id number] ? : 1965 ?Acct:[id number] ? Age/Sex: 59 / F ?ADM Date: 04/25/24 ? Loc: HO.ED ? Attending Dr: ? Ordering Physician: Tarun Johnson MD ?? Date of Service: 04/25/24 ?? Procedure(s): CT cervical spine wo IV con ?? Accession Number(s): [id number] ? cc: Faith Mason MD; Tarun Johnson [...] DD/ 1104 ? TD/TT: 04/25/24 1156 ? Lagging Machine Operator: JL ? Procedure Note Greg Condon - 04/25/2024 [address] [place] [address] CT Scan Report Signed Patient: Sarah Dixon#: [id number] : 1965Acct:[id number] Age/Sex: 59 / FADM Date: 04/25/24 Loc: HO.ED Attending Dr: Ordering Physician: Tarun Johnson MD Date of Service: 04/25/24 Procedure(s): CT cervical spine wo IV con Accession Number(s): [id number] cc: Faith Mason MD; Tarun Johnson MD [...] by: Tomi Lerma DO 04/25/2024 02:00 PM [facility] Dictated By: Tomás Lerma DO Signed By: <Electronically signed by Tomás Lerma DO in OV> 04/25/24 1400 DD/ 1104 TD/TT: 04/25/24 1156 Lagging Machine Operator: ALEX [facility] External Provider IMG CT PROCEDURES Final Result * (ABNORMAL) POCT HGB A1C (03/17/2024 3:42 PM EDT) Hemoglobin A1C 7.8(A) 4.0 - 6.0 % QC Media Lot # [id number] Lot# Expiration Date [id number] Blood 03/17/2024 3:42 PM EDT Faith No MD POINT OF CARE TEST EN TER/EDIT ORDERABLES Final Result * Hepatitis Panel, General (01/26/2024 2:16 PM EDT) Hepatitis A IgM REACTIVE (Abnormal) Nonreactive [facility] Comment:For additional infor page, please refer tohttp://education.[employer]/faq/KKY343(This link is being provided for informational/educational purposes only.)THIS TEST PERFORMED AT:[facility] [place] [phone] DIRECTOR: EVITA ALICEA MD ~Hepatitis B Surface Antibody REACTIVE (Abnormal) Nonreactive [facility] Comment:THIS TEST PERFORMED AT:[employer] [address] [phone] DIRECTOR: EVITA ALICEA MD Hepatitis B Core Antibody NON-REACTI VE Nonreactive [facility] Comment:For additional infor mation, please refer tohttp://Clzby.[employer]/faq/YIO777(This link is being provided for informational/educational purposes only.)THIS TEST PERFORMED AT:[employer] [address] [phone] DIRECTOR: EVITA ALICEA MD Hepatitis C Antibody NON-REACTI VE Nonreactive [facility] Comment:HCV antibody was non -reactive. There is no laboratoryevidence of HCV infection.In most cases, no further action is required. However,if recent HCV exposure is suspected, a test for HCV RNA(test code 71119) is suggested.For additional information please refer tohttp://Clzby.[employer]/faq/MSW72o4(This link is being provided for informational/educational purposes only.)THIS TEST PERFORMED AT:[employer] [address] [phone] DIRECTOR: EVITA ALICEA MD Hepatitis B Surface Ag NON-REACTI VE Negative [facility] Comment:For additional infor mation, please refer tohttp://Clzby.[employer]/faq/VXE889(This link is being provided for informational/educational purposes only.)THIS TEST PERFORMED AT:[employer] [address] [phone] DIRECTOR: EVITA ALICEA MD Blood 01/26/2024 2:16 PM EDT 01/26/2024 4:08 PM EDT us Faith No MD LAB BLOOD ORDERABLES Final Result Performing Organization Address City/[facility]/ZIP Co de Phone Number [facility] [address] [place] [phone] * HIV-1/2 Antigen and Antibodies, Fourth Generation, with Reflexes (01/26/2024 2:16 PM EDT) HIV AB/AG NON-REAC TIVE Nonreactive [facility] Comment:HIV-1 antigen and HI V-1/HIV-2 antibodies [...] for this purpose.For additional information please refer tohttp://education.[employer]/faq/PCG977(This link is being provided for informational/educational purposes only.)The performance of this assay has not been clinicallyvalidated in patients less than 2 years old.THIS TEST PERFORMED AT:[facility] [address] [phone] DIRECTOR: EVITA ALICEA MD Blood Venous blood specimen / Unknown 01/26/2024 2:16 PM EDT 01/26/2024 4:08 PM EDT us Faith No MD LAB BLOOD ORDERABLES Final Result Performing Organization Address [facility]/ZIP Co de Phone Number [facility] [address] [place] [phone] * (ABNORMAL) Lipid Panel with Reflex to Direct LDL (12/01/2023 1:06 PM EDT) Pathologist [facility] Triglycerides 81 <150 mg/dL [facility] Comment:Desirable Triglyceri de: less than 150 mg/dLBorderline High Triglyceride 150-199 mg/dLHigh Triglyceride: 200-499 mg/dLVery High Triglyceride: greater than or equal to 5OO mg/dL Cholesterol 77 <200 mg/dL [facility] Comment:Desirable Cholestero l: less than 200 mg/dLBorderline High Cholesterol: 200-239 mg/dLHigh Cholesterol: greater than 239 mg/dL LDL Cholesterol Calculated 30 <100 mg/dL [facility] Comment:Desirable LDL: less than 100 mg/dLNear Optimal/Above Optimal LDL: 110- 129 mg/dLBorderline High LDL: 130-159 mg/dLHigh LDL: 160-189 mg/dLVery High LDL: greater than or equal to 190 mg/dL HDL Cholesterol 31(L) >40 mg/dL [facility] Comment:Desirable HDL: great er than 40 mg/dL Note: This HDL assay may give artificially low results in patients with liver disease. Blood 12/01/2023 1:06 PM EDT 12/01/2023 1:11 PM EDT Faith No MD LAB BLOOD ORDERABLES Final Result [facility] [address] [place] [phone] * HPV mRNA E6/E7 w/Reflex to HPV Genotypes 16, 18/45 (10/13/2023 10:05 AM EDT) HPV nRNA E6/E7 Not Detected Not Detected [facility] Comment:Methodology: Transcr iption-Mediated AmplificationThis assay detects E6/E7 viral messenger RNA (mRNA) from 14high-risk HPV types (16,18,31,33,35,39,45,51,52,56,58,59,66,68).Cervical sources are required for HPV testing.If a vaginal source from a patient who has had atotal hysterectomy with removal of cervix wassubmitted, please contact the testing laboratoryfor alternative testing options.For additional information, please refer tohttp://education.[employer]/faq/LFO299n5(This link if provided for information/educational purposes only.)THIS TEST WAS PERFORMED AT:[facility] [place] [phone] ALICEA MD HPV mRNA E6/E7 TNP [facility] HPV 16 RNA TNP [facility] HPV 18/45 RNA TNP [facility] 10/13/2023 10:0 5 AM EDT 10/14/2023 11:40 AM EDT us Ofelia Haskins CNM LAB CYTOLOGY ORDERABLES F inal Result [facility] [address] [place] [phone] * Pap Smear (10/13/2023 10:05 AM EDT) Swab Cervix uteri structure / Unknown 10/13/2023 10:05 AM EDT 10/14/2023 11:40 AM EDT Narrative [facility] - 11/02/2023 10:48 AM EDT ----- ------- Name: Sarah Dixon ? Age/Sex: 58/F ? : 1965 Unit#: [id number] ?? Attend Dr: OFELIA HASKINS CNM ?Re10/13/23 ?Status: DEP REF ? Location: HO.HHCLNP ? Disch: ? ----- ------- SPEC : [id number] ? RECD: 10/14/23 ? STATUS: ??SOUT ? REQ NUM: [id number] ? NADJA: 10/13/235 ? SUBM DR: OFELIA HASKINS CNM ? ENTERED: ??10/14/235384 ?SP TYPE: Pap Smr ?OTHR DR: ? ORDERED: ??Pap Smear ? Interpretation ?? Satisfactory for evaluation. ?? No endocervical cells seen. ?? Negative for intraepithelial lesion or malignancy. ? HPV mRNA E6/E7: ?NOT DETECTED ? This assay detects E6/E7 viral messenger RNA (mRNA) from 14 high-risk HPV types (16, 18, ?? 31, 33, 35, 39, 45, 51, 52, 56, 58, 59, 66, 68) ? HPV testing performed by [facility], [place], [place]. ??See reference laboratory ?? portion of the EMR for entire report. ?Clinical Information LMP:Post menopausal Previous PAP test:Unk ? Material Received ?? ThinPrep-Cervical ----- ------- Signed (signature on file) Debo Schroeder Robbie 11/02/23 1048 ? ----- ------- ? END OF REPORT ? us Ofelia Haskins [facility] CYTOLOGY ORDERABLES F inal Result [facility] [address] [place] [phone] * Cologuard?? colon cancer screening (09/17/2023 12:00 PM EDT) Cologuard Result Negative Negative 09/25/19 10:09 AM EDT [facility] (CLIA #:[id number]) Comment: NEGATIVE TEST RESULT. A negative Cologuard [...] screened with both Cologuard and colonoscopy. (Kacey Jalloh al, N Engl J Med 2014;370(14):1286- 1297) The normal value (reference range) for this assay is negative. COLOGUARD RE-SCREENING RECOMMENDATION: Periodic colorectal cancer screening is an important part of preventive healthcare for asymptomatic individuals at average risk for colorectal cancer. ??Following a negative Cologuard result, the [place] Cancer Society and U.S. Multi-Society Task Force screening guidelines recommend a Cologuard re-screening interval of 3 years. References: [place] [employer] Guideline for Colorectal Cancer Screening: https://www.cancer.org/cancer/zyqhs-okmrpc-kbrbeu/hzfqbhfts-gmqyfnnmm-ncekpst/ac s-rec ommendations.html.; Maxi DK, Robinson CR, Barry TateK, Colorectal Cancer Screening: Recommendations for Physicians and Patients from the U.S. Multi-Society Task Force on Colorectal Cancer Screening , Am J Gastroenterology 2017; 112:5664-2142. TEST DESCRIPTION: Composite algorithmic analysis of stool [...] screened with both Cologuard and colonoscopy. (Kacey Jalloh al, N Engl J Med 2014;370(14):6551-0301.) Cologuard may produce a false negative or false positive result (no colorectal cancer or precancerous polyp present at colonoscopy follow up). A negative Cologuard test result does not guarantee the absence of CRC or advanced adenoma (pre-cancer). The current Cologuard screening interval is every 3 years. ([place] [employer] Society and U.S. Multi-Society Task Force). Cologuard performance data in a 10,000 patient pivotal study using colonoscopy as the reference method can be accessed at the following location: www.[employer]/results. Additional description of the Cologuard test process, warnings and precautions can be found at www.[employer]urd.[employer]. Stool specimen (specimen) 09/17/2023 12:00 PM EDT 09/18/2023 10:51 AM EDT Faith No MD LAB MOLECULAR DIAGNOS TICS ORDERABLES Final Result [facility] (CLIA #:[id number]) [place] [address], * BI Mammogram Screening Tomosynthesis Bilateral (07/16/2023 11:25 AM EST) Anatomical Region Laterality Modality Breast Bilateral Mammography 07/16/2023 11:2 5 AM EST Narrative 08/08/2023 10:45 PM EDT ? [facility] ? [address] ?[place] [address] ? Mammography Report ? Signed ? Patient: Madden Colon,Sarah ?MR#: [id number] ?? [id number] ? : 1965 ?Acct:[id number] ? Age/Sex: 58 / F ?ADM Date: /22/24 ? Loc: HO.MAMMO ? Attending Dr: Faith No MD ? Ordering Physician: Faith Mason MD ?Results: ?? 1Negative ? Date of Service: 07/16/23 ?Follow Up: 1 Year From Orig ?? inal Mammogram ? Procedure(s): MM tomosynthesis screening BI ?? Accession Number(s): [id number] ? cc: Faith Mason MD ? EXAMINATION: [...] by Marry Oquendo MD in OV> ? 08/08/232 ? DD/ 1125 ? TD/TT: ? Lagging Machine Operator: ? Procedure Note Donotuseinterpreter, Image - 08/08/2023 [facility] [address] [place], [place] [address] Mammography Report Signed Patient: Vidal Dixon#: [id number] : 1965Acct:[id number] Age/Sex: 58 / FADM Date: 07/16/23 Loc: HOJanethMAMMO Attending Dr: Faith No MD Ordering Physician: Faith Mason MDResults: 1Negative Date of Service: 07/16/23Follow Up: 1 Year From Orig inal Mammogram Procedure(s): MM tomosynthesis screening BI Accession Number(s): [id number] cc: Faith Mason MD EXAMINATION: MM SCREENING [...] in OV> 08/08/23 2242 DD/ 1125 TD/TT: Lagging Machine Operator: us Faith No MD IMG BI PROCEDURES Fin al Result * MICROALBUMIN, RANDOM (07/23/2020 9:00 AM EST) Creatinine Urine 140.39 mg/dL [facility] Microalbum/Creati nine Ratio Ur 419.5 ug/mg cr [facility] Comment: ?Albumin/Creatinine Ratio Reference Ranges: ? Normal: < 30 ug/mg creatinine ? Microalbuminuria: ??30 - 300 ug/mg creatinine Clinical Albuminuria: ??> 300 ug/mg creatinine Microalbumin Urine 589.0 mg/L [facility] 07/23/2020 9:00 AM EST Historical Provider HISTORICAL/NON ORDERABLE LABS Final Result [facility] [address] from Last 3 Months or Most Recently Relevant to Health Maintenance Insurance [facility] C[facility] [place] AD[place] Care Teams Six Sigma Project Manager Relationship Specialty Start Date End Date Faith Mason MD [address] [place] [phone] PCP - General Family Medicine 04/12/19 Linda Peralta Patient Portal RepresentativeResidential Solar Sales Consultant 06/08/24
--- OUTSIDE RECORDS SUMMARY | 2024-07-18 12:42 | XMS_ITS | Encounter Summary ---
Author Organization [employer] Address [address] [facility] [address] [place] [address] Care Team Providers Care Windscreen Fitter Name Role Phone Faith Mason MD Primary Care Provide r Reason for Visit * Reason Comments Med Refill Encounter Details Date Type Department Care Team (Late st Contact Info) Description 04/05/2024 Refill [facility] [address] [place], [place] [phone] Faith Mason MD [address] [place] [address] Atrial flutter, unspecified type (CMS/HCC); Diabetic polyneuropathy [...] Description 07/29/2024 2:15 PM EST Office Visit [facility] [address] [place] [phone] Kay Mackay MD [address] [place] [phone] 08/23/2024 2:00 PM EDT Office Visit [facility] [address] [place] [address] [phone] Faith Mason MD [address] [place] [address] [phone] 09/20/2024 3:00 PM EDT Office Visit [facility] [address] [place] [address] [phone] Karen Shannon [address] [place] [address] documented as of this encounter Visit Diagnoses Diagnosis Atrial flutter, unspecified type (CMS/HCC) Diabetic polyneuropathy associated with type 2 diabetes mellitus (CMS/HCC) documented in this encounter Additional Health Concerns Assessment Noted Time PHQ-9 Depression Total Score: 6 11/24/19 24 2:35 PM EDT documented as of this encounter Care Teams Windscreen Fitter Relationship Specialty Start Date End Date Faith Mason MD [address] [place] [phone] PCP - General Family Medicine 04/12/19 Linda Peralta Help Desk AssociateRazor Grinder 06/08/24 documented as of this encounter
--- OUTSIDE RECORDS SUMMARY | 2024-07-18 12:42 | XMS_ITS | Clinical Summary ---
Author Organization [facility] Address [address] [address] Phone Care Team Providers Care Drywall Worker Name Role Phone Ines Zamora MD Primary Care Provider [phone] Medications lisinopril 10 MG tabletIndicatio ns:Stage 3 [...] Encounters Date Type Department Care Team Description 07/13/2024 Orders Only [facility] [address] [address] Jeffy Tineo MD 07/06/2024 Treatment [facility] [address] [address] Jeffy Tineo MD 07/04/2024 Treatment [facility] [address] [address] Jeffy Tineo MD 06/24/2024 Treatment [facility] [address] [address] Jeffy Tineo MD 06/22/2024 Treatment [facility] [address] [address] Jeffy Tineo MD 06/17/2024 Treatment [facility] [address] [address] Jeffy Tineo MD 05/27/2024 Treatment [facility] [address] [address] Jeffy Tineo MD 05/24/2024 Treatment [facility] [address] [address] Jeffy Tineo MD 05/09/2024 Treatment [facility] [address] [address] Jeffy Tineo MD 04/19/2024 Treatment [facility] [address] [address] Jeffy Tineo MD from Last 3 Months [...] HEMATOCRIT, BLOOD Routine 07/13/2024 3:00 AM EST HEMOGLOBIN AND HEMATOCRIT, BLOOD Routine 07/06/2024 3:00 AM EST TRANSFERRIN SATURATION Routine 3:00 AM EST MAGNESIUM Routine 06/29/2024 3:00 AM EST ELECTROLYTE PANEL Routine 06/29/2024 3:0 0 AM EST PROTEIN, TOTAL, SERUM Routine 06/29/2024 3:00 AM EST LIH (HC) Routine 06/29/2024 3:00 AM EST LACTATE DEHYDROGENASE Routine 06/29/2024 3:00 AM EST GLUCOSE, RANDOM Routine 06/29/2024 3:00 AM EST CREATININE, SERUM Routine 06/29/2024 3:0 0 AM EST BILIRUBIN, TOTAL Routine 06/29/2024 3:00 AM EST ALT Routine 06/29/2024 3:00 AM EST AST Routine 06/29/2024 3:00 AM EST CALCIUM PHOSPHORUS PRODUCT, ADJUSTED (HC) Routine 06/29/2024 3:00 AM EST ALKALINE PHOSPHATASE Routine 06/29/2024 3:00 AM EST PTH, INTACT Routine 06/29/2024 3:00 AM EST FERRITIN Routine 06/29/2024 3:00 AM EST KT/V NATURAL LOG, URR (HC) Routine 06/29/2024 3:00 AM EST CBC AND DIFFERENTIAL Routine 06/29/2024 3:00 AM EST HEMOGLOBIN Routine 06/24/2024 3:00 AM EST COLLECTION [...] HEMATOCRIT, BLOOD Routine 04/17/2024 3:00 AM EST from Last 3 Months Results * (ABNORMAL) Hemoglobin and hematocrit (07/13/2024 3:00 AM EST) Only the most recent of8 resultswithin the time period is included. Hgb 9.6(L) 11.2 - 15.7 g/dL [facility] Hematocrit 29.8(L) 34.1 - 44.9 % [facility] Hemoglobin x 3 28.8(L) 33.6 - 47.1 g/dL [facility] 07/13/2024 3:00 AM EST 07/15/2024 12:51 PM EST us Jeffy Tineo MD LAB BLOOD ORDERABLES Final Re sult Performing Organization Address [facility] Co de Phone Number [facility]PS [facility] [address] [place] [address] * LIH (06/29/2024 3:00 AM EST) Only the most recent of5 resultswithin the time period is included. Lipemia Normal Normal [facility] Icterus Normal Normal [facility] Hemolysis Normal Normal [facility] 06/29/2024 3:00 AM EST 06/30/2024 12:39 PM EST Jeffy Tineo MD LAB [id number] SOLICITED RESULTS Final Result Performing Organization Address [facility] de Phone Number [facility] [address] [place] [address] * (ABNORMAL) Kt/V Natural Log, URR (06/29/2024 3:00 AM EST) Only the most recent of3 resultswithin the time period is included. Pathologist [facility] Treatment Time 200 min [facility] Pre-Weight, lb 99.0 kg [facility] Post-Weight, lb 96.4 kg [facility] Ultrafiltration Rate 8 <=13 mL/kg/hr [facility] Comment: Recommend achieving Ultrafiltration Rate (UFR) <=10 mL/kg/hr References: Charley TODD et al. Kidney Int. 2010; 79(2):250-257 BUN 55(H) 7 - 25 mg/dL [facility] BUN Post Dialysis 16 7 - 25 mg/dL [facility] UREA REDUCTION RATIO (%) 71 >=65 % [facility] Kt/V Natural Log 1.41 >=1.2 [facility] 06/29/2024 3:00 AM EST 06/30/2024 12:39 PM EST Jeffy Tineo MD LAB [id number] SOLICITED RESULTS Final Result Performing Organization Address [facility] de Phone Number [facility] [address] [place] [address] * (ABNORMAL) Calcium Phosphorus Product, Adjusted (06/29/2024 3:00 AM EST) Only the most recent of3 resultswithin the time period is included. Albumin 4.1 3.6 - 5.4 g/dL [facility] Calcium 9.8 8.6 - 10.3 mg/dL [facility] Phosphorus, Serum 5.2(H) 2.5 - 5.0 mg/dL [facility] Ca*PO4 51.0 <55.0 mg2/dL2 [facility] Calcium, Adjusted Total 9.8 8.6 - 10.3 mg/dL [facility] CA*PO4 CORRCTD 51.0 <55.0 mg2/dL2 [facility] 06/29/2024 3:00 AM EST 06/30/2024 12:39 PM EST Jeffy Tineo MD LAB [id number] SOLICITED RESULTS Final Result Performing Organization Address [facility] de Phone Number [facility] [address] [place] [address] * (ABNORMAL) TSAT (06/29/2024 3:00 AM EST) Only the most recent of3 resultswithin the time period is included. Pathologist [facility] Iron 70 50 - 170 ug/dL [facility] Transferrin 184(L) 250 - 380 mg/dL [facility] TIBC 258 211 - 406 ug/dL [facility] Iron Saturation (TSat) 27 22 - 52 % [facility] 06/29/2024 3:00 AM EST 06/30/2024 12:39 PM EST Jeffy Tineo MD LAB BLOOD ORDERABLES Final Re sult Performing Organization Address [facility] de Phone Number [facility] [address] [place] [address] * (ABNORMAL) CBC and Differential (06/29/2024 3:00 AM EST) Only the most recent of3 resultswithin the time period is included. Pathologist [facility] DIFFERENTIAL MANUAL, 2 Not Indicated [facility] White Blood Cells 7.7 4.0 - 10.0 K/uL [facility] RBC 3.05(L) 3.93 - 5.22 M/uL [facility] Hgb 9.8(L) 11.2 - 15.7 g/dL [facility] Hemoglobin x 3 29.4(L) 33.6 - 47.1 g/dL [facility] Hematocrit 29.8(L) 34.1 - 44.9 % [facility] MCV 97.7(H) 79.4 - 94.8 fL [facility] MCH 32.1 25.6 - 32.2 pg [facility] MCHC 32.9 32.2 - 35.5 g/dL [facility] Platelets 176(L) 182 - 369 K/uL [facility] RDW 14.3 11.7 - 14.4 % [facility] Neutrophils Relative 73.1(H) 34.0 - 71.1 % [facility] Lymphocytes Relative 14.5(L) 19.3 - 51.7 % [facility] Monocytes 5.5 4.7 - 12.5 % [facility] Eosinophils Relative 5.3 0.7 - 5.8 % [facility] Basophils Relative 1.2 0.1 - 1.2 % [facility] Immature Granulocytes 0.4 0.0 - 1.0 % [facility] 06/29/2024 3:00 AM EST 06/30/2024 12:28 PM EST Jeffy Tineo MD LAB BLOOD ORDERABLES Final Re sult Performing Organization Address [facility] Co de Phone Number [facility] [address] [place] [address] * ALT (06/29/2024 3:00 AM EST) Only the most recent of3 resultswithin the time period is included. [facility] ALT (SGPT) 13 10 - 49 U/L [facility] 06/29/2024 3:00 AM EST 06/30/2024 12:39 PM EST Jeffy Tineo MD LAB BLOOD ORDERABLES Final Re sult Performing Organization Address [facility] Co de Phone Number [facility] [address] [place] [address] * AST (06/29/2024 3:00 AM EST) Only the most recent of3 resultswithin the time period is included. AST (SGOT) 14 <34 U/L [facility] 06/29/2024 3:00 AM EST 06/30/2024 12:39 PM EST Jeffy Tineo MD LAB BLOOD ORDERABLES Final Re sult Performing Organization Address [facility] de Phone Number [facility] [address] [place] [address] * Protein, total (06/29/2024 3:00 AM EST) Only the most recent of3 resultswithin the time period is included. Total Protein 7.3 6.4 - 8.9 g/dL [facility] 06/29/2024 3:00 AM EST 06/30/2024 12:39 PM EST Jeffy Tineo MD LAB BLOOD ORDERABLES Final Re sult Performing Organization Address [facility] de Phone Number [facility] [address] [place] [address] * Alkaline phosphatase (06/29/2024 3:00 AM EST) Only the most recent of3 resultswithin the time period is included. Alkaline Phosphatase 98 46 - 116 U/L [facility] 06/29/2024 3:00 AM EST 06/30/2024 12:39 PM EST Jeffy Tineo MD LAB BLOOD ORDERABLES Final Re sult Performing Organization Address [facility] de Phone Number [facility] [address] [place] [address] * PTH, Intact (06/29/2024 3:00 AM EST) Only the most recent of2 resultswithin the time period is included. PTH, Intact 495 160 - 721 pg/mL [facility] Comment: Suggested (KDIGO) ESRD maintenance range is two to nine times the upper normal limit (80.1 pg/mL) for the laboratory. 06/29/2024 3:00 AM EST 06/30/2024 12:39 PM EST us Jeffy Tineo MD LAB BLOOD ORDERABLES Final Re sult Performing Organization Address [facility] de Phone Number [facility] [address] [place] [address] * Magnesium (06/29/2024 3:00 AM EST) Only the most recent of3 resultswithin the time period is included. Magnesium 2.2 1.9 - 2.7 mg/dL [facility] 06/29/2024 3:00 AM EST 06/30/2024 12:39 PM EST Jeffy Tineo MD LAB BLOOD ORDERABLES Final Re sult Performing Organization Address [facility] Phone Number [facility] [address] [place] [address] * (ABNORMAL) Lactate dehydrogenase (06/29/2024 3:00 AM EST) Only the most recent of3 resultswithin the time period is included. LDH 300(H) 120 - 246 U/L [facility] 06/29/2024 3:00 AM EST 06/30/2024 12:39 PM EST us Jeffy Tineo MD LAB BLOOD ORDERABLES Final Re sult Performing Organization Address [facility] de Phone Number [facility] [address] [place] [address] * (ABNORMAL) Glucose, random (06/29/2024 3:00 AM EST) Only the most recent of3 resultswithin the time period is included. Glucose 278(H) 74 - 109 mg/dL [facility] 06/29/2024 3:00 AM EST 06/30/2024 12:39 PM EST us Jeffy Tineo MD LAB BLOOD ORDERABLES Final Re sult Performing Organization Address [facility] Co de Phone Number [facility] [address] [place] [address] * (ABNORMAL) Ferritin (06/29/2024 3:00 AM EST) Only the most recent of2 resultswithin the time period is included. Ferritin 1,647(H) 10 - 291 ng/mL [facility] 06/29/2024 3:00 AM EST 06/30/2024 12:39 PM EST Jeffy Tineo MD LAB BLOOD ORDERABLES Final Re sult Performing Organization Address [facility] de Phone Number [facility] [address] [place] [address] * (ABNORMAL) Creatinine, serum (06/29/2024 3:00 AM EST) Only the most recent of3 resultswithin the time period is included. Creatinine 7.22(H) 0.55 - 1.02 mg/dL [facility] 06/29/2024 3:00 AM EST 06/30/2024 12:39 PM EST Jeffy Tineo MD LAB BLOOD ORDERABLES Final Re sult Performing Organization Address [facility] de Phone Number [facility] [address] [place] [address] * Bilirubin, total (06/29/2024 3:00 AM EST) Only the most recent of3 resultswithin the time period is included. Total Bilirubin 0.4 0.3 - 1.2 mg/dL [facility] 06/29/2024 3:00 AM EST 06/30/2024 12:39 PM EST Jeffy Tineo MD LAB BLOOD ORDERABLES Final Re sult Performing Organization Address [facility] Co de Phone Number [facility] [address] [place] [address] * (ABNORMAL) Electrolyte panel (06/29/2024 3:00 AM EST) Only the most recent of4 resultswithin the time period is included. Sodium 136 136 - 145 mEq/L [facility] Potassium 4.7 3.4 - 5.0 mEq/L [facility] Chloride 96(L) 98 - 107 mEq/L [facility] Bicarbonate (CO2) 27 21 - 31 mEq/L [facility] Anion Gap 13 3 - 14 mEq/L [facility] 06/29/2024 3:00 AM EST 06/30/2024 12:39 PM EST Jeffy Tineo MD LAB BLOOD ORDERABLES Final Re sult Performing Organization Address [facility] de Phone Number [facility] [address] [place] [address] * Collection Date (06/24/2024 3:00 AM EST) Collection Date See Comment [facility] Comment: Patient sample received may exceed specimen stability, based on the collection date electronically provided. ??When reviewing patient results, verify collection information and consider specimen stability before acting on any critical or panic results. 06/24/2024 3:00 AM EST Jeffy Tineo MD LAB [id number] SOLICITED RESULTS Final Result Performing Organization Address [facility] de Phone Number [facility] [address] [place] [address] * (ABNORMAL) Hemoglobin (06/24/2024 3:00 AM EST) Hgb 9.9(L) 11.2 - 15.7 g/dL [facility] Hemoglobin x 3 29.7(L) 33.6 - 47.1 g/dL [facility] 06/24/2024 3:00 AM EST 06/27/2024 1:01 PM EST us Jeffy Tineo MD LAB BLOOD ORDERABLES Final Re sult Performing Organization Address [facility] de Phone Number [facility] [address] [place] [address] * Calcium, Adjusted w Albumin (06/17/2024 3:00 AM EST) Calcium 10.0 8.6 - 10.3 mg/dL [facility] Albumin 4.2 3.6 - 5.4 g/dL [facility] Calcium, Adjusted Total 10.0 8.6 - 10.3 mg/dL [facility] 06/17/2024 3:00 AM EST 06/18/2024 2:10 PM EST us Jeffy Tineo MD LAB BLOOD ORDERABLES Final Re sult Performing Organization Address [facility]/ZIP Co de Phone Number [facility] [address] [place] [address] * Confirmation Test HCV (06/01/2024 3:00 AM EST) Pathologist [facility] Hep C Ab Confirmation Not needed [facility] 06/01/2024 3:00 AM EST 06/02/2024 1:33 PM EST Jeffy Tineo MD LAB BLOOD ORDERABLES Final Re sult Performing Organization Address [facility]/ZIP Co de Phone Number [facility] [address] [place] [address] * HEPATITIS C ABS W/REFLEX RNA DETECTR (06/01/2024 3:00 AM EST) Pathologist [facility] Hep C Virus Ab Non-Reacti ve Non-Reacti ve [facility] 06/01/2024 3:00 AM EST 06/02/2024 2:21 PM EST us Jeffy Tineo MD LAB [id number] SOLICITED RESULTS Final Result Performing Organization Address [facility] de Phone Number [facility] [address] [place] [address] * Aluminum level (06/01/2024 3:00 AM EST) Pathologist [facility] Aluminum 4 1 - 20 ug/L [facility] 06/01/2024 3:00 AM EST 06/02/2024 2:46 PM EST Jeffy Tineo MD LAB BLOOD ORDERABLES Final Re sult Performing Organization Address [facility] de Phone Number [facility] [address] [place] [address] * Vitamin D 25 Hydroxy (06/01/2024 3:00 AM EST) Vitamin D, 25-Hydroxy 48 30 - 100 ng/mL [facility] Comment: Status ? Adult ?? Pediatric Deficient: ? <20 ? <15 Insufficient: ??20-29 ?? 15-19 Sufficient: ?30-100 ??20-100 06/01/2024 3:00 AM EST 06/02/2024 2:21 PM EST Jeffy Tineo MD LAB BLOOD ORDERABLES Final Re sult Performing Organization Address [facility] de Phone Number [facility] [address] [place] [address] * Hepatitis B Surface Antibody (06/01/2024 3:00 AM EST) Only the most recent of2 resultswithin the time period is included. Hep B Surface Antibody 19 mIU/mL [facility] Comment: Interpretation: <10: No Immunity >=10: Probable Immunity 06/01/2024 3:00 AM EST 06/02/2024 2:21 PM EST Jeffy Tineo MD LAB BLOOD ORDERABLES Final Re sult Performing Organization Address [facility] de Phone Number [facility] [address] [place] [address] * Uric Acid (06/01/2024 3:00 AM EST) Uric Acid 6.0 2.3 - 6.6 mg/dL [facility] 06/01/2024 3:00 AM EST 06/02/2024 2:21 PM EST Jeffy Tineo MD LAB BLOOD ORDERABLES Final Re sult Performing Organization Address [facility] de Phone Number [facility] [address] [place] [address] * (ABNORMAL) Hemoglobin A1c (06/01/2024 3:00 AM [...] ORDERABLES Final Re sult Performing Organization Address [facility] de Phone Number [facility] [address] [place] [address] * (ABNORMAL) Lipid panel (06/01/2024 3:00 AM [...] ORDERABLES Final Re sult Performing Organization Address [facility] de Phone Number [facility] [address] [place] [address] * Potassium (05/13/2024 3:00 AM EST) Potassium 4.6 3.4 - 5.0 mEq/L [facility] 05/13/2024 3:00 AM EST 05/14/2024 2:41 PM EST Jeffy Tineo MD LAB BLOOD ORDERABLES Final Re sult Performing Organization Address [facility] de Phone Number [facility] [address] [place] [address] * (ABNORMAL) Phosphorus (05/13/2024 3:00 AM EST) Phosphorus, Serum 5.8(H) 2.5 - 5.0 mg/dL [facility] 05/13/2024 3:00 AM EST 05/14/2024 2:41 PM EST Jeffy Tineo MD LAB BLOOD ORDERABLES Final Re sult [facility] [address] [place] [address] from Last 3 Months [place] Care Teams Drywall Worker Relationship Specialty Start Date End Date Ines Zamora MD [address] [place] [phone] PCP - General 06/04/20
--- OUTSIDE RECORDS SUMMARY | 2024-07-18 12:42 | XMS_ITS | Encounter Summary ---
Author Organization [employer] Address [address] [facility] 7t [place] [address] Care Team Providers Care Cut Plug Packer Name Role Phone Faith Mason MD Primary Care Provide r Reason for Visit * Reason Comments Med Refill Encounter Details Date Type Department Care Team (Late st Contact Info) Description 04/04/2024 Refill [facility] [address] [place], [place] [phone] Faith Mason MD [address] [place] [address] Essential hypertension Social History Tobacco Use Types [...] Description 07/29/2024 2:15 PM EST Office Visit [facility] [address] [place] [phone] Kay Mackay MD [address] [place] [phone] 08/23/2024 2:00 PM EDT Office Visit [facility] [address] [place] [phone] Faith Mason MD [address] [place], [place] [phone] 09/20/2024 3:00 PM EDT Office Visit [facility] ADULT DENTAL [address] [place] [address] Karen Shannon [address] [place] [address] documented as of this encounter Visit Diagnoses Diagnosis Essential hypertension Unspecified essential hypertension documented in this encounter Additional Health Concerns Assessment Noted Time PHQ-9 Depression Total Score: 6 11/24/19 24 2:35 PM EDT documented as of this encounter Care Teams Cut Plug Packer Relationship Specialty Start Date End Date Faith Mason MD [address] [place] [address] PCP - General Family Medicine 04/12/19 Linda Peralta Press Machine OperatorIt Communications Specialist 06/08/24 documented as of this encounter
--- OUTSIDE RECORDS SUMMARY | 2024-07-18 12:42 | XMS_ITS | Encounter Summary ---
Author Organization [employer] Address [address] [facility] 7t [place] [address] Care Team Providers Care Station Baggage Porter Name Role Phone Faith Mason MD Primary Care Provide r Encounter Details Date Type Department Care Team ([facility] st Contact Info) Description 07/17/2023 Telephone [facility] MED[facility]INE [address] [place], [place] [phone] Faith Mason MD [address] [place] [address] Social History Tobacco Use Types Packs/Day Years [...] 07/29/2024 2:15 PM EST Office Visit [facility] MED[facility]INE [address] [place] [phone] Kay Mackay MD [address] [place] [address] 08/23/2024 2:00 PM EDT Office Visit [facility] MED[facility] [address] [place] [address] Faith Mason MD [address] [place] [address] 09/20/2024 3:00 PM EDT Office Visit [facility] ADULT DENTAL [address] [place] [address] Karen Shannon [address] [place] [address] documented as of this encounter Visit Diagnoses Not on filedocumented in this encounter Additional Health Concerns Assessment Noted Time PHQ-9 Depression Total Score: 14 023 2:21 PM EDT documented as of this encounter Care Teams Station Baggage Porter Relationship Specialty Start Date End Date Faith Mason MD [address] [place] [phone] PCP - General Family Medicine 04/12/19 Linda Peralta Stave Block SplitterCloth Finishing Range Operator 06/08/24 documented as of this encounter
--- OUTSIDE RECORDS SUMMARY | 2024-07-18 12:42 | XMS_ITS | Encounter Summary ---
Author Organization [employer] Address [address] [facility] 7t [place] [address] Care Team Providers Care Search And Rescue Officer Name Role Phone Faith Mason MD Primary Care Provide r Reason for Visit * Reason Comments Med Refill Encounter Details Date Type Department Care Team (Late st Contact Info) Description 08/11/2023 Refill [facility] [address] [place], [place] [phone] Faith Mason MD [address] [place], [place] [phone] Social History Tobacco Use Types Packs/Day Years [...] Description 07/29/2024 2:15 PM EST Office Visit [facility] [address] [place] [phone] Kay Mackay MD [address] [place] [phone] 08/23/2024 2:00 PM EDT Office Visit [facility] [address] [place] [phone] Faith Mason MD [address] [place] [phone] 09/20/2024 3:00 PM EDT Office Visit [facility] ADULT DENT[facility] [address] [place] [phone] Shiva, Karen [address] [place] [address] documented as of this encounter Visit Diagnoses Not on filedocumented in this encounter Additional Health Concerns Assessment Noted Time PHQ-9 Depression Total Score: 14 023 2:21 PM EDT documented as of this encounter Care Teams Search And Rescue Officer Relationship Specialty Start Date End Date Faith Mason MD [address] [place] [phone] PCP - General Family Medicine 04/12/19 Linda Peralta Stable ManagerManager Sustainability 06/08/24 documented as of this encounter
--- OUTSIDE RECORDS SUMMARY | 2024-07-18 12:42 | XMS_ITS | Encounter Summary ---
Author Organization [employer] Address [address] [place] [address] 7t [place] [address] Care Team Providers Care Chopping Machine Operator Name Role Phone Faith Mason MD Primary Care Provide r Reason for Visit * Reason Comments Med Refill Encounter Details Date Type Department Care Team (Late st Contact Info) Description 06/24/2023 Refill [facility] [address] [place], [place] [phone] Faith Mason MD [address] [place], [place] [phone] Social History Tobacco Use Types Packs/Day Years [...] Description 07/29/2024 2:15 PM EST Office Visit [facility] [address] [place] [phone] Kay Mackay MD [address] [place] [phone] 08/23/2024 2:00 PM EDT Office Visit [facility] [address] [place] [phone] Faith Mason MD [address] [place] [phone] 09/20/2024 3:00 PM EDT Office Visit [facility] ADULT DENTAL [address] [place] [phone] Shiva, Karen [address] [place] [address] documented as of this encounter Visit Diagnoses Not on filedocumented in this encounter Additional Health Concerns Assessment Noted Time PHQ-9 Depression Total Score: 14 023 2:21 PM EDT documented as of this encounter Care Teams Chopping Machine Operator Relationship Specialty Start Date End Date Faith Mason MD [address] [place] [phone] PCP - General Family Medicine 04/12/19 Linda Peralta Technology Applications EngineerTinsel Machine Operator 06/08/24 documented as of this encounter
--- OUTSIDE RECORDS SUMMARY | 2024-07-18 12:42 | XMS_ITS | Encounter Summary ---
Author Organization [employer] Address [address] [facility] 7t [place] [address] Care Team Providers Care Architectural Job Captain Name Role Phone Faith Mason MD Primary Care Provide r Reason for Visit * Reason Onset Date Comments Durable Medical Equipment 11/05/2023 Encounter Details Date Type Department Care Team ([facility] st Contact Info) Description 11/05/2023 Telephone [facility] MEDICINE [address] [place], [place] [phone] Faith Mason MD [address] [place] [address] Durable Medical Equipment Social History Tobacco Use [...] 11/05/2023 12:47 PM EDT Silver Mckeon at [facility] calling to request the following DME. Shower Chair Shower grab bars Wheel chair Rolator walker with seat documented in this encounter Plan of Treatment Upcoming Encounters Date Type Department Care Team (Late st Contact Info) Description 07/29/2024 2:15 PM EST Office Visit [facility] MEDICINE [address] [place] [phone] Kay Mackay MD [address] [place] [phone] 08/23/2024 2:00 PM EDT Office Visit [facility] MEDICINE [address] [place] [phone] Faith Mason MD [address] [place] [address] 09/20/2024 3:00 PM EDT Office Visit [facility] ADULT DENTAL [address] [place] [address] Karen Shannon [address] [place] [address] documented as of this encounter Visit Diagnoses Not on filedocumented in this encounter Additional Health Concerns Assessment Noted Time PHQ-9 Depression Total Score: 14 023 2:21 PM EDT documented as of this encounter Care Teams Architectural Job Captain Relationship Specialty Start Date End Date Faith Mason MD [address] [place] [address] PCP - General Family Medicine 04/12/19 Linda Peralta AntiquerCommunity Service Patrol Officer 06/08/24 documented as of this encounter
== END 2024-07-18 11:03 | disposition home or self-care (01) ==
LOC: HO.MAMMO 11:02
PROVIDERS: PCP Internal Medicine; Visit Provider Internal Medicine
DX: Z12.31 Encounter for screening mammogram for malignant neoplasm of breast (principal)
CPT/HCPCS: 77063; 77067

== ENCOUNTER → 2024-07-18 11:15 | Outpatient (BNV) | payer MEDICAID, SELFPAY | PROVIDERS: PCP Internal Medicine; Visit Provider Internal Medicine | DX: Z12.31 Encounter for screening mammogram for malignant neoplasm of breast (principal) | CPT/HCPCS: 77063; 77067 ==

== ENCOUNTER 2024-07-19 14:01 | Outpatient (AMB) | payer MEDICAID, SELFPAY ==
--- NOTE | 2024-07-19 11:52 | A.OFFVIS_ITS ---
Vital Signs 07/19/24 14:11 Height 5 ft 3 in Weight 218 lb BMI 38.6 Blood Pressure Location Rt brachial Position Sitting Pulse Source Pulse Oximeter Intake Visit Reasons: DM Intake Note: Patient presents today for a follow-up on Type 2 Diabetes Mellitus: Last Diabetic Eye exam: 12/02/23 Last Podiatry Exam: Does not see a Regional Office Coordinator Most recent HbA1c: 8.0%, 07/05/2024 Random Glucose- 230 mg/dL, Today Scouring Machine Tender Required: Yes Scouring Machine Tender Language: Top Frame Maker Services: Scouring Machine Tender Offered & Declined Accompanied by: Self / Same As Patient Allergies No Known Allergies Allergy (Verified 06/28/24 10:12) HPI Comments Details: Patient is a?59-year-old female with DM type 2 who presents for continued management of her diabetes. She was last seen 07/05/24 with an A1C of 8% which may not be an accurate indictor given end stge renal disease it is however coming down. 12/03/23 9.1%. Says she got started on a freestyle Tika 3+ Past medical history includes :? diabetes type 2, end-stage renal disease,dialysis MWF Micro and macrovascular complications: end-stage renal disease, retinopathy with current anti VEGF therapy Previous medication: Degludec diarrhea Diabetes medications: ? Toujeo 14 units Humalog before meals 80-150 8 units 151-200 10 units 201 to 300 12 units Over 300 14 units Januvia 25 mg PO daily Meter readings: tests twice daily avg 292 am running high 200's pm running up to 300 Hyperglycemia: + polyuria Last LDL 30 12/15 Exercise: limited Adjunct Instructor In Economics - CDE education: sees bruise trimmer at dialysis Regional Office Coordinator: self care Denies numbness, tingling, cramping Ophthalmology evaluation: last eye appointment 12/02/23 Has had retinal injections. I confirmed her dosing of levothyroxine 25 mcg with the pharmacist 02/25/24.. 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 Uncontrolled type 2 diabetes mellitus with hyperglycemia, with long-term current use of insulin Hidradenitis suppurativa Pneumonia Type 2 diabetes mellitus with hyperglycemia Paroxysmal atrial flutter Dysphonia Chronic cough Urinary frequency Dyspnea on exertion Unstable gait Asthma Chronic low back pain without sciatica Osteoarthritis of both knees Kidney stones Depression AMARJIT (obstructive sleep apnea) Normocytic anemia ESRD needing dialysis CHF (congestive heart failure) Obesity due to excess calories CAD (coronary artery disease) GERD (gastroesophageal reflux disease) Thyroid disease AV fistula HLD (hyperlipidemia) ESRD (end stage renal disease) T2DM (type 2 diabetes mellitus) End stage renal disease on dialysis Dialysis patient Renal failure (ARF), acute on chronic HTN (hypertension) Surgical History History of cardiac cath History of kidney surgery Hx of cholecystectomy Hx of bone graft Family History Father CVD (cardiovascular disease) Diabetes Mother Diabetes Sister Stomach cancer Social History Household Members: Spouse Household Members Other:: , brother, uncles Housing: House Do you presently have visiting nurse or other home services: Yes Unable to assess alcohol history related to: Unknown Alcohol intake: never Patient Tobacco Use Status: Never used Tobacco Advance Directives Date on File: 02/15/21 service: No Current occupational status: disabled Current occupation: right hand dominant Physical Exam Vital Signs: BMI result Body Mass Index 38.6 Const Other: Absence of Cushingoid features. Absence of acromegalic features. Heart S1 S2, Reg R/R. No M/R G. Skin exam reveals absence of vitiligo or acanthosis nigricans.treace edema no ulcers on foot. sensation intact. 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 She was started on a freestyle Tika 3+ today in the office and Toujeo was increased to 18 units with the same sliding scale I will see her in 4 weeks for results of her freestyle Tika The patient had an opportunity to ask questions regarding treatment plan. The patient expressed understanding and agreement with the above treatment plan. The patient is aware they should contact our office by phone for worsening glucose readings or for any low blood sugars which may warrant a change in diabetes medication. Compliance is encouraged with medications and any followup testing/consults which may have been ordered. The patient was counseled to achieve a target A1C of 7% (154 avg). Fasting blood sugars should be 90-130 in the morning and less than 180 two hours after meals. Reviewed the relationship between poor diabetic control and the development of complications. 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
[2024-07-19 14:11] VITALS: BMI 38.6
[2024-07-19 14:30] LABS: Glucose, Whole Blood 230 mg/dL (60-115)
--- OUTSIDE RECORDS SUMMARY | 2024-07-19 17:33 | XMS_ITS | Data Portability ---
Author Organization [place] - [facility], [facility] Address [address] [place] [address] [id number] [place] [address] Assessment No assessment recorded. Plan of Treatment Reminders Order Date Submit Date Provider Last Modified By Organization Details Last Modified Time Details Appointments None recorded. Lab pap, IG + HPV 2016 017 [facility], [address] [place], [address] 7 07:56:44 Referral None recorded. Procedures None recorded. Surgeries None recorded. Imaging MAMMO, diagnostic, digital, unilateral 2016 017 hbender Not available 7 08:23:09 Medication Orders None recorded. Patient TargetsNo targets recorded. Patient Instructions Encounter Date Encounter Id Patient Instructions Last Modified By Organization Details Last Modified Time 11/04/2016 [id number] Discussed new pap smear guidelines, pt agreeable [...] types from this sourc e. Not Available [facility] [address] [place], [place], 11/06/2016 07:56:44 11/05/19 17 11/06/2016 pap, [...] ThinP rep Imagi ng nila Alexis other [facility] d. The Pap test is a scree key test with an inher ent false negat consuelo rate. [facility] at [facility] , [address] [place], [place] CLIA [id number] CL-PO [id number] 7. Not Available [facility] [address] [place], [place], 11/06/2016 07:56:44 Result Notes None recorded. Problems Name Problem SNOMED Code Status Onset Date Resolution Date Notes Provider Name and Address Organization Details Recorded Time Diabetes mellitus 54058903 Active 2016 Juliana arizmendi, [place] - [facility] 7 15:55:41 Chronic endometritis 60275131 Active 2016 Julinaa arizmendi, [place] - [facility] 15:55:49 Problem Notes None recorded. Procedures Surgical History Date Name Laterality Status Provider Name and Address Organization Details Recorded Time 11/04/2016 [id number] completed PAVAN BERNABE, [address] [facility], [address] [facility], [place], [address], [facility] 11/04/2016 17:17:09 11/04/2016 [id number] completed PAVAN KIDD DO [address] [facility], [address] [facility], [place], [address], [facility] 11/04/2016 17:17:05 05/25/1996 Other completed Juliana Gonzales [facility] 11/04/2016 16:01:20 05/25/1996 Other completed Juliana Gonzales [facility] 11/04/2016 16:03:12 Imaging Results None recorded. [...] Updated DateTime 11/04/2016 160.02 cm 40.4 kg/m2 996216.0 6 g 132 mm[Hg] 60 mm[Hg] Juliana Gonzales [facility] 7 15:53:30 Social History Question Answer Notes LastModified by Organizat ion Details LastModified Time Tobacco Smoking Status Never Smoker Julianamaribel Gonzales null, [facility] 11/04/2016 15:58:24 What Is Your Level [...] SNOMED-CT Code Diagnosis ICD10 Code Diagnosis Note [id number] PAVAN KIDD DO SHO1 4 ARMANDO DORADO,[facility] [address] [place] [address] 11/04/2016 15:42:27 11/04/2016 17:00:22 Gynecologic examination 18938786 Z01.411 51 yo annual exam Mass of left breast 1224 479648 5910601 N63 Health Concerns Section Related Observation LastModified by Organization Detai ls LastModified Time None Recorded Concern Status LastModified by Organization Details LastModified Time None Recorded Advance Directives Directive None Recorded Payers Encounter Date Sequence Insurance Name Policy Number Policy Dup[place] Covered Member ID Dup[place] Member ID Guarantor Name 11/04/2016 1 [place]ICA[place] Sarah Madden [id number] Sarah Madden Notes Date Note Type Note Provider Name and Address Organization Details Recorded Time 11/04/2016 text/html [facility] Annual GYNReported bypatient.Menstrua l cycle:Perimenopaus al(LMP 06/2015) Vagina:Normal vaginal discharge Breast:No nipple discharge;Breast Pain Bilateral;Breast lump(left inner breast-getting larger) Current Contraception:[place] gamous relationship Sexual complaints:No pain during intercourse Preventive measures:Encourage self breast examination; Encourage regular exerciseNotes:51 yo SHOE STAMPER here for annual. Pt is Hungarian speaking only-wants to interpret, declined professional interpreter for the deaf. last Lcac Operator exam was about 5 yrs ago in [place]. c/o B/L breast tenderness for past 5 yrs with more recent? ? ? increase in left breast balls. PAVAN KIDD DO [address] Floor, [place], [address], [place] [facility] 11/04/2016 17:24:08 OBGyn Episode No OBEpisode recorded.
--- OUTSIDE RECORDS SUMMARY | 2024-07-19 17:33 | XMS_ITS | Encounter Summary ---
Author Organization [employer] Address [address] [facility] 7t [place] [address] Care Team Providers Care Delivery Clerk Name Role Phone Faith Mason MD Primary Care Provide r Encounter Details Date Type Department Care Team ([facility] st Contact Info) Description 03/08/2024 Orders Only [facility] MEDICINE [address] [place], [place] [phone] Faith Mason MD [address] [place] [address] Social History Tobacco Use Types Packs/Day Years [...] 2:15 PM EST Office Visit [facility] MEDICINE [address] [place] [address] Kay Mackay MD [address] [place] [phone] 08/23/2024 2:00 PM EDT Office Visit [facility] MEDICINE [address] [place] [address] Faith Mason MD [address] [place] [phone] 09/20/2024 3:00 PM EDT Office Visit [facility] ADULT DENTAL [address] [place] [address] [phone] Karen Shannon [address] [place] [address] documented as of this encounter Visit Diagnoses Not on filedocumented in this encounter Additional Health Concerns Assessment Noted Time PHQ-9 Depression Total Score: 6 11/24/19 24 2:35 PM EDT documented as of this encounter Care Teams Delivery Clerk Relationship Specialty Start Date End Date Faith Mason MD [address] [place] [address] PCP - General Family Medicine 04/12/19 Linda Peralta Extension Division DirectorUnionmelt Operator 06/08/24 documented as of this encounter
--- OUTSIDE RECORDS SUMMARY | 2024-07-19 17:33 | XMS_ITS | Encounter Summary ---
Author Organization [facility] Address [address] [place] [phone] Phone Care Team Providers Care Hitch Technician Name Role Phone Ines Zamora MD Primary Care Provider [phone] Encounter Details Date Type Department Care Team (Late st Contact Info) Description 06/17/2024 Treatment [facility] [address] [phone] Sweetie Pandey MD [facility] [address] Social History Tobacco Use Types [...] care for end stage renal disease. Attending Leather Belt Shaper: SWEETIE PANDEY Dialysis Location: [facility] Schedule: Shift: 2 ADEQUACY ASSESSMENT [...] on filedocumented in this encounter Care Teams Hitch Technician Relationship Specialty Start Date End Date Ines Zamora MD [address] [place] [phone] PCP - General 06/04/20 documented as of this encounter
--- OUTSIDE RECORDS SUMMARY | 2024-07-19 17:33 | XMS_ITS | Encounter Summary ---
Author Organization [employer] Address [address] [place] [address] 7t [place] [address] Care Team Providers Care Toy Parts Former Supervisor Name Role Phone Faith Mason MD Primary Care Provide r Encounter Details Date Type Department Care Team (Late st Contact Info) Description 07/19/2024 Orders Only GENERIC EXTERNAL DATA DEPARTMENT Provider, [...] Description 07/29/2024 2:15 PM EST [facility] [address] [place] [address] Kay Mackay MD [address] [place] [address] 08/23/2024 2:00 PM EDT Office Visit [facility] [address] [place] [address] Faith Mason MD [address] [place] [address] 09/20/2024 3:00 PM EDT Office Visit [facility] ADULT DENTAL [address] [place] [address] Karen Shannon [address] [place] [address] documented as of this encounter Procedures Procedure Name Priority Date/Time Associated Diagnosis Comments GLUCOSE, WHOLE BLOOD Routine 07/19/2024 2:14 PM EST documented in this encounter Results * (ABNORMAL) Glucose, Whole Blood (07/19/2024 2:14 PM EST) Glucose, Whole Blood 230(H) 60 - 115 mg/dL [facility] Comment:METER #: [id number] Testing performed in the Endocrinology Department [address] , [address], [place]. 07/19/2024 2:14 PM EST 07/19/2024 2:29 PM EST us Generic External Data Provider LAB BLOOD ORDERAB LES Final Result Performing Organization Address City/State/[facility] Co de Phone Number [facility] [address] [place] [address] [phone] documented in this encounter Visit Diagnoses Not on filedocumented in this encounter Additional Health Concerns Assessment Noted Time PHQ-9 Depression Total Score: 6 11/24/19 24 2:35 PM EDT documented as of this encounter Care Teams Toy Parts Former Supervisor Relationship Specialty Start Date End Date Faith Mason MD [address] [place] [address] PCP - General Family Medicine 04/12/19 Linda Peralta Intercell Connector PlacerGold Beater 06/08/24 documented as of this encounter
--- OUTSIDE RECORDS SUMMARY | 2024-07-19 17:33 | XMS_ITS | Encounter Summary ---
Author Organization [employer] Address [address] [place] [address] 7t [place] [address] Care Team Providers Care Stock Raiser Name Role Phone Faith Mason MD Primary Care Provide r Reason for Visit * Reason Comments Med Refill Encounter Details Date Type Department Care Team (Late st Contact Info) Description 07/18/[address] [facility] MEDICINE [address] [place], [place] [phone] Faith Mason MD [address] [place], [place] [phone] Other constipation Social History Tobacco Use Types [...] PM EST Office Visit [facility] MEDICINE [address] [place] [phone] Kay Mackay MD [address] [place] [phone] 08/23/2024 2:00 PM EDT Office Visit [facility] MEDICINE [address] [place] [phone] Faith Mason MD [address] [place] [address] 09/20/2024 3:00 PM EDT Office Visit [facility] ADULT DENTAL [address] [place] [phone] Karen Shannon [address] [place] [address] documented as of this encounter Visit Diagnoses Diagnosis Other constipation documented in this encounter Additional Health Concerns Assessment Noted Time PHQ-9 Depression Total Score: 6 11/24/19 24 2:35 PM EDT documented as of this encounter Care Teams Stock Raiser Relationship Specialty Start Date End Date Faith Mason MD [address] [place] [address] PCP - General Family Medicine 04/12/19 Linda Peralta Ethnic Studies ProfessorIs Technician 06/08/24 documented as of this encounter
--- OUTSIDE RECORDS SUMMARY | 2024-07-19 17:33 | XMS_ITS | Encounter Summary ---
Author Organization [facility] Address [address] [place] [phone] Phone Care Team Providers Care Drafter Electronic Name Role Phone Ines Zamora MD Primary Care Provider Encounter Details Date Type Department Care Team (Late st Contact Info) Description 06/24/2024 Treatment [facility] [address] [phone] Sweetie Pandey MD [facility] [address] Social History Tobacco Use [...] care for end stage renal disease. Attending Windows Mobile Developer: SWEETIE PANDEY Dialysis Location: [facility] Schedule: Shift: 2 ADEQUACY ASSESSMENT [...] on filedocumented in this encounter Care Teams Drafter Electronic Relationship Specialty Start Date End Date Ines Zamora MD [address] [place] [phone] PCP - General 06/04/20 documented as of this encounter
--- OUTSIDE RECORDS SUMMARY | 2024-07-19 17:34 | XMS_ITS | Encounter Summary ---
Author Organization [facility] Address [address] [place] [phone] Phone Care Team Providers Care Operations Advisor Name Role Phone Ines Zamora MD Primary Care Provider [phone] Encounter Details Date Type Department Care Team (Late st Contact Info) Description 07/04/2024 Treatment [facility] [address] [phone] Sweetie Pandey MD [facility] [address] Social History Tobacco Use Types [...] care for end stage renal disease. Attending Stitch Welder: SWEETIE PANDEY MD Dialysis Location: [facility] Schedule: Shift: 2 ADEQUACY ASSESSMENT Kt/V, [...] on filedocumented in this encounter Care Teams Operations Advisor Relationship Specialty Start Date End Date Ines Zamora MD [address] [place] [phone] PCP - General 06/04/20 documented as of this encounter
--- OUTSIDE RECORDS SUMMARY | 2024-07-19 17:34 | XMS_ITS | Encounter Summary ---
Author Organization [employer] Address [address] [place] [address] 7t [place] [address] Care Team Providers Care Burlesque Dancer Name Role Phone Faith Mason MD Primary Care Provide r Reason for Visit * Reason Onset Date Comments Durable Medical Equipment 11/05/2023 Encounter Details Date Type Department Care Team ([facility] st Contact Info) Description 11/05/2023 Telephone [facility] MEDICINE [address] [place], [place] [phone] Faith Mason MD [address] [place] [address] Durable Medical Equipment Social History Tobacco Use [...] 11/05/2023 12:47 PM EDT Silver Mckeon at [facility] calling to request the following DME. Shower Chair Shower grab bars Wheel chair Rolator walker with seat documented in this encounter Plan of Treatment Upcoming Encounters Date Type Department Care Team (Late st Contact Info) Description 07/29/2024 2:15 PM EST Office Visit [facility] MEDICINE [address] [place] [phone] Kay Mackay MD [address] [place] [phone] 08/23/2024 2:00 PM EDT Office Visit [facility] MEDICINE [address] [place] [phone] Faith Mason MD [address] [place] [address] 09/20/2024 3:00 PM EDT Office Visit [facility] ADULT DENTAL [address] [place] [address] Karen Shannon [address] [place] [address] documented as of this encounter Visit Diagnoses Not on filedocumented in this encounter Additional Health Concerns Assessment Noted Time PHQ-9 Depression Total Score: 14 023 2:21 PM EDT documented as of this encounter Care Teams Burlesque Dancer Relationship Specialty Start Date End Date Faith Mason MD [address] [place] [address] PCP - General Family Medicine 04/12/19 Linda Peralta SteersmanCourseware Developer 06/08/24 documented as of this encounter
--- OUTSIDE RECORDS SUMMARY | 2024-07-19 17:34 | XMS_ITS | Encounter Summary ---
Author Organization [employer] Address [address] [place] [address] 7t [place] [address] Care Team Providers Care Shuttle Threader Name Role Phone Faith Mason MD Primary Care Provide r Reason for Visit * Reason Onset Date Comments FYI 08/13/2023 Encounter Details Date Type Department Care Team ([facility] st Contact Info) Description 08/13/2023 Telephone [facility] [address] [place], [place] [phone] Faith Mason MD [address] [place] [address] FYI Social History Tobacco Use Types Packs/Day [...] of today. Any questions contact Tameka at [phone] documented in this encounter Plan of Treatment Upcoming Encounters Date Type Department Care Team (Late st Contact Info) Description 07/29/2024 2:15 PM EST Office Visit [facility] [address] [place] [phone] Kay Mackay MD [address] [place] [phone] 08/23/2024 2:00 PM EDT Office Visit [facility] [address] [place] [phone] Faith Mason MD [address] [place] [phone] 09/20/2024 3:00 PM EDT Office Visit [facility] [address] [place] [phone] Karen Shannon [address] [place] [address] documented as of this encounter Visit Diagnoses Not on filedocumented in this encounter Additional Health Concerns Assessment Noted Time PHQ-9 Depression Total Score: 14 10/07/ 023 2:21 PM EDT documented as of this encounter Care Teams Shuttle Threader Relationship Specialty Start Date End Date Faith Mason MD [address] [place] [address] PCP - General Family Medicine 04/12/19 Linda Peralta Radio Sales Account ExecutiveDatabase Administration Project Manager 06/08/24 documented as of this encounter
--- OUTSIDE RECORDS SUMMARY | 2024-07-19 17:34 | XMS_ITS | Encounter Summary ---
Author Organization [employer] Address [address] [facility] [address] [place] [address] Care Team Providers Care Executive Casino Host Name Role Phone Faith Mason MD Primary Care Provide r Reason for Visit * Reason Comments Med Refill Encounter Details Date Type Department Care Team (Late st Contact Info) Description 04/05/2024 Refill [facility] [address] [place], [place] [phone] Faith Mason MD [address] [place] [address] Atrial flutter, unspecified type (CMS/HCC); Diabetic polyneuropathy [...] Description 07/29/2024 2:15 PM EST Office Visit [facility] [address] [place] [phone] Kay Mackay MD [address] [place] [phone] 08/23/2024 2:00 PM EDT Office Visit [facility] [address] [place] [address] [phone] Faith Mason MD [address] [place] [address] [phone] 09/20/2024 3:00 PM EDT Office Visit [facility] [address] [place] [address] [phone] Karen Shannon [address] [place] [address] documented as of this encounter Visit Diagnoses Diagnosis Atrial flutter, unspecified type (CMS/HCC) Diabetic polyneuropathy associated with type 2 diabetes mellitus (CMS/HCC) documented in this encounter Additional Health Concerns Assessment Noted Time PHQ-9 Depression Total Score: 6 11/24/19 24 2:35 PM EDT documented as of this encounter Care Teams Executive Casino Host Relationship Specialty Start Date End Date Faith Mason MD [address] [place] [phone] PCP - General Family Medicine 04/12/19 Linda Peralta Supervisor SampleCosmetic Consultant 06/08/24 documented as of this encounter
--- OUTSIDE RECORDS SUMMARY | 2024-07-19 17:34 | XMS_ITS | Encounter Summary ---
Author Organization [facility] Address [address] [place] [phone] Phone Care Team Providers Care Cause Analyst Name Role Phone Ines Zamora MD Primary Care Provider [phone] Encounter Details Date Type Department Care Team (Late st Contact Info) Description 07/06/2024 Treatment [facility] [address] [phone] Sweetie Pandey MD [facility] [phone] Social History Tobacco Use Types [...] care for end stage renal disease. Attending Collator Hand: SWEETIE PANDEY MD Dialysis Location: [facility] Schedule: Shift: 2 ADEQUACY ASSESSMENT Kt/V, [...] on filedocumented in this encounter Care Teams Cause Analyst Relationship Specialty Start Date End Date Ines Zamora MD [address] [place] [phone] PCP - General 06/04/20 documented as of this encounter
--- OUTSIDE RECORDS SUMMARY | 2024-07-19 17:34 | XMS_ITS | Encounter Summary ---
Author Organization [employer] Address [address] [facility] 7t [place] [address] Care Team Providers Care Asphalt Distributor Operator Name Role Phone Faith Mason MD Primary Care Provide r Reason for Visit * Reason Comments Med Refill Encounter Details Date Type Department Care Team (Late st Contact Info) Description 04/04/2024 Refill [facility] [address] [place], [place] [phone] Faith Mason MD [address] [place] [address] Essential hypertension Social History Tobacco Use Types [...] EST Office Visit [facility] [address] [place] [phone] Kay Mackay MD [address] [place] [phone] 08/23/2024 2:00 PM EDT Office Visit [facility] [address] [place] [phone] Faith Mason MD [address] [place], [place] [phone] 09/20/2024 3:00 PM EDT Office Visit [facility] [address] [place] [address] Karen Shannon [address] [place] [address] documented as of this encounter Visit Diagnoses Diagnosis Essential hypertension Unspecified essential hypertension documented in this encounter Additional Health Concerns Assessment Noted Time PHQ-9 Depression Total Score: 6 11/24/19 24 2:35 PM EDT documented as of this encounter Care Teams Asphalt Distributor Operator Relationship Specialty Start Date End Date Faith Mason MD [address] [place] [address] PCP - General Family Medicine 04/12/19 Linda Peralta Syrup Machine LaborerOffice 365 Consultant 06/08/24 documented as of this encounter
--- OUTSIDE RECORDS SUMMARY | 2024-07-19 17:34 | XMS_ITS | Encounter Summary ---
Author Organization [employer] Address [address] [facility] 7t [place] [address] Care Team Providers Care Community Outreach Advocate Name Role Phone Faith Mason MD Primary Care Provide r Encounter Details Date Type Department Care Team ([facility] st Contact Info) Description 07/17/2023 Telephone [facility] [address] [place], [place] [phone] Faith Mason MD [address] [place] [address] Social History Tobacco Use Types Packs/Day Years [...] 07/29/2024 2:15 PM EST Office Visit [facility] [address] [place] [phone] Kay Mackay MD [address] [place] [address] 08/23/2024 2:00 PM EDT Office Visit [facility] [address] [place] [address] Faith Mason MD [address] [place] [address] 09/20/2024 3:00 PM EDT Office Visit [facility] [address] [place] [address] Karen Shannon [address] [place] [address] documented as of this encounter Visit Diagnoses Not on filedocumented in this encounter Additional Health Concerns Assessment Noted Time PHQ-9 Depression Total Score: 14 023 2:21 PM EDT documented as of this encounter Care Teams Community Outreach Advocate Relationship Specialty Start Date End Date Fatih Mason MD [address] [place] [phone] PCP - General Family Medicine 04/12/19 Linda Peralta Lock InstallerHigh Rigger 06/08/24 documented as of this encounter
--- OUTSIDE RECORDS SUMMARY | 2024-07-19 17:34 | XMS_ITS | Clinical Summary ---
Author Organization [employer] Address [address] [place] [address] [address] [place] [address] Care Team Providers Care Special Education Case Manager Name Role Phone Faith Mason MD [...] take Blood Pressure daily Active nystatin (Mycostatin) creamIndications: Vulvar abscess Apply twice daily as needed between skin folds for fungal infection 30 g 1 Active HumaLOG KWIKPEN 100 UNIT/ML injection INJECT 8-14 UNITS SUBCUTANEOUSLY THREE TIMES DAILY BEFORE MEALS PER SLIDING SCALE (BS 80-100: 8 units; 101-200: 10 units; 201-300: 12 units; >301 14 units) 15 mL 11 024 Active polycarbophil (FiberCon) 625 MG tabletIndications :Constipation, unspecified constipation type Take 1 tablet (625 mg) by mouth in the morning. 30 tablet 024 2024 Active Blood Glucose Monitoring Suppl (FreeStyle [place] Lite) w/Device kitIndications:Ty pe 2 diabetes mellitus with hyperglycemia, with long-term current use of insulin ([facility]) Use to test blood sugar 3 times daily 1 kit Active TRUEplus Lancets 33G miscIndications:T ype 2 diabetes mellitus with hyperglycemia, with long-term current use of insulin ([facility]) TEST BLOOD SUGAR THREE TIMES DAILY 100 each 11 024 Active levothyroxine (Synthroid, Levoxyl) 25 MCG tablet TAKE 1 TABLET BY MOUTH EVERY MORNING 90 tablet 3 024 Active omeprazole (PriLOSEC) [address] capsuleIndication s:Gastroesophagea l reflux disease, unspecified whether esophagitis present Take 1 capsule (20 mg) by mouth before breakfast. Do not crush or chew. 30 capsule 11 024 2024 Active Alcohol Swabs (Alcohol Prep) 70 % padsIndications:T ype 2 diabetes mellitus with hyperglycemia, with long-term current use of insulin ([facility]) USE DIRECTED THREE TIMES DAILY 100 each 11 024 Active insulin glargine (Toujeo Max SoloStar) 300 UNIT/ML injectionIndicati ons:Type 2 diabetes mellitus with hyperglycemia, with long-term current use of insulin ([facility]) INJECT 28 UNITS SUBCUTANEOUSLY EVERY DAY 6 mL 1 024 Active D3 Super Strength 50 MCG (2000 UT) capsule TAKE 1 CAPSULE BY MOUTH EVERY MORNING 90 capsule 1 Active atorvastatin (Lipitor) 40 MG tablet TAKE 1 TABLET BY MOUTH EVERYDAY AT NOON 90 tablet 1 024 Active sodium chloride ([place]) 0.65 % nasal spray Administer 1 spray into each nostril if needed for congestion. 30 mL 12 024 2024 Active melatonin 5 MG tabletIndications :Primary insomnia TAKE 1 TABLET BY MOUTH AT BEDTIME for SLEEP 90 tablet 1 024 Active amLODIPine (Norvasc) 10 MG tabletIndications :Essential hypertension Take 1 tablet (10 mg) by mouth Once per day. 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 236 mL Active brimonidine (AlphaGAN) 0.2 % ophthalmic solution Administer 1 drop into the left eye 3 times daily. Active Continuous Glucose Stroke Coordinator (FreeStyle Tika 3 [place]) device Use as directed Active Continuous Glucose [...] the left eye 3 times daily. Active gabapentin (Neurontin) 100 MG capsuleIndication s:Diabetic polyneuropathy associated with type 2 diabetes mellitus (CMS/HCC) TAKE 1 CAPSULE BY MOUTH TWICE DAILY IN THE MORNING AND IN THE EVENING 60 capsule Active Acetaminophen Extra Strength 500 MG tabletIndications :Polyarthralgia TAKE 2 TABLETS BY MOUTH EVERY 8 HOURS NEEDED FOR MILD PAIN 30 tablet 2 Active hydrALAZINE (Apresoline) 50 MG tablet Take 1 tablet (50 mg) by mouth 3 times daily. 270 tablet 1 Active metoprolol tartrate (Lopressor) 25 MG tablet Take 0.5 tablets (12.5 mg) by mouth 2 times daily. 30 tablet 3 Active apixaban (Eliquis) 5 MG tabletIndications :Atrial flutter, unspecified type (CMS/HCC) TAKE 1 TABLET BY MOUTH TWICE DAILY IN THE MORNING AND IN THE EVENING 60 tablet 025 Active docusate sodium (Colace) 100 MG capsuleIndication s:Other constipation TAKE 1 CAPSULE BY MOUTH TWICE DAILY 180 capsule 025 Active docusate sodium (Colace) 100 MG capsuleIndication s:Other constipation Take 1 capsule (100 mg) by mouth 2 times daily. 60 capsule 1 025 2024 Discontinued Active Problems Patient Care Coordination No te [...] 9:19 AM EST): -Currently followed by [facility] - last available consult note Jan 2022 w/ Dr. Miller -Continues with current med regimen: -Januvia 25mg PO daily -Tuojeo insulin 28 units subcutaneous daily -Lispro AC per SS -Dexcom ordered and managed through [facility] End[facility] -Strongly encourage pt to schedule [...] remission 09/02/2018 Coronary artery disease invo lving lower elwha coronary artery of lower [place] heart with unstable angina pectoris 06/03/2018 Calculus of kidney 06/03/2018 Atypical chest pain 06/03/2018 Chronic endometritis 11/04/2016 Resolved Problems Problem Noted Date Diagnosed Date Resolved Date Type 2 diabetes mellitus without complication 09/03/19 19 05/21/2022 Encounters Date Type Department Care Team Description 07/19/2024 Orders Only GENERIC EXTERNAL DATA DEPARTMENT Provider, Generic External Data 07/18/2024 Refill [facility] [address] [facility] [place] [address] Faith Mason MD Other constipation 07/05/2024 Orders Only GENERIC EXTERNAL DATA DEPARTMENT Provider, Generic External Data 06/17/2024 Refill [facility] [address] [place] [address] Faith Mason MD 06/17/2024 Refill [facility] [address] [place] [address] Faith Mason MD Atrial flutter, unspecified type (CMS/HCC) 06/16/2024 Telephone [facility] [address] [place] [address] Faith Mason MD 06/08/2024 Telephone [facility] [address] [place] [address] Faith Mason MD Care Coordination (ICP Care Plan) 06/07/2024 10:00 AM EST Office Visit [facility] [address] [place] [address] Karen Shannon 06/03/2024 Orders Only [facility] [address] [facility] [place] [address] Faith Mason MD Post-menopausal bleeding (Primary Dx) 05/31/2024 Refill [facility] [address] [facility] [place] [address] Faith Mason MD Atrial flutter, unspecified type (CMS/HCC); Diabetic polyneuropathy associated with type 2 diabetes mellitus (CMS/HCC); Polyarthralgia 05/26/2024 9:30 AM EST Office Visit [facility] [address] [facility] [place] [address] Faith Mason MD Other constipation (Primary Dx); Essential hypertension; Type 2 diabetes mellitus with hyperglycemia, with long-term current use of insulin (CMS/HCC); Metabolic encephalopathy; Chronic nonintractable headache, unspecified headache type 05/26/2024 Travel 05/19/2024 Telephone [facility] [address] [place] [address] Bernice Fitzpatrick, RN Results 05/19/2024 Orders Only [facility] [address] [facility] [address] [facility] [address] Faith Mason MD Thyroid nodule (Primary Dx) 05/11/2024 3:15 PM EST Office Visit [facility] [address] [place] [address] Faith Mason MD Acute maxillary sinusitis, recurrence not specified (Primary Dx); Type 2 diabetes mellitus with hyperglycemia, with long-term current use of insulin ([facility]); Acute cough 05/11/2024 Travel 05/10/2024 Telephone [facility] [address] [place] [address] Faith Mason MD Hospital Follow-up 05/03/2024 Refill [facility] [address] [facility] [place] [address] Faith Mason MD Atrial flutter, unspecified type (CMS/HCC); Diabetic polyneuropathy associated with type 2 diabetes mellitus (CMS/HCC); Coronary artery disease involving lower elwha coronary artery of lower el[place]a heart with unstable angina pectoris (CMS/HCC) 05/02/2024 Patient Outreach [facility] [address] [place] [address] Faith Mason MD Transition Of Care (Tcm) (HDF unscheduled, SDOH unable to reach LVM) 04/26/2024 Patient Outreach [facility] [address] [place] [address] Faith Mason MD Error (VOID this visit) [...] Description 07/29/2024 2:15 PM EST Office Visit [facility] [address] [place] [address] Kay Mackay MD [address] [place] [address] 08/23/2024 2:00 PM EDT Office Visit [facility] [address] [place] [address] Faith Mason MD [address] [place] [address] 09/20/2024 3:00 PM EDT Office Visit [facility] [address] [place] [address] Karen Shannon [address] [place] [address] Health Maintenance Due Date Last Done Comments [...] 07/23/2021 07/23/2020, 07/23/2020 COVID-19 Vaccine ( - 2023- season) 2024 05/13/2023, 05/07/2021, 07/05/2020 Dental X-Ray: Bitewings 01/24/2024 01/23/20 23, 06/24/2019, 06/29/2008 Zoster Vaccines (1 of 2) 05/12/2024 Diabetes: Hemoglobin A1C 06/17/2024 024, 11/24/2023, 08/04/2023, Additional history exists Mammogram 07/16/2024 07/16/2023, 02/01/2020 Cervical Cancer Screening 10/12/2024 Pap Smear 10/12/2024 10/13/2023, 07/25/2020 Depression Screening 11/23/2024 11/24/2023, 11/24/19 Lipid Panel 11/30/2024 12/01/2023, 09/09/2022 Alcohol/Substance Use [...] WHOLE BLOOD Routine 07/19/2024 2:14 PM EST GLUCOSE, WHOLE BLOOD Routine 07/05/2024 2:43 PM EST NO CHARGE VISIT Routine 06/07/2024 10:00 AM EST POCT GLUCOSE Routine 05/11/2024 3:36 PM EST Type 2 diabetes mellitus with hyperglycemia, with long-term current use of insulin ([facility]) CTA CHEST PE PROTOCAL Routine 04/28/2024 12:32 [...] Maintenance Results * (ABNORMAL) Glucose, Whole Blood (07/19/2024 2:14 PM EST) Only the most recent of2 resultswithin the time period is included. Glucose, Whole Blood 230(H) 60 - 115 mg/dL [facility] Comment:METER #: [id number] Testing performed in the Endocrinology Department [address] , [address], [facility]. 07/19/2024 2:14 PM EST 07/19/2024 2:29 PM EST us Generic External Data Provider LAB BLOOD ORDERAB LES Final Result [facility] [address] [place] [address] [phone] * (ABNORMAL) POCT Glucose (05/11/2024 3:36 PM [...] EST Narrative 04/28/2024 9:15 AM EST ? [facility] ?[address] ?[place] [address] ? CT Scan Report ? Signed ? Patient: Madden Colon,Sarah ?MR#: [id number] ?? [id number] ? : 1965 ?Acct:[id number] ? Age/Sex: 59 / F ?ADM Date: 12/02/24 ? Loc: HO.IMC ?474-1 ? Attending Dr: Delvis Gomez MD ? Ordering Physician: Delvis Gomez MD ?? Date of Service: 04/28/24 ?? Procedure(s): CT angio chest PE protocol ?? Accession Number(s): [id number] ? cc: Delvis Gomez MD; Faith Mason [...] DD/ 0032 ? TD/TT: 04/28/24 0054 ? Electrical Subcontractor: ? Procedure Note Donotuseinterpreter, Image - 04/28/[address] [place] [address] [address] Scan Report Signed Patient: Vidal Dixon#: [id number] : 1965Acct:[id number] Age/Sex: 59 / FADM Date: 04/25/24 Loc: [facility] 474-[address]: Delvis Gomez MD Ordering Physician: Delvis Gomez MD Date of Service: 04/28/24 Procedure(s): CT angio chest PE protocol Accession Number(s): [id number] cc: Delvis Gomez MD; Faith Mason MD [...] 04/28/24 0912 DD/ 0032 TD/TT: 04/28/24 0054 Electrical Subcontractor: [employer] External Provider IMG CT PROCEDURES Edited Result - Final * XR Chest 1 View (04/25/2024 3:20 PM EST) Anatomical Region Laterality Modality Chest Radiographic Samira ging 04/25/2024 3:20 PM EST Narrative 04/25/2024 4:45 PM EST ? [facility] ?[address] ?[place] [address] ?XRay Report ? Signed ? Patient: Madden Colon,Sarah ?MR#: [id number] ?? [id number] ? : 1965 ?Acct:[id number] ? Age/Sex: 59 / F ?ADM Date: 12/02/24 ? Loc: HO.ED ? Attending Dr: ? Ordering Physician: Tarun Johnson MD ?? Date of Service: 04/25/24 ?? Procedure(s): XR chest 1V ?? Accession Number(s): [id number] ? cc: Faith Mason MD; Tarun Johnson [...] PM EST ?? RP ? Dictated By: ?Gloria Robbins MD ? Signed By: ?<Electronically signed by Gloria Robbins MD in OV> ? 04/25/24 1642 ? DD/ 1520 ? TD/TT: 04/25/24 1530 ? Electrical Subcontractor: PN ? Procedure Note Doncleoter, Image - 04/25/2024 [place] [address] XRay Report Signed Patient: Vidal Dixon#: [id number] : 1965Acct:[id number] Age/Sex: 59 / FADM Date: 04/25/24 Loc: HO.ED Attending Dr: Ordering Physician: Tarun Johnson MD Date of Service: 04/25/24 Procedure(s): XR chest 1V Accession Number(s): [id number] cc: Faith Mason MD; Tarun Johnson MD [...] 04/25/24 1642 DD/ 1520 TD/TT: 04/25/24 1530 Electrical Subcontractor: PN [employer] External Provider IMG XR PROCEDURES Final Result * (ABNORMAL) SARS-CoV-2 RNA, Influenza A/B, and RSV RNA, Ql NAAT (04/25/2024 1:00 PM EST) Influenza A PCR NEGATIVE Negative [facility] Influenza B PCR NEGATIVE Negative [facility] Resp Syncy Virus RNA Qual PCR NEGATIVE Negative [facility] SARS COV2 PCR POSITIVE(A) Negative [facility] Comment:All test results mus t [...] use by authorized laboratories.Testing performed on the [employer] GeneXpert utilizingreal-time RT-PCR.All SARS CoV2 and positive influenza A/B results arereported to [facility]. 04/25/2024 1:00 PM EST 04/25/2024 1:02 PM EST Generic External Data Provider LAB MICROBIOLOGY - GENERAL ORDERABLES Final Result [facility] [address] [place] [address] [phone] * CT Pelvis w/o Contrast (04/25/2024 11:56 AM EST) Anatomical Region Laterality Modality Body, Pelvis Computed Tomogra phy 04/25/2024 11:5 6 AM EST Narrative 04/25/2024 2:49 PM EST ? [facility] ?[address] ?[place] [address] ? CT Scan Report ? Signed ? Patient: Madden Colon,Sarah ?MR#: [id number] ?? [id number] ? : 1965 ?Acct:[id number] ? Age/Sex: 59 / F ?ADM Date: 04/25/24 ? Loc: HO.ED ? Attending Dr: ? Ordering Physician: Tarun Johnson MD ?? Date of Service: 04/25/24 ?? Procedure(s): CT pelvis wo IV con ?? Accession Number(s): [id number] ? cc: Faith Mason MD; Tarun Johnson [...] DD/ 1156 ? TD/TT: 04/25/24 1156 ? Electrical Subcontractor: ? Procedure Note Doncleoter, Image - 04/25/[address] [place] [address] [address] Scan Report Signed Patient: Vidal Dixon#: [id number] : 1965Acct:[id number] Age/Sex: 59 / FADM Date: 04/25/24 Loc: HO.ED Attending Dr: Ordering Physician: Tarun Johnson MD Date of Service: 04/25/24 Procedure(s): CT pelvis wo IV con Accession Number(s): [id number] cc: Faith Mason MD; Tarun Johnson MD [...] 04/25/24 1444 DD/ 1156 TD/TT: 04/25/24 1156 Electrical Subcontractor: [employer] External Provider IMG CT PROCEDURES Final Result * CT Head w/o Contrast (04/25/2024 11:56 AM EST) Anatomical Region Laterality Modality Head, Neck Computed Tomogra phy 04/25/2024 11:5 6 AM EST Narrative 04/25/2024 2:03 PM EST ? [facility] ?[address] ?[place] [address] ? CT Scan Report ? Signed ? Patient: Madden Colon,Sarah ?MR#: [id number] ?? [id number] ? : 1965 ?Acct:[id number] ? Age/Sex: 59 / F ?ADM Date: 12/02/24 ? Loc: HO.ED ? Attending Dr: ? Ordering Physician: Tarun Johnson MD ?? Date of Service: 04/25/24 ?? Procedure(s): CT head/brain wo IV con ?? Accession Number(s): [id number] ? cc: Faith Mason MD; Tarun Johnson [...] DD/ 1156 ? TD/TT: 04/25/24 1156 ? Electrical Subcontractor: ALEX ? Procedure Note Donleniinterpreter, Image - 04/25/[address] [place] [address] [address] Scan Report Signed Patient: Vidal Dixon#: [id number] : 1965Acct:[id number] Age/Sex: 59 / FADM Date: 04/25/24 Loc: HO.ED Attending Dr: Ordering Physician: Tarun Johnson MD Date of Service: 04/25/24 Procedure(s): CT head/brain wo IV con Accession Number(s): [id number] cc: Faith Mason MD; Tarun Johnson MD [...] by: Tomi Lerma DO 04/25/2024 02:00 PM [facility] Dictated By: Lembo,Tomás DO Signed By: <Electronically signed by Tomás Lerma, DO in OV> 04/25/24 1400 DD/ 1156 TD/TT: 04/25/24 1156 Electrical Subcontractor: ALEX [employer] External Provider IMG CT PROCEDURES Final Result * CT Cervical Spine w/o Contrast (04/25/2024 11:04 AM EST) Anatomical Region Laterality Modality Spine, C-spine Computed Tomogra phy 04/25/2024 11:0 4 AM EST Narrative 04/25/2024 2:03 PM EST ? [facility] ?[address] ?[place], [place] [address] ? CT Scan Report ? Signed ? Patient: Madden Colon,Sarah ?MR#: [id number] ?? [id number] ? : 1965 ?Acct:[id number] ? Age/Sex: 59 / F ?ADM Date: 04/25/24 ? Loc: HO.ED ? Attending Dr: ? Ordering Physician: Tarun Johnson MD ?? Date of Service: 04/25/24 ?? Procedure(s): CT cervical spine wo IV con ?? Accession Number(s): [id number] ? cc: Faith Mason MD; Tarun Johnson [...] DD/ 1104 ? TD/TT: 04/25/24 1156 ? Electrical Subcontractor: ALEX ? Procedure Note Donotuseinterpreter, Image - 04/25/[address] [address] [address] Scan Report Signed Patient: Sarah Dixon#: [id number] : 1965Acct:[id number] Age/Sex: 59 / FADM Date: 04/25/24 Loc: HO.ED Attending Dr: Ordering Physician: Tarun Johnson MD Date of Service: 04/25/24 Procedure(s): CT cervical spine wo IV con Accession Number(s): [id number] cc: Faith Mason MD; Tarun Johnson MD [...] by: Tomi Lerma DO 04/25/2024 02:00 PM [facility] Dictated By: Tomás eLrma DO Signed By: <Electronically signed by Tomás Lerma DO in OV> 04/25/24 1400 DD/ 1104 TD/TT: 04/25/24 1156 Electrical Subcontractor: ALEX [employer] External Provider IMG CT PROCEDURES Final Result * (ABNORMAL) POCT HGB A1C (03/17/2024 3:42 PM EDT) Hemoglobin A1C 7.8(A) 4.0 - 6.0 % QC Media Lot # [id number] Lot# Expiration Date Blood 03/17/2024 3:42 PM EDT Faith No MD POINT OF CARE TEST EN TER/EDIT ORDERABLES Final Result * Hepatitis Panel, General (01/26/2024 2:16 PM EDT) Hepatitis A IgM REACTIVE (Abnormal) Nonreactive [facility] Comment:For additional infor page, please refer tohttp://YuuConnect/faq/KRR741(This link is being provided for informational/educational purposes only.)THIS TEST PERFORMED AT:[facility] [address] [phone] DIRECTOR: EVITA ALICEA MD ~Hepatitis B Surface Antibody REACTIVE (Abnormal) Nonreactive [facility] Comment:THIS TEST PERFORMED AT:[facility] [address] [phone] DIRECTOR: EVITA ALICEA MD Hepatitis B Core Antibody NON-REACTI VE Nonreactive [facility] Comment:For additional infor page, please refer tohttp://YuuConnect/faq/ALK912(This link is being provided for informational/educational purposes only.)THIS TEST PERFORMED AT:[facility] [address] [phone] DIRECTOR: EVITA ALICEA MD Hepatitis C Antibody NON-REACTI VE Nonreactive [facility] Comment:HCV antibody was non -reactive. There is no laboratoryevidence of HCV infection.In most cases, no further action is required. However,if recent HCV exposure is suspected, a test for HCV RNA(test code 02035) is suggested.For additional information please refer tohttp://[employer]/faq/HKC95h2(This link is being provided for informational/educational purposes only.)THIS TEST PERFORMED AT:[facility] [address] [phone] DIRECTOR: EVITA ALICEA MD Hepatitis B Surface Ag NON-REACTI VE Negative [facility] Comment:For additional infor page, please refer tohttp://YuuConnect/faq/MOF787(This link is being provided for informational/educational purposes only.)THIS TEST PERFORMED AT:[facility] [address] [phone] DIRECTOR: EVITA ALICEA MD Blood 01/26/2024 2:16 PM EDT 01/26/2024 4:08 PM EDT Faith No MD LAB BLOOD ORDERABLES Final Result [facility] [address] [place] [address] [phone] * HIV-1/2 Antigen and Antibodies, Fourth Generation, with Reflexes (01/26/2024 2:16 PM EDT) HIV AB/AG NON-REAC TIVE Nonreactive [facility] Comment:HIV-1 antigen and HI V-1/HIV-2 [...] for this purpose.For additional information please refer tohttp://education.[employer]/faq/PNM663(This link is being provided for informational/educational purposes only.)The performance of this assay has not been clinicallyvalidated in patients less than 2 years old.THIS TEST PERFORMED AT:[facility] [address] [phone] DIRECTOR: EVITA ALICEA MD Blood Venous blood specimen / Unknown 01/26/2024 2:16 PM EDT 01/26/2024 4:08 PM EDT us Faith No MD LAB BLOOD ORDERABLES Final Result Performing Organization Address [facility]/ZIP Co de Phone Number [facility] [address] [place] [address] [phone] * (ABNORMAL) Lipid Panel with Reflex to Direct LDL (12/01/2023 1:06 PM EDT) Triglycerides 81 <150 mg/dL [facility] Comment:Desirable Triglyceri de: less than 150 mg/dLBorderline High Triglyceride 150-199 mg/dLHigh Triglyceride: 200-499 mg/dLVery High Triglyceride: greater than or equal to 5OO mg/dL Cholesterol 77 <200 mg/dL [facility] Comment:Desirable Cholestero l: less than 200 mg/dLBorderline High Cholesterol: 200-239 mg/dLHigh Cholesterol: greater than 239 mg/dL LDL Cholesterol Calculated 30 <100 mg/dL [facility] Comment:Desirable LDL: less than 100 mg/dLNear Optimal/Above Optimal LDL: 110- 129 mg/dLBorderline High LDL: 130-159 mg/dLHigh LDL: 160-189 mg/dLVery High LDL: greater than or equal to 190 mg/dL HDL Cholesterol 31(L) >40 mg/dL [facility] Comment:Desirable HDL: great er than 40 mg/dL Note: This HDL assay may give artificially low results in patients with liver disease. Blood 12/01/2023 1:06 PM EDT 12/01/2023 1:11 PM EDT us Faith No MD LAB BLOOD ORDERABLES Final Result Performing Organization Address City/[facility]/ZIP Co de Phone Number [facility] [address] [place] [address] [phone] * HPV mRNA E6/E7 w/Reflex to HPV Genotypes 16, 18/45 (10/13/2023 10:05 AM EDT) HPV nRNA E6/E7 Not Detected Not Detected [facility] Comment:Methodology: Transcr iption-Mediated AmplificationThis assay detects E6/E7 viral messenger RNA (mRNA) from 14high-risk HPV types (16,18,31,33,35,39,45,51,52,56,58,59,66,68).Cervical sources are required for HPV testing.If a vaginal source from a patient who has had atotal hysterectomy with removal of cervix wassubmitted, please contact the testing laboratoryfor alternative testing options.For additional information, please refer tohttp://education.[employer]/faq/LOM316n7(This link if provided for information/educational purposes only.)THIS TEST WAS PERFORMED AT:[facility] [place] [id number] ALICEA MD HPV mRNA E6/E7 [facility] HPV 16 RNA [facility] HPV 18/45 RNA [facility] 10/13/2023 10:0 5 AM EDT 10/14/2023 11:40 AM EDT us Ofelia Haskins [facility] LAB CYTOLOGY ORDERABLES F inal Result [facility] [address] [place] [address] [phone] * Pap Smear (10/13/2023 10:05 AM EDT) Swab Cervix uteri structure / Unknown 10/13/2023 10:05 AM EDT 10/14/2023 11:40 AM EDT Narrative [facility] - 11/02/2023 10:48 AM EDT ----- ------- Name: Sarah Dixon ? Age/Sex: 58/F ? : 1965 Unit#: [id number] ?? Attend Dr: OFELIA HASKINS CNM ?Re10/13/23 ?Status: DEP REF ? Location: HO.HHCLNP ? Disch: ? ----- ------- SPEC : [id number] ? RECD: 10/14/23-1140 ? STATUS: ??SOUT ? REQ NUM: [id number] ? NADJA: 10/13/23-1005 ? SUBM DR: OFELIA HASKINS CNM ? ENTERED: ??10/14/23-5547 ?SP TYPE: Pap Smr ?OTHR DR: ? [...] 66, 68) ? HPV testing performed by [facility], [place], [place]. ??See reference laboratory ?? portion of the EMR for entire report. ?Clinical Information LMP:Post menopausal Previous PAP test:Unk ? Material Received ?? ThinPrep-Cervical ----- ------- Signed (signature on file) Debo A Robbie 11/02/23 1048 ? ----- ------- ? END OF REPORT ? us Ofelia Haskins [facility] LAB CYTOLOGY ORDERABLES F inal Result [facility] [address] [place] [address] [phone] * Cologuard?? colon cancer screening (09/17/2023 12:00 PM EDT) Cologuard Result Negative Negative 09/25/19 10:09 AM EDT [facility] (CLIA #:[id number]) Comment: NEGATIVE TEST RESULT. A negative Cologuard [...] screened with both Cologuard and colonoscopy. (Kacey Manning et al, N Engl J Med 2014;370(14):1286- 1297) The normal value (reference range) for this assay is negative. COLOGUARD RE-SCREENING RECOMMENDATION: Periodic colorectal cancer screening is an important part of preventive healthcare for asymptomatic individuals at average risk for colorectal cancer. ??Following a negative Cologuard result, the [place] [employer] Society and U.S. Multi-Society Task Force screening guidelines recommend a Cologuard re-screening interval of 3 years. References: [place] [employer] Guideline for Colorectal Cancer Screening: https://www.cancer.org/cancer/ftigr-fwauma-hujkxs/eggqscuzy-zcnykjurq-ngktwtr/ac s-rec ommendations.html.; Maxi MACIAS, Robinson CR, Barry TateK, Colorectal Cancer Screening: Recommendations for Physicians and Patients from the U.S. Multi-Society Task Force on Colorectal Cancer Screening , Am J Gastroenterology 2017; 112:8248-3541. TEST DESCRIPTION: Composite algorithmic analysis of stool [...] Horne. et al, N Engl J Med 2014;370(14):6328-1189.) Cologuard may produce a false negative or false positive result (no colorectal cancer or precancerous polyp present at colonoscopy follow up). A negative Cologuard test result does not guarantee the absence of CRC or advanced adenoma (pre-cancer). The current Cologuard screening interval is every 3 years. ([place] [employer] Society and U.S. Multi-Society Task Force). Cologuard performance data in a 10,000 patient pivotal study using colonoscopy as the reference method can be accessed at the following location: www.[employer]/results. Additional description of the Cologuard test process, warnings and precautions can be found at www.cologuard.com. Stool specimen (specimen) 09/17/2023 12:00 PM EDT 09/18/2023 10:51 AM EDT us Faith No MD LAB MOLECULAR DIAGNOS TICS ORDERABLES Final Result [facility] (CLIA #:[id number]) [place] [address], * BI Mammogram Screening Tomosynthesis Bilateral (07/16/2023 11:25 AM EST) Anatomical Region Laterality Modality Breast Bilateral Mammography 07/16/2023 11:2 5 AM EST Narrative 08/08/2023 10:45 PM EDT ? [facility] ? [address] ?[place] [address] ? Mammography Report ? Signed ? Patient: Madden Colon,Sarah ?MR#: [id number] ?? [id number] ? : 1965 ?Acct:[id number] ? Age/Sex: 58 / F ?ADM Date: 07/16/23 ? Loc: HO.MAMMO ? Attending Dr: Faith No MD ? Ordering Physician: Faith Mason MD ?Results: ?? 1Negative ? Date of Service: 07/16/23 ?Follow Up: 1 Year From Orig ?? inal Mammogram ? Procedure(s): MM tomosynthesis screening BI ?? Accession Number(s): [id number] ? cc: Faith Mason MD ? EXAMINATION: [...] 08/08/232241 ? DD/ 1125 ? TD/TT: ? Electrical Subcontractor: ? Procedure Note Donkathi, Image - 08/08/2023 [facility] [address] [place], [place] [address] Mammography Report Signed Patient: Sarah Dixon#: [id number] : 1965Acct:[id number] Age/Sex: 58 / FADM Date: 07/16/23 Loc: HO.MAMMO Attending Dr: Faith No MD Ordering Physician: Faith Mason MDResults: 1Negative Date of Service: 07/16/23Follow Up: 1 Year From Orig inal Mammogram Procedure(s): MM tomosynthesis screening BI Accession Number(s): [id number] cc: Faith Mason MD EXAMINATION: MM SCREENING [...] in OV> 08/08/23 2242 DD/ 1125 TD/TT: Electrical Subcontractor: us Faith No MD IMG BI PROCEDURES [...] [facility] 07/23/2020 9:00 AM EST us Historical Provider HISTORICAL/NON ORDERABLE LABS Final Result [facility] [address] from Last 3 Months or Most Recently Relevant to Health Maintenance [facility] Ref[facility] AD[place] Care Teams Special Education Case Manager Relationship Specialty Start Date End Date Faith Mason MD [address] [place] [phone] PCP - General Family Medicine 04/12/19 Linda Peralta Director Utilization ManagementLay Out Technician 06/08/24
--- OUTSIDE RECORDS SUMMARY | 2024-07-19 17:34 | XMS_ITS | Encounter Summary ---
Author Organization [employer] Address [address] [place] [address] 7[address] [place] [address] Care Team Providers Care Human Relations Manager Name Role Phone Faith Mason MD Primary Care Provide r Reason for Visit * Reason Comments Med Refill Encounter Details Date Type Department Care Team (Late st Contact Info) Description 06/24/2023 Refill [facility] [address] [place], [place] [phone] Faith Mason MD [address] [place], [place] [phone] Social History Tobacco Use Types Packs/Day Years [...] Description 07/29/2024 2:15 PM EST Office Visit [facility] [address] [place] [phone] Kay Mackay MD [address] [place] [address] 08/23/2024 2:00 PM EDT Office Visit [facility] [address] [place] [phone] Faith Mason MD [address] [place] [address] 09/20/2024 3:00 PM EDT Office Visit [facility] [address] [place] [phone] Shiva, Karen [address] [place] [address] documented as of this encounter Visit Diagnoses Not on filedocumented in this encounter Additional Health Concerns Assessment Noted Time PHQ-9 Depression Total Score: 14 023 2:21 PM EDT documented as of this encounter Care Teams Human Relations Manager Relationship Specialty Start Date End Date Faith Mason MD [address] [place] [phone] PCP - General Family Medicine 04/12/19 Linda Peralta Supervisor Facepiece LineUniversity Archivist 06/08/24 documented as of this encounter
--- OUTSIDE RECORDS SUMMARY | 2024-07-19 17:34 | XMS_ITS | Encounter Summary ---
Author Organization [facility] Address [address] [place] [phone] Phone Care Team Providers Care Mining Machinery Assembler Name Role Phone Ines Zamora MD Primary Care Provider Encounter Details Date Type Department Care Team (Late st Contact Info) Description 07/13/2024 Orders Only [facility] [address] [phone] Jeffy Tineo MD [address] [address] Social History Tobacco Use Types [...] Priority Date/Time Associated Diagnosis Comments HEMOGLOBIN Routine 07/18/2024 3:00 AM EST HEMOGLOBIN AND HEMATOCRIT, BLOOD Routine 07/13/2024 3:00 AM EST documented in this encounter Results * (ABNORMAL) Hemoglobin (07/18/2024 3:00 AM EST) Hgb 9.8(L) 11.2 - 15.7 g/dL [facility] Hemoglobin x 3 29.4(L) 33.6 - 47.1 g/dL [facility] 07/18/2024 3:00 AM EST 07/19/2024 12:28 PM EST Jeffy Tineo MD LAB BLOOD ORDERABLES Final Re sult Performing Organization Address City/[facility] Co de Phone Number [facility] [address] [place] [address] * (ABNORMAL) Hemoglobin and hematocrit (07/13/2024 3:00 AM EST) Hgb 9.6(L) 11.2 - 15.7 g/dL [facility] Hematocrit 29.8(L) 34.1 - 44.9 % [facility] Hemoglobin x 3 28.8(L) 33.6 - 47.1 g/dL [facility] 07/13/2024 3:00 AM EST 07/15/2024 12:51 PM EST Jeffy Tineo MD LAB BLOOD ORDERABLES Final Re sult Performing Organization Address City/[facility] Co de Phone Number [facility] [address] [place] [address] documented in this encounter Visit Diagnoses Not on filedocumented in this encounter Care Teams Mining Machinery Assembler Relationship Specialty Start Date End Date Ines Zamora MD [address] [place] [phone] PCP - General 06/04/20 documented as of this encounter
--- OUTSIDE RECORDS SUMMARY | 2024-07-19 17:34 | XMS_ITS | Encounter Summary ---
Author Organization [facility] Address [address] [place] [phone] Phone Care Team Providers Care Feeder Catcher Name Role Phone Ines Zamora MD Primary Care Provider Encounter Details Date Type Department Care Team (Late st Contact Info) Description 06/22/2024 Treatment [facility] [address] [phone] Sweetie Pandey MD [facility] [address] Social History Tobacco Use Types [...] care for end stage renal disease. Attending Head Transfer Clerk: SWEETIE PANDEY Dialysis Location: [facility] [...] on filedocumented in this encounter Care Teams Feeder Catcher Relationship Specialty Start Date End Date Ines Zamora MD [address] [place] [phone] PCP - General 06/04/20 documented as of this encounter
--- OUTSIDE RECORDS SUMMARY | 2024-07-19 17:34 | XMS_ITS | Encounter Summary ---
Author Organization [employer] Address [address] [place] [address] 7[address] [place] [address] Care Team Providers Care Windows Server Engineer Name Role Phone Faith Mason MD [...] Description 07/29/2024 2:15 PM EST Office Visit [facility] [address] [place] [address] Kay Mackay MD [address] [place] [address] 08/23/2024 2:00 PM EDT Office Visit [facility] [address] [place] [address] Faith Mason MD [address] [place] [address] 09/20/2024 3:00 PM EDT Office Visit [facility] ADULT D[facility] [address] [place] [address] Karen Shannon [address] [place] [address] documented as of this encounter Procedures Procedure Name Priority Date/Time Associated Diagnosis Comments GLUCOSE, WHOLE BLOOD Routine 07/05/2024 2:43 PM EST documented in this encounter Results * (ABNORMAL) Glucose, Whole Blood (07/05/2024 2:43 PM EST) Glucose, Whole Blood 361(HH) 60 - 115 mg/dL [facility] Comment:METER #: [id number] Testing performed in the Endocrinology Department [address] , [address], [place]. 07/05/2024 2:43 PM EST 07/05/2024 2:49 PM EST us Generic External Data Provider LAB BLOOD ORDERAB LES Final Result Performing Organization Address City/State/[facility] Co de Phone Number [facility] [address] [place] [address] [phone] documented in this encounter Visit Diagnoses Not on filedocumented in this encounter Additional Health Concerns Assessment Noted Time PHQ-9 Depression Total Score: 6 11/24/19 24 2:35 PM EDT documented as of this encounter Care Teams Windows Server Engineer Relationship Specialty Start Date End Date Faith Mason MD [address] [place] [address] PCP - General Family Medicine 04/12/19 Linda Peralta Sole Layer HandPediatric Audiologist 06/08/24 documented as of this encounter
--- OUTSIDE RECORDS SUMMARY | 2024-07-19 17:34 | XMS_ITS | Clinical Summary ---
Author Organization [facility] Address [address] [phone] Phone Care Team Providers Care Still Cleaner Tube Name Role Phone Ines Zamora MD Primary Care Provider [phone] Medications lisinopril 10 MG tabletIndicatio ns:Stage 3 [...] Orders Only [facility] [address] [address] Jeffy Tineo MD 07/06/2024 Treatment [facility] [address] [address] Jeffy Tineo MD 07/04/2024 Treatment [facility] [address] [address] Jeffy Tineo MD 06/24/2024 Treatment [facility] [address] [address] Jeffy Tineo MD 06/22/2024 Treatment [facility] [address] [address] Jeffy Tineo MD 06/17/2024 Treatment [facility] [address] [address] Jeffy Tineo MD 05/27/2024 Treatment [facility] [address] [address] Jeffy Tineo MD 05/24/2024 Treatment [facility] [address] [address] Jeffy Tineo MD 05/09/2024 Treatment [facility] [address] [address] Jeffy Tineo MD 04/19/2024 Treatment [facility] [address] [address] Jeffy Tineo MD from Last 3 Months [...] PANEL Routine 04/26/2024 1:4 0 AM EST from Last 3 Months Results * (ABNORMAL) Hemoglobin (07/18/2024 3:00 AM EST) Only the most recent of2 resultswithin the time period is included. Hgb 9.8(L) 11.2 - 15.7 g/dL [facility] Hemoglobin x 3 29.4(L) 33.6 - 47.1 g/dL [facility] 07/18/2024 3:00 AM EST 07/19/2024 12:28 PM EST us Jeffy Tineo MD LAB BLOOD ORDERABLES Final Re sult [facility] [address] [place] [address] * (ABNORMAL) Hemoglobin and hematocrit (07/13/2024 3:00 AM EST) Only the most recent of7 resultswithin the time period is included. Pathologist [facility] Hgb 9.6(L) 11.2 - 15.7 g/dL [facility] Hematocrit 29.8(L) 34.1 - 44.9 % [facility] Hemoglobin x 3 28.8(L) 33.6 - 47.1 g/dL [facility] 07/13/2024 3:00 AM EST 07/15/2024 12:51 PM EST us Jeffy Tineo MD LAB BLOOD ORDERABLES Final Re sult [facility] [address] [place] [address] * LIH (06/29/2024 3:00 AM EST) Only the most recent of5 resultswithin the time period is included. [facility] Lipemia Normal Normal [facility] Icterus Normal Normal [facility] Hemolysis Normal Normal [facility] 06/29/2024 3:00 AM EST 06/30/2024 12:39 PM EST us Jeffy Tineo MD LAB [id number] SOLICITED RESULTS Final Result Performing Organization Address City/[facility]/ZIP Co de Phone Number [facility] [address] [place] [address] * (ABNORMAL) Kt/V Natural Log, URR (06/29/2024 [...] 12:39 PM EST Jeffy Tineo MD LAB [id number] SOLICITED RESULTS Final Result Performing Organization Address [facility] de Phone Number [facility] [address] [place] [address] * (ABNORMAL) Calcium Phosphorus Product, Adjusted (06/29/2024 [...] 12:39 PM EST Jeffy Tineo MD LAB [id number] SOLICITED RESULTS Final Result Performing Organization Address [facility] de Phone Number [facility] [address] [place] [address] * (ABNORMAL) TSAT (06/29/2024 3:00 AM EST) Only the most recent of3 resultswithin the time period is included. Iron 70 50 - 170 ug/dL [facility] Transferrin 184(L) 250 - 380 mg/dL [facility] TIBC 258 211 - 406 ug/dL [facility] Iron Saturation (TSat) 27 22 - 52 % [facility] 06/29/2024 3:00 AM EST 06/30/2024 12:39 PM EST Jeffy Tineo MD LAB BLOOD ORDERABLES Final Re sult Performing Organization Address City/[facility]/ZIP Co de Phone Number [facility] [address] [place] [address] * (ABNORMAL) CBC and Differential (06/29/2024 3:00 AM EST) Only the most recent of3 resultswithin the time period is included. DIFFERENTIAL MANUAL, 2 Not Indicated [facility] White [...] ORDERABLES Final Re sult Performing Organization Address City/[facility] Co de Phone Number [facility] [address] [place] [address] * ALT (06/29/2024 3:00 AM EST) Only the most recent of3 resultswithin the time period is included. ALT (SGPT) 13 10 - 49 U/L [facility] 06/29/2024 3:00 AM EST 06/30/2024 12:39 PM EST Jeffy Tineo MD LAB BLOOD ORDERABLES Final Re sult Performing Organization Address City/[facility] Co de Phone Number [facility] [address] [place] [address] * AST (06/29/2024 3:00 AM EST) Only the most recent of3 resultswithin the time period is included. AST (SGOT) 14 <34 U/L [facility] 06/29/2024 3:00 AM EST 06/30/2024 12:39 PM EST Jeffy Tineo MD LAB BLOOD ORDERABLES Final Re sult Performing Organization Address [facility] de Phone Number [facility] [address] [place] [address] * Protein, total (06/29/2024 3:00 AM EST) Only the most recent of3 resultswithin the time period is included. Total Protein 7.3 6.4 - 8.9 g/dL [facility] 06/29/2024 3:00 AM EST 06/30/2024 12:39 PM EST Jeffy Tineo MD LAB BLOOD ORDERABLES Final Re sult Performing Organization Address [facility] de Phone Number [facility] [address] [place] [address] * Alkaline phosphatase (06/29/2024 3:00 AM EST) Only the most recent of3 resultswithin the time period is included. Alkaline Phosphatase 98 46 - 116 U/L [facility] 06/29/2024 3:00 AM EST 06/30/2024 12:39 PM EST Jeffy Tineo MD LAB BLOOD ORDERABLES Final Re sult Performing Organization Address [facility] de Phone Number [facility] [address] [place] [address] * PTH, Intact (06/29/2024 3:00 AM EST) [...] ORDERABLES Final Re sult Performing Organization Address [facility] de Phone Number [facility] [address] [place] [address] * Magnesium (06/29/2024 3:00 AM EST) Only the most recent of3 resultswithin the time period is included. Magnesium 2.2 1.9 - 2.7 mg/dL [facility] 06/29/2024 3:00 AM EST 06/30/2024 12:39 PM EST Jeffy Tineo MD LAB BLOOD ORDERABLES Final Re sult Performing Organization Address [facility] de Phone Number [facility] [address] [place] [address] * (ABNORMAL) Lactate dehydrogenase (06/29/2024 3:00 AM EST) Only the most recent of3 resultswithin the time period is included. LDH 300(H) 120 - 246 U/L [facility] 06/29/2024 3:00 AM EST 06/30/2024 12:39 PM EST Jeffy Tineo MD LAB BLOOD ORDERABLES Final Re sult Performing Organization Address [facility] de Phone Number [facility] [address] [place] [address] * (ABNORMAL) Glucose, random (06/29/2024 3:00 AM EST) Only the most recent of3 resultswithin the time period is included. Glucose 278(H) 74 - 109 mg/dL [facility] 06/29/2024 3:00 AM EST 06/30/2024 12:39 PM EST Jeffy Tineo MD LAB BLOOD ORDERABLES Final Re sult Performing Organization Address [facility] de Phone Number [facility] [address] [place] [address] * (ABNORMAL) Ferritin (06/29/2024 3:00 AM EST) Only the most recent of2 resultswithin the time period is included. Ferritin 1,647(H) 10 - 291 ng/mL [facility] 06/29/2024 3:00 AM EST 06/30/2024 12:39 PM EST Jeffy Tineo MD LAB BLOOD ORDERABLES Final Re sult Performing Organization Address [facility] de Phone Number [facility] [address] [place] [address] * (ABNORMAL) Creatinine, serum (06/29/2024 3:00 AM EST) Only the most recent of3 resultswithin the time period is included. Creatinine 7.22(H) 0.55 - 1.02 mg/dL [facility] 06/29/2024 3:00 AM EST 06/30/2024 12:39 PM EST Jeffy Tineo MD LAB BLOOD ORDERABLES Final Re sult Performing Organization Address [facility] Co de Phone Number [facility] [address] [place] [address] * Bilirubin, total (06/29/2024 3:00 AM EST) Only the most recent of3 resultswithin the time period is included. Total Bilirubin 0.4 0.3 - 1.2 mg/dL [facility] 06/29/2024 3:00 AM EST 06/30/2024 12:39 PM EST us Jeffy Tineo MD LAB BLOOD ORDERABLES Final Re sult Performing Organization Address [facility] de Phone Number [facility] [address] [place] [address] * (ABNORMAL) Electrolyte panel (06/29/2024 3:00 AM [...] ORDERABLES Final Re sult Performing Organization Address [facility] de Phone Number [facility] [address] [place] [address] * Collection Date (06/24/2024 3:00 AM EST) Collection Date See Comment [facility] Comment: Patient sample received may exceed specimen stability, based on the collection date electronically provided. ??When reviewing patient results, verify collection information and consider specimen stability before acting on any critical or panic results. 06/24/2024 3:00 AM EST us Jeffy Tineo MD LAB [id number] SOLICITED RESULTS Final Result Performing Organization Address [facility] Co de Phone Number [facility] [address] [place] [address] * Calcium, Adjusted w Albumin (06/17/2024 3:00 AM EST) Calcium 10.0 8.6 - 10.3 mg/dL [facility] Albumin 4.2 3.6 - 5.4 g/dL [facility] Calcium, Adjusted Total 10.0 8.6 - 10.3 mg/dL [facility] 06/17/2024 3:00 AM EST 06/18/2024 2:10 PM EST us Jeffy Tineo MD LAB BLOOD ORDERABLES Final Re sult Performing Organization Address City/[facility] Co de Phone Number [facility] [address] [address] * Confirmation Test HCV (06/01/2024 3:00 AM EST) Pathologist [facility] Hep C Ab Confirmation Not needed [facility] 06/01/2024 3:00 AM EST 06/02/2024 1:33 PM EST us Jeffy Tineo MD LAB BLOOD ORDERABLES Final Re sult Performing Organization Address [facility] Co de Phone Number [address] [address] * HEPATITIS C ABS W/REFLEX RNA DETECTR (06/01/2024 3:00 AM EST) Pathologist [facility] Hep C Virus Ab Non-Reacti ve Non-Reacti ve [facility] 06/01/2024 3:00 AM EST 06/02/2024 2:21 PM EST us Jeffy Tineo MD LAB [id number] SOLICITED RESULTS Final Result Performing Organization Address [facility] Co de Phone Number [address] [address] * Aluminum level (06/01/2024 3:00 AM EST) Pathologist [facility] Aluminum 4 1 - 20 ug/L [facility] 06/01/2024 3:00 AM EST 06/02/2024 2:46 PM EST Jeffy Tineo MD LAB BLOOD ORDERABLES Final Re sult Performing Organization Address [facility] de Phone Number [facility] [address] [place] [address] * Vitamin D 25 Hydroxy (06/01/2024 3:00 AM EST) Vitamin D, 25-Hydroxy 48 30 - 100 ng/mL [facility] Comment: Status ? Adult ?? Pediatric Deficient: ? <20 ? <15 Insufficient: ??20-29 ?? 15-19 Sufficient: ?30-100 ??20-100 06/01/2024 3:00 AM EST 06/02/2024 2:21 PM EST Jeffy Tineo MD LAB BLOOD ORDERABLES Final Re sult Performing Organization Address [facility] de Phone Number [facility] [address] [place] [address] * Hepatitis B Surface Antibody (06/01/2024 3:00 AM EST) Only the most recent of2 resultswithin the time period is included. Hep B Surface Antibody 19 mIU/mL [facility] Comment: Interpretation: <10: No Immunity >=10: Probable Immunity 06/01/2024 3:00 AM EST 06/02/2024 2:21 PM EST Jeffy Tineo MD LAB BLOOD ORDERABLES Final Re sult Performing Organization Address [facility] de Phone Number [facility] [address] [place] [address] * Uric Acid (06/01/2024 3:00 AM EST) Uric Acid 6.0 2.3 - 6.6 mg/dL [facility] 06/01/2024 3:00 AM EST 06/02/2024 2:21 PM EST Jeffy Tineo MD LAB BLOOD ORDERABLES Final Re sult Performing Organization Address [facility] de Phone Number [facility] [address] [place] [address] * (ABNORMAL) Hemoglobin A1c (06/01/2024 3:00 AM [...] ORDERABLES Final Re sult Performing Organization Address [facility] de Phone Number [facility] [address] [place] [address] * (ABNORMAL) Lipid panel (06/01/2024 3:00 AM [...] Re sult Performing Organization Address [facility] de Phone Number [facility] [address] [place] [address] * Potassium (05/13/2024 3:00 AM EST) Potassium 4.6 3.4 - 5.0 mEq/L [facility] 05/13/2024 3:00 AM EST 05/14/2024 2:41 PM EST Jeffy Tineo MD LAB BLOOD ORDERABLES Final Re sult Performing Organization Address [facility] de Phone Number [facility] [address] [place] [address] * (ABNORMAL) Phosphorus (05/13/2024 3:00 AM EST) Phosphorus, Serum 5.8(H) 2.5 - 5.0 mg/dL [facility] 05/13/2024 3:00 AM EST 05/14/2024 2:41 PM EST Jeffy Tineo MD LAB BLOOD ORDERABLES Final Re sult [facility] [address] [place] [address] from Last 3 Months Insurance [place] Care Teams Still Cleaner Tube Relationship Specialty Start Date End Date Ines Zamora MD [address] [place] [phone] PCP - General 06/04/20
--- OUTSIDE RECORDS SUMMARY | 2024-07-19 17:34 | XMS_ITS | Encounter Summary ---
Author Organization [employer] Address [address] [place] [address] 7t [place] [address] Care Team Providers Care Recreation Officer Name Role Phone Faith Mason MD Primary Care Provide r Reason for Visit * Reason Comments Med Change Request Encounter Details Date Type Department Care Team (Late Contact Info) Description 11/28/2022 Refill [facility] MEDICINE [address] [place], [place] [phone] Faith Mason MD 230 [place] [address] Type 2 diabetes mellitus with hyperglycemia, with long-term current use of insulin ([facility]) Social History Tobacco Use Types [...] Description 07/29/2024 2:15 PM EST Office Visit [facility] MED[facility]INE [address] [place] [address] Kay Mackay MD 230 [place] [address] 08/23/2024 2:00 PM EDT Office Visit [facility] MEDICINE [address] [place] [address] Faith Mason MD 230 [place], [place] [phone] 09/20/2024 3:00 PM EDT Office Visit [facility] ADULT DENTAL [address] [place], [place] [phone] Jacob Shannonaris [address] [place], [place] [phone] documented as of this encounter Visit Diagnoses Diagnosis Type 2 diabetes mellitus with hyperglycemia, with long-term current use of insulin ([facility]) documented in this encounter Additional Health Concerns Assessment Noted Time PHQ-9 Depression Total Score: 14 023 2:21 PM EDT documented as of this encounter Care Teams Recreation Officer Relationship Specialty Start Date End Date Faith Mason MD [address] [place] [address] [phone] PCP - General Family Medicine 04/12/19 Linda Peralta Etl LeadWafer Production Lead Worker 06/08/24 documented as of this encounter
--- OUTSIDE RECORDS SUMMARY | 2024-07-19 17:34 | XMS_ITS | Encounter Summary ---
Author Organization [employer] Address [address] [facility] 7t [place] [address] Care Team Providers Care Carbon Grinder Name Role Phone Faith Mason MD Primary Care Provide r Reason for Visit * Reason Comments Med Refill Encounter Details Date Type Department Care Team (Late st Contact Info) Description 08/11/2023 Refill [facility] MEDICINE 230 [place], [place] [phone] Faith Mason MD 230 [place], [place] [phone] Social History Tobacco Use Types Packs/Day Years [...] Visit [facility] MEDICINE [address] [place] [address] Kay Mackay MD [address] [place] [address] 08/23/2024 2:00 PM EDT Office Visit [facility] MEDICINE [address] [place] [address] Faith Mason MD [address] [place] [address] 09/20/2024 3:00 PM EDT Office Visit [facility] ADULT DENTAL [address] [place] [address] Shiva, Karen 230 [place] [address] documented as of this encounter Visit Diagnoses Not on filedocumented in this encounter Additional Health Concerns Assessment Noted Time PHQ-9 Depression Total Score: 14 023 2:21 PM EDT documented as of this encounter Care Teams Carbon Grinder Relationship Specialty Start Date End Date Faith Mason MD [address] [place] [phone] PCP - General Family Medicine 04/12/19 Linda Peralta Stone RiggerAssembler Brazer 06/08/24 documented as of this encounter
== END 2024-07-19 14:42 | disposition home or self-care (01) ==
PROVIDERS: PCP Internal Medicine; Visit Provider Nurse Practitioner Adult Health
DX: E11.22 Type 2 diabetes mellitus with diabetic chronic kidney disease (principal); N18.6 End stage renal disease
CPT/HCPCS: 99214

== ENCOUNTER → 2024-07-19 14:01 | Outpatient (BNVA) | payer MEDICAID, SELFPAY | PROVIDERS: PCP Internal Medicine; Visit Provider Nurse Practitioner Adult Health | DX: E11.22 Type 2 diabetes mellitus with diabetic chronic kidney disease (principal); N18.6 End stage renal disease | CPT/HCPCS: 82947; 99212 ==

== ENCOUNTER 2024-07-27 08:32 | Outpatient (REF) | payer MEDICAID, SELFPAY ==
--- OUTSIDE RECORDS SUMMARY | 2024-07-27 09:07 | XMS_ITS | Encounter Summary ---
Author Organization [employer] Address [address] [place] [address] 7t [place] [address] Care Team Providers Care Atomic Physics Teacher Name Role Phone Faith Mason MD Primary Care Provide r Reason for Visit * Reason Comments Med Refill Encounter Details Date Type Department Care Team (Late st Contact Info) Description 07/18/2024 Refill [facility] MEDICINE 230 [place], [place] [phone] Faith Mason MD 230 [place], [place] [phone] Other constipation Social History Tobacco Use Types [...] Description 07/29/2024 2:15 PM EST Office Visit [facility] MEDICINE [address] [place] [phone] Kay Mackay MD [address] [place] [address] 08/23/2024 2:00 PM EDT Office Visit [facility] MEDICINE [address] [place] [phone] Faith Mason MD 230 [place] [address] 09/20/2024 3:00 PM EDT Office Visit [facility] ADULT DENTAL [address] [place] [address] Karen Shannon 230 [place] [address] documented as of this encounter Visit Diagnoses Diagnosis Other constipation documented in this encounter Additional Health Concerns Assessment Noted Time PHQ-9 Depression Total Score: 6 11/24/19 24 2:35 PM EDT documented as of this encounter Care Teams Atomic Physics Teacher Relationship Specialty Start Date End Date Faith Mason MD 230 [place] [address] PCP - General Family Medicine 04/12/19 Linda Peralta Pet Adoption CounselorDry Cans Operator 06/08/24 documented as of this encounter
--- OUTSIDE RECORDS SUMMARY | 2024-07-27 09:07 | XMS_ITS | Encounter Summary ---
Author Organization [facility] Address [address] [place] [phone] Phone Care Team Providers Care Deputy Attorney General Name Role Phone Ines Zamora MD Primary Care Provider Encounter Details Date Type Department Care Team (Late st Contact Info) Description 07/22/2024 Treatment [facility] [address] [phone] Sweetie Pandey MD [facility] [address] End stage renal disease; Dependence on renal dialysis Social History Tobacco Use Types Packs/Day Years [...] Dialysis Note - Sweetie Pandey MD - 07/22/2024 12:00 AM EST Patient: Sarah Corado : 1965 Note Type: Dialysis Rounds-Basic Telehealth Service Date: 07/22/2024 Telehealth encounter using audiovisual technology, performed according to state requirements. Appropriate patient consent obtained. This patient was personally seen for a basic visit as part of routine monthly dialysis care for end stage renal disease. Attending Cork Slabs Sawyer: SWEETIE PANDEY MD Dialysis Location: [facility] Schedule: M-W-F Shift: 2 ADEQUACY ASSESSMENT Kt/V, Natural Log [...] 134 (06/01/24) 134 (05/04/24) ANEMIA ASSESSMENT Hgb 10.2 (07/20/24) 9.8 (07/18/24) 9.6 (07/13/24) Iron Saturation (TSat) 27 (06/29/24) 42 (06/01/24) [...] COMMENTS: 07/04/24 stable 07/06/24 no new issues 07/22/24 stable 05/24/24 stable 05/27/24 doing ok 06/24/24 stBLE 01/27/24 stable 02/01/24 c/o eye pain after catract surg and has appt 02/0202/08/24 doing better 02/15/24 has appt w optho re L eye 02/29/24 cont eye pain, f/u with optho 03/16/24 eye pain resolved 03/28/24 stable 04/04/24. Has optho surg next week 04/11/24 stable 04/19/24 doing ok Signed by: SWEETIE PANDEY MD on 07/22/2024 at 10:33:39 PM documented in this encounter Plan of Treatment Not on file documented as of this encounter Visit Diagnoses Diagnosis End stage renal disease Dependence on renal dialysis documented in this encounter Care Teams Deputy Attorney General Relationship Specialty Start Date End Date Ines Zamora MD [address] [place] [phone] PCP - General 06/04/20 documented as of this encounter
--- OUTSIDE RECORDS SUMMARY | 2024-07-27 09:07 | XMS_ITS | Encounter Summary ---
Author Organization [facility] Address [address] [place] [phone] Phone Care Team Providers Care Hot Plate Plywood Press Operator Name Role Phone Ines Zamora MD Primary Care Provider Encounter Details Date Type Department Care Team (Late st Contact Info) Description 06/27/2024 Treatment [facility] [address] [phone] Sweetie Pandey MD [facility] [phone] Social History Tobacco Use [...] Dialysis Note - Sweetie Pandey MD - 06/27/2024 12:00 AM EST Patient: Sarah Corado : 1965 Note Type: Dialysis Rounds-Basic Service Date: 06/27/2024 This patient was personally seen for a basic visit as part of routine monthly dialysis care for end stage renal disease. Attending Study Manager: SWEETIE PANDEY MD Dialysis Location: [facility] Schedule: Shift: 2 ADEQUACY [...] (06/01/24) 134 (05/04/24) ANEMIA ASSESSMENT Hgb 9.8 (07/18/24) 9.6 (07/13/24) 10.2 (07/06/24) Iron Saturation (TSat) 27 (06/29/24) 42 (06/01/24) [...] Uric Acid 6.0 (06/01/24) ADDITIONAL COMMENT COMMENTS: 06/27/24 no new issues 07/04/24 stable 07/06/24 no new issues 05/24/24 [...] ok Signed by: SWEETIE PANDEY MD on 07/21/2024 at 03:41:44 AM documented in this encounter Plan of Treatment Not on file documented as of this encounter Visit Diagnoses Not on filedocumented in this encounter Care Teams Hot Plate Plywood Press Operator Relationship Specialty Start Date End Date Ines Zamora MD [address] [place] [address] PCP - General 06/04/20 documented as of this encounter
--- OUTSIDE RECORDS SUMMARY | 2024-07-27 09:07 | XMS_ITS | Encounter Summary ---
Author Organization [employer] Address [address] [facility] 7t [place] [address] Care Team Providers Care Award Machine Operator Name Role Phone Faith Mason MD Primary Care Provide r Encounter Details Date Type Department Care Team ([facility] st Contact Info) Description 03/08/2024 Orders Only [facility] MEDICINE 230 [place], [place] [phone] Faith Mason MD 230 [place] [address] Social History Tobacco Use Types Packs/Day Years [...] PM EST Office Visit [facility] MEDICINE [address] [place] [address] Kay Mackay MD [address] [place] [address] 08/23/2024 2:00 PM EDT Office Visit [facility] MEDICINE [address] [place] [address] Faith Mason MD [address] [place] [address] 09/20/2024 3:00 PM EDT Office Visit [facility] ADULT DENTAL [address] [place] [address] [phone] Karen Shannon 230 [place] [address] documented as of this encounter Visit Diagnoses Not on filedocumented in this encounter Additional Health Concerns Assessment Noted Time PHQ-9 Depression Total Score: 6 11/24/19 24 2:35 PM EDT documented as of this encounter Care Teams Award Machine Operator Relationship Specialty Start Date End Date Fiath Mason MD 230 [place] [address] PCP - General Family Medicine 04/12/19 Linda Peralta Ribbon Lap Machine TenderShoe Worker 06/08/24 documented as of this encounter
--- OUTSIDE RECORDS SUMMARY | 2024-07-27 09:07 | XMS_ITS | Encounter Summary ---
Author Organization [employer] Address [address] [place] [address] 7t [place] [address] Care Team Providers Care Band Sawmill Operator Name Role Phone Faith Mason MD [...] 2:15 PM EST Office Visit [facility] MEDICINE 230 [place] [address] Kay Mackay MD 230 [place] [address] 08/23/2024 2:00 PM EDT Office Visit [facility] MEDICINE 230 [place] [address] Faith Mason MD 230 [place] [address] 09/20/2024 3:00 PM EDT Office Visit [facility] ADULT DENTAL 230 [place] [address] Karen Shannon 230 [place] [address] documented as of this encounter Procedures Procedure Name Priority Date/Time Associated Diagnosis Comments GLUCOSE, WHOLE BLOOD Routine 07/19/2024 2:14 PM EST documented in this encounter Results * (ABNORMAL) Glucose, Whole Blood (07/19/2024 2:14 PM EST) Glucose, Whole Blood 230(H) 60 - 115 mg/dL [facility] Comment:METER #: [id number] Testing performed in the Endocrinology Department [address] , [address], [place]. 07/19/2024 2:14 PM EST 07/19/2024 2:29 PM EST us Generic External Data Provider LAB BLOOD ORDERAB LES Final Result Performing Organization Address City/State/[facility] Co de Phone Number [facility] [address] [place] [address] [phone] documented in this encounter Visit Diagnoses Not on filedocumented in this encounter Additional Health Concerns Assessment Noted Time PHQ-9 Depression Total Score: 6 11/24/19 24 2:35 PM EDT documented as of this encounter Care Teams Band Sawmill Operator Relationship Specialty Start Date End Date Faith Mason MD 230 [place] [address] PCP - General Family Medicine 04/12/19 Linda Peralta Hog WorkerDirector Software Quality Assurance 06/08/24 documented as of this encounter
--- OUTSIDE RECORDS SUMMARY | 2024-07-27 09:08 | XMS_ITS | Encounter Summary ---
Author Organization [employer] Address [address] [facility] 7t [place] [address] Care Team Providers Care Deck Worker Name Role Phone Faith Mason MD Primary Care Provide r Encounter Details Date Type Department Care Team ([facility] st Contact Info) Description 07/18/2024 Orders Only [facility] MEDICINE 230 [place], [place] [phone] Faith Mason MD 230 [place], [place] [phone] Social History Tobacco Use Types Packs/Day Years [...] 2:15 PM EST Office Visit [facility] MEDICINE [address] [place] [address] Kay Mackay MD [address] [place] [address] 08/23/2024 2:00 PM EDT Office Visit [facility] MEDICINE [address] [place] [address] Faith Mason MD [address] [place] [address] 09/20/2024 3:00 PM EDT Office Visit [facility] ADULT DENTAL [address] [place] [address] Karen Shannon 230 [place] [address] documented as of this encounter Procedures Procedure Name Priority Date/Time Associated Diagnosis Comments BI MAMMOGRAM SCREENING TOMOSYNTHESIS BILATERAL Routine 07/18/2024 11:24 AM EST documented in this encounter Results * BI Mammogram Screening Tomosynthesis Bilateral (07/18/2024 11:24 AM EST) Anatomical Region Laterality Modality Breast Bilateral Mammography 07/18/2024 11:2 4 AM EST Narrative 07/23/2024 12:27 PM EST ? [facility] ? [address] ?[place] [address] ? Mammography Report ? Signed ? Patient: Madden Colon,Sarah ?MR#: [id number] ?? [id number] ? : 1965 ?Acct:[id number] ? Age/Sex: 59 / F ?ADM Date: 07/18/24 ? Loc: HO.MAMMO ? Attending Dr: Faith No MD ? Ordering Physician: Faith Mason MD ?Results: ?? 1Negative ? Date of Service: 07/18/24 ?Follow Up: 1 Year From Orig ?? inal Mammogram ? Procedure(s): MM tomosynthesis screening BI ?? Accession Number(s): [id number] ? cc: Faith Mason MD ? EXAMINATION: ?? MM SCREENING DIGITAL BREAST TOMOSYNTHESIS, BILATERAL ? CLINICAL INFORMATION: ? Screening. Asymptomatic. ? COMPARISON: ?? Mammography: Comparison is made with available priors ? TECHNIQUE: ?? Digital breast mammography with tomosynthesis is performed in both the ?? craniocaudal and mediolateral oblique views along with computer-aided ?? detection (CAD). ? FINDINGS: ?? There are scattered areas [...] due date for their next mammogram. ? Electronically signed by: ??Alicia Archuleta DO ??07/23/2024 12:23 PM EST ? Dictated By: ?Alicia Archuleta DO ? Signed By: ?<Electronically signed by Alicia Archuleta, DO in OV> ? 07/23/24 1223 ? DD/ ? TD/TT: 07/18/244 ? Wireless Technician: ? Procedure Note Roseanna, Image - 07/23/2024 Bashir [facility] [address] [place] [address] [place], [place] [address] Mammography Report Signed Patient: Sarah Dixon#: [id number] : 1965Acct:[id number] Age/Sex: 59 / FADM Date: 07/18/24 Loc: HO.MAMMO Attending Dr: Faith No MD Ordering Physician: Faith Mason MDResults: 1Negative Date of Service: 07/18/24Follow Up: 1 Year From Orig inal Mammogram Procedure(s): MM tomosynthesis screening BI Accession Number(s): [id number] cc: Faith Mason MD EXAMINATION: MM SCREENING DIGITAL BREAST TOMOSYNTHESIS, BILATERAL CLINICAL INFORMATION: Screening. Asymptomatic. COMPARISON: Mammography: Comparison is made with available priors TECHNIQUE: Digital breast mammography with tomosynthesis is performed in both the craniocaudal and mediolateral oblique views along with computer-aided detection (CAD). FINDINGS: There are scattered areas of fibroglandular [...] target due date for their next mammogram. Electronically signed by: Alicia Archuleta DO 07/23/2024 12:23 PM EST Dictated By: Alicia Archuleta DO Signed By: <Electronically signed by Alicia Archuleta DO in OV> 07/23/24 1223 DD/ 1124 TD/TT: 07/18/24 1124 Wireless Technician: us Faith No MD IMG BI PROCEDURES Yoshi telma Result - Final documented in this encounter Visit Diagnoses Not on filedocumented in this encounter Additional Health Concerns Assessment Noted Time PHQ-9 Depression Total Score: 6 11/24/19 24 2:35 PM EDT documented as of this encounter Care Teams Deck Worker Relationship Specialty Start Date End Date Faith Mason MD [address] [place] [phone] PCP - General Family Medicine 04/12/19 Linda Peralta Band BuilderUnderground Mine Superintendent 06/08/24 documented as of this encounter
--- OUTSIDE RECORDS SUMMARY | 2024-07-27 09:08 | XMS_ITS | Encounter Summary ---
Author Organization [employer] Address [address] [place] [address] 7t [place] [address] Care Team Providers Care Felting Machine Operator Helper Name Role Phone Faith Mason MD Primary Care Provide r Reason for Visit * Reason Onset Date Comments FYI 08/13/2023 Encounter Details Date Type Department Care Team ([facility] st Contact Info) Description 08/13/2023 Telephone [facility] MEDICINE 230 [place], [place] [phone] Faith Mason MD 230 [place] [address] FYI Social History Tobacco Use Types Packs/Day [...] of today. Any questions contact Tameka at [phone] documented in this encounter Plan of Treatment Upcoming Encounters Date Type Department Care Team (Late st Contact Info) Description 07/29/2024 2:15 PM EST Office Visit [facility] MEDICINE [address] [place] [phone] Kay Mackay MD [address] [place] [address] 08/23/2024 2:00 PM EDT Office Visit [facility] MEDICINE [address] [place] [address] Faith Mason MD [address] [place] [address] 09/20/2024 3:00 PM EDT Office Visit [facility] ADULT DENTAL [address] [place] [address] Karen Shannon 230 [place] [address] documented as of this encounter Visit Diagnoses Not on filedocumented in this encounter Additional Health Concerns Assessment Noted Time PHQ-9 Depression Total Score: 14 10/07/ 023 2:21 PM EDT documented as of this encounter Care Teams Felting Machine Operator Helper Relationship Specialty Start Date End Date Faith Mason MD [address] [place] [address] PCP - General Family Medicine 04/12/19 Linda Peralta Donkey DoctorYard Demurrage Clerk 06/08/24 documented as of this encounter
--- OUTSIDE RECORDS SUMMARY | 2024-07-27 09:08 | XMS_ITS | Encounter Summary ---
Author Organization [employer] Address [address] [place] [address] 7t [place] [address] Care Team Providers Care Elementary Ell Teacher Name Role Phone Faith Mason MD Primary Care Provide r Reason for Visit * Reason Comments Med Refill Encounter Details Date Type Department Care Team (Late st Contact Info) Description 06/24/2023 Refill [facility] MEDICINE 230 [place], [place] [phone] Faith Mason MD 230 [place], [place] [phone] Social History Tobacco Use Types Packs/Day Years [...] 07/29/2024 2:15 PM EST Office Visit [facility] MEDICINE [address] [place] [phone] Kay Mackay MD [address] [place] [address] 08/23/2024 2:00 PM EDT Office Visit [facility] MEDICINE [address] [place] [address] Faith Mason MD [address] [place] [address] 09/20/2024 3:00 PM EDT Office Visit [facility] ADULT DENTAL [address] [place] [phone] Shiva, Karen 230 [place] [address] documented as of this encounter Visit Diagnoses Not on filedocumented in this encounter Additional Health Concerns Assessment Noted Time PHQ-9 Depression Total Score: 14 023 2:21 PM EDT documented as of this encounter Care Teams Elementary Ell Teacher Relationship Specialty Start Date End Date Faith Mason MD [address] [place] [address] PCP - General Family Medicine 04/12/19 Linda Peralta Staff Development Coordinator RnVanstone Machine Operator 06/08/24 documented as of this encounter
--- OUTSIDE RECORDS SUMMARY | 2024-07-27 09:08 | XMS_ITS | Encounter Summary ---
Author Organization [employer] Address [address] [place] [address] 7t [place] [address] Care Team Providers Care Airfield Operations Specialist Name Role Phone Faith Mason MD Primary Care Provide r Reason for Visit * Reason Onset Date Comments Durable Medical Equipment 11/05/2023 Encounter Details Date Type Department Care Team ([facility] st Contact Info) Description 11/05/2023 Telephone [facility] MEDICINE 230 [place], [place] [phone] Faith Mason MD [address] [place] [address] Durable Medical Equipment Social History Tobacco Use [...] PM EDT Silver Mckeon at [facility] calling to request the following DME. Shower Chair Shower grab bars Wheel chair Rolator walker with seat documented in this encounter Plan of Treatment Upcoming Encounters Date Type Department Care Team (Late st Contact Info) Description 07/29/2024 2:15 PM EST Office Visit [facility] MEDICINE [address] [place] [phone] Kay Mackay MD [address] [place] [phone] 08/23/2024 2:00 PM EDT Office Visit [facility] MEDICINE [address] [place] [phone] Faith Mason MD [address] [place] [address] 09/20/2024 3:00 PM EDT Office Visit [facility] ADULT DENTAL [address] [place] [address] Karen Shannon [address] [place] [address] documented as of this encounter Visit Diagnoses Not on filedocumented in this encounter Additional Health Concerns Assessment Noted Time PHQ-9 Depression Total Score: 14 023 2:21 PM EDT documented as of this encounter Care Teams Airfield Operations Specialist Relationship Specialty Start Date End Date Faith Mason MD 230 [place] [address] PCP - General Family Medicine 04/12/19 Linda Peralta Operations BoardmanSeismograph Operator 06/08/24 documented as of this encounter
--- OUTSIDE RECORDS SUMMARY | 2024-07-27 09:08 | XMS_ITS | Clinical Summary ---
Author Organization [facility] Address [address] [address] Phone Care Team Providers Care Sports Instructor Name Role Phone Ines Zamora MD Primary Care Provider [phone] Medications lisinopril 10 MG tabletIndicatio ns:Stage 3 [...] Encounters Date Type Department Care Team Description 07/22/2024 Treatment [facility] [address] [address] Jeffy Tineo MD End stage renal disease; Dependence on renal dialysis 07/13/2024 Orders Only [facility] [address] [address] Jeffy Tineo MD 07/06/2024 Treatment [facility] [address] [address] Jeffy Tineo MD 07/04/2024 Treatment [facility] [address] [address] Jeffy Tineo MD 06/27/2024 Treatment [facility] [address] [address] Jfefy Tineo MD 06/24/2024 Treatment [facility] [address] [address] Jeffy Tineo MD 06/22/2024 Treatment [facility] [address] [address] Jeffy Tineo MD 06/17/2024 Treatment [facility] [address] [address] Jeffy Tineo MD 05/27/2024 Treatment [facility] [address] [address] Jeffy Tineo MD 05/24/2024 Treatment [facility] [address] [address] Jeffy Tineo MD 05/09/2024 Treatment [facility] [address] [address] Jeffy Tineo MD from Last 3 Months [...] Priority Date/Time Associated Diagnosis Comments HEMOGLOBIN Routine 07/20/2024 3:00 AM EST HEMOGLOBIN Routine 07/18/2024 3:00 AM EST HEMOGLOBIN [...] AND DIFFERENTIAL Routine 05/04/2024 3:00 AM EST from Last 3 Months Results * (ABNORMAL) Hemoglobin (07/20/2024 3:00 AM EST) Only the most recent of3 resultswithin the time period is included. Hgb 10.2(L) 11.2 - 15.7 g/dL [facility] Hemoglobin x 3 30.6(L) 33.6 - 47.1 g/dL [facility] 07/20/2024 3:00 AM EST 07/21/2024 12:09 PM EST Jeffy Tineo MD LAB BLOOD ORDERABLES Final Re sult Performing Organization Address [facility] de Phone Number [facility] [address] [place] [address] * (ABNORMAL) Hemoglobin and hematocrit (07/13/2024 3:00 AM EST) Only the most recent of7 resultswithin the time period is included. Hgb 9.6(L) 11.2 - 15.7 g/dL [facility] Hematocrit 29.8(L) 34.1 - 44.9 % [facility] Hemoglobin x 3 28.8(L) 33.6 - 47.1 g/dL [facility] 07/13/2024 3:00 AM EST 07/15/2024 12:51 PM EST Jeffy Tineo MD LAB BLOOD ORDERABLES Final Re sult Performing Organization Address [facility] de Phone Number [facility] [address] [place] [address] * LIH (06/29/2024 3:00 AM EST) Only the most recent of5 resultswithin the time period is included. Pathologist [facility] Lipemia Normal Normal [facility] Icterus Normal Normal [facility] Hemolysis Normal Normal [facility] 06/29/2024 3:00 AM EST 06/30/2024 12:39 PM EST Jeffy Tineo MD LAB [id number] SOLICITED RESULTS Final Result Performing Organization Address [facility] de Phone Number [facility] [address] [place] [address] * (ABNORMAL) Kt/V Natural Log, URR (06/29/2024 3:00 AM EST) Only the most recent of3 resultswithin the time period is included. Pathologist [facility] Treatment Time 200 min [facility] Pre-Weight, lb [...] 12:39 PM EST Jeffy Tineo MD LAB [id number] SOLICITED RESULTS Final Result Performing Organization Address City/[facility] Co de Phone Number [facility] [address] [place] [address] * (ABNORMAL) Calcium Phosphorus Product, Adjusted (06/29/2024 [...] PM EST us Jeffy Tineo MD LAB [id number] SOLICITED RESULTS Final Result Performing Organization Address City/[facility]/ZIP Co de Phone Number [facility] [address] [place] [address] * (ABNORMAL) TSAT (06/29/2024 3:00 AM EST) [...] Final Re sult [facility] [address] [place] [address] * (ABNORMAL) CBC and Differential (06/29/2024 3:00 [...] ORDERABLES Final Re sult Performing Organization Address [facility] Co de Phone Number [facility] [address] [place] [address] * ALT (06/29/2024 3:00 AM EST) Only the most recent of3 resultswithin the time period is included. ALT (SGPT) 13 10 - 49 U/L [facility] 06/29/2024 3:00 AM EST 06/30/2024 12:39 PM EST Jeffy Tineo MD LAB BLOOD ORDERABLES Final Re sult Performing Organization Address [facility] de Phone Number [facility] [address] [place] [address] * AST (06/29/2024 3:00 AM EST) Only the most recent of3 resultswithin the time period is included. AST (SGOT) 14 <34 U/L [facility] 06/29/2024 3:00 AM EST 06/30/2024 12:39 PM EST Jeffy Tineo MD LAB BLOOD ORDERABLES Final Re sult Performing Organization Address [facility] de Phone Number [facility] [address] [place] [address] * Protein, total (06/29/2024 3:00 AM EST) Only the most recent of3 resultswithin the time period is included. Total Protein 7.3 6.4 - 8.9 g/dL [facility] 06/29/2024 3:00 AM EST 06/30/2024 12:39 PM EST Jeffy Tineo MD LAB BLOOD ORDERABLES Final Re sult Performing Organization Address [facility] Co de Phone Number [facility] [address] [place] [address] * Alkaline phosphatase (06/29/2024 3:00 AM EST) Only the most recent of3 resultswithin the time period is included. Alkaline Phosphatase 98 46 - 116 U/L [facility] 06/29/2024 3:00 AM EST 06/30/2024 12:39 PM EST Jeffy Tineo MD LAB BLOOD ORDERABLES Final Re sult Performing Organization Address [facility] de Phone Number [facility] [address] [place] [address] * PTH, Intact (06/29/2024 3:00 AM EST) [...] ORDERABLES Final Re sult Performing Organization Address [facility] de Phone Number [facility] [address] * Magnesium (06/29/2024 3:00 AM EST) Only the most recent of3 resultswithin the time period is included. Magnesium 2.2 1.9 - 2.7 mg/dL [facility] 06/29/2024 3:00 AM EST 06/30/2024 12:39 PM EST Jeffy Tineo MD LAB BLOOD ORDERABLES Final Re sult Performing Organization Address [facility] de Phone Number [facility] [address] [address] * (ABNORMAL) Lactate dehydrogenase (06/29/2024 3:00 AM EST) Only the most recent of3 resultswithin the time period is included. LDH 300(H) 120 - 246 U/L [facility] 06/29/2024 3:00 AM EST 06/30/2024 12:39 PM EST Jeffy Tineo MD LAB BLOOD ORDERABLES Final Re sult Performing Organization Address [facility] de Phone Number [facility] [address] [place] [address] * (ABNORMAL) Glucose, random (06/29/2024 3:00 AM EST) Only the most recent of3 resultswithin the time period is included. Glucose 278(H) 74 - 109 mg/dL [facility] 06/29/2024 3:00 AM EST 06/30/2024 12:39 PM EST Jeffy Tineo MD LAB BLOOD ORDERABLES Final Re sult Performing Organization Address [facility] de Phone Number [facility] [address] [place] [address] * (ABNORMAL) Ferritin (06/29/2024 3:00 AM EST) Only the most recent of2 resultswithin the time period is included. Ferritin 1,647(H) 10 - 291 ng/mL [facility] 06/29/2024 3:00 AM EST 06/30/2024 12:39 PM EST Jeffy Tineo MD LAB BLOOD ORDERABLES Final Re sult Performing Organization Address [facility] de Phone Number [facility] [address] [place] [address] * (ABNORMAL) Creatinine, serum (06/29/2024 3:00 AM EST) Only the most recent of3 resultswithin the time period is included. Creatinine 7.22(H) 0.55 - 1.02 mg/dL [facility] 06/29/2024 3:00 AM EST 06/30/2024 12:39 PM EST Jeffy Tineo MD LAB BLOOD ORDERABLES Final Re sult Performing Organization Address [facility] de Phone Number [facility] [address] [place] [address] * Bilirubin, total (06/29/2024 3:00 AM EST) Only the most recent of3 resultswithin the time period is included. Total Bilirubin 0.4 0.3 - 1.2 mg/dL [facility] 06/29/2024 3:00 AM EST 06/30/2024 12:39 PM EST Jeffy Tineo MD LAB BLOOD ORDERABLES Final Re sult Performing Organization Address [facility] de Phone Number [facility] [address] [place] [address] * (ABNORMAL) Electrolyte panel (06/29/2024 3:00 AM EST) Only the most recent of3 resultswithin the time period is included. Sodium 136 136 - 145 mEq/L [facility] Potassium 4.7 3.4 - 5.0 mEq/L [facility] Chloride 96(L) 98 - 107 mEq/L [facility] Bicarbonate (CO2) 27 21 - 31 mEq/L [facility] Anion Gap 13 3 - 14 mEq/L [facility] 06/29/2024 3:00 AM EST 06/30/2024 12:39 PM EST Jeffy Tineo MD LAB BLOOD ORDERABLES Final Re sult Performing Organization Address [facility] de Phone Number [facility] [address] [place] [address] * Collection Date (06/24/2024 3:00 AM EST) Collection Date See Comment [facility] Comment: Patient sample received may exceed specimen stability, based on the collection date electronically provided. ??When reviewing patient results, verify collection information and consider specimen stability before acting on any critical or panic results. 06/24/2024 3:00 AM EST Jeffy Tineo MD LAB [id number] SOLICITED RESULTS Final Result Performing Organization Address [facility] de Phone Number [facility] [address] [place] [address] * Calcium, Adjusted w Albumin (06/17/2024 3:00 AM EST) Calcium 10.0 8.6 - 10.3 mg/dL [facility] Albumin 4.2 3.6 - 5.4 g/dL [facility] Calcium, Adjusted Total 10.0 8.6 - 10.3 mg/dL [facility] 06/17/2024 3:00 AM EST 06/18/2024 2:10 PM EST Jeffy Tineo MD LAB BLOOD ORDERABLES Final Re sult Performing Organization Address [facility] Phone Number [facility] [address] [place] [address] * Confirmation Test HCV (06/01/2024 3:00 AM EST) Hep C Ab Confirmation Not needed [facility] 06/01/2024 3:00 AM EST 06/02/2024 1:33 PM EST Jeffy Tineo MD LAB BLOOD ORDERABLES Final Re sult Performing Organization Address [facility] de Phone Number [facility] [address] [place] [address] * HEPATITIS C ABS W/REFLEX RNA DETECTR (06/01/2024 3:00 AM EST) Hep C Virus Ab Non-Reacti ve Non-Reacti ve [facility] 06/01/2024 3:00 AM EST 06/02/2024 2:21 PM EST Jeffy Tineo MD LAB [id number] SOLICITED RESULTS Final Result Performing Organization Address [facility] de Phone Number [facility] [address] [place] [address] * Aluminum level (06/01/2024 3:00 AM EST) Aluminum 4 1 - 20 ug/L [facility] 06/01/2024 3:0 0 AM EST 06/02/2024 2:46 PM EST Jeffy Tineo MD LAB BLOOD ORDERABLES Final Re sult Performing Organization Address [facility] de Phone Number [facility] [address] [place] [address] * Vitamin D 25 Hydroxy (06/01/2024 3:00 AM EST) Vitamin D, 25-Hydroxy 48 30 - 100 ng/mL [facility] Comment: Status ? Adult ?? Pediatric Deficient: ? <20 ? <15 Insufficient: ??20-29 ?? 15-19 Sufficient: ?30-100 ??20-100 06/01/2024 3:00 AM EST 06/02/2024 2:21 PM EST Jeffy Tineo MD LAB BLOOD ORDERABLES Final Re sult Performing Organization Address [facility] de Phone Number [facility] [address] [place] [address] * Hepatitis B Surface Antibody (06/01/2024 3:00 AM EST) Only the most recent of2 resultswithin the time period is included. Hep B Surface Antibody 19 mIU/mL [facility] Comment: Interpretation: <10: No Immunity >=10: Probable Immunity 06/01/2024 3:00 AM EST 06/02/2024 2:21 PM EST Jeffy Tineo MD LAB BLOOD ORDERABLES Final Re sult Performing Organization Address [facility] de Phone Number [facility] [address] [place] [address] * Uric Acid (06/01/2024 3:00 AM EST) Uric Acid 6.0 2.3 - 6.6 mg/dL [facility] 06/01/2024 3:00 AM EST 06/02/2024 2:21 PM EST Jeffy Tineo MD LAB BLOOD ORDERABLES Final Re sult Performing Organization Address [facility] de Phone Number [facility] [address] [place] [address] * (ABNORMAL) Hemoglobin A1c (06/01/2024 3:00 AM [...] ORDERABLES Final Re sult Performing Organization Address [facility] Phone Number [facility] [address] [place] [address] * (ABNORMAL) Lipid panel (06/01/2024 3:00 AM [...] ORDERABLES Final Re sult Performing Organization Address [facility] de Phone Number [facility] [address] [address] * Potassium (05/13/2024 3:00 AM EST) Pathologist [facility] Potassium 4.6 3.4 - 5.0 mEq/L [facility] 05/13/2024 3:00 AM EST 05/14/2024 2:41 PM EST Jeffy Tineo MD LAB BLOOD ORDERABLES Final Re sult Performing Organization Address [facility] de Phone Number [facility] [address] [place] [address] * (ABNORMAL) Phosphorus (05/13/2024 3:00 AM EST) Phosphorus, Serum 5.8(H) 2.5 - 5.0 mg/dL [facility] 05/13/2024 3:00 AM EST 05/14/2024 2:41 PM EST us Jeffy Tineo MD LAB BLOOD ORDERABLES Final Re sult [facility] [address] [place] [address] from Last 3 Months Insurance [place] Care Teams Sports Instructor Relationship Specialty Start Date End Date Ines Zamora MD [address] [place] [phone] PCP - General 06/04/20
--- OUTSIDE RECORDS SUMMARY | 2024-07-27 09:08 | XMS_ITS | Encounter Summary ---
Author Organization [facility] Address [address] [place] [address] [address] [place] [address] Care Team Providers Care Histology Technologist Name Role Phone Faith Mason MD Primary Care Provide r Reason for Visit * Reason Comments Med Refill Encounter Details Date Type Department Care Team (Late st Contact Info) Description 08/11/2023 Refill [facility] [address] [place], [place] [phone] Faith Mason MD [address] [place], [place] [phone] Social History Tobacco Use Types Packs/Day Years [...] 07/29/2024 2:15 PM EST Office Visit [facility] [address] [place] [phone] Kay Mackay MD [address] [place] [phone] 08/23/2024 2:00 PM EDT Office Visit [facility] [address] [place] [phone] Faith Mason MD [address] [place] [address] 09/20/2024 3:00 PM EDT Office Visit [facility] ADULT DENTAL [address] [place] [phone] Shiva, Karen [address] [place] [address] documented as of this encounter Visit Diagnoses Not on filedocumented in this encounter Additional Health Concerns Assessment Noted Time PHQ-9 Depression Total Score: 14 023 2:21 PM EDT documented as of this encounter Care Teams Histology Technologist Relationship Specialty Start Date End Date Faith Mason MD [address] [place] [phone] PCP - General Family Medicine 04/12/19 Linda Peralta Lighting Engineering TechnicianPhoto Technologist 06/08/24 documented as of this encounter
--- OUTSIDE RECORDS SUMMARY | 2024-07-27 09:08 | XMS_ITS | Encounter Summary ---
Author Organization [employer] Address [address] [facility] 7t [place] [address] Care Team Providers Care Customs Entry Writer Name Role Phone Faith Mason MD Primary Care Provide r Reason for Visit * Reason Comments Med Refill Encounter Details Date Type Department Care Team (Late st Contact Info) Description 04/05/[address] [facility]S [address] [place], [place] [phone] Faith Mason MD [address] [place] [address] Atrial flutter, unspecified type (CMS/HCC); Diabetic polyneuropathy [...] PM EST Office Visit [facility] MED[facility]INE [address] [place] [phone] Kay Mackay MD [address] [place] [phone] 08/23/2024 2:00 PM EDT Office Visit [facility] [address] [place] [address] [phone] Faith Mason MD [address] [place] [phone] 09/20/2024 3:00 PM EDT Office Visit [facility] ADULT DENTAL [address] [place] [address] [phone] Karen Shannon [address] [place] [address] documented as of this encounter Visit Diagnoses Diagnosis Atrial flutter, unspecified type (CMS/HCC) Diabetic polyneuropathy associated with type 2 diabetes mellitus (CMS/HCC) documented in this encounter Additional Health Concerns Assessment Noted Time PHQ-9 Depression Total Score: 6 11/24/19 24 2:35 PM EDT documented as of this encounter Care Teams Customs Entry Writer Relationship Specialty Start Date End Date Faith Mason MD [address] [place] [phone] PCP - General Family Medicine 04/12/19 Linda Peralta Saxophone AssemblerAgents' Records Clerk 06/08/24 documented as of this encounter
--- OUTSIDE RECORDS SUMMARY | 2024-07-27 09:08 | XMS_ITS | Encounter Summary ---
Author Organization [employer] Address [address] [place] [address] 7[address] [place] [address] Care Team Providers Care Heel Cementer Name Role Phone Faith Mason MD Primary Care Provide r Reason for Visit * Reason Comments Med Refill Encounter Details Date Type Department Care Team (Late st Contact Info) Description 07/25/2024 Refill [facility] [address] [place], [place] [phone] Faith Mason MD [address] [place], [place] [phone] Social History Tobacco Use Types Packs/Day Years [...] 2:15 PM EST Office Visit [facility] [address] [place] [phone] Kay Mackay MD [address] [place] [phone] 08/23/2024 2:00 PM EDT Office Visit [facility] [address] [place] [phone] Faith Mason MD [address] [place] [phone] 09/20/2024 3:00 PM EDT Office Visit [facility] ADULT DENTAL [address] [place] [phone] Karen Shannon [address] [place] [address] documented as of this encounter Visit Diagnoses Not on filedocumented in this encounter Additional Health Concerns Assessment Noted Time PHQ-9 Depression Total Score: 6 11/24/19 24 2:35 PM EDT documented as of this encounter Care Teams Heel Cementer Relationship Specialty Start Date End Date Faith Mason MD [address] [place] [address] PCP - General Family Medicine 04/12/19 Linda Peralta Long Lines OperatorMolder Feeder 06/08/24 documented as of this encounter
--- OUTSIDE RECORDS SUMMARY | 2024-07-27 09:08 | XMS_ITS | Encounter Summary ---
Author Organization [employer] Address [address] [facility] 7t [place] [address] Care Team Providers Care Clinical Pathologist Name Role Phone Faith Mason MD Primary Care Provide r Reason for Visit * Reason Comments Med Refill Encounter Details Date Type Department Care Team (Late st Contact Info) Description 04/04/2024 Refill [facility] [address] [place], [place] [phone] Faith Mason MD [address] [place] [address] Essential hypertension Social History Tobacco Use Types [...] EST Office Visit [facility] [address] [place] [phone] Kay Mackay MD [address] [place] [phone] 08/23/2024 2:00 PM EDT Office Visit [facility] [address] [place] [phone] Faith Mason MD [address] [place], [place] [phone] 09/20/2024 3:00 PM EDT Office Visit [facility] ADULT DENTAL [address] [place] [address] Karen Shannon [address] [place] [address] documented as of this encounter Visit Diagnoses Diagnosis Essential hypertension Unspecified essential hypertension documented in this encounter Additional Health Concerns Assessment Noted Time PHQ-9 Depression Total Score: 6 11/24/19 24 2:35 PM EDT documented as of this encounter Care Teams Clinical Pathologist Relationship Specialty Start Date End Date Faith Mason MD [address] [place] [address] PCP - General Family Medicine 04/12/19 Linda Peralta Hog SlaughtererTherapist Asst 06/08/24 documented as of this encounter
--- OUTSIDE RECORDS SUMMARY | 2024-07-27 09:08 | XMS_ITS | Encounter Summary ---
Author Organization [facility] Address [address] [place] [phone] Phone Care Team Providers Care House Moving Supervisor Name Role Phone Ines Zamora MD Primary Care Provider [phone] Encounter Details Date Type Department Care Team (Late st Contact Info) Description 07/04/2024 Treatment [facility] [address] [address] Sweetie Pandey MD [facility] [address] Social History Tobacco Use Types [...] care for end stage renal disease. Attending Boiler Tube Reamer: SWEETIE PANDEY MD Dialysis Location: [facility] [...] on filedocumented in this encounter Care Teams House Moving Supervisor Relationship Specialty Start Date End Date Ines Zamora MD [address] [place] [phone] PCP - General 06/04/20 documented as of this encounter
--- OUTSIDE RECORDS SUMMARY | 2024-07-27 09:08 | XMS_ITS | Encounter Summary ---
Author Organization [employer] Address [address] [place] [address] [address]t [place] [address] Care Team Providers Care Residential Roofer Helper Name Role Phone Faith Mason MD [...] Description 07/29/2024 2:15 PM EST Office Visit [facility] [address] [place] [address] Kay Mackay MD [address] [place] [address] 08/23/2024 2:00 PM EDT Office Visit [facility] [address] [place] [address] Faith Mason MD [address] [place] [address] 09/20/2024 3:00 PM EDT Office Visit [facility] ADULT DENTAL [address] [place] [address] Karen Shannon [address] [place] [address] documented as of this encounter Procedures Procedure Name Priority Date/Time Associated Diagnosis Comments GLUCOSE, WHOLE BLOOD Routine 07/05/2024 2:43 PM EST documented in this encounter Results * (ABNORMAL) Glucose, Whole Blood (07/05/2024 2:43 PM EST) Glucose, Whole Blood 361(HH) 60 - 115 mg/dL [facility] Comment:METER #: [id number] Testing performed in the Endocrinology Department [address] , [address], [place]. 07/05/2024 2:43 PM EST 07/05/2024 2:49 PM EST us Generic External Data Provider LAB BLOOD ORDERAB LES Final Result Performing Organization Address City/State/[facility] Co de Phone Number [facility] [address] [place] [phone] documented in this encounter Visit Diagnoses Not on filedocumented in this encounter Additional Health Concerns Assessment Noted Time PHQ-9 Depression Total Score: 6 11/24/19 24 2:35 PM EDT documented as of this encounter Care Teams Residential Roofer Helper Relationship Specialty Start Date End Date Faith Mason MD [address] [place] [address] PCP - General Family Medicine 04/12/19 Linda Peralta Gas Operations SuperintendentIc Engineer 06/08/24 documented as of this encounter
--- OUTSIDE RECORDS SUMMARY | 2024-07-27 09:08 | XMS_ITS | Clinical Summary ---
Author Organization [employer] Address [address] [place] [address] 7t [place] [address] Care Team Providers Care Credit Card Interviewer Name Role Phone Faith Mason MD Primary [...] folds for fungal infection 30 g 1 022 Active HumaLOG KWIKPEN 100 UNIT/ML injection INJECT 8-14 UNITS SUBCUTANEOUSLY THREE TIMES DAILY BEFORE MEALS PER SLIDING SCALE (BS 80-100: 8 units; 101-200: 10 units; 201-300: 12 units; >301 14 units) 15 mL 11 024 Active Blood Glucose Monitoring Suppl (FreeStyle [place] Lite) w/Device kitIndications:Ty pe 2 diabetes mellitus with hyperglycemia, with long-term current use of insulin ([facility]) Use to test blood sugar 3 times daily 1 kit 024 Active TRUEplus Lancets 33G miscIndications:T ype 2 diabetes mellitus with hyperglycemia, with long-term current use of insulin ([facility]) TEST BLOOD SUGAR THREE TIMES DAILY 100 [...] hyperglycemia, with long-term current use of insulin ([facility]) USE DIRECTED THREE TIMES DAILY 100 each 11 024 Active insulin glargine (Toujeo Max SoloStar) 300 UNIT/ML injectionIndicati ons:Type 2 diabetes mellitus with hyperglycemia, with long-term current use of insulin ([facility]) INJECT 28 UNITS SUBCUTANEOUSLY EVERY DAY 6 mL 1 024 Active sodium chloride ([place]) 0.65 % nasal spray Administer 1 spray [...] MG EC tabletIndications :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 236 mL 024 Active brimonidine (AlphaGAN) 0.2 % ophthalmic solution Administer 1 drop into the left eye 3 times daily. Active Continuous Glucose Workday Director (FreeStyle Tika 3 [place]) device Use as directed Active Continuous Glucose Sensor (FreeStyle Tika 3 Sensor) [facility] USE DIRECTED TO TEST BLOOD SUGAR CHANGE [...] 3 025 Active apixaban (Eliquis) 5 MG tabletIndications :Atrial flutter, unspecified type (CMS/HCC) TAKE 1 TABLET BY MOUTH TWICE DAILY IN THE MORNING AND IN THE EVENING 60 tablet 025 Active docusate sodium (Colace) 100 MG capsuleIndication s:Other constipation TAKE 1 CAPSULE BY MOUTH TWICE DAILY 180 capsule 025 Active Fiber-Lax 625 MG tabletIndications :Constipation, unspecified constipation type TAKE 1 TABLET BY MOUTH EVERY MORNING 90 tablet 3 025 Active atorvastatin (Lipitor) 40 MG tablet TAKE 1 TABLET BY MOUTH EVERYDAY AT NOON 90 tablet 1 025 Active D3 Super Strength 50 MCG (2000 UT) capsule TAKE 1 CAPSULE BY MOUTH EVERY MORNING 90 capsule 1 025 Active polycarbophil (FiberCon) 625 MG tabletIndications :Constipation, unspecified constipation type Take 1 tablet (625 mg) by mouth in the morning. 30 tablet 11 024 2024 Discontinued D3 Super Strength 50 MCG (2000 UT) capsule TAKE 1 CAPSULE BY MOUTH EVERY MORNING 90 capsule 1 024 2024 Discontinued atorvastatin (Lipitor) 40 MG tablet TAKE 1 TABLET BY MOUTH EVERYDAY AT NOON 90 tablet 1 024 2024 Discontinued docusate sodium (Colace) 100 MG capsuleIndication s:Other [...] (05/21/2022 9:19 AM EST): -Currently followed by [facility] - last available consult note Jan 2022 w/ Dr. Miller -Continues with current med regimen: -Januvia 25mg PO daily -Tuojeo insulin 28 units subcutaneous daily -Lispro AC per SS -Dexcom ordered and managed through [facility] -Strongly encourage pt to schedule follow [...] 9:12 AM EST): -Continues with HD on // -Low potassium diet, continues sevelamer with meals [...] remission 09/02/2018 Coronary artery disease invo lving umatilla tribe coronary artery of umatilla tribe heart with unstable angina pectoris 06/03/2018 Calculus of kidney 06/03/2018 Atypical chest pain 06/03/2018 Chronic endometritis 11/04/2016 Resolved Problems Problem Noted Date Diagnosed Date Resolved Date Type 2 diabetes mellitus without complication 09/03/19 19 05/21/2022 Encounters Date Type Department Care Team Description 07/25/2024 Refill [facility] [address] [place] [address] Faith Mason MD 07/23/2024 Refill [facility] [address] [place] [address] Faith Mason MD Constipation, unspecified constipation type 07/19/2024 Orders Only GENERIC EXTERNAL DATA DEPARTMENT Provider, Generic External Data 07/18/2024 Orders Only [facility] [address] [place] [address] Faith Mason MD 07/18/2024 Refill [facility] [address] [place] [address] Faith Mason MD Other constipation 07/05/2024 Orders Only GENERIC EXTERNAL DATA DEPARTMENT Provider, Generic External Data 06/17/2024 Refill [facility] [address] [place], [place] [address] Faith Mason MD 06/17/2024 Refill [facility] [address] [place], [place] [address] Faith Mason MD Atrial flutter, unspecified type (CMS/HCC) 06/16/2024 Telephone [facility] [address] [place], [place] [address] Faith Mason MD 06/08/2024 Telephone [facility] [address] [place], [place] [address] Faith Mason MD Care Coordination (ICP Care Plan) 06/07/2024 10:00 AM EST Office Visit [facility] [address] [place], [place] [address] Karen Shannon 06/03/2024 Orders Only [facility] [address] [place], [place] [address] Faith Mason MD Post-menopausal bleeding (Primary Dx) 05/31/2024 Refill [facility] [address] [place], [place] [address] Faith Mason MD Atrial flutter, unspecified type ([facility]/HCC); Diabetic polyneuropathy associated with type 2 diabetes mellitus (CMS/HCC); Polyarthralgia 05/26/2024 9:30 AM EST Office Visit [facility] [address] [place], [place] [address] Faith Mason MD Other constipation (Primary Dx); Essential hypertension; Type 2 diabetes mellitus with hyperglycemia, with long-term current use of insulin (CMS/HCC); Metabolic encephalopathy; Chronic nonintractable headache, unspecified headache type 05/26/2024 Travel 05/19/2024 Telephone [facility] [address] [place], [place] [address] Bernice Fitzpatrick, RN Results 05/19/2024 Orders Only [facility] [address] [place], [place] [address] Faith Mason MD Thyroid nodule (Primary Dx) 05/11/2024 3:15 PM EST Office Visit [facility] [address] [place] [address] Faith Mason MD Acute maxillary sinusitis, recurrence not specified (Primary Dx); Type 2 diabetes mellitus with hyperglycemia, with long-term current use of insulin ([facility]); Acute cough 05/11/2024 Travel 05/10/2024 Telephone [facility] [address] [place] [address] Faith Mason MD Hospital Follow-up 05/03/2024 Refill [facility] [address], [place] [phone] Faith Mason MD Atrial flutter, unspecified type ([facility]); Diabetic polyneuropathy associated with type 2 diabetes mellitus ([facility]); 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 I have alli maqruez 12/24/[address] you li [...] Description 07/29/2024 2:15 PM EST Office Visit [facility] [address] [place] [address] Kay Mackay MD [address] [place] [address] 08/23/2024 2:00 PM EDT Office Visit [facility] [address] [place] [address] Faith Mason MD [address] [place] [address] 09/20/2024 3:00 PM EDT Office Visit [facility] [address], [place] [phone] Shiva, Karen [address] [place] [address] Health Maintenance Due Date Last Done Comments [...] Screening 07/23/2021 07/23/2020, 07/23/2020 COVID-19 Vaccine ( season) 2024 05/13/2023, 05/07/2021, 07/05/2020 Dental X-Ray: Bitewings 01/24/2024 01/23/20 23, 06/24/2019, 06/29/2008 Zoster Vaccines (1 of 2) 05/12/2024 Diabetes: Hemoglobin A1C 06/17/2024 024, 11/24/2023, 08/04/2023, Additional history exists Cervical Cancer Screening 10/12/2024 Pap Smear 10/12/2024 10/13/2023, 07/25/2020 Depression Screening 11/23/2024 11/24/2023, 11/24/19 Lipid Panel 11/30/2024 12/01/2023, 09/09/2022 Alcohol/Substance Use Screening 12/23/2024 12/24/2023 SDOH Screening 12/23/2024 12/24/2023 Tobacco Screening 05/26/2025 05/26/2024 Mammogram 07/18/2025 07/18/2024, 06/26, 02/01/2020 Colorectal Cancer Screening 09/16/2026 FIT DNA/Cologuard 09/16/2026 [...] WHOLE BLOOD Routine 07/19/2024 2:14 PM EST BI MAMMOGRAM SCREENING TOMOSYNTHESIS BILATERAL Routine 07/18/2024 11:24 AM EST GLUCOSE, WHOLE BLOOD Routine 07/05/2024 2:43 PM EST NO CHARGE VISIT Routine 06/07/2024 10:00 AM EST POCT GLUCOSE Routine 05/11/2024 3:36 PM EST Type 2 diabetes mellitus with hyperglycemia, with long-term current use of insulin ([facility]) CTA CHEST PE PROTOCAL Routine 04/28/2024 12:32 AM EST POCT GLYCATED HEMOGLOBIN, TOTAL Routine 03/17/2024 3:42 PM EDT Type 2 diabetes mellitus with hyperglycemia, with long-term current use of insulin ([facility]) HEPATITIS PANEL, GENERAL Routine 01/26/2024 2:16 PM [...] 09/17/2023 12:00 PM EDT Colon cancer screening BITEWING - SINGLE RADIOGRAPHIC IMAGE Routine 01/22/2023 [...] Whole Blood 230(H) 60 - 115 mg/dL [facility] Comment:METER #: [id number] Testing performed in the Endocrinology Department [facility], [address] [place] [address] , [address], Bashir RAMOS. 07/19/2024 2:14 PM EST 07/19/2024 2:29 PM EST us Generic External Data Provider LAB BLOOD ORDERAB LES Final Result Performing Organization Address City/State/[facility] Co de Phone Number [facility] [address] [place] [address] [phone] * BI Mammogram Screening Tomosynthesis Bilateral (07/18/2024 11:24 AM EST) Anatomical Region Laterality Modality Breast Bilateral Mammography 07/18/2024 11:2 4 AM EST Narrative 07/23/2024 12:27 PM EST ? [facility] [place] ? [address] ?[place] [address] ? Mammography Report ? Signed ? Patient: Madden Colon,Sarah ?MR#: [id number] ?? [id number] ? : 1965 ?Acct:[id number] ? Age/Sex: 59 / F ?ADM Date: 02/24/25 ? Loc: HO.MAMMO ? Attending Dr: Faith No MD ? Ordering Physician: Faith Mason MD ?Results: ?? 1Negative ? Date of Service: 07/18/24 ?Follow Up: 1 Year From Orig ?? inal Mammogram ? Procedure(s): MM tomosynthesis screening BI ?? Accession Number(s): [id number] ? cc: Faith Mason MD ? EXAMINATION: [...] ??Alicia Archuleta DO ??07/23/2024 12:23 PM EST ?? RP ? Dictated By: ?Alicia Archuleta DO ? Signed By: ?<Electronically signed by Alicia Archuleta, DO in OV> ? 07/23/24 1223 ? DD/ 1124 ? TD/TT: 07/18/24 1124 ? Television Anchor: ? Procedure Note Roseanna, Image - 07/23/2024 [facility] [address] [place] [address] Mammography Report Signed Patient: Vidal Dixon#: [id number] : 1965Acct:[id number] Age/Sex: 59 / FADM Date: 07/18/24 Loc: HO.MAMMO Attending Dr: Faith No MD Ordering Physician: Faith Mason MDResults: 1Negative Date of Service: 07/18/24Follow Up: 1 Year From Orig inal Mammogram Procedure(s): MM tomosynthesis screening BI Accession Number(s): [id number] cc: Faith Mason MD EXAMINATION: MM SCREENING [...] 07/23/24 1223 DD/ 1124 TD/TT: 07/18/24 1124 Television Anchor: us Faith No MD IMG BI PROCEDURES Yoshi telma Result - Final * (ABNORMAL) POCT Glucose (05/11/2024 3:36 PM EST) Glucose Blood, POC 279(A) 60 - 200 mg/dL QC Media Lot # [id number] Lot# Expiration Date 172,025 Blood Capillary blood specimen / Unknown 05/11/2024 3:36 PM EST us Faith No MD POINT OF CARE TEST EN TER/EDIT ORDERABLES Final Result * CTA Chest PE Protocal (04/28/2024 12:32 AM EST) Anatomical Region Laterality Modality Body, Chest Computed Tomogra phy 04/28/2024 12:3 2 AM EST Narrative 04/28/2024 9:15 AM EST ? [facility] ?[address] ?[place] [address] ? CT Scan Report ? Signed ? Patient: Madden Colon,Sarah ?MR#: [id number] ?? [id number] ? : 1965 ?Acct:[id number] ? Age/Sex: 59 / F ?ADM Date: 04/25/24 ? Loc: HO.IMC ?474-1 ? Attending Dr: Delvis Gomez MD ? Ordering Physician: Delvis Gomez MD ?? Date of Service: 04/28/24 ?? Procedure(s): CT angio chest PE protocol ?? Accession Number(s): [id number] ? cc: Delvis Gomez MD; Faith Mason [...] Delgado MD ??04/28/2024 09:12 AM ?? EST ? Dictated By: ?Mariano Stinson MD ? Signed By: ?<Electronically signed by Mariano Lockett MD in OV> ? 04/28/[address] ? DD/ ? TD/TT: 04/28/2453 ? Television Anchor: ? Procedure Note Greg Condon - 04/28/[address] [address] [place] Scan Report Signed Patient: Vidal Dixon#: [id number] : 1965Acct:[id number] Age/Sex: 59 / FADM Date: 04/25/24 Loc: HO.IMC 474-[address]: Delvis Gomez MD Ordering Physician: Delvis Gomez MD Date of Service: 04/28/24 Procedure(s): CT angio chest PE protocol Accession Number(s): [id number] cc: Delvis Gomez MD; Faith Mason MD [...] by: Mariano Delgado MD 04/28/2024 09:12 AM [facility] Dictated By: Mariano Stinson MD Signed By: <Electronically signed by Mariano Lockett MDin OV> 04/28/249[address] DD/ 0032 TD/TT: 04/28/24 0054 Television Anchor: [facility] External Provider IMG CT PROCEDURES Edited Result - Final * (ABNORMAL) POCT HGB A1C (03/17/2024 3:42 PM EDT) Hemoglobin A1C 7.8(A) 4.0 - 6.0 % QC Media Lot # [id number] Lot# Expiration Date ,636 Blood 03/17/2024 3:42 PM EDT Faith No MD POINT OF CARE TEST EN TER/EDIT ORDERABLES Final Result * Hepatitis Panel, General (01/26/2024 2:16 PM EDT) Pathologist [facility] Hepatitis A IgM REACTIVE (Abnormal) Nonreactive [facility] Comment:For additional infor mation, please refer tohttp://[employer]/faq/NRO271(This link is being provided for informational/educational purposes only.)THIS TEST PERFORMED AT:[facility] [address] [phone] DIRECTOR: EVITA ALICEA MD ~Hepatitis B Surface Antibody REACTIVE (Abnormal) Nonreactive [facility] Comment:THIS TEST PERFORMED AT:[facility] [address] [place] [phone] DIRECTOR: EVITA ALICEA MD Hepatitis B Core Antibody NON-REACTI VE Nonreactive [facility] Comment:For additional infor mation, please refer tohttp://[employer]/faq/BYE133(This link is being provided for informational/educational purposes only.)THIS TEST PERFORMED AT:[facility] [place], [place] [address], [place] [phone] DIRECTOR: EVITA ALICEA MD Hepatitis C Antibody NON-REACTI VE Nonreactive [facility] Comment:HCV antibody was non -reactive. There is no laboratoryevidence of HCV infection.In most cases, no further action is required. However,if recent HCV exposure is suspected, a test for HCV RNA(test code 80920) is suggested.For additional information please refer tohttp://[employer]/faq/SJQ25z0(This link is being provided for informational/educational purposes only.)THIS TEST PERFORMED AT:[facility] [address] [phone] 4921LABORATORY DIRECTOR: EVITA ALICEA MD Hepatitis B Surface Ag NON-REACTI VE Negative [facility] Comment:For additional infor mation, please refer tohttp://[employer]/faq/GHX581(This link is being provided for informational/educational purposes only.)THIS TEST PERFORMED AT:[facility] [address] [phone] DIRECTOR: EVITA ALICEA MD Blood 01/26/2024 2:16 PM EDT 01/26/2024 4:08 PM EDT Faith No MD LAB BLOOD ORDERABLES Final Result [facility] [address] [place], [place] [phone] * HIV-1/2 Antigen and Antibodies, Fourth Generation, with Reflexes (01/26/2024 2:16 PM EDT) HIV AB/AG NON-REAC TIVE Nonreactive [facility] Comment:HIV-1 antigen and HI V-1/HIV-2 [...] for this purpose.For additional information please refer tohttp://education.[employer]/faq/FGP477(This link is being provided for informational/educational purposes only.)The performance of this assay has not been clinicallyvalidated in patients less than 2 years old.THIS TEST PERFORMED AT:[facility] [address] [phone] DIRECTOR: EVITA ALICEA MD Blood Venous blood specimen / Unknown 01/26/2024 2:16 PM EDT 01/26/2024 4:08 PM EDT us Faith No MD LAB BLOOD ORDERABLES Final Result [facility] [address] [place] [address] [phone] * (ABNORMAL) Lipid Panel with Reflex to Direct LDL (12/01/2023 1:06 PM EDT) Triglycerides 81 <150 mg/dL [facility] Comment:Desirable Triglyceri de: less than 150 mg/dLBorderline High Triglyceride 150-199 mg/dLHigh Triglyceride: 200-499 mg/dLVery High Triglyceride: greater than or equal to 5OO mg/dL Cholesterol 77 <200 mg/dL [facility] Comment:Desirable Cholestero l: less than 200 mg/dLBorderline High Cholesterol: 200-239 mg/dLHigh Cholesterol: greater than 239 mg/dL LDL Cholesterol Calculated 30 <100 mg/dL [facility] Comment:Desirable LDL: less than 100 mg/dLNear Optimal/Above Optimal LDL: 110- 129 mg/dLBorderline High LDL: 130-159 mg/dLHigh LDL: 160-189 mg/dLVery High LDL: greater than or equal to 190 mg/dL HDL Cholesterol 31(L) >40 mg/dL [facility] Comment:Desirable HDL: great er than 40 mg/dL Note: This HDL assay may give artificially low results in patients with liver disease. Blood 12/01/2023 1:06 PM EDT 12/01/2023 1:11 PM EDT us Faith No MD LAB BLOOD ORDERABLES Final Result [facility] [address] [place] [address] [phone] * HPV mRNA E6/E7 w/Reflex to HPV Genotypes 16, 18/45 (10/13/2023 10:05 AM EDT) HPV nRNA E6/E7 Not Detected Not Detected [facility] Comment:Methodology: Transcr iption-Mediated AmplificationThis assay detects E6/E7 viral messenger RNA (mRNA) from 14high-risk HPV types (16,18,31,33,35,39,45,51,52,56,58,59,66,68).Cervical sources are required for HPV testing.If a vaginal source from a patient who has had atotal hysterectomy with removal of cervix wassubmitted, please contact the testing laboratoryfor alternative testing options.For additional information, please refer tohttp://education.[employer]/faq/UNO663q0(This link if provided for information/educational purposes only.)THIS TEST WAS PERFORMED AT:[facility] [place] [phone] ALICEA MD HPV mRNA E6/E7 TNP [facility] HPV 16 RNA [facility] HPV 18/45 RNA [facility] 10/13/2023 10:0 5 AM EDT 10/14/2023 11:40 AM EDT us Ofelia Haskins CNM LAB CYTOLOGY ORDERABLES F inal Result [facility] [address] [place] [address] [phone] * Pap Smear (10/13/2023 10:05 AM EDT) Swab Cervix uteri structure / Unknown 10/13/2023 10:05 AM EDT 10/14/2023 11:40 AM EDT Narrative [facility] - 11/02/2023 10:48 AM EDT ----- ------- Name: Sarah Dixon ? Age/Sex: 58/F ? : 1965 Unit#: [id number] ?? Attend Dr: OFELIA HASKINS ?Re10/13/23 ?Status: DEP REF ? Location: HO.HHCLNP ? Disch: ? ----- ------- SPEC : [id number] ? RECD: 10/14/23-1140 ? STATUS: ??SOUT ? REQ NUM: [id number] ? NADJA: 10/13/23 ? SUBM DR: OFELIA HASKINS CNM ? ENTERED: ??10/14/23 ?SP TYPE: Pap Smr ?OTHR : ? [...] 66, 69) ? HPV testing performed by [facility], [place], [place]. ??See reference laboratory ?? portion of the EMR for entire report. ?Clinical Information LMP:Post menopausal Previous PAP test:Unk ? Material Received ?? ThinPrep-Cervical ----- ------- Signed (signature on file) Debo Avalos 11/02/23 1048 ? ----- ------- ? END OF REPORT ? us Ofelia Haskins [facility] CYTOLOGY ORDERABLES F inal Result [facility] [address] [place] [phone] * Cologuard?? colon cancer screening (09/17/2023 12:00 PM EDT) Cologuard Result Negative Negative 09/25/19 10:09 AM EDT [facility] (CLIA #:[id number]) Comment: NEGATIVE TEST RESULT. A negative Cologuard [...] cancer. ??Following a negative Cologuard result, the [place] [employer] and U.S. Multi-Society Task Force screening guidelines recommend a Cologuard re-screening interval of 3 years. References: [place] [employer] Guideline for Colorectal Cancer Screening: https://www.cancer.org/cancer/vrguo-zacbdi-yizvvm/julezomyu-svunzrdlo-ozfdole/ac s-rec ommendations.html.; Maxi DK, Robinson CR, Barry TateK, Colorectal Cancer Screening: Recommendations for Physicians and Patients from the U.S. Multi-Society Task Force on Colorectal Cancer Screening , Am J Gastroenterology 2017; 112:6356-6226. TEST DESCRIPTION: Composite algorithmic analysis of stool [...] Manning et al, N Engl J Med 2014;370(14):0906-6497.) Cologuard may produce a false negative or false positive result (no colorectal cancer or precancerous polyp present at colonoscopy follow up). A negative Cologuard test result does not guarantee the absence of CRC or advanced adenoma (pre-cancer). The current Cologuard screening interval is every 3 years. ([place] [employer] and U.S. Multi-Society Task Force). Cologuard performance data in a 10,000 patient pivotal study using colonoscopy as the reference method can be accessed at the following location: www.[employer]/results. Additional description of the Cologuard test process, warnings and precautions can be found at www.cologuard.com. Stool specimen (specimen) 09/17/2023 12:00 PM EDT 09/18/2023 10:51 AM EDT Faith No MD LAB MOLECULAR DIAGNOS TICS ORDERABLES Final Result Performing Organization Address City/[facility]/ZIP Co de Phone Number [facility] (CLIA #:[id number]) [place] [address], * MICROALBUMIN, RANDOM (07/23/2020 9:00 AM EST) [...] Historical Provider HISTORICAL/NON ORDERABLE LABS Final Result Performing Organization Address [facility]/ZIP Co de Phone Number [facility] [address] from Last 3 Months or Most Recently Relevant to Health Maintenance [place] [place] [address] C[place] [employer] [employer] [place] AD[place] Care Teams Credit Card Interviewer Relationship Specialty Start Date End Date Faith Mason MD [address] [place] [id number] PCP - General Family Medicine 04/12/19 Linda Peralta Television TechnicianSupervisor Instrument Maintenance 06/08/24
--- OUTSIDE RECORDS SUMMARY | 2024-07-27 09:08 | XMS_ITS | Encounter Summary ---
Author Organization [facility] Address [address] [place] [phone] Phone Care Team Providers Care Diamond Saw Operator Name Role Phone Ines Zamora MD Primary Care Provider Encounter Details Date Type Department Care Team (Late st Contact Info) Description 07/06/2024 Treatment [facility] [address] [phone] Sweetie Pandey MD [facility] [phone] Social History Tobacco Use Types [...] care for end stage renal disease. Attending Party Plan Dealer: SWEETIE PANDEY MD Dialysis Location: [facility] Schedule: Shift: 2 ADEQUACY ASSESSMENT [...] on filedocumented in this encounter Care Teams Diamond Saw Operator Relationship Specialty Start Date End Date Ines Zamora MD [address] [place] [phone] PCP - General 06/04/20 documented as of this encounter
--- OUTSIDE RECORDS SUMMARY | 2024-07-27 09:08 | XMS_ITS | Encounter Summary ---
Author Organization [facility] Address [address] [place] [phone] Phone Care Team Providers Care Dairy Supplies Sales Representative Name Role Phone Ines Zamora MD Primary Care Provider [phone] Encounter Details Date Type Department Care Team (Late st Contact Info) Description 07/13/2024 Orders Only [facility]. [address] [phone] Jeffy Tineo MD [address] [phone] Social History Tobacco Use Types [...] in this encounter Results * (ABNORMAL) Hemoglobin (07/20/2024 3:00 AM EST) Hgb 10.2(L) 11.2 - 15.7 g/dL [facility] Hemoglobin x 3 30.6(L) 33.6 - 47.1 g/dL [facility] 07/20/2024 3:00 AM EST 07/21/2024 12:09 PM EST Jeffy Tineo MD LAB BLOOD ORDERABLES Final Re sult Performing Organization Address [facility] Co de Phone Number [facility] [address] [place] [address] * (ABNORMAL) Hemoglobin (07/18/2024 3:00 AM EST) Hgb 9.8(L) 11.2 - 15.7 g/dL [facility] Hemoglobin x 3 29.4(L) 33.6 - 47.1 g/dL [facility] 07/18/2024 3:00 AM EST 07/19/2024 12:28 PM EST Jeffy Tineo MD LAB BLOOD ORDERABLES Final Re sult Performing Organization Address [facility] de Phone Number [facility] [address] [place] [address] * (ABNORMAL) Hemoglobin and hematocrit (07/13/2024 3:00 AM EST) Hgb 9.6(L) 11.2 - 15.7 g/dL [facility] Hematocrit 29.8(L) 34.1 - 44.9 % [facility] Hemoglobin x 3 28.8(L) 33.6 - 47.1 g/dL [facility] 07/13/2024 3:00 AM EST 07/15/2024 12:51 PM EST Jeffy Tineo MD LAB BLOOD ORDERABLES Final Re sult Performing Organization Address [facility] Co de Phone Number [facility] [address] [place] [address] documented in this encounter Visit Diagnoses Not on filedocumented in this encounter Care Teams Dairy Supplies Sales Representative Relationship Specialty Start Date End Date Ines Zamora MD [address] [place] [phone] PCP - General 06/04/20 documented as of this encounter
--- OUTSIDE RECORDS SUMMARY | 2024-07-27 09:08 | XMS_ITS | Encounter Summary ---
Author Organization [employer] Address [address] [place] [address] [address] [place] [address] Care Team Providers Care Digital Circuit Designer Name Role Phone Faith Mason MD Primary Care Provide r Reason for Visit * Reason Comments Med Refill Encounter Details Date Type Department Care Team (Late st Contact Info) Description 07/23/[address] [facility] [address] [place], [place] [phone] Faith Mason MD [address] [place], [place] [phone] Constipation, unspecified constipation type Social History Tobacco Use Types Packs/Day [...] Description 07/29/2024 2:15 PM EST Office Visit [facility] MED[facility]INE [address] [place] [phone] Kay Mackay MD [address] [place] [phone] 08/23/2024 2:00 PM EDT Office Visit [facility] [address] [place] [address] Faith Mason MD [address] [place] [address] 09/20/2024 3:00 PM EDT Office Visit [facility] ADULT DENTAL [address] [place] [phone] Karen Shannon [address] [place] [address] documented as of this encounter Visit Diagnoses Diagnosis Constipation, unspecified constipation type documented in this encounter Additional Health Concerns Assessment Noted Time PHQ-9 Depression Total Score: 6 11/24/19 24 2:35 PM EDT documented as of this encounter Care Teams Digital Circuit Designer Relationship Specialty Start Date End Date Faith Mason MD [address] [place] [address] PCP - General Family Medicine 04/12/19 Linda Peralta Wool Fleece SorterRelief Map Modeler 06/08/24 documented as of this encounter
--- OUTSIDE RECORDS SUMMARY | 2024-07-27 09:08 | XMS_ITS | Encounter Summary ---
Author Organization [employer] Address [address] [facility] [address] [place] [address] Care Team Providers Care Wire Tinner Name Role Phone Faith Mason MD Primary Care Provide r Encounter Details Date Type Department Care Team ([facility] st Contact Info) Description 07/17/2023 Telephone [facility] [address] [place], [place] [phone] Faith Mason MD [address] [place], [place] [phone] Social History Tobacco Use Types Packs/Day Years [...] PM EST Office Visit [facility] [address] [place] [phone] Kay Mackay MD [address] [place] [address] 08/23/2024 2:00 PM EDT Office Visit [facility] [address] [place] [address] Faith Mason MD [address] [place] [address] 09/20/2024 3:00 PM EDT Office Visit [facility] ADULT DENTAL [address] [place] [address] Karen Shannon [address] [place] [address] documented as of this encounter Visit Diagnoses Not on filedocumented in this encounter Additional Health Concerns Assessment Noted Time PHQ-9 Depression Total Score: 14 023 2:21 PM EDT documented as of this encounter Care Teams Wire Tinner Relationship Specialty Start Date End Date Faith Mason MD [address] [place] [phone] PCP - General Family Medicine 04/12/19 Linda Peralta Commercial Shrimping CaptainMeter Inspector 06/08/24 documented as of this encounter
--- OUTSIDE RECORDS SUMMARY | 2024-07-27 09:08 | XMS_ITS | Encounter Summary ---
Author Organization [email or web address] Address [address] [place] [address] [address] [place] [address] Care Team Providers Care Ammonia Worker Name Role Phone Faith Mason MD Primary Care Provide r Reason for Visit * Reason Comments Med Change Request Encounter Details Date Type Department Care Team (Late Contact Info) Description 11/28/2022 Refill [facility] [address] [place], [place] [phone] Faith Mason MD [address] [place] [address] Type 2 diabetes mellitus with hyperglycemia, with long-term current use of insulin ([facility]) Social History Tobacco Use Types Packs/Day [...] Description 07/29/2024 2:15 PM EST Office Visit [facility] MED[facility] [address] [place] [address] Kay Mackay MD [address] [place] [address] 08/23/2024 2:00 PM EDT Office Visit [facility] [address] [place] [address] Faith Mason MD [address] [place], [place] [phone] 09/20/2024 3:00 PM EDT Office Visit [facility] ADULT DENTAL [address] [place], [place] [phone] Jacob Shannonaris [address] [place], [place] [phone] documented as of this encounter Visit Diagnoses Diagnosis Type 2 diabetes mellitus with hyperglycemia, with long-term current use of insulin ([facility]) documented in this encounter Additional Health Concerns Assessment Noted Time PHQ-9 Depression Total Score: 14 023 2:21 PM EDT documented as of this encounter Care Teams Ammonia Worker Relationship Specialty Start Date End Date Faith Mason MD [address] [place] [address] [phone] PCP - General Family Medicine 04/12/19 Linda Peralta Manager UnixGrinding Machine Operator Portable 06/08/24 documented as of this encounter
--- NOTE | 2024-07-27 09:27 | PM.PROC ---
Brief Operative Note Date of procedure: 07/27/24 Pre-op diagnosis: left mid 2.1 cm thyroid nodule FNA biopsy Post-op diagnosis: same Procedure: THYROID FINE NEEDLE ASPIRATION PROCEDURE NOTE ? PROCEDURE PERFORMED: Ultrasound-guided FNA of thyroid nodule ? OPERATORS: Dr. Therese Bateman ? INDICATION: left mid 2.1 cm thyroid nodule ; FNA performed to assess for malignancy ? DESCRIPTION OF PROCEDURE: The indications for FNA (to assess for malignancy) were reviewed with the patient in detail. Potential complications (e.g., bleeding, infection, damage to local structures, absence of clear diagnosis after FNA) were reviewed. Alternatives to FNA including conservative observation or surgery were described. The patient understood and agreed to proceed. This was documented by the signing of the written informed consent form. A time-out was performed to confirm the patient's identity and the site of planned FNA. The nodule of interest was identified using ultrasound (14 MHz linear array probe). The site of FNA was then draped in the usual fashion and carefully cleaned and prepared using alcohol swabs. The skin and subcutaneous tissue at the previously-identified site of needle insertion were anesthetized using 0.9 cc of 1% lidocaine solution.] [Local anesthesia was offered but declined by the patient. or The skin at the previously-identified site of needle insertion was iced and sprayed with numbing spray. Under ultrasound guidance, _5_ passes were performed using a 1.5-inch, 25-gauge needle, and sample was obtained via capillary action. The needle tip was clearly visualized to be within the nodule at the time of sampling for _3 of _5_ passes The patient tolerated the procedure well. There were no immediate complications. A small adhesive bandage was applied, and the patient was advised to take acetaminophen (rather than NSAIDs) for any discomfort and to report any signs of inflammation/infection or marked swelling. IMPRESSION: Technically successful ultrasound-guided fine needle aspiration of left mid 2.1 cm thyroid nodule . PLAN: The patient was advised that I will provide follow-up regarding the cytology result and any subsequent plans. Therese Bateman MD Endocrinology Attending Condition: stable Disposition: same day
== END 2024-07-27 08:33 | disposition home or self-care (01) ==
LOC: HO.US 08:32
PROVIDERS: PCP Internal Medicine; Visit Provider Student in an Organized Health Care Education/Training Program
DX: E04.2 Nontoxic multinodular goiter (principal); R77.8 Other specified abnormalities of plasma proteins
CPT/HCPCS: 10005; 88173; 88305

== ENCOUNTER → 2024-07-27 08:32 | Outpatient (BNV) | payer MEDICAID, SELFPAY | PROVIDERS: PCP Internal Medicine; Visit Provider Student in an Organized Health Care Education/Training Program | DX: E04.1 Nontoxic single thyroid nodule (principal) | CPT/HCPCS: 10005 ==

== ENCOUNTER 2024-08-10 14:47 | Outpatient (AMB) | payer MEDICAID, SELFPAY ==
[2024-08-10 14:52] VITALS: BP 114/54; PULSE 70; O2SAT 96; BMI 38.0
--- NOTE | 2024-08-10 14:52 | A.OFFVIS_ITS ---
Vital Signs 3 08/10/24 14:52 Height 5 ft 3 in Weight 214 lb 8.156 oz BMI 38.0 BP 114/54 L Blood Pressure Location Rt brachial Position Sitting Pulse 70 Pulse Source Pulse Oximeter Pulse Oximetry (%) 96 Oxygen Delivery Method Room Air Intake Visit Reasons: Biopsy f/u Intake Note: Patient present today for biopsy results. Programming Instructor Required: Yes Programming Instructor Language: Road Mender Services: Programming Instructor Offered & Declined Accompanied by: Significant Other Allergies No Known Allergies Allergy (Verified 08/10/24 14:57) HPI Comments Details: 59-year-old female coming in today for follow up of nontoxic multinodular goiter. She also has past medical history significant for type 2 diabetes mellitus, hypertension, hyperlipidemia, hypothyroidism, ESRD. She follows with Jenn Smith APRN in our department for type 2 DM , last visit 07/19/24. This was not addressed today. HPI from prior visit Patient had a CT cervical spine 08/02/2023 which identified a 1.5 cm nodule in the left thyroid lobe. Subsequently thyroid ultrasound done 03/08/2024 showed a left midpole nodule 2.1 cm in the maximum dimension solid, hypoechoic TR 4 category. I reviewed the images myself. Another subcentimeter left upper pole cyst noted. Patient has a history of hypothyroidism on levothyroxine 25 mcg daily, last TSH from January 2024 was normal. Patient currently denies heat or cold intolerance, diarrhea or constipation, hair loss, palpitation, anxiety, weight changes, mood changes, , changes in appearance of eyes or vision changes, tremors, increased diaphoresis or dry skin. ? Complains of intermittent dysphagia. Patient denies pain on swallowing or difficulty breathing. Reports some voice hoarsness. Patient denies any history of childhood neck radiation. Denies having ever used lithium, amiodarone or biotin supplements. Patient denies any family history of thyroid cancer or thyroid disease. Never smoker Interval history 07/27/2024: Underwent FNA biopsy of the left midpole 2.1 cm nodule which came back as nondiagnostic, Boswell category 1. Physical exam General: sitting comfortably in no acute distress HEENT: normocephalic/atraumatic, moist oral mucosa Neck: bruise on neck Cardiac: normal heart sounds Pulm: normal breath sounds B/L, no added breath sounds Abd: not distended, no tenderness Extremities: no edema, no signs of myxedema Neuro: AAO x3, Speech: normal, no facial droop, moving all 4 extremities Laboratory Tests 01/26/24 14:16 TSH 2.25 US THYROID 03/08/24 CLINICAL INFORMATION: Nodules on CT. COMPARISON: CT cervical spine 08/02/2023. TECHNIQUE: Linear transducer grayscale and color Doppler examination with attention to the region of the thyroid. FINDINGS: SIZE: Measurements of the thyroid lobes and nodules are given in sagittal, anteroposterior and transverse dimensions respectively. Right Thyroid Lobe: 5.6 x 1.6 x 1.6 cm, volume 7.6 mL. Parenchyma: The gland echotexture is homogeneous. Thyroid vascularity is normal. Left Thyroid Lobe: 4.6 x 1.7 x 2.2 cm, volume 8.7 mL. Parenchyma: The gland echotexture is homogeneous. Thyroid vascularity is normal. Isthmus: 0.2 cm in maximum AP dimension. Estimated total number of nodules greater than or equal to 1 cm: 1. Project Landscape Architect nodules are described as follows: 1. Location: Left mid pole. Size: 2.1 x 1.3 x 1.4 cm, volume 1.91 mL. Nodule characteristics: Composition: Solid (2). Echogenicity: Hypoechoic (2). Shape: Not taller than wide (0). Margins: Smooth (0). Echogenic Foci: None (0). ACR TI-RADS total points: 4 ACR TI-RADS category: 4 2. Location: Left upper pole. Size: 0.3 x 0.3 x 0.4 cm, volume 0.02 mL. Nodule characteristics: Composition: Cystic(0). ACR TI-RADS total points: 0 ACR TI-RADS category: 1 NODES: No lymphadenopathy is seen in the tissue surrounding the thyroid gland. US/US thyroid IMPRESSION: 2.1 cm left mid pole nodule meets criteria for biopsy. CT HEAD WITHOUT CONTRAST 08/02/23 CT CERVICAL SPINE WITHOUT CONTRAST CLINICAL INFORMATION: Fall. Patient on Eliquis. Pain. COMPARISON: CT head and cervical spine from 11/07/2020. TECHNIQUE: Contiguous axial imaging was performed from the skull base to vertex without intravenous administration of contrast. Contiguous axial imaging was performed from the upper chest through the skull base without intravenous administration of contrast. Coronal and sagittal reformats were obtained at the acquisition workstation. This CT examination was performed using dose optimization techniques as appropriate, variously including the following: *Automated exposure control. *Adjustment of mA and/or kV according to patient size (this includes techniques or standardized protocols for targeted exams where dose is matched to indication/reason for exam; i.e. extremities or head). *Use of iterative reconstruction technique. DLP: 1395 mGy-cm FINDINGS: Head: There is no evidence of acute intracranial hemorrhage or edematous territorial infarction. Perea-white matter differentiation is preserved. A few foci of hypoattenuation in the periventricular and deep white matter are consistent with mild microangiopathy. Proportional prominence of the ventricles and sulcal spaces without evidence of obstructive hydrocephalus. No abnormal mass effect or midline shift. No extra-axial fluid collections. No acute soft tissue or osseous abnormalities. Mild mucosal thickening of the paranasal sinuses. The mastoid air cells and middle ear cavities are clear. Cervical Spine: The atlantooccipital and atlantoaxial articulations remain well aligned. Straightening of the normal cervical lordosis. Otherwise, there is anatomic alignment of the vertebral bodies and posterior elements. No evidence of acute fracture or subluxation. The vertebral body heights are maintained. Advanced degenerative disc disease at T1-T2. Moderate degenerative disc disease from C3-C7 with prominent disc-osteophyte complex formation. There appear to be moderate disc herniations at C3-C4 and C4-C5 leading to at least moderate spinal canal stenoses at these levels. Facet and uncovertebral joint arthropathy leads to osseous encroachment on the neural foramina from C4-C6. Moderately prominent bridging anterior osteophytosis from C3-C6. Partially mineralized material inferior to the atlantodental articulation as may be seen with calcific tendinosis. There is no prevertebral soft tissue swelling. There is a 1.5 cm hypoattenuating nodule in the left thyroid lobe. The remaining cervical soft tissues are within normal limits. The lung apices demonstrate no abnormalities. CT/CT head/brain wo IV con IMPRESSION: 1. No evidence of acute intracranial hemorrhage or edematous territorial infarction. Mild underlying microangiopathy and generalized cerebral volume loss. 2. No evidence of acute fracture or traumatic subluxation of the cervical spine. 3. Moderate multilevel degenerative spondyloarthropathy of the cervical spine. Most notably on this limited exam without intrathecal contrast, there appear to be moderate spinal canal stenoses at C3-C4 and C4-C5. 4. There is a 1.5 cm nodule in the left thyroid lobe. Recommend further characterization with thyroid ultrasound. FOR[facility]LY [facility], [facility] Medical History Non-toxic multinodular goiter Chronic kidney disease with end stage renal failure on dialysis 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 Uncontrolled type 2 diabetes mellitus with hyperglycemia, with long-term current use of insulin Hidradenitis suppurativa Pneumonia Type 2 diabetes mellitus with hyperglycemia Paroxysmal atrial flutter Dysphonia Chronic cough Urinary frequency Dyspnea on exertion Unstable gait Asthma Chronic low back pain without sciatica Osteoarthritis of both knees Kidney stones Depression MAARJIT (obstructive sleep apnea) Normocytic anemia ESRD needing dialysis CHF (congestive heart failure) Obesity due to excess calories CAD (coronary artery disease) GERD (gastroesophageal reflux disease) Thyroid disease AV fistula HLD (hyperlipidemia) ESRD (end stage renal disease) T2DM (type 2 diabetes mellitus) End stage renal disease on dialysis Dialysis patient Renal failure (ARF), acute on chronic HTN (hypertension) Surgical History History of cardiac cath History of kidney surgery Hx of cholecystectomy Hx of bone graft Family History Father CVD (cardiovascular disease) Diabetes Mother Diabetes Sister Stomach cancer Social History Household Members: Spouse Household Members Other:: , brother, uncles Housing: House Do you presently have visiting nurse or other home services: Yes Unable to assess alcohol history related to: Unknown Alcohol intake: never Patient Tobacco Use Status: Never used Tobacco Advance Directives Date on File: 02/15/21 service: No Current occupational status: disabled Current occupation: right hand dominant Physical Exam Vital Signs: BMI result Body Mass Index 38.0 Assessment & Plan Assessment & Plan (1) Non-toxic multinodular goiter: Code(s): E04.2 - Nontoxic multinodular goiter Category: Medical Plan: 59-year-old female with no family history of thyroid cancer with no personal history of head or neck radiation who is coming in today to establish care with me for nontoxic multinodular goiter. She has also seen for type 2 diabetes mellitus in our department, this was not addressed today. Patient had a CT cervical spine 08/02/2023 which identified a 1.5 cm nodule in the left thyroid lobe. Subsequently thyroid ultrasound done 03/08/2024 showed a left midpole nodule 2.1 cm in the maximum dimension solid, hypoechoic TR 4 category. I reviewed the images myself in this nodule meets criteria for FNA.. Another subcentimeter left upper pole cyst noted. 07/27/2024: Underwent FNA biopsy of the left midpole 2.1 cm nodule which came back as nondiagnostic, Boswell category 1. Explained to the patient that nondiagnostic results yield a 5-20% risk of malignancy with the recommendations of repeat FNA. We will arrange for repeat FNA of the left midpole 2.1 cm nodule in 3 months and patient will follow up with me in clinic thereafter for results and further decision making. Plan: -scheduled for repeat FNA of the left midpole 2.1 cm nodule and follow up 2 weeks after discuss results Plan See above Orders: Orders 2 US biopsy thyroid Today E04.2 - Nontoxic multinodular goiter Coding Level of Care Code Est Pt Level 3 (77425) Diagnoses Non-toxic multinodular goiter E04.2
--- OUTSIDE RECORDS SUMMARY | 2024-08-10 16:58 | XMS_ITS | Encounter Summary ---
Author Organization [employer] Address [address] [place] [address] 7t [place] [address] Care Team Providers Care Chief Digital Media Officer Name Role Phone Faith Mason MD Primary Care Provide r Reason for Visit * Reason Onset Date Comments Durable Medical Equipment 11/05/2023 Encounter Details Date Type Department Care Team ([facility] st Contact Info) Description 11/05/2023 Telephone [facility] MEDICINE [address] [place], [place] [phone] Faith Mason MD [address] [place] [address] Durable Medical Equipment Social History Tobacco Use [...] 11/05/2023 12:47 PM EDT Silver Mckeon at [facility] calling to request the following DME. Shower Chair Shower grab bars Wheel chair Rolator walker with seat documented in this encounter Plan of Treatment Upcoming Encounters Date Type Department Care Team (Late st Contact Info) Description 08/23/2024 2:00 PM EDT Office Visit [facility] MEDICINE [address] [place] [address] Faith Mason MD [address] [place] [address] 09/20/2024 3:00 PM EDT Office Visit [facility] ADULT DENTAL [address] [place] [address] Jacob hSannonaris [address] [place] [address] documented as of this encounter Visit Diagnoses Not on filedocumented in this encounter Additional Health Concerns Assessment Noted Time PHQ-9 Depression Total Score: 14 023 2:21 PM EDT documented as of this encounter Care Teams Chief Digital Media Officer Relationship Specialty Start Date End Date Faith Mason MD [address] [place] [phone] PCP - General Family Medicine 04/12/19 Linda Peralta Landscape GardenerSoftware Sales Consultant 06/08/24 documented as of this encounter
--- OUTSIDE RECORDS SUMMARY | 2024-08-10 16:58 | XMS_ITS | Clinical Summary ---
Author Organization [facility] Address [address] [address] Phone Care Team Providers Care Brush Hand Name Role Phone Ines Zamora MD Primary Care Provider [phone] Medications lisinopril 10 MG tabletIndicatio ns:Stage 3 [...] Encounters Date Type Department Care Team Description 08/08/2024 Treatment [facility] [address] [address] Jeffy Tineo MD End stage renal disease; Dependence on renal dialysis 07/30/2024 Treatment [facility] [address] [address] Alber Rothman MD End stage renal disease; Dependence on renal dialysis 07/27/2024 Treatment [facility] [address] [address] Jeffy Tineo MD End stage renal disease; Dependence on renal dialysis 07/22/2024 Treatment [facility] [address] [address] Jeffy Tineo MD End stage renal disease; Dependence on renal dialysis 07/13/2024 Orders Only [facility] [address] [address] Jeffy Tineo MD 07/06/2024 Treatment [facility] [address] [address] Jeffy Tineo MD 07/04/2024 Treatment [facility] [address] [address] Jeffy Tineo MD 06/27/2024 Treatment [facility] [address] [address] Jeffy Tineo MD 06/24/2024 Treatment [facility] [address] [address] Jeffy Tineo MD 06/22/2024 Treatment [facility] [address] [address] Jeffy Tineo MD 06/17/2024 Treatment [facility] [address] [address] Jeffy Tineo MD 05/27/2024 Treatment [facility] [address] [address] Jeffy Tineo MD 05/24/2024 Treatment [facility] [address] [place] [address] Jeffy Tineo MD from Last 3 Months [...] Procedure Name Priority Date/Time Associated Diagnosis Comments LIH (HC) Routine 08/08/2024 3:00 AM EDT PHOSPHATE ( PHOSPHORUS) Routine 08/08/2024 3:00 AM EDT FERRITIN Routine 07/27/2024 3:00 AM EST TRANSFERRIN SATURATION Routine 3:00 AM EST PROTEIN, TOTAL, SERUM Routine 07/27/2024 3:00 AM EST MAGNESIUM Routine 07/27/2024 3:00 AM EST LIH (HC) Routine 07/27/2024 3:00 AM EST ELECTROLYTE PANEL Routine 07/27/2024 3:0 0 AM EST LACTATE DEHYDROGENASE Routine 07/27/2024 3:00 AM EST CREATININE, SERUM Routine 07/27/2024 3:0 0 AM EST GLUCOSE, RANDOM Routine 07/27/2024 3:00 AM EST BILIRUBIN, TOTAL Routine 07/27/2024 3:00 AM EST AST Routine 07/27/2024 3:00 AM EST ALT Routine 07/27/2024 3:00 AM EST CALCIUM PHOSPHORUS PRODUCT, ADJUSTED (HC) Routine 07/27/2024 3:00 AM EST ALKALINE PHOSPHATASE Routine 07/27/2024 3:00 AM EST CBC AND DIFFERENTIAL Routine 07/27/2024 3:00 AM EST KT/V NATURAL LOG, URR (HC) Routine 07/27/2024 3:00 AM EST HEMOGLOBIN Routine 07/20/2024 3:00 AM EST HEMOGLOBIN [...] EST POTASSIUM Routine 05/13/2024 3:00 AM EST from Last 3 Months Results * LIH (08/08/2024 3:00 AM EDT) Only the most recent of6 resultswithin the time period is included. Lipemia Normal Normal [facility] Icterus Normal Normal [facility] Hemolysis Normal Normal [facility] 08/08/2024 3:00 AM EDT 08/09/2024 12:11 PM EDT us Jeffy Tineo MD LAB [id number] SOLICITED RESULTS Final Result Performing Organization Address [facility]/ZIP Co de Phone Number [facility]PS [facility] [address] [place] [address] * (ABNORMAL) Phosphorus (08/08/2024 3:00 AM EDT) Only the most recent of2 resultswithin the time period is included. Phosphorus, Serum 5.4(H) 2.5 - 5.0 mg/dL [facility] 08/08/2024 3:00 AM EDT 08/09/2024 12:11 PM EDT Jeffy Tineo MD LAB BLOOD ORDERABLES Final Re sult Performing Organization Address [facility]/ZIP Co de Phone Number [facility] [address] [place] [address] * (ABNORMAL) Kt/V Natural Log, URR (07/27/2024 3:00 AM EST) Only the most recent of3 resultswithin the time period is included. Treatment Time 217 min [facility] Pre-Weight, lb 100.2 kg [facility] Post-Weight, lb 97.1 kg [facility] Ultrafiltration Rate 9 <=13 mL/kg/hr [facility] Comment: Recommend achieving Ultrafiltration Rate (UFR) <=10 mL/kg/hr References: Charley TODD et al. Kidney Int. 2010; 79(2):250-257 BUN 72(H) 7 - 25 mg/dL [facility] BUN Post Dialysis 22 7 - 25 mg/dL [facility] UREA REDUCTION RATIO (%) 69 >=65 % [facility] Kt/V Natural Log 1.38 >=1.2 [facility] 07/27/2024 3:00 AM EST 07/28/2024 2:35 PM EST Jeffy Tineo MD LAB [id number] SOLICITED RESULTS Final Result Performing Organization Address [facility] de Phone Number [facility] [address] [place] [address] * (ABNORMAL) Calcium Phosphorus Product, Adjusted (07/27/2024 3:00 AM EST) Only the most recent of3 resultswithin the time period is included. Albumin 4.3 3.6 - 5.4 g/dL [facility] Calcium 10.0 8.6 - 10.3 mg/dL [facility] Phosphorus, Serum 6.3(H) 2.5 - 5.0 mg/dL [facility] Ca*PO4 63.0(A) <55.0 mg2/dL2 [facility] Calcium, Adjusted Total 10.0 8.6 - 10.3 mg/dL [facility] CA*PO4 CORRCTD 63.0(A) <55.0 mg2/dL2 [facility] 07/27/2024 3:00 AM EST 07/28/2024 2:47 PM EST Jeffy Tineo MD LAB [id number] SOLICITED RESULTS Final Result Performing Organization Address [facility] de Phone Number [facility] [address] [place] [address] * (ABNORMAL) TSAT (07/27/2024 3:00 AM EST) Only the most recent of3 resultswithin the time period is included. Iron 69 50 - 170 ug/dL [facility] Transferrin 203(L) 250 - 380 mg/dL [facility] TIBC 284 211 - 406 ug/dL [facility] Iron Saturation (TSat) 24 22 - 52 % [facility] 07/27/2024 3:00 AM EST 07/28/2024 2:47 PM EST Jeffy Tineo MD LAB BLOOD ORDERABLES Final Re sult Performing Organization Address City/[facility]/ZIP Co de Phone Number [facility] [address] [place] [address] * (ABNORMAL) CBC and Differential (07/27/2024 3:00 AM EST) Only the most recent of3 resultswithin the time period is included. DIFFERENTIAL MANUAL, 2 Not Indicated [facility] White Blood Cells 9.1 4.0 - 10.0 K/uL [facility] RBC 3.34(L) 3.93 - 5.22 M/uL [facility] Hgb 10.7(L) 11.2 - 15.7 g/dL [facility] Hemoglobin x 3 32.1(L) 33.6 - 47.1 g/dL [facility] Hematocrit 33.0(L) 34.1 - 44.9 % [facility] MCV 98.8(H) 79.4 - 94.8 fL [facility] MCH 32.0 25.6 - 32.2 pg [facility] MCHC 32.4 32.2 - 35.5 g/dL [facility] Platelets 187 182 - 369 K/uL [facility] RDW 14.7(H) 11.7 - 14.4 % [facility] Neutrophils Relative 72.1(H) 34.0 - 71.1 % [facility] Lymphocytes Relative 16.0(L) 19.3 - 51.7 % [facility] Monocytes 6.1 4.7 - 12.5 % [facility] Eosinophils Relative 4.2 0.7 - 5.8 % [facility] Basophils Relative 0.7 0.1 - 1.2 % [facility] Immature Granulocytes 0.9 0.0 - 1.0 % [facility] 07/27/2024 3:00 AM EST 07/28/2024 2:44 PM EST Jeffy Tineo MD LAB BLOOD ORDERABLES Final Re sult Performing Organization Address [facility]/ZIP Co de Phone Number [facility] [address] [place] [address] * ALT (07/27/2024 3:00 AM EST) Only the most recent of3 resultswithin the time period is included. ALT (SGPT) 16 10 - 49 U/L [facility] 07/27/2024 3:00 AM EST 07/28/2024 2:47 PM EST Jeffy Tineo MD LAB BLOOD ORDERABLES Final Re sult Performing Organization Address [facility] Co de Phone Number [facility] [address] [place] [address] * AST (07/27/2024 3:00 AM EST) Only the most recent of3 resultswithin the time period is included. AST (SGOT) 13 <34 U/L [facility] 07/27/2024 3:00 AM EST 07/28/2024 2:47 PM EST Jeffy Tineo MD LAB BLOOD ORDERABLES Final Re sult Performing Organization Address [facility] de Phone Number [facility] [address] [place] [address] * Protein, total (07/27/2024 3:00 AM EST) Only the most recent of3 resultswithin the time period is included. Total Protein 7.4 6.4 - 8.9 g/dL [facility] 07/27/2024 3:00 AM EST 07/28/2024 2:47 PM EST Jeffy Tineo MD LAB BLOOD ORDERABLES Final Re sult Performing Organization Address [facility] de Phone Number [facility] [address] [place] [address] * Alkaline phosphatase (07/27/2024 3:00 AM EST) Only the most recent of3 resultswithin the time period is included. Alkaline Phosphatase 115 46 - 116 U/L [facility] 07/27/2024 3:00 AM EST 07/28/2024 2:47 PM EST Jeffy Tineo MD LAB BLOOD ORDERABLES Final Re sult Performing Organization Address [facility] Phone Number [facility] [address] [place] [address] * Magnesium (07/27/2024 3:00 AM EST) Only the most recent of3 resultswithin the time period is included. Magnesium 2.4 1.9 - 2.7 mg/dL [facility] 07/27/2024 3:00 AM EST 07/28/2024 2:47 PM EST Jeffy Tineo MD LAB BLOOD ORDERABLES Final Re sult Performing Organization Address [facility] Phone Number [facility] [address] [place] [address] * Lactate dehydrogenase (07/27/2024 3:00 AM EST) Only the most recent of3 resultswithin the time period is included. LDH 242 120 - 246 U/L [facility] 07/27/2024 3:00 AM EST 07/28/2024 2:47 PM EST Jeffy Tineo MD LAB BLOOD ORDERABLES Final Re sult Performing Organization Address [facility] Phone Number [facility] [address] [place] [address] * (ABNORMAL) Glucose, random (07/27/2024 3:00 AM EST) Only the most recent of3 resultswithin the time period is included. Glucose 259(H) 74 - 109 mg/dL [facility] 07/27/2024 3:00 AM EST 07/28/2024 2:47 PM EST Jeffy Tineo MD LAB BLOOD ORDERABLES Final Re sult [facility] [address] [place] [address] * (ABNORMAL) Ferritin (07/27/2024 3:00 AM EST) Only the most recent of3 resultswithin the time period is included. Ferritin 1,250(H) 10 - 291 ng/mL [facility] 07/27/2024 3:00 AM EST 07/28/2024 2:47 PM EST Jeffy Tineo MD LAB BLOOD ORDERABLES Final Re sult Performing Organization Address [facility] de Phone Number [facility] [address] [place] [address] * (ABNORMAL) Creatinine, serum (07/27/2024 3:00 AM EST) Only the most recent of3 resultswithin the time period is included. Creatinine 8.75(H) 0.55 - 1.02 mg/dL [facility] 07/27/2024 3:00 AM EST 07/28/2024 2:47 PM EST Jeffy Tineo MD LAB BLOOD ORDERABLES Final Re sult Performing Organization Address [facility] de Phone Number [facility] [address] [place] [address] * Bilirubin, total (07/27/2024 3:00 AM EST) Only the most recent of3 resultswithin the time period is included. Total Bilirubin 0.5 0.3 - 1.2 mg/dL [facility] 07/27/2024 3:00 AM EST 07/28/2024 2:47 PM EST Jeffy Tineo MD LAB BLOOD ORDERABLES Final Re sult Performing Organization Address [facility] Co de Phone Number [facility] [address] [place] [address] * (ABNORMAL) Electrolyte panel (07/27/2024 3:00 AM EST) Only the most recent of3 resultswithin the time period is included. Sodium 134(L) 136 - 145 mEq/L [facility] Potassium 5.4(H) 3.4 - 5.0 mEq/L [facility] Chloride 95(L) 98 - 107 mEq/L [facility] Bicarbonate (CO2) 24 21 - 31 mEq/L [facility] Anion Gap 15(H) 3 - 14 mEq/L [facility] 07/27/2024 3:00 AM EST 07/28/2024 2:47 PM EST Jeffy Tineo MD LAB BLOOD ORDERABLES Final Re sult Performing Organization Address [facility] Co de Phone Number [facility] [address] [place] [address] * (ABNORMAL) Hemoglobin (07/20/2024 3:00 AM EST) Only the most recent of3 resultswithin the time period is included. Hgb 10.2(L) 11.2 - 15.7 g/dL [facility] Hemoglobin x 3 30.6(L) 33.6 - 47.1 g/dL [facility] 07/20/2024 3:00 AM EST 07/21/2024 12:09 PM EST Jeffy Tineo MD LAB BLOOD ORDERABLES Final Re sult Performing Organization Address [facility] Co de Phone Number [facility] [address] [place] [address] * (ABNORMAL) Hemoglobin and hematocrit (07/13/2024 3:00 AM EST) Only the most recent of6 resultswithin the time period is included. Hgb 9.6(L) 11.2 - 15.7 g/dL [facility] Hematocrit 29.8(L) 34.1 - 44.9 % [facility] Hemoglobin x 3 28.8(L) 33.6 - 47.1 g/dL [facility] 07/13/2024 3:00 AM EST 07/15/2024 12:51 PM EST Jeffy Tineo MD LAB BLOOD ORDERABLES Final Re sult Performing Organization Address [facility] de Phone Number [facility] [address] [place] [address] * PTH, Intact (06/29/2024 3:00 AM EST) [...] ORDERABLES Final Re sult Performing Organization Address [facility] de Phone Number [facility] [address] [place] [address] * Collection Date (06/24/2024 3:00 AM EST) Collection Date See Comment [facility] Comment: Patient sample received may exceed specimen stability, based on the collection date electronically provided. ??When reviewing patient results, verify collection information and consider specimen stability before acting on any critical or panic results. 06/24/2024 3:00 AM EST Jeffy Tineo MD LAB [id number] SOLICITED RESULTS Final Result Performing Organization Address [facility] de Phone Number [facility] [address] [place] [address] * Calcium, Adjusted w Albumin (06/17/2024 3:00 AM EST) Calcium 10.0 8.6 - 10.3 mg/dL [facility] Albumin 4.2 3.6 - 5.4 g/dL [facility] Calcium, Adjusted Total 10.0 8.6 - 10.3 mg/dL [facility] 06/17/2024 3:00 AM EST 06/18/2024 2:10 PM EST Jeffy Tineo MD LAB BLOOD ORDERABLES Final Re sult Performing Organization Address [facility] Co de Phone Number [facility] [address] [place] [address] * Confirmation Test HCV (06/01/2024 3:00 AM EST) Hep C Ab Confirmation Not needed [facility] 06/01/2024 3:00 AM EST 06/02/2024 1:33 PM EST Jeffy Tineo MD LAB BLOOD ORDERABLES Final Re sult Performing Organization Address [facility] de Phone Number [facility] [address] [place] [address] * HEPATITIS C ABS W/REFLEX RNA DETECTR (06/01/2024 3:00 AM EST) Pathologist [facility] Hep C Virus Ab Non-Reacti ve Non-Reacti ve [facility] 06/01/2024 3:00 AM EST 06/02/2024 2:21 PM EST Jeffy Tineo MD LAB [id number] SOLICITED RESULTS Final Result Performing Organization Address [facility] de Phone Number [facility] [address] [place] [address] * Aluminum level (06/01/2024 3:00 AM EST) Aluminum 4 1 - 20 ug/L [facility] 06/01/2024 3:00 AM EST 06/02/2024 2:46 PM EST Jeffy Tineo MD LAB BLOOD ORDERABLES Final Re sult Performing Organization Address [facility] de Phone Number [facility] [address] [place] [address] * Vitamin D 25 Hydroxy (06/01/2024 3:00 AM EST) Vitamin D, 25-Hydroxy 48 30 - 100 ng/mL [facility] Comment: Status ? Adult ?? Pediatric Deficient: ? <20 ? <15 Insufficient: ??20-29 ?? 15-19 Sufficient: ?30-100 ??20-100 06/01/2024 3:00 AM EST 06/02/2024 2:21 PM EST Jeffy Tineo MD LAB BLOOD ORDERABLES Final Re sult Performing Organization Address [facility] de Phone Number [facility] [address] [place] [address] * Hepatitis B Surface Antibody (06/01/2024 3:00 AM EST) Hep B Surface Antibody 19 mIU/mL [facility] Comment: Interpretation: <10: No Immunity >=10: Probable Immunity 06/01/2024 3:00 AM EST 06/02/2024 2:21 PM EST Jeffy Tineo MD LAB BLOOD ORDERABLES Final Re sult Performing Organization Address [facility] de Phone Number [facility] [address] [place] [address] * Uric Acid (06/01/2024 3:00 AM EST) Uric Acid 6.0 2.3 - 6.6 mg/dL [facility] 06/01/2024 3:00 AM EST 06/02/2024 2:21 PM EST Jeffy Tineo MD LAB BLOOD ORDERABLES Final Re sult Performing Organization Address [facility] de Phone Number [facility] [address] [place] [address] * (ABNORMAL) Hemoglobin A1c (06/01/2024 3:00 AM [...] Final Re sult [facility] [address] [place] [address] * (ABNORMAL) Lipid panel (06/01/2024 3:00 AM [...] ORDERABLES Final Re sult Performing Organization Address [facility] de Phone Number [facility] [address] [place] [address] * Potassium (05/13/2024 3:00 AM EST) Potassium 4.6 3.4 - 5.0 mEq/L [facility] 05/13/2024 3:00 AM EST 05/14/2024 2:41 PM EST Jeffy Tineo MD LAB BLOOD ORDERABLES Final Re sult Performing Organization Address [facility] de Phone Number [facility] [address] [place] [address] from Last 3 Months [place] Care Teams Brush Hand Relationship Specialty Start Date End Date Ines Zamora MD [address] [place] [id number] PCP - General 06/04/20
--- OUTSIDE RECORDS SUMMARY | 2024-08-10 16:58 | XMS_ITS | Encounter Summary ---
Author Organization [employer] Address [address] [place] [address] [address] [place] [address] Care Team Providers Care Manager Programming Name Role Phone Faith Mason MD Primary Care Provide r Reason for Visit * Reason Onset Date Comments telephone call 07/29/2024 Encounter Details Date Type Department Care Team ([facility] st Contact Info) Description 07/29/2024 Telephone [facility] MEDICINE [address] [place], [place] [phone] Faith Mason MD [address] [place] [address] telephone call Social History Tobacco Use Types Packs/Day Years [...] encounter Miscellaneous Notes * Telephone Encounter - Saloni Holguin - 07/29/2024 3:21 PM EST Pt walked in requesting to rs appt from 07/29/24 with derm. documented in this encounter Plan of Treatment Upcoming Encounters Date Type Department Care Team (Late st Contact Info) Description 08/23/2024 2:00 PM EDT Office Visit [facility] MEDICINE [address] [place] [address] Faith Mason MD [address] [place], [place] [phone] 09/20/2024 3:00 PM EDT Office Visit [facility] ADULT DENTAL [address] [place] [address] Karen Shannon [address] [place] [address] documented as of this encounter Visit Diagnoses Not on filedocumented in this encounter Additional Health Concerns Assessment Noted Time PHQ-9 Depression Total Score: 6 11/24/19 24 2:35 PM EDT documented as of this encounter Care Teams Manager Programming Relationship Specialty Start Date End Date Faith Mason MD [address] [place] [address] PCP - General Family Medicine 04/12/19 Linda Peralta [employer] 06/08/24 documented as of this encounter
--- OUTSIDE RECORDS SUMMARY | 2024-08-10 16:58 | XMS_ITS | Encounter Summary ---
Author Organization [facility] Address [address] [address] Phone Care Team Providers Care Corduroy Cutting Supervisor Name Role Phone Ines Zamora MD Primary Care Provider Encounter Details Date Type Department Care Team (Late st Contact Info) Description 07/13/2024 Orders Only [facility]. [address] [id number] Jeffy Tineo MD [address] [phone] Social History Tobacco Use Types [...] Procedure Name Priority Date/Time Associated Diagnosis Comments LI () Routine 08/08/2024 3:00 AM EDT PHOSPHATE ( PHOSPHORUS) Routine 08/08/2024 3:00 AM EDT LIH () Routine 07/27/2024 3:00 AM EST KT/V NATURAL LOG, URR () Routine 07/27/2024 3:00 AM EST CALCIUM PHOSPHORUS PRODUCT, ADJUSTED () Routine 07/27/2024 3:00 AM EST TRANSFERRIN SATURATION Routine 3:00 AM EST CBC AND DIFFERENTIAL Routine 07/27/2024 3:00 AM EST ALT Routine 07/27/2024 3:00 AM EST AST Routine 07/27/2024 3:00 AM EST PROTEIN, TOTAL, SERUM Routine 07/27/2024 3:00 AM EST ALKALINE PHOSPHATASE Routine 07/27/2024 3:00 AM EST MAGNESIUM Routine 07/27/2024 3:00 AM EST LACTATE DEHYDROGENASE Routine 07/27/2024 3:00 AM EST GLUCOSE, RANDOM Routine 07/27/2024 3:00 AM EST FERRITIN Routine 07/27/2024 3:00 AM EST CREATININE, SERUM Routine 07/27/2024 3:0 0 AM EST BILIRUBIN, TOTAL Routine 07/27/2024 3:00 AM EST ELECTROLYTE PANEL Routine 07/27/2024 3:0 0 AM EST HEMOGLOBIN Routine 07/20/2024 3:00 AM EST HEMOGLOBIN Routine 07/18/2024 3:00 AM EST HEMOGLOBIN AND HEMATOCRIT, BLOOD Routine 07/13/2024 3:00 AM EST documented in this encounter Results * [facility] (08/08/2024 3:00 AM EDT) Lipemia Normal Normal [facility] Icterus Normal Normal [facility] Hemolysis Normal Normal [facility] 08/08/2024 3:00 AM EDT 08/09/2024 12:11 PM EDT us Jeffy Tineo MD LAB [id number] SOLICITED RESULTS Final Result Performing Organization Address [facility] de Phone Number [facility]PS [facility] [address] [place] [address] * (ABNORMAL) Phosphorus (08/08/2024 3:00 AM EDT) Phosphorus, Serum 5.4(H) 2.5 - 5.0 mg/dL [facility] 08/08/2024 3:00 AM EDT 08/09/2024 12:11 PM EDT us Jeffy Tineo MD LAB BLOOD ORDERABLES Final Re sult Performing Organization Address [facility] de Phone Number [facility] [address] [place] [address] * (ABNORMAL) Ferritin (07/27/2024 3:00 AM EST) Ferritin 1,250(H) 10 - 291 ng/mL [facility] 07/27/2024 3:00 AM EST 07/28/2024 2:47 PM EST us Jeffy Tineo MD LAB BLOOD ORDERABLES Final Re sult Performing Organization Address [facility] de Phone Number [facility] [address] [place] [address] * (ABNORMAL) TSAT (07/27/2024 3:00 AM EST) Iron 69 50 - 170 ug/dL [facility] Transferrin 203(L) 250 - 380 mg/dL [facility] TIBC 284 211 - 406 ug/dL [facility] Iron Saturation (TSat) 24 22 - 52 % [facility] 07/27/2024 3:00 AM EST 07/28/2024 2:47 PM EST us Jeffy Tineo MD LAB BLOOD ORDERABLES Final Re sult Performing Organization Address [facility] Co de Phone Number [facility] [address] [place] [address] * Protein, total (07/27/2024 3:00 AM EST) Pathologist [facility] Total Protein 7.4 6.4 - 8.9 g/dL [facility] 07/27/2024 3:00 AM EST 07/28/2024 2:47 PM EST Jeffy Tineo MD LAB BLOOD ORDERABLES Final Re sult Performing Organization Address [facility] de Phone Number [facility] [address] [place] [address] * Magnesium (07/27/2024 3:00 AM EST) Pathologist [facility] Magnesium 2.4 1.9 - 2.7 mg/dL [facility] 07/27/2024 3:00 AM EST 07/28/2024 2:47 PM EST Jeffy Tineo MD LAB BLOOD ORDERABLES Final Re sult Performing Organization Address [facility] de Phone Number [facility] [address] [place] [address] * LIH (07/27/2024 3:00 AM EST) Pathologist [facility] Lipemia Normal Normal [facility] Icterus Normal Normal [facility] Hemolysis Normal Normal [facility] 07/27/2024 3:00 AM EST 07/28/2024 2:47 PM EST Jeffy Tineo MD LAB [id number] SOLICITED RESULTS Final Result Performing Organization Address [facility] Co de Phone Number [facility] [address] [place] [address] * (ABNORMAL) Electrolyte panel (07/27/2024 3:00 AM EST) Pathologist [facility] Sodium 134(L) 136 - 145 mEq/L [facility] Potassium 5.4(H) 3.4 - 5.0 mEq/L [facility] Chloride 95(L) 98 - 107 mEq/L [facility] Bicarbonate (CO2) 24 21 - 31 mEq/L [facility] Anion Gap 15(H) 3 - 14 mEq/L [facility] 07/27/2024 3:00 AM EST 07/28/2024 2:47 PM EST Jeffy Tineo MD LAB BLOOD ORDERABLES Final Re sult Performing Organization Address [facility] de Phone Number [facility] [address] [place] [address] * Lactate dehydrogenase (07/27/2024 3:00 AM EST) LDH 242 120 - 246 U/L [facility] 07/27/2024 3:00 AM EST 07/28/2024 2:47 PM EST Jeffy Tineo MD LAB BLOOD ORDERABLES Final Re sult Performing Organization Address [facility] de Phone Number [facility] [address] [place] [address] * (ABNORMAL) Creatinine, serum (07/27/2024 3:00 AM EST) Creatinine 8.75(H) 0.55 - 1.02 mg/dL [facility] 07/27/2024 3:00 AM EST 07/28/2024 2:47 PM EST Jeffy Tineo MD LAB BLOOD ORDERABLES Final Re sult Performing Organization Address [facility] de Phone Number [facility] [address] [place] [address] * (ABNORMAL) Glucose, random (07/27/2024 3:00 AM EST) Glucose 259(H) 74 - 109 mg/dL [facility] 07/27/2024 3:00 AM EST 07/28/2024 2:47 PM EST us Jeffy Tineo MD LAB BLOOD ORDERABLES Final Re sult Performing Organization Address [facility] de Phone Number [facility] [address] [place] [address] * Bilirubin, total (07/27/2024 3:00 AM EST) Total Bilirubin 0.5 0.3 - 1.2 mg/dL [facility] 07/27/2024 3:00 AM EST 07/28/2024 2:47 PM EST Jeffy Tineo MD LAB BLOOD ORDERABLES Final Re sult Performing Organization Address [facility] de Phone Number [facility] [address] [place] [address] * AST (07/27/2024 3:00 AM EST) AST (SGOT) 13 <34 U/L [facility] 07/27/2024 3:00 AM EST 07/28/2024 2:47 PM EST Jeffy Tineo MD LAB BLOOD ORDERABLES Final Re sult Performing Organization Address [facility] de Phone Number [facility] [address] [place] [address] * ALT (07/27/2024 3:00 AM EST) ALT (SGPT) 16 10 - 49 U/L [facility] 07/27/2024 3:00 AM EST 07/28/2024 2:47 PM EST us Jeffy Tineo MD LAB BLOOD ORDERABLES Final Re sult Performing Organization Address [facility] de Phone Number [facility] [address] [place] [address] * (ABNORMAL) Calcium Phosphorus Product, Adjusted (07/27/2024 3:00 AM EST) Albumin 4.3 3.6 - 5.4 g/dL [facility] Calcium 10.0 8.6 - 10.3 mg/dL [facility] Phosphorus, Serum 6.3(H) 2.5 - 5.0 mg/dL [facility] Ca*PO4 63.0(A) <55.0 mg2/dL2 [facility] Calcium, Adjusted Total 10.0 8.6 - 10.3 mg/dL [facility] CA*PO4 CORRCTD 63.0(A) <55.0 mg2/dL2 [facility] 07/27/2024 3:00 AM EST 07/28/2024 2:47 PM EST Jeffy Tineo MD LAB [id number] SOLICITED RESULTS Final Result Performing Organization Address [facility] Co de Phone Number [facility] [address] [place] [address] * Alkaline phosphatase (07/27/2024 3:00 AM EST) Pathologist [facility] Alkaline Phosphatase 115 46 - 116 U/L [facility] 07/27/2024 3:00 AM EST 07/28/2024 2:47 PM EST Jeffy Tineo MD LAB BLOOD ORDERABLES Final Re sult Performing Organization Address [facility] de Phone Number [facility] [address] [place] [address] * (ABNORMAL) CBC and Differential (07/27/2024 3:00 AM EST) Pathologist [facility] DIFFERENTIAL MANUAL, 2 Not Indicated [facility] White [...] ORDERABLES Final Re sult Performing Organization Address [facility] Co de Phone Number [facility] [address] [place] [address] * (ABNORMAL) Kt/V Natural Log, URR (07/27/2024 3:00 AM EST) Pathologist [facility] Treatment Time 217 min [facility] Pre-Weight, lb [...] 2:35 PM EST Jeffy Tineo MD LAB [id number] SOLICITED RESULTS Final Result Performing Organization Address [facility] Co de Phone Number [facility] [address] [place] [address] * (ABNORMAL) Hemoglobin (07/20/2024 3:00 AM EST) Hgb 10.2(L) 11.2 - 15.7 g/dL [facility] Hemoglobin x 3 30.6(L) 33.6 - 47.1 g/dL [facility] 07/20/2024 3:00 AM EST 07/21/2024 12:09 PM EST Jeffy Tineo MD LAB BLOOD ORDERABLES Final Re sult Performing Organization Address [facility] Co de Phone Number [facility] [address] [place] [address] * (ABNORMAL) Hemoglobin (07/18/2024 3:00 AM EST) Hgb 9.8(L) 11.2 - 15.7 g/dL [facility] Hemoglobin x 3 29.4(L) 33.6 - 47.1 g/dL [facility] 07/18/2024 3:00 AM EST 07/19/2024 12:28 PM EST Jeffy Tineo MD LAB BLOOD ORDERABLES Final Re sult Performing Organization Address [facility] de Phone Number [facility] [address] [place] [address] * (ABNORMAL) Hemoglobin and hematocrit (07/13/2024 3:00 AM EST) Hgb 9.6(L) 11.2 - 15.7 g/dL [facility] Hematocrit 29.8(L) 34.1 - 44.9 % [facility] Hemoglobin x 3 28.8(L) 33.6 - 47.1 g/dL [facility] 07/13/2024 3:00 AM EST 07/15/2024 12:51 PM EST Jeffy Tineo MD LAB BLOOD ORDERABLES Final Re sult Performing Organization Address [facility] Co de Phone Number [facility] [address] [place] [address] documented in this encounter Visit Diagnoses Not on filedocumented in this encounter Care Teams Corduroy Cutting Supervisor Relationship Specialty Start Date End Date Ines Zamora MD [address] [place] [id number] PCP - General 06/04/20 documented as of this encounter
--- OUTSIDE RECORDS SUMMARY | 2024-08-10 16:58 | XMS_ITS | Clinical Summary ---
Author Organization [employer] Address [address] [place] [address] 7t [place] [address] Care Team Providers Care Boot Repairer Name Role Phone Faith Mason MD [...] 024 Active Blood Glucose Monitoring Suppl (FreeStyle Red Jacket Lite) w/Device kitIndications:Ty pe 2 diabetes mellitus with hyperglycemia, with long-term current use of insulin ([facility]) Use to test blood sugar 3 times daily 1 kit 024 Active TRUEplus Lancets 33G miscIndications:T ype 2 diabetes mellitus with hyperglycemia, with long-term current use of insulin ([facility]) TEST BLOOD SUGAR THREE TIMES DAILY 100 [...] hyperglycemia, with long-term current use of insulin ([facility]) USE DIRECTED THREE TIMES DAILY 100 each 11 024 Active insulin glargine (Toujeo Max SoloStar) 300 UNIT/ML injectionIndicati ons:Type 2 diabetes mellitus with hyperglycemia, with long-term current use of insulin ([facility]) INJECT 28 UNITS SUBCUTANEOUSLY EVERY DAY 6 mL 1 024 Active sodium chloride (Stanislaus) 0.65 % nasal spray Administer 1 spray [...] MG EC tabletIndications :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 236 mL 024 Active brimonidine (AlphaGAN) 0.2 % ophthalmic solution Administer 1 drop into the left eye 3 times daily. Active Continuous Glucose Chemistry Specialist (FreeStyle Tika 3 [place]) device Use as directed Active Continuous Glucose Sensor (FreeStyle Tika 3 Sensor) [facility] USE DIRECTED TO TEST BLOOD SUGAR CHANGE [...] times daily. 30 tablet 3 025 Active docusate sodium (Colace) 100 MG capsuleIndication s:Other constipation TAKE 1 CAPSULE BY MOUTH TWICE DAILY 180 capsule Active Fiber-Lax 625 MG tabletIndications :Constipation, unspecified constipation type TAKE 1 TABLET BY MOUTH EVERY MORNING 90 tablet 3 025 Active atorvastatin (Lipitor) 40 MG tablet TAKE 1 TABLET BY MOUTH EVERYDAY AT NOON 90 tablet 1 025 Active D3 Super Strength 50 MCG (1999 UT) capsule TAKE 1 CAPSULE BY MOUTH EVERY MORNING 90 capsule 1 025 Active apixaban (Eliquis) 5 MG tabletIndications :Atrial flutter, unspecified type (CMS/HCC) TAKE 1 TABLET BY MOUTH TWICE DAILY IN THE MORNING AND IN THE EVENING 60 tablet 025 Active polycarbophil (FiberCon) 625 MG tabletIndications [...] daily. 60 capsule 1 025 2024 Discontinued apixaban (Eliquis) 5 MG tabletIndications :Atrial flutter, unspecified type (CMS/HCC) TAKE 1 TABLET BY MOUTH TWICE DAILY IN THE MORNING AND IN THE EVENING 60 tablet 025 2024 Discontinued Active Problems Patient Care [...] (05/21/2022 9:19 AM EST): -Currently followed by [facility] - last available consult note Jan 2022 w/ Dr. Miller -Continues with current med regimen: -Januvia 25mg PO daily -Tuojeo insulin 28 units subcutaneous daily -Lispro AC per SS -Dexcom ordered and managed through [facility] -Strongly encourage pt to schedule follow [...] remission 09/02/2018 Coronary artery disease invo lving georgetown coronary artery of georgetown heart with unstable angina pectoris 06/03/2018 Calculus of kidney 06/03/2018 Atypical chest pain 06/03/2018 Chronic endometritis 11/04/2016 Resolved Problems Problem Noted Date Diagnosed Date Resolved Date Type 2 diabetes mellitus without complication 09/03/19 19 05/21/2022 Encounters Date Type Department Care Team Description 08/05/2024 Telephone [facility] [address] [place], [place] [phone] Faith Mason MD 08/05/2024 Refill [facility] [address] [place] [address] Faith Mason MD Atrial flutter, unspecified type ([facility]/H[facility]) 08/05/2024 Telephone [facility] [address] [facility] [place] [address] Faith Mason MD 08/05/2024 Population Health Risk Score Community [facility] ([facility] Department [address] [place] [address] [phone] Provider, Population Health Generic 07/29/2024 Telephone [facility] [address] [place] [address] Faith Mason MD telephone call 07/29/2024 Telephone [facility] [address] [place] [address] Faith Mason MD Appointment Request 07/27/2024 Orders Only GENERIC EXTERNAL DATA DEPARTMENT Provider, Generic External Data 07/25/2024 Refill [facility] [address] [place] [address] Faith Mason MD 07/23/2024 Refill [facility] [address] [place] [address] Faith Mason MD Constipation, unspecified constipation type 07/19/2024 Orders Only GENERIC EXTERNAL DATA DEPARTMENT Provider, Generic External Data 07/18/2024 Orders Only [facility] [address] [place] [address] Faith Mason MD 07/18/2024 Refill [facility] [address] [place] [address] Faith Mason MD Other constipation 07/05/2024 Orders Only GENERIC EXTERNAL DATA DEPARTMENT Provider, Generic External Data 06/17/2024 Refill [facility] [address] [facility] [place] [address] Faith Mason MD 06/17/2024 Refill [facility] [place] [place], [place] [phone] Faith Mason MD Atrial flutter, unspecified type (CMS/HCC) 06/16/2024 Telephone [facility] [address] [place] [address] Faith Mason MD 06/08/2024 Telephone [facility] [address] [facility] [place] [address] Faith Mason MD Care Coordination (ICP Care Plan) 06/07/2024 10:00 AM EST Office Visit [facility] [address] [place] [address] Jacob Shannonaris 06/03/2024 Orders Only [facility] [address] [place] [address] Faith Mason MD Post-menopausal bleeding (Primary Dx) 05/31/2024 Refill [facility] [address] [place] [address] Faith Mason MD Atrial flutter, unspecified type ([facility]); Diabetic polyneuropathy associated with type 2 diabetes mellitus ([facility]); Polyarthralgia 05/26/2024 9:30 AM EST Office Visit [facility] [address] [place] [address] Faith Mason MD Other constipation (Primary Dx); Essential hypertension; Type 2 diabetes mellitus with hyperglycemia, with long-term current use of insulin ([facility]); Metabolic encephalopathy; Chronic nonintractable headache, unspecified headache type 05/26/2024 Travel 05/19/2024 Telephone [facility] [address] [place], [place] [phone] Bernice Fitzpatrick, RN Results 05/19/2024 Orders Only [facility] [address] [place] [address] Faith Mason MD Thyroid nodule (Primary Dx) from Last 3 Months Immunizations Name Administration [...] Description 08/23/2024 2:00 PM EDT Office Visit [facility] [address] [place] [address] Faith Mason MD [address] [place] [address] 09/20/2024 3:00 PM EDT Office Visit [facility] [address] [place] [address] Jacob Shannonaris [address] [place] [address] Health Maintenance Due Date Last Done Comments [...] Procedure Name Priority Date/Time Associated Diagnosis Comments CELL BLOCK Routine 07/27/2024 9:26 AM EST GLUCOSE, WHOLE BLOOD Routine 07/19/2024 2:14 PM EST BI MAMMOGRAM SCREENING TOMOSYNTHESIS BILATERAL Routine 07/18/2024 11:24 AM EST GLUCOSE, WHOLE BLOOD Routine 07/05/2024 2:43 PM EST NO CHARGE VISIT Routine 06/07/2024 10:00 AM EST POCT GLYCATED HEMOGLOBIN, TOTAL Routine [...] Recently Relevant to Health Maintenance Results * Cell Block (07/27/2024 9:26 AM EST) 07/27/2024 9:26 AM EST 07/27/2024 11:45 AM EST [facility] - 07/29/2024 3:17 PM EST ----- ------- Name: Maddenfeliz Corado,Sarah ? Age/Sex: 59/F ? : 1965 Unit#: [id number] ?? Attend Dr: Therese Bateman MD ?Re07/27/24 ?Status: DEP REF ? Location: HO.US ? Disch: ? ----- ------- SPEC : [id number] ? RECD: 07/27/24 ? STATUS: ??SOUT ? REQ NUM: [id number] ? NADJA: 07/27/24 ? SUBM DR: Therese Bateman MD ? ENTERED: ??07/27/24 ?SP TYPE: Cytology ? OTHR DR: Faith Mason MD ? ORDERED: ??Cell Block, Fine Ndl Asp ? Diagnosis ?? Thyroid, left mid nodule, fine needle aspiration biopsy (cytology and cell block): ? -[place] System Classification:? Non-diagnostic (category 1) ? -Description:? Specimen processed and examined, but non-diagnostic due to insufficient ?? follicular cell cellularity. Predominantly blood. A repeat aspiration should be ?? considered if clinically indicated. ?Clinical History Left mid 2.1 cm thyroid nodule FNA biopsy ? Material Received ?? Left mid 2.1 cm thyroid nodule FNA biopsy ? Gross Description Received is 31 cc of slightly cloudy pale pink fluid from which a ThinPrep slide and cell block are prepared. Copies To: ?? Faith Mason MD ?? [facility] ?? [address] ?? [place] [address] ?? [phone] ?? Therese Bateman MD ?? [facility] Endocrinology ?? [address] [facility] [address] ?? [place] [address] ?? [phone] ?? [email or web address] ----- ------- Signed (signature on file) Brigida Andrews 07/29/24 1517 ? ----- ------- ? END OF REPORT ? Generic External Data Provider LAB CYTOLOGY ORDE RABLES Final Result Performing Organization Address [facility] de Phone Number [facility] [address] [place] [address] [phone] * (ABNORMAL) Glucose, Whole Blood (07/19/2024 2:14 PM EST) Only the most recent of2 resultswithin the time period is included. Pathologist [facility] Glucose, Whole Blood 230(H) 60 - 115 mg/dL [facility] Comment:METER #: [id number] Testing performed in the Endocrinology Department [address] , [address], [facility]. 07/19/2024 2:14 PM EST 07/19/2024 2:29 PM EST Generic External Data Provider LAB BLOOD ORDERAB LES Final Result Performing Organization Address [facility] de Phone Number [facility] [address] [place] [address] [phone] * BI Mammogram Screening Tomosynthesis Bilateral (07/18/2024 11:24 AM EST) Anatomical Region Laterality Modality Breast Bilateral Mammography 07/18/2024 11:2 4 AM EST Narrative 07/23/2024 12:27 PM EST ? [facility] [place] ? [address] ?[place] [address] ? Mammography Report ? Signed ? Patient: Madden Colon,Sarah ?MR#: [id number] ?? [id number] ? : 1965 ?Acct:[id number] ? Age/Sex: 59 / F ?ADM Date: 02/24/25 ? Loc: HO.MAMMO ? Attending Dr: Faith No MD ? Ordering Physician: Faith Mason MD ?Results: ?? 1Negative ? Date of Service: 07/18/24 ?Follow Up: 1 Year From Orig ?? inal Mammogram ? Procedure(s): MM tomosynthesis screening BI ?? Accession Number(s): [id number] ? cc: Faith Mason MD ? EXAMINATION: [...] DD/ 1124 ? TD/TT: 07/18/24 1124 ? Calliope Player: ? Procedure Note Donotuseinterpreter, Image - 07/23/2024 [facility] [address] [place] [address] Mammography Report Signed Patient: Vidal Dixon#: [id number] : 1965Acct:[id number] Age/Sex: 59 / FADM Date: 07/18/24 Loc: HO.MAMMO Attending Dr: Faith No MD Ordering Physician: Faith Mason MDResults: 1Negative Date of Service: 07/18/24Follow Up: 1 Year From Orig inal Mammogram Procedure(s): MM tomosynthesis screening BI Accession Number(s): [id number] cc: Faith Mason MD EXAMINATION: MM SCREENING [...] 07/23/24 1223 DD/ 1124 TD/TT: 07/18/24 1124 Calliope Player: Faith No MD IMG BI PROCEDURES Yoshi telma Result - Final * (ABNORMAL) POCT HGB A1C (03/17/2024 3:42 PM EDT) Pathologist [facility] Hemoglobin A1C 7.8(A) 4.0 - 6.0 % QC Media Lot # [id number] Lot# Expiration Date [id number] Blood 03/17/2024 3:42 PM EDT Faith No MD POINT OF CARE TEST EN TER/EDIT ORDERABLES Final Result * Hepatitis Panel, General (01/26/2024 2:16 PM EDT) Pathologist [facility] Hepatitis A IgM REACTIVE (Abnormal) Nonreactive [facility] Comment:For additional infor mation, please refer tohttp://education.Dynamics Expert/faq/HUZ892(This link is being provided for informational/educational purposes only.)THIS TEST PERFORMED AT:[facility] [address] [phone] DIRECTOR: EVITA ALICEA MD ~Hepatitis B Surface Antibody REACTIVE (Abnormal) Nonreactive [facility] Comment:THIS TEST PERFORMED AT:[facility] [address] [phone] DIRECTOR: EVITA ALICEA MD Hepatitis B Core Antibody NON-REACTI VE Nonreactive [facility] Comment:For additional infor mation, please refer tohttp://[employer].Dynamics Expert/faq/PJV646(This link is being provided for informational/educational purposes only.)THIS TEST PERFORMED AT:[facility] [address] [phone] DIRECTOR: EVITA ALICEA MD Hepatitis C Antibody NON-REACTI VE Nonreactive [facility] Comment:HCV antibody was non -reactive. There is no laboratoryevidence of HCV infection.In most cases, no further action is required. However,if recent HCV exposure is suspected, a test for HCV RNA(test code 46797) is suggested.For additional information please refer tohttp://[employer].Dynamics Expert/faq/IDD97s6(This link is being provided for informational/educational purposes only.)THIS TEST PERFORMED AT:[facility] [address] [phone] DIRECTOR: EVITA ALICEA MD Hepatitis B Surface Ag NON-REACTI VE Negative [facility] Comment:For additional infor page, please refer tohttp://[employer].Dynamics Expert/faq/RNR036(This link is being provided for informational/educational purposes only.)THIS TEST PERFORMED AT:[facility] [address] [phone] DIRECTOR: EVITA ALICEA MD Blood 01/26/2024 2:16 PM EDT 01/26/2024 4:08 PM EDT us Faith No MD LAB BLOOD ORDERABLES Final Result [facility] [address] [place] [address] [phone] * HIV-1/2 Antigen and Antibodies, Fourth Generation, with Reflexes (01/26/2024 2:16 PM EDT) HIV AB/AG NON-REAC TIVE Nonreactive [facility] Comment:HIV-1 antigen and HI V-1/HIV-2 [...] for this purpose.For additional information please refer tohttp://education.Dynamics Expert/faq/MVX689(This link is being provided for informational/educational purposes only.)The performance of this assay has not been clinicallyvalidated in patients less than 2 years old.THIS TEST PERFORMED AT:[facility] [address] [phone] DIRECTOR: EVITA ALICEA MD Blood Venous blood specimen / Unknown 01/26/2024 2:16 PM EDT 01/26/2024 4:08 PM EDT Faith No MD LAB BLOOD ORDERABLES Final Result [facility] [address] [place] [address] [phone] * (ABNORMAL) Lipid Panel with Reflex to Direct LDL (12/01/2023 1:06 PM EDT) Triglycerides 81 <150 mg/dL [facility] Comment:Desirable Triglyceri de: less than 150 mg/dLBorderline High Triglyceride 150-199 mg/dLHigh Triglyceride: 200-499 mg/dLVery High Triglyceride: greater than or equal to 5OO mg/dL Cholesterol 77 <200 mg/dL [facility] Comment:Desirable Cholestero l: less than 200 mg/dLBorderline High Cholesterol: 200-239 mg/dLHigh Cholesterol: greater than 239 mg/dL LDL Cholesterol Calculated 30 <100 mg/dL [facility] Comment:Desirable LDL: less than 100 mg/dLNear Optimal/Above Optimal LDL: 110- 129 mg/dLBorderline High LDL: 130-159 mg/dLHigh LDL: 160-189 mg/dLVery High LDL: greater than or equal to 190 mg/dL HDL Cholesterol 31(L) >40 mg/dL [facility] Comment:Desirable HDL: great er than 40 mg/dL Note: This HDL assay may give artificially low results in patients with liver disease. Blood 12/01/2023 1:06 PM EDT 12/01/2023 1:11 PM EDT us Faith No MD LAB BLOOD ORDERABLES Final Result [facility] [address] [place] [phone] * HPV mRNA E6/E7 w/Reflex to HPV Genotypes 16, 18/45 (10/13/2023 10:05 AM EDT) HPV nRNA E6/E7 Not Detected Not Detected [facility] Comment:Methodology: Transcr iption-Mediated AmplificationThis assay detects E6/E7 viral messenger RNA (mRNA) from 14high-risk HPV types (16,18,31,33,35,39,45,51,52,56,58,59,66,68).Cervical sources are required for HPV testing.If a vaginal source from a patient who has had atotal hysterectomy with removal of cervix wassubmitted, please contact the testing laboratoryfor alternative testing options.For additional information, please refer tohttp://education.Dynamics Expert/faq/JKJ107p5(This link if provided for information/educational purposes only.)THIS TEST WAS PERFORMED AT:[facility] [place] [phone] ALICEA MD HPV mRNA E6/E7 TNP [facility] HPV 16 RNA TNP [facility] HPV 18/45 RNA [facility] 10/13/2023 10:0 5 AM EDT 10/14/2023 11:40 AM EDT us Ofelia Haskins CNM LAB CYTOLOGY ORDERABLES F inal Result [facility] [address] [place] [address] [phone] * Pap Smear (10/13/2023 10:05 AM EDT) Swab Cervix uteri structure / Unknown 10/13/2023 10:05 AM EDT 10/14/2023 11:40 AM EDT Narrative [facility] - 11/02/2023 10:48 AM EDT ----- ------- Name: Sarah Dixon ? Age/Sex: 58/F ? : 1965 Unit#: [id number] ?? Attend Dr: OFELIA HASKINS CNM ?Re10/13/23 ?Status: DEP REF ? Location: HO.HHCLNP ? Disch: ? ----- ------- SPEC : [id number] ? RECD: 10/14/23 ? STATUS: ??SOUT ? REQ NUM: [id number] ? NADJA: 10/13/235 ? SUBM DR: OFELIA HASKINS CNM ? ENTERED: ??10/14/23 ?SP TYPE: Pap Smr ?OTHR DR: ? [...] 66, 68) ? HPV testing performed by [facility], [place], [place]. ??See reference laboratory ?? portion of the EMR for entire report. ?Clinical Information LMP:Post menopausal Previous PAP test:Unk ? Material Received ?? ThinPrep-Cervical ----- ------- Signed (signature on file) Debo Avalos 11/02/23 1048 ? ----- ------- ? END OF REPORT ? Ofelia Haskins [facility] LAB CYTOLOGY ORDERABLES F inal Result [facility] [address] [place] [phone] * Cologuard?? colon cancer screening (09/17/2023 12:00 PM EDT) Pathologist Anuel Cologuard Result Negative Negative 09/25/19 10:09 AM EDT [facility] (CLIA #:[id number]) Comment: NEGATIVE TEST RESULT. A negative Cologuard [...] cancer. ??Following a negative Cologuard result, the [place] Cancer Society and U.S. Multi-Society Task Force screening guidelines recommend a Cologuard re-screening interval of 3 years. References: [place] Cancer Society Guideline for Colorectal Cancer Screening: https://www.cancer.org/cancer/hkdhz-spuuhi-aqfqxo/gjuheoogt-mvvdzkhnt-pknddrc/ac s-rec ommendations.html.; Maxi DK, Robinson REESE, Barry TateK, Colorectal Cancer Screening: Recommendations for Physicians and Patients from the U.S. Multi-Society Task Force on Colorectal Cancer Screening , Am J Gastroenterology 2017; 112:7030-4146. TEST DESCRIPTION: Composite algorithmic analysis of stool [...] screened with both Cologuard and colonoscopy. (Kacey Ramirez, N Engl J Med 2014;370(14):2571-3869.) Cologuard may produce a false negative or false positive result (no colorectal cancer or precancerous polyp present at colonoscopy follow up). A negative Cologuard test result does not guarantee the absence of CRC or advanced adenoma (pre-cancer). The current Cologuard screening interval is every 3 years. (Australian Cancer Society and U.S. Multi-Society Task Force). Cologuard performance data in a 10,000 patient pivotal study using colonoscopy as the reference method can be accessed at the following location: www.OndaVia.com/results. Additional description of the Cologuard test process, warnings and precautions can be found at www.cologuard.com. Stool specimen (specimen) 09/17/2023 12:00 PM EDT 09/18/2023 10:51 AM EDT Faith No MD LAB MOLECULAR DIAGNOS TICS ORDERABLES Final Result Performing Organization Address [facility] de Phone Number [facility] (CLIA #:[id number]) Rick Subram[address] Rd[place] [phone], * MICROALBUMIN, RANDOM (07/23/2020 9:00 AM EST) Creatinine Urine 140.39 mg/dL [facility] Microalbum/Creati nine Ratio Ur 419.5 ug/mg cr [facility] Comment: ?Albumin/Creatinine Ratio Reference Ranges: ? Normal: < 30 ug/mg creatinine ? Microalbuminuria: ??30 - 300 ug/mg creatinine Clinical Albuminuria: ??> 300 ug/mg creatinine Microalbumin Urine 589.0 mg/L [facility] 07/23/2020 9:00 AM EST Historical Provider HISTORICAL/NON ORDERABLE LABS Final Result Performing Organization Address [facility] de Phone Number [facility] [address] from Last 3 Months or Most Recently Relevant to Health Maintenance [place] [facility] [place] AD[place] Care Teams Boot Repairer Relationship Specialty Start Date End Date Faith Mason MD [address] [place] [phone] PCP - General Family Medicine 04/12/19 Linda Peralta Wet Wash AssemblerBank Runner 06/08/24
--- OUTSIDE RECORDS SUMMARY | 2024-08-10 16:58 | XMS_ITS | Encounter Summary ---
Author Organization [employer] Address [address] [facility] [address] [place] [address] Care Team Providers Care Search Developer Name Role Phone Faith Mason MD Primary Care Provide r Encounter Details Date Type Department Care Team ([facility] st Contact Info) Description 08/05/2024 Telephone [facility] [address] [place], [place] [phone] Faith Mason MD [address], [place] [phone] Social History Tobacco Use Types Packs/Day Years [...] Description 08/23/2024 2:00 PM EDT Office Visit [facility] MED[facility] [address] [place] [phone] Faith Mason MD [address] [place] [phone] 09/20/2024 3:00 PM EDT Office Visit [facility] ADULT DENTAL [address] [place] [address] Shiva, Karen [address] [place] [address] documented as of this encounter Visit Diagnoses Not on filedocumented in this encounter Additional Health Concerns Assessment Noted Time PHQ-9 Depression Total Score: 6 11/24/19 24 2:35 PM EDT documented as of this encounter Care Teams Search Developer Relationship Specialty Start Date End Date Faith Mason MD [address] [place] [phone] PCP - General Family Medicine 04/12/19 Linda Peralta Personnel DirectorScrap Kettle Tender 06/08/24 documented as of this encounter
--- OUTSIDE RECORDS SUMMARY | 2024-08-10 16:58 | XMS_ITS | Encounter Summary ---
Author Organization [employer] Address [address] [place] [address] 7t [place] [address] Care Team Providers Care Email Designer Name Role Phone Faith Mason MD Primary Care Provide r Reason for Visit * Reason Comments Med Refill Encounter Details Date Type Department Care Team (Late st Contact Info) Description 06/24/2023 Refill [facility] 230 [place], [place] [phone] Faith Mason MD 230 [place], [place] [phone] Social History Tobacco Use Types Packs/Day Years [...] Description 08/23/2024 2:00 PM EDT Office Visit [facility] 230 [place] [address] Faith Mason MD [address] [place] [address] 09/20/2024 3:00 PM EDT Office Visit [facility]ULT [facility] 230 [place] [address] Shiva, Karen [address] [place] [address] documented as of this encounter Visit Diagnoses Not on filedocumented in this encounter Additional Health Concerns Assessment Noted Time PHQ-9 Depression Total Score: 14 023 2:21 PM EDT documented as of this encounter Care Teams Email Designer Relationship Specialty Start Date End Date Faith Mason MD [address] [place] [address] PCP - General Family Medicine 04/12/19 Linda Peralta Television Repair TeacherFinisher Accordion 06/08/24 documented as of this encounter
--- OUTSIDE RECORDS SUMMARY | 2024-08-10 16:58 | XMS_ITS | Encounter Summary ---
Author Organization [employer] Address [address] [facility] 7t [place] [address] Care Team Providers Care Cheesemaker Name Role Phone Faith Mason MD Primary Care Provide r Encounter Details Date Type Department Care Team ([facility] st Contact Info) Description 08/05/2024 Population Health Risk Score [facility] Care [facility] ([facility]) Department [address] [phone] Provider, Population Health Generic Social History Tobacco Use Types Packs/Day Years [...] Description 08/23/2024 2:00 PM EDT Office Visit [facility] 230 [place] [address] Faith Mason MD 230 [place] [address] 09/20/2024 3:00 PM EDT Office Visit [facility] ADULT DENTAL 230 [place] [address] Shiva, Karen 230 [place] [address] documented as of this encounter Visit Diagnoses Not on filedocumented in this encounter Additional Health Concerns Assessment Noted Time PHQ-9 Depression Total Score: 6 11/24/19 24 2:35 PM EDT documented as of this encounter Care Teams Cheesemaker Relationship Specialty Start Date End Date Faith Mason MD 230 [place], [place] [phone] PCP - General Family Medicine 04/12/19 Linda Peralta Pricing DirectorSprinkler Helper 06/08/24 documented as of this encounter
--- OUTSIDE RECORDS SUMMARY | 2024-08-10 16:58 | XMS_ITS | Encounter Summary ---
Author Organization [facility] Address [address] [place] [phone] Phone Care Team Providers Care Shipping And Receiving Weigher Name Role Phone Ines Zamora MD Primary Care Provider [phone] Encounter Details Date Type Department Care Team (Late st Contact Info) Description 08/08/2024 Treatment [facility] [address] [address] Sweetie Pandey MD [facility] [address] End stage renal disease; Dependence [...] Dialysis Note - Sweetie Pandey MD - 08/08/2024 12:00 AM EDT Patient: Sarah Corado : 1965 Note Type: Dialysis Rounds-Comp Service Date: 08/08/2024 This patient was personally seen for a complete visit as part of routine monthly dialysis care for end stage renal disease. Attending Sap Portal Developer: SWEETIE PANDEY MD Dialysis Location: [facility] Schedule: Shift: 2 ADEQUACY ASSESSMENT Kt/V, Natural Log 1.38 (07/27/24) 1.41 (06/29/24) 1.48 (06/01/24) UREA REDUCTION RATIO (%) 69 (07/27/24) 71 (06/29/24) 71 (06/01/24) BUN 72 (07/27/24) 55 (06/29/24) 66 (06/01/24) BUN Post Dialysis 22 (07/27/24) 16 (06/29/24) 19 (06/01/24) Creatinine 8.75 (07/27/24) 7.22 (06/29/24) 7.09 (06/01/24) Bicarbonate (CO2) 24 (07/27/24) 27 (06/29/24) 27 (06/01/24) Sodium 134 (07/27/24) 136 (06/29/24) 134 (06/01/24) ANEMIA ASSESSMENT Hgb 10.7 (07/27/24) 10.2 (07/20/24) 9.8 (07/18/24) Iron Saturation (TSat) 24 (07/27/24) 27 (06/29/24) 42 (06/01/24) Ferritin 1,250 (07/27/24) 1,647 (06/29/24) 1,036 (06/01/24) Iron 69 (07/27/24) 70 (06/29/24) 108 (06/01/24) TIBC 284 (07/27/24) 258 (06/29/24) 258 (06/01/24) MCV 98.8 (07/27/24) 97.7 (06/29/24) 98.6 (06/01/24) Platelets 187 (07/27/24) 176 (06/29/24) 179 (06/01/24) BMM ASSESSMENT Calcium, Adjusted Total 10.0 07/27/24 9.8 06/29/24 10.0 06/17/24 Calcium 10.0 07/27/24 9.8 06/29/24 10.0 06/17/24 Phosphorus, Serum 6.3 07/27/24 5.2 06/29/24 5.3 06/01/24 Ca*PO4 63.0 07/27/24 51.0 06/29/24 51.9 06/01/24 PTH, Intact 495 06/29/24 622 06/01/24 Vitamin D, 25-Hydroxy 48 06/01/24 Magnesium 2.4 07/27/24 2.2 06/29/24 2.2 06/01/24 Alkaline Phosphatase 115 07/27/24 98 06/29/24 118 06/01/24 Aluminum 4 06/01/24 NUTRITION ASSESSMENT Albumin 4.3 07/27/24 4.1 06/29/24 4.2 06/17/24 Potassium 5.4 07/27/24 4.7 06/29/24 5.2 06/01/24 Hemoglobin A1C 7.8 06/01/24 ADDITIONAL LABS White Blood Cells 9.1 (07/27/24) 7.7 (06/29/24) 6.6 (06/01/24) Cholesterol 83 (06/01/24) HDL 31 (06/01/24) LDL-Calc 28 (06/01/24) Triglycerides 119 (06/01/24) Hep B Surface Antibody 19 (06/01/24) 25 (05/04/24) Uric Acid 6.0 (06/01/24) ADDITIONAL COMMENT COMMENTS: 07/04/24 stable 07/06/24 no new issues 07/22/24 stable 07/27/24 doing ok 08/08/24 stable 05/24/24 stable 05/27/24 doing ok 06/24/24 stBLE 01/27/24 stable 02/01/24 c/o eye pain after catract surg and has appt 02/0202/08/24 doing better 02/15/24 has appt w optho re L eye 02/29/24 cont eye pain, f/u with optho 03/16/24 eye pain resolved 03/28/24 stable 04/04/24. Has optho surg next week 04/11/24 stable 04/19/24 doing ok Signed by: SWEETIE PANDEY MD on 08/08/2024 at 05:55:45 PM documented in this encounter Plan of Treatment Not on file documented as of this encounter Visit Diagnoses Diagnosis End stage renal disease Dependence on renal dialysis documented in this encounter Care Teams Shipping And Receiving Weigher Relationship Specialty Start Date End Date Ines Zamora MD [address] [place] [address] PCP - General 06/04/20 documented as of this encounter
--- OUTSIDE RECORDS SUMMARY | 2024-08-10 16:58 | XMS_ITS | Encounter Summary ---
Author Organization [employer] Address [address] [place] [address] 7t [place] [address] Care Team Providers Care Non Profit Director Name Role Phone Faith Mason MD Primary Care Provide r Encounter Details Date Type Department Care Team (Late st Contact Info) Description 07/27/2024 Orders Only GENERIC EXTERNAL DATA DEPARTMENT [...] Description 08/23/2024 2:00 PM EDT Office Visit [facility] 230 [place] [address] Faith Mason MD 230 [place] [address] 09/20/2024 3:00 PM EDT Office Visit [facility] ADULT DENTAL [address] [place] [address] Karen Shannon 230 [place] [address] documented as of this encounter Procedures Procedure Name Priority Date/Time Associated Diagnosis Comments CELL BLOCK Routine 07/27/2024 9:26 AM EST documented in this encounter Results * Cell Block (07/27/2024 9:26 AM EST) 07/27/2024 9:26 AM EST 07/27/2024 11:45 AM EST [facility] - 07/29/2024 3:17 PM EST ----- ------- Name: Sarah Dixon ? Age/Sex: 59/F ? : 1965 Unit#: [id number] ?? Attend Dr: Therese Bateman MD ?Re07/27/24 ?Status: DEP REF ? Location: HO.US ? Disch: ? ----- ------- SPEC : [id number] ? RECD: 07/27/24 ? STATUS: ??SOUT ? REQ NUM: [id number] ? NADJA: 07/27/24 ? SUBM DR: Therese Bateman MD ? ENTERED: ??07/27/24 ?SP TYPE: Cytology ? OTHR DR: Faith Mason MD ? ORDERED: ??Cell Block, Fine Ndl Asp ? Diagnosis ?? Thyroid, left mid nodule, fine needle aspiration biopsy (cytology and cell block): ? -Thomson System Classification:? Non-diagnostic (category 1) ? -Description:? [...] Copies To: ?? Faith Mason MD ?? [facility] ?? [address] ?? [place] [address] ?? [phone] ?? Therese Bateman MD ?? [facility] ?? [address] ?? [place] [address] ?? [phone] ?? [email or web address] ----- ------- Signed (signature on file) Brigida Andrews 07/29/24 1517 ? ----- ------- ? END OF REPORT ? us Generic External Data Provider LAB CYTOLOGY ORDE RABLES Final Result Performing Organization Address City/State/[facility] Co de Phone Number [facility] [address] [place] [address] [phone] documented in this encounter Visit Diagnoses Not on filedocumented in this encounter Additional Health Concerns Assessment Noted Time PHQ-9 Depression Total Score: 6 11/24/19 24 2:35 PM EDT documented as of this encounter Care Teams Non Profit Director Relationship Specialty Start Date End Date Faith Mason MD 230 [place] [address] PCP - General Family Medicine 04/12/19 Linda Peralta Spanish Moss PickerWaist Pleater 06/08/24 documented as of this encounter
--- OUTSIDE RECORDS SUMMARY | 2024-08-10 16:58 | XMS_ITS | Encounter Summary ---
Author Organization [employer] Address 75 [facility] 7t [place] [address] Care Team Providers Care Jamb Cutter Name Role Phone Faith Mason MD Primary Care Provide r Encounter Details Date Type Department Care Team ([facility] st Contact Info) Description 07/17/2023 Telephone [facility] MED[facility]INE 230 [place], [place] [phone] Faith Mason MD 230 [place], [place] [phone] Social History Tobacco Use Types Packs/Day Years [...] Description 08/23/2024 2:00 PM EDT Office Visit [facility] [address] [place] [address] Faith Mason MD 230 [place] [address] 09/20/2024 3:00 PM EDT Office Visit [facility] ADULT DENTAL 230 [place] [address] Shiva, Karen 230 [place] [address] documented as of this encounter Visit Diagnoses Not on filedocumented in this encounter Additional Health Concerns Assessment Noted Time PHQ-9 Depression Total Score: 14 023 2:21 PM EDT documented as of this encounter Care Teams Jamb Cutter Relationship Specialty Start Date End Date Faith Mason MD [address] [place] [address] PCP - General Family Medicine 04/12/19 Linda Peralta Special Deputy SheriffSenior Attorney 06/08/24 documented as of this encounter
--- OUTSIDE RECORDS SUMMARY | 2024-08-10 16:58 | XMS_ITS | Encounter Summary ---
Author Organization [facility] Address [address] [place] [phone] Phone Care Team Providers Care Accounting Policy Consultant Name Role Phone Ines Zamora MD Primary Care Provider Encounter Details Date Type Department Care Team (Late st Contact Info) Description 07/27/2024 Treatment [facility] [address] [address] Sweetie Pandey MD [facility] [address] End stage renal disease; Dependence [...] Dialysis Note - Sweetie Pandey MD - 07/27/2024 12:00 AM EST Patient: Sarah Corado : 1965 Note Type: Dialysis Rounds-Basic Telehealth Service Date: 07/27/2024 Telehealth encounter using audiovisual technology, performed according to state requirements. Appropriate patient consent obtained. This patient was personally seen for a basic visit as part of routine monthly dialysis care for end stage renal disease. Attending Page Designer: SWEETIE PANDEY MD Dialysis Location: [facility] Schedule: M-W-F Shift: 2 ADEQUACY [...] new issues 07/22/24 stable 07/27/24 doing ok 05/24/24 stable 05/27/24 doing ok 06/24/24 stBLE 01/27/24 stable 02/01/24 c/o eye pain after catract surg and has appt 02/0202/08/24 doing better 02/15/24 has appt w optho re L eye 02/29/24 cont eye pain, f/u with optho 03/16/24 eye pain resolved 03/28/24 stable 04/04/24. Has optho surg next week 04/11/24 stable 04/19/24 doing ok Signed by: SWEETIE PANDEY MD on 07/27/2024 at 01:24:30 PM documented in this encounter Plan of Treatment Not on file documented as of this encounter Visit Diagnoses Diagnosis End stage renal disease Dependence on renal dialysis documented in this encounter Care Teams Accounting Policy Consultant Relationship Specialty Start Date End Date Ines Zamora MD [address] [place] [address] PCP - General 06/04/20 documented as of this encounter
--- OUTSIDE RECORDS SUMMARY | 2024-08-10 16:58 | XMS_ITS | Encounter Summary ---
Author Organization [employer] Address [address] [facility] 7t [place] [address] Care Team Providers Care Adjunct Psychology Faculty Member Name Role Phone Faith Mason MD Primary Care Provide r Reason for Visit * Reason Comments Med Refill Encounter Details Date Type Department Care Team (Late st Contact Info) Description 08/11/2023 Refill [facility] 230 [place], [place] [phone] Faith Mason MD 230 [place], [place] [phone] Social History Tobacco Use Types Packs/Day Years [...] Description 08/23/2024 2:00 PM EDT Office Visit [facility] [address] [place] [address] Faith Mason MD [address] [place] [address] 09/20/2024 3:00 PM EDT Office Visit [facility] ADULT DENTAL 230 [place] [address] Shiva, Karen [address] [place] [address] documented as of this encounter Visit Diagnoses Not on filedocumented in this encounter Additional Health Concerns Assessment Noted Time PHQ-9 Depression Total Score: 14 023 2:21 PM EDT documented as of this encounter Care Teams Adjunct Psychology Faculty Member Relationship Specialty Start Date End Date Faith Mason MD [address] [place] [address] PCP - General Family Medicine 04/12/19 Linda Peralta Rat ExterminatorFur Feeder 06/08/24 documented as of this encounter
--- OUTSIDE RECORDS SUMMARY | 2024-08-10 16:58 | XMS_ITS | Encounter Summary ---
Author Organization [employer] Address [address] [place] [address] 7t [place] [address] Care Team Providers Care Clinical Research Monitor Name Role Phone Faith Mason MD Primary Care Provide r Reason for Visit * Reason Comments Med Refill Encounter Details Date Type Department Care Team (Late st Contact Info) Description 07/25/2024 Refill [facility] MED[facility]INE 230 [place], [place] [phone] Faith Mason MD 230 [place], [place] [phone] Social History Tobacco Use Types Packs/Day Years [...] Description 08/23/2024 2:00 PM EDT Office Visit [facility] MEDICINE [address] [place] [address] Faith Mason MD 230 [place] [address] 09/20/2024 3:00 PM EDT Office Visit [facility] ADULT DENTAL [address] [place] [address] Shiva, Karen [address] [place] [address] documented as of this encounter Visit Diagnoses Not on filedocumented in this encounter Additional Health Concerns Assessment Noted Time PHQ-9 Depression Total Score: 6 11/24/19 24 2:35 PM EDT documented as of this encounter Care Teams Clinical Research Monitor Relationship Specialty Start Date End Date Faith Mason MD [address] [place] [address] PCP - General Family Medicine 04/12/19 Linda Peralta Patrol Sergeant Sheriff'S OfficeComputer Aided Design Drafter 06/08/24 documented as of this encounter
--- OUTSIDE RECORDS SUMMARY | 2024-08-10 16:58 | XMS_ITS | Encounter Summary ---
Author Organization [employer] Address [address] [facility] 7t [place] [address] Care Team Providers Care Building Guard Deputy Sheriff Name Role Phone Faith Mason MD Primary Care Provide r Encounter Details Date Type Department Care Team ([facility] st Contact Info) Description 08/05/2024 Telephone [facility] 230 [place], [place] [phone] Faith Mason MD 230 [place], [place] [phone] Social History Tobacco Use Types Packs/Day Years [...] Description 08/23/2024 2:00 PM EDT Office Visit [facility] [address] [place] [address] Faith Mason MD [address] [place] [address] 09/20/2024 3:00 PM EDT Office Visit [facility] ADULT DENT[facility] 230 [place] [address] Shiva, Karen [address] [place] [address] documented as of this encounter Visit Diagnoses Not on filedocumented in this encounter Additional Health Concerns Assessment Noted Time PHQ-9 Depression Total Score: 6 11/24/19 24 2:35 PM EDT documented as of this encounter Care Teams Building Guard Deputy Sheriff Relationship Specialty Start Date End Date Faith Mason MD [address] [place] [phone] PCP - General Family Medicine 04/12/19 Linda Peralta E Learning DesignerWelt Treater 06/08/24 documented as of this encounter
--- OUTSIDE RECORDS SUMMARY | 2024-08-10 16:58 | XMS_ITS | Encounter Summary ---
Author Organization [employer] Address [address] [place] [address] 7t [place] [address] Care Team Providers Care Continuous Weld Pipe Mill Supervisor Name Role Phone Faith Mason MD Primary Care Provide r Reason for Visit * Reason Comments Med Change Request Encounter Details Date Type Department Care Team (Late Contact Info) Description 11/28/2022 Refill [facility] 230 [place], [place] [phone] Faith Mason MD 230 [place] [address] Type 2 diabetes mellitus with hyperglycemia, with long-term current use of insulin ([facility]) Social History Tobacco Use Types [...] Department Care Team (Late Contact Info) Description 08/23/2024 2:00 PM EDT Office Visit [facility] 230 [place] [address] Faith Mason MD [address] [place] [address] 09/20/2024 3:00 PM EDT Office Visit [facility] ADULT DENTAL 230 [place] [address] Shiva, Karen 230 [place] [address] documented as of this encounter Visit Diagnoses Diagnosis Type 2 diabetes mellitus with hyperglycemia, with long-term current use of insulin ([facility]) documented in this encounter Additional Health Concerns Assessment Noted Time PHQ-9 Depression Total Score: 14 023 2:21 PM EDT documented as of this encounter Care Teams Continuous Weld Pipe Mill Supervisor Relationship Specialty Start Date End Date Faith Mason MD [address] [place] [address] PCP - General Family Medicine 04/12/19 Linda Peralta Pie Filling MixerMedia Marketing Director 06/08/24 documented as of this encounter
--- OUTSIDE RECORDS SUMMARY | 2024-08-10 16:58 | XMS_ITS | Encounter Summary ---
Author Organization [facility] Address [address] [place] [phone] Phone Care Team Providers Care Employment Coach Name Role Phone Ines Zamora MD Primary Care Provider [phone] Encounter Details Date Type Department Care Team (Late st Contact Info) Description 06/27/2024 Treatment [facility] [address] [address] Sweetie Pandey MD [facility] [address] Social History Tobacco Use Types [...] care for end stage renal disease. Attending Inspector Air Carrier: SWEETIE PANDEY MD Dialysis Location: [facility] Schedule: Shift: 2 ADEQUACY ASSESSMENT Kt/V, [...] on filedocumented in this encounter Care Teams Employment Coach Relationship Specialty Start Date End Date Ines Zamora MD [address] [place] [address] PCP - General 06/04/20 documented as of this encounter
--- OUTSIDE RECORDS SUMMARY | 2024-08-10 16:58 | XMS_ITS | Encounter Summary ---
Author Organization [facility] Address [address] [place] [phone] Phone Care Team Providers Care Flatwork Finisher Name Role Phone Ines Zamora MD Primary Care Provider [phone] Encounter Details Date Type Department Care Team (Late st Contact Info) Description 07/22/2024 Treatment [facility] [address] [address] Sweetie Pandey MD [facility] [address] End stage renal disease; Dependence [...] care for end stage renal disease. Attending Safety And Health Consultant: SWEETIE PANDEY MD Dialysis Location: [facility] Schedule: M-W-F Shift: 2 ADEQUACY ASSESSMENT [...] dialysis documented in this encounter Care Teams Flatwork Finisher Relationship Specialty Start Date End Date Ines Zamora MD [address] [place] [phone] PCP - General 06/04/20 documented as of this encounter
--- OUTSIDE RECORDS SUMMARY | 2024-08-10 16:58 | XMS_ITS | Encounter Summary ---
Author Organization [employer] Address [address] [place] [address] 7t [place] [address] Care Team Providers Care Club Lounge Attendant Name Role Phone Faith Mason MD Primary Care Provide r Reason for Visit * Reason Comments Med Refill Encounter Details Date Type Department Care Team (Late st Contact Info) Description 08/05/2024 Refill [facility] 230 [place], [place] [phone] Faith Mason MD 230 [place], [place] [phone] Atrial flutter, unspecified type (CMS/HCC) Social History [...] Description 08/23/2024 2:00 PM EDT Office Visit [facility] [address] [place] [address] Faith Mason MD [address] [place] [address] 09/20/2024 3:00 PM EDT Office Visit [facility] ADULT DENTAL [address] [place] [address] Karen Shannon [address] [place] [address] documented as of this encounter Visit Diagnoses Diagnosis Atrial flutter, unspecified type (CMS/HCC) documented in this encounter Additional Health Concerns Assessment Noted Time PHQ-9 Depression Total Score: 6 11/24/19 24 2:35 PM EDT documented as of this encounter Care Teams Club Lounge Attendant Relationship Specialty Start Date End Date Faith Mason MD [address] [place] [address] PCP - General Family Medicine 04/12/19 Linda Peralta Hands AssemblerClay Puddler 06/08/24 documented as of this encounter
--- OUTSIDE RECORDS SUMMARY | 2024-08-10 16:58 | XMS_ITS | Encounter Summary ---
Author Organization [employer] Address [address] [facility] 7t [place] [address] Care Team Providers Care Speech Scientist Name Role Phone Faith Masno MD Primary Care Provide r Encounter Details Date Type Department Care Team ([facility] st Contact Info) Description 07/18/2024 Orders Only [facility] [address] [place], [place] [phone] Faith Mason MD [address] [place], [place] [phone] Social History Tobacco Use Types Packs/Day Years [...] Description 08/23/2024 2:00 PM EDT Office Visit [facility] [address] [place] [address] Fatih Mason MD [address] [place] [address] 09/20/2024 3:00 PM EDT Office Visit [facility] ADULT DENTAL [address] [place] [address] Karen Shannon [address] [place] [address] documented as of this encounter Procedures Procedure Name Priority Date/Time Associated Diagnosis Comments BI MAMMOGRAM SCREENING TOMOSYNTHESIS BILATERAL Routine 07/18/2024 11:24 AM EST documented in this encounter Results * BI Mammogram Screening Tomosynthesis Bilateral (07/18/2024 11:24 AM EST) Anatomical Region Laterality Modality Breast Bilateral Mammography 07/18/2024 11:2 4 AM EST Narrative 07/23/2024 12:27 PM EST ? [facility] ? [address] ?[place] [address] ? Mammography Report ? Signed ? Patient: Madden Colon,Sarah ?MR#: [id number] ?? [id number] ? : 1965 ?Acct:[id number] ? Age/Sex: 59 / F ?ADM Date: 07/18/24 ? Loc: HO.MAMMO ? Attending Dr: Faith No MD ? Ordering Physician: Faith Mason MD ?Results: ?? 1Negative ? Date of Service: 07/18/24 ?Follow Up: 1 Year From Orig ?? inal Mammogram ? Procedure(s): MM tomosynthesis screening BI ?? Accession Number(s): [id number] ? cc: Faith Mason MD ? EXAMINATION: [...] DD/ 1124 ? TD/TT: 07/18/24 1124 ? Electrical Lineworker: ? Procedure Note Roseanna, Image - 07/23/2024 [facility] [address] [place] [address] Mammography Report Signed Patient: Sarah Dixon#: [id number] : 1965Acct:[id number] Age/Sex: 59 / FADM Date: 07/18/24 Loc: HO.MAMMO Attending Dr: Faith No MD Ordering Physician: Faith Mason MDResults: 1Negative Date of Service: 07/18/24Follow Up: 1 Year From Orig inal Mammogram Procedure(s): MM tomosynthesis screening BI Accession Number(s): [id number] cc: Faith Mason MD EXAMINATION: MM SCREENING [...] Alicia Archuleta DO 07/23/2024 12:23 PM EST RP Dictated By: Alicia Archuleta DO Signed By: <Electronically signed by Alicia Archuleta DO in OV> 07/23/24 1223 DD/ 1124 TD/TT: 07/18/24 1124 Electrical Lineworker: us Faith No MD IMG BI PROCEDURES Yoshi telma Result - Final documented in this encounter Visit Diagnoses Not on filedocumented in this encounter Additional Health Concerns Assessment Noted Time PHQ-9 Depression Total Score: 6 11/24/19 24 2:35 PM EDT documented as of this encounter Care Teams Speech Scientist Relationship Specialty Start Date End Date Faith Mason MD [address] [place] [address] PCP - General Family Medicine 04/12/19 Linda Peralta Reed Or Wind Instrument RepairerRotary Cutter 06/08/24 documented as of this encounter
--- OUTSIDE RECORDS SUMMARY | 2024-08-10 16:58 | XMS_ITS | Encounter Summary ---
Author Organization [employer] Address [address] [facility] 7t [place] [address] Care Team Providers Care Cloth Desizing Range Tender Name Role Phone Faith Mason MD Primary Care Provide r Encounter Details Date Type Department Care Team ([facility] st Contact Info) Description 03/08/2024 Orders Only [facility] [address] [place], [place] [phone] Faith Mason MD 230 [place], [place] [phone] Social History Tobacco Use Types Packs/Day Years [...] Description 08/23/2024 2:00 PM EDT Office Visit [facility] [address] [place] [address] Faith Mason MD 230 [place] [address] 09/20/2024 3:00 PM EDT Office Visit [facility] ADULT DENTAL [address] [place] [address] Shiva, Karen 230 [place] [address] documented as of this encounter Visit Diagnoses Not on filedocumented in this encounter Additional Health Concerns Assessment Noted Time PHQ-9 Depression Total Score: 6 11/24/19 24 2:35 PM EDT documented as of this encounter Care Teams Cloth Desizing Range Tender Relationship Specialty Start Date End Date Faith Mason MD [address] [place] [address] PCP - General Family Medicine 04/12/19 Linda Peralta Sole Leather Cutting Machine OperatorHighway Maintenance Technician 06/08/24 documented as of this encounter
--- OUTSIDE RECORDS SUMMARY | 2024-08-10 16:58 | XMS_ITS | Encounter Summary ---
Author Organization [facility] Address [address] [place] [phone] Phone Care Team Providers Care Insurance Business Analyst Name Role Phone Ines Zamora MD Primary Care Provider Encounter Details Date Type Department Care Team (Late st Contact Info) Description 07/30/2024 Treatment [facility] [address] [phone] Lilian Rothman MD [facility] [address] [phone] End stage renal disease; Dependence [...] encounter Miscellaneous Notes * Dialysis Note - Lilian Rothman MD - 07/30/2024 12:00 AM EST Patient: Sarah Corado : 1965 Note Type: Dialysis Rounds-Comp Service Date: 07/30/2024 This patient was personally seen for a complete visit as part of routine monthly dialysis care for end stage renal disease. Attending Spiritual Counselor: SWEETIE PANDEY MD Dialysis Location: [facility] Schedule: Shift: 2 OVERVIEW Patient is stable. HOME MEDICATIONS Medications reviewed. BP AND FLUID ASSESSMENT Acceptable blood pressure. Fluid status acceptable. ADEQUACY ASSESSMENT Target met. Kt/V, Natural Log 1.38 (07/27/24) 1.41 (06/29/24) 1.48 (06/01/24) UREA REDUCTION RATIO (%) 69 (07/27/24) 71 (06/29/24) 71 (06/01/24) BUN 72 (07/27/24) 55 (06/29/24) 66 (06/01/24) BUN Post Dialysis 22 (07/27/24) 16 (06/29/24) 19 (06/01/24) Creatinine 8.75 (07/27/24) 7.22 (06/29/24) 7.09 (06/01/24) Bicarbonate (CO2) 24 (07/27/24) 27 (06/29/24) 27 (06/01/24) Sodium 134 (07/27/24) 136 (06/29/24) 134 (06/01/24) ACCESS ASSESSMENT Vascular access examined. ANEMIA ASSESSMENT Anemia targets met. Hemoglobin at target. Continue current TAVARES dose. Hgb 10.7 (07/27/24) 10.2 (07/20/24) 9.8 (07/18/24) Iron Saturation (TSat) 24 (07/27/24) 27 (06/29/24) 42 (06/01/24) Ferritin 1,250 (07/27/24) 1,647 (06/29/24) 1,036 (06/01/24) Iron 69 (07/27/24) 70 (06/29/24) 108 (06/01/24) TIBC 284 (07/27/24) 258 (06/29/24) 258 (06/01/24) MCV 98.8 (07/27/24) 97.7 (06/29/24) 98.6 (06/01/24) Platelets 187 (07/27/24) 176 (06/29/24) 179 (06/01/24) BMM ASSESSMENT PTH within target. Hyperphosphatemia noted. Calcium controlled. Bone and mineral metabolism parameters reviewed. Calcium, Adjusted Total 10.0 07/27/24 9.8 06/29/24 10.0 06/17/24 Calcium 10.0 07/27/24 9.8 06/29/24 10.0 06/17/24 Phosphorus, Serum 6.3 07/27/24 5.2 06/29/24 5.3 06/01/24 Ca*PO4 63.0 07/27/24 51.0 06/29/24 51.9 06/01/24 PTH, Intact 495 06/29/24 622 06/01/24 Vitamin D, 25-Hydroxy 48 06/01/24 Magnesium 2.4 07/27/24 2.2 06/29/24 2.2 06/01/24 Alkaline Phosphatase 115 07/27/24 98 06/29/24 118 06/01/24 Aluminum 4 06/01/24 NUTRITION ASSESSMENT Albumin at goal. Albumin 4.3 07/27/24 4.1 06/29/24 4.2 06/17/24 Potassium 5.4 07/27/24 4.7 06/29/24 5.2 06/01/24 Hemoglobin A1C 7.8 06/01/24 PHYSICAL EXAM Exam performed. Vital Signs Reviewed. Lungs - Clear. CV - Blood pressure noted. No edema. EXT - No ulcers. ADDITIONAL LABS White Blood Cells 9.1 (07/27/24) [...] 04/11/24 stable 04/19/24 doing ok Signed by: LILIAN ROTHMAN MD on 07/30/2024 at 01:45:05 PM documented in this encounter Plan of Treatment Not on file documented as of this encounter Visit Diagnoses Diagnosis End stage renal disease Dependence on renal dialysis documented in this encounter Care Teams Insurance Business Analyst Relationship Specialty Start Date End Date Ines Zamora MD [address] [place] [phone] PCP - General 06/04/20 documented as of this encounter
--- OUTSIDE RECORDS SUMMARY | 2024-08-10 16:58 | XMS_ITS | Encounter Summary ---
Author Organization [employer] Address [address] [place] [address] 7t [place] [address] Care Team Providers Care Line Service Person Name Role Phone Faith Mason MD Primary Care Provide r Reason for Visit * Reason Comments Med Refill Encounter Details Date Type Department Care Team (Late st Contact Info) Description 07/23/2024 Refill [facility] [address] [place], [place] [phone] Faith Mason MD [address] [place], [place] [phone] Constipation, unspecified constipation type Social History Tobacco [...] Description 08/23/2024 2:00 PM EDT Office Visit [facility] [address] [place] [phone] Faith Mason MD [address] [place] [address] 09/20/2024 3:00 PM EDT Office Visit [facility] ADULT DENTAL [address] [place] [address] Karen Shannon [address] [place] [address] documented as of this encounter Visit Diagnoses Diagnosis Constipation, unspecified constipation type documented in this encounter Additional Health Concerns Assessment Noted Time PHQ-9 Depression Total Score: 6 11/24/19 24 2:35 PM EDT documented as of this encounter Care Teams Line Service Person Relationship Specialty Start Date End Date Faith Mason MD [address] [place] [address] PCP - General Family Medicine 04/12/19 Lnida Peralta Attendant CampgroundLandcare Facilitator 06/08/24 documented as of this encounter
--- OUTSIDE RECORDS SUMMARY | 2024-08-10 16:58 | XMS_ITS | Encounter Summary ---
Author Organization [employer] Address [address] [facility] 7t [place] [address] Care Team Providers Care Bobbin Loose End Finder Name Role Phone Faith Mason MD Primary Care Provide r Reason for Visit * Reason Comments Med Refill Encounter Details Date Type Department Care Team (Late st Contact Info) Description 04/04/2024 Refill [facility] MED & PEDS [address] [place], [place] [phone] Faith Mason MD [address] [place] [address] Essential hypertension Social History Tobacco Use Types [...] Description 08/23/2024 2:00 PM EDT Office Visit [facility] [address] [place] [address] Faith Mason MD [address] [place] [address] 09/20/2024 3:00 PM EDT Office Visit [facility] ADULT DENTAL [address] [place] [address] Karen Shannon [address] [place] [address] documented as of this encounter Visit Diagnoses Diagnosis Essential hypertension Unspecified essential hypertension documented in this encounter Additional Health Concerns Assessment Noted Time PHQ-9 Depression Total Score: 6 11/24/19 24 2:35 PM EDT documented as of this encounter Care Teams Bobbin Loose End Finder Relationship Specialty Start Date End Date Faith Mason MD [address] [place] [address] PCP - General Family Medicine 04/12/19 Linda Peralta Shipping SupportCharge Histotechnologist 06/08/24 documented as of this encounter
--- OUTSIDE RECORDS SUMMARY | 2024-08-10 16:58 | XMS_ITS | Encounter Summary ---
Author Organization [employer] Address [address] [place] [address] 7t [place] [address] Care Team Providers Care Supervisor Fruit Grading Name Role Phone Faith Mason MD Primary Care Provide r Reason for Visit * Reason Onset Date Comments FYI 08/13/2023 Encounter Details Date Type Department Care Team ([facility] st Contact Info) Description 08/13/2023 Telephone [facility] MED[facility]INE [address] [place], [place] [phone] Faith Mason MD [address] [place] [address] FYI Social History Tobacco Use Types Packs/Day [...] of today. Any questions contact Tameka at [phone] documented in this encounter Plan of Treatment Upcoming Encounters Date Type Department Care Team (Late st Contact Info) Description 08/23/2024 2:00 PM EDT Office Visit [facility] MED[facility] [address] [place] [address] Faith Mason MD [address] [place] [address] 09/20/2024 3:00 PM EDT Office Visit [facility] ADULT DENTAL [address] [place] [address] Karen Shannon [address] [place] [address] documented as of this encounter Visit Diagnoses Not on filedocumented in this encounter Additional Health Concerns Assessment Noted Time PHQ-9 Depression Total Score: 14 023 2:21 PM EDT documented as of this encounter Care Teams Supervisor Fruit Grading Relationship Specialty Start Date End Date Faith Mason MD [address] [place] [address] PCP - General Family Medicine 04/12/19 Linda Peralta Transition Mgr RnRehabilitation Worker 06/08/24 documented as of this encounter
--- OUTSIDE RECORDS SUMMARY | 2024-08-10 16:58 | XMS_ITS | Encounter Summary ---
Author Organization [employer] Address [address] [facility] 7t [place] [address] Care Team Providers Care Civil Lawyer Name Role Phone Faith Mason MD Primary Care Provide r Reason for Visit * Reason Comments Med Refill Encounter Details Date Type Department Care Team (Late st Contact Info) Description 04/05/2024 Refill [facility] MED & PEDS [address] [place], [place] [phone] Faith Mason MD [address] [place] [address] Atrial flutter, unspecified type (CMS/HCC); Diabetic polyneuropathy [...] Description 08/23/2024 2:00 PM EDT Office Visit [facility] [address] [place] [address] Faith Mason MD [address] [place] [address] 09/20/2024 3:00 PM EDT Office Visit [facility] ADULT DENTAL [address] [place], [place] [phone] Karen Shannon 230 [place] [address] documented as of this encounter Visit Diagnoses Diagnosis Atrial flutter, unspecified type (CMS/HCC) Diabetic polyneuropathy associated with type 2 diabetes mellitus (CMS/HCC) documented in this encounter Additional Health Concerns Assessment Noted Time PHQ-9 Depression Total Score: 6 11/24/19 24 2:35 PM EDT documented as of this encounter Care Teams Civil Lawyer Relationship Specialty Start Date End Date Faith Mason MD [address] [place] [address] PCP - General Family Medicine 04/12/19 Linda Peralta Student Services Vice PresidentDictating Machine Typist 06/08/24 documented as of this encounter
--- OUTSIDE RECORDS SUMMARY | 2024-08-10 16:58 | XMS_ITS | Encounter Summary ---
Author Organization [employer] Address [address] [place] [address] 7t [place] [address] Care Team Providers Care Car Hopper Name Role Phone Faith Mason MD Primary Care Provide r Reason for Visit * Reason Onset Date Comments Appointment Request 07/29/2024 Encounter Details Date Type Department Care Team ([facility] st Contact Info) Description 07/29/2024 Telephone [facility] [address] [place], [place] [phone] Faith Mason MD [address] [place] [address] Appointment Request Social History Tobacco Use Types Packs/Day Years [...] encounter Miscellaneous Notes * Telephone Encounter - Yan Stringer [place] - 08/03/2024 4:08 PM EDT T/c to pt is R/c list for september 2024 pt n/s in july 2024 appt we be mail * Telephone Encounter - Juana De Los Santos - 07/29/2024 3:04 PM EST Tc from pt requesting r/s 07/29 appointment. documented in this encounter Plan of Treatment Upcoming Encounters Date Type Department Care Team (Late st Contact Info) Description 08/23/2024 2:00 PM EDT Office Visit [facility] [address] [place] [address] Faith Mason MD [address] [place] [address] 09/20/2024 3:00 PM EDT Office Visit [facility] ADULT DENTAL [address] [place], [place] [phone] Karen Shannon [address] [place], [place] [phone] documented as of this encounter Visit Diagnoses Not on filedocumented in this encounter Additional Health Concerns Assessment Noted Time PHQ-9 Depression Total Score: 6 11/24/19 24 2:35 PM EDT documented as of this encounter Care Teams Car Hopper Relationship Specialty Start Date End Date Faith Mason MD [address] [place], [place] [phone] PCP - General Family Medicine 04/12/19 Linda Peralta Endoscopy Support SpecialistDry Transfer Worker 06/08/24 documented as of this encounter
--- OUTSIDE RECORDS SUMMARY | 2024-08-10 16:58 | XMS_ITS | Encounter Summary ---
Author Organization [employer] Address [address] [place] [address] 7t [place] [address] Care Team Providers Care Ribbon Inker Name Role Phone Faith Mason MD Primary [...] Visit [facility]INE [address] [place] [address] Faith Mason MD [address] [place] [address] 09/20/2024 3:00 PM EDT Office Visit [facility] ADULT DENTAL [address] [place] [address] Shiva, Karen [address] [place] [address] documented as of this encounter Procedures Procedure Name Priority Date/Time Associated Diagnosis Comments GLUCOSE, WHOLE BLOOD Routine 07/19/2024 2:14 PM EST documented in this encounter Results * (ABNORMAL) Glucose, Whole Blood (07/19/2024 2:14 PM EST) Glucose, Whole Blood 230(H) 60 - 115 mg/dL [facility] Comment:METER #: [id number] Testing performed in the Endocrinology Department [address] , [address], [facility]. 07/19/2024 2:14 PM EST 07/19/2024 2:29 PM EST us Generic External Data Provider LAB BLOOD ORDERAB LES Final Result [facility] [address] [place] [address] [phone] documented in this encounter Visit Diagnoses Not on filedocumented in this encounter Additional Health Concerns Assessment Noted Time PHQ-9 Depression Total Score: 6 11/24/19 24 2:35 PM EDT documented as of this encounter Care Teams Ribbon Inker Relationship Specialty Start Date End Date Faith Mason MD [address] [place] [address] PCP - General Family Medicine 04/12/19 Linda Peralta Metal Tube CutterSole Leveler 06/08/24 documented as of this encounter
--- OUTSIDE RECORDS SUMMARY | 2024-08-10 16:58 | XMS_ITS | Encounter Summary ---
Author Organization [employer] Address [address] [place] [address] 7t [place] [address] Care Team Providers Care Director Of Philanthropy Name Role Phone Faith Mason MD Primary Care Provide r Reason for Visit * Reason Comments Med Refill Encounter Details Date Type Department Care Team (Late st Contact Info) Description 07/18/2024 Refill [facility] [address] [place], [place] [phone] Faith Mason MD [address] [place], [place] [phone] Other constipation Social History Tobacco Use Types [...] Description 08/23/2024 2:00 PM EDT Office Visit [facility] [address] [place] [address] Faith Mason MD [address] [place] [address] 09/20/2024 3:00 PM EDT Office Visit [facility] ADULT DENTAL [address] [place] [address] Jacob Shannonaris [address] [place] [address] documented as of this encounter Visit Diagnoses Diagnosis Other constipation documented in this encounter Additional Health Concerns Assessment Noted Time PHQ-9 Depression Total Score: 6 11/24/19 24 2:35 PM EDT documented as of this encounter Care Teams Director Of Philanthropy Relationship Specialty Start Date End Date Faith Mason MD [address] [place] [address] PCP - General Family Medicine 04/12/19 Linda Peralta Ordnance EngineerConveyor Installer 06/08/24 documented as of this encounter
== END 2024-08-10 15:41 | disposition home or self-care (01) ==
LOC: HO.ENCR 14:48
PROVIDERS: PCP Internal Medicine; Visit Provider Student in an Organized Health Care Education/Training Program
DX: E04.2 Nontoxic multinodular goiter (principal)
CPT/HCPCS: 99213

== ENCOUNTER → 2024-08-10 14:47 | Outpatient (BNVA) | payer MEDICAID, SELFPAY | PROVIDERS: PCP Internal Medicine; Visit Provider Student in an Organized Health Care Education/Training Program | DX: E04.2 Nontoxic multinodular goiter (principal) | CPT/HCPCS: 99212 ==

== ENCOUNTER 2024-08-23 18:20 | Outpatient (REF) | payer MEDICAID, SELFPAY ==
--- OUTSIDE RECORDS SUMMARY | 2024-08-23 19:12 | XMS_ITS | Encounter Summary ---
Author Organization [employer] Address [address] [facility] 7t [place] [address] Care Team Providers Care Roller Inspector Name Role Phone Faith Mason MD Primary Care Provide r Encounter Details Date Type Department Care Team ([facility] st Contact Info) Description 08/05/2024 Telephone [facility] MEDICINE [address] [place], [place] [phone] Faith Mason MD [address] [place], [place] [phone] Social History Tobacco Use Types Packs/Day Years [...] Care Team (Late st Contact Info) Description 09/20/2024 3:00 PM EDT Office Visit [facility] ADULT DENTAL [address] [place] [address] Shiva, Karen [address] [place] [address] documented as of this encounter Visit Diagnoses Not on filedocumented in this encounter Additional Health Concerns Assessment Noted Time PHQ-9 Depression Total Score: 6 11/24/19 24 2:35 PM EDT documented as of this encounter Care Teams Roller Inspector Relationship Specialty Start Date End Date Faith Mason MD [address] [place] [address] PCP - General Family Medicine 04/12/19 Linda Peralta Underwater RoboticistVp Construction 06/08/24 documented as of this encounter
--- OUTSIDE RECORDS SUMMARY | 2024-08-23 19:12 | XMS_ITS | Encounter Summary ---
Author Organization [employer] Address [address] [place] [address] 7t [place] [address] Care Team Providers Care Jawbone Breaker Name Role Phone Faith Mason MD Primary Care Provide r Encounter Details Date Type Department Care Team (Latest Contact Info) Description 08/23/2024 Travel Social History Tobacco Use Types Packs/Day [...] Description 09/20/2024 3:00 PM EDT Office Visit [facility] ADULT DENTAL [address] [place] [address] Shiva Karen [address] [place] [address] documented as of this encounter Visit Diagnoses Not on filedocumented in this encounter Additional Health Concerns Assessment Noted Time PHQ-9 Depression Total Score: 6 11/24/19 24 2:35 PM EDT documented as of this encounter Care Teams Jawbone Breaker Relationship Specialty Start Date End Date Faith Mason MD [address] [place] [address] PCP - General Family Medicine 04/12/19 Linda Peralta Mortgage CloserDraughtsman 06/08/24 documented as of this encounter
--- OUTSIDE RECORDS SUMMARY | 2024-08-23 19:12 | XMS_ITS | Clinical Summary ---
Author Organization [facility] Address [address] [address] Phone Care Team Providers Care Aviation Electrician Name Role Phone Ines Zamora MD Primary Care Provider [phone] Medications lisinopril 10 MG tabletIndicatio ns:Stage 3 [...] Encounters Date Type Department Care Team Description 08/15/2024 Treatment [facility] [address] [address] Jeffy Tineo MD End stage renal disease; Dependence on renal dialysis 08/08/2024 Treatment [facility] [address] [address] Jeffy Tineo MD End stage renal disease; Dependence on renal dialysis 07/30/2024 Treatment [facility] [address] [address] Alber Rothman MD End stage renal disease; Dependence on renal dialysis 07/27/2024 Treatment [facility] [address] [address] Jeffy Tineo MD End stage renal disease; Dependence on renal dialysis 07/22/2024 Treatment [facility] [address] [address] Jeffy Tineo MD End stage renal disease; Dependence on renal dialysis 07/13/2024 Orders Only [facility] [address] [address] Jeffy Tineo MD 07/06/2024 Treatment [facility] [address] [address] Jeffy Tineo MD 07/04/2024 Treatment [facility] [address] [address] Jeffy Tineo MD 06/27/2024 Treatment [facility] [address] [address] Jeffy Tineo MD 06/24/2024 Treatment [facility] [address] [address] Jeffy Tineo MD 06/22/2024 Treatment [facility] [address] [address] Jeffy Tineo MD 06/17/2024 Treatment [facility] [address] [address] Jeffy Tineo MD 05/27/2024 Treatment [facility] [address] [facility] [address] [place] [address] Jeffy Tineo MD from Last 3 Months [...] Diagnosis Comments HEMOGLOBIN AND HEMATOCRIT, BLOOD Routine 08/10/2024 3:00 AM EDT [facility] (HC) Routine 08/08/2024 3:00 AM EDT PHOSPHATE [...] BLOOD Routine 06/22/2024 3:00 AM EST [facility] () Routine 06/17/2024 3:00 AM EST CALCIUM, ADJUSTED [...] URR (HC) Routine 06/01/2024 3:00 AM EST from Last 3 Months Results * (ABNORMAL) Hemoglobin and hematocrit (08/10/2024 3:00 AM EDT) Only the most recent of6 resultswithin the time period is included. Hgb 10.3(L) 11.2 - 15.7 g/dL [facility] Hematocrit 32.7(L) 34.1 - 44.9 % [facility] Hemoglobin x 3 30.9(L) 33.6 - 47.1 g/dL [facility] 08/10/2024 3:00 AM EDT 08/11/2024 2:26 PM EDT us Jeffy Tineo MD LAB BLOOD ORDERABLES Final Re sult Performing Organization Address City/[facility] Co de Phone Number [facility] [address] [place] [address] * LIH (08/08/2024 3:00 AM EDT) Only the most recent of5 resultswithin the time period is included. Lipemia Normal Normal [facility] Icterus Normal Normal [facility] Hemolysis Normal Normal [facility] 08/08/2024 3:00 AM EDT 08/09/2024 12:11 PM EDT us Jeffy Tineo MD LAB [id number] SOLICITED RESULTS Final Result Performing Organization Address [facility] de Phone Number [facility] [address] [place] [address] * (ABNORMAL) Phosphorus (08/08/2024 3:00 AM EDT) Phosphorus, Serum 5.4(H) 2.5 - 5.0 mg/dL [facility] 08/08/2024 3:00 AM EDT 08/09/2024 12:11 PM EDT us Jeffy Tineo MD LAB BLOOD ORDERABLES Final Re sult Performing Organization Address [facility] Co de Phone Number [facility] [address] [place] [address] * (ABNORMAL) Kt/V Natural Log, URR (07/27/2024 [...] 2:35 PM EST Jeffy Tineo MD LAB [id number] SOLICITED RESULTS Final Result Performing Organization Address [place]/[facility] Co de Phone Number [facility] [address] [place] [address] * (ABNORMAL) Calcium Phosphorus Product, Adjusted (07/27/2024 [...] 2:47 PM EST Jeffy Tineo MD LAB [id number] SOLICITED RESULTS Final Result Performing Organization Address [place]/[facility]/ZIP Co de Phone Number [facility] [address] [place] [address] * (ABNORMAL) TSAT (07/27/2024 3:00 AM EST) Only the most recent of3 resultswithin the time period is included. [facility] Iron 69 50 - 170 ug/dL [facility] Transferrin 203(L) 250 - 380 mg/dL [facility] TIBC 284 211 - 406 ug/dL [facility] Iron Saturation (TSat) 24 22 - 52 % [facility] 07/27/2024 3:00 AM EST 07/28/2024 2:47 PM EST us Jeffy Tineo MD LAB BLOOD ORDERABLES Final Re sult [facility] [address] [place] [address] * (ABNORMAL) CBC and Differential (07/27/2024 3:00 AM EST) Only the most recent of3 resultswithin the time period is included. [facility] DIFFERENTIAL MANUAL, 2 Not Indicated [facility] [...] 3:00 AM EST 07/28/2024 2:44 PM EST us Jeffy Tineo MD LAB BLOOD ORDERABLES Final Re sult Performing Organization Address [facility] de Phone Number [facility] [address] [place] [address] * ALT (07/27/2024 3:00 AM EST) Only the most recent of3 resultswithin the time period is included. ALT (SGPT) 16 10 - 49 U/L [facility] 07/27/2024 3:00 AM EST 07/28/2024 2:47 PM EST us Jeffy Tineo MD LAB BLOOD ORDERABLES Final Re sult Performing Organization Address [facility] de Phone Number [facility] [address] [place] [address] * AST (07/27/2024 3:00 AM EST) Only the most recent of3 resultswithin the time period is included. AST (SGOT) 13 <34 U/L [facility] 07/27/2024 3:00 AM EST 07/28/2024 2:47 PM EST us Jeffy Tineo MD LAB BLOOD ORDERABLES Final Re sult Performing Organization Address [facility] de Phone Number [facility] [address] [place] [address] * Protein, total (07/27/2024 3:00 AM EST) Only the most recent of3 resultswithin the time period is included. Total Protein 7.4 6.4 - 8.9 g/dL [facility] 07/27/2024 3:00 AM EST 07/28/2024 2:47 PM EST us Jeffy Tineo MD LAB BLOOD ORDERABLES Final Re sult Performing Organization Address [facility] de Phone Number [facility] [address] [place] [address] * Alkaline phosphatase (07/27/2024 3:00 AM EST) Only the most recent of3 resultswithin the time period is included. Alkaline Phosphatase 115 46 - 116 U/L [facility] 07/27/2024 3:00 AM EST 07/28/2024 2:47 PM EST Jeffy Tineo MD LAB BLOOD ORDERABLES Final Re sult Performing Organization Address [facility] Phone Number [facility] [address] [place] [address] * Magnesium (07/27/2024 3:00 AM EST) Only the most recent of3 resultswithin the time period is included. Magnesium 2.4 1.9 - 2.7 mg/dL [facility] 07/27/2024 3:00 AM EST 07/28/2024 2:47 PM EST Jeffy Tineo MD LAB BLOOD ORDERABLES Final Re sult Performing Organization Address [facility] de Phone Number [facility] [address] [place] [address] * Lactate dehydrogenase (07/27/2024 3:00 AM EST) Only the most recent of3 resultswithin the time period is included. LDH 242 120 - 246 U/L [facility] 07/27/2024 3:00 AM EST 07/28/2024 2:47 PM EST Jeffy Tineo MD LAB BLOOD ORDERABLES Final Re sult Performing Organization Address [facility] de Phone Number [facility] [address] [place] [address] * (ABNORMAL) Glucose, random (07/27/2024 3:00 AM EST) Only the most recent of3 resultswithin the time period is included. Glucose 259(H) 74 - 109 mg/dL [facility] 07/27/2024 3:00 AM EST 07/28/2024 2:47 PM EST Jeffy Tineo MD LAB BLOOD ORDERABLES Final Re sult Performing Organization Address [facility] Co de Phone Number [facility] [address] [place] [address] * (ABNORMAL) Ferritin (07/27/2024 3:00 AM EST) Only the most recent of3 resultswithin the time period is included. Ferritin 1,250(H) 10 - 291 ng/mL [facility] 07/27/2024 3:00 AM EST 07/28/2024 2:47 PM EST Jeffy Tineo MD LAB BLOOD ORDERABLES Final Re sult Performing Organization Address [facility] de Phone Number [facility] [address] [place] [address] * (ABNORMAL) Creatinine, serum (07/27/2024 3:00 AM EST) Only the most recent of3 resultswithin the time period is included. Creatinine 8.75(H) 0.55 - 1.02 mg/dL [facility] 07/27/2024 3:00 AM EST 07/28/2024 2:47 PM EST Jeffy Tineo MD LAB BLOOD ORDERABLES Final Re sult Performing Organization Address [facility] de Phone Number [facility] [address] [place] [address] * Bilirubin, total (07/27/2024 3:00 AM EST) Only the most recent of3 resultswithin the time period is included. Total Bilirubin 0.5 0.3 - 1.2 mg/dL [facility] 07/27/2024 3:00 AM EST 07/28/2024 2:47 PM EST Jeffy Tineo MD LAB BLOOD ORDERABLES Final Re sult Performing Organization Address [facility] Co de Phone Number [facility] [address] [place] [address] * (ABNORMAL) Electrolyte panel (07/27/2024 3:00 AM [...] ORDERABLES Final Re sult Performing Organization Address [facility] de Phone Number [facility] [address] [place] [address] * (ABNORMAL) Hemoglobin (07/20/2024 3:00 AM EST) Only the most recent of3 resultswithin the time period is included. Hgb 10.2(L) 11.2 - 15.7 g/dL [facility] Hemoglobin x 3 30.6(L) 33.6 - 47.1 g/dL [facility] 07/20/2024 3:00 AM EST 07/21/2024 12:09 PM EST us Jeffy Tineo MD LAB BLOOD ORDERABLES Final Re sult Performing Organization Address [facility] Co de Phone Number [facility] [address] [place] [address] * PTH, Intact (06/29/2024 3:00 AM EST) [...] ORDERABLES Final Re sult Performing Organization Address [facility] de Phone Number [facility] [address] [place] [address] * Collection Date (06/24/2024 3:00 AM EST) Collection Date See Comment [facility] Comment: Patient sample received may exceed specimen stability, based on the collection date electronically provided. ??When reviewing patient results, verify collection information and consider specimen stability before acting on any critical or panic results. 06/24/2024 3:00 AM EST us Jeffy Tineo MD LAB [id number] SOLICITED RESULTS Final Result Performing Organization Address [facility] de Phone Number [facility] [address] [place] [address] * Calcium, Adjusted w Albumin (06/17/2024 3:00 AM EST) Calcium 10.0 8.6 - 10.3 mg/dL [facility] Albumin 4.2 3.6 - 5.4 g/dL [facility] Calcium, Adjusted Total 10.0 8.6 - 10.3 mg/dL [facility] 06/17/2024 3:00 AM EST 06/18/2024 2:10 PM EST us Jfefy Tineo MD LAB BLOOD ORDERABLES Final Re sult Performing Organization Address [facility] de Phone Number [facility] [address] [place] [address] * Confirmation Test HCV (06/01/2024 3:00 AM EST) Pathologist [facility] Hep C Ab Confirmation Not needed [facility] 06/01/2024 3:00 AM EST 06/02/2024 1:33 PM EST Jeffy Tineo MD LAB BLOOD ORDERABLES Final Re sult Performing Organization Address [facility] de Phone Number [facility] [address] [place] [address] * HEPATITIS C ABS W/REFLEX RNA DETECTR (06/01/2024 3:00 AM EST) Pathologist [facility] Hep C Virus Ab Non-Reacti ve Non-Reacti ve [facility] 06/01/2024 3:00 AM EST 06/02/2024 2:21 PM EST Jeffy Tineo MD LAB [id number] SOLICITED RESULTS Final Result Performing Organization Address [facility] de Phone Number [facility] [address] [address] * Aluminum level (06/01/2024 3:00 AM EST) Pathologist [facility] Aluminum 4 1 - 20 ug/L [facility] 06/01/2024 3:00 AM EST 06/02/2024 2:46 PM EST Jeffy Tineo MD LAB BLOOD ORDERABLES Final Re sult Performing Organization Address [facility] de Phone Number [facility] [address] [address] * Vitamin D 25 Hydroxy (06/01/2024 3:00 AM EST) Pathologist [facility] Vitamin D, 25-Hydroxy 48 30 - 100 ng/mL [facility] Comment: Status ? Adult ?? Pediatric Deficient: ? <20 ? <15 Insufficient: ??20-29 ?? 15-19 Sufficient: ?30-100 ??20-100 06/01/2024 3:00 AM EST 06/02/2024 2:21 PM EST Jeffy Tineo MD LAB BLOOD ORDERABLES Final Re sult Performing Organization Address [facility] de Phone Number [facility] [address] [place] [address] * Hepatitis B Surface Antibody (06/01/2024 3:00 AM EST) Hep B Surface Antibody 19 mIU/mL [facility] Comment: Interpretation: <10: No Immunity >=10: Probable Immunity 06/01/2024 3:00 AM EST 06/02/2024 2:21 PM EST Jeffy Tineo MD LAB BLOOD ORDERABLES Final Re sult Performing Organization Address [facility] de Phone Number [facility] [address] [place] [address] * Uric Acid (06/01/2024 3:00 AM EST) Uric Acid 6.0 2.3 - 6.6 mg/dL [facility] 06/01/2024 3:00 AM EST 06/02/2024 2:21 PM EST Jeffy Tineo MD LAB BLOOD ORDERABLES Final Re sult Performing Organization Address [facility] de Phone Number [facility] [address] [address] * (ABNORMAL) Hemoglobin A1c (06/01/2024 3:00 AM [...] Final Re sult [facility] [address] [place] [address] * (ABNORMAL) Lipid panel (06/01/2024 3:00 AM [...] Final Re sult [facility] [address] [place] [address] from Last 3 Months [place] Care Teams Aviation Electrician Relationship Specialty Start Date End Date Ines Zamora MD [address] [place] [id number] PCP - General 06/04/20
--- OUTSIDE RECORDS SUMMARY | 2024-08-23 19:12 | XMS_ITS | Encounter Summary ---
Author Organization [employer] Address [address] [place] [address] [address] [place] [address] Care Team Providers Care Patented Hogshead Assembler Name Role Phone Faith Mason MD Primary Care Provide r Reason for Visit * Reason Onset Date Comments FYI 08/13/2023 Encounter Details Date Type Department Care Team ([facility] st Contact Info) Description 08/13/2023 Telephone [facility] MEDICINE [address] [place], [place] [phone] Faith Mason MD [address] [place] [address] FYI Social History Tobacco Use Types Packs/Day [...] of today. Any questions contact Tameka at [phone] documented in this encounter Plan of Treatment Upcoming Encounters Date Type Department Care Team (Late st Contact Info) Description 09/20/2024 3:00 PM EDT Office Visit [facility] ADULT DENTAL [address] [place] [address] Shiva, Karen [address] [place] [address] documented as of this encounter Visit Diagnoses Not on filedocumented in this encounter Additional Health Concerns Assessment Noted Time PHQ-9 Depression Total Score: 14 023 2:21 PM EDT documented as of this encounter Care Teams Patented Hogshead Assembler Relationship Specialty Start Date End Date Faith Mason MD [address] [place] [address] PCP - General Family Medicine 04/12/19 Linda Peralta Customer Service OfficerWelt Rougher 06/08/24 documented as of this encounter
--- OUTSIDE RECORDS SUMMARY | 2024-08-23 19:12 | XMS_ITS | Encounter Summary ---
Author Organization [employer] Address [address] [facility] 7t [place] [address] Care Team Providers Care Child Care Nurse Name Role Phone Faith Mason MD Primary Care Provide r Reason for Visit * Reason Comments Med Refill Encounter Details Date Type Department Care Team (Late st Contact Info) Description 04/04/2024 Refill [facility] [address] [place], [place] [phone] Faith Mason MD [address] [place] [address] Essential hypertension Social History Tobacco Use Types [...] Description 09/20/2024 3:00 PM EDT Office Visit [facility] ADULT DENTAL [address] [place] [address] Shiva, Karen [address] [place] [address] documented as of this encounter Visit Diagnoses Diagnosis Essential hypertension Unspecified essential hypertension documented in this encounter Additional Health Concerns Assessment Noted Time PHQ-9 Depression Total Score: 6 11/24/19 24 2:35 PM EDT documented as of this encounter Care Teams Child Care Nurse Relationship Specialty Start Date End Date Faith Mason MD [address] [place] [address] PCP - General Family Medicine 04/12/19 Linda Peralta Assurance AuditorInstrument Mechanic 06/08/24 documented as of this encounter
--- OUTSIDE RECORDS SUMMARY | 2024-08-23 19:12 | XMS_ITS | Encounter Summary ---
Author Organization [facility] Address [address] [place] [address] [address]t [place] [address] Care Team Providers Care E Mail System Administrator Name Role Phone Faith Mason MD Primary Care Provide r Reason for Visit * Reason Onset Date Comments CHART PREP 08/22/2024 Encounter Details Date Type Department Care Team ([facility] st Contact Info) Description 08/22/2024 Telephone [facility] MEDICINE [address] [place], [place] [phone] Faith Mason MD [address] [place] [address] CHART PREP Social History Tobacco Use Types Packs/Day Years [...] encounter Miscellaneous Notes * Telephone Encounter - Ken Partida [place] - 08/22/2024 4:07 PM EDT Chart Prep Labs: not applicable Images: done Vaccines due: yes DTaP, Zoster, Pneumo, covid Referrals: none Screenings: eye exam , Foot Exam Overdue care gaps: A1C, Glucose, Sbirt, SDOH, PHQ-9, Oral Health, DIANDRA-7, Disability documented in this encounter Plan of Treatment Upcoming Encounters Date Type Department Care Team (Late st Contact Info) Description 09/20/2024 3:00 PM EDT Office Visit [facility] ADULT DENTAL [address] [place] [address] Shiva, Karen [address] [place] [address] documented as of this encounter Visit Diagnoses Not on filedocumented in this encounter Additional Health Concerns Assessment Noted Time PHQ-9 Depression Total Score: 6 11/24/19 24 2:35 PM EDT documented as of this encounter Care Teams E Mail System Administrator Relationship Specialty Start Date End Date Faith Mason MD [address] [place] [address] PCP - General Family Medicine 04/12/19 Linda Peralta Industrial RooferOyster Shucker 06/08/24 documented as of this encounter
--- OUTSIDE RECORDS SUMMARY | 2024-08-23 19:12 | XMS_ITS | Data Portability ---
Author Organization [place] - [facility] Address [address] [place] [address] [id number] [place] [address] Assessment No assessment recorded. Plan of Treatment Reminders Order Date Submit Date Provider Last Modified By Organization Details Last Modified Time Details Appointments None recorded. Lab pap, IG + HPV 2016 017 [facility], [address] [place], [address] 7 07:56:44 Referral None recorded. Procedures None recorded. Surgeries None recorded. Imaging MAMMO, diagnostic, digital, unilateral 2016 017 hbender Not available 7 08:23:09 Medication Orders None recorded. Patient TargetsNo targets recorded. Patient Instructions Encounter Date Encounter Id Patient Instructions Last Modified By Organization Details Last Modified Time 11/04/2016 [id number] Discussed new pap smear guidelines, pt agreeable [...] types from this sourc e. Not Available [facility] [address] [place], [place], 11/06/2016 07:56:44 11/05/19 17 11/06/2016 pap, IG + HPV report GYNEC OLOGI BIJU CYTOL OGY REPOR T A. THINP REP PAP (IMAG ER) WITH HPV SCREE N AND REFLE X TO HPV 16,18 /45: SPECI MEN ADEQU ACY: SATIS FACTO RY FOR EVALU ATION . INTER PRETA TION: NEGAT CONSUELO FOR INTRA EPITH ELIAL JR Tolentino OR CHAZ BISHOP . Elect toshia [...] ThinP rep Imagi ng nila Alexis other [facility] d. The Pap test is a scree key test with an inher ent false negat consuelo rate. [facility] , [address] [place], [place] CLIA [id number] CL-PO [id number] 7. Not Available [facility] [address] [place], [place], 11/06/2016 07:56:44 Result Notes None recorded. Problems Name Problem SNOMED Code Status Onset Date Resolution Date Notes Provider Name and Address Organization Details Recorded Time Diabetes mellitus 92283026 Active 2016 Juliana arizmendi, [place] - [facility] 7 15:55:41 Chronic endometritis 28758235 Active 2016 Juliana arizmendi, [place] - [facility] 15:55:49 Problem Notes None recorded. Procedures Surgical History Date Name Laterality Status Provider Name and Address Organization Details Recorded Time 11/04/2016 [id number] completed PAVAN BERNABE, [address] [facility] [facility], [place], [address], [facility] 11/04/2016 17:17:09 11/04/2016 [id number] completed PAVAN KIDD DO [address] [facility] [facility], [place], [address], [facility] 11/04/2016 17:17:05 05/25/1996 Other completed Juliana Gonzales [facility] 11/04/2016 16:01:20 05/25/1996 Other completed Juliana Gonzales [facility] 11/04/2016 16:03:12 Imaging Results None recorded. [...] Updated DateTime 11/04/2016 160.02 cm 40.4 kg/m2 448148.0 6 g 132 mm[Hg] 60 mm[Hg] Juliana Gonzales [facility] 7 15:53:30 Social History Question Answer Notes LastModified by Organizat ion Details LastModified Time Tobacco Smoking Status Never Smoker Julianamaribel Gonzales null, [facility] 11/04/2016 15:58:24 What Is Your Level [...] SNOMED-CT Code Diagnosis ICD10 Code Diagnosis Note [id number] PAVAN KIDD DO SHO1 [address],[facility] [address] [place] [address] 11/04/2016 15:42:27 11/04/2016 17:00:22 Gynecologic examination 94438032 Z01.411 51 yo annual exam Mass of left breast 1224 568146 [id number] N63 Health Concerns Section Related Observation LastModified by Organization Detai ls LastModified Time None Recorded Concern Status LastModified by Organization Details LastModified Time None Recorded Advance Directives Directive None Recorded Payers Encounter Date Sequence Insurance Name Policy Number Policy Dpuont Covered Member ID Dupont Member ID Guarantor Name 11/04/2016 1 [place] Sarah Madden [id number] Sarah Madden Notes Date Note Type Note Provider Name and Address Organization Details Recorded Time 11/04/2016 text/html [facility] Annual GYNReported bypatient.Menstrua l cycle:Perimenopaus al(LMP 06/2015) Vagina:Normal vaginal discharge Breast:No nipple discharge;Breast Pain Bilateral;Breast lump(left inner breast-getting larger) Current Contraception:Allen gamous relationship Sexual complaints:No pain during intercourse Preventive measures:Encourage self breast examination; Encourage regular exerciseNotes:51 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 Pt is Swiss speaking only-wants to interpret, declined professional spanish interpreter. last Parole Agent exam was about 5 yrs ago in [place]. c/o B/L breast tenderness for past 5 yrs with more recent? ? ? increase in left breast balls. PAVAN KIDD DO [address], [place], [address], [place] [facility] 11/04/2016 17:24:08 OBGyn Episode No OBEpisode recorded.
--- OUTSIDE RECORDS SUMMARY | 2024-08-23 19:12 | XMS_ITS | Encounter Summary ---
Author Organization [employer] Address [address] [place] [address] Care Team Providers Care Bowl Topper Name Role Phone Faith Mason MD Primary Care Provide r Encounter Details Date Type Department Care Team ([facility] st Contact Info) Description 08/05/2024 Telephone [facility] [address], [place] [phone] Faith Mason MD [address] [place], [place] [phone] Social History Tobacco Use Types Packs/Day Years [...] Description 09/20/2024 3:00 PM EDT Office Visit [facility] AD[facility] [address] [place] [address] Shiva, Karen [address] [place] [address] documented as of this encounter Visit Diagnoses Not on filedocumented in this encounter Additional Health Concerns Assessment Noted Time PHQ-9 Depression Total Score: 6 11/24/19 24 2:35 PM EDT documented as of this encounter Care Teams Bowl Topper Relationship Specialty Start Date End Date Faith Mason MD [address] [place] [address] PCP - General Family Medicine 04/12/19 Linda Peralta Membership Sales RepresentativeAcute Dialysis Registered Nurse 06/08/24 documented as of this encounter
--- OUTSIDE RECORDS SUMMARY | 2024-08-23 19:12 | XMS_ITS | Clinical Summary ---
Author Organization [employer] Address [address] [place] [address] 7[address] [place] [address] Care Team Providers Care Radiation Control Worker Name Role Phone Faith Mason MD [...] 024 Active Blood Glucose Monitoring Suppl (FreeStyle Kinderhook Lite) w/Device kitIndications:Ty pe 2 diabetes mellitus with hyperglycemia, with long-term current use of insulin ([facility]) Use to test blood sugar 3 times daily 1 kit 024 Active TRUEplus Lancets 33G miscIndications:T ype 2 diabetes mellitus with hyperglycemia, with long-term current use of insulin ([facility]) TEST BLOOD SUGAR THREE TIMES [...] hyperglycemia, with long-term current use of insulin ([facility]) USE DIRECTED THREE TIMES DAILY 100 each 11 024 Active insulin glargine (Toujeo Max SoloStar) 300 UNIT/ML injectionIndicati ons:Type 2 diabetes mellitus with hyperglycemia, with long-term current use of insulin ([facility]) INJECT 28 UNITS SUBCUTANEOUSLY EVERY DAY 6 mL 1 024 Active sodium chloride (Gilmer) 0.65 % nasal spray Administer 1 spray [...] MG EC tabletIndications :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 236 mL 024 Active brimonidine (AlphaGAN) 0.2 % ophthalmic solution Administer 1 drop into the left eye 3 times daily. Active Continuous Glucose Tool Crib Lead (FreeStyle Tika 3 [place]) device Use as directed Active Continuous Glucose Sensor (FreeStyle Tika 3 Sensor) [facility] USE DIRECTED TO TEST BLOOD SUGAR CHANGE [...] the left eye 3 times daily. Active Acetaminophen Extra Strength 500 MG tabletIndications [...] IN THE EVENING 60 tablet 025 Active gabapentin (Neurontin) 300 MG capsuleIndication s:Right arm pain,Numbness and tingling of right arm Take 1 capsule (300 mg) by mouth at bedtime. 30 capsule 2 025 2025 Active polycarbophil (FiberCon) 625 MG tabletIndications :Constipation, [...] NOON 90 tablet 1 024 2024 Discontinued gabapentin (Neurontin) 100 MG capsuleIndication s:Diabetic polyneuropathy associated with type 2 diabetes mellitus (CMS/HCC) TAKE 1 CAPSULE BY MOUTH TWICE DAILY IN THE MORNING AND IN THE EVENING 60 capsule 025 2024 Discontinued apixaban (Eliquis) 5 MG tabletIndications :Atrial flutter, unspecified type (CMS/HCC) TAKE 1 TABLET BY MOUTH TWICE DAILY IN THE MORNING AND IN THE EVENING 60 tablet 025 2024 Discontinued Active Problems Patient Care Coordination No te Formatting of this note migh t be different from the original. C3/CM Blossom Martino RN, Chart Review Problem Noted Date Diagnosed Date Pap smear for cervical cancer screening 08/24/19 25 Pelvic pain 08/23/2024 Right arm pain 08/23/2024 Numbness and tingling of right arm 08/23/2024 Internal nasal lesion 08/23/2024 Chronic nonintractable headache 05/26/2024 Assessment & Plan [...] (05/21/2022 9:19 AM EST): -Currently followed by [facility] Endo - last available consult note Jan 2022 w/ Dr. Miller -Continues with current med regimen: -Januvia 25mg PO daily -Tuojeo insulin 28 units subcutaneous daily -Lispro AC per SS -Dexcom ordered and managed through [facility] Endo -Strongly encourage pt to [...] 9:12 AM EST): -Continues with HD on M//F -Low potassium diet, continues sevelamer with meals [...] remission 09/02/2018 Coronary artery disease invo lving yomba shoshone coronary artery of yomba shoshone heart with unstable angina pectoris 06/03/2018 Calculus of kidney 06/03/2018 Atypical chest pain 06/03/2018 Chronic endometritis 11/04/2016 Resolved Problems Problem Noted Date Diagnosed Date Resolved Date Type 2 diabetes mellitus without complication 09/03/19 19 05/21/2022 Encounters Date Type Department Care Team Description 08/23/2024 2:00 PM EDT Office Visit [facility] [address] [place] [address] Faith Mason MD Pap smear for cervical cancer screening (Primary Dx); Pelvic pain; Right arm pain; Numbness and tingling of right arm; Internal nasal lesion 08/23/2024 Travel 08/22/2024 Telephone [facility] MEDIC[facility] [address] [place] [address] Faith Mason MD CHART PREP 08/05/2024 Telephone [facility] [address] [place] [address] Faith Mason MD 08/05/2024 Refill [facility] [address] [place] [address] Faith Mason MD Atrial flutter, unspecified type (CMS/HCC) 08/05/2024 Telephone [facility] [address] [place] [address] Faith Mason MD 08/05/20[address] [facility] () Department [address] [place] [phone] Provider, Population Health Generic 07/29/2024 Telephone [facility] [address] [place] [address] Faith Mason MD telephone call 07/29/2024 Telephone [facility] [address] [place] [address] Faith Mason MD Appointment Request 07/27/2024 Orders Only GENERIC EXTERNAL DATA DEPARTMENT Provider, Generic External Data 07/25/2024 Refill [facility] [address] [facility] [place] [address] Faith Mason MD 07/23/2024 Refill [facility] [address] [facility] [place] [address] Faith Mason MD Constipation, unspecified constipation type 07/19/2024 Orders Only GENERIC EXTERNAL DATA DEPARTMENT Provider, Generic External Data 07/18/2024 Orders Only [facility] [address] [place] [address] Faith Mason MD 07/18/2024 Refill [facility] [address] [facility] [place] [address] Faith Mason MD Other constipation 07/05/2024 Orders Only GENERIC EXTERNAL DATA DEPARTMENT Provider, Generic External Data 06/17/2024 Refill [facility] [address] [place] [place], [place] [address] Faith Mason MD 06/17/2024 Refill [facility] [address] [place], [place] [address] Faith Mason MD Atrial flutter, unspecified type (CMS/HCC) 06/16/2024 Telephone [facility] [address] [place] [address] Faith Mason MD 06/08/2024 Telephone [facility] [address] [place] [address] Faith Mason MD Care Coordination (ICP Care Plan) 06/07/2024 10:00 AM EST Office Visit [facility] [address] [facility] [place] [address] Karen Shannon 06/03/2024 Orders Only [facility] [address] [place] [address] Faith Mason MD Post-menopausal bleeding (Primary Dx) 05/31/2024 Refill [facility] [address] [place] [address] Faith Mason MD Atrial flutter, unspecified type ([facility]); Diabetic polyneuropathy associated with type 2 diabetes mellitus ([facility]); Polyarthralgia 05/26/2024 9:30 AM EST Office Visit [facility] [address] [facility] [place] [address] Faith Mason MD Other constipation (Primary Dx); Essential hypertension; Type 2 diabetes mellitus with hyperglycemia, with long-term current use of insulin ([facility]); Metabolic encephalopathy; Chronic nonintractable headache, unspecified headache type 05/26/2024 Travel from Last 3 Months Immunizations Name Administration [...] Sign Reading Time Taken Comments Blood Pressure 153/66 08/23/2024 1:50 PM EDT Pulse 52 08/23/2024 1:50 PM EDT Temperature 35.3 ??C (95.6 ??F) 08/23/2024 1:50 PM ED T Respiratory Rate 16 08/23/2024 1:50 PM EDT Oxygen Saturation 100% 08/23/2024 1:50 PM EDT Inhaled Oxygen Concentration - - Weight 100 kg (221 lb 6 oz) 08/23/2024 1:50 PM E DT Height 160 cm (5' 3 ) 08/23/2024 1:50 PM EDT Body Mass Index 39.21 08/23/2024 1:50 PM EDT Plan of Treatment Upcoming Encounters Date Type Department Care Team (Late st Contact Info) Description 09/20/2024 3:00 PM EDT Office Visit [facility] [address] [place] [address] Shiva, Karen [address] [place] [address] Health Maintenance Due Date Last Done Comments [...] Screening 12/23/2024 12/24/2023 SDOH Screening 12/23/2024 12/24/2023 Mammogram 07/18/2025 07/18/2024, 06/26, 02/01/2020 Tobacco Screening 08/23/2025 08/23/2024 Colorectal Cancer Screening 09/16/2026 FIT DNA/Cologuard 09/16/2026 [...] Procedure Name Priority Date/Time Associated Diagnosis Comments POCT URINALYSIS DIPSTICK Routine 08/23/2024 3:08 PM EDT Pelvic pain CELL BLOCK Routine 07/27/2024 9:26 AM EST GLUCOSE, WHOLE BLOOD Routine 07/19/2024 2:14 PM EST BI MAMMOGRAM SCREENING TOMOSYNTHESIS BILATERAL Routine 07/18/2024 11:24 AM EST GLUCOSE, WHOLE BLOOD Routine 07/05/2024 2:43 PM EST NO CHARGE VISIT Routine 06/07/2024 10:00 AM EST POCT GLYCATED HEMOGLOBIN, TOTAL Routine 03/17/2024 3:42 PM EDT Type 2 diabetes mellitus with hyperglycemia, with long-term current use of insulin ([facility]) HEPATITIS PANEL, GENERAL Routine 01/26/2024 2:16 PM [...] to Health Maintenance Results * (ABNORMAL) POCT Urinalysis (08/23/2024 3:08 PM EDT) Color, UA Yellow Clarity, UA Clear Glucose, UA 3+ 500+++ Comment:500 Bilirubin, UA Negative Ketones, UA Negative Spec Grav, UA 1.020 Blood, UA Positive(A) Negative, None Detected Comment:moderate pH, UA 7.5 Protein, UA 2+ 125++ Comment:300 Urobilinogen, UA 0.2 Leukocytes, UA Trace Negative, Rare, Trace Comment:small Nitrite, UA Negative Negative, None Detected Appearance, UA yellow Urine 08/23/2024 3:08 PM EDT us Faith No MD POINT OF CARE TEST EN TER/EDIT ORDERABLES Final Result * Cell Block (07/27/2024 9:26 AM EST) 07/27/2024 9:26 AM EST 07/27/2024 11:45 AM EST Narrative [facility] - 07/29/2024 3:17 PM EST ----- ------- Name: Sarah Dixon ? Age/Sex: 59/F ? : 1965 Unit#: [id number] ?? Attend Dr: Therese Bateman MD ?Re07/27/24 ?Status: DEP REF ? Location: HO.US ? Disch: ? ----- ------- SPEC : [id number] ? RECD: 07/27/24 ? STATUS: ??SOUT ? REQ NUM: [id number] ? NADJA: 07/27/24 ? SUBM DR: Therese Bateman MD ? ENTERED: ??07/27/24 ?SP TYPE: Cytology ? OTHR DR: Faith Mason MD ? ORDERED: ??Cell Block, Fine Ndl Asp ? Diagnosis ?? Thyroid, left mid nodule, fine needle aspiration biopsy (cytology and cell block): ? -[place] System Classification:? Non-diagnostic (category 1) ? -Description:? [...] Copies To: ?? Faith Mason MD ?? [facility] ?? [address] ?? [place] [address] ?? [phone] ?? Therese Bateman MD ?? [facility] Endocrinology ?? [address] ?? [place] [address] ?? [phone] ?? [email or web address] ----- ------- Signed (signature on file) Brigida Andrews 07/29/24 1517 ? ----- ------- ? END OF REPORT ? us Generic External Data Provider LAB CYTOLOGY PONCHO ABEL Final Result [facility] [address] [place] [address] [phone] * (ABNORMAL) Glucose, Whole Blood (07/19/2024 2:14 PM EST) Only the most recent of2 resultswithin the time period is included. Pathologist [facility] Glucose, Whole Blood 230(H) 60 - 115 mg/dL [facility] Comment:METER #: [id number] Testing performed in the Endocrinology Department [facility], [address], [address], [place]. 07/19/2024 2:14 PM EST 07/19/2024 2:29 PM EST us Generic External Data Provider LAB BLOOD ORDERAB LES Final Result [facility] [address] [facility] [place] [place] [address] [phone] * BI Mammogram Screening Tomosynthesis Bilateral (07/18/2024 11:24 AM EST) Anatomical Region Laterality Modality Breast Bilateral Mammography 07/18/2024 11:2 4 AM EST Narrative 07/23/2024 12:27 PM EST ? [facility] ? [address] ?[place] [address] ? Mammography Report ? Signed ? Patient: Madden Colon,Sarah ?MR#: [id number] ?? [id number] ? : 1965 ?Acct:[id number] ? Age/Sex: 59 / F ?ADM Date: 07/18/25 ? Loc: HO.MAMMO ? Attending Dr: Faith No MD ? Ordering Physician: Faith Mason MD ?Results: ?? 1Negative ? Date of Service: 07/18/25 ?Follow Up: 1 Year From Orig ?? inal Mammogram ? Procedure(s): MM tomosynthesis screening BI ?? Accession Number(s): [id number] ? cc: Faith Mason MD ? EXAMINATION: [...] 07/23/24 1223 ? DD/ 1124 ? TD/TT: 07/18/244 ? Gang Tailer: ? Procedure Note Roseanna, Image - 07/23/2024 [facility] [address] [place] [address] [place] [address] Mammography Report Signed Patient: Hira DixontaMR#: [id number] : 1965Acct:[id number] Age/Sex: 59 / FADM Date: 07/18/24 Loc: HO.MAMMO Attending Dr: Faith No MD Ordering Physician: Faith Mason MDResults: 1Negative Date of Service: 07/18/24Follow Up: 1 Year From Orig ina Mammogram Procedure(s): MM tomosynthesis screening BI Accession Number(s): [id number] cc: Faith Mason MD EXAMINATION: MM SCREENING [...] by: Alicia Archuleta DO 07/23/2024 12:23 PM [facility] Dictated By: Alicia Archuleta DO Signed By: <Electronically signed by Alicia Archuleta DO in OV> 07/23/24 1223 DD/ 1124 TD/TT: 07/18/24 1124 Gang Tailer: us Faith No MD IMG BI PROCEDURES Yoshi telma Result - Final * (ABNORMAL) POCT HGB A1C (03/17/2024 3:42 PM EDT) Hemoglobin A1C 7.8(A) 4.0 - 6.0 % QC Media Lot # [id number] Lot# Expiration Date Blood 03/17/2024 3:42 PM EDT Faith Schroeder [place] No MD POINT OF CARE TEST EN TER/EDIT ORDERABLES Final Result * Hepatitis Panel, General (01/26/2024 2:16 PM EDT) Hepatitis A IgM REACTIVE (Abnormal) Nonreactive [facility] Comment:For additional infor mation, please refer tohttp://[employer]/faq/DJG775(This link is being provided for informational/educational purposes only.)THIS TEST PERFORMED AT:[facility] [address] [phone] DIRECTOR: EVITA ALICEA MD ~Hepatitis B Surface Antibody REACTIVE (Abnormal) Nonreactive [facility] Comment:THIS TEST PERFORMED AT:[facility] [address] [phone] DIRECTOR: EVITA ALICEA MD Hepatitis B Core Antibody NON-REACTI VE Nonreactive [facility] Comment:For additional infor mation, please refer tohttp://[employer]/faq/IOF965(This link is being provided for informational/educational purposes only.)THIS TEST PERFORMED AT:[facility] [address] [phone] DIRECTOR: EVITA ALICEA MD Hepatitis C Antibody NON-REACTI VE Nonreactive [facility] Comment:HCV antibody was non -reactive. There is no laboratoryevidence of HCV infection.In most cases, no further action is required. However,if recent HCV exposure is suspected, a test for HCV RNA(test code 26779) is suggested.For additional information please refer tohttp://[facility]/faq/RNF40t3(This link is being provided for informational/educational purposes only.)THIS TEST PERFORMED AT:[facility] [address] [phone] DIRECTOR: EVITA ALICEA MD Hepatitis B Surface Ag NON-REACTI VE Negative [facility] Comment:For additional infor mation, please refer tohttp://[employer]/faq/YPM487(This link is being provided for informational/educational purposes only.)THIS TEST PERFORMED AT:[facility] [address] [phone] DIRECTOR: EVITA ALICEA MD Blood 01/26/2024 2:16 PM EDT 01/26/2024 4:08 PM EDT Faith No MD LAB BLOOD ORDERABLES Final Result [facility] [address] [place] [phone] * HIV-1/2 Antigen and Antibodies, Fourth Generation, with Reflexes (01/26/2024 2:16 PM EDT) HIV AB/AG NON-REAC TIVE Nonreactive [facility] Comment:HIV-1 antigen and HI V-1/HIV-2 [...] for this purpose.For additional information please refer tohttp://[employer]/faq/QKZ997(This link is being provided for informational/educational purposes only.)The performance of this assay has not been clinicallyvalidated in patients less than 2 years old.THIS TEST PERFORMED AT:[facility] [address] [phone] DIRECTOR: EVITA ALICEA MD Blood Venous blood specimen / Unknown 01/26/2024 2:16 PM EDT 01/26/2024 4:08 PM EDT us Faith No MD LAB BLOOD ORDERABLES Final Result Performing Organization Address [facility] Co de Phone Number [facility] [address] [place] [phone] * (ABNORMAL) Lipid Panel with Reflex to Direct LDL (12/01/2023 1:06 PM EDT) Triglycerides 81 <150 mg/dL [facility] Comment:Desirable Triglyceri de: less than 150 mg/dLBorderline High Triglyceride 150-199 mg/dLHigh Triglyceride: 200-499 mg/dLVery High Triglyceride: greater than or equal to 5OO mg/dL Cholesterol 77 <200 mg/dL [facility] Comment:Desirable Cholestero l: less than 200 mg/dLBorderline High Cholesterol: 200-239 mg/dLHigh Cholesterol: greater than 239 mg/dL LDL Cholesterol Calculated 30 <100 mg/dL [facility] Comment:Desirable LDL: less than 100 mg/dLNear Optimal/Above Optimal LDL: 110- 129 mg/dLBorderline High LDL: 130-159 mg/dLHigh LDL: 160-189 mg/dLVery High LDL: greater than or equal to 190 mg/dL HDL Cholesterol 31(L) >40 mg/dL [facility] Comment:Desirable HDL: great er than 40 mg/dL Note: This HDL assay may give artificially low results in patients with liver disease. Blood 12/01/2023 1:06 PM EDT 12/01/2023 1:11 PM EDT us Faith No MD LAB BLOOD ORDERABLES Final Result Performing Organization Address [facility]/ZIP Co de Phone Number [facility] [address] [place] [phone] * HPV mRNA E6/E7 w/Reflex to HPV Genotypes 16, 18/45 (10/13/2023 10:05 AM EDT) HPV nRNA E6/E7 Not Detected Not Detected [facility] Comment:Methodology: Transcr iption-Mediated AmplificationThis assay detects E6/E7 viral messenger RNA (mRNA) from 14high-risk HPV types (16,18,31,33,35,39,45,51,52,56,58,59,66,68).Cervical sources are required for HPV testing.If a vaginal source from a patient who has had atotal hysterectomy with removal of cervix wassubmitted, please contact the testing laboratoryfor alternative testing options.For additional information, please refer tohttp://education.[employer] Ideal[employer]/faq/TLX694v0(This link if provided for information/educational purposes only.)THIS TEST WAS PERFORMED AT:[facility] [place] [phone] ALICEA MD HPV mRNA E6/E7 [facility] HPV 16 [facility] HPV 18/45 RNA [facility] 10/13/2023 10:0 5 AM EDT 10/14/2023 11:40 AM EDT Ofelia Haskins [facility] LAB CYTOLOGY ORDERABLES F inal Result [facility] [address] [place] [phone] * Pap Smear (10/13/2023 10:05 AM EDT) Swab Cervix uteri structure / Unknown 10/13/2023 10:05 AM EDT 10/14/2023 11:40 AM EDT Narrative [facility] - 11/02/2023 10:48 AM EDT ----- ------- Name: Sarah Dixon ? Age/Sex: 58/F ? : 1965 Unit#: [id number] ?? Attend Dr: OFELIA HASKINS CNM ?Re10/13/23 ?Status: DEP REF ? Location: HO.HHCLNP ? Disch: ? ----- ------- SPEC : [id number] ? RECD: 10/14/23 ? STATUS: ??SOUT ? REQ NUM: [id number] ? NADJA: 10/13/23-5 ? SUBM DR: OFELIA HASKINS CNM ? ENTERED: ??10/14/23-0051 ?SP TYPE: Pap Smr ?OTHR : ? [...] 66, 68) ? HPV testing performed by [facility], [place], [place]. ??See reference laboratory ?? portion of the EMR for entire report. ?Clinical Information LMP:Post menopausal Previous PAP test:Unk ? Material Received ?? ThinPrep-Cervical ----- ------- Signed (signature on file) Debo Schroeder Robbie 11/02/23 8008 ? ----- ------- ? END OF REPORT ? us Ofelia Haskins [facility] LAB CYTOLOGY ORDERABLES F inal Result [facility] [address] [place], [place] [phone] * Cologuard?? colon cancer screening (09/17/2023 12:00 PM EDT) Cologuard Result Negative Negative 09/25/19 10:09 AM EDT [facility] (CLIA #:[id number]) Comment: NEGATIVE TEST RESULT. A negative Cologuard [...] Horne. et al, N Engl J Med 2014;370(14):1286- 1297) The normal value (reference range) for this assay is negative. COLOGUARD RE-SCREENING RECOMMENDATION: Periodic colorectal cancer screening is an important part of preventive healthcare for asymptomatic individuals at average risk for colorectal cancer. ??Following a negative Cologuard result, the [place] Cancer Society and U.S. Multi-Society Task Force screening guidelines recommend a Cologuard re-screening interval of 3 years. References: [place] Cancer Society Guideline for Colorectal Cancer Screening: https://www.cancer.org/cancer/wwxdi-vccfbp-yolanc/wnnunmunc-ymmjtbcwj-psyvhca/ac s-rec ommendations.html.; Maix MACIAS, Robinson REESE, Barry TateK, Colorectal Cancer Screening: Recommendations for Physicians and Patients from the U.S. Multi-Society Task Force on Colorectal Cancer Screening , Am J Gastroenterology 2017; 112:8347-6750. TEST DESCRIPTION: Composite algorithmic analysis of stool [...] Horne. et al, N Engl J Med 2014;370(14):3474-1982.) Cologuard may produce a false negative or false positive result (no colorectal cancer or precancerous polyp present at colonoscopy follow up). A negative Cologuard test result does not guarantee the absence of CRC or advanced adenoma (pre-cancer). The current Cologuard screening interval is every 3 years. ([place] Cancer Society and U.S. Multi-Society Task Force). Cologuard performance data in a 10,000 patient pivotal study using colonoscopy as the reference method can be accessed at the following location: www.RealD/results. Additional description of the Cologuard test process, warnings and precautions can be found at www.Trippyrd.com. Stool specimen (specimen) 09/17/2023 12:00 PM EDT 09/18/2023 10:51 AM EDT us Faith No MD LAB MOLECULAR DIAGNOS TICS ORDERABLES Final Result [facility] (CLIA #:[id number]) [place] [address], [place] [phone] * MICROALBUMIN, RANDOM (07/23/2020 9:00 AM EST) Creatinine Urine 140.39 mg/dL [facility] Microalbum/Creati nine Ratio Ur 419.5 ug/mg cr [facility] Comment: ?Albumin/Creatinine Ratio Reference Ranges: ? Normal: < 30 ug/mg creatinine ? Microalbuminuria: ??30 - 300 ug/mg creatinine Clinical Albuminuria: ??> 300 ug/mg creatinine Microalbumin Urine 589.0 mg/L [facility] 07/23/2020 9:00 AM EST us Historical Provider HISTORICAL/NON ORDERABLE LABS Final Result Performing Organization Address City/State/[facility] Co de Phone Number [facility] [address] from Last 3 Months or Most Recently Relevant to Health Maintenance Insurance [facility] C3 DENTAL-[facility] MEDICAID STAND ADULT Care Teams Radiation Control Worker Relationship Specialty Start Date End Date Faith Mason MD [address] [place] [phone] PCP - General Family Medicine 04/12/19 Linda Peralta Worship LeaderStreet Supervisor 06/08/24
--- OUTSIDE RECORDS SUMMARY | 2024-08-23 19:12 | XMS_ITS | Encounter Summary ---
Author Organization [employer] Address [address] [facility] [address] [place] [address] Care Team Providers Care Vp Organizational Development Name Role Phone Faith Mason MD Primary Care Provide r Encounter Details Date Type Department Care Team ([facility] st Contact Info) Description 07/17/2023 Telephone [facility] [address] [place], [place] [phone] Faith Mason MD [address] [place], [place] [phone] Social History Tobacco Use Types Packs/Day Years [...] Description 09/20/2024 3:00 PM EDT Office Visit [facility] ADULT DENT[facility] [address] [place] [address] Shiva, Karen [address] [place] [address] documented as of this encounter Visit Diagnoses Not on filedocumented in this encounter Additional Health Concerns Assessment Noted Time PHQ-9 Depression Total Score: 14 023 2:21 PM EDT documented as of this encounter Care Teams Vp Organizational Development Relationship Specialty Start Date End Date Faith Mason MD [address] [place] [address] PCP - General Family Medicine 04/12/19 Linda Peralta Hand I Tube BenderTie Bucker 06/08/24 documented as of this encounter
--- OUTSIDE RECORDS SUMMARY | 2024-08-23 19:12 | XMS_ITS | Encounter Summary ---
Author Organization [employer] Address [address] [place] [address] [address] [place] [address] Care Team Providers Care Bordereau Clerk Name Role Phone Faith Mason MD Primary Care Provide r Reason for Visit * Reason Onset Date Comments Durable Medical Equipment 11/05/2023 Encounter Details Date Type Department Care Team ([facility] st Contact Info) Description 11/05/2023 Telephone [facility] MEDICINE [address] [place], [place] [phone] Faith Mason MD [address] [place] [address] Durable Medical Equipment Social History Tobacco Use [...] 11/05/2023 12:47 PM EDT Silver Mckeon at [facility] calling to request the following DME. Shower Chair Shower grab bars Wheel chair Rolator walker with seat documented in this encounter Plan of Treatment Upcoming Encounters Date Type Department Care Team (Late st Contact Info) Description 09/20/2024 3:00 PM EDT Office Visit [facility] ADULT DENTAL [address] [place] [address] Shiva, Karen [address] [place] [address] documented as of this encounter Visit Diagnoses Not on filedocumented in this encounter Additional Health Concerns Assessment Noted Time PHQ-9 Depression Total Score: 14 023 2:21 PM EDT documented as of this encounter Care Teams Bordereau Clerk Relationship Specialty Start Date End Date Faith Mason MD [address] [place] [address] PCP - General Family Medicine 04/12/19 Linda Peralta Clinical BiostatisticianCeramic Coater 06/08/24 documented as of this encounter
--- OUTSIDE RECORDS SUMMARY | 2024-08-23 19:12 | XMS_ITS | Encounter Summary ---
Author Organization [employer] Address [address] [place] [address] 7t [place] [address] Care Team Providers Care Network Intern Name Role Phone Faith Mason MD Primary Care Provide r Reason for Visit * Reason Comments Med Change Request Encounter Details Date Type Department Care Team (Late Contact Info) Description 11/28/2022 Refill [facility] MEDICINE [address] [place], [place] [phone] Faith Mason MD [address] [place] [address] Type 2 diabetes mellitus with hyperglycemia, with long-term current use of insulin ([facility]) Social History Tobacco Use [...] Department Care Team (Late Contact Info) Description 09/20/2024 3:00 PM EDT Office Visit [facility] ADULT DENTAL [address] [place] [address] Karen Shannon [address] [place] [address] documented as of this encounter Visit Diagnoses Diagnosis Type 2 diabetes mellitus with hyperglycemia, with long-term current use of insulin ([facility]) documented in this encounter Additional Health Concerns Assessment Noted Time PHQ-9 Depression Total Score: 14 023 2:21 PM EDT documented as of this encounter Care Teams Network Intern Relationship Specialty Start Date End Date Faith Mason MD [address] [place] [address] PCP - General Family Medicine 04/12/19 Linda Peralta Paper Wood CutterIt Help Desk Associate 06/08/24 documented as of this encounter
--- OUTSIDE RECORDS SUMMARY | 2024-08-23 19:12 | XMS_ITS | Encounter Summary ---
Author Organization [employer] Address [address] [place] [address] 7t [place] [address] Care Team Providers Care Bench Scientist Name Role Phone Faith Mason MD Primary Care Provide r Reason for Referral * Consultation (Routine) - Pending Review Specialty Diagnoses / Procedures Referred By Juan Carlos aiken Referred To Contact Otolaryngology Diagnoses Internal nasal lesion Faith Mason MD [address] [place] [address] Phone: tel: fax: Referral ID Status Reason Start Date Expiration Date Visits Requested Visits Authorized [id number] Pending Review Specialty Services Required 08/23/2024 08/23/2025 1 1 * Neurology (Routine) - Authorized Specialty Diagnoses / Procedures Referred By Juan Carlos aiken Referred To Contact Diagnoses Right arm pain Numbness and tingling of right arm Procedures EMG Faith Mason MD [address] [place] [address] Phone: tel: fax: [address] Phone: tel: fax: Referral ID Status Reason Start Date Expiration Date V isits Requested Visits Authorized [id number] Authorized 08/23/2024 08/23/2025 1 1 * Neurology (Routine) - Authorized Specialty Diagnoses / Procedures Referred By Juan Carlos aiken Referred To Contact Diagnoses Right arm pain Numbness and tingling of right arm Procedures Nerve conduction test Faith Mason MD [address] [place] [address] Phone: tel: fax: [address] Phone: tel: fax: Referral ID Status Reason Start Date Expiration Date V isits Requested Visits Authorized [id number] Authorized 08/23/2024 08/23/2025 1 1 Reason for Visit * Reason Comments Gynecologic Exam Encounter Details Date Type Department Care Team (Late st Contact Info) Description 08/23/2024 2:00 PM EDT Office Visit [facility] MEDICINE [address] [place] [address] Faith Mason MD [address] [place] [address] Pap smear for cervical cancer screening (Primary Dx); Pelvic pain; Right arm pain; Numbness and tingling of right arm; Internal nasal lesion Social History Tobacco Use Types Packs/Day Years [...] Mass Index 39.21 08/23/2024 1:50 PM EDT documented in this encounter Plan of Treatment Upcoming Encounters Date Type Department Care Team (Late st Contact Info) Description 09/20/2024 3:00 PM EDT Office Visit [facility] ADULT DENTAL [address] [place] [address] Karen Shannon [address] [place] [address] Scheduled Orders Name Type Priority Associated Diagnoses Order Schedule Bacterial Vaginosis Panel Microbiology Routine Pelvic pain Ordered: 08/23/2024 Chlamydia/N. Gonorrhoeae RNA, TMA, Urogenitial Microbiology Routine Pelvic pain Ordered: 08/23/2024 Pap Smear Pathology and Cytology Routine Pap smear for cervical cancer screening Ordered: 08/23/2024 Nerve conduction test Neurology Routine Right arm pain Numbness and tingling of right arm Expected: 08/23/2024 (Approximate), Expires: 08/23/2025 EMG Neurology Routine Right arm pain Numbness and tingling of right arm Expected: 08/23/2024 (Approximate), Expires: 08/23/2025 Culture, Urine, Routine Microbiology Routine Pelvic pain Ordered: 08/23/2024 Scheduled Referrals Name Type Priority Associated Diagnoses Orde r Schedule Referral to ENT Outpatient Referral Routine Internal nasal lesion Expected: 08/23/2024 (Approximate), Expires: 08/23/2025 documented as of this encounter Procedures Procedure Name Priority Date/Time Associated Diagnosis Comments POCT URINALYSIS DIPSTICK Routine 08/23/2024 3:08 PM EDT Pelvic pain documented in this encounter Results * (ABNORMAL) POCT Urinalysis (08/23/2024 3:08 [...] UA yellow Urine 08/23/2024 3:08 PM EDT Faith No MD POINT OF CARE TEST EN TER/EDIT ORDERABLES Final Result documented in this encounter Visit Diagnoses Diagnosis Pap smear for cervical cancer screening- Primary Screening for malignant neoplasm of the cervix Pelvic pain Right arm pain Pain in soft tissues of limb Numbness and tingling of right arm Internal nasal lesion documented in this encounter Additional Health Concerns Assessment Noted Time PHQ-9 Depression Total Score: 6 11/24/19 24 2:35 PM EDT documented as of this encounter Care Teams Bench Scientist Relationship Specialty Start Date End Date Faith Mason MD [address] [place] [address] PCP - General Family Medicine 04/12/19 Linda Peralta Production Machine OperatorCarpet Tile Layer 06/08/24 documented as of this encounter
--- OUTSIDE RECORDS SUMMARY | 2024-08-23 19:12 | XMS_ITS | Encounter Summary ---
Author Organization [employer] Address [address] [facility] 7t [place] [address] Care Team Providers Care Nursing Program Coordinator Name Role Phone Faith Mason MD Primary Care Provide r Reason for Visit * Reason Comments Med Refill Encounter Details Date Type Department Care Team (Late st Contact Info) Description 04/05/2024 Refill [facility] MED & PEDS [address] [place], [place] [phone] Faith Mason MD [address] [place] [address] Atrial flutter, unspecified type (CMS/HCC); Diabetic polyneuropathy [...] Description 09/20/2024 3:00 PM EDT Office Visit [facility] ADULT DENTAL [address] [place] [address] Jacob Shannonaris [address] [place] [address] documented as of this encounter Visit Diagnoses Diagnosis Atrial flutter, unspecified type (CMS/HCC) Diabetic polyneuropathy associated with type 2 diabetes mellitus (CMS/HCC) documented in this encounter Additional Health Concerns Assessment Noted Time PHQ-9 Depression Total Score: 6 11/24/19 24 2:35 PM EDT documented as of this encounter Care Teams Nursing Program Coordinator Relationship Specialty Start Date End Date Faith Mason MD [address] [place], [place] [phone] PCP - General Family Medicine 04/12/19 Linda Peralta Chief Controller CenterSenior Mobile Developer 06/08/24 documented as of this encounter
--- OUTSIDE RECORDS SUMMARY | 2024-08-23 19:12 | XMS_ITS | Encounter Summary ---
Author Organization [employer] Address [address] [facility] 7t [place] [address] Care Team Providers Care Product Safety Technical Assistant Name Role Phone Faith Mason MD Primary Care Provide r Encounter Details Date Type Department Care Team ([facility] st Contact Info) Description 03/08/2024 Orders Only [facility] MEDICINE [address] [place], [place] [phone] Faith Mason MD [address] [place], [place] [phone] Social History Tobacco Use Types Packs/Day Years [...] Description 09/20/2024 3:00 PM EDT Office Visit [facility] ADULT DENTAL [address] [place] [address] Shiva, Karen [address] [place] [address] documented as of this encounter Visit Diagnoses Not on filedocumented in this encounter Additional Health Concerns Assessment Noted Time PHQ-9 Depression Total Score: 6 11/24/19 24 2:35 PM EDT documented as of this encounter Care Teams Product Safety Technical Assistant Relationship Specialty Start Date End Date Faith Mason MD [address] [place] [address] PCP - General Family Medicine 04/12/19 Linda Peralta Demand ManagerVisor Installer 06/08/24 documented as of this encounter
--- OUTSIDE RECORDS SUMMARY | 2024-08-23 19:12 | XMS_ITS | Encounter Summary ---
Author Organization [employer] Address [address] [facility] [address]t [place] [address] Care Team Providers Care Auto Body Painter Name Role Phone Faith Mason MD Primary Care Provide r Reason for Visit * Reason Comments Med Refill Encounter Details Date Type Department Care Team (Late st Contact Info) Description 08/11/2023 Refill [facility] MEDICINE [address] [place], [place] [phone] Faith Mason MD [address] [place], [place] [phone] Social History Tobacco Use Types Packs/Day Years [...] Description 09/20/2024 3:00 PM EDT Office Visit [facility] ADULT DENTAL [address] [place] [address] Shiva, Karen [address] [place] [address] documented as of this encounter Visit Diagnoses Not on filedocumented in this encounter Additional Health Concerns Assessment Noted Time PHQ-9 Depression Total Score: 14 023 2:21 PM EDT documented as of this encounter Care Teams Auto Body Painter Relationship Specialty Start Date End Date Faith Mason MD [address] [place] [address] PCP - General Family Medicine 04/12/19 Linda Peralta Special Education Resource TeacherSolar Sales Consultant 06/08/24 documented as of this encounter
--- OUTSIDE RECORDS SUMMARY | 2024-08-23 19:12 | XMS_ITS | Encounter Summary ---
Author Organization [employer] Address [address] [place] [address] 7t [place] [address] Care Team Providers Care Cost Estimator Name Role Phone Faith Mason MD Primary Care Provide r Reason for Visit * Reason Comments Med Refill Encounter Details Date Type Department Care Team (Late st Contact Info) Description 06/24/2023 Refill [facility] MEDICINE [address] [place], [place] [phone] Faith Mason MD [address] [place], [place] [phone] Social History Tobacco Use Types Packs/Day Years [...] Description 09/20/2024 3:00 PM EDT Office Visit [facility] ADULT DENTAL [address] [place] [address] Shiva, Karen [address] [place] [address] documented as of this encounter Visit Diagnoses Not on filedocumented in this encounter Additional Health Concerns Assessment Noted Time PHQ-9 Depression Total Score: 14 023 2:21 PM EDT documented as of this encounter Care Teams Cost Estimator Relationship Specialty Start Date End Date Faith Mason MD [address] [place] [address] PCP - General Family Medicine 04/12/19 Linda Peralta Children'S EntertainerBand Master 06/08/24 documented as of this encounter
[2024-08-24 09:26] LABS: Bacterial Vaginosis PCR NEGATIVE (Negative); Candida Group PCR DETECTED (Not Detect); Candida glab krusei PCR NOT DETECTED (Not Detect); Trichomonas vaginalis PCR NOT DETECTED (Not Detect)
[2024-08-24 10:40] LABS: CT PCR NOT DETECTED (Not Detect.); NG PCR NOT DETECTED (Not Detect.)
[2024-08-31 14:56] LABS: HPV Genotype 16 Negative (Negative); HPV Genotype 18 Negative (Negative); HPV High Risk Negative (Negative)
== END 2024-08-23 18:21 | disposition home or self-care (01) ==
LOC: HO.HHCLNP 18:20
PROVIDERS: Visit Provider Internal Medicine
DX: R10.2 Pelvic and perineal pain (principal); Z12.4 Encounter for screening for malignant neoplasm of cervix; Z11.51 Encounter for screening for human papillomavirus (HPV)
CPT/HCPCS: 81515; 87086; 87491; 87591; 87626; 88175

== ENCOUNTER 2024-09-01 13:41 | Outpatient (AMB) | payer MEDICAID, SELFPAY ==
--- NOTE | 2024-09-01 13:45 | A.OFFVIS_ITS ---
Vital Signs 09/01/24 13:48 Height 5 ft 3 in Weight 220 lb 7.396 oz BMI 39.0 BP 116/60 Blood Pressure Location Rt brachial Position Sitting Pulse 65 Pulse Source Pulse Oximeter Pulse Oximetry (%) 96 Oxygen Delivery Method Room Air Intake Visit Reasons: T2DM Intake Note: Patient presents today for a follow-up on Type 2 Diabetes Mellitus: Last Diabetic Eye exam: 12/02/23 Last Podiatry Exam: Does not see a Firestopper Technician Most recent HbA1c: 8.0%, 07/05/2024 Random Glucose- 309 mg/dL, Today, Patient had an ice cream for snack. Tile Fitter Required: Yes Tile Fitter Language: Branch Lending Manager Services: Tile Fitter Offered & Declined Accompanied by: Self / Same As Patient Allergies No Known Allergies Allergy (Verified 09/13/24 19:35) HPI Comments Details: Patient is a?59-year-old female with DM type 2 who presents for continued management of her diabetes. She was last seen 07/05/24 with an A1C of 8% which may not be an accurate indictor given end stge renal disease it is however coming down. 12/03/23 9.1%. Says she got started on a freestyle Tika 3+ Past medical history includes :? diabetes type 2, end-stage renal disease,dialysis MWF Micro and macrovascular complications: end-stage renal disease, retinopathy with current anti VEGF therapy Previous medication: Degludec diarrhea Diabetes medications: ? Toujeo 14 units Humalog before meals 80-150 8 units 151-200 10 units 201 to 300 12 units Over 300 14 units Januvia 25 mg PO daily Meter readings: tests twice daily avg 292 am running high 200's pm running up to 300 Hyperglycemia: + polyuria Last LDL 30 12/15 Exercise: limited Mold Yarn Supervisor - CDE education: sees mold carrier at dialysis Firestopper Technician: self care Denies numbness, tingling, cramping Ophthalmology evaluation: last eye appointment 12/02/23 Has had retinal injections. I confirmed her dosing of levothyroxine 25 mcg with the pharmacist 02/25/24.. 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 Uncontrolled type 2 diabetes mellitus with hyperglycemia, with long-term current use of insulin Hidradenitis suppurativa Pneumonia Type 2 diabetes mellitus with hyperglycemia Paroxysmal atrial flutter Dysphonia Chronic cough Urinary frequency Dyspnea on exertion Unstable gait Asthma Chronic low back pain without sciatica Osteoarthritis of both knees Kidney stones Depression AMARJIT (obstructive sleep apnea) Normocytic anemia ESRD needing dialysis CHF (congestive heart failure) Obesity due to excess calories CAD (coronary artery disease) GERD (gastroesophageal reflux disease) Thyroid disease AV fistula HLD (hyperlipidemia) ESRD (end stage renal disease) T2DM (type 2 diabetes mellitus) End stage renal disease on dialysis Dialysis patient Renal failure (ARF), acute on chronic HTN (hypertension) Surgical History History of cardiac cath History of kidney surgery Hx of cholecystectomy Hx of bone graft Family History Father CVD (cardiovascular disease) Diabetes Mother Diabetes Sister Stomach cancer Social History Household Members: Spouse Household Members Other:: , brother, uncles Housing: House Do you presently have visiting nurse or other home services: Yes Unable to assess alcohol history related to: Unknown Alcohol intake: never Patient Tobacco Use Status: Never used Tobacco Advance Directives Date on File: 02/15/21 service: No Current occupational status: disabled Current occupation: right hand dominant Physical Exam Vital Signs: Last Vital Signs Pulse 65 09/01/24 13:48 BP 116/60 09/01/24 13:48 Pulse Ox 96 09/01/24 13:48 Oxygen Delivery Method Room Air 09/01/24 13:48 BMI result Body Mass Index 39.0 Const Other: Absence of Cushingoid features. Absence of acromegalic features. Neck exam reveals nl size thyroid about 15 gms. No thyroid nodules palpable. No carotid bruits present. Lungs CTA. Heart S1 S2, Reg R/R. No M/R G. Skin exam reveals a bsence of vitiligo or acanthosis nigricans. No edema Results Reviewed Results Reviewed: Laboratory Last Values Glucose (Clinic) 309 mg/dL (60-115) H 09/01/24 13:57 Assessment & Plan Assessment & Plan (1) Uncontrolled type 2 diabetes mellitus with hyperglycemia, with long-term current use of insulin: Code(s): E11.65 - Type 2 diabetes mellitus with hyperglycemia; Z79.4 - care home (cur rent) use of insulin Category: Medical Plan: Type 2 diabetic with a recent A1c of 8%. Initiate freestyle Tika 3+ sensor Stop Januvia 25 mg Toujeo 18 units Humalog sliding scale 80-150 10 units 151-200 12 units 201-250 14 units Over 88523 units The patient had an opportunity to ask questions regarding treatment plan. The patient expressed understanding and agreement with the above treatment plan. The patient is aware they should contact our office by phone for worsening glucose readings or for any low blood sugars which may warrant a change in diabetes medication. Compliance is encouraged with medications and any followup testing/consults which may have been ordered. Medications: Changed From blood-glucose sensor As directed every 15 days 2 ea 11RF E11.22 - Type 2 diabetes mellitus with diabetic chronic kidney disease, N18.6 - End stage renal disease To blood-glucose sensor (FreeStyle Tika 3 Plus Sensor device) As directed every 15 days 2 ea 11RF E11.22 - Type 2 diabetes mellitus with diabetic chronic kidney disease, N18.6 - End stage renal disease Patient Instructions: The patient was counseled to achieve a target A1C of 7% (154 avg). Fasting blood sugars should be 90-130 in the morning and less than 180 two hours after meals. Reviewed the relationship between poor diabetic control and the development of complications. Take 15 carb carbohydrate grams to treat a low sugar (3-4 glucose tablets, half a glass of juice or 15 carbohydrate grams of soft candy such as gummie snacks). Recheck your sugar in 15 minutes and re-treat again with 15 carbohydrate grams if low or still with symptoms. Do not drive a car or operate machinery if you do not know what your blood sugar is, if it is low or in excess of 300. Check your feet daily looking for any signs of infection, drainage, redness, ulceration and seek medical attention if this occurs. Break in shoes gradually and do not wear open-toed shoes or walk stocking footed or barefooted. Coding Level of Care Code Est Pt Level 4 (41470) Complex EM visit Add On G2211 Diagnoses Uncontrolled type 2 diabetes mellitus with hyperglycemia, with long-term current use of insulin E11.65; Z79.4
[2024-09-01 13:48] VITALS: BP 116/60; PULSE 65; O2SAT 96; BMI 39.0
[2024-09-01 14:02] LABS: Glucose, Whole Blood 309 mg/dL (60-115)
--- OUTSIDE RECORDS SUMMARY | 2024-09-01 16:33 | XMS_ITS | Data Portability ---
Author Organization [place] - [facility] Address [address] [place] [address] [id number] [place] [address] Assessment No assessment recorded. Plan of Treatment Reminders Order Date Submit Date Provider Last Modified By Organization Details Last Modified Time Details Appointments None recorded. Lab pap, IG + HPV 2016 017 [facility], [address] [place], [address] 7 07:56:44 Referral None recorded. Procedures None recorded. Surgeries None recorded. Imaging MAMMO, diagnostic, digital, unilateral 2016 017 [email or web address] Not available 7 08:23:09 Medication Orders None recorded. Patient TargetsNo targets recorded. Patient Instructions Encounter Date Encounter Id Patient Instructions Last Modified By Organization Details Last Modified Time 11/04/2016 [id number] Discussed new pap smear guidelines, pt agreeable [...] types from this sourc e. Not Available [facility] [address] [place], [place], 11/06/2016 07:56:44 11/05/19 17 11/06/2016 pap, IG + HPV report GYNEC OLOGI BIJU CYTOL OGY REPOR T A. THINP REP PAP (IMAG ER) WITH HPV SCREE N AND REFLE X TO HPV 16,18 /45: SPECI MEN ADEQU ACY: SATIS FACTO RY FOR EVALU ATION . INTER PRETA TION: NEGAT JOHNNY FOR INTRA EPITH ELIAL RJ Tolentino OR [...] ThinP rep Imagi ng nila Alexis other [facility] d. The Pap test is a scree key test with an inher ent false negat johnny rate. [facility] , [address] [place], [place] CLIA [id number] CL-PO [id number] 7. Not Available [facility] [address] [place], [place], 11/06/2016 07:56:44 Result Notes None recorded. Problems Name Problem SNOMED Code Status Onset Date Resolution Date Notes Provider Name and Address Organization Details Recorded Time Diabetes mellitus 51097907 Active 2016 Juliana arizmendi, [place] - [facility] 7 15:55:41 Chronic endometritis 40958619 Active 2016 Juliana arizmendi, [place] - [facility] 15:55:49 Problem Notes None recorded. Procedures Surgical History Date Name Laterality Status Provider Name and Address Organization Details Recorded Time 11/04/2016 [id number] completed PAVAN BERNABE, [address] [facility] [facility], [place], [address], [facility] 11/04/2016 17:17:09 11/04/2016 [id number] completed PAVAN KIDD DO [address] [facility] [facility], [place], [address], [facility] 11/04/2016 17:17:05 05/25/1996 Other completed Juliana Gonzales [facility] 11/04/2016 16:01:20 05/25/1996 Other completed Juliana Gonzales [facility] 11/04/2016 16:03:12 Imaging Results None recorded. [...] Updated DateTime 11/04/2016 160.02 cm 40.4 kg/m2 763577.0 6 g 132 mm[Hg] 60 mm[Hg] Juliana Gonzales [facility] 7 15:53:30 Social History Question Answer Notes LastModified by Organizat ion Details LastModified Time Tobacco Smoking Status Never Smoker Julianamaribel Gonzales null, [facility] 11/04/2016 15:58:24 What Is Your Level [...] SNOMED-CT Code Diagnosis ICD10 Code Diagnosis Note [id number] PAVAN KIDD DO SHO[address],[facility] [address] [place] [address] 11/04/2016 15:42:27 11/04/2016 17:00:22 Gynecologic examination 38550253 Z01.411 51 yo annual exam Mass of left breast 1224 692807 2567947 N63 Health Concerns Section Related Observation LastModified by Organization Detai ls LastModified Time None Recorded Concern Status LastModified by Organization Details LastModified Time None Recorded Advance Directives Directive None Recorded Payers Encounter Date Sequence Insurance Name Policy Number Policy [place] Covered Member ID [place] Member ID Guarantor Name 11/04/2016 1 [place] Sarah Madden [id number] Sarah Madden Notes Date Note Type Note Provider Name and Address Organization Details Recorded Time 11/04/2016 text/[address] [facility] Annual GYNReported bypatient.Menstrua l cycle:Perimenopaus al(LMP 06/2015) Vagina:Normal vaginal discharge Breast:No nipple discharge;Breast Pain Bilateral;Breast lump(left inner breast-getting larger) Current Contraception:Towner gamous relationship Sexual complaints:No pain during intercourse Preventive measures:Encourage self breast examination; Encourage regular exerciseNotes:51 yo ASPARAGUS BUNCHER here for annual. Pt is Cymro speaking only-wants to interpret, declined professional [employer] certified internetwork expert. last [employer] Technician exam was about 5 yrs ago in [place]. c/o B/L breast tenderness for past 5 yrs with more recent? ? ? increase in left breast balls. PAVAN KIDD DO [address], [place], [address], [place] [facility] 11/04/2016 17:24:08 OBGyn Episode No OBEpisode recorded.
--- OUTSIDE RECORDS SUMMARY | 2024-09-01 16:33 | XMS_ITS | Encounter Summary ---
Author Organization [email or web address] Address [address] [place] [address] [address] [place] [address] Care Team Providers Care Dispatch Officer Name Role Phone Faith Mason MD Primary Care Provide r Reason for Visit * Reason Comments Med Refill Encounter Details Date Type Department Care Team (Late st Contact Info) Description 08/31/2024 Refill [facility] MED[facility] [address] [place], [place] [phone] Faith Mason MD [address] [place], [place] [phone] Atrial flutter, unspecified type (CMS/HCC) Social History [...] Description 09/20/2024 3:00 PM EDT Office Visit [facility] ADULT DENTAL [address] [place] [address] Shiva, Karen [address] [place] [address] 09/23/2024 11:30 AM EDT Office Visit [facility] MED[facility] [address] [place] [address] Kay Mackay MD [address] [place] [address] documented as of this encounter Visit Diagnoses Diagnosis Atrial flutter, unspecified type (CMS/HCC) documented in this encounter Additional Health Concerns Assessment Noted Time PHQ-9 Depression Total Score: 6 11/24/19 24 2:35 PM EDT documented as of this encounter Care Teams Dispatch Officer Relationship Specialty Start Date End Date Faith Mason MD [address] [place] [address] PCP - General Family Medicine 04/12/19 Linda Peralta Compensation AdministratorMapping Technician 06/08/24 documented as of this encounter
--- OUTSIDE RECORDS SUMMARY | 2024-09-01 16:33 | XMS_ITS | Clinical Summary ---
Author Organization [employer] Address [address] [place] [address] [address] [place] [address] Care Team Providers Care Graduate Internship Name Role Phone Faith Mason MD Primary [...] 024 Active Blood Glucose Monitoring Suppl (FreeStyle [place] Lite) w/Device kitIndications:Ty pe 2 diabetes mellitus with hyperglycemia, with long-term current use of insulin ([facility]) Use to test blood sugar 3 times daily 1 kit 024 Active TRUEplus Lancets 33G miscIndications:T ype 2 diabetes mellitus with hyperglycemia, with long-term current use of insulin ([facility]) TEST BLOOD SUGAR THREE TIMES DAILY [...] hyperglycemia, with long-term current use of insulin ([facility]) USE DIRECTED THREE TIMES DAILY 100 each 11 024 Active insulin glargine (Toujeo Max SoloStar) 300 UNIT/ML injectionIndicati ons:Type 2 diabetes mellitus with hyperglycemia, with long-term current use of insulin ([facility]) INJECT 28 UNITS SUBCUTANEOUSLY EVERY DAY 6 mL 1 024 Active sodium chloride (Mckinley) 0.65 % nasal spray Administer 1 spray [...] MG EC tabletIndications :Coronary artery disease involving [place] coronary artery of [place] heart with unstable angina pectoris ([facility]) TAKE 1 TABLET BY MOUTH EVERYDAY AT NOON 90 tablet 3 024 Active guaiFENesin 200 MG/10ML liquidIndications :Acute cough Take 10 mL by mouth every 6 (six) hours if needed (take for cough if needed). 236 mL 024 Active brimonidine (AlphaGAN) 0.2 % ophthalmic solution Administer 1 drop into the left eye 3 times daily. Active Continuous Glucose Sign Artist (FreeStyle Tika 3 Merkel) device Use as directed Active Continuous Glucose Sensor (FreeStyle Tika 3 Sensor) [facility] USE DIRECTED TO TEST BLOOD SUGAR CHANGE [...] 2 times daily. 30 tablet 3 Active docusate sodium (Colace) 100 MG capsuleIndication s:Other constipation TAKE 1 CAPSULE BY MOUTH TWICE DAILY 180 capsule Active Fiber-Lax 625 MG tabletIndications :Constipation, unspecified constipation type TAKE 1 TABLET BY MOUTH EVERY MORNING 90 tablet 3 Active atorvastatin (Lipitor) 40 MG tablet TAKE 1 TABLET BY MOUTH EVERYDAY AT NOON 90 tablet 1 Active D3 Super Strength 50 MCG (2000 UT) capsule TAKE 1 CAPSULE BY MOUTH EVERY MORNING 90 capsule 1 Active gabapentin (Neurontin) 300 MG capsuleIndication s:Right arm pain,Numbness and tingling of right arm Take 1 capsule (300 mg) by mouth at bedtime. 30 capsule 2 025 2025 Active fluconazole (Diflucan) 150 MG tabletIndications :Yeast infection Take one tablet then after 72 hours take another tablet 1 tablet Active apixaban (Eliquis) 5 MG tabletIndications :Atrial flutter, unspecified type (CMS/HCC) TAKE 1 TABLET BY MOUTH TWICE DAILY IN THE MORNING AND IN THE EVENING 60 tablet 025 Active gabapentin (Neurontin) 100 MG capsuleIndication s:Diabetic polyneuropathy associated with type 2 diabetes mellitus (CMS/HCC) TAKE 1 CAPSULE BY MOUTH TWICE DAILY IN THE MORNING AND IN THE EVENING 60 capsule 025 2024 Discontinued apixaban (Eliquis) 5 MG tabletIndications :Atrial flutter, unspecified type (CMS/HCC) TAKE 1 TABLET BY MOUTH TWICE DAILY IN THE MORNING AND IN THE EVENING 60 tablet 025 2024 Discontinued apixaban (Eliquis) 5 MG [...] smear for cervical cancer screening 08/24/19 25 Assessment & Plan (08/24/2024 1:28 PM EDT): Patient to be contacted with results Pelvic pain 08/23/2024 Assessment & Plan (08/24/2024 1:27 PM EDT): Bacterial vaginosis and CG ordered Patient will be contacted wit results Right arm pain 08/23/2024 Assessment & Plan (08/24/2024 1:28 PM EDT): Gabapentin 300mg at bed time I will order nerve studies and contact patient back with results Numbness and tingling of right arm 08/23/2024 [...] (05/21/2022 9:19 AM EST): -[place] [facility] - last available consult note Jan 2022 w/ Dr. Miller -Continues with current med regimen: -Januvia 25mg PO daily -Tuojeo insulin 28 units subcutaneous daily -Lispro AC per SS -Dexcom ordered and managed through [facility] -Strongly encourage pt [...] 05/15/2022 Essential hypertension 05/15/2022 Assessment & Plan (08/24/2024 1:26 PM EDT): Today blood pressure is a little elevated but is acceptable in light of patient's underline condition ESRD on HD and labile blood pressure, no medication change is necessary Assessment & Plan (05/26/2024 10:32 AM EST): [...] remission 09/02/2018 Coronary artery disease invo lving mo[place]own coronary artery of [place] heart with unstable angina pectoris 06/03/2018 Calculus of kidney 06/03/2018 Atypical chest pain 06/03/2018 Chronic endometritis 11/04/2016 Resolved Problems Problem Noted Date Diagnosed Date Resolved Date Type 2 diabetes mellitus without complication 09/03/19 19 05/21/2022 Encounters Date Type Department Care Team Description 09/01/2024 Orders Only GENERIC EXTERNAL DATA DEPARTMENT Provider, Generic External Data 08/31/2024 Refill [facility] [address] [facility] [place] [address] Faith Mason MD Atrial flutter, unspecified type (CMS/HCC) 08/24/2024 Telephone [facility] [address], [place] [phone] Faith Mason MD Results 08/24/2024 Orders Only [facility] [address] [facility] [place] [address] Faith Mason MD Yeast infection (Primary Dx) 08/23/2024 2:00 PM EDT Office Visit [facility] [address] [facility] [place] [address] Faith Mason MD Pap smear for cervical cancer screening (Primary Dx); Pelvic pain; Right arm pain; Numbness and tingling of right arm; Internal nasal lesion; Essential hypertension 08/23/2024 Orders Only [facility] [address] [facility] [place] [address] Faith Mason MD 08/23/2024 Travel 08/22/2024 Telephone [facility] [address] [facility] [place] [address] Faith Mason MD CHART PREP 08/05/[address] [facility] [address] [facility] [place] [address] Faith Mason MD 08/05/2024 Refill [facility] [address] [facility] [place] [address] Faith Mason MD Atrial flutter, unspecified type (CMS/HCC) 08/05/2024 Telephone [facility] [address] [place] [address] Faith Mason MD 08/05/2024 Population Health Risk Score [facility] () Department [address] [place] [phone] Provider, Population Health Generic 07/29/2024 Telephone [facility] [address] [place] [address] Faith Mason MD telephone call 07/29/2024 Telephone [facility] [address] [place] [address] Faith Mason MD Appointment Request 07/27/2024 Orders Only GENERIC EXTERNAL DATA DEPARTMENT Provider, Generic External Data 07/25/2024 Refill [facility] [address] [place] [address] Faith Mason MD 07/23/2024 Refill [facility] [address] [facility] [place] [address] Faith Mason MD Constipation, unspecified constipation type 07/19/2024 Orders Only GENERIC EXTERNAL DATA DEPARTMENT Provider, Generic External Data 07/18/2024 Orders Only [facility] [address] [place] [address] Faith Mason MD 07/18/2024 Refill [facility] [address] [facility] [place] [address] Faith Mason MD Other constipation 07/05/2024 Orders Only GENERIC EXTERNAL DATA DEPARTMENT Provider, Generic External Data 06/17/2024 Refill [facility] [address] [place] [address] Faith Mason MD 06/17/2024 Refill [facility] [address] [place] [place] [address] Faith Mason MD Atrial flutter, unspecified type (CMS/[facility]) 06/16/2024 Telephone [facility] [address] [place] [address] Faith Mason MD 06/08/2024 Telephone [facility] [address] [place] [address] Faith Mason MD Care Coordination (ICP Care Plan) 06/07/2024 10:00 AM EST Office Visit [facility] [address] [place] [address] Karen Shannon 06/03/2024 Orders Only [facility] [address] [place] [address] Faith Mason MD Post-menopausal bleeding (Primary Dx) from Last 3 Months Immunizations [...] your housing situation today? I have alli jimmy 12/24/[address] you li [...] Description 09/20/2024 3:00 PM EDT Office Visit [facility] [address] [place] [address] Karen Shannon [address] [place] [address] 09/23/2024 11:30 AM EDT Office Visit [facility] [address] [place] [address] Kay Mackay MD [address] [place] [address] Health Maintenance Due Date Last Done Comments [...] 06/17/2024 024, 11/24/2023, 08/04/2023, Additional history exists Depression Screening 11/23/2024 11/24/2023, 11/24/19 24 Lipid Panel 11/30/2024 12/01/2023, 09/09/2022 Alcohol/Substance Use Screening 12/23/2024 12/24/2023 SDOH Screening 12/23/2024 12/24/2023 Mammogram 07/18/2025 07/18/2024, 06/26, 02/01/2020 Tobacco Screening 08/23/2025 08/23/2024 Colorectal Cancer Screening 09/16/2026 FIT DNA/Cologuard 09/16/2026 09/17/2023 Cervical Cancer Screening 08/23/2029 HPV/Cotest 08/23/2029 08/23/2024, 09/23, 07/25/2020 Pap Smear 08/23/2029 08/23/2024, 09/23, 07/25/2020 RSV Patients and Patients Aged 60 [...] Associated Diagnosis Comments GLUCOSE, WHOLE BLOOD Routine 09/01/2024 1:57 PM EDT POCT URINALYSIS DIPSTICK Routine 08/23/2024 3:08 PM EDT Pelvic pain CULTURE, URINE, ROUTINE Routine 08/23/2024 2:58 PM EDT Pelvic pain CHLAMYDIA/N. GONORRHOEAE RNA, TMA, UROGENITAL Routine 08/23/2024 2:57 PM EDT Pelvic pain BACTERIAL VAGINOSIS PANEL Routine 08/23/2024 2:57 PM EDT Pelvic pain PAP SMEAR Routine 08/23/2024 12:00 AM EDT Pap smear for cervical cancer screening HPV DNA, LOW/HIGH RISK Routine 08/23/2024 12:00 AM EDT CELL BLOCK Routine 07/27/2024 9:26 AM EST [...] Routine 12/01/2023 1:06 PM EDT Essential hypertension LAB COLOGUARD?? COLON CANCER SCREEN Routine 09/17/2023 12:00 PM EDT Colon cancer screening BITEWING - SINGLE RADIOGRAPHIC IMAGE Routine 01/22/2023 1:00 PM EDT Dental caries ZZZ HISTORICAL MICROALBUMIN, RANDOM Routine 07/23/2020 9:00 AM EST PERIODIC ORAL EVALUATION - ESTABLISHED PATIENT Routine 06/29/2008 12:00 AM EST from Last 3 Months or Most Recently Relevant to Health Maintenance Results * (ABNORMAL) Glucose, Whole Blood (09/01/2024 1:57 PM EDT) Only the most recent of3 resultswithin the time period is included. Glucose, Whole Blood 309(H) 60 - 115 mg/dL [facility] Comment:METER #: [id number] Testing performed in the Endocrinology Department [address], [facility]. 09/01/2024 1:57 PM EDT 09/01/2024 2:02 PM EDT us Generic External Data Provider LAB BLOOD ORDERAB LES Final Result Performing Organization Address [facility]/ZIP Co de Phone Number [facility] [address] [place] [phone] * (ABNORMAL) POCT Urinalysis (08/23/2024 3:08 PM [...] TEST EN TER/EDIT ORDERABLES Final Result * Culture, Urine, Routine (08/23/2024 2:58 PM EDT) Urine Urine specimen obtained by clean catch procedure / Unknown 08/23/2024 2:58 PM EDT 08/23/2024 6:20 PM EDT Comment:UACC Narrative [facility] - 08/26/2024 7:45 AM EDT Viridans streptococcus group Quant > 100,000 cfu/mL Susc N/A Susceptibility not routinely performed on this isolate. Specimen Source: Urine clean catch us Faith No MD LAB MICROBIOLOGY - GE NERAL ORDERABLES Final Result Performing Organization Address [facility]/ZIP Co de Phone Number [facility] [address] [place] [phone] * (ABNORMAL) Bacterial Vaginosis Panel (08/23/2024 2:57 PM EDT) TRICHOMONAS VAGINALIS DETECTION BY PCR NOT DETECTED Not Detect [facility] BACTERIAL VAGINOSIS DETECTION BY PCR NEGATIVE Negative [facility] Comment:The BV organism targ ets of the Xpert Xpress MVP test can becommensal in women; Xpert Xpress MVP positive results forbacterial vaginosis should be considered in conjunction withother clinical and patient information to determine thedisease status. Organisms that are not detected by the XpertXpress MVP test have also been reported to be associatedwith BV and aerobic vaginitis.The Xpert Xpress MVP test performance has not been evaluatedin patients under the age of 14. KYM GROUP DETECTION BY PCR DETECTED(A) Not Detect [facility] Kym glab krusei PCR NOT DETECTED Not Detect [facility] Swab Vaginal structure / Unknown 08/23/2024 2:57 PM EDT 08/23/2024 6:22 PM EDT us Faith No MD LAB MICROBIOLOGY - NERAL ORDERABLES Final Result [facility] [address] [place] [phone] * Chlamydia/N. Gonorrhoeae RNA, TMA, Urogenitial (08/23/2024 2:57 PM EDT) CT PCR NOT DETECTED Not Detect. [facility] Comment:A not detected test result does not exclude the possibilityof infection because test results can be affected byimproper specimen collection, concurrent antibiotic therapy,or the number of organisms in the specimen which may bebelow the sensitivity of the test. As with many diagnostictests, results from the Xpert CT/NG assay should beinterpreted in conjunction with other laboratory andclinical data available to the clinician.Xpert CT/NG performance has not been evaluated in patientsless than 14 years of age. The assay should not be used forthe evaluationof suspected sexual abuse or for other medico-legalindications. Additional testing is recommended in anycircumstance when false positive or false negative resultscould lead to adverse medical, social or psychologicalconsequences. NG PCR NOT DETECTED Not Detect. [facility] Comment:A not detected test result does not exclude the possibilityof infection because test results can be affected byimproper specimen collection, concurrent antibiotic therapy,or the number of organisms in the specimen which may bebelow the sensitivity of the test. As with many diagnostictests, results from the Xpert CT/NG assay should beinterpreted in conjunction with other laboratory andclinical data available to the clinician.Xpert CT/NG performance has not been evaluated in patientsless than 14 years of age. The assay should not be used forthe evaluationof suspected sexual abuse or for other medico-legalindications. Additional testing is recommended in anycircumstance when false positive or false negative resultscould lead to adverse medical, social or psychologicalconsequences. Swab (Vaginal Swab) 08/23/2024 2:57 PM EDT 08/23/2024 6:22 PM EDT Narrative [facility] - 08/24/2024 10:40 AM EDT Vaginal Faith No MD LAB MICROBIOLOGY - [facility] ORDERABLES Final Result [facility] [address] [place] [phone] * HPV DNA, Low/High Risk (08/23/2024 12:00 AM EDT) HPV High Risk Negative Negative [facility] HPV Genotype 16 Negative Negative [facility] HPV Genotype 18 Negative Negative [facility] Comment:HPV testing performe d at [facility] (CLIA#[id number]), [address] [place] [address].Testing for HPV was performed using the [employer] TrackIF0system. The presence of HPV in the female genital tract isassociated with a number of diseases, including cervicalcarcinoma. The HPV DNA high risk pool tests for HPV 31, 33,35, 39, 45, 51, 52, 56, 58, 59, 66 and 68. The testing forHPV 16 and 18 genotypes has also been performed. A positiveresult indicates detection of nucleic acid sequences fromone or more subtypes, whereas a negative result indicatessuch sequences were not detected. 08/23/2024 08/24/2024 6:0 0 AM EDT us Faith No MD LAB BLOOD ORDERABLES Final Result [facility] [address] [place] [phone] * Pap Smear (08/23/2024 12:00 AM EDT) Swab 08/23/2024 08/24/2024 6:0 0 AM EDT Narrative [facility] - 08/29/2024 1:23 PM EDT ----- ------- Name: Sarah Dixon ? Age/Sex: 59/F ? : 1965 [id number] Unit#: [id number] ?? Attend Dr: Faith Mason MD ?Re08/23/24 ?Status: DEP REF ? Location[facility] ? Disch: ? ----- ------- SPEC : [id number] ? RECD: 08/24/24 ? STATUS: ??SOUT ? REQ NUM: [id number] ? NADJA: 08/23/24 ? SUBM DR: Faith Mason MD ? ENTERED: ??08/24/24 ?SP TYPE: Pap Smr ?OTHR : ? ORDERED: ??Pap Smear ? Interpretation ?? Satisfactory for evaluation. ?? Negative for intraepithelial lesion or malignancy. ?? No endocervical cells seen. ? HPV High Risk: ??Negative ? HPV Genotyping 16: ??Negative ?? HPV Genotyping 18: ??Negative ?Clinical Information LMP: Unknown date Previous PAP test: Unknown date, WNL ? Material Received ?? Cervix ----- ------- Signed (signature on file) FREDRICK Doan ([facility]) 08/29/24 1323 ? ----- ------- ? END OF REPORT ? us Faith No MD LAB CYTOLOGY ORDERABL ES Final Result [facility] [address] [place] [phone] * Cell Block (07/27/2024 9:26 AM EST) 07/27/2024 9:26 AM EST 07/27/2024 11:45 AM EST [facility] - 07/29/2024 3:17 PM EST ----- ------- Name: Sarah Dixon ? Age/Sex: 59/F ? : 1965 Unit#: [id number] ?? Attend Dr: Therese Bateman MD ?Re07/27/24 ?Status: DEP REF ? Location: [facility] ? Disch: ? ----- ------- SPEC : [id number] ? RECD: 07/27/24 ? STATUS: ??SOUT ? REQ NUM: [id number] ? NADJA: 07/27/24 ? SUBM DR: Therese Bateman MD ? ENTERED: ??07/27/24 ?SP TYPE: Cytology ? OTHR DR: Faith Mason MD ? ORDERED: ??Cell Block, Fine Ndl Asp ? Diagnosis ?? Thyroid, left mid nodule, fine needle aspiration biopsy (cytology and cell block): ? -[facility] Classification:? Non-diagnostic (category 1) ? -Description:? [...] Copies To: ?? Faith Mason MD ?? [facility] ?? [address] ?? [place] [address] ?? [phone] ?? Therese Bateman MD ?? [facility] ?? [address] ?? [place] [address] ?? [phone] ?? [email or web address] ----- ------- Signed (signature on file) Brigida Andrews 07/29/247 ? ----- ------- ? END OF REPORT ? us Generic External Data Provider LAB CYTOLOGY PONCHO ABEL Final Result [facility] [address] [place], [place] [phone] * BI Mammogram Screening Tomosynthesis Bilateral (07/18/2024 11:24 AM EST) Anatomical Region Laterality Modality Breast Bilateral Mammography 07/18/2024 11:2 4 AM EST Narrative 07/23/2024 12:27 PM EST ? [facility] ? [address] ?[place] [address] ? Mammography Report ? Signed ? Patient: Madden Colon,Sarah ?MR#: [id number] ?? [id number] ? : 1965 ?Acct:[id number] ? Age/Sex: 59 / F ?ADM Date: 07/18/24 ? Loc: HO.MAMMO ? Attending Dr: Faith No MD ? Ordering Physician: Faith Mason MD ?Results: ?? 1Negative ? Date of Service: 07/18/24 ?Follow Up: 1 Year From Orig ?? inal Mammogram ? Procedure(s): MM tomosynthesis screening BI ?? Accession Number(s): [id number] ? cc: Faith Mason MD ? EXAMINATION: [...] DD/ 1124 ? TD/TT: 07/18/24 1124 ? Personnel Scheduler: ? Procedure Note Roseanna, Image - 07/23/2024 [facility] [address] [place] [address] Mammography Report Signed Patient: Sarah Dixon#: [id number] : 1965Acct:[id number] Age/Sex: 59 / FADM Date: 07/18/24 Loc: HO.MAMMO Attending Dr: Faith No MD Ordering Physician: Faith Mason MDResults: 1Negative Date of Service: 07/18/24Follow Up: 1 Year From Orig inal Mammogram Procedure(s): MM tomosynthesis screening BI Accession Number(s): [id number] cc: Faith Mason MD EXAMINATION: MM SCREENING [...] for their next mammogram. Electronically signed by: Ailcia Archuleta DO 07/23/2024 12:23 PM EST Dictated By: Alicia Archuleta DO Signed By: <Electronically signed by Alicia Archuleta DO in OV> 07/23/24 1223 DD/ 1124 TD/TT: 07/18/24 1124 Personnel Scheduler: Faith No MD IMG BI PROCEDURES Yoshi telma Result - Final * (ABNORMAL) POCT HGB A1C (03/17/2024 3:42 PM EDT) Pathologist [facility] Hemoglobin A1C 7.8(A) 4.0 - 6.0 % QC Media Lot # [id number] Lot# Expiration Date 7,026 Blood 03/17/2024 3:42 PM EDT Faith No MD POINT OF CARE TEST EN TER/EDIT ORDERABLES Final Result * Hepatitis Panel, General (01/26/2024 2:16 PM EDT) Pathologist [facility] Hepatitis A IgM REACTIVE (Abnormal) Nonreactive [facility] Comment:For additional infor matkhurram, please refer tohttp://education.Ippies/faq/YAW687(This link is being provided for informational/educational purposes only.)THIS TEST PERFORMED AT:[facility] [address] [phone] DIRECTOR: EVITA ALICEA MD ~Hepatitis B Surface Antibody REACTIVE (Abnormal) Nonreactive [facility] Comment:THIS TEST PERFORMED AT:[facility] [address] [phone] DIRECTOR: EVITA ALICEA MD Hepatitis B Core Antibody NON-REACTI VE Nonreactive [facility] Comment:For additional infor mation, please refer tohttp://[employer].Ippies/faq/DMT649(This link is being provided for informational/educational purposes only.)THIS TEST PERFORMED AT:[facility] [address] [phone] DIRECTOR: EVITA ALICEA MD Hepatitis C Antibody NON-REACTI VE Nonreactive [facility] Comment:HCV antibody was non -reactive. There is no laboratoryevidence of HCV infection.In most cases, no further action is required. However,if recent HCV exposure is suspected, a test for HCV RNA(test code 29888) is suggested.For additional information please refer tohttp://[employer].Ippies/faq/MGR52i7(This link is being provided for informational/educational purposes only.)THIS TEST PERFORMED AT:[facility] [address] [phone] DIRECTOR: EVITA ALICEA MD Hepatitis B Surface Ag NON-REACTI VE Negative [facility] Comment:For additional infor mation, please refer tohttp://[employer].Ippies/faq/RXQ416(This link is being provided for informational/educational purposes only.)THIS TEST PERFORMED AT:[facility] [address] [phone] DIRECTOR: EVITA ALICEA MD Blood 01/26/2024 2:16 PM EDT 01/26/2024 4:08 PM EDT us Faith No MD LAB BLOOD ORDERABLES Final Result Performing Organization Address City/[facility]/ZIP Co de Phone Number [facility] [address] [place] [phone] * HIV-1/2 Antigen and Antibodies, Fourth Generation, with Reflexes (01/26/2024 2:16 PM EDT) HIV AB/AG NON-REAC TIVE Nonreactive [facility] Comment:HIV-1 antigen and HI [...] for this purpose.For additional information please refer tohttp://education.Ippies/faq/MTN816(This link is being provided for informational/educational purposes only.)The performance of this assay has not been clinicallyvalidated in patients less than 2 years old.THIS TEST PERFORMED AT:[employer] [address] [phone] DIRECTOR: EVITA ALICEA MD Blood Venous blood specimen / Unknown 01/26/2024 2:16 PM EDT 01/26/2024 4:08 PM EDT us Faith No MD LAB BLOOD ORDERABLES Final Result Performing Organization Address [facility]/ZIP Co de Phone Number [facility] [address] [place] [phone] * (ABNORMAL) Lipid Panel with Reflex to Direct LDL (12/01/2023 1:06 PM EDT) Triglycerides 81 <150 mg/dL [facility] Comment:Desirable Triglyceri de: less than 150 mg/dLBorderline High Triglyceride 150-199 mg/dLHigh Triglyceride: 200-499 mg/dLVery High Triglyceride: greater than or equal to 5OO mg/dL Cholesterol 77 <200 mg/dL [facility] Comment:Desirable Cholestero l: less than 200 mg/dLBorderline High Cholesterol: 200-239 mg/dLHigh Cholesterol: greater than 239 mg/dL LDL Cholesterol Calculated 30 <100 mg/dL [facility] Comment:Desirable LDL: less than 100 mg/dLNear Optimal/Above Optimal LDL: 110- 129 mg/dLBorderline High LDL: 130-159 mg/dLHigh LDL: 160-189 mg/dLVery High LDL: greater than or equal to 190 mg/dL HDL Cholesterol 31(L) >40 mg/dL [facility] Comment:Desirable HDL: great er than 40 mg/dL Note: This HDL assay may give artificially low results in patients with liver disease. Blood 12/01/2023 1:06 PM EDT 12/01/2023 1:11 PM EDT Faith No MD LAB BLOOD ORDERABLES Final Result [facility] [address] [place] [phone] * Cologuard?? colon cancer screening (09/17/2023 12:00 PM EDT) Cologuard Result Negative Negative 09/25/19 10:09 AM EDT [facility] (CLIA #:[id number]) Comment: NEGATIVE TEST RESULT. A negative Cologuard [...] cancer. ??Following a negative Cologuard result, the [place] [employer] and U.S. Multi-Society Task Force screening guidelines recommend a Cologuard re-screening interval of 3 years. References: [place] [employer] Guideline for Colorectal Cancer Screening: https://www.cancer.org/cancer/zaici-wvqqib-tsphpo/cuqkmgjzu-ifotzhaph-kzimjzu/ac s-rec ommendations.html.; Maxi DK, Robinson REESE, Barry TateK, Colorectal Cancer Screening: Recommendations for Physicians and Patients from the U.S. Multi-Society Task Force on Colorectal Cancer Screening , Am J Gastroenterology 2017; 112:2267-6643. TEST DESCRIPTION: Composite algorithmic analysis of stool [...] (Kacey Jalloh al, N Engl J Med 2014;370(14):6693-2797.) Cologuard may produce a false negative or false positive result (no colorectal cancer or precancerous polyp present at colonoscopy follow up). A negative Cologuard test result does not guarantee the absence of CRC or advanced adenoma (pre-cancer). The current Cologuard screening interval is every 3 years. ([place] [employer] and U.S. Multi-Society Task Force). Cologuard performance data in a 10,000 patient pivotal study using colonoscopy as the reference method can be accessed at the following location: www.[employer].com/results. Additional description of the Cologuard test process, warnings and precautions can be found at www.cologuard.com. Stool specimen (specimen) 09/17/2023 12:00 PM EDT 09/18/2023 10:51 AM EDT Faith No MD LAB MOLECULAR DIAGNOS TICS ORDERABLES Final Result Performing Organization Address [facility] de Phone Number [facility] (CLIA #:[id number]) [place] [address] [place] [address], * MICROALBUMIN, RANDOM (07/23/2020 9:00 AM EST) Creatinine Urine 140.39 mg/dL [facility] Microalbum/Creati nine Ratio Ur 419.5 ug/mg cr [facility] Comment: ?Albumin/Creatinine Ratio Reference Ranges: ? Normal: < 30 ug/mg creatinine ? Microalbuminuria: ??30 - 300 ug/mg creatinine Clinical Albuminuria: ??> 300 ug/mg creatinine Microalbumin Urine 589.0 mg/L [facility] 07/23/2020 9:00 AM EST Historical Provider HISTORICAL/NON ORDERABLE LABS Final Result Performing Organization Address [facility] de Phone Number [facility] [address] [place] [address], from Last 3 Months or Most Recently Relevant to Health Maintenance Insurance [place], [place] [facility] MEDICAID STAND ADULT Care Teams Graduate Internship Relationship Specialty Start Date End Date Faith Mason MD [address] [place] [address] PCP - General Family Medicine 04/12/19 Linda Peralta Home Service TechnicianGovernment Documents Librarian 06/08/24
--- OUTSIDE RECORDS SUMMARY | 2024-09-01 16:33 | XMS_ITS | Encounter Summary ---
Author Organization [employer] Address [address] [facility] 7t [place] [address] Care Team Providers Care Ladle Car Operator Name Role Phone Faith Mason MD Primary Care Provide r Encounter Details Date Type Department Care Team ([facility] st Contact Info) Description 08/05/[address] [facility] [address] [place], [place] [phone] Faith Mason MD [address] [place], [place] [phone] Social History Tobacco Use Types Packs/Day Years [...] Description 09/20/2024 3:00 PM EDT Office Visit [facility] ADULT DENTAL [address] [place] [address] Karen Shannon [address] [place] [address] 09/23/2024 11:30 AM EDT Office Visit [facility] [address] [place] [phone] Kay Mackay MD [address] [place] [address] documented as of this encounter Visit Diagnoses Not on filedocumented in this encounter Additional Health Concerns Assessment Noted Time PHQ-9 Depression Total Score: 6 11/24/19 24 2:35 PM EDT documented as of this encounter Care Teams Ladle Car Operator Relationship Specialty Start Date End Date Faith Mason MD [address] [place] [phone] PCP - General Family Medicine 04/12/19 Linda Peralta Cake Press Operator HelperSoftware Technical Lead 06/08/24 documented as of this encounter
--- OUTSIDE RECORDS SUMMARY | 2024-09-01 16:33 | XMS_ITS | Encounter Summary ---
Author Organization [employer] Address [address] [facility] 7t [place] [address] Care Team Providers Care Winder Hand Name Role Phone Faith Mason MD Primary Care Provide r Encounter Details Date Type Department Care Team ([facility] st Contact Info) Description 08/23/2024 Orders Only [facility] MED[facility]INE [address] [place], [place] [phone] Faith Mason MD [address] [place], [place] [phone] Social History Tobacco Use Types Packs/Day Years [...] Description 09/20/2024 3:00 PM EDT Office Visit [facility] ADULT DENTAL [address] [place] [address] Karen Shannon [address] [place] [address] 09/23/2024 11:30 AM EDT Office Visit [facility] MED[facility]INE [address] [place] [address] Kay Mackay MD [address] [place] [address] documented as of this encounter Procedures Procedure Name Priority Date/Time Associated Diagnosis Comments HPV DNA, LOW/HIGH RISK Routine 08/23/2024 12:00 AM EDT documented in this encounter Results * HPV DNA, Low/High Risk (08/23/2024 12:00 AM EDT) HPV High Risk Negative Negative [facility] HPV Genotype 16 Negative Negative [facility] HPV Genotype 18 Negative Negative [facility] Comment:HPV testing performe d at [facility] (CLIA#[id number]), [address] [place] [phone].Testing for HPV was performed using the [employer] 6800system. The presence of HPV in the female [...] No MD LAB BLOOD ORDERABLES Final Result [facility] [address] [place] [phone] documented in this encounter Visit Diagnoses Not on filedocumented in this encounter Additional Health Concerns Assessment Noted Time PHQ-9 Depression Total Score: 6 11/24/19 24 2:35 PM EDT documented as of this encounter Care Teams Winder Hand Relationship Specialty Start Date End Date Faith Mason MD [address] [place] [phone] PCP - General Family Medicine 04/12/19 Linda Peralta Custodian Athletic EquipmentWeight Reduction Specialist 06/08/24 documented as of this encounter
--- OUTSIDE RECORDS SUMMARY | 2024-09-01 16:33 | XMS_ITS | Encounter Summary ---
Author Organization [employer] Address [address] [place] [address] 7t [place] [address] Care Team Providers Care Crankshaft Straightener Name Role Phone Faith Mason MD Primary Care Provide r Encounter Details Date Type Department Care Team (Late st Contact Info) Description 09/01/2024 Orders Only GENERIC EXTERNAL DATA [...] [facility] ADULT DENTAL [address] [place] [address] Shiva, Karen [address] [place] [address] 09/23/2024 11:30 AM EDT Office Visit [facility] MEDICINE [address] [place] [address] Kay Mackay MD 230 [place] [address] documented as of this encounter Procedures Procedure Name Priority Date/Time Associated Diagnosis Comments GLUCOSE, WHOLE BLOOD Routine 09/01/2024 1:57 PM EDT documented in this encounter Results * (ABNORMAL) Glucose, Whole Blood (09/01/2024 1:57 PM EDT) Glucose, Whole Blood 309(H) 60 - 115 mg/dL [facility] Comment:METER #: [id number] Testing performed in the Endocrinology Department [address] , [address], [facility]. 09/01/2024 1:57 PM EDT 09/01/2024 2:02 PM EDT us Generic External Data Provider LAB BLOOD ORDERAB LES Final Result [facility] [address] [place] [address] [phone] documented in this encounter Visit Diagnoses Not on filedocumented in this encounter Additional Health Concerns Assessment Noted Time PHQ-9 Depression Total Score: 6 11/24/19 24 2:35 PM EDT documented as of this encounter Care Teams Crankshaft Straightener Relationship Specialty Start Date End Date Faith Mason MD [address] [place] [address] PCP - General Family Medicine 04/12/19 Linda Peralta Quick Service TechnicianWeb Producer 06/08/24 documented as of this encounter
--- OUTSIDE RECORDS SUMMARY | 2024-09-01 16:33 | XMS_ITS | Encounter Summary ---
Author Organization [employer] Address [address] [facility] 7t [place] [address] Care Team Providers Care Recycling Collections Driver Name Role Phone Faith Mason MD Primary Care Provide r Encounter Details Date Type Department Care Team ([facility] st Contact Info) Description 03/08/2024 Orders Only [facility] MEDICINE [address] [place], [place] [phone] Faith Mason MD [address] [place], [place] [phone] Social History Tobacco Use Types Packs/Day Years [...] [facility] ADULT DENTAL [address] [place] [address] Karen Shannon [address] [place] [address] 09/23/2024 11:30 AM EDT Office Visit [facility] MEDICINE [address] [place] [phone] Kay Mackay MD [address] [place] [address] documented as of this encounter Visit Diagnoses Not on filedocumented in this encounter Additional Health Concerns Assessment Noted Time PHQ-9 Depression Total Score: 6 11/24/19 24 2:35 PM EDT documented as of this encounter Care Teams Recycling Collections Driver Relationship Specialty Start Date End Date Faith Mason MD [address] [place] [phone] PCP - General Family Medicine 04/12/19 Linda Peralta General Sales ManagerDrilling Superintendent 06/08/24 documented as of this encounter
--- OUTSIDE RECORDS SUMMARY | 2024-09-01 16:33 | XMS_ITS | Encounter Summary ---
Author Organization [employer] Address [address] [facility] 7t [place] [address] Care Team Providers Care Nurse Special Name Role Phone Faith Mason MD Primary Care Provide r Reason for Visit * Reason Comments Med Refill Encounter Details Date Type Department Care Team (Late st Contact Info) Description 04/05/2024 Refill [facility] [address] [place], [place] [phone] Faith Mason MD [address] [place] [address] Atrial flutter, unspecified type (CMS/HCC); Diabetic polyneuropathy [...] Description 09/20/2024 3:00 PM EDT Office Visit [facility] ADULT DENTAL [address] [place] [address] Jacob Shannonaris [address] [place] [address] 09/23/2024 11:30 AM EDT Office Visit [facility] MEDICINE [address] [place] [address] Kay Mackay MD [address] [place] [address] documented as of this encounter Visit Diagnoses Diagnosis Atrial flutter, unspecified type (CMS/HCC) Diabetic polyneuropathy associated with type 2 diabetes mellitus (CMS/HCC) documented in this encounter Additional Health Concerns Assessment Noted Time PHQ-9 Depression Total Score: 6 11/24/19 24 2:35 PM EDT documented as of this encounter Care Teams Nurse Special Relationship Specialty Start Date End Date Faith Mason MD [address] [place] [address] PCP - General Family Medicine 04/12/19 Linda Peralta Sheet Music SalespersonPiano Accompanist 06/08/24 documented as of this encounter
--- OUTSIDE RECORDS SUMMARY | 2024-09-01 16:33 | XMS_ITS | Encounter Summary ---
Author Organization [employer] Address [address] [facility] 7t [place] [address] Care Team Providers Care Wire Stitcher Name Role Phone Faith Mason MD Primary Care Provide r Encounter Details Date Type Department Care Team ([facility] st Contact Info) Description 08/05/2024 Telephone [facility] [address] [place], [place] [phone] Faith Mason MD [address] [place], [place] [phone] Social History Tobacco Use Types Packs/Day Years [...] Description 09/20/2024 3:00 PM EDT Office Visit [facility] AD[facility] [address] [place] [address] Karen Shannon [address] [place] [address] 09/23/2024 11:30 AM EDT Office Visit [facility] [address] [place] [phone] Kay Mackay MD [address] [place] [address] documented as of this encounter Visit Diagnoses Not on filedocumented in this encounter Additional Health Concerns Assessment Noted Time PHQ-9 Depression Total Score: 6 11/24/19 24 2:35 PM EDT documented as of this encounter Care Teams Wire Stitcher Relationship Specialty Start Date End Date Faith Mason MD [address] [place] [phone] PCP - General Family Medicine 04/12/19 Linda Peralta Telecom AssistantBuhr Dresser 06/08/24 documented as of this encounter
--- OUTSIDE RECORDS SUMMARY | 2024-09-01 16:33 | XMS_ITS | Encounter Summary ---
Author Organization [facility] Address [address] [place] [phone] Phone Care Team Providers Care Draw End Hand Name Role Phone Ines Zamora MD Primary Care Provider Encounter Details Date Type Department Care Team (Late st Contact Info) Description 08/26/2024 Treatment [facility] [address] [phone] Sweetie Pandey MD [facility] [address] [phone] End stage renal disease; Dependence [...] Dialysis Note - Sweetie Pandey MD - 08/26/2024 12:00 AM EDT BASIC NOTE Patient: Sarah Corado : 1965 Note Author: SWEETIE PANDEY MD Service Date: 08/26/2024 This patient was personally seen for a basic visit as part of routine monthly dialysis care for end stage renal disease. Attending Furniture Assembly Supervisor: SWEETIE PANDEY Dialysis Location: [facility] Schedule: Shift: 2 ADEQUACY ASSESSMENT [...] 136 (06/29/24) 134 (06/01/24) ANEMIA ASSESSMENT Hgb 10.3 (08/10/24) 10.7 (07/27/24) 10.2 (07/20/24) Iron Saturation (TSat) 24 (07/27/24) 27 (06/29/24) [...] 07/27/24 9.8 06/29/24 10.0 06/17/24 Phosphorus, Serum 5.4 08/08/24 6.3 07/27/24 5.2 06/29/24 Ca*PO4 63.0 07/27/24 51.0 06/29/24 51.9 06/01/24 [...] 07/22/24 stable 07/27/24 doing ok 08/08/24 stable 08/15/24 stable 08/24/24 no new issues 08/26/24 stable 05/24/24 stable 05/27/24 doing ok 06/24/24 stBLE 01/27/24 stable 02/01/24 c/o eye pain after catract surg and has appt 02/0202/08/24 doing better 02/15/24 has appt w optho re L eye 02/29/24 cont eye pain, f/u with optho 03/16/24 eye pain resolved 03/28/24 stable 04/04/24. Has optho surg next week 04/11/24 stable 04/19/24 doing ok Signed by: SWEETIE PANDEY MD on 08/26/2024 at 06:20:37 PM Transcribed by: SWEETIE PANDEY MD on 08/26/2024 at 06:20:37 PM documented in this encounter Plan of Treatment Not on file documented as of this encounter Visit Diagnoses Diagnosis End stage renal disease Dependence on renal dialysis documented in this encounter Care Teams Draw End Hand Relationship Specialty Start Date End Date Ines Zamora MD [address] [place] [address] PCP - General 06/04/20 documented as of this encounter
--- OUTSIDE RECORDS SUMMARY | 2024-09-01 16:34 | XMS_ITS | Clinical Summary ---
Author Organization [facility] Address [address] [address] Phone Care Team Providers Care Varnishing Unit Tool Setter Name Role Phone Ines Zamora MD Primary Care Provider [phone] Medications lisinopril 10 MG tabletIndicatio ns:Stage 3 [...] Encounters Date Type Department Care Team Description 08/26/2024 Treatment [facility] [address] [address] Jeffy Tineo MD End stage renal disease; Dependence on renal dialysis 08/24/2024 Treatment [facility] [address] [address] Jeffy Tineo MD End stage renal disease; Dependence on renal dialysis 08/15/2024 Treatment [facility] [address] [phone] Jeffy Tineo MD End stage renal disease; Dependence on renal dialysis 08/08/2024 Treatment [facility] [address] [phone] Jeffy Tineo MD End stage renal disease; Dependence on renal dialysis 07/30/2024 Treatment [facility] [address] [address] Alber Rothman MD End stage renal disease; Dependence on renal dialysis 07/27/2024 Treatment [facility] [address] [phone] Jeffy Tineo MD End stage renal disease; Dependence on renal dialysis 07/22/2024 Treatment [facility] [address] [address] Jeffy Tineo MD End stage renal disease; Dependence on renal dialysis 07/13/2024 Orders Only [facility] [address] [phone] Jeffy Tineo MD 07/06/2024 Treatment [facility] [address] [phone] Jeffy Tineo MD 07/04/2024 Treatment [facility] [address] [phone] Jeffy Tineo MD 06/27/2024 Treatment [facility] [address] [phone] Jeffy Tineo MD 06/24/2024 Treatment [facility] [address] [phone] Jeffy Tineo MD 06/22/2024 Treatment [facility] [address] [facility] [address] [place] [address] Jeffy Tineo MD 06/17/2024 Treatment [facility] [address] [phone] Jeffy Tineo MD from Last 3 Months [...] Comments Breast Cancer Screening 1966 Pneumococcal Vaccine: Peds ( 0 to 5 Years) and At-Risk Patients (6 to 49 Years) (1 of 2 - PCV) 1972 Hepatitis B Vaccine (1 of 5 - Risk Dialysis 4-dose series) 1986 Colorectal Cancer Screening: Annual FOBT 2015 Colorectal Cancer Screening: Colonoscopy 2015 Colorectal Cancer Screening: Sigmoidoscopy 2015 Diabetes: Ophthalmology Exam 11/14/2020 Diabetes: Pedal Pulse Checked 11/14/2020 Diabetes: Sensory Foot Exam 11/14/2020 Diabetes: Visual Foot Exam 11/14/2020 Diabetes: Hemoglobin A1C 11/23/2024 025, 06/01/2024, 07/05/2020, Additional history exists Influenza Vaccine (Season Ended) 2025 Procedures Procedure Name Priority Date/Time Associated Diagnosis Comments TRANSFERRIN SATURATION Routine 3:00 AM EDT PROTEIN, TOTAL, SERUM Routine 08/24/2024 3:00 AM EDT LIPID PANEL Routine 08/24/2024 3:00 AM EDT MAGNESIUM Routine 08/24/2024 3:00 AM EDT ELECTROLYTE PANEL Routine 08/24/2024 3:0 0 AM EDT LIH (HC) Routine 08/24/2024 3:00 AM EDT CREATININE, SERUM Routine 08/24/2024 3:0 0 AM EDT LACTATE DEHYDROGENASE Routine 08/24/2024 3:00 AM EDT GLUCOSE, RANDOM Routine 08/24/2024 3:00 AM EDT BILIRUBIN, TOTAL Routine 08/24/2024 3:00 AM EDT AST Routine 08/24/2024 3:00 AM EDT ALKALINE PHOSPHATASE Routine 08/24/2024 3:00 AM EDT ALT Routine 08/24/2024 3:00 AM EDT CALCIUM PHOSPHORUS PRODUCT, ADJUSTED (HC) Routine 08/24/2024 3:00 AM EDT FERRITIN Routine 08/24/2024 3:00 AM EDT PTH, INTACT Routine 08/24/2024 3:00 AM EDT HEMOGLOBIN A1C Routine 08/24/2024 3:00 AM EDT KT/V NATURAL LOG, URR (HC) Routine 08/24/2024 3:00 AM EDT CBC AND DIFFERENTIAL Routine 08/24/2024 3:00 AM EDT HEMOGLOBIN AND HEMATOCRIT, BLOOD Routine 08/10/2024 3:00 AM EDT LIH (HC) Routine 08/08/2024 3:00 AM EDT [...] HEMATOCRIT, BLOOD Routine 06/08/2024 3:00 AM EST from Last 3 Months Results * LIH (08/24/2024 3:00 AM EDT) Only the most recent of5 resultswithin the time period is included. Lipemia Normal Normal [facility] Icterus Normal Normal [facility] Hemolysis Normal Normal [facility] 08/24/2024 3:00 AM EDT 08/26/2024 4:51 PM EDT us Jeffy Tineo MD LAB [id number] SOLICITED RESULTS Final Result Performing Organization Address [facility]/ZIP Co de Phone Number [facility] [address] [place] [address] * (ABNORMAL) Kt/V Natural Log, URR (08/24/2024 3:00 AM EDT) Only the most recent of3 resultswithin the time period is included. Treatment Time 210 min [facility] Pre-Weight, lb 100.4 kg [facility] Post-Weight, lb 97.2 kg [facility] Ultrafiltration Rate 9 <=13 mL/kg/hr [facility] Comment: Recommend achieving Ultrafiltration Rate (UFR) <=10 mL/kg/hr References: Charley TODD et al. Kidney Int. 2010; 79(2):250-257 BUN 59(H) 7 - 25 mg/dL [facility] BUN Post Dialysis 20 7 - 25 mg/dL [facility] UREA REDUCTION RATIO (%) 66 >=65 % [facility] Kt/V Natural Log 1.26 >=1.2 [facility] 08/24/2024 3:00 AM EDT 08/26/2024 4:51 PM EDT Jeffy Tineo MD LAB [id number] SOLICITED RESULTS Final Result Performing Organization Address [facility] Co de Phone Number [facility] [address] [place] [address] * Calcium Phosphorus Product, Adjusted (08/24/2024 3:00 AM EDT) Only the most recent of3 resultswithin the time period is included. Albumin 4.4 3.6 - 5.4 g/dL [facility] Calcium 10.1 8.6 - 10.3 mg/dL [facility] Phosphorus, Serum 4.9 2.5 - 5.0 mg/dL [facility] Ca*PO4 49.5 <55.0 mg2/dL2 [facility] Calcium, Adjusted Total 10.1 8.6 - 10.3 mg/dL [facility] CA*PO4 CORRCTD 49.5 <55.0 mg2/dL2 [facility] 08/24/2024 3:00 AM EDT 08/26/2024 4:51 PM EDT Jeffy Tineo MD LAB [id number] SOLICITED RESULTS Final Result Performing Organization Address [facility] de Phone Number [facility] [address] [place] [address] * (ABNORMAL) TSAT (08/24/2024 3:00 AM EDT) Only the most recent of3 resultswithin the time period is included. [facility] Iron 46(L) 50 - 170 ug/dL [facility] Transferrin 189(L) 250 - 380 mg/dL [facility] TIBC 265 211 - 406 ug/dL [facility] Iron Saturation (TSat) 17(L) 22 - 52 % [facility] 08/24/2024 3:00 AM EDT 08/26/2024 4:51 PM EDT Jeffy Tineo MD LAB BLOOD ORDERABLES Final Re sult Performing Organization Address [facility] de Phone Number [facility] [address] [place] [address] * (ABNORMAL) CBC and Differential (08/24/2024 3:00 AM EDT) Only the most recent of3 resultswithin the time period is included. [facility] DIFFERENTIAL MANUAL, 2 Not Indicated [facility] White Blood Cells 9.0 4.0 - 10.0 K/uL [facility] RBC 3.52(L) 3.93 - 5.22 M/uL [facility] Hgb 10.8(L) 11.2 - 15.7 g/dL [facility] Hemoglobin x 3 32.4(L) 33.6 - 47.1 g/dL [facility] Hematocrit 34.2 34.1 - 44.9 % [facility] MCV 97.2(H) 79.4 - 94.8 fL [facility] MCH 30.7 25.6 - 32.2 pg [facility] MCHC 31.6(L) 32.2 - 35.5 g/dL [facility] Platelets 190 182 - 369 K/uL [facility] RDW 15.5(H) 11.7 - 14.4 % [facility] Neutrophils Relative 72.9(H) 34.0 - 71.1 % [facility] Lymphocytes Relative 15.2(L) 19.3 - 51.7 % [facility] Monocytes 5.4 4.7 - 12.5 % [facility] Eosinophils Relative 5.0 0.7 - 5.8 % [facility] Basophils Relative 0.9 0.1 - 1.2 % [facility] Immature Granulocytes 0.6 0.0 - 1.0 % [facility] 08/24/2024 3:00 AM EDT 08/26/2024 4:46 PM EDT Jeffy Tineo MD LAB BLOOD ORDERABLES Final Re sult Performing Organization Address [facility] Co de Phone Number [facility] [address] [place] [address] * ALT (08/24/2024 3:00 AM EDT) Only the most recent of3 resultswithin the time period is included. ALT (SGPT) 17 10 - 49 U/L [facility] 08/24/2024 3:00 AM EDT 08/26/2024 4:51 PM EDT Jeffy Tineo MD LAB BLOOD ORDERABLES Final Re sult Performing Organization Address [facility] de Phone Number [facility] [address] [place] [address] * AST (08/24/2024 3:00 AM EDT) Only the most recent of3 resultswithin the time period is included. AST (SGOT) 17 <34 U/L [facility] 08/24/2024 3:00 AM EDT 08/26/2024 4:51 PM EDT us Jeffy Tineo MD LAB BLOOD ORDERABLES Final Re sult Performing Organization Address [facility] Co de Phone Number [facility] [address] [place] [address] * Protein, total (08/24/2024 3:00 AM EDT) Only the most recent of3 resultswithin the time period is included. Pathologist [facility] Total Protein 7.4 6.4 - 8.9 g/dL [facility] 08/24/2024 3:00 AM EDT 08/26/2024 4:51 PM EDT Jeffy Tineo MD LAB BLOOD ORDERABLES Final Re sult Performing Organization Address [facility] de Phone Number [facility] [address] [place] [address] * Alkaline phosphatase (08/24/2024 3:00 AM EDT) Only the most recent of3 resultswithin the time period is included. Pathologist [facility] Alkaline Phosphatase 115 46 - 116 U/L [facility] 08/24/2024 3:00 AM EDT 08/26/2024 4:51 PM EDT us Jeffy Tineo MD LAB BLOOD ORDERABLES Final Re sult Performing Organization Address [facility] de Phone Number [facility] [address] [place] [address] * PTH, Intact (08/24/2024 3:00 AM EDT) Only the most recent of2 resultswithin the time period is included. Pathologist [facility] PTH, Intact 230 160 - 721 pg/mL [facility] Comment: Suggested (KDIGO) ESRD maintenance range is two to nine times the upper normal limit (80.1 pg/mL) for the laboratory. 08/24/2024 3:00 AM EDT 08/26/2024 4:51 PM EDT us Jeffy Tineo MD LAB BLOOD ORDERABLES Final Re sult Performing Organization Address [facility] de Phone Number [facility] [address] [place] [address] * Magnesium (08/24/2024 3:00 AM EDT) Only the most recent of3 resultswithin the time period is included. Magnesium 2.4 1.9 - 2.7 mg/dL [facility] 08/24/2024 3:00 AM EDT 08/26/2024 4:51 PM EDT Jeffy Tineo MD LAB BLOOD ORDERABLES Final Re sult Performing Organization Address [facility] de Phone Number [facility] [address] [place] [address] * (ABNORMAL) Lactate dehydrogenase (08/24/2024 3:00 AM EDT) Only the most recent of3 resultswithin the time period is included. LDH 284(H) 120 - 246 U/L [facility] 08/24/2024 3:00 AM EDT 08/26/2024 4:51 PM EDT Jeffy Tineo MD LAB BLOOD ORDERABLES Final Re sult Performing Organization Address [facility] de Phone Number [facility] [address] [place] [address] * (ABNORMAL) Hemoglobin A1c (08/24/2024 3:00 AM EDT) Pathologist [facility] Hemoglobin A1C 7.7(H) <5.7 % [facility] Comment: Methodology: Enzymatic HbA1c (NGSP %) ?Suggested Diagnosis >6.4% ? Diabetic 5.7-6.4% ?Pre-Diabetic <5.7% ? Non-Diabetic Diabetic Glucose Control Evaluation: Therapeutic action suggested at >8.0% ADA recommends a glycemic goal of <7.0% 08/24/2024 3:00 AM EDT 08/26/2024 4:46 PM EDT Jeffy Tineo MD LAB BLOOD ORDERABLES Final Re sult Performing Organization Address [facility] de Phone Number [facility] [address] [place] [address] * (ABNORMAL) Glucose, random (08/24/2024 3:00 AM EDT) Only the most recent of3 resultswithin the time period is included. Glucose 184(H) 74 - 109 mg/dL [facility] 08/24/2024 3:00 AM EDT 08/26/2024 4:51 PM EDT Jeffy Tineo MD LAB BLOOD ORDERABLES Final Re sult Performing Organization Address [facility] Co de Phone Number [facility] [address] [place] [address] * (ABNORMAL) Ferritin (08/24/2024 3:00 AM EDT) Only the most recent of3 resultswithin the time period is included. Ferritin 1,351(H) 10 - 291 ng/mL [facility] 08/24/2024 3:00 AM EDT 08/26/2024 4:51 PM EDT Jeffy Tineo MD LAB BLOOD ORDERABLES Final Re sult Performing Organization Address [facility] Co de Phone Number [facility] [address] [place] [address] * (ABNORMAL) Creatinine, serum (08/24/2024 3:00 AM EDT) Only the most recent of3 resultswithin the time period is included. Creatinine 7.29(H) 0.55 - 1.02 mg/dL [facility] 08/24/2024 3:00 AM EDT 08/26/2024 4:51 PM EDT Jeffy Tineo MD LAB BLOOD ORDERABLES Final Re sult Performing Organization Address [facility] Co de Phone Number [facility] [address] [place] [address] * Bilirubin, total (08/24/2024 3:00 AM EDT) Only the most recent of3 resultswithin the time period is included. Total Bilirubin 0.5 0.3 - 1.2 mg/dL [facility] 08/24/2024 3:00 AM EDT 08/26/2024 4:51 PM EDT us Jeffy Tineo MD LAB BLOOD ORDERABLES Final Re sult [facility] [address] [place] [address] * (ABNORMAL) Lipid panel (08/24/2024 3:00 AM EDT) Cholesterol 74 <200 mg/dL [facility] Comment: Optimal: ?<200 Borderline: ? 200-239 Higher Risk: ?>239 Triglycerides 94 <150 mg/dL [facility] Comment: Optimal: ?<150 Borderline High: ??150-199 High: ? 200-499 Very High: ?>499 HDL 35(A) >59 mg/dL [facility] Comment: Desirable: ?>59 Higher Risk: ?<40 LDL-Calc 20 <100 mg/dL [facility] Comment: Optimal: ?<100 Above Optimal: ?100-129 Borderline High: ??130-159 High: ? 160-189 Very High: ?>189 VLDL Cholesterol Isma 19 <30 mg/dL [facility] Comment: Optimal: ?<30 Borderline High: ??30-39 High: ? 40-99 Very High: ?>99 Chol/HDL Ratio 2.1 <3.3 [facility] Comment: Optimal: ?<3.3 Higher Risk: ?>6.2 08/24/2024 3:00 AM EDT 08/26/2024 4:51 PM EDT Jeffy Tineo MD LAB BLOOD ORDERABLES Final Re sult Performing Organization Address [facility] Co de Phone Number [facility] [address] [place] [address] * (ABNORMAL) Electrolyte panel (08/24/2024 3:00 AM EDT) Only the most recent of3 resultswithin the time period is included. Sodium 137 136 - 145 mEq/L [facility] Potassium 5.4(H) 3.4 - 5.0 mEq/L [facility] Chloride 102 98 - 107 mEq/L [facility] Bicarbonate (CO2) 22 21 - 31 mEq/L [facility] Anion Gap 13 3 - 14 mEq/L [facility] 08/24/2024 3:00 AM EDT 08/26/2024 4:51 PM EDT Jeffy Tineo MD LAB BLOOD ORDERABLES Final Re sult Performing Organization Address [facility] de Phone Number [facility] [address] [place] [address] * (ABNORMAL) Hemoglobin and hematocrit (08/10/2024 3:00 AM EDT) Only the most recent of6 resultswithin the time period is included. Hgb 10.3(L) 11.2 - 15.7 g/dL [facility] Hematocrit 32.7(L) 34.1 - 44.9 % [facility] Hemoglobin x 3 30.9(L) 33.6 - 47.1 g/dL [facility] 08/10/2024 3:00 AM EDT 08/11/2024 2:26 PM EDT Jeffy Tineo MD LAB BLOOD ORDERABLES Final Re sult Performing Organization Address [facility] Co de Phone Number [facility] [address] [place] [address] * (ABNORMAL) Phosphorus (08/08/2024 3:00 AM EDT) Phosphorus, Serum 5.4(H) 2.5 - 5.0 mg/dL [facility] 08/08/2024 3:00 AM EDT 08/09/2024 12:11 PM EDT Jeffy Tineo MD LAB BLOOD ORDERABLES Final Re sult Performing Organization Address [facility] de Phone Number [facility] [address] [place] [address] * (ABNORMAL) Hemoglobin (07/20/2024 3:00 AM EST) Only the most recent of3 resultswithin the time period is included. Hgb 10.2(L) 11.2 - 15.7 g/dL [facility] Hemoglobin x 3 30.6(L) 33.6 - 47.1 g/dL [facility] 07/20/2024 3:00 AM EST 07/21/2024 12:09 PM EST us Jeffy Tineo MD LAB BLOOD ORDERABLES Final Re sult Performing Organization Address [facility] de Phone Number [facility] [address] [place] [address] * Collection Date (06/24/2024 3:00 AM EST) Collection Date See Comment [facility] Comment: Patient sample received may exceed specimen stability, based on the collection date electronically provided. ??When reviewing patient results, verify collection information and consider specimen stability before acting on any critical or panic results. 06/24/2024 3:00 AM EST us Jeffy Tineo MD LAB [id number] SOLICITED RESULTS Final Result Performing Organization Address [facility] de Phone Number [facility] [address] [place] [address] * Calcium, Adjusted w Albumin (06/17/2024 3:00 AM EST) Calcium 10.0 8.6 - 10.3 mg/dL [facility] Albumin 4.2 3.6 - 5.4 g/dL [facility] Calcium, Adjusted Total 10.0 8.6 - 10.3 mg/dL [facility] 06/17/2024 3:00 AM EST 06/18/2024 2:10 PM EST us Jeffy Tineo MD LAB BLOOD ORDERABLES Final Re sult Performing Organization Address City/State/[facility] Co de Phone Number [facility] [address] [place] [address] from Last 3 Months [place] Care Teams Varnishing Unit Tool Setter Relationship Specialty Start Date End Date Ines Zamora MD [address] [place] [address] [facility] - General 06/04/20
--- OUTSIDE RECORDS SUMMARY | 2024-09-01 16:34 | XMS_ITS | Encounter Summary ---
Author Organization [employer] Address [address] [facility] 7t [place] [address] Care Team Providers Care Safe Deposit Attendant Name Role Phone Faith Mason MD Primary Care Provide r Encounter Details Date Type Department Care Team ([facility] st Contact Info) Description 07/17/2023 Telephone [facility] MEDICINE [address] [place], [place] [phone] Faith Mason MD [address] [place], [place] [phone] Social History Tobacco Use Types Packs/Day Years [...] Description 09/20/2024 3:00 PM EDT Office Visit [facility] ADULT DENTAL [address] [place] [address] Shiva, Karen [address] [place] [address] 09/23/2024 11:30 AM EDT Office Visit [facility] MEDICINE [address] [place] [address] Kay Mackay MD [address] [place] [address] documented as of this encounter Visit Diagnoses Not on filedocumented in this encounter Additional Health Concerns Assessment Noted Time PHQ-9 Depression Total Score: 14 023 2:21 PM EDT documented as of this encounter Care Teams Safe Deposit Attendant Relationship Specialty Start Date End Date Faith Mason MD [address] [place] [address] PCP - General Family Medicine 04/12/19 Linda Peralta Fleet Sales ManagerSenior Manager [employer] 06/08/24 documented as of this encounter
--- OUTSIDE RECORDS SUMMARY | 2024-09-01 16:34 | XMS_ITS | Encounter Summary ---
Author Organization [employer] Address [address] [place] [address] 7t [place] [address] Care Team Providers Care Thermal Surfacing Machine Operator Name Role Phone Faith Mason MD Primary Care Provide r Reason for Visit * Reason Comments Med Refill Encounter Details Date Type Department Care Team (Late st Contact Info) Description 06/24/2023 Refill [facility] MEDICINE [address] [place], [place] [phone] Faith Maosn MD [address] [place], [place] [phone] Social History Tobacco Use Types Packs/Day Years [...] Description 09/20/2024 3:00 PM EDT Office Visit [facility] ADULT DENTAL [address] [place] [address] Shiva, Karen [address] [place] [address] 09/23/2024 11:30 AM EDT Office Visit [facility] MEDICINE [address] [place] [address] Kay Mackay MD [address] [place] [address] documented as of this encounter Visit Diagnoses Not on filedocumented in this encounter Additional Health Concerns Assessment Noted Time PHQ-9 Depression Total Score: 14 023 2:21 PM EDT documented as of this encounter Care Teams Thermal Surfacing Machine Operator Relationship Specialty Start Date End Date Faith Mason MD [address] [place] [address] PCP - General Family Medicine 04/12/19 Linda Peralta Backend DeveloperHospital Food Service Worker 06/08/24 documented as of this encounter
--- OUTSIDE RECORDS SUMMARY | 2024-09-01 16:34 | XMS_ITS | Encounter Summary ---
Author Organization [employer] Address [address] [place] [address] 7t [place] [address] Care Team Providers Care Clearing House Clerk Name Role Phone Faith Mason MD Primary Care Provide r Reason for Visit * Reason Onset Date Comments Durable Medical Equipment 11/05/2023 Encounter Details Date Type Department Care Team ([facility] st Contact Info) Description 11/05/[address] [facility] MEDICINE [address] [place], [place] [phone] Faith Mason MD [address] [place] [address] Durable Medical Equipment Social History Tobacco Use [...] 11/05/2023 12:47 PM EDT Silver Mckeon at [facility] calling to request the following DME. Shower Chair Shower grab bars Wheel chair Rolator walker with seat documented in this encounter Plan of Treatment Upcoming Encounters Date Type Department Care Team (Late st Contact Info) Description 09/20/2024 3:00 PM EDT Office Visit [facility] ADULT DENTAL [address] [place] [address] Karen Shannon [address] [place] [address] 09/23/2024 11:30 AM EDT Office Visit [facility] MEDICINE [address] [place] [address] Kay Mackay MD [address] [place] [address] documented as of this encounter Visit Diagnoses Not on filedocumented in this encounter Additional Health Concerns Assessment Noted Time PHQ-9 Depression Total Score: 14 023 2:21 PM EDT documented as of this encounter Care Teams Clearing House Clerk Relationship Specialty Start Date End Date Faith Mason MD [address] [place] [address] PCP - General Family Medicine 04/12/19 Linda Peralta Webbing WeaverChestnut Tanner 06/08/24 documented as of this encounter
--- OUTSIDE RECORDS SUMMARY | 2024-09-01 16:34 | XMS_ITS | Encounter Summary ---
Author Organization [employer] Address [address] [facility] [address]t [place] [address] Care Team Providers Care Horse Shoer Name Role Phone Faith Mason MD Primary Care Provide r Reason for Visit * Reason Comments Med Refill Encounter Details Date Type Department Care Team (Late st Contact Info) Description 08/11/2023 Refill [facility] MEDICINE [address] [place], [place] [phone] Faith Mason MD [address] [place], [place] [phone] Social History Tobacco Use Types Packs/Day Years [...] Description 09/20/2024 3:00 PM EDT Office Visit [facility] ADULT DENTAL [address] [place] [address] Shiva, Karen [address] [place] [address] 09/23/2024 11:30 AM EDT Office Visit [facility] MEDICINE [address] [place] [address] Kay Mackay MD [address] [place] [address] documented as of this encounter Visit Diagnoses Not on filedocumented in this encounter Additional Health Concerns Assessment Noted Time PHQ-9 Depression Total Score: 14 023 2:21 PM EDT documented as of this encounter Care Teams Horse Shoer Relationship Specialty Start Date End Date Faith Mason MD [address] [place] [address] PCP - General Family Medicine 04/12/19 Linda Peralta Bankruptcy ManagerWater Operator 06/08/24 documented as of this encounter
--- OUTSIDE RECORDS SUMMARY | 2024-09-01 16:34 | XMS_ITS | Encounter Summary ---
Author Organization [employer] Address [address] [facility] 7t [place] [address] Care Team Providers Care Learning And Development Specialist Name Role Phone Faith Mason MD Primary Care Provide r Reason for Visit * Reason Onset Date Comments FYI 08/13/2023 Encounter Details Date Type Department Care Team ([facility] st Contact Info) Description 08/13/2023 Telephone [facility] [address] [place], [place] [phone] Faith Mason MD [address] [place] [address] FYI Social History Tobacco Use Types Packs/Day [...] of today. Any questions contact Tameka at [phone] documented in this encounter Plan of Treatment Upcoming Encounters Date Type Department Care Team (Late st Contact Info) Description 09/20/2024 3:00 PM EDT Office Visit [facility] ADULT DENTAL [address] [place] [address] Shiva, Karen [address] [place] [address] 09/23/2024 11:30 AM EDT Office Visit [facility] [address] [place] [address] Kay Mackay MD [address] [place] [address] documented as of this encounter Visit Diagnoses Not on filedocumented in this encounter Additional Health Concerns Assessment Noted Time PHQ-9 Depression Total Score: 14 023 2:21 PM EDT documented as of this encounter Care Teams Learning And Development Specialist Relationship Specialty Start Date End Date Faith Mason MD [address] [place] [phone] PCP - General Family Medicine 04/12/19 Linda Peralta Volunteer SpecialistSpecial Delivery Messenger 06/08/24 documented as of this encounter
--- OUTSIDE RECORDS SUMMARY | 2024-09-01 16:34 | XMS_ITS | Encounter Summary ---
Author Organization [employer] Address [address] [place] [address] 7t [place] [address] Care Team Providers Care Substation Superintendent Name Role Phone Faith Mason MD Primary Care Provide r Reason for Visit * Reason Comments Med Change Request Encounter Details Date Type Department Care Team (Late Contact Info) Description 11/28/2022 Refill [facility] [address] [place], [place] [phone] Faith Mason MD [address] [place] [address] Type 2 diabetes mellitus with hyperglycemia, with long-term current use of insulin ([facility]) Social History Tobacco [...] Description 09/20/2024 3:00 PM EDT Office Visit [facility] ADULT D[facility] [address] [place], [place] [phone] Karen Shannon [address] [place] [address] 09/23/2024 11:30 AM EDT Office Visit [facility] [address] [place] [address] Kay Mackay MD [address] [place] [address] documented as of this encounter Visit Diagnoses Diagnosis Type 2 diabetes mellitus with hyperglycemia, with long-term current use of insulin ([facility]) documented in this encounter Additional Health Concerns Assessment Noted Time PHQ-9 Depression Total Score: 14 023 2:21 PM EDT documented as of this encounter Care Teams Substation Superintendent Relationship Specialty Start Date End Date Faith Mason MD [address] [place] [phone] PCP - General Family Medicine 04/12/19 Linda Peralta Supervisor TapingEpidemiology Internship 06/08/24 documented as of this encounter
--- OUTSIDE RECORDS SUMMARY | 2024-09-01 16:34 | XMS_ITS | Encounter Summary ---
Author Organization [employer] Address [address] [facility] [address] [place] [address] Care Team Providers Care Pants Presser Name Role Phone Faith Mason MD Primary Care Provide r Reason for Visit * Reason Comments Med Refill Encounter Details Date Type Department Care Team (Late st Contact Info) Description 04/04/2024 Refill [facility] [address] [place], [place] [phone] Faith Mason MD [address] [place] [address] Essential hypertension Social History Tobacco Use Types [...] Description 09/20/2024 3:00 PM EDT Office Visit [facility] ADULT D[facility]AL [address] [place] [address] Shiva, Karen [address] [place] [address] 09/23/2024 11:30 AM EDT Office Visit [facility] MED[facility] [address] [place] [address] Kay Mackay MD [address] [place] [address] documented as of this encounter Visit Diagnoses Diagnosis Essential hypertension Unspecified essential hypertension documented in this encounter Additional Health Concerns Assessment Noted Time PHQ-9 Depression Total Score: 6 11/24/19 24 2:35 PM EDT documented as of this encounter Care Teams Pants Presser Relationship Specialty Start Date End Date Faith Mason MD [address] [place] [id number] PCP - General Family Medicine 04/12/19 Linda Peralta Crowning InspectorBar Turner 06/08/24 documented as of this encounter
== END 2024-09-01 14:35 | disposition home or self-care (01) ==
LOC: HO.ENCR 13:41
PROVIDERS: PCP Internal Medicine; Visit Provider Nurse Practitioner Adult Health
DX: E11.65 Type 2 diabetes mellitus with hyperglycemia (principal); Z79.4 Long term (current) use of insulin
CPT/HCPCS: 99214

== ENCOUNTER → 2024-09-01 13:41 | Outpatient (BNVA) | payer MEDICAID, SELFPAY | PROVIDERS: PCP Internal Medicine; Visit Provider Nurse Practitioner Adult Health | DX: E11.65 Type 2 diabetes mellitus with hyperglycemia (principal); Z79.4 Long term (current) use of insulin; Z79.899 Other long term (current) drug therapy | CPT/HCPCS: 82947; 99212 ==

== ENCOUNTER 2024-09-13 18:39 | Emergency (ER) | payer MEDICAID, SELFPAY ==
[2024-09-13 18:47] VITALS: BP 152/90; PULSE 62; O2SAT 98
[2024-09-13 19:34] VITALS: BP 146/67; PULSE 65; RESP 20; TEMP 37.3; O2SAT 95; BMI 43.6
--- NOTE | 2024-09-13 19:39 | PC.NURSE ---
Pt coming from home, reporting she had HD last night and has been unable to get her site to stop bleeding. This RN assessed site, slight oozing noted from bottom insertion site. This RN placed gauze and rewrapped at this time until provider able to assess. Pt denies that she receives heparin during treatment. Denies pain. Her HD is MWF. + B/T [facility]. Pt is A/o at this time.
[2024-09-13 21:49] VITALS: BP 156/63; PULSE 64; RESP 18; TEMP 36.6; O2SAT 95
--- NOTE | 2024-09-13 22:27 | PC.NURSE ---
pt awaiting to be seen by provider.
--- NOTE | 2024-09-13 23:21 | MHC.EDTECH ---
this tech assumed care of pt @[phone]
--- NOTE | 2024-09-14 | ED.GENADULT ---
HPI - General Adult General Chief complaint: General Medical Stated complaint: bleeding fistula Time Seen by Provider: 09/13/24 23:45 Source: patient, family and educational sign language interpreter Mode of arrival: ambulatory Limitations: no limitations History of Present Illness ED Provider: DR. Ontiveros HPI narrative: 59-year-old female end-stage renal disease on hemodialysis, last dialysis was yesterday using left arm AV fistula graft, patient is on apixaban 5 mg daily, patient reported that AV fistula with bleeding since yesterday, patient applied pressure on the fistula without stopping the bleed, came in today pressure dressing was applied to the fistula. At the time of the exam fistulized lot bleeding. Related Data Home Medications ?Medication ?Instructions ?Recorded ?Confirmed hydralazine 50 mg tablet 1 tab PO TID@0900,1200,1800 blood 02/12/21 06/28/24 pressure melatonin 5 mg tablet 5 mg PO BEDTIME PRN Sleep 02/12/21 06/28/24 atorvastatin 40 mg tablet 40 mg PO DAILY@1200 cholesterol 02/26/21 06/28/24 sevelamer carbonate 800 mg tablet 800 mg PO TIDAC 02/26/21 06/28/24 amlodipine 10 mg tablet 10 mg PO DAILY blood pressure 04/25/24 06/28/24 brimonidine 0.2 % eye drops 1 drp ophthalmic-Left TID 04/25/24 06/28/24 calcium polycarbophil 625 mg 625 mg PO DAILY 04/25/24 06/28/24 tablet (Fiber-Lax) cholecalciferol (vitamin D3) 50 50 mcg PO DAILY 04/25/24 06/28/24 mcg (2,000 unit) capsule (Vitamin D3) ketorolac 0.5 % eye drops 1 drp ophthalmic (eye) TID 04/25/24 06/28/24 levocetirizine 5 mg tablet 5 mg PO BEDTIME 04/25/24 06/28/24 levothyroxine 25 mcg tablet 25 mcg PO DAILY@0600 04/25/24 06/28/24 loratadine 10 mg tablet 10 mg PO DAILY 04/25/24 06/28/24 omeprazole 20 mg capsule,delayed 20 mg PO DAILY@0630 04/25/24 06/28/24 release clopidogrel 75 mg tablet (Plavix) 75 mg PO DAILY 06/16/24 06/28/24 Previous Rx's ?Medication ?Instructions ?Recorded apixaban 5 mg tablet (Eliquis) 5 mg PO BID 90 days #180 tabs 08/02/21 FreeStyle Lite Strips (blood sugar #50 ea 02/25/24 diagnostic) blood-glucose meter (FreeStyle #1 ea 02/25/24 Lite Meter kit) glucose 4 gram chewable tablet 16 g (4 x 4 gram) PO Q15M PRN 02/25/24 (Dex4 Glucose) hypoglycemia 30 days #30 tabs lancets 33 gauge (TRUEplus Lancets) #50 ea 02/25/24 metoprolol tartrate 25 mg tablet 12.5 mg (1/2 x 25 mg) PO BID #30 05/01/24 tabs insulin glargine U-300 conc 300 18 unit (0.06 mL) subcut BEDTIME 07/05/24 unit/mL (1.5 mL) subcutaneous pen 30 days #3 mL (Toujeo SoloStar U-300 Insulin) insulin lispro 100 unit/mL 10 - 16 unit (0.1 - 0.16 mL) 07/05/24 subcutaneous pen subcut DIRECTED 30 days #15 mL pen needle, diabetic 32 gauge x #150 ea 08/24/2405/28 blood-glucose sensor (FreeStyle #2 ea 09/01/24 Tika 3 Plus Sensor device) Allergies Allergy/AdvReac Type Severity Reaction Status Date / Time No Known Allergies Allergy Verified 09/13/24 19:35 Review of Systems Review of Systems: All other systems are reviewed and are negative Constitutional: Reports as per HPI and Reports no additional constitutional complaints Eyes: Reports as per HPI and Reports no additional eye complaints Reports system reviewed and no additional complaints, except as documented Cardiovascular: Reports as per HPI and Reports no additional cardiovascular complaints Respiratory: Reports as per HPI and Reports no additional respiratory complaints Gastrointestinal: Reports as per HPI and Reports no additional gastrointestinal complaints Genitourinary: Reports no additional female genitourinary complaints Musculoskeletal: Reports no additional musculoskeletal complaints Skin/Breast: Reports system reviewed and no additional complaints, except as docu Psychiatric: Reports no additional psychiatric complaints Endocrine: Reports no additional endocrine complaints Hematologic/Lymphatic: Reports no additional hematologic/lymphatic complaints Allergic/Immunologic: Reports no additional allergic/immunologic complaints Reports system reviewed and no additional complaints, except as documented and Reports Abnormal speech present PMFSH Past Medical History Medical History Non-toxic multinodular goiter Chronic kidney disease with end stage renal failure on dialysis 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 Uncontrolled type 2 diabetes mellitus with hyperglycemia, with long-term current use of insulin Hidradenitis suppurativa Pneumonia Type 2 diabetes mellitus with hyperglycemia Paroxysmal atrial flutter Dysphonia Chronic cough Urinary frequency Dyspnea on exertion Unstable gait Asthma Chronic low back pain without sciatica Osteoarthritis of both knees Kidney stones Depression AMARJIT (obstructive sleep apnea) Normocytic anemia ESRD needing dialysis CHF (congestive heart failure) Obesity due to excess calories CAD (coronary artery disease) GERD (gastroesophageal reflux disease) Thyroid disease AV fistula HLD (hyperlipidemia) ESRD (end stage renal disease) T2DM (type 2 diabetes mellitus) End stage renal disease on dialysis Dialysis patient Renal failure (ARF), acute on chronic HTN (hypertension) Surgical History History of cardiac cath History of kidney surgery Hx of cholecystectomy Hx of bone graft Family History Family History Father CVD (cardiovascular disease) Diabetes Mother Diabetes Sister Stomach cancer Social History Social History Household Members: Spouse Household Members Other:: , brother, uncles Housing: House Do you presently have visiting nurse or other home services: Yes Unable to assess alcohol history related to: Unknown Alcohol intake: never Patient Tobacco Use Status: Never used Tobacco Advance Directives: Yes Advance Directives on File: Yes Advance Directives Date on File: 02/15/21 service: No Current occupational status: disabled Current occupation: right hand dominant Physical Exam ED Vital Signs: Vital Signs - 24 hr 09/13/24 19:34 09/13/24 21:49 09/14/24 00:13 Temperature 99.2 F 97.8 F 98.1 F Pulse Rate 65 64 66 Respiratory Rate 20 18 17 Blood Pressure 146/67 H 156/63 H 173/66 H Pulse Oximetry 95 95 95 Oxygen Delivery Method Room Air Room Air Room Air BMI result Body Mass Index 43.6 Vital signs have been reviewed and appear to be correct. Blood pressure elevated. Heart rate normal. Respiratory rate normal. Temperature normal. Oxygen saturation normal. Appearance: Alert. Oriented X3. No acute distress. Head: Normal external exam. Normocephalic. Atraumatic. No Lora signs noted. No raccoon eyes noted Eyes: PERRLA. EOMI. Conjunctiva and sclera normal. Eyelids normal. ENT: TM's Normal. Pharynx normal. Uvula midline. Moist mucous membranes. No trismus noted. No drooling noted. No muffled voice noted. Neck: Normal inspection. Neck supple. FROM. No adenopathy. Thyroid Normal. No meningeal signs. No neck mass noted. CVS: Normal heart rate and rhythm. Heart sound normal. No murmurs noted. Pulses normal throughout. Respiratory: No respiratory distress. Painless inspiration. Breath sounds normal. No wheezes/rales/rhonchi noted. Chest nontender. No accessory muscle usage noted or decreased air movement noted. Abdomen: Soft and nontender. Bowel sounds normal in all 4 quadrants. No distention noted. No organomegaly noted. No visible injury noted. Back: No CVA tenderness. Full range of motion noted. Skin: Skin warm and dry. Normal skin color. Normal skin turgor. No rashes/lesions/lacerations noted. Extremities: Left arm AV fistula is intact, no active bleeding. Neuro: Oriented X 3. Cranial nerve exam: II-XII are grossly intact No motor deficit. No sensory deficit. Reflexes normal. Course Reevaluation(s) Reevaluation #1: Left AV fistula bleeding that improved after applying pressure in the ED. Time: 01:00 Medical Decision Making Differential Diagnosis Differential Diagnoses: The differential diagnosis associated with the presentation includes (Thrombocytopenia, coagulopathy.) Admission/Observation Consideration of admission/observation: Escalation of care including admission/observation considered Lab Data MDM Lab Attestation statement: I reviewed the patient's lab results. 09/14/24 00:41 Labs: Lab Results 09/14/24 Range/Units 00:41 WBC 7.9 (4.8-10.8) X10*3/uL RBC 3.32 L D (4.20-5.50) X10*6/uL Hgb 10.2 L D (12.0-16.0) g/dl Hct 31.2 L D (37.0-47.0) % MCV 94.0 (80.0-98.0) fL MCH 30.7 (27.0-33.0) pg MCHC 32.7 (31.0-35.0) g/dl RDW 15.8 (11.0-16.0) % Plt Count 182 D (160-400) X10*3/uL MPV 11.6 (9.4-12.3) fL Immature Gran % (Auto) 0.5 H (0.0-0.4) % Neut % (Auto) 69.9 (45-73) % Lymph % (Auto) 17.4 L (20-40) % Morrill % (Auto) 6.5 (2-11) % Eos % (Auto) 4.9 H (0-4) % Baso % (Auto) 0.8 (0-2) % Lymph # (Auto) 1.4 (1.2-4.9) X10*3/uL Morrill # (Auto) 0.5 (0.1-1.2) X10*3/uL Eos # (Auto) 0.4 (0.0-0.4) X10*3/uL Baso # (Auto) 0.1 (0.0-0.2) X10*3/uL Abs Immat Gran (auto) 0.04 H (0.00-0.03) X10*3/uL Absolute Neuts (auto) 5.6 (2.0-8.3) x10*3/uL Absolute Nucleated RBC 0.000 (0.0-0.012) X10*3/uL Nucleated RBC % (auto) 0.0 (0.0-0.2) /100WBC PT 15.6 H (10.9-12.4) SEC INR 1.3 H (0.9-1.1) Discharge Plan Discharge Clinical Impression: Hemorrhage of arteriovenous fistula Patient Disposition: Home, Self-Care Additional Instructions: If the AV fistula is bleeding apply gentle pressure on the bleeding site for 10 minutes and if it did not stop seek for immediate medical attention. Prescriptions: No Action Eliquis 5 mg tablet 5 mg PO BID 90 Days Qty: 180 3RF (DME) pen needle, diabetic 32 gauge x 1/4 needle See Rx Instructions .ROUTE .MEDSUPPLY Qty: 150 11RF Rx Instructions: As directed 4 times a day hydralazine 50 mg tablet 1 tab PO TID@0900,1200,1800 melatonin 5 mg tablet 5 mg PO BEDTIME PRN (Reason: Sleep) atorvastatin 40 mg tablet 40 mg PO DAILY@1200 sevelamer carbonate 800 mg tablet 800 mg PO TIDAC brimonidine 0.2 % drops 1 drp ophthalmic-Left TID calcium polycarbophil [Fiber-Lax] 625 mg tablet 625 mg PO DAILY omeprazole 20 mg capsule,delayed release(DR/EC) 20 mg PO DAILY@0630 loratadine 10 mg tablet 10 mg PO DAILY levocetirizine 5 mg tablet 5 mg PO BEDTIME cholecalciferol (vitamin D3) [Vitamin D3] 50 mcg (2,000 unit) capsule 50 mcg PO DAILY ketorolac 0.5 % drops 1 drp ophthalmic (eye) TID amlodipine 10 mg tablet 10 mg PO DAILY levothyroxine 25 mcg tablet 25 mcg PO DAILY@0600 metoprolol tartrate 25 mg tablet 12.5 mg PO BID Qty: 30 0RF clopidogrel [Plavix] 75 mg tablet 75 mg PO DAILY (DME) FreeStyle Tika 3 Plus Sensor Device See Rx Instructions .ROUTE .MEDSUPPLY Qty: 2 11RF Rx Instructions: As directed every 15 days (DME) blood-glucose meter [FreeStyle Lite Meter] Kit See Rx Instructions .ROUTE .MEDSUPPLY Qty: 1 0RF Rx Instructions: As directed (DME) FreeStyle Lite Strips Strip See Rx Instructions .ROUTE .COMPLEX Qty: 50 11RF Dose Instruction: TEST BLOOD SUGAR FOUR TIMES DAILY Rx Instructions: TEST BLOOD SUGAR FOUR TIMES DAILY prn sensor failure or to confirm sensor readings (DME) lancets [TRUEplus Lancets] 33 gauge misc See Rx Instructions .ROUTE .COMPLEX Qty: 50 11RF Dose Instruction: TEST BLOOD SUGAR FOUR TIMES DAILY Rx Instructions: TEST BLOOD SUGAR FOUR TIMES DAILY prn to confirm sensor reading or sensor failure glucose [Dex4 Glucose] 4 gram tablet,chewable 16 g PO Q15M MDD 16 tablets PRN (Reason: hypoglycemia) 30 Days Qty: 30 3RF Rx Instructions: every 15 minutes until symptoms of low blood sugar are controlled insulin glargine U-300 conc [Tousharlene SoloStar U-300 Insulin] 300 unit/mL (1.5 mL) insulin pen 18 unit subcut BEDTIME 30 Days Qty: 3 5RF insulin lispro 100 unit/mL insulin pen 10 - 16 unit subcut DIRECTED 30 Days Qty: 15 5RF Referrals: Faith Mason MD [Primary Care Provider] - Print Language: Polish
[2024-09-14 00:13] VITALS: BP 173/66; PULSE 66; RESP 17; TEMP 36.7; O2SAT 95
[2024-09-14 00:46] LABS: MANUAL DIFF FLAG NO
[2024-09-14 00:47] LABS: Basophils Absolute Auto 0.1 X10*3/uL (0.0-0.2); Basophils Percent Auto 0.8 % (0-2); Eosinophils Absolute Auto 0.4 X10*3/uL (0.0-0.4); Eosinophils Percent Auto 4.9 % (0-4); Hematocrit 31.2 % (37.0-47.0); Hemoglobin 10.2 g/dl (12.0-16.0); Imm Gran Abs Auto 0.04 X10*3/uL (0.00-0.03); Imm Gran Pct Auto 0.5 % (0.0-0.4); Lymphocytes Absolute Auto 1.4 X10*3/uL (1.2-4.9); Lymphocytes Percent Auto 17.4 % (20-40); Mean Corpuscular HGB Conc 32.7 g/dl (31.0-35.0); Mean Corpuscular Hemoglobin 30.7 pg (27.0-33.0); Mean Platelet Volume 11.6 fL (9.4-12.3); Monocytes Absolute Auto 0.5 X10*3/uL (0.1-1.2); Monocytes Percent Auto 6.5 % (2-11); Neutrophils Absolute Auto 5.6 x10*3/uL (2.0-8.3); Neutrophils Percent Auto 69.9 % (45-73); Platelet Count 182 X10*3/uL (160-400); Red Blood Count 3.32 X10*6/uL (4.20-5.50); Red Cell Distribution Width 15.8 % (11.0-16.0); White Blood Count 7.9 X10*3/uL (4.8-10.8)
[2024-09-14 00:52] LABS: INTERNATIONAL NORM RATIO 1.3 (0.9-1.1); Prothrombin Time 15.6 SEC (10.9-12.4)
--- NOTE | 2024-09-14 01:21 | PC.NURSE ---
bleeding controlled, reviewed discharge instruction with pt, pt verbalized understanding, no sign of distress upon discharge.
[2024-09-14 01:24] VITALS: BP 173/66; PULSE 66; RESP 17; TEMP 36.7; O2SAT 95
== END 2024-09-14 01:25 | disposition home or self-care (01) ==
PROVIDERS: Emergency Provider Emergency Medicine; PCP Internal Medicine
DX: T82.838A Hemorrhage due to vascular prosthetic devices, implants and grafts, initial encounter (principal); Y83.9 Surgical procedure, unspecified as the cause of abnormal reaction of the patient, or of later complication, without mention of misadventure at the time of the procedure; Y82.9 Unspecified medical devices associated with adverse incidents; E11.9 Type 2 diabetes mellitus without complications; Z79.4 Long term (current) use of insulin; Z79.899 Other long term (current) drug therapy
CPT/HCPCS: 36415; 85025; 85610; 99283; 99284

== ENCOUNTER 2024-09-27 08:53 | Outpatient (REF) | payer MEDICAID, SELFPAY ==
--- NOTE | 2024-09-27 09:02 | EMG_ITS ---
Right median and ulnar motor and sensory studies were performed. Right radial sensory studies were performed and paraspinal muscles were tested with a needle. IMPRESSION: Iixsweib-jr-zoggip axonal sensory motor peripheral neuropathy. MD TRENT Broussard/LG / [id number]
--- OUTSIDE RECORDS SUMMARY | 2024-09-27 09:27 | XMS_ITS | Encounter Summary ---
Author Organization [facility] Address [address] [place] [phone] Phone Care Team Providers Care Artist Color Separation Name Role Phone Ines Zamora MD Primary Care Provider Encounter Details Date Type Department Care Team (Late st Contact Info) Description 09/09/2024 Treatment [facility] [address] [phone] Sweetie Pandey MD [facility] [address] [address] End stage renal disease; Dependence [...] Dialysis Note - Sweetie Pandey MD - 09/09/2024 12:00 AM EDT BASIC NOTE Patient: Sarah Corado : 1965 Note Author: SWEETIE PANDEY MD Service Date: 09/09/2024 Telehealth encounter using audiovisual technology, performed according to state requirements. Appropriate patient consent obtained. This patient was personally seen for a basic visit as part of routine monthly dialysis care for end stage renal disease. Attending Coordinator Of Health Services: SWEETIE PANDEY MD [facility] Schedule: Shift: 2 ADEQUACY ASSESSMENT Kt/V, Natural Log 1.26 (08/24/24) 1.38 (07/27/24) 1.41 (06/29/24) UREA REDUCTION RATIO (%) 66 (08/24/24) 69 (07/27/24) 71 (06/29/24) BUN 59 (08/24/24) 72 (07/27/24) 55 (06/29/24) BUN Post Dialysis 20 (08/24/24) 22 (07/27/24) 16 (06/29/24) Creatinine 7.29 (08/24/24) 8.75 (07/27/24) 7.22 (06/29/24) Bicarbonate (CO2) 22 (08/24/24) 24 (07/27/24) 27 (06/29/24) Sodium 137 (08/24/24) 134 (07/27/24) 136 (06/29/24) ANEMIA ASSESSMENT Hgb 11.0 (09/12/24) 11.2 (09/07/24) 10.8 (08/24/24) Iron Saturation (TSat) 17 (08/24/24) 24 (07/27/24) 27 (06/29/24) Ferritin 1,351 (08/24/24) 1,250 (07/27/24) 1,647 (06/29/24) Iron 46 (08/24/24) 69 (07/27/24) 70 (06/29/24) TIBC 265 (08/24/24) 284 (07/27/24) 258 (06/29/24) MCV 97.2 (08/24/24) 98.8 (07/27/24) 97.7 (06/29/24) Platelets 190 (08/24/24) 187 (07/27/24) 176 (06/29/24) BMM ASSESSMENT Calcium, Adjusted Total 10.1 08/24/24 10.0 07/27/24 9.8 06/29/24 Calcium 10.1 08/24/24 10.0 07/27/24 9.8 06/29/24 Phosphorus, Serum 4.9 08/24/24 5.4 08/08/24 6.3 07/27/24 Ca*PO4 49.5 08/24/24 63.0 07/27/24 51.0 06/29/24 PTH, Intact 230 08/24/24 495 06/29/24 622 06/01/24 Vitamin D, 25-Hydroxy 48 06/01/24 Magnesium 2.4 08/24/24 2.4 07/27/24 2.2 06/29/24 Alkaline Phosphatase 115 08/24/24 115 07/27/24 98 06/29/24 Aluminum 4 06/01/24 NUTRITION ASSESSMENT Albumin 4.4 08/24/24 4.3 07/27/24 4.1 06/29/24 Potassium 5.4 08/24/24 5.4 07/27/24 4.7 06/29/24 Hemoglobin A1C 7.7 08/24/24 7.8 06/01/24 ADDITIONAL LABS White Blood Cells 9.0 (08/24/24) 9.1 (07/27/24) 7.7 (06/29/24) Cholesterol 74 (08/24/24) 83 (06/01/24) HDL 35 (08/24/24) 31 (06/01/24) LDL-Calc 20 (08/24/24) 28 (06/01/24) Triglycerides 94 (08/24/24) 119 (06/01/24) Hep B Surface Antibody 19 (06/01/24) 25 (05/04/24) Uric Acid 6.0 (06/01/24) ADDITIONAL COMMENT COMMENTS: 07/04/24 stable 07/06/24 no new issues 07/22/24 stable 09/02/24 stable 09/09/24 stable 09/19/24 no new issues 07/27/24 doing ok 08/08/24 stable 08/15/24 stable [...] ok Signed by: SWEETIE PANDEY MD on 09/22/2024 at 01:32:13 AM Transcribed by: SWEETIE PANDEY MD on 09/22/2024 at 01:32:13 AM documented in this encounter Plan of Treatment Not on file documented as of this encounter Visit Diagnoses Diagnosis End stage renal disease Dependence on renal dialysis documented in this encounter Care Teams Artist Color Separation Relationship Specialty Start Date End Date Ines Zamora MD [address] [place] [phone] PCP - General 06/04/20 documented as of this encounter
--- OUTSIDE RECORDS SUMMARY | 2024-09-27 09:27 | XMS_ITS | Clinical Summary ---
Author Organization [facility] Address [address] [address] Phone Care Team Providers Care Air Crew Supervisor Name Role Phone Ines Zamora MD Primary Care Provider [phone] Medications lisinopril 10 MG tabletIndicatio ns:Stage 3 [...] Encounters Date Type Department Care Team Description 09/19/2024 Treatment [facility] [address] [address] Jeffy Tineo MD End stage renal disease; Dependence on renal dialysis 09/09/2024 Treatment [facility] [address] [address] Jeffy Tineo MD End stage renal disease; Dependence on renal dialysis 09/02/2024 Treatment [facility] [address] [phone] Jeffy Tineo MD End stage renal disease; Dependence on renal dialysis 08/26/2024 Treatment [facility] [address] [phone] Jeffy Tineo MD End stage renal disease; Dependence on renal dialysis 08/24/2024 Treatment [facility] [address] [phone] Jeffy Tineo MD End stage renal disease; Dependence on renal dialysis 08/15/2024 Treatment [facility] [address] [phone] Jeffy Tineo MD End stage renal disease; Dependence on renal dialysis 08/08/2024 Treatment [facility] [address] [phone] Jeffy Tineo MD End stage renal disease; Dependence on renal dialysis 07/30/2024 Treatment [facility] [address] [phone] Alber Rothman MD End stage renal disease; Dependence on renal dialysis 07/27/2024 Treatment [facility] [address] [phone] Jeffy Tineo MD End stage renal disease; Dependence on renal dialysis 07/22/2024 Treatment [facility] [address] [phone] Jeffy Tineo MD End stage renal disease; Dependence on renal dialysis 07/13/2024 Orders Only [facility] [address] [phone] Jeffy Tineo MD 07/06/2024 Treatment [facility] [address] [facility] [address] [place] [phone] Jeffy Tineo MD 07/04/2024 Treatment [facility] [address] [facility] [address] [place] [address] Jeffy Tineo MD from Last 3 Months [...] Comments Breast Cancer Screening 1965 Pneumococcal Vaccine: 50+ Ye ars (1 of 2 - PCV) 1985 Hepatitis B Vaccine (1 of 5 - Risk Dialysis 4-dose series) 1986 Colorectal Cancer Screening: Annual FOBT 2015 Colorectal Cancer Screening: Colonoscopy 2015 Colorectal Cancer Screening: Sigmoidoscopy 2015 Diabetes: Ophthalmology Exam 11/14/2020 Diabetes: Pedal Pulse Checked 11/14/2020 Diabetes: Sensory Foot Exam 11/14/2020 Diabetes: Visual Foot Exam 11/14/2020 Diabetes: Hemoglobin A1C 11/23/2024 04/ 025, 06/01/2024, 07/05/2020, Additional history exists Influenza Vaccine (Season Ended) 2025 Procedures Procedure Name Priority Date/Time Associated Diagnosis Comments HEMOGLOBIN Routine 09/12/2024 3:00 AM EDT HEMOGLOBIN AND HEMATOCRIT, BLOOD Routine 09/07/2024 3:00 AM EDT TRANSFERRIN SATURATION Routine 3:00 AM EDT PROTEIN, [...] 3:00 AM EDT KT/V NATURAL LOG, URR () Routine 08/24/2024 3:00 AM EDT CBC AND DIFFERENTIAL Routine 08/24/2024 3:00 AM EDT HEMOGLOBIN AND HEMATOCRIT, BLOOD Routine 08/10/2024 3:00 AM EDT LIH () Routine 08/08/2024 3:00 AM EDT PHOSPHATE ( PHOSPHORUS) Routine 08/08/2024 3:00 AM EDT FERRITIN Routine 07/27/2024 3:00 AM EST TRANSFERRIN SATURATION Routine 3:00 AM EST PROTEIN, TOTAL, SERUM Routine 07/27/2024 3:00 AM EST MAGNESIUM Routine 07/27/2024 3:00 AM EST LIH () Routine 07/27/2024 3:00 AM EST ELECTROLYTE PANEL [...] HEMATOCRIT, BLOOD Routine 07/06/2024 3:00 AM EST from Last 3 Months Results * (ABNORMAL) Hemoglobin (09/12/2024 3:00 AM EDT) Only the most recent of3 resultswithin the time period is included. Hgb 11.0(L) 11.2 - 15.7 g/dL [facility] Hemoglobin x 3 33.0(L) 33.6 - 47.1 g/dL [facility] 09/12/2024 3:00 AM EDT 09/13/2024 2:18 PM EDT us Jeffy Tineo MD LAB BLOOD ORDERABLES Final Re sult [facility] [address] [place] [address] * Hemoglobin and hematocrit (09/07/2024 3:00 AM EDT) Only the most recent of4 resultswithin the time period is included. Hgb 11.2 11.2 - 15.7 g/dL [facility] Hematocrit 34.8 34.1 - 44.9 % [facility] Hemoglobin x 3 33.6 33.6 - 47.1 g/dL [facility] 09/07/2024 3:00 AM EDT 09/08/2024 12:50 PM EDT us Jeffy Tineo MD LAB BLOOD ORDERABLES Final Re sult Performing Organization Address [facility] Co de Phone Number [facility] [address] [place] [address] * LIH (08/24/2024 3:00 AM EDT) Only the most recent of3 resultswithin the time period is included. Lipemia Normal Normal [facility] Icterus Normal Normal [facility] Hemolysis Normal Normal [facility] 08/24/2024 3:00 AM EDT 08/26/2024 4:51 PM EDT us Jeffy Tineo MD LAB [id number] SOLICITED RESULTS Final Result Performing Organization Address [facility] de Phone Number [facility] [address] [place] [address] * (ABNORMAL) Kt/V Natural Log, URR (08/24/2024 3:00 AM EDT) Only the most recent of2 resultswithin the time period is included. Treatment [...] PM EDT us Jeffy Tineo MD LAB [id number] SOLICITED RESULTS Final Result Performing Organization Address City/[facility]/ZIP Co de Phone Number [facility] [address] [place] [address] * Calcium Phosphorus Product, Adjusted (08/24/2024 3:00 AM EDT) Only the most recent of2 resultswithin the time period is included. Albumin 4.4 3.6 - 5.4 g/dL [facility] Calcium 10.1 8.6 - 10.3 mg/dL [facility] Phosphorus, Serum 4.9 2.5 - 5.0 mg/dL [facility] Ca*PO4 49.5 <55.0 mg2/dL2 [facility] Calcium, Adjusted Total 10.1 8.6 - 10.3 mg/dL [facility] CA*PO4 CORRCTD 49.5 <55.0 mg2/dL2 [facility] 08/24/2024 3:00 AM EDT 08/26/2024 4:51 PM EDT Jeffy Tineo MD LAB [id number] SOLICITED RESULTS Final Result Performing Organization Address [facility] Co de Phone Number [facility] [address] [place] [address] * (ABNORMAL) TSAT (08/24/2024 3:00 AM EDT) Only the most recent of2 resultswithin the time period is included. Iron 46(L) 50 - 170 ug/dL [facility] Transferrin 189(L) 250 - 380 mg/dL [facility] TIBC 265 211 - 406 ug/dL [facility] Iron Saturation (TSat) 17(L) 22 - 52 % [facility] 08/24/2024 3:00 AM EDT 08/26/2024 4:51 PM EDT Jeffy Tineo MD LAB BLOOD ORDERABLES Final Re sult Performing Organization Address [facility]/ZIP Co de Phone Number [facility] [address] [place] [address] * (ABNORMAL) CBC and Differential (08/24/2024 3:00 AM EDT) Only the most recent of2 resultswithin the time period is included. DIFFERENTIAL [...] 3:00 AM EDT 08/26/2024 4:46 PM EDT us Jeffy Tineo MD LAB BLOOD ORDERABLES Final Re sult [facility] [address] [place] [address] * ALT (08/24/2024 3:00 AM EDT) Only the most recent of2 resultswithin the time period is included. Pathologist [facility] ALT (SGPT) 17 10 - 49 U/L [facility] 08/24/2024 3:00 AM EDT 08/26/2024 4:51 PM EDT us Jeffy Tineo MD LAB BLOOD ORDERABLES Final Re sult Performing Organization Address [facility] Co de Phone Number [facility] [address] [place] [address] * AST (08/24/2024 3:00 AM EDT) Only the most recent of2 resultswithin the time period is included. AST (SGOT) 17 <34 U/L [facility] 08/24/2024 3:00 AM EDT 08/26/2024 4:51 PM EDT Jeffy Tineo MD LAB BLOOD ORDERABLES Final Re sult Performing Organization Address [facility] de Phone Number [facility] [address] [place] [address] * Protein, total (08/24/2024 3:00 AM EDT) Only the most recent of2 resultswithin the time period is included. Total Protein 7.4 6.4 - 8.9 g/dL [facility] 08/24/2024 3:00 AM EDT 08/26/2024 4:51 PM EDT Jeffy Tineo MD LAB BLOOD ORDERABLES Final Re sult Performing Organization Address [facility] de Phone Number [facility] [address] [place] [address] * Alkaline phosphatase (08/24/2024 3:00 AM EDT) Only the most recent of2 resultswithin the time period is included. Alkaline Phosphatase 115 46 - 116 U/L [facility] 08/24/2024 3:00 AM EDT 08/26/2024 4:51 PM EDT Jeffy Tineo MD LAB BLOOD ORDERABLES Final Re sult Performing Organization Address [facility] Co de Phone Number [facility] [address] [place] [address] * PTH, Intact (08/24/2024 3:00 AM EDT) PTH, Intact 230 160 - 721 pg/mL [facility] Comment: Suggested (KDIGO) ESRD maintenance range is two to nine times the upper normal limit (80.1 pg/mL) for the laboratory. 08/24/2024 3:00 AM EDT 08/26/2024 4:51 PM EDT Jeffy Tineo MD LAB BLOOD ORDERABLES Final Re sult Performing Organization Address [facility] Co de Phone Number [facility] [address] [place] [address] * Magnesium (08/24/2024 3:00 AM EDT) Only the most recent of2 resultswithin the time period is included. Pathologist [facility] Magnesium 2.4 1.9 - 2.7 mg/dL [facility] 08/24/2024 3:00 AM EDT 08/26/2024 4:51 PM EDT Jeffy Tineo MD LAB BLOOD ORDERABLES Final Re sult Performing Organization Address [facility] Co de Phone Number [facility] [address] [place] [address] * (ABNORMAL) Lactate dehydrogenase (08/24/2024 3:00 AM EDT) Only the most recent of2 resultswithin the time period is included. LDH 284(H) 120 - 246 U/L [facility] 08/24/2024 3:00 AM EDT 08/26/2024 4:51 PM EDT Jeffy Tineo MD LAB BLOOD ORDERABLES Final Re sult Performing Organization Address [facility] Co de Phone Number [facility] [address] [place] [address] * (ABNORMAL) Hemoglobin A1c (08/24/2024 3:00 AM EDT) Hemoglobin A1C 7.7(H) <5.7 % [facility] Comment: Methodology: Enzymatic HbA1c (NGSP %) ?Suggested Diagnosis >6.4% ? Diabetic 5.7-6.4% ?Pre-Diabetic <5.7% ? Non-Diabetic Diabetic Glucose Control Evaluation: Therapeutic action suggested at >8.0% ADA recommends a glycemic goal of <7.0% 08/24/2024 3:00 AM EDT 08/26/2024 4:46 PM EDT Jeffy Tineo MD LAB BLOOD ORDERABLES Final Re sult Performing Organization Address [facility] de Phone Number [facility] [address] [place] [address] * (ABNORMAL) Glucose, random (08/24/2024 3:00 AM EDT) Only the most recent of2 resultswithin the time period is included. Glucose 184(H) 74 - 109 mg/dL [facility] 08/24/2024 3:00 AM EDT 08/26/2024 4:51 PM EDT Jeffy Tineo MD LAB BLOOD ORDERABLES Final Re sult Performing Organization Address [facility] de Phone Number [facility] [address] [place] [address] * (ABNORMAL) Ferritin (08/24/2024 3:00 AM EDT) Only the most recent of2 resultswithin the time period is included. Ferritin 1,351(H) 10 - 291 ng/mL [facility] 08/24/2024 3:00 AM EDT 08/26/2024 4:51 PM EDT Jeffy Tineo MD LAB BLOOD ORDERABLES Final Re sult Performing Organization Address [facility] de Phone Number [facility] [address] [place] [address] * (ABNORMAL) Creatinine, serum (08/24/2024 3:00 AM EDT) Only the most recent of2 resultswithin the time period is included. Creatinine 7.29(H) 0.55 - 1.02 mg/dL [facility] 08/24/2024 3:00 AM EDT 08/26/2024 4:51 PM EDT Jeffy Tineo MD LAB BLOOD ORDERABLES Final Re sult Performing Organization Address [facility] de Phone Number [facility] [address] [place] [address] * Bilirubin, total (08/24/2024 3:00 AM EDT) Only the most recent of2 resultswithin the time period is included. Total Bilirubin 0.5 0.3 - 1.2 mg/dL [facility] 08/24/2024 3:00 AM EDT 08/26/2024 4:51 PM EDT Jeffy Tineo MD LAB BLOOD ORDERABLES Final Re sult Performing Organization Address [facility] de Phone Number [facility] [address] [place] [address] * (ABNORMAL) Lipid panel (08/24/2024 3:00 AM [...] ORDERABLES Final Re sult Performing Organization Address [facility] de Phone Number [facility] [address] [place] [address] * (ABNORMAL) Electrolyte panel (08/24/2024 3:00 AM EDT) Only the most recent of2 resultswithin the time period is included. Sodium 137 136 - 145 mEq/L [facility] Potassium 5.4(H) 3.4 - 5.0 mEq/L [facility] Chloride 102 98 - 107 mEq/L [facility] Bicarbonate (CO2) 22 21 - 31 mEq/L [facility] Anion Gap 13 3 - 14 mEq/L [facility] 08/24/2024 3:00 AM EDT 08/26/2024 4:51 PM EDT Jeffy Tineo MD LAB BLOOD ORDERABLES Final Re sult Performing Organization Address [facility] de Phone Number [facility] [address] [place] [address] * (ABNORMAL) Phosphorus (08/08/2024 3:00 AM EDT) Phosphorus, Serum 5.4(H) 2.5 - 5.0 mg/dL [facility] 08/08/2024 3:00 AM EDT 08/09/2024 12:11 PM EDT us Jeffy Tineo MD LAB BLOOD ORDERABLES Final Re sult [facility] [address] [place] [address] from Last 3 Months [place] Care Teams Air Crew Supervisor Relationship Specialty Start Date End Date Ines Zamora MD [address] [place] [address] [facility] - General 06/04/20
--- OUTSIDE RECORDS SUMMARY | 2024-09-27 09:27 | XMS_ITS | Encounter Summary ---
Author Organization [facility] Address [address] [place] [phone] Phone Care Team Providers Care Stave Planer Tender Name Role Phone Ines Zamora MD Primary Care Provider [phone] Encounter Details Date Type Department Care Team (Late st Contact Info) Description 09/02/2024 Treatment [facility] [address] [phone] Sweetie Pandey MD [facility] [phone] End stage renal disease; Dependence [...] Dialysis Note - Sweetie Pandey MD - 09/02/2024 12:00 AM EDT BASIC NOTE Patient: Sarah Corado : 1965 Note Author: SWEETIE PANDEY MD Service Date: 09/02/2024 Telehealth encounter using audiovisual technology, performed according to state requirements. Appropriate patient consent obtained. This patient was personally seen for a basic visit as part of routine monthly dialysis care for end stage renal disease. Attending Oxygen System Tester: SWEETIE PANDEY MD [facility] Schedule: Shift: 2 ADEQUACY ASSESSMENT Kt/V, [...] by: SWEETIE PANDEY MD on 09/22/2024 at 01:31:51 AM Transcribed by: SWEETIE PANDEY MD on 09/22/2024 at 01:31:51 AM documented in this encounter Plan of Treatment Not on file documented as of this encounter Visit Diagnoses Diagnosis End stage renal disease Dependence on renal dialysis documented in this encounter Care Teams Stave Planer Tender Relationship Specialty Start Date End Date Ines Zamora MD [address] [place] [address] PCP - General 06/04/20 documented as of this encounter
--- OUTSIDE RECORDS SUMMARY | 2024-09-27 09:27 | XMS_ITS | Encounter Summary ---
Author Organization [facility] Address [address] [place] [phone] Phone Care Team Providers Care Peanut Shaker Name Role Phone Ines Zamora MD Primary Care Provider Encounter Details Date Type Department Care Team (Late st Contact Info) Description 09/19/2024 Treatment [facility] [address] [phone] Sweetie Pandey MD [facility] [phone] End stage renal disease; Dependence [...] Dialysis Note - Sweetie Pandey MD - 09/19/2024 12:00 AM EDT BASIC NOTE Patient: Sarah Corado : 1965 Note Author: SWEETIE PANDEY MD Service Date: 09/19/2024 This patient was personally seen for a basic visit as part of routine monthly dialysis care for end stage renal disease. Attending Machine Overhauler: SWEETIE PANDEY MD Dialysis Location: [facility] Schedule: Shift: 2 ADEQUACY [...] by: SWEETIE PANDEY MD on 09/22/2024 at 01:31:30 AM Transcribed by: SWEETIE PANDEY MD on 09/22/2024 at 01:31:30 AM documented in this encounter Plan of Treatment Not on file documented as of this encounter Visit Diagnoses Diagnosis End stage renal disease Dependence on renal dialysis documented in this encounter Care Teams Peanut Shaker Relationship Specialty Start Date End Date Ines Zamora MD [address] [place] [address] PCP - General 06/04/20 documented as of this encounter
--- OUTSIDE RECORDS SUMMARY | 2024-09-27 09:27 | XMS_ITS | Data Portability ---
Author Organization [place] - [facility], [facility] Address [address] [place] [address] [id number] [place] [address] Assessment No assessment recorded. Plan of Treatment Reminders Order Date Submit Date Provider Last Modified By Organization Details Last Modified Time Details Appointments None recorded. Lab pap, IG + HPV 2016 017 Formerly [facility], [address] [place], [address] 7 07:56:44 Referral None recorded. Procedures None recorded. Surgeries None recorded. Imaging MAMMO, diagnostic, digital, unilateral 2016 017 hbender Not available 7 08:23:09 Medication Orders None recorded. Patient TargetsNo targets recorded. Patient Instructions Encounter Date Encounter Id Patient Instructions Last Modified By Organization Details Last Modified Time 11/04/2016 [id number] Discussed new pap smear guidelines, pt agreeable [...] types from this sourc e. Not Available [facility] [address] [place], [place], 11/06/2016 07:56:44 11/05/19 17 11/06/2016 pap, [...] Imagi ng nila Alexis other [facility] d. The Pap test is a scree key test with an inher ent false negat johnny rate. [facility] , [address] [place], [place] CLIA [id number] CL-PO [id number] 7. Not Available [facility] [address] [place], [place], 11/06/2016 07:56:44 Result Notes None recorded. Problems Name Problem SNOMED Code Status Onset Date Resolution Date Notes Provider Name and Address Organization Details Recorded Time Diabetes mellitus 84084105 Active 2016 Juliana arizmendi, [place] - [facility] 7 15:55:41 Chronic endometritis 02557233 Active 2016 Juliana arizmendi, [place] - [facility] 15:55:49 Problem Notes None recorded. Procedures Surgical History Date Name Laterality Status Provider Name and Address Organization Details Recorded Time 11/04/2016 [id number] completed PAVAN BERNABE, [address] [facility], [address] [facility], [place], [address], [facility] 11/04/2016 17:17:09 11/04/2016 [id number] completed PAVAN KIDD DO [address] [facility], [address] [facility], [place], [address], [facility] 11/04/2016 17:17:05 05/25/1996 Other completed Juliana Gonzales [facility] 11/04/2016 16:01:20 05/25/1996 Other completed Juliana Gonzales [facility] 11/04/2016 16:03:12 Imaging Results None recorded. [...] Updated DateTime 11/04/2016 160.02 cm 40.4 kg/m2 129309.0 6 g 132 mm[Hg] 60 mm[Hg] Juliana Gonzales [facility] 7 15:53:30 Social History Question Answer Notes LastModified by Organizat ion Details LastModified Time Tobacco Smoking Status Never Smoker Julianamaribel Gonzales null, [facility] 11/04/2016 15:58:24 What Is Your Level [...] SNOMED-CT Code Diagnosis ICD10 Code Diagnosis Note [id number] PAVAN KIDD DO SHO1 4 [address] DORADO,[facility] [address] [place] [address] 11/04/2016 15:42:27 11/04/2016 17:00:22 Gynecologic examination 53960555 Z01.411 51 yo annual exam Mass of left breast 1224 868255 [id number] N63 Health Concerns Section Related Observation LastModified by Organization Detai ls LastModified Time None Recorded Concern Status LastModified by Organization Details LastModified Time None Recorded Advance Directives Directive None Recorded Payers Encounter Date Sequence Insurance Name Policy Number Policy [place] Covered Member ID [place] Member ID Guarantor Name 11/04/2016 1 [place] Sarah Madden [id number] Sarah Madden Notes Date Note Type Note Provider Name and Address Organization Details Recorded Time 11/04/2016 text/html [facility] Annual GYNReported bypatient.Menstrua l cycle:Perimenopaus al(LMP 06/2015) Vagina:Normal vaginal discharge Breast:No nipple discharge;Breast Pain Bilateral;Breast lump(left inner breast-getting larger) Current Contraception:Bandera gamous relationship Sexual complaints:No pain during intercourse Preventive measures:Encourage self breast examination; Encourage regular exerciseNotes:51 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 Pt is Danish speaking only-wants to interpret, declined professional systems software designer. last Head Of Measurement & Insights exam was about 5 yrs ago in [place]. c/o B/L breast tenderness for past 5 yrs with more recent? ? ? increase in left breast balls. PAVAN KIDD DO [address], [place], [address], [place] [facility] 11/04/2016 17:24:08 OBGyn Episode No OBEpisode recorded.
== END 2024-09-27 08:54 | disposition home or self-care (01) ==
LOC: HO.NEURO 08:53
PROVIDERS: PCP Internal Medicine; Visit Provider Internal Medicine
DX: M79.641 Pain in right hand (principal)
CPT/HCPCS: 95886; 95909

== ENCOUNTER 2025-01-24 17:55 | Outpatient (REF) | payer MEDICAID, SELFPAY ==
--- OUTSIDE RECORDS SUMMARY | 2025-01-19 13:30 | XMS_ITS | Encounter Summary ---
Author Organization [employer] Address [address] [place] [address] [address] [place] [address] Care Team Providers Care Platemaker Name Role Phone Faith Mason MD Primary Care Provide r Reason for Visit * Reason Comments Extraction Tooth #16 Encounter Details Date Type Department Care Team (Late st Contact Info) Description 01/19/2025 1:30 PM EDT Office Visit [facility] ADULT D[facility]AL [address] [place], [place] [phone] [place] DDS [address] [place], [place] [phone] Severe dental caries (Primary Dx); Pain, dental Social History Tobacco Use Types Packs/Day Years [...] housing situation today? I have alli marquez 01/16/[address] you li ve. Do you have problems with any of the following? None of the above 01/16/2025 Food Insecurity Answer Date Recorded Within the past 12 months, y ou worried that your food would run out before you got money to buy more: Never True 01/16/2025 Within the past 12 months,th e food you bought just didn't last and you didn't have enough money to get more: Never True Transportation Answer Date Recorded In the past 12 months, has l ack of transportation kept you from medical appts, meetings, work or from getting things needed for daily living? No 01/16/2025 Utilities Answer Date Recorded In the past 12 months, has t he electric, gas, oil or water company threatened to shut off services in your home? No 01/16/2025 Depression Answer Date Recorded Patient Health Questionnaire-2 Score 3 11/24/2023 Internet Access Answer Date Recorded Internet Access Q1 Yes 01/16/2025 Internet Access Q2 Not on file 01/16/2025 Comments No Sex and Gender Information Value Date Recorded Sex Assigned at Female 03/24/2022 10:18 AM EDT Legal Sex Female 10:18 AM EDT Gender Identity Female 03/24/2022 10:18 AM EDT Sexual Orientation Choose not to disclose 2021 10:18 AM EDT documented as of this encounter Last Filed Vital Signs Vital Sign Reading Time Taken Comments Blood Pressure 150/50 01/19/2025 1:15 PM EDT Pulse 72 01/19/2025 1:15 PM EDT Temperature - - Respiratory Rate - - Oxygen Saturation - - Inhaled Oxygen Concentration - - Weight - - Height - - Body Mass Index - - documented in this encounter Progress Notes * [place], MILLY - 01/19/2025 1:30 PM EDT Patient ID: Sarah Corado is a 59 y.o. female. Time Out: No data recorded Location: [facility] Tooth: Maxilla and #16 Procedure: Extraction Verified the above with patient, employment assistant, and provider. Confirmed via patient's chart, intraorally and by radiographs. Journalism Professor: not applicable Chief Complaint Patient presents with Extraction Tooth #16 Medical Hx: Vitals: Blood pressure (!) 150/50, pulse 72. Medical History[1] Medications: Encounter Medications[2] Consent Obtained: The risks, benefits, indications, potential complications, and alternatives were explained to the patient and informed consent was obtained with good understanding. Treatment Provided: Dental procedures in this visit D7210 - EXTRACTION, ERUPTED TOOTH REQ REMOVAL OF BONE AND/OR SECTIONING OF TOOTH 16 D9450 - CASE PRESENTATION, DETAILED AND EXTENSIVE TREATMENT PLANNING Diagnosis: Severe caries pain Topical: 20% Benzocaine Anesthesia: 2% Lidocaine (Xylocaine) w/ 1:100,000 epinephrine Number of Cartridges: 1 Injection Type: Buccal infiltration, Palatal infiltration, and Intrapapillary injection Confirmed profound anesthesia. Pharyngeal curtain and bite block placed. Removed tooth with elevators and forceps. Apices intact. Surgical Extraction: Yes, #16 Socket curetted & irrigated with sterile water. Compressed alveolar bone. Sutures: None Needed All adjacent teeth intact. Hemostasis achieved. Complications: None. Pt tolerated procedure well. OTC analgesics Written and verbal post-op instructions given. Patient discharged in stable condition; ambulatory, alert, and oriented. NV: F/U as needed Cryptological Technician: Melisa Piña Dentist: [facility] DDS [1] Past Medical History: Diagnosis Date Asthma Depression Diabetes mellitus ([facility]) Dialysis patient ([facility]) Disease of thyroid gland Hypertension Kidney failure [2] Outpatient Encounter Medications as of 01/19/2025 Medication Sig Dispense Refill Acetaminophen Extra Strength 500 MG tablet TAKE 2 TABLETS BY MOUTH EVERY 8 HOURS NEEDED FOR MILDPAIN 30 tablet 2 Alcohol Swabs (Alcohol Prep) 70 % pads USE THREE TIMES DAILY DIRECTED 100 each 11 amLODIPine (Norvasc) 10 MG tablet TAKE 1 TABLET BY MOUTH EVERY MORNING 90 tablet 1 amoxicillin (Amoxil) 500 MG capsule Take 4 tabs (2 grams) 1 hour prior to dental procedure 12 capsule 3 apixaban (Eliquis) 5 MG tablet TAKE 1 TABLET BY MOUTH TWICE DAILY IN THE MORNING AND IN THE [id number] tablet 3 Aspirin Low Dose 81 MG EC tablet TAKE 1 TABLET BY MOUTH EVERYDAY AT NOON 90 tablet 3 atorvastatin (Lipitor) 40 MG tablet TAKE 1 TABLET BY MOUTH EVERYDAY AT NOON 90 tablet 1 Blood Glucose Monitoring Suppl (SharypicStyle [place] Lite) w/Device kit Use to test blood sugar 3 times daily 1 kit 0 Blood Pressure Monitoring (Blood Pressure Cuff) misc Use to take Blood Pressure daily brimonidine (AlphaGAN) 0.2 % ophthalmic solution Administer 1 drop into the left eye 3 times daily. Continuous Glucose Art Objects Supervisor (SharypicStyle Tika 3 [place]) device Use as directed Continuous Glucose Sensor (FreeStyle Tika 3 Sensor) misc USE DIRECTED TO TEST BLOOD SUGAR CHANGE EVERY 14 DAYS D3 Super Strength 50 MCG (2000 UT) capsule TAKE 1 CAPSULE BY MOUTH EVERY MORNING 90 capsule 1 docusate sodium (Colace) 100 MG capsule TAKE 1 CAPSULE BY MOUTH TWICE DAILY 180 capsule 0 Fiber-Lax 625 MG tablet TAKE 1 TABLET BY MOUTH EVERY MORNING 90 tablet 3 fluconazole (Diflucan) 150 MG tablet Take one tablet then after 72 hours take another tablet 1 tablet 0 FREESTYLE LITE test strip TEST BLOOD SUGAR FOUR TIMES DAILY DIRECTED gabapentin (Neurontin) 300 MG capsule TAKE 1 CAPSULE BY MOUTH AT BEDTIME 30 capsule 2 guaiFENesin 200 MG/10ML liquid Take 10 mL by mouth every 6 (six) hours if needed (take for cough ifneeded). 236 mL 0 HumaLOG KWIKPEN 100 UNIT/ML injection INJECT 8-14 UNITS SUBCUTANEOUSLY THREE TIMES DAILY BEFORE MEALS PER SLIDING SCALE (BS 80-100: 8 units; 101-200: 10 units; 201-300: 12 units; >301 14 units) 15mL 11 hydrALAZINE (Apresoline) 50 MG tablet Take 1 tablet (50 mg) by mouth 3 times daily. 270 tablet 1 insulin glargine (Toujeo Max SoloStar) 300 UNIT/ML [...] TAKE 1 TABLET BY MOUTH AT BEDTIME FOR SLEEP 90 tablet 1 metoprolol tartrate (Lopressor) 25 MG tablet TAKE 1/2 TABLET BY MOUTH TWICE DAILY IN THE MORNING AND EVENING 30 tablet 3 nitroglycerin (Nitrostat) 0.[address] 1 tablet by sublingual route at the first sign of an attack; no more than 3 tabs are recommended within a 15 minute period. Novofine Pen Needle 32G X 6 MM misc USE FOUR TIMES DAILY DIRECTED nystatin (Mycostatin) cream Apply twice daily as needed between skin folds for fungal infection 30 g 1 prednisoLONE acetate (Pred-Forte) 1 % ophthalmic suspension Administer 1 drop into the left eye 3 times daily. sevelamer carbonate (Renvela) 800 MG tablet TAKE 1 TABLET BY MOUTH THREE TIMES DAILY IN THE MORNING, AT NOON, AND IN THE EVENING WITH FOOD (PARA FOSFATO ALTO) sodium chloride ([place]) 0.65 % nasal spray Administer 1 spray into each nostril if needed for congestion. 30 mL 12 TRUEplus Lancets 33G misc TEST BLOOD SUGAR THREE TIMES DAILY 100 each 11 omeprazole (PriLOSEC) [address] capsule Take 1 capsule (20 mg) by mouth before breakfast. Do not crush or chew. 30 capsule 11 [DISCONTINUED] atorvastatin (Lipitor) 40 MG tablet TAKE 1 TABLET BY MOUTH EVERYDAY AT NOON 90 tablet 1 [DISCONTINUED] D3 Super Strength 50 MCG (1999 UT) capsule TAKE 1 CAPSULE BY MOUTH EVERY MORNING 90 capsule 1 No facility-administered encounter medications on file as of 01/19/2025. documented in this encounter Plan of Treatment Not on file documented as of this encounter Procedures Procedure Name Priority Date/Time Associated Diagnosis Comments 16 EXTRACTION, ERUPTED TOOTH REQ REMOVAL OF BONE AND/OR SECTIONING OF TOOTH Routine 01/19/2025 1:30 PM EDT CASE PRESENTATION, DETAILED AND EXTENSIVE TREATMENT PLANNING Routine 01/19/2025 1:30 PM EDT documented in this encounter Visit Diagnoses Diagnosis Severe dental caries- Primary Pain, dental documented in this encounter Additional Health Concerns Assessment Noted Time PHQ-9 Depression Total Score: 6 11/24/19 24 2:35 PM EDT documented as of this encounter Care Teams Platemaker Relationship Specialty Start Date End Date Faith Mason MD [address] [place] [id number] PCP - General Family Medicine 04/12/19 Linda Peralta Fraud AnalystGolf Course Keeper 06/08/24 documented as of this encounter
--- OUTSIDE RECORDS SUMMARY | 2025-01-24 13:00 | XMS_ITS | Encounter Summary ---
Author Organization [employer] Address [address] [place] [address] 7 [place] [address] Care Team Providers Care Tool Supervisor Name Role Phone Faith Mason MD Primary Care Provide r Reason for Referral * Consultation (Routine) - Pending Review Specialty Diagnoses / Procedures Referred By Juan Carlos aiken Referred To Contact Obstetrics and Gynecology Diagnoses Pelvic pain Postmenopausal bleeding Faith Mason MD [address] [place] [address] Phone: tel: fax: Referral ID Status Reason Start Date Expiration Date Visits Requested Visits Authorized [id number] Pending Review Specialty Services Required 01/24/2025 01/24/2026 1 1 * Consultation (Routine) - Pending Review Specialty Diagnoses / Procedures Referred By Juan Carlos aiken Referred To Contact Podiatry Diagnoses Great toe pain, right Diabetic polyneuropathy associated with type 2 diabetes mellitus ([facility]) Faith Mason MD [address] [place] [address] Phone: tel: fax: Referral ID Status Reason Start Date Expiration Date Visits Requested Visits Authorized [id number] Pending Review Specialty Services Required 01/24/2025 01/24/2026 1 1 Encounter Details Date Type Department Care Team (Latest Contact Info) Description 01/24/2025 1:00 PM EDT Office Visit [facility] [address] [place] [address] Faith Mason MD [address] [place] [address] Mouth bleeding (Primary Dx); Vaginal discharge; Pelvic pain; Chronic frontal sinusitis; Great toe pain, right; Diabetic polyneuropathy associated with type 2 diabetes mellitus (CMS/HCC); Acute otitis externa, unspecified laterality, unspecified type; Seborrheic dermatitis; Postmenopausal bleeding Social History Tobacco Use Types Packs/Day Years [...] housing situation today? I have alli jimmy 01/16/[address] you li [...] Sign Reading Time Taken Comments Blood Pressure 140/82 01/24/2025 1:18 PM EDT Pulse 66 01/24/2025 1:18 PM EDT Temperature 35.6 C (96 F) 01/24/2025 1:18 PM EDT Respiratory Rate 18 01/24/2025 1:18 PM EDT Oxygen Saturation 98% 01/24/2025 1:18 PM EDT Inhaled Oxygen Concentration - - Weight 99.2 kg (218 lb 12.8 oz) 01/24/2025 1:18 PM EDT Height 160 cm (5' 3 ) 01/24/2025 1:18 PM EDT Body Mass Index 38.76 01/24/2025 1:18 PM EDT documented in this encounter Progress Notes * Faith No MD - 01/24/2025 1:00 PM EDT SUBJECTIVE: Sarah Corado is a 59 y.o. year old female who presents for Chronic Disease Management . Acute Concerns: Patient had a dental extraction since then she has being bleeding form her gum Patient reports nostril bleeding, she reports yellow nasal discharge Patient reports left ear pain and pressure Patient reports pelvic pain and vaginal discharge she would like to be tested also for STIs Patient also reports right great toe pain and thickening of the nail and dark discoloration Social History Social History Narrative Not on file Problem List[1] Abnormal gait End stage renal failure on dialysis ([facility]) Coronary artery disease involving [place] coronary artery of [place] heart with unstable angina pectoris ([facility]) Asthma Atrial flutter ([facility]) Calculus of kidney Chronic diastolic heart failure ([facility]) Chronic low back pain Dyspnea on exertion Essential hypertension Increased frequency of urination Postmenopausal bleeding Primary osteoarthritis of both knees Recurrent major depression in partial remission ([facility]) Atypical chest pain Urinary tract infectious disease Type 2 diabetes mellitus with hyperglycemia, with long-term current use of insulin ([facility]) Allergies Chronic pain of left ankle Left foot pain Right hip pain Severe dental caries Vaginal discharge Encounter for screening mammogram for malignant neoplasm of breast Colon cancer screening Chronic endometritis Diabetic polyneuropathy associated with type 2 diabetes mellitus ([facility]) Polyarthralgia GERD (gastroesophageal reflux disease) Thyroid nodule Fibroma Dermatitis of face Screening examination for STI Other constipation Left hip pain Chronic bilateral low back pain Preop examination Chronic frontal sinusitis Depression with anxiety Chronic nonintractable headache Pelvic pain Right arm pain Internal nasal lesion Acute CHF ([facility]) Acute hyperkalemia AF (atrial fibrillation) ([facility]) Anemia of chronic kidney failure Carpal tunnel syndrome on both sides Cubital tunnel syndrome on left Cubital tunnel syndrome on right Degenerative joint disease (DJD) of hip Elevated troponin Hemorrhage of arteriovenous fistula ([facility]) Hidradenitis suppurativa History of cardiac catheterization HLD (hyperlipidemia) Lumbar facet joint pain Moderate mitral regurgitation Non-toxic multinodular goiter NSTEMI (non-ST elevated myocardial infarction) ([facility]) AMARJIT on CPAP Pulmonary HTN ([facility]) Obesity due to excess calories Severe obesity (BMI 35.0-39.9) with comorbidity ([facility]) Unstable angina ([facility]) Chest pain CAD (coronary artery disease) Chronic kidney disease with end stage renal failure on dialysis ([facility]) Acid reflux Pain in both feet Encounter for screening colonoscopy Preop cardiovascular exam Uncontrolled type 2 diabetes mellitus with hyperglycemia, with long-term current use of insulin ([facility]) 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 ([facility]) Great toe pain, right Acute otitis externa Seborrheic dermatitis Family History[2] Review of Systems Constitutional: Positive for fatigue. Negative for activity change, appetite change, chills, diaphoresis, fever and unexpected weight change. HENT: Positive for congestion, dental problem, ear pain, nosebleeds, postnasal drip, rhinorrhea, sinus pressure and sinus pain. Negative for drooling, ear discharge, facial swelling, hearing loss, mouth sores, sneezing, sore throat, tinnitus, trouble swallowing and voice change. Respiratory: Negative. Cardiovascular: Negative. Genitourinary: Positive for pelvic pain and vaginal discharge. Negative for difficulty urinating, dyspareunia, dysuria, enuresis, flank pain, frequency, genital sores and hematuria. OBJECTIVE: Vitals: 01/24/25 1318 BP: (!) 140/82 BP Location: Right arm Patient Position: Sitting BP Cuff Size: Adult Pulse: 66 Resp: 18 Temp: 96 ??F (35.6 ??C) TempSrc: Temporal SpO2: 98% Weight: 218 lb 12.8 oz (99.2 kg) Height: 5' 3 (1.6 m) Physical Exam Follow Up: No follow-ups on file. Medications Ordered Prior to Encounter[3] Problem List Items Addressed This Visit Vaginal discharge BV and CG ordered today patient will be contacted with results Relevant Orders HIV-1/2 Antigen and Antibodies, Fourth Generation, with Reflexes RPR (Monitor) with Reflex to Titer Hepatitis A,B,C Profile Bacterial Vaginosis Chlamydia/N. Gonorrhoeae RNA, TMA, Vaginal Pelvic pain I will refer patient to gynecology Relevant Orders Referral to Obstetrics / Gynecology Chronic frontal sinusitis Relevant Medications amoxicillin-clavulanate (Augmentin) 875-125 MG tablet Great toe pain, right Relevant Orders Referral to Podiatry Diabetic polyneuropathy associated with type 2 diabetes mellitus ([facility]) Glucose is high as well as her A1c I advised to follow-up with endocrinology Relevant Orders POCT Glucose (Completed) POCT HGB A1C (Completed) Referral to Podiatry Acute otitis externa Relevant Medications amoxicillin-clavulanate (Augmentin) 875-125 MG tablet Seborrheic dermatitis Relevant Medications ketoconazole (NIZOral) 2 % shampoo (Start on 01/26/2025) Postmenopausal bleeding She is currently not bleeding but reports that she did have an episode and lasted for 3 months and then stop, I want her to be seen by gynecology referral is in Relevant Orders Referral to Obstetrics / Gynecology Mouth bleeding - Primary Patient had a dental extraction on January 19, 2025 since then she has has persistent bleeding around her gum, I we will hold her Eliquis for 2 days and then she was instructed to monitor for persistent bleeding and then reinitiate it again [1] Patient Active Problem List Diagnosis Abnormal gait End stage renal failure on dialysis ([facility]) Coronary artery disease involving [place] coronary artery of [place] heart with unstable angina pectoris ([facility]) Asthma Atrial flutter ([facility]) Calculus of kidney Chronic diastolic heart failure ([facility]) Chronic low back pain Dyspnea on exertion Essential hypertension Increased frequency of urination Postmenopausal bleeding Primary osteoarthritis of both knees Recurrent major depression in partial remission ([facility]) Atypical chest pain Urinary tract infectious disease Type 2 diabetes mellitus with hyperglycemia, with long-term current use of insulin ([facility]) Allergies Chronic pain of left ankle Left foot pain Right hip pain Severe dental caries Vaginal discharge Encounter for screening mammogram for malignant neoplasm of breast Colon cancer screening Chronic endometritis Diabetic polyneuropathy associated with type 2 diabetes mellitus ([facility]) Polyarthralgia GERD (gastroesophageal reflux disease) Thyroid nodule Fibroma Dermatitis of face Screening examination for STI Other constipation Left hip pain Chronic bilateral low back pain Preop examination Chronic frontal sinusitis Depression with anxiety Chronic nonintractable headache Pelvic pain Right arm pain Internal nasal lesion Acute CHF ([facility]) Acute hyperkalemia AF (atrial fibrillation) ([facility]) Anemia of chronic kidney failure Carpal tunnel syndrome on both sides Cubital tunnel syndrome on left Cubital tunnel syndrome on right Degenerative joint disease (DJD) of hip Elevated troponin Hemorrhage of arteriovenous fistula ([facility]) Hidradenitis suppurativa History of cardiac catheterization HLD (hyperlipidemia) Lumbar facet joint pain Moderate mitral regurgitation Non-toxic multinodular goiter NSTEMI (non-ST elevated myocardial infarction) ([facility]) AMARJIT on CPAP Pulmonary HTN ([facility]) Obesity due to excess calories Severe obesity (BMI 35.0-39.9) with comorbidity ([facility]) Unstable angina ([facility]) Chest pain CAD (coronary artery disease) Chronic kidney disease with end stage renal failure on dialysis ([facility]) Acid reflux Pain in both feet Encounter for screening colonoscopy Preop cardiovascular exam Uncontrolled type 2 diabetes mellitus with hyperglycemia, with long-term current use of insulin ([facility]) 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 ([facility]) Great toe pain, right Acute otitis externa Seborrheic dermatitis Mouth bleeding [2] No family history on file. [3] Current Outpatient Medications on File Prior to Visit Medication Sig Dispense Refill Acetaminophen Extra Strength [...] DAILY IN THE MORNING AND IN THE [id number] tablet 3 atorvastatin (Lipitor) 40 MG tablet TAKE 1 TABLET BY MOUTH EVERYDAY AT NOON 90 tablet 1 Blood Glucose Monitoring Suppl (TypeformStyle [place] Lite) w/Device kit Use to test blood sugar 3 times daily 1 kit 0 Blood Pressure Monitoring (Blood Pressure Cuff) misc Use to take Blood Pressure daily brimonidine (AlphaGAN) 0.2 % ophthalmic solution Administer 1 drop into the left eye 3 times daily. Continuous Glucose Road Supervisor (FreeStyle Tika 3 [place]) device Use as directed Continuous Glucose Sensor [...] not crush or chew. 30 capsule 11 prednisoLONE acetate (Pred-Forte) 1 % ophthalmic suspension Administer 1 drop into the left eye 3 times daily. sevelamer carbonate (Renvela) 800 MG tablet TAKE 1 TABLET BY MOUTH THREE TIMES DAILY IN THE MORNING, AT NOON, AND IN THE EVENING WITH FOOD (PARA FOSFATO ALTO) sodium chloride ([place]) 0.65 % nasal spray Administer 1 spray into each nostril if needed for congestion. 30 mL 12 TRUEplus Lancets 33G misc TEST BLOOD SUGAR THREE TIMES DAILY 100 each 11 [DISCONTINUED] Aspirin Low Dose 81 MG EC tablet TAKE 1 TABLET BY MOUTH EVERYDAY AT NOON 90 tablet 3 No current facility-administered medications on file prior to visit. documented in this encounter Miscellaneous Notes * Assessment & Plan Note - Faith No MD - 01/24/2025 2:51 PM EDT Associated Problem(s): Mouth bleeding Patient had a dental extraction on January 19, 2025 since then she has has persistent bleeding around her gum, I we will hold her Eliquis for 2 days and then she was instructed to monitor for persistent bleeding and then reinitiate it again * Assessment & Plan Note - Faith No MD - 01/24/2025 2:49 PM EDT Associated Problem(s): Diabetic polyneuropathy associated with type 2 diabetes mellitus ([facility]) Glucose is high as well as her A1c I advised to follow-up with endocrinology * Assessment & Plan Note - Faith No MD - 01/24/2025 2:48 PM EDT Associated Problem(s): Vaginal discharge BV and CG ordered today patient will be contacted with results * Assessment & Plan Note - Faith No MD - 01/24/2025 2:48 PM EDT Associated Problem(s): Postmenopausal bleeding She is currently not bleeding but reports that she did have an episode and lasted for 3 months and then stop, I want her to be seen by gynecology referral is in * Assessment & Plan Note - Faith No MD - 01/24/2025 2:48 PM EDT Associated Problem(s): Pelvic pain I will refer patient to gynecology documented in this encounter Plan of Treatment Scheduled Orders Name Type Priority Associated Diagnoses Orde r Schedule HIV-1/2 Antigen and Antibodies, Fourth Generation, with Reflexes Lab Routine Vaginal discharge Expected: 01/24/2025 (Approximate), Expires: 01/24/2026 RPR (Monitor) with Reflex to Titer Lab Routine Vaginal discharge Expected: 01/24/2025, Expires: 01/24/2026 Hepatitis A,B,C Profile Lab Routine Vaginal discharge Expected: 01/24/2025, Expires: 01/24/2026 Bacterial Vaginosis Microbiology Routine Vaginal discharge Ordered: 01/24/2025 Chlamydia/N. Gonorrhoeae RNA, TMA, Vaginal Microbiology Routine Vaginal discharge Ordered: 01/24/2025 Scheduled Referrals Name Type Priority Associated Diagnoses Orde r Schedule Referral to Podiatry Outpatient Referral Routine Great toe pain, right Diabetic polyneuropathy associated with type 2 diabetes mellitus ([facility]) Expected: 01/24/2025 (Approximate), Expires: 01/24/2026 Referral to Obstetrics / Gynecology Outpatient Referral Routine Pelvic pain Postmenopausal bleeding Expected: 01/24/2025 (Approximate), Expires: 01/24/2026 documented as of this encounter Procedures Procedure Name Priority Date/Time Associated Diagnosis Comments POCT GLYCATED HEMOGLOBIN, TOTAL Routine 01/24/2025 1:52 PM EDT Diabetic polyneuropathy associated with type 2 diabetes mellitus ([facility]) POCT GLUCOSE Routine 01/24/2025 1:51 PM EDT Diabetic polyneuropathy associated with type 2 diabetes mellitus ([facility]) documented in this encounter Results * (ABNORMAL) POCT HGB A1C (01/24/2025 1:52 PM EDT) Pathologist [facility] Hemoglobin A1C 9.7(A) 4.0 - 5.7 % QC Media Lot # [id number] Lot# Expiration Date 41,627 Blood 01/24/2025 1:52 PM EDT Faith No MD POINT OF CARE TEST EN TER/EDIT ORDERABLES Final Result * (ABNORMAL) POCT Glucose (01/24/2025 1:51 PM EDT) Pathologist [facility] Glucose Blood, POC 351(A) 60 - 200 mg/dL QC Media Lot # [id number] Lot# Expiration Date 22,726 Blood Capillary blood specimen / Unknown 01/24/2025 1:51 PM EDT Faith No MD POINT OF CARE TEST EN TER/EDIT ORDERABLES Final Result documented in this encounter Visit Diagnoses Diagnosis Mouth bleeding- Primary Other and unspecified diseases of the oral soft tissues Vaginal discharge Leukorrhea, not specified as infective Pelvic pain Chronic frontal sinusitis Great toe pain, right Diabetic polyneuropathy associated with type 2 diabetes mellitus ([facility]) Acute otitis externa, unspecified laterality, unspecified type Seborrheic dermatitis Unspecified seborrheic dermatitis Postmenopausal bleeding documented in this encounter Additional Health Concerns Assessment Noted Time PHQ-9 Depression Total Score: 6 11/24/19 24 2:35 PM EDT documented as of this encounter Care Teams Tool Supervisor Relationship Specialty Start Date End Date Faith Mason MD [address] [place] [id number] PCP - General Family Medicine 04/12/19 Linda Peralta Rod Cup FillerPorter Luggage 06/08/24 documented as of this encounter
--- OUTSIDE RECORDS SUMMARY | 2025-01-24 17:58 | XMS_ITS | Encounter Summary ---
Author Organization [employer] Address [address] [facility] [address] [place] [address] Care Team Providers Care Analytical Research Program Manager Name Role Phone Faith Mason MD Primary Care Provide r Encounter Details Date Type Department Care Team ([facility] st Contact Info) Description 08/05/2024 Telephone [facility] [address] [place], [place] [phone] Faith Mason MD [address] [place], [place] [phone] Social History Tobacco Use Types Packs/Day Years [...] documented as of this encounter Care Teams Analytical Research Program Manager Relationship Specialty Start Date End Date Faith Mason MD [address] [place] [address] PCP - General Family Medicine 04/12/19 Linda Peralta Manager Retail SalesBottling Attendant 06/08/24 documented as of this encounter
--- OUTSIDE RECORDS SUMMARY | 2025-01-24 17:58 | XMS_ITS | Encounter Summary ---
Author Organization [employer] Address [address] [facility] [address]t [place] [address] Care Team Providers Care Show Worker Name Role Phone Faith Mason MD Primary Care Provide r Encounter Details Date Type Department Care Team ([facility] st Contact Info) Description 08/05/2024 Telephone [facility] [address] [place], [place] [phone] Faith Mason MD [address] [place], [place] [phone] Social History Tobacco Use Types Packs/Day Years [...] documented as of this encounter Care Teams Show Worker Relationship Specialty Start Date End Date Faith Mason MD [address] [place] [address] PCP - General Family Medicine 04/12/19 Linda Peralta Stave HewerGround Instructor Advanced 06/08/24 documented as of this encounter
--- OUTSIDE RECORDS SUMMARY | 2025-01-24 17:58 | XMS_ITS | Encounter Summary ---
Author Organization [employer] Address [address] [facility] [address] [place] [address] Care Team Providers Care Music Composition Teacher Name Role Phone Faith Mason MD Primary Care Provide r Reason for Visit * Reason Onset Date Comments Durable Medical Equipment 01/10/2025 Encounter Details Date Type Department Care Team (Late st Contact Info) Description 01/10/2025 Telephone [facility] [address] [place], [place] [phone] Faith Mason MD [address] [place], [place] [phone] Durable Medical Equipment Social History Tobacco Use [...] encounter Miscellaneous Notes * Telephone Encounter - Keila Jang - 01/20/2025 3:39 PM EDT [employer] must be requested directly to insurance seeing that this item has a strict eligibility criteria: ei: proof of ownership of home, letter of approval from [facility] if renting and medical review of home. No callback number was left. * Telephone Encounter - Azael Barclay - 01/10/2025 3:54 PM EDT TC with [facility] with pt requesting a Stair Lift. prefers for us to follow up with pt directly . documented in this encounter Plan of Treatment Not on file documented as of this encounter Visit Diagnoses Not on filedocumented in this encounter Additional Health Concerns Assessment Noted Time PHQ-9 Depression Total Score: 6 11/24/19 24 2:35 PM EDT documented as of this encounter Care Teams Music Composition Teacher Relationship Specialty Start Date End Date Faith Mason MD [address] [place] [address] PCP - General Family Medicine 04/12/19 Linda Peralta Portable Feed Mill OperatorFreelance Displayer 06/08/24 documented as of this encounter
--- OUTSIDE RECORDS SUMMARY | 2025-01-24 17:58 | XMS_ITS | Encounter Summary ---
Author Organization [employer] Address [address] [facility] [address] [place] [address] Care Team Providers Care Police Lieutenant Patrol Name Role Phone Faith Mason MD Primary Care Provide r Encounter Details Date Type Department Care Team (Latest Contact Info) Description 01/24/2025 Travel Social History Tobacco Use Types Packs/Day Years Used Date Smoking Tobacco: Never Passive Smoke Exposure: Never Smokeless Tobacco: Never Alcohol Use Standard Drinks/Week Comments Never 0 (1 standard drink = 0.6 oz pur e alcohol) Alcohol Answer Date Recorded Frequency of Alcohol Consumption Not on file 12/24/2023 Average Number of Drinks Not on file 024 Frequency of Binge Drinking Not on file 0805/2023 Score 0 12/24/2023 Depression Answer Date Recorded [...] documented as of this encounter Care Teams Police Lieutenant Patrol Relationship Specialty Start Date End Date Faith Mason MD [address] [place] [id number] PCP - General Family Medicine 04/12/19 Linda Peralta Raw Stock Drier TenderEcho Tech 06/08/24 documented as of this encounter
--- OUTSIDE RECORDS SUMMARY | 2025-01-24 17:58 | XMS_ITS | Encounter Summary ---
Author Organization [employer] Address [address] [facility] [address] [place] [address] Care Team Providers Care Marking Stitcher Name Role Phone Faith Mason MD Primary Care Provide r Encounter Details Date Type Department Care Team ([facility] st Contact Info) Description 03/08/2024 Orders Only [facility] MED[facility]INE [address] [place], [place] [phone] Faith Mason MD [address] [place], [place] [phone] Social History Tobacco Use Types Packs/Day Years [...] documented as of this encounter Care Teams Marking Stitcher Relationship Specialty Start Date End Date Faith Mason MD [address] [place] [address] PCP - General Family Medicine 04/12/19 Linda Peralta Meat Sales And Storage ManagerBioinformatics Research Technician 06/08/24 documented as of this encounter
--- OUTSIDE RECORDS SUMMARY | 2025-01-24 17:59 | XMS_ITS | Encounter Summary ---
Author Organization [employer] Address [address] [facility] [address] [place] [address] Care Team Providers Care Golf Course Laborer Name Role Phone Faith Mason MD Primary Care Provide r Reason for Visit * Reason Comments Med Refill Encounter Details Date Type Department Care Team ([facility] st Contact Info) Description 09/25/2024 Refill [facility] MEDICINE [address] [place], [place] [phone] Faith Mason MD [address] [place], [place] [phone] Essential hypertension Social History Tobacco Use Types [...] documented as of this encounter Care Teams Golf Course Laborer Relationship Specialty Start Date End Date Faith Mason MD [address] [place] [address] PCP - General Family Medicine 04/12/19 Linda Peralta Gauge Maker ApprenticeTalent Associate 06/08/24 documented as of this encounter
--- OUTSIDE RECORDS SUMMARY | 2025-01-24 17:59 | XMS_ITS | Clinical Summary ---
Author Organization [employer] Address [address] [place] [address] [address] [place] [address] Care Team Providers Care Solution Make Up Operator Name Role Phone Faith Mason MD [...] take Blood Pressure daily Active nystatin (Mycostatin) creamIndication s:Vulvar abscess Apply twice daily as needed between skin folds for fungal infection 30 g 1 022 Active HumaLOG KWIKPEN 100 UNIT/ML injection INJECT 8-14 UNITS SUBCUTANEOUSLY THREE TIMES DAILY BEFORE MEALS PER SLIDING SCALE (BS 80-100: 8 units; 101-200: 10 units; 201-300: 12 units; >301 14 units) 15 mL 11 024 Active Blood Glucose Monitoring Suppl (FreeStyle [place] Lite) w/Device kitIndications: Type 2 diabetes mellitus with hyperglycemia, with long-term current use of insulin ([facility]) Use to test blood sugar 3 times daily 1 kit Active TRUEplus Lancets 33G miscIndications :Type 2 diabetes mellitus with hyperglycemia, with long-term current use of insulin ([facility]) TEST BLOOD SUGAR THREE TIMES DAILY 100 each 11 Active levothyroxine (Synthroid, Levoxyl) 25 MCG tablet TAKE 1 TABLET BY MOUTH EVERY MORNING 90 tablet 3 Active omeprazole (PriLOSEC) [address] capsuleIndicati ons:Gastroesoph ageal reflux disease, unspecified whether esophagitis present Take 1 capsule (20 mg) by mouth before breakfast. Do not crush or chew. 30 capsule 11 Active insulin glargine (Toujeo Max SoloStar) 300 UNIT/ML injectionIndica tions:Type 2 diabetes mellitus with hyperglycemia, with long-term current use of insulin ([facility]) INJECT 28 UNITS SUBCUTANEOUSLY EVERY DAY 6 mL 1 Active sodium chloride (Rolette) 0.65 % nasal spray Administer 1 spray into each nostril if needed for congestion. 30 mL 12 024 2024 Active guaiFENesin 200 MG/10ML liquidIndicatio ns:Acute cough Take 10 mL by mouth every 6 (six) hours if needed (take for cough if needed). 236 mL Active brimonidine (AlphaGAN) 0.2 % ophthalmic solution Administer 1 drop into the left eye 3 times daily. Active Continuous Glucose Home Theater Specialist (FreeStyle Tika 3 [place]) device Use as directed Active Continuous Glucose Sensor (FreeStyle Tika 3 Sensor) [facility] [place] DIRECTED TO TEST [...] into the left eye 3 times daily. 024 Active Acetaminophen Extra Strength 500 MG tabletIndicatio ns:Polyarthralg ia TAKE 2 TABLETS BY MOUTH EVERY 8 HOURS NEEDED FOR MILD PAIN 30 tablet 2 025 Active docusate sodium (Colace) 100 MG capsuleIndicati ons:Other constipation TAKE 1 CAPSULE BY MOUTH TWICE DAILY 180 capsule 025 Active Fiber-Lax 625 MG tabletIndicatio ns:Constipation , unspecified constipation type TAKE 1 TABLET BY MOUTH EVERY MORNING 90 tablet 3 025 Active fluconazole (Diflucan) 150 MG tabletIndicatio ns:Yeast infection Take one tablet then after 72 hours take another tablet 1 tablet 025 Active melatonin 5 MG tabletIndicatio ns:Primary insomnia TAKE 1 TABLET BY MOUTH AT BEDTIME FOR SLEEP 90 tablet 1 025 Active amLODIPine (Norvasc) 10 MG tabletIndicatio ns:Essential hypertension TAKE 1 TABLET BY MOUTH EVERY MORNING 90 tablet 1 025 Active amoxicillin (Amoxil) 500 MG capsuleIndicati ons:Dental caries Take 4 tabs (2 grams) 1 hour prior to dental procedure 12 capsule 3 025 Active metoprolol tartrate (Lopressor) 25 MG tablet TAKE 1/2 TABLET BY MOUTH TWICE DAILY IN THE MORNING AND EVENING 30 tablet 3 025 Active apixaban (Eliquis) 5 MG tabletIndicatio ns:Atrial flutter, unspecified type (CMS/HCC) TAKE 1 TABLET BY MOUTH TWICE DAILY IN THE MORNING AND IN THE EVENING 60 tablet 3 025 Active gabapentin (Neurontin) 300 MG capsuleIndicati ons:Right arm pain,Numbness and tingling of right arm TAKE 1 CAPSULE BY MOUTH AT BEDTIME 30 capsule 2 025 Active hydrALAZINE (Apresoline) 50 MG tablet Take 1 tablet (50 mg) by mouth 3 times daily. 270 tablet 1 025 Active Alcohol Swabs (Alcohol Prep) 70 % padsIndications :Type 2 diabetes mellitus with hyperglycemia, with long-term current use of insulin (CMS/HCC) USE THREE TIMES DAILY DIRECTED 100 each 11 025 Active atorvastatin (Lipitor) 40 MG tablet TAKE 1 TABLET BY MOUTH EVERYDAY AT NOON 90 tablet 1 025 Active D3 Super Strength 50 MCG (2000 UT) capsule TAKE 1 CAPSULE BY MOUTH EVERY MORNING 90 capsule 1 025 Active amoxicillin-cla vulanate (Augmentin) 875-125 MG tabletIndicatio ns:Chronic frontal sinusitis,Acute otitis externa, unspecified laterality, unspecified type Take 1 tablet by mouth 2 times daily for 7 days. 14 tablet 025 2024 Active ketoconazole (NIZOral) 2 % shampooIndicati ons:Seborrheic dermatitis Apply topically 2 (two) times a week. 120 mL 025 Active Alcohol Swabs (Alcohol Prep) 70 % padsIndications :Type 2 diabetes mellitus with hyperglycemia, with long-term current use of insulin ([facility]) USE DIRECTED THREE TIMES DAILY 100 each 11 024 2024 Discontinued Aspirin Low Dose 81 MG EC tabletIndicatio ns:Coronary artery disease involving big sandy coronary artery of big sandy heart with unstable angina pectoris ([facility]) TAKE 1 TABLET BY MOUTH EVERYDAY AT NOON 90 tablet 3 024 2024 Discontinued atorvastatin (Lipitor) 40 MG tablet TAKE 1 TABLET BY MOUTH EVERYDAY AT NOON 90 tablet 1 025 2024 Discontinued D3 Super Strength 50 MCG (2000 UT) capsule TAKE 1 CAPSULE BY MOUTH EVERY MORNING 90 capsule 1 025 2024 Discontinued Active Problems Patient Care Coordination No te Formatting of this note migh t be different from the original. C3/CM Blossom Martino RN, Chart Review Problem Noted Date Diagnosed Date Great toe pain, right 01/24/2025 Acute otitis externa 01/24/2025 Seborrheic dermatitis 01/24/2025 Mouth bleeding 01/24/2025 Assessment & Plan (01/24/2025 2:56 PM EDT): Patient had a dental extraction on January 19, 2025 since then she has has persistent bleeding around her gum, I we will hold her Eliquis for 2 days and then she was instructed to monitor for persistent bleeding and then reinitiate it again Acute CHF 01/19/2025 Acute hyperkalemia 01/19/2025 AF (atrial fibrillation) 01/19/2025 Anemia of chronic kidney failure 01/19/2025 Carpal tunnel syndrome on both sides 01/19/2025 Cubital tunnel syndrome on left 01/19/2025 Cubital tunnel syndrome on right 01/19/2025 Degenerative joint disease (DJD) of hip 01/20/20 25 Elevated troponin 01/19/2025 Hemorrhage of arteriovenous fistula 01/19/2025 Hidradenitis suppurativa 01/19/2025 Overview (01/19/2025): She has no complaints and hidradenitis resolved. History of cardiac catheterization 01/19/2025 Overview (01/19/2025): 09/03/21 LM normal, LAD mild luminal irregularities < 30% stenosis, LCx mild luminal irregularities < 30%, Distal RCA 30-40% stenosis 06/14/2024, left main normal, lad normal, left circumflex 1st OM 99% stenosis, proximal circumflex 95% stenosis, distal RCA 40% stenosis, PCI to OM1 HLD (hyperlipidemia) 01/19/2025 Lumbar facet joint pain 01/19/2025 Non-toxic multinodular goiter 01/19/2025 NSTEMI (non-ST elevated myocardial infarction) 0 01/19/2025 AMARJIT on CPAP 01/19/2025 Pulmonary HTN 01/19/2025 Obesity due to excess calories 01/19/2025 Severe obesity (BMI 35.0-39.9) with comorbidity 01/19/2025 Unstable angina 01/19/2025 Chest pain 01/19/2025 CAD (coronary artery disease) 01/19/2025 Chronic kidney disease with end stage renal failure on dialysis 01/19/2025 Acid reflux 01/19/2025 Overview (01/19/2025): EGD-r/o peptic ulcer disease, nonulcer dyspepsia, etc Sister early 60s of stomach cancer-this causes her some anxiety, understandable Pain in both feet 01/19/2025 Encounter for screening colonoscopy 01/19/2025 Overview (01/19/2025): Index screening colon Preop cardiovascular exam 01/19/2025 Uncontrolled type 2 diabetes mellitus with hyperglycemia, with long-term current use of insulin 01/19/2025 Type 2 diabetes mellitus with end-stage renal di sease 01/19/2025 Pelvic pain 08/23/2024 Assessment & Plan (01/24/2025 2:48 PM EDT): I will refer patient to gynecology Assessment & Plan (08/24/2024 1:27 PM EDT): Bacterial vaginosis and CG ordered Patient will be contacted wit results Right arm pain 08/23/2024 Assessment & Plan (08/24/2024 1:28 PM EDT): Gabapentin 300mg at bed time I will order nerve studies and contact patient back with results Internal nasal lesion 08/23/2024 Chronic nonintractable headache 05/26/2024 Assessment & Plan (05/26/2024 10:29 AM EST): Patient will be follow by neurology , she lost her appointment because she was hospitalized, she will reschedule her appointment, information was given to patient Preop examination 03/17/2024 Assessment & Plan (03/17/2024 [...] frontal sinusitis 03/17/2024 Depression with anxiety 03/17/2024 Screening examination for STI 12/24/2023 Other constipation [...] 2 diabetes mellitus 08/24/2023 Assessment & Plan (01/24/2025 2:49 PM EDT): Glucose is high as well as her A1c I advised to follow-up with endocrinology Assessment & Plan (08/24/2023 3:03 PM EDT): I will decrease gabapentin to 100mg BID Vaginal discharge 04/07/2023 Assessment & Plan (01/24/2025 2:48 PM EDT): BV and CG ordered today patient will be contacted with results Encounter for screening mamm ogram for malignant neoplasm of breast 04/07/2023 Colon cancer screening 04/07/2023 Severe dental caries 02/20/2023 Right hip pain 11/28/2022 Assessment [...] (05/21/2022 9:19 AM EST): -Currently followed by [facility] - last available consult note Jan 2022 w/ Dr. Miller -Continues with current med regimen: -Januvia 25mg PO daily -Tuojeo insulin 28 units subcutaneous daily -Lispro AC per SS -Dexcom ordered and managed through [facility] -Strongly encourage pt to schedule follow [...] with meals Asthma 05/15/2022 Atrial flutter 05/15/2022 Chronic low back pain 05/15/2022 Dyspnea on exertion 05/15/2022 Essential hypertension [...] frequency of urination 05/15/2022 Postmenopausal bleeding 05/15/2022 Assessment & Plan (01/24/2025 2:48 PM EDT): She is currently not bleeding but reports that she did have an episode and lasted for 3 months and then stop, I want her to be seen by gynecology referral is in Urinary tract infectious disease 05/15/2022 Chronic diastolic heart failure 09/02/2018 Primary osteoarthritis of both knees 09/02/2018 Recurrent major depression in partial remission 09/02/2018 Coronary artery disease invo lving big sandy coronary artery of big sandy heart with unstable angina pectoris 06/03/2018 Calculus of kidney 06/03/2018 Atypical chest pain 06/03/2018 Moderate mitral regurgitation 06/04/2017 Chronic endometritis 11/04/2016 Resolved Problems Problem Noted Date Diagnosed Date Resolved Date Abscess of multiple sites 01/19/2025 Acute hyperglycemia 01/19/2025 09/02/20 25 Carpal tunnel syndrome of left wrist 01/19/2025 01/24/2025 Carpal tunnel syndrome of right wrist 01/19/2025 01/24/2025 COVID-19 01/19/2025 01/24/2025 RSV (acute bronchiolitis due to respiratory syncytial virus) 01/19/2025 01/24/2025 Stiffness of right hand joint 01/19/2025 01/24/2025 Trigger finger, right middle finger 01/19/2025 01/24/2025 Kidney stones 01/19/2025 01/24/2025 Headache 01/19/2025 01/24/2025 Folliculitis 01/19/2025 01/24/2025 Syncope 01/19/2025 01/24/2025 Toxic metabolic encephalopathy 01/19/2025 01/24/2025 UTI (urinary tract infection) 01/19/2025 01/24/2025 Pain, dental 01/19/2025 01/24/2025 Pap smear for cervical cancer screening 08/23/2024 01/24/2025 Assessment & Plan (08/24/2024 1:28 PM EDT): Patient to be contacted with results Numbness and tingling of right arm 08/23/2024 01/24/2025 Acute maxillary sinusitis 05/11/2024 Cough 05/11/2024 01/24/2025 Acute intractable headache 02/09/2024 0 01/24/2025 Assessment & Plan (02/09/2024 4:24 PM EDT): [...] discussed. -Seek medical attention for worsening symptoms. Encephalopathy 08/24/2023 01/24/2025 Assessment & Plan (05/26/2024 10:30 AM EST): Resolved Assessment & Plan (08/24/2023 3:09 PM EDT): Uremic encephalopathy? Hypo/hyperglicemia? Metabolic encephalopathy? Medication related? I will decrease gabapentin dose and monitor I extensibly discuss with patient about the necessity to be follow by endocrinology Patient will continue with VNA services Weakness 08/24/2023 01/24/2025 Assessment & Plan (08/24/2023 3:08 PM EDT): Continue with home PT twice a week UTI symptoms 04/07/2023 01/24/2025 Assessment & Plan (11/25/2023 5:18 PM EDT): UA and culture ordered Patient will be treated empirically with bactrim Assessment & Plan (04/07/2023 2:22 PM EST): Do not hold urine unfortunately patient could not produce enough urine for culture I will treat empirically with macrobid UA consistent with UTI If symptoms persist or worse contact me back Bronchitis 05/15/2022 01/24/2025 Chronic cough 05/15/2022 01/24/2025 Dysphonia 05/15/2022 01/24/2025 Type 2 diabetes mellitus without complication 09/03/19 19 05/21/2022 Rash 09/02/2018 01/24/2025 Encounters Date Type Department Care Team Description 01/24/2025 1:00 PM EDT Office Visit [facility] [address] [place] [phone] Faith Mason MD Mouth bleeding (Primary Dx); Vaginal discharge; Pelvic pain; Chronic frontal sinusitis; Great toe pain, right; Diabetic polyneuropathy associated with type 2 diabetes mellitus (CMS/HCC); Acute otitis externa, unspecified laterality, unspecified type; Seborrheic dermatitis; Postmenopausal bleeding 01/24/2025 Travel 01/19/2025 1:30 PM EDT Office Visit [facility] [address] [place] [phone] [place] DDS Severe dental caries (Primary Dx); Pain, dental 01/17/2025 Refill [facility] [address] [place] [phone] Faith Mason MD 01/16/2025 Patient Outreach [facility] [address] [place] [address] [phone] Faith Mason MD Pre-visit Planning (SDOH screening negative and tobacco screening negative) 01/10/2025 Telephone [facility] [address] [place] [address] [phone] Faith Mason MD Durable Medical Equipment 12/31/2024 Refill [facility] [address], [place] [phone] Faith Mason MD Type 2 diabetes mellitus with hyperglycemia, with long-term current use of insulin ([facility]) 12/30/2024 Telephone [facility] [address] [place] [phone] Faith Mason MD Chart Prep 12/27/2024 Travel 12/22/2024 Telephone [facility] [address] [place] [phone] Faith Mason MD Appointment Request 12/08/2024 Refill [facility] [address] [place] [address] Fatih Mason MD 12/07/2024 Refill [facility] [address] [place] [phone] Faith Mason MD 12/05/2024 Refill [facility] [address] [place] [address] [phone] Faith Mason MD Right arm pain; Numbness and tingling of right arm 11/18/2024 Refill [facility] [address] [place] [phone] Faith Mason MD Right arm pain; Numbness and tingling of right arm 11/03/2024 Telephone [facility] [address] [place] [address] Reinier Daven[place], DDS 10/26/2024 Refill [facility] [address] [place] [address] Faith Mason MD Atrial flutter, unspecified type (CMS/HCC) from Last 3 Months Immunizations Immunization Administration Dates Next Due Hep B, adult [...] Mass Index 38.76 01/24/2025 1:18 PM EDT Plan of Treatment Health Maintenance Due Date Last Done Comments CT Colonography 1965 Colonoscopy 1965 Dental Prophylaxis 1965 FIT 1965 FOBT 1965 Sigmoidoscopy 1965 Disability Screening 1966 Diabetes: Foot Exam 1976 Eye Exam 1976 Alcohol/Substance Use Screening 1978 DTaP/Tdap/Td Vaccines (1 - Tdap) 1985 Hepatitis B Vaccines (2 of 3 - 19+ 3-dose series) 12/10/2018 11/12/2018 Pneumococcal Vaccine: 50+ Years (2 of 2 - PCV) 04/05/2020 04/05/2019 Diabetes: Urine Protein Screening 07/23/2021 07/23/2020, 07/23/2020 Zoster Vaccines (1 of 2) 05/12/2024 Depression Screening 11/23/2024 11/24/2023, 11/24/19 Lipid Panel 11/30/2024 12/01/2023, 09/09/2022 COVID-19 Vaccine ( season) 2025 05/13/2023, 05/07/2021, 07/05/2020 Influenza Vaccine (#1) 2025 , 02/27/2023, 02/11/2019, Additional history exists Dental Oral Exam 03/23/2025 09/20/2024, 06/29/2008 Diabetes: Hemoglobin A1C 04/25/2025 025, 11/23/2024, 03/17/2024, Additional history exists Mammogram 07/18/2025 07/18/2024, 06/26, 02/01/2020 Dental X-Ray: Bitewings 09/21/2025 09/21/19, 01/22/2023, 06/24/2019, Additional history exists SDOH Screening 01/16/2026 01/16/2025 Tobacco Screening 01/24/2026 01/24/2025 Colorectal Cancer Screening 09/16/2026 FIT DNA/Cologuard 09/16/2026 09/17/2023 Dental X-Ray: Full Mouth 09/22/2027 09/20/2024 Cervical Cancer Screening 08/23/2029 HPV/Cotest 08/23/2029 08/23/2024, 09/23, 07/25/2020 Pap Smear 08/23/2029 08/23/2024, 09/23, 07/25/2020 RSV Patients and Patients Aged 60 years or older (1 - 1-dose 75+ series) 2041 HIV Screening Completed 01/26/2024 Hepatitis C Screening Completed 01/26/2024 HIB Vaccines Aged Out No longer eligi [...] patient's age to complete this topic Meningococcal B Vaccine Aged Out No l onger eligible based on patient's age to complete [...] associated with type 2 diabetes mellitus (CMS/HCC) POCT GLUCOSE Routine 01/24/2025 1:51 PM EDT Diabetic polyneuropathy associated with type 2 diabetes mellitus (CMS/HCC) CASE PRESENTATION, DETAILED AND EXTENSIVE TREATMENT PLANNING Routine 01/19/2025 1:30 PM EDT 16 EXTRACTION, ERUPTED TOOTH REQ REMOVAL OF BONE AND/OR SECTIONING OF TOOTH Routine 01/19/2025 1:30 PM EDT HM HEMOGLOBIN A1C Routine 11/23/2024 INTRAORAL - COMPLETE SERIES OF RADIOGRAPHIC IMAGES Routine 09/20/2024 3:00 PM EDT PERIODIC ORAL EVALUATION - ESTABLISHED PATIENT Routine 09/20/2024 3:00 PM EDT HPV DNA, LOW/HIGH RISK Routine 08/23/2024 12:00 AM EDT PAP SMEAR Routine 08/23/2024 12:00 AM EDT Pap smear for cervical cancer screening BI MAMMOGRAM SCREENING TOMOSYNTHESIS BILATERAL Routine 07/18/2024 11:24 AM EST HEPATITIS PANEL, GENERAL Routine 01/26/2024 2:16 PM EDT Screening examination for STI HIV 1/2 ANTIGEN/ANTIBODY, FOURTH GENERATION W/RFL Routine 01/26/2024 2:16 PM EDT Screening examination for STI LIPID PANEL WITH REFLEX TO DIRECT LDL Routine 12/01/2023 1:06 PM EDT Essential hypertension LAB COLOGUARD COLON CANCER SCREEN Routine 09/17/2023 12:00 PM EDT Colon cancer screening ZZZ HISTORICAL MICROALBUMIN, RANDOM Routine 07/23/2020 9:00 AM EST from Last 3 Months or Most Recently Relevant to Health Maintenance Results * (ABNORMAL) POCT HGB A1C (01/24/2025 1:52 PM EDT) Hemoglobin A1C 9.7(A) 4.0 - 5.7 % QC Media Lot # [id number] Lot# Expiration Date 41,627 Blood 01/24/2025 1:52 PM EDT Faith No MD POINT OF CARE TEST EN TER/EDIT ORDERABLES Final Result * (ABNORMAL) POCT Glucose (01/24/2025 1:51 PM EDT) Pathologist [facility] Glucose Blood, POC 351(A) 60 - 200 mg/dL QC Media Lot # [id number] Lot# Expiration Date 22,726 Blood Capillary blood specimen / Unknown 01/24/2025 1:51 PM EDT Faith No MD POINT OF CARE TEST EN TER/EDIT ORDERABLES Final Result * (ABNORMAL) Hemoglobin A1c (11/23/2024) Hemoglobin A1C 8.5(A) 4.0 - 5.7 % Narrative Brea Becerra - 11/23/2024 See labs under care everywhere with matching A1c date Laxmi Provider HEALTH MAINTENANCE Final Result * HPV DNA, Low/High Risk (08/23/2024 12:00 AM EDT) Pathologist [facility] HPV High Risk Negative Negative [facility] HPV Genotype 16 Negative Negative [facility] HPV Genotype 18 Negative Negative [facility] Comment:HPV testing performe d at [facility] (CLIA#[id number]), [address] [place] [phone].Testing for HPV was performed using the Mike [...] detected. 08/23/2024 08/24/2024 6:0 0 AM EDT Faith No MD LAB BLOOD ORDERABLES Final Result [facility] [address] [place] [phone] * Pap Smear (08/23/2024 12:00 AM EDT) Swab 08/23/2024 08/24/2024 6:0 0 AM EDT Narrative [facility] - 08/29/2024 1:23 PM EDT ----- ------- Name: Sarah Dixon Age/Sex: 59/F : 1965 Unit#: [id number] Attend Dr: Faith Mason MD Re08/23/24 Status: DEP REF Location: HOJanethHHCLNP Disch: ----- ------- SPEC : [id number] RECD: 08/24/24 STATUS: FELA UMAÑA NUM: [id number] NADJA: 08/23/24- [facility] DR: Faith Mason MD ENTERED: 08/24/24 SP TYPE: Pap Smr OTHR DR: ORDERED: Pap Smear Interpretation Satisfactory for evaluation. Negative for intraepithelial lesion or malignancy. No endocervical cells seen. HPV High Risk: Negative HPV Genotyping 16: Negative HPV Genotyping 18: Negative Clinical Information LMP: Unknown date Previous PAP test: Unknown date, WNL Material Received Cervix ----- ------- Signed (signature on file) FREDRICK Doan (ASCP) 08/29/24 1323 ----- ------- END OF REPORT us Faith No MD LAB CYTOLOGY ORDERABL ES Final Result [facility] [address] [place] [address] [phone] * BI Mammogram Screening Tomosynthesis Bilateral (07/18/2024 11:24 AM EST) Anatomical Region Laterality Modality Breast Bilateral Mammography 07/18/2024 11:2 4 AM EST Narrative 07/23/2024 12:27 PM EST [facility] [address] [place] [address] Mammography Report Signed Patient: Sarah Dixon MR#: [id number] : 1965 Acct:[id number] Age/Sex: 59 / F ADM Date: 07/18/24 Loc: HO.MAMMO Attending Dr: Faith No MD Ordering Physician: Faith Mason MD Results: 1Negative Date of Service: 07/18/24 Follow Up: 1 Year From Orig inal Mammogram Procedure(s): MM tomosynthesis screening BI Accession Number(s): [id number] cc: Faith Mason MD EXAMINATION: MM SCREENING [...] OV> 07/23/24 1223 DD/ 1124 TD/TT: 07/18/24 112 Circular Knitter Helper: Procedure Note Donotvickiinterpreter, Image - 07/23/20[facility] [address] [place] [address] Mammography Report Signed Patient: Vidal Dixon#: [id number] : 1965Acct:[id number] Age/Sex: 59 / FADM Date: 07/18/24 Loc: HO.MAMMO Attending Dr: Faith No MD Ordering Physician: Faith Mason MDResults: 1Negative Date of Service: 07/18/24Follow Up: 1 Year From Orig inal Mammogram Procedure(s): MM tomosynthesis screening BI Accession Number(s): [id number] cc: Faith Mason MD EXAMINATION: MM SCREENING [...] by: Alicia Archuleta DO 07/23/2024 12:23 PM [facility] Dictated By: Alicia Archuleta DO Signed By: <Electronically signed by Alicia Archuleta DO in OV> 07/23/24 1223 DD/ 1124 TD/TT: 07/18/24 1124 Circular Knitter Helper: Faith Schroeder Cheyenne No MD IMG BI PROCEDURES Yoshi telma Result - Final * Hepatitis Panel, General (01/26/2024 2:16 PM EDT) Hepatitis A IgM REACTIVE (Abnormal) Nonreactive [facility] Comment:For additional infor mation, please refer [email or web address](This link is being provided for informational/educational purposes only.)THIS TEST PERFORMED AT:[facility] [address] [phone] DIRECTOR: EVITA ALICEA MD ~Hepatitis B Surface Antibody REACTIVE (Abnormal) Nonreactive [facility] Comment:THIS TEST PERFORMED AT:[facility] [address] [phone] DIRECTOR: EVITA ALICEA MD Hepatitis B Core Antibody NON-REACTI VE Nonreactive [facility] Comment:For additional infor mation, please refer [email or web address](This link is being provided for informational/educational purposes only.)THIS TEST PERFORMED AT:[facility] [address] [phone] DIRECTOR: EVITA ALICEA MD Hepatitis C Antibody NON-REACTI VE Nonreactive [facility] Comment:HCV antibody was non -reactive. There is no laboratoryevidence of HCV infection.In most cases, no further action is required. However,if recent HCV exposure is suspected, a test for HCV RNA(test code 72773) is suggested.For additional information please refer [email or web address](This link is being provided for informational/educational purposes only.)THIS TEST PERFORMED AT:[facility] [address] [phone] DIRECTOR: EVITA ALICEA MD Hepatitis B Surface Ag NON-REACTI VE Negative [facility] Comment:For additional infor mation, please refer [email or web address] [email or web address]/faq/[email or web address](This link is being provided for informational/educational purposes only.)THIS TEST PERFORMED AT:[facility] [address] [phone] DIRECTOR: EVITA ALICEA MD Blood 01/26/2024 2:16 PM EDT 01/26/2024 4:08 PM EDT Faith No MD LAB BLOOD ORDERABLES Final Result [facility] [address] [place] [phone] * HIV-1/2 Antigen and Antibodies, Fourth Generation, with Reflexes (01/26/2024 2:16 PM EDT) HIV AB/AG NON-REAC TIVE Nonreactive [facility] Comment:HIV-1 antigen and HI V-1/HIV-2 antibodies [...] for this purpose.For additional information please refer [email or web address] [email or web address]/faq/[email or web address](This link is being provided for informational/educational purposes only.)The performance of this assay has not been clinicallyvalidated in patients less than 2 years old.THIS TEST PERFORMED AT:[facility] [address] [phone] DIRECTOR: EVITA ALICEA MD Blood Venous blood specimen / Unknown 01/26/2024 2:16 PM EDT 01/26/2024 4:08 PM EDT us Faith No MD LAB BLOOD ORDERABLES Final Result Performing Organization Address [facility] Co de Phone Number [facility] [address] [place] [phone] * (ABNORMAL) Lipid Panel with Reflex to Direct LDL (12/01/2023 1:06 PM EDT) Triglycerides 81 <150 mg/dL [facility] Comment:Desirable Triglyceri de: less than 150 mg/dLBorderline High Triglyceride 150-199 mg/dLHigh Triglyceride: 200-499 mg/dLVery High Triglyceride: greater than or equal to 5OO mg/dL Cholesterol 77 <200 mg/dL [facility] Comment:Desirable Cholestero l: less than 200 mg/dLBorderline High Cholesterol: 200-239 mg/dLHigh Cholesterol: greater than 239 mg/dL LDL Cholesterol Calculated 30 <100 mg/dL [facility] Comment:Desirable LDL: less than 100 mg/dLNear Optimal/Above Optimal LDL: 110- 129 mg/dLBorderline High LDL: 130-159 mg/dLHigh LDL: 160-189 mg/dLVery High LDL: greater than or equal to 190 mg/dL HDL Cholesterol 31(L) >40 mg/dL [facility] Comment:Desirable HDL: great er than 40 mg/dL Note: This HDL assay may give artificially low results in patients with liver disease. Blood 12/01/2023 1:06 PM EDT 12/01/2023 1:11 PM EDT us Faith No MD LAB BLOOD ORDERABLES Final Result Performing Organization Address [facility]/ZIP Co de Phone Number [facility] [address] [place] [phone] * Cologuard?? colon cancer screening (09/17/2023 12:00 PM EDT) Cologuard Result Negative Negative 09/25/19 10:09 AM EDT [facility] (CLIA #:[id number]) Comment: NEGATIVE TEST RESULT. A negative Cologuard result indicates a low likelihood that a colorectal cancer (CRC) or advanced adenoma (adenomatous polyps with more advanced pre-malignant features) is present. The chance that a person with a negative Cologuard test has a colorectal cancer is less than 1 in 1500 (negative predictive value >99.9%) or has an advanced adenoma is less than 5.3% (negative predictive value 94.7%). These data are based on a prospective cross-sectional study of 10,000 individuals at average risk for colorectal cancer who were screened with both Cologuard and colonoscopy. (Kacey Jalloh al, N Engl J Med 2014;370(14):2342-9202) The normal value (reference range) for this assay is negative. COLOGUARD RE-SCREENING RECOMMENDATION: Periodic colorectal cancer screening is an important part of preventive healthcare for asymptomatic individuals at average risk for colorectal cancer. Following a negative Cologuard result, the [place] [employer] Society and U.S. Multi-Society Task Force screening guidelines recommend a Cologuard re-screening interval of 3 years. References: [place] [employer] Guideline for Colorectal Cancer Screening: https://www.cancer.org/cancer/tqhdw-wagakt-movmxp/meutcmvxv-goxwcfiah-owfbtyn/ac s-rec ommendations.html.; Maxi DK, Robinson CR, Barry TateK, Colorectal Cancer Screening: Recommendations for Physicians and Patients from the U.S. Multi-Society Task Force on Colorectal Cancer Screening , Am J Gastroenterology 2017; 112:7361-0525. TEST DESCRIPTION: Composite algorithmic analysis of stool DNA-biomarkers with hemoglobin immunoassay. Quantitative values of individual biomarkers are not [...] (Kacey Jalloh al, N Engl J Med 2014;370(14):3059-4629.) Cologuard may produce a false negative or false positive result (no colorectal cancer or precancerous polyp present at colonoscopy follow up). A negative Cologuard test result does not guarantee the absence of CRC or advanced adenoma (pre-cancer). The current Cologuard screening interval is every 3 years. ([place] [employer] Society and U.S. Multi-Society Task Force). Cologuard performance data in a 10,000 patient pivotal study using colonoscopy as the reference method can be accessed at the following location: www.[facility].Digital Luxury/results. Additional description of the Cologuard test process, warnings and precautions can be found at www.[email or web address] [email or web address] [email or web address].[email or web address]. Stool specimen (specimen) 09/17/2023 12:00 PM EDT 09/18/2023 10:51 AM EDT Faith No MD LAB MOLECULAR DIAGNOS TICS ORDERABLES Final Result [facility] (CLIA #:[id number]) [address] [place] [address], * MICROALBUMIN, RANDOM (07/23/2020 9:00 AM EST) Creatinine Urine 140.39 mg/dL [facility] Microalbum/Creati nine Ratio Ur 419.5 ug/mg cr [facility] Comment: Albumin/Creatinine Ratio Reference Ranges: Normal: < 30 ug/mg creatinine Microalbuminuria: 30 - 300 ug/mg creatinine Clinical Albuminuria: > 300 ug/mg creatinine Microalbumin Urine 589.0 mg/L [facility] 07/23/2020 9:00 AM EST us Historical Provider HISTORICAL/NON ORDERABLE LABS Final Result [facility] [address] from Last 3 Months or Most Recently Relevant to Health Maintenance Insurance [facility] C3 DENTAL-[facility] MEDICAID STAND ADULT Care Teams Solution Make Up Operator Relationship Specialty Start Date End Date Faith Mason MD [address] [facility] [place] [address] PCP - General Family Medicine 04/12/19 Linda Peralta College And Career CounselorDigital Analytics Manager 06/08/24
--- OUTSIDE RECORDS SUMMARY | 2025-01-24 17:59 | XMS_ITS | Encounter Summary ---
Author Organization [email or web address] Address [address] [facility] 7t [place] [address] Care Team Providers Care Fiber Drier Operator Name Role Phone Faith Mason MD Primary Care Provide r Reason for Visit * Reason Comments Med Refill Encounter Details Date Type Department Care Team ([facility] st Contact Info) Description 06/24/2023 Refill [facility] MEDICINE [address] [place], [place] [phone] Faith Mason MD [address] [place], [place] [phone] Social History Tobacco Use Types Packs/Day Years [...] documented as of this encounter Care Teams Fiber Drier Operator Relationship Specialty Start Date End Date Faith Mason MD [address] [place] [address] PCP - General Family Medicine 04/12/19 Linda Peralta Dispatcher Tow TruckFlight Test Engineer 06/08/24 documented as of this encounter
--- OUTSIDE RECORDS SUMMARY | 2025-01-24 17:59 | XMS_ITS | Encounter Summary ---
Author Organization [employer] Address [address] [facility] 7t [place] [address] Care Team Providers Care Boring Mill Operator For Metal Name Role Phone Faith Mason MD Primary Care Provide r Reason for Visit * Reason Comments Med Refill Encounter Details Date Type Department Care Team ([facility] st Contact Info) Description 04/05/2024 Refill [facility] MED & PEDS [address] [place], [place] [phone] Faith Mason MD [address] [place], [place] [phone] Atrial flutter, unspecified type (CMS/HCC); Diabetic polyneuropathy [...] documented as of this encounter Care Teams Boring Mill Operator For Metal Relationship Specialty Start Date End Date Faith Mason MD [address] [place] [phone] PCP - General Family Medicine 04/12/19 Linda Peralta Student AmbassadorLegal Stenographer 06/08/24 documented as of this encounter
--- OUTSIDE RECORDS SUMMARY | 2025-01-24 17:59 | XMS_ITS | Clinical Summary ---
Author Organization [facility] Address [address] [address] Phone Care Team Providers Care Tenter Frame Operator Name Role Phone Ines Zamora MD Primary Care Provider + Social History Tobacco Use Types Packs/Day Years Used Date Smoking Tobacco: Never Assessed Education Answer Date Recorded Are you interested in more education? Not on reed e 09/19/2022 Are you concerned about learning? Not on file 09/19/2022 No 09/19/2022 No 09/19/2022 Digital Access Answer Date Recorded No 10/18/2022 No 10/18/2022 Reliable internet access at home? Not on file 10/18/2022 Device with a working camera? Not on file Comments Unknown Sex and Gender Information Value Date Recorded Sex Assigned at Not on file Legal Sex Female 5:07 PM EDT Gender Identity Not on file Sexual Orientation Not on file Plan of Treatment Health Maintenance Due Date Last Done Comments Adult Td,Tdap Booster 1966 LIPID PANEL 1966 DEPRESSION SCREENING 1978 SMOKING Hx and SMOKELESS TOBACCO SCREENING 1979 HEPATITIS C SCREENING 1984 HIV ONE-TIME SCREENING (18-6 5 YEARS) 1984 PAP SMEAR 1987 MAMMOGRAM 2006 COLOGUARD 2011 COLONOSCOPY 2011 COLORECTAL CANCER SCREENING 2011 FIT TEST 2011 FOBT 2011 SIGMOIDOSCOPY 2011 VIRTUAL COLONOSCOPY 2011 ZOSTER VACCINES (1 of 2) 2016 PNEUMOCOCCAL VACCINES (50+ years) (2 of 2 - PCV) 04/05/2020 04/05/2019 INFLUENZA VACCINE (#1) 2024 9, 03/26/2018 COVID-19 VACCINE (2 6 season) 2025 07/05/2020 HEPATITIS A VACCINES Aged Out No long er eligible based on patient's age to complete this topic HIB VACCINES Aged Out No longer eligi ble based on patient's age to complete this topic MENINGOCOCCAL VACCINES (ACWY) Aged Out No longer eligible based on patient's age to complete this topic MENINGOCOCCAL VACCINES (B) Aged Out N o longer eligible based on patient's age to complete this topic Medical Devices Not on file Insurance C3 ACO C3 ACO C3 ACO C3 ACO [place] [place] [address] [place] [address] C3 ACO C3 ACO [place] [place] [address] [place] [address] C3 ACO C3 ACO Care Teams Tenter Frame Operator Relationship Specialty Start Date End Date Ines Zamora MD [address] [place] [address] [address] [place] [phone] PCP - General Internal Medicine 02/23/19 Additional Source Comments The information contained in this document represents components of the legal health record. It is not the complete legal health record.[facility]
--- OUTSIDE RECORDS SUMMARY | 2025-01-24 17:59 | XMS_ITS | Encounter Summary ---
Author Organization [employer] Address [address] [place] [address] 7t [place] [address] Care Team Providers Care Electrician Elevator Maintenance Name Role Phone Faith Mason MD Primary Care Provide r Reason for Visit * Reason Comments Med Change Request Encounter Details Date Type Department Care Team ([facility] st Contact Info) Description 11/28/[address] [facility] MEDICINE [address] [place], [place] [phone] Faith Mason MD [address] [place], [place] [phone] Type 2 diabetes mellitus with hyperglycemia, with long-term current use of insulin ([facility]) Social History Tobacco Use Types [...] hyperglycemia, with long-term current use of insulin ([facility]) documented in this encounter Additional Health Concerns Assessment Noted Time PHQ-9 Depression Total Score: 14 023 2:21 PM EDT documented as of this encounter Care Teams Electrician Elevator Maintenance Relationship Specialty Start Date End Date Faith Mason MD [address] [place] [address] PCP - General Family Medicine 04/12/19 Linda Peralta Contract LoaderCommunity Support Associate 06/08/24 documented as of this encounter
--- OUTSIDE RECORDS SUMMARY | 2025-01-24 17:59 | XMS_ITS | Encounter Summary ---
Author Organization [employer] Address [address] [facility] 7t [place] [address] Care Team Providers Care Airplane Dispatch Clerk Name Role Phone Faith Mason MD Primary Care Provide r Reason for Visit * Reason Onset Date Comments Durable Medical Equipment 11/05/2023 Encounter Details Date Type Department Care Team (Late st Contact Info) Description 11/05/[address] [facility] MEDICINE [address] [place], [place] [phone] Faith Mason MD [address] [place], [place] [phone] Durable Medical Equipment Social History Tobacco Use [...] 11/05/2023 12:47 PM EDT Silver Mckeon at [facility] calling to request the following DME. Shower Chair Shower grab bars Wheel chair Rolator walker with seat documented in this encounter Plan of Treatment Not on file documented as of this encounter Visit Diagnoses Not on filedocumented in this encounter Additional Health Concerns Assessment Noted Time PHQ-9 Depression Total Score: 14 023 2:21 PM EDT documented as of this encounter Care Teams Airplane Dispatch Clerk Relationship Specialty Start Date End Date Faith Msaon MD [address] [place] [address] PCP - General Family Medicine 04/12/19 Linda Peralta Concert PromoterOil Well Cable Tool Driller 06/08/24 documented as of this encounter
--- OUTSIDE RECORDS SUMMARY | 2025-01-24 17:59 | XMS_ITS | Encounter Summary ---
Author Organization [employer] Address [address] [facility] 7t [place] [address] Care Team Providers Care Ehs Manager Name Role Phone Faith Mason MD Primary Care Provide r Encounter Details Date Type Department Care Team (Late st Contact Info) Description 07/17/[address] [facility] MEDICINE [address] [place], [place] [phone] Faith Mason MD [address] [place], [place] [phone] Social History Tobacco Use Types Packs/Day Years [...] the past 12 months, has t he [employer], [employer], oil or water company threatened to shut [...] documented as of this encounter Care Teams Ehs Manager Relationship Specialty Start Date End Date Faith Mason MD [address] [place] [address] PCP - General Family Medicine 04/12/19 Linda Peralta Art Display MakerSolar Sales Assessor 06/08/24 documented as of this encounter
--- OUTSIDE RECORDS SUMMARY | 2025-01-24 17:59 | XMS_ITS | Encounter Summary ---
Author Organization [employer] Address [address] [facility] [address]t [place] [address] Care Team Providers Care Metal Work Duct Installer Name Role Phone Faith Mason MD Primary Care Provide r Reason for Visit * Reason Comments Med Refill Encounter Details Date Type Department Care Team ([facility] st Contact Info) Description 04/04/2024 Refill [facility] CHC MED & PEDS [address] [place], [place] [phone] Faith Mason MD [address] [place], [place] [phone] Essential hypertension Social History Tobacco Use Types [...] documented as of this encounter Care Teams Metal Work Duct Installer Relationship Specialty Start Date End Date Faith Mason MD [address] [place] [address] PCP - General Family Medicine 04/12/19 Linda Peralta Landscaping ManagerClerk Typist 06/08/24 documented as of this encounter
--- OUTSIDE RECORDS SUMMARY | 2025-01-24 17:59 | XMS_ITS | Encounter Summary ---
Author Organization [employer] Address [address] [facility] [address]t [place] [address] Care Team Providers Care Pillow Filler Name Role Phone Faith Mason MD Primary Care Provide r Reason for Visit * Reason Comments Med Refill Encounter Details Date Type Department Care Team ([facility] st Contact Info) Description 08/11/2023 Refill [facility] MEDICINE [address] [place], [place] [phone] Faith Mason MD [address] [place], [place] [phone] Social History Tobacco Use Types Packs/Day Years [...] documented as of this encounter Care Teams Pillow Filler Relationship Specialty Start Date End Date Faith Mason MD [address] [place] [address] PCP - General Family Medicine 04/12/19 Linda Peralta Channel Lip Stiffener InsolesInsurance Sales Assistant 06/08/24 documented as of this encounter
--- OUTSIDE RECORDS SUMMARY | 2025-01-24 17:59 | XMS_ITS | Clinical Summary ---
Author Organization [facility] Address [address] [place] [address] [place] [address] Phone Care Team Providers Care Stockroom Attendant Name Role Phone Ines Zamora MD Primary Care Provider + [phone] Medications lisinopril 10 MG tabletIndicatio ns:Stage 3 [...] Encounters Date Type Department Care Team Description 01/11/2025 Orders Only [facility] [address] [phone] Jeffy Tineo MD 01/09/2025 Treatment [facility] [address] [phone] Jeffy Tineo MD End stage renal disease; Dependence on renal dialysis 01/02/2025 Treatment [facility] [address] [phone] Jeffy Tineo MD End stage renal disease; Dependence on renal dialysis 12/26/2024 Treatment [facility] [address] [phone] Jeffy Tineo MD End stage renal disease; Dependence on renal dialysis 12/23/2024 Treatment [facility] [address] [phone] Jeffy Tineo MD End stage renal disease; Dependence on renal dialysis 12/23/2024 Treatment [facility] [place] [address] [facility] [address] [place] [address] Jeffy Tineo MD End stage renal disease; Dependence on renal dialysis 12/19/2024 Treatment [facility] [address] [phone] Jeffy Tineo MD End stage renal disease; Dependence on renal dialysis 12/07/2024 Treatment [facility] [address] [phone] Jeffy Tineo MD End stage renal disease; Dependence on renal dialysis 11/28/2024 Treatment [facility] [address] [phone] Jeffy Tineo MD End stage renal disease; Dependence on renal dialysis 11/23/2024 Treatment [facility] [address] [phone] Jeffy Tineo MD End stage renal disease; Dependence on renal dialysis 11/14/2024 Treatment [facility] [address] [phone] Jeffy Tineo MD End stage renal disease; Dependence on renal dialysis 11/07/2024 Treatment [facility] [address] [phone] Jeffy Tineo MD End stage renal disease; Dependence on renal dialysis 10/31/2024 Treatment [facility] [place] [address] [phone] Jeffy Tineo MD End stage renal disease; Dependence on renal dialysis 10/24/2024 Treatment [facility] [address] [phone] Jeffy Tineo MD End stage renal disease; Dependence on renal dialysis from Last 3 Months Family History Medical [...] Visual Foot Exam 11/14/2020 Influenza Vaccine (#1) 2025 Diabetes: Hemoglobin A1C 02/23/2025 025, 08/24/2024, 06/01/2024, Additional history exists Procedures Procedure Name Priority Date/Time Associated Diagnosis Comments HEMOGLOBIN Routine 01/20/2025 3:00 AM EDT HEMOGLOBIN Routine 01/16/2025 3:00 AM EDT HEMOGLOBIN AND HEMATOCRIT, BLOOD Routine 01/11/2025 3:00 AM EDT HEMOGLOBIN Routine 01/04/2025 3:00 AM EDT PROTEIN, TOTAL, SERUM Routine 12/28/2024 3:00 AM EDT TRANSFERRIN SATURATION Routine 3:00 AM EDT MAGNESIUM Routine 12/28/2024 3:00 AM EDT ELECTROLYTE PANEL Routine 12/28/2024 3:0 0 AM EDT LACTATE DEHYDROGENASE Routine 12/28/2024 3:00 AM EDT LIH (HC) Routine 12/28/2024 3:00 AM EDT GLUCOSE, RANDOM Routine 12/28/2024 3:00 AM EDT BUN/CREATININE RATIO Routine 12/28/2024 3:00 AM EDT CREATININE, SERUM Routine 12/28/2024 3:0 0 AM EDT BILIRUBIN, TOTAL Routine 12/28/2024 3:00 AM EDT AST Routine 12/28/2024 3:00 AM EDT ALT Routine 12/28/2024 3:00 AM EDT CALCIUM PHOSPHORUS PRODUCT, ADJUSTED (HC) Routine 12/28/2024 3:00 AM EDT ALKALINE PHOSPHATASE Routine 12/28/2024 3:00 AM EDT FERRITIN Routine 12/28/2024 3:00 AM EDT KT/V NATURAL LOG, URR (HC) Routine 12/28/2024 3:00 AM EDT CBC AND DIFFERENTIAL Routine 12/28/2024 3:00 AM EDT CONFIRMATION TEST HCV Routine 12/16/2024 3:00 AM EDT HEPATITIS C ABS W/REFLEX RNA DETECTR Routine 12/16/2024 3:00 AM EDT LIH (HC) Routine 12/14/2024 3:00 AM EDT PHOSPHATE ( PHOSPHORUS) Routine 12/14/2024 3:00 AM EDT HEMOGLOBIN Routine 12/09/2024 3:00 AM EDT HEMOGLOBIN AND HEMATOCRIT, BLOOD Routine 12/07/2024 3:00 AM EDT FERRITIN Routine 11/23/2024 3:00 AM EDT TRANSFERRIN SATURATION Routine 3:00 AM EDT PROTEIN, TOTAL, SERUM Routine 11/23/2024 3:00 AM EDT ELECTROLYTE PANEL Routine 11/23/2024 3:0 0 AM EDT MAGNESIUM Routine 11/23/2024 3:00 AM EDT LIPID PANEL Routine 11/23/2024 3:00 AM EDT LIH (HC) Routine 11/23/2024 3:00 AM EDT LACTATE DEHYDROGENASE Routine 11/23/2024 3:00 AM EDT GLUCOSE, RANDOM Routine 11/23/2024 3:00 AM EDT BUN/CREATININE RATIO Routine 11/23/2024 3:00 AM EDT CREATININE, SERUM Routine 11/23/2024 3:0 0 AM EDT BILIRUBIN, TOTAL Routine 11/23/2024 3:0 0 AM EDT AST Routine 11/23/2024 3:00 AM EDT ALT Routine 11/23/2024 3:00 AM EDT CALCIUM PHOSPHORUS PRODUCT, ADJUSTED (HC) Routine 11/23/2024 3:00 AM EDT ALKALINE PHOSPHATASE Routine 11/23/2024 3:00 AM EDT VITAMIN D 25 HYDROXY Routine 11/23/2024 3:00 AM EDT HEPATITIS B SURFACE ANTIBODY QUANT Routine 11/23/2024 3:00 AM EDT PTH, INTACT Routine 11/23/2024 3:00 AM EDT HEMOGLOBIN A1C Routine 11/23/2024 3:00 AM EDT CBC AND DIFFERENTIAL Routine 11/23/2024 3:00 AM EDT KT/V NATURAL LOG, URR (HC) Routine 11/23/2024 3:00 AM EDT HEMOGLOBIN Routine 11/18/2024 3:00 AM EDT HEMOGLOBIN AND HEMATOCRIT, BLOOD Routine 11/09/2024 3:00 AM EDT FERRITIN Routine 10/26/2024 3:00 AM EDT PROTEIN, TOTAL, SERUM Routine 10/26/2024 3:00 AM EDT ELECTROLYTE PANEL Routine 10/26/2024 3:0 0 AM EDT MAGNESIUM Routine 10/26/2024 3:00 AM EDT TRANSFERRIN SATURATION Routine 3:00 AM EDT GLUCOSE, RANDOM Routine 10/26/2024 3:00 AM EDT LACTATE DEHYDROGENASE Routine 10/26/2024 3:00 AM EDT CREATININE, SERUM Routine 10/26/2024 3:0 0 AM EDT LIH (HC) Routine 10/26/2024 3:00 AM EDT BUN/CREATININE RATIO Routine 10/26/2024 3:00 AM EDT AST Routine 10/26/2024 3:00 AM EDT BILIRUBIN, TOTAL Routine 10/26/2024 3:00 AM EDT ALKALINE PHOSPHATASE Routine 10/26/2024 3:00 AM EDT ALT Routine 10/26/2024 3:00 AM EDT CALCIUM PHOSPHORUS PRODUCT, ADJUSTED (HC) Routine 10/26/2024 3:00 AM EDT PTH, INTACT Routine 10/26/2024 3:00 AM EDT CBC AND DIFFERENTIAL Routine 10/26/2024 3:00 AM EDT KT/V NATURAL LOG, URR (HC) Routine 10/26/2024 3:00 AM EDT from Last 3 Months Results * Hemoglobin (01/20/2025 3:00 AM EDT) Only the most recent of5 resultswithin the time period is included. Hgb 11.9 11.2 - 15.7 g/dL [facility] Hemoglobin x 3 35.7 33.6 - 47.1 g/dL [facility] 01/20/2025 3:00 AM EDT 01/21/2025 2:05 PM EDT Jeffy Tineo MD LAB BLOOD ORDERABLES Final Re sult Performing Organization Address City/[facility]/ZIP Co de Phone Number [facility] [address] [place] [address] * Hemoglobin and hematocrit (01/11/2025 3:00 AM EDT) Only the most recent of3 resultswithin the time period is included. Hgb 11.9 11.2 - 15.7 g/dL [facility] Hematocrit 37.2 34.1 - 44.9 % [facility] Hemoglobin x 3 35.7 33.6 - 47.1 g/dL [facility] 01/11/2025 3:00 AM EDT 01/12/2025 1:40 PM EDT Jeffy Tineo MD LAB BLOOD ORDERABLES Final Re sult Performing Organization Address City/[facility]/ZIP Co de Phone Number [facility] [address] [place] [address] * LIH (12/28/2024 3:00 AM EDT) Only the most recent of4 resultswithin the time period is included. Lipemia Normal Normal [facility] Icterus Normal Normal [facility] Hemolysis Normal Normal [facility] 12/28/2024 3:00 AM EDT 12/29/2024 12:43 PM EDT us Jeffy Tineo MD LAB [id number] SOLICITED RESULTS Final Result Performing Organization Address [facility] Co de Phone Number [facility] [address] [place] [address] * (ABNORMAL) Kt/V Natural Log, URR (12/28/2024 3:00 AM EDT) Only the most recent of3 resultswithin the time period is included. Treatment Time 230 min [facility] Pre-Weight, lb 100.2 kg [facility] Post-Weight, lb 97.3 kg [facility] Ultrafiltration Rate 8 <=13 mL/kg/hr [facility] Comment: Recommend achieving Ultrafiltration Rate (UFR) <=10 mL/kg/hr References: Charley TODD et al. Kidney Int. 2010; 79(2):250-257 BUN 52(H) 7 - 25 mg/dL [facility] BUN Post Dialysis 14 7 - 25 mg/dL [facility] UREA REDUCTION RATIO (%) 73 >=65 % [facility] Kt/V Natural Log 1.52 >=1.2 [facility] 12/28/2024 3:00 AM EDT 12/29/2024 12:43 PM EDT Jeffy Tineo MD LAB [id number] SOLICITED RESULTS Final Result Performing Organization Address [facility] de Phone Number [facility] [address] [place] [address] * (ABNORMAL) Calcium Phosphorus Product, Adjusted (12/28/2024 3:00 AM EDT) Only the most recent of3 resultswithin the time period is included. Albumin 4.3 3.6 - 5.4 g/dL [facility] Calcium 9.8 8.6 - 10.3 mg/dL [facility] Phosphorus, Serum 5.5(H) 2.5 - 5.0 mg/dL [facility] Ca*PO4 53.9 <55.0 mg2/dL2 [facility] Calcium, Adjusted Total 9.8 8.6 - 10.3 mg/dL [facility] CA*PO4 CORRCTD 53.9 <55.0 mg2/dL2 [facility] 12/28/2024 3:00 AM EDT 12/29/2024 12:43 PM EDT Jeffy Tineo MD LAB [id number] SOLICITED RESULTS Final Result Performing Organization Address [facility] de Phone Number [facility] [address] [place] [address] * BUN/CREATININE RATIO (12/28/2024 3:00 AM EDT) Only the most recent of3 resultswithin the time period is included. BUN/Creatinine Ratio 6.7 <=23.0 [facility] 12/28/2024 3:00 AM EDT 12/29/2024 12:43 PM EDT Jeffy Tineo MD LAB [id number] SOLICITED RESULTS Final Result Performing Organization Address [facility] de Phone Number [facility] [address] [place] [address] * (ABNORMAL) TSAT (12/28/2024 3:00 AM EDT) Only the most recent of3 resultswithin the time period is included. Iron 50 50 - 170 ug/dL [facility] Transferrin 177(L) 250 - 380 mg/dL [facility] TIBC 248 211 - 406 ug/dL [facility] Iron Saturation (TSat) 20(L) 22 - 52 % [facility] 12/28/2024 3:00 AM EDT 12/29/2024 12:43 PM EDT Jeffy Tineo MD LAB BLOOD ORDERABLES Final Re sult Performing Organization Address [facility] de Phone Number [facility] [address] [place] [address] * (ABNORMAL) CBC and Differential (12/28/2024 3:00 AM EDT) Only the most recent of3 resultswithin the time period is included. DIFFERENTIAL MANUAL, 2 Not Indicated [facility] White Blood Cells 7.4 4.0 - 10.0 K/uL [facility] RBC 3.63(L) 3.93 - 5.22 M/uL [facility] Hgb 11.5 11.2 - 15.7 g/dL [facility] Hemoglobin x 3 34.5 33.6 - 47.1 g/dL [facility] Hematocrit 35.3 34.1 - 44.9 % [facility] MCV 97.2(H) 79.4 - 94.8 fL [facility] MCH 31.7 25.6 - 32.2 pg [facility] MCHC 32.6 32.2 - 35.5 g/dL [facility] RDW 14.6(H) 11.7 - 14.4 % [facility] Platelets 186 182 - 369 K/uL [facility] Neutrophils Relative 70.6 34.0 - 71.1 % [facility] Lymphocytes Relative 17.8(L) 19.3 - 51.7 % [facility] Monocytes 5.8 4.7 - 12.5 % [facility] Eosinophils Relative 4.0 0.7 - 5.8 % [facility] Basophils Relative 1.1 0.1 - 1.2 % [facility] Immature Granulocytes 0.7 0.0 - 1.0 % [facility] 12/28/2024 3:00 AM EDT 12/29/2024 12:21 PM EDT Jeffy Tineo MD LAB BLOOD ORDERABLES Final Re sult Performing Organization Address [facility] Co de Phone Number [facility] [address] [place] [address] * ALT (12/28/2024 3:00 AM EDT) Only the most recent of3 resultswithin the time period is included. Pathologist [facility] ALT (SGPT) 14 10 - 49 U/L [facility] 12/28/2024 3:00 AM EDT 12/29/2024 12:43 PM EDT Jeffy Tineo MD LAB BLOOD ORDERABLES Final Re sult Performing Organization Address [facility] de Phone Number [facility] [address] [place] [address] * AST (12/28/2024 3:00 AM EDT) Only the most recent of3 resultswithin the time period is included. AST (SGOT) 14 <34 U/L [facility] 12/28/2024 3:00 AM EDT 12/29/2024 12:43 PM EDT Jeffy Tineo MD LAB BLOOD ORDERABLES Final Re sult Performing Organization Address [facility] de Phone Number [facility] [address] [place] [address] * Protein, total (12/28/2024 3:00 AM EDT) Only the most recent of3 resultswithin the time period is included. Total Protein 7.4 6.4 - 8.9 g/dL [facility] 12/28/2024 3:00 AM EDT 12/29/2024 12:43 PM EDT us Jeffy Tineo MD LAB BLOOD ORDERABLES Final Re sult Performing Organization Address [facility] de Phone Number [facility] [address] [place] [address] * (ABNORMAL) Alkaline phosphatase (12/28/2024 3:00 AM EDT) Only the most recent of3 resultswithin the time period is included. Alkaline Phosphatase 121(H) 46 - 116 U/L [facility] 12/28/2024 3:00 AM EDT 12/29/2024 12:43 PM EDT us Jeffy Tineo MD LAB BLOOD ORDERABLES Final Re sult Performing Organization Address [facility] de Phone Number [facility] [address] [place] [address] * Magnesium (12/28/2024 3:00 AM EDT) Only the most recent of3 resultswithin the time period is included. Magnesium 2.2 1.9 - 2.7 mg/dL [facility] 12/28/2024 3:00 AM EDT 12/29/2024 12:43 PM EDT Jeffy Tineo MD LAB BLOOD ORDERABLES Final Re sult Performing Organization Address [facility] Co de Phone Number [facility] [address] [place] [address] * (ABNORMAL) Lactate dehydrogenase (12/28/2024 3:00 AM EDT) Only the most recent of3 resultswithin the time period is included. LDH 299(H) 120 - 246 U/L [facility] 12/28/2024 3:00 AM EDT 12/29/2024 12:43 PM EDT Jeffy Tineo MD LAB BLOOD ORDERABLES Final Re sult Performing Organization Address [facility] de Phone Number [facility] [address] [place] [address] * (ABNORMAL) Glucose, random (12/28/2024 3:00 AM EDT) Only the most recent of3 resultswithin the time period is included. Glucose 196(H) 70 - 99 mg/dL [facility] Comment: ADA guidelines outline the following fasting glucose ranges: Normal: <100 Prediabetes: 100-125 Diabetes: >125 12/28/2024 3:00 AM EDT 12/29/2024 12:43 PM EDT us Jeffy Tineo MD LAB BLOOD ORDERABLES Final Re sult Performing Organization Address [facility] de Phone Number [facility] [address] [place] [address] * (ABNORMAL) Ferritin (12/28/2024 3:00 AM EDT) Only the most recent of3 resultswithin the time period is included. Ferritin 1,587(H) 10 - 291 ng/mL [facility] 12/28/2024 3:00 AM EDT 12/29/2024 12:43 PM EDT Jeffy Tineo MD LAB BLOOD ORDERABLES Final Re sult Performing Organization Address [facility] Co de Phone Number [facility] [address] [place] [address] * (ABNORMAL) Creatinine, serum (12/28/2024 3:00 AM EDT) Only the most recent of3 resultswithin the time period is included. Creatinine 7.79(H) 0.55 - 1.02 mg/dL [facility] 12/28/2024 3:00 AM EDT 12/29/2024 12:43 PM EDT Jeffy Tineo MD LAB BLOOD ORDERABLES Final Re sult Performing Organization Address [facility] Co de Phone Number [facility] [address] [place] [address] * Bilirubin, total (12/28/2024 3:00 AM EDT) Only the most recent of3 resultswithin the time period is included. Total Bilirubin 0.6 0.3 - 1.2 mg/dL [facility] 12/28/2024 3:00 AM EDT 12/29/2024 12:43 PM EDT Jeffy Tineo MD LAB BLOOD ORDERABLES Final Re sult Performing Organization Address [facility] de Phone Number [facility] [address] [place] [address] * (ABNORMAL) Electrolyte panel (12/28/2024 3:00 AM EDT) Only the most recent of3 resultswithin the time period is included. Sodium 135(L) 136 - 145 mEq/L [facility] Potassium 4.4 3.4 - 5.0 mEq/L [facility] Chloride 92(L) 98 - 107 mEq/L [facility] Bicarbonate (CO2) 25 21 - 31 mEq/L [facility] Anion Gap 18(H) 3 - 14 mEq/L [facility] 12/28/2024 3:00 AM EDT 12/29/2024 12:43 PM EDT Jeffy Tineo MD LAB BLOOD ORDERABLES Final Re sult Performing Organization Address [facility] de Phone Number [facility] [address] [place] [address] * Confirmation Test HCV (12/16/2024 3:00 AM EDT) [facility] Hep C Ab Confirmation Not needed [facility] 12/16/2024 3:00 AM EDT 12/17/2024 1:17 PM EDT Jeffy Tineo MD LAB BLOOD ORDERABLES Final Re sult Performing Organization Address [facility] de Phone Number [facility] [address] [place] [address] * HEPATITIS C ABS W/REFLEX RNA DETECTR (12/16/2024 3:00 AM EDT) [facility] Hep C Virus Ab Non-Reacti ve Non-Reacti ve [facility] 12/16/2024 3:00 AM EDT 12/17/2024 1:04 PM EDT Jeffy Tineo MD LAB [id number] SOLICITED RESULTS Final Result Performing Organization Address [facility] de Phone Number [facility] [address] [place] [address] * Phosphorus (12/14/2024 3:00 AM EDT) [facility] Phosphorus, Serum 5.0 2.5 - 5.0 mg/dL [facility] 12/14/2024 3:00 AM EDT 12/16/2024 1:19 PM EDT Jeffy Tineo MD LAB BLOOD ORDERABLES Final Re sult Performing Organization Address [facility] de Phone Number [facility] [address] [place] [address] * Vitamin D 25 Hydroxy (11/23/2024 3:00 AM EDT) Vitamin D, 25-Hydroxy 66 30 - 100 ng/mL [facility] Comment: Status Adult Pediatric Deficient: <20 <15 Insufficient: 20-29 15-19 Sufficient: 30-100 20-100 11/23/2024 3:00 AM EDT 11/24/2024 2:36 PM EDT Jeffy Tineo MD LAB BLOOD ORDERABLES Final Re sult Performing Organization Address [facility] de Phone Number [facility] [address] [place] [address] * Hepatitis B Surface Antibody (11/23/2024 3:00 AM EDT) Hep B Surface Antibody 28 mIU/mL [facility] Comment: Interpretation: <10: No Immunity >=10: Probable Immunity 11/23/2024 3:00 AM EDT 11/24/2024 2:36 PM EDT Jeffy Tineo MD LAB BLOOD ORDERABLES Final Re sult Performing Organization Address [facility] de Phone Number [facility] [address] [place] [address] * PTH, Intact (11/23/2024 3:00 AM EDT) Only the most recent of2 resultswithin the time period is included. PTH, Intact 517 160 - 721 pg/mL [facility] Comment: Suggested (KDIGO) ESRD maintenance range is two to nine times the upper normal limit (80.1 pg/mL) for the laboratory. 11/23/2024 3:00 AM EDT 11/24/2024 2:36 PM EDT us Jeffy Tineo MD LAB BLOOD ORDERABLES Final Re sult Performing Organization Address [facility] de Phone Number [facility] [address] [place] [address] * (ABNORMAL) Hemoglobin A1c (11/23/2024 3:00 AM EDT) Hemoglobin A1C 8.5(H) <5.7 % [facility] Comment: Methodology: Enzymatic Normal: <5.7% Prediabetes: 5.7-6.4% Diabetes: >6.4% Diabetic Glucose Control Evaluation: Therapeutic action suggested at >8.0% ADA recommends a glycemic goal of <7.0% 11/23/2024 3:00 AM EDT 11/24/2024 12:24 PM EDT Jeffy Tineo MD LAB BLOOD ORDERABLES Final Re sult Performing Organization Address [facility] de Phone Number [facility] [address] [place] [address] * (ABNORMAL) Lipid panel (11/23/2024 3:00 AM EDT) Cholesterol 89 mg/dL [facility] Comment: Optimal: <200 Borderline: 200-239 High Risk: >239 Triglycerides 91 mg/dL [facility] Comment: Optimal: <150 Borderline: 150-200 High Risk: >200 HDL 42(L) mg/dL [facility] Comment: Optimal: >59 Borderline: 40-59 High Risk: <40 LDL-Calc 29 mg/dL [facility] Comment: Optimal: <100 Borderline: 100-159 High Risk: >159 VLDL Cholesterol Isma 18 mg/dL [facility] Comment: Optimal: <30 Borderline: 30-40 High Risk: >40 Chol/HDL Ratio 2.1 [facility] Comment: Optimal: <3.3 High Risk: >6.2 11/23/2024 3:00 AM EDT 11/24/2024 2:36 PM EDT Jeffy Tineo MD LAB BLOOD ORDERABLES Final Re sult Performing Organization Address [facility] Co de Phone Number [facility] [address] [place] [address] from Last [address] [address] [place] [address] Medicaid [place] Care Teams Stockroom Attendant Relationship Specialty Start Date End Date Ines Zamora MD [address] [place] [id number] PCP - General 06/04/20
--- OUTSIDE RECORDS SUMMARY | 2025-01-24 17:59 | XMS_ITS | Encounter Summary ---
Author Organization [employer] Address [address] [facility] [address] [place] [address] Care Team Providers Care Dermatology Sales Representative Name Role Phone Faith Mason MD Primary Care Provide r Reason for Visit * Reason Onset Date Comments FYI 08/13/2023 Encounter Details Date Type Department Care Team ([facility] st Contact Info) Description 08/13/2023 Telephone [facility] MEDICINE [address] [place], [place] [phone] Faith Mason MD [address] [place], [place] [phone] FYI Social History Tobacco Use Types Packs/Day [...] of today. Any questions contact Tameka at [phone] documented in this encounter Plan of Treatment Not on file documented as of this encounter Visit Diagnoses Not on filedocumented in this encounter Additional Health Concerns Assessment Noted Time PHQ-9 Depression Total Score: 14 023 2:21 PM EDT documented as of this encounter Care Teams Dermatology Sales Representative Relationship Specialty Start Date End Date Faith Mason MD [address] [place] [address] PCP - General Family Medicine 04/12/19 Linda Peralta Home Theater SpecialistGas Cutter 06/08/24 documented as of this encounter
--- OUTSIDE RECORDS SUMMARY | 2025-01-24 17:59 | XMS_ITS | Encounter Summary ---
Author Organization [email or web address] Address [address] [facility] [address] [place] [address] Care Team Providers Care Mechanical Process Engineer Name Role Phone Faith Mason MD Primary Care Provide r Reason for Visit * Reason Comments Med Refill Encounter Details Date Type Department Care Team ([facility] st Contact Info) Description 11/18/[address] [facility] MEDICINE [address] [place], [place] [phone] Faith Mason MD [address] [place], [place] [phone] Right arm pain; Numbness and tingling of right arm Social History Tobacco Use Types Packs/Day Years [...] as of this encounter Visit Diagnoses Diagnosis Right arm pain Pain in soft tissues of limb Numbness and tingling of right arm documented in this encounter Additional Health Concerns Assessment Noted Time PHQ-9 Depression Total Score: 6 11/24/19 24 2:35 PM EDT documented as of this encounter Care Teams Mechanical Process Engineer Relationship Specialty Start Date End Date Faith Mason MD [address] [place] [address] PCP - General Family Medicine 04/12/19 Linda Peralta Brand MgrHeel Blacker 06/08/24 documented as of this encounter
[2025-01-24 20:36] LABS: Bacterial Vaginosis PCR NEGATIVE (Negative); Candida Group PCR DETECTED (Not Detect); Candida glab krusei PCR NOT DETECTED (Not Detect); Trichomonas vaginalis PCR NOT DETECTED (Not Detect)
[2025-01-24 21:20] LABS: CT PCR NOT DETECTED (Not Detect.); NG PCR NOT DETECTED (Not Detect.)
== END 2025-01-24 17:56 | disposition home or self-care (01) ==
LOC: HO.HHCLNP 17:55
PROVIDERS: Visit Provider Internal Medicine
DX: N89.8 Other specified noninflammatory disorders of vagina (principal)
CPT/HCPCS: 81515; 87491; 87591

== ENCOUNTER 2025-01-31 14:00 | Outpatient (REF) | payer MEDICAID, SELFPAY ==
--- OUTSIDE RECORDS SUMMARY | 2025-01-31 16:41 | XMS_ITS | Encounter Summary ---
Author Organization [employer] Address [address] [place] [address] Care Team Providers Care Clutch Assembler Name Role Phone Faith Mason MD Primary Care Provide r Reason for Visit * Reason Onset Date Comments Durable Medical Equipment 11/05/2023 Encounter Details Date Type Department Care Team (Late st Contact Info) Description 11/05/2023 Telephone [facility] MEDICINE [address] [place], [place] [phone] Faith Mason MD [address] [place], [place] [phone] Durable Medical Equipment Social History Tobacco Use [...] 11/05/2023 12:47 PM EDT Silver Mckeon at [facility] calling to request the following DME. Shower Chair Shower grab bars Wheel chair Rolator walker with seat documented in this encounter Plan of Treatment Not on file documented as of this encounter Visit Diagnoses Not on filedocumented in this encounter Additional Health Concerns Assessment Noted Time PHQ-9 Depression Total Score: 14 023 2:21 PM EDT documented as of this encounter Care Teams Clutch Assembler Relationship Specialty Start Date End Date Faith Mason MD [address] [place] [address] PCP - General Family Medicine 04/12/19 Linda Peralta Software DesignerUnder Water Assistant 06/08/24 documented as of this encounter
--- OUTSIDE RECORDS SUMMARY | 2025-01-31 16:41 | XMS_ITS | Encounter Summary ---
Author Organization [employer] Address [address] [facility] [address]t [place] [address] Care Team Providers Care Systems Security Analyst Name Role Phone Faith Mason MD Primary Care Provide r Reason for Visit * Reason Comments Med Refill Encounter Details Date Type Department Care Team ([facility] st Contact Info) Description 06/24/2023 Refill [facility] MEDICINE [address] [place], [place] [phone] Faith Mason MD [address] [place], [place] [phone] Social History Tobacco Use Types Packs/Day Years [...] documented as of this encounter Care Teams Systems Security Analyst Relationship Specialty Start Date End Date Faith Mason MD [address] [place] [address] PCP - General Family Medicine 04/12/19 Linda Peralta Bariatric Program CoordinatorBusiness Analyst Project Manager 06/08/24 documented as of this encounter
--- OUTSIDE RECORDS SUMMARY | 2025-01-31 16:41 | XMS_ITS | Encounter Summary ---
Author Organization [employer] Address [address] [facility] 7t [place] [address] Care Team Providers Care Audio/Video Engineer Name Role Phone Faith Mason MD Primary Care Provide r Encounter Details Date Type Department Care Team ([facility] st Contact Info) Description 08/05/2024 Telephone [facility] MEDICINE [address] [place], [place] [phone] Faith Mason MD [address] [place], [place] [phone] Social History Tobacco Use Types Packs/Day Years [...] documented as of this encounter Care Teams Audio/Video Engineer Relationship Specialty Start Date End Date Faith Mason MD [address] [place] [address] PCP - General Family Medicine 04/12/19 Linda Peralta Silk Screen Printer MachineAuto Customize Painter 06/08/24 documented as of this encounter
--- OUTSIDE RECORDS SUMMARY | 2025-01-31 16:41 | XMS_ITS | Clinical Summary ---
Author Organization [facility] Address [address] [address] Phone Care Team Providers Care Geosciences Professor Name Role Phone Ines Zamora MD [...] [facility]CO [facility]3 [facility]CO [facility] [place] [address] [address] C3 ACO C3 [facility] [place] [address] [address] C3 ACO C3 ACO Care Teams Geosciences Professor Relationship Specialty Start Date End Date Ines Zamora MD [address] [place] [address] [address] [place] [address] PCP - General Internal Medicine 02/23/19 Additional Source Comments The information contained in this document represents components of the legal health record. It is not the complete legal health record.[facility]
--- OUTSIDE RECORDS SUMMARY | 2025-01-31 16:41 | XMS_ITS | Encounter Summary ---
Author Organization [employer] Address [address] [facility] [address]t [place] [address] Care Team Providers Care Motor Assembly Supervisor Name Role Phone Faith Mason MD Primary Care Provide r Encounter Details Date Type Department Care Team ([facility] st Contact Info) Description 08/05/2024 Telephone [facility] MEDICINE [address] [place], [place] [phone] Faith Mason MD [address] [place], [place] [phone] Social History Tobacco Use Types Packs/Day Years [...] documented as of this encounter Care Teams Motor Assembly Supervisor Relationship Specialty Start Date End Date Faith Mason MD [address] [place] [address] PCP - General Family Medicine 04/12/19 Linda Peralta Technical Business Systems AnalystCharger Operator 06/08/24 documented as of this encounter
--- OUTSIDE RECORDS SUMMARY | 2025-01-31 16:41 | XMS_ITS | Encounter Summary ---
Author Organization [employer] Address [address] [place] [address] [address] [place] [address] Care Team Providers Care Hand Candy Cutter Name Role Phone Faith Mason MD Primary Care Provide r Reason for Visit * Reason Comments Med Change Request Encounter Details Date Type Department Care Team ([facility] st Contact Info) Description 11/28/2022 Refill [facility] MEDICINE [address] [place], [place] [phone] Faith Mason MD [address] [place], [place] [phone] Type 2 diabetes mellitus with hyperglycemia, with long-term current use of insulin ([facility]) Social History Tobacco Use [...] hyperglycemia, with long-term current use of insulin ([facility]) documented in this encounter Additional Health Concerns Assessment Noted Time PHQ-9 Depression Total Score: 14 023 2:21 PM EDT documented as of this encounter Care Teams Hand Candy Cutter Relationship Specialty Start Date End Date Faith Mason MD [address] [place] [address] PCP - General Family Medicine 04/12/19 Linda Peralta Slotter Operator HelperSanitarian Aide 06/08/24 documented as of this encounter
--- OUTSIDE RECORDS SUMMARY | 2025-01-31 16:41 | XMS_ITS | Encounter Summary ---
Author Organization [employer] Address [address] [facility] 7t [place] [address] Care Team Providers Care Coding Manager Name Role Phone Faith Mason MD Primary Care Provide r Reason for Visit * Reason Comments Med Refill Encounter Details Date Type Department Care Team ([facility] st Contact Info) Description 04/04/2024 Refill [facility] & PEDS [address] [place], [place] [phone] Faith Mason MD [address] [place], [place] [phone] Essential hypertension Social History Tobacco Use Types [...] documented as of this encounter Care Teams Coding Manager Relationship Specialty Start Date End Date Faith Mason MD [address] [place] [address] PCP - General Family Medicine 04/12/19 Linda Peralta Physical Chemistry ProfessorActivity Coordinator 06/08/24 documented as of this encounter
--- OUTSIDE RECORDS SUMMARY | 2025-01-31 16:41 | XMS_ITS | Encounter Summary ---
Author Organization [employer] Address [address] [place] [address] 7t [place] [address] Care Team Providers Care Foreign Exchange Dealer Name Role Phone Faith Mason MD Primary Care Provide r Reason for Visit * Reason Onset Date Comments Results 01/26/2025 Encounter Details Date Type Department Care Team (Late st Contact Info) Description 01/26/2025 Results Follow-Up [facility] MEDICINE [address] [place] [address] Faith Mason MD [address] [place] [address] POCT Glucose, POCT HGB A1C, Bacterial Vaginosis, Chlamydia/N. Gonorrhoeae RNA, TMA, Vaginal Social History Tobacco Use Types Packs/Day Years [...] the past 12 months, has t he [employer], gas, oil or water company threatened to [...] encounter Miscellaneous Notes * Telephone Encounter - Janie Mahoney RN - 01/27/2025 11:36 AM EDT TC placed to pt., informed pt. Vaginal swab from 01/24/25 came back positive for yeast infection. 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 documented in this encounter Plan of Treatment Not on file documented as of this encounter Visit Diagnoses Diagnosis Yeast infection- Primary documented in this encounter Additional Health Concerns Assessment Noted Time PHQ-9 Depression Total Score: 6 11/24/19 24 2:35 PM EDT documented as of this encounter Care Teams Foreign Exchange Dealer Relationship Specialty Start Date End Date Faith Mason MD [address] [place] [address] PCP - General Family Medicine 04/12/19 Linda Peralta Risk Consulting Treasury DirectorConditioning Coach 06/08/24 documented as of this encounter
--- OUTSIDE RECORDS SUMMARY | 2025-01-31 16:41 | XMS_ITS | Clinical Summary ---
Author Organization [employer] Address [address] [place] [address] 7[address] [place] [address] Care Team Providers Care Chlorinator Name Role Phone Faith Mason MD Primary [...] 024 Active Blood Glucose Monitoring Suppl (FreeStyle Cordell Lite) w/Device kitIndications: Type 2 diabetes mellitus with hyperglycemia, with long-term current use of insulin ([facility]) Use to test blood sugar 3 times daily 1 kit Active TRUEplus Lancets 33G miscIndications :Type 2 diabetes mellitus with hyperglycemia, with long-term current use of insulin ([facility]) TEST BLOOD SUGAR THREE TIMES [...] current use of insulin ([facility]) INJECT 28 UNITS SUBCUTANEOUSLY EVERY DAY 6 mL 1 Active sodium chloride ([place]) 0.65 % nasal spray Administer 1 spray [...] eye 3 times daily. Active Continuous Glucose [place] Former (FreeStyle Tika 3 [place]) device Use as directed Active Continuous Glucose Sensor (FreeStyle Tika 3 Sensor) [facility] USE DIRECTED TO TEST BLOOD SUGAR CHANGE [...] MOUTH EVERY MORNING 90 capsule 1 Active amoxicillin-cla vulanate (Augmentin) 875-125 MG tabletIndicatio ns:Chronic frontal sinusitis,Acute otitis externa, unspecified laterality, unspecified type Take 1 tablet by mouth 2 times daily for 7 days. 14 tablet 025 2024 Active ketoconazole (NIZOral) 2 % shampooIndicati ons:Seborrheic dermatitis Apply topically 2 (two) times a week. 120 mL Active clotrimazole (Gyne-Lotrimin) 1 % vaginal creamIndication s:Yeast infection Insert 1 applicator into the vagina in the evening for 7 days. 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 Miller -Continues with current med regimen: -Januvia 25mg PO daily -Tuojeo insulin 28 units subcutaneous daily -Lispro AC per SS -Dexcom ordered and managed through [facility] -Strongly encourage pt to schedule follow [...] remission 09/02/2018 Coronary artery disease invo lving [place] coronary artery of [place] heart with unstable angina pectoris 06/03/2018 Calculus of kidney 06/03/2018 Atypical chest pain 06/03/2018 Moderate mitral regurgitation 06/04/2017 Chronic endometritis 11/04/2016 Resolved Problems Problem Noted Date Diagnosed Date Resolved Date Abscess of multiple sites 01/19/2025 Acute hyperglycemia 01/19/2025 01/25/20 Carpal tunnel syndrome of left wrist 01/19/2025 [...] Encounters Date Type Department Care Team Description 01/26/2025 Results Follow-Up [facility] [address] [place] [address] Faith Mason MD POCT Glucose, POCT HGB A1C, Bacterial Vaginosis, Chlamydia/N. Gonorrhoeae RNA, TMA, Vaginal 01/25/2025 1:00 PM EDT Office Visit [facility] [address] [place] [address] [place] DDS Bleeding post tooth extraction (Primary Dx) 01/24/2025 1:00 PM EDT Office Visit [address] [phone] Faith Mason MD Mouth bleeding (Primary Dx); Vaginal discharge; Pelvic pain; Chronic frontal sinusitis; Great toe pain, right; Diabetic polyneuropathy associated with type 2 diabetes mellitus ([facility]); Acute otitis externa, unspecified laterality, unspecified type; Seborrheic dermatitis; Postmenopausal bleeding 01/24/2025 Travel 01/19/2025 1:30 PM EDT Office Visit [facility] [address] [place] [address] [place] DDS Severe dental caries (Primary Dx); Pain, dental 01/17/[address] [address] Faith Mason MD 01/16/2025 Patient Outreach [address] [address] Faith Mason MD Pre-visit Planning (SDOH screening negative and tobacco screening negative) 01/10/[address] [address] Faith Mason MD Durable Medical Equipment 12/31/2024 Refill [facility] [address] [place], [place] [phone] Faith Mason MD Type 2 diabetes mellitus with hyperglycemia, with long-term current use of insulin ([facility]) 12/30/[address] [address] Faith Mason MD Chart Prep 12/27/2024 Travel 12/22/[address] [address] Faith Mason MD Appointment Request 12/08/2024 Refill [facility] [address] [place] [address] Faith Mason MD 12/07/2024 Refill [facility] [address] [place] [address] Faith Mason MD 12/05/2024 Refill [facility] [address] [place] [address] Faith Mason MD Right arm pain; Numbness and tingling of right arm 11/18/2024 Refill [facility] [address] [place] [address] Faith Mason MD Right arm pain; Numbness and tingling of right arm 11/03/2024 Telephone [facility] [address] [place] [address] Reinier [place]en[place] DDS from Last 3 Months Immunizations Immunization Administration [...] Sign Reading Time Taken Comments Blood Pressure 140/76 01/25/2025 1:11 PM EDT Pulse 70 01/25/2025 1:11 PM EDT Temperature 35.6 C (96 F) [...] Colonoscopy 1966 Dental Prophylaxis 1966 FIT 1966 Sigmoidoscopy 1966 Disability Screening 1966 Diabetes: Foot Exam 1976 Eye Exam 1976 Alcohol/Substance Use Screening 1978 DTaP/Tdap/Td Vaccines (1 - Tdap) 1985 Hepatitis B Vaccines (2 of 3 - 19+ 3-dose series) 12/10/2018 11/12/2018 Pneumococcal Vaccine: 50+ Years (2 of 2 - PCV) 04/05/2020 04/05/2019 Diabetes: Urine Protein Screening 07/23/2021 07/23/2020, 07/23/2020 Zoster Vaccines (1 of 2) 05/12/2024 FOBT 09/16/2024 09/17/2023 Depression Screening 11/23/2024 11/24/2023, 11/24/19 Lipid Panel 11/30/2024 12/01/2023, 09/09/2022 COVID-19 Vaccine ( - season) 2025 05/13/2023, 05/07/2021, 07/05/2020 Influenza Vaccine (#1) 2025 , 02/27/2023, 02/11/2019, Additional history exists Dental Oral Exam 03/23/2025 09/20/2024, 06/29/2008 Diabetes: Hemoglobin A1C 04/25/2025 025, 11/23/2024, 03/17/2024, Additional history exists Mammogram 07/18/2025 07/18/2024, 06/26, 02/01/2020 Dental X-Ray: Bitewings 09/21/2025 09/21/19 25, 01/22/2023, 06/24/2019, Additional history exists SDOH Screening 01/16/2026 01/16/2025 Tobacco Screening 01/25/2026 01/25/2025 Colorectal Cancer Screening 09/16/2026 FIT DNA/Cologuard 09/16/2026 [...] Associated Diagnosis Comments NO CHARGE VISIT Routine 01/25/2025 1:00 PM EDT CHLAMYDIA/N. GONORRHOEAE RNA, TMA, UROGENITAL Routine 01/24/2025 2:02 PM EDT Vaginal discharge BACTERIAL VAGINOSIS PANEL Routine 01/24/2025 2:01 PM EDT Vaginal discharge POCT GLYCATED HEMOGLOBIN, TOTAL Routine 01/24/2025 1:52 PM EDT Diabetic polyneuropathy associated with type 2 diabetes mellitus ([facility]) POCT GLUCOSE Routine 01/24/2025 1:51 PM EDT Diabetic polyneuropathy associated with type 2 diabetes mellitus ([facility]) CASE PRESENTATION, DETAILED AND EXTENSIVE TREATMENT PLANNING [...] Recently Relevant to Health Maintenance Results * Chlamydia/N. Gonorrhoeae RNA, TMA, Vaginal (01/24/2025 2:02 PM EDT) CT PCR NOT DETECTED Not Detect. [facility] Comment:A not detected test result does [...] psychologicalconsequences. NG PCR NOT DETECTED Not Detect. [facility] Comment:A not detected test result does [...] medical, social or psychologicalconsequences. Swab (Vaginal Swab) 01/24/2025 2:02 PM EDT 01/24/2025 5:56 PM EDT Faith No MD LAB MICROBIOLOGY - [facility] ORDERABLES Final Result [facility] [address] [place] [phone] * (ABNORMAL) Bacterial Vaginosis (01/24/2025 2:01 PM EDT) TRICHOMONAS VAGINALIS DETECTION BY PCR NOT DETECTED Not Detect [facility] BACTERIAL VAGINOSIS DETECTION BY PCR NEGATIVE Negative [facility] Comment:The BV organism targ ets of [...] GROUP DETECTION BY PCR DETECTED(A) Not Detect [facility] Kym glab krusei PCR NOT DETECTED Not Detect [facility] Swab Vaginal structure / Unknown 01/24/2025 2:01 PM EDT 01/24/2025 5:56 PM EDT Faith No MD LAB MICROBIOLOGY - [facility]ER[facility] ORDERABLES Final Result [facility] [address] [place] [phone] * (ABNORMAL) POCT HGB A1C (01/24/2025 1:52 PM EDT) Hemoglobin A1C 9.7(A) 4.0 - 5.7 % QC Media Lot # [id number] Lot# Expiration Date [id number] Blood 01/24/2025 1:52 PM EDT Result [facility] Faith No MD POINT OF CARE TEST EN TER/EDIT ORDERABLES Final Result * (ABNORMAL) POCT Glucose (01/24/2025 1:51 PM EDT) Glucose Blood, POC 351(A) 60 - 200 mg/dL QC Media Lot # [id number] Lot# Expiration Date ,726 Blood Capillary blood specimen / Unknown 01/24/2025 1:51 PM EDT Result [facility] Faith No MD POINT OF CARE TEST EN TER/EDIT ORDERABLES Final Result * (ABNORMAL) HM Hemoglobin A1c (11/23/2024) Hemoglobin A1C 8.5(A) 4.0 - 5.7 % Narrative Brea Becerra - 11/23/2024 See labs under care everywhere with matching A1c date us Historical Provider HEALTH MAINTENANCE Final Result * HPV DNA, Low/High Risk (08/23/2024 12:00 AM EDT) HPV High Risk Negative Negative [facility] HPV Genotype 16 Negative Negative [facility] HPV Genotype 18 Negative Negative [facility] Comment:HPV testing performe d at [facility] (CLIA#[id number]), [address] [place] [address].Testing for HPV was performed using the [employer]system. The presence of HPV in the female [...] No MD LAB BLOOD ORDERABLES Final Result [facility] [address] [place] [phone] * Pap Smear (08/23/2024 12:00 AM EDT) Swab 08/23/2024 08/24/2024 6:0 0 AM EDT Narrative [facility] - 08/29/2024 1:23 PM EDT ----- ------- Name: Sarah Dixon Age/Sex: 59/F : 1965 Unit#: [id number] Attend Dr: Faith Mason MD Re08/23/24 Status: DEP REF Location: HO.HHCLNP Disch: ----- ------- SPEC : [id number] RECD: 08/24/24 STATUS: FELA UMAÑA NUM: [id number] NADJA: 08/23/24-[address]: Faith Mason MD ENTERED: 08/24/24 SP TYPE: Pap Smr OTHR DR: ORDERED: Pap Smear Interpretation Satisfactory for evaluation. Negative for intraepithelial lesion or malignancy. No endocervical cells seen. HPV High Risk: Negative HPV Genotyping 16: Negative HPV Genotyping 18: Negative Clinical Information LMP: Unknown date Previous PAP test: Unknown date, WNL Material Received Cervix ----- ------- Signed (signature on file) FREDRICK Doan ([facility]) 08/29/24 1323 ----- ------- END OF REPORT us Faith No MD LAB CYTOLOGY ORDERABL ES Final Result [facility] [address] [place] [address] [phone] * BI Mammogram Screening Tomosynthesis Bilateral (07/18/2024 11:24 AM EST) Anatomical Region Laterality Modality Breast Bilateral Mammography 07/18/2024 11:2 4 AM EST Narrative 07/23/2024 12:27 PM EST [facility] [address] [place] [address] Mammography Report Signed Patient: Sarah Dixon MR#: [id number] : 1965 Acct:[id number] Age/Sex: 59 / F ADM Date: 07/18/24 Loc: HO.MAMMO Attending Dr: Faith No MD Ordering Physician: Faith Mason MD Results: 1Negative Date of Service: 07/18/24 Follow Up: 1 Year From Orig inal Mammogram Procedure(s): MM tomosynthesis screening BI Accession Number(s): [id number] cc: Faith Mason MD EXAMINATION: MM SCREENING [...] 07/23/24 1223 DD/ 1124 TD/TT: 07/18/24 1124 Dairy Farm Worker: Procedure Note Donotuseinterpreter, Image - 07/23/2024 [facility] [address] [place] [address] Mammography Report Signed Patient: Vidal Dixon#: [id number] : 1965Acct:[id number] Age/Sex: 59 / FADM Date: 07/18/24 Loc: HO.MAMMO Attending Dr: Faith No MD Ordering Physician: Faith Mason MDResults: 1Negative Date of Service: 07/18/24Follow Up: 1 Year From Orig inal Mammogram Procedure(s): MM tomosynthesis screening BI Accession Number(s): [id number] cc: Faith Mason MD EXAMINATION: MM SCREENING [...] 07/23/24 1223 DD/ 1124 TD/TT: 07/18/24 1124 Dairy Farm Worker: MariamElda No MD IMG BI PROCEDURES Yoshi telma Result - Final * Hepatitis Panel, General (01/26/2024 2:16 PM EDT) Hepatitis A IgM REACTIVE (Abnormal) Nonreactive [facility] Comment:For additional infor mation, please refer tohttp://Blueknow/faq/GCO208(This link is being provided for informational/educational purposes only.)THIS TEST PERFORMED AT:[facility] [place] [phone] DIRECTOR: EVITA ALICEA MD ~Hepatitis B Surface Antibody REACTIVE (Abnormal) Nonreactive [facility] Comment:THIS TEST PERFORMED AT:[facility] [address] [phone] DIRECTOR: EVITA ALICEA MD Hepatitis B Core Antibody NON-REACTI VE Nonreactive [facility] Comment:For additional infor mation, please refer tohttp://Blueknow/faq/OWP843(This link is being provided for informational/educational purposes only.)THIS TEST PERFORMED AT:[facility] [id number] [place] [phone] DIRECTOR: EVITA ALICEA MD Hepatitis C Antibody NON-REACTI VE Nonreactive [facility] Comment:HCV antibody was non -reactive. There is no laboratoryevidence of HCV infection.In most cases, no further action is required. However,if recent HCV exposure is suspected, a test for HCV RNA(test code 20219) is suggested.For additional information please refer tohttp://Blueknow/faq/PWH55u8(This link is being provided for informational/educational purposes only.)THIS TEST PERFORMED AT:[facility] [id number] [place] [phone] DIRECTOR: EVITA ALICEA MD Hepatitis B Surface Ag NON-REACTI VE Negative [facility] Comment:For additional infor mation, please refer tohttp://[employer]/faq/SKV272(This link is being provided for informational/educational purposes only.)THIS TEST PERFORMED AT:[facility] [address] [place] [phone] DIRECTOR: EVITA ALICEA MD Blood 01/26/2024 2:16 PM EDT 01/26/2024 4:08 PM EDT Faith No MD LAB BLOOD ORDERABLES Final Result [facility] [address] [place] [phone] * HIV-1/2 Antigen and Antibodies, Fourth Generation, with Reflexes (01/26/2024 2:16 PM EDT) HIV AB/AG NON-REAC TIVE Nonreactive [facility] Comment:HIV-1 antigen and HI V-1/HIV-2 [...] for this purpose.For additional information please refer tohttp://[employer]/faq/KVZ217(This link is being provided for informational/educational purposes only.)The performance of this assay has not been clinicallyvalidated in patients less than 2 years old.THIS TEST PERFORMED AT:[facility] [address] [phone] DIRECTOR: EVITA ALICEA MD Blood Venous blood specimen / Unknown 01/26/2024 2:16 PM EDT 01/26/2024 4:08 PM EDT us Faith No MD LAB BLOOD ORDERABLES Final Result Performing Organization Address [facility] Co de Phone Number [facility] [address] [place] [phone] * (ABNORMAL) Lipid Panel with Reflex to Direct LDL (12/01/2023 1:06 PM EDT) Triglycerides 81 <150 mg/dL [facility] Comment:Desirable Triglyceri de: less than 150 mg/dLBorderline High Triglyceride 150-199 mg/dLHigh Triglyceride: 200-499 mg/dLVery High Triglyceride: greater than or equal to 5OO mg/dL Cholesterol 77 <200 mg/dL [facility] Comment:Desirable Cholestero l: less than 200 mg/dLBorderline High Cholesterol: 200-239 mg/dLHigh Cholesterol: greater than 239 mg/dL LDL Cholesterol Calculated 30 <100 mg/dL [facility] Comment:Desirable LDL: less than 100 mg/dLNear Optimal/Above Optimal LDL: 110- 129 mg/dLBorderline High LDL: 130-159 mg/dLHigh LDL: 160-189 mg/dLVery High LDL: greater than or equal to 190 mg/dL HDL Cholesterol 31(L) >40 mg/dL [facility] Comment:Desirable HDL: great er than 40 mg/dL Note: This HDL assay may give artificially low results in patients with liver disease. Blood 12/01/2023 1:06 PM EDT 12/01/2023 1:11 PM EDT us Faith No MD LAB BLOOD ORDERABLES Final Result [facility] [address] [place] [phone] * Cologuard?? colon cancer screening (09/17/2023 12:00 PM EDT) Cologuard Result Negative Negative 09/25/19 10:09 AM EDT [facility] (CLIA #:[id number]) Comment: NEGATIVE TEST RESULT. A negative Cologuard [...] (Kacey Jalloh al, N Engl J Med 2014;370(14):9973-1586) The normal value (reference range) for this assay is negative. COLOGUARD RE-SCREENING RECOMMENDATION: Periodic colorectal cancer screening is an important part of preventive healthcare for asymptomatic individuals at average risk for colorectal cancer. Following a negative Cologuard result, the [place] [employer] Society and U.S. Multi-Society Task Force screening guidelines recommend a Cologuard re-screening interval of 3 years. References: [place] [employer] Guideline for Colorectal Cancer Screening: https://www.cancer.org/cancer/vfuwo-lqjiyg-mbujpc/zmjczxeer-choxlnmqt-ybprvha/ac s-rec ommendations.html.; Maxi DK, Robinson CR, Barry TateK, Colorectal Cancer Screening: Recommendations for Physicians and Patients from the U.S. Multi-Society Task Force on Colorectal Cancer Screening , Am J Gastroenterology 2017; 112:0778-0927. TEST DESCRIPTION: Composite algorithmic analysis of stool [...] (Kacey Jalloh al, N Engl J Med 2014;370(14):4377-4243.) Cologuard may produce a false negative or false positive result (no colorectal cancer or precancerous polyp present at colonoscopy follow up). A negative Cologuard test result does not guarantee the absence of CRC or advanced adenoma (pre-cancer). The current Cologuard screening interval is every 3 years. ([place] [employer] Society and U.S. Multi-Society Task Force). Cologuard performance data in a 10,000 patient pivotal study using colonoscopy as the reference method can be accessed at the following location: www.Cloutex.i-Nalysis/results. Additional description of the Cologuard test process, warnings and precautions can be found at www.Orbit Minder Limitedrd.com. Stool specimen (specimen) 09/17/2023 12:00 PM EDT 09/18/2023 10:51 AM EDT us Faith No MD LAB MOLECULAR DIAGNOS TICS ORDERABLES Final Result [facility] (CLIA #:[id number]) [place] [address], * MICROALBUMIN, RANDOM (07/23/2020 9:00 AM EST) Creatinine Urine 140.39 mg/dL [facility] Microalbum/Creati nine Ratio Ur 419.5 ug/mg cr [facility] Comment: Albumin/Creatinine Ratio Reference Ranges: Normal: < 30 ug/mg creatinine Microalbuminuria: 30 - 300 ug/mg creatinine Clinical Albuminuria: > 300 ug/mg creatinine Microalbumin Urine 589.0 mg/L [facility] 07/23/2020 9:00 AM EST us Historical Provider HISTORICAL/NON ORDERABLE LABS Final Result [facility] [address] from Last 3 Months or Most Recently Relevant to Health Maintenance Insurance [place] [address] [facility] C3 DENTAL-[facility] MEDICAID STAND ADULT Care Teams Chlorinator Relationship Specialty Start Date End Date Faith Mason MD [address] [facility] [place] [address] PCP - General Family Medicine 04/12/19 Linda Peralta Vp Of Customer Experience StrategyThird Steel Pourer 06/08/24
--- OUTSIDE RECORDS SUMMARY | 2025-01-31 16:41 | XMS_ITS | Encounter Summary ---
Author Organization [employer] Address [address] [facility] 7t [place] [address] Care Team Providers Care Cost Engineer Name Role Phone Faith Mason MD Primary Care Provide r Reason for Visit * Reason Comments Med Refill Encounter Details Date Type Department Care Team ([facility] st Contact Info) Description 09/25/2024 Refill [facility] [address] [place], [place] [phone] Faith Mason MD [address] [place], [place] [phone] Essential hypertension Social History Tobacco Use Types [...] as of this encounter Care Teams Cost Engineer Relationship Specialty Start Date End Date Faith Mason MD [address] [place] [address] PCP - General Family Medicine 04/12/19 Linda Peralta Rn PsychBusiness School Dean 06/08/24 documented as of this encounter
--- OUTSIDE RECORDS SUMMARY | 2025-01-31 16:41 | XMS_ITS | Encounter Summary ---
Author Organization [employer] Address [address] [facility] [address]t [place] [address] Care Team Providers Care Ostomy Rn Name Role Phone Faith Mason MD Primary Care Provide r Encounter Details Date Type Department Care Team (Late st Contact Info) Description 07/17/2023 Telephone [facility] [address] [place], [place] [phone] Faith Mason MD [address] [place], [place] [phone] Social History Tobacco Use Types Packs/Day Years [...] the past 12 months, has t he [email or web address], oil or water company threatened to shut [...] documented as of this encounter Care Teams Ostomy Rn Relationship Specialty Start Date End Date Faith Mason MD [address] [place] [address] PCP - General Family Medicine 04/12/19 Linda Peralta Neon Sign MechanicDelivery Tech 06/08/24 documented as of this encounter
--- OUTSIDE RECORDS SUMMARY | 2025-01-31 16:41 | XMS_ITS | Encounter Summary ---
Author Organization [employer] Address [address] [facility] [address]t [place] [address] Care Team Providers Care Lime Plant Operator Name Role Phone Faith Mason MD Primary Care Provide r Reason for Visit * Reason Comments Med Refill Encounter Details Date Type Department Care Team ([facility] st Contact Info) Description 11/18/2024 Refill [facility] [address] [place], [place] [phone] Faith Mason MD [address] [place], [place] [phone] Right arm pain; Numbness and tingling of [...] documented as of this encounter Care Teams Lime Plant Operator Relationship Specialty Start Date End Date Faith Mason MD [address] [place] [address] PCP - General Family Medicine 04/12/19 Linda Peralta Cardiopulmonary TechnicianHeart Surgeon 06/08/24 documented as of this encounter
--- OUTSIDE RECORDS SUMMARY | 2025-01-31 16:41 | XMS_ITS | Encounter Summary ---
Author Organization [employer] Address [address] [facility] [address]t [place] [address] Care Team Providers Care Hand Worker Name Role Phone Faith Mason MD Primary Care Provide r Reason for Visit * Reason Comments Med Refill Encounter Details Date Type Department Care Team ([facility] st Contact Info) Description 08/11/2023 Refill [facility] [address] [place], [place] [phone] Faith Mason MD [address] [place], [place] [phone] Social History Tobacco Use Types Packs/Day Years [...] as of this encounter Care Teams Hand Worker Relationship Specialty Start Date End Date Faith Mason MD [address] [place] [address] PCP - General Family Medicine 04/12/19 Linda Peralta Product Inspection SupervisorFish Machine Feeder 06/08/24 documented as of this encounter
--- OUTSIDE RECORDS SUMMARY | 2025-01-31 16:41 | XMS_ITS | Encounter Summary ---
Author Organization [employer] Address [address] [facility] 7t [place] [address] Care Team Providers Care Buck Swamper Name Role Phone Faith Mason MD Primary Care Provide r Reason for Visit * Reason Comments Med Refill Encounter Details Date Type Department Care Team ([facility] st Contact Info) Description 04/05/2024 Refill [facility] [address] [place], [place] [phone] Faith Mason MD [address] [place], [place] [phone] Atrial flutter, unspecified type (CMS/HCC); Diabetic polyneuropathy [...] documented as of this encounter Care Teams Buck Swamper Relationship Specialty Start Date End Date Faith Mason MD [address] [place] [id number] PCP - General Family Medicine 04/12/19 Linda Peralta Metals Sales RepresentativeSole Rounding Machine Operator 06/08/24 documented as of this encounter
--- OUTSIDE RECORDS SUMMARY | 2025-01-31 16:41 | XMS_ITS | Encounter Summary ---
Author Organization [employer] Address [address] [facility] 7t [place] [address] Care Team Providers Care Line Therapist Name Role Phone Faith Mason MD Primary Care Provide r Reason for Visit * Reason Onset Date Comments FYI 08/13/2023 Encounter Details Date Type Department Care Team ([facility] st Contact Info) Description 08/13/2023 Telephone [facility] MEDIC[facility] [address] [place], [place] [phone] Faith Mason MD [address] [place], [place] [phone] FYI Social History Tobacco Use Types Packs/Day [...] of today. Any questions contact Tameka at [phone] documented in this encounter Plan of Treatment Not on file documented as of this encounter Visit Diagnoses Not on filedocumented in this encounter Additional Health Concerns Assessment Noted Time PHQ-9 Depression Total Score: 14 023 2:21 PM EDT documented as of this encounter Care Teams Line Therapist Relationship Specialty Start Date End Date Faith Mason MD [address] [place] [address] PCP - General Family Medicine 04/12/19 Linda Peralta Gear Cutting Machine Set Up OperatorAnalysis Reporting Developer 06/08/24 documented as of this encounter
--- OUTSIDE RECORDS SUMMARY | 2025-01-31 16:41 | XMS_ITS | Encounter Summary ---
Author Organization [employer] Address [address] [facility] [address]t [place] [address] Care Team Providers Care Cross Roller Name Role Phone Faith Mason MD Primary Care Provide r Encounter Details Date Type Department Care Team ([facility] st Contact Info) Description 03/08/2024 Orders Only [facility] MEDICINE [address] [place], [place] [phone] Faith Mason MD [address] [place], [place] [phone] Social History Tobacco Use Types Packs/Day Years [...] documented as of this encounter Care Teams Cross Roller Relationship Specialty Start Date End Date Faith Mason MD [address] [place] [address] PCP - General Family Medicine 04/12/19 Linda Peralta [employer] WorkerAntique Automobiles Repairer 06/08/24 documented as of this encounter
[2025-02-01 03:43] LABS: HBS Num1 23.53 mIU/mL (0-7.99); HBc Num1 0.15 S/CO (0.00-0.79); HBsAGNum1 0.41 S/CO (0.00-0.99); HIV Num 1 0.05 S/CO (0.00-0.99); Hepatitis A Antibody IgM 0.20 Index (0-0.79); Hepatitis B Surface Antigen Negative (Negative); ~HepC Num1 0.21 S/CO (0.00-0.79); ~Hepatitis A Antibody IgM Nonreactive (Nonreactive); ~Hepatitis B Surface Antibody REACTIVE (Nonreactive); ~Hepatitis C Antibody Nonreactive (Nonreactive)
== END 2025-01-31 14:01 | disposition home or self-care (01) ==
LOC: HO.HHCL 14:00
PROVIDERS: PCP Internal Medicine; Visit Provider Internal Medicine
DX: N89.8 Other specified noninflammatory disorders of vagina (principal); Z11.4 Encounter for screening for human immunodeficiency virus [HIV]; Z01.84 Encounter for antibody response examination; Z11.59 Encounter for screening for other viral diseases
CPT/HCPCS: 36415; 86592; 86704; 86706; 86709; 86803; 87340; 87389

== ENCOUNTER 2025-02-23 10:39 | Outpatient (AMB) | payer MEDICAID, SELFPAY ==
--- NOTE | 2025-02-23 10:41 | A.OFFVIS_ITS ---
Vital Signs 3 02/23/25 10:44 Height 5 ft 6 in Weight 216 lb 0.848 oz BMI 34.9 BP 112/74 Blood Pressure Location Rt brachial Position Sitting Pulse 70 Pulse Source Pulse Oximeter Pulse Oximetry (%) 97 Oxygen Delivery Method Room Air Intake Visit Reasons: DM2 Intake Note: Patient presents today for a follow-up on Type 2 Diabetes Mellitus: Last Diabetic Eye exam: 08/2024, [facility] Last Podiatry Exam: Does not see a Longitudinal Float Operator Most recent HbA1c: 9.8%, 02/22/2025 Random Glucose- 289 mg/dL, Today, Lifeguard Required: Yes Lifeguard Language: Commercial Sales Representative Services: Lifeguard Offered & Declined (DR French Speak Fluent Telugu) Accompanied by: Other Relationship Allergies No Known Allergies Allergy (Verified 02/23/25 10:51) Medication List - Last Reconciled 02/23/25 by Yeset Manolo Quinn MD amlodipine 10 mg PO DAILY apixaban (Eliquis) 5 mg PO BID 90 days atorvastatin 40 mg PO DAILY@1200 blood-glucose meter (FreeStyle Lite Meter kit) As directed blood-glucose sensor (FreeStyle Tika 3 Plus Sensor device) As directed every 15 days brimonidine 0.2% 1 drp ophthalmic-Left TID calcium polycarbophil (Fiber-Lax) 625 mg PO DAILY cholecalciferol (vitamin D3) (Vitamin D3) 50 mcg PO DAILY clopidogrel (Plavix) 75 mg PO DAILY FreeStyle Lite Strips (blood sugar diagnostic) TEST BLOOD SUGAR FOUR TIMES DAILY prn sensor failure or to confirm sensor readings NS glucose (Dex4 Glucose) 16 grams (4 x 4 gram) PO Q15M PRN 30 days MDD 16 tablets hydralazine 1 tab PO TID@0900,1200,1800 insulin glargine U-300 conc (Toujeo SoloStar U-300 Insulin) 18 units (0.06 mL) subcut BEDTIME 30 days insulin lispro 10 - 16 units (0.1 - 0.16 mL) subcut DIRECTED 30 days ketorolac 0.5% 1 drp ophthalmic (eye) TID lancets (TRUEplus Lancets) TEST BLOOD SUGAR FOUR TIMES DAILY prn to confirm sensor reading or sensor failure levothyroxine 25 mcg PO DAILY@0600 metoprolol tartrate 12.5 mg (1/2 x 25 mg) PO BID pen needle, diabetic As directed 4 times a day sevelamer carbonate 800 mg PO TIDAC HPI Comments Details: HPI: DM Patient is a?59-year-old female with DM type 2 and thyroid nodule, who presents for continued management of her diabetes. Past medical history includes :? diabetes type 2, end-stage renal disease,dialysis MWF Micro and macrovascular complications: end-stage renal disease, retinopathy with current anti VEGF therapy Previous medication: Degludec diarrhea, Januvia 25 mg 08/2024 Diabetes medications: ? Toujeo 18- Variates dosis based on BG, maximum dose adjusted 30 Humalog sliding scale 80-150 10 units 151-200 12 units 201-250 14 units Over 250 16 units Micro and macrovascular complications: end-stage renal disease, retinopathy with current anti VEGF therapy Ophthalmology evaluation: last eye appointment 12/02/23 Has had retinal injections. Hyperglycemia: + polyuria Last LDL 30 12/15 Exercise: limited Holter Technician - CDE education: sees fire crew specialist at dialysis Longitudinal Float Operator: self care Denies numbness, tingling, cramping Thyroid Patient had a CT cervical spine 08/02/2023 which identified a 1.5 cm nodule in the left thyroid lobe. Subsequently thyroid ultrasound done 03/08/2024 showed a left midpole nodule 2.1 cm in the maximum dimension solid, hypoechoic TR 4 category. Another subcentimeter left upper pole cyst noted. Patient has a history of hypothyroidism on levothyroxine 25 mcg daily, last TSH from January 2024 was normal. 07/27/2024: Underwent FNA biopsy of the left midpole 2.1 cm nodule which came back as nondiagnostic, [place] category 1. Patient currently denies heat or cold intolerance, diarrhea or constipation, hair loss, palpitation, anxiety, weight changes, mood changes, , changes in appearance of eyes or vision changes, tremors, increased diaphoresis or dry skin. Complains of acid reflux and intermittent dysphagia. Patient denies pain on swallowing or difficulty breathing. Reports some voice hoarsness. Patient denies any history of childhood neck radiation. Denies having ever used lithium, amiodarone or biotin supplements. Patient denies any family history of thyroid cancer or thyroid disease. Never smoker Interval history 02/23/2025 - Patient has been using insulin but reports that blood sugar levels remain high. - Long-acting insulin Toujeo is used daily, with variable dosing based on blood glucose levels. - Currently administering 18 units of Toujeo; has previously used 28 and 32 units. - Reports frequent blood sugar levels above 250 mg/dL. - Experienced two episodes of hypoglycemia during the night in the past week, around 1-2 AM, attributed to inadequate food intake. - Uncertain about past medications but denies taking weight loss drugs. - Current weight stable between 211-220 lbs for over six months. - Does not engage in regular exercise but is scheduled for cardiovascular and pulmonary exercises. - Reports poor dietary habits due to limited mobility and reliance on others for meals. - Reports A1c levels have increased from 8.0% in June to higher levels currently. Physical exam General: Well appearing. NAD. Eyes: No conjunctival injection, not lid lag or proptosis CV: RRR, no murmur. No edema. Preserved pulses 1+ bilateral Resp:Lungs clear to auscultation bilaterally Abdomen: Soft, nontender. nondistended Extremities/Neuro: No weakness or tremor of outstretched hands Diabetic Foot Exam: Normal sensation to monofilament exam bilaterally Labs w 01/26/24 14:53 04/25/24 11:35 04/27/24 11:46 04/28/24 07:26 04/29/24 07:52 05/01/24 06:34 09/14/24 00:41 WBC (4.8-10.8 X10^3/uL) 7.7 9.5 5.9 6.7 4.9 7.1 7.9 RBC (4.20-5.50 X10^6/uL) 3.47 L 2.83 L 2.49 L 2.40 L 2.41 L 2.58 L 3.32 L Hgb (12.0-16.0 g/dL) 10.9 L 9.4 L 8.1 L 7.8 L 8.0 L 8.3 L 10.2 L Hct 32.9 L 27.5 L 24.7 L 24.2 L 22.8 L 24.3 L 31.2 L Today Random glucose 289 A1c 9.8%-previously 8.0 on June 2024 CGM data Interpretation: Persistent hyperglycemia in the setting of dietary noncompliance and inappropriate insulin timing. Discussed with the patient and provided a new sliding scale with more optimization potentially in the future based on results. 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 Uncontrolled type 2 diabetes mellitus with hyperglycemia, with long-term current use of insulin Hidradenitis suppurativa Pneumonia Type 2 diabetes mellitus with hyperglycemia Paroxysmal atrial flutter Dysphonia Chronic cough Urinary frequency Dyspnea on exertion Unstable gait Asthma Chronic low back pain without sciatica Osteoarthritis of both knees Kidney stones Depression AMARJIT (obstructive sleep apnea) Normocytic anemia ESRD needing dialysis CHF (congestive heart failure) Obesity due to excess calories CAD (coronary artery disease) GERD (gastroesophageal reflux disease) Thyroid disease AV fistula HLD (hyperlipidemia) ESRD (end stage renal disease) T2DM (type 2 diabetes mellitus) End stage renal disease on dialysis Dialysis patient Renal failure (ARF), acute on chronic HTN (hypertension) Surgical History History of cardiac cath History of kidney surgery Hx of cholecystectomy Hx of bone graft Family History Father CVD (cardiovascular disease) Diabetes Mother Diabetes Sister Stomach cancer Social History Household Members: Spouse Household Members Other:: , brother, uncles Housing: House Do you presently have visiting nurse or other home services: Yes Alcohol intake: never Patient Tobacco Use Status: Never used Tobacco Advance Directives Date on File: 02/15/21 service: No Current occupational status: disabled Current occupation: right hand dominant Physical Exam Vital Signs: Last Vital Signs Pulse 70 02/23/25 10:44 BP 112/74 02/23/25 10:44 Pulse Ox 97 02/23/25 10:44 Oxygen Delivery Method Room Air 02/23/25 10:44 BMI result Body Mass Index 34.9 Office Procedures Glucose Monitoring Details Details: See HPI 51384 - Glucose Monitoring, continuous Procedure code (CPT) selection complete Results AMB Hemoglobin A1c 2 AMB Hemoglobin A1c 9.8 % Last Edit by JOY Camargo on 02/23/25 11:02 Results Reviewed Results Reviewed: Laboratory Last Values Glucose (Clinic) 289 mg/dL (60-115) H 02/23/25 10:49 Hgb A1c (Clinic) 9.8 % (4.0-6.0) H 02/23/25 11:01 Assessment & Plan Assessment & Plan (1) Obesity due to excess calories: Code(s): E66.09 - Other obesity due to excess calories Category: Medical Qualifiers: Obesity classification: adult class 2 (BMI 35 - 39.9) Serious obesity comorbidity presence: with serious comorbidity Body mass index: BMI 37.0-37.9 Qualified Code(s): E66.01 - Morbid (severe) obesity due to excess calories; Z68.37 - Body mass index [BMI] 37.0-37.9, adult (2) 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: Code(s): E11.22 - Type 2 diabetes mellitus with diabetic chronic kidney disease; N18.6 - End stage renal disease Category: Medical (3) Uncontrolled type 2 diabetes mellitus with hyperglycemia, with long-term current use of insulin: Code(s): E11.65 - Type 2 diabetes mellitus with hyperglycemia; Z79.4 - terminologist (current) use of insulin Category: Medical (4) Non-toxic multinodular goiter: Code(s): E04.2 - Nontoxic multinodular goiter Category: Medical Plan Type 2 diabetes with complications, ESRD Persistent hyperglycemia in the setting of medication noncompliance and run insulin delivery timing as well as dietary indiscretions. Discussed with the patient that given her ESRD, we have to be careful with insulin doses as we could precipitate hypoglycemia in the insulin doses are too high, and at the same time emphasized the importance of administering insulin prior to meals (15-20 minutes). Discussed with the patient that in order to achieve a better diabetes control, dietary changes she will be implemented. Plan - Increase Toujeo dosage to 20 units based on sensor data showing consistent levels above 250 mg/dL. - Implement a new insulin scale to better manage postprandial blood glucose levels. - Encourage consistent timing for insulin administration, especially before meals. - Consider insulin pump as a future option if forgetfulness with insulin administration continues. - Referral for sleep apnea evaluation due to past use of CPAP and current symptoms of fatigue. - Screen for potential bariatric surgery candidacy, considering complex medical history. - Recommend hydration and frequent blood glucose monitoring if hyperglycemia persists above 250 mg/dL. - Encourage dietary modifications, including the use of pre-cooked rice and reduction in carbohydrate intake. - Advise daily moisturizing for dry skin, likely due to renal dysfunction. Orders: Orders 2 TSH reflex Free T4 Today E04.2 - Nontoxic multinodular goiter AMB Glucose Monitoring Today E11.22 - Type 2 diabetes mellitus with diabetic chronic kidney disease, N18.6 - End stage renal disease AMB Hemoglobin A1c Today E11.65 - Type 2 diabetes mellitus with hyperglycemia, Z79.4 - terminologist (current) use of insulin Referrals 2 Sleep Medicine Referral E66.01 - Morbid (severe) obesity due to excess calories, Z68.37 - Body mass index [BMI] 37.0-37.9, adult Medical Weight Management Referral E66.01 - Morbid (severe) obesity due to excess calories, Z68.37 - Body mass index [BMI] 37.0-37.9, adult Podiatry Referral E11.22 - Type 2 diabetes mellitus with diabetic chronic kidney disease, N18.6 - End stage renal disease Patient Instructions: Toujeo 20 units Insulin Dose (units) ? Take 10?15 minutes prior to the meal Blood Sugar Level (mg/dl) Small Meal?(low carb <30g like salad, eggs with meat) Normal Meal?(30?60g like sandwich, chips, meat, small starch portion) Large Meal?(>60g like pizza, lasagna, Mongolian food, meal + dessert) <100 0 2 4 101?150 2 4 6 151?200 4 6 8 201?250 6 8 10 251?300 8 10 12 301?350 10 12 14 351?400 12 14 16 >400 14 16 18 Coding Level of Care Code Est Pt Level 4 (55572) Diagnoses Class 2 severe obesity due to excess calories with serious comorbidity and body mass index (BMI) of 37.0 to 37.9 in adult E66.01; Z68.37 Obesity classification: adult class 2 (BMI 35 - 39.9) Serious obesity comorbidity presence: with serious comorbidity Body mass index: BMI 37.0-37.9 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
[2025-02-23 10:44] VITALS: BP 112/74; PULSE 70; O2SAT 97; BMI 34.9
[2025-02-23 10:55] LABS: Glucose, Whole Blood 289 mg/dL (60-115)
--- OUTSIDE RECORDS SUMMARY | 2025-02-23 12:28 | XMS_ITS | Encounter Summary ---
Author Organization [employer] Address [address] [facility] 7t [place] [address] Care Team Providers Care Organ Pipe Finisher Name Role Phone Faith Mason MD Primary Care Provide r Encounter Details Date Type Department Care Team (Late st Contact Info) Description 07/17/2023 Telephone [facility]INE [address] [place], [place] [phone] Faith Mason MD [address] [place], [place] [phone] Social History Tobacco Use Types Packs/Day Years [...] the past 12 months, has t he [employer], oil or water company threatened to shut [...] documented as of this encounter Care Teams Organ Pipe Finisher Relationship Specialty Start Date End Date Faith Mason MD [address] [place] [address] PCP - General Family Medicine 04/12/19 Linda Peralta Rotary Drum DyerSpot Worker 06/08/24 documented as of this encounter
--- OUTSIDE RECORDS SUMMARY | 2025-02-23 12:28 | XMS_ITS | Encounter Summary ---
Author Organization [employer] Address [address] [facility] [address]t [place] [address] Care Team Providers Care Preschool Substitute Teacher Name Role Phone Faith Mason MD Primary Care Provide r Reason for Visit * Reason Comments Med Refill Encounter Details Date Type Department Care Team ([facility] st Contact Info) Description 11/18/2024 Refill [facility] MEDICINE [address] [place], [place] [phone] Faith Mason MD [address] [place], [place] [phone] Right arm pain; Numbness and tingling of [...] documented as of this encounter Care Teams Preschool Substitute Teacher Relationship Specialty Start Date End Date Faith Mason MD [address] [place] [address] PCP - General Family Medicine 04/12/19 Linda Peralta SonographerMedical Device Assembler 06/08/24 documented as of this encounter
--- OUTSIDE RECORDS SUMMARY | 2025-02-23 12:28 | XMS_ITS | Encounter Summary ---
Author Organization [employer] Address [address] [facility] [address]t [place] [address] Care Team Providers Care Track Production Engineer Name Role Phone Faith Mason MD Primary Care Provide r Reason for Visit * Reason Comments Med Refill Encounter Details Date Type Department Care Team ([facility] st Contact Info) Description 06/24/2023 Refill [facility] MEDICINE [address] [place], [place] [phone] Faith Mason MD [address] [place], [place] [phone] Social History Tobacco Use Types Packs/Day Years [...] documented as of this encounter Care Teams Track Production Engineer Relationship Specialty Start Date End Date Faith Mason MD [address] [place] [address] PCP - General Family Medicine 04/12/19 Linda Peralta Kettle CleanerCoffee Attendant 06/08/24 documented as of this encounter
--- OUTSIDE RECORDS SUMMARY | 2025-02-23 12:28 | XMS_ITS | Encounter Summary ---
Author Organization [employer] Address [address] [facility] 7t [place] [address] Care Team Providers Care Canceling Machine Operator Name Role Phone Faith Mason MD Primary Care Provide r Encounter Details Date Type Department Care Team ([facility] st Contact Info) Description 03/08/2024 Orders Only [facility] MEDICINE [address] [place], [place] [phone] Faith Mason MD [address] [place], [place] [phone] Social History Tobacco Use Types Packs/Day Years [...] documented as of this encounter Care Teams Canceling Machine Operator Relationship Specialty Start Date End Date Faith Mason MD [address] [place] [address] PCP - General Family Medicine 04/12/19 Linda Peralta ChaperonCorporate Relations Director 06/08/24 documented as of this encounter
--- OUTSIDE RECORDS SUMMARY | 2025-02-23 12:28 | XMS_ITS | Encounter Summary ---
Author Organization [employer] Address [address] [facility] 7t [place] [address] Care Team Providers Care Psychologist Private Practice Name Role Phone Faith Mason MD Primary Care Provide r Reason for Visit * Reason Comments Med Refill Encounter Details Date Type Department Care Team ([facility] st Contact Info) Description 02/23/2025 Refill [facility] MEDICINE [address] [place], [place] [phone] Faith Mason MD [address] [place], [place] [phone] Atrial flutter, unspecified type (CMS/HCC) (HCC); Right arm pain; Numbness and tingling of [...] Diagnoses Diagnosis Atrial flutter, unspecified type (CMS/HCC) (HCC) Right arm pain Pain in soft tissues of limb Numbness and tingling of right arm documented in this encounter Additional Health Concerns Assessment Noted Time PHQ-9 Depression Total Score: 6 11/24/19 24 2:35 PM EDT documented as of this encounter Care Teams Psychologist Private Practice Relationship Specialty Start Date End Date Faith Mason MD [address] [place] [id number] PCP - General Family Medicine 04/12/19 Linda Peralta Pr InternshipSap Business Intelligence Consultant 06/08/24 documented as of this encounter
--- OUTSIDE RECORDS SUMMARY | 2025-02-23 12:28 | XMS_ITS | Encounter Summary ---
Author Organization [employer] Address [address] [facility] [address] [place] [address] Care Team Providers Care Car Tester Name Role Phone Faith Mason MD Primary Care Provide r Encounter Details Date Type Department Care Team (Late st Contact Info) Description 02/23/2025 Orders Only GENERIC EXTERNAL DATA DEPARTMENT Provider, [...] Associated Diagnosis Comments GLUCOSE, WHOLE BLOOD Routine 02/23/2025 10:49 AM EDT documented in this encounter Results * (ABNORMAL) Glucose, Whole Blood (02/23/2025 10:49 AM EDT) Glucose, Whole Blood 289(H) 60 - 115 mg/dL [facility] Comment:METER #: [id number] 0Testing performed in the Endocrinology Department [address] , [address], [facility]. 02/23/2025 10:4 9 AM EDT 02/23/2025 10:55 AM EDT us Generic External Data Provider LAB BLOOD ORDERAB LES Final Result [facility] [address] [place] [address] [phone] documented in this encounter Visit Diagnoses Not on filedocumented in this encounter Additional Health Concerns Assessment Noted Time PHQ-9 Depression Total Score: 6 11/24/19 24 2:35 PM EDT documented as of this encounter Care Teams Car Tester Relationship Specialty Start Date End Date Faith Mason MD [address] [place] [address] PCP - General Family Medicine 04/12/19 Linda Peralta Supervisor Phosphorus ProcessingReferral Coordinator 06/08/24 documented as of this encounter
--- OUTSIDE RECORDS SUMMARY | 2025-02-23 12:28 | XMS_ITS | Encounter Summary ---
Author Organization [employer] Address [address] [facility] 7t [place] [address] Care Team Providers Care Radio Journalist Name Role Phone Faith Mason MD Primary Care Provide r Reason for Visit * Reason Comments Med Refill Encounter Details Date Type Department Care Team ([facility] st Contact Info) Description 08/11/2023 Refill [facility] MEDICINE [address] [place], [place] [phone] Faith Mason MD [address] [place], [place] [phone] Social History Tobacco Use Types Packs/Day Years [...] documented as of this encounter Care Teams Radio Journalist Relationship Specialty Start Date End Date Faith Mason MD [address] [place] [address] PCP - General Family Medicine 04/12/19 Linda Peralta Board Mill SupervisorTelevision Announcer 06/08/24 documented as of this encounter
--- OUTSIDE RECORDS SUMMARY | 2025-02-23 12:28 | XMS_ITS | Encounter Summary ---
Author Organization [employer] Address [address] [facility] [address]t [place] [address] Care Team Providers Care Yardage Tufting Machine Operator Name Role Phone Faith Mason MD Primary Care Provide r Reason for Visit * Reason Comments Med Refill Encounter Details Date Type Department Care Team ([facility] st Contact Info) Description 09/25/2024 Refill [facility]INE [address] [place], [place] [phone] Faith Mason MD [address] [place], [place] [phone] Essential hypertension Social History Tobacco Use Types [...] documented as of this encounter Care Teams Yardage Tufting Machine Operator Relationship Specialty Start Date End Date Faith Mason MD [address] [place] [address] PCP - General Family Medicine 04/12/19 Linda Peralta Real Estate SalespersonSole Splitter 06/08/24 documented as of this encounter
--- OUTSIDE RECORDS SUMMARY | 2025-02-23 12:28 | XMS_ITS | Encounter Summary ---
Author Organization [employer] Address [address] [facility] 7t [place] [address] Care Team Providers Care Rotating Equipment Specialist Name Role Phone Faith Mason MD Primary Care Provide r Reason for Visit * Reason Onset Date Comments FYI 08/13/2023 Encounter Details Date Type Department Care Team ([facility] st Contact Info) Description 08/13/2023 Telephone [facility] MEDICINE [address] [place], [place] [phone] Faith Mason MD [address] [place], [place] [phone] FYI Social History Tobacco Use Types Packs/Day [...] of today. Any questions contact Tameka at [phone] documented in this encounter Plan of Treatment Not on file documented as of this encounter Visit Diagnoses Not on filedocumented in this encounter Additional Health Concerns Assessment Noted Time PHQ-9 Depression Total Score: 14 023 2:21 PM EDT documented as of this encounter Care Teams Rotating Equipment Specialist Relationship Specialty Start Date End Date Faith Mason MD [address] [place] [address] PCP - General Family Medicine 04/12/19 Linda Peralta Family DentistTar Processing Technician 06/08/24 documented as of this encounter
--- OUTSIDE RECORDS SUMMARY | 2025-02-23 12:28 | XMS_ITS | Encounter Summary ---
Author Organization [employer] Address [address] [facility] 7t [place] [address] Care Team Providers Care Gauntlet Pairer Name Role Phone Faith Mason MD Primary Care Provide r Encounter Details Date Type Department Care Team ([facility] st Contact Info) Description 08/05/2024 Telephone [facility] MEDICINE [address] [place], [place] [phone] Faith Mason MD [address] [place], [place] [phone] Social History Tobacco Use Types Packs/Day Years [...] documented as of this encounter Care Teams Gauntlet Pairer Relationship Specialty Start Date End Date Faith Mason MD [address] [place] [address] PCP - General Family Medicine 04/12/19 Linda Peralta Director AthleticLunchroom Worker 06/08/24 documented as of this encounter
--- OUTSIDE RECORDS SUMMARY | 2025-02-23 12:28 | XMS_ITS | Encounter Summary ---
Author Organization [employer] Address [address] [facility] 7t [place] [address] Care Team Providers Care Health Care Sanitary Technician Name Role Phone Faith Mason MD Primary Care Provide r Encounter Details Date Type Department Care Team ([facility] st Contact Info) Description 08/05/2024 Telephone [facility] MEDICINE [address] [place], [place] [phone] Faith Mason MD [address] [place], [place] [phone] Social History Tobacco Use Types Packs/Day Years [...] documented as of this encounter Care Teams Health Care Sanitary Technician Relationship Specialty Start Date End Date Faith Mason MD [address] [place] [address] PCP - General Family Medicine 04/12/19 Linda Peralta Dye OperatorSwing Saw Operator 06/08/24 documented as of this encounter
--- OUTSIDE RECORDS SUMMARY | 2025-02-23 12:28 | XMS_ITS | Encounter Summary ---
Author Organization [employer] Address [address] [place] [address] 7t [place] [address] Care Team Providers Care Heel Padder Name Role Phone Faith Mason MD Primary Care Provide r Reason for Visit * Reason Comments Med Change Request Encounter Details Date Type Department Care Team ([facility] st Contact Info) Description 11/28/2022 Refill [facility] MEDICINE [address] [place], [place] [phone] Faith Mason MD [address] [place], [place] [phone] Type 2 diabetes mellitus with hyperglycemia, with long-term current use of insulin ([facility]) Social History Tobacco Use Types Packs/Day [...] hyperglycemia, with long-term current use of insulin (HCC) documented in this encounter Additional Health Concerns Assessment Noted Time PHQ-9 Depression Total Score: 14 023 2:21 PM EDT documented as of this encounter Care Teams Heel Padder Relationship Specialty Start Date End Date Faith Mason MD [address] [place] [address] PCP - General Family Medicine 04/12/19 Linda Peralta Plastic WelderSeismograph Operator 06/08/24 documented as of this encounter
--- OUTSIDE RECORDS SUMMARY | 2025-02-23 12:29 | XMS_ITS | Clinical Summary ---
Author Organization [facility] Address [address] [address] Phone Care Team Providers Care Ocean Freight Forwarder Name Role Phone Ines Zamora MD Primary [...] ACO [facility]3 [facility]CO [facility]3 [facility] [place] [address] [place] [address] C3 ACO C3 [facility] [place] [address] [place] [address] C3 ACO C3 ACO Care Teams Ocean Freight Forwarder Relationship Specialty Start Date End Date Ines Zamora MD [address] [place] [address] [address] [place] [phone] PCP - General Internal Medicine 02/23/19 Additional Source Comments The information contained in this document represents components of the legal health record. It is not the complete legal health record.[facility]
--- OUTSIDE RECORDS SUMMARY | 2025-02-23 12:29 | XMS_ITS | Encounter Summary ---
Author Organization [employer] Address [address] [facility] 7t [place] [address] Care Team Providers Care Email Marketing Processor Name Role Phone Faith Mason MD Primary Care Provide r Reason for Visit * Reason Onset Date Comments Durable Medical Equipment 11/05/2023 Encounter Details Date Type Department Care Team (Late st Contact Info) Description 11/05/2023 Telephone [facility] MEDICINE [address] [place], [place] [phone] Faith Maosn MD [address] [place], [place] [phone] Durable Medical Equipment Social History Tobacco Use [...] 11/05/2023 12:47 PM EDT Silver Mckeon at [facility] calling to request the following [...] as of this encounter Care Teams Email Marketing Processor Relationship Specialty Start Date End Date Faith Mason MD [address] [place] [address] PCP - General Family Medicine 04/12/19 Linda Peralta Anesthesia AssociateSound Equipment Mechanic 06/08/24 documented as of this encounter
--- OUTSIDE RECORDS SUMMARY | 2025-02-23 12:29 | XMS_ITS | Encounter Summary ---
Author Organization [employer] Address [address] [facility] 7t [place] [address] Care Team Providers Care Charge Master Analyst Name Role Phone Faith Mason MD Primary Care Provide r Reason for Visit * Reason Comments Med Refill Encounter Details Date Type Department Care Team ([facility] st Contact Info) Description 04/05/2024 Refill [facility] [address] [place], [place] [phone] Faith Mason MD [address] [place], [place] [phone] Atrial flutter, unspecified type (CMS/HCC); Diabetic polyneuropathy [...] Diagnosis Atrial flutter, unspecified type (CMS/HCC) (HCC) Diabetic polyneuropathy associated with type 2 diabetes mellitus (HCC) documented in this encounter Additional Health Concerns Assessment Noted Time PHQ-9 Depression Total Score: 6 11/24/19 24 2:35 PM EDT documented as of this encounter Care Teams Charge Master Analyst Relationship Specialty Start Date End Date Faith Mason MD [address] [place] [address] PCP - General Family Medicine 04/12/19 Linda Peralta Manager Oracle RetailBrim Rounder 06/08/24 documented as of this encounter
--- OUTSIDE RECORDS SUMMARY | 2025-02-23 12:29 | XMS_ITS | Clinical Summary ---
Author Organization [employer] Address [address] [place] [address] 7[address] [place] [address] Care Team Providers Care Supervisor Grips Name Role Phone Faith Mason MD Primary [...] units) 15 mL 11 08/11/19 24 Active Blood Glucose Monitoring Suppl (FreeStyle [place] Lite) w/Device kitIndications:T ype 2 diabetes mellitus with hyperglycemia, with long-term current use of insulin (HCC) Use to test blood sugar 3 times daily 1 kit 04/01/20 24 Active TRUEplus Lancets 33G miscIndications: Type 2 diabetes mellitus with hyperglycemia, with long-term current use of insulin ([facility]) TEST BLOOD SUGAR THREE TIMES DAILY 100 each 11 09/21/19 24 Active levothyroxine (Synthroid, Levoxyl) 25 MCG tablet TAKE 1 TABLET BY MOUTH EVERY MORNING 90 tablet 3 10/15/19 24 Active omeprazole (PriLOSEC) [address] capsuleIndicatio ns:Gastroesophag eal reflux disease, unspecified whether esophagitis present Take 1 capsule (20 mg) by mouth before breakfast. Do not crush or chew. 30 capsule 11 11/24/19 24 Active insulin glargine (Toujeo Max SoloStar) 300 UNIT/ML injectionIndicat ions:Type 2 diabetes mellitus with hyperglycemia, with long-term current use of insulin ([facility]) INJECT 28 UNITS SUBCUTANEOUSLY EVERY DAY 6 mL 1 01/08/20 24 Active guaiFENesin 200 MG/10ML liquidIndication s:Acute cough Take 10 mL by mouth every 6 (six) hours if needed (take for cough if needed). 236 mL 05/11/20 24 Active brimonidine (AlphaGAN) 0.2 % ophthalmic solution Administer 1 drop into the left eye 3 times daily. 04/12/20 24 Active Continuous Glucose Conference And Event Organiser (FreeStyle Tika 3 [place]) device Use as directed 12/24/19 24 Active [...] eye 3 times daily. 09/09/19 24 Active Acetaminophen Extra Strength 500 MG tabletIndication s:Polyarthralgia TAKE 2 TABLETS BY MOUTH EVERY 8 HOURS NEEDED FOR MILD PAIN 30 tablet 2 05/31/19 25 Active docusate sodium (Colace) 100 MG capsuleIndicatio ns:Other constipation TAKE 1 CAPSULE BY MOUTH TWICE DAILY 180 capsule 07/19/19 25 Active Fiber-Lax 625 MG tabletIndication s:Constipation, unspecified constipation type TAKE 1 TABLET BY MOUTH EVERY MORNING 90 tablet 3 07/26/19 25 Active fluconazole (Diflucan) 150 MG tabletIndication s:Yeast infection Take one tablet then after 72 hours take another tablet 1 tablet 08/25/19 25 Active melatonin 5 MG tabletIndication s:Primary insomnia TAKE 1 TABLET BY MOUTH AT BEDTIME FOR SLEEP 90 tablet 1 09/20/19 25 Active amLODIPine (Norvasc) 10 MG tabletIndication s:Essential hypertension TAKE 1 TABLET BY MOUTH EVERY MORNING 90 tablet 1 09/20/19 25 Active amoxicillin (Amoxil) 500 MG capsuleIndicatio ns:Dental caries Take 4 tabs (2 grams) 1 hour prior to dental procedure 12 capsule 3 09/21/19 25 Active metoprolol tartrate (Lopressor) 25 MG tablet TAKE 1/2 TABLET BY MOUTH TWICE DAILY IN THE MORNING AND EVENING 30 tablet 3 10/28/19 25 Active apixaban (Eliquis) 5 MG tabletIndication s:Atrial flutter, unspecified type (CMS/HCC) (HCC) TAKE 1 TABLET BY MOUTH TWICE DAILY IN THE MORNING AND IN THE EVENING 60 tablet 3 10/28/19 25 Active gabapentin (Neurontin) 300 MG capsuleIndicatio ns:Right arm pain,Numbness and tingling of right arm TAKE 1 CAPSULE BY MOUTH AT BEDTIME 30 capsule 2 12/07/19 25 Active hydrALAZINE (Apresoline) 50 MG tablet Take 1 tablet (50 mg) by mouth 3 times daily. 270 tablet 1 12/09/19 25 Active Alcohol Swabs (Alcohol Prep) 70 % padsIndications: Type 2 diabetes mellitus with hyperglycemia, with long-term current use of insulin (HCC) USE THREE TIMES DAILY DIRECTED 100 each 11 01/03/20 25 Active atorvastatin (Lipitor) 40 MG tablet TAKE 1 TABLET BY MOUTH EVERYDAY AT NOON 90 tablet 1 01/18/20 25 Active D3 Super Strength 50 MCG (2000 UT) capsule TAKE 1 CAPSULE BY MOUTH EVERY MORNING 90 capsule 1 01/18/20 25 Active ketoconazole (NIZOral) 2 % shampooIndicatio ns:Seborrheic dermatitis Apply topically 2 (two) times a week. 120 mL 01/27/20 25 Active sodium chloride (Gaston) 0.65 % nasal spray Administer 1 spray into each nostril if needed for congestion. 30 mL 12 02/10/20 24 025 amoxicillin-clav ulanate (Augmentin) 875-125 MG tabletIndication s:Chronic frontal sinusitis,Acute otitis externa, unspecified laterality, unspecified type Take 1 tablet by mouth 2 times daily for 7 days. 14 tablet 01/25/20 25 025 clotrimazole (Gyne-Lotrimin) 1 % vaginal creamIndications :Yeast infection Insert 1 applicator into the vagina in the evening for 7 days. 45 g 01/27/20 25 025 Active Problems Patient Care Coordination No te [...] 01/19/2025 Acute hyperkalemia 01/19/2025 AF (atrial fibrillation) ([facility]) 01/19/2025 Anemia of chronic kidney failure 01/19/2025 [...] 01/19/2025 AMARJIT on CPAP 01/19/2025 Pulmonary HTN ([facility]) 01/19/2025 Obesity due to excess calories 01/19/2025 Severe obesity (BMI 35.0-39.9) with comorbidity ([facility]) 01/19/2025 Unstable angina ([facility]) 01/19/2025 Chest pain 01/19/2025 CAD (coronary artery disease) 01/19/2025 Chronic kidney disease with end stage renal failure on dialysis ([facility]) 01/19/2025 Acid reflux 01/19/2025 Overview (01/19/2025): EGD-r/o [...] (05/21/2022 9:19 AM EST): -Currently followed by [facility] - last available consult note Jan 2022 w/ Dr. Miller -Continues with current med regimen: -Januvia 25mg PO daily -Tuojeo insulin 28 units subcutaneous daily -Lispro AC per SS -Dexcom ordered and managed through [facility] -Strongly encourage pt to schedule follow up appt with specialists. ED precautions reviewed. -Follow up in 1 month, sooner as needed. Abnormal gait 05/15/2022 End stage renal failure on dialysis (CMS/HCC) Assessment & Plan (11/25/2023 5:22 PM EDT): Patient tells me it is plan for her to go for renal transplant she does not know the date yet Assessment & Plan (05/21/2022 9:12 AM EST): -Continues with HD on M/W/F -Low potassium diet, continues sevelamer with meals Asthma 05/15/2022 Atrial flutter (CMS/HCC) 05/15/2022 Chronic low back pain 05/15/2022 Dyspnea [...] remission 09/02/2018 Coronary artery disease invo lving nikolai coronary artery of nikolai heart with unstable angina pectoris 06/03/2018 Calculus of kidney 06/03/2018 Atypical chest pain 06/03/2018 Moderate mitral regurgitation 06/04/2017 Chronic endometritis 11/04/2016 Resolved Problems Problem Noted Date Diagnosed Date Resolved Date Abscess of multiple sites 01/19/2025 Acute hyperglycemia 01/19/2025 01/25/20 25 Carpal tunnel syndrome of left wrist [...] Encounters Date Type Department Care Team Description 02/23/2025 Orders Only GENERIC EXTERNAL DATA DEPARTMENT Provider, Generic External Data 02/23/2025 Refill [facility] [address] [place] [phone] Faith Mason MD Atrial flutter, unspecified type (CMS/HCC) (HCC); Right arm pain; Numbness and tingling of right arm 02/16/2025 Telephone [facility] [address] [place] [address] Faith aMson MD Dec recall 01/26/2025 Results Follow-Up [facility] [address] [place] [address] Faith Mason MD POCT Glucose, POCT HGB A1C, Bacterial Vaginosis, Chlamydia/N. Gonorrhoeae RNA, TMA, Vaginal 01/25/2025 1:00 PM EDT Office Visit [facility] [address] [place] [address] [place] D[facility] Bleeding post tooth extraction (Primary Dx) 01/24/2025 1:00 PM EDT Office Visit [address] [address] Faith Mason MD Mouth bleeding (Primary Dx); Vaginal discharge; Pelvic pain; Chronic frontal sinusitis; Great toe pain, right; Diabetic polyneuropathy associated with type 2 diabetes mellitus ([facility]); Acute otitis externa, unspecified laterality, unspecified type; Seborrheic dermatitis; Postmenopausal bleeding 01/24/2025 Travel 01/19/2025 1:30 PM EDT Office Visit [facility] [address] [place] [address] [place] D[facility] Severe dental caries (Primary Dx); Pain, dental 01/17/[address] [address] Faith Mason MD 01/16/2025 Patient Outreach [address] [address] Faith Mason MD Pre-visit Planning (SDOH screening negative and tobacco screening negative) 01/10/[address] [address] Faith Mason MD Durable Medical Equipment 12/31/2024 Refill [facility] [address], [place] [phone] Faith Mason MD Type 2 diabetes mellitus with hyperglycemia, with long-term current use of insulin ([facility]) 12/30/[address] [address] Faith Mason MD Chart Prep 12/27/2024 Travel 12/22/[address] [address] Faith Mason MD Appointment Request 12/08/2024 Refill [facility] [address] [place] [address] Faith Mason MD 12/07/2024 Refill [facility] [address] [place] [address] Faith Mason MD 12/05/2024 Refill [facility] [address], [place] [phone] Faith Mason MD Right arm pain; Numbness and tingling of right arm from Last 3 Months Immunizations Immunization Administration [...] 1-dose 75+ series) 2041 HIV Screening Completed 01/31/2025, 01/26/2024 Hepatitis C Screening Completed 01/31/2025, 024 HIB Vaccines Aged Out No longer eligi [...] WHOLE BLOOD Routine 02/23/2025 10:49 AM EDT HEPATITIS PANEL, GENERAL Routine 01/31/2025 2:07 PM EDT Vaginal discharge RPR (MONITOR) W/REFL TITER Routine 01/31/2025 2:07 PM EDT Vaginal discharge HIV 1/2 ANTIGEN/ANTIBODY, FOURTH GENERATION W/RFL Routine 01/31/2025 2:07 PM EDT Vaginal discharge NO CHARGE VISIT Routine 01/25/2025 1:00 PM [...] TOMOSYNTHESIS BILATERAL Routine 07/18/2024 11:24 AM EST LIPID PANEL WITH REFLEX TO DIRECT LDL Routine 12/01/2023 1:06 PM EDT Essential hypertension LAB COLOGUARD COLON CANCER SCREEN Routine 09/17/2023 12:00 PM EDT Colon cancer screening ZZZ HISTORICAL MICROALBUMIN, RANDOM Routine 07/23/2020 9:00 AM EST from Last 3 Months or Most Recently Relevant to Health Maintenance Results * (ABNORMAL) Glucose, Whole Blood (02/23/2025 10:49 AM EDT) Glucose, Whole Blood 289(H) 60 - 115 mg/dL [facility] Comment:METER #: [id number] 0Testing performed in the Endocrinology Department [address] , [address], [facility]. 02/23/2025 10:4 9 AM EDT 02/23/2025 10:55 AM EDT us Generic External Data Provider LAB BLOOD ORDERAB LES Final Result [facility] [address] [place] [phone] * Hepatitis A,B,C Profile (01/31/2025 2:07 PM EDT) Hepatitis A IgM Nonreactive Nonreactive [facility] Comment:IgM antibodies to CARTWRIGHT V not detected; does not exclude earlyacute or recovered HAV infection. ~Hepatitis B Surface Antibody REACTIVE Nonreactive [facility] Comment:REACTIVE: > 11.99 mI U/mL Hepatitis B Core Antibody Nonreactive Nonreactive [facility] Hepatitis C Antibody Nonreactive Nonreactive [facility] Comment:Antibodies to HCV no t detected; does not exclude early acuteHCV infection. Hepatitis B Surface Ag Negative Negative [facility] Blood Venous blood specimen / Unknown 01/31/2025 2:07 PM EDT 01/31/2025 4:09 PM EDT us Faith No MD LAB BLOOD ORDERABLES Final Result Performing Organization Address [facility] Co de Phone Number [facility] [address] [place] [phone] * RPR (Monitor) with Reflex to??Titer (01/31/2025 2:07 PM EDT) RPR (Monitor) w/Refl Titer NON-REACTI VE NON-REACT JOHNNY [facility] Comment:THIS TEST WAS PERFOR MED AT:[facility] [place] [phone] ALICEA MD Rapid Plasma Reagin Ab Titer TNP [facility] Blood Venous blood specimen / Unknown 01/31/2025 2:07 PM EDT 01/31/2025 4:09 PM EDT us Faith No MD LAB BLOOD ORDERABLES Final Result Performing Organization Address [facility] Co de Phone Number [facility] [address] [place] [phone] * HIV-1/2 Antigen and Antibodies, Fourth Generation, with Reflexes (01/31/2025 2:07 PM EDT) Pathologist [facility] HIV AB/AG Nonreactive Nonreactive [facility] Comment:HIV-1 p24 Ag and/or HIV-1/HIV-2 Ab not detected.A test result that is nonreactive does not exclude thepossibility of exposure to or infection with HIV-1 and/orHIV-2. Nonreactive results in this assay for individualswith prior exposure to HIV-1 and/or HIV-2 may be due toantigen and antibody levels that are below the limit ofdetection of this assay.The eReplicant HIV Ag/Ab Combo assay result andsupplemental assay results should be interpreted inconjunction with the patient's clinical presentation,history and other laboratory results. If the results areinconsistent with clinical evidence, additional testing issuggested to confirm the result. Blood Venous blood specimen / Unknown 01/31/2025 2:07 PM EDT 01/31/2025 4:09 PM EDT Faith No MD LAB BLOOD ORDERABLES Final Result [facility] [address] [place] [phone] * Chlamydia/N. Gonorrhoeae RNA, TMA, Vaginal (01/24/2025 2:02 PM EDT) [facility] CT PCR NOT DETECTED Not Detect. [facility] Comment:A not detected test result does [...] psychologicalconsequences. NG PCR NOT DETECTED Not Detect. [facility] Comment:A not detected test result does [...] EDT Faith No MD LAB MICROBIOLOGY - NERDE ORDERABLES Final Result [facility] [address] [place] [phone] * (ABNORMAL) Bacterial Vaginosis (01/24/2025 2:01 PM EDT) TRICHOMONAS VAGINALIS DETECTION BY PCR NOT DETECTED Not Detect [facility] BACTERIAL VAGINOSIS DETECTION BY PCR NEGATIVE Negative [facility] Comment:The BV organism targ ets of [...] GROUP DETECTION BY PCR DETECTED(A) Not Detect [facility] Kym glab krusei PCR NOT DETECTED Not Detect [facility] Swab Vaginal structure / Unknown 01/24/2025 2:01 PM EDT 01/24/2025 5:56 PM EDT Faith No MD LAB MICROBIOLOGY - GE NERAL ORDERABLES Final Result [facility] [address] [place] [phone] * (ABNORMAL) POCT HGB A1C (01/24/2025 [...] Media Lot # [id number] Lot# Expiration Date 72 Blood Capillary blood specimen / Unknown 01/24/2025 1:51 PM EDT Faith No MD POINT OF CARE TEST EN TER/EDIT ORDERABLES Final Result * (ABNORMAL) Hemoglobin A1c (11/23/2024) Hemoglobin A1C 8.5(A) 4.0 - 5.7 % Narrative Brea Becerra - 11/23/2024 See labs under care everywhere with matching A1c date Laxmi Wilkins MD HEALTH MAINTENANCE Final Result * HPV DNA, Low/High Risk (08/23/2024 12:00 AM EDT) HPV High Risk Negative Negative [facility] HPV Genotype 16 Negative Negative [facility] HPV Genotype 18 Negative Negative [facility] Comment:HPV testing performe d at [facility] (CLIA#[id number]), [address] [place] [phone].Testing for HPV was performed using the Mike [...] MD LAB BLOOD ORDERABLES Final Result [facility] [address] [place] [phone] * Pap Smear (08/23/2024 12:00 AM EDT) Swab 08/23/2024 08/24/2024 6:0 0 AM EDT Narrative [facility] - 08/29/2024 1:23 PM EDT ----- ------- Name: Sarah Dixon Age/Sex: 59/F : 1965 Unit#: [id number] Attend Dr: Faith Mason MD Re08/23/24 Status: DEP REF Location: [facility] Disch: ----- ------- SPEC : [id number] RECD: 08/24/24 STATUS: FELA UMAÑA NUM: [id number] NADJA: 08/23/24- [facility] DR: Faith Mason MD ENTERED: 08/24/24 SP [...] MD LAB CYTOLOGY ORDERABL ES Final Result [facility] [address] [place] [phone] * BI Mammogram Screening Tomosynthesis Bilateral (07/18/2024 11:24 AM EST) Anatomical Region Laterality Modality Breast Bilateral Mammography 07/18/2024 11:2 4 AM EST Narrative 07/23/2024 12:27 PM EST [address] [place] [address] Mammography Report Signed Patient: Sarah Dixon MR#: [id number] : 1965 Acct:[id number] Age/Sex: 59 / F ADM Date: 07/18/24 Loc: HO.MAMMO Attending Dr: Faith No MD Ordering Physician: Faith Mason MD Results: 1Negative Date of Service: 07/18/24 Follow Up: 1 Year From Orig ina Mammogram Procedure(s): MM tomosynthesis screening BI Accession Number(s): [id number] cc: Faith Mason MD EXAMINATION: MM SCREENING [...] Archuleta DO in OV> 07/23/24 1223 DD/ 112 TD/TT: 07/18/241123 Sand Plant Attendant: Procedure Note Donotvickiinterpreter, Image - 07/23/2024 [facility] [address] [place] [address] Dr. [place], RACHEL [address] Mammography Report Signed Patient: Sarah Dixon#: [id number] : 1965Acct:[id number] Age/Sex: 59 / FADM Date: 07/18/24 Loc: HO.MAMMO Attending Dr: Faith No MD Ordering Physician: Faith Mason MDResults: 1Negative Date of Service: 07/18/24Follow Up: 1 Year From Orig inal Mammogram Procedure(s): MM tomosynthesis screening BI Accession Number(s): [id number] cc: Faith Mason MD EXAMINATION: MM SCREENING [...] by: Alicia Archuleta DO 07/23/2024 12:23 PM [facility] Dictated By: Alicia Archuleta DO Signed By: <Electronically signed by Alicia Archuleta DO in OV> 07/23/24 1223 DD/ 1124 TD/TT: 07/18/241123 Sand Plant Attendant: us Faith No MD IMG BI PROCEDURES Yoshi telma Result - Final * (ABNORMAL) Lipid Panel with Reflex to Direct LDL (12/01/2023 1:06 PM EDT) Triglycerides 81 <150 mg/dL [facility] Comment:Desirable Triglyceri de: less than 150 mg/dLBorderline High Triglyceride 150-199 mg/dLHigh Triglyceride: 200-499 mg/dLVery High Triglyceride: greater than or equal to 5OO mg/dL Cholesterol 77 <200 mg/dL [facility] Comment:Desirable Cholestero l: less than 200 mg/dLBorderline High Cholesterol: 200-239 mg/dLHigh Cholesterol: greater than 239 mg/dL LDL Cholesterol Calculated 30 <100 mg/dL [facility] Comment:Desirable LDL: less than 100 mg/dLNear Optimal/Above Optimal LDL: 110- 129 mg/dLBorderline High LDL: 130-159 mg/dLHigh LDL: 160-189 mg/dLVery High LDL: greater than or equal to 190 mg/dL HDL Cholesterol 31(L) >40 mg/dL [facility] Comment:Desirable HDL: great er than 40 mg/dL Note: This HDL assay may give artificially low results in patients with liver disease. Blood 12/01/2023 1:06 PM EDT 12/01/2023 1:11 PM EDT us Faith No MD LAB BLOOD ORDERABLES Final Result [facility] [address] [place] [phone] [phone] * Cologuard?? colon cancer screening (09/17/2023 12:00 PM EDT) Cologuard Result Negative Negative 09/25/19 10:09 AM EDT [employer] (CLIA #:[id number]) Comment: NEGATIVE TEST RESULT. A negative Cologuard [...] Manning et al, N Engl J Med 2014;370(14):7970-3938) The normal value (reference range) for this assay is negative. COLOGUARD RE-SCREENING RECOMMENDATION: Periodic colorectal cancer screening is an important part of preventive healthcare for asymptomatic individuals at average risk for colorectal cancer. Following a negative Cologuard result, the [place] [employer] and U.S. Multi-Society Task Force screening guidelines recommend a Cologuard re-screening interval of 3 years. References: [place] [employer] Guideline for Colorectal Cancer Screening: https://www.cancer.org/cancer/snrsv-fwahkx-wiahwz/uphwqdnou-gxtjmaeqx-cqkxsli/ac s-rec ommendations.html.; Maxi DK, Robinson REESE, Barry TateK, Colorectal Cancer Screening: Recommendations for Physicians and Patients from the U.S. Multi-Society Task Force on Colorectal Cancer Screening , Am J Gastroenterology 2017; 112:6295-9363. TEST DESCRIPTION: Composite algorithmic analysis of stool [...] (Kacey Jalloh al, N Engl J Med 2014;370(14):1648-1469.) Cologuard may produce a false negative or false positive result (no colorectal cancer or precancerous polyp present at colonoscopy follow up). A negative Cologuard test result does not guarantee the absence of CRC or advanced adenoma (pre-cancer). The current Cologuard screening interval is every 3 years. ([place] [employer] and U.S. Multi-Society Task Force). Cologuard performance data in a 10,000 patient pivotal study using colonoscopy as the reference method can be accessed at the following location: www.Blackberry/results. Additional description of the Cologuard test process, warnings and precautions can be found at www.MashMe.TVogDhf Taxird.com. Stool specimen (specimen) 09/17/2023 12:00 PM EDT 09/18/2023 10:51 AM EDT Faith No MD LAB MOLECULAR DIAGNOS TICS ORDERABLES Final Result Performing Organization Address City/State/[facility] Co de Phone Number [employer] (CLIA #:[id number]) [place] [address], * MICROALBUMIN, RANDOM (07/23/2020 9:00 AM EST) Creatinine Urine 140.39 mg/dL [facility] Microalbum/Creati nine Ratio Ur 419.5 ug/mg cr [facility] Comment: Albumin/Creatinine Ratio Reference Ranges: Normal: < 30 ug/mg creatinine Microalbuminuria: 30 - 300 ug/mg creatinine Clinical Albuminuria: > 300 ug/mg creatinine Microalbumin Urine 589.0 mg/L [facility] 07/23/2020 9:00 AM EST Historical Provider HISTORICAL/NON ORDERABLE LABS Final Result [facility] [address] from Last 3 Months or Most Recently Relevant to Health Maintenance Insurance [place] [facility] MEDICAID STAND ADULT Care Teams Supervisor Grips Relationship Specialty Start Date End Date Faith Mason MD [address] [place] [phone] PCP - General Family Medicine 04/12/19 Linda Peralta Campaign WorkerMerchandising Director 06/08/24
--- OUTSIDE RECORDS SUMMARY | 2025-02-23 12:29 | XMS_ITS | Encounter Summary ---
Author Organization [employer] Address [address] [facility] [address] [place] [address] Care Team Providers Care Ragman Name Role Phone Faith Mason MD Primary Care Provide r Reason for Visit * Reason Comments Med Refill Encounter Details Date Type Department Care Team ([facility] st Contact Info) Description 04/04/2024 Refill [facility] [address] [place], [place] [phone] Faith Mason MD [address] [place], [place] [phone] Essential hypertension Social History Tobacco Use Types [...] documented as of this encounter Care Teams Ragman Relationship Specialty Start Date End Date Faith Mason MD [address] [place] [address] PCP - General Family Medicine 04/12/19 Linda Peralta Photocomposing Machine OperatorUniversity Relations Vice President 06/08/24 documented as of this encounter
== END 2025-02-23 12:02 | disposition home or self-care (01) ==
PROVIDERS: Internal Medicine; PCP Internal Medicine; Visit Provider Student in an Organized Health Care Education/Training Program
DX: E66.01 Morbid (severe) obesity due to excess calories (principal); Z68.37 Body mass index [BMI] 37.0-37.9, adult; E11.22 Type 2 diabetes mellitus with diabetic chronic kidney disease; N18.6 End stage renal disease; E11.65 Type 2 diabetes mellitus with hyperglycemia; Z79.4 Long term (current) use of insulin; E04.2 Nontoxic multinodular goiter
CPT/HCPCS: 99214

== ENCOUNTER → 2025-02-23 10:39 | Outpatient (BNVA) | payer MEDICAID, SELFPAY | PROVIDERS: PCP Internal Medicine; Visit Provider Internal Medicine | DX: E11.22 Type 2 diabetes mellitus with diabetic chronic kidney disease (principal); N18.6 End stage renal disease; E66.09 Other obesity due to excess calories; Z79.4 Long term (current) use of insulin; E04.2 Nontoxic multinodular goiter | CPT/HCPCS: 82947; 83036; 95250; 99212 ==

== ENCOUNTER 2025-03-21 10:29 | Outpatient (AMB) | payer MEDICAID, SELFPAY ==
--- NOTE | 2025-03-21 10:47 | MHC.OFFVIS ---
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 Pt states her glucose was 157 this morning and her last reported A1c was 9.8. Patient denies feeling numbness, tingling , or burning in the feet however she notes occasional bilateral foot pain and a possible abscess on the top of her foot. She has no history of wounds or injuries to her foot and no previous history of amputation. Patient has concerns of possible toe nail fungus. 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 Patient states that she has had pain on the top of her left foot that is worse with activity and movement. She has not tried any treatment so far. She also has discoloration to her right big toe nail. Has not tried any treatment so far. She states she is on dialysis. Her legs do get swollen however she does not like to wear compression stockings. Denies history of wounds or ulcerations. [facility] Medical History Non-toxic multinodular goiter Chronic kidney disease with end stage renal failure on dialysis 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 Uncontrolled type 2 diabetes mellitus with hyperglycemia, with long-term current use of insulin Hidradenitis suppurativa Pneumonia Type 2 diabetes mellitus with hyperglycemia Paroxysmal atrial flutter Dysphonia Chronic cough Urinary frequency Dyspnea on exertion Unstable gait Asthma Chronic low back pain without sciatica Osteoarthritis of both knees Kidney stones Depression AMARJIT (obstructive sleep apnea) Normocytic anemia ESRD needing dialysis CHF (congestive heart failure) Obesity due to excess calories CAD (coronary artery disease) GERD (gastroesophageal reflux disease) Thyroid disease AV fistula HLD (hyperlipidemia) ESRD (end stage renal disease) T2DM (type 2 diabetes mellitus) End stage renal disease on dialysis Dialysis patient Renal failure (ARF), acute on chronic HTN (hypertension) Surgical History History of cardiac cath History of kidney surgery Hx of cholecystectomy Hx of bone graft Family History Father CVD (cardiovascular disease) Diabetes Mother Diabetes Sister Stomach cancer Social History Household Members: Spouse Household Members Other:: , brother, uncles Housing: House Do you presently have visiting nurse or other home services: Yes Alcohol intake: never Patient Tobacco Use Status: Never used Tobacco Advance Directives Date on File: 02/15/21 service: No Current occupational status: disabled Current occupation: right hand dominant Review of Systems Const All systems reviewed & are unremarkable except as noted in HPI and below Physical Exam Vital Signs: BMI result Body Mass Index 34.9 Extrem Other: *Bilateral Lower Extremity Focused Diabetic Foot Exam Vascular: DP/PT 2/4 right foot, 1/4 DP left foot, 1/4 PT left foot. CFT<3s to digits, TG warm to cool other than mild cooler temperature gradient to the left hallux. no pedal edema, pedal hair absent Derm: Skin: Dystrophic thickened elongated discolored toenails times 10. Worse to the right hallux with 90% discoloration. Plantar annular scaling bilaterally. Neuro: [place]-jaron monofilament (10g) test 10/10 intact to right foot, 10/10 intact to left foot. Msk: Hallux rigidus left 1st Metatarsal-phalangeal joint with 10 degrees of dorsiflexion and 25 degrees plantar flexion. Pain on range of motion. No crepitus. Moderate tenderness on palpation of the dorsal aspect of the metatarsophalangeal joint. Muscle strength: 5/5 in all muscle groups. Gait: Normal, no antalgic or steppage gait observed. Footwear Assessment: Shoes inspected; appropriate fit, no excessive wear, or foreign objects noted. Office Procedures AMB Debridement/Avulsion Podia Details: Procedure: Nail debridement Location: Bilateral feet Anesthesia: N/A Description: The affected toenails were cleansed with an antiseptic solution. Using sterile nail nippers and a rotary dario, dystrophic and mycotic nail material was carefully debrided and reduced in thickness. Care was taken to avoid trauma to the surrounding skin and nail bed. All debris was removed as tolerated. The area was inspected for signs of infection or ulceration. Patient tolerated the procedure well without complications. Tolerance: Patient tolerated procedure well, no immediate complications. Class B findings as per physical exam findings above. The patient has a diagnosis of diabetes mellitus and presents with elongated, thickened toenails. Due to underlying diabetic neuropathy and mild vascular disease findings, the patient is at increased risk for complications such as ulceration, infection, and difficulty with self-care. Debridement of elongated toenails is medically necessary to prevent development of pressure-related lesions, reduce risk of secondary infection, and maintain foot health in high-risk comorbidities. [id number] of Nail 6+ Procedure code (CPT) selection complete Results Reviewed Results Reviewed: Laboratory Tests 02/23/25 11:01 Hgb A1c (Clinic) 9.8 H Assessment & Plan Assessment & Plan (1) 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: Code(s): E11.22 - Type 2 diabetes mellitus with diabetic chronic kidney disease; N18.6 - End stage renal disease Category: Medical Plan: Risk Stratification: No current ulceration, infection, or pre-ulcerative lesion. No loss of protective sensation. ESRD patient with possible left foot PAD changes peripheral arterial disease. She was referred for an CHARLENE PVR test. Patient is at moderate risk for diabetic foot complications at this time. Recommendations: Continue routine foot care and daily self-inspection. Recommend moisturizing daily. Recommend supportive proper fitting shoe-wear. She will be referred for custom diabetic shoe at her next visit after x-ray results were reviewed. (2) Tinea pedis: Code(s): B35.3 - Tinea pedis Category: Medical Qualifiers: Laterality: bilateral Qualified Code(s): B35.3 - Tinea pedis Plan: Rx clotrimazole (3) Hallux rigidus: Code(s): M20.20 - Hallux rigidus, unspecified foot Category: Medical Qualifiers: Laterality: bilateral Qualified Code(s): M20.21 - Hallux rigidus, right foot; M20.22 - Hallux rigidus, left foot Plan: Referred for bilateral foot x-rays (4) Tinea unguium: Code(s): B35.1 - Tinea unguium Category: Medical Plan: Debrided elongated thickened toenails x 10. (5) Cyanosis of skin: Code(s): R23.0 - Cyanosis Category: Medical Plan: Referred for US CHARLENE/PVR test Orders: Orders XR Foot Siddhartha 3V Today M20.20 - Hallux rigidus, unspecified foot Fungus Cult Hair/Skin/Nail Today B35.1 - Tinea unguium US CHARLENE complete Today R23.0 - Cyanosis AMB Debridement/Avulsion Podiatry Today B35.1 - Tinea unguium Surgical Today B35.1 - Tinea unguium Medications: New clotrimazole 1% (Antifungal (clotrimazole)) Applied to the bottom of feet 1 appl topical DAILY 15 grams 3RF 4 weeks B35.3 - Tinea pedis capsaicin 0.1% (Arthritis Pain Relief (capsaicin)) do not wash area for at least 30 min after application 1 appl topical BID 42.5 grams 3RF Arthritis M20.20 - Hallux rigidus, unspecified foot Coding Level of Care Code New Pt Level 4 (93074) Diagnoses 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 E11.22; N18.6 Tinea pedis of both feet B35.3 Laterality: bilateral Hallux rigidus of both feet M20.21; M20.22 Laterality: bilateral Tinea unguium B35.1 Cyanosis of skin R23.0 CPT Codes Skin Debridement - CPT: 60181-Ffillfevgel of Nail 6+ ([id number]) Time Spent (min) 30
[2025-03-21 10:58] VITALS: BMI 34.9
--- OUTSIDE RECORDS SUMMARY | 2025-03-21 13:07 | XMS_ITS | Clinical Summary ---
Author Organization [employer] Address [address] [place] [address] 7[address] [place] [address] Care Team Providers Care Dairy Inspector Name Role Phone Faith Mason MD [...] 024 Active Blood Glucose Monitoring Suppl (FreeStyle [place] Lite) w/Device kitIndications: Type 2 diabetes mellitus with hyperglycemia, with long-term current use of insulin (HCC) Use to test blood sugar 3 times daily 1 kit Active TRUEplus Lancets 33G miscIndications :Type 2 diabetes mellitus with hyperglycemia, with long-term current use of insulin ([facility]) TEST BLOOD SUGAR THREE TIMES DAILY 100 [...] hyperglycemia, with long-term current use of insulin ([facility]) INJECT 28 UNITS SUBCUTANEOUSLY EVERY DAY 6 mL 1 Active guaiFENesin 200 MG/10ML liquidIndicatio ns:Acute cough Take 10 mL by mouth every 6 (six) hours if needed (take for cough if needed). 236 mL Active brimonidine (AlphaGAN) 0.2 % ophthalmic solution Administer 1 drop into the left eye 3 times daily. Active Continuous Glucose Radiology Interventional Physician (FreeStyle Tika 3 [place]) device Use as directed Active Continuous Glucose [...] daily. Active Acetaminophen Extra Strength 500 MG tabletIndicatio ns:Polyarthralg ia TAKE 2 TABLETS BY MOUTH EVERY 8 HOURS NEEDED FOR MILD PAIN 30 tablet 2 01/07/2 025 Active Fiber-Lax 625 MG tabletIndicatio ns:Constipation [...] dental procedure 12 capsule 3 025 Active hydrALAZINE (Apresoline) 50 MG tablet [...] 1 025 Active apixaban (Eliquis) 5 MG tabletIndicatio ns:Atrial flutter, unspecified type (CMS/HCC) ([facility]) TAKE 1 TABLET BY MOUTH TWICE DAILY IN THE MORNING AND IN THE EVENING 60 tablet 3 025 Active gabapentin (Neurontin) 300 MG capsuleIndicati ons:Right arm pain,Numbness and tingling of right arm TAKE 1 CAPSULE BY MOUTH AT BEDTIME 30 capsule 2 025 Active docusate sodium (Colace) 100 MG capsuleIndicati ons:Other constipation TAKE 1 CAPSULE BY MOUTH TWICE DAILY 180 capsule 1 025 Active metoprolol tartrate (Lopressor) 25 MG tablet TAKE 1/2 TABLET BY MOUTH TWICE DAILY IN THE MORNING AND EVENING 90 tablet 1 025 Active ketoconazole (NIZOral) 2 % shampooIndicati ons:Seborrheic dermatitis APPLY TOPICALLY TO THE AFFECTED AREA(S) TWICE A WEEK 120 mL 2 025 Active docusate sodium (Colace) 100 MG capsuleIndicati ons:Other constipation TAKE 1 CAPSULE BY MOUTH TWICE DAILY 180 capsule 025 2024 Discontinued metoprolol tartrate (Lopressor) 25 MG tablet TAKE 1/2 TABLET BY MOUTH TWICE DAILY IN THE MORNING AND EVENING 30 tablet 3 025 2024 Discontinued apixaban (Eliquis) 5 MG tabletIndicatio ns:Atrial flutter, unspecified type (CMS/HCC) (HCC) TAKE 1 TABLET BY MOUTH TWICE DAILY IN THE MORNING AND IN THE EVENING 60 tablet 3 025 2024 Discontinued gabapentin (Neurontin) 300 MG capsuleIndicati ons:Right arm pain,Numbness and tingling of right arm TAKE 1 CAPSULE BY MOUTH AT BEDTIME 30 capsule 2 025 2024 Discontinued ketoconazole (NIZOral) 2 % shampooIndicati ons:Seborrheic dermatitis Apply topically 2 (two) times a week. 120 mL 025 2024 Discontinued Active Problems Patient Care [...] 01/19/2025 Acute hyperkalemia 01/19/2025 AF (atrial fibrillation) (CMS/HCC) 01/19/2025 Anemia of chronic kidney failure 01/19/2025 [...] 01/19/2025 AMARJIT on CPAP 01/19/2025 Pulmonary HTN ([facility]) 01/19/2025 Obesity due to excess calories 01/19/2025 Severe obesity (BMI 35.0-39.9) with comorbidity ([facility]) 01/19/2025 Unstable angina ([facility]) 01/19/2025 Chest pain 01/19/2025 CAD (coronary artery disease) 01/19/2025 Chronic kidney disease with end stage renal failure on dialysis ([facility]) 01/19/2025 Acid reflux 01/19/2025 Overview (01/19/2025): EGD-r/o [...] (05/21/2022 9:19 AM EST): -Currently followed by [facility] - last available consult note Jan 2022 w/ Dr. Miller -Continues with current med regimen: -Januvia 25mg PO daily -Tuojeo insulin 28 units subcutaneous daily -Lispro AC per SS -Dexcom ordered and managed through [facility] End[facility] -Strongly encourage pt [...] remission 09/02/2018 Coronary artery disease invo lving torres martinez coronary artery of torres martinez heart with unstable angina pectoris 06/03/2018 Calculus [...] Encounters Date Type Department Care Team Description 03/14/2025 Telephone [facility] [address] [place] [address] Faith Mason MD Medication Question 02/24/2025 Refill [facility] [address] [place] [address] Faith Mason MD Other constipation; Seborrheic dermatitis 02/23/2025 Orders Only GENERIC EXTERNAL DATA DEPARTMENT Provider, Generic External Data 02/23/[address] [address] Faith Mason MD Atrial flutter, unspecified type (CMS/HCC) ([facility]); Right arm pain; Numbness and tingling of right arm 02/16/[address] [address] Faith Mason MD Dec recall 01/26/2025 Results Follow-Up [address] [address] Faith Mason MD POCT Glucose, POCT HGB A1C, Bacterial Vaginosis, Chlamydia/N. Gonorrhoeae RNA, TMA, Vaginal 01/25/2025 1:00 PM EDT Office Visit [facility] ADULT DENTAL [address] [place] [phone] [place] D[place] Bleeding post tooth extraction (Primary Dx) 01/24/2025 1:00 PM EDT Office Visit [address] [address] Faith Mason MD Mouth bleeding (Primary Dx); Vaginal discharge; Pelvic pain; Chronic frontal sinusitis; Great toe pain, right; Diabetic polyneuropathy associated with type 2 diabetes mellitus ([facility]); Acute otitis externa, unspecified laterality, unspecified type; Seborrheic dermatitis; Postmenopausal bleeding 01/24/2025 Travel 01/19/2025 1:30 PM EDT Office Visit [facility] [address] [place] [phone] [place] DDS Severe dental caries (Primary Dx); Pain, dental 01/17/[address] [address] Faith Mason MD 01/16/2025 Patient Outreach [address] [address] Faith Mason MD Pre-visit Planning (SDOH screening negative and tobacco screening negative) 01/10/[address] [place] [address] Faith Mason MD Durable Medical Equipment 12/31/2024 Refill [facility] PED[facility] [address] [place] [address] Faith Mason MD Type 2 diabetes mellitus with hyperglycemia, with long-term current use of insulin ([facility]) 12/30/2024 Telephone [facility] [address] [place] [address] Faith Mason MD Chart Prep 12/27/2024 Travel 12/22/2024 Telephone [facility] [address] [place] [address] Faith Mason MD Appointment Request from Last 3 Months Immunizations Immunization Administration [...] 01/24/2025 1:18 PM EDT Plan of Treatment Upcoming Encounters Date Type Department Care Team (Late st Contact Info) Description 05/11/2025 10:45 AM EST Office Visit [facility] [address] [place], [place] [phone] Faith Mason MD [address] [place], [place] [phone] Health Maintenance Due Date Last Done Comments [...] 09/16/2024 09/17/2023 Depression Screening 11/23/2024 11/24/2023, 11/24/19 24 Lipid Panel 11/30/2024 12/01/2023, 09/09/2022 COVID-19 Vaccine ( season) 2025 05/13/2023, 05/07/2021, 07/05/2020 Dental Oral Exam 03/23/2025 09/20/2024, 06/29/2008 Diabetes: [...] 01/26/2024 Hepatitis C Screening Completed 01/31/2025, 024 Influenza Vaccine Completed 02/15/2025, , 02/27/2023, Additional history exists HIB Vaccines Aged Out [...] OF TOOTH Routine 01/19/2025 1:30 PM EDT INTRAORAL - COMPLETE SERIES OF RADIOGRAPHIC IMAGES [...] Whole Blood 289(H) 60 - 115 mg/dL [facility] Comment:METER #: [id number] 0Testing performed in the Endocrinology Department [address] , [address], [facility]. 02/23/2025 10:4 9 AM EDT 02/23/2025 10:55 AM EDT us Generic External Data Provider LAB BLOOD ORDERAB LES Final Result Performing Organization Address [facility] Co de Phone Number [facility] [address] [place] [phone] * Hepatitis A,B,C Profile (01/31/2025 2:07 PM EDT) Hepatitis A IgM Nonreactive Nonreactive [facility] Comment:IgM antibodies to CARTWRIGHT V not detected; does not exclude earlyacute or recovered HAV infection. ~Hepatitis B Surface Antibody REACTIVE Nonreactive [facility] Comment:REACTIVE: > 11.99 mI U/mL Hepatitis B Core Antibody Nonreactive Nonreactive [facility] Hepatitis C Antibody Nonreactive Nonreactive [facility] Comment:Antibodies to HCV no t detected; does not exclude early acuteHCV infection. Hepatitis B Surface Ag Negative Negative [facility] Blood Venous blood specimen / Unknown 01/31/2025 2:07 PM EDT 01/31/2025 4:09 PM EDT us Faith No MD LAB BLOOD ORDERABLES Final Result Performing Organization Address [facility] Co de Phone Number [facility] [address] [place] [phone] * RPR (Monitor) with Reflex to??Titer (01/31/2025 2:07 PM EDT) RPR (Monitor) w/Refl Titer NON-REACTI VE NON-REACT JOHNNY [facility] Comment:THIS TEST WAS PERFOR MED AT:[employer] [place] [phone] ALICEA MD Rapid Plasma Reagin Ab Titer TNP [facility] Blood Venous blood specimen / Unknown 01/31/2025 2:07 PM EDT 01/31/2025 4:09 PM EDT Faith No MD LAB BLOOD ORDERABLES Final Result Performing Organization Address [facility] Co de Phone Number [facility] [address] [place] [phone] * HIV-1/2 Antigen and Antibodies, Fourth Generation, with Reflexes (01/31/2025 2:07 PM EDT) Pathologist [facility] HIV AB/AG Nonreactive Nonreactive [facility] Comment:HIV-1 p24 Ag and/or HIV-1/HIV-2 Ab not detected.A test result that is nonreactive does not exclude thepossibility of exposure to or infection with HIV-1 and/orHIV-2. Nonreactive results in this assay for individualswith prior exposure to HIV-1 and/or HIV-2 may be due toantigen and antibody levels that are below the limit ofdetection of this assay.The [employer] HIV Ag/Ab Combo assay result andsupplemental assay results should be interpreted inconjunction with the patient's clinical presentation,history and other laboratory results. If the results areinconsistent with clinical evidence, additional testing issuggested to confirm the result. Blood Venous blood specimen / Unknown 01/31/2025 2:07 PM EDT 01/31/2025 4:09 PM EDT us Faith No MD LAB BLOOD ORDERABLES Final Result Performing Organization Address [facility] Co de Phone Number [facility] [address] [place] [phone] * Chlamydia/N. Gonorrhoeae RNA, TMA, Vaginal (01/24/2025 2:02 PM EDT) [facility] CT PCR NOT DETECTED Not Detect. [facility] Comment:A not detected test result [...] psychologicalconsequences. NG PCR NOT DETECTED Not Detect. [facility] Comment:A not detected test result [...] EDT Faith No MD LAB MICROBIOLOGY - [facility] ORDERABLES Final Result [facility] [address] [place] [phone] * (ABNORMAL) Bacterial Vaginosis (01/24/2025 2:01 PM EDT) TRICHOMONAS VAGINALIS DETECTION BY PCR NOT DETECTED Not Detect [facility] BACTERIAL VAGINOSIS DETECTION BY PCR NEGATIVE Negative [facility] Comment:The BV organism targ ets [...] GROUP DETECTION BY PCR DETECTED(A) Not Detect [facility] Kym glab krusei PCR NOT DETECTED Not Detect [facility] Swab Vaginal structure / Unknown 01/24/2025 2:01 PM EDT 01/24/2025 5:56 PM EDT us Faith No MD LAB MICROBIOLOGY - NERND ORDERABLES Final Result [facility] [address] [place] [phone] * (ABNORMAL) POCT HGB A1C (01/24/2025 1:52 PM EDT) Hemoglobin A1C 9.7(A) 4.0 - 5.7 % QC Media Lot # [id number] Lot# Expiration Date [id number] Blood 01/24/2025 1:52 PM EDT Result [facility] Faith No MD POINT OF CARE TEST EN TER/EDIT ORDERABLES Final Result * (ABNORMAL) POCT Glucose (01/24/2025 1:51 PM EDT) Glucose Blood, POC 351(A) 60 - 200 mg/dL QC Media Lot # [id number] Lot# Expiration Date ,726 Blood Capillary blood specimen / Unknown 01/24/2025 1:51 PM EDT Faith No MD POINT OF CARE TEST EN TER/EDIT ORDERABLES Final Result * HPV DNA, Low/High Risk (08/23/2024 12:00 AM EDT) HPV High Risk Negative Negative [facility] HPV Genotype 16 Negative Negative [facility] HPV Genotype 18 Negative Negative [facility] Comment:HPV testing performe d at [facility] (CLIA#[id number]), [address] [place] [phone].Testing for HPV was performed using the [employer]0system. The presence of HPV in the female [...] ORDERABLES Final Result [facility] [address] [place] [phone] * Pap Smear (08/23/2024 12:00 AM EDT) Swab 08/23/2024 08/24/2024 6:0 0 AM EDT Narrative [facility] - 08/29/2024 1:23 PM EDT ----- ------- Name: Sarah Dixon Age/Sex: 59/F : 1965 Unit#: [id number] Attend Dr: Faith Mason MD Re08/23/24 Status: [facility] REF Location: [facility] Disch: ----- ------- SPEC : [id number] RECD: 08/24/24 STATUS: FELA UMAÑA NUM: [id number] NADJA: 08/23/24- [facility] DR: Faith Mason MD ENTERED: [...] ------- Signed (signature on file) FREDRICK Doan ([facility]) 08/29/24 1323 ----- ------- END OF REPORT us Faith No MD LAB CYTOLOGY ORDERABL ES Final Result [facility] [address] [place] [phone] * BI Mammogram Screening Tomosynthesis Bilateral (07/18/2024 11:24 AM EST) Anatomical Region Laterality Modality Breast Bilateral Mammography 07/18/2024 11:2 4 AM EST Narrative 07/23/2024 12:27 PM EST [address] [place] [address] Mammography Report Signed Patient: Sarah Dixon MR#: [id number] : 1965 Acct:[id number] Age/Sex: 59 / F ADM Date: 07/18/24 Loc: HO.MAMMO Attending Dr: Faith No MD Ordering Physician: Faith Mason MD Results: 1Negative Date of Service: 07/18/24 Follow Up: 1 Year From Orig ina Mammogram Procedure(s): MM tomosynthesis screening BI Accession Number(s): [id number] cc: Faith Mason MD EXAMINATION: MM SCREENING [...] 07/23/24 1223 DD/ 1124 TD/TT: 07/18/24 1124 Financial Planning Adviser: Procedure Note Donotuseinterpreter, Image - [facility]23/[facility] [address] [place] [address] Mammography Report Signed Patient: Vidal Dixon#: [id number] : 1965Acct:[id number] Age/Sex: 59 / FADM Date: 07/18/24 Loc: HO.MAMMO Attending Dr: Faith No MD Ordering Physician: Faith Mason MDResults: 1Negative Date of Service: 07/18/24Follow Up: 1 Year From Orig inal Mammogram Procedure(s): MM tomosynthesis screening BI Accession Number(s): [id number] cc: Faith Mason MD EXAMINATION: MM SCREENING [...] 07/23/24 1223 DD/ 1124 TD/TT: 07/18/24 1124 Financial Planning Adviser: us Faith No MD IMG BI PROCEDURES Yoshi telma Result - Final * (ABNORMAL) Lipid Panel with Reflex to Direct LDL (12/01/2023 1:06 PM EDT) Triglycerides 81 <150 mg/dL [facility] Comment:Desirable Triglyceri de: less than [...] 190 mg/dL HDL Cholesterol 31(L) >40 mg/dL [facility] Comment:Desirable HDL: great er than 40 mg/dL Note: This HDL assay may give artificially low results in patients with liver disease. Blood 12/01/2023 1:06 PM EDT 12/01/2023 1:11 PM EDT us Faith No MD LAB BLOOD ORDERABLES Final Result [facility] [address] [place] [address] [phone] * Cologuard?? colon cancer screening (09/17/2023 12:00 PM EDT) Cologuard Result Negative Negative 09/25/19 10:09 AM EDT [facility] (CLIA #:[id number]) Comment: NEGATIVE TEST RESULT. A negative Cologuard [...] (Kacey Jalloh al, N Engl J Med 2014;370(14):3612-7643) The normal value (reference range) for this assay is negative. COLOGUARD RE-SCREENING RECOMMENDATION: Periodic colorectal cancer screening is an important part of preventive healthcare for asymptomatic individuals at average risk for colorectal cancer. Following a negative Cologuard result, the [place] Cancer Society and U.S. Multi-Society Task Force screening guidelines recommend a Cologuard re-screening interval of 3 years. References: [place] Cancer Society Guideline for Colorectal Cancer Screening: https://www.cancer.org/cancer/nnzcy-xjfxrz-hfgomw/aemlxdtxl-tvsqyhshy-lwgapql/ac s-rec ommendations.html.; Maxi DK, Robinson REESE, Barry TateK, Colorectal Cancer Screening: Recommendations for Physicians and Patients from the U.S. Multi-Society Task Force on Colorectal Cancer Screening , Am J Gastroenterology 2017; 112:7563-6286. TEST DESCRIPTION: Composite algorithmic analysis of stool [...] (Kacey Jalloh al, N Engl J Med 2014;370(14):2596-7097.) Cologuard may produce a false negative or false positive result (no colorectal cancer or precancerous polyp present at colonoscopy follow up). A negative Cologuard test result does not guarantee the absence of CRC or advanced adenoma (pre-cancer). The current Cologuard screening interval is every 3 years. ([place] Cancer Society and U.S. Multi-Society Task Force). Cologuard performance data in a 10,000 patient pivotal study using colonoscopy as the reference method can be accessed at the following location: www.[employer].Cooleaf/results. Additional description of the Cologuard test process, warnings and precautions can be found at www.Outline Appoguard.com. Stool specimen (specimen) 09/17/2023 12:00 PM EDT 09/18/2023 10:51 AM EDT Faith No MD LAB MOLECULAR DIAGNOS TICS ORDERABLES Final Result [facility] (CLIA #:[id number]) [place] [place] [address], * MICROALBUMIN, RANDOM (07/23/2020 9:00 AM EST) Creatinine Urine 140.39 mg/dL [facility] Microalbum/Creati nine Ratio Ur 419.5 ug/mg cr [facility] Comment: Albumin/Creatinine Ratio Reference Ranges: Normal: < 30 ug/mg creatinine Microalbuminuria: 30 - 300 ug/mg creatinine Clinical Albuminuria: > 300 ug/mg creatinine Microalbumin Urine 589.0 mg/L [facility] 07/23/2020 9:00 AM EST us Historical Provider HISTORICAL/NON ORDERABLE LABS Final Result [facility] [address] from Last 3 Months or Most Recently Relevant to Health Maintenance Insurance [facility] C3 DENTAL[facility] MEDICAID STAND ADULT Care Teams Dairy Inspector Relationship Specialty Start Date End Date Faith Mason MD [address] [facility] [place] [address] PCP - General Family Medicine 04/12/19 Linda Peralta Lithopress OperatorBiofuels Plant Construction Worker 06/08/24
--- OUTSIDE RECORDS SUMMARY | 2025-03-21 13:07 | XMS_ITS | Encounter Summary ---
Author Organization [employer] Address [address] [facility] 7t [place] [address] Care Team Providers Care Forepart Reducer Name Role Phone Faith Mason MD Primary Care Provide r Encounter Details Date Type Department Care Team (Late st Contact Info) Description 07/17/2023 Telephone [facility] MEDICINE [address] [place], [place] [phone] Faith Mason MD [address] [place], [place] [phone] Social History Tobacco Use Types Packs/Day Years [...] the past 12 months, has t he [employer], oil or water [employer] threatened to shut off services in your [...] Description 05/11/2025 10:45 AM EST Office Visit [facility] MEDICINE [address] [place] [phone] Faith Mason MD [address] [place] [phone] documented as of this encounter Visit Diagnoses Not on filedocumented in this encounter Additional Health Concerns Assessment Noted Time PHQ-9 Depression Total Score: 14 023 2:21 PM EDT documented as of this encounter Care Teams Forepart Reducer Relationship Specialty Start Date End Date Faith Mason MD [address] [place] [phone] PCP - General Family Medicine 04/12/19 Linda Peralta Wine SpecialistSock Lining Stitcher 06/08/24 documented as of this encounter
--- OUTSIDE RECORDS SUMMARY | 2025-03-21 13:07 | XMS_ITS | Encounter Summary ---
Author Organization [employer] Address [address] [place] [address] 7t [place] [address] Care Team Providers Care Education Specialist Name Role Phone Faith Mason MD Primary Care Provide r Reason for Visit * Reason Comments Med Change Request Encounter Details Date Type Department Care Team ([facility] Contact Info) Description 11/28/2022 Refill [facility] [address] [place], [place] [phone] Faith Mason MD [address] [place] [address] Type 2 diabetes mellitus with hyperglycemia, with long-term current use of insulin ([facility]) Social History Tobacco Use [...] Department Care Team (Late Contact Info) Description 05/11/2025 10:45 AM EST Office Visit [facility] [address] [place] [address] Faith Mason MD [address] [place] [address] documented as of this encounter Visit Diagnoses Diagnosis Type 2 diabetes mellitus with hyperglycemia, with long-term current use of insulin (HCC) documented in this encounter Additional Health Concerns Assessment Noted Time PHQ-9 Depression Total Score: 14 023 2:21 PM EDT documented as of this encounter Care Teams Education Specialist Relationship Specialty Start Date End Date Faith Mason MD [address] [place] [phone] PCP - General Family Medicine 04/12/19 Linda Peralta Licensed Nuclear Control Room OperatorBilingual Manager 06/08/24 documented as of this encounter
--- OUTSIDE RECORDS SUMMARY | 2025-03-21 13:07 | XMS_ITS | Encounter Summary ---
Author Organization [employer] Address [address] [facility] 7t [place] [address] Care Team Providers Care Music Therapy Teacher Name Role Phone Faith Mason MD Primary Care Provide r Reason for Visit * Reason Onset Date Comments Durable Medical Equipment 11/05/2023 Encounter Details Date Type Department Care Team (Late st Contact Info) Description 11/05/2023 Telephone [facility] MED[facility]INE [address] [place], [place] [phone] Faith Mason MD [address] [place], [place] [phone] Durable Medical Equipment Social History Tobacco Use [...] 11/05/2023 12:47 PM EDT Silver Mckeon at [facility] calling to request the following DME. Shower Chair Shower grab bars Wheel chair Rolator walker with seat documented in this encounter Plan of Treatment Upcoming Encounters Date Type Department Care Team (Late st Contact Info) Description 05/11/2025 10:45 AM EST Office Visit [facility] MEDICINE [address] [place] [address] Faith Mason MD [address] [place] [address] documented as of this encounter Visit Diagnoses Not on filedocumented in this encounter Additional Health Concerns Assessment Noted Time PHQ-9 Depression Total Score: 14 023 2:21 PM EDT documented as of this encounter Care Teams Music Therapy Teacher Relationship Specialty Start Date End Date Faith Mason MD [address] [place], [place] [phone] PCP - General Family Medicine 04/12/19 Linda Peralta Substitute TeacherAir Analysis Technician 06/08/24 documented as of this encounter
--- OUTSIDE RECORDS SUMMARY | 2025-03-21 13:07 | XMS_ITS | Encounter Summary ---
Author Organization [employer] Address [address] [facility] 7t [place] [address] Care Team Providers Care Business Development Engineer Name Role Phone Faith Mason MD Primary Care Provide r Encounter Details Date Type Department Care Team ([facility] st Contact Info) Description 08/05/2024 Telephone [facility] [address], [place] [phone] Faith Mason MD [address], [place] [phone] Social History Tobacco Use Types Packs/Day Years [...] Description 05/11/2025 10:45 AM EST Office Visit [facility] [address] [place] [address] Faith Mason MD [address] [place] [address] documented as of this encounter Visit Diagnoses Not on filedocumented in this encounter Additional Health Concerns Assessment Noted Time PHQ-9 Depression Total Score: 6 11/24/19 24 2:35 PM EDT documented as of this encounter Care Teams Business Development Engineer Relationship Specialty Start Date End Date Faith Mason MD [address], [place] [phone] PCP - General Family Medicine 04/12/19 Linda Peralta Dormitory SupervisorManufacturing Process Technician 06/08/24 documented as of this encounter
--- OUTSIDE RECORDS SUMMARY | 2025-03-21 13:07 | XMS_ITS | Encounter Summary ---
Author Organization [employer] Address [address] [facility] 7t [place] [address] Care Team Providers Care Electric Meter Installer Name Role Phone Faith Mason MD Primary Care Provide r Encounter Details Date Type Department Care Team ([facility] st Contact Info) Description 08/05/2024 Telephone [facility] [address] [place], [place] [phone] Faith Mason MD [address] [place], [place] [phone] Social History Tobacco Use Types Packs/Day Years [...] Description 05/11/2025 10:45 AM EST Office Visit [facility] [address] [place] [address] Faith Mason MD [address] [place] [address] documented as of this encounter Visit Diagnoses Not on filedocumented in this encounter Additional Health Concerns Assessment Noted Time PHQ-9 Depression Total Score: 6 11/24/19 24 2:35 PM EDT documented as of this encounter Care Teams Electric Meter Installer Relationship Specialty Start Date End Date Faith Mason MD [address] [place], [place] [phone] PCP - General Family Medicine 04/12/19 Linda Peralta Heel ScourerStaple Laster 06/08/24 documented as of this encounter
--- OUTSIDE RECORDS SUMMARY | 2025-03-21 13:07 | XMS_ITS | Encounter Summary ---
Author Organization [employer] Address [address] [facility] 7t [place] [address] Care Team Providers Care Still Operator Whiskey Name Role Phone Faith Mason MD Primary Care Provide r Reason for Visit * Reason Comments Med Refill Encounter Details Date Type Department Care Team ([facility] st Contact Info) Description 06/24/2023 Refill [facility] [address] [place], [place] [phone] Faith Mason MD [address] [place], [place] [phone] Social History Tobacco Use Types Packs/Day Years [...] Description 05/11/2025 10:45 AM EST Office Visit [facility] [address] [place] [phone] Faith Mason MD [address] [place] [phone] documented as of this encounter Visit Diagnoses Not on filedocumented in this encounter Additional Health Concerns Assessment Noted Time PHQ-9 Depression Total Score: 14 023 2:21 PM EDT documented as of this encounter Care Teams Still Operator Whiskey Relationship Specialty Start Date End Date Faith Mason MD [address] [place] [phone] PCP - General Family Medicine 04/12/19 Linda Peralta Electromechanical TechnologistLogistics Administrator 06/08/24 documented as of this encounter
--- OUTSIDE RECORDS SUMMARY | 2025-03-21 13:07 | XMS_ITS | Encounter Summary ---
Author Organization [employer] Address [address] [facility] 7t [place] [address] Care Team Providers Care Indirect Sales Representative Name Role Phone Faith Mason MD Primary Care Provide r Reason for Visit * Reason Comments Med Refill Encounter Details Date Type Department Care Team ([facility] st Contact Info) Description 11/18/2024 Refill [facility] [address] [place], [place] [phone] Faith Mason MD [address] [place], [place] [phone] Right arm pain; Numbness and tingling of [...] Description 05/11/2025 10:45 AM EST Office Visit [facility] [address] [place] [address] Faith Mason MD [address] [place] [address] documented as of this encounter Visit Diagnoses Diagnosis Right arm pain Pain in soft tissues of limb Numbness and tingling of right arm documented in this encounter Additional Health Concerns Assessment Noted Time PHQ-9 Depression Total Score: 6 11/24/19 24 2:35 PM EDT documented as of this encounter Care Teams Indirect Sales Representative Relationship Specialty Start Date End Date Faith Mason MD [address] [place] [address] PCP - General Family Medicine 04/12/19 Linda Peralta Ornamenter HandCar Dumper Operator 06/08/24 documented as of this encounter
--- OUTSIDE RECORDS SUMMARY | 2025-03-21 13:07 | XMS_ITS | Encounter Summary ---
Author Organization [facility] Address [address] [phone] Phone Care Team Providers Care Construction Area Manager Name Role Phone Ines Zamora MD Primary Care Provider + [phone] Reason for Visit * Reason Comments Med Refill Encounter Details Date Type Department Care Team ([facility] st Contact Info) Description 03/19/2025 Refill [facility] [address] [phone] Jeffy Tineo MD [address] [phone] Social History Tobacco Use Types [...] on filedocumented in this encounter Care Teams Construction Area Manager Relationship Specialty Start Date End Date Ines Zamora MD [address] [place] [address] [place] [address] PCP - General 06/04/20 documented as of this encounter
--- OUTSIDE RECORDS SUMMARY | 2025-03-21 13:07 | XMS_ITS | Clinical Summary ---
Author Organization [facility] Address [address] [place] [address] Phone Care Team Providers Care Workforce Development Assistant Name Role Phone Ines Zamora MD Primary Care Provider + [phone] Medications lisinopril 10 MG tabletIndicati ons:Stage 3 chronic kidney disease, not otherwise specified (HCC),Type 2 diabetes mellitus with diabetic chronic kidney disease (HCC),Iron deficiency anemia, not otherwise specified,Hype rtension TAKE 1 TABLET BY MOUTH AT BEDTIME (for high blood pressure) 30 tablet 11 2 Active gabapentin (NEURONTIN) 100 MG capsule TAKE 2 CAPSULES BY MOUTH TWICE DAILY IN THE MORNING AND AT BEDTIME (for nerve pain) 120 capsule 11 3 Active hydrALAZINE 50 MG tablet TAKE 1 TABLET BY MOUTH THREE TIMES DAILY IN THE MORNING, AT NOON, AND IN THE EVENING (for high blood pressure) 90 tablet 11 3 Active sevelamer carbonate (RENVELA) 800 MG tablet TAKE 2 TABLETS BY MOUTH THREE TIMES DAILY IN THE MORNING, AT NOON AND THE EVENING WITH FOOD 180 tablet 11 5 Active sevelamer carbonate (RENVELA) 800 MG tablet TAKE 1 TABLET BY MOUTH THREE TIMES DAILY IN THE MORNING, AT NOON, AND IN THE EVENING WITH FOOD 270 tablet 4 025 Discontinued Encounters Date Type Department Care Team Description 03/19/2025 Refill [facility] [address] [facility] [address] [place] [phone] Jeffy Tineo MD 02/27/2025 Treatment [facility] [address] [address] Jeffy Tineo MD End stage renal disease; Dependence on renal dialysis 02/20/2025 Treatment [facility] [address] [phone] Jeffy Tineo MD End stage renal disease; Dependence on renal dialysis 02/15/2025 Treatment [facility] [address] [phone] Jeffy Tineo MD End stage renal disease; Dependence on renal dialysis 02/08/2025 Treatment [facility] [address] [phone] Jeffy Tineo MD End stage renal disease; Dependence on renal dialysis 01/27/2025 Treatment [facility] [address] [phone] Jeffy Tineo MD End stage renal disease; Dependence on renal dialysis 01/11/2025 Orders Only [facility] [address] [phone] Jeffy Tineo MD 01/09/2025 Treatment [facility] [address] [address] Jeffy Tineo MD End stage renal disease; Dependence on renal dialysis 01/02/2025 Treatment [facility] [address] [phone] Jeffy Tineo MD End stage renal disease; Dependence on renal dialysis 12/26/2024 Treatment [facility] [address] [phone] Jeffy Tineo MD End stage renal disease; Dependence on renal dialysis 12/23/2024 Treatment [facility] [address] [facility] [address] [place] [phone] Jeffy Tineo MD End stage renal disease; Dependence on renal dialysis 12/23/2024 Treatment [facility] [address] [place] [phone] Jeffy Tineo MD End stage renal disease; Dependence on renal dialysis 12/19/2024 Treatment [facility] [address] [facility] [address] [place] [address] Jeffy Tineo MD End stage renal disease; [...] Last Done Comments Breast Cancer Screening 1966 Hepatitis B Vaccine (1 of 5 - Risk Dialysis 4-dose series) 1986 11/12/2018 Colorectal Cancer Screening: Annual FOBT 2015 Colorectal Cancer Screening: Colonoscopy 2015 Colorectal Cancer Screening: Sigmoidoscopy 2015 Pneumococcal Vaccine: 50+ Ye ars (2 of 2 - PCV) 04/05/2020 04/05/2019 Diabetes: Ophthalmology Exam 11/14/2020 Diabetes: Pedal Pulse Checked 11/14/2020 Diabetes: Sensory Foot Exam 11/14/2020 Diabetes: Visual Foot Exam 11/14/2020 Influenza Vaccine (#1) 2025 3, 02/11/2019, 06/03/2018, Additional history exists Diabetes: Hemoglobin A1C 05/25/2025 025, 01/24/2025, 11/23/2024, Additional history exists Pneumococcal Vaccine: Peds ( 0 to 5 Years) and At-Risk Patients (6 to 49 Years) Discontinued 04/05/2019 Procedures Procedure Name Priority Date/Time Associated Diagnosis Comments HEMOGLOBIN AND HEMATOCRIT, BLOOD Routine 03/08/2025 3:00 AM EDT CALCIUM, ADJUSTED W ALBUMIN Routine 03/08/2025 3:00 AM EDT LI () Routine 03/08/2025 3:00 AM EDT HEMOGLOBIN A1C Routine 02/22/2025 3:00 AM EDT MAGNESIUM Routine 02/22/2025 3:00 AM EDT LIH () Routine 02/22/2025 3:00 AM EDT LIPID PANEL Routine 02/22/2025 3:00 AM EDT TRANSFERRIN SATURATION Routine 3:00 AM EDT PROTEIN, TOTAL, SERUM Routine 02/22/2025 3:00 AM EDT ELECTROLYTE PANEL Routine 02/22/2025 3:0 0 AM EDT CREATININE, SERUM Routine 02/22/2025 3:0 0 AM EDT GLUCOSE, RANDOM Routine 02/22/2025 3:00 AM EDT BUN/CREATININE RATIO Routine 02/22/2025 3:00 AM EDT AST Routine 02/22/2025 3:00 AM EDT LACTATE DEHYDROGENASE Routine 02/22/2025 3:00 AM EDT CALCIUM PHOSPHORUS PRODUCT, ADJUSTED (HC) Routine 02/22/2025 3:00 AM EDT ALT Routine 02/22/2025 3:00 AM EDT BILIRUBIN, TOTAL Routine 02/22/2025 3:00 AM EDT ALKALINE PHOSPHATASE Routine 02/22/2025 3:00 AM EDT PTH, INTACT Routine 02/22/2025 3:00 AM EDT FERRITIN Routine 02/22/2025 3:00 AM EDT CBC AND DIFFERENTIAL Routine 02/22/2025 3:00 AM EDT KT/V NATURAL LOG, URR (HC) Routine 02/22/2025 3:00 AM EDT LIH (HC) Routine 02/15/2025 3:00 AM EDT POTASSIUM Routine 02/15/2025 3:00 AM EDT HEMOGLOBIN Routine 02/10/2025 3:00 AM EDT POTASSIUM Routine 02/08/2025 3:00 AM EDT LIH (HC) Routine 02/08/2025 3:00 AM EDT HEMOGLOBIN AND HEMATOCRIT, BLOOD Routine 02/08/2025 3:00 AM EDT LIH (HC) Routine 02/01/2025 3:00 AM EDT POTASSIUM Routine 02/01/2025 3:00 AM EDT CO2, TOTAL Routine 02/01/2025 3:00 AM EDT FERRITIN Routine 01/27/2025 3:00 AM EDT TRANSFERRIN SATURATION Routine 3:00 AM EDT KT/V NATURAL LOG, URR (HC) Routine 01/27/2025 3:00 AM EDT PROTEIN, TOTAL, SERUM Routine 01/27/2025 3:00 AM EDT ELECTROLYTE PANEL Routine 01/27/2025 3:0 0 AM EDT MAGNESIUM Routine 01/27/2025 3:00 AM EDT LIH (HC) Routine 01/27/2025 3:00 AM EDT LACTATE DEHYDROGENASE Routine 01/27/2025 3:00 AM EDT CREATININE, SERUM Routine 01/27/2025 3:0 0 AM EDT GLUCOSE, RANDOM Routine 01/27/2025 3:00 AM EDT BUN/CREATININE RATIO Routine 01/27/2025 3:00 AM EDT BILIRUBIN, TOTAL Routine 01/27/2025 3:00 AM EDT AST Routine 01/27/2025 3:00 AM EDT ALKALINE PHOSPHATASE Routine 01/27/2025 3:00 AM EDT ALT Routine 01/27/2025 3:00 AM EDT CALCIUM PHOSPHORUS PRODUCT, ADJUSTED (HC) Routine 01/27/2025 3:00 AM EDT CBC AND DIFFERENTIAL Routine 01/27/2025 3:00 AM EDT HEMOGLOBIN Routine 01/20/2025 3:00 AM EDT HEMOGLOBIN [...] AND DIFFERENTIAL Routine 12/28/2024 3:00 AM EDT from Last 3 Months Results * LIH (03/08/2025 3:00 AM EDT) Only the most recent of7 resultswithin the time period is included. Lipemia Normal Normal [facility] Icterus Normal Normal [facility] Hemolysis Normal Normal [facility] 03/08/2025 3:00 AM EDT 03/09/2025 1:12 PM EDT us Jeffy Tineo MD LAB [id number] SOLICITED RESULTS Final Result Performing Organization Address City/[facility]/ZIP Co de Phone Number [facility] [address] [place] [address] * Calcium, Adjusted w Albumin (03/08/2025 3:00 AM EDT) Calcium 9.5 8.6 - 10.3 mg/dL [facility] Albumin 4.3 3.6 - 5.4 g/dL [facility] Calcium, Adjusted Total 9.5 8.6 - 10.3 mg/dL [facility] 03/08/2025 3:00 AM EDT 03/09/2025 1:12 PM EDT us Jeffy Tineo MD LAB BLOOD ORDERABLES Final Re sult [facility] [address] [place] [address] * (ABNORMAL) Hemoglobin and hematocrit (03/08/2025 3:00 AM EDT) Only the most recent of3 resultswithin the time period is included. Pathologist [facility] Hgb 10.0(L) 11.2 - 15.7 g/dL [facility] Hematocrit 30.1(L) 34.1 - 44.9 % [facility] Hemoglobin x 3 30.0(L) 33.6 - 47.1 g/dL [facility] 03/08/2025 3:00 AM EDT 03/09/2025 1:56 PM EDT Jeffy Tineo MD LAB BLOOD ORDERABLES Final Re sult Performing Organization Address [facility]/ZIP Co de Phone Number [facility] [address] [place] [address] * (ABNORMAL) Kt/V Natural Log, URR (02/22/2025 3:00 AM EDT) Only the most recent of3 resultswithin the time period is included. [facility] Treatment Time 205 min [facility] Pre-Weight, lb 101.8 kg [facility] Post-Weight, lb 98.2 kg [facility] Ultrafiltration Rate 11 <=13 mL/kg/hr [facility] Comment: Recommend achieving Ultrafiltration Rate (UFR) <=10 mL/kg/hr References: Charley TODD et al. Kidney Int. 2010; 79(2):250-257 BUN 67(H) 7 - 25 mg/dL [facility] BUN Post Dialysis 22 7 - 25 mg/dL [facility] UREA REDUCTION RATIO (%) 67 >=65 % [facility] Kt/V Natural Log 1.31 >=1.2 [facility] 02/22/2025 3:00 AM EDT 02/23/2025 1:33 PM EDT Jeffy Tineo MD LAB [id number] SOLICITED RESULTS Final Result Performing Organization Address [facility]/ZIP Co de Phone Number [facility] [address] [place] [address] * (ABNORMAL) Calcium Phosphorus Product, Adjusted (02/22/2025 3:00 AM EDT) Only the most recent of3 resultswithin the time period is included. Albumin 4.4 3.6 - 5.4 g/dL [facility] Calcium 9.8 8.6 - 10.3 mg/dL [facility] Phosphorus, Serum 5.7(H) 2.5 - 5.0 mg/dL [facility] Ca*PO4 55.9(A) <55.0 mg2/dL2 [facility] Calcium, Adjusted Total 9.8 8.6 - 10.3 mg/dL [facility] CA*PO4 CORRCTD 55.9(A) <55.0 mg2/dL2 [facility] 02/22/2025 3:00 AM EDT 02/23/2025 1:41 PM EDT us Jeffy Tineo MD LAB [id number] SOLICITED RESULTS Final Result Performing Organization Address [facility] de Phone Number [facility] [address] [place] [address] * BUN/CREATININE RATIO (02/22/2025 3:00 AM EDT) Only the most recent of3 resultswithin the time period is included. BUN/Creatinine Ratio 8.4 <=23.0 [facility] 02/22/2025 3:00 AM EDT 02/23/2025 1:41 PM EDT us Jeffy Tineo MD LAB [id number] SOLICITED RESULTS Final Result Performing Organization Address [facility]/ZIP Co de Phone Number [facility] [address] [place] [address] * (ABNORMAL) TSAT (02/22/2025 3:00 AM EDT) Only the most recent of3 resultswithin the time period is included. Iron 78 50 - 170 ug/dL [facility] Transferrin 194(L) 250 - 380 mg/dL [facility] TIBC 272 211 - 406 ug/dL [facility] Iron Saturation (TSat) 29 22 - 52 % [facility] 02/22/2025 3:00 AM EDT 02/23/2025 1:41 PM EDT Jeffy Tineo MD LAB BLOOD ORDERABLES Final Re sult Performing Organization Address [facility]/ZIP Co de Phone Number [facility] [address] [place] [address] * (ABNORMAL) CBC and Differential (02/22/2025 3:00 AM EDT) Only the most recent of3 resultswithin the time period is included. DIFFERENTIAL MANUAL, 2 Not Indicated [facility] White Blood Cells 9.0 4.0 - 10.0 K/uL [facility] RBC 3.00(L) 3.93 - 5.22 M/uL [facility] Hgb 9.5(L) 11.2 - 15.7 g/dL [facility] Hemoglobin x 3 28.5(L) 33.6 - 47.1 g/dL [facility] Hematocrit 28.4(L) 34.1 - 44.9 % [facility] MCV 94.7 79.4 - 94.8 fL [facility] MCH 31.7 25.6 - 32.2 pg [facility] MCHC 33.5 32.2 - 35.5 g/dL [facility] RDW 15.1(H) 11.7 - 14.4 % [facility] Platelets 168(L) 182 - 369 K/uL [facility] MPV 12.6 9.2 - 12.8 fL [facility] Neutrophils Relative 72.1(H) 34.0 - 71.1 % [facility] Lymphocytes Relative 16.4(L) 19.3 - 51.7 % [facility] Monocytes 5.0 4.7 - 12.5 % [facility] Eosinophils Relative 4.8 0.7 - 5.8 % [facility] Basophils Relative 0.6 0.1 - 1.2 % [facility] Immature Granulocytes 1.1(H) 0.0 - 1.0 % [facility] 02/22/2025 3:00 AM EDT 02/23/2025 1:39 PM EDT Jeffy Tineo MD LAB BLOOD ORDERABLES Final Re sult Performing Organization Address [facility]/ZIP Co de Phone Number [facility] [address] [place] [address] * ALT (02/22/2025 3:00 AM EDT) Only the most recent of3 resultswithin the time period is included. ALT (SGPT) 28 10 - 49 U/L [facility] 02/22/2025 3:00 AM EDT 02/23/2025 1:41 PM EDT Jeffy Tineo MD LAB BLOOD ORDERABLES Final Re sult Performing Organization Address [facility] Co de Phone Number [facility] [address] [place] [address] * AST (02/22/2025 3:00 AM EDT) Only the most recent of3 resultswithin the time period is included. AST (SGOT) 18 <34 U/L [facility] 02/22/2025 3:00 AM EDT 02/23/2025 1:41 PM EDT Jeffy Tineo MD LAB BLOOD ORDERABLES Final Re sult Performing Organization Address [facility] de Phone Number [facility] [address] [place] [address] * Protein, total (02/22/2025 3:00 AM EDT) Only the most recent of3 resultswithin the time period is included. Total Protein 7.1 6.4 - 8.9 g/dL [facility] 02/22/2025 3:00 AM EDT 02/23/2025 1:41 PM EDT Jeffy Tineo MD LAB BLOOD ORDERABLES Final Re sult Performing Organization Address [facility] de Phone Number [facility] [address] [place] [address] * (ABNORMAL) Alkaline phosphatase (02/22/2025 3:00 AM EDT) Only the most recent of3 resultswithin the time period is included. Alkaline Phosphatase 180(H) 46 - 116 U/L [facility] 02/22/2025 3:00 AM EDT 02/23/2025 1:41 PM EDT us Jeffy Tineo MD LAB BLOOD ORDERABLES Final Re sult Performing Organization Address [facility] de Phone Number [facility] [address] [place] [address] * PTH, Intact (02/22/2025 3:00 AM EDT) PTH, Intact 624 160 - 721 pg/mL [facility] Comment: Suggested (KDIGO) ESRD maintenance range is two to nine times the upper normal limit (80.1 pg/mL) for the laboratory. 02/22/2025 3:00 AM EDT 02/23/2025 1:41 PM EDT Jeffy Tineo MD LAB BLOOD ORDERABLES Final Re sult Performing Organization Address [facility] de Phone Number [facility] [address] [place] [address] * Magnesium (02/22/2025 3:00 AM EDT) Only the most recent of3 resultswithin the time period is included. Magnesium 2.3 1.9 - 2.7 mg/dL [facility] 02/22/2025 3:00 AM EDT 02/23/2025 1:41 PM EDT Jeffy Tineo MD LAB BLOOD ORDERABLES Final Re sult Performing Organization Address [facility] de Phone Number [facility] [address] [place] [address] * (ABNORMAL) Lactate dehydrogenase (02/22/2025 3:00 AM EDT) Only the most recent of3 resultswithin the time period is included. LDH 364(H) 120 - 246 U/L [facility] 02/22/2025 3:00 AM EDT 02/23/2025 1:41 PM EDT Jeffy Tineo MD LAB BLOOD ORDERABLES Final Re sult Performing Organization Address [facility] de Phone Number [facility] [address] [place] [address] * (ABNORMAL) Hemoglobin A1c (02/22/2025 3:00 AM EDT) Hemoglobin A1C 10.2(H) <5.7 % [facility] Comment: Methodology: Enzymatic Normal: <5.7% Prediabetes: 5.7-6.4% Diabetes: >6.4% Diabetic Glucose Control Evaluation: Therapeutic action suggested at >8.0% ADA recommends a glycemic goal of <7.0% 02/22/2025 3:00 AM EDT 02/23/2025 1:39 PM EDT Jeffy Tineo MD LAB BLOOD ORDERABLES Final Re sult Performing Organization Address [facility] de Phone Number [facility] [address] [place] [address] * (ABNORMAL) Glucose, random (02/22/2025 3:00 AM EDT) Only the most recent of3 resultswithin the time period is included. Glucose 212(H) 70 - 99 mg/dL [facility] Comment: ADA guidelines outline the following fasting glucose ranges: Normal: <100 Prediabetes: 100-125 Diabetes: >125 02/22/2025 3:00 AM EDT 02/23/2025 1:41 PM EDT Jeffy Tineo MD LAB BLOOD ORDERABLES Final Re sult Performing Organization Address [facility] de Phone Number [facility] [address] [place] [address] * (ABNORMAL) Ferritin (02/22/2025 3:00 AM EDT) Only the most recent of3 resultswithin the time period is included. Ferritin 1,379(H) 10 - 291 ng/mL [facility] 02/22/2025 3:00 AM EDT 02/23/2025 1:41 PM EDT Jeffy Tineo MD LAB BLOOD ORDERABLES Final Re sult Performing Organization Address [facility] de Phone Number [facility] [address] [place] [address] * (ABNORMAL) Creatinine, serum (02/22/2025 3:00 AM EDT) Only the most recent of3 resultswithin the time period is included. Creatinine 7.99(H) 0.55 - 1.02 mg/dL [facility] 02/22/2025 3:00 AM EDT 02/23/2025 1:41 PM EDT Jeffy Tineo MD LAB BLOOD ORDERABLES Final Re sult Performing Organization Address [facility] de Phone Number [facility] [address] [place] [address] * Bilirubin, total (02/22/2025 3:00 AM EDT) Only the most recent of3 resultswithin the time period is included. Total Bilirubin 0.6 0.3 - 1.2 mg/dL [facility] 02/22/2025 3:00 AM EDT 02/23/2025 1:41 PM EDT Jeffy Tineo MD LAB BLOOD ORDERABLES Final Re sult Performing Organization Address [facility] de Phone Number [facility] [address] [place] [address] * (ABNORMAL) Lipid panel (02/22/2025 3:00 AM EDT) Cholesterol 72 mg/dL [facility] Comment: Optimal: <200 Borderline: 200-239 High Risk: >239 Triglycerides 92 mg/dL [facility] Comment: Optimal: <150 Borderline: 150-200 High Risk: >200 HDL 33(L) mg/dL [facility] Comment: Optimal: >59 Borderline: 40-59 High Risk: <40 LDL-Calc 21 mg/dL [facility] Comment: Optimal: <100 Borderline: 100-159 High Risk: >159 VLDL Cholesterol Isma 18 mg/dL [facility] Comment: Optimal: <30 Borderline: 30-40 High Risk: >40 Chol/HDL Ratio 2.2 [facility] Comment: Optimal: <3.3 High Risk: >6.2 02/22/2025 3:00 AM EDT 02/23/2025 1:41 PM EDT Jeffy Tineo MD LAB BLOOD ORDERABLES Final Re sult Performing Organization Address [facility] Co de Phone Number [facility] [address] [place] [address] * (ABNORMAL) Electrolyte panel (02/22/2025 3:00 AM EDT) Only the most recent of3 resultswithin the time period is included. Sodium 136 136 - 145 mEq/L [facility] Potassium 4.9 3.4 - 5.0 mEq/L [facility] Chloride 97(L) 98 - 107 mEq/L [facility] Bicarbonate (CO2) 24 21 - 31 mEq/L [facility] Anion Gap 15(H) 3 - 14 mEq/L [facility] 02/22/2025 3:00 AM EDT 02/23/2025 1:41 PM EDT Jeffy Tineo MD LAB BLOOD ORDERABLES Final Re sult Performing Organization Address [facility] Co de Phone Number [facility] [address] [place] [address] * Potassium (02/15/2025 3:00 AM EDT) Only the most recent of3 resultswithin the time period is included. Potassium 4.5 3.4 - 5.0 mEq/L [facility] 02/15/2025 3:00 AM EDT 02/16/2025 1:16 PM EDT Jeffy Tineo MD LAB BLOOD ORDERABLES Final Re sult Performing Organization Address [facility] de Phone Number [facility] [address] [place] [address] * (ABNORMAL) Hemoglobin (02/10/2025 3:00 AM EDT) Only the most recent of4 resultswithin the time period is included. Hgb 10.9(L) 11.2 - 15.7 g/dL [facility] Hemoglobin x 3 32.7(L) 33.6 - 47.1 g/dL [facility] 02/10/2025 3:00 AM EDT 02/11/2025 12:55 PM EDT Jeffy Tineo MD LAB BLOOD ORDERABLES Final Re sult Performing Organization Address [facility] Co de Phone Number [facility] [address] [place] [address] * CO2 (02/01/2025 3:00 AM EDT) Bicarbonate (CO2) 28 21 - 31 mEq/L [facility] 02/01/2025 3:00 AM EDT 02/02/2025 2:18 PM EDT Jeffy Tineo MD LAB BLOOD ORDERABLES Final Re sult Performing Organization Address [facility] de Phone Number [facility] [address] [place] [address] from Last 3 [address] [place] [address] Medicaid [place] Care Teams Workforce Development Assistant Relationship Specialty Start Date End Date Ines Zamora MD [address] [place] [phone] PCP - General 06/04/20
--- OUTSIDE RECORDS SUMMARY | 2025-03-21 13:07 | XMS_ITS | Encounter Summary ---
Author Organization [employer] Address [address] [facility] [address]t [place] [address] Care Team Providers Care Conference Organizer Name Role Phone Faith Mason MD Primary Care Provide r Reason for Visit * Reason Comments Med Refill Encounter Details Date Type Department Care Team ([facility] st Contact Info) Description 08/11/2023 Refill [facility] [address] [place], [place] [phone] Faith Mason MD [address] [place], [place] [phone] Social History Tobacco Use Types Packs/Day Years [...] Description 05/11/2025 10:45 AM EST Office Visit [facility] [address] [place] [phone] Faith Mason MD [address] [place] [phone] documented as of this encounter Visit Diagnoses Not on filedocumented in this encounter Additional Health Concerns Assessment Noted Time PHQ-9 Depression Total Score: 14 023 2:21 PM EDT documented as of this encounter Care Teams Conference Organizer Relationship Specialty Start Date End Date Faith Mason MD [address] [place] [phone] PCP - General Family Medicine 04/12/19 Linda Peralta Cook Apprentice PastryResaw Operator 06/08/24 documented as of this encounter
--- OUTSIDE RECORDS SUMMARY | 2025-03-21 13:07 | XMS_ITS | Encounter Summary ---
Author Organization [employer] Address [address] [facility] [address]t [place] [address] Care Team Providers Care Vice President Of Software Engineering Name Role Phone Faith Mason MD Primary Care Provide r Reason for Visit * Reason Comments Med Refill Encounter Details Date Type Department Care Team ([facility] st Contact Info) Description 04/05/2024 Refill [facility] [address] [place], [place] [phone] Faith Mason MD [address] [place], [place] [phone] Atrial flutter, unspecified type (CMS/HCC); Diabetic polyneuropathy [...] the past 12 months, has t he [employer], gas, oil or water [employer] threatened to shut off services in your [...] 05/11/2025 10:45 AM EST Office Visit [facility] [address] [place] [address] Faith Mason MD [address] [place] [address] documented as of this encounter Visit Diagnoses Diagnosis Atrial flutter, unspecified type (CMS/HCC) (HCC) Diabetic polyneuropathy associated with type 2 diabetes mellitus (HCC) documented in this encounter Additional Health Concerns Assessment Noted Time PHQ-9 Depression Total Score: 6 11/24/19 24 2:35 PM EDT documented as of this encounter Care Teams Vice President Of Software Engineering Relationship Specialty Start Date End Date Faith Mason MD [address] [place] [address] PCP - General Family Medicine 04/12/19 Linda Peralta Hydraulic Controls TechnicianPolice District Switchboard Operator 06/08/24 documented as of this encounter
--- OUTSIDE RECORDS SUMMARY | 2025-03-21 13:07 | XMS_ITS | Encounter Summary ---
Author Organization [employer] Address [address] [facility] 7t [place] [address] Care Team Providers Care Wool Carder Name Role Phone Faith Mason MD Primary Care Provide r Reason for Visit * Reason Comments Med Refill Encounter Details Date Type Department Care Team ([facility] st Contact Info) Description 09/25/2024 Refill [facility] [address] [place], [place] [phone] Faith Mason MD [address] [place], [place] [phone] Essential hypertension Social History Tobacco Use Types [...] 05/11/2025 10:45 AM EST Office Visit [facility] [address] [place] [address] Faith Mason MD [address] [place] [phone] documented as of this encounter Visit Diagnoses Diagnosis Essential hypertension Unspecified essential hypertension documented in this encounter Additional Health Concerns Assessment Noted Time PHQ-9 Depression Total Score: 6 11/24/19 24 2:35 PM EDT documented as of this encounter Care Teams Wool Carder Relationship Specialty Start Date End Date Faith Mason MD [address] [place], [place] [phone] PCP - General Family Medicine 04/12/19 Linda Peralta Importer Or ExporterStudent Truck Driver 06/08/24 documented as of this encounter
--- OUTSIDE RECORDS SUMMARY | 2025-03-21 13:07 | XMS_ITS | Encounter Summary ---
Author Organization [employer] Address [address] [facility] 7t [place] [address] Care Team Providers Care Superintendent Marine Name Role Phone Faith Mason MD Primary Care Provide r Encounter Details Date Type Department Care Team ([facility] st Contact Info) Description 03/08/2024 Orders Only [facility] MEDICINE [address] [place], [place] [phone] Faith Mason MD [address] [place], [place] [phone] Social History Tobacco Use Types Packs/Day Years [...] Description 05/11/2025 10:45 AM EST Office Visit [facility] MEDICINE [address] [place] [address] Faith Mason MD [address] [place] [address] documented as of this encounter Visit Diagnoses Not on filedocumented in this encounter Additional Health Concerns Assessment Noted Time PHQ-9 Depression Total Score: 6 11/24/19 24 2:35 PM EDT documented as of this encounter Care Teams Superintendent Marine Relationship Specialty Start Date End Date Faith Mason MD [address] [place] [address] PCP - General Family Medicine 04/12/19 Linda Peralta Frontload DriverCompressed Yeast Supervisor 06/08/24 documented as of this encounter
--- OUTSIDE RECORDS SUMMARY | 2025-03-21 13:07 | XMS_ITS | Encounter Summary ---
Author Organization [employer] Address [address] [facility] 7t [place] [address] Care Team Providers Care Litigation Claim Representative Name Role Phone Faith Mason MD Primary Care Provide r Reason for Visit * Reason Comments Med Refill Encounter Details Date Type Department Care Team ([facility] st Contact Info) Description 04/04/2024 Refill [facility] CHC MED & PEDS [address] [place], [place] [phone] Faith Mason MD [address] [place], [place] [phone] Essential hypertension Social History Tobacco Use Types [...] Description 05/11/2025 10:45 AM EST Office Visit [facility] MEDICINE [address] [place] [address] Faith Mason MD [address] [place] [address] documented as of this encounter Visit Diagnoses Diagnosis Essential hypertension Unspecified essential hypertension documented in this encounter Additional Health Concerns Assessment Noted Time PHQ-9 Depression Total Score: 6 11/24/19 24 2:35 PM EDT documented as of this encounter Care Teams Litigation Claim Representative Relationship Specialty Start Date End Date Faith Mason MD [address] [place], [place] [phone] PCP - General Family Medicine 04/12/19 Linda Peralta Editor Trade JournalManager Income Tax 06/08/24 documented as of this encounter
--- OUTSIDE RECORDS SUMMARY | 2025-03-21 13:07 | XMS_ITS | Encounter Summary ---
Author Organization [employer] Address [address] [facility] 7t [place] [address] Care Team Providers Care Maintenance And Custodian Supervisor Name Role Phone Faith Mason MD Primary Care Provide r Reason for Visit * Reason Onset Date Comments FYI 08/13/2023 Encounter Details Date Type Department Care Team ([facility] st Contact Info) Description 08/13/2023 Telephone [facility] MEDICINE [address] [place], [place] [phone] Faith Mason MD [address] [place], [place] [phone] FYI Social History Tobacco Use Types Packs/Day [...] of today. Any questions contact Tameka at [phone] documented in this encounter Plan of Treatment Upcoming Encounters Date Type Department Care Team (Late st Contact Info) Description 05/11/2025 10:45 AM EST Office Visit [facility] MEDICINE [address] [place] [address] Faith Mason MD [address] [place] [address] documented as of this encounter Visit Diagnoses Not on filedocumented in this encounter Additional Health Concerns Assessment Noted Time PHQ-9 Depression Total Score: 14 023 2:21 PM EDT documented as of this encounter Care Teams Maintenance And Custodian Supervisor Relationship Specialty Start Date End Date Faith Mason MD [address] [place] [phone] PCP - General Family Medicine 04/12/19 Linda Peralta Treating Plant PumperWaiter/Waitress Counter 06/08/24 documented as of this encounter
--- OUTSIDE RECORDS SUMMARY | 2025-03-21 13:07 | XMS_ITS | Clinical Summary ---
Author Organization [facility] Address [address] [address] Phone Care Team Providers Care Compliance Auditor Name Role Phone Ines Zamora MD Primary [...] (#1) 2024 9, 03/26/2018 COVID-19 VACCINE (2 - 2024-2 6 season) 2025 07/05/2020 RSV VACCINE (1 - 1-dose 75+ series) 2041 HEPATITIS A VACCINES Aged Out No long [...] ACO C3 ACO C3 ACO C[address] [place] [address] [place] [address] C3 ACO [facility] C3 ACO Care Teams Compliance Auditor Relationship Specialty Start Date End Date Ines Zamora MD [address] [place] [address] [address] [place] [phone] PCP - General Internal Medicine 02/23/19 Additional Source Comments The information contained in this document represents components of the legal health record. It is not the complete legal health record.[facility]
== END 2025-03-21 11:14 | disposition home or self-care (01) ==
LOC: HO.HPODS 10:30
PROVIDERS: PCP Internal Medicine; Visit Provider Student in an Organized Health Care Education/Training Program
DX: E11.22 Type 2 diabetes mellitus with diabetic chronic kidney disease (principal); N18.6 End stage renal disease; B35.3 Tinea pedis; M20.21 Hallux rigidus, right foot; M20.22 Hallux rigidus, left foot; B35.1 Tinea unguium; R23.0 Cyanosis
CPT/HCPCS: 11721; 99204

== ENCOUNTER 2025-03-21 10:29 | Outpatient (REF) | payer MEDICAID, SELFPAY | END 2025-03-21 10:30 | disposition home or self-care (01) | LOC: HO.LNP 10:29 | PROVIDERS: PCP Internal Medicine; Visit Provider Student in an Organized Health Care Education/Training Program | DX: I12.0 Hypertensive chronic kidney disease with stage 5 chronic kidney disease or end stage renal disease (principal); N18.6 End stage renal disease; E11.22 Type 2 diabetes mellitus with diabetic chronic kidney disease; B35.1 Tinea unguium; B35.3 Tinea pedis; M20.21 Hallux rigidus, right foot; M20.22 Hallux rigidus, left foot; R23.0 Cyanosis | CPT/HCPCS: 87101; 87220; 88304; 88311; 88312 ==

== ENCOUNTER 2025-03-23 12:20 | Outpatient (REF) | payer MEDICAID, SELFPAY ==
--- NOTE | ~2025-03-23 | XR_ITS ---
EXAMINATION: XR FOOT, bilateral CLINICAL INFORMATION: M20.20 - Hallux rigidus, unspecified foot COMPARISON: Previous x-ray March 2023 TECHNIQUE: AP, lateral, and oblique views of both feet weightbearing FINDINGS: Right: Bone alignment is normal. No fracture or dislocation. Mild arthritis of the first MTP joint with joint space narrowing and osteophyte formation. Calcaneal spurs. Soft tissue arterial calcification. Left foot: Bone alignment is normal. No fracture or dislocation. Mild arthritis at the first MTP joint with joint space narrowing and small osteophytes. Calcaneal spurs. Soft tissue arterial calcification. XR/XR Foot Siddhartha 3V IMPRESSION: Mild arthritis at the first MTP joints and calcaneal spurs bilaterally. Electronically signed by: Mary Morel MD 03/23/2025 12:51 PM EDT
[2025-03-23 13:29] LABS: MANUAL DIFF FLAG NO
[2025-03-23 13:47] LABS: Hematocrit 30.2 % (37.0-47.0); Hemoglobin 9.7 g/dl (12.0-16.0); Imm Gran Abs Auto 0.02 X10*3/uL (0.00-0.03); Imm Gran Pct Auto 0.3 % (0.0-0.4); Lymphocytes Absolute Auto 1.1 X10*3/uL (1.2-4.9); Mean Corpuscular HGB Conc 32.1 g/dl (31.0-35.0); Mean Corpuscular Hemoglobin 31.5 pg (27.0-33.0); Mean Corpuscular Volume 98.1 fL (80.0-98.0); NRBC Abs Auto 0.000 X10*3/uL (0.0-0.012); NRBC Pct Auto 0.0 /100WBC (0.0-0.2); Platelet Count 195 X10*3/uL (160-400); Red Blood Count 3.08 X10*6/uL (4.20-5.50); White Blood Count 6.3 X10*3/uL (4.8-10.8)
[2025-03-23 14:47] LABS: Alanine Aminotransferase 18 U/L (0-31); Albumin Level 4.1 g/dL (3.5-5.0); Alkaline Phosphatase 136 U/L (39-117); Anion Gap 16 (12-20); Aspartate Amino Transferase 21 U/L (5-31); Blood Urea Nitrogen 49 mg/dL (9-16); Calcium 9.9 mg/dL (8.4-10.2); Carbon Dioxide 28 mmol/L (22-29); Chloride 98 mmol/L (96-108); Cholesterol 71 mg/dL (<200); Estimated Glomerular Filt Rate 7; HDL Cholesterol 28 mg/dL (>40); Potassium 5.4 mmol/L (3.3-5.1); Sodium 137 mmol/L (135-145); Total Protein 7.6 g/dL (6.5-8.0); Triglycerides 111 mg/dL (<150)
[2025-03-23 15:02] LABS: Free T4 (Free Thyroxine) 1.03 ng/dL (0.71-1.85); Thyroid Stimulating Hormone 2.87 uIU/mL (0.32-4.0)
--- OUTSIDE RECORDS SUMMARY | 2025-03-23 15:11 | XMS_ITS | Encounter Summary ---
Author Organization [employer] Address [address] [facility] 7t [place] [address] Care Team Providers Care Machine Packer Name Role Phone Faith Mason MD Primary Care Provide r Reason for Visit * Reason Comments Med Refill Encounter Details Date Type Department Care Team ([facility] st Contact Info) Description 11/18/2024 Refill [facility] MEDICINE [address] [place], [place] [phone] Faiht Mason MD [address] [place], [place] [phone] Right arm pain; Numbness and tingling of [...] Visit [facility] MEDICINE [address] [place] [address] Faith Mason MD [address] [place] [address] documented as of this encounter Visit Diagnoses Diagnosis Right arm pain Pain in soft tissues of limb Numbness and tingling of right arm documented in this encounter Additional Health Concerns Assessment Noted Time PHQ-9 Depression Total Score: 6 11/24/19 24 2:35 PM EDT documented as of this encounter Care Teams Machine Packer Relationship Specialty Start Date End Date Faith Mason MD [address] [place] [address] PCP - General Family Medicine 04/12/19 Linda Peralta Fire Investigation ManagerWood Cabinetmaker 06/08/24 documented as of this encounter
--- OUTSIDE RECORDS SUMMARY | 2025-03-23 15:11 | XMS_ITS | Encounter Summary ---
Author Organization [employer] Address 75 [facility] 7t [place] [address] Care Team Providers Care Manager Pricing Name Role Phone Faith Mason MD Primary Care Provide r Encounter Details Date Type Department Care Team ([facility] st Contact Info) Description 03/08/2024 Orders Only [facility] MEDICINE [address] [place], [place] [phone] Faith Mason MD [address] [place], [place] [phone] Social History Tobacco Use Types Packs/Day Years [...] Description 05/11/2025 10:45 AM EST Office Visit [facility] MEDICINE [address] [place] [address] Faith Mason MD [address] [place] [address] documented as of this encounter Visit Diagnoses Not on filedocumented in this encounter Additional Health Concerns Assessment Noted Time PHQ-9 Depression Total Score: 6 11/24/19 24 2:35 PM EDT documented as of this encounter Care Teams Manager Pricing Relationship Specialty Start Date End Date Faith Mason MD [address] [place] [address] PCP - General Family Medicine 04/12/19 Linda Peralta [facility] Home Health Aides TeacherMotorboat Operator 06/08/24 documented as of this encounter
--- OUTSIDE RECORDS SUMMARY | 2025-03-23 15:11 | XMS_ITS | Encounter Summary ---
Author Organization [employer] Address [address] [facility] 7t [place] [address] Care Team Providers Care Diet Kitchen Cook Name Role Phone Faith Mason MD Primary Care Provide r Encounter Details Date Type Department Care Team ([facility] st Contact Info) Description 08/05/2024 Telephone [facility] MEDICINE [address] [place], [place] [phone] Faith Mason MD [address] [place], [place] [phone] Social History Tobacco Use Types Packs/Day Years [...] 10:45 AM EST Office Visit [facility] MEDICINE [address] [place] [address] Faith Mason MD [address] [place] [address] documented as of this encounter Visit Diagnoses Not on filedocumented in this encounter Additional Health Concerns Assessment Noted Time PHQ-9 Depression Total Score: 6 11/24/19 24 2:35 PM EDT documented as of this encounter Care Teams Diet Kitchen Cook Relationship Specialty Start Date End Date Faith Mason MD [address] [place], [place] [phone] PCP - General Family Medicine 04/12/19 Linda Peratla Grill CookWine Pasteurizer 06/08/24 documented as of this encounter
--- OUTSIDE RECORDS SUMMARY | 2025-03-23 15:11 | XMS_ITS | Encounter Summary ---
Author Organization [employer] Address 75 [facility] 7t [place] [address] Care Team Providers Care Inspector Casing Name Role Phone Faith Mason MD Primary Care Provide r Reason for Visit * Reason Comments Med Refill Encounter Details Date Type Department Care Team ([facility] st Contact Info) Description 09/25/2024 Refill [facility] MEDICINE [address] [place], [place] [phone] Faith Mason MD [address] [place], [place] [phone] Essential hypertension Social History Tobacco Use Types [...] Description 05/11/2025 10:45 AM EST Office Visit [facility] MEDICINE [address] [place] [address] Faith Mason MD [address] [place] [address] documented as of this encounter Visit Diagnoses Diagnosis Essential hypertension Unspecified essential hypertension documented in this encounter Additional Health Concerns Assessment Noted Time PHQ-9 Depression Total Score: 6 11/24/19 24 2:35 PM EDT documented as of this encounter Care Teams Inspector Casing Relationship Specialty Start Date End Date Faith Mason MD [address] [place], [place] [phone] PCP - General Family Medicine 04/12/19 Linda Peralta [employer] CoxswainOrthopedic Specialist 06/08/24 documented as of this encounter
--- OUTSIDE RECORDS SUMMARY | 2025-03-23 15:11 | XMS_ITS | Encounter Summary ---
Author Organization [employer] Address [address] [facility] 7t [place] [address] Care Team Providers Care Maritime Pilot Name Role Phone Faith Mason MD Primary Care Provide r Encounter Details Date Type Department Care Team ([facility] st Contact Info) Description 08/05/2024 Telephone [facility] MEDICINE [address] [place], [place] [phone] Faith Mason MD [address] [place], [place] [phone] Social History Tobacco Use Types Packs/Day Years [...] Description 05/11/2025 10:45 AM EST Office Visit [facility] MEDICINE [address] [place] [address] Faith Mason MD [address] [place] [address] documented as of this encounter Visit Diagnoses Not on filedocumented in this encounter Additional Health Concerns Assessment Noted Time PHQ-9 Depression Total Score: 6 11/24/19 24 2:35 PM EDT documented as of this encounter Care Teams Maritime Pilot Relationship Specialty Start Date End Date Faith Mason MD [address] [place], [place] [phone] PCP - General Family Medicine 04/12/19 Linda Peralta Baggage Security CheckerMeter Shop Supervisor 06/08/24 documented as of this encounter
--- OUTSIDE RECORDS SUMMARY | 2025-03-23 15:12 | XMS_ITS | Encounter Summary ---
Author Organization [employer] Address [address] [facility] 7t [place] [address] Care Team Providers Care Bsa/Aml Compliance Officer Name Role Phone Faith Mason MD Primary Care Provide r Reason for Visit * Reason Comments Med Refill Encounter Details Date Type Department Care Team ([facility] st Contact Info) Description 04/05/2024 Refill [facility] CHC MED & PEDS [address] [place], [place] [phone] Faith Mason MD [address] [place], [place] [phone] Atrial flutter, unspecified type (CMS/HCC); Diabetic polyneuropathy [...] the past 12 months, has t he Age of [employer], gas, oil or water [employer] threatened to shut off services in your [...] Description 05/11/2025 10:45 AM EST Office Visit [facility] MEDICINE [address] [place] [address] Faith Mason MD [address] [place] [address] documented as of this encounter Visit Diagnoses Diagnosis Atrial flutter, unspecified type (CMS/HCC) (HCC) Diabetic polyneuropathy associated with type 2 diabetes mellitus (HCC) documented in this encounter Additional Health Concerns Assessment Noted Time PHQ-9 Depression Total Score: 6 11/24/19 24 2:35 PM EDT documented as of this encounter Care Teams Bsa/Aml Compliance Officer Relationship Specialty Start Date End Date Faith Mason MD [address] [place] [address] PCP - General Family Medicine 04/12/19 Linda Peralta Diesel Mechanic FarmTransplant Nurse Practitioner 06/08/24 documented as of this encounter
--- OUTSIDE RECORDS SUMMARY | 2025-03-23 15:12 | XMS_ITS | Encounter Summary ---
Author Organization [facility] Address [address] [phone] Phone Care Team Providers Care Nuclear Equipment Test Engineer Name Role Phone Ines Zamora MD Primary Care Provider + [phone] Reason for Visit * Reason Comments Med Refill Encounter Details Date Type Department Care Team ([facility] st Contact Info) Description 03/19/2025 Refill [facility] [address] [phone] Jeffy Tineo MD [address] [phone] Social History Tobacco Use Types [...] on filedocumented in this encounter Care Teams Nuclear Equipment Test Engineer Relationship Specialty Start Date End Date Ines Zamora MD [address] [place] [address] [place] [address] PCP - General 06/04/20 documented as of this encounter
--- OUTSIDE RECORDS SUMMARY | 2025-03-23 15:12 | XMS_ITS | Encounter Summary ---
Author Organization [employer] Address [address] [place] [address] 7t [place] [address] Care Team Providers Care Comic Artist Name Role Phone Faith Mason MD Primary Care Provide r Reason for Visit * Reason Comments Med Change Request Encounter Details Date Type Department Care Team ([facility] Contact Info) Description 11/28/2022 Refill [facility] MEDICINE [address] [place], [place] [phone] Faith Mason MD [address] [place] [address] Type 2 diabetes mellitus with hyperglycemia, with long-term current use of insulin ([facility]) Social History Tobacco Use Types [...] Description 05/11/2025 10:45 AM EST Office Visit [facility] MEDICINE [address] [place] [address] Faith Mason MD [address] [place] [address] documented as of this encounter Visit Diagnoses Diagnosis Type 2 diabetes mellitus with hyperglycemia, with long-term current use of insulin (HCC) documented in this encounter Additional Health Concerns Assessment Noted Time PHQ-9 Depression Total Score: 14 023 2:21 PM EDT documented as of this encounter Care Teams Comic Artist Relationship Specialty Start Date End Date Faith Mason MD [address] [place] [address] PCP - General Family Medicine 04/12/19 Linda Peralta Machine MaintenancePv Design Engineer 06/08/24 documented as of this encounter
--- OUTSIDE RECORDS SUMMARY | 2025-03-23 15:12 | XMS_ITS | Encounter Summary ---
Author Organization [employer] Address 75 [facility] 7t [place] [address] Care Team Providers Care Drop Forger Name Role Phone Faith Mason MD Primary Care Provide r Reason for Visit * Reason Comments Med Refill Encounter Details Date Type Department Care Team ([facility] st Contact Info) Description 08/11/2023 Refill [facility] MEDICINE 230 [place], [place] [phone] Faith Mason MD [address] [place], [place] [phone] Social History Tobacco Use Types Packs/Day Years [...] Office Visit [facility] MEDICINE [address] [place] [address] Faith Mason MD [address] [place] [address] documented as of this encounter Visit Diagnoses Not on filedocumented in this encounter Additional Health Concerns Assessment Noted Time PHQ-9 Depression Total Score: 14 023 2:21 PM EDT documented as of this encounter Care Teams Drop Forger Relationship Specialty Start Date End Date Faith Mason MD [address] [place] [address] PCP - General Family Medicine 04/12/19 Linda Peralta Skimmer Scoop OperatorCollections Technician 06/08/24 documented as of this encounter
--- OUTSIDE RECORDS SUMMARY | 2025-03-23 15:12 | XMS_ITS | Clinical Summary ---
Author Organization [employer] Address [address] [place] [address] 7[address] [place] [address] Care Team Providers Care Jet Engine Mechanic Name Role Phone Faith Mason MD Primary [...] 024 Active Blood Glucose Monitoring Suppl (FreeStyle [place] Lite) w/Device kitIndications: Type 2 diabetes mellitus with hyperglycemia, with long-term current use of insulin (HCC) Use to test blood sugar 3 times daily 1 kit Active TRUEplus Lancets 33G miscIndications :Type 2 diabetes mellitus with hyperglycemia, with long-term current use of insulin ([facility]) TEST BLOOD SUGAR THREE TIMES [...] hyperglycemia, with long-term current use of insulin ([facility]) INJECT 28 UNITS SUBCUTANEOUSLY EVERY DAY 6 mL 1 Active guaiFENesin 200 MG/10ML liquidIndicatio ns:Acute cough Take 10 mL by mouth every 6 (six) hours if needed (take for cough if needed). 236 mL Active brimonidine (AlphaGAN) 0.2 % ophthalmic solution Administer 1 drop into the left eye 3 times daily. Active Continuous Glucose Principal Programmer (FreeStyle Tika 3 Panacea) device Use as directed Active Continuous Glucose [...] MG tabletIndicatio ns:Atrial flutter, unspecified type (CMS/HCC) ([facility]) TAKE 1 TABLET BY MOUTH TWICE DAILY [...] 01/19/2025 AMARJIT on CPAP 01/19/2025 Pulmonary HTN ([facility]) 01/19/2025 Obesity due to excess calories 01/19/2025 Severe obesity (BMI 35.0-39.9) with comorbidity ([facility]) 01/19/2025 Unstable angina ([facility]) 01/19/2025 Chest pain 01/19/2025 CAD (coronary artery disease) 01/19/2025 Chronic kidney disease with end stage renal failure on dialysis ([facility]) 01/19/2025 Acid reflux 01/19/2025 Overview (01/19/2025): EGD-r/o [...] (05/21/2022 9:19 AM EST): -Currently followed by [facility] Endo - last available consult note Jan 2022 w/ Dr. Miller -Continues with current med regimen: -Januvia 25mg PO daily -Tuojeo insulin 28 units subcutaneous daily -Lispro AC per SS -Dexcom ordered and managed through [facility] Endo -Strongly encourage [...] remission 09/02/2018 Coronary artery disease invo lving [place] coronary artery of [place] heart with unstable angina pectoris 06/03/2018 Calculus [...] Type Department Care Team Description 03/14/2025 Telephone [facility] [address] [place] [address] Faith Mason MD Medication Question 02/24/2025 Refill [facility] [address] [place] [address] Faith Mason MD Other constipation; Seborrheic dermatitis 02/23/2025 Orders Only GENERIC EXTERNAL DATA DEPARTMENT Provider, Generic External Data 02/23/[address] [address] Faith Mason MD Atrial flutter, unspecified type (CMS/HCC) ([facility]); Right arm pain; Numbness and tingling of right arm 02/16/[address] [address] Faith Mason MD Dec recall 01/26/2025 Results Follow-Up [address] [address] Faith Mason MD POCT Glucose, POCT HGB A1C, Bacterial Vaginosis, Chlamydia/N. Gonorrhoeae RNA, TMA, Vaginal 01/25/2025 1:00 PM EDT Office Visit [facility] [address] [place] [phone] [place] D[place] Bleeding post tooth extraction (Primary Dx) 01/24/2025 1:00 PM EDT Office Visit [address] [address] Faith Mason MD Mouth bleeding (Primary Dx); Vaginal discharge; Pelvic pain; Chronic frontal sinusitis; Great toe pain, right; Diabetic polyneuropathy associated with type 2 diabetes mellitus ([facility]); Acute otitis externa, unspecified laterality, unspecified type; Seborrheic dermatitis; Postmenopausal bleeding 01/24/2025 Travel 01/19/2025 1:30 PM EDT Office Visit [facility] [address] [place] [phone] [place] D[facility] Severe dental caries (Primary Dx); Pain, dental 01/17/[address] [address] Faith Mason MD 01/16/2025 Patient Outreach [address] [address] Faith Mason MD Pre-visit Planning (SDOH screening negative and tobacco screening negative) 01/10/[address] [place] [address] Faith Mason MD Durable Medical Equipment 12/31/2024 Refill [facility] [address] [place] [address] Faith Mason MD Type 2 diabetes mellitus with hyperglycemia, with long-term current use of insulin ([facility]) 12/30/2024 Telephone [facility] [address] [place] [address] Faith Mason MD Chart Prep 12/27/2024 Travel 12/22/2024 Telephone [facility] [address] [place] [address] Faith Mason MD Appointment Request from Last [...] 10:45 AM EST Office Visit [facility] [address] [place], [place] [phone] Faith Mason MD [address] [place], [place] [phone] Health Maintenance Due Date Last Done Comments [...] Whole Blood 289(H) 60 - 115 mg/dL [facility] Comment:METER #: [id number] 0Testing performed in the Endocrinology Department [address] , [address], [facility]. 02/23/2025 10:4 9 AM EDT 02/23/2025 10:55 AM EDT us Generic External Data Provider LAB BLOOD ORDERAB LES Final Result Performing Organization Address [facility] Co de Phone Number [facility] [address] [place] [phone] * Hepatitis A,B,C Profile (01/31/2025 2:07 PM EDT) Hepatitis A IgM Nonreactive Nonreactive [facility] Comment:IgM antibodies to CARTWRIGHT V not detected; does not exclude earlyacute or recovered HAV infection. ~Hepatitis B Surface Antibody REACTIVE Nonreactive [facility] Comment:REACTIVE: > 11.99 mI U/mL Hepatitis B Core Antibody Nonreactive Nonreactive [facility] Hepatitis C Antibody Nonreactive Nonreactive [facility] Comment:Antibodies to HCV no t detected; does not exclude early acuteHCV infection. Hepatitis B Surface Ag Negative Negative [facility] Blood Venous blood specimen / Unknown 01/31/2025 2:07 PM EDT 01/31/2025 4:09 PM EDT us Faith No MD LAB BLOOD ORDERABLES Final Result Performing Organization Address [facility] Co de Phone Number [facility] [address] [place] [phone] * RPR (Monitor) with Reflex to??Titer (01/31/2025 2:07 PM EDT) RPR (Monitor) w/Refl Titer NON-REACTI VE NON-REACT JOHNNY [facility] Comment:THIS TEST WAS PERFOR MED AT:[facility] [place] [phone] ALICEA MD Rapid Plasma Reagin Ab Titer TNP [facility] Blood Venous blood specimen / Unknown 01/31/2025 2:07 PM EDT 01/31/2025 4:09 PM EDT Faith No MD LAB BLOOD ORDERABLES Final Result Performing Organization Address [facility] Co de Phone Number [facility] [address] [place] [phone] * HIV-1/2 Antigen and Antibodies, Fourth Generation, with Reflexes (01/31/2025 2:07 PM EDT) Pathologist [facility] HIV AB/AG Nonreactive Nonreactive [facility] Comment:HIV-1 p24 Ag and/or HIV-1/HIV-2 Ab not detected.A test result that is nonreactive does not exclude thepossibility of exposure to or infection with HIV-1 and/orHIV-2. Nonreactive results in this assay for individualswith prior exposure to HIV-1 and/or HIV-2 may be due toantigen and antibody levels that are below the limit ofdetection of this assay.The EnlightedniCoco Controller HIV Ag/Ab Combo assay result andsupplemental assay results should be interpreted inconjunction with the patient's clinical presentation,history and other laboratory results. If the results areinconsistent with clinical evidence, additional testing issuggested to confirm the result. Blood Venous blood specimen / Unknown 01/31/2025 2:07 PM EDT 01/31/2025 4:09 PM EDT us Faith No MD LAB BLOOD ORDERABLES Final Result Performing Organization Address [facility] Co de Phone Number [facility] [address] [place] [phone] * Chlamydia/N. Gonorrhoeae RNA, TMA, Vaginal (01/24/2025 2:02 PM EDT) [facility] CT PCR NOT DETECTED Not Detect. [facility] Comment:A not detected test result [...] psychologicalconsequences. NG PCR NOT DETECTED Not Detect. [facility] Comment:A not detected test result [...] EDT Faith No MD LAB MICROBIOLOGY - [facility] ORDERABLES Final Result [facility] [address] [place] [phone] * (ABNORMAL) Bacterial Vaginosis (01/24/2025 2:01 PM EDT) TRICHOMONAS VAGINALIS DETECTION BY PCR NOT DETECTED Not Detect [facility] BACTERIAL VAGINOSIS DETECTION BY PCR NEGATIVE Negative [facility] Comment:The BV organism targ ets [...] GROUP DETECTION BY PCR DETECTED(A) Not Detect [facility] Kym glab krusei PCR NOT DETECTED Not Detect [facility] Swab Vaginal structure / Unknown 01/24/2025 2:01 PM EDT 01/24/2025 5:56 PM EDT us Faith No MD LAB MICROBIOLOGY - [facility] ORDERABLES Final Result [facility] [address] [place] [phone] * (ABNORMAL) POCT HGB A1C (01/24/2025 1:52 PM EDT) Hemoglobin A1C 9.7(A) 4.0 - 5.7 % QC Media Lot # [id number] Lot# Expiration Date [id number] Blood 01/24/2025 1:52 PM EDT Result [facility] Faith No MD POINT OF CARE [...] AM EDT) HPV High Risk Negative Negative [facility] HPV Genotype 16 Negative Negative [facility] HPV Genotype 18 Negative Negative [facility] Comment:HPV testing performe d at [facility] (CLIA#[id number]), [address] [place] [phone].Testing for HPV was performed using the [employer]upon0system. The presence of HPV in the female [...] No MD LAB BLOOD ORDERABLES Final Result [facility] [address] [place] [phone] * Pap Smear (08/23/2024 12:00 AM EDT) Swab 08/23/2024 08/24/2024 6:0 0 AM EDT Narrative [facility] - 08/29/2024 1:23 PM EDT ----- ------- Name: Sarah Dixon Age/Sex: 59/F : 1965 Unit#: [id number] Attend Dr: Faith Mason MD Re08/23/24 Status: [facility] REF Location: [facility] Disch: ----- ------- SPEC : [id number] RECD: 08/24/24 STATUS: FELA UMAÑA NUM: [id number] NADJA: 08/23/24- [facility] DR: Faith Mason MD ENTERED: 08/24/24 [...] ------- Signed (signature on file) FREDRICK Doan ([facility]) 08/29/24 1323 ----- ------- END OF REPORT us Faith No MD LAB CYTOLOGY ORDERABL ES Final Result [facility] [address] [place] [phone] [phone] * BI Mammogram Screening Tomosynthesis Bilateral (07/18/2024 11:24 AM EST) Anatomical Region Laterality Modality Breast Bilateral Mammography 07/18/2024 11:2 4 AM EST Narrative 07/23/2024 12:27 PM EST [address] [place] [address] Mammography Report Signed Patient: Sarah Dixon MR#: [id number] : 1965 Acct:[id number] Age/Sex: 59 / F ADM Date: 07/18/24 Loc: HO.MAMMO Attending Dr: Faith No MD Ordering Physician: Faith Mason MD Results: 1Negative Date of Service: 07/18/24 Follow Up: 1 Year From Orig ina Mammogram Procedure(s): MM tomosynthesis screening BI Accession Number(s): [id number] cc: Faith Mason MD EXAMINATION: MM SCREENING [...] 07/23/24 1223 DD/ 1124 TD/TT: 07/18/24 1124 Deputy Director Of Public Works: Procedure Note Donotuseinterpreter, Image - 07/23/2024 [facility] [address] [place] [address] Mammography Report Signed Patient: Vidal Dixon#: [id number] : 1965Acct:[id number] Age/Sex: 59 / FADM Date: 07/18/24 Loc: HO.MAMMO Attending Dr: Faith No MD Ordering Physician: Faith Mason MDResults: 1Negative Date of Service: 07/18/24Follow Up: 1 Year From Orig inal Mammogram Procedure(s): MM tomosynthesis screening BI Accession Number(s): [id number] cc: Faith Mason MD EXAMINATION: MM SCREENING [...] 07/23/24 1223 DD/ 1124 TD/TT: 07/18/24 1124 Deputy Director Of Public Works: us Faith No MD IMG BI PROCEDURES Yoshi telma Result - Final * (ABNORMAL) Lipid Panel with Reflex to Direct LDL (12/01/2023 1:06 PM EDT) Triglycerides 81 <150 mg/dL [facility] Comment:Desirable Triglyceri de: less than 150 mg/dLBorderline High Triglyceride 150-199 mg/dLHigh Triglyceride: 200-499 mg/dLVery High Triglyceride: greater than or equal to 5OO mg/dL Cholesterol 77 <200 mg/dL [facility] Comment:Desirable Cholestero l: less than 200 mg/dLBorderline High Cholesterol: 200-239 mg/dLHigh Cholesterol: greater than 239 mg/dL LDL Cholesterol Calculated 30 <100 mg/dL [facility] Comment:Desirable LDL: less than 100 mg/dLNear Optimal/Above Optimal LDL: 110- 129 mg/dLBorderline High LDL: 130-159 mg/dLHigh LDL: 160-189 mg/dLVery High LDL: greater than or equal to 190 mg/dL HDL Cholesterol 31(L) >40 mg/dL [facility] Comment:Desirable HDL: great er than 40 mg/dL Note: This HDL assay may give artificially low results in patients with liver disease. Blood 12/01/2023 1:06 PM EDT 12/01/2023 1:11 PM EDT us Faith No MD LAB BLOOD ORDERABLES Final Result [facility] [address] [place] [phone] * Cologuard?? colon cancer screening (09/17/2023 12:00 PM EDT) Cologuard Result Negative Negative 09/25/19 10:09 AM EDT [facility] (CLIA #:[id number]) Comment: NEGATIVE TEST RESULT. A negative Cologuard [...] (Kacey Jalloh al, N Engl J Med 2014;370(14):6956-1893) The normal value (reference range) for this assay is negative. COLOGUARD RE-SCREENING RECOMMENDATION: Periodic colorectal cancer screening is an important part of preventive healthcare for asymptomatic individuals at average risk for colorectal cancer. Following a negative Cologuard result, the [place] Cancer Society and U.S. Multi-Society Task Force screening guidelines recommend a Cologuard re-screening interval of 3 years. References: [place] Cancer Society Guideline for Colorectal Cancer Screening: https://www.cancer.org/cancer/ehdzb-ezgizc-qcucrb/tnxhxqnar-lrqbycevd-jvybwgu/ac s-rec ommendations.html.; Maxi DK, Robinson REESE, Barry TateK, Colorectal Cancer Screening: Recommendations for Physicians and Patients from the U.S. Multi-Society Task Force on Colorectal Cancer Screening , Am J Gastroenterology 2017; 112:7399-6251. TEST DESCRIPTION: Composite algorithmic analysis of stool [...] (Kacey Jalloh al, N Engl J Med 2014;370(14):3878-2027.) Cologuard may produce a false negative or false positive result (no colorectal cancer or precancerous polyp present at colonoscopy follow up). A negative Cologuard test result does not guarantee the absence of CRC or advanced adenoma (pre-cancer). The current Cologuard screening interval is every 3 years. ([place] Cancer Society and U.S. Multi-Society Task Force). Cologuard performance data in a 10,000 patient pivotal study using colonoscopy as the reference method can be accessed at the following location: www.[employer]/results. Additional description of the Cologuard test process, warnings and precautions can be found at www.[employer]'s Food Cafeoguard.com. Stool specimen (specimen) 09/17/2023 12:00 PM EDT 09/18/2023 10:51 AM EDT Faith No MD LAB MOLECULAR DIAGNOS TICS ORDERABLES Final Result [facility] (CLIA #:[id number]) [address] [place] [address], * MICROALBUMIN, RANDOM (07/23/2020 9:00 AM EST) Creatinine Urine 140.39 mg/dL [facility] Microalbum/Creati nine Ratio Ur 419.5 ug/mg cr [facility] Comment: Albumin/Creatinine Ratio Reference Ranges: Normal: < 30 ug/mg creatinine Microalbuminuria: 30 - 300 ug/mg creatinine Clinical Albuminuria: > 300 ug/mg creatinine Microalbumin Urine 589.0 mg/L [facility] 07/23/2020 9:00 AM EST us Historical Provider HISTORICAL/NON ORDERABLE LABS Final Result [facility] Critical access hospital [address] from Last 3 Months or Most Recently Relevant to Health Maintenance Insurance [facility] C3 DENTAL-[facility] MEDICAID STAND ADULT Care Teams Jet Engine Mechanic Relationship Specialty Start Date End Date Faith Mason MD [address] [facility] [place] [address] PCP - General Family Medicine 04/12/19 Linda Peralta [employer] Gar[employer] AttendantSystems Admin 06/08/24
--- OUTSIDE RECORDS SUMMARY | 2025-03-23 15:12 | XMS_ITS | Encounter Summary ---
Author Organization [employer] Address [address] [facility] 7t [place] [address] Care Team Providers Care Air Twist Operator Name Role Phone Faith Mason MD Primary Care Provide r Reason for Visit * Reason Onset Date Comments FYI 08/13/2023 Encounter Details Date Type Department Care Team ([facility] st Contact Info) Description 08/13/2023 Telephone [facility] [address] [place], [place] [phone] Faith Mason MD [address] [place], [place] [phone] FYI Social History Tobacco Use Types Packs/Day [...] of today. Any questions contact Tameka at [phone] documented in this encounter Plan of Treatment Upcoming Encounters Date Type Department Care Team (Late st Contact Info) Description 05/11/2025 10:45 AM EST Office Visit [facility] [address] [place] [address] Faith Mason MD [address] [place] [address] documented as of this encounter Visit Diagnoses Not on filedocumented in this encounter Additional Health Concerns Assessment Noted Time PHQ-9 Depression Total Score: 14 023 2:21 PM EDT documented as of this encounter Care Teams Air Twist Operator Relationship Specialty Start Date End Date Faith Mason MD [address] [place] [phone] PCP - General Family Medicine 04/12/19 Linda Peralta Griddle CookAgriculture Manager 06/08/24 documented as of this encounter
--- OUTSIDE RECORDS SUMMARY | 2025-03-23 15:12 | XMS_ITS | Clinical Summary ---
Author Organization [facility] Address [address] [place]udmila [place] [address] Phone Care Team Providers Care Child Nutrition Director Name Role Phone Ines Zamora MD Primary Care Provider + [phone] Medications lisinopril 10 MG tabletIndicati ons:Stage 3 [...] 03/19/2025 Refill [facility] [address] [facility] [address] [place] [phone] Jeffy Tineo MD 02/27/2025 Treatment [facility] [address] [phone] Jeffy Tineo MD End stage renal disease; Dependence on renal dialysis 02/20/2025 Treatment [facility] [address] [phone] Jeffy Tineo MD End stage renal disease; Dependence on renal dialysis 02/15/2025 Treatment [facility] [address] [phone] Jeffy Tineo MD End stage renal disease; Dependence on renal dialysis 02/08/2025 Treatment [facility] [address] [phone] Jeffy Tineo MD End stage renal disease; Dependence on renal dialysis 01/27/2025 Treatment [facility] [address] [phone] Jeffy Tineo MD End stage renal disease; Dependence on renal dialysis 01/11/2025 Orders Only [facility] [address] [phone] Jeffy Tineo MD 01/09/2025 Treatment [facility] [address] [phone] Jeffy Tineo MD End stage renal disease; Dependence on renal dialysis 01/02/2025 Treatment [facility] [address] [phone] Jeffy Tineo MD End stage renal disease; Dependence on renal dialysis 12/26/2024 Treatment [facility] [address] [phone] Jeffy Tineo MD End stage renal disease; Dependence on renal dialysis 12/23/2024 Treatment [facility] [address] [place] [address] Jeffy Tineo MD End stage renal disease; Dependence on renal dialysis 12/23/2024 Treatment [facility] [address] [place] [phone] Jeffy Tineo MD End stage renal disease; [...] W ALBUMIN Routine 03/08/2025 3:00 AM EDT [facility] (HC) Routine 03/08/2025 3:00 AM EDT HEMOGLOBIN A1C Routine 02/22/2025 3:00 AM EDT MAGNESIUM Routine 02/22/2025 3:00 AM EDT [facility] (HC) Routine 02/22/2025 3:00 AM EDT LIPID PANEL [...] 3:00 AM EDT 03/09/2025 1:12 PM EDT Jeffy Tineo MD LAB [id number] SOLICITED RESULTS Final Result Performing Organization Address City/[facility]/ZIP Co de Phone Number [facility] [address] [place] [address] * Calcium, Adjusted w Albumin (03/08/2025 3:00 AM EDT) Calcium 9.5 8.6 - 10.3 mg/dL [facility] Albumin 4.3 3.6 - 5.4 g/dL [facility] Calcium, Adjusted Total 9.5 8.6 - 10.3 mg/dL [facility] 03/08/2025 3:00 AM EDT 03/09/2025 1:12 PM EDT Jeffy Tineo MD LAB BLOOD ORDERABLES Final Re sult Performing Organization Address [facility]/ZIP Co de Phone Number [facility] [address] [place] [address] * (ABNORMAL) Hemoglobin and hematocrit (03/08/2025 3:00 AM EDT) Only the most recent of3 resultswithin the time period is included. Hgb 10.0(L) 11.2 - 15.7 g/dL [facility] Hematocrit 30.1(L) 34.1 - 44.9 % [facility] Hemoglobin x 3 30.0(L) 33.6 - 47.1 g/dL [facility] 03/08/2025 3:00 AM EDT 03/09/2025 1:56 PM EDT Jeffy Tineo MD LAB BLOOD ORDERABLES Final Re sult Performing Organization Address [facility] Co de Phone Number [facility] [address] [place] [address] * (ABNORMAL) Kt/V Natural Log, URR (02/22/2025 3:00 AM EDT) Only the most recent of3 resultswithin the time period is included. Treatment Time 205 min [facility] Pre-Weight, lb [...] 1:33 PM EDT Jeffy Tineo MD LAB [id number] SOLICITED RESULTS Final Result Performing Organization Address [facility] Co de Phone Number [facility] [address] [place] [address] * (ABNORMAL) Calcium Phosphorus Product, Adjusted (02/22/2025 [...] 1:41 PM EDT Jeffy Tineo MD LAB [id number] SOLICITED RESULTS Final Result Performing Organization Address [facility] de Phone Number [facility] [address] [place] [address] * BUN/CREATININE RATIO (02/22/2025 3:00 AM EDT) Only the most recent of3 resultswithin the time period is included. BUN/Creatinine Ratio 8.4 <=23.0 [facility] 02/22/2025 3:00 AM EDT 02/23/2025 1:41 PM EDT Jeffy Tineo MD LAB [id number] SOLICITED RESULTS Final Result Performing Organization Address [facility] de Phone Number [facility] [address] [place] [address] * (ABNORMAL) TSAT (02/22/2025 3:00 AM EDT) [...] Re sult Performing Organization Address [facility] de Phone Number [facility] [address] [place] [address] * (ABNORMAL) CBC and Differential (02/22/2025 3:00 AM EDT) Only the most recent of3 resultswithin the time period is included. Pathologist [facility] DIFFERENTIAL MANUAL, 2 Not Indicated [facility] White [...] 3:00 AM EDT 02/23/2025 1:39 PM EDT us Jeffy Tineo MD LAB BLOOD ORDERABLES Final Re sult [facility] [address] [place] [address] * ALT (02/22/2025 3:00 AM EDT) Only the most recent of3 resultswithin the time period is included. [facility] ALT (SGPT) 28 10 - 49 U/L [facility] 02/22/2025 3:00 AM EDT 02/23/2025 1:41 PM EDT us Jeffy Tineo MD LAB BLOOD ORDERABLES Final Re sult Performing Organization Address [facility] Co de Phone Number [facility] [address] [place] [address] * AST (02/22/2025 3:00 AM EDT) Only the most recent of3 resultswithin the time period is included. AST (SGOT) 18 <34 U/L [facility] 02/22/2025 3:00 AM EDT 02/23/2025 1:41 PM EDT us Jeffy Tineo MD LAB BLOOD ORDERABLES Final Re sult Performing Organization Address [facility] de Phone Number [facility] [address] [place] [address] * Protein, total (02/22/2025 3:00 AM EDT) Only the most recent of3 resultswithin the time period is included. Total Protein 7.1 6.4 - 8.9 g/dL [facility] 02/22/2025 3:00 AM EDT 02/23/2025 1:41 PM EDT us Jeffy Tineo MD LAB BLOOD ORDERABLES Final Re sult Performing Organization Address [facility] de Phone Number [facility] [address] [place] [address] * (ABNORMAL) Alkaline phosphatase (02/22/2025 3:00 AM EDT) Only the most recent of3 resultswithin the time period is included. Alkaline Phosphatase 180(H) 46 - 116 U/L [facility] 02/22/2025 3:00 AM EDT 02/23/2025 1:41 PM EDT us Jeffy Tineo MD LAB BLOOD ORDERABLES Final Re sult Performing Organization Address [facility] de Phone Number [facility] [address] [place] [address] * PTH, Intact (02/22/2025 3:00 AM EDT) [...] de Phone Number [facility] [address] [place] [address] * Magnesium (02/22/2025 3:00 AM EDT) Only the most recent of3 resultswithin the time period is included. Magnesium 2.3 1.9 - 2.7 mg/dL [facility] 02/22/2025 3:00 AM EDT 02/23/2025 1:41 PM EDT us Jeffy Tineo MD LAB BLOOD ORDERABLES Final Re sult Performing Organization Address [facility] de Phone Number [facility] [address] [place] [address] * (ABNORMAL) Lactate dehydrogenase (02/22/2025 3:00 AM EDT) Only the most recent of3 resultswithin the time period is included. LDH 364(H) 120 - 246 U/L [facility] 02/22/2025 3:00 AM EDT 02/23/2025 1:41 PM EDT us Jeffy Tineo MD LAB BLOOD ORDERABLES Final Re sult Performing Organization Address [facility] de Phone Number [facility] [address] [place] [address] * (ABNORMAL) Hemoglobin A1c (02/22/2025 3:00 AM EDT) Hemoglobin A1C 10.2(H) <5.7 % [facility] Comment: Methodology: Enzymatic Normal: <5.7% Prediabetes: 5.7-6.4% Diabetes: >6.4% Diabetic Glucose Control Evaluation: Therapeutic action suggested at >8.0% ADA recommends a glycemic goal of <7.0% 02/22/2025 3:00 AM EDT 02/23/2025 1:39 PM EDT us Jeffy Tineo MD LAB BLOOD ORDERABLES Final Re sult Performing Organization Address [facility] de Phone Number [facility] [address] [place] [address] * (ABNORMAL) Glucose, random (02/22/2025 3:00 AM [...] Re sult Performing Organization Address [facility] de Phone Number [facility] [address] [address] * (ABNORMAL) Ferritin (02/22/2025 3:00 AM EDT) Only the most recent of3 resultswithin the time period is included. Ferritin 1,379(H) 10 - 291 ng/mL [facility] 02/22/2025 3:00 AM EDT 02/23/2025 1:41 PM EDT us Jeffy Tineo MD LAB BLOOD ORDERABLES Final Re sult Performing Organization Address [facility] de Phone Number [facility] [address] [place] [address] * (ABNORMAL) Creatinine, serum (02/22/2025 3:00 AM EDT) Only the most recent of3 resultswithin the time period is included. Creatinine 7.99(H) 0.55 - 1.02 mg/dL [facility] 02/22/2025 3:00 AM EDT 02/23/2025 1:41 PM EDT Jeffy Tineo MD LAB BLOOD ORDERABLES Final Re sult Performing Organization Address [facility] de Phone Number [facility] [address] [place] [address] * Bilirubin, total (02/22/2025 3:00 AM EDT) Only the most recent of3 resultswithin the time period is included. Total Bilirubin 0.6 0.3 - 1.2 mg/dL [facility] 02/22/2025 3:00 AM EDT 02/23/2025 1:41 PM EDT Jeffy Tineo MD LAB BLOOD ORDERABLES Final Re sult Performing Organization Address [facility] de Phone Number [facility] [address] [place] [address] * (ABNORMAL) Lipid panel (02/22/2025 3:00 AM [...] Re sult Performing Organization Address [facility] de Phone Number [facility] [address] [place] [address] * (ABNORMAL) Electrolyte panel (02/22/2025 3:00 AM [...] de Phone Number [facility] [address] [place] [address] * Potassium (02/15/2025 3:00 AM EDT) Only the most recent of3 resultswithin the time period is included. Potassium 4.5 3.4 - 5.0 mEq/L [facility] 02/15/2025 3:00 AM EDT 02/16/2025 1:16 PM EDT Jeffy Tineo MD LAB BLOOD ORDERABLES Final Re sult Performing Organization Address [facility] de Phone Number [facility] [address] [place] [address] * (ABNORMAL) Hemoglobin (02/10/2025 3:00 AM EDT) Only the most recent of4 resultswithin the time period is included. Hgb 10.9(L) 11.2 - 15.7 g/dL [facility] Hemoglobin x 3 32.7(L) 33.6 - 47.1 g/dL [facility] 02/10/2025 3:00 AM EDT 02/11/2025 12:55 PM EDT Jeffy Tineo MD LAB BLOOD ORDERABLES Final Re sult Performing Organization Address [facility] de Phone Number [facility] [address] [place] [address] * CO2 (02/01/2025 3:00 AM EDT) Bicarbonate (CO2) 28 21 - 31 mEq/L [facility] 02/01/2025 3:00 AM EDT 02/02/2025 2:18 PM EDT Jeffy Tineo MD LAB BLOOD ORDERABLES Final Re sult Performing Organization Address [facility] de Phone Number [facility] [address] [place] [address] from [place] [address] [place] [address] [place] [address] [place] Care Teams Child Nutrition Director Relationship Specialty Start Date End Date Ines Zamora MD [address] [place] [address] [phone] PCP - General 06/04/20
--- OUTSIDE RECORDS SUMMARY | 2025-03-23 15:12 | XMS_ITS | Encounter Summary ---
Author Organization [employer] Address [address] [facility] [address] [place] [address] Care Team Providers Care Nurse Administrator Name Role Phone Faith Mason MD Primary Care Provide r Reason for Visit * Reason Comments Med Refill Encounter Details Date Type Department Care Team ([facility] st Contact Info) Description 06/24/2023 Refill [facility] [address] [place], [place] [phone] Faith Mason MD [address] [place], [place] [phone] Social History Tobacco Use Types Packs/Day Years [...] Description 05/11/2025 10:45 AM EST Office Visit [facility] [address] [place] [phone] Faith Mason MD [address] [place] [phone] documented as of this encounter Visit Diagnoses Not on filedocumented in this encounter Additional Health Concerns Assessment Noted Time PHQ-9 Depression Total Score: 14 023 2:21 PM EDT documented as of this encounter Care Teams Nurse Administrator Relationship Specialty Start Date End Date Faith Mason MD [address] [place] [phone] PCP - General Family Medicine 04/12/19 Linda Peralta Garnett Machine OperatorIndustrial Sociologist 06/08/24 documented as of this encounter
--- OUTSIDE RECORDS SUMMARY | 2025-03-23 15:12 | XMS_ITS | Encounter Summary ---
Author Organization [employer] Address [address] [facility] [address] [place] [address] Care Team Providers Care Agriculture Professor Name Role Phone Faith Mason MD Primary Care Provide r Reason for Visit * Reason Onset Date Comments Durable Medical Equipment 11/05/2023 Encounter Details Date Type Department Care Team (Late st Contact Info) Description 11/05/[address] [facility] [address] [place], [place] [phone] Faith Mason MD [address] [place], [place] [phone] Durable Medical Equipment Social History Tobacco Use [...] 11/05/2023 12:47 PM EDT Silver Mckeon at [facility] calling to request the following DME. Shower Chair Shower grab bars Wheel chair Rolator walker with seat documented in this encounter Plan of Treatment Upcoming Encounters Date Type Department Care Team (Late st Contact Info) Description 05/11/2025 10:45 AM EST Office Visit [facility] [address] [place] [address] Faith Mason MD [address] [place] [address] documented as of this encounter Visit Diagnoses Not on filedocumented in this encounter Additional Health Concerns Assessment Noted Time PHQ-9 Depression Total Score: 14 023 2:21 PM EDT documented as of this encounter Care Teams Agriculture Professor Relationship Specialty Start Date End Date Faith Mason MD [address] [place], [place] [phone] PCP - General Family Medicine 04/12/19 Linda Peralta Flight Engineer ManagerWant Ad Supervisor 06/08/24 documented as of this encounter
--- OUTSIDE RECORDS SUMMARY | 2025-03-23 15:12 | XMS_ITS | Encounter Summary ---
Author Organization [employer] Address [address] [facility] 7t [place] [address] Care Team Providers Care Cook Room Supervisor Name Role Phone Faith Mason MD Primary Care Provide r Encounter Details Date Type Department Care Team (Late st Contact Info) Description 07/17/2023 Telephone [facility] [address] [place], [place] [phone] Faith Mason MD [address] [place], [place] [phone] Social History Tobacco Use Types Packs/Day Years [...] the past 12 months, has t he [employer], [employer], oil or water [employer] threatened to shut off services in your [...] Description 05/11/2025 10:45 AM EST Office Visit [facility] [address] [place] [phone] Faith Mason MD [address] [place] [phone] documented as of this encounter Visit Diagnoses Not on filedocumented in this encounter Additional Health Concerns Assessment Noted Time PHQ-9 Depression Total Score: 14 023 2:21 PM EDT documented as of this encounter Care Teams Cook Room Supervisor Relationship Specialty Start Date End Date Faith Mason MD [address] [place] [phone] PCP - General Family Medicine 04/12/19 Linda Peralta Auto Motor MechanicWarp Preparer 06/08/24 documented as of this encounter
--- OUTSIDE RECORDS SUMMARY | 2025-03-23 15:12 | XMS_ITS | Encounter Summary ---
Author Organization [employer] Address [address] [facility] 7[address] [place] [address] Care Team Providers Care High School Art Teacher Name Role Phone Faith Mason MD Primary Care Provide r Reason for Visit * Reason Comments Med Refill Encounter Details Date Type Department Care Team ([facility] st Contact Info) Description 04/04/2024 Refill [facility] [address] [place], [place] [phone] Faith Mason MD [address] [place], [place] [phone] Essential hypertension Social History Tobacco Use Types [...] Description 05/11/2025 10:45 AM EST Office Visit [facility] MEDICINE [address] [place] [address] Faith Mason MD [address] [place] [address] documented as of this encounter Visit Diagnoses Diagnosis Essential hypertension Unspecified essential hypertension documented in this encounter Additional Health Concerns Assessment Noted Time PHQ-9 Depression Total Score: 6 11/24/19 24 2:35 PM EDT documented as of this encounter Care Teams High School Art Teacher Relationship Specialty Start Date End Date Faith Mason MD [address] [place], [place] [phone] PCP - General Family Medicine 04/12/19 Linda Peralta Client Delivery ManagerPlant Pathology Teacher 06/08/24 documented as of this encounter
== END 2025-03-23 12:21 | disposition home or self-care (01) ==
LOC: HO.XRAY 12:20
PROVIDERS: Absent Provider Registered Nurse Psychiatric/Mental Health; PCP Nurse Practitioner Family; Visit Provider Student in an Organized Health Care Education/Training Program
DX: M20.20 Hallux rigidus, unspecified foot (principal); Z79.899 Other long term (current) drug therapy
CPT/HCPCS: 36415; 73630; 80053; 80061; 82248; 84439; 84443; 85025

== ENCOUNTER → 2025-03-23 12:27 | Outpatient (BNV) | payer MEDICAID, SELFPAY | PROVIDERS: Absent Provider Registered Nurse Psychiatric/Mental Health; PCP Nurse Practitioner Family; Visit Provider Radiology Diagnostic Radiology | DX: M19.071 Primary osteoarthritis, right ankle and foot (principal); M19.072 Primary osteoarthritis, left ankle and foot; M77.31 Calcaneal spur, right foot; M77.32 Calcaneal spur, left foot | CPT/HCPCS: 73630 ==

== ENCOUNTER 2025-04-04 13:32 | Outpatient (AMB) | payer MEDICAID, SELFPAY ==
--- NOTE | 2025-04-04 13:49 | A.OFFVIS_ITS ---
Vital Signs 04/04/25 13:54 Height 5 ft 6 in Weight 216 lb BMI 34.9 Intake Visit Reasons: type 2 diabetic mellitus Intake Note: Sarah is a 60 year old female who presents today for a follow up on her X ray results. During her last visit her toe nails where debrided and sent to Pathology and Culture and X rays where orders. Results are in patients chart. She reports she has no concerns at this time. Allergies No Known Allergies Allergy (Verified 04/04/25 13:55) HPI HPI type 2 diabetic mellitus: Details: 60-year-old female past medical history of diabetes mellitus type 2, NSTEMI, ESRD on dialysis, presents for 2 week follow up for x-ray review of left foot pain and annual diabetic foot evaluation. She did not receive the antifungal cream prescribed last visit. She still feels pain to her left foot that has not improved. History: Patient states that she has had pain on the top of her left foot that is worse with activity and movement. She has not tried any treatment so far. She also has discoloration to her right big toe nail. Has not tried any treatment so far. She states she is on dialysis. Her legs do get swollen however she does not like to wear compression stockings. Denies history of wounds or ulcerations. 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 Uncontrolled type 2 diabetes mellitus with hyperglycemia, with long-term current use of insulin Hidradenitis suppurativa Pneumonia Type 2 diabetes mellitus with hyperglycemia Paroxysmal atrial flutter Dysphonia Chronic cough Urinary frequency Dyspnea on exertion Unstable gait Asthma Chronic low back pain without sciatica Osteoarthritis of both knees Kidney stones Depression AMARJIT (obstructive sleep apnea) Normocytic anemia ESRD needing dialysis CHF (congestive heart failure) Obesity due to excess calories CAD (coronary artery disease) GERD (gastroesophageal reflux disease) Thyroid disease AV fistula HLD (hyperlipidemia) ESRD (end stage renal disease) T2DM (type 2 diabetes mellitus) End stage renal disease on dialysis Dialysis patient Renal failure (ARF), acute on chronic HTN (hypertension) Surgical History History of cardiac cath History of kidney surgery Hx of cholecystectomy Hx of bone graft Family History Father CVD (cardiovascular disease) Diabetes Mother Diabetes Sister Stomach cancer Social History Household Members: Spouse Household Members Other:: , brother, uncles Housing: House Do you presently have visiting nurse or other home services: Yes Alcohol intake: never Patient Tobacco Use Status: Never used Tobacco Advance Directives Date on File: 02/15/21 service: No Current occupational status: disabled Current occupation: right hand dominant Review of Systems Const All systems reviewed & are unremarkable except as noted in HPI and below ENT Denies tongue swelling Aller/Immun Denies tongue swelling Physical Exam Vital Signs: BMI result Body Mass Index 34.9 Extrem Other: *Bilateral Lower Extremity Focused Diabetic Foot Exam Vascular: DP/PT 2/4 right foot, 1/4 DP left foot, 1/4 PT left foot. CFT<3s to digits, TG warm to cool other than mild cooler temperature gradient to the left hallux. no pedal edema, pedal hair absent Derm: Skin: Dystrophic thickened elongated discolored toenails times 10. Worse to the right hallux with 90% discoloration. Plantar annular scaling bilaterally. Neuro: [place]-jaron monofilament (10g) test 10/10 intact to right foot, 10/10 intact to left foot. Msk: Hallux rigidus left 1st Metatarsal-phalangeal joint with 10 degrees of dorsiflexion and 25 degrees plantar flexion. Pain on range of motion. No crepitus. Mild tenderness on palpation of the dorsal aspect of the metatarsophalangeal joint. Mild tenderness on palpation of the plantar medial calcaneal tubercle left heel and along the medial and central plantar fascial bands. Muscle strength: 5/5 in all muscle groups. Gait: Normal, no antalgic or steppage gait observed. Footwear Assessment: Shoes inspected; appropriate fit, no excessive wear, or foreign objects noted. Results Reviewed Results Reviewed: Podiatry X-ray Read: 03/23/2025 X-ray right foot 3 views (AP, MO, Lateral) reviewed which shows moderate 1st MTP space narrowing and flattening of the first metatarsal head. TSP 2. Mockenberg sclerosis calcified arteries right 1st and 5th interspace. I personally reviewed the imaging and my findings are listed above. Podiatry X-ray Read: 03/23/2025 X-ray left foot 3 views (AP, MO, Lateral) reviewed which shows mild flattening of the first metatatarsal head. Mockenberg sclerosis calcified arteries interspaces 1, 3, and 4 and anterior and posterior ankles. I personally reviewed the imaging and my findings are listed above. 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 No loss of protective sensation. ESRD patient with possible left foot PAD changes peripheral arterial disease. She was referred for an CHARLENE PVR test. Patient is at moderate risk for diabetic foot complications at this time. Recommendations: Continue routine foot care and daily self-inspection. Recommend moisturizing daily. Recommend supportive proper fitting shoe-wear. She is referred for extra that diabetic shoes with Plastazote inserts. (2) Tinea pedis: Code(s): B35.3 - Tinea pedis Category: Medical Qualifiers: Laterality: bilateral Qualified Code(s): B35.3 - Tinea pedis Plan: * Instructed the patient to obtain and use clotrimazole (3) Hallux rigidus: Code(s): M20.20 - Hallux rigidus, unspecified foot Category: Medical Qualifiers: Laterality: bilateral Qualified Code(s): M20.21 - Hallux rigidus, right foot; M20.22 - Hallux rigidus, left foot Plan: * Reviewed bilateral foot x-rays. No treatment recommended at this time. (4) Tinea unguium: Code(s): B35.1 - Tinea unguium Category: Medical Plan: * Pending nail culture/path. (5) Cyanosis of skin: Code(s): R23.0 - Cyanosis Category: Medical Plan: * Pending US CHARLENE/PVR test Medications: New [Diabetic shoes] Please dispense extra-depth shoes with 3 pairs of custom molded inserts. 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
[2025-04-04 13:54] VITALS: BMI 34.9
--- OUTSIDE RECORDS SUMMARY | 2025-04-04 15:09 | XMS_ITS | Encounter Summary ---
Author Organization [employer] Address [address] [facility] 7t [place] [address] Care Team Providers Care Manager Audit Name Role Phone Faith Mason MD Primary Care Provide r Reason for Visit * Reason Onset Date Comments FYI 08/13/2023 Encounter Details Date Type Department Care Team ([facility] st Contact Info) Description 08/13/2023 Telephone [facility] MEDICINE [address] [place], [place] [phone] Faith Mason MD [address] [place], [place] [phone] FYI Social History Tobacco Use Types Packs/Day [...] of today. Any questions contact Tameka at [phone] documented in this encounter Plan of Treatment Upcoming Encounters Date Type Department Care Team (Late st Contact Info) Description 05/11/2025 10:45 AM EST Office Visit [facility] MEDICINE [address] [place] [phone] Faith Mason MD [address] [place] [address] 06/08/2025 2:15 PM EST Office Visit [facility] ADULT DENTAL [address] [place] [address] Shiva, Karen [address] [place] [address] documented as of this encounter Visit Diagnoses Not on filedocumented in this encounter Additional Health Concerns Assessment Noted Time PHQ-9 Depression Total Score: 14 023 2:21 PM EDT documented as of this encounter Care Teams Manager Audit Relationship Specialty Start Date End Date Faith Mason MD [address] [place] [phone] PCP - General Family Medicine 04/12/19 Linda Peralta Toby MakerCatering Staff Member 06/08/24 documented as of this encounter
--- OUTSIDE RECORDS SUMMARY | 2025-04-04 15:09 | XMS_ITS | Encounter Summary ---
Author Organization [employer] Address [address] [facility] 7t [place] [address] Care Team Providers Care Yeast Stacker Name Role Phone Faith Mason MD Primary Care Provide r Encounter Details Date Type Department Care Team (Late st Contact Info) Description 07/17/2023 Telephone [facility] MEDICINE [address] [place], [place] [phone] Faith Mason MD [address] [place], [place] [phone] Social History Tobacco Use Types Packs/Day Years [...] the past 12 months, has t he shoply, [employer], oil or water [employer] threatened to shut off services in your [...] Description 05/11/2025 10:45 AM EST Office Visit [facility] MEDICINE [address] [place] [address] Faith Mason MD [address] [place] [address] 06/08/2025 2:15 PM EST Office Visit [facility] ADULT DENTAL [address] [place] [address] Shiva, Karen [address] [place] [address] documented as of this encounter Visit Diagnoses Not on filedocumented in this encounter Additional Health Concerns Assessment Noted Time PHQ-9 Depression Total Score: 14 023 2:21 PM EDT documented as of this encounter Care Teams Yeast Stacker Relationship Specialty Start Date End Date Faith Mason MD [address] [place] [phone] PCP - General Family Medicine 04/12/19 Linda Peralta Superintendent AutomotiveDado Operator 06/08/24 documented as of this encounter
--- OUTSIDE RECORDS SUMMARY | 2025-04-04 15:09 | XMS_ITS | Encounter Summary ---
Author Organization [employer] Address [address] [facility] 7t [place] [address] Care Team Providers Care Pre Press Proofer Name Role Phone Faith Mason MD Primary Care Provide r Reason for Visit * Reason Comments Med Refill Encounter Details Date Type Department Care Team ([facility] st Contact Info) Description 08/11/2023 Refill [facility] MEDICINE [address] [place], [place] [phone] Faith Mason MD [address] [place], [place] [phone] Social History Tobacco Use Types Packs/Day Years [...] Description 05/11/2025 10:45 AM EST Office Visit [facility] MEDICINE [address] [place] [address] Faith Mason MD [address] [place] [address] 06/08/2025 2:15 PM EST Office Visit [facility] ADULT DENTAL [address] [place] [address] Shiva, Karen [address] [place] [address] documented as of this encounter Visit Diagnoses Not on filedocumented in this encounter Additional Health Concerns Assessment Noted Time PHQ-9 Depression Total Score: 14 023 2:21 PM EDT documented as of this encounter Care Teams Pre Press Proofer Relationship Specialty Start Date End Date Faith Mason MD [address] [place] [address] PCP - General Family Medicine 04/12/19 Linda Peralta [employer] Location ManagerLoader Operator Supervisor 06/08/24 documented as of this encounter
--- OUTSIDE RECORDS SUMMARY | 2025-04-04 15:09 | XMS_ITS | Encounter Summary ---
Author Organization [employer] Address [address] [facility] 7t [place] [address] Care Team Providers Care Bill Hiker Name Role Phone Faith Mason MD Primary Care Provide r Encounter Details Date Type Department Care Team ([facility] st Contact Info) Description 03/08/2024 Orders Only [facility] MEDICINE [address] [place], [place] [phone] Faith Mason MD 230 [place], [place] [phone] Social History Tobacco Use Types Packs/Day Years [...] Office Visit [facility] MEDICINE [address] [place] [phone] Faith Mason MD [address] [place] [address] 06/08/2025 2:15 PM EST Office Visit [facility] ADULT DENTAL [address] [place] [phone] Shiva, Karen [address] [place] [address] documented as of this encounter Visit Diagnoses Not on filedocumented in this encounter Additional Health Concerns Assessment Noted Time PHQ-9 Depression Total Score: 6 11/24/19 24 2:35 PM EDT documented as of this encounter Care Teams Bill Hiker Relationship Specialty Start Date End Date Faith Mason MD [address] [place] [phone] PCP - General Family Medicine 04/12/19 Linda Peralta Reactor TechnicianElectronic Lab Technician 06/08/24 documented as of this encounter
--- OUTSIDE RECORDS SUMMARY | 2025-04-04 15:10 | XMS_ITS | Encounter Summary ---
Author Organization [employer] Address [address] [facility] 7t [place] [address] Care Team Providers Care Campus Manager Name Role Phone Faith Mason MD Primary Care Provide r Reason for Visit * Reason Comments Med Refill Encounter Details Date Type Department Care Team ([facility] st Contact Info) Description 09/25/2024 Refill [facility] MEDICINE [address] [place], [place] [phone] Faith Mason MD [address] [place], [place] [phone] Essential hypertension Social History Tobacco Use Types [...] 10:45 AM EST Office Visit [facility] MEDICINE [address] [place] [phone] Faith Mason MD 230 [place] [address] 06/08/2025 2:15 PM EST Office Visit [facility] ADULT DENTAL [address] [place] [address] Jacob Shannonaris [address] [place] [address] documented as of this encounter Visit Diagnoses Diagnosis Essential hypertension Unspecified essential hypertension documented in this encounter Additional Health Concerns Assessment Noted Time PHQ-9 Depression Total Score: 6 11/24/19 24 2:35 PM EDT documented as of this encounter Care Teams Campus Manager Relationship Specialty Start Date End Date Faith Mason MD [address] [place] [address] PCP - General Family Medicine 04/12/19 Linda Peralta Office Support AssistantChange Control Coordinator 06/08/24 documented as of this encounter
--- OUTSIDE RECORDS SUMMARY | 2025-04-04 15:10 | XMS_ITS | Clinical Summary ---
Author Organization [facility] Address [address] [address] Phone Care Team Providers Care Clinical Material Handler Name Role Phone Ines Zamora MD Primary [...] ACO C3 ACO C3 ACO [facility] [place] [address] [address] C3 [facility] ACO Care Teams Clinical Material Handler Relationship Specialty Start Date End Date Ines Zamora MD [address] [place] [address] [address] [place] [phone] PCP - General Internal Medicine 02/23/19 Additional Source Comments The information contained in this document represents components of the legal health record. It is not the complete legal health record.[facility]
--- OUTSIDE RECORDS SUMMARY | 2025-04-04 15:10 | XMS_ITS | Encounter Summary ---
Author Organization [employer] Address [address] [facility] 7t [place] [address] Care Team Providers Care Sole Layer Hand Name Role Phone Faith Mason MD Primary Care Provide r Reason for Visit * Reason Comments Med Refill Encounter Details Date Type Department Care Team ([facility] st Contact Info) Description 06/24/2023 Refill [facility] MEDICINE [address] [place], [place] [phone] Faith Mason MD [address] [place], [place] [phone] Social History Tobacco Use Types Packs/Day Years [...] 10:45 AM EST Office Visit [facility] MEDICINE [address] [place] [address] Faith Mason MD [address] [place] [address] 06/08/2025 2:15 PM EST Office Visit [facility] ADULT DENTAL [address] [place] [address] Shiva, Karen [address] [place] [address] documented as of this encounter Visit Diagnoses Not on filedocumented in this encounter Additional Health Concerns Assessment Noted Time PHQ-9 Depression Total Score: 14 023 2:21 PM EDT documented as of this encounter Care Teams Sole Layer Hand Relationship Specialty Start Date End Date Faith Mason MD [address] [place] [address] PCP - General Family Medicine 04/12/19 Linda Peralta Ticketing AgentDaycare Assistant 06/08/24 documented as of this encounter
--- OUTSIDE RECORDS SUMMARY | 2025-04-04 15:10 | XMS_ITS | Encounter Summary ---
Author Organization [employer] Address [address] [facility] 7t [place] [address] Care Team Providers Care Buttonhole Maker Name Role Phone Faith Mason MD Primary Care Provide r Reason for Visit * Reason Comments Med Refill Encounter Details Date Type Department Care Team ([facility] st Contact Info) Description 04/04/2024 Refill [facility] [address] [place], [place] [phone] Faith Mason MD [address] [place], [place] [phone] Essential hypertension Social History Tobacco Use Types [...] Description 05/11/2025 10:45 AM EST Office Visit [facility] MEDICINE [address] [place] [phone] Faith Mason MD [address] [place] [address] 06/08/2025 2:15 PM EST Office Visit [facility] ADULT DENTAL [address] [place] [address] Karen Shannon [address] [place] [address] documented as of this encounter Visit Diagnoses Diagnosis Essential hypertension Unspecified essential hypertension documented in this encounter Additional Health Concerns Assessment Noted Time PHQ-9 Depression Total Score: 6 11/24/19 24 2:35 PM EDT documented as of this encounter Care Teams Buttonhole Maker Relationship Specialty Start Date End Date Faith Mason MD [address] [place] [address] PCP - General Family Medicine 04/12/19 Linda Peralta Food HandlerClay Worker 06/08/24 documented as of this encounter
--- OUTSIDE RECORDS SUMMARY | 2025-04-04 15:10 | XMS_ITS | Encounter Summary ---
Author Organization [employer] Address [address] [facility] 7t [place] [address] Care Team Providers Care Architectural Design Lecturer Name Role Phone Faith Mason MD Primary Care Provide r Encounter Details Date Type Department Care Team ([facility] st Contact Info) Description 08/05/2024 Telephone [facility] MEDICINE 230 [place], [place] [phone] Faith Mason MD [address] [place], [place] [phone] Social History Tobacco Use Types Packs/Day Years [...] Description 05/11/2025 10:45 AM EST Office Visit [facility] MEDICINE [address] [place] [address] Faith Mason MD [address] [place] [address] 06/08/2025 2:15 PM EST Office Visit [facility] ADULT DENTAL [address] [place] [address] Shiva, Karen [address] [place] [address] documented as of this encounter Visit Diagnoses Not on filedocumented in this encounter Additional Health Concerns Assessment Noted Time PHQ-9 Depression Total Score: 6 11/24/19 24 2:35 PM EDT documented as of this encounter Care Teams Architectural Design Lecturer Relationship Specialty Start Date End Date Faith Mason MD [address] [place] [address] PCP - General Family Medicine 04/12/19 Linda Peralta Quality EngHealth Spa Manager 06/08/24 documented as of this encounter
--- OUTSIDE RECORDS SUMMARY | 2025-04-04 15:10 | XMS_ITS | Encounter Summary ---
Author Organization [employer] Address [address] [facility] 7t [place] [address] Care Team Providers Care Car Inspection And Repair Manager Name Role Phone Faith Mason MD Primary Care Provide r Encounter Details Date Type Department Care Team ([facility] st Contact Info) Description 08/05/2024 Telephone [facility] MEDICINE [address] [place], [place] [phone] Faith Mason MD 230 [place], [place] [phone] Social History Tobacco Use Types Packs/Day Years [...] Description 05/11/2025 10:45 AM EST Office Visit [facility] MEDICINE [address] [place] [phone] Faith Mason MD [address] [place] [address] 06/08/2025 2:15 PM EST Office Visit [facility] ADULT DENTAL [address] [place] [phone] Shiva, Karen [address] [place] [address] documented as of this encounter Visit Diagnoses Not on filedocumented in this encounter Additional Health Concerns Assessment Noted Time PHQ-9 Depression Total Score: 6 11/24/19 24 2:35 PM EDT documented as of this encounter Care Teams Car Inspection And Repair Manager Relationship Specialty Start Date End Date Faith Mason MD [address] [place] [address] PCP - General Family Medicine 04/12/19 Linda Peralta Supervisor Car And YardFirefighter 06/08/24 documented as of this encounter
--- OUTSIDE RECORDS SUMMARY | 2025-04-04 15:10 | XMS_ITS | Clinical Summary ---
Author Organization [employer] Address [address] [place] [address] 7[address] [place] [address] Care Team Providers Care Granulator Machine Operator Name Role Phone Faith Mason [...] 024 Active Blood Glucose Monitoring Suppl (FreeStyle [place] Lite) w/Device kitIndications: Type 2 diabetes mellitus with hyperglycemia, with long-term current use of insulin (HCC) Use to test blood sugar 3 times daily 1 kit Active TRUEplus Lancets 33G miscIndications :Type 2 diabetes mellitus with hyperglycemia, with long-term current use of insulin ([facility]) TEST BLOOD SUGAR THREE TIMES DAILY [...] hyperglycemia, with long-term current use of insulin ([facility]) INJECT 28 UNITS SUBCUTANEOUSLY EVERY DAY 6 mL 1 Active guaiFENesin 200 MG/10ML liquidIndicatio ns:Acute cough Take 10 mL by mouth every 6 (six) hours if needed (take for cough if needed). 236 mL Active brimonidine (AlphaGAN) 0.2 % ophthalmic solution Administer 1 drop into the left eye 3 times daily. Active Continuous Glucose Institutional Custodian (FreeStyle [place]) device Use as directed Active Continuous Glucose [...] take another tablet 1 tablet 025 Active amoxicillin (Amoxil) 500 MG capsuleIndicati [...] A WEEK 120 mL 2 025 Active melatonin 5 MG tabletIndicatio ns:Primary insomnia TAKE 1 TABLET BY MOUTH AT BEDTIME FOR SLEEP 90 tablet 1 025 Active amLODIPine (Norvasc) 10 MG tabletIndicatio ns:Essential hypertension TAKE 1 TABLET BY MOUTH EVERY MORNING 90 tablet 1 Active melatonin 5 MG tabletIndicatio ns:Primary insomnia TAKE 1 TABLET BY MOUTH AT BEDTIME FOR SLEEP 90 tablet 1 025 2024 Discontinued amLODIPine (Norvasc) 10 MG tabletIndicatio ns:Essential hypertension TAKE 1 TABLET BY MOUTH EVERY MORNING 90 tablet 1 025 2024 Discontinued Active Problems Patient [...] 01/19/2025 Acute hyperkalemia 01/19/2025 AF (atrial fibrillation) ([facility]) 01/19/2025 Anemia of chronic kidney failure 01/19/2025 Carpal tunnel syndrome on both sides 01/19/2025 Cubital tunnel syndrome on left 01/19/2025 Cubital tunnel syndrome on right 01/19/2025 Degenerative joint disease (DJD) of hip 01/20/20 Elevated troponin 01/19/2025 Hemorrhage of arteriovenous fistula [...] 01/19/2025 AMARJIT on CPAP 01/19/2025 Pulmonary HTN ([facility]) 01/19/2025 Obesity due to excess calories 01/19/2025 Severe obesity (BMI 35.0-39.9) with comorbidity ([facility]) 01/19/2025 Unstable angina ([facility]) 01/19/2025 Chest pain 01/19/2025 CAD (coronary artery disease) 01/19/2025 Chronic kidney disease with end stage renal failure on dialysis ([facility]) 01/19/2025 Acid reflux 01/19/2025 Overview (01/19/2025): [...] (05/21/2022 9:19 AM EST): -Currently followed by [facility] - last available consult note Jan 2022 w/ Dr. Miller -Continues with current med regimen: -Januvia 25mg PO daily -Tuojeo insulin 28 units subcutaneous daily -Lispro AC per SS -Dexcom ordered and managed through [facility] -Strongly encourage pt to schedule follow up appt with specialists. ED precautions reviewed. -Follow up in 1 month, sooner as needed. Abnormal gait 05/15/2022 End stage renal failure on dialysis ([facility]) Assessment & Plan (11/25/2023 5:22 PM EDT): [...] remission 09/02/2018 Coronary artery disease invo lving [place] coronary artery of [place] heart with unstable angina pectoris 06/03/2018 Calculus [...] Encounters Date Type Department Care Team Description 03/26/2025 Refill [facility] CHC MED & PEDS [address] [place] [address] Faith Mason MD Primary insomnia; Essential hypertension 03/21/2025 Orders Only GENERIC EXTERNAL DATA DEPARTMENT Provider, Generic External Data 03/14/2025 Telephone [facility] MEDICINE [address] [place] [address] Faith Mason MD Medication Question 02/24/2025 Refill [facility] MEDICINE [address], [place] [phone] Faith Mason MD Other constipation; Seborrheic dermatitis 02/23/2025 Orders Only GENERIC EXTERNAL DATA DEPARTMENT Provider, Generic External Data 02/23/2025 Refill [facility] MEDICINE [address] [place] [address] Faith Mason MD Atrial flutter, unspecified type (CMS/HCC) (HCC); Right arm pain; Numbness and tingling of right arm 02/16/2025 Telephone [facility] MEDICINE [address] [place] [address] Faith Mason MD Dec recall 01/26/2025 Results Follow-Up [facility] [address] [place] [phone] Faith Mason MD POCT Glucose, POCT HGB A1C, Bacterial Vaginosis, Chlamydia/N. Gonorrhoeae RNA, TMA, Vaginal 01/25/2025 1:00 PM EDT Office Visit [facility] ADULT DENTAL [address] [place] [address] [place] D[facility] Bleeding post tooth extraction (Primary Dx) 01/24/2025 1:00 PM EDT Office Visit [address] [address] Faith Mason MD Mouth bleeding (Primary Dx); Vaginal discharge; Pelvic pain; Chronic frontal sinusitis; Great toe pain, right; Diabetic polyneuropathy associated with type 2 diabetes mellitus ([facility]/HCC); Acute otitis externa, unspecified laterality, unspecified type; Seborrheic dermatitis; Postmenopausal bleeding 01/24/2025 Travel 01/19/2025 1:30 PM EDT Office Visit [facility] ADULT DENTAL [address] [place] [address] [place] D[facility] Severe dental caries (Primary Dx); Pain, dental 01/17/[address] [address] Faith Mason MD 01/16/2025 Patient Outreach [address] [address] Faith Mason MD Pre-visit Planning (SDOH screening negative and tobacco screening negative) 01/10/[address] [address] Faith Mason MD Durable Medical Equipment from Last 3 Months Immunizations Immunization Administration [...] Description 05/11/2025 10:45 AM EST Office Visit [facility] MEDICINE [address] [place] [address] Faith Mason MD [address] [place] [address] 06/08/2025 2:15 PM EST Office Visit [facility] ADULT DENTAL [address] [place] [address] Karen Shannon [address] [place] [address] Health Maintenance Due Date Last Done Comments CT Colonography 1965 Colonoscopy 1966 Dental Prophylaxis 1965 FIT 1965 Sigmoidoscopy 1965 Disability Screening 1966 Diabetes: Foot Exam 1976 Eye Exam 1976 Alcohol/Substance Use Screening 1978 DTaP/Tdap/Td Vaccines (1 - Tdap) 1985 Hepatitis B Vaccines (2 of 3 - 19+ 3-dose series) 12/10/2018 11/12/2018 Diabetes: Urine Protein Screening 07/23/2021 07/23/2020, 07/23/2020 [...] Completed 02/15/2025, , 02/27/2023, Additional history exists Pneumococcal Vaccine: 50+ Years Completed 02/24/2025, 04/05/2019 HIB Vaccines Aged Out No longer eligi [...] Procedure Name Priority Date/Time Associated Diagnosis Comments AMB REFERRAL TO ENT Routine 03/28/2025 Chronic frontal sinusitis DECALCIFICATION Routine 03/21/2025 11:18 AM EDT GLUCOSE, WHOLE BLOOD Routine 02/23/2025 10:49 AM [...] PM EDT HPV DNA, LOW/HIGH RISK Routine 12:00 AM EDT PAP SMEAR Routine 08/23/2024 [...] Recently Relevant to Health Maintenance Results * Referral to ENT (03/28/2025) us Faith No MD OUTPATIENT REFERRAL [place] Final Result * Decalcification (03/21/2025 11:18 AM EDT) 03/21/2025 11:1 8 AM EDT 03/22/2025 7:04 AM EDT Narrative [facility] - 03/24/2025 10:45 AM EDT ----- ------- Name: Chano MakSarah Age/Sex: 60/F : 1965 Unit#: [id number] Attend Dr: Iglesia Coyne DPM Re03/21/25 Status: [facility] REF Location: [facility] Disch: ----- ------- SPEC : [id number] RECD: 03/22/25 STATUS: FELA UMAÑA NUM: [id number] NADJA: 03/21/[address]: Iglesia Coyne DPM ENTERED: 03/22/25 SP TYPE: Surgical OTHR DR: Faith Mason MD ORDERED: Benton New Micro L3, Specials Gr. 1, PASF Diagnosis Toenails, right hallux, debridement: Fragments of nail plate with dystrophic changes and few fungal organisms identified (highlighted by PASF) consistent with onychomycosis. Clinical History Tinea unguium Microscopic Description Microscopic sections reviewed. Material Received Please assess for fungal elements. Right hallux nail Gross Description Received fresh are 2 clifford-mcnair 5 and 12 mm hyperkeratotic tissue fragments, consistent with nail, totally submitted in cassette A1, following processing in sodium hydroxide per order of Dr. Mcmahon. (DTL) Special stains ordered and performed: PASF on A. IHC S/NG Disclaimer NOTE: Unless otherwise stated, all tissue is formalin-fixed and paraffin-embedded. Some or all of the immunohistochemical tests reported herein may have been developed and their performance characteristics determined by [facility]. They have not been cleared or approved by the U.S. Food and Drug Administration (FDA). However, the FDA has determined that such clearance or approval is not necessary. This laboratory is certified under the Clinical Laboratory Improvement Amendments of 1988 (CLIA) as qualified to perform high complexity clinical laboratory testing. Copies To: Faith Mason MD [address] [address] CONTINUED ON NEXT PAGE ----- ------- Name: Sarah Dixon Age/Sex: 60/F : 1965 Unit#: [id number] Attend Dr: Iglesia Coyne DPM Re03/21/25 Status: [facility] ROJAS Location: HO.LNP Disch: ----- ------- SPEC : [id number] RECD: 03/22/25 STATUS: FELA UMAÑA NUM: [id number] NADJA: 03/21/258 [facility] DR: Iglesia Coyne DPGracie ENTERED: 03/22/25 SP TYPE: Surgical OTHR DR: Faith Mason MD ORDERED: Benton New L3, Specials Gr. 1, PASF Copies To: (Continued) Iglesia Coyne DPM [address] [address] [email or web address] ----- ------- Signed (signature on file) Che Mayer MD 03/24/25 1045 ----- ------- END OF REPORT Generic External Data Provider HISTORICAL/NON OR DERABLE LABS Final Result Performing Organization Address [facility] de Phone Number [facility] [address] [place] [phone] * (ABNORMAL) Glucose, Whole Blood (02/23/2025 10:49 AM EDT) [facility] Glucose, Whole Blood 289(H) 60 - 115 mg/dL [facility] Comment:METER #: [id number] 0Testing performed in the Endocrinology Department [address] , [address], [facility]. 02/23/2025 10:4 9 AM EDT 02/23/2025 10:55 AM EDT Generic External Data Provider LAB BLOOD ORDERAB LES Final Result Performing Organization Address [facility] de Phone Number [facility] [address] [place] [phone] [phone] * Hepatitis A,B,C Profile (01/31/2025 2:07 PM EDT) [facility] Hepatitis A IgM Nonreactive Nonreactive [facility] Comment:IgM antibodies to CARTWRIGHT V not detected; does not exclude earlyacute or recovered HAV infection. ~Hepatitis B Surface Antibody REACTIVE Nonreactive [facility] Comment:REACTIVE: > 11.99 mI U/mL Hepatitis B Core Antibody Nonreactive Nonreactive [facility] Hepatitis C Antibody Nonreactive Nonreactive [facility] Comment:Antibodies to HCV no t detected; does not exclude early acuteHCV infection. Hepatitis B Surface Ag Negative Negative [facility] Blood Venous blood specimen / Unknown 01/31/2025 2:07 PM EDT 01/31/2025 4:09 PM EDT Faith No MD LAB BLOOD ORDERABLES Final Result Performing Organization Address [facility] Co de Phone Number [facility] [address] [place] [phone] * RPR (Monitor) with Reflex to??Titer (01/31/2025 2:07 PM EDT) RPR (Monitor) w/Refl Titer NON-REACTI VE NON-REACT JOHNNY [facility] Comment:THIS TEST WAS PERFOR MED AT:[facility] [facility] [place] [id number] ALICEA MD Rapid Plasma Reagin Ab Titer TNP [facility] Blood Venous blood specimen / Unknown 01/31/2025 2:07 PM EDT 01/31/2025 4:09 PM EDT Faith No MD LAB BLOOD ORDERABLES Final Result Performing Organization Address [facility] de Phone Number [facility] [address] [place] [phone] * HIV-1/2 Antigen and Antibodies, Fourth Generation, with Reflexes (01/31/2025 2:07 PM EDT) HIV AB/AG Nonreactive Nonreactive [facility] Comment:HIV-1 p24 Ag and/or HIV-1/HIV-2 Ab not detected.A test result that is nonreactive does not exclude thepossibility of exposure to or infection with HIV-1 and/orHIV-2. Nonreactive results in this assay for individualswith prior exposure to HIV-1 and/or HIV-2 may be due toantigen and antibody levels that are below the limit ofdetection of this assay.The [employer] HIV Ag/Ab Combo assay result andsupplemental assay results should be interpreted inconjunction with the patient's clinical presentation,history and other laboratory results. If the results areinconsistent with clinical evidence, additional testing issuggested to confirm the result. Blood Venous blood specimen / Unknown 01/31/2025 2:07 PM EDT 01/31/2025 4:09 PM EDT us Faith No MD LAB BLOOD ORDERABLES Final Result [facility] [address] [place] [phone] * Chlamydia/N. Gonorrhoeae RNA, TMA, Vaginal (01/24/2025 2:02 PM EDT) Pathologist [facility] CT PCR NOT DETECTED Not Detect. [facility] Comment:A not detected test [...] psychologicalconsequences. NG PCR NOT DETECTED Not Detect. [facility] Comment:A not detected test [...] 2:02 PM EDT 01/24/2025 5:56 PM EDT us Faith No MD LAB MICROBIOLOGY - GE NERAL ORDERABLES Final Result Performing Organization Address [facility] Co de Phone Number [facility] [address] [place] [phone] * (ABNORMAL) Bacterial Vaginosis (01/24/2025 2:01 PM EDT) TRICHOMONAS VAGINALIS DETECTION BY PCR NOT DETECTED Not Detect [facility] BACTERIAL VAGINOSIS DETECTION BY PCR NEGATIVE Negative [facility] Comment:The BV organism targ [...] GROUP DETECTION BY PCR DETECTED(A) Not Detect [facility] Kym glab krusei PCR NOT DETECTED Not Detect [facility] Swab Vaginal structure / Unknown 01/24/2025 2:01 PM EDT 01/24/2025 5:56 PM EDT us Faith No MD LAB MICROBIOLOGY - GE NERAL ORDERABLES Final Result Performing Organization Address City/[facility]/ZIP Co de Phone Number [facility] [address] [place] [address], [place] [phone] * (ABNORMAL) POCT HGB A1C (01/24/2025 1:52 PM EDT) Pathologist [facility] Hemoglobin A1C 9.7(A) 4.0 - 5.7 % QC Media Lot # [id number] Lot# Expiration Date 41,627 Blood 01/24/2025 1:52 PM EDT Faith No MD POINT OF CARE TEST EN TER/EDIT ORDERABLES Final Result * (ABNORMAL) POCT Glucose (01/24/2025 1:51 PM EDT) Pathologist [facility] Glucose Blood, POC 351(A) 60 - 200 mg/dL QC Media Lot # [id number] Lot# Expiration Date 22,726 Blood Capillary blood specimen / Unknown 01/24/2025 1:51 PM EDT Faith No MD POINT OF CARE TEST EN TER/EDIT ORDERABLES Final Result * HPV DNA, Low/High Risk (08/23/2024 12:00 AM EDT) [facility] HPV High Risk Negative Negative [facility] HPV Genotype 16 Negative Negative [facility] HPV Genotype 18 Negative Negative [facility] Comment:HPV testing performe d at (CLIA#[id number]), [address] [place] [address].Testing for HPV was performed using the Mike [...] No MD LAB BLOOD ORDERABLES Final Result [facility] [address] [place] [phone] * Pap Smear (08/23/2024 12:00 AM EDT) Swab 08/23/2024 08/24/2024 6:0 0 AM EDT Narrative [facility] - 08/29/2024 1:23 PM EDT ----- ------- Name: Sraah Dixon Age/Sex: 59/F : 1965 Unit#: [id number] Attend Dr: Faith Mason MD Re08/23/24 Status: DEP REF Location: HO.HHCLNP Disch: ----- ------- SPEC : [id number] RECD: 08/24/24 STATUS: FELA UMAÑA NUM: [id number] NADJA: 08/23/[address]: Faith Mason MD [...] MD LAB CYTOLOGY ORDERABL ES Final Result [facility] [address] [place] [phone] * BI Mammogram Screening Tomosynthesis Bilateral (07/18/2024 11:24 AM EST) Anatomical Region Laterality Modality Breast Bilateral Mammography 07/18/2024 11:2 4 AM EST Narrative 07/23/2024 12:27 PM EST [facility] [address] [place] [address] [place] [address] Mammography Report Signed Patient: Sarah Dixon MR#: [id number] : 1965 Acct:[id number] Age/Sex: 59 / F ADM Date: 07/18/24 Loc: HO.MAMMO Attending Dr: Faith No MD Ordering Physician: Faith Mason MD Results: 1Negative Date of Service: 07/18/24 Follow Up: 1 Year From Orig inal Mammogram Procedure(s): MM tomosynthesis screening BI Accession Number(s): [id number] cc: Faith Mason MD EXAMINATION: MM SCREENING [...] by: Alicia Archuleta DO 07/23/2024 12:23 PM [facility] Dictated By: Alicia Archuleta DO Signed By: <Electronically signed by Alicia Archuleta DO in OV> 07/23/24 1223 DD/ 1124 TD/TT: 07/18/24 1124 Paralegal Legal Secretary: Procedure Note Donotuseinterpreter, Image - 07/23/2024 [facility] [address] [place] [address] Mammography Report Signed Patient: Sarah Dixon#: [id number] : 1965Acct:[id number] Age/Sex: 59 / FADM Date: 07/18/24 Loc: JG Attending Dr: Faith No MD Ordering Physician: Faith Mason MDResults: 1Negative Date of Service: 07/18/24Follow Up: 1 Year From Orig ina Mammogram Procedure(s): MM tomosynthesis screening BI Accession Number(s): [id number] cc: Faith Mason MD EXAMINATION: MM SCREENING [...] by: Alicia Archuleta DO 07/23/2024 12:23 PM [facility] Dictated By: Alicia Archuleta DO Signed By: <Electronically signed by Alicia Archuleta DO in OV> 07/23/24 1223 DD/ 1124 TD/TT: 07/18/24 1124 Paralegal Legal Secretary: us Faith No MD IMG BI PROCEDURES Yoshi telma Result - Final * (ABNORMAL) Lipid Panel with Reflex to Direct LDL (12/01/2023 1:06 PM EDT) Triglycerides 81 <150 mg/dL [facility] Comment:Desirable Triglyceri de: less than 150 mg/dLBorderline High Triglyceride 150-199 mg/dLHigh Triglyceride: 200-499 mg/dLVery High Triglyceride: greater than or equal to 5OO mg/dL Cholesterol 77 <200 mg/dL [facility] Comment:Desirable Cholestero l: less than 200 mg/dLBorderline High Cholesterol: 200-239 mg/dLHigh Cholesterol: greater than 239 mg/dL LDL Cholesterol Calculated 30 <100 mg/dL [facility] Comment:Desirable LDL: less than 100 mg/dLNear Optimal/Above Optimal LDL: 110- 129 mg/dLBorderline High LDL: 130-159 mg/dLHigh LDL: 160-189 mg/dLVery High LDL: greater than or equal to 190 mg/dL HDL Cholesterol 31(L) >40 mg/dL [facility] Comment:Desirable HDL: great er than 40 mg/dL Note: This HDL assay may give artificially low results in patients with liver disease. Blood 12/01/2023 1:06 PM EDT 12/01/2023 1:11 PM EDT Faith No MD LAB BLOOD ORDERABLES Final Result [facility] [address] [place] [phone] * Cologuard?? colon cancer screening (09/17/2023 12:00 PM EDT) Cologuard Result Negative Negative 09/25/19 10:09 AM EDT [employer] (CLIA #:[id number]) Comment: NEGATIVE TEST RESULT. A negative Cologuard [...] (Kacey Jalloh al, N Engl J Med 2014;370(14):6740-8585) The normal value (reference range) for this assay is negative. COLOGUARD RE-SCREENING RECOMMENDATION: Periodic colorectal cancer screening is an important part of preventive healthcare for asymptomatic individuals at average risk for colorectal cancer. Following a negative Cologuard result, the [place] [employer] Society and U.S. Multi-Society Task Force screening guidelines recommend a Cologuard re-screening interval of 3 years. References: [place] [employer] Guideline for Colorectal Cancer Screening: https://www.cancer.org/cancer/tyhva-txpfkj-vzfkif/rmetbcggs-zbtcceowt-uutontj/ac s-rec ommendations.html.; Maxi DK, Robinson CR, Barry TateK, Colorectal Cancer Screening: Recommendations for Physicians and Patients from the U.S. Multi-Society Task Force on Colorectal Cancer Screening , Am J Gastroenterology 2017; 112:8635-6750. TEST DESCRIPTION: Composite algorithmic analysis of stool [...] (Kacey Jalloh al, N Engl J Med 2014;370(14):9745-6074.) Cologuard may produce a false negative or false positive result (no colorectal cancer or precancerous polyp present at colonoscopy follow up). A negative Cologuard test result does not guarantee the absence of CRC or advanced adenoma (pre-cancer). The current Cologuard screening interval is every 3 years. ([place] [employer] Society and U.S. Multi-Society Task Force). Cologuard performance data in a 10,000 patient pivotal study using colonoscopy as the reference method can be accessed at the following location: www.[employer].com/results. Additional description of the Cologuard test process, warnings and precautions can be found at www.colSirona Biochemrd.com. Stool specimen (specimen) 09/17/2023 12:00 PM EDT 09/18/2023 10:51 AM EDT us Faith No MD LAB MOLECULAR DIAGNOS TICS ORDERABLES Final Result [employer] (CLIA #:[id number]) [address] [place] [address], * MICROALBUMIN, RANDOM (07/23/2020 9:00 AM EST) [...] ORDERABLE LABS Final Result Performing Organization Address City/[facility]/ZIP Co de Phone Number [facility] [address] from Last 3 Months or Most Recently Relevant to Health Maintenance Insurance [facility] C[facility] [place] AD[place] Care Teams Granulator Machine Operator Relationship Specialty Start Date End Date Faith Mason MD [address] [place] [address] PCP - General Family Medicine 04/12/19 Linda Peralta Needle Felt Making Machine OperatorTobacco Wetter 06/08/24
--- OUTSIDE RECORDS SUMMARY | 2025-04-04 15:10 | XMS_ITS | Encounter Summary ---
Author Organization [employer] Address [address] [facility] [address] [place] [address] Care Team Providers Care Water Hydrant Installer Name Role Phone Faith Mason MD Primary Care Provide r Reason for Visit * Reason Comments Med Refill Encounter Details Date Type Department Care Team ([facility] st Contact Info) Description 04/05/2024 Refill [facility] CHC MED & PEDS [address] [place], [place] [phone] Faith Mason MD [address] [place], [place] [phone] Atrial flutter, unspecified type (CMS/HCC); Diabetic polyneuropathy [...] the past 12 months, has t he [employer], gas, oil or water [employer] threatened to shut off services in your [...] Description 05/11/2025 10:45 AM EST Office Visit [facility] MEDICINE [address] [place] [phone] Faith Mason MD [address] [place] [address] 06/08/2025 2:15 PM EST Office Visit [facility] ADULT DENTAL [address] [place] [address] Karen Shannon [address] [place] [address] documented as of this encounter Visit Diagnoses Diagnosis Atrial flutter, unspecified type (CMS/HCC) (HCC) Diabetic polyneuropathy associated with type 2 diabetes mellitus (HCC) documented in this encounter Additional Health Concerns Assessment Noted Time PHQ-9 Depression Total Score: 6 11/24/19 24 2:35 PM EDT documented as of this encounter Care Teams Water Hydrant Installer Relationship Specialty Start Date End Date Faith Mason MD [address] [place] [address] PCP - General Family Medicine 04/12/19 Linda Peralta Dementia Program DirectorFountain Roller Assembler 06/08/24 documented as of this encounter
--- OUTSIDE RECORDS SUMMARY | 2025-04-04 15:10 | XMS_ITS | Encounter Summary ---
Author Organization [employer] Address 75 [facility] 7t [place] [address] Care Team Providers Care Video Game Engineer Name Role Phone Faith Mason MD Primary Care Provide r Reason for Visit * Reason Comments Med Refill Encounter Details Date Type Department Care Team ([facility] st Contact Info) Description 11/18/2024 Refill [facility] MEDICINE [address] [place], [place] [phone] Faith Mason MD [address] [place], [place] [phone] Right arm pain; Numbness and tingling of [...] Description 05/11/2025 10:45 AM EST Office Visit [facility] MEDICINE [address] [place] [phone] Faith Mason MD [address] [place] [address] 06/08/2025 2:15 PM EST Office Visit [facility] ADULT DENTAL [address] [place] [address] Shiva, Karen [address] [place] [address] documented as of this encounter Visit Diagnoses Diagnosis Right arm pain Pain in soft tissues of limb Numbness and tingling of right arm documented in this encounter Additional Health Concerns Assessment Noted Time PHQ-9 Depression Total Score: 6 11/24/19 24 2:35 PM EDT documented as of this encounter Care Teams Video Game Engineer Relationship Specialty Start Date End Date Faith Mason MD [address] [place] [address] PCP - General Family Medicine 04/12/19 Linda Peralta Day Care WorkerCasino Beverage Server 06/08/24 documented as of this encounter
--- OUTSIDE RECORDS SUMMARY | 2025-04-04 15:10 | XMS_ITS | Encounter Summary ---
Author Organization [employer] Address 75 [facility] 7t [place] [address] Care Team Providers Care Ambulance Driver Paramedic Name Role Phone Faith Mason MD Primary Care Provide r Reason for Visit * Reason Onset Date Comments Durable Medical Equipment 11/05/2023 Encounter Details Date Type Department Care Team (Late st Contact Info) Description 11/05/2023 Telephone [facility] MEDICINE [address] [place], [place] [phone] Faith Mason MD [address] [place], [place] [phone] Durable Medical Equipment Social History Tobacco Use [...] 11/05/2023 12:47 PM EDT Silver Mckeon at [facility] calling to request the following DME. Shower Chair Shower grab bars Wheel chair Rolator walker with seat documented in this encounter Plan of Treatment Upcoming Encounters Date Type Department Care Team (Late st Contact Info) Description 05/11/2025 10:45 AM EST Office Visit [facility] MEDICINE [address] [place] [address] Faith Mason MD [address] [place] [address] 06/08/2025 2:15 PM EST Office Visit [facility] ADULT DENTAL [address] [place] [address] Shiva, Karen [address] [place] [address] documented as of this encounter Visit Diagnoses Not on filedocumented in this encounter Additional Health Concerns Assessment Noted Time PHQ-9 Depression Total Score: 14 023 2:21 PM EDT documented as of this encounter Care Teams Ambulance Driver Paramedic Relationship Specialty Start Date End Date Faith Mason MD [address] [place] [address] PCP - General Family Medicine 04/12/19 Linda Peralta Cheese Factory WorkerRetail Sales Professional 06/08/24 documented as of this encounter
--- OUTSIDE RECORDS SUMMARY | 2025-04-04 15:10 | XMS_ITS | Encounter Summary ---
Author Organization [employer] Address [address] [place] [address] 7t [place] [address] Care Team Providers Care Cage Maker Machine Name Role Phone Faith Mason MD Primary Care Provide r Reason for Visit * Reason Comments Med Change Request Encounter Details Date Type Department Care Team ([facility] Contact Info) Description 11/28/2022 Refill [facility] MEDICINE [address] [place], [place] [phone] Faith Mason MD [address] [place] [address] Type 2 diabetes mellitus with hyperglycemia, with long-term current use of insulin ([facility]) Social History Tobacco Use Types Packs/Day [...] Description 05/11/2025 10:45 AM EST Office Visit [facility] MEDICINE [address] [place] [address] Faith Mason MD [address] [place] [address] 06/08/2025 2:15 PM EST Office Visit [facility] ADULT DENTAL [address] [place], [place] [phone] Jacob Shannonaris [address] [place] [address] documented as of this encounter Visit Diagnoses Diagnosis Type 2 diabetes mellitus with hyperglycemia, with long-term current use of insulin (HCC) documented in this encounter Additional Health Concerns Assessment Noted Time PHQ-9 Depression Total Score: 14 023 2:21 PM EDT documented as of this encounter Care Teams Cage Maker Machine Relationship Specialty Start Date End Date Faith Mason MD [address] [place] [phone] PCP - General Family Medicine 04/12/19 Linda Peralta Med Surg RnFender Mechanic 06/08/24 documented as of this encounter
== END 2025-04-04 14:07 | disposition home or self-care (01) ==
LOC: HO.HPODS 13:32
PROVIDERS: PCP Internal Medicine; Visit Provider Student in an Organized Health Care Education/Training Program
DX: E11.22 Type 2 diabetes mellitus with diabetic chronic kidney disease (principal); N18.6 End stage renal disease; B35.3 Tinea pedis; M20.21 Hallux rigidus, right foot; M20.22 Hallux rigidus, left foot; B35.1 Tinea unguium; R23.0 Cyanosis
CPT/HCPCS: 99213

== ENCOUNTER → 2025-04-04 13:32 | Outpatient (BNVA) | payer MEDICAID, SELFPAY | PROVIDERS: PCP Internal Medicine; Visit Provider Student in an Organized Health Care Education/Training Program | DX: E11.22 Type 2 diabetes mellitus with diabetic chronic kidney disease (principal); N18.6 End stage renal disease; B35.3 Tinea pedis; M20.21 Hallux rigidus, right foot; M20.22 Hallux rigidus, left foot; B35.1 Tinea unguium; R23.0 Cyanosis | CPT/HCPCS: 99212 ==

== ENCOUNTER 2025-04-18 13:09 | Outpatient (AMB) | payer MEDICAID, SELFPAY ==
--- NOTE | 2025-04-18 13:11 | MHC.OFFVIS ---
Vital Signs 04/18/25 13:12 Height 5 ft 6 in Weight 209 lb 7.026 oz BMI 33.8 BP 124/84 Blood Pressure Location Rt brachial Position Sitting Pulse 76 Intake Visit Reasons: 3 mo f/u r/s 10-11-24 Intake Note: Follow-up feeling good Molding Process Technician Required: Yes Molding Process Technician Services: Molding Process Technician Offered & Declined Movable Bulkhead Installer: Movable Bulkhead Installer Present Accompanied by: molded frames assembler Allergies No Known Allergies Allergy (Verified 04/04/25 13:55) Medication List - Last Reconciled 04/18/25 by CELESTINA Romero amlodipine 10 mg PO DAILY apixaban (Eliquis) 5 mg PO BID 90 days atorvastatin 40 mg PO DAILY@1200 blood-glucose meter (FreeStyle Lite Meter kit) As directed blood-glucose sensor (FreeStyle Tika 3 Plus Sensor device) As directed every 15 days brimonidine 0.2% 1 drp ophthalmic-Left TID calcium polycarbophil (Fiber-Lax) 625 mg PO DAILY capsaicin 0.1% (Arthritis Pain Relief (capsaicin)) 1 appl topical BID cholecalciferol (vitamin D3) (Vitamin D3) 50 mcg PO DAILY clopidogrel (Plavix) 75 mg PO DAILY clotrimazole 1% (Antifungal (clotrimazole)) 1 appl topical DAILY 4 weeks [Diabetic shoes Please dispense extra-depth shoes with 3 pairs of custom molded inserts.] FreeStyle Lite Strips (blood sugar diagnostic) TEST BLOOD SUGAR FOUR TIMES DAILY prn sensor failure or to confirm sensor readings NS glucose (Dex4 Glucose) 16 grams (4 x 4 gram) PO Q15M PRN 30 days MDD 16 tablets hydralazine 1 tab PO TID@0900,1200,1800 insulin glargine U-300 conc (Toujeo SoloStar U-300 Insulin) 18 units (0.06 mL) subcut BEDTIME 30 days insulin lispro 10 - 16 units (0.1 - 0.16 mL) subcut DIRECTED 30 days ketorolac 0.5% 1 drp ophthalmic (eye) TID lancets (TRUEplus Lancets) TEST BLOOD SUGAR FOUR TIMES DAILY prn to confirm sensor reading or sensor failure levothyroxine 25 mcg PO DAILY@0600 metoprolol tartrate 12.5 mg (1/2 x 25 mg) PO BID pantoprazole (Protonix) 20 mg PO DAILY pen needle, diabetic As directed 4 times a day sevelamer carbonate 800 mg PO TIDAC HPI HPI 3 mo f/u r/s 10-11-24: Details: Sarah is a 60 yo female with PMH of HTN, HLD, DM, ESRD on dialysis, obstructive sleep apnea with CPAP use, nonobstructive CAD, PAF, on Eliquis, NSTEMI with PCI to OM1 06/18/2024 who presents for follow-up. Today she reports that she has been feeling well since her last visit 06/28/2024. She has not been having any chest discomfort at rest or with activity. She denies shortness of breath, PND, orthopnea or edema. No lightheadedness, presyncope, syncope, falls. She has been ambulating and doing light activities around her home such as cooking and light housework. Has been attending dialysis sessions without missed appointments. SIGNAL FITTER is present and assisting with Montenegrin translation at their request. 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 Uncontrolled type 2 diabetes mellitus with hyperglycemia, with long-term current use of insulin Hidradenitis suppurativa Pneumonia Type 2 diabetes mellitus with hyperglycemia Paroxysmal atrial flutter Dysphonia Chronic cough Urinary frequency Dyspnea on exertion Unstable gait Asthma Chronic low back pain without sciatica Osteoarthritis of both knees Kidney stones Depression AMARJIT (obstructive sleep apnea) Normocytic anemia ESRD needing dialysis CHF (congestive heart failure) Obesity due to excess calories CAD (coronary artery disease) GERD (gastroesophageal reflux disease) Thyroid disease AV fistula HLD (hyperlipidemia) ESRD (end stage renal disease) T2DM (type 2 diabetes mellitus) End stage renal disease on dialysis Dialysis patient Renal failure (ARF), acute on chronic HTN (hypertension) Surgical History History of cardiac cath History of kidney surgery Hx of cholecystectomy Hx of bone graft Family History Father CVD (cardiovascular disease) Diabetes Mother Diabetes Sister Stomach cancer Social History Household Members: Spouse Household Members Other:: , brother, uncles Housing: House Do you presently have visiting nurse or other home services: Yes Alcohol intake: never Patient Tobacco Use Status: Never used Tobacco Advance Directives Date on File: 02/15/21 service: No Current occupational status: disabled Current occupation: right hand dominant Review of Systems Const All systems reviewed & are unremarkable except as noted in HPI and below Denies chills, Denies fatigue, Denies fever(s), Denies frequent falls, Denies weakness, Denies weight gain and Denies weight loss ENT Denies dizziness Card Denies chest pain, Denies leg edema, Denies lightheadedness, Denies palpitations, Denies dyspnea, Denies dyspnea on exertion, Denies orthopnea and Denies other (loss of consciousness) Resp Denies cough, Denies dyspnea and Denies dyspnea on exertion GI Denies hematochezia and Denies change in stool character Musc Denies abnormal gait, Denies muscle weakness, Denies numbness, Denies radiating pain into limb and Denies tingling Neuro Denies abnormal gait, Denies dizziness, Denies frequent falls, Denies numbness, Denies tingling and Denies weakness Endo Denies fatigue and Denies palpitations Physical Exam Vital Signs: Last Vital Signs Pulse 76 04/18/25 13:12 BP 124/84 04/18/25 13:12 BMI result Body Mass Index 33.8 Const General: cooperative, healthy appearing, comfortable and no acute distress Orientation/consciousness: patient oriented x3 Neck Neck: Yes normal visual inspection Resp Effort & Inspection: normal respiratory effort Auscultation: clear to auscultation bilaterally, no crackles, no rales, no rhonchi and no wheezes Cardio Jugular venous distension: no JVD Rate: regular rate Rhythm: regular rhythm Heart sounds: S1 normal heart sound present, S2 normal heart sound present, no murmurs and no rubs Neuro General: patient oriented x3 Extrem Other: right radial cath site with easily palpable radial pulse, right hand assessment normal General: Yes normal to inspection, No no pedal edema and No calf tenderness Psych Appearance: grossly normal Mental Status: mental status grossly normal Speech and movement: Normal speech and movement present Assessment & Plan Assessment & Plan (1) CAD (coronary artery disease): Code(s): I25.10 - Atherosclerotic heart disease of [place] coronary artery without angina pectoris Category: Medical Plan: History of nonobstructive CAD. She did undergo cardiac catheterization on 09/03/21 showing mild LAD and LCx stenosis and 30-40% distal RCA stenosis. She has been on appropriate medical management. She recently admitted to [facility] after fall at home. She was found to have an NSTEMI that was initially managed medically. She was set up for outpatient catheterization and no showed for her 1st appointment. Her catheterization was rescheduled and done on 06/14/2024 and showed significant 1st OM and proximal circumflex stenosis. She had PCI to OM1. Currently doing well with no anginal symptoms. Will continue her on Plavix for 1 year post stent, until 06/14/2025 then can be discontinued. Continue Eliquis. Continue atorvastatin with ideal LDL goal less than 70. Continue amlodipine and metoprolol. She completed cardiac rehab. Cardiology follow-up 6 months, sooner if needed. (2) S/P cardiac cath: Comment: 09/03/21 LM normal, LAD mild luminal irregularities < 30% stenosis, LCx mild luminal irregularities < 30%, Distal RCA 30-40% stenosis 06/14/2024, left main normal, lad normal, left circumflex 1st OM 99% stenosis, proximal circumflex 95% stenosis, distal RCA 40% stenosis, PCI to OM1 Code(s): Z98.890 - Other specified postprocedural states Category: Surgical Plan: Right radial catheterization site well healed (3) Paroxysmal atrial flutter: Code(s): I48.92 - Unspecified atrial flutter Category: Medical Plan: History of paroxysmal atrial flutter. No recent palpitations. Pulse is regular on examination, clinically in sinus rhythm. On metoprolol for rate control. On eliquis for anticoagulation. Labs done 03/23/2025 shows hematocrit 30.2, creatinine 6.11, dialysis patient. Continue current tx. (4) HTN (hypertension): Code(s): I10 - Essential (primary) hypertension Category: Medical Qualifiers: Hypertension type: unspecified Qualified Code(s): I10 - Essential (primary) hypertension Plan: Blood pressure goal less than 130/80. Controlled at present time. No med changes made. (5) ESRD (end stage renal disease): Code(s): N18.6 - End stage renal disease Category: Medical Plan: Attends dialysis 3 times weekly. Follows closely with nephrology (6) NSTEMI (non-ST elevated myocardial infarction): Code(s): I21.4 - Non-ST elevation (NSTEMI) myocardial infarction Category: Medical Plan: As above Plan Time spent on chart review, documentation, interview and assessment Coding Level of Care Code Est Pt Level 4 (81862) Complex visit Add On G2211 Diagnoses CAD (coronary artery disease) I25.10 S/P cardiac cath Z98.890 Paroxysmal atrial flutter I48.92 Hypertension, unspecified type I10 Hypertension type: unspecified ESRD (end stage renal disease) N18.6 NSTEMI (non-ST elevated myocardial infarction) I21.4 Time Spent (min) 28
[2025-04-18 13:12] VITALS: BP 124/84; PULSE 76; BMI 33.8
--- OUTSIDE RECORDS SUMMARY | 2025-04-18 16:56 | XMS_ITS | Encounter Summary ---
Author Organization [employer] Address [address] [facility] 7t [place] [address] Care Team Providers Care Fisheries Manager Name Role Phone Faith Mason MD Primary Care Provide r Reason for Visit * Reason Comments Med Refill Encounter Details Date Type Department Care Team ([facility] st Contact Info) Description 04/04/2024 Refill [facility] MED & PEDS [address] [place], [place] [phone] Faith Mason MD [address] [place], [place] [phone] Essential hypertension Social History Tobacco Use Types [...] Description 05/11/2025 10:45 AM EST Office Visit [facility] MEDICINE [address] [place] [address] Faith Mason MD [address] [place] [address] 06/08/2025 2:15 PM EST Office Visit [facility] ADULT DENTAL [address] [place] [address] Karen Shannon [address] [place] [address] documented as of this encounter Visit Diagnoses Diagnosis Essential hypertension Unspecified essential hypertension documented in this encounter Additional Health Concerns Assessment Noted Time PHQ-9 Depression Total Score: 6 11/24/19 24 2:35 PM EDT documented as of this encounter Care Teams Fisheries Manager Relationship Specialty Start Date End Date Faith Mason MD [address] [place] [address] PCP - General Family Medicine 04/12/19 Linda Peralta Ampoule SealerField Operations Technician 06/08/24 documented as of this encounter
--- OUTSIDE RECORDS SUMMARY | 2025-04-18 16:56 | XMS_ITS | Encounter Summary ---
Author Organization [employer] Address 75 [facility] 7t [place] [address] Care Team Providers Care Rubber Gasket Inspector Trimmer Name Role Phone Faith Mason MD Primary Care Provide r Encounter Details Date Type Department Care Team ([facility] st Contact Info) Description 03/08/2024 Orders Only [facility] MEDICINE [address] [place], [place] [phone] Faith Mason MD [address] [place], [place] [phone] Social History Tobacco Use Types Packs/Day Years [...] Description 05/11/2025 10:45 AM EST Office Visit [facility] MEDICINE [address] [place] [address] Faith Mason MD [address] [place] [phone] 06/08/2025 2:15 PM EST Office Visit [facility] ADULT DENTAL [address] [place] [phone] Shiva, Karen [address] [place] [address] documented as of this encounter Visit Diagnoses Not on filedocumented in this encounter Additional Health Concerns Assessment Noted Time PHQ-9 Depression Total Score: 6 11/24/19 24 2:35 PM EDT documented as of this encounter Care Teams Rubber Gasket Inspector Trimmer Relationship Specialty Start Date End Date Faith Mason MD [address] [place] [address] PCP - General Family Medicine 04/12/19 Linda Peralta Fitness/Wellness DirectorSanitation Tank Washer 06/08/24 documented as of this encounter
--- OUTSIDE RECORDS SUMMARY | 2025-04-18 16:56 | XMS_ITS | Encounter Summary ---
Author Organization [employer] Address 75 [facility] 7t [place] [address] Care Team Providers Care Canadian Bacon Tier Name Role Phone Faith Mason MD Primary Care Provide r Reason for Visit * Reason Onset Date Comments FYI 08/13/2023 Encounter Details Date Type Department Care Team ([facility] st Contact Info) Description 08/13/2023 Telephone [facility] MEDICINE [address] [place], [place] [phone] Faith Mason MD [address] [place], [place] [phone] FYI Social History Tobacco Use Types Packs/Day [...] of today. Any questions contact Tameka at [phone] documented in this encounter Plan of Treatment Upcoming Encounters Date Type Department Care Team (Late st Contact Info) Description 05/11/2025 10:45 AM EST Office Visit [facility] MEDICINE [address] [place] [phone] Faith Mason MD [address] [place] [address] 06/08/2025 2:15 PM EST Office Visit [facility] ADULT DENTAL [address] [place] [address] Shiva, Karen [address] [place] [address] documented as of this encounter Visit Diagnoses Not on filedocumented in this encounter Additional Health Concerns Assessment Noted Time PHQ-9 Depression Total Score: 14 023 2:21 PM EDT documented as of this encounter Care Teams Canadian Bacon Tier Relationship Specialty Start Date End Date Faith Mason MD [address] [place] [address] PCP - General Family Medicine 04/12/19 Linda Peralta Head Of HousekeepingMachine Brush Maker 06/08/24 documented as of this encounter
--- OUTSIDE RECORDS SUMMARY | 2025-04-18 16:56 | XMS_ITS | Encounter Summary ---
Author Organization [employer] Address 75 [facility] 7t [place] [address] Care Team Providers Care Webmethods Consultant Name Role Phone Faith Mason MD Primary Care Provide r Reason for Visit * Reason Comments Med Refill Encounter Details Date Type Department Care Team ([facility] st Contact Info) Description 08/11/2023 Refill [facility] MEDICINE [address] [place], [place] [phone] Faith Mason MD [address] [place], [place] [phone] Social History Tobacco Use Types Packs/Day Years [...] 05/11/2025 10:45 AM EST Office Visit [facility] MEDICINE [address] [place] [address] Faith Mason MD [address] [place] [address] 06/08/2025 2:15 PM EST Office Visit [facility] ADULT DENTAL [address] [place] [address] Shiva, Karen [address] [place] [address] documented as of this encounter Visit Diagnoses Not on filedocumented in this encounter Additional Health Concerns Assessment Noted Time PHQ-9 Depression Total Score: 14 023 2:21 PM EDT documented as of this encounter Care Teams Webmethods Consultant Relationship Specialty Start Date End Date Faith Mason MD [address] [place] [address] PCP - General Family Medicine 04/12/19 Linda Peralta Clinical Quality ManagerConsulting Services Project Manager 06/08/24 documented as of this encounter
--- OUTSIDE RECORDS SUMMARY | 2025-04-18 16:56 | XMS_ITS | Encounter Summary ---
Author Organization [employer] Address 75 [facility] 7t [place] [address] Care Team Providers Care Transcript Clerk Name Role Phone Faith Mason MD Primary Care Provide r Encounter Details Date Type Department Care Team (Late st Contact Info) Description 07/17/2023 Telephone [facility] MEDICINE [address] [place], [place] [phone] Faith Mason MD [address] [place], [place] [phone] Social History Tobacco Use Types Packs/Day Years [...] the past 12 months, has t he [employer], oil or water [employer] threatened to shut off services in your [...] 05/11/2025 10:45 AM EST Office Visit [facility] MEDICINE [address] [place] [address] Faith Mason MD [address] [place] [address] 06/08/2025 2:15 PM EST Office Visit [facility] ADULT DENTAL [address] [place] [address] Shiva, Karen [address] [place] [address] documented as of this encounter Visit Diagnoses Not on filedocumented in this encounter Additional Health Concerns Assessment Noted Time PHQ-9 Depression Total Score: 14 023 2:21 PM EDT documented as of this encounter Care Teams Transcript Clerk Relationship Specialty Start Date End Date Faith Mason MD [address] [place] [address] PCP - General Family Medicine 04/12/19 Linda Peralta Salesman/OwnerReligious Activities Director 06/08/24 documented as of this encounter
--- OUTSIDE RECORDS SUMMARY | 2025-04-18 16:56 | XMS_ITS | Encounter Summary ---
Author Organization [employer] Address 75 [facility] 7t [place] [address] Care Team Providers Care Barn And Property Manager Name Role Phone Faith Mason MD Primary Care Provide r Reason for Visit * Reason Comments Med Refill Encounter Details Date Type Department Care Team ([facility] st Contact Info) Description 09/25/2024 Refill [facility] MEDICINE [address] [place], [place] [phone] Faith Mason MD [address] [place], [place] [phone] Essential hypertension Social History Tobacco Use Types [...] Description 05/11/2025 10:45 AM EST Office Visit [facility] MEDICINE [address] [place] [address] Faith Mason MD [address] [place] [address] 06/08/2025 2:15 PM EST Office Visit [facility] ADULT DENTAL [address] [place] [address] Jacob Shannonaris [address] [place] [address] documented as of this encounter Visit Diagnoses Diagnosis Essential hypertension Unspecified essential hypertension documented in this encounter Additional Health Concerns Assessment Noted Time PHQ-9 Depression Total Score: 6 11/24/19 24 2:35 PM EDT documented as of this encounter Care Teams Barn And Property Manager Relationship Specialty Start Date End Date Faith Mason MD [address] [place] [phone] PCP - General Family Medicine 04/12/19 Linda Peralta Strategic Marketing ManagerMagician/Illusionist 06/08/24 documented as of this encounter
--- OUTSIDE RECORDS SUMMARY | 2025-04-18 16:56 | XMS_ITS | Encounter Summary ---
Author Organization [employer] Address [address] [facility] 7t [place] [address] Care Team Providers Care Music Internship Name Role Phone Faith Mason MD Primary Care Provide r Reason for Visit * Reason Comments Med Refill Encounter Details Date Type Department Care Team ([facility] st Contact Info) Description 04/05/2024 Refill [facility] CHC MED & PEDS [address] [place], [place] [phone] Faith Mason MD [address] [place], [place] [phone] Atrial flutter, unspecified type (CMS/HCC); Diabetic polyneuropathy [...] the past 12 months, has t he [employer], gas, oil or water Process Data Control threatened to shut off services in your [...] 10:45 AM EST Office Visit [facility] MEDICINE [address] [place] [phone] Faith Mason MD [address] [place] [address] 06/08/2025 2:15 PM EST Office Visit [facility] ADULT DENTAL [address] [place] [address] Karen Shannon [address] [place] [address] documented as of this encounter Visit Diagnoses Diagnosis Atrial flutter, unspecified type (CMS/HCC) (HCC) Diabetic polyneuropathy associated with type 2 diabetes mellitus (HCC) documented in this encounter Additional Health Concerns Assessment Noted Time PHQ-9 Depression Total Score: 6 11/24/19 24 2:35 PM EDT documented as of this encounter Care Teams Music Internship Relationship Specialty Start Date End Date Faith Mason MD [address] [place] [address] PCP - General Family Medicine 04/12/19 Linda Peralta Digital Imaging SpecialistLoading Shovel Oiler 06/08/24 documented as of this encounter
--- OUTSIDE RECORDS SUMMARY | 2025-04-18 16:56 | XMS_ITS | Clinical Summary ---
Author Organization [employer] Address [address] [place] [address] 7t [place] [address] Care Team Providers Care President And Chief Operating Officer Name Role Phone Faith Mason MD [...] 024 Active Blood Glucose Monitoring Suppl (FreeStyle [place] Lite) w/Device kitIndications: Type 2 diabetes mellitus with hyperglycemia, with long-term current use of insulin (HCC) Use to test blood sugar 3 times daily 1 kit Active TRUEplus Lancets 33G miscIndications :Type 2 diabetes mellitus with hyperglycemia, with long-term current use of insulin ([facility]) TEST BLOOD SUGAR THREE TIMES DAILY 100 [...] with long-term current use of insulin ([facility]) INJECT 28 UNITS SUBCUTANEOUSLY EVERY DAY 6 mL 1 Active guaiFENesin 200 MG/10ML liquidIndicatio ns:Acute cough Take 10 mL by mouth every 6 (six) hours if needed (take for cough if needed). 236 mL Active brimonidine (AlphaGAN) 0.2 % ophthalmic solution Administer 1 drop into the left eye 3 times daily. Active Continuous Glucose Public Speaking Instructor (FreeStyle Tika 3 [place]) device Use as directed Active Continuous Glucose [...] 01/19/2025 Acute hyperkalemia 01/19/2025 AF (atrial fibrillation) ([facility]) 01/19/2025 Anemia of chronic kidney failure 01/19/2025 [...] 01/19/2025 AMARJIT on CPAP 01/19/2025 Pulmonary HTN ([facility]) 01/19/2025 Obesity due to excess calories 01/19/2025 Severe obesity (BMI 35.0-39.9) with comorbidity ([facility]) 01/19/2025 Unstable angina ([facility]) 01/19/2025 Chest pain 01/19/2025 CAD (coronary artery disease) 01/19/2025 Chronic kidney disease with end stage renal failure on dialysis ([facility]) 01/19/2025 Acid reflux 01/19/2025 Overview (01/19/2025): EGD-r/o [...] (05/21/2022 9:19 AM EST): -Currently followed by [facility] - last available consult note Jan 2022 w/ Dr. Miller -Continues with current med regimen: -Januvia 25mg PO daily -Tuojeo insulin 28 units subcutaneous daily -Lispro AC per SS -Dexcom ordered and managed through [facility] -Strongly encourage pt to schedule follow up appt with specialists. ED precautions reviewed. -Follow up in 1 month, sooner as needed. Abnormal gait 05/15/2022 End stage renal failure on dialysis ([facility]) Assessment & Plan (11/25/2023 5:22 PM EDT): [...] remission 09/02/2018 Coronary artery disease invo lving rincon coronary artery of rincon heart with unstable angina pectoris 06/03/2018 Calculus [...] Type Department Care Team Description 03/26/[address] [facility] CHC MED & PEDS [address] [place] [address] Faith Mason MD Primary insomnia; Essential hypertension 03/21/2025 Orders Only GENERIC EXTERNAL DATA DEPARTMENT Provider, Generic External Data 03/14/[address] [facility] MEDICINE [address] [place] [address] Faith Mason MD Medication Question 02/24/[address] [facility] MEDICINE [address] [place], [place] [phone] Faith Mason MD Other constipation; Seborrheic dermatitis 02/23/2025 Orders Only GENERIC EXTERNAL DATA DEPARTMENT Provider, Generic External Data 02/23/[address] [facility] MEDICINE [address] [place] [address] Faith Mason MD Atrial flutter, unspecified type (CMS/HCC) (HCC); Right arm pain; Numbness and tingling of right arm 02/16/[address] [facility] MEDICINE [address] [place] [address] Faith Mason MD Dec recall 01/26/2025 Results Follow-Up [facility] MEDICINE [address] [place] [phone] Faith Mason MD POCT Glucose, POCT HGB A1C, Bacterial Vaginosis, Chlamydia/N. Gonorrhoeae RNA, TMA, Vaginal 01/25/2025 1:00 PM EDT Office Visit [facility] ADULT DENTAL [address] [place] [address] [place] D[facility] Bleeding post tooth extraction (Primary Dx) 01/24/2025 1:00 PM EDT Office Visit [address] [address] Faith Mason MD Mouth bleeding (Primary Dx); Vaginal discharge; Pelvic pain; Chronic frontal sinusitis; Great toe pain, right; Diabetic polyneuropathy associated with type 2 diabetes mellitus ([facility]/HCC); Acute otitis externa, unspecified laterality, unspecified type; Seborrheic dermatitis; Postmenopausal bleeding 01/24/2025 Travel 01/19/2025 1:30 PM EDT Office Visit [facility] ADULT DENTAL [address] [place] [address] [place] [facility] Severe dental caries (Primary Dx); Pain, dental 01/17/[address] [address] Faith Masno MD 01/16/2025 Patient Outreach [address] [address] Faith Mason MD Pre-visit Planning (SDOH screening negative and tobacco screening negative) from Last 3 Months Immunizations Immunization Administration [...] Description 05/11/2025 10:45 AM EST Office Visit [facility] MEDICINE [address] [place] [address] Faith Mason MD [address] [place] [address] 06/08/2025 2:15 PM EST Office Visit [facility] ADULT DENTAL [address] [place] [address] Shiva Karen [address] [place] [address] Health Maintenance Due Date Last Done Comments CT Colonography 1965 Colonoscopy 1966 Dental Prophylaxis 1966 FIT 1966 Sigmoidoscopy 1966 Disability Screening 1966 Diabetes: Foot Exam 1976 Eye Exam 1976 Alcohol/Substance Use Screening 1978 DTaP/Tdap/Td Vaccines (1 - Tdap) 1985 RSV Patients and Patients Aged 60 years or older (1 - Risk 50-74 years 1-dose series) 2016 Hepatitis B Vaccines (2 of 3 - [...] Cervical Cancer Screening 08/23/2029 HPV/Cotest 08/23/2029 08/23/2024, 052 05/2023, 07/25/2020 Pap Smear 08/23/2029 08/23/2024, 052 05/2023, 07/25/2020 HIV Screening Completed 01/31/2025, 01/26/2024 Hepatitis C [...] sinusitis DECALCIFICATION Routine 03/21/2025 11:18 AM EDT CULTURE, FUNGAL (SKIN,NAIL,HAIR) Routine 03/21/2025 10:29 AM EDT GLUCOSE, WHOLE BLOOD Routine 02/23/2025 [...] polyneuropathy associated with type 2 diabetes mellitus ([facility]/HCC) POCT GLUCOSE Routine 01/24/2025 1:51 PM EDT Diabetic polyneuropathy associated with type 2 diabetes mellitus ([facility]/HCC) CASE PRESENTATION, DETAILED AND EXTENSIVE [...] AM EDT 03/22/2025 7:04 AM EDT Narrative [facility] - 03/24/2025 10:45 AM EDT ----- ------- Name: Sarah Dixon Age/Sex: 60/F : 1965 Unit#: [id number] Attend Dr: Brittny Coyne DPM Re03/21/25 Status: DEP REF Location: [facility] Disch: ----- ------- SPEC : [id number] RECD: 03/22/25 STATUS: FELA UMAÑA NUM: [id number] NADJA: 03/21/[address] [facility] [address]: Brittny Coyne DPM ENTERED: 03/22/25 SP TYPE: Surgical OTHR DR: Faith Mason MD ORDERED: Decal, Gross Micro L3, Specials Gr. 1, PASF Diagnosis [...] sodium hydroxide per order of Dr. Mcmahon. (DT) Special stains ordered and performed: PASF on A. IHC S/NG Disclaimer NOTE: Unless otherwise stated, all tissue is formalin-fixed and paraffin-embedded. Some or all of the immunohistochemical tests reported herein may have been developed and their performance characteristics determined by [facility]. They have not been cleared or approved by the U.S. Food and Drug Administration (FDA). However, the FDA has determined that such clearance or approval is not necessary. This laboratory is certified under the Clinical Laboratory Improvement Amendments of 1988 (CLIA) as qualified to perform high complexity clinical laboratory testing. Copies To: Faith Mason MD [address] [address] CONTINUED ON NEXT PAGE ----- ------- Name: Sarah Dixon Age/Sex: 60/F : 1965 Unit#: [id number] Attend Dr: Brittny Coyne DPM Re03/21/25 Status: DEP REF Location: HO.LNP Disch: ----- ------- SPEC : [id number] RECD: 03/22/25 STATUS: FELA UMAÑA NUM: [id number] NADJA: 03/21/[address] [facility] [address]: Brittny Coyne DP ENTERED: 03/22/25 SP TYPE: Surgical OTHR DR: Faith Mason MD ORDERED: [place] New L3, Specials Gr. 1, PASF Copies To: (Continued) Brittny Coyne DPM [address] [address] [email or web address] ----- ------- Signed (signature on file) Che Mayer MD 03/24/25 1045 ----- ------- END OF REPORT Generic External Data Provider HISTORICAL/NON OR DERABLE LABS Final Result Performing Organization Address [facility] Co de Phone Number [facility] [address] [place] [phone] * (ABNORMAL) Glucose, Whole Blood (02/23/2025 10:49 AM EDT) [facility] Glucose, Whole Blood 289(H) 60 - 115 mg/dL [facility] Comment:METER #: [id number] 0Testing performed in the Endocrinology Department [address] , [address], [place]. 02/23/2025 10:4 9 AM EDT 02/23/2025 10:55 AM EDT Generic External Data Provider LAB BLOOD ORDERAB LES Final Result Performing Organization Address [facility] de Phone Number [facility] [address] [place] [address] [phone] * Hepatitis A,B,C Profile (01/31/2025 2:07 PM EDT) [facility] Hepatitis A IgM Nonreactive Nonreactive [facility] Comment:IgM antibodies to CARTWRIGHT V not detected; does not exclude earlyacute or recovered HAV infection. ~Hepatitis B Surface Antibody REACTIVE Nonreactive [facility] Comment:REACTIVE: > 11.99 mI U/mL Hepatitis B Core Antibody Nonreactive Nonreactive [facility] Hepatitis C Antibody Nonreactive Nonreactive [facility] Comment:Antibodies to HCV no t detected; does not exclude early acuteHCV infection. Hepatitis B Surface Ag Negative Negative [facility] Blood Venous blood specimen / Unknown 01/31/2025 2:07 PM EDT 01/31/2025 4:09 PM EDT Faith No MD LAB BLOOD ORDERABLES Final Result Performing Organization Address [facility] Co de Phone Number [facility] [address] [place] [phone] * RPR (Monitor) with Reflex to??Titer (01/31/2025 2:07 PM EDT) RPR (Monitor) w/Refl Titer NON-REACTI VE NON-REACT JOHNNY [facility] Comment:THIS TEST WAS PERFOR MED AT:[facility] [place] [phone] ALICEA MD Rapid Plasma Reagin Ab Titer TNP [facility] Blood Venous blood specimen / Unknown 01/31/2025 2:07 PM EDT 01/31/2025 4:09 PM EDT Faith No MD LAB BLOOD ORDERABLES Final Result Performing Organization Address [facility] de Phone Number [facility] [address] [place] [phone] * HIV-1/2 Antigen and Antibodies, Fourth Generation, with Reflexes (01/31/2025 2:07 PM EDT) HIV AB/AG Nonreactive Nonreactive [facility] Comment:HIV-1 p24 Ag and/or HIV-1/HIV-2 Ab not detected.A test result that is nonreactive does not exclude thepossibility of exposure to or infection with HIV-1 and/orHIV-2. Nonreactive results in this assay for individualswith prior exposure to HIV-1 and/or HIV-2 may be due toantigen and antibody levels that are below the limit ofdetection of this assay.The Ringionievolso HIV Ag/Ab Combo assay result andsupplemental assay results should be interpreted inconjunction with the patient's clinical presentation,history and other laboratory results. If the results areinconsistent with clinical evidence, additional testing issuggested to confirm the result. Blood Venous blood specimen / Unknown 01/31/2025 2:07 PM EDT 01/31/2025 4:09 PM EDT us Faith No MD LAB BLOOD ORDERABLES Final Result [facility] [address] [place] [phone] * Chlamydia/N. Gonorrhoeae RNA, TMA, Vaginal (01/24/2025 2:02 PM EDT) Pathologist [facility] CT PCR NOT DETECTED Not Detect. [facility] Comment:A not detected test result [...] psychologicalconsequences. NG PCR NOT DETECTED Not Detect. [facility] Comment:A not detected test result [...] NERAL ORDERABLES Final Result Performing Organization Address [facility]/ZIP Co de Phone Number [facility] [address] [place] [phone] * (ABNORMAL) Bacterial Vaginosis (01/24/2025 2:01 PM EDT) TRICHOMONAS VAGINALIS DETECTION BY PCR NOT DETECTED Not Detect [facility] BACTERIAL VAGINOSIS DETECTION BY PCR NEGATIVE Negative [facility] Comment:The BV organism targ ets [...] GROUP DETECTION BY PCR DETECTED(A) Not Detect [facility] Kym glab krusei PCR NOT DETECTED Not Detect [facility] Swab Vaginal structure / Unknown 01/24/2025 2:01 PM EDT 01/24/2025 5:56 PM EDT us Faith No MD LAB MICROBIOLOGY - GE NERAL ORDERABLES Final Result Performing Organization Address [facility]/ZIP Co de Phone Number [facility] [address] [place] [phone] * (ABNORMAL) POCT HGB A1C (01/24/2025 1:52 PM EDT) Hemoglobin A1C 9.7(A) 4.0 - 5.7 % QC Media Lot # [id number] Lot# Expiration Date [id number] Blood 01/24/2025 1:52 PM EDT Faith oN MD POINT OF CARE TEST EN TER/EDIT ORDERABLES Final Result * (ABNORMAL) POCT Glucose (01/24/2025 1:51 PM EDT) Pathologist [facility] Glucose Blood, POC 351(A) 60 - 200 mg/dL QC Media Lot # [id number] Lot# Expiration Date 726 Blood Capillary blood specimen / Unknown 01/24/2025 1:51 PM EDT Faith No MD POINT OF CARE TEST EN TER/EDIT ORDERABLES Final Result * HPV DNA, Low/High Risk (08/23/2024 12:00 AM EDT) Pathologist [facility] HPV High Risk Negative Negative [facility] HPV Genotype 16 Negative Negative [facility] HPV Genotype 18 Negative Negative [facility] Comment:HPV testing performe d at [facility] (CLIA#[id number]), [address] [place] [address].Testing for HPV was performed using the Mike [...] No MD LAB BLOOD ORDERABLES Final Result [facility] [address] [place] [phone] * Pap Smear (08/23/2024 12:00 AM EDT) Swab 08/23/2024 08/24/2024 6:0 0 AM EDT Narrative [facility] - 08/29/2024 1:23 PM EDT ----- ------- Name: Sarah Dixon Age/Sex: 59/F : 1965 Unit#: [id number] Attend Dr: Faith Mason MD Re08/23/24 Status: DEP REF Location: [facility].HHCLNP Disch: ----- ------- SPEC : [id number] RECD: 08/24/24 STATUS: FELA UMAÑA NUM: [id number] NADJA: 08/23/24-[address]: Faith Mason MD [...] MD LAB CYTOLOGY ORDERABL ES Final Result [facility] [address] [place] [phone] * BI Mammogram Screening Tomosynthesis Bilateral (07/18/2024 11:24 AM EST) Anatomical Region Laterality Modality Breast Bilateral Mammography 07/18/2024 11:2 4 AM EST Narrative 07/23/2024 12:27 PM EST [facility] [address] [place] [address] Mammography Report Signed Patient: Sarah Dixon MR#: [id number] : 1965 Acct:[id number] Age/Sex: 59 / F ADM Date: 07/18/24 Loc: JG Attending Dr: Faith No MD Ordering Physician: Faith Mason MD Results: 1Negative Date of Service: 07/18/24 Follow Up: 1 Year From Orig inal Mammogram Procedure(s): MM tomosynthesis screening BI Accession Number(s): [id number] cc: Faith Mason MD EXAMINATION: MM SCREENING [...] by: Alicia Archuleta DO 07/23/2024 12:23 PM [facility] Dictated By: Alicia Archuleta DO Signed By: <Electronically signed by Alicia Archuleta DO in OV> 07/23/24 1223 DD/ 1124 TD/TT: 07/18/24 1124 Sandblaster Supervisor: Procedure Note Donotuseinterpreter, Image - 07/23/2024 [facility] [address] [place] [address] Dr. Oneill, RACHEL [address] Mammography Report Signed Patient: Vidal Dixon#: [id number] : 1965Acct:[id number] Age/Sex: 59 / FADM Date: 07/18/24 Loc: HO.MAMMO Attending Dr: Faith No MD Ordering Physician: Faith Mason MDResults: 1Negative Date of Service: 07/18/24Follow Up: 1 Year From Orig inal Mammogram Procedure(s): MM tomosynthesis screening BI Accession Number(s): [id number] cc: Faith Mason MD EXAMINATION: MM SCREENING [...] by: Alicia Archuleta DO 07/23/2024 12:23 PM [facility] Dictated By: Alicia Archuleta DO Signed By: <Electronically signed by Alicia Archuleta DO in OV> 07/23/24 1223 DD/ 1124 TD/TT: 07/18/24 1124 Sandblaster Supervisor: Faith No MD IMG BI PROCEDURES Yoshi telma Result - Final * (ABNORMAL) Lipid Panel with Reflex to Direct LDL (12/01/2023 1:06 PM EDT) Triglycerides 81 <150 mg/dL [facility] Comment:Desirable Triglyceri de: less than 150 mg/dLBorderline High Triglyceride 150-199 mg/dLHigh Triglyceride: 200-499 mg/dLVery High Triglyceride: greater than or equal to 5OO mg/dL Cholesterol 77 <200 mg/dL [facility] Comment:Desirable Cholestero l: less than 200 mg/dLBorderline High Cholesterol: 200-239 mg/dLHigh Cholesterol: greater than 239 mg/dL LDL Cholesterol Calculated 30 <100 mg/dL [facility] Comment:Desirable LDL: less than 100 mg/dLNear Optimal/Above Optimal LDL: 110- 129 mg/dLBorderline High LDL: 130-159 mg/dLHigh LDL: 160-189 mg/dLVery High LDL: greater than or equal to 190 mg/dL HDL Cholesterol 31(L) >40 mg/dL [facility] Comment:Desirable HDL: great er than 40 mg/dL Note: This HDL assay may give artificially low results in patients with liver disease. Blood 12/01/2023 1:06 PM EDT 12/01/2023 1:11 PM EDT us Faith No MD LAB BLOOD ORDERABLES Final Result [facility] [address] [place] [phone] * Cologuard?? colon cancer screening (09/17/2023 12:00 PM EDT) Cologuard Result Negative Negative 09/25/19 10:09 AM EDT [employer] [facility] (CLIA #:[id number]) Comment: NEGATIVE TEST RESULT. A negative Cologuard [...] (Kacey Jalloh al, N Engl J Med 2014;370(14):4715-3581) The normal value (reference range) for this assay is negative. COLOGUARD RE-SCREENING RECOMMENDATION: Periodic colorectal cancer screening is an important part of preventive healthcare for asymptomatic individuals at average risk for colorectal cancer. Following a negative Cologuard result, the [place] Cancer Society and U.S. Multi-Society Task Force screening guidelines recommend a Cologuard re-screening interval of 3 years. References: [place] [employer] Guideline for Colorectal Cancer Screening: https://www.cancer.org/cancer/jyafe-kdzwuw-xwiqda/zneliewse-eizfqyuze-sgkahet/ac s-rec ommendations.html.; Maxi MACIAS, Robinson REESE, Barry JOINER, Colorectal Cancer Screening: Recommendations for Physicians and Patients from the U.S. Multi-Society Task Force on Colorectal Cancer Screening , Am J Gastroenterology 2017; 112:3496-9313. TEST DESCRIPTION: Composite algorithmic analysis of stool [...] (Kacey Jalloh al, N Engl J Med 2014;370(14):7131-6462.) Cologuard may produce a false negative or false positive result (no colorectal cancer or precancerous polyp present at colonoscopy follow up). A negative Cologuard test result does not guarantee the absence of CRC or advanced adenoma (pre-cancer). The current Cologuard screening interval is every 3 years. ([place] [employer] Society and U.S. Multi-Society Task Force). Cologuard performance data in a 10,000 patient pivotal study using colonoscopy as the reference method can be accessed at the following location: www.exactlabs.com/results. Additional description of the Cologuard test process, warnings and precautions can be found at www.cologuard.com. Stool specimen (specimen) 09/17/2023 12:00 PM EDT 09/18/2023 10:51 AM EDT us Faith No MD LAB MOLECULAR DIAGNOS TICS ORDERABLES Final Result [facility] (CLIA #:[id number]) [address] [place] [address], * MICROALBUMIN, RANDOM (07/23/2020 9:00 AM EST) Creatinine Urine 140.39 mg/dL [facility] Microalbum/Creati nine Ratio Ur 419.5 ug/mg cr [facility] Comment: Albumin/Creatinine Ratio Reference Ranges: Normal: < 30 ug/mg creatinine Microalbuminuria: 30 - 300 ug/mg creatinine Clinical Albuminuria: > 300 ug/mg creatinine Microalbumin Urine 589.0 mg/L [facility] 07/23/2020 9:00 AM EST us Historical Provider HISTORICAL/NON ORDERABLE LABS Final Result Performing Organization Address City/Va Hospital/ZIP Co de Phone Number [facility] [address] from Last 3 Months or Most Recently Relevant to Health Maintenance Insurance [facility] C3 [place] AD[place] Care Teams President And Chief Operating Officer Relationship Specialty Start Date End Date Faith Mason MD [address] [place] [phone] PCP - General Family Medicine 04/12/19 Linda Peralta Real Estate Job TitlesMedical Equipment Sales 06/08/24
--- OUTSIDE RECORDS SUMMARY | 2025-04-18 16:56 | XMS_ITS | Encounter Summary ---
Author Organization [employer] Address [address] [facility] 7t [place] [address] Care Team Providers Care Senior Backup Administrator Name Role Phone Faith Mason MD Primary Care Provide r Encounter Details Date Type Department Care Team ([facility] st Contact Info) Description 08/05/2024 Telephone [facility] MEDICINE [address] [place], [place] [phone] Faith Mason MD [address] [place], [place] [phone] Social History Tobacco Use Types Packs/Day Years [...] Description 05/11/2025 10:45 AM EST Office Visit [facility] MEDICINE [address] [place] [phone] Faith Mason MD [address] [place] [phone] 06/08/2025 2:15 PM EST Office Visit [facility] ADULT DENTAL [address] [place] [phone] Shiva, Karen [address] [place] [address] documented as of this encounter Visit Diagnoses Not on filedocumented in this encounter Additional Health Concerns Assessment Noted Time PHQ-9 Depression Total Score: 6 11/24/19 24 2:35 PM EDT documented as of this encounter Care Teams Senior Backup Administrator Relationship Specialty Start Date End Date Faith Mason MD [address] [place] [phone] PCP - General Family Medicine 04/12/19 Linda Peralta First ResponderLogistics Project Manager 06/08/24 documented as of this encounter
--- OUTSIDE RECORDS SUMMARY | 2025-04-18 16:56 | XMS_ITS | Encounter Summary ---
Author Organization [employer] Address [address] [facility] 7t [place] [address] Care Team Providers Care Early Childhood Special Educator Name Role Phone Faith Mason MD Primary Care Provide r Reason for Visit * Reason Comments Med Refill Encounter Details Date Type Department Care Team ([facility] st Contact Info) Description 11/18/2024 Refill [facility] MEDICINE [address] [place], [place] [phone] Faith Mason MD [address] [place], [place] [phone] Right arm pain; Numbness and tingling of [...] Description 05/11/2025 10:45 AM EST Office Visit [facility] MED[facility]INE [address] [place] [phone] Faith Mason MD [address] [place] [phone] 06/08/2025 2:15 PM EST Office Visit [facility] ADULT DENTAL [address] [place] [address] Shiva, Karen [address] [place] [address] documented as of this encounter Visit Diagnoses Diagnosis Right arm pain Pain in soft tissues of limb Numbness and tingling of right arm documented in this encounter Additional Health Concerns Assessment Noted Time PHQ-9 Depression Total Score: 6 11/24/19 24 2:35 PM EDT documented as of this encounter Care Teams Early Childhood Special Educator Relationship Specialty Start Date End Date Faith Mason MD [address] [place] [phone] PCP - General Family Medicine 04/12/19 Linda Peralta Stadium ManagerTeacher Of Family And Consumer Science 06/08/24 documented as of this encounter
--- OUTSIDE RECORDS SUMMARY | 2025-04-18 16:56 | XMS_ITS | Encounter Summary ---
Author Organization [employer] Address [address] [facility] 7t [place] [address] Care Team Providers Care Hobbing Press Operator Name Role Phone Faith Mason MD Primary Care Provide r Encounter Details Date Type Department Care Team ([facility] st Contact Info) Description 08/05/2024 Telephone [facility] MEDICINE [address] [place], [place] [phone] Faith Mason MD [address] [place], [place] [phone] Social History Tobacco Use Types Packs/Day Years [...] Description 05/11/2025 10:45 AM EST Office Visit [facility] MED[facility]INE [address] [place] [phone] Faith Mason MD [address] [place] [phone] 06/08/2025 2:15 PM EST Office Visit [facility] ADULT DENTAL [address] [place] [phone] Shiva, Karen [address] [place] [address] documented as of this encounter Visit Diagnoses Not on filedocumented in this encounter Additional Health Concerns Assessment Noted Time PHQ-9 Depression Total Score: 6 11/24/19 24 2:35 PM EDT documented as of this encounter Care Teams Hobbing Press Operator Relationship Specialty Start Date End Date Faith Mason MD [address] [place] [phone] PCP - General Family Medicine 04/12/19 Linda Peralta Aquatic BiologistExchange Administrator 06/08/24 documented as of this encounter
--- OUTSIDE RECORDS SUMMARY | 2025-04-18 16:57 | XMS_ITS | Encounter Summary ---
Author Organization [employer] Address [address] [facility] 7t [place] [address] Care Team Providers Care Marketing Project Coordinator Name Role Phone Faith Mason MD Primary Care Provide r Reason for Visit * Reason Comments Med Refill Encounter Details Date Type Department Care Team ([facility] st Contact Info) Description 06/24/2023 Refill [facility] MEDICINE [address] [place], [place] [phone] Faith Mason MD [address] [place], [place] [phone] Social History Tobacco Use Types Packs/Day Years [...] Description 05/11/2025 10:45 AM EST Office Visit [facility] MEDICINE [address] [place] [address] Faith Mason MD [address] [place] [address] 06/08/2025 2:15 PM EST Office Visit [facility] ADULT DENTAL [address] [place] [address] Shiva, Karen [address] [place] [address] documented as of this encounter Visit Diagnoses Not on filedocumented in this encounter Additional Health Concerns Assessment Noted Time PHQ-9 Depression Total Score: 14 023 2:21 PM EDT documented as of this encounter Care Teams Marketing Project Coordinator Relationship Specialty Start Date End Date Faith Mason MD [address] [place] [phone] PCP - General Family Medicine 04/12/19 Linda Peralta Online Merchandising CoordinatorTelecommunications Project Manager 06/08/24 documented as of this encounter
--- OUTSIDE RECORDS SUMMARY | 2025-04-18 16:57 | XMS_ITS | Clinical Summary ---
Author Organization [facility] Address [address] [address] Phone Care Team Providers Care Souvenir And Novelty Maker Name Role Phone Ines Zamora MD Primary [...] ACO C3 ACO C3 ACO C[address] [place] [address] [address] [place] [address] C3 [facility] C3 ACO Care Teams Souvenir And Novelty Maker Relationship Specialty Start Date End Date Ines Zamora MD [address] [place] [address] [address] [place] [phone] PCP - General Internal Medicine 02/23/19 Additional Source Comments The information contained in this document represents components of the legal health record. It is not the complete legal health record.[facility]
--- OUTSIDE RECORDS SUMMARY | 2025-04-18 16:57 | XMS_ITS | Encounter Summary ---
Author Organization [employer] Address [address] [place] [address] 7t [place] [address] Care Team Providers Care Public Relations Writer Name Role Phone Faith Mason MD Primary Care Provide r Reason for Visit * Reason Comments Med Change Request Encounter Details Date Type Department Care Team ([facility] Contact Info) Description 11/28/2022 Refill [facility] MEDICINE [address] [place], [place] [phone] Faith Mason MD [address] [place] [address] Type 2 diabetes mellitus with hyperglycemia, with long-term current use of insulin ([facility]) Social History Tobacco Use [...] Description 05/11/2025 10:45 AM EST Office Visit [facility] MEDICINE [address] [place] [address] Faith Mason MD [address] [place] [address] 06/08/2025 2:15 PM EST Office Visit [facility] ADULT DENTAL [address] [place], [place] [phone] Jacob Shannonaris [address] [place] [address] documented as of this encounter Visit Diagnoses Diagnosis Type 2 diabetes mellitus with hyperglycemia, with long-term current use of insulin (HCC) documented in this encounter Additional Health Concerns Assessment Noted Time PHQ-9 Depression Total Score: 14 023 2:21 PM EDT documented as of this encounter Care Teams Public Relations Writer Relationship Specialty Start Date End Date Faith Mason MD [address] [place] [phone] PCP - General Family Medicine 04/12/19 Linda Peralta Erp EngineerResidential Subcontractor 06/08/24 documented as of this encounter
--- OUTSIDE RECORDS SUMMARY | 2025-04-18 16:57 | XMS_ITS | Encounter Summary ---
Author Organization [employer] Address [address] [facility] 7t [place] [address] Care Team Providers Care Client Success Specialist Name Role Phone Faith Mason MD Primary Care Provide r Reason for Visit * Reason Onset Date Comments Durable Medical Equipment 11/05/2023 Encounter Details Date Type Department Care Team (Late st Contact Info) Description 11/05/2023 Telephone [facility] MEDICINE [address] [place], [place] [phone] Faith Mason MD [address] [place], [place] [phone] Durable Medical Equipment Social History Tobacco Use [...] 12:47 PM EDT Silver Mckeon at [facility] calling to request the following DME. Shower Chair Shower grab bars Wheel chair Rolator walker with seat documented in this encounter Plan of Treatment Upcoming Encounters Date Type Department Care Team (Late st Contact Info) Description 05/11/2025 10:45 AM EST Office Visit [facility] MEDICINE [address] [place] [phone] Faith Mason MD [address] [place] [address] 06/08/2025 2:15 PM EST Office Visit [facility] ADULT DENTAL [address] [place] [address] Shiva, Karen [address] [place] [address] documented as of this encounter Visit Diagnoses Not on filedocumented in this encounter Additional Health Concerns Assessment Noted Time PHQ-9 Depression Total Score: 14 023 2:21 PM EDT documented as of this encounter Care Teams Client Success Specialist Relationship Specialty Start Date End Date Faith Mason MD [address] [place] [address] PCP - General Family Medicine 04/12/19 Linda Peralta Certified Neurodiagnostic TechnologistWasher Blanket 06/08/24 documented as of this encounter
--- OUTSIDE RECORDS SUMMARY | 2025-04-18 16:57 | XMS_ITS | Clinical Summary ---
Author Organization [facility] Address [address] [place] [address] Phone Care Team Providers Care Utility Worker Name Role Phone Ines Zamora MD Primary Care Provider + [phone] Medications lisinopril 10 MG tabletIndicati ons:Stage 3 [...] AT BEDTIME (for nerve pain) 120 capsule 3 Active hydrALAZINE 50 MG tablet TAKE [...] Encounters Date Type Department Care Team Description 04/03/2025 Treatment [facility] [address] [phone] Jeffy Tineo MD End stage renal disease; Dependence on renal dialysis 03/27/2025 Treatment [facility] [address] [phone] Jeffy Tineo MD End stage renal disease; Dependence on renal dialysis 03/20/2025 Treatment [facility] [address] [phone] Jeffy Tineo MD End stage renal disease; Dependence on renal dialysis 03/19/2025 Refill [facility] [address] [phone] Jeffy Tineo MD 03/13/2025 Treatment [facility] [address] [phone] Jeffy Tineo MD End stage renal disease; Dependence on renal dialysis 03/06/2025 Treatment [facility] [address] [phone] Jeffy Tineo MD End stage renal disease; Dependence on renal dialysis 02/27/2025 Treatment [facility] [address] [phone] Jeffy Tineo MD End stage renal disease; Dependence on renal dialysis 02/20/2025 Treatment [facility] [address] [phone] Jeffy Tineo MD End stage renal disease; Dependence on renal dialysis 02/15/2025 Treatment [facility] [address] [phone] Jeffy Tineo MD End stage renal disease; Dependence on renal dialysis 02/08/2025 Treatment [facility] [address] [phone] Jeffy Tineo MD End stage renal disease; Dependence on renal dialysis 01/27/2025 Treatment [facility] [address] [phone] Jeffy Tineo MD End stage renal [...] Priority Date/Time Associated Diagnosis Comments HEMOGLOBIN Routine 04/14/2025 3:00 AM EST HEMOGLOBIN AND HEMATOCRIT, BLOOD Routine 04/12/2025 3:00 AM EST FERRITIN Routine 03/29/2025 3:00 AM EST PROTEIN, TOTAL, SERUM Routine 03/29/2025 3:00 AM EST PTH, INTACT Routine 03/29/2025 3:00 AM EST TRANSFERRIN SATURATION Routine 3:00 AM EST ELECTROLYTE PANEL Routine 03/29/2025 3:0 0 AM EST MAGNESIUM Routine 03/29/2025 3:00 AM EST LACTATE DEHYDROGENASE Routine 03/29/2025 3:00 AM EST LIH (HC) Routine 03/29/2025 3:00 AM EST GLUCOSE, RANDOM Routine 03/29/2025 3:00 AM EST CREATININE, SERUM Routine 03/29/2025 3:0 0 AM EST BUN/CREATININE RATIO Routine 03/29/2025 3:00 AM EST BILIRUBIN, TOTAL Routine 03/29/2025 3:00 AM EST AST Routine 03/29/2025 3:00 AM EST ALT Routine 03/29/2025 3:00 AM EST ALKALINE PHOSPHATASE Routine 03/29/2025 3:00 AM EST CALCIUM PHOSPHORUS PRODUCT, ADJUSTED (HC) Routine 03/29/2025 3:00 AM EST KT/V NATURAL LOG, URR (HC) Routine 03/29/2025 3:00 AM EST CBC AND DIFFERENTIAL Routine 03/29/2025 3:00 AM EST HEMOGLOBIN AND HEMATOCRIT, BLOOD Routine 03/08/2025 3:00 [...] EDT HEMOGLOBIN Routine 01/16/2025 3:00 AM EDT from Last 3 Months Results * (ABNORMAL) Hemoglobin (04/14/2025 3:00 AM EST) Only the most recent of4 resultswithin the time period is included. Hgb 10.2(L) 11.2 - 15.7 g/dL [facility] Hemoglobin x 3 30.6(L) 33.6 - 47.1 g/dL [facility] 04/14/2025 3:00 AM EST 04/15/2025 12:51 PM EST Jeffy Tineo MD LAB BLOOD ORDERABLES Final Re sult Performing Organization Address [facility] Co de Phone Number [facility] [address] [place] [address] * (ABNORMAL) Hemoglobin and hematocrit (04/12/2025 3:00 AM EST) Only the most recent of3 resultswithin the time period is included. Hgb 9.9(L) 11.2 - 15.7 g/dL [facility] Hematocrit 30.1(L) 34.1 - 44.9 % [facility] Hemoglobin x 3 29.7(L) 33.6 - 47.1 g/dL [facility] 04/12/2025 3:00 AM EST 04/13/2025 1:39 PM EST Jeffy Tineo MD LAB BLOOD ORDERABLES Final Re sult Performing Organization Address [facility] Co de Phone Number [facility] [address] [place] [address] * LIH (03/29/2025 3:00 AM EST) Only the most recent of7 resultswithin the time period is included. Lipemia Normal Normal [facility] Icterus Normal Normal [facility] Hemolysis Normal Normal [facility] 03/29/2025 3:00 AM EST 03/30/2025 12:07 PM EST Jeffy Tineo MD LAB [id number] SOLICITED RESULTS Final Result Performing Organization Address [facility]/ZIP Co de Phone Number [facility] [address] [place] [address] * (ABNORMAL) Kt/V Natural Log, URR (03/29/2025 3:00 AM EST) Only the most recent of3 resultswithin the time period is included. Treatment Time 196 min [facility] Pre-Weight, lb 98.6 kg [facility] Post-Weight, lb 97.1 kg [facility] Ultrafiltration Rate 5 <=13 mL/kg/hr [facility] Comment: Recommend achieving Ultrafiltration Rate (UFR) <=10 mL/kg/hr References: Charley TODD et al. Kidney Int. 2010; 79(2):250-257 BUN 57(H) 7 - 25 mg/dL [facility] BUN Post Dialysis 15 7 - 25 mg/dL [facility] UREA REDUCTION RATIO (%) 74 >=65 % [facility] Kt/V Natural Log 1.49 >=1.2 [facility] 03/29/2025 3:00 AM EST 03/30/2025 12:07 PM EST Jeffy Tineo MD LAB [id number] SOLICITED RESULTS Final Result Performing Organization Address [facility] de Phone Number [facility] [address] [place] [address] * (ABNORMAL) Calcium Phosphorus Product, Adjusted (03/29/2025 3:00 AM EST) Only the most recent of3 resultswithin the time period is included. Albumin 4.3 3.6 - 5.4 g/dL [facility] Calcium 9.9 8.6 - 10.3 mg/dL [facility] Phosphorus, Serum 5.5(H) 2.5 - 5.0 mg/dL [facility] Ca*PO4 54.4 <55.0 mg2/dL2 [facility] Calcium, Adjusted Total 9.9 8.6 - 10.3 mg/dL [facility] CA*PO4 CORRCTD 54.4 <55.0 mg2/dL2 [facility] 03/29/2025 3:00 AM EST 03/30/2025 12:07 PM EST Jeffy Tineo MD LAB [id number] SOLICITED RESULTS Final Result Performing Organization Address [facility] de Phone Number [facility] [address] [place] [address] * BUN/CREATININE RATIO (03/29/2025 3:00 AM EST) Only the most recent of3 resultswithin the time period is included. BUN/Creatinine Ratio 7.3 <=23.0 [facility] 03/29/2025 3:00 AM EST 03/30/2025 12:07 PM EST Jeffy Tineo MD LAB [id number] SOLICITED RESULTS Final Result Performing Organization Address [facility] de Phone Number [facility] [address] [place] [address] * (ABNORMAL) TSAT (03/29/2025 3:00 AM EST) Only the most recent of3 resultswithin the time period is included. Pathologist [facility] Iron 98 50 - 170 ug/dL [facility] Transferrin 190(L) 250 - 380 mg/dL [facility] TIBC 266 211 - 406 ug/dL [facility] Iron Saturation (TSat) 37 22 - 52 % [facility] 03/29/2025 3:00 AM EST 03/30/2025 12:07 PM EST Jeffy Tineo MD LAB BLOOD ORDERABLES Final Re sult Performing Organization Address [facility] de Phone Number [facility] [address] [place] [address] * (ABNORMAL) CBC and Differential (03/29/2025 3:00 AM EST) Only the most recent of3 resultswithin the time period is included. Pathologist [facility] DIFFERENTIAL MANUAL, 2 Not Indicated [facility] White Blood Cells 8.8 4.0 - 10.0 K/uL [facility] RBC 3.19(L) 3.93 - 5.22 M/uL [facility] Hgb 10.1(L) 11.2 - 15.7 g/dL [facility] Hemoglobin x 3 30.3(L) 33.6 - 47.1 g/dL [facility] Hematocrit 31.7(L) 34.1 - 44.9 % [facility] MCV 99.4(H) 79.4 - 94.8 fL [facility] MCH 31.7 25.6 - 32.2 pg [facility] MCHC 31.9(L) 32.2 - 35.5 g/dL [facility] RDW 14.7(H) 11.7 - 14.4 % [facility] Platelets 214 182 - 369 K/uL [facility] MPV 12.4 9.2 - 12.8 fL [facility] Neutrophils Relative 71.8(H) 34.0 - 71.1 % [facility] Lymphocytes Relative 17.9(L) 19.3 - 51.7 % [facility] Monocytes 5.2 4.7 - 12.5 % [facility] Eosinophils Relative 4.0 0.7 - 5.8 % [facility] Basophils Relative 0.8 0.1 - 1.2 % [facility] Immature Granulocytes 0.3 0.0 - 1.0 % [facility] 03/29/2025 3:00 AM EST 03/30/2025 12:04 PM EST Jeffy Tineo MD LAB BLOOD ORDERABLES Final Re sult Performing Organization Address [facility] Co de Phone Number [facility] [address] [place] [address] * ALT (03/29/2025 3:00 AM EST) Only the most recent of3 resultswithin the time period is included. ALT (SGPT) 17 10 - 49 U/L [facility] 03/29/2025 3:00 AM EST 03/30/2025 12:07 PM EST Jeffy Tineo MD LAB BLOOD ORDERABLES Final Re sult [facility] [address] [place] [address] * AST (03/29/2025 3:00 AM EST) Only the most recent of3 resultswithin the time period is included. AST (SGOT) 12 <34 U/L [facility] 03/29/2025 3:00 AM EST 03/30/2025 12:07 PM EST Jeffy Tineo MD LAB BLOOD ORDERABLES Final Re sult Performing Organization Address [facility] Co de Phone Number [facility] [address] [place] [address] * Protein, total (03/29/2025 3:00 AM EST) Only the most recent of3 resultswithin the time period is included. Total Protein 7.6 6.4 - 8.9 g/dL [facility] 03/29/2025 3:00 AM EST 03/30/2025 12:07 PM EST Jeffy Tineo MD LAB BLOOD ORDERABLES Final Re sult Performing Organization Address [facility] Co de Phone Number [facility] [address] [place] [address] * (ABNORMAL) Alkaline phosphatase (03/29/2025 3:00 AM EST) Only the most recent of3 resultswithin the time period is included. Alkaline Phosphatase 134(H) 46 - 116 U/L [facility] 03/29/2025 3:00 AM EST 03/30/2025 12:07 PM EST Jeffy Tineo MD LAB BLOOD ORDERABLES Final Re sult Performing Organization Address [facility] Co de Phone Number [facility] [address] [place] [address] * PTH, Intact (03/29/2025 3:00 AM EST) Only the most recent of2 resultswithin the time period is included. PTH, Intact 485 160 - 721 pg/mL [facility] Comment: Suggested (KDIGO) ESRD maintenance range is two to nine times the upper normal limit (80.1 pg/mL) for the laboratory. 03/29/2025 3:00 AM EST 03/30/2025 12:07 PM EST Jeffy Tineo MD LAB BLOOD ORDERABLES Final Re sult Performing Organization Address [facility] Co de Phone Number [facility] [address] [place] [address] * Magnesium (03/29/2025 3:00 AM EST) Only the most recent of3 resultswithin the time period is included. Magnesium 2.2 1.9 - 2.7 mg/dL [facility] 03/29/2025 3:00 AM EST 03/30/2025 12:07 PM EST Jeffy Tineo MD LAB BLOOD ORDERABLES Final Re sult Performing Organization Address [facility] de Phone Number [facility] [address] [place] [address] * (ABNORMAL) Lactate dehydrogenase (03/29/2025 3:00 AM EST) Only the most recent of3 resultswithin the time period is included. LDH 250(H) 120 - 246 U/L [facility] 03/29/2025 3:00 AM EST 03/30/2025 12:07 PM EST Jeffy Tineo MD LAB BLOOD ORDERABLES Final Re sult Performing Organization Address [facility] de Phone Number [facility] [address] [place] [address] * (ABNORMAL) Glucose, random (03/29/2025 3:00 AM EST) Only the most recent of3 resultswithin the time period is included. Glucose 192(H) 70 - 99 mg/dL [facility] Comment: ADA guidelines outline the following fasting glucose ranges: Normal: <100 Prediabetes: 100-125 Diabetes: >125 03/29/2025 3:00 AM EST 03/30/2025 12:07 PM EST Jeffy Tineo MD LAB BLOOD ORDERABLES Final Re sult Performing Organization Address [facility] Co de Phone Number [facility] [address] [place] [address] * (ABNORMAL) Ferritin (03/29/2025 3:00 AM EST) Only the most recent of3 resultswithin the time period is included. Ferritin 1,757(H) 10 - 291 ng/mL [facility] 03/29/2025 3:00 AM EST 03/30/2025 12:07 PM EST Jeffy Tineo MD LAB BLOOD ORDERABLES Final Re sult Performing Organization Address [facility] de Phone Number [facility] [address] [place] [address] * (ABNORMAL) Creatinine, serum (03/29/2025 3:00 AM EST) Only the most recent of3 resultswithin the time period is included. Creatinine 7.78(H) 0.55 - 1.02 mg/dL [facility] 03/29/2025 3:00 AM EST 03/30/2025 12:07 PM EST Jeffy Tineo MD LAB BLOOD ORDERABLES Final Re sult Performing Organization Address [facility] de Phone Number [facility] [address] [place] [address] * Bilirubin, total (03/29/2025 3:00 AM EST) Only the most recent of3 resultswithin the time period is included. Total Bilirubin 0.5 0.3 - 1.2 mg/dL [facility] 03/29/2025 3:00 AM EST 03/30/2025 12:07 PM EST Jeffy Tineo MD LAB BLOOD ORDERABLES Final Re sult Performing Organization Address [facility] Co de Phone Number [facility] [address] [place] [address] * (ABNORMAL) Electrolyte panel (03/29/2025 3:00 AM EST) Only the most recent of3 resultswithin the time period is included. Sodium 139 136 - 145 mEq/L [facility] Potassium 5.2(H) 3.4 - 5.0 mEq/L [facility] Chloride 100 98 - 107 mEq/L [facility] Bicarbonate (CO2) 24 21 - 31 mEq/L [facility] Anion Gap 15(H) 3 - 14 mEq/L [facility] 03/29/2025 3:00 AM EST 03/30/2025 12:07 PM EST Jeffy Tineo MD LAB BLOOD ORDERABLES Final Re sult Performing Organization Address [facility] de Phone Number [facility] [address] [place] [address] * Calcium, Adjusted w Albumin (03/08/2025 3:00 AM EDT) Pathologist [facility] Calcium 9.5 8.6 - 10.3 mg/dL [facility] Albumin 4.3 3.6 - 5.4 g/dL [facility] Calcium, Adjusted Total 9.5 8.6 - 10.3 mg/dL [facility] 03/08/2025 3:00 AM EDT 03/09/2025 1:12 PM EDT Jeffy Tineo MD LAB BLOOD ORDERABLES Final Re sult Performing Organization Address [facility] de Phone Number [facility] [address] [place] [address] * (ABNORMAL) Hemoglobin A1c (02/22/2025 3:00 AM EDT) Hemoglobin A1C 10.2(H) <5.7 % [facility] Comment: Methodology: Enzymatic Normal: <5.7% Prediabetes: 5.7-6.4% Diabetes: >6.4% Diabetic Glucose Control Evaluation: Therapeutic action suggested at >8.0% ADA recommends a glycemic goal of <7.0% 02/22/2025 3:00 AM EDT 02/23/2025 1:39 PM EDT Jeffy Tineo MD LAB BLOOD ORDERABLES Final Re sult Performing Organization Address [facility] de Phone Number [facility] [address] [place] [address] * (ABNORMAL) Lipid panel (02/22/2025 3:00 AM [...] ORDERABLES Final Re sult Performing Organization Address [facility] de Phone Number [facility] [address] [place] [address] * Potassium (02/15/2025 3:00 AM EDT) Only the most recent of3 resultswithin the time period is included. Potassium 4.5 3.4 - 5.0 mEq/L [facility] 02/15/2025 3:00 AM EDT 02/16/2025 1:16 PM EDT Jeffy Tineo MD LAB BLOOD ORDERABLES Final Re sult Performing Organization Address [facility] Co de Phone Number [facility] [address] [place] [address] * CO2 (02/01/2025 3:00 AM EDT) Bicarbonate (CO2) 28 21 - 31 mEq/L [facility] 02/01/2025 3:00 AM EDT 02/02/2025 2:18 PM EDT Jeffy Tineo MD LAB BLOOD ORDERABLES Final Re sult Performing Organization Address [facility] de Phone Number [facility] [address] [place] [address] from Last 3 Months Insurance Medicaid [place] Care Teams Utility Worker Relationship Specialty Start Date End Date Ines Zamora MD [address] [place] [id number] PCP - General 06/04/20
== END 2025-04-18 13:34 | disposition home or self-care (01) ==
LOC: HO.HCS 13:10
PROVIDERS: PCP Internal Medicine; Visit Provider Nurse Practitioner Family
DX: I25.10 Atherosclerotic heart disease of native coronary artery without angina pectoris (principal); Z98.890 Other specified postprocedural states; I48.92 Unspecified atrial flutter; I12.0 Hypertensive chronic kidney disease with stage 5 chronic kidney disease or end stage renal disease; N18.6 End stage renal disease; I21.4 Non-ST elevation (NSTEMI) myocardial infarction
CPT/HCPCS: 99214

== ENCOUNTER → 2025-04-18 13:09 | Outpatient (BNVA) | payer MEDICAID, SELFPAY | PROVIDERS: PCP Internal Medicine; Visit Provider Nurse Practitioner Family | DX: I25.10 Atherosclerotic heart disease of native coronary artery without angina pectoris (principal); I48.92 Unspecified atrial flutter; I12.0 Hypertensive chronic kidney disease with stage 5 chronic kidney disease or end stage renal disease; N18.6 End stage renal disease; I21.4 Non-ST elevation (NSTEMI) myocardial infarction; Z98.890 Other specified postprocedural states | CPT/HCPCS: 99212 ==

== ENCOUNTER 2025-05-11 16:36 | Outpatient (REF) | payer MEDICAID, SELFPAY ==
--- OUTSIDE RECORDS SUMMARY | 2025-05-11 10:45 | XMS_ITS | Encounter Summary ---
Author Organization [employer] Address [address] [place] [address] [address] [place] [address] Care Team Providers Care Ldr Nurse Name Role Phone Faith Mason MD Primary Care Provide r Reason for Visit * Reason Comments Follow-up Encounter Details Date Type Department Care Team ([facility] st Contact Info) Description 05/11/2025 10:45 AM EST Office Visit [facility] [address], [place] [phone] Faith Mason MD [address], [place] [phone] Vaginal discharge (Primary Dx); Type 2 diabetes mellitus with hyperglycemia, with long-term current use of insulin (HCC); Pulmonary HTN (CMS/HCC) (HCC); Chronic atrial fibrillation (CMS/HCC) (HCC); Mild intermittent asthma, unspecified whether complicated; Dietary counseling; Exercise counseling; Class 2 severe obesity due to excess calories with serious comorbidity and body mass index (BMI) of 37.0 to 37.9 in adult; Encounter for immunization Social History Tobacco Use Types Packs/Day Years [...] Answer Date Recorded Patient Health Questionnaire-9 Score 8 05/11/2025 Patient Health Questionnaire-9 Score 8 05/11/2025 Last PHQ-9: Questionnaire Data Not on file 1 07/12/2024 Housing Stability Answer Date Recorded What is [...] Answer Date Recorded Patient Health Questionnaire-2 Score 1 05/11/2025 Internet Access Answer Date Recorded Internet Access [...] Sign Reading Time Taken Comments Blood Pressure 130/64 05/11/2025 10:53 AM EST Pulse 67 05/11/2025 10:53 AM EST Temperature 36.2 C (97.1 F) 05/11/2025 10:53 AM EST Respiratory Rate 20 05/11/2025 10:53 AM EST Oxygen Saturation 95% 05/11/2025 10:53 AM EST Inhaled Oxygen Concentration - - Weight 95.3 kg (210 lb) 05/11/2025 10:53 AM EST Height 160 cm (5' 3 ) 05/11/2025 10:53 AM EST Body Mass Index 37.2 05/11/2025 10:53 AM EST documented in this encounter Functional Status * Over the past 2 weeks, how often have you been bothered by any of the following problems? Question Answer Date of Assessment Author Patient Health Questionnaire -2 Score 1 05/11/2025 11:36 AM Dee Sotelo MA * Little interest or pleasure in doing things Answer Date of Assessment Author Several days 05/11/2025 11:36 AM Dee Sotelo MA * Feeling down, depressed, or hopeless Answer Date of Assessment Author Not at all 05/11/2025 11:36 AM Dee Sotelo MA * Trouble falling or staying asleep, or sleeping too much Answer Date of Assessment Author More than half the days 05/11/2025 11:36 AM Dee Sotelo MA * Feeling tired or having little energy Answer Date of Assessment Author Nearly every day 05/11/2025 11:36 AM Dee Sotelo MA * Poor appetite or overeating Answer Date of Assessment Author Several days 05/11/2025 11:36 AM Dee Sotelo MA * Feeling bad about yourself - or that you are a failure or have let yourself or your family down Answer Date of Assessment Author Not at all 05/11/2025 11:36 AM Dee Sotelo MA * Trouble concentrating on things, such as reading the newspaper or watching television Answer Date of Assessment Author Several days 05/11/2025 11:36 AM Dee Sotelo MA * Moving or speaking so slowly that other people could have noticed? Or the opposite - being so fidgety or restless that you have been moving around a lot more than usual. Answer Date of Assessment Author Not at all 05/11/2025 11:36 AM Dee Sotelo MA * Thoughts that you would be better off or hurting yourself in some way Answer Date of Assessment Author Not at all 05/11/2025 11:36 AM Dee Sotelo MA * Patient Health Questionnaire-9 Score Answer Date of Assessment Author 8 05/11/2025 11:36 AM Dee Sotelo MA * Over the last 2 weeks, how often have you been bothered by any of the following problems? Question Answer Date of Assessment Author Feeling nervous, anxious, or on edge 0 05/11/2025 11:37 AM eDe Sotelo MA Not being able to stop or co ntrol worrying 1 05/11/2025 11:37 AM Dee Sotelo MA Worrying too much about diff erent things 1 05/11/2025 11:37 AM Dee Sotelo MA Trouble relaxing 1 05/11/2025 11:37 AM Dee Sotelo MA Being so restless that it is hard to sit still 0 05/11/2025 11:37 AM Dee Sotelo MA Becoming easily annoyed or irritable 1 05/11/2025 11:37 AM Dee Sotelo MA Feeling afraid as if somethi ng awful might happen 0 05/11/2025 11:37 AM Dee Sotelo MA DIANDRA-7 Total Score 4 05/11/2025 11:37 AM Dee Sotelo MA * How difficult have these problems made it for you to do your work, take care of things at home, or get along with other people? Answer Date of Assessment Author Not difficult at all 05/11/2025 11:36 AM Dee Lim MA documented as of this encounter Progress Notes * Faith No MD - 05/11/2025 10:45 AM EST SUBJECTIVE: Sarah Corado is a 60 y.o. year old female who presents for Chronic Disease Management . Sarah Corado, 60 years Diabetes Mellitus - Reports blood glucose readings fluctuating, with a recent value of 200 mg/dL - Noted previous low reading of 53 mg/dL with symptoms of hand cramps - assists with checking blood glucose for compatibility - States dietary changes with reduced portions, especially meat, and decreased intake of sweets - Reports weight loss, with pants fitting looser and others noticing physical changes - Hemoglobin A1c improved over the last 3 months, now at 7% - No mention of recent hypoglycemic episodes other than hand cramps - Denies unusual odor or abnormal discharge Chronic Kidney Disease / Dialysis - Undergoing dialysis, brings coffee to sessions - Reports being evaluated by repairing calibrator - Awaiting kidney transplant, completed required cardiovascular course and provided diploma - Was temporarily removed from transplant list until course completion - No recent bleeding episodes reported - Denies leg swelling, notes legs appear thinner, with persistent spots on legs Vision - Recent eye evaluation completed Vaginal discharge -Reports persistent vaginal discharge, denie itching or mal odor Misc - Expresses emotional support from dialysis peers, enjoys social interactions during sessions Social History Social History Narrative Not on file Problem List[1] Abnormal gait End stage renal failure on dialysis ([facility]) ([facility]) Coronary artery disease involving [place] coronary artery of [place] heart with unstable angina pectoris ([facility]) Asthma Atrial flutter ([facility]) ([facility]) Calculus of kidney Chronic diastolic heart failure ([facility]) Chronic low back pain Dyspnea on exertion Essential hypertension Increased frequency of urination Postmenopausal bleeding Primary osteoarthritis of both knees Recurrent major depression in partial remission ([facility]) Atypical chest pain Urinary tract infectious disease Type 2 diabetes mellitus with hyperglycemia, with long-term current use of insulin ([facility]) Allergies Chronic pain of left ankle Left foot pain Right hip pain Severe dental caries Vaginal discharge Encounter for screening mammogram for malignant neoplasm of breast Colon cancer screening Chronic endometritis Diabetic polyneuropathy associated with type 2 diabetes mellitus ([facility]) Polyarthralgia GERD (gastroesophageal reflux disease) Thyroid nodule Fibroma Dermatitis of face Screening examination for STI Other constipation Left hip pain Chronic bilateral low back pain Preop examination Chronic frontal sinusitis Depression with anxiety Chronic nonintractable headache Pelvic pain Right arm pain Internal nasal lesion Acute CHF ([facility]) Acute hyperkalemia AF (atrial fibrillation) ([facility]) ([facility]) Anemia of chronic kidney failure Carpal tunnel syndrome on both sides Cubital tunnel syndrome on left Cubital tunnel syndrome on right Degenerative joint disease (DJD) of hip Elevated troponin Hemorrhage of arteriovenous fistula ([facility]) Hidradenitis suppurativa History of cardiac catheterization HLD (hyperlipidemia) Lumbar facet joint pain Moderate mitral regurgitation Non-toxic multinodular goiter NSTEMI (non-ST elevated myocardial infarction) ([facility]) AMARJIT on CPAP Pulmonary HTN ([facility]) ([facility]) Obesity due to excess calories Severe obesity (BMI 35.0-39.9) with comorbidity ([facility]) ([facility]) Unstable angina ([facility]) ([facility]) Chest pain CAD (coronary artery disease) Chronic kidney disease with end stage renal failure on dialysis ([facility]) ([facility]) Acid reflux Pain in both feet Encounter for screening colonoscopy Preop cardiovascular exam Uncontrolled type 2 diabetes mellitus with hyperglycemia, with long-term current use of insulin (HCC) 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 (HCC) Great toe pain, right Acute otitis externa Seborrheic dermatitis Mouth bleeding Bleeding post tooth extraction Family History[2] Review of Systems Constitutional: Negative. HENT: Negative. Respiratory: Negative. Cardiovascular: Negative. Genitourinary: Positive for vaginal discharge. OBJECTIVE: Vitals: 05/11/25 1053 BP: 130/64 BP Location: Left arm Patient Position: Sitting BP Cuff Size: Large adult Pulse: 67 Resp: 20 Temp: 97.1 ??F (36.2 ??C) TempSrc: Oral SpO2: 95% Weight: 210 lb (95.3 kg) Height: 5' 3 (1.6 m) Physical Exam Constitutional: Appearance: Normal appearance. Cardiovascular: Rate and Rhythm: Normal rate and regular rhythm. Pulmonary: Effort: Pulmonary effort is normal. Breath sounds: Normal breath sounds. Abdominal: General: Abdomen is flat. Palpations: Abdomen is soft. Musculoskeletal: Right lower leg: No edema. Left lower leg: No edema. Neurological: Mental Status: She is alert. Follow Up: No follow-ups on file. Medications Ordered Prior to Encounter[3] Problem List Items Addressed This Visit Type 2 diabetes mellitus with hyperglycemia, with long-term current use of insulin ([facility]) Relevant Medications Blood Glucose Monitoring Suppl (FreeStyle [place] Lite) w/Device kit Lancets misc Alcohol Swabs 70 % pads FREESTYLE LITE test strip zoster vaccine-recombinant adjuvanted (Shingrix) 50 MCG/0.5ML vaccine RSV Pre-Fusion F A&B Vac Rcmb (Abrysvo) 120 MCG/0.5ML reconstituted solution Other Relevant Orders POCT Glucose (Completed) POCT Hgb A1c (Completed) Lipid Panel, Standard Albumin, Random Urine W/Creatinine Pulmonary HTN (CMS/HCC) (HCC) AF (atrial fibrillation) (CMS/HCC) ([facility]) Asthma Obesity due to excess calories Vaginal discharge - Primary Other Visit Diagnoses Dietary counseling Exercise counseling Type 2 diabetes mellitus with hyperglycemia, with long-term current use of insulin ([facility]): - Glycemic control improving, as evidenced by weight loss and improved A1c. No acute complications discussed. - Ordered laboratory tests for cholesterol. Continue current management. Follow- up scheduled in 3 months. -Follow up with endocrinology Pulmonary HTN (CMS/HCC) ([facility]): - Stable, no acute issues discussed. Contineu to follow with cardiology - Continue current management. Follow-up as scheduled. Chronic atrial fibrillation ([facility]) ([facility]): - Stable, no acute symptoms discussed. - Continue current management. Follow-up as scheduled. Dietary counseling: - Weight loss achieved through dietary modifications. - Continue current dietary regimen. Reinforced importance of portion control. Class 2 severe obesity due to excess calories with serious comorbidity and body mass index (BMI) of37.0 to 37.9 in adult: - Weight reduction noted, which is beneficial for comorbid conditions. - Continue current weight management strategies. Monitor progress. Vaginal discharge: - Vaginal discharge present, no malodor or bleeding. No acute infection suspected. - Ordered vaginal swab for evaluation. Will communicate results when available. This note was drafted using Ambient (AI) technology. The patient/patient's guardian has been informed and has consented to the use of this technology: Yes [1] Patient Active Problem List Diagnosis Abnormal gait End stage renal failure on dialysis ([facility]) ([facility]) Coronary artery disease involving [place] coronary artery of [place] heart with unstable angina pectoris ([facility]) Asthma Atrial flutter ([facility]) ([facility]) Calculus of kidney Chronic diastolic heart failure ([facility]) Chronic low back pain Dyspnea on exertion Essential hypertension Increased frequency of urination Postmenopausal bleeding Primary osteoarthritis of both knees Recurrent major depression in partial remission ([facility]) Atypical chest pain Urinary tract infectious disease Type 2 diabetes mellitus with hyperglycemia, with long-term current use of insulin ([facility]) Allergies Chronic pain of left ankle Left foot pain Right hip pain Severe dental caries Vaginal discharge Encounter for screening mammogram for malignant neoplasm of breast Colon cancer screening Chronic endometritis Diabetic polyneuropathy associated with type 2 diabetes mellitus ([facility]) Polyarthralgia GERD (gastroesophageal reflux disease) Thyroid nodule Fibroma Dermatitis of face Screening examination for STI Other constipation Left hip pain Chronic bilateral low back pain Preop examination Chronic frontal sinusitis Depression with anxiety Chronic nonintractable headache Pelvic pain Right arm pain Internal nasal lesion Acute CHF ([facility]) Acute hyperkalemia AF (atrial fibrillation) ([facility]) ([facility]) Anemia of chronic kidney failure Carpal tunnel syndrome on both sides Cubital tunnel syndrome on left Cubital tunnel syndrome on right Degenerative joint disease (DJD) of hip Elevated troponin Hemorrhage of arteriovenous fistula ([facility]) Hidradenitis suppurativa History of cardiac catheterization HLD (hyperlipidemia) Lumbar facet joint pain Moderate mitral regurgitation Non-toxic multinodular goiter NSTEMI (non-ST elevated myocardial infarction) ([facility]) AMARJIT on CPAP Pulmonary HTN ([facility]) ([facility]) Obesity due to excess calories Severe obesity (BMI 35.0-39.9) with comorbidity ([facility]) ([facility]) Unstable angina ([facility]) ([facility]) Chest pain CAD (coronary artery disease) Chronic kidney disease with end stage renal failure on dialysis ([facility]) ([facility]) Acid reflux Pain in both feet Encounter for screening colonoscopy Preop cardiovascular exam Uncontrolled type 2 diabetes mellitus with hyperglycemia, with long-term current use of insulin ([facility]) 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 ([facility]) Great toe pain, right Acute otitis externa Seborrheic dermatitis Mouth bleeding Bleeding post tooth extraction [2] No family history on file. [3] [...] DAILY IN THE MORNING AND IN THE [id number] tablet 3 atorvastatin (Lipitor) 40 MG tablet TAKE 1 TABLET BY MOUTH EVERYDAY AT NOON 90 tablet 1 Blood Glucose Monitoring Suppl ([employer] [place] Lite) w/Device kit Use to test blood sugar 3 times daily 1 kit 0 Blood Pressure Monitoring (Blood Pressure Cuff) misc Use to take Blood Pressure daily brimonidine (AlphaGAN) 0.2 % ophthalmic solution Administer 1 drop into the left eye 3 times daily. Continuous Glucose Jumpbasting Machine Operator ([employer]WIFI[employer] Tkia 3 [place]) device Use as directed Continuous Glucose Sensor (FreeStyle Tika 3 Sensor) misc USE DIRECTED TO TEST BLOOD SUGAR CHANGE EVERY 14 DAYS D3 Super Strength 50 MCG (2000 UT) capsule TAKE 1 CAPSULE BY MOUTH EVERY MORNING 90 capsule 1 docusate sodium (Colace) 100 MG capsule TAKE 1 CAPSULE BY MOUTH TWICE DAILY 180 capsule 1 Fiber-Lax 625 MG tablet TAKE 1 TABLET [...] UNITS SUBCUTANEOUSLY EVERY DAY 6 mL 1 ketoconazole (NIZOral) 2 % shampoo APPLY TOPICALLY TO THE AFFECTED AREA(S) TWICE A WEEK 120 mL 2 ketorolac (Acular) 0.5 % ophthalmic solution INSTILL [...] THE MORNING AND EVENING 90 tablet 1 nitroglycerin (Nitrostat) 0.[address] [...] THE EVENING WITH FOOD (PARA FOSFATO ALTO) TRUEplus Lancets 33G [facility] [place] TEST BLOOD SUGAR THREE TIMES DAILY 100 each 11 No current facility-administered medications on file prior to visit. documented in this encounter Miscellaneous Notes * Addendum Note - Dee Paige MA - 05/11/2025 10:45 AM ESTAddended by: DEE PAIGE on: 05/11/2025 03:43 PM Modules accepted: Orders documented in this encounter Plan of Treatment Upcoming Encounters Date Type Department Care Team (Late st Contact Info) Description 06/08/2025 2:15 PM EST Office Visit [facility] [address] [place] [address] Shiva, Karen [address] [place] [address] 08/10/2025 10:45 AM EDT Office Visit [facility] MED[facility] [address] [place] [address] Faith Mason MD [address] [place] [address] Scheduled Orders Name Type Priority Associated Diagnoses Orde r Schedule Lipid Panel, Standard Lab Routine Type 2 diabetes mellitus with hyperglycemia, with long-term current use of insulin (HCC) Expected: 05/11/2025 (Approximate), Expires: 05/11/2026 Albumin, Random Urine W/Creatinine Lab Routine Type 2 diabetes mellitus with hyperglycemia, with long-term current use of insulin (HCC) Expected: 05/11/2025 (Approximate), Expires: 05/11/2026 Bacterial Vaginosis Panel Microbiology Routine Vaginal discharge Ordered: 05/11/2025 documented as of this encounter Goals Goal Patient Goal Type Associated Problems Recent Progress Patient-Stated? Author Help patients manage their type 2 diabetes Care Plan Help patients manage their type 2 diabetes No Gloria Greenberg Weekly blood pressure task Care Plan Weekly blood pressure task No Gloria Greenberg Help patients manage their type 2 diabetes Care Plan Help patients manage their type 2 diabetes No Gloria Greenberg Patient has chronic kidney disease Care Plan Patient has chronic kidney disease No Gloria Greenberg Help patients manage their type 2 diabetes Care Plan Help patients manage their type 2 diabetes No Gloria Greenberg Patient has diabetic neuropathy Care Plan Patient has diabetic neuropathy No Gloria Greenberg Weekly blood pressure task Care Plan Weekly blood pressure task No Gloria Greenberg Weekly blood pressure task Care Plan Weekly blood pressure task No Gloria Greenberg Patient has chronic kidney disease Care Plan Patient has chronic kidney disease No Gloria Greenberg Patient has chronic kidney disease Care Plan Patient has chronic kidney disease No Gloria Greenberg Patient has diabetic neuropathy Care Plan Patient has diabetic neuropathy No Gloria Greenberg Patient has diabetic neuropathy Care Plan Patient has diabetic neuropathy No Gloria Greenberg Weekly blood pressure task Care Plan Weekly blood pressure task No Isabela Pope MA Weekly blood pressure task Care Plan Weekly blood pressure task No Isabela Pope MA Weekly blood pressure task Care Plan Weekly blood pressure task No Isabela Pope MA Patient has chronic kidney disease Care Plan Patient has chronic kidney disease No Isabela Pope MA Patient has chronic kidney disease Care Plan Patient has chronic kidney disease No Isabela Pope MA Patient has chronic kidney disease Care Plan Patient has chronic kidney disease No Isabela Pope MA Patient has diabetic neuropathy Care Plan Patient has diabetic neuropathy No Isabela Pope MA Patient has diabetic neuropathy Care Plan Patient has diabetic neuropathy No Isabela Pope MA Patient has diabetic neuropathy Care Plan Patient has diabetic neuropathy No Isabela Pope MA Weekly blood pressure task Care Plan Weekly blood pressure task No Dee Paige MA Weekly blood pressure task Care Plan Weekly blood pressure task No Dee Paige MA Weekly blood pressure task Care Plan Weekly blood pressure task No Dee Paige MA Patient has chronic kidney disease Care Plan Patient has chronic kidney disease No Dee Paige MA Patient has chronic kidney disease Care Plan Patient has chronic kidney disease No Dee Paige MA Patient has chronic kidney disease Care Plan Patient has chronic kidney disease No Dee Paige MA Patient has diabetic neuropathy Care Plan Patient has diabetic neuropathy No Dee Paige [place] Patient has diabetic neuropathy Care Plan Patient has diabetic neuropathy No Dee Paige [place] Patient has diabetic neuropathy Care Plan Patient has diabetic neuropathy No Dee Paige MA Weekly blood pressure task Care Plan Weekly blood pressure task No Gilson, Marleni, SILK SPOTTER Weekly blood pressure task Care Plan Weekly blood pressure task No GilsonDaynaMarleni SILK SPOTTER Weekly blood pressure task Care Plan Weekly blood pressure task No Gilson, Marleni, SILK SPOTTER Patient has chronic kidney disease Care Plan Patient has chronic kidney disease No Gilson, Marleni, SILK SPOTTER Patient has chronic kidney disease Care Plan Patient has chronic kidney disease No Gilson Marleni, SILK SPOTTER Patient has chronic kidney disease Care Plan Patient has chronic kidney disease No Gilson, Marleni, SILK SPOTTER Patient has diabetic neuropathy Care Plan Patient has diabetic neuropathy No Gilson, Marleni, SILK SPOTTER Patient has diabetic neuropathy Care Plan Patient has diabetic neuropathy No GilsonDaynaMarleni, SILK SPOTTER Patient has diabetic neuropathy Care Plan Patient has diabetic neuropathy No GilsonDaynaMarleni, SILK SPOTTER documented as of this encounter Procedures Procedure Name Priority Date/Time Associated Diagnosis Comments POCT GLYCATED HEMOGLOBIN, TOTAL Routine 05/11/2025 10:58 AM EST Type 2 diabetes mellitus with hyperglycemia, with long-term current use of insulin ([facility]) POCT GLUCOSE Routine 05/11/2025 10:57 AM EST Type 2 diabetes mellitus with hyperglycemia, with long-term current use of insulin ([facility]) documented in this encounter Results * (ABNORMAL) POCT Hgb A1c (05/11/2025 10:58 AM EST) Hemoglobin A1C 7.5(A) 4.0 - 5.7 % QC Media Lot # [id number] Lot# Expiration Date ,327 Blood 05/11/2025 10:5 8 AM EST Faith No MD POINT OF CARE TEST EN TER/EDIT ORDERABLES Final Result * POCT Glucose (05/11/2025 10:57 AM EST) Glucose Blood, POC 200 60 - 200 mg/dL QC Media Lot # [id number] Lot# Expiration Date Blood Capillary blood specimen / Unknown 05/11/2025 10:57 AM EST Faith No MD POINT OF CARE TEST EN TER/EDIT ORDERABLES Final Result documented in this encounter Visit Diagnoses Diagnosis Vaginal discharge- Primary Leukorrhea, not specified as infective Type 2 diabetes mellitus with hyperglycemia, with long-term current use of insulin (HCC) Pulmonary HTN (CMS/HCC) (HCC) Chronic atrial fibrillation (CMS/HCC) (HCC) Atrial fibrillation Mild intermittent asthma, unspecified whether complicated Dietary counseling Dietary surveillance and counseling Exercise counseling Class 2 severe obesity due to excess calories with serious comorbidity and body mass index (BMI) of 37.0 to 37.9 in adult Encounter for immunization documented in this encounter Additional Health Concerns Active Problems Noted Date Diagnosed Date Help patients manage their type 2 diabetes 05/02 Weekly blood pressure task 05/02/2025 Help patients manage their type 2 diabetes 05/02 Patient has chronic kidney disease 05/02/2025 Help patients manage their type 2 diabetes 05/02 Patient has diabetic neuropathy 05/02/2025 Weekly blood pressure task 05/02/2025 Weekly blood pressure task 05/02/2025 Patient has chronic kidney disease 05/02/2025 Patient has chronic kidney disease 05/02/2025 Patient has diabetic neuropathy 05/02/2025 Patient has diabetic neuropathy 05/02/2025 Weekly blood pressure task 05/10/2025 Weekly blood pressure task 05/10/2025 Weekly blood pressure task 05/10/2025 Patient has chronic kidney disease 05/10/2025 Patient has chronic kidney disease 05/10/2025 Patient has chronic kidney disease 05/10/2025 Patient has diabetic neuropathy 05/10/2025 Patient has diabetic neuropathy 05/10/2025 Patient has diabetic neuropathy 05/10/2025 Weekly blood pressure task 05/11/2025 Weekly blood pressure task 05/11/2025 Weekly blood pressure task 05/11/2025 Patient has chronic kidney disease 05/11/2025 Patient has chronic kidney disease 05/11/2025 Patient has chronic kidney disease 05/11/2025 Patient has diabetic neuropathy 05/11/2025 Patient has diabetic neuropathy 05/11/2025 Patient has diabetic neuropathy 05/11/2025 Weekly blood pressure task 05/11/2025 Weekly blood pressure task 05/11/2025 Weekly blood pressure task 05/11/2025 Patient has chronic kidney disease 05/11/2025 Patient has chronic kidney disease 05/11/2025 Patient has chronic kidney disease 05/11/2025 Patient has diabetic neuropathy 05/11/2025 Patient has diabetic neuropathy 05/11/2025 Patient has diabetic neuropathy 05/11/2025 Assessment Noted Time PHQ-9 Depression Total Score: 8 05/11/20 11:36 AM EST documented as of this encounter Care Teams Ldr Nurse Relationship Specialty Start Date End Date Faith Mason MD [address] [place] [address] PCP - General Family Medicine 04/12/19 Linda Peralta Instructor Technical TrainingShrimp Header 06/08/24 documented as of this encounter
--- OUTSIDE RECORDS SUMMARY | 2025-05-11 19:45 | XMS_ITS | Encounter Summary ---
Author Organization [employer] Address 75 [facility] 7t [place] [address] Care Team Providers Care Motel Keeper Name Role Phone Faith Mason MD Primary Care Provide r Encounter Details Date Type Department Care Team ([facility] st Contact Info) Description 03/08/2024 Orders Only [facility] MEDICINE [address] [place], [place] [phone] Faith Mason MD [address] [place], [place] [phone] Social History Tobacco Use Types Packs/Day Years [...] Description 06/08/2025 2:15 PM EST Office Visit [facility] ADULT DENTAL [address] [place] [phone] Shiva, Karen [address] [place] [address] 08/10/2025 10:45 AM EDT Office Visit [facility] MEDICINE [address] [place] [phone] Faith Mason MD [address] [place] [phone] documented as of this encounter Visit Diagnoses Not on filedocumented in this encounter Additional Health Concerns Assessment Noted Time PHQ-9 Depression Total Score: 6 11/24/19 24 2:35 PM EDT documented as of this encounter Care Teams Motel Keeper Relationship Specialty Start Date End Date Faith Mason MD [address] [place] [address] [phone] PCP - General Family Medicine 04/12/19 Linda Peralta Harnessmaker ApprenticeEducational Technology Coordinator 06/08/24 documented as of this encounter
--- OUTSIDE RECORDS SUMMARY | 2025-05-11 19:45 | XMS_ITS | Encounter Summary ---
Author Organization [employer] Address 75 [facility] 7t [place] [address] Care Team Providers Care Group Teacher Name Role Phone Faith Mason MD Primary Care Provide r Reason for Visit * Reason Onset Date Comments Chart Prep 05/10/2025 Encounter Details Date Type Department Care Team ([facility] st Contact Info) Description 05/10/2025 Telephone [facility] MEDICINE [address] [place], [place] [phone] Faith Mason MD [address] [place], [place] [phone] Chart Prep Social History Tobacco Use Types Packs/Day Years [...] encounter Miscellaneous Notes * Telephone Encounter - Isabela Pope MA - 05/10/2025 11:26 AM EST Chart Prep Labs: done Images: not applicable Referrals: appointment pending Vaccines due: Covid, Tdap, Hep B, RSV, and Zoster Screenings: eye exam and foot exam Overdue care gaps: A1c, Glucose, SBIRT, PHQ-9, DIANDRA-7, and Disability screen documented in this encounter Plan of Treatment Upcoming Encounters Date Type Department Care Team (Late st Contact Info) Description 06/08/2025 2:15 PM EST Office Visit [facility] ADULT DENTAL [address] [place] [phone] Karen Shannon [address] [place] [address] 08/10/2025 10:45 AM EDT Office Visit [facility] MEDICINE [address] [place] [phone] Faith Mason MD [address] [place] [address] documented as of this encounter Goals Goal Patient Goal Type Associated Problems Recent Progress Patient-Stated? Author Help patients manage their type 2 diabetes Care Plan Help patients manage their type 2 diabetes Gloria Lozano Weekly blood pressure task Care Plan Weekly [...] has diabetic neuropathy No Isabela Pope MA documented as of this encounter Visit Diagnoses Not on filedocumented in this encounter Additional Health Concerns Active [...] neuropathy 05/10/2025 Patient has diabetic neuropathy 05/10/2025 Assessment Noted Time PHQ-9 Depression Total Score: 6 11/24/19 24 2:35 PM EDT documented as of this encounter Care Teams Group Teacher Relationship Specialty Start Date End Date Faith Mason MD [address] [place] [address] PCP - General Family Medicine 04/12/19 Linda Peralta GreeterAccount Services Representative 06/08/24 documented as of this encounter
--- OUTSIDE RECORDS SUMMARY | 2025-05-11 19:45 | XMS_ITS | Encounter Summary ---
Author Organization [employer] Address 75 [facility] 7t [place] [address] Care Team Providers Care Repeater Chief Name Role Phone Faith Mason MD Primary Care Provide r Encounter Details Date Type Department Care Team ([facility] st Contact Info) Description 08/05/2024 Telephone [facility] MEDICINE [address] [place], [place] [phone] Faith Mason MD [address] [place], [place] [phone] Social History Tobacco Use Types Packs/Day Years [...] Description 06/08/2025 2:15 PM EST Office Visit [facility] ADULT DENTAL [address] [place] [phone] Shiva, Karen [address] [place] [address] 08/10/2025 10:45 AM EDT Office Visit [facility] MEDICINE [address] [place] [phone] Faith Mason MD [address] [place] [address] documented as of this encounter Visit Diagnoses Not on filedocumented in this encounter Additional Health Concerns Assessment Noted Time PHQ-9 Depression Total Score: 6 11/24/19 24 2:35 PM EDT documented as of this encounter Care Teams Repeater Chief Relationship Specialty Start Date End Date Faith Mason MD [address] [place] [address] [phone] PCP - General Family Medicine 04/12/19 Linda Peralta Crime Scene InvestigatorComputer Numerical Control Grinder 06/08/24 documented as of this encounter
--- OUTSIDE RECORDS SUMMARY | 2025-05-11 19:45 | XMS_ITS | Encounter Summary ---
Author Organization [employer] Address 75 [facility] 7t [place] [address] Care Team Providers Care Computer Meteorologist Name Role Phone Faith Mason MD Primary Care Provide r Encounter Details Date Type Department Care Team ([facility] st Contact Info) Description 08/05/2024 Telephone [facility] MEDICINE [address] [place], [place] [phone] Faith Mason MD 230 [place], [place] [phone] Social History Tobacco Use Types Packs/Day Years [...] Description 06/08/2025 2:15 PM EST Office Visit [facility] ADULT DENTAL [address] [place] [phone] Shiva, Karen [address] [place] [address] 08/10/2025 10:45 AM EDT Office Visit [facility] MEDICINE [address] [place] [phone] Faith Mason MD [address] [place] [phone] documented as of this encounter Visit Diagnoses Not on filedocumented in this encounter Additional Health Concerns Assessment Noted Time PHQ-9 Depression Total Score: 6 11/24/19 24 2:35 PM EDT documented as of this encounter Care Teams Computer Meteorologist Relationship Specialty Start Date End Date Faith Mason MD [address] [place] [address] [phone] PCP - General Family Medicine 04/12/19 Linda Peralta Circuitry Negative InspectorFreezing Machine Operator 06/08/24 documented as of this encounter
--- OUTSIDE RECORDS SUMMARY | 2025-05-11 19:46 | XMS_ITS | Encounter Summary ---
Author Organization [employer] Address 75 [facility] 7t [place] [address] Care Team Providers Care Security Systems Administrator Name Role Phone Faith Mason MD Primary Care Provide r Reason for Visit * Reason Comments Med Refill Encounter Details Date Type Department Care Team ([facility] st Contact Info) Description 05/11/2025 Refill [facility] MEDICINE [address] [place], [place] [phone] Faith Mason MD [address] [place] [address] Seborrheic dermatitis; Right arm pain; Numbness and tingling of [...] AM EDT documented as of this encounter Functional Status * Over the [...] Author Nearly every day 05/11/2025 11:36 AM eDe Sotelo [place] * Poor appetite or overeating [...] or on edge 0 05/11/2025 11:37 AM Dee Sotelo MA Not being able to stop [...] Not difficult at all 05/11/2025 11:36 AM EST Dee Bai MA documented as of this encounter Plan of Treatment Upcoming Encounters Date Type Department Care Team (Late st Contact Info) Description 06/08/2025 2:15 PM EST Office Visit [facility] ADULT DENTAL [address] [place] [address] Karen Shannon [address] [place] [address] 08/10/2025 10:45 AM EDT Office Visit [facility] MEDICINE [address] [place] [address] Faith Mason MD [address] [place] [address] documented as of this encounter Goals Goal [...] neuropathy Care Plan Patient has diabetic neuropathy Gloria Lozano Weekly blood pressure task Care [...] neuropathy Care Plan Patient has diabetic neuropathy Gloria Lozano Weekly blood pressure task Care [...] Plan Weekly blood pressure task No Dee Hernandez MA Weekly blood pressure task Care Plan Weekly blood pressure task No Dee Hernandez MA Weekly blood pressure task Care Plan Weekly blood pressure task No Dee Hernandez MA Patient has chronic kidney disease Care Plan Patient has chronic kidney disease No Dee Hernandez MA Patient has chronic kidney disease Care Plan Patient has chronic kidney disease No Dee Hernandez MA Patient has chronic kidney disease Care Plan Patient has chronic kidney disease No Dee Hernandez MA Patient has diabetic neuropathy Care Plan Patient has diabetic neuropathy No Dee Hernandez MA Patient has diabetic neuropathy Care Plan Patient has diabetic neuropathy No Dee Hernandez MA Patient has diabetic neuropathy Care Plan Patient has diabetic neuropathy No Dee Hernandez MA Weekly blood pressure task Care Plan Weekly blood pressure task No Marleni Riggins LPN Weekly blood pressure task Care Plan Weekly blood pressure task No Marleni Riggins LPN Weekly blood pressure task Care Plan Weekly blood pressure task No Marleni Riggins LPN Patient has chronic kidney disease Care Plan Patient has chronic kidney disease No Marleni Riggins LPN Patient has chronic kidney disease Care Plan Patient has chronic kidney disease No Marleni Riggins LPN Patient has chronic kidney disease Care Plan Patient has chronic kidney disease No Marleni Riggins LPN Patient has diabetic neuropathy Care Plan Patient has diabetic neuropathy No Marleni Riggins LPN Patient has diabetic neuropathy Care Plan Patient has diabetic neuropathy No Marleni Riggins LPN Patient has diabetic neuropathy Care Plan Patient has diabetic neuropathy No Marleni Riggins LPN documented as of this encounter Visit Diagnoses Diagnosis Seborrheic dermatitis Unspecified seborrheic dermatitis Right arm pain Pain in soft tissues [...] Time PHQ-9 Depression Total Score: 8 05/11/20 25 11:36 AM EST documented as of this encounter Care Teams Security Systems Administrator Relationship Specialty Start Date End Date Faith Mason MD [address] [place] [phone] PCP - General Family Medicine 04/12/19 Linda Peralta Cloth MenderRoll Forming Machine Set Up Mechanic 06/08/24 documented as of this encounter
--- OUTSIDE RECORDS SUMMARY | 2025-05-11 19:46 | XMS_ITS | Encounter Summary ---
Author Organization [employer] Address 75 [facility] 7t [place] [address] Care Team Providers Care Groundsman Name Role Phone Faith Mason MD Primary Care Provide r Encounter Details Date Type Department Care Team (Late st Contact Info) Description 07/17/[address] [facility] MEDICINE [address] [place], [place] [phone] Faith Mason MD [address] [place], [place] [phone] Social History Tobacco Use Types Packs/Day Years [...] the past 12 months, has t he [email or web address], [employer], oil or water [employer] threatened to shut off services in your [...] Description 06/08/2025 2:15 PM EST Office Visit [facility] ADULT DENTAL [address] [place] [address] Shiva Karen [address] [place] [address] 08/10/2025 10:45 AM EDT Office Visit [facility] MEDICINE [address] [place] [address] Faith Mason MD [address] [place] [address] documented as of this encounter Visit Diagnoses Not on filedocumented in this encounter Additional Health Concerns Assessment Noted Time PHQ-9 Depression Total Score: 14 023 2:21 PM EDT documented as of this encounter Care Teams Groundsman Relationship Specialty Start Date End Date Faith Mason MD [address] [place] [phone] PCP - General Family Medicine 04/12/19 Linda Peralta Machine Operator TransplanterTraveling Accountant 06/08/24 documented as of this encounter
--- OUTSIDE RECORDS SUMMARY | 2025-05-11 19:46 | XMS_ITS | Encounter Summary ---
Author Organization [employer] Address 75 [facility] 7t [place] [address] Care Team Providers Care Chaperon Name Role Phone Faith Mason MD Primary Care Provide r Reason for Visit * Reason Comments Med Refill Encounter Details Date Type Department Care Team ([facility] st Contact Info) Description 06/24/2023 Refill [facility] MEDICINE [address] [place], [place] [phone] Faith Mason MD 230 [place], [place] [phone] Social History Tobacco Use Types Packs/Day Years [...] Description 06/08/2025 2:15 PM EST Office Visit [facility] ADULT DENTAL [address] [place] [address] Shiva, Karen [address] [place] [address] 08/10/2025 10:45 AM EDT Office Visit [facility] MEDICINE [address] [place] [address] Faiht Mason MD [address] [place] [address] documented as of this encounter Visit Diagnoses Not on filedocumented in this encounter Additional Health Concerns Assessment Noted Time PHQ-9 Depression Total Score: 14 023 2:21 PM EDT documented as of this encounter Care Teams Chaperon Relationship Specialty Start Date End Date Faith Mason MD [address] [place] [phone] PCP - General Family Medicine 04/12/19 Linda Peralta Jewelry FacerSolar Energy Technician 06/08/24 documented as of this encounter
--- OUTSIDE RECORDS SUMMARY | 2025-05-11 19:46 | XMS_ITS | Encounter Summary ---
Author Organization [employer] Address [address] [facility] [address] 7t [place] [address] Care Team Providers Care Embossing Unit Operator Name Role Phone Faith Mason MD Primary Care Provide r Encounter Details Date Type Department Care Team (Latest Contact Info) Description 05/11/2025 Travel Social History Tobacco Use Types Packs/Day [...] Lim [place] documented as of this encounter Plan of Treatment Upcoming Encounters Date Type Department Care Team (Late st Contact Info) Description 06/08/2025 2:15 PM EST Office Visit [facility] ADULT DENTAL [address] [place] [address] Karen Shannon [address] [place] [address] 08/10/2025 10:45 AM EDT Office Visit [facility] MEDICINE [address] [place] [address] Faith Mason MD [address] [place] [address] documented as of this encounter Goals Goal [...] documented as of this encounter Care Teams Embossing Unit Operator Relationship Specialty Start Date End Date Faith Mason MD [address] [place] [address] PCP - General Family Medicine 04/12/19 Linda Peralta Remedy DeveloperAids Social Worker 06/08/24 documented as of this encounter
--- OUTSIDE RECORDS SUMMARY | 2025-05-11 19:46 | XMS_ITS | Encounter Summary ---
Author Organization [employer] Address 75 [facility] 7t [place] [address] Care Team Providers Care Cutting Machine Operator Helper Name Role Phone Faith Mason MD Primary Care Provide r Reason for Visit * Reason Comments Med Refill Encounter Details Date Type Department Care Team ([facility] st Contact Info) Description 08/11/[address] [facility] MEDICINE [address] [place], [place] [phone] Faith Mason MD [address] [place], [place] [phone] Social History Tobacco Use Types Packs/Day Years [...] 06/08/2025 2:15 PM EST Office Visit [facility] ADULT DENTAL [address] [place] [address] Shiva, Karen [address] [place] [address] 08/10/2025 10:45 AM EDT Office Visit [facility] MEDICINE [address] [place] [address] Faith Mason MD [address] [place] [address] documented as of this encounter Visit Diagnoses Not on filedocumented in this encounter Additional Health Concerns Assessment Noted Time PHQ-9 Depression Total Score: 14 023 2:21 PM EDT documented as of this encounter Care Teams Cutting Machine Operator Helper Relationship Specialty Start Date End Date Faith Mason MD [address] [place] [phone] PCP - General Family Medicine 04/12/19 Linda Peralta Agricultural Extension AgentStudy Hall Supervisor 06/08/24 documented as of this encounter
--- OUTSIDE RECORDS SUMMARY | 2025-05-11 19:46 | XMS_ITS | Encounter Summary ---
Author Organization [employer] Address [address] [facility] 7t [place] [address] Care Team Providers Care Construction Craft Laborer Name Role Phone Faith Mason MD Primary Care Provide r Reason for Visit * Reason Comments Med Refill Encounter Details Date Type Department Care Team ([facility] st Contact Info) Description 09/25/2024 Refill [facility] MEDICINE [address] [place], [place] [phone] Faith Mason MD [address] [place], [place] [phone] Essential hypertension Social History Tobacco Use Types [...] Description 06/08/2025 2:15 PM EST Office Visit [facility] ADULT DENTAL [address] [place] [phone] Shiva, Karen [address] [place] [address] 08/10/2025 10:45 AM EDT Office Visit [facility] MEDICINE [address] [place] [address] Faith Mason MD [address] [place] [address] documented as of this encounter Visit Diagnoses Diagnosis Essential hypertension Unspecified essential hypertension documented in this encounter Additional Health Concerns Assessment Noted Time PHQ-9 Depression Total Score: 6 11/24/19 24 2:35 PM EDT documented as of this encounter Care Teams Construction Craft Laborer Relationship Specialty Start Date End Date Faith Mason MD [address] [place] [phone] PCP - General Family Medicine 04/12/19 Linda Peralta Seismograph ObserverExperimental Rocket Sled Mechanic 06/08/24 documented as of this encounter
--- OUTSIDE RECORDS SUMMARY | 2025-05-11 19:46 | XMS_ITS | Clinical Summary ---
Author Organization [facility] Address [address] [address] Phone Care Team Providers Care Residential Sales Rep Name Role Phone Ines Zamora MD Primary [...] ACO C3 ACO C3 ACO C[address] [place] [place] [address] C3 [facility] C3 ACO Care Teams Residential Sales Rep Relationship Specialty Start Date End Date Ines Zamora MD [address] [place] [address] [address] [place] [phone] PCP - General Internal Medicine 02/23/19 Additional Source Comments The information contained in this document represents components of the legal health record. It is not the complete legal health record.[facility]
--- OUTSIDE RECORDS SUMMARY | 2025-05-11 19:46 | XMS_ITS | Encounter Summary ---
Author Organization [employer] Address 75 [facility] 7t [place] [address] Care Team Providers Care Director Of Physiotherapy Services Name Role Phone Faith Mason MD Primary Care Provide r Reason for Visit * Reason Onset Date Comments FYI 08/13/2023 Encounter Details Date Type Department Care Team ([facility] st Contact Info) Description 08/13/2023 Telephone [facility] MEDICINE [address] [place], [place] [phone] Faith Mason MD [address] [place], [place] [phone] FYI Social History Tobacco Use Types Packs/Day [...] of today. Any questions contact Tameka at [phone] documented in this encounter Plan of Treatment Upcoming Encounters Date Type Department Care Team (Late st Contact Info) Description 06/08/2025 2:15 PM EST Office Visit [facility] ADULT DENTAL [address] [place] [address] Shiva, Karen [address] [place] [address] 08/10/2025 10:45 AM EDT Office Visit [facility] MEDICINE [address] [place] [address] Faith Mason MD [address] [place] [address] documented as of this encounter Visit Diagnoses Not on filedocumented in this encounter Additional Health Concerns Assessment Noted Time PHQ-9 Depression Total Score: 14 023 2:21 PM EDT documented as of this encounter Care Teams Director Of Physiotherapy Services Relationship Specialty Start Date End Date Faith Mason MD [address] [place] [address] PCP - General Family Medicine 04/12/19 Linda Peralta Resident Hall DirectorHemming And Tacking Machine Operator 06/08/24 documented as of this encounter
--- OUTSIDE RECORDS SUMMARY | 2025-05-11 19:46 | XMS_ITS | Encounter Summary ---
Author Organization [employer] Address [address] [place] [address] 7t [place] [address] Care Team Providers Care Software Lead Name Role Phone Faith Mason MD Primary Care Provide r Reason for Visit * Reason Comments Med Change Request Encounter Details Date Type Department Care Team ([facility] Contact Info) Description 11/28/2022 Refill [facility] MEDICINE [address] [place], [place] [phone] Faith Mason MD [address] [place] [address] Type 2 diabetes mellitus with hyperglycemia, with long-term current use of insulin ([facility]) Social History Tobacco Use Types Packs/Day Years [...] Department Care Team (Late Contact Info) Description 06/08/2025 2:15 PM EST Office Visit [facility] ADULT DENTAL [address] [place] [address] Karen Shannon [address] [place], [place] [phone] 08/10/2025 10:45 AM EDT Office Visit [facility] MEDICINE [address] [place] [address] Faith Mason MD [address] [place] [address] documented as of this encounter Visit Diagnoses Diagnosis Type 2 diabetes mellitus with hyperglycemia, with long-term current use of insulin (HCC) documented in this encounter Additional Health Concerns Assessment Noted Time PHQ-9 Depression Total Score: 14 023 2:21 PM EDT documented as of this encounter Care Teams Software Lead Relationship Specialty Start Date End Date Faith Mason MD [address] [place] [phone] PCP - General Family Medicine 04/12/19 Linda Peralta Body Shop TechnicianShip'S Surveyor 06/08/24 documented as of this encounter
--- OUTSIDE RECORDS SUMMARY | 2025-05-11 19:46 | XMS_ITS | Encounter Summary ---
Author Organization [employer] Address [address] [facility] 7t [place] [address] Care Team Providers Care Advertising Sales Executive Name Role Phone Faith Mason MD Primary Care Provide r Reason for Visit * Reason Comments Med Refill Encounter Details Date Type Department Care Team ([facility] st Contact Info) Description 04/04/[address] [facility] CHC MED & PEDS [address] [place], [place] [phone] Faith Mason MD [address] [place], [place] [phone] Essential hypertension Social History Tobacco Use Types [...] [facility] ADULT DENTAL [address] [place] [address] Shiva, Karen [address] [place] [address] 08/10/2025 10:45 AM EDT Office Visit [facility] MEDICINE [address] [place] [phone] Faith Mason MD [address] [place] [phone] documented as of this encounter Visit Diagnoses Diagnosis Essential hypertension Unspecified essential hypertension documented in this encounter Additional Health Concerns Assessment Noted Time PHQ-9 Depression Total Score: 6 11/24/19 24 2:35 PM EDT documented as of this encounter Care Teams Advertising Sales Executive Relationship Specialty Start Date End Date Faith Mason MD [address] [place] [phone] PCP - General Family Medicine 04/12/19 Linda Peralta Global Compensation DirectorGyroscope Repairer 06/08/24 documented as of this encounter
--- OUTSIDE RECORDS SUMMARY | 2025-05-11 19:46 | XMS_ITS | Encounter Summary ---
Author Organization [employer] Address [address] [facility] 7t [place] [address] Care Team Providers Care Air And Water Tester Name Role Phone Faith Mason MD Primary Care Provide r Reason for Visit * Reason Comments Med Refill Encounter Details Date Type Department Care Team ([facility] st Contact Info) Description 11/18/2024 Refill [facility] MEDICINE [address] [place], [place] [phone] Faith Mason MD [address] [place], [place] [phone] Right arm pain; Numbness and tingling of [...] Description 06/08/2025 2:15 PM EST Office Visit [facility] ADULT DENTAL [address] [place] [address] Shiva, Karen [address] [place] [address] 08/10/2025 10:45 AM EDT Office Visit [facility] MEDICINE [address] [place] [address] Faith Mason MD [address] [place] [phone] documented as of this encounter Visit Diagnoses Diagnosis Right arm pain Pain in soft tissues of limb Numbness and tingling of right arm documented in this encounter Additional Health Concerns Assessment Noted Time PHQ-9 Depression Total Score: 6 11/24/19 24 2:35 PM EDT documented as of this encounter Care Teams Air And Water Tester Relationship Specialty Start Date End Date Faith Mason MD [address] [place] [phone] PCP - General Family Medicine 04/12/19 Linda Peralta Trade Promotion AnalystManager Client Support 06/08/24 documented as of this encounter
--- OUTSIDE RECORDS SUMMARY | 2025-05-11 19:46 | XMS_ITS | Encounter Summary ---
Author Organization [employer] Address 75 [facility] 7t [place] [address] Care Team Providers Care Wood Stainer Name Role Phone Faith Mason MD Primary Care Provide r Reason for Visit * Reason Comments Med Refill Encounter Details Date Type Department Care Team ([facility] st Contact Info) Description 04/05/2024 Refill [facility] CHC MED & PEDS [address] [place], [place] [phone] Faith Mason MD [address] [place], [place] [phone] Atrial flutter, unspecified type (CMS/HCC); Diabetic polyneuropathy [...] the past 12 months, has t he [employer], oil or water [employer] threatened to shut off services in your [...] 06/08/2025 2:15 PM EST Office Visit [facility] ADULT DENTAL [address] [place] [address] Shiva, Karen [address] [place] [address] 08/10/2025 10:45 AM EDT Office Visit [facility] MEDICINE [address] [place] [address] Faith Mason MD [address] [place] [address] documented as of this encounter Visit Diagnoses Diagnosis Atrial flutter, unspecified type (CMS/HCC) (HCC) Diabetic polyneuropathy associated with type 2 diabetes mellitus (HCC) documented in this encounter Additional Health Concerns Assessment Noted Time PHQ-9 Depression Total Score: 6 11/24/19 24 2:35 PM EDT documented as of this encounter Care Teams Wood Stainer Relationship Specialty Start Date End Date Faith Mason MD [address] [place] [address] PCP - General Family Medicine 04/12/19 Linda Peralta Port SurveyorCrop Grain Or Livestock Farm Manager 06/08/24 documented as of this encounter
--- OUTSIDE RECORDS SUMMARY | 2025-05-11 19:46 | XMS_ITS | Encounter Summary ---
Author Organization [employer] Address [address] [facility] 7t [place] [address] Care Team Providers Care Occupational Health Nurse Manager Name Role Phone Faith Mason MD Primary Care Provide r Reason for Visit * Reason Onset Date Comments Durable Medical Equipment 11/05/2023 Encounter Details Date Type Department Care Team (Late st Contact Info) Description 11/05/2023 Telephone [facility] MEDICINE [address] [place], [place] [phone] Faith Mason MD [address] [place], [place] [phone] Durable Medical Equipment Social History Tobacco Use [...] 11/05/2023 12:47 PM EDT Silver Mckeon at [facility] calling to request the following DME. Shower Chair Shower grab bars Wheel chair Rolator walker with seat documented in this encounter Plan of Treatment Upcoming Encounters Date Type Department Care Team (Late st Contact Info) Description 06/08/2025 2:15 PM EST Office Visit [facility] ADULT DENTAL [address] [place] [address] Shiva, Karen [address] [place] [address] 08/10/2025 10:45 AM EDT Office Visit [facility] MEDICINE [address] [place] [address] Faith Mason MD [address] [place] [address] documented as of this encounter Visit Diagnoses Not on filedocumented in this encounter Additional Health Concerns Assessment Noted Time PHQ-9 Depression Total Score: 14 023 2:21 PM EDT documented as of this encounter Care Teams Occupational Health Nurse Manager Relationship Specialty Start Date End Date Faith Mason MD [address] [place] [address] PCP - General Family Medicine 04/12/19 Linda Peralta Welding Process SpecialistElectronic Test Technician 06/08/24 documented as of this encounter
--- OUTSIDE RECORDS SUMMARY | 2025-05-11 19:46 | XMS_ITS | Clinical Summary ---
Author Organization [employer] Address [address] [place] [address] [address] [place] [address] Care Team Providers Care In Home Sales Representative Name Role Phone Faith Mason [...] 024 Active Blood Glucose Monitoring Suppl (FreeStyle [place] Lite) w/Device kitIndications:T ype 2 diabetes mellitus with hyperglycemia, with long-term current use of insulin (HCC) Use to test blood sugar 3 times daily 1 kit 04/01/2 024 Active TRUEplus Lancets 33G miscIndications: Type 2 diabetes mellitus with hyperglycemia, with long-term current use of insulin ([facility]) TEST BLOOD SUGAR THREE TIMES DAILY 100 each 11 Active levothyroxine (Synthroid, Levoxyl) 25 MCG tablet TAKE 1 TABLET BY MOUTH EVERY MORNING 90 tablet 3 Active omeprazole (PriLOSEC) [address] capsuleIndicatio ns:Gastroesophag eal reflux disease, unspecified whether esophagitis present Take 1 capsule (20 mg) by mouth before breakfast. Do not crush or chew. 30 capsule 11 Active insulin glargine (Toujeo Max SoloStar) 300 UNIT/ML injectionIndicat ions:Type 2 diabetes mellitus with hyperglycemia, with long-term current use of insulin ([facility]) INJECT 28 UNITS SUBCUTANEOUSLY EVERY DAY 6 mL 1 Active guaiFENesin 200 MG/10ML liquidIndication s:Acute cough Take 10 mL by mouth every 6 (six) hours if needed (take for cough if needed). 236 mL Active brimonidine (AlphaGAN) 0.2 % ophthalmic solution Administer 1 drop into the left eye 3 times daily. Active Continuous Glucose Lisw (FreeStyle Tika 3 [place]) device Use as directed Active Continuous Glucose [...] daily. Active Acetaminophen Extra Strength 500 MG tabletIndication s:Polyarthralgia TAKE 2 TABLETS BY MOUTH EVERY 8 HOURS NEEDED FOR MILD PAIN 30 tablet 2 01/07/2 025 Active Fiber-Lax 625 MG tabletIndication s:Constipation, unspecified constipation type TAKE 1 TABLET BY MOUTH EVERY MORNING 90 tablet 3 025 Active fluconazole (Diflucan) 150 MG tabletIndication s:Yeast infection Take one tablet then after 72 hours take another tablet 1 tablet 025 Active amoxicillin (Amoxil) 500 MG capsuleIndicatio ns:Dental [...] MOUTH EVERYDAY AT NOON 90 tablet 1 05/04/20 25 4:04 PM EST 025 Active D3 Super Strength 50 MCG (1999 UT) capsule TAKE 1 CAPSULE BY MOUTH EVERY MORNING 90 capsule 1 05/04/20 25 4:04 PM EST 025 Active apixaban (Eliquis) 5 MG tabletIndication s:Atrial flutter, unspecified type (CMS/HCC) (HCC) TAKE 1 TABLET BY MOUTH TWICE DAILY IN THE MORNING AND IN THE EVENING 60 tablet 3 05/04/20 25 4:04 PM EST 025 Active gabapentin (Neurontin) 300 MG capsuleIndicatio ns:Right arm pain,Numbness and tingling of right arm TAKE 1 CAPSULE BY MOUTH AT BEDTIME 30 capsule 2 05/04/20 25 4:04 PM EST 025 Active docusate sodium (Colace) 100 MG capsuleIndicatio ns:Other constipation TAKE 1 CAPSULE BY MOUTH TWICE DAILY 180 capsule 1 025 Active metoprolol tartrate (Lopressor) 25 MG tablet TAKE 1/2 TABLET BY MOUTH TWICE DAILY IN THE MORNING AND EVENING 90 tablet 1 025 Active melatonin 5 MG tabletIndication s:Primary insomnia TAKE 1 TABLET BY MOUTH AT BEDTIME FOR SLEEP 90 tablet 1 025 Active amLODIPine (Norvasc) 10 MG tabletIndication s:Essential hypertension TAKE 1 TABLET BY MOUTH EVERY MORNING 90 tablet 1 Active ketoconazole (NIZOral) 2 % shampooIndicatio ns:Seborrheic dermatitis APPLY TOPICALLY TO THE AFFECTED AREA(S) TWICE A WEEK 120 mL 2 Active Blood Glucose Monitoring Suppl (FreeStyle [place] Lite) w/Device kitIndications:T ype 2 diabetes mellitus with hyperglycemia, with long-term current use of insulin (HCC) Use to test blood sugar 2 times daily 1 kit Active Lancets miscIndications: Type 2 diabetes mellitus with hyperglycemia, with long-term current use of insulin (HCC) Use to test blood sugar 2 times daily 100 each Active Alcohol Swabs 70 % padsIndications: Type 2 diabetes mellitus with hyperglycemia, with long-term current use of insulin (HCC) Use to test blood sugar 2 times daily 100 each Active FREESTYLE LITE test stripIndications :Type 2 diabetes mellitus with hyperglycemia, with long-term current use of insulin ([facility]) Use to test blood sugar 2 times daily 100 each 12 025 2025 Active zoster vaccine-recombin ant adjuvanted (Shingrix) 50 MCG/0.5ML vaccineIndicatio ns:Type 2 diabetes mellitus with hyperglycemia, with long-term current use of insulin (HCC) Inject 0.5 mL (50 mcg) into the muscle 1 (one) time for 1 dose. 0.5 mL 2024 Active RSV Pre-Fusion F A&B Vac Rcmb (Abrysvo) 120 MCG/0.5ML reconstituted solutionIndicati ons:Type 2 diabetes mellitus with hyperglycemia, with long-term current use of insulin (HCC) Inject 0.5 mL (120 mcg) into the muscle 1 (one) time for 1 dose. 0.5 mL 025 2024 Active ketoconazole (NIZOral) 2 % shampooIndicatio ns:Seborrheic dermatitis APPLY TOPICALLY TO THE AFFECTED AREA(S) TWICE A WEEK 120 mL 2 05/04/20 25 4:04 PM EST 2024 Discontinued Active Problems Patient Care Coordination [...] 01/19/2025 Acute hyperkalemia 01/19/2025 AF (atrial fibrillation) ([facility]) 01/19/2025 Anemia of chronic kidney failure 01/19/2025 [...] 01/19/2025 AMARJIT on CPAP 01/19/2025 Pulmonary HTN ([facility]/HCC) 01/19/2025 Obesity due to excess calories 01/19/2025 Severe obesity (BMI 35.0-39.9) with comorbidity ([facility]) 01/19/2025 Unstable angina ([facility]) 01/19/2025 Chest pain 01/19/2025 CAD (coronary artery disease) 01/19/2025 Chronic kidney disease with end stage renal failure on dialysis ([facility]) 01/19/2025 Acid reflux 01/19/2025 Overview (01/19/2025): EGD-r/o [...] AM EST): -Currently followed by [facility] - last available consult note Jan 2022 w/ Dr. Miller -Continues with current med regimen: -Januvia 25mg PO daily -Tuojeo insulin 28 units subcutaneous daily -Lispro AC per SS -Dexcom ordered and managed through [facility] -Strongly encourage pt to schedule follow [...] remission 09/02/2018 Coronary artery disease invo lving [place] coronary artery of [place] heart with unstable angina pectoris 06/03/2018 Calculus [...] Encounters Date Type Department Care Team Description 05/11/2025 10:45 AM EST Office Visit [address] [address] Faith Mason MD Vaginal discharge (Primary Dx); Type 2 diabetes mellitus with hyperglycemia, with long-term current use of insulin (HCC); Pulmonary HTN (CMS/HCC) (HCC); Chronic atrial fibrillation (CMS/HCC) (HCC); Mild intermittent asthma, unspecified whether complicated; Dietary counseling; Exercise counseling; Class 2 severe obesity due to excess calories with serious comorbidity and body mass index (BMI) of 37.0 to 37.9 in adult; Encounter for immunization 05/11/2025 Travel 05/11/[address] [address] Faith Mason MD Seborrheic dermatitis; Right arm pain; Numbness and tingling of right arm 05/10/[address] [address] Faith Mason MD Chart Prep 05/02/2025 Patient Outreach [address] [address] Faith Mason MD Pre-visit Planning (SDOH screening completed on 01/16/2025) 03/26/2025 Refill [facility] [address] [place], [place] [phone] Faith Mason MD Primary insomnia; Essential hypertension 03/21/2025 Orders Only GENERIC EXTERNAL DATA DEPARTMENT Provider, Generic External Data 03/14/[address] [address] Faith Mason MD Medication Question 02/24/2025 Refill [facility] [address] [place], [place] [phone] Faith Mason MD Other constipation; Seborrheic dermatitis 02/23/2025 Orders Only GENERIC EXTERNAL DATA DEPARTMENT Provider, Generic External Data 02/23/2025 Refill [facility] [address] [place], [place] [phone] Faith Mason MD Atrial flutter, unspecified type (CMS/HCC) (HCC); Right arm pain; Numbness and tingling of right arm 02/16/2025 Telephone [facility] [address] [place], [place] [phone] Faith Mason MD Dec recall from Last 3 Months Immunizations Immunization Administration Dates Next Due Hep B, adult 11/12/2018 Influenza injectable quadriv alent IIV4 with preservative 02/27/2023 Influenza injectable quadrivalent preservative f ree 06/03/2018,03/26/2018 Influenza, IIV3, injectable 03/14/2024 Influenza, Unspecified 02/11/2019 Pfizer Covid-19 Vaccine 12+ 05/11/2025 Pneumococcal Polysaccharide PPSV23 04/05/2019 Varicella 03/17/2024 Social [...] Mass Index 37.2 05/11/2025 10:53 AM EST Plan of Treatment Upcoming Encounters Date Type Department Care Team (Late st Contact Info) Description 06/08/2025 2:15 PM EST Office Visit [facility] [address] [place] [address] Karen Shannon [address] [place] [address] 08/10/2025 10:45 AM EDT Office Visit [facility] [address] [place] [address] Faith Mason MD [address] [place] [phone] Health Maintenance Due Date Last Done Comments CT Colonography 1965 Colonoscopy 1966 Dental Prophylaxis 1965 FIT 1965 Sigmoidoscopy 1965 Disability Screening 1966 Diabetes: Foot Exam 1976 Eye Exam 1976 DTaP/Tdap/Td Vaccines (1 - Tdap) 1985 RSV Patients and Patients Aged 60 years or older (1 - Risk 50-74 years 1-dose series) 2016 Hepatitis B Vaccines (2 of 3 - 19+ 3-dose series) 12/10/2018 11/12/2018 Diabetes: Urine Protein Screening 07/23/2021 07/23/2020, 07/23/2020 Zoster Vaccines (1 of 2) 05/12/2024 FOBT 09/16/2024 09/17/2023 Lipid Panel 11/30/2024 12/01/2023, 09/09/2022 Dental Oral Exam 03/23/2025 09/20/2024, 06/29/2008 Mammogram 07/18/2025 07/18/2024, 06/26, 02/01/2020 Diabetes: Hemoglobin A1C 08/09/2025 025, 01/24/2025, 11/23/2024, Additional history exists Dental X-Ray: Bitewings 09/21/2025 09/21/19 25, 01/22/2023, 06/24/2019, Additional history exists SDOH Screening 01/16/2026 01/16/2025 Tobacco Screening 01/25/2026 01/25/2025 Alcohol/Substance Use Screening 05/11/2026 05/11/2025 Depression Screening 05/11/2026 05/11/2025, 05/11/20 Colorectal Cancer Screening 09/16/2026 FIT DNA/Cologuard 09/16/2026 09/17/2023 Dental X-Ray: Full Mouth 09/22/2027 09/20/2024 Cervical Cancer Screening 08/23/2029 HPV/Cotest 08/23/2029 08/23/2024, 09/23, 07/25/2020 Pap Smear 08/23/2029 08/23/2024, 09/23, 07/25/2020 HIV Screening Completed 01/31/2025, 01/26/2024 Hepatitis C Screening Completed 01/31/2025, 024 Influenza Vaccine Completed 02/15/2025, , 02/27/2023, Additional history exists Pneumococcal Vaccine: 50+ Years Completed 02/24/2025, 04/05/2019 COVID-19 Vaccine Completed 05/11/2025, , 05/07/2021, Additional history exists HIB Vaccines Aged Out [...] on patient's age to complete this topic Goals Goal Patient Goal Type Associated Problems Recent Progress Patient-Stated? Author Help patients manage their type 2 diabetes Care Plan Help patients manage their type 2 diabetes Gloria Lozano Weekly blood pressure task Care Plan Weekly blood pressure task Gloria Lozano Help patients manage their type 2 diabetes Care Plan Help patients manage their type 2 diabetes Gloria Lozano Patient has chronic kidney disease Care Plan Patient has chronic kidney disease Gloria Lozano Help patients manage their type 2 diabetes Care Plan Help patients manage their type 2 diabetes Gloria Lozano Patient has diabetic neuropathy Care Plan Patient has diabetic neuropathy Gloria Lozano Weekly blood pressure task Care Plan Weekly blood pressure task Gloria Lozano Weekly blood pressure task Care [...] Weekly blood pressure task No Gilson, 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, 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 Patient has chronic kidney disease Care Plan Patient has chronic kidney disease No Marleni Riggins LPN Patient has chronic kidney disease Care Plan Patient has chronic kidney disease No Marelni Riggins LPN Patient has chronic kidney disease Care Plan Patient has chronic kidney disease No Marleni Riggins LPN Patient has diabetic neuropathy Care Plan Patient has diabetic neuropathy No Marleni Riggins LPN Patient has diabetic neuropathy Care Plan Patient has diabetic neuropathy No Marleni Riggins LPN Patient has diabetic neuropathy Care Plan Patient has diabetic neuropathy No Marleni Riggins LPN Procedures Procedure Name Priority Date/Time Associated Diagnosis Comments POCT GLYCATED HEMOGLOBIN, TOTAL Routine 05/11/2025 10:58 AM EST Type 2 diabetes mellitus with hyperglycemia, with long-term current use of insulin (HCC) POCT GLUCOSE Routine 05/11/2025 10:57 AM EST Type 2 diabetes mellitus with hyperglycemia, with long-term current use of insulin (HCC) AMB REFERRAL TO ENT Routine 03/28/2025 Chronic frontal sinusitis DECALCIFICATION Routine 03/21/2025 11:18 AM EDT CULTURE, FUNGAL (SKIN,NAIL,HAIR) Routine 03/21/2025 10:29 AM EDT GLUCOSE, WHOLE BLOOD Routine 02/23/2025 10:49 AM EDT HEPATITIS PANEL, GENERAL Routine 01/31/2025 2:07 PM EDT Vaginal discharge HIV 1/2 ANTIGEN/ANTIBODY, FOURTH GENERATION W/RFL Routine 01/31/2025 2:07 PM EDT Vaginal discharge INTRAORAL - COMPLETE SERIES OF RADIOGRAPHIC IMAGES [...] to Health Maintenance Results * (ABNORMAL) POCT Hgb A1c (05/11/2025 10:58 AM EST) Hemoglobin A1C 7.5(A) 4.0 - 5.7 % QC Media Lot # [id number] Lot# Expiration Date 52,327 Blood 05/11/2025 10:5 8 AM EST us Faith No MD POINT OF CARE TEST EN TER/EDIT ORDERABLES Final Result * POCT Glucose (05/11/2025 10:57 AM EST) Glucose Blood, POC 200 60 - 200 mg/dL QC Media Lot # [id number] Lot# Expiration Date 31,126 Blood Capillary blood specimen / Unknown 05/11/2025 10:57 AM EST us Faith No MD POINT OF CARE TEST EN TER/EDIT ORDERABLES Final Result * Referral to ENT (03/28/2025) Result Denia No MD OUTPATIENT REFERRAL O RDERABLES Final Result * Decalcification (03/21/2025 11:18 AM EDT) 03/21/2025 11:1 8 AM EDT 03/22/2025 7:04 AM EDT [facility] - 03/24/2025 10:45 AM EDT ----- ------- Name: Sarah Dixon Age/Sex: 60/F : 1965 Unit#: [id number] Attend Dr: Iglesia Coyne DPM Re03/21/25 Status: [facility] REF Location: [facility] Disch: ----- ------- SPEC : [id number] RECD: 03/22/25 STATUS: FELA MADRIGALBrannon NUM: [id number] NADJA: 03/21/251118 [facility] DR: Iglesia Coyne DPM ENTERED: 03/22/25 SP [...] developed and their performance characteristics determined by [facility]. They have not been cleared or approved by the U.S. Food and Drug Administration (FDA). However, the FDA has determined that such clearance or approval is not necessary. This laboratory is certified under the Clinical Laboratory Improvement Amendments of 1988 (CLIA) as qualified to perform high complexity clinical laboratory testing. Copies To: Faith Mason MD [address] [address] CONTINUED ON NEXT PAGE ----- ------- Name: Sarah Dixon Age/Sex: 60/F : 1965 Unit#: [id number] Attend Dr: Iglesia Coyne DPM Re03/21/25 Status: DEP REF Location: HO.LNP Disch: ----- ------- SPEC : [id number] RECD: 03/22/25 STATUS: FELA UMAÑA NUM: [id number] NADJA: 03/21/2511[address]: Iglesia Coyne DPM ENTERED: 03/22/25 SP TYPE: Surgical OTHR DR: Faith Mason MD ORDERED: Decal, Gross Micro L3, Specials Gr. 1, PASF Copies To: (Continued) Iglesia Coyne [facility] [address] [place] [address] [email or web address] ----- ------- Signed (signature on file) Che Mayer MD 03/24/25 1045 ----- ------- END OF REPORT Generic External Data Provider HISTORICAL/NON OR DERABLE LABS Final Result [facility] [address] [place] [phone] * Culture, Fungal (Skin,Nail, Hair) (03/21/2025 10:29 AM EDT) 03/21/2025 10:2 9 AM EDT 03/21/2025 6:54 PM EDT Comment:Nail Narrative [facility] - 04/22/2025 11:40 AM EST Kym parapsilosis null Test performed by: [facility] [address] [place] [address], [facility] floor, [place] [address] Director: Marva White MD CLIA: [id number] Fungus Smear Hair/Skin/Nail null Fungus Smear Hair/Skin/Nail null Fungus Smear Hair/Skin/Nail null Fungus Smear Hair/Skin/Nail null Fungus Smear Hair/Skin/Nail null Fungus Smear Hair/Skin/Nail null Fungus Smear Hair/Skin/Nail null Fungus Smear Hair/Skin/Nail null Specimen Source: Nail Generic External Data Provider LAB MICROBIOLOGY - GENERAL ORDERABLES Final Result Performing Organization Address [facility]/ZIP Co de Phone Number [facility] [address] [place] [phone] * (ABNORMAL) Glucose, Whole Blood (02/23/2025 10:49 AM EDT) Glucose, Whole Blood 289(H) 60 - 115 mg/dL [facility] Comment:METER #: [id number] 0Testing performed in the Endocrinology Department [address], [address], [facility]. 02/23/2025 10:4 9 AM EDT 02/23/2025 10:55 AM EDT Generic External Data Provider LAB BLOOD ORDERAB LES Final Result Performing Organization Address [facility] Co de Phone Number [facility] [address] [place] [phone] * Hepatitis A,B,C Profile (01/31/2025 2:07 PM EDT) Hepatitis A IgM Nonreactive Nonreactive [facility] Comment:IgM antibodies to CARTWRIGHT V not detected; does not exclude earlyacute or recovered HAV infection. ~Hepatitis B Surface Antibody REACTIVE Nonreactive [facility] Comment:REACTIVE: > 11.99 mI U/mL Hepatitis B Core Antibody Nonreactive Nonreactive [facility] Hepatitis C Antibody Nonreactive Nonreactive [facility] Comment:Antibodies to HCV no t detected; does not exclude early acuteHCV infection. Hepatitis B Surface Ag Negative Negative [facility] Blood Venous blood specimen / Unknown 01/31/2025 2:07 PM EDT 01/31/2025 4:09 PM EDT us Faith No MD LAB BLOOD ORDERABLES Final Result Performing Organization Address [facility] Co de Phone Number [facility] [address] [place] [phone] * HIV-1/2 Antigen and Antibodies, Fourth Generation, with Reflexes (01/31/2025 2:07 PM EDT) Pathologist [facility] HIV AB/AG Nonreactive Nonreactive [facility] Comment:HIV-1 p24 Ag and/or HIV-1/HIV-2 Ab not detected.A test result that is nonreactive does not exclude thepossibility of exposure to or infection with HIV-1 and/orHIV-2. Nonreactive results in this assay for individualswith prior exposure to HIV-1 and/or HIV-2 may be due toantigen and antibody levels that are below the limit ofdetection of this assay.[employer] HIV Ag/Ab Combo assay result andsupplemental assay results should be interpreted inconjunction with the patient's clinical presentation,history and other laboratory results. If the results areinconsistent with clinical evidence, additional testing issuggested to confirm the result. Blood Venous blood specimen / Unknown 01/31/2025 2:07 PM EDT 01/31/2025 4:09 PM EDT us Faith No MD LAB BLOOD ORDERABLES Final Result Performing Organization Address [facility]/ZIP Co de Phone Number [facility] [address] [place] [phone] * HPV DNA, Low/High Risk (08/23/2024 12:00 AM EDT) Pathologist [facility] HPV High Risk Negative Negative [facility] HPV Genotype 16 Negative Negative [facility] HPV Genotype 18 Negative Negative [facility] Comment:HPV testing performe d at [facility] (CLIA#[id number]), [address] [place] [address].Testing for HPV was performed using the Mike [...] BLOOD ORDERABLES Final Result Performing Organization Address City/State/[facility] Co de Phone Number [facility] [address] [place] [phone] * Pap Smear (08/23/2024 12:00 AM EDT) Swab 08/23/2024 08/24/2024 6:0 0 AM EDT Narrative [facility] - 08/29/2024 1:23 PM EDT ----- ------- Name: Sarha Dixon Age/Sex: 59/F : 1965 Unit#: [id number] Attend Dr: Faith Mason MD Re08/23/24 Status: DEP REF Location: HO.HHCLNP Disch: ----- ------- SPEC : [id number] RECD: 08/24/24 STATUS: FELA UMAÑA NUM: [id number] NADJA: 08/23/24-[address]: Faith Mason MD [...] MD LAB CYTOLOGY ORDERABL ES Final Result [facility] [address] [place] [phone] * BI Mammogram Screening Tomosynthesis Bilateral (07/18/2024 11:24 AM EST) Anatomical Region Laterality Modality Breast Bilateral Mammography 07/18/2024 11:2 4 AM EST Narrative 07/23/2024 12:27 PM EST [facility] [address] [place] [address] Mammography Report Signed Patient: Sarah Dixon MR#: [id number] : 1965 Acct:[id number] Age/Sex: 59 / F ADM Date: 07/18/24 Loc: HO.MAMMO Attending Dr: Faith No MD Ordering Physician: Faith Mason MD Results: 1Negative Date of Service: 07/18/24 Follow Up: 1 Year From Orig inal Mammogram Procedure(s): MM tomosynthesis screening BI Accession Number(s): [id number] cc: Faith Mason MD EXAMINATION: MM SCREENING [...] 07/23/24 1223 DD/ 1124 TD/TT: 07/18/24 1124 Automation Control Technician: Procedure Note Donotuseinterpreter, Image - 07/23/2024 [facility] [address] [place] [address] [place] [address] Mammography Report Signed Patient: Vidal Dixon#: [id number] : 1965Acct:[id number] Age/Sex: 59 / FADM Date: 07/18/24 Loc: HO.MAMMO Attending Dr: Faith No MD Ordering Physician: Faith Mason MDResults: 1Negative Date of Service: 07/18/24Follow Up: 1 Year From Orig inal Mammogram Procedure(s): MM tomosynthesis screening BI Accession Number(s): [id number] cc: Faith Mason MD EXAMINATION: MM SCREENING [...] 07/23/24 1223 DD/ 1124 TD/TT: 07/18/24 1124 Automation Control Technician: us Faith No MD IMG BI PROCEDURES Yoshi telma Result - Final * (ABNORMAL) Lipid Panel with Reflex to Direct LDL (12/01/2023 1:06 PM EDT) Triglycerides 81 <150 mg/dL [facility] Comment:Desirable Triglyceri de: less than 150 mg/dLBorderline High Triglyceride 150-199 mg/dLHigh Triglyceride: 200-499 mg/dLVery High Triglyceride: greater than or equal to 5OO mg/dL Cholesterol 77 <200 mg/dL [facility] Comment:Desirable Cholestero l: less than 200 mg/dLBorderline High Cholesterol: 200-239 mg/dLHigh Cholesterol: greater than 239 mg/dL LDL Cholesterol Calculated 30 <100 mg/dL [facility] Comment:Desirable LDL: less than 100 mg/dLNear Optimal/Above Optimal LDL: 110- 129 mg/dLBorderline High LDL: 130-159 mg/dLHigh LDL: 160-189 mg/dLVery High LDL: greater than or equal to 190 mg/dL HDL Cholesterol 31(L) >40 mg/dL [facility] Comment:Desirable HDL: great er than 40 mg/dL Note: This HDL assay may give artificially low results in patients with liver disease. Blood 12/01/2023 1:06 PM EDT 12/01/2023 1:11 PM EDT Faith No MD LAB BLOOD ORDERABLES Final Result [facility] [address] [place] [phone] * Cologuard?? colon cancer screening (09/17/2023 12:00 PM EDT) Cologuard Result Negative Negative 09/25/19 10:09 AM EDT [facility] (CLIA #:[id number]) Comment: NEGATIVE TEST RESULT. A negative Cologuard [...] (Kacey Jalloh al, N Engl J Med 2014;370(14):0312-6547) The normal value (reference range) for this assay is negative. COLOGUARD RE-SCREENING RECOMMENDATION: Periodic colorectal cancer screening is an important part of preventive healthcare for asymptomatic individuals at average risk for colorectal cancer. Following a negative Cologuard result, the [place] Cancer Society and U.S. Multi-Society Task Force screening guidelines recommend a Cologuard re-screening interval of 3 years. References: [place] Cancer Society Guideline for Colorectal Cancer Screening: https://www.cancer.org/cancer/fdnvl-sxhhxx-kbfmvt/uorbaixaf-pwqkmvirk-myzceuj/ac s-rec ommendations.html.; Maxi DK, Robinson REESE, Barry TateK, Colorectal Cancer Screening: Recommendations for Physicians and Patients from the [place]. Multi-Society Task Force on Colorectal Cancer Screening , Am J Gastroenterology 2017; 112:5240-3712. TEST DESCRIPTION: Composite algorithmic analysis of stool [...] colonoscopy. (Kacey Ramirez, N Engl J Med 2014;370(14):0363-6033.) Cologuard may produce a false negative or false positive result (no colorectal cancer or precancerous polyp present at colonoscopy follow up). A negative Cologuard test result does not guarantee the absence of CRC or advanced adenoma (pre-cancer). The current Cologuard screening interval is every 3 years. (Canadian Cancer Society and [place] Multi-Society Task Force). Cologuard performance data in a 10,000 patient pivotal study using colonoscopy as the reference method can be accessed at the following location: [email or web address]/results. Additional description of the Cologuard test process, warnings and precautions can be found at [email or web address]. Stool specimen (specimen) 09/17/2023 12:00 PM EDT 09/18/2023 10:51 AM EDT Faith No MD LAB MOLECULAR DIAGNOS TICS ORDERABLES Final Result Performing Organization Address City/[facility] Co de Phone Number [employer] (CLIA #:[id number]) [place] [address], * MICROALBUMIN, RANDOM (07/23/2020 9:00 AM EST) Creatinine Urine 140.39 mg/dL [facility] Microalbum/Creati nine Ratio Ur 419.5 ug/mg cr [facility] Comment: Albumin/Creatinine Ratio Reference Ranges: Normal: < 30 ug/mg creatinine Microalbuminuria: 30 - 300 ug/mg creatinine Clinical Albuminuria: > 300 ug/mg creatinine Microalbumin Urine 589.0 mg/L [facility] 07/23/2020 9:00 AM EST Historical Provider HISTORICAL/NON ORDERABLE LABS Final Result Performing Organization Address City/[facility] Co de Phone Number [facility] [address] [place] [address], from Last 3 Months or Most Recently Relevant to Health Maintenance Additional Health Concerns Active Problems Noted Date [...] neuropathy 05/11/2025 Patient has diabetic neuropathy 05/11/[address] ONE[place], RACHEL [id number] [facility] C[place] AD[place] * Guarantor: Sarah Dixon Account Type Relation to Patient Date of Phone Billing Address Personal/Family Self [address] [place] Care Teams In Home Sales Representative Relationship Specialty Start Date End Date Faith Mason MD [address] [place] [phone] PCP - General Family Medicine 04/12/19 Linda Peralta Chopped Strand OperatorYarder 06/08/24
--- OUTSIDE RECORDS SUMMARY | 2025-05-11 19:46 | XMS_ITS | Clinical Summary ---
Author Organization [facility] Address [address] [place] [address] [place] [phone] Phone Care Team Providers Care Aircraft Structure Mechanic Name Role Phone Ines Zamora MD Primary Care Provider + [phone] Medications lisinopril 10 MG tabletIndicatio ns:Stage 3 chronic kidney disease, not otherwise specified (HCC),Type 2 diabetes mellitus with diabetic chronic kidney disease (HCC),Iron deficiency anemia, not otherwise specified,Hyper tension TAKE 1 TABLET BY MOUTH AT BEDTIME (for high blood pressure) 30 tablet 12/11/2021 Active gabapentin (NEURONTIN) 100 MG capsule TAKE 2 CAPSULES BY MOUTH TWICE DAILY IN THE MORNING AND AT BEDTIME (for nerve pain) 120 capsule 02/02/2023 Active hydrALAZINE 50 MG tablet TAKE 1 TABLET BY MOUTH THREE TIMES DAILY IN THE MORNING, AT NOON, AND IN THE EVENING (for high blood pressure) 90 tablet 11 05/05/2023 Active sevelamer carbonate (RENVELA) 800 MG tablet TAKE 2 TABLETS BY MOUTH THREE TIMES DAILY IN THE MORNING, AT NOON AND THE EVENING WITH FOOD 180 tablet 11 03/20/2025 Active Encounters Date Type Department Care Team Description 04/28/2025 Treatment [facility] [address] [phone] Jeffy Tineo MD End stage renal disease; Dependence on renal dialysis 04/24/2025 Treatment [facility] [address] [phone] Jeffy Tineo MD End stage renal disease; Dependence on renal dialysis 04/22/2025 Treatment [facility] [address] [phone] Jeffy Tineo MD End stage renal disease; Dependence on renal dialysis 04/10/2025 Treatment [facility] [address] [phone] Jeffy Tineo MD End stage renal disease; Dependence on renal dialysis 04/07/2025 Treatment [facility] [address] [phone] Jeffy Tineo MD End stage renal disease; Dependence on renal dialysis 04/03/2025 Treatment [facility] [address] [phone] Jeffy Tineo MD End stage renal disease; Dependence on renal dialysis 03/27/2025 Treatment [facility] [address] [phone] Jeffy Tineo MD End stage renal disease; Dependence on renal dialysis 03/20/2025 Treatment [facility] [address] [phone] Jeffy Tineo MD End stage renal disease; Dependence on renal dialysis 03/19/2025 Refill [facility] [address] [phone] Jeffy Tineo MD 03/13/2025 Treatment [facility] [address] [phone] Jeffy Tineo MD End stage renal disease; Dependence on renal dialysis 03/06/2025 Treatment [facility] [address] [phone] Jeffy Tineo MD End stage renal disease; Dependence on renal dialysis 02/27/2025 [facility] [address] [place] [phone] Jeffy Tineo MD End stage renal disease; Dependence on renal dialysis 02/20/2025 [facility] [address] [phone] Jeffy Tineo MD End stage renal disease; Dependence on renal dialysis 02/15/2025 Treatment [facility] [place] [phone] [phone] Jeffy Tineo MD End stage [...] Procedure Name Priority Date/Time Associated Diagnosis Comments FERRITIN Routine 04/26/2025 3:00 AM EST PROTEIN, TOTAL, SERUM Routine 04/26/2025 3:00 AM EST TRANSFERRIN SATURATION Routine 3:00 AM EST LIH (HC) Routine 04/26/2025 3:00 AM EST MAGNESIUM Routine 04/26/2025 3:00 AM EST ELECTROLYTE PANEL Routine 04/26/2025 3: 00 AM EST LACTATE DEHYDROGENASE Routine 04/26/2025 3:00 AM EST GLUCOSE, RANDOM Routine 04/26/2025 3:00 AM EST CREATININE, SERUM Routine 04/26/2025 3:0 0 AM EST BUN/CREATININE RATIO Routine 04/26/2025 3:00 AM EST BILIRUBIN, TOTAL Routine 04/26/2025 3:00 AM EST AST Routine 04/26/2025 3:00 AM EST ALT Routine 04/26/2025 3:00 AM EST ALKALINE PHOSPHATASE Routine 04/26/2025 3:00 AM EST CALCIUM PHOSPHORUS PRODUCT, ADJUSTED (HC) Routine 04/26/2025 3:00 AM EST KT/V NATURAL LOG, URR (HC) Routine 04/26/2025 3:00 AM EST CBC AND DIFFERENTIAL Routine 04/26/2025 3:00 AM EST HEMOGLOBIN Routine 04/14/2025 3:00 AM EST HEMOGLOBIN [...] EDT HEMOGLOBIN Routine 02/10/2025 3:00 AM EDT from Last 3 Months Results * LIH (04/26/2025 3:00 AM EST) Only the most recent of5 resultswithin the time period is included. Lipemia Normal Normal [facility] Icterus Normal Normal [facility] Hemolysis Normal Normal [facility] 04/26/2025 3:00 AM EST 04/27/2025 5:53 PM EST Jeffy Tineo MD LAB [id number] SOLICITED RESULTS Final Result Performing Organization Address [facility] Co de Phone Number [facility] [address] [place] [address] * (ABNORMAL) Kt/V Natural Log, URR (04/26/2025 3:00 AM EST) Only the most recent of3 resultswithin the time period is included. Treatment Time 211 min [facility] Pre-Weight, lb 96.4 kg [facility] Post-Weight, lb 94.3 kg [facility] Ultrafiltration Rate 6 <=13 mL/kg/hr [facility] Comment: Recommend achieving Ultrafiltration Rate (UFR) <=10 mL/kg/hr References: Charley TODD et al. Kidney Int. 2010; 79(2):250-257 BUN 47(H) 7 - 25 mg/dL [facility] BUN Post Dialysis 11 7 - 25 mg/dL [facility] UREA REDUCTION RATIO (%) 77 >=65 % [facility] Kt/V Natural Log 1.65 >=1.2 [facility] 04/26/2025 3:00 AM EST 04/27/2025 5:53 PM EST Jeffy Tineo MD LAB [id number] SOLICITED RESULTS Final Result Performing Organization Address [facility] de Phone Number [facility] [address] [place] [address] * (ABNORMAL) Calcium Phosphorus Product, Adjusted (04/26/2025 3:00 AM EST) Only the most recent of3 resultswithin the time period is included. Albumin 4.1 3.6 - 5.4 g/dL [facility] Calcium 10.0 8.6 - 10.3 mg/dL [facility] Phosphorus, Serum 5.5(H) 2.5 - 5.0 mg/dL [facility] Ca*PO4 55.0(A) <55.0 mg2/dL2 [facility] Calcium, Adjusted Total 10.0 8.6 - 10.3 mg/dL [facility] CA*PO4 CORRCTD 55.0(A) <55.0 mg2/dL2 [facility] 04/26/2025 3:00 AM EST 04/27/2025 5:53 PM EST Jeffy Tineo MD LAB [id number] SOLICITED RESULTS Final Result Performing Organization Address [facility] de Phone Number [facility] [address] [place] [address] * BUN/CREATININE RATIO (04/26/2025 3:00 AM EST) Only the most recent of3 resultswithin the time period is included. Pathologist [facility] BUN/Creatinine Ratio 5.9 <=23.0 [facility] 04/26/2025 3:00 AM EST 04/27/2025 5:53 PM EST Jeffy Tineo MD LAB [id number] SOLICITED RESULTS Final Result Performing Organization Address [facility] de Phone Number [facility] [address] [place] [address] * (ABNORMAL) TSAT (04/26/2025 3:00 AM EST) Only the most recent of3 resultswithin the time period is included. Pathologist [facility] Iron 77 50 - 170 ug/dL [facility] Transferrin 163(L) 250 - 380 mg/dL [facility] TIBC 228 211 - 406 ug/dL [facility] Iron Saturation (TSat) 34 22 - 52 % [facility] 04/26/2025 3:00 AM EST 04/27/2025 5:53 PM EST us Jeffy Tineo MD LAB BLOOD ORDERABLES Final Re sult Performing Organization Address [facility] de Phone Number [facility] [address] [place] [address] * (ABNORMAL) CBC and Differential (04/26/2025 3:00 AM EST) Only the most recent of3 resultswithin the time period is included. Pathologist [facility] DIFFERENTIAL MANUAL, 2 Not Indicated [facility] White Blood Cells 9.2 4.0 - 10.0 K/uL [facility] RBC 3.21(L) 3.93 - 5.22 M/uL [facility] Hgb 10.6(L) 11.2 - 15.7 g/dL [facility] Hemoglobin x 3 31.8(L) 33.6 - 47.1 g/dL [facility] Hematocrit 31.1(L) 34.1 - 44.9 % [facility] MCV 96.9(H) 79.4 - 94.8 fL [facility] MCH 33.0(H) 25.6 - 32.2 pg [facility] MCHC 34.1 32.2 - 35.5 g/dL [facility] RDW 13.2 11.7 - 14.4 % [facility] Platelets 225 182 - 369 K/uL [facility] MPV 12.2 9.2 - 12.8 fL [facility] Neutrophils Relative 73.3(H) 34.0 - 71.1 % [facility] Lymphocytes Relative 15.6(L) 19.3 - 51.7 % [facility] Monocytes 5.6 4.7 - 12.5 % [facility] Eosinophils Relative 4.2 0.7 - 5.8 % [facility] Basophils Relative 0.9 0.1 - 1.2 % [facility] Immature Granulocytes 0.4 0.0 - 1.0 % [facility] 04/26/2025 3:00 AM EST 04/27/2025 6:10 PM EST Jeffy Tineo MD LAB BLOOD ORDERABLES Final Re sult Performing Organization Address City/[facility] Co de Phone Number [facility] [address] [place] [address] * ALT (04/26/2025 3:00 AM EST) Only the most recent of3 resultswithin the time period is included. Pathologist [facility] ALT (SGPT) 18 10 - 49 U/L [facility] 04/26/2025 3:00 AM EST 04/27/2025 5:53 PM EST Jeffy Tineo MD LAB BLOOD ORDERABLES Final Re sult Performing Organization Address City/[facility] de Phone Number [facility] [address] [place] [address] * AST (04/26/2025 3:00 AM EST) Only the most recent of3 resultswithin the time period is included. AST (SGOT) 16 <34 U/L [facility] 04/26/2025 3:00 AM EST 04/27/2025 5:53 PM EST Jeffy Tineo MD LAB BLOOD ORDERABLES Final Re sult Performing Organization Address [facility] de Phone Number [facility] [address] [place] [address] * Protein, total (04/26/2025 3:00 AM EST) Only the most recent of3 resultswithin the time period is included. Total Protein 7.6 6.4 - 8.9 g/dL [facility] 04/26/2025 3:00 AM EST 04/27/2025 5:53 PM EST us Jeffy Tineo MD LAB BLOOD ORDERABLES Final Re sult Performing Organization Address [facility] de Phone Number [facility] [address] [place] [address] * (ABNORMAL) Alkaline phosphatase (04/26/2025 3:00 AM EST) Only the most recent of3 resultswithin the time period is included. Alkaline Phosphatase 130(H) 46 - 116 U/L [facility] 04/26/2025 3:00 AM EST 04/27/2025 5:53 PM EST us Jeffy Tineo MD LAB BLOOD ORDERABLES Final Re sult Performing Organization Address [facility] de Phone Number [facility] [address] [place] [address] * Magnesium (04/26/2025 3:00 AM EST) Only the most recent of3 resultswithin the time period is included. Magnesium 2.3 1.9 - 2.7 mg/dL [facility] 04/26/2025 3:00 AM EST 04/27/2025 5:53 PM EST us Jeffy Tineo MD LAB BLOOD ORDERABLES Final Re sult Performing Organization Address [facility] de Phone Number [facility] [address] [place] [address] * (ABNORMAL) Lactate dehydrogenase (04/26/2025 3:00 AM EST) Only the most recent of3 resultswithin the time period is included. LDH 318(H) 120 - 246 U/L [facility] 04/26/2025 3:00 AM EST 04/27/2025 5:53 PM EST Jeffy Tineo MD LAB BLOOD ORDERABLES Final Re sult Performing Organization Address [facility] de Phone Number [facility] [address] [place] [address] * (ABNORMAL) Glucose, random (04/26/2025 3:00 AM EST) Only the most recent of3 resultswithin the time period is included. Glucose 222(H) 70 - 99 mg/dL [facility] Comment: ADA guidelines outline the following fasting glucose ranges: Normal: <100 Prediabetes: 100-125 Diabetes: >125 04/26/2025 3:00 AM EST 04/27/2025 5:53 PM EST us Jeffy Tineo MD LAB BLOOD ORDERABLES Final Re sult Performing Organization Address [facility] de Phone Number [facility] [address] [place] [address] * (ABNORMAL) Ferritin (04/26/2025 3:00 AM EST) Only the most recent of3 resultswithin the time period is included. Ferritin 1,801(H) 10 - 291 ng/mL [facility] 04/26/2025 3:00 AM EST 04/27/2025 5:53 PM EST us Jeffy Tineo MD LAB BLOOD ORDERABLES Final Re sult Performing Organization Address [facility] Co de Phone Number [facility] [address] [place] [address] * (ABNORMAL) Creatinine, serum (04/26/2025 3:00 AM EST) Only the most recent of3 resultswithin the time period is included. Creatinine 7.98(H) 0.55 - 1.02 mg/dL [facility] 04/26/2025 3:00 AM EST 04/27/2025 5:53 PM EST Jeffy Tineo MD LAB BLOOD ORDERABLES Final Re sult Performing Organization Address [facility] de Phone Number [facility] [address] [place] [address] * Bilirubin, total (04/26/2025 3:00 AM EST) Only the most recent of3 resultswithin the time period is included. Total Bilirubin 0.4 0.3 - 1.2 mg/dL [facility] 04/26/2025 3:00 AM EST 04/27/2025 5:53 PM EST Jeffy Tineo MD LAB BLOOD ORDERABLES Final Re sult Performing Organization Address [facility] de Phone Number [facility] [address] [place] [address] * (ABNORMAL) Electrolyte panel (04/26/2025 3:00 AM EST) Only the most recent of3 resultswithin the time period is included. Sodium 137 136 - 145 mEq/L [facility] Potassium 5.1(H) 3.4 - 5.0 mEq/L [facility] Chloride 97(L) 98 - 107 mEq/L [facility] Bicarbonate (CO2) 25 21 - 31 mEq/L [facility] Anion Gap 15(H) 3 - 14 mEq/L [facility] 04/26/2025 3:00 AM EST 04/27/2025 5:53 PM EST Jeffy Tineo MD LAB BLOOD ORDERABLES Final Re sult Performing Organization Address [facility] de Phone Number [facility] [address] [place] [address] * (ABNORMAL) Hemoglobin (04/14/2025 3:00 AM EST) Only the most recent of2 resultswithin the time period is included. Hgb 10.2(L) 11.2 - 15.7 g/dL [facility] Hemoglobin x 3 30.6(L) 33.6 - 47.1 g/dL [facility] 04/14/2025 3:00 AM EST 04/15/2025 12:51 PM EST Jeffy Tineo MD LAB BLOOD ORDERABLES Final Re sult Performing Organization Address [facility] de Phone Number [facility] [address] [place] [address] * (ABNORMAL) Hemoglobin and hematocrit (04/12/2025 3:00 AM EST) Only the most recent of2 resultswithin the time period is included. Hgb 9.9(L) 11.2 - 15.7 g/dL [facility] Hematocrit 30.1(L) 34.1 - 44.9 % [facility] Hemoglobin x 3 29.7(L) 33.6 - 47.1 g/dL [facility] 04/12/2025 3:00 AM EST 04/13/2025 1:39 PM EST Jeffy Tineo MD LAB BLOOD ORDERABLES Final Re sult Performing Organization Address [facility] de Phone Number [facility] [address] [place] [address] * PTH, Intact (03/29/2025 3:00 AM EST) Only the most recent of2 resultswithin the time period is included. PTH, Intact 485 160 - 721 pg/mL [facility] Comment: Suggested (KDIGO) ESRD maintenance range is two to nine times the upper normal limit (80.1 pg/mL) for the laboratory. 03/29/2025 3:00 AM EST 03/30/2025 12:07 PM EST us Jeffy Tineo MD LAB BLOOD ORDERABLES Final Re sult Performing Organization Address [facility] de Phone Number [facility] [address] [place] [address] * Calcium, Adjusted w Albumin (03/08/2025 3:00 AM EDT) Calcium 9.5 8.6 - 10.3 mg/dL [facility] Albumin 4.3 3.6 - 5.4 g/dL [facility] Calcium, Adjusted Total 9.5 8.6 - 10.3 mg/dL [facility] 03/08/2025 3:00 AM EDT 03/09/2025 1:12 PM EDT Result [facility] us Jeffy Tineo MD LAB BLOOD ORDERABLES Final Re sult Performing Organization Address [facility] de Phone Number [facility] [address] [place] [address] * (ABNORMAL) Hemoglobin A1c (02/22/2025 3:00 AM EDT) Hemoglobin A1C 10.2(H) <5.7 % [facility] Comment: Methodology: Enzymatic Normal: <5.7% Prediabetes: 5.7-6.4% Diabetes: >6.4% Diabetic Glucose Control Evaluation: Therapeutic action suggested at >8.0% ADA recommends a glycemic goal of <7.0% 02/22/2025 3:00 AM EDT 02/23/2025 1:39 PM EDT us Jeffy Tineo MD LAB BLOOD ORDERABLES Final Re sult Performing Organization Address [facility] Co de Phone Number [facility] [address] [place] [address] * (ABNORMAL) Lipid panel (02/22/2025 3:00 AM [...] ORDERABLES Final Re sult Performing Organization Address [facility] de Phone Number [facility] [address] [place] [address] * Potassium (02/15/2025 3:00 AM EDT) Potassium 4.5 3.4 - 5.0 mEq/L [facility] 02/15/2025 3:00 AM EDT 02/16/2025 1:16 PM EDT Jeffy Tineo MD LAB BLOOD ORDERABLES Final Re sult Performing Organization Address [facility] Co de Phone Number [facility] [address] [place] [address] from Last 3 Months Insurance Medicaid [place] Care Teams Aircraft Structure Mechanic Relationship Specialty Start Date End Date Ines Zamora MD [address] [place] [id number] PCP - General 06/04/20
[2025-05-11 22:28] LABS: Bacterial Vaginosis PCR NEGATIVE (Negative); Candida Group PCR NOT DETECTED (Not Detect); Candida glab krusei PCR DETECTED (Not Detect); Trichomonas vaginalis PCR NOT DETECTED (Not Detect)
== END 2025-05-11 16:37 | disposition home or self-care (01) ==
LOC: HO.HHCLNP 16:36
PROVIDERS: Visit Provider Internal Medicine
DX: N89.8 Other specified noninflammatory disorders of vagina (principal); Z20.2 Contact with and (suspected) exposure to infections with a predominantly sexual mode of transmission
CPT/HCPCS: 81515